=== PATIENT | female | born 1955 | race Caucasian/White ===

== ENCOUNTER → 2020-02-27 12:01 | Outpatient (BNVA) | payer OTHER, SELFPAY | PROVIDERS: PCP Internal Medicine; Referring Provider Internal Medicine; Visit Provider Nurse Practitioner Family | DX: I25.10 Atherosclerotic heart disease of native coronary artery without angina pectoris (principal); I42.9 Cardiomyopathy, unspecified; I11.0 Hypertensive heart disease with heart failure; I50.22 Chronic systolic (congestive) heart failure; E78.5 Hyperlipidemia, unspecified; E11.9 Type 2 diabetes mellitus without complications; Z79.899 Other long term (current) drug therapy; Z45.02 Encounter for adjustment and management of automatic implantable cardiac defibrillator; Z95.1 Presence of aortocoronary bypass graft; Z95.5 Presence of coronary angioplasty implant and graft | CPT/HCPCS: 93005; 99212 ==

== ENCOUNTER → 2020-04-25 12:38 | Outpatient (REF) | payer OTHER, SELFPAY ==
--- NOTE | 2020-04-25 12:43 | CA_ITS ---
Transthoracic Echocardiogram Patient (Last, First, Middle): La Nena Castro M Gender: Female Date of : 1955 Age: 65 Procedure Date: 04/25/2020 Procedure Type: Transthoracic Echocardiogram Location: OP Height: 149.86 cm Weight: 99.34 kg BSA: 1.92 m2 Heart Rate: bpm BP: 122 / 80 mmHg Field Sales Engineer: GRZEGORZ Referring MD: Mariel Arellano [employer]ING WORKER-C Symptoms: I42.9 - Cardiomyopathy, unspecified Study Quality: Fair/Contrast ECG Rhythm: Sinus Conclusions: - The left ventricular systolic function is moderately decreased. The visually estimated ejection fraction is between 30-35%. - Evidence suggests grade II (moderate) diastolic dysfunction. - There is moderate aortic valve stenosis. The peak aortic velocity is 2.17 m/s with a calculated peak gradient of 19 mmHg. The mean gradient is 10 mmHg. The aortic valve area is 1.07 cm2. There is no aortic valve regurgitation. Dimensionless index 0.31. Stroke volume index 26ml/m2. Lower than expected gradients from diminished stroke volume. - Mild pulmonary hypertension is present. Findings Procedure Information Contrast agent, definity, is being given per protocol without apparent complications. Left Ventricle Normal left ventricular cavity size. There is mildly increased left ventricular wall thickness. The left ventricular systolic function is moderately decreased. The visually estimated ejection fraction is between 30 35%. There is moderate global hypokinesis. E/E prime ratio is >15, consistent with elevated filling pressures. Evidence suggests grade II (moderate) diastolic dysfunction. Right Ventricle Normal right ventricular cavity size and systolic function. There is a pacemaker wire seen in the right ventricle. Atria The left atrium is mildly dilated. The right atrium is normal in size. Aortic Valve The aortic valve was not well visualized. There is mild calcification of the aortic valve. There is moderate aortic valve stenosis. The peak aortic velocity is 2.17 m/s with a calculated peak gradient of 19 mmHg. The mean gradient is 10 mmHg. The aortic valve area is 1.07 cm2. There is no aortic valve regurgitation. Dimensionless index 0.31. Stroke volume index 26ml/m2. Mitral Valve There is mild mitral annular calcification. There is no mitral valve regurgitation. There is no mitral valve stenosis. Pulmonic Valve The pulmonic valve was not well visualized. Tricuspid Valve Normal tricuspid valve structure. There is mild tricuspid valve regurgitation. The right ventricular systolic pressure is 36 mmHg. Mild pulmonary hypertension is present. Great Vessels The aortic annulus, sinuses of valsalva, and asc aorta are normal in size. Venous The inferior vena cava is normal in size and collapses greater than 50% with inspiration. Pericardium/Pleural There is no evidence of pericardial effusion. Prior Study Comparison Changes noted compared to prior study dated: 02/23/2019. See comments on aortic valve. Not previously described. Measurements 2D Linear Measurements IVSd: 1.10 0.6-0.9/0.6-1.0 cm LVIDd: 5.36 3.9-5.3/4.2-5.9 cm LVIDd Index: 2.79 2.4-3.2/2.2-3.1 cm/m2 LVIDs: 4.24 2.0-3.6 cm LVPWd: 1.11 0.7-1.1 cm Ao Root: 3.00 2.1-3.5 cm LA Diam: 3.70 2.7-3.8/3.0-4.0 cm LAIDs Index: 1.93 1.5-2.3 cm/m2 LV Mass: 291.00 67-162/88-224 g LV Mass Index: 151.56 43-95/49-115 g/m2 LVOT Diam: 2.00 3.0+(-)1.3 cm 2D Systolic Function EF 4C: 29.80 >55% EF 2C: 36.60 >55% EF BiP: 32.50 >55% Mitral Valve MV Pk E: 1.06 MV PK A: 0.88 MV Decel Time: 190.00 E/A: 1.20 E'Lateral: 3.00 E'Medial: 5.13 E/E' Med: 20.70 E/E' Lat: 35.30 PHT: 56.00 MVA PHT: 3.93 Decel [place]: 5.56 Aortic Valve AoV Pk Jaswinder: 2.17 AoV Mn Jaswinder: 1.44 AoV VTI: 0.47 AoV Pk Grad: 19.00 Aov Mn Grad: 10.00 DONNA Cont.VTI: 1.07 LVOT LVOT Pk Jaswinder: 0.67 LVOT Mn Jaswinder: 0.43 LVOT VTI: 0.16 LVOT Pk Grad: 2.00 LVOT Mn Grad: 1.00 LVOT Diam: 2.00 LVOT Area: 3.14 Diastolic Function MV Pk E: 1.06 MV Pk A: 0.88 E/A: 1.20 E'Medial: 5.13 E/E' Med: 20.70 E' Laterial: 3.00 E/E' Lat: 35.30 Tricuspid Valve TR Pk Jaswinder: 2.88 TR Pk Grad: 33.00 RA Press: 3.00 RVSP: 36.00 Great Vessels Aorta Ao Root-2D: 3.00 2.0-3.7 cm Ao Asc: 2.50 2.1-3.4 cm Ao Arch: 2.70 Updated in Other Vendor System with Status of Final Korey Cazares MD electronically signed on 04/28/2020 1:45:34 PM with status of Final
== END ==
LOC: HO.CARD 12:38
PROVIDERS: PCP Internal Medicine; Visit Provider Nurse Practitioner Family
DX: I42.9 Cardiomyopathy, unspecified (principal)
CPT/HCPCS: 93306; Q9957

== ENCOUNTER → 2020-05-10 10:01 | Outpatient (BNVA) | payer OTHER, SELFPAY | PROVIDERS: PCP Internal Medicine; Visit Provider Nurse Practitioner Family | DX: I42.9 Cardiomyopathy, unspecified (principal); I25.10 Atherosclerotic heart disease of native coronary artery without angina pectoris; I50.22 Chronic systolic (congestive) heart failure; I11.0 Hypertensive heart disease with heart failure; E78.5 Hyperlipidemia, unspecified; E11.9 Type 2 diabetes mellitus without complications; I47.2 Ventricular tachycardia; Z95.5 Presence of coronary angioplasty implant and graft; Z95.810 Presence of automatic (implantable) cardiac defibrillator; Z95.1 Presence of aortocoronary bypass graft | CPT/HCPCS: 99212 ==

== ENCOUNTER → 2020-05-30 08:11 | Outpatient (REF) | payer OTHER, SELFPAY ==
--- NOTE | ~2020-05-30 | NM_ITS ---
Lexiscan Myocardial perfusion study Indication: History of coronary artery disease, bypass surgery, cardiomyopathy, assess for ischemia Technique: The patient was brought in for a Lexiscan perfusion study on 05/30/2020 and was injected 0.4 mg of Lexiscan intravenously. Within a minute of this injection 30 mCi of sestamibi was given intravenously. Images were obtained using the SPECT gamma camera interlaced with the gating device. Images were obtained in supine position. Resting perfusion study was performed on 06/21/2020. Patient was administered 30 mCi of sestamibi intravenously at rest. Images were then obtained in supine position. Total DLP 94mGy-cm. Images were processed with the software and compared side to side in short axis, horizontal long axis and vertical long axis views. Findings: Raw acquisition was reviewed. The stress perfusion study showed diminished tracer uptake along the inferior wall and the inferior apex. With CT attenuation correction, there is improvement in this area but the apical defect still persists. The gated study shows diminished LV systolic function with calculated LVEF of 21%. LV cavity is dilated in size. The gated study shows globally diminished wall thickening and contraction of segments. Resting study shows diminished tracer uptake along the distal part of anterior wall as well as mid to distal inferior/inferolateral wall. With CT attenuation correction these areas improves significantly, suggestive of attenuation artifact. Gating at rest reveals globally reduced wall motion with ejection fraction at 23%. The findings are consistent with no reversible defects. Small, fixed apical defect. NM/NM flaco perf SPECT rest & str Impression: 1. Myocardial perfusion imaging study shows no evidence of any ischemia. Small fixed defect in the apex that could be from a prior infarct. 2. Gated LVEF is 21% during stress and 23% during rest. 3. Transient ischemic dilatation not present but LV cavity is dilated. EKG component of the test reported separately.
--- NOTE | 2020-05-30 08:26 | CA_ITS ---
Acquisition Time: 2020-05-30 08:59:22 Total Exercise Time: 00:02:00 Test Indications: Abnormal ECG Medications: ATORVASTATIN CARVEDILOL FUROSEMIDE LISINOPRIL HYPERLIPIDEMIA Protocol: LEXISCAN Max HR: 104 BPM 67% of Pred: 154 BPM Max BP: 142/082 mmHG Max Work Load: 1.0 METS Pharmacological stress test with Lexiscan injection, while sitting, with chest pressure post injection, with isolated PVC, with normotensvie response to injection, with nondiagnostic EKG for ischemia. In recovery she reported residual mild chest pressure and was treated with Aminophylline 75mg IVP to reverse Lexiscan with improvement in symptom. Nuclear images pending. Test reviewed with Dr Martino. Referred By: Mariel Arellano Overread By: MARIEL ARELLANO
[2020-05-30 09:26] LABS: B Type Natriuretic Peptide 670 pg/mL (<100)
[2020-05-30 09:28] LABS: Anion Gap 17 (12-20); Blood Urea Nitrogen 18 mg/dL (9-16); Carbon Dioxide 24 mmol/L (22-29); Chloride 108 mmol/L (96-108); Estimated Glomerular Filt Rate 49; Glucose Random 140 mg/dL (60-115); Magnesium 2.1 mg/dL (1.6-2.6); Potassium 4.6 mmol/L (3.3-5.1); Sodium 144 mmol/L (135-145)
== END ==
LOC: HO.CARD 08:11
PROVIDERS: PCP Internal Medicine; Visit Provider Nurse Practitioner Family
DX: I42.9 Cardiomyopathy, unspecified (principal); I47.2 Ventricular tachycardia; I50.22 Chronic systolic (congestive) heart failure
CPT/HCPCS: 36415; 78452; 80048; 83735; 83880; 93017; A9500; J0280; J2785

== ENCOUNTER → 2020-06-26 10:46 | Outpatient (BNVA) | payer OTHER, SELFPAY | PROVIDERS: Visit Provider Nurse Practitioner Family | DX: I10 Essential (primary) hypertension (principal); E11.9 Type 2 diabetes mellitus without complications; Z95.1 Presence of aortocoronary bypass graft | CPT/HCPCS: Q3014 ==

== ENCOUNTER 2020-07-21 20:59 | Inpatient (IN) | payer OTHER, SELFPAY ==
--- NOTE | ~2020-07-21 | XR_ITS ---
EXAMINATION: XR CHEST CLINICAL INFORMATION: Shortness of breath COMPARISON: 04/07/2018 TECHNIQUE: Frontal view of the chest was obtained. FINDINGS: Again seen is mild cardiomegaly and a 3-lead pacemaker. Previously, only a single lead has been present. There are new bilateral small effusions and new prominent interstitial markings throughout with some more focal areas of patchy density present at the right and left lung base. The 1.9 cm patchy density at the right lung base appears slightly nodular in appearance XR/XR chest 1V IMPRESSION: Cardiomegaly with small bilateral pleural effusions and increased interstitial markings suggesting CHF and mild interstitial edema. Bibasilar opacities could be superimposed infiltrates. Rounded area of abnormality at right lung base needs to be followed on future radiographs (in 4-6 weeks) for clearing.
--- NOTE | ~2020-07-21 | CT_ITS ---
EXAMINATION: CT CHEST WITHOUT CONTRAST CLINICAL INFORMATION: Shortness breath. Concern for infiltrates. Follow-up abnormal exam. COMPARISON: 07/21/2020. TECHNIQUE: Contiguous axial thin section helical images of the chest were performed without contrast. The data set was reformatted in the coronal and sagittal planes and reviewed on an independent workstation. The examination is significantly limited due to the lack of IV contrast. DLP: 346 mGy-cm. FINDINGS: The examination is significantly limited due to the lack of IV contrast. The heart is of stable size with unchanged pacer leads. There is no pericardial effusion. There is a pretracheal lymph node on image 22/66 measuring approximately 15 mm in short axis with a fatty notch. Evaluation for hilar lymphadenopathy is significantly limited due to the lack of IV contrast. No enlarged axillary lymph nodes are demonstrable. There are no chest wall masses. Review of lung windows demonstrates that there are small bilateral pleural effusions. There are no pneumothoraces. There is nonspecific ground glass opacification within the right middle lobe and both lower lobes. Images of the upper abdomen demonstrate that the liver is of normal size and attenuation without focal lesions. Normal adrenal glands are identified. Bone windows: Neither sclerotic nor lytic bone lesions are identified. CT/CT chest wo con IMPRESSION: As stated above, significantly limited exam due to the lack of IV contrast. Small bilateral pleural effusions with nonspecific bilateral lower lobe and right middle lobe ground glass opacification. Enlarged lower pretracheal lymph node, though a fatty hilar notch is demonstrable. Automated exposure control (Care Dose) Adjustment of the mA and/or kv according to patient size (this includes techniques or standardized protocols for targeted exams where dose is matched to indication / reason for exam; i.e. extremities or head).
[2020-07-21 21:09] VITALS: BP 183/81; BP 183/92; PULSE 87; PULSE 90; RESP 18; TEMP 37.4; O2SAT 90; O2SAT 92; BMI 43.7
--- NOTE | 2020-07-21 21:18 | ED.SOB ---
HPI - SOB/Dyspnea General Chief Complaint: Dyspnea Stated Complaint: Diff breathing,HTN Time Seen by Provider: 07/21/20 21:16 Source: patient Mode of arrival: EMS History of Present Illness HPI Narrative: This is a 65-year-old female who presents via EMS for increasing shortness of breath over the past couple of days and denies any associated fevers, chills, cough, sore throat, COVID-19 exposure, chest pain/palpitations. Patient states that she has COPD and denies history of CHF (although on review of medications patient is prescribed Lasix). Patient denies any orthopnea or increase in bilateral lower leg swelling. Review of echo on 04/25/2020 shows EF 30-35% as well as grade 2 diastolic dysfunction. Patient is not on home oxygen but EMS stated that patient was low 90% upon arrival. Patient denies use of home oxygen but does wear CPAP at night. Related Data Home Medications Medication Instructions Recorded Confirmed atorvastatin 80 mg tablet 80 mg PO DAILY 02/27/20 07/21/20 furosemide 20 mg tablet 20 mg PO DAILY 02/27/20 07/21/20 insulin aspart U-100 100 unit/mL 4 - 16 unit SUBCUT TID 06/26/20 07/21/20 (3 mL) subcutaneous pen citalopram 20 mg PO DAILY 07/21/20 07/21/20 insulin glargine 25 unit SUBCUT BEDTIME 07/21/20 07/21/20 ipratropium-albuterol [Combivent 1 puff INHALATION QID PRN 07/21/20 07/21/20 Respimat] Previous Rx's Medication Instructions Recorded rivaroxaban 20 mg tablet 20 mg PO DAILY 90 Days #90 tab 02/27/20 carvedilol 25 mg tablet 25 mg PO BID 90 Days #180 tab 03/29/20 lisinopril 5 mg tablet 5 mg PO DAILY 90 Days #90 tab 06/07/20 Allergies Allergy/AdvReac Type Severity Reaction Status Date / Time No Known Allergies Allergy Unverified 01/12/20 14:55 Review of Systems Review of Systems: Pertinent positives and negatives as stated in HPI 10 point review of systems is otherwise negative. PMFSH Past Medical History Source: nursing notes reviewed Medical History Biventricular ICD (implantable cardioverter-defibrillator) in place CAD (coronary artery disease) Cardiomyopathy Chronic systolic heart failure Diabetes mellitus HLD (hyperlipidemia) HTN (hypertension) TAQUERIA (obstructive sleep apnea) Surgical History History of cardiac cath History of cholecystectomy Hx of appendectomy Hx of CABG Hx of cardiac cath Hx of cardiac cath Stented coronary artery Family History Family History Father No problems noted. Mother No problems noted. Social History Social History Alcohol intake: never Smoking Status: Former smoker Use of substances other than those prescribed or required for medical reasons: No Advance Directives: No Advance Directives Information Provided: Yes Physical Exam Vital Signs: Vital Signs: Last Vital Signs Temp 97.6 F 07/21/20 23:38 Pulse 78 07/21/20 23:38 Resp 20 07/21/20 23:38 BP 155/87 H 07/21/20 23:38 Pulse Ox 97 07/21/20 23:38 Body Mass Index 43.7 VITAL SIGNS: Reviewed. GENERAL: Well developed, well nourished, in no acute distress. HEAD: Normocephalic/atraumatic NOSE: Nares patent bilateral OROPHARYNX: no oral lesions noted, posterior pharynx clear , dry mucous NECK: Supple, no adenopathy LUNGS: Mild bilateral expiratory wheeze with questionable rales, tachypnea noted with mild increased work of breathing and nasal cannula in place Normal breath sounds. No adventitious sounds or accessory muscle use. SpO2<92> on 2 L of nasal cannula CARDIOVASCULAR: Regular rate and rhythm without noted murmurs, no JVD but mild bilateral lower leg 1+ pitting edema ABDOMEN: Obese, Soft, non-tender, non-distended with bowel sounds. MUSCULOSKELETAL: No tenderness, deformities, or effusions noted on gross inspection. EXTREMITIES: No cyanosis, clubbing or edema. SKIN: Inspection of the skin reveals no rashes, ulcerations, jaundice, pallor, or petechiae. NEUROLOGIC: Alert and oriented x 4. Course Course Course Narrative: This is a 65-year-old female with history and clinical presentation consistent with increasing dyspnea suggestive COPD exacerbation versus CHF and COVID-19/pneumonia are on the differential as well. - labs, chest x-ray, UA, Solu-Medrol, albuterol, Lasix Review of all investigations suggestive of CHF exacerbation and 40 mg of Lasix was provided. Due to questionable infiltrates on chest x-ray patient will undergo COVID-19 testing as well as CT of chest to further evaluate chest x-ray findings. Patient was also empirically treated on arrival for COPD exacerbation with steroids and inhaler treatment. There is noted increase in LFTs felt to be secondary to heart failure. Although the right bundle branch block was not noted on EKG comparison from 2018 is felt that this is not a new finding given patient's recent workup with Lexiscan and multiple device checks conducted by the Cardiology Department, unfortunately there were no more recent EKG comparisons. High sensitivity troponin is pending the patient has no complaints of chest pain or palpitations. This case was discussed with the inpatient hospitalist who is agreeable for admission. MDM - SOB/Dyspnea Lab Data Result diagrams: 07/21/20 21:55 07/21/20 21:55 Labs: Lab Results 07/21/20 07/21/20 07/21/20 Range/Units 21:55 21:55 21:55 WBC 11.2 H (4.8-10.8) X10*3/uL RBC 5.05 (4.20-5.50) X10*6/uL Hgb 15.3 (12.0-16.0) g/dl Hct 47.6 H (37-47) % MCV 94.3 (80-98) fL MCH 30.3 (27.0-33.0) pg MCHC 32.1 (31.0-35.0) g/dl RDW 16.2 H (11.0-16.0) % Plt Count 132 L (160-400) X10*3/uL MPV 12.3 (9.4-12.3) fL Immature Gran % (Auto) 0.4 (0.0-0.4) % Neut % (Auto) 66.5 (45-73) % Lymph % (Auto) 26.5 (20-40) % Garden % (Auto) 4.4 (2-11) % Eos % (Auto) 1.6 (0-4) % Baso % (Auto) 0.6 (0-2) % Lymph # (Auto) 3.0 (1.2-4.9) X10*3/uL [place] # (Auto) 0.5 (0.1-1.2) X10*3/uL Eos # (Auto) 0.2 (0.0-0.4) X10*3/uL Baso # (Auto) 0.1 (0.0-0.2) X10*3/uL Abs Immat Gran (auto) 0.04 H (0.00-0.03) X10*3/uL Absolute Neuts (auto) 7.5 (2.0-8.3) X10*3/uL Absolute Nucleated RBC 0.000 (0.0-0.012) X10*3/uL Nucleated RBC % (auto) 0.0 (0.0-0.2) /100WBC VBG pH (7.32-7.43) VBG pCO2 mmHg VBG pO2 mmHg VBG HCO3 (22-26) mmol/L VBG O2 Saturation % VBG Base Excess mmol/L Sodium 141 (135-145) mmol/L Potassium 3.8 (3.3-5.1) mmol/L Chloride 107 (96-108) mmol/L Carbon Dioxide 22 (22-29) mmol/L Anion Gap 16 (12-20) BUN 19 H (9-16) mg/dL Creatinine 0.84 (0.5-1.4) mg/dL Estim Creat Clear Calc 67.8 Estimated GFR > 60 Random Glucose 231 H D (60-115) mg/dL Lactic Acid (0.5-2.0) mmol/L Calcium 8.8 (8.4-10.2) mg/dL Total Bilirubin 1.9 H (0.0-1.0) mg/dL AST 33 H (5-31) U/L ALT 48 H (0-31) U/L Alkaline Phosphatase 126 H (39-117) U/L B-Natriuretic Peptide 1425 H (<100) pg/mL Total Protein 6.9 (6.5-8.0) g/dL Albumin 4.2 (3.5-5.0) g/dL Urine Color Urine Appearance Urine pH (5.0-8.0) Ur Specific [place] (1.005-1.025) Urine Protein (NEG-TRACE) MG/DL Urine Glucose (UA) (NEG) MG/DL Urine Ketones (NEG) MG/DL Urine Blood (NEG) Urine Nitrite (NEG) Ur Leukocyte Esterase (NEG) Urine RBC (0) /HPF Urine WBC (0-4) /HPF Ur Squamous Epith Cells /LPF Urine Bacteria /LPF Coronavirus (PCR) Influenza Type A (PCR) Influenza Type B (PCR) RSV RNA Qual (PCR) 07/21/20 07/21/20 07/21/20 Range/Units 21:56 21:56 22:32 WBC (4.8-10.8) X10*3/uL RBC (4.20-5.50) X10*6/uL Hgb (12.0-16.0) g/dl Hct (37-47) % MCV (80-98) fL MCH (27.0-33.0) pg MCHC (31.0-35.0) g/dl RDW (11.0-16.0) % Plt Count (160-400) X10*3/uL MPV (9.4-12.3) fL Immature Gran % (Auto) (0.0-0.4) % Neut % (Auto) (45-73) % Lymph % (Auto) (20-40) % Garden % (Auto) (2-11) % Eos % (Auto) (0-4) % Baso % (Auto) (0-2) % Lymph # (Auto) (1.2-4.9) X10*3/uL [place] # (Auto) (0.1-1.2) X10*3/uL Eos # (Auto) (0.0-0.4) X10*3/uL Baso # (Auto) (0.0-0.2) X10*3/uL Abs Immat Gran (auto) (0.00-0.03) X10*3/uL Absolute Neuts (auto) (2.0-8.3) X10*3/uL Absolute Nucleated RBC (0.0-0.012) X10*3/uL Nucleated RBC % (auto) (0.0-0.2) /100WBC VBG pH (7.32-7.43) VBG pCO2 mmHg VBG pO2 mmHg VBG HCO3 (22-26) mmol/L VBG O2 Saturation % VBG Base Excess mmol/L Sodium (135-145) mmol/L Potassium (3.3-5.1) mmol/L Chloride (96-108) mmol/L Carbon Dioxide (22-29) mmol/L Anion Gap (12-20) BUN (9-16) mg/dL Creatinine (0.5-1.4) mg/dL Estim Creat Clear Calc Estimated GFR Random Glucose (60-115) mg/dL Lactic Acid 1.5 (0.5-2.0) mmol/L Calcium (8.4-10.2) mg/dL Total Bilirubin (0.0-1.0) mg/dL AST (5-31) U/L ALT (0-31) U/L Alkaline Phosphatase (39-117) U/L B-Natriuretic Peptide (<100) pg/mL Total Protein (6.5-8.0) g/dL Albumin (3.5-5.0) g/dL Urine Color YELLOW Urine Appearance HAZY Urine pH 6.5 (5.0-8.0) Ur Specific [place] 1.015 (1.005-1.025) Urine Protein 1+ H (NEG-TRACE) MG/DL Urine Glucose (UA) 250 H (NEG) MG/DL Urine Ketones NEG (NEG) MG/DL Urine Blood 1+ H (NEG) Urine Nitrite NEG (NEG) Ur Leukocyte Esterase NEG (NEG) Urine RBC 1-4 (0) /HPF Urine WBC 0-2 (0-4) /HPF Ur Squamous Epith Cells TRACE /LPF Urine Bacteria 4+ /LPF Coronavirus (PCR) Cancelled Influenza Type A (PCR) Cancelled Influenza Type B (PCR) Cancelled RSV RNA Qual (PCR) Cancelled 07/21/20 07/21/20 Range/Units 22:56 23:51 WBC (4.8-10.8) X10*3/uL RBC (4.20-5.50) X10*6/uL Hgb (12.0-16.0) g/dl Hct (37-47) % MCV (80-98) fL MCH (27.0-33.0) pg MCHC (31.0-35.0) g/dl RDW (11.0-16.0) % Plt Count (160-400) X10*3/uL MPV (9.4-12.3) fL Immature Gran % (Auto) (0.0-0.4) % Neut % (Auto) (45-73) % Lymph % (Auto) (20-40) % Garden % (Auto) (2-11) % Eos % (Auto) (0-4) % Baso % (Auto) (0-2) % Lymph # (Auto) (1.2-4.9) X10*3/uL [place] # (Auto) (0.1-1.2) X10*3/uL Eos # (Auto) (0.0-0.4) X10*3/uL Baso # (Auto) (0.0-0.2) X10*3/uL Abs Immat Gran (auto) (0.00-0.03) X10*3/uL Absolute Neuts (auto) (2.0-8.3) X10*3/uL Absolute Nucleated RBC (0.0-0.012) X10*3/uL Nucleated RBC % (auto) (0.0-0.2) /100WBC VBG pH 7.41 (7.32-7.43) VBG pCO2 40 mmHg VBG pO2 62 mmHg VBG HCO3 25 (22-26) mmol/L VBG O2 Saturation 91.0 % VBG Base Excess 1.4 mmol/L Sodium (135-145) mmol/L Potassium (3.3-5.1) mmol/L Chloride (96-108) mmol/L Carbon Dioxide (22-29) mmol/L Anion Gap (12-20) BUN (9-16) mg/dL Creatinine (0.5-1.4) mg/dL Estim Creat Clear Calc Estimated GFR Random Glucose (60-115) mg/dL Lactic Acid (0.5-2.0) mmol/L Calcium (8.4-10.2) mg/dL Total Bilirubin (0.0-1.0) mg/dL AST (5-31) U/L ALT (0-31) U/L Alkaline Phosphatase (39-117) U/L B-Natriuretic Peptide (<100) pg/mL Total Protein (6.5-8.0) g/dL Albumin (3.5-5.0) g/dL Urine Color Urine Appearance Urine pH (5.0-8.0) Ur Specific [place] (1.005-1.025) Urine Protein (NEG-TRACE) MG/DL Urine Glucose (UA) (NEG) MG/DL Urine Ketones (NEG) MG/DL Urine Blood (NEG) Urine Nitrite (NEG) Ur Leukocyte Esterase (NEG) Urine RBC (0) /HPF Urine WBC (0-4) /HPF Ur Squamous Epith Cells /LPF Urine Bacteria /LPF Coronavirus (PCR) NEGATIVE Influenza Type A (PCR) NEGATIVE Influenza Type B (PCR) NEGATIVE RSV RNA Qual (PCR) NEGATIVE ECG Data Attestation: I personally reviewed and interpreted this ECG as follows: Prior ECG tracings: available for review (04/07/2018) Interpretation: Sinus rhythm, HR I 91, right bundle-branch block Discharge Plan Discharge Clinical Impression: Hypoxia Congestive heart failure Qualifiers: Heart failure type: combined systolic and diastolic Heart failure chronicity: acute Qualified Code(s): I50.41 - Acute combined systolic (congestive) and diastolic (congestive) heart failure Patient Disposition: Admitted As Inpatient
--- NOTE | 2020-07-21 21:45 | PC.NURSE ---
pt wished to ambulate to bathroom, this nurse ambulated patient with O2 tank to bathroom- pt was CLEMENT, urine obtained, patient ambulated back to room and had to stop while ambulating back to room due to CLEMENT, patient returned back to bed and was able to recover quickly- her O2 sat was 94% on 2L O2 NC even with the CLEMENT. Patient was paced in the 70s-80s on the monitoring tech, will continue to monitor.
--- NOTE | 2020-07-21 22:00 | PC.NURSE ---
labs drawn, pt medicated per order
[2020-07-21 22:04] LABS: MANUAL DIFF FLAG NO
[2020-07-21 22:05] LABS: Basophils Absolute Auto 0.1 X10*3/uL (0.0-0.2); Basophils Percent Auto 0.6 % (0-2); Eosinophils Absolute Auto 0.2 X10*3/uL (0.0-0.4); Eosinophils Percent Auto 1.6 % (0-4); Hematocrit 47.6 % (37-47); Hemoglobin 15.3 g/dl (12.0-16.0); Imm Gran Abs Auto 0.04 X10*3/uL (0.00-0.03); Imm Gran Pct Auto 0.4 % (0.0-0.4); Lymphocytes Percent Auto 26.5 % (20-40); Mean Corpuscular HGB Conc 32.1 g/dl (31.0-35.0); Mean Corpuscular Hemoglobin 30.3 pg (27.0-33.0); Mean Corpuscular Volume 94.3 fL (80-98); Mean Platelet Volume 12.3 fL (9.4-12.3); Monocytes Absolute Auto 0.5 X10*3/uL (0.1-1.2); Monocytes Percent Auto 4.4 % (2-11); Neutrophils Absolute Auto 7.5 X10*3/uL (2.0-8.3); Neutrophils Percent Auto 66.5 % (45-73); Platelet Count 132 X10*3/uL (160-400); Red Blood Count 5.05 X10*6/uL (4.20-5.50); Red Cell Distribution Width 16.2 % (11.0-16.0); White Blood Count 11.2 X10*3/uL (4.8-10.8)
[2020-07-21 22:07] LABS: Glucose Urine UA 250 MG/DL (NEG); Leukocyte Esterase Urine NEG (NEG); Nitrite Urine NEG (NEG); PH 6.5 (5.0-8.0); Specific Gravity - Urine 1.015 (1.005-1.025); Urine Blood 1+ (NEG); Urine Ketones NEG (NEG); Urine Protein 1+ MG/DL (NEG-TRACE)
[2020-07-21 22:11] LABS: Appearance Urine HAZY; Color Urine YELLOW
[2020-07-21] MEDS: methylPREDNISolone Sod Succ 125 MG/2 ML VIAL IVPUSH (22:19)
[2020-07-21 22:21] LABS: Lactic Acid 1.5 mmol/L (0.5-2.0)
--- NOTE | 2020-07-21 22:21 | PC.NURSE ---
pt medicated per order, rt called to administer albuterol as the ed is out of spacers to administer it ourself.
[2020-07-21] MEDS: Albuterol Sulfate 90 MCG 8 GM INHALER 4 PUFF INHALE (22:23)
[2020-07-21 22:26] VITALS: PULSE 85; O2SAT 97
[2020-07-21 22:27] LABS: Alanine Aminotransferase 48 U/L (0-31); Albumin Level 4.2 g/dL (3.5-5.0); Alkaline Phosphatase 126 U/L (39-117); Anion Gap 16 (12-20); Aspartate Amino Transferase 33 U/L (5-31); Bilirubin Total 1.9 mg/dL (0.0-1.0); Blood Urea Nitrogen 19 mg/dL (9-16); Calcium 8.8 mg/dL (8.4-10.2); Carbon Dioxide 22 mmol/L (22-29); Chloride 107 mmol/L (96-108); Creatinine Clr Calc Pharmacy 67.8; Estimated Glomerular Filt Rate > 60; Glucose Random 231 mg/dL (60-115); Potassium 3.8 mmol/L (3.3-5.1); Sodium 141 mmol/L (135-145); Total Protein 6.9 g/dL (6.5-8.0)
[2020-07-21 22:30] LABS: WBC Urine 0-2 /HPF (0-4)
[2020-07-21 22:31] LABS: Bacteria Urine 4+ /LPF; Squamous Epithelial Cell Urine TRACE /LPF
[2020-07-21 22:32] LABS: B Type Natriuretic Peptide 1425 pg/mL (<100)
[2020-07-21] MEDS: Furosemide 40 MG/4 ML VIAL IVPUSH (22:58)
[2020-07-21 23:00] VITALS: BP 123/101; PULSE 83; RESP 18; TEMP 36.4; O2SAT 98
[2020-07-21 23:21] VITALS: RESP 18
[2020-07-21 23:38] VITALS: BP 155/87; PULSE 78; RESP 20; TEMP 36.4; O2SAT 97
[2020-07-21 23:51] LABS: Influenza A PCR NEGATIVE (Negative); Influenza B PCR NEGATIVE (Negative); Resp Syncy Virus RNA Qual PCR NEGATIVE (Negative); SARS COV2 PCR INHOUSE NEGATIVE (Negative)
[2020-07-21 23:56] LABS: Venous Blood Gas Refer to POC result
[2020-07-21 23:58] LABS: VBG Base Excess 1.4 mmol/L; VBG HCO3 25 mmol/L (22-26); VBG pCO2 40 mmHg; VBG pH 7.41 (7.32-7.43); VBG pO2 62 mmHg
[2020-07-22] VITALS (9 sets, daily range): BP systolic 112–179; BP diastolic 51–72; PULSE 66–117; RESP 15–18; TEMP 36.1–36.6; O2SAT 94–98; BMI 43.7; BMI 43.0
--- NOTE | 2020-07-22 | ECG_ITS ---
Test Reason : REPEAT Blood Pressure : / mmHG Vent. Rate : 076 BPM Atrial Rate : 076 BPM P-R Int : 112 ms QRS Dur : 186 ms QT Int : 550 ms P-R-T Axes : 099 233 217 degrees QTc Int : 618 ms A sensed V paced rhythm (possibly BiV) Abnormal ECG No significant changes when compared with the previous EKG of 07 apr 2018 Referred By: Deborah Muhammad Electronically Signed By:BATSHEVA POLANCO
--- NOTE | 2020-07-22 00:01 | PC.NURSE ---
Report received. care assumed at 2300. pt alert and oriented. skin wpd. clear speech. rr even and unlabored. all the w/u completed. hospitalist at bedside for eval. med rec done. weaned o2 at room air but dropped down to 90%. 2 l oxygen applied back via nc. o2 maintaining. 97%, 2nd iv line established to 20g in right forearm. awaiting for bed assignment. v-paced on the monitor.
[2020-07-22 00:22] LABS: Troponin-I High Sensitivity 238.5 ng/L (<3.5-17.0)
[2020-07-22] MEDS: Piperacillin Sodium/Tazobactam 3.375 GM in 0.9 % Sodium Chloride 50 ML IV (00:30)
[2020-07-22] MEDS: 0.9 % Sodium Chloride Flush 3 ML SYRINGE IVFLUSH ×4 (01:24→23:22)
[2020-07-22 01:40] LABS: Troponin-I High Sensitivity 214.2 ng/L (<3.5-17.0)
--- NOTE | 2020-07-22 01:44 | PC.NURSE ---
Report given to vitaly. pt is ready to be transferred.
[2020-07-22 05:40] LABS: Basophils Percent Auto 0.2 % (0-2); Red Cell Distribution Width 16.3 % (11.0-16.0); SCAN SMEAR FLAG 1
[2020-07-22 05:42] LABS: Hematocrit 47.2 % (37-47); Hemoglobin 15.6 g/dl (12.0-16.0); Imm Gran Abs Auto 0.07 X10*3/uL (0.00-0.03); Imm Gran Pct Auto 0.9 % (0.0-0.4); Lymphocytes Absolute Auto 1.2 X10*3/uL (1.2-4.9); Lymphocytes Percent Auto 14.7 % (20-40); Mean Corpuscular HGB Conc 33.1 g/dl (31.0-35.0); Mean Corpuscular Hemoglobin 30.9 pg (27.0-33.0); Mean Corpuscular Volume 93.5 fL (80-98); Mean Platelet Volume 12.8 fL (9.4-12.3); Monocytes Absolute Auto 0.1 X10*3/uL (0.1-1.2); Neutrophils Absolute Auto 6.8 X10*3/uL (2.0-8.3); Neutrophils Percent Auto 83.2 % (45-73); Platelet Count 129 X10*3/uL (160-400); Red Blood Count 5.05 X10*6/uL (4.20-5.50); White Blood Count 8.2 X10*3/uL (4.8-10.8)
[2020-07-22 06:01] LABS: MANUAL DIFF FLAG NO; PLT ABN DIST 1
[2020-07-22 06:08] LABS: Anion Gap 20 (12-20); Blood Urea Nitrogen 16 mg/dL (9-16); Calcium 8.8 mg/dL (8.4-10.2); Carbon Dioxide 22 mmol/L (22-29); Chloride 101 mmol/L (96-108); Creatinine Clr Calc Pharmacy 64.7; Estimated Glomerular Filt Rate > 60; Glucose Random 384 mg/dL (60-115); Potassium 3.7 mmol/L (3.3-5.1); Sodium 139 mmol/L (135-145); Troponin-I High Sensitivity 193.2 ng/L (<3.5-17.0)
--- NOTE | 2020-07-22 06:09 | PM.IMHP ---
History of Present Illness Date of Service: 07/21/20 Chief Complaint: Shortness of breath This is a 65-year-old female with past medical history of CAD status post CABG x2, biventricular ICD, DM, CHF, HLD, HTN, who presented to the hospital complaints of shortness of breath with exertion only. Patient reports that her symptoms started day prior, has no cough, very minimal sputum production, no fever no chills, no abdominal pain nausea or vomiting, no diarrhea or constipation, no urinary symptoms, denies any lower extremity edema. She uses CPAP at bedtime so she has not noticed any orthopnea or PND. On arrival to the ED hemodynamically stable but found to have O2 of 90% on room air, otherwise no abnormal vitals. Currently on 2 L satting 95-97%. Labs are significant for WBC count of 11.2 , sodium of 141, potassium of 3.8, BUN of 19, creatinine of 0.8, bili of 1.9, AST of 33, ALT of 48, alk-phos of 126, initial high sensitivity troponin of to 38, BNP of 1425, UA that is positive for glucose, negative COVID-19 X-ray suggestive of pulmonary congestion and interstitial edema as well as bibasilar of pleural effusion CT of the chest shows bilateral pleural effusion, with nonspecific bilateral lower lobe and right middle lobe ground-glass opacification Past medical history as below and confirmed with patient Review of Systems Review of Systems: Yes all other systems are reviewed and are negative COUNTS INCLUDE 234 BEDS AT THE [facility] Medical History Biventricular ICD (implantable cardioverter-defibrillator) in place CAD (coronary artery disease) Cardiomyopathy Chronic systolic heart failure Diabetes mellitus HLD (hyperlipidemia) HTN (hypertension) TAQUERIA (obstructive sleep apnea) Family History Father No problems noted. Mother No problems noted. Pertinent family history: Cancer in mother Surgical History History of cardiac cath History of cholecystectomy Hx of appendectomy Hx of CABG Hx of cardiac cath Hx of cardiac cath Stented coronary artery Social History Household Members: Family Housing: House Do you presently have visiting nurse or other home services: No Alcohol intake: never Smoking Status: Former smoker Smoked in Last 30 Days: No Patient Interested in Nicotine Replacement: No Second Hand Smoke Exposure: No Use of substances other than those prescribed or required for medical reasons: No Currently Displaying Signs/Symptoms of Drug Intoxication Withdrawal: No Any prior treatment program specific to substance use: No Have you been hit, kicked, punched, or otherwise hurt by someone within the past year? If so, by whom?: No Do you feel safe in your current relationship?: Yes Is there a partner from a previous relationship who is making you feel unsafe now?: No Are you made to feel afraid or neglected: No Advance Directives: No Advance Directives Information Provided: Yes Do you have thoughts of harming others: None Do you have a plan to hurt others: No Plan Recently lost weight without trying: No Meds Allergies Allergy/AdvReac Type Severity Reaction Status Date / Time No Known Allergies Allergy Unverified 01/12/20 14:55 Active Medications: Current Medications Generic Name Dose Route Start Last Admin Trade Name Freq PRN Reason Stop Dose Admin Acetaminophen 650 mg 07/22/20 01:14 Acetaminophen 325 Mg Tablet PO Q6H PRN Pain, Mild (Pain Scale 1-3) Atorvastatin Calcium 80 mg 07/22/20 09:00 Atorvastatin Calcium 80 Mg Tablet PO DAILY [facility] Carvedilol 25 mg 07/22/20 09:00 Carvedilol 25 Mg Tablet PO BID [facility] Protocol Docusate Sodium 100 mg 07/22/20 01:14 Docusate Sodium 100 Mg Capsule PO DAILY PRN Constipation Furosemide 40 mg 07/22/20 09:00 Furosemide 40 Mg/4 Ml Vial IVPUSH DAILY [facility] Protocol Insulin Human Lispro 0 unit 07/22/20 07:30 Insulin Lispro 100 Unit/Ml 3 Ml Vial SUBCUT QIDACHS [facility] Protocol Lisinopril 5 mg 07/22/20 09:00 Lisinopril 5 Mg Tablet PO DAILY [facility] Protocol Non-Formulary Medication 4 - 16 unit 07/22/20 09:00 Insulin Aspart U-100 SUBCUT TID [facility] Ondansetron HCl 4 mg 07/22/20 01:14 Ondansetron Hcl 4 Mg/2 Ml Vial IVPUSH Q8H PRN Nausea and Vomiting Rivaroxaban 20 mg 07/22/20 09:00 Rivaroxaban 20 Mg Tablet PO DAILY [facility] Sodium Chloride 3 ml 07/22/20 01:14 07/22/20 01:24 0.9 % Sodium Chloride Flush 3 Ml Syringe IVFLUSH 3 ml QSHIFT [facility] Administration Home Medications Medication Instructions Recorded Confirmed Last Taken Type atorvastatin 80 mg tablet 80 mg PO DAILY 02/27/20 07/21/20 07/20/20 History furosemide 20 mg tablet 20 mg PO DAILY 02/27/20 07/21/20 07/14/20 06:00 History insulin aspart U-100 100 unit/mL 4 - 16 unit SUBCUT TID 06/26/20 07/21/20 07/20/20 20:00 History (3 mL) subcutaneous pen citalopram 20 mg PO DAILY 07/21/20 07/21/20 07/21/20 09:00 History insulin glargine 25 unit SUBCUT BEDTIME 07/21/20 07/21/20 07/20/20 History ipratropium-albuterol [Combivent 1 puff INHALATION QID PRN 07/21/20 07/21/20 Unknown History Respimat] Physical Exam Vital Signs and Narrative: Vital Signs: Last Vital Signs Temp 97 F 07/22/20 04:00 Pulse 73 07/22/20 04:00 Resp 16 07/22/20 04:00 BP 147/59 H 07/22/20 04:00 Pulse Ox 95 07/22/20 04:00 Body Mass Index 43.7 Const: General: cooperative and no acute distress Orientation/consciousness: patient oriented x3 Eyes: General: appearance normal, both eyes and all related structures Resp: Effort & Inspection: normal respiratory effort and able to speak in complete sentences Cardio: Rate: regular rate Rhythm: regular rhythm GI: Palpation (GI): Soft to palpation Auscultation: normal bowel sounds Skin: General skin exam: no rashes or lesions noted Neuro: General: patient oriented x3 Cognition (Neuro): normal cognition Extrem: General: Yes normal to inspection and Yes no pedal edema Results Labs CBC and Chem 7: 07/22/20 04:25 07/22/20 04:25 Labs: Laboratory Results - last 24 hr 07/21/20 07/21/20 07/21/20 21:55 21:55 21:55 MCV 94.3 MCH 30.3 MCHC 32.1 RDW 16.2 H Plt Count 132 L MPV 12.3 Immature Gran % (Auto) 0.4 Neut % (Auto) 66.5 Lymph % (Auto) 26.5 [place] % (Auto) 4.4 Eos % (Auto) 1.6 Baso % (Auto) 0.6 Lymph # (Auto) 3.0 [place] # (Auto) 0.5 Eos # (Auto) 0.2 Baso # (Auto) 0.1 Abs Immat Gran (auto) 0.04 H Absolute Neuts (auto) 7.5 Absolute Nucleated RBC 0.000 Nucleated RBC % (auto) 0.0 VBG pH VBG pCO2 VBG pO2 VBG HCO3 VBG O2 Saturation VBG Base Excess Anion Gap 16 Estim Creat Clear Calc 67.8 Estimated GFR > 60 Random Glucose 231 H D Lactic Acid Calcium 8.8 Total Bilirubin 1.9 H AST 33 H ALT 48 H Alkaline Phosphatase 126 H Troponin I High Sens 238.5 H B-Natriuretic Peptide 1425 H Total Protein 6.9 Albumin 4.2 Urine Color Urine Appearance Urine pH Ur Specific [place] Urine Protein Urine Glucose (UA) Urine Ketones Urine Blood Urine Nitrite Ur Leukocyte Esterase Urine RBC Urine WBC Ur Squamous Epith Cells Urine Bacteria Coronavirus (PCR) Influenza Type A (PCR) Influenza Type B (PCR) RSV RNA Qual (PCR) 07/21/20 07/21/20 07/21/20 21:56 21:56 22:32 MCV MCH MCHC RDW Plt Count MPV Immature Gran % (Auto) Neut % (Auto) Lymph % (Auto) [place] % (Auto) Eos % (Auto) Baso % (Auto) Lymph # (Auto) [place] # (Auto) Eos # (Auto) Baso # (Auto) Abs Immat Gran (auto) Absolute Neuts (auto) Absolute Nucleated RBC Nucleated RBC % (auto) VBG pH VBG pCO2 VBG pO2 VBG HCO3 VBG O2 Saturation VBG Base Excess Anion Gap Estim Creat Clear Calc Estimated GFR Random Glucose Lactic Acid 1.5 Calcium Total Bilirubin AST ALT Alkaline Phosphatase Troponin I High Sens B-Natriuretic Peptide Total Protein Albumin Urine Color YELLOW Urine Appearance HAZY Urine pH 6.5 Ur Specific [place] 1.015 Urine Protein 1+ H Urine Glucose (UA) 250 H Urine Ketones NEG Urine Blood 1+ H Urine Nitrite NEG Ur Leukocyte Esterase NEG Urine RBC 1-4 Urine WBC 0-2 Ur Squamous Epith Cells TRACE Urine Bacteria 4+ Coronavirus (PCR) Cancelled Influenza Type A (PCR) Cancelled Influenza Type B (PCR) Cancelled RSV RNA Qual (PCR) Cancelled 07/21/20 07/21/20 07/22/20 22:56 23:51 01:06 MCV MCH MCHC RDW Plt Count MPV Immature Gran % (Auto) Neut % (Auto) Lymph % (Auto) [place] % (Auto) Eos % (Auto) Baso % (Auto) Lymph # (Auto) [place] # (Auto) Eos # (Auto) Baso # (Auto) Abs Immat Gran (auto) Absolute Neuts (auto) Absolute Nucleated RBC Nucleated RBC % (auto) VBG pH 7.41 VBG pCO2 40 VBG pO2 62 VBG HCO3 25 VBG O2 Saturation 91.0 VBG Base Excess 1.4 Anion Gap Estim Creat Clear Calc Estimated GFR Random Glucose Lactic Acid Calcium Total Bilirubin AST ALT Alkaline Phosphatase Troponin I High Sens 214.2 H B-Natriuretic Peptide Total Protein Albumin Urine Color Urine Appearance Urine pH Ur Specific [place] Urine Protein Urine Glucose (UA) Urine Ketones Urine Blood Urine Nitrite Ur Leukocyte Esterase Urine RBC Urine WBC Ur Squamous Epith Cells Urine Bacteria Coronavirus (PCR) NEGATIVE Influenza Type A (PCR) NEGATIVE Influenza Type B (PCR) NEGATIVE RSV RNA Qual (PCR) NEGATIVE 07/22/20 07/22/20 07/22/20 04:25 04:25 04:25 MCV 93.5 MCH 30.9 MCHC 33.1 RDW 16.3 H Plt Count 129 L MPV 12.8 H Immature Gran % (Auto) 0.9 H Neut % (Auto) 83.2 H Lymph % (Auto) 14.7 L [place] % (Auto) 1.0 L Eos % (Auto) 0.0 Baso % (Auto) 0.2 Lymph # (Auto) 1.2 [place] # (Auto) 0.1 Eos # (Auto) 0.0 Baso # (Auto) 0.0 Abs Immat Gran (auto) 0.07 H Absolute Neuts (auto) 6.8 Absolute Nucleated RBC 0.000 Nucleated RBC % (auto) 0.0 VBG pH VBG pCO2 VBG pO2 VBG HCO3 VBG O2 Saturation VBG Base Excess Anion Gap 20 Estim Creat Clear Calc 64.7 Estimated GFR > 60 Random Glucose 384 H* Lactic Acid Calcium 8.8 Total Bilirubin AST ALT Alkaline Phosphatase Troponin I High Sens 193.2 H B-Natriuretic Peptide Total Protein Albumin Urine Color Urine Appearance Urine pH Ur Specific [place] Urine Protein Urine Glucose (UA) Urine Ketones Urine Blood Urine Nitrite Ur Leukocyte Esterase Urine RBC Urine WBC Ur Squamous Epith Cells Urine Bacteria Coronavirus (PCR) Influenza Type A (PCR) Influenza Type B (PCR) RSV RNA Qual (PCR) Imaging Radiologist's Impressions: Impressions Chest X-Ray 07/21/20 21:16 IMPRESSION: Cardiomegaly with small bilateral pleural effusions and increased interstitial markings suggesting CHF and mild interstitial edema. Bibasilar opacities could be superimposed infiltrates. Rounded area of abnormality at right lung base needs to be followed on future radiographs (in 4-6 weeks) for clearing. Chest CT 07/22/20 00:08 IMPRESSION: As stated above, significantly limited exam due to the lack of IV contrast. Small bilateral pleural effusions with nonspecific bilateral lower lobe and right middle lobe ground glass opacification. Enlarged lower pretracheal lymph node, though a fatty hilar notch is demonstrable. Automated exposure control (Care Dose) Adjustment of the mA and/or kv according to patient size (this includes techniques or standardized protocols for targeted exams where dose is matched to indication / reason for exam; i.e. extremities or head). Assessment and Plan (1) CHF exacerbation: Status: Acute (2) Transaminitis: Status: Acute (3) Dyspnea: Status: Acute (4) Leukocytosis: Status: Acute This is a 65-year-old female with past medical history of CHF who presents to the hospital with complaints of shortness of breath. Found to have evidence of CHF exacerbation # dyspnea - most likely secondary to CHF, less likely to be secondary to pneumonia, PE - patient has evidence of pulmonary congestion, elevated BNP, afebrile, no cough, minimal sputum production - will start her on Lasix for management of CHF, rest of management as below - currently on 2 L of oxygen for an O2 sat of 90% on room air # CHF exacerbation - patient on baseline 20 mg of Lasix at home - reports compliance with Lasix, low-sodium diet, no recent into icing factor - has elevated BNP, pulmonary congestion and interstitial edema on imaging as well as dyspnea on exertion Plan: - will start on IV Lasix daily, strict I&O, low-sodium diet, daily weight - last echo from 04/25/2020 showed ejection fraction of 30-35%, will repeat - hold off on Cardiology consult at this time # elevated liver enzymes - most likely secondary to heart failure - no abdominal pain or upper quadrant pain - will repeat lipid panel # leukocytosis - I do not believe the patient has acute infection, as she is febrile, has no cough, minimal sputum production - CT of the chest shows nonspecific infiltrates which I believe are secondary to pulmonary congestion - will follow CBC, if worsening WBC or develops fever, consider starting antibiotics # COPD - not in exacerbation - continue home inhalers # CAD status post CABG - continue carvedilol, lisinopril # diabetes - continue home insulin - will add low-dose sliding scale insulin - diabetic/low-sodium diet # hypertension - continue lisinopril Patient on anticoagulation, unclear why - did not mention history of VTE or arrhythmia DVT prophylaxis: Rivaroxaban
--- NOTE | 2020-07-22 06:41 | PC.NURSE ---
CRITICAL LAB RESULTS CALLED TO FLOOR AT [facility] 0620 THIS AM; TROP 193.2 (TRENDING DOWN FROM 238.5-214.2), AND A GLUCOSE OF 384. MESSAGE FORWARDED TO HOSPITALIST ON DUTY WITH NO NEW ORDERS SENT AFTER NOTED MD READ AND RESPONDED THANK YOU. WILL CONTINUE TO MONITOR.
[2020-07-22 07:33] LABS: Glucose, Whole Blood 335 mg/dL (60-115)
[2020-07-22 08:20] LABS: C Reactive Protein 1.91 mg/dL (< or = 0.50); Lactate Dehydrogenase 307 U/L (122-220); Magnesium 1.9 mg/dL (1.6-2.6)
[2020-07-22] MEDS: Insulin Lispro 100 UNIT/ML 3 ML VIAL SUBCUT ×4 (08:20→20:19)
[2020-07-22] MEDS: carvediloL 25 MG TABLET PO ×2 (08:21→20:18)
[2020-07-22] MEDS: Rivaroxaban 20 MG TABLET PO (08:21)
[2020-07-22] MEDS: Atorvastatin Calcium 80 MG TABLET PO (08:21)
[2020-07-22] MEDS: lisinopriL 5 MG TABLET PO (08:21)
[2020-07-22] MEDS: Furosemide 40 MG/4 ML VIAL IVPUSH (08:23)
[2020-07-22 08:41] LABS: Ferritin 195 ng/mL (10-250)
[2020-07-22 09:03] LABS: Alanine Aminotransferase 44 U/L (0-31); Albumin Level 4.1 g/dL (3.5-5.0); Alkaline Phosphatase 126 U/L (39-117); Aspartate Amino Transferase 29 U/L (5-31); Bilirubin Direct 0.8 mg/dL (0.0-0.5); Bilirubin Total 2.1 mg/dL (0.0-1.0); Total Protein 6.8 g/dL (6.5-8.0)
[2020-07-22 10:09] LABS: Adenovirus PCR Not Detected (Not Detect.); Bordetella parapertussis PCR Not Detected (Not Detect.); Bordetella pertussis PCR Not Detected (Not Detect.); Chlamydia pneumoniae PCR Not Detected (Not Detect.); Coronavirus 229E PCR Not Detected (Not Detect.); Coronavirus HKU1 PCR Not Detected (Not Detect.); Coronavirus NL63 PCR Not Detected (Not Detect.); Coronavirus OC43 PCR Not Detected (Not Detect.); Human metapneumovirus PCR Not Detected (Not Detect.); Influenza A PCR Not Detected (Not Detect.); Influenza B PCR Not Detected (Not Detect.); Mycoplasma pneumoniae PCR Not Detected (Not Detect.); Parainfluenza 1 PCR Not Detected (Not Detect.); Parainfluenza 2 PCR Not Detected (Not Detect.); Parainfluenza 3 PCR Not Detected (Not Detect.); Parainfluenza 4 PCR Not Detected (Not Detect.); RSV PCR Not Detected (Not Detect.); Rhino/Enterovirus PCR Not Detected (Not Detect.); SARS-CoV-2 PCR Not Detected (Not Detect.)
[2020-07-22 10:33] LABS: Procalcitonin 0.02 ng/mL
[2020-07-22 11:51] LABS: Glucose, Whole Blood 258 mg/dL (60-115)
--- NOTE | 2020-07-22 12:04 | PM.CNCAR ---
History of Present Illness History of Present Illness Date of Service: 07/22/20 Consult reason: congestive heart failure Chief complaint: CHF Exacerbation Narrative: This is a cardiology consultation regarding congestive heart failure. Patient follows up with Dr. Martino in our office. She has a history of hypertension, high lipids, diabetes, CAD, status post CABG, cardiomyopathy, status post Bi V ICD. She is currently admitted with shortness of breath. She states that she is normally able to walk without any difficulty but uses a cane. However, in the last few days she has been having increasing shortness of breath and hence she is admitted. No anginal-type chest pains. No dizzy spells or syncopal episodes. No significant leg swelling. She is being treated with IV diuretics for heart failure. We have been asked to see her for further input. Review of Systems Review of Systems: Yes all other systems are reviewed and are negative Cardiovascular: Cardiovascular: Reports as per HPI, Reports no additional cardiovascular complaints, Denies acrocyanosis, Denies cool extremities, Denies painful fingertips, Denies chest pain, Denies chest pain at rest, Denies diaphoresis, Denies syncope, Denies irregular heart rhythm, Denies claudication, Denies leg edema, Denies lightheadedness, Denies palpitations and Reports dyspnea Respiratory: Respiratory: Reports dyspnea Neurologic: Denies syncope Endocrine: Endocrine: Denies palpitations [facility] Past Medical History Medical History (Updated 07/22/20 @ 12:15 by Korey Cazares MD) Atherosclerotic cardiovascular disease Biventricular ICD (implantable cardioverter-defibrillator) in place CAD (coronary artery disease) Cardiomyopathy Chronic systolic heart failure Diabetes mellitus HLD (hyperlipidemia) HTN (hypertension) Non-rheumatic aortic stenosis TAQUERIA (obstructive sleep apnea) Family History Family History Father No problems noted. Mother No problems noted. Surgical History Surgical History (Updated 07/22/20 @ 12:14 by Korey Cazares MD) History of cardiac cath History of cholecystectomy Hx of appendectomy Hx of CABG Hx of cardiac cath Hx of cardiac cath Stented coronary artery Social History Social History Household Members: Family Housing: House Do you presently have visiting nurse or other home services: No Alcohol intake: never Smoking Status: Former smoker Smoked in Last 30 Days: No Patient Interested in Nicotine Replacement: No Second Hand Smoke Exposure: No Use of substances other than those prescribed or required for medical reasons: No Currently Displaying Signs/Symptoms of Drug Intoxication Withdrawal: No Any prior treatment program specific to substance use: No Have you been hit, kicked, punched, or otherwise hurt by someone within the past year? If so, by whom?: No Do you feel safe in your current relationship?: Yes Is there a partner from a previous relationship who is making you feel unsafe now?: No Are you made to feel afraid or neglected: No Advance Directives: No Advance Directives Information Provided: Yes Do you have thoughts of harming others: None Do you have a plan to hurt others: No Plan Recently lost weight without trying: No Meds Allergies Allergy/AdvReac Type Severity Reaction Status Date / Time No Known Allergies Allergy Unverified 01/12/20 14:55 Active Medications: Current Medications Generic Name Dose Route Start Last Admin Trade Name Freq PRN Reason Stop Dose Admin Acetaminophen 650 mg 07/22/20 01:14 Acetaminophen 325 Mg Tablet PO Q6H PRN Pain, Mild (Pain Scale 1-3) Atorvastatin Calcium 80 mg 07/22/20 09:00 07/22/20 08:21 Atorvastatin Calcium 80 Mg Tablet PO 80 mg DAILY WALLACE Administration Carvedilol 25 mg 07/22/20 09:00 07/22/20 08:21 Carvedilol 25 Mg Tablet PO 25 mg BID W[facility]ACE Administration Protocol Docusate Sodium 100 mg 07/22/20 01:14 Docusate Sodium 100 Mg Capsule PO DAILY PRN Constipation Furosemide 40 mg 07/22/20 09:00 07/22/20 08:23 Furosemide 40 Mg/4 Ml Vial IVPUSH 40 mg DAILY WALLACE Administration Protocol Insulin Human Lispro 0 unit 07/22/20 07:30 07/22/20 08:20 Insulin Lispro 100 Unit/Ml 3 Ml Vial SUBCUT 8 unit QIDACHS [facility] Administration Protocol Lisinopril 5 mg 07/22/20 09:00 07/22/20 08:21 Lisinopril 5 Mg Tablet PO 5 mg DAILY WALLACE Administration Protocol Ondansetron HCl 4 mg 07/22/20 01:14 Ondansetron Hcl 4 Mg/2 Ml Vial IVPUSH Q8H PRN Nausea and Vomiting Rivaroxaban 20 mg 07/22/20 09:00 07/22/20 08:21 Rivaroxaban 20 Mg Tablet PO 20 mg DAILY WALLACE Administration Sodium Chloride 3 ml 07/22/20 01:14 07/22/20 08:23 0.9 % Sodium Chloride Flush 3 Ml Syringe IVFLUSH 3 ml QSHIFT W[facility]ACE Administration Home Medications Medication Instructions Recorded Confirmed Last Taken Type atorvastatin 80 mg tablet 80 mg PO DAILY 02/27/20 07/21/20 07/20/20 History furosemide 20 mg tablet 20 mg PO DAILY 02/27/20 07/21/20 07/14/20 06:00 History insulin aspart U-100 100 unit/mL 4 - 16 unit SUBCUT TID 06/26/20 07/21/20 07/20/20 20:00 History (3 mL) subcutaneous pen citalopram 20 mg PO DAILY 07/21/20 07/21/20 07/21/20 09:00 History insulin glargine 25 unit SUBCUT BEDTIME 07/21/20 07/21/20 07/20/20 History ipratropium-albuterol [Combivent 1 puff INHALATION QID PRN 07/21/20 07/21/20 Unknown History Respimat] Physical Exam Vital Signs: Vital Signs: Last Vital Signs Temp 97.6 F 07/22/20 07:09 Pulse 69 07/22/20 08:21 Resp 16 07/22/20 07:09 BP 163/51 H 07/22/20 07:09 Pulse Ox 95 07/22/20 07:09 Body Mass Index 43.0 Const: General: cooperative, comfortable and no acute distress Orientation/consciousness: patient oriented x3 HENMT: Other: Unremarkable Neck: Neck: Yes normal visual inspection Chest: Chest palpation & inspection: normal inspection of the chest Resp: Auscultation: clear to auscultation bilaterally, no crackles and no wheezes Cardio: Jugular venous distension: no JVD Palpation: normal PMI Heart sounds: S1 normal heart sound present, S2 normal heart sound present, no gallops, Murmur heart sound present systolic at the right sternal border and no rubs GI: Palpation (GI): Soft to palpation Back/Spine/Pelvis: Other: unremarkable Skin: General skin exam: no rashes or lesions noted Neuro: General: patient oriented x3 Extrem: General: Yes no clubbing, cyanosis or edema Psych: Mental Status: mental status grossly normal Results Labs and Meds Result diagrams: 07/22/20 04:25 07/22/20 04:25 Lab results: Laboratory Results - last 24 hr 07/21/20 07/21/20 07/21/20 21:55 21:55 21:55 WBC 11.2 H RBC 5.05 Hgb 15.3 Hct 47.6 H MCV 94.3 MCH 30.3 MCHC 32.1 RDW 16.2 H Plt Count 132 L MPV 12.3 Immature Gran % (Auto) 0.4 Neut % (Auto) 66.5 Lymph % (Auto) 26.5 Miner % (Auto) 4.4 Eos % (Auto) 1.6 Baso % (Auto) 0.6 Lymph # (Auto) 3.0 Miner # (Auto) 0.5 Eos # (Auto) 0.2 Baso # (Auto) 0.1 Abs Immat Gran (auto) 0.04 H Absolute Neuts (auto) 7.5 Absolute Nucleated RBC 0.000 Nucleated RBC % (auto) 0.0 VBG pH VBG pCO2 VBG pO2 VBG HCO3 VBG O2 Saturation VBG Base Excess Sodium 141 Potassium 3.8 Chloride 107 Carbon Dioxide 22 Anion Gap 16 BUN 19 H Creatinine 0.84 Estim Creat Clear Calc 67.8 Estimated GFR > 60 POC Glucose Random Glucose 231 H D Lactic Acid Calcium 8.8 Magnesium Ferritin Total Bilirubin 1.9 H Direct Bilirubin AST 33 H ALT 48 H Alkaline Phosphatase 126 H Lactate Dehydrogenase Troponin I High Sens 238.5 H C-Reactive Protein B-Natriuretic Peptide 1425 H Total Protein 6.9 Albumin 4.2 Procalcitonin Urine Color Urine Appearance Urine pH Ur Specific Downs Urine Protein Urine Glucose (UA) Urine Ketones Urine Blood Urine Nitrite Ur Leukocyte Esterase Urine RBC Urine WBC Ur Squamous Epith Cells Urine Bacteria Respiratory Panel Duffy Adenovirus (Rapid PCR) B.pert (TEM-PCR) B.parapertussis DNA PCR C. pneumoniae DNA (PCR) Coronavirus (PCR) Coronavirus OC43 (PCR) Coronavirus HKU1 (PCR) Coronavirus 229E (PCR) Coronavirus NL63 (PCR) Human Metapneumovir PCR Influenza A (RT-PCR) Influenza Type A (PCR) Influenza B (RT-PCR) Influenza Type B (PCR) M. pneumoniae (PCR) Parainfluenza 1 (PCR) Parainfluenza 2 (PCR) Parainfluenza 3 (PCR) Parainfluenza 4 (PCR) RSV (PCR) RSV RNA Qual (PCR) Entero/Rhino (PCR) SARS-CoV-2 RNA (RT-PCR) 07/21/20 07/21/20 07/21/20 21:56 21:56 22:32 WBC RBC Hgb Hct MCV MCH MCHC RDW Plt Count MPV Immature Gran % (Auto) Neut % (Auto) Lymph % (Auto) Miner % (Auto) Eos % (Auto) Baso % (Auto) Lymph # (Auto) Miner # (Auto) Eos # (Auto) Baso # (Auto) Abs Immat Gran (auto) Absolute Neuts (auto) Absolute Nucleated RBC Nucleated RBC % (auto) VBG pH VBG pCO2 VBG pO2 VBG HCO3 VBG O2 Saturation VBG Base Excess Sodium Potassium Chloride Carbon Dioxide Anion Gap BUN Creatinine Estim Creat Clear Calc Estimated GFR POC Glucose Random Glucose Lactic Acid 1.5 Calcium Magnesium Ferritin Total Bilirubin Direct Bilirubin AST ALT Alkaline Phosphatase Lactate Dehydrogenase Troponin I High Sens C-Reactive Protein B-Natriuretic Peptide Total Protein Albumin Procalcitonin Urine Color YELLOW Urine Appearance HAZY Urine pH 6.5 Ur Specific Downs 1.015 Urine Protein 1+ H Urine Glucose (UA) 250 H Urine Ketones NEG Urine Blood 1+ H Urine Nitrite NEG Ur Leukocyte Esterase NEG Urine RBC 1-4 Urine WBC 0-2 Ur Squamous Epith Cells TRACE Urine Bacteria 4+ Respiratory Panel Duffy Adenovirus (Rapid PCR) B.pert (TEM-PCR) B.parapertussis DNA PCR C. pneumoniae DNA (PCR) Coronavirus (PCR) Cancelled Coronavirus OC43 (PCR) Coronavirus HKU1 (PCR) Coronavirus 229E (PCR) Coronavirus NL63 (PCR) Human Metapneumovir PCR Influenza A (RT-PCR) Influenza Type A (PCR) Cancelled Influenza B (RT-PCR) Influenza Type B (PCR) Cancelled M. pneumoniae (PCR) Parainfluenza 1 (PCR) Parainfluenza 2 (PCR) Parainfluenza 3 (PCR) Parainfluenza 4 (PCR) RSV (PCR) RSV RNA Qual (PCR) Cancelled Entero/Rhino (PCR) SARS-CoV-2 RNA (RT-PCR) 07/21/20 07/21/20 07/22/20 22:56 23:51 01:06 WBC RBC Hgb Hct MCV MCH MCHC RDW Plt Count MPV Immature Gran % (Auto) Neut % (Auto) Lymph % (Auto) Miner % (Auto) Eos % (Auto) Baso % (Auto) Lymph # (Auto) Miner # (Auto) Eos # (Auto) Baso # (Auto) Abs Immat Gran (auto) Absolute Neuts (auto) Absolute Nucleated RBC Nucleated RBC % (auto) VBG pH 7.41 VBG pCO2 40 VBG pO2 62 VBG HCO3 25 VBG O2 Saturation 91.0 VBG Base Excess 1.4 Sodium Potassium Chloride Carbon Dioxide Anion Gap BUN Creatinine Estim Creat Clear Calc Estimated GFR POC Glucose Random Glucose Lactic Acid Calcium Magnesium Ferritin Total Bilirubin Direct Bilirubin AST ALT Alkaline Phosphatase Lactate Dehydrogenase Troponin I High Sens 214.2 H C-Reactive Protein B-Natriuretic Peptide Total Protein Albumin Procalcitonin Urine Color Urine Appearance Urine pH Ur Specific Downs Urine Protein Urine Glucose (UA) Urine Ketones Urine Blood Urine Nitrite Ur Leukocyte Esterase Urine RBC Urine WBC Ur Squamous Epith Cells Urine Bacteria Respiratory Panel Duffy Adenovirus (Rapid PCR) B.pert (TEM-PCR) B.parapertussis DNA PCR C. pneumoniae DNA (PCR) Coronavirus (PCR) NEGATIVE Coronavirus OC43 (PCR) Coronavirus HKU1 (PCR) Coronavirus 229E (PCR) Coronavirus NL63 (PCR) Human Metapneumovir PCR Influenza A (RT-PCR) Influenza Type A (PCR) NEGATIVE Influenza B (RT-PCR) Influenza Type B (PCR) NEGATIVE M. pneumoniae (PCR) Parainfluenza 1 (PCR) Parainfluenza 2 (PCR) Parainfluenza 3 (PCR) Parainfluenza 4 (PCR) RSV (PCR) RSV RNA Qual (PCR) NEGATIVE Entero/Rhino (PCR) SARS-CoV-2 RNA (RT-PCR) 07/22/20 07/22/20 07/22/20 04:25 04:25 04:25 WBC 8.2 RBC 5.05 Hgb 15.6 Hct 47.2 H MCV 93.5 MCH 30.9 MCHC 33.1 RDW 16.3 H Plt Count 129 L MPV 12.8 H Immature Gran % (Auto) 0.9 H Neut % (Auto) 83.2 H Lymph % (Auto) 14.7 L Miner % (Auto) 1.0 L Eos % (Auto) 0.0 Baso % (Auto) 0.2 Lymph # (Auto) 1.2 Miner # (Auto) 0.1 Eos # (Auto) 0.0 Baso # (Auto) 0.0 Abs Immat Gran (auto) 0.07 H Absolute Neuts (auto) 6.8 Absolute Nucleated RBC 0.000 Nucleated RBC % (auto) 0.0 VBG pH VBG pCO2 VBG pO2 VBG HCO3 VBG O2 Saturation VBG Base Excess Sodium 139 Potassium 3.7 Chloride 101 Carbon Dioxide 22 Anion Gap 20 BUN 16 Creatinine 0.88 Estim Creat Clear Calc 64.7 Estimated GFR > 60 POC Glucose Random Glucose 384 H* Lactic Acid Calcium 8.8 Magnesium 1.9 Ferritin 195 Total Bilirubin Direct Bilirubin AST ALT Alkaline Phosphatase Lactate Dehydrogenase 307 H Troponin I High Sens 193.2 H C-Reactive Protein 1.91 H B-Natriuretic Peptide Total Protein Albumin Procalcitonin Urine Color Urine Appearance Urine pH Ur Specific Downs Urine Protein Urine Glucose (UA) Urine Ketones Urine Blood Urine Nitrite Ur Leukocyte Esterase Urine RBC Urine WBC Ur Squamous Epith Cells Urine Bacteria Respiratory Panel Duffy Adenovirus (Rapid PCR) B.pert (TEM-PCR) B.parapertussis DNA PCR C. pneumoniae DNA (PCR) Coronavirus (PCR) Coronavirus OC43 (PCR) Coronavirus HKU1 (PCR) Coronavirus 229E (PCR) Coronavirus NL63 (PCR) Human Metapneumovir PCR Influenza A (RT-PCR) Influenza Type A (PCR) Influenza B (RT-PCR) Influenza Type B (PCR) M. pneumoniae (PCR) Parainfluenza 1 (PCR) Parainfluenza 2 (PCR) Parainfluenza 3 (PCR) Parainfluenza 4 (PCR) RSV (PCR) RSV RNA Qual (PCR) Entero/Rhino (PCR) SARS-CoV-2 RNA (RT-PCR) 07/22/20 07/22/20 07/22/20 04:25 06:28 07:21 WBC RBC Hgb Hct MCV MCH MCHC RDW Plt Count MPV Immature Gran % (Auto) Neut % (Auto) Lymph % (Auto) Miner % (Auto) Eos % (Auto) Baso % (Auto) Lymph # (Auto) Miner # (Auto) Eos # (Auto) Baso # (Auto) Abs Immat Gran (auto) Absolute Neuts (auto) Absolute Nucleated RBC Nucleated RBC % (auto) VBG pH VBG pCO2 VBG pO2 VBG HCO3 VBG O2 Saturation VBG Base Excess Sodium Potassium Chloride Carbon Dioxide Anion Gap BUN Creatinine Estim Creat Clear Calc Estimated GFR POC Glucose 335 H Random Glucose Lactic Acid Calcium Magnesium Ferritin Total Bilirubin 2.1 H Direct Bilirubin 0.8 H AST 29 ALT 44 H Alkaline Phosphatase 126 H Lactate Dehydrogenase Troponin I High Sens C-Reactive Protein B-Natriuretic Peptide Total Protein 6.8 Albumin 4.1 Procalcitonin 0.02 Urine Color Urine Appearance Urine pH Ur Specific Downs Urine Protein Urine Glucose (UA) Urine Ketones Urine Blood Urine Nitrite Ur Leukocyte Esterase Urine RBC Urine WBC Ur Squamous Epith Cells Urine Bacteria Respiratory Panel Duffy Adenovirus (Rapid PCR) B.pert (TEM-PCR) B.parapertussis DNA PCR C. pneumoniae DNA (PCR) Coronavirus (PCR) Coronavirus OC43 (PCR) Coronavirus HKU1 (PCR) Coronavirus 229E (PCR) Coronavirus NL63 (PCR) Human Metapneumovir PCR Influenza A (RT-PCR) Influenza Type A (PCR) Influenza B (RT-PCR) Influenza Type B (PCR) M. pneumoniae (PCR) Parainfluenza 1 (PCR) Parainfluenza 2 (PCR) Parainfluenza 3 (PCR) Parainfluenza 4 (PCR) RSV (PCR) RSV RNA Qual (PCR) Entero/Rhino (PCR) SARS-CoV-2 RNA (RT-PCR) 07/22/20 07/22/20 09:39 11:27 WBC RBC Hgb Hct MCV MCH MCHC RDW Plt Count MPV Immature Gran % (Auto) Neut % (Auto) Lymph % (Auto) Miner % (Auto) Eos % (Auto) Baso % (Auto) Lymph # (Auto) Miner # (Auto) Eos # (Auto) Baso # (Auto) Abs Immat Gran (auto) Absolute Neuts (auto) Absolute Nucleated RBC Nucleated RBC % (auto) VBG pH VBG pCO2 VBG pO2 VBG HCO3 VBG O2 Saturation VBG Base Excess Sodium Potassium Chloride Carbon Dioxide Anion Gap BUN Creatinine Estim Creat Clear Calc Estimated GFR POC Glucose 258 H Random Glucose Lactic Acid Calcium Magnesium Ferritin Total Bilirubin Direct Bilirubin AST ALT Alkaline Phosphatase Lactate Dehydrogenase Troponin I High Sens C-Reactive Protein B-Natriuretic Peptide Total Protein Albumin Procalcitonin Urine Color Urine Appearance Urine pH Ur Specific Downs Urine Protein Urine Glucose (UA) Urine Ketones Urine Blood Urine Nitrite Ur Leukocyte Esterase Urine RBC Urine WBC Ur Squamous Epith Cells Urine Bacteria Respiratory Panel Duffy See Note Adenovirus (Rapid PCR) Not Detected B.pert (TEM-PCR) Not Detected B.parapertussis DNA PCR Not Detected C. pneumoniae DNA (PCR) Not Detected Coronavirus (PCR) Coronavirus OC43 (PCR) Not Detected Coronavirus HKU1 (PCR) Not Detected Coronavirus 229E (PCR) Not Detected Coronavirus NL63 (PCR) Not Detected Human Metapneumovir PCR Not Detected Influenza A (RT-PCR) Not Detected Influenza Type A (PCR) Influenza B (RT-PCR) Not Detected Influenza Type B (PCR) M. pneumoniae (PCR) Not Detected Parainfluenza 1 (PCR) Not Detected Parainfluenza 2 (PCR) Not Detected Parainfluenza 3 (PCR) Not Detected Parainfluenza 4 (PCR) Not Detected RSV (PCR) Not Detected RSV RNA Qual (PCR) Entero/Rhino (PCR) Not Detected SARS-CoV-2 RNA (RT-PCR) Not Detected ECG Attestation: I personally reviewed and interpreted this ECG as follows: Interpretation: Sinus rhythm at 76/Min with likely biventricular pacing. Imaging Radiologist's impression: Impressions Chest X-Ray 07/21/20 21:16 IMPRESSION: Cardiomegaly with small bilateral pleural effusions and increased interstitial markings suggesting CHF and mild interstitial edema. Bibasilar opacities could be superimposed infiltrates. Rounded area of abnormality at right lung base needs to be followed on future radiographs (in 4-6 weeks) for clearing. Chest CT 07/22/20 00:08 IMPRESSION: As stated above, significantly limited exam due to the lack of IV contrast. Small bilateral pleural effusions with nonspecific bilateral lower lobe and right middle lobe ground glass opacification. Enlarged lower pretracheal lymph node, though a fatty hilar notch is demonstrable. Automated exposure control (Care Dose) Adjustment of the mA and/or kv according to patient size (this includes techniques or standardized protocols for targeted exams where dose is matched to indication / reason for exam; i.e. extremities or head). Echocardiogram-03/2020 Conclusions: - The left ventricular systolic function is moderately decreased. The visually estimated ejection fraction is between 30-35%. - Evidence suggests grade II (moderate) diastolic dysfunction. - There is moderate aortic valve stenosis. The peak aortic velocity is 2.17 m/s with a calculated peak gradient of 19 mmHg. The mean gradient is 10 mmHg. The aortic valve area is 1.07 cm2. There is no aortic valve regurgitation. Dimensionless index 0.31. Stroke volume index 26ml/m2. Lower than expected gradients from diminished stroke volume. - Mild pulmonary hypertension is present. Assessment and Plan (1) Acute on chronic systolic and diastolic heart failure, NYHA class 3: Status: Acute (2) Atherosclerotic cardiovascular disease: Status: Acute (3) Status post coronary artery bypass graft: Status: Acute (4) Non-rheumatic aortic stenosis: Status: Acute (5) Biventricular ICD (implantable cardioverter-defibrillator) in place: Problem details: [facility], 06/2014 Status: Acute Clinically, she does not appear much volume overload. Okay to keep IV Lasix for the next 24 hours or so and then switch over to p.o. meds. Repeat echocardiogram tomorrow. Need to reassess LVEF/aortic stenosis
--- NOTE | 2020-07-22 14:59 | HO.PM.IMPN ---
Subjective Subjective Date of Service: 07/22/20 Interval History: ongoing dyspnea with exertion denies chest pain Physical Exam Vital Signs: Vital Signs: Last Vital Signs Temp 98 F 07/22/20 12:00 Pulse 66 07/22/20 12:00 Resp 17 07/22/20 12:00 BP 112/58 L 07/22/20 12:00 Pulse Ox 96 07/22/20 12:00 Body Mass Index 43.0 Gen: mild dyspnea after walking from bathroom HEENT: sclera anicteric, moist mucus membranes Neck: supple Lungs: diminished at bases bilaterally Heart: regular rate and rhythm, no murmurs Abd: soft, non-tender, non-distended, obese Ext: trace lower extremity edema Skin: warm/well-perfused Neuro: alert and oriented x3, no focal findings Psych: appropriate affect Objective Data Current Medications Generic Name Dose Route Start Last Admin Trade Name Freq PRN Reason Stop Dose Admin Acetaminophen 650 mg 07/22/20 01:14 Acetaminophen 325 Mg Tablet PO Q6H PRN Pain, Mild (Pain Scale 1-3) Atorvastatin Calcium 80 mg 07/22/20 09:00 07/22/20 08:21 Atorvastatin Calcium 80 Mg Tablet PO 80 mg DAILY WALLACE Administration Carvedilol 25 mg 07/22/20 09:00 07/22/20 08:21 Carvedilol 25 Mg Tablet PO 25 mg BID WALLACE Administration Protocol Docusate Sodium 100 mg 07/22/20 01:14 Docusate Sodium 100 Mg Capsule PO DAILY PRN Constipation Furosemide 40 mg 07/22/20 09:00 07/22/20 08:23 Furosemide 40 Mg/4 Ml Vial IVPUSH 40 mg DAILY WALLACE Administration Protocol Insulin Human Lispro 0 unit 07/22/20 07:30 07/22/20 12:06 Insulin Lispro 100 Unit/Ml 3 Ml Vial SUBCUT 6 unit Q[facility]ACHS [facility] Administration Protocol Lisinopril 5 mg 07/22/20 09:00 07/22/20 08:21 Lisinopril 5 Mg Tablet PO 5 mg DAILY WALLACE Administration Protocol Ondansetron HCl 4 mg 07/22/20 01:14 Ondansetron Hcl 4 Mg/2 Ml Vial IVPUSH Q8H PRN Nausea and Vomiting Rivaroxaban 20 mg 07/22/20 09:00 07/22/20 08:21 Rivaroxaban 20 Mg Tablet PO 20 mg DAILY WALLACE Administration Sodium Chloride 3 ml 07/22/20 01:14 07/22/20 08:23 0.9 % Sodium Chloride Flush 3 Ml Syringe IVFLUSH 3 ml QSHIFT WALLACE Administration Labs CBC & Chem 7: 07/22/20 04:25 07/22/20 04:25 Labs: Laboratory Results - last 24 hr 07/21/20 07/21/20 07/21/20 21:55 21:55 21:55 WBC 11.2 H RBC 5.05 Hgb 15.3 Hct 47.6 H MCV 94.3 MCH 30.3 MCHC 32.1 RDW 16.2 H Plt Count 132 L MPV 12.3 Immature Gran % (Auto) 0.4 Neut % (Auto) 66.5 Lymph % (Auto) 26.5 Sunflower % (Auto) 4.4 Eos % (Auto) 1.6 Baso % (Auto) 0.6 Lymph # (Auto) 3.0 Sunflower # (Auto) 0.5 Eos # (Auto) 0.2 Baso # (Auto) 0.1 Abs Immat Gran (auto) 0.04 H Absolute Neuts (auto) 7.5 Absolute Nucleated RBC 0.000 Nucleated RBC % (auto) 0.0 VBG pH VBG pCO2 VBG pO2 VBG HCO3 VBG O2 Saturation VBG Base Excess Sodium 141 Potassium 3.8 Chloride 107 Carbon Dioxide 22 Anion Gap 16 BUN 19 H Creatinine 0.84 Estim Creat Clear Calc 67.8 Estimated GFR > 60 POC Glucose Random Glucose 231 H D Lactic Acid Calcium 8.8 Magnesium Ferritin Total Bilirubin 1.9 H Direct Bilirubin AST 33 H ALT 48 H Alkaline Phosphatase 126 H Lactate Dehydrogenase Troponin I High Sens 238.5 H C-Reactive Protein B-Natriuretic Peptide 1425 H Total Protein 6.9 Albumin 4.2 Procalcitonin Urine Color Urine Appearance Urine pH Ur Specific Nakina Urine Protein Urine Glucose (UA) Urine Ketones Urine Blood Urine Nitrite Ur Leukocyte Esterase Urine RBC Urine WBC Ur Squamous Epith Cells Urine Bacteria Respiratory Panel Duffy Adenovirus (Rapid PCR) B.pert (TEM-PCR) B.parapertussis DNA PCR C. pneumoniae DNA (PCR) Coronavirus (PCR) Coronavirus OC43 (PCR) Coronavirus HKU1 (PCR) Coronavirus 229E (PCR) Coronavirus NL63 (PCR) Human Metapneumovir PCR Influenza A (RT-PCR) Influenza Type A (PCR) Influenza B (RT-PCR) Influenza Type B (PCR) M. pneumoniae (PCR) Parainfluenza 1 (PCR) Parainfluenza 2 (PCR) Parainfluenza 3 (PCR) Parainfluenza 4 (PCR) RSV (PCR) RSV RNA Qual (PCR) Entero/Rhino (PCR) SARS-CoV-2 RNA (RT-PCR) 07/21/20 07/21/20 07/21/20 21:56 21:56 22:32 WBC RBC Hgb Hct MCV MCH MCHC RDW Plt Count MPV Immature Gran % (Auto) Neut % (Auto) Lymph % (Auto) Sunflower % (Auto) Eos % (Auto) Baso % (Auto) Lymph # (Auto) Sunflower # (Auto) Eos # (Auto) Baso # (Auto) Abs Immat Gran (auto) Absolute Neuts (auto) Absolute Nucleated RBC Nucleated RBC % (auto) VBG pH VBG pCO2 VBG pO2 VBG HCO3 VBG O2 Saturation VBG Base Excess Sodium Potassium Chloride Carbon Dioxide Anion Gap BUN Creatinine Estim Creat Clear Calc Estimated GFR POC Glucose Random Glucose Lactic Acid 1.5 Calcium Magnesium Ferritin Total Bilirubin Direct Bilirubin AST ALT Alkaline Phosphatase Lactate Dehydrogenase Troponin I High Sens C-Reactive Protein B-Natriuretic Peptide Total Protein Albumin Procalcitonin Urine Color YELLOW Urine Appearance HAZY Urine pH 6.5 Ur Specific Nakina 1.015 Urine Protein 1+ H Urine Glucose (UA) 250 H Urine Ketones NEG Urine Blood 1+ H Urine Nitrite NEG Ur Leukocyte Esterase NEG Urine RBC 1-4 Urine WBC 0-2 Ur Squamous Epith Cells TRACE Urine Bacteria 4+ Respiratory Panel Duffy Adenovirus (Rapid PCR) B.pert (TEM-PCR) B.parapertussis DNA PCR C. pneumoniae DNA (PCR) Coronavirus (PCR) Cancelled Coronavirus OC43 (PCR) Coronavirus HKU1 (PCR) Coronavirus 229E (PCR) Coronavirus NL63 (PCR) Human Metapneumovir PCR Influenza A (RT-PCR) Influenza Type A (PCR) Cancelled Influenza B (RT-PCR) Influenza Type B (PCR) Cancelled M. pneumoniae (PCR) Parainfluenza 1 (PCR) Parainfluenza 2 (PCR) Parainfluenza 3 (PCR) Parainfluenza 4 (PCR) RSV (PCR) RSV RNA Qual (PCR) Cancelled Entero/Rhino (PCR) SARS-CoV-2 RNA (RT-PCR) 07/21/20 07/21/20 07/22/20 22:56 23:51 01:06 WBC RBC Hgb Hct MCV MCH MCHC RDW Plt Count MPV Immature Gran % (Auto) Neut % (Auto) Lymph % (Auto) Sunflower % (Auto) Eos % (Auto) Baso % (Auto) Lymph # (Auto) Sunflower # (Auto) Eos # (Auto) Baso # (Auto) Abs Immat Gran (auto) Absolute Neuts (auto) Absolute Nucleated RBC Nucleated RBC % (auto) VBG pH 7.41 VBG pCO2 40 VBG pO2 62 VBG HCO3 25 VBG O2 Saturation 91.0 VBG Base Excess 1.4 Sodium Potassium Chloride Carbon Dioxide Anion Gap BUN Creatinine Estim Creat Clear Calc Estimated GFR POC Glucose Random Glucose Lactic Acid Calcium Magnesium Ferritin Total Bilirubin Direct Bilirubin AST ALT Alkaline Phosphatase Lactate Dehydrogenase Troponin I High Sens 214.2 H C-Reactive Protein B-Natriuretic Peptide Total Protein Albumin Procalcitonin Urine Color Urine Appearance Urine pH Ur Specific Nakina Urine Protein Urine Glucose (UA) Urine Ketones Urine Blood Urine Nitrite Ur Leukocyte Esterase Urine RBC Urine WBC Ur Squamous Epith Cells Urine Bacteria Respiratory Panel Dufyf Adenovirus (Rapid PCR) B.pert (TEM-PCR) B.parapertussis DNA PCR C. pneumoniae DNA (PCR) Coronavirus (PCR) NEGATIVE Coronavirus OC43 (PCR) Coronavirus HKU1 (PCR) Coronavirus 229E (PCR) Coronavirus NL63 (PCR) Human Metapneumovir PCR Influenza A (RT-PCR) Influenza Type A (PCR) NEGATIVE Influenza B (RT-PCR) Influenza Type B (PCR) NEGATIVE M. pneumoniae (PCR) Parainfluenza 1 (PCR) Parainfluenza 2 (PCR) Parainfluenza 3 (PCR) Parainfluenza 4 (PCR) RSV (PCR) RSV RNA Qual (PCR) NEGATIVE Entero/Rhino (PCR) SARS-CoV-2 RNA (RT-PCR) 07/22/20 07/22/20 07/22/20 04:25 04:25 04:25 WBC 8.2 RBC 5.05 Hgb 15.6 Hct 47.2 H MCV 93.5 MCH 30.9 MCHC 33.1 RDW 16.3 H Plt Count 129 L MPV 12.8 H Immature Gran % (Auto) 0.9 H Neut % (Auto) 83.2 H Lymph % (Auto) 14.7 L Sunflower % (Auto) 1.0 L Eos % (Auto) 0.0 Baso % (Auto) 0.2 Lymph # (Auto) 1.2 Sunflower # (Auto) 0.1 Eos # (Auto) 0.0 Baso # (Auto) 0.0 Abs Immat Gran (auto) 0.07 H Absolute Neuts (auto) 6.8 Absolute Nucleated RBC 0.000 Nucleated RBC % (auto) 0.0 VBG pH VBG pCO2 VBG pO2 VBG HCO3 VBG O2 Saturation VBG Base Excess Sodium 139 Potassium 3.7 Chloride 101 Carbon Dioxide 22 Anion Gap 20 BUN 16 Creatinine 0.88 Estim Creat Clear Calc 64.7 Estimated GFR > 60 POC Glucose Random Glucose 384 H* Lactic Acid Calcium 8.8 Magnesium 1.9 Ferritin 195 Total Bilirubin Direct Bilirubin AST ALT Alkaline Phosphatase Lactate Dehydrogenase 307 H Troponin I High Sens 193.2 H C-Reactive Protein 1.91 H B-Natriuretic Peptide Total Protein Albumin Procalcitonin Urine Color Urine Appearance Urine pH Ur Specific Nakina Urine Protein Urine Glucose (UA) Urine Ketones Urine Blood Urine Nitrite Ur Leukocyte Esterase Urine RBC Urine WBC Ur Squamous Epith Cells Urine Bacteria Respiratory Panel Duffy Adenovirus (Rapid PCR) B.pert (TEM-PCR) B.parapertussis DNA PCR C. pneumoniae DNA (PCR) Coronavirus (PCR) Coronavirus OC43 (PCR) Coronavirus HKU1 (PCR) Coronavirus 229E (PCR) Coronavirus NL63 (PCR) Human Metapneumovir PCR Influenza A (RT-PCR) Influenza Type A (PCR) Influenza B (RT-PCR) Influenza Type B (PCR) M. pneumoniae (PCR) Parainfluenza 1 (PCR) Parainfluenza 2 (PCR) Parainfluenza 3 (PCR) Parainfluenza 4 (PCR) RSV (PCR) RSV RNA Qual (PCR) Entero/Rhino (PCR) SARS-CoV-2 RNA (RT-PCR) 07/22/20 07/22/20 07/22/20 04:25 06:28 07:21 WBC RBC Hgb Hct MCV MCH MCHC RDW Plt Count MPV Immature Gran % (Auto) Neut % (Auto) Lymph % (Auto) Sunflower % (Auto) Eos % (Auto) Baso % (Auto) Lymph # (Auto) Sunflower # (Auto) Eos # (Auto) Baso # (Auto) Abs Immat Gran (auto) Absolute Neuts (auto) Absolute Nucleated RBC Nucleated RBC % (auto) VBG pH VBG pCO2 VBG pO2 VBG HCO3 VBG O2 Saturation VBG Base Excess Sodium Potassium Chloride Carbon Dioxide Anion Gap BUN Creatinine Estim Creat Clear Calc Estimated GFR POC Glucose 335 H Random Glucose Lactic Acid Calcium Magnesium Ferritin Total Bilirubin 2.1 H Direct Bilirubin 0.8 H AST 29 ALT 44 H Alkaline Phosphatase 126 H Lactate Dehydrogenase Troponin I High Sens C-Reactive Protein B-Natriuretic Peptide Total Protein 6.8 Albumin 4.1 Procalcitonin 0.02 Urine Color Urine Appearance Urine pH Ur Specific Nakina Urine Protein Urine Glucose (UA) Urine Ketones Urine Blood Urine Nitrite Ur Leukocyte Esterase Urine RBC Urine WBC Ur Squamous Epith Cells Urine Bacteria Respiratory Panel Duffy Adenovirus (Rapid PCR) B.pert (TEM-PCR) B.parapertussis DNA PCR C. pneumoniae DNA (PCR) Coronavirus (PCR) Coronavirus OC43 (PCR) Coronavirus HKU1 (PCR) Coronavirus 229E (PCR) Coronavirus NL63 (PCR) Human Metapneumovir PCR Influenza A (RT-PCR) Influenza Type A (PCR) Influenza B (RT-PCR) Influenza Type B (PCR) M. pneumoniae (PCR) Parainfluenza 1 (PCR) Parainfluenza 2 (PCR) Parainfluenza 3 (PCR) Parainfluenza 4 (PCR) RSV (PCR) RSV RNA Qual (PCR) Entero/Rhino (PCR) SARS-CoV-2 RNA (RT-PCR) 07/22/20 07/22/20 09:39 11:27 WBC RBC Hgb Hct MCV MCH MCHC RDW Plt Count MPV Immature Gran % (Auto) Neut % (Auto) Lymph % (Auto) Sunflower % (Auto) Eos % (Auto) Baso % (Auto) Lymph # (Auto) Sunflower # (Auto) Eos # (Auto) Baso # (Auto) Abs Immat Gran (auto) Absolute Neuts (auto) Absolute Nucleated RBC Nucleated RBC % (auto) VBG pH VBG pCO2 VBG pO2 VBG HCO3 VBG O2 Saturation VBG Base Excess Sodium Potassium Chloride Carbon Dioxide Anion Gap BUN Creatinine Estim Creat Clear Calc Estimated GFR POC Glucose 258 H Random Glucose Lactic Acid Calcium Magnesium Ferritin Total Bilirubin Direct Bilirubin AST ALT Alkaline Phosphatase Lactate Dehydrogenase Troponin I High Sens C-Reactive Protein B-Natriuretic Peptide Total Protein Albumin Procalcitonin Urine Color Urine Appearance Urine pH Ur Specific Nakina Urine Protein Urine Glucose (UA) Urine Ketones Urine Blood Urine Nitrite Ur Leukocyte Esterase Urine RBC Urine WBC Ur Squamous Epith Cells Urine Bacteria Respiratory Panel Duffy See Note Adenovirus (Rapid PCR) Not Detected B.pert (TEM-PCR) Not Detected B.parapertussis DNA PCR Not Detected C. pneumoniae DNA (PCR) Not Detected Coronavirus (PCR) Coronavirus OC43 (PCR) Not Detected Coronavirus HKU1 (PCR) Not Detected Coronavirus 229E (PCR) Not Detected Coronavirus NL63 (PCR) Not Detected Human Metapneumovir PCR Not Detected Influenza A (RT-PCR) Not Detected Influenza Type A (PCR) Influenza B (RT-PCR) Not Detected Influenza Type B (PCR) M. pneumoniae (PCR) Not Detected Parainfluenza 1 (PCR) Not Detected Parainfluenza 2 (PCR) Not Detected Parainfluenza 3 (PCR) Not Detected Parainfluenza 4 (PCR) Not Detected RSV (PCR) Not Detected RSV RNA Qual (PCR) Entero/Rhino (PCR) Not Detected SARS-CoV-2 RNA (RT-PCR) Not Detected Assessment and Plan (1) Acute on chronic systolic and diastolic heart failure, NYHA class 3: Status: Acute Assessment and Plan: hospital d#2 65yo F with HFrEF [LVEF 30%, grade 2 diastolic dysfunction March 2020], hx BiV pacer, CAD s/p CABG, DM2, HTN, [place], COPD, PE on rivaroxaban admitted for CHF exacerbation # acute/chronic systolic/diastolic HF - continue IV diuresis, Cardiology following, TTE tomorrow, follow BNP/BMP/Mg/weight/I+O - continue carvedilol, lisinopril - t/c Entresto? # acute hypoxic respiratory failure - supplemental O2, wean as tolerated pending diuresis # ground-glass infiltrate RML - COVID neg x2, likely due to pulmonary interstitial edema # elevated transaminases - likely hepatic congestion, improving # leukocytosis - resolved, no evidence of infection # hx PE - continue rivaroxaban # CAD - continue statin, b-aly, MARCEL-I # COPD, not in acute exacerbation - continue prn [place] # DM2 - continue basal/bolus insulin # VTE ppx - on rivaroxaban
[2020-07-22 16:24] LABS: Glucose, Whole Blood 247 mg/dL (60-115)
[2020-07-22 20:14] LABS: Glucose, Whole Blood 225 mg/dL (60-115)
[2020-07-22] MEDS: Insulin Glargine,Hum.rec.anlog 100 UNIT/ML 10 ML VIAL 25 UNIT SUBCUT (20:18)
[2020-07-23] VITALS: BP 130/55; PULSE 72; RESP 16; TEMP 36.3; O2SAT 96
--- NOTE | 2020-07-23 01:14 | CA_ITS ---
Transthoracic Echocardiogram Patient (Last, First, Middle): La Nena Castro M Gender: Female Date of : 1955 Age: 65 Procedure Date: 07/23/2020 Procedure Type: Transthoracic Echocardiogram Location: S3E Height: 149.86 cm Weight: 99.34 kg BSA: 1.92 m2 Heart Rate: bpm BP: 116 / 56 mmHg Management Specialist: Referring MD: Yessy Al MD Symptoms: CHF Study Quality: Fair ECG Rhythm: Ventriculary paced rhythm Conclusions: - There is mild to moderate aortic valve stenosis. - The left ventricular systolic function is moderate to severely decreased. The visually estimated ejection fraction is between 25-30%. There is moderate global hypokinesis. - Elevated filling pressures. Findings Left Ventricle Normal left ventricular cavity size. There is mildly increased left ventricular wall thickness. The left ventricular systolic function is moderate to severely decreased. The visually estimated ejection fraction is between 25-30%. There is moderate global hypokinesis. Abnormal diastolic function is noted. Spectral Doppler is indicative of a restrictive filling pattern. Elevated filling pressures. Right Ventricle Normal right ventricular cavity size and systolic function. There is an ICD wire seen in the right ventricle. Atria The left atrium is moderately dilated. Aortic Valve There is moderate calcification of the aortic valve. There is moderate thickening of the aortic valve. There is mild to moderate aortic valve stenosis. There is no aortic valve regurgitation. Mitral Valve Normal mitral valve structure and function. There is moderate mitral annular calcification. There is trace mitral valve regurgitation. There is no mitral valve stenosis. Tricuspid Valve Normal tricuspid valve structure and function. There is trace tricuspid valve regurgitation. Normal right atrial pressure. There is no evidence of pulmonary hypertension. Great Vessels All visible segments of the aorta are normal in size. The visualized portions of the pulmonary artery and branches are normal. Venous The inferior vena cava is normal in size and collapses greater than 50% with inspiration. Pericardium/Pleural There is no evidence of pericardial effusion. Prior Study Comparison Changes noted compared to prior study dated: 04/25/2020. EF 25 to 30 %, elevated filling pressures. Measurements 2D Linear Measurements IVSd: 1.06 0.6-0.9/0.6-1.0 cm LVIDd: 5.50 3.9-5.3/4.2-5.9 cm LVIDd Index: 2.86 2.4-3.2/2.2-3.1 cm/m2 LVIDs: 4.23 2.0-3.6 cm LVPWd: 1.14 0.7-1.1 cm Ao Root: 2.90 2.1-3.5 cm LA Diam: 4.30 2.7-3.8/3.0-4.0 cm LAIDs Index: 2.24 1.5-2.3 cm/m2 LV Mass: 301.76 67-162/88-224 g LV Mass Index: 157.17 43-95/49-115 g/m2 LVOT Diam: 2.30 3.0+(-)1.3 cm 2D Systolic Function EF 4C: 37.60 >55% EF 2C: 28.70 >55% EF BiP: 32.70 >55% Mitral Valve MV Pk E: 1.12 MV PK A: 0.57 MV Decel Time: 290.00 E/A: 2.00 E'Lateral: 2.80 E'Medial: 4.06 E/E' Med: 27.60 E/E' Lat: 40.00 PHT: 85.00 MVA PHT: 2.59 Decel [place]: 3.84 Aortic Valve AoV Pk Jaswinder: 1.95 AoV Mn Jaswinder: 1.28 AoV VTI: 0.46 AoV Pk Grad: 15.00 Aov Mn Grad: 8.00 DONNA Cont.VTI: 1.71 LVOT LVOT Pk Jaswinder: 0.81 LVOT Mn Jaswinder: 0.51 LVOT VTI: 0.19 LVOT Pk Grad: 3.00 LVOT Mn Grad: 1.00 LVOT Diam: 2.30 LVOT Area: 4.15 Diastolic Function MV Pk E: 1.12 MV Pk A: 0.57 E/A: 2.00 E'Medial: 4.06 E/E' Med: 27.60 E' Laterial: 2.80 E/E' Lat: 40.00 Tricuspid Valve TR Pk Jaswinder: 2.40 TR Pk Grad: 23.00 RA Press: 3.00 RVSP: 26.00 Great Vessels Aorta Ao Root-2D: 2.90 2.0-3.7 cm Pulmonary Valve PV Pk Jaswinder: 0.81 Peak PV Grad: 3.00 Updated in Other Vendor System with Status of Final Jaycob Reza MD electronically signed on 07/23/2020 7:47:36 PM with status of Final
[2020-07-23 06:00] VITALS: BMI 42.5
[2020-07-23 07:31] LABS: Glucose, Whole Blood 147 mg/dL (60-115)
[2020-07-23 07:33] LABS: Estimated Average Glucose 171 mg/dL; Hemoglobin A1c % 7.6 %
[2020-07-23 07:40] LABS: Anion Gap 15 (12-20); Blood Urea Nitrogen 23 mg/dL (9-16); Calcium 8.9 mg/dL (8.4-10.2); Carbon Dioxide 26 mmol/L (22-29); Chloride 105 mmol/L (96-108); Creatinine Clr Calc Pharmacy 59.5; Estimated Glomerular Filt Rate 60; Glucose Random 145 mg/dL (60-115); Magnesium 2.2 mg/dL (1.6-2.6); Potassium 3.8 mmol/L (3.3-5.1); Sodium 142 mmol/L (135-145)
[2020-07-23 07:41] LABS: B Type Natriuretic Peptide 442 pg/mL (<100)
[2020-07-23 08:00] VITALS: BP 132/71; PULSE 66; RESP 17; TEMP 36.2; O2SAT 98
[2020-07-23 08:27] VITALS: BP 132/71; PULSE 66
[2020-07-23] MEDS: carvediloL 25 MG TABLET PO (08:27)
[2020-07-23 08:28] VITALS: BP 132/71; PULSE 66
[2020-07-23] MEDS: Escitalopram Oxalate 10 MG TABLET PO (08:28)
[2020-07-23] MEDS: lisinopriL 5 MG TABLET PO (08:28)
[2020-07-23] MEDS: 0.9 % Sodium Chloride Flush 3 ML SYRINGE IVFLUSH ×2 (08:28→15:39)
[2020-07-23] MEDS: Atorvastatin Calcium 80 MG TABLET PO (08:28)
[2020-07-23] MEDS: Rivaroxaban 20 MG TABLET PO (08:28)
[2020-07-23] MEDS: Furosemide 40 MG/4 ML VIAL IVPUSH (08:28)
--- NOTE | 2020-07-23 09:44 | P.PNCA_ITS ---
Subjective Subjective Date of Service: 07/23/20 Principal diagnosis: Acute on chronic systolic and diastolic HF, CMP Interval history: Cardiology follow up for the above. Seen at 0900. Today she reports that her breathing feels better. She has not been up walking yet which will help her see if breathing is back to normal. No chest pains, palpitation, lightheadedness, edema. Hoping to be able to go home today. Review of Systems Review of Systems as above Yes all other systems are reviewed and are negative Physical Exam Vital Signs: Last Vital Signs Temp 97.1 F 07/23/20 08:00 Pulse 66 07/23/20 08:28 Resp 17 07/23/20 08:00 BP 132/71 07/23/20 08:28 Pulse Ox 98 07/23/20 08:00 Body Mass Index 42.5 Const General: cooperative, no acute distress, alert and awake Orientation/consciousness: patient oriented x3 Neck Neck: Yes normal visual inspection and Yes no JVD Resp Effort & Inspection: normal respiratory effort, able to speak in complete sentences and not labored Auscultation: clear to auscultation bilaterally, no crackles, no rales, no rhonchi and no wheezes Cardio Palpation: normal PMI Rate: regular rate Rhythm: regular rhythm Heart sounds: S2 normal heart sound present and Murmur heart sound present (systolic 2/6 left sternal border) Peripheral pulses: Peripheral pulses 2+ throughout GI Inspection: Yes normal to inspection Neuro General: patient oriented x3 Extrem General: Yes normal to inspection and No edema Results Labs and Meds Result diagrams: 07/22/20 04:25 07/23/20 06:45 Lab results: Laboratory Results - last 24 hr 07/22/20 07/22/20 07/22/20 04:25 09:39 11:27 Sodium Potassium Chloride Carbon Dioxide Anion Gap BUN Creatinine Estim Creat Clear Calc Estimated GFR POC Glucose 258 H Random Glucose Estimat Average Glucose Hemoglobin A1c % Calcium Magnesium B-Natriuretic Peptide Procalcitonin 0.02 Respiratory Panel Duffy See Note Adenovirus (Rapid PCR) Not Detected B.pert (TEM-PCR) Not Detected B.parapertussis DNA PCR Not Detected C. pneumoniae DNA (PCR) Not Detected Coronavirus OC43 (PCR) Not Detected Coronavirus HKU1 (PCR) Not Detected Coronavirus 229E (PCR) Not Detected Coronavirus NL63 (PCR) Not Detected Human Metapneumovir PCR Not Detected Influenza A (RT-PCR) Not Detected Influenza B (RT-PCR) Not Detected M. pneumoniae (PCR) Not Detected Parainfluenza 1 (PCR) Not Detected Parainfluenza 2 (PCR) Not Detected Parainfluenza 3 (PCR) Not Detected Parainfluenza 4 (PCR) Not Detected RSV (PCR) Not Detected Entero/Rhino (PCR) Not Detected SARS-CoV-2 RNA (RT-PCR) Not Detected 07/22/20 07/22/20 07/23/20 16:20 20:10 06:45 Sodium Potassium Chloride Carbon Dioxide Anion Gap BUN Creatinine Estim Creat Clear Calc Estimated GFR POC Glucose 247 H 225 H Random Glucose Estimat Average Glucose 171 Hemoglobin A1c % 7.6 Calcium Magnesium B-Natriuretic Peptide Procalcitonin Respiratory Panel Duffy Adenovirus (Rapid PCR) B.pert (TEM-PCR) B.parapertussis DNA PCR C. pneumoniae DNA (PCR) Coronavirus OC43 (PCR) Coronavirus HKU1 (PCR) Coronavirus 229E (PCR) Coronavirus NL63 (PCR) Human Metapneumovir PCR Influenza A (RT-PCR) Influenza B (RT-PCR) M. pneumoniae (PCR) Parainfluenza 1 (PCR) Parainfluenza 2 (PCR) Parainfluenza 3 (PCR) Parainfluenza 4 (PCR) RSV (PCR) Entero/Rhino (PCR) SARS-CoV-2 RNA (RT-PCR) 07/23/20 07/23/20 07/23/20 06:45 06:45 07:18 Sodium 142 Potassium 3.8 Chloride 105 Carbon Dioxide 26 Anion Gap 15 BUN 23 H Creatinine 0.94 Estim Creat Clear Calc 59.5 Estimated GFR 60 POC Glucose 147 H Random Glucose 145 H D Estimat Average Glucose Hemoglobin A1c % Calcium 8.9 Magnesium 2.2 B-Natriuretic Peptide 442 H Procalcitonin Respiratory Panel Duffy Adenovirus (Rapid PCR) B.pert (TEM-PCR) B.parapertussis DNA PCR C. pneumoniae DNA (PCR) Coronavirus OC43 (PCR) Coronavirus HKU1 (PCR) Coronavirus 229E (PCR) Coronavirus NL63 (PCR) Human Metapneumovir PCR Influenza A (RT-PCR) Influenza B (RT-PCR) M. pneumoniae (PCR) Parainfluenza 1 (PCR) Parainfluenza 2 (PCR) Parainfluenza 3 (PCR) Parainfluenza 4 (PCR) RSV (PCR) Entero/Rhino (PCR) SARS-CoV-2 RNA (RT-PCR) Progress Note: A&P Assessment and plan (1) Acute on chronic systolic and diastolic heart failure, NYHA class 3: Status: Acute Assessment and Plan: Admit with sob. CXR with small bilateral effusions. BNP elevated at 1425 which is high for her. Diuresing with IV Lasix with fluid balance Neg 1200 cc since admit. Breathing improved this am. No clinical signs of acute HF on exam. Sat 98% on RA. Echo pending - to reassess EF and degree of . Previously known to have EF 30-35%, Moderate . Unclear at present why she had decompensated HF. Reviewed strict med compliance, low salt diet, home weight monitoring. Give IV Lasix today, then plan to change to PO. If echo shows no significant changes, and breathing comfortable with activity, she can be discharged from cardiology perspective. We will arrange outpt cardiology follow up. (2) Non-rheumatic aortic stenosis: Status: Acute Assessment and Plan: Moderate on echo 03/2020. Murmur does not sound like severe on exam. (3) Cardiomyopathy: Problem details: mixed ischemic and nonischemic Status: Acute Assessment and Plan: Last EF 30-35%. Has Bi V ICD in place. On Carvedilol, Lisinopril for neuroho rmonal modulation. Followed as outpt in our office. (4) CAD (coronary artery disease): Status: Acute Assessment and Plan: Hx CAD with prior stents and 2 vessel CABG. No report of CP this admit. Trop elevated, flat. Nuclear stress test done 05/30/20 shows no ischemia, small fixed apical defect. Continue atorvastatin, carvedilol. Not on aspirin as she is on xarelto. (5) Hx of CABG: Problem details: 2018, GERBER to LAD, rSVG to OM Status: Acute (6) NSVT (nonsustained ventricular tachycardia): Status: Acute Assessment and Plan: Short runs of NSVT seen on ICD remote monitoring in recent months. Her Carvedilol was increased. Nuclear stress does not show ischemia. This admit, tele does show one 5 beat NSVT, asymptomatic. Continue current carvedilol. Fall Risk Details Current Medications: Current Medications Generic Name Dose Route Start Last Admin Trade Name Freq PRN Reason Stop Dose Admin Acetaminophen 650 mg 07/22/20 01:14 Acetaminophen 325 Mg Tablet PO Q6H PRN Pain, Mild (Pain Scale 1-3) Albuterol/Ipratropium 3 ml 07/22/20 15:12 Albuterol/Iprat 2.5/0.5mg 3 Ml Ampul.Neb INHALE QID PRN Shortness of Breath Atorvastatin Calcium 80 mg 07/22/20 09:00 07/23/20 08:28 Atorvastatin Calcium 80 Mg Tablet PO 80 mg DAILY WALLACE Administration Carvedilol 25 mg 07/22/20 09:00 07/23/20 08:27 Carvedilol 25 Mg Tablet PO 25 mg BID WALLACE Administration Protocol Docusate Sodium 100 mg 07/22/20 01:14 Docusate Sodium 100 Mg Capsule PO DAILY PRN Constipation Escitalopram Oxalate 10 mg 07/23/20 09:00 07/23/20 08:28 Escitalopram Oxalate 10 Mg Tablet PO 10 mg DAILY WALLACE Administration Furosemide 40 mg 07/22/20 09:00 07/23/20 08:28 Furosemide 40 Mg/4 Ml Vial IVPUSH 40 mg DAILY WALLACE Administration Protocol Insulin Glargine 25 unit 07/22/20 21:00 07/22/20 20:18 Insulin Glargine,Hum.Rec.Anlog 100 Unit/Ml 10 Ml Vial SUBCUT 25 unit BEDTIME WALLACE Administration Insulin Human Lispro 0 unit 07/22/20 07:30 07/23/20 07:54 Insulin Lispro 100 Unit/Ml 3 Ml Vial SUBCUT Not Given QIDACHS [facility] Protocol Lisinopril 5 mg 07/22/20 09:00 07/23/20 08:28 Lisinopril 5 Mg Tablet PO 5 mg DAILY WALLACE Administration Protocol Ondansetron HCl 4 mg 07/22/20 01:14 Ondansetron Hcl 4 Mg/2 Ml Vial IVPUSH Q8H PRN Nausea and Vomiting Rivaroxaban 20 mg 07/22/20 09:00 07/23/20 08:28 Rivaroxaban 20 Mg Tablet PO 20 mg DAILY WALLACE Administration Sodium Chloride 3 ml 07/22/20 01:14 07/23/20 08:28 0.9 % Sodium Chloride Flush 3 Ml Syringe IVFLUSH 3 ml QSHIFT WALLACE Administration Time Spent With Patient Time: Total time spent is greater than 50% in coordination of care (as documented) at patient's floor/unit and/or counseling patient: 18 Time with patient: 15 - 24 minutes
--- NOTE | 2020-07-23 10:50 | P.DS_ITS ---
DS: Providers Provider Date of Service: 07/23/20 Date of admission: 07/21/20 23:39 Primary care physician: Unknown Physician Consults: 07/22/20 07:50 Consult to Cardiology Routine Consulting Provider: [facility] [place] Cardiovascular Services Reason for consultation: HFrEF DS: Diagnosis Discharge Diagnosis (1) Acute on chronic systolic and diastolic heart failure, NYHA class 3: Status: Acute (2) Non-rheumatic aortic stenosis: Status: Acute (3) Cardiomyopathy: Status: Acute Problem details: mixed ischemic and nonischemic (4) CAD (coronary artery disease): Status: Acute (5) Hx of CABG: Status: Acute Problem details: 2018, GERBER to LAD, rSVG to OM (6) NSVT (nonsustained ventricular tachycardia): Status: Acute DS: Medications Discharge Medications Home Medications: Home Medications Medication Instructions Recorded Confirmed atorvastatin 80 mg tablet 80 mg PO DAILY 02/27/20 07/21/20 furosemide 20 mg tablet 20 mg PO DAILY 02/27/20 07/21/20 insulin aspart U-100 100 unit/mL 4 - 16 unit SUBCUT TID 06/26/20 07/21/20 (3 mL) subcutaneous pen citalopram 20 mg PO DAILY 07/21/20 07/21/20 insulin glargine 25 unit SUBCUT BEDTIME 07/21/20 07/21/20 ipratropium-albuterol [Combivent 1 puff INHALATION QID PRN 07/21/20 07/21/20 Respimat] Previous Rx's Medication Instructions Recorded rivaroxaban 20 mg tablet 20 mg PO DAILY 90 Days #90 tab 02/27/20 carvedilol 25 mg tablet 25 mg PO BID 90 Days #180 tab 03/29/20 lisinopril 5 mg tablet 5 mg PO DAILY 90 Days #90 tab 06/07/20 DS: Summary Hospital Course Hospital Course: Patient with cardiomyopathy, heart failure, moderate admitted with exacerbation of heart failure. Hospital course: (1). Acute on chronic systolic heart failure with BNP of >1400, last EF 30 to 35. Treated with IV Lasix and is feeling better, negative 1200 cc. BNP is down to 400 and clinically is feeling better. She is getting repeat echo to reasses aortic stenosis that has not been severe. Cardiology has seen her and recommend changing to PO Lasix and will increase to 40 daily from 20 daily. she will have outpatient cardiology follow up by [facility] cardiovascular. (2) Non-rheumatic aortic stenosis: that has been moderate as of echo of March 2020. Repeat echo t reassess (3)Cardiomyopathy Last EF 30-35%. Has Bi V ICD in place. On Carvedilol, Lisinopril for neurohormonal modulation. Followed as outpt in our office. (4) CAD (coronary artery disease): Hx CAD with prior stents and 2 vessel CABG. No report of CP this admit. Trop elevated, flat. Nuclear stress test done 05/30/20 shows no ischemia, small fixed apical defect. Continue atorvastatin, carvedilol. Not on aspirin as she is on xarelto. (5) Hx of CAB, GERBER to LAD, rSVG to OM Status: Acute (6) NSVT (nonsustained ventricular tachycardia): Short runs of NSVT seen on ICD remote monitoring in recent months. Her Carvedilol was increased. Nuclear stress does not show ischemia. This admit, tele does show one 5 beat NSVT, asymptomatic. Continue current carvedilol . Time Spent with Patient Time attestation: Total time spent providing and/or coordinating discharge services: Discharge coordination time: Greater than 30 minutes Physical Exam Vital Signs: Vital Signs: Last Vital Signs Temp 97.1 F 07/23/20 08:00 Pulse 66 07/23/20 08:28 Resp 17 07/23/20 08:00 BP 132/71 07/23/20 08:28 Pulse Ox 98 07/23/20 08:00 Body Mass Index 42.5 General: AO X 3, no acute distress Resp: CTA bilateral CVS: S1,S2,RRR, no leg edema, mild murmur GI: +BS, NT, no distention Skin: No rash Neuro: motor grossly intact Psych: appropriate affect DS: Data Data Completed and Pending Labs on day of discharge: Laboratory Results - last 24 hr 07/22/20 07/22/20 07/22/20 09:39 11:27 16:20 Sodium Potassium Chloride Carbon Dioxide Anion Gap BUN Creatinine Estim Creat Clear Calc Estimated GFR POC Glucose 258 H 247 H Random Glucose Estimat Average Glucose Hemoglobin A1c % Calcium Magnesium B-Natriuretic Peptide Respiratory Panel Duffy See Note Adenovirus (Rapid PCR) Not Detected B.pert (TEM-PCR) Not Detected B.parapertussis DNA PCR Not Detected C. pneumoniae DNA (PCR) Not Detected Coronavirus OC43 (PCR) Not Detected Coronavirus HKU1 (PCR) Not Detected Coronavirus 229E (PCR) Not Detected Coronavirus NL63 (PCR) Not Detected Human Metapneumovir PCR Not Detected Influenza A (RT-PCR) Not Detected Influenza B (RT-PCR) Not Detected M. pneumoniae (PCR) Not Detected Parainfluenza 1 (PCR) Not Detected Parainfluenza 2 (PCR) Not Detected Parainfluenza 3 (PCR) Not Detected Parainfluenza 4 (PCR) Not Detected RSV (PCR) Not Detected Entero/Rhino (PCR) Not Detected SARS-CoV-2 RNA (RT-PCR) Not Detected 07/22/20 07/23/20 07/23/20 20:10 06:45 06:45 Sodium 142 Potassium 3.8 Chloride 105 Carbon Dioxide 26 Anion Gap 15 BUN 23 H Creatinine 0.94 Estim Creat Clear Calc 59.5 Estimated GFR 60 POC Glucose 225 H Random Glucose 145 H D Estimat Average Glucose 171 Hemoglobin A1c % 7.6 Calcium 8.9 Magnesium 2.2 B-Natriuretic Peptide Respiratory Panel Duffy Adenovirus (Rapid PCR) B.pert (TEM-PCR) B.parapertussis DNA PCR C. pneumoniae DNA (PCR) Coronavirus OC43 (PCR) Coronavirus HKU1 (PCR) Coronavirus 229E (PCR) Coronavirus NL63 (PCR) Human Metapneumovir PCR Influenza A (RT-PCR) Influenza B (RT-PCR) M. pneumoniae (PCR) Parainfluenza 1 (PCR) Parainfluenza 2 (PCR) Parainfluenza 3 (PCR) Parainfluenza 4 (PCR) RSV (PCR) Entero/Rhino (PCR) SARS-CoV-2 RNA (RT-PCR) 07/23/20 07/23/20 06:45 07:18 Sodium Potassium Chloride Carbon Dioxide Anion Gap BUN Creatinine Estim Creat Clear Calc Estimated GFR POC Glucose 147 H Random Glucose Estimat Average Glucose Hemoglobin A1c % Calcium Magnesium B-Natriuretic Peptide 442 H Respiratory Panel Duffy Adenovirus (Rapid PCR) B.pert (TEM-PCR) B.parapertussis DNA PCR C. pneumoniae DNA (PCR) Coronavirus OC43 (PCR) Coronavirus HKU1 (PCR) Coronavirus 229E (PCR) Coronavirus NL63 (PCR) Human Metapneumovir PCR Influenza A (RT-PCR) Influenza B (RT-PCR) M. pneumoniae (PCR) Parainfluenza 1 (PCR) Parainfluenza 2 (PCR) Parainfluenza 3 (PCR) Parainfluenza 4 (PCR) RSV (PCR) Entero/Rhino (PCR) SARS-CoV-2 RNA (RT-PCR) Preliminary micro results at discharge 07/21/20 22:32 Blood Culture - Preliminary Blood - Venous No growth after 24 hours. 07/21/20 21:56 Blood Culture - Preliminary Blood - Venous No growth after 24 hours. Discharge Plan Discharge Anticipated Discharge Date/Time: 07/23/20 10:47 Patient Disposition: Home, Self-Care Referrals: Physician,Unknown [Primary Care Provider] - Discharge Medications: Continued carvedilol 25 mg tablet 25 mg PO BID 90 Days Qty: 180 RF: 1 lisinopril 5 mg tablet 5 mg PO DAILY 90 Days Qty: 90 RF: 3 citalopram 20 mg tablet 20 mg PO DAILY RF: 0 Combivent Respimat 20-100 mcg/actuation mist 1 puff inhalation QID PRN (Reason: Shortness Of Breath) RF: 0 insulin glargine 25 unit 25 unit subcut BEDTIME RF: 0 insulin aspart U-100 100 unit/mL (3 mL) insulin pen 4 - 16 unit subcut TID RF: 0 atorvastatin 80 mg tablet 80 mg PO DAILY RF: 0 Xarelto 20 mg tablet 20 mg PO DAILY 90 Days Qty: 90 RF: 3 Changed furosemide [Lasix] 20 mg tablet 40 mg PO DAILY Qty: 60 RF: 0 Discharge Orders: Discharge Order (Routine); Ordered 07/23/20 Ordered By: Poncho Pelletier Diet: advance to usual diet and low salt diet Activity on Discharge: As tolerated Stand Alone Forms: Patient Portal Discharge page Care Plan Goals: prevent rehospialization and control of heart failure Health Concerns: chronic systolic heart failure Plan of Treatment: Take Lasix as directed, limit salt, limit water intake to no more than 1500cc per day, follow up with your heart doctor
[2020-07-23 11:12] LABS: Glucose, Whole Blood 143 mg/dL (60-115)
[2020-07-23 11:20] VITALS: BP 128/65; PULSE 75; RESP 16; TEMP 36.4; O2SAT 97
--- NOTE | 2020-07-23 11:42 | MHC.CM.PN ---
Patient to return home today with no need for services.
--- NOTE | 2020-07-23 12:12 | MHC.CM.PN ---
PATIENT LIVES ALONE. SHE RELIES ON A CANE FOR AMBULATION. NO [facility] OR OUTSIDE [facility]LD[facility] SERVICES. SHE IS DC TODAY WITH NO NEED FOR SERVICES. IMM 07/12 IN CHART.
[2020-07-23 15:38] VITALS: BP 125/60; PULSE 60; RESP 19; TEMP 35.8; O2SAT 97
[2020-07-23 16:18] LABS: Glucose, Whole Blood 159 mg/dL (60-115)
--- NOTE | 2020-07-23 16:34 | MHC.CM.PN ---
[facility]CH[facility] GIVEN, [facility] IS NO LONGER AVAILABLE. RN AWARE. [phone] PHONE NUMBER WRITTEN ON VOUCHER
== END 2020-07-23 17:25 | disposition home or self-care (01) | DRG 291 ==
LOC: HO.ED 23:38 → HO.EDOVER 07-22 00:23 → HO.S3 07-22 01:06
PROVIDERS: Family Medicine; Admitting Provider Internal Medicine; Emergency Provider Student in an Organized Health Care Education/Training Program; PCP Internal Medicine; Visit Provider Internal Medicine
DX: I11.0 Hypertensive heart disease with heart failure (principal); J96.01 Acute respiratory failure with hypoxia; I47.1 Supraventricular tachycardia; I25.10 Atherosclerotic heart disease of native coronary artery without angina pectoris; E78.5 Hyperlipidemia, unspecified; J44.9 Chronic obstructive pulmonary disease, unspecified; I35.0 Nonrheumatic aortic (valve) stenosis; G47.33 Obstructive sleep apnea (adult) (pediatric); I50.23 Acute on chronic systolic (congestive) heart failure; I42.8 Other cardiomyopathies; Z95.810 Presence of automatic (implantable) cardiac defibrillator; Z20.822 Contact with and (suspected) exposure to COVID-19; Z86.711 Personal history of pulmonary embolism; Z87.891 Personal history of nicotine dependence; Z95.1 Presence of aortocoronary bypass graft; Z79.4 Long term (current) use of insulin; Z79.899 Other long term (current) drug therapy
CPT/HCPCS: 0241U; 36415; 71045; 71250; 80048; 80053; 80076; 81001; 82728; 82947; 83036; 83605; 83615; 83735; 83880; 84145; 84484; 85025; 86140; 87040; 87633; 93005; 93306; 94640; 94664; 96374; 96375; 99285; J1940; J2543; J2930

== ENCOUNTER → 2020-08-06 10:03 | Outpatient (BNVA) | payer OTHER, SELFPAY | PROVIDERS: Visit Provider Nurse Practitioner Family | DX: I11.0 Hypertensive heart disease with heart failure (principal); I50.22 Chronic systolic (congestive) heart failure; I42.9 Cardiomyopathy, unspecified; I25.10 Atherosclerotic heart disease of native coronary artery without angina pectoris; I47.2 Ventricular tachycardia; E78.5 Hyperlipidemia, unspecified; E11.9 Type 2 diabetes mellitus without complications; Z95.1 Presence of aortocoronary bypass graft; Z95.810 Presence of automatic (implantable) cardiac defibrillator; Z95.5 Presence of coronary angioplasty implant and graft; Z79.899 Other long term (current) drug therapy | CPT/HCPCS: 99212 ==

== ENCOUNTER → 2020-11-05 08:51 | Outpatient (BNVA) | payer OTHER, SELFPAY | PROVIDERS: PCP Internal Medicine Hematology & Oncology; Referring Provider Internal Medicine Hematology & Oncology; Visit Provider Internal Medicine Cardiovascular Disease | DX: Z45.02 Encounter for adjustment and management of automatic implantable cardiac defibrillator (principal); I50.22 Chronic systolic (congestive) heart failure; I25.10 Atherosclerotic heart disease of native coronary artery without angina pectoris; I35.0 Nonrheumatic aortic (valve) stenosis; I47.2 Ventricular tachycardia | CPT/HCPCS: 99212 ==

== ENCOUNTER → 2020-11-26 14:16 | Outpatient (BNVA) | payer OTHER, SELFPAY | PROVIDERS: PCP Internal Medicine Hematology & Oncology; Visit Provider Internal Medicine | DX: G47.33 Obstructive sleep apnea (adult) (pediatric) (principal); J98.4 Other disorders of lung; E66.01 Morbid (severe) obesity due to excess calories; Z68.42 Body mass index [BMI] 45.0-49.9, adult; I25.10 Atherosclerotic heart disease of native coronary artery without angina pectoris; I50.22 Chronic systolic (congestive) heart failure; Z95.0 Presence of cardiac pacemaker; Z95.1 Presence of aortocoronary bypass graft | CPT/HCPCS: 99202 ==

== ENCOUNTER 2020-12-06 13:10 | Outpatient (REF) | payer OTHER, SELFPAY ==
--- NOTE | 2020-12-06 17:46 | PFT_ITS ---
Forced vital capacity moderately decreased. FEV1 also moderately decreased, but FEV1/FVC ratio is normal. [id number] moderately decreased and MVV slightly decreased. Post bronchodilator therapy, there is no significant change. Total lung capacity is slightly decreased. Residual volume normal. Diffusion capacity moderately decreased. CONCLUSION: No evidence of obstructive airway disorder. The findings are consistent with [id number] degree of restrictive pulmonary disorder. Clinical correlation is recommended. MD ROBE Cota/CHET / [id number]
== END 2020-12-06 13:11 | disposition home or self-care (01) ==
LOC: HO.RESP 13:10
PROVIDERS: PCP Internal Medicine; Visit Provider Internal Medicine
DX: J98.4 Other disorders of lung (principal); E66.01 Morbid (severe) obesity due to excess calories; G47.33 Obstructive sleep apnea (adult) (pediatric)
CPT/HCPCS: 94060; 94727; 94729

== ENCOUNTER 2020-12-17 09:57 | Outpatient (REF) | payer MEDICARE, SELFPAY ==
[2020-12-17 11:12] LABS: B Type Natriuretic Peptide 332 pg/mL (<100)
[2020-12-17 11:22] LABS: Anion Gap 16 (12-20); Blood Urea Nitrogen 27 mg/dL (9-16); Calcium 9.2 mg/dL (8.4-10.2); Carbon Dioxide 26 mmol/L (22-29); Chloride 105 mmol/L (96-108); Estimated Glomerular Filt Rate 48; Glucose Random 68 mg/dL (60-115); Sodium 143 mmol/L (135-145)
== END 2020-12-17 09:58 | disposition home or self-care (01) ==
LOC: HO.LAB 09:57
PROVIDERS: Absent Provider Internal Medicine; PCP Internal Medicine; Visit Provider Internal Medicine Cardiovascular Disease
DX: I50.22 Chronic systolic (congestive) heart failure (principal)
CPT/HCPCS: 36415; 80048; 83880

== ENCOUNTER → 2020-12-18 09:01 | Outpatient (BNVA) | payer MEDICARE, SELFPAY | PROVIDERS: PCP Internal Medicine; Referring Provider Internal Medicine; Visit Provider Internal Medicine Cardiovascular Disease | DX: Z45.02 Encounter for adjustment and management of automatic implantable cardiac defibrillator (principal); I50.22 Chronic systolic (congestive) heart failure; I25.10 Atherosclerotic heart disease of native coronary artery without angina pectoris | CPT/HCPCS: 99212 ==

== ENCOUNTER → 2020-12-25 13:38 | Outpatient (BNVA) | payer MEDICARE, SELFPAY | PROVIDERS: PCP Internal Medicine; Visit Provider Internal Medicine | DX: G47.33 Obstructive sleep apnea (adult) (pediatric) (principal); J98.4 Other disorders of lung; E66.01 Morbid (severe) obesity due to excess calories; Z79.899 Other long term (current) drug therapy | CPT/HCPCS: 99212 ==

== ENCOUNTER → 2021-01-03 13:35 | Outpatient (BNVA) | payer MEDICARE, SELFPAY | PROVIDERS: PCP Internal Medicine; Referring Provider Internal Medicine; Visit Provider Nurse Practitioner Family | DX: I11.0 Hypertensive heart disease with heart failure (principal); I50.22 Chronic systolic (congestive) heart failure; I42.9 Cardiomyopathy, unspecified; I25.10 Atherosclerotic heart disease of native coronary artery without angina pectoris; I47.2 Ventricular tachycardia; E78.5 Hyperlipidemia, unspecified; E11.9 Type 2 diabetes mellitus without complications; Z95.1 Presence of aortocoronary bypass graft; Z95.810 Presence of automatic (implantable) cardiac defibrillator; Z95.5 Presence of coronary angioplasty implant and graft | CPT/HCPCS: 99212 ==

== ENCOUNTER 2021-01-25 07:41 | Day surgery (SDC) | payer MEDICARE, SELFPAY ==
[2021-01-17 12:00] VITALS: BP 97/65; PULSE 76; RESP 20; O2SAT 97; BMI 47.6
--- NOTE | 2021-01-17 12:10 | HO.ANESPROP2 ---
HPI - Anesthesia Eval Consult details Narrative: Procedure done under Conscious Sedation with Dr Reza 65yo F for CARDIOMEMS Ayala for h/o PE s/p CABG 2018 BiV ICD in situ [facility] Active Problems Active Problems: All Active Problems (Updated 01/16/21 @ 08:44 by Ebony Valderrama RN) Restrictive lung disease (Acute) TAQUERIA treated with BiPAP (Acute) Morbid obesity (Acute) Biventricular ICD (implantable cardioverter-defibrillator) in place (Acute) CAD (coronary artery disease) (Acute) Chronic systolic heart failure (Acute) Diabetes mellitus (Acute) HLD (hyperlipidemia) (Acute) HTN (hypertension) (Acute) Past Medical History Medical History Acute on chronic systolic and diastolic heart failure, NYHA class 3 Anxiety and depression Atherosclerotic cardiovascular disease Biventricular ICD (implantable cardioverter-defibrillator) in place CAD (coronary artery disease) Cardiomyopathy Chronic systolic heart failure Congestive heart failure Diabetes mellitus Dyspnea Fatty liver HLD (hyperlipidemia) HTN (hypertension) Hx of myocardial infarction Hypoxia Leukocytosis Morbid obesity Non-rheumatic aortic stenosis NSVT (nonsustained ventricular tachycardia) TAQUERIA (obstructive sleep apnea) TAQUERIA treated with BiPAP Osteoarthritis Restrictive lung disease Transaminitis Family History Family History Father No problems noted. Mother No problems noted. Family history of problems with anesthesia: No Surgical History Surgical History History of cardiac cath History of cholecystectomy History of incision and drainage Hx of appendectomy Hx of CABG Hx of cardiac cath Hx of cardiac cath Status post coronary artery bypass graft Stented coronary artery History of Problems with Anesthesia: No Social History Social History Household Members: Family Housing: House Are you a primary senior care assistant to a significant other at home: No Do you presently have visiting nurse or other home services: No Alcohol intake: never Patient Tobacco Use Status: Former Tobacco user Quit Date: 2 months ago Cigarettes Per Day: 10 Years Smoked: 30 Second Hand Smoke Exposure: No service: No Current occupational status: unemployed Meds Allergies Allergy/AdvReac Type Severity Reaction Status Date / Time No Known Allergies Allergy Verified 01/25/21 08:08 Home Medications Medication Instructions Recorded Confirmed Last Taken Type atorvastatin 80 mg tablet 80 mg PO DAILY 02/27/20 01/16/21 07/20/20 History insulin aspart U-100 100 unit/mL 4 - 16 unit SUBCUT TID 06/26/20 01/16/21 07/20/20 20:00 History (3 mL) subcutaneous pen citalopram 20 mg tablet 20 mg PO DAILY 07/21/20 01/16/21 07/21/20 09:00 History insulin glargine 25 unit SUBCUT BEDTIME 07/21/20 01/16/21 07/20/20 History ipratropium 20 mcg-albuterol 100 1 puff INHALATION QID PRN 07/21/20 01/16/21 Unknown History mcg/actuation mist for inhalation (Combivent Respimat) bupropion HCl 150 mg tablet,12 hr 150 mg PO QAM 12/25/20 01/16/21 Unknown History sustained-release ipratropium 20 mcg-albuterol 100 1 puff INHALATION QID PRN 12/25/20 01/16/21 Unknown History mcg/actuation mist for inhalation (Combivent Respimat) cyclobenzaprine 5 mg tablet 5 mg PO BEDTIME 01/03/21 01/16/21 Unknown History Exam Exam Date and Time: January 17, 2021 1210 Height,Weight and Vital Signs: Height 4 ft 11 in Weight 107.048 kg Last Vital Signs Pulse 76 01/17/21 12:00 Resp 20 01/17/21 12:00 BP 97/65 01/17/21 12:00 Pulse Ox 97 01/17/21 12:00 Pertinent Lab Results Pertinent Lab Results: Laboratory Tests 07/22/20 12/17/20 04:25 10:12 WBC 8.2 Hgb 15.6 Hct 47.2 H Plt Count 129 L Sodium 143 Potassium 4.0 Chloride 105 Carbon Dioxide 26 BUN 27 H Creatinine 1.13 Narrative Narrative: ICD Interr 10/2020 [id number] No VT/VF No SVT/NSVT No shocks delivered AP 7% BP >99% ECHO 06/2020 Conclusions: - There is mild to moderate aortic valve stenosis. ? - The left ventricular systolic function is moderate to severely decreased.? The visually estimated ejection fraction is between? 25-30%.? There is moderate global hypokinesis. ? - Elevated filling pressures.? ? EKG 06/2020 Vent. Rate : 076 BPM ? ? Atrial Rate : 076 BPM ?? P-R Int : 112 ms? QRS Dur : 186 ms ? ? QT Int : 550 ms ? ? ? P-R-T Axes : 099 233 217 degrees ?? QTc Int : 618 ms ? A sensed V paced rhythm (possibly BiV) Abnormal ECG No significant changes when compared with the previous EKG? of 07 apr 2018 NM flaco perf SPECT rest & str 05/2020 Impression: ? 1.? Myocardial perfusion imaging study shows no evidence of any ischemia. Small fixed defect in the apex that could be from a prior infarct. 2.? Gated LVEF is 21% during stress and 23% during rest. 3. Transient ischemic dilatation not present but LV cavity is dilated. ? EKG component of the test reported separately. Airway Mallampati Class: II TM Dist: >3cm Neck ROM: Full Denture: Upper and Lower Heart: RRR - distant Lungs: CTA, dim bases, no fluid Assessment and Plan Assessment Anesthesia Assessment: Anesthesia Plan Discussed and PAT Visit Final Anesthetic Review Family History of Problems with Anesthesia: No History of Problems with Anesthesia: No
[2021-01-25] VITALS (15 sets, daily range): BP systolic 146–174; BP diastolic 52–78; PULSE 67–86; RESP 16–20; TEMP 36.3–36.9; O2SAT 96–100
[2021-01-25 08:39] LABS: Glucose, Whole Blood 224 mg/dL (60-115)
--- NOTE | 2021-01-25 11:42 | P.BOP_ITS ---
Brief Operative Note Date of Service: 01/25/21 Pre-op diagnosis: CHF Procedure: Cardiomems implant Implants: Cardiomems Surgeon: Jaycob Reza MD Anesthesia: other (Conscious sedation) Was an Electrical Engineering Draftsperson used for this Procedure?: No Estimated blood loss (mL): 20 Condition: stable Disposition: other
--- NOTE | 2021-01-25 11:50 | P.OP_ITS ---
Operative Note Operative Note Date of Service: 01/25/21 Narrative: Patient was consented and time-out was performed.? We injected 1% lidocaine and using fluoroscopy we accessed the right femoral vein with micropuncture.? After this we upsized our sheath using dilators to a 11 Hebrew sheath.? We performed right heart catheterization and recorded our findings. RA 8, RV 46/10, PAP 46/21 (29), PCWP 16. No cardiac output measurement was performed beause we did not have access to measuring mixed venous saturations in the operating room. We then performed left pulmonary arteriogram to choose location of the CardioMEMS implant. After this we placed? .018 wire through the [place] into the left pulmonary artery.? We walked [place] catheter out and advanced the CardioMEMS delivery catheter over the wire to the left pulmonary artery.? Using previous angiogram and bony landmarks we deployed the CardioMEMS into the left pulmonary artery. We removed the CardioMEMS delivery catheter and place a [place] catheter over the wire back into the pulmonary artery.? We again measured pulmonary artery pressures and did initial programming of the CardioMEMS device.? After this the [place] catheter was removed.? We then removed the 11- Fr sheath with manual compression and achieved hemostasis.? Patient tolerated the procedure well and there were no complications. She will resume her Xarelto tomorrow.
[2021-01-28] MEDS: Lidocaine HCl 1 % MPF 5 ML VIAL INFILTRATI (10:26)
== END 2021-01-25 16:56 | disposition home or self-care (01) ==
PROVIDERS: PCP Internal Medicine; Visit Provider Internal Medicine Cardiovascular Disease
DX: I11.0 Hypertensive heart disease with heart failure (principal); I50.42 Chronic combined systolic (congestive) and diastolic (congestive) heart failure; E11.9 Type 2 diabetes mellitus without complications; G47.33 Obstructive sleep apnea (adult) (pediatric); E78.5 Hyperlipidemia, unspecified; I25.10 Atherosclerotic heart disease of native coronary artery without angina pectoris; I42.9 Cardiomyopathy, unspecified; Z79.01 Long term (current) use of anticoagulants; Z79.4 Long term (current) use of insulin; Z95.810 Presence of automatic (implantable) cardiac defibrillator; Z79.899 Other long term (current) drug therapy; Z95.1 Presence of aortocoronary bypass graft; Z86.711 Personal history of pulmonary embolism; Z95.5 Presence of coronary angioplasty implant and graft
CPT/HCPCS: 33289; 82947; 99152; 99153; C1769; C1887; C1894; C2624; J2250; J3010; Q9967

== ENCOUNTER → 2021-02-26 14:36 | Outpatient (BNVA) | payer MEDICARE, SELFPAY | PROVIDERS: PCP Internal Medicine; Referring Provider Internal Medicine; Visit Provider Nurse Practitioner Family | DX: I11.0 Hypertensive heart disease with heart failure (principal); Z95.818 Presence of other cardiac implants and grafts; I42.9 Cardiomyopathy, unspecified; I25.10 Atherosclerotic heart disease of native coronary artery without angina pectoris; I47.2 Ventricular tachycardia; E78.5 Hyperlipidemia, unspecified; E11.9 Type 2 diabetes mellitus without complications; Z95.5 Presence of coronary angioplasty implant and graft; I50.22 Chronic systolic (congestive) heart failure; Z95.810 Presence of automatic (implantable) cardiac defibrillator; Z95.1 Presence of aortocoronary bypass graft | CPT/HCPCS: 99212 ==

== ENCOUNTER → 2021-04-04 09:31 | Outpatient (BNVA) | payer MEDICARE, SELFPAY | PROVIDERS: PCP Internal Medicine; Referring Provider Internal Medicine; Visit Provider Internal Medicine Cardiovascular Disease | DX: R42 Dizziness and giddiness (principal); I25.10 Atherosclerotic heart disease of native coronary artery without angina pectoris; I50.22 Chronic systolic (congestive) heart failure; Z95.810 Presence of automatic (implantable) cardiac defibrillator | CPT/HCPCS: 99212 ==

== ENCOUNTER → 2021-05-16 12:28 | Outpatient (BNVA) | payer MEDICARE, SELFPAY | PROVIDERS: PCP Internal Medicine; Referring Provider Internal Medicine; Visit Provider Nurse Practitioner Family | DX: I11.0 Hypertensive heart disease with heart failure (principal); I50.22 Chronic systolic (congestive) heart failure; I42.9 Cardiomyopathy, unspecified; I25.10 Atherosclerotic heart disease of native coronary artery without angina pectoris; I47.2 Ventricular tachycardia; E11.9 Type 2 diabetes mellitus without complications; I35.0 Nonrheumatic aortic (valve) stenosis; Z95.810 Presence of automatic (implantable) cardiac defibrillator; Z95.1 Presence of aortocoronary bypass graft; Z95.818 Presence of other cardiac implants and grafts; Z95.5 Presence of coronary angioplasty implant and graft | CPT/HCPCS: 99212 ==

== ENCOUNTER 2021-06-25 11:16 | Outpatient (REF) | payer MEDICARE, SELFPAY ==
[2021-06-25 11:55] LABS: MANUAL DIFF FLAG NO
[2021-06-25 12:29] LABS: Basophils Absolute Auto 0.1 X10*3/uL (0.0-0.2); Basophils Percent Auto 0.9 % (0-2); Eosinophils Absolute Auto 0.3 X10*3/uL (0.0-0.4); Eosinophils Percent Auto 3.8 % (0-4); Hematocrit 42.7 % (37.0-47.0); Hemoglobin 13.8 g/dl (12.0-16.0); Imm Gran Abs Auto 0.02 X10*3/uL (0.00-0.03); Imm Gran Pct Auto 0.3 % (0.0-0.4); Lymphocytes Percent Auto 45.3 % (20-40); Mean Corpuscular HGB Conc 32.3 g/dl (31.0-35.0); Mean Corpuscular Volume 92.8 fL (80.0-98.0); Monocytes Absolute Auto 0.5 X10*3/uL (0.1-1.2); Monocytes Percent Auto 6.9 % (2-11); Neutrophils Absolute Auto 2.8 x10*3/uL (2.0-8.3); Neutrophils Percent Auto 42.8 % (45-73); Platelet Count 112 X10*3/uL (160-400); Red Cell Distribution Width 14.2 % (11.0-16.0); White Blood Count 6.6 X10*3/uL (4.8-10.8)
[2021-06-25 13:12] LABS: Anion Gap 12 (12-20); Blood Urea Nitrogen 22 mg/dL (9-16); Carbon Dioxide 27 mmol/L (22-29); Chloride 102 mmol/L (96-108); Estimated Glomerular Filt Rate 50; Glucose Random 348 mg/dL (60-115); Sodium 137 mmol/L (135-145)
[2021-06-25 13:14] LABS: B Type Natriuretic Peptide 933 pg/mL (<100)
== END 2021-06-25 11:17 | disposition home or self-care (01) ==
LOC: HO.LAB 11:16
PROVIDERS: PCP Internal Medicine; Visit Provider Nurse Practitioner Family
DX: I50.22 Chronic systolic (congestive) heart failure (principal)
CPT/HCPCS: 36415; 80048; 83880; 85025

== ENCOUNTER → 2021-07-26 08:07 | Outpatient (REF) | payer OTHER, SELFPAY ==
--- NOTE | 2021-07-26 09:22 | CA_ITS ---
Transthoracic Echocardiogram Patient (Last, First, Middle): La Nena Castro M Gender: Female Date of : 1955 Age: 66 Procedure Date: 07/26/2021 Procedure Type: Transthoracic Echocardiogram Location: OP Height: 149.86 cm Weight: 107.05 kg BSA: 1.98 m2 Heart Rate: bpm BP: 112 / 70 mmHg Cloud Infrastructure Architect: YR/TO Referring MD: Mariel Arellano ICE [employer]AM SCOOPER-C Symptoms: I50.22 - Chronic systolic (congestive) heart failure Study Quality: Technically Difficult/Contrast ECG Rhythm: Sinus Conclusions: - The left ventricular systolic function is mildly decreased. The calculated ejection fraction is 44% by biplane method. - E/E prime ratio is >15, consistent with elevated filling pressures. Evidence suggests grade II (moderate) diastolic dysfunction. - There is mild to moderate aortic valve stenosis. - Mild pulmonary hypertension is present. Findings Procedure Information Contrast agent, definity, is being given per protocol without apparent complications. Left Ventricle Normal left ventricular cavity size. There is normal left ventricular wall thickness. The left ventricular systolic function is mildly decreased. The calculated ejection fraction is 44% by biplane method. There is mild global hypokinesis. E/E prime ratio is >15, consistent with elevated filling pressures. Evidence suggests grade II (moderate) diastolic dysfunction. Slight regional variation in contractility. Right Ventricle Normal right ventricular cavity size and systolic function. Atria The left atrium is moderately dilated. The right atrium is normal in size. Aortic Valve There is moderate calcification of the aortic valve. There is mild to moderate aortic valve stenosis. The mean gradient is 11 mmHg. The aortic valve area is 1.34 cm2. There is no aortic valve regurgitation. Dimensionless index 0.34. Stroke volume index 35cc. Mitral Valve There is mild mitral annular calcification. There is no mitral valve regurgitation. There is no mitral valve stenosis. Pulmonic Valve The pulmonic valve was not well visualized. Tricuspid Valve There is trace tricuspid valve regurgitation. The right ventricular systolic pressure is 40 mmHg. Mild pulmonary hypertension is present. Great Vessels The sinuses of valsalva and sino tubular ridge are normal in size. Venous The inferior vena cava is normal in size and collapses greater than 50% with inspiration. Pericardium/Pleural There is no evidence of pericardial effusion. Prior Study Comparison Changes noted compared to prior study dated: 07/23/2020. LVEF higher than before. Measurements 2D Linear Measurements IVSd: 0.83 0.6-0.9/0.6-1.0 cm LVIDd: 5.26 3.9-5.3/4.2-5.9 cm LVIDd Index: 2.66 2.4-3.2/2.2-3.1 cm/m2 LVIDs: 4.08 2.0-3.6 cm LVPWd: 0.93 0.7-1.1 cm LA Diam: 3.90 2.7-3.8/3.0-4.0 cm LAIDs Index: 1.97 1.5-2.3 cm/m2 LV Mass: 208.89 67-162/88-224 g LV Mass Index: 105.50 43-95/49-115 g/m2 LVOT Diam: 2.20 3.0+(-)1.3 cm 2D Systolic Function EF 4C: 43.90 >55% EF 2C: 45.10 >55% EF BiP: 44.30 >55% Mitral Valve MV Pk E: 1.08 MV PK A: 0.96 MV Decel Time: 192.00 E/A: 1.10 E'Lateral: 3.37 E'Medial: 4.79 E/E' Med: 22.50 E/E' Lat: 32.00 PHT: 56.00 MVA PHT: 3.93 Decel [place]: 5.59 Aortic Valve AoV Pk Jaswinder: 2.16 AoV Mn Jaswinder: 1.56 AoV VTI: 0.52 AoV Pk Grad: 19.00 Aov Mn Grad: 11.00 DONNA Cont.VTI: 1.34 LVOT LVOT Pk Jaswinder: 0.73 LVOT Mn Jaswinder: 0.50 LVOT VTI: 0.18 LVOT Pk Grad: 2.00 LVOT Mn Grad: 1.00 LVOT Diam: 2.20 LVOT Area: 3.80 Diastolic Function MV Pk E: 1.08 MV Pk A: 0.96 E/A: 1.10 E'Medial: 4.79 E/E' Med: 22.50 E' Laterial: 3.37 E/E' Lat: 32.00 Right Ventricle TAPSE (mm): 18.30 TVS' Jaswinder: 8.59 Tricuspid Valve TR Pk Jaswinder: 3.06 TR Pk Grad: 37.00 RA Press: 3.00 RVSP: 40.00 Great Vessels Aorta Sinus of Valsalva: 2.80 2.0-3.[address] [place]: 2.08 1.7-3.4 cm Ao Arch: 2.20 Updated in Other Vendor System with Status of Final Korey Cazares MD electronically signed on 07/28/2021 12:13:44 PM with status of Final
== END ==
LOC: HO.CARD 08:07
PROVIDERS: PCP Internal Medicine; Visit Provider Nurse Practitioner Family
DX: I50.22 Chronic systolic (congestive) heart failure (principal); I35.0 Nonrheumatic aortic (valve) stenosis
CPT/HCPCS: 93306; Q9957

== ENCOUNTER 2021-08-15 13:10 | Outpatient (REF) | payer OTHER, SELFPAY ==
[2021-08-15 15:15] LABS: B Type Natriuretic Peptide 214 pg/mL (<100)
[2021-08-15 17:54] LABS: Anion Gap 14 (12-20); Blood Urea Nitrogen 21 mg/dL (9-16); Calcium 9.7 mg/dL (8.4-10.2); Carbon Dioxide 25 mmol/L (22-29); Chloride 106 mmol/L (96-108); Estimated Glomerular Filt Rate 40; Potassium 3.6 mmol/L (3.3-5.1); Sodium 141 mmol/L (135-145)
[2021-08-15 19:41] LABS: Glucose Random 37 mg/dL (60-115)
== END 2021-08-15 13:11 | disposition home or self-care (01) ==
LOC: HO.LAB 13:10
PROVIDERS: Absent Provider Nurse Practitioner Family; PCP Internal Medicine; Referring Provider Internal Medicine; Visit Provider Internal Medicine Cardiovascular Disease
DX: I50.22 Chronic systolic (congestive) heart failure (principal); I25.10 Atherosclerotic heart disease of native coronary artery without angina pectoris; I35.0 Nonrheumatic aortic (valve) stenosis; Z95.810 Presence of automatic (implantable) cardiac defibrillator
CPT/HCPCS: 36415; 80048; 83880; 93005; 99212

== ENCOUNTER 2021-09-10 09:15 | Emergency (ER) | payer OTHER, SELFPAY ==
[2021-08-30 13:21] VITALS: BP 102/60; BP 110/70; BMI 46.0
--- NOTE | ~2021-09-10 | XR_ITS ---
EXAMINATION: XR HAND, LEFT CLINICAL INFORMATION: Fall. Injury to left ring finger. COMPARISON: Left hand radiographs dated 05/28/2015. TECHNIQUE: PA, lateral, and oblique views of the left hand. FINDINGS: Mildly displaced and slightly comminuted fracture through the 4th proximal phalanx with a dominant oblique component which appears to contact the ventral aspect of the proximal interphalangeal joint. The fracture gap measures up to 0.3 cm in greatest dimension. No additional fracture or dislocation. Joint space narrowing with marginal osteophyte scattered throughout the carpus as well as the metacarpophalangeal and interphalangeal joints, progressed when compared to the prior radiographs. XR/XR hand LT min 3V IMPRESSION: 1. Mildly displaced and comminuted fracture through the 4th proximal phalanx which contacts the anterior aspect of the proximal interphalangeal joint. 2. Osteoarthritis scattered throughout the carpal bones as well as the metacarpophalangeal and interphalangeal joints, progressed when compared to the prior radiographs.
[2021-09-10 09:22] VITALS: BP 187/85; PULSE 71; RESP 17; TEMP 36.1; O2SAT 97; BMI 45.2
--- NOTE | 2021-09-10 11:21 | ED_ITS ---
HPI - Extremity Problem General Chief complaint: Extremity Injury, Upper Stated complaint: l hand inj Time Seen by Provider: 09/10/21 10:37 Source: patient Mode of arrival: ambulatory Limitations: no limitations History of Present Illness HPI Narrative: 66-year-old female who injured her left ring finger yesterday when she fell while grabbing a door Patient is not sure entirely what happened, she did not strike her head, no loss of consciousness, patient is not on any blood thinners. Patient did not have any lightheadedness dizziness, chest pain, shortness of breath, prior to this incident. Patient states her pain is 10/10 MD Complaint: extremity pain and extremity swelling Onset (ago): day(s) (1) Pain Consistency: constant Location: left and upper extremity Severity scale (1-10): 10 Quality: aching Radiation: none Relieving factors: nothing Exacerbating factors: range of motion Associated symptoms: denies other symptoms Related Data Home Medications Medication Instructions Recorded Confirmed atorvastatin 80 mg tablet 80 mg PO DAILY 02/27/20 08/15/21 insulin aspart U-100 100 unit/mL 4 - 16 unit SUBCUT TID 06/26/20 08/15/21 (3 mL) subcutaneous pen citalopram 20 mg tablet 20 mg PO DAILY 07/21/20 08/15/21 insulin glargine 25 unit SUBCUT BEDTIME 07/21/20 08/15/21 bupropion HCl 150 mg tablet,12 hr 150 mg PO QAM 12/25/20 08/15/21 sustained-release ipratropium 20 mcg-albuterol 100 1 puff INHALATION QID PRN 12/25/20 08/15/21 mcg/actuation mist for inhalation (Combivent Respimat) cyclobenzaprine 5 mg tablet 5 mg PO BEDTIME 01/03/21 08/15/21 tramadol 50 mg tablet 50 mg PO BID PRN 02/26/21 08/15/21 Previous Rx's Medication Instructions Recorded rivaroxaban 20 mg tablet (Xarelto) 20 mg PO DAILY 90 Days #90 tab 01/14/21 sacubitril 49 mg-valsartan 51 mg 1 tab PO BID #60 tab 04/04/21 tablet (Entresto) carvedilol 25 mg tablet 25 mg PO BID 90 Days #180 tab 01/06/22 furosemide 40 mg tablet (Lasix) 80 mg PO BID 30 Days #120 tab 06/26/21 oxycodone 5 mg capsule 5 mg PO QID PRN #20 cap 09/10/21 Allergies Allergy/AdvReac Type Severity Reaction Status Date / Time No Known Allergies Allergy Verified 08/15/21 13:46 Review of Systems Constitutional: Constitutional: Denies body ache(s), Denies chills, Denies fatigue, Denies fever(s), Denies headache(s), Denies malaise and Denies weakness Eyes: Eyes: Denies diplopia ENT: Denies vertigo, Denies dizziness, Denies headache(s) and Denies throat swelling Cardiovascular: Cardiovascular: Denies chest pain, Denies syncope, Denies leg edema, Denies lightheadedness, Denies Loss of Consciousness, Denies palpitations and Denies dyspnea Respiratory: Respiratory: Denies chest congestion, Denies cough and Denies dyspnea Musculoskeletal: Musculoskeletal: Reports arthralgias, Reports joint swelling and Reports limited range of motion Comments: Left index finger pain and swelling Neurologic: Denies confusion, Denies vertigo, Denies dizziness, Denies syncope, Denies headache(s) and Denies weakness Psychiatric: Psychiatric: Denies anxiety, Denies confusion and Denies depression Endocrine: Endocrine: Denies fatigue and Denies palpitations Allergic/Immunologic: Allergic/Immunologic: Denies throat swelling PMFSH Past Medical History Medical History Acute on chronic systolic and diastolic heart failure, NYHA class 3 Anxiety and depression Atherosclerotic cardiovascular disease Biventricular ICD (implantable cardioverter-defibrillator) in place CAD (coronary artery disease) Cardiomyopathy Chronic systolic heart failure Congestive heart failure Diabetes mellitus Dyspnea Fatty liver HLD (hyperlipidemia) HTN (hypertension) Hx of myocardial infarction Hypoxia Leukocytosis Morbid obesity Non-rheumatic aortic stenosis NSVT (nonsustained ventricular tachycardia) TAQUERIA (obstructive sleep apnea) TAQUERIA treated with BiPAP Osteoarthritis Presence of CardioMEMS HF system Restrictive lung disease Transaminitis Surgical History History of cardiac cath History of cholecystectomy History of incision and drainage Hx of appendectomy Hx of CABG Hx of cardiac cath Hx of cardiac cath Status post coronary artery bypass graft Stented coronary artery Family History Family History Father No problems noted. Mother No problems noted. Social History Social History Household Members: Family Housing: House Are you a primary customer care team coach to a significant other at home: No Do you presently have visiting nurse or other home services: No Alcohol intake: never Patient Tobacco Use Status: Former Tobacco user Quit Date: 2020 Tobacco use type: Cigarette Cigarette Packs Per Day: 1 Years Smoked: 30 Second Hand Smoke Exposure: No service: No Current occupational status: unemployed Physical Exam Vital Signs: Vital Signs: Last Vital Signs Temp 96.9 F 09/10/21 09:22 Pulse 71 09/10/21 09:22 Resp 17 09/10/21 09:22 BP 187/85 H 09/10/21 09:22 Pulse Ox 97 09/10/21 09:22 BMI result Body Mass Index 45.2 Const: General: No confusion Nutritional Appearance: well nourished Orientation/consciousness: No confusion Limitations: no limitations Eyes: Conjunctivae: conjunctivae normal Pupils: Equal, round and reactive pupils present EOM: EOMs intact bilaterally Neck: Neck: Yes full ROM, Yes no lymphadenopathy and Yes supple Resp: Effort & Inspection: normal respiratory effort and able to speak in complete sentences Auscultation: clear to auscultation bilaterally, no crackles, no rales, no rhonchi and no wheezes Cardio: Rate: regular rate Rhythm: regular rhythm Heart sounds: S1 normal heart sound present and S2 normal heart sound present Skin: General skin exam: no rashes or lesions noted Neuro: General: No confusion Cranial nerves: Yes Equal, round and reactive pupils present Extrem: Left upper extremity: normal capillary refill and hand Details: normal capillary refill, neuromotor exam normal, neurosensory exam normal, tendon exam normal, tenderness Location: of the 4th digit Location: at the MCP joint and at the proximal phalanx and vascular exam Details: radial pulse present and normal capillary refill Psych: Appearance: grossly normal Affect: normal affect Attitude: cooperative Thought process: Normal thought process present Course Course Course Narrative: 66-year-old female presents with injury to her left ring finger that occurred when she grabbed a door and pulled on it and fell. On exam, patient has swollen and tender left index finger, patient is tender over her PIP, MCP, and metacarpal bone corresponding to her left 4th finger X-ray shows mildly displaced and comminuted fracture through the 4th proximal phalanx Dawood Valencia, who will see him in clinic. Splinted patient, counseled her to keep splint on until she is seen by Orthopedics, prescribed oxycodone, referred to orthopedics. Return precautions given. Patient verbalized agreement understanding of the plan XR/XR hand LT min 3V IMPRESSION: 1. Mildly displaced and comminuted fracture through the 4th proximal phalanx which contacts the anterior aspect of the proximal interphalangeal joint. ? 2. Osteoarthritis scattered throughout the carpal bones as well as the metacarpophalangeal and interphalangeal joints, progressed when compared to the prior radiographs. Discharge Plan Discharge Clinical Impression: Finger fracture, left Patient Disposition: Home, Self-Care Instructions: Finger Fracture (ED), R.I.C.E. Treatment (ED) Additional Instructions: Please call Orthopedics at the following number [phone] I have referred you to them, they should be calling you, but if you do not hear from them by this afternoon, please call for an appointment. Please leave the splint on until you are seen by them. Please rest, elevate your left hand I have prescribed pain medication to your pharmacy Please return to emergency room for any new or concerning symptoms Prescriptions: New oxycodone 5 mg capsule 5 mg PO QID PRN (Reason: pain) Qty: 20 0RF No Action Xarelto 20 mg tablet 20 mg PO DAILY 90 Days Qty: 90 3RF Rx Instructions: must administer with evening meal carvedilol 25 mg tablet 25 mg PO BID 90 Days Qty: 180 1RF Rx Instructions: must administer with a meal/food furosemide [Lasix] 40 mg tablet 80 mg PO BID 30 Days Qty: 120 3RF Rx Instructions: dose changes as directed by provider citalopram 20 mg tablet 20 mg PO DAILY 0RF insulin glargine 25 unit 25 unit subcut BEDTIME 0RF insulin aspart U-100 100 unit/mL (3 mL) insulin pen 4 - 16 unit subcut TID 0RF Entresto 49-51 mg tablet 1 tab PO BID Qty: 60 5RF atorvastatin 80 mg tablet 80 mg PO DAILY 0RF bupropion HCl 150 mg tablet sustained-release 12 hr 150 mg PO QAM 0RF Combivent Respimat 20-100 mcg/actuation mist 1 puff inhalation QID PRN (Reason: Wheezing) 0RF Rx Instructions: space evenly during waking hours cyclobenzaprine 5 mg tablet 5 mg PO BEDTIME 0RF tramadol 50 mg tablet 50 mg PO BID PRN0RF Referrals: Lacey Valle MD [Physician] - Interventions: ED Discharge Assessment Last Done: 09/10/21 11:42 Discharge Date/Time: 09/10/21 11:44
[2021-09-10] MEDS: oxyCODONE HCl Immed Release 5 MG TABLET PO (11:33)
== END 2021-09-10 11:44 | disposition home or self-care (01) ==
PROVIDERS: Emergency Provider Emergency Medicine; PCP Internal Medicine
DX: S62.611A Displaced fracture of proximal phalanx of left index finger, initial encounter for closed fracture (principal); W45.8XXA Other foreign body or object entering through skin, initial encounter; Y93.9 Activity, unspecified; Y92.9 Unspecified place or not applicable; Y99.9 Unspecified external cause status; Z87.891 Personal history of nicotine dependence; Z79.899 Other long term (current) drug therapy
CPT/HCPCS: 73130; 99283

== ENCOUNTER 2021-09-11 08:19 | Outpatient (REF) | payer OTHER, SELFPAY ==
[2021-09-10 15:36] VITALS: BP 102/60; BP 110/70; BMI 46.0
--- NOTE | ~2021-09-11 | XR_ITS ---
EXAMINATION: XR HAND, LEFT CLINICAL INFORMATION: Left hand pain. COMPARISON: 09/10/2021. TECHNIQUE: PA, lateral, and oblique views of the left hand. FINDINGS: There is no significant change in appearance of minimally displaced comminuted fracture of the distal and mid 4th proximal phalanx with extension of fracture line appearing to go into the proximal interphalangeal joint. There is again noted to be some soft tissue swelling present. About the major proximal fracture fragment on oblique view there is noted be displacement of a fracture fragment by approximately 3 mm. No periosteal new bone formation is appreciated. Fracture lines are still evident. There is again noted to be degenerative joint disease most prominent involving the distal interphalangeal joints with joint space narrowing and spurring. There is some degenerative spurring seen about the 1st carpometacarpal joint. There is no change in appearance of a few calcifications about the 5th metacarpophalangeal joint which may be posttraumatic in nature. XR/XR hand LT min 3V IMPRESSION: No significant change in appearance of minimally displaced left 4th proximal phalanx fracture. Changes of osteoarthritis.
== END 2021-09-11 08:20 | disposition home or self-care (01) ==
LOC: HO.HOSX 08:19
PROVIDERS: Visit Provider Orthopaedic Surgery
DX: S62.615A Displaced fracture of proximal phalanx of left ring finger, initial encounter for closed fracture (principal)
CPT/HCPCS: 73130; 99202

== ENCOUNTER 2021-09-25 08:26 | Outpatient (REF) | payer OTHER, SELFPAY ==
[2021-09-11 10:32] VITALS: BP 102/60; BP 110/70
[2021-09-24 09:54] VITALS: BP 110/70; BMI 46.0
--- NOTE | ~2021-09-25 | XR_ITS ---
EXAMINATION: XR HAND, LEFT CLINICAL INFORMATION: Pain. Follow-up fracture. COMPARISON: Previous x-ray most recent August 2021 TECHNIQUE: PA, lateral, and oblique views of the left hand. FINDINGS: There is a comminuted minimally displaced fracture of the proximal phalanx of the fourth finger. Fracture lines are still seen. No bony callus formation is seen. Alignment is unchanged. There is overlying soft tissue swelling. There is mild arthritis at the IP joints and MCP joints and first DETENTION joint. There is soft tissue swelling adjacent to the fracture. XR/XR hand LT min 3V IMPRESSION: No change in the comminuted minimally displaced fracture of the proximal phalanx of the fourth finger.
== END 2021-09-25 08:27 | disposition home or self-care (01) ==
LOC: HO.HOSX 08:26
PROVIDERS: Visit Provider Orthopaedic Surgery
DX: S62.615A Displaced fracture of proximal phalanx of left ring finger, initial encounter for closed fracture (principal); X58.XXXA Exposure to other specified factors, initial encounter; Y93.9 Activity, unspecified; Y92.9 Unspecified place or not applicable; Y99.9 Unspecified external cause status; Z79.899 Other long term (current) drug therapy
CPT/HCPCS: 73130; 99212

== ENCOUNTER 2021-10-15 09:16 | Outpatient (REF) | payer OTHER, SELFPAY ==
[2021-09-11 10:32] VITALS: BP 102/60; BP 110/70
[2021-09-24 09:54] VITALS: BP 110/70; BMI 46.0
--- NOTE | ~2021-10-15 | XR_ITS ---
EXAMINATION: XR HAND, LEFT CLINICAL INFORMATION: Fracture COMPARISON: Previous x-rays most recent 09/25/2021 TECHNIQUE: PA, lateral, and oblique views of the left hand. FINDINGS: There is no change in the comminuted minimally displaced fracture of the proximal phalanx of the fourth finger. Fracture lines are still seen without evidence of healing. There is mild arthritis at the IP joints and first FCI joint. There is soft tissue swelling adjacent to the fracture. There is soft tissue calcification adjacent to the proximal phalanx of the fifth finger. XR/XR hand LT min 3V IMPRESSION: No change in comminuted oblique displaced fracture of the proximal phalanx of the fourth finger.
== END 2021-10-15 09:17 | disposition home or self-care (01) ==
LOC: HO.HOSX 09:16
PROVIDERS: Visit Provider Orthopaedic Surgery
DX: M79.642 Pain in left hand (principal); S62.615A Displaced fracture of proximal phalanx of left ring finger, initial encounter for closed fracture; X58.XXXA Exposure to other specified factors, initial encounter; Y93.9 Activity, unspecified; Y92.9 Unspecified place or not applicable; Y99.8 Other external cause status
CPT/HCPCS: 73130

== ENCOUNTER 2021-10-25 08:29 | Outpatient (REF) | payer OTHER, SELFPAY ==
[2021-10-15 11:10] VITALS: BP 110/70; BMI 46.0
[2021-10-25 10:14] LABS: Anion Gap 13 (12-20); Blood Urea Nitrogen 12 mg/dL (9-16); Calcium 8.6 mg/dL (8.4-10.2); Carbon Dioxide 24 mmol/L (22-29); Chloride 106 mmol/L (96-108); Estimated Glomerular Filt Rate 52; Glucose Random 187 mg/dL (60-115); Potassium 4.1 mmol/L (3.3-5.1); Sodium 139 mmol/L (135-145)
[2021-10-25 10:24] LABS: B Type Natriuretic Peptide 482 pg/mL (<100)
== END 2021-10-25 08:30 | disposition home or self-care (01) ==
LOC: HO.LAB 08:29
PROVIDERS: PCP Internal Medicine; Visit Provider Nurse Practitioner Family
DX: I50.22 Chronic systolic (congestive) heart failure (principal)
CPT/HCPCS: 36415; 80048; 83880

== ENCOUNTER 2021-11-05 08:27 | Outpatient (RCR) | payer OTHER, SELFPAY ==
[2021-10-15 11:10] VITALS: BP 110/70; BMI 46.0
--- NOTE | 2021-11-05 11:26 | MHC.OT.EP ---
[address] [phone] Occupational Therapy Plan of Care Date of Evaluation: 11/05/21 Diagnosis: L Ring finger proximal phalanx fx Assessment: Pt. is a 66 y/o female referred to OT s/p 4th finger proximal phalanx fracture. Cast was removed on 10/15 and she is now 8 weeks post fracture. Pt. is not wearing any orthosis and is using her L hand for light movement and activity at home. She has restrictions for no heavy lifting. L ring finger range of motion is limited and she is experiencing pain at base of finger at night. A 54% limitation is reported per the Quick DASH assessment. Ongoing skilled OT is recommended to address previously noted barriers and return to PLOF. Frequency and Duration: The patient will be seen 2x/wk for 4 weeks Short Term Goals: Decrease L ring finger pain to <2/10 with ADL's Improve PIP/DIP flexion by 10 degrees Improve L furnace firer strength by 5# IND with AROM/stretching for HEP Community Organization Aide Goals: Pain free with BADL's/IADL's IND with progressive HEP Improve furnace firer strength to >30# Quick DASH score <20% Full composite fist without pain Treatment Plan: Therapeutic Exercise Therapeutic Activity Home Exercise Program Patient Education Edema Control ADL Training Ultrasound Paraffin Fluidotherapy MHP Cold Packs Joint Mobilization Soft Tissue Mobilization Electronically Signed By: Alejandra Jackson MS OTR/L Please Sign and return to therapist. Thank you once again for your referral.
== END 2022-02-19 14:44 | disposition home or self-care (01) ==
LOC: HO.OT 08:27
PROVIDERS: PCP Internal Medicine; Visit Provider Orthopaedic Surgery
DX: S62.615A Displaced fracture of proximal phalanx of left ring finger, initial encounter for closed fracture (principal)
CPT/HCPCS: 97110; 97165

== ENCOUNTER → 2022-02-13 14:31 | Outpatient (BNVA) | payer OTHER, SELFPAY ==
[2021-10-15 11:10] VITALS: BP 110/70; BMI 46.0
== END ==
PROVIDERS: PCP Internal Medicine; Visit Provider Nurse Practitioner Family
DX: I25.10 Atherosclerotic heart disease of native coronary artery without angina pectoris (principal); I35.0 Nonrheumatic aortic (valve) stenosis; I11.0 Hypertensive heart disease with heart failure; I50.22 Chronic systolic (congestive) heart failure
CPT/HCPCS: 93005; 99212

== ENCOUNTER → 2022-05-21 10:19 | Outpatient (BNVA) | payer OTHER, SELFPAY ==
[2021-10-15 11:10] VITALS: BP 110/70; BMI 46.0
== END ==
PROVIDERS: PCP Internal Medicine; Visit Provider Internal Medicine
DX: G47.33 Obstructive sleep apnea (adult) (pediatric) (principal); J98.4 Other disorders of lung; E66.01 Morbid (severe) obesity due to excess calories; Z68.42 Body mass index [BMI] 45.0-49.9, adult
CPT/HCPCS: 99212

== ENCOUNTER → 2022-07-31 08:15 | Outpatient (REF) | payer OTHER, SELFPAY ==
[2021-10-15 11:10] VITALS: BP 110/70; BMI 46.0
--- NOTE | 2022-07-31 08:20 | CA_ITS ---
Transthoracic Echocardiogram Patient (Last, First, Middle): La Nena Castro M Gender: Female Date of : 1955 Age: 67 Procedure Date: 07/31/2022 Procedure Type: Transthoracic Echocardiogram Location: OP Height: 149.86 cm Weight: 101.61 kg BSA: 1.93 m2 Heart Rate: 65 bpm BP: 122 / 76 mmHg Car Salesman: SB Referring MD: Mariel Arellano DONOR SUPPORT TECHNICIAN-C Criminal Justice Department Chair: Db Martino MD Symptoms: I25.10 - Atherosclerotic heart disease of [place] coronary artery without... Study Quality: Adequate w contrast ECG Rhythm: Ventriculary paced rhythm Conclusions: - 1. Low normal LV ejection fraction 45-50% with mild LVH with elevated filling pressures and regional wall motion abnormality suggestive of underlying coronary artery disease 2. [id number] aortic stenosis 3. Normal RV systolic pressure 4. No gross pericardial effusion Findings Procedure Information Contrast agent, definity, is being given per protocol without apparent complications. Left Ventricle Normal left ventricular cavity size. There is mildly increased left ventricular wall thickness. The left ventricular systolic function is mildly decreased. The visually estimated ejection fraction is between 45-50%. Spectral Doppler is indicative of an impaired relaxation filling pattern. Elevated filling pressures. E/E prime ratio is >15, consistent with elevated filling pressures. Wall Motion Rest Echo Findings The inferoseptal wall, the mid inferior, and apical septum segments are hypokinetic. The apex and basal inferior segments are akinetic. All other scored wall segments showed normal motion. Right Ventricle The right ventricle was not well visualized. Atria The left atrium is normal in size. Interatrial shunt cannot be excluded. The right atrium was not well visualized. Aortic Valve The aortic valve was not well visualized. There is mild calcification of the aortic valve. There is mild to moderate aortic valve stenosis. There is no aortic valve regurgitation. Mitral Valve There is mild anterior and posterior mitral leaflet thickening. There is mild mitral annular calcification. There is trace mitral valve regurgitation. There is no mitral valve stenosis. Pulmonic Valve The pulmonic valve was not well visualized. Tricuspid Valve The tricuspid valve was not well visualized. There is trace tricuspid valve regurgitation. The right ventricular systolic pressure is normal. The right ventricular systolic pressure is 20 mmHg. Normal right atrial pressure. There is no evidence of pulmonary hypertension. Great Vessels The aorta was not well visualized. The pulmonary artery was not well visualized. Venous The inferior vena cava is normal in size. Pericardium/Pleural There is no evidence of pericardial effusion. Prior Study Comparison Changes noted compared to prior study dated: 07/26/2021. RV systolic pressures are measured to be normal on this study Measurements 2D Linear Measurements IVSd: 1.32 0.6-0.9/0.6-1.0 cm LVIDd: 5.11 3.9-5.3/4.2-5.9 cm LVIDd Index: 2.65 2.4-3.2/2.2-3.1 cm/m2 LVIDs: 4.25 2.0-3.6 cm LVPWd: 1.22 0.7-1.1 cm LA Diam: 4.30 2.7-3.8/3.0-4.0 cm LAIDs Index: 2.23 1.5-2.3 cm/m2 LV Mass: 326.83 67-162/88-224 g LV Mass Index: 169.34 43-95/49-115 g/m2 LVOT Diam: 2.20 3.0+(-)1.3 cm 2D Systolic Function EF 4C: 49.10 >55% EF 2C: 51.30 >55% EF BiP: 50.90 >55% Mitral Valve MV Pk E: 0.90 MV PK A: 0.91 MV Decel Time: 220.00 E/A: 1.00 E'Lateral: 4.35 E'Medial: 4.35 E/E' Med: 20.60 E/E' Lat: 20.60 PHT: 65.00 MVA PHT: 3.38 Decel [place]: 4.06 Aortic Valve AoV Pk Jaswinder: 2.54 AoV Mn Jaswinder: 1.68 AoV VTI: 0.60 AoV Pk Grad: 26.00 Aov Mn Grad: 13.00 DONNA Cont.VTI: 1.19 LVOT LVOT Pk Jaswinder: 0.76 LVOT Mn Jaswinder: 0.52 LVOT VTI: 0.17 LVOT Pk Grad: 2.00 LVOT Mn Grad: 1.00 LVOT Diam: 2.20 LVOT Area: 3.80 Diastolic Function MV Pk E: 0.90 MV Pk A: 0.91 E/A: 1.00 E'Medial: 4.35 E/E' Med: 20.60 E' Laterial: 4.35 E/E' Lat: 20.60 Right Ventricle TAPSE (mm): 12.10 TVS' Jaswinder: 6.98 Tricuspid Valve TR Pk Jaswinder: 2.08 TR Pk Grad: 17.00 RA Press: 3.00 RVSP: 20.00 Great Vessels Aorta Sinus of Valsalva: 2.80 2.0-3.5 cm Ao Asc: 2.40 2.1-3.4 cm Ao Arch: 1.80 Pulmonary Veins Pulm Vein S/D 1.40 Pulmonary Valve PV Pk Jaswinder: 0.80 Peak PV Grad: 3.00 Updated in Other Vendor System with Status of Final Db Martino MD electronically signed on 08/01/2022 12:34:31 PM with status of Final
== END ==
LOC: HO.CARD 08:15
PROVIDERS: PCP Internal Medicine; Visit Provider Nurse Practitioner Family
DX: I25.10 Atherosclerotic heart disease of native coronary artery without angina pectoris (principal); I35.0 Nonrheumatic aortic (valve) stenosis; I50.22 Chronic systolic (congestive) heart failure
CPT/HCPCS: 93306; Q9957

== ENCOUNTER → 2022-08-14 09:07 | Outpatient (BNVA) | payer OTHER, SELFPAY ==
[2021-10-15 11:10] VITALS: BP 110/70; BMI 46.0
== END ==
PROVIDERS: PCP Internal Medicine; Referring Provider Internal Medicine; Visit Provider Internal Medicine Cardiovascular Disease
DX: Z45.02 Encounter for adjustment and management of automatic implantable cardiac defibrillator (principal); I50.22 Chronic systolic (congestive) heart failure; I25.10 Atherosclerotic heart disease of native coronary artery without angina pectoris; I35.0 Nonrheumatic aortic (valve) stenosis
CPT/HCPCS: 99212

== ENCOUNTER → 2022-10-24 23:59 | Outpatient (BNV) | payer OTHER, SELFPAY ==
[2021-10-15 11:10] VITALS: BP 110/70; BMI 46.0
--- NOTE | 2022-11-07 17:39 | MHC.OFFVIS ---
Intake Intake Visit Reasons: [facility] - [facility] Allergies No Known Allergies Allergy (Verified 11/05/22 13:08) PFSH Medical History Acute on chronic systolic and diastolic heart failure, NYHA class 3 Anxiety and depression Atherosclerotic cardiovascular disease Biventricular ICD (implantable cardioverter-defibrillator) in place CAD (coronary artery disease) Cardiomyopathy Chronic systolic heart failure Congestive heart failure Diabetes mellitus Dyspnea Fatty liver HLD (hyperlipidemia) HTN (hypertension) Hx of myocardial infarction Hypoxia Leukocytosis Morbid obesity Non-rheumatic aortic stenosis NSVT (nonsustained ventricular tachycardia) TAQUERIA (obstructive sleep apnea) TAQUERIA treated with BiPAP Osteoarthritis Presence of CardioMEMS HF system Restrictive lung disease Transaminitis Surgical History History of cardiac cath History of cholecystectomy History of incision and drainage Hx of appendectomy Hx of CABG Hx of cardiac cath Hx of cardiac cath Status post coronary artery bypass graft Stented coronary artery Family History Father No problems noted. Mother No problems noted. Social History Household Members: Family and Children Housing: Apartment Are you a primary nonfarm animal caretaker to a significant other at home: No Do you presently have visiting nurse or other home services: Yes (CCR every few months to check in) Alcohol intake: never Patient Tobacco Use Status: Former Tobacco user Quit Date: 2020 Tobacco use type: Cigarette Cigarette Packs Per Day: 1 Years Smoked: 30 e-Cigarette/Vaping Use: Former Use Second Hand Smoke Exposure: No service: No Current occupational status: unemployed and disabled Current occupation: rt hand Office Procedures Cardiac Device Check Cardiac Device Check Details: Monitoring period dates: 08/22- 09/23/2022 Optimal PA pressure range: CARI 28mmhg Procedure code: 64161 BACKGROUND: [place] is implanted with the CardioMEMS PA Sensor.? I use this technology to monitor PA pressures on a weekly basis to ensure patients are within their optimal range to prevent decompensation.? SUMMARY:? I utilized the remote monitoring platform ([employer]) to set optimal targets for pulmonary artery pressure thresholds as part of acute and chronic management of patient?s heart failure. During the period indicated above, I monitored the patient?s pulmonary artery pressures weekly via trend analysis and notification reports which provide alerts when patient?s PA pressures were outside of range to prompt immediate action in medication changes and communications.? The weekly reports are archived in the [employer] system which serve as a parallel record to document weekly PA pressures, medication changes, and clinical notes. I have reviewed readings on 09/26, 09/29, 10/03, 10/06, 10/13, 10/24. CARI has ranged 28-42mmhg. She is not consistently compliant with doing her readings. 34364 - Remote monitoring of wireless pulmonary artery pressure sensor Procedure code (CPT) selection complete Assessment & Plan Assessment & Plan Medications: Discontinued furosemide (2 x 40 mg) 80mg ( 2 tab) in the am and 40mg ( 1 tab) in the pm - additional dose if directed by provider to do so. 30 days 100 tabs 5RF metolazone Take one dose daily WHEN directed by provider to do so. 2.5 mg PO .prn PRN 10 tabs 3RF swelling rivaroxaban must administer with evening meal 20 mg PO DAILY 90 days 90 tabs 3RF Coding Level of Care Code Procedure Only Diagnoses CPT Codes Cardiac Device Check - Cardiac Device 17: 61511 - Remote monitoring of wireless pulmonary artery pressure sensor ([id number])
== END ==
PROVIDERS: PCP Internal Medicine; Visit Provider Nurse Practitioner Family
DX: I50.32 Chronic diastolic (congestive) heart failure (principal); Z95.818 Presence of other cardiac implants and grafts
CPT/HCPCS: 93264

== ENCOUNTER → 2022-11-04 23:59 | Outpatient (BNV) | payer OTHER, SELFPAY ==
[2021-10-15 11:10] VITALS: BP 110/70; BMI 46.0
--- NOTE | 2022-11-11 10:23 | MHC.OFFVIS ---
Intake Intake Visit Reasons: Remote ICD Check- [facility] Allergies No Known Allergies Allergy (Verified 11/05/22 13:08) [facility] Medical History Acute on chronic systolic and diastolic heart failure, NYHA class 3 Anxiety and depression Atherosclerotic cardiovascular disease Biventricular ICD (implantable cardioverter-defibrillator) in place CAD (coronary artery disease) Cardiomyopathy Chronic systolic heart failure Congestive heart failure Diabetes mellitus Dyspnea Fatty liver HLD (hyperlipidemia) HTN (hypertension) Hx of myocardial infarction Hypoxia Leukocytosis Morbid obesity Non-rheumatic aortic stenosis NSVT (nonsustained ventricular tachycardia) TAQUERIA (obstructive sleep apnea) TAQUERIA treated with BiPAP Osteoarthritis Presence of CardioMEMS HF system Restrictive lung disease Transaminitis Surgical History History of cardiac cath History of cholecystectomy History of incision and drainage Hx of appendectomy Hx of CABG Hx of cardiac cath Hx of cardiac cath Status post coronary artery bypass graft Stented coronary artery Family History Father No problems noted. Mother No problems noted. Social History Household Members: Family and Children Housing: Apartment Are you a primary social worker palliative care to a significant other at home: No Do you presently have visiting nurse or other home services: Yes (CCR every few months to check in) Alcohol intake: never Patient Tobacco Use Status: Former Tobacco user Quit Date: 2020 Tobacco use type: Cigarette Cigarette Packs Per Day: 1 Years Smoked: 30 e-Cigarette/Vaping Use: Former Use Second Hand Smoke Exposure: No service: No Current occupational status: unemployed and disabled Current occupation: rt hand Office Procedures Cardiac Device Check Cardiac Device Check Details: Remote ICD report generated November 04/2023. ICD function is adequate. Biventricular pacing 99% of the time [id number] Cardiac Interrogation, implant defibrillator w/interim Procedure code (CPT) selection complete Assessment & Plan Assessment & Plan Medications: Discontinued furosemide (2 x 40 mg) 80mg ( 2 tab) in the am and 40mg ( 1 tab) in the pm - additional dose if directed by provider to do so. 30 days 100 tabs 5RF metolazone Take one dose daily WHEN directed by provider to do so. 2.5 mg PO .prn PRN 10 tabs 3RF swelling rivaroxaban must administer with evening meal 20 mg PO DAILY 90 days 90 tabs 3RF Coding Level of Care Code Procedure Only Diagnoses CPT Codes Cardiac Device Check - Cardiac Device 13: [id number] Cardiac Interrogation, implant defibrillator w/interim ([id number])
== END ==
PROVIDERS: PCP Internal Medicine; Visit Provider Internal Medicine Cardiovascular Disease
DX: I50.22 Chronic systolic (congestive) heart failure (principal); Z95.810 Presence of automatic (implantable) cardiac defibrillator
CPT/HCPCS: 93295

== ENCOUNTER 2022-11-05 12:32 | Observation (INO) | payer OTHER, SELFPAY ==
[2021-10-15 11:10] VITALS: BP 110/70; BMI 46.0
[2022-11-05] VITALS (8 sets, daily range): BP systolic 136–152; BP diastolic 45–66; PULSE 63–77; RESP 12–18; TEMP 36.3–36.9; O2SAT 92–100; BMI 47.7
--- NOTE | ~2022-11-05 | XR_ITS ---
EXAMINATION: XR CHEST CLINICAL INFORMATION: Productive cough. Shortness of breath. Wheezing. COMPARISON: Chest x-ray 07/21/2020 TECHNIQUE: 2 views of the chest were obtained. FINDINGS: Status post median sternotomy. No change position of pacemaker leads in right atrium, right ventricle and coronary sinus. Heart size is normal. Cardiac mediastinal contours are normal. No pulmonary vascular congestion. Lungs are normally aerated. There is no pleural effusion and no pneumothorax. Multilevel degenerative spondylosis spine. XR/XR chest 2V IMPRESSION: No acute abnormality of the chest.
--- NOTE | 2022-11-05 13:07 | ED.GENADULT ---
HPI - General Adult General Chief complaint: Upper Respiratory Symptoms Stated complaint: cold Time Seen by Provider: 11/05/22 15:23 Source: patient, RN notes reviewed and old records reviewed Mode of arrival: ambulatory Limitations: no limitations History of Present Illness HPI narrative: 67 yo female with a history of COPD, TAQUERIA, DM, CHF, ICD in place, presents to the ED for evaluation of productive cough & SOB x2 days. Reports a few days ago she was notified her oxygen levels were high from her MEMS heart sensor. Reports mild chest discomfort from persistent cough. Has been using inhalers at home without relief. Denies fever, chills, headache, worsening pedal edema, dizziness, rhinorrhea, sore throat, abd pain, N/V/D, muscle aches, urinary symptoms, muscle aches or numbness. ? Onset (ago): day(s) Related Data Home Medications Medication Instructions Recorded Confirmed atorvastatin 80 mg tablet 80 mg PO DAILY 02/27/20 08/14/22 insulin aspart U-100 100 unit/mL 4 - 16 unit subcut TID 06/26/20 08/14/22 (3 mL) subcutaneous pen citalopram 20 mg tablet 20 mg PO DAILY 07/21/20 08/14/22 insulin glargine 25 unit subcut BEDTIME 07/21/20 08/14/22 bupropion HCl 150 mg tablet,12 hr 150 mg PO QAM 12/25/20 08/14/22 sustained-release Previous Rx's Medication Instructions Recorded furosemide 40 mg tablet (Lasix) 80 mg PO .COMPLEX 30 days #100 tabs 03/06/22 carvedilol 25 mg tablet 25 mg PO BID #180 tabs 04/15/22 ipratropium 20 mcg-albuterol 100 1 puff inhalation QID PRN 05/21/22 mcg/actuation mist for inhalation Wheezing/Sob. 90 days #4 grams (Combivent Respimat) metolazone 2.5 mg tablet 2.5 mg PO .prn PRN swelling #10 05/26/22 tabs sacubitril 97 mg-valsartan 103 mg 1 tab PO BID 90 days #180 tabs 06/11/22 tablet (Entresto) empagliflozin 10 mg tablet 10 mg PO DAILY #30 tabs 08/14/22 (Jardiance) rivaroxaban 20 mg tablet (Xarelto) 20 mg PO DAILY 90 days #90 tabs 10/31/22 Allergies Allergy/AdvReac Type Severity Reaction Status Date / Time No Known Allergies Allergy Verified 11/05/22 13:08 Review of Systems Review of Systems: Constitutional: No Fever, No Chills ENT/Mouth: No Ear Pain, No Nasal Congestion, No Sinus Pain, No Hoarseness, No sore throat, No Rhinorrhea, No Swallowing Difficulty Cardiovascular: No Chest Pain, +dyspnea Respiratory: +Cough, +Sputum, +Wheezing Gastrointestinal: No Nausea, No Vomiting, No Diarrhea, No Constipation, No Abdominal pain Musculoskeletal: No joint pain, No Myalgias, No Joint Swelling Skin: No Skin Lesions, No rash Neuro: No Weakness, No Numbness, No Paresthesias Yes all other systems are reviewed and are negative Constitutional: Constitutional: Reports as per [facility] Past Medical History Attestation statement: The following information was validated with the patient. Source: old records reviewed and other (patient) Medical History Acute on chronic systolic and diastolic heart failure, NYHA class 3 Anxiety and depression Atherosclerotic cardiovascular disease Biventricular ICD (implantable cardioverter-defibrillator) in place CAD (coronary artery disease) Cardiomyopathy Chronic systolic heart failure Congestive heart failure Diabetes mellitus Dyspnea Fatty liver HLD (hyperlipidemia) HTN (hypertension) Hx of myocardial infarction Hypoxia Leukocytosis Morbid obesity Non-rheumatic aortic stenosis NSVT (nonsustained ventricular tachycardia) TAQUERIA (obstructive sleep apnea) TAQUERIA treated with BiPAP Osteoarthritis Presence of CardioMEMS HF system Restrictive lung disease Transaminitis Surgical History History of cardiac cath History of cholecystectomy History of incision and drainage Hx of appendectomy Hx of CABG Hx of cardiac cath Hx of cardiac cath Status post coronary artery bypass graft Stented coronary artery Family History Family History Father No problems noted. Mother No problems noted. Social History Social History Household Members: Family Housing: House Are you a primary wound care rn to a significant other at home: No Do you presently have visiting nurse or other home services: No Alcohol intake: never Patient Tobacco Use Status: Former Tobacco user Quit Date: 2020 Tobacco use type: Cigarette Cigarette Packs Per Day: 1 Years Smoked: 30 Second Hand Smoke Exposure: No Advance Directives: No Advance Directives Information Provided: Yes service: No Current occupational status: unemployed and disabled Current occupation: rt hand Physical Exam ED Vital Signs: Vital Signs - 24 hr 11/05/22 13:08 11/05/22 16:11 11/05/22 16:28 Temperature 97.3 F 98.2 F Pulse Rate 69 69 63 Respiratory Rate 18 16 18 Blood Pressure 146/45 H 136/63 Pulse Oximetry 98 100 Oxygen Delivery Method Room Air Room Air 11/05/22 17:22 Temperature Pulse Rate 69 Respiratory Rate 18 Blood Pressure Pulse Oximetry Oxygen Delivery Method BMI result Body Mass Index 47.7 Const General: cooperative and no acute distress Nutritional Appearance: obese Orientation/consciousness: patient oriented x3 Limitations: no limitations HENMT Head: Yes normal to inspection and Yes atraumatic Ears: hearing grossly normal bilaterally General nose exam: Normal external nose present Face and sinus: Yes normal facial exam Eyes General: appearance normal, both eyes and all related structures EOM: EOMs intact bilaterally Neck Neck: Yes normal visual inspection and Yes no meningeal signs Resp Effort & Inspection: normal respiratory effort, audible wheezes, Actively coughing and no respiratory distress Auscultation: rhonchi throughout and wheezes expiratory wheezes and lower bilaterally Cardio Rate: regular rate Rhythm: regular rhythm Heart sounds: S1 normal heart sound present and S2 normal heart sound present GI Inspection: Yes normal to inspection Palpation (GI): Soft to palpation, nontender, no guarding and not rigid Skin Rashes: no rashes Wounds: no wounds Neuro General: patient oriented x3, tone normal and no meningeal signs Gait exam (Neuro): Normal gait present Extrem General: Yes normal to inspection, Yes full ROM, Yes no calf tenderness and Yes edema (Chronic per patient, nonpitting) Course Course Course Narrative: This is an RME: Additional HPI, ROS, PE not included below will be deferred to primary provider. Patient is a 67-year-old female with history of restrictive lung disease, aortic stenosis, TAQUERIA, biventricular ICD, chronic systolic heart failure, DM, HLD, HTN presenting to the emergency department with complaint of productive cough since yesterday. States sputum is clear. Denies fevers. Reports sore throat only with coughing. Denies shortness of breath or chest pain. -COVID-influenza/RSV negative XR chest 2V IMPRESSION: No acute abnormality of the chest. -183--no leukocytosis. H&H stable. GABINO with a BUN of 46, creatinine of 1.76 > likely from fluid overload -troponin 311.1 (elevated priors) > will obtain 3hr repeat. BNP 195 (chronically elevated) -1842--on re-evaluation patient still with diffuse coarse lung sounds > plan to admit for further management. IV magnesium ordered Medications Administered Discontinued Medications Generic Name Dose Route Start Last Admin Trade Name Freq PRN Reason Stop Dose Admin Albuterol Sulfate 2.5 mg/ 5 mg 11/05/22 16:56 11/05/22 17:21 Albuterol Sulfate 2.5 mg INHALE 11/05/22 16:57 5 mg ONCE ONE Administration Albuterol/Ipratropium 3 ml 11/05/22 15:55 11/05/22 16:09 Albuterol/Iprat 2.5/0.5mg 3 Ml Ampul.Neb INHALE 11/05/22 15:56 3 ml ONCE ONE Administration Methylprednisolone Sodium Succinate 125 mg 11/05/22 16:56 11/05/22 18:00 Methylprednisolone Sod Succ 125 Mg/2 Ml Vial IVPUSH 11/05/22 16:57 125 mg ONCE ONE Administration Medical Decision Making Medical Decision Making [facility] Narrative: 67 yo female with a history of COPD, TAQUERIA, DM, CHF, ICD in place, presents to the ED for evaluation of productive cough & SOB x2 days. On exam vital signs stable, NAD, audible wheeze appreciated with diffuse rhonchi & expiratory wheeze. Chronic nonpitting LE edema. Concern for COPD exacerbation vs pneumonia vs CHF vs viral illness vs bronchitis. Lower suspicion for ACS, PE/DVT, dissection Plan: EKG, labs, CXR, DuoNeb, IV Solu-Medrol, anticipate admission Please refer to course for remaining clinical decision making, interpretation of labs/imaging results, and discussions with consultants and/or family members. Differential Diagnosis Differential Diagnoses: The differential diagnosis associated with the presentation includes As above Admission/Observation Consideration of admission/observation: Escalation of care including admission/observation considered Consult Healthcare Provider Management of the patient was discussed with: Hospitalist Lab Data [facility] Lab Attestation statement: I reviewed the patient's lab results. 11/05/22 17:58 11/05/22 17:58 Labs: Lab Results 11/05/22 11/05/22 11/05/22 Range/Units 13:13 17:58 17:58 WBC 9.3 (4.8-10.8) X10*3/uL RBC 5.09 (4.20-5.50) X10*6/uL Hgb 15.4 (12.0-16.0) g/dl Hct 46.8 (37.0-47.0) % MCV 91.9 (80.0-98.0) fL MCH 30.3 (27.0-33.0) pg MCHC 32.9 (31.0-35.0) g/dl RDW 15.7 (11.0-16.0) % Plt Count 119 L (160-400) X10*3/uL MPV 12.7 H (9.4-12.3) fL Immature Gran % (Auto) 0.4 (0.0-0.4) % Neut % (Auto) 41.1 L (45-73) % Lymph % (Auto) 45.8 H (20-40) % [place] % (Auto) 8.0 (2-11) % Eos % (Auto) 4.1 H (0-4) % Baso % (Auto) 0.6 (0-2) % Lymph # (Auto) 4.3 (1.2-4.9) X10*3/uL [place] # (Auto) 0.8 (0.1-1.2) X10*3/uL Eos # (Auto) 0.4 (0.0-0.4) X10*3/uL Baso # (Auto) 0.1 (0.0-0.2) X10*3/uL Abs Immat Gran (auto) 0.04 H (0.00-0.03) X10*3/uL Absolute Neuts (auto) 3.8 (2.0-8.3) x10*3/uL Absolute Nucleated RBC 0.000 (0.0-0.012) X10*3/uL Nucleated RBC % (auto) 0.0 (0.0-0.2) /100WBC PT 11.5 (10.0-13.1) SEC INR 1.0 (0.9-1.1) Sodium (135-145) mmol/L Potassium (3.3-5.1) mmol/L Chloride (96-108) mmol/L Carbon Dioxide (22-29) mmol/L Anion Gap (12-20) BUN (9-16) mg/dL Creatinine (0.5-1.4) mg/dL Estim Creat Clear Calc Estimated GFR Random Glucose (60-115) mg/dL Calcium (8.4-10.2) mg/dL Total Bilirubin (0.0-1.0) mg/dL Direct Bilirubin (0.0-0.5) mg/dL AST (5-31) U/L ALT (0-31) U/L Alkaline Phosphatase (39-117) U/L Troponin I High Sens (<3.5-17.0) ng/L B-Natriuretic Peptide (<100) pg/mL Total Protein (6.5-8.0) g/dL Albumin (3.5-5.0) g/dL Influenza Type A (PCR) NEGATIVE (Negative) Influenza Type B (PCR) NEGATIVE (Negative) RSV RNA Qual (PCR) NEGATIVE (Negative) SARS-CoV-2 RNA (RT-PCR) NEGATIVE (Negative) 11/05/22 11/05/22 11/05/22 Range/Units 17:58 17:58 17:58 WBC (4.8-10.8) X10*3/uL RBC (4.20-5.50) X10*6/uL Hgb (12.0-16.0) g/dl Hct (37.0-47.0) % MCV (80.0-98.0) fL MCH (27.0-33.0) pg MCHC (31.0-35.0) g/dl RDW (11.0-16.0) % Plt Count (160-400) X10*3/uL MPV (9.4-12.3) fL Immature Gran % (Auto) (0.0-0.4) % Neut % (Auto) (45-73) % Lymph % (Auto) (20-40) % [place] % (Auto) (2-11) % Eos % (Auto) (0-4) % Baso % (Auto) (0-2) % Lymph # (Auto) (1.2-4.9) X10*3/uL [place] # (Auto) (0.1-1.2) X10*3/uL Eos # (Auto) (0.0-0.4) X10*3/uL Baso # (Auto) (0.0-0.2) X10*3/uL Abs Immat Gran (auto) (0.00-0.03) X10*3/uL Absolute Neuts (auto) (2.0-8.3) x10*3/uL Absolute Nucleated RBC (0.0-0.012) X10*3/uL Nucleated RBC % (auto) (0.0-0.2) /100WBC PT (10.0-13.1) SEC INR (0.9-1.1) Sodium 140 (135-145) mmol/L Potassium 3.9 (3.3-5.1) mmol/L Chloride 101 (96-108) mmol/L Carbon Dioxide 24 (22-29) mmol/L Anion Gap 19 (12-20) BUN 46 H (9-16) mg/dL Creatinine 1.76 H (0.5-1.4) mg/dL Estim Creat Clear Calc 33.2 Estimated GFR 29 Random Glucose 108 (60-115) mg/dL Calcium 10.0 D (8.4-10.2) mg/dL Total Bilirubin 1.2 H (0.0-1.0) mg/dL Direct Bilirubin 0.4 (0.0-0.5) mg/dL AST 22 (5-31) U/L ALT 19 (0-31) U/L Alkaline Phosphatase 120 H (39-117) U/L Troponin I High Sens 311.1 H* (<3.5-17.0) ng/L B-Natriuretic Peptide 195 H (<100) pg/mL Total Protein 7.8 (6.5-8.0) g/dL Albumin 4.2 (3.5-5.0) g/dL Influenza Type A (PCR) (Negative) Influenza Type B (PCR) (Negative) RSV RNA Qual (PCR) (Negative) SARS-CoV-2 RNA (RT-PCR) (Negative) Independent Interpretation I performed an independent interpretation of an: EKG ( my interpretation EKG is atrial sensed ventricular paced at a rate of 62. OH interval 124. QTC 503. No STEMI) Radiology Impression Discussion of test interpretation with radiology: I have reviewed the radiologist's reading. Independent Historian Clinical information obtained from an independent historian. History obtained from or confirmed by: Other (Daughter, granddaughter) External Record Review External record reviewed: Inpatient record, Office record, Outpatient record, Prior outpatient labs, Prior outpatient radiology, Primary care record and Outside ED record Tests considered The following testing was considered but not selected: As above Chronic Conditions Patient?s care impacted by: Diabetes and Other (TAQUERIA, CHF, CAD) Critical Care Time Critical Care Time Critical Care Time: Yes Total Critical Care Time: 35 Attestation: I have personally provided critical care time exclusive of time spent on separately billable procedures. Time includes review of lab data, radiology results, discussion with consultants, and monitoring for potential decompensation. Intervention performed as documented. Discharge Plan Discharge Clinical Impression: COPD with acute exacerbation, GABINO (acute kidney injury) Patient Disposition: Admitted As Inpatient
[2022-11-05 14:10] LABS: Influenza A PCR NEGATIVE (Negative); Influenza B PCR NEGATIVE (Negative); Resp Syncy Virus RNA Qual PCR NEGATIVE (Negative); SARS COV2 PCR INHOUSE NEGATIVE (Negative)
--- NOTE | 2022-11-05 15:58 | ED.URI ---
HPI - URI/Sore Throat General Chief Complaint: Upper Respiratory Symptoms Stated Complaint: cold Time Seen by Provider: 11/05/22 15:23 History of Present Illness HPI Narrative: 67 yo female with a history of asthma, COPD, DM, CHF presents to the ED for evaluation of productive cough. She reports that a few days ago she was notified that she had a small amount of fluid in her lungs. She then developed a productive cough with white phlegm that has progressively gotten worse. Related Data Home Medications Medication Instructions Recorded Confirmed atorvastatin 80 mg tablet 80 mg PO DAILY 02/27/20 08/14/22 insulin aspart U-100 100 unit/mL 4 - 16 unit subcut TID 06/26/20 08/14/22 (3 mL) subcutaneous pen citalopram 20 mg tablet 20 mg PO DAILY 07/21/20 08/14/22 insulin glargine 25 unit subcut BEDTIME 07/21/20 08/14/22 bupropion HCl 150 mg tablet,12 hr 150 mg PO QAM 12/25/20 08/14/22 sustained-release Previous Rx's Medication Instructions Recorded furosemide 40 mg tablet (Lasix) 80 mg PO .COMPLEX 30 days #100 tabs 03/06/22 carvedilol 25 mg tablet 25 mg PO BID #180 tabs 04/15/22 ipratropium 20 mcg-albuterol 100 1 puff inhalation QID PRN 05/21/22 mcg/actuation mist for inhalation Wheezing/Sob. 90 days #4 grams (Combivent Respimat) metolazone 2.5 mg tablet 2.5 mg PO .prn PRN swelling #10 05/26/22 tabs sacubitril 97 mg-valsartan 103 mg 1 tab PO BID 90 days #180 tabs 06/11/22 tablet (Entresto) empagliflozin 10 mg tablet 10 mg PO DAILY #30 tabs 08/14/22 (Jardiance) rivaroxaban 20 mg tablet (Xarelto) 20 mg PO DAILY 90 days #90 tabs 10/31/22 Allergies Allergy/AdvReac Type Severity Reaction Status Date / Time No Known Allergies Allergy Verified 11/05/22 13:08 COUNT INCLUDES THE [facility] Past Medical History Medical History Acute on chronic systolic and diastolic heart failure, NYHA class 3 Anxiety and depression Atherosclerotic cardiovascular disease Biventricular ICD (implantable cardioverter-defibrillator) in place CAD (coronary artery disease) Cardiomyopathy Chronic systolic heart failure Congestive heart failure Diabetes mellitus Dyspnea Fatty liver HLD (hyperlipidemia) HTN (hypertension) Hx of myocardial infarction Hypoxia Leukocytosis Morbid obesity Non-rheumatic aortic stenosis NSVT (nonsustained ventricular tachycardia) TAQUERIA (obstructive sleep apnea) TAQUERIA treated with BiPAP Osteoarthritis Presence of CardioMEMS HF system Restrictive lung disease Transaminitis Surgical History History of cardiac cath History of cholecystectomy History of incision and drainage Hx of appendectomy Hx of CABG Hx of cardiac cath Hx of cardiac cath Status post coronary artery bypass graft Stented coronary artery Family History Family History Father No problems noted. Mother No problems noted. Social History Social History Household Members: Family Housing: House Are you a primary geriatric personal care aide to a significant other at home: No Do you presently have visiting nurse or other home services: No Alcohol intake: never Patient Tobacco Use Status: Former Tobacco user Quit Date: 2020 Tobacco use type: Cigarette Cigarette Packs Per Day: 1 Years Smoked: 30 Second Hand Smoke Exposure: No Advance Directives: No Advance Directives Information Provided: Yes service: No Current occupational status: unemployed and disabled Current occupation: rt hand Physical Exam Vital Signs: Vital Signs: Last Vital Signs Temp 97.3 F 11/05/22 13:08 Pulse 69 11/05/22 13:08 Resp 18 11/05/22 13:08 BP 146/45 H 11/05/22 13:08 Pulse Ox 98 11/05/22 13:08 O2 Del Method Room Air 11/05/22 13:08 BMI result Body Mass Index 47.7 Medical Decision Making Lab Data Labs: Lab Results 11/05/22 Range/Units 13:13 Influenza Type A (PCR) NEGATIVE (Negative) Influenza Type B (PCR) NEGATIVE (Negative) RSV RNA Qual (PCR) NEGATIVE (Negative) SARS-CoV-2 RNA (RT-PCR) NEGATIVE (Negative) Discharge Plan Discharge Prescriptions: No Action furosemide [Lasix] 40 mg tablet 80 mg PO .COMPLEX 30 Days Qty: 100 5RF Rx Instructions: 80mg ( 2 tab) in the am and 40mg ( 1 tab) in the pm - additional dose if directed by provider to do so. carvedilol 25 mg tablet 25 mg PO BID Qty: 180 5RF metolazone 2.5 mg tablet 2.5 mg PO .prn PRN (Reason: swelling) Qty: 10 3RF Rx Instructions: Take one dose daily WHEN directed by provider to do so. Entresto 97-103 mg tablet 1 tab PO BID 90 Days Qty: 180 3RF Xarelto 20 mg tablet 20 mg PO DAILY 90 Days Qty: 90 3RF Rx Instructions: must administer with evening meal citalopram 20 mg tablet 20 mg PO DAILY insulin glargine 25 unit 25 unit subcut BEDTIME insulin aspart U-100 100 unit/mL (3 mL) insulin pen 4 - 16 unit subcut TID atorvastatin 80 mg tablet 80 mg PO DAILY bupropion HCl 150 mg tablet sustained-release 12 hr 150 mg PO QAM Jardiance 10 mg tablet 10 mg PO DAILY Qty: 30 5RF Combivent Respimat 20-100 mcg/actuation mist 1 puff inhalation QID PRN (Reason: Wheezing/Sob.) 90 Days Qty: 4 3RF Rx Instructions: space evenly during waking hours
[2022-11-05] MEDS: Albuterol/Iprat 2.5/0.5MG 3 ML AMPUL.NEB INHALE ×2 (16:09→21:46)
--- NOTE | 2022-11-05 16:41 | ECG_ITS ---
Test Reason : SOB Blood Pressure : / mmHG Vent. Rate : 062 BPM Atrial Rate : 062 BPM P-R Int : 124 ms QRS Dur : 124 ms QT Int : 496 ms P-R-T Axes : 061 243 069 degrees QTc Int : 503 ms Atrial-sensed ventricular-paced rhythm Biventricular pacemaker detected Abnormal ECG When compared with ECG of 21-JUL-2020 23:08, Previous ECG has undetermined rhythm, needs review Referred By: Ruth Brennan Electronically Signed By:AVTAR POLLACK MD
[2022-11-05] MEDS: Albuterol Sulfate 2.5 MG, Albuterol Sulfate (0.083%) 2.5 MG 5 MG INHALE (17:21)
[2022-11-05] MEDS: methylPREDNISolone Sod Succ 125 MG/2 ML VIAL IVPUSH (18:00)
[2022-11-05 18:07] LABS: MANUAL DIFF FLAG NO
[2022-11-05 18:17] LABS: Prothrombin Time 11.5 SEC (10.0-13.1)
[2022-11-05 18:29] LABS: Alanine Aminotransferase 19 U/L (0-31); Albumin Level 4.2 g/dL (3.5-5.0); Alkaline Phosphatase 120 U/L (39-117); Anion Gap 19 (12-20); Aspartate Amino Transferase 22 U/L (5-31); Bilirubin Direct 0.4 mg/dL (0.0-0.5); Bilirubin Total 1.2 mg/dL (0.0-1.0); Blood Urea Nitrogen 46 mg/dL (9-16); Carbon Dioxide 24 mmol/L (22-29); Chloride 101 mmol/L (96-108); Creatinine Clr Calc Pharmacy 33.2; Estimated Glomerular Filt Rate 29; Glucose Random 108 mg/dL (60-115); Potassium 3.9 mmol/L (3.3-5.1); Sodium 140 mmol/L (135-145); Total Protein 7.8 g/dL (6.5-8.0)
[2022-11-05 18:30] LABS: Basophils Absolute Auto 0.1 X10*3/uL (0.0-0.2); Basophils Percent Auto 0.6 % (0-2); Eosinophils Absolute Auto 0.4 X10*3/uL (0.0-0.4); Eosinophils Percent Auto 4.1 % (0-4); Hematocrit 46.8 % (37.0-47.0); Hemoglobin 15.4 g/dl (12.0-16.0); Imm Gran Abs Auto 0.04 X10*3/uL (0.00-0.03); Imm Gran Pct Auto 0.4 % (0.0-0.4); Lymphocytes Absolute Auto 4.3 X10*3/uL (1.2-4.9); Lymphocytes Percent Auto 45.8 % (20-40); Mean Corpuscular HGB Conc 32.9 g/dl (31.0-35.0); Mean Corpuscular Hemoglobin 30.3 pg (27.0-33.0); Mean Corpuscular Volume 91.9 fL (80.0-98.0); Mean Platelet Volume 12.7 fL (9.4-12.3); Monocytes Absolute Auto 0.8 X10*3/uL (0.1-1.2); Neutrophils Absolute Auto 3.8 x10*3/uL (2.0-8.3); Neutrophils Percent Auto 41.1 % (45-73); Platelet Count 119 X10*3/uL (160-400); Red Blood Count 5.09 X10*6/uL (4.20-5.50); Red Cell Distribution Width 15.7 % (11.0-16.0); White Blood Count 9.3 X10*3/uL (4.8-10.8)
[2022-11-05 18:35] LABS: B Type Natriuretic Peptide 195 pg/mL (<100)
[2022-11-05 18:37] LABS: Troponin-I High Sensitivity 311.1 ng/L (<3.5-17.0)
[2022-11-05] MEDS: Magnesium Sulfate/H2O 2 GM/50 ML PIGGYBACK IV (18:57)
--- NOTE | 2022-11-05 19:14 | PHA.MEDREC ---
Pharmacy Consult ? Medication Reconciliation Pharmacy has completed the medication reconciliation. Patient has a sensor on heart that transmits data to cardiology office. Per patient, office told her to increase lasix to 80 mg bid, and take the metolazone on thursday. Office tells her when to do that Jorge
--- NOTE | 2022-11-05 21:22 | P.HPHOSP_ITS ---
patient seen and examined, comes in with COPD exacerbation. Patient also found to have elevated troponin likely type 2 in the setting of hypoxia. Patient will be treated for COPD exacerbation, as well as GABINO with gentle hydration in the setting of a chronic heart failure. For full H&P History of Present Illness Date of Service: 11/05/22 Attending physician on admission: Yessy Al Chief Complaint: Wheezing, cough, SOB Pt is a 67-year-old female with a PMH significant for?COPD, TAQUERIA on CPAP at night, insulin-dependent diabetes type 2, HFrEF, CAD, ICD in place, and aortic stenosis who presents to the ED with?shortness of breath, wheezing, and mostly nonproductive cough x2 days. Patient states that yesterday she began experiencing shortness of breath, wheezing, and constant mostly nonproductive cough. Complains of chest discomfort with coughing. Patient's symptoms did not improve despite using her home inhalers, which prompted her visit to the ED. patient currently still smoking half a pack a day. Has chronic lower leg edema, says at baseline. Pt denies fever, chills, nausea, vomiting, diarrhea. No chest pain/pressure, palpitations. In the ED labs were significant for BUN 46, creatinine 1.76, initial troponin 311.1 with repeat 336.3, BNP 195 (below baseline). Electrolytes WNL. Patient tested negative for influenza type a and B, RSV, COVID. CXR showed no acute abnormality of the chest. EKG demonstrated atrial sensed ventricular paced rhythm without evidence of ST elevations or depressions. Pt was treated with DuoNebs, Solu-Medrol, magnesium sulfate. Pt will be admitted to the hospital under observation on telemetry for treatment and further evaluation of COPD exacerbation. Review of Systems Review of Systems: Wheezing, SOB x2 days Mostly nonproductive cough Chest discomfort with cough Denies chest pain/pressure, palpitations No fever, chills, nausea, vomiting, diarrhea, abdominal pain Yes all other systems are reviewed and are negative [facility] Medical History Acute on chronic systolic and diastolic heart failure, NYHA class 3 Anxiety and depression Atherosclerotic cardiovascular disease Biventricular ICD (implantable cardioverter-defibrillator) in place CAD (coronary artery disease) Cardiomyopathy Chronic systolic heart failure Congestive heart failure Diabetes mellitus Dyspnea Fatty liver HLD (hyperlipidemia) HTN (hypertension) Hx of myocardial infarction Hypoxia Leukocytosis Morbid obesity Non-rheumatic aortic stenosis NSVT (nonsustained ventricular tachycardia) TAQUERIA (obstructive sleep apnea) TAQUERIA treated with BiPAP Osteoarthritis Presence of CardioMEMS HF system Restrictive lung disease Transaminitis Family History Father No problems noted. Mother No problems noted. Surgical History History of cardiac cath History of cholecystectomy History of incision and drainage Hx of appendectomy Hx of CABG Hx of cardiac cath Hx of cardiac cath Status post coronary artery bypass graft Stented coronary artery Social History Household Members: Family Housing: House Are you a primary care specialist to a significant other at home: No Do you presently have visiting nurse or other home services: No Alcohol intake: never Patient Tobacco Use Status: Former Tobacco user Quit Date: 2020 Tobacco use type: Cigarette Cigarette Packs Per Day: 1 Years Smoked: 30 Second Hand Smoke Exposure: No Advance Directives: No Advance Directives Information Provided: Yes service: No Current occupational status: unemployed and disabled Current occupation: rt hand Meds Allergies Allergy/AdvReac Type Severity Reaction Status Date / Time No Known Allergies Allergy Verified 11/05/22 13:08 Home Medications Medication Instructions Recorded Confirmed Last Taken Type atorvastatin 80 mg tablet 80 mg PO BEDTIME 02/27/20 11/05/22 11/04/22 History insulin aspart U-100 100 unit/mL 3 - 5 unit subcut TID 06/26/20 11/05/22 11/04/22 History (3 mL) subcutaneous pen citalopram 20 mg tablet 20 mg PO DAILY 07/21/20 11/05/22 11/04/22 History furosemide 40 mg tablet (Lasix) 80 mg PO BID 11/05/22 11/05/22 11/04/22 History insulin glargine 100 unit/mL (3 28 unit subcut BEDTIME 11/05/22 11/05/22 11/04/22 History mL) subcutaneous pen (Lantus Solostar U-100 Insulin) metolazone 2.5 mg tablet 2.5 mg PO DAILY PRN Edema 11/05/22 11/05/22 10/31/22 History rivaroxaban 20 mg tablet (Xarelto) 20 mg PO DAILY@1700 11/05/22 11/05/22 11/04/22 History Physical Exam Vital Signs and Narrative: Vital Signs: Last Vital Signs Temp 98.5 F 11/05/22 19:46 Pulse 72 11/05/22 19:46 Resp 12 11/05/22 19:46 BP 152/52 H 11/05/22 19:46 Pulse Ox 96 11/05/22 19:46 O2 Del Method Room Air 11/05/22 19:46 BMI result Body Mass Index 47.7 Constitutional: Alert, in no acute distress. Audible wheezing. Mental Status: Oriented to person, place and time. Eyes: Pupils are equal, round, and reactive to light. Ear, Nose, and Throat: Oropharynx clear, mucous membranes moist. Ears and nose without deformities. Trachea midline. Respiratory: Diffuse wheezing and rhonchi. Cardiovascular: S1, S2 regular. No murmurs, rubs, or gallops. Gastrointestinal: Abdomen soft, non-tender, non-distended. Normal bowel sounds. Neurologic: Cranial nerves II-XII are grossly intact bilaterally. No focal neurological deficits. Moves all extremities spontaneously. Skin: No rashes or lesions noted. Musculoskeletal: No cyanosis or clubbing. Extremities: Bilateral 1+ pitting lower leg edema, chronic per pt. Psychiatric: Normal mood and affect. Results Labs 11/05/22 17:58 11/05/22 17:58 Labs: Laboratory Results - last 24 hr 11/05/22 11/05/22 11/05/22 13:13 17:58 17:58 MCV 91.9 MCH 30.3 MCHC 32.9 RDW 15.7 Plt Count 119 L MPV 12.7 H Immature Gran % (Auto) 0.4 Neut % (Auto) 41.1 L Lymph % (Auto) 45.8 H [place] % (Auto) 8.0 Eos % (Auto) 4.1 H Baso % (Auto) 0.6 Lymph # (Auto) 4.3 [place] # (Auto) 0.8 Eos # (Auto) 0.4 Baso # (Auto) 0.1 Abs Immat Gran (auto) 0.04 H Absolute Neuts (auto) 3.8 Absolute Nucleated RBC 0.000 Nucleated RBC % (auto) 0.0 PT 11.5 INR 1.0 Anion Gap Estim Creat Clear Calc Estimated GFR Random Glucose Calcium Total Bilirubin Direct Bilirubin AST ALT Alkaline Phosphatase Troponin I High Sens B-Natriuretic Peptide Total Protein Albumin Influenza Type A (PCR) NEGATIVE Influenza Type B (PCR) NEGATIVE RSV RNA Qual (PCR) NEGATIVE SARS-CoV-2 RNA (RT-PCR) NEGATIVE 11/05/22 11/05/22 11/05/22 17:58 17:58 17:58 MCV MCH MCHC RDW Plt Count MPV Immature Gran % (Auto) Neut % (Auto) Lymph % (Auto) [place] % (Auto) Eos % (Auto) Baso % (Auto) Lymph # (Auto) [place] # (Auto) Eos # (Auto) Baso # (Auto) Abs Immat Gran (auto) Absolute Neuts (auto) Absolute Nucleated RBC Nucleated RBC % (auto) PT INR Anion Gap 19 Estim Creat Clear Calc 33.2 Estimated GFR 29 Random Glucose 108 Calcium 10.0 D Total Bilirubin 1.2 H Direct Bilirubin 0.4 AST 22 ALT 19 Alkaline Phosphatase 120 H Troponin I High Sens 311.1 H* B-Natriuretic Peptide 195 H Total Protein 7.8 Albumin 4.2 Influenza Type A (PCR) Influenza Type B (PCR) RSV RNA Qual (PCR) SARS-CoV-2 RNA (RT-PCR) Imaging Radiologist's Impressions: Impressions Chest X-Ray 11/05/22 16:42 IMPRESSION: No acute abnormality of the chest. Assessment and Plan (1) COPD with acute exacerbation: Status: Acute (2) GABINO (acute kidney injury): Status: Acute Plan Pt is a 67-year-old female with a PMH significant for?COPD, TAQUERIA on CPAP at night, insulin-dependent diabetes type 2, HFrEF, CAD, ICD in place, and aortic stenosis who presents to the ED with?shortness of breath, wheezing, and mostly nonproductive cough x2 days. Pt will be admitted to the hospital under observation on telemetry for treatment and further evaluation of COPD exacerbation. Acute on chronic COPD exacerbation Patient with wheezing SOB since yesterday No relief from home inhalers, little from multiple treatments in ED Solu-Medrol IV 40 mg q12h DuoNebs q4 while awake and p.r.n. Continue home maintenance inhalers Guaifenesin for cough GABINO Creatinine 1.76 Likely secondary to dehydration in the setting of fluid restriction and diuretic use Gentle fluid resuscitation at 80 mls/hr Follow BMP Elevated troponins It initial troponin 311.1 with repeat essentially flat at 336.3, no delta Patient with chronically elevated troponins Likely driven by hypoxia No treatment indicated at this time Monitor on telemetry HFrEF Likely not in acute exacerbation: CXR negative, BNP below baseline, no increase in lower leg edema Continue home diuretics Continue fluid restriction HLD Continue home meds HTN Continue home meds Insulin-dependent diabetes Lantus, sliding scale insulin Diabetic diet TAQUERIA Continue CPAP at night Nicotine dependence Currently smokes half pack cigarettes a day Nicotine replacement therapy Nicotine cessation encouraged Full Code Attending:?Dr. Erwin DVT Prophylaxis: On Xarelto Patient will be admitted to the hospital under observation on telemetry for treatment and further evaluation of COPD exacerbation. Time Spent With Patient Time: Total time managing care of this patient today ____ minutes. Quality Stroke Does the patient have a stroke diagnosis?: No VTE Prior VTE?: No VTE Risk Level:: Medical - moderate - high VTE Device Contraindication: Treatment Not Indicated VTE Drug Contraindication: N/A - Med Ordered
[2022-11-05 21:37] LABS: Troponin-I High Sensitivity 336.3 ng/L (<3.5-17.0)
[2022-11-05] MEDS: Rivaroxaban 20 MG TABLET PO (22:03)
[2022-11-05] MEDS: Atorvastatin Calcium 80 MG TABLET PO (22:03)
[2022-11-05] MEDS: Insulin Glargine,Hum.rec.anlog 100 UNIT/ML 10 ML VIAL 19 UNIT SUBCUT (22:03)
[2022-11-05] MEDS: carvediloL 25 MG TABLET PO (22:03)
[2022-11-05] MEDS: Furosemide 40 MG TABLET 80 MG PO (22:03)
[2022-11-05 22:06] LABS: Glucose, Whole Blood 297 mg/dL (60-115)
[2022-11-05] MEDS: Lactated Ringers 1,000 ML 80 ML IVCONT (22:09)
[2022-11-06 00:30] VITALS: BMI 45.4
[2022-11-06] MEDS: Sacubitril/Valsartan 97/103 1 TAB TABLET PO ×2 (03:02→10:33)
[2022-11-06] MEDS: 0.9 % Sodium Chloride Flush 3 ML SYRINGE IVFLUSH (03:03)
[2022-11-06 03:28] VITALS: BP 107/47; PULSE 59; RESP 20; TEMP 36.3; O2SAT 94
[2022-11-06 06:57] LABS: Hematocrit 47.1 % (37.0-47.0); Hemoglobin 15.5 g/dl (12.0-16.0); Mean Corpuscular HGB Conc 32.9 g/dl (31.0-35.0); Mean Corpuscular Hemoglobin 30.2 pg (27.0-33.0); Mean Corpuscular Volume 91.8 fL (80.0-98.0); Mean Platelet Volume 12.7 fL (9.4-12.3); Platelet Count 117 X10*3/uL (160-400); Red Blood Count 5.13 X10*6/uL (4.20-5.50); Red Cell Distribution Width 15.3 % (11.0-16.0)
[2022-11-06 07:40] VITALS: PULSE 62; RESP 20; O2SAT 93
[2022-11-06] MEDS: Albuterol/Iprat 2.5/0.5MG 3 ML AMPUL.NEB INHALE ×2 (07:40→11:35)
[2022-11-06 07:47] VITALS: BP 168/72; PULSE 60; RESP 20; TEMP 36.3; O2SAT 100
[2022-11-06 07:58] LABS: Anion Gap 15 (12-20); Blood Urea Nitrogen 47 mg/dL (9-16); Calcium 9.7 mg/dL (8.4-10.2); Carbon Dioxide 28 mmol/L (22-29); Chloride 100 mmol/L (96-108); Estimated Glomerular Filt Rate 33; Glucose Random 362 mg/dL (60-115); Sodium 139 mmol/L (135-145)
[2022-11-06] MEDS: Escitalopram Oxalate 10 MG TABLET PO (10:33)
[2022-11-06] MEDS: carvediloL 25 MG TABLET PO (10:33)
[2022-11-06] MEDS: Empagliflozin 10 MG TABLET PO (10:33)
[2022-11-06] MEDS: Furosemide 40 MG TABLET 80 MG PO (10:33)
[2022-11-06 11:21] VITALS: BP 160/70; PULSE 58; RESP 20; TEMP 36.6; O2SAT 97
[2022-11-06 11:37] VITALS: PULSE 60; RESP 20; O2SAT 96
--- NOTE | 2022-11-06 12:52 | MHC.CM.PN ---
Addendum entered by Mari Deshpande RN 11/06/22 13:33: PT'S DTR MICHELLE WILL ARRANGE LYFT TRANSPORT FOR PT, PT AWARE. Original Note: [facility] AND [facility]MM DELIEVERED TO PT AT BEDSIDE PT WAS ADMITTED ON OBS AND MET FOR INPT, PT REPORTS SHE LIVES [place], PT INDEP W/ALL CARE, HAS A CANE AT HOME BUT DOES NOT USE IT, PT FULLY VACCINATED FOR COVID 19 AND HCP OBTAINED FROM [facility], SON TAYO ANDRE [phone] IS PT'S [facility] AND DTR MICHELLE STANFORD [phone] IS ALTERNATE. ANTIC PT WILL D/C HOME NO SERVICES AND WOULD LIKE [facility] IF DISCHARGE IS EARLY ENOUGH
--- NOTE | 2022-11-06 13:01 | PM.DS ---
DS: Providers Provider Date of Service: 11/06/22 Date of admission: 11/05/22 21:26 Primary care physician: Carmina Martins MD DS: Diagnosis Discharge Diagnosis (1) COPD with acute exacerbation: Status: Acute (2) GABINO (acute kidney injury): Status: Acute DS: Summary Hospital Course Hospital Course: Date of Service: 11/05/22 Attending physician on admission: Yessy Al Chief Complaint: Wheezing, cough, SOB Pt is a 67-year-old female with a PMH significant for?COPD, TAQUERIA on CPAP at night, insulin-dependent diabetes type 2, HFrEF, CAD, ICD in place, and aortic stenosis who presents to the ED with?shortness of breath, wheezing, and mostly nonproductive cough x2 days.? Patient states that yesterday she began experiencing shortness of breath, wheezing, and constant mostly nonproductive cough. Complains of chest discomfort with coughing. Patient's symptoms did not improve despite using her home inhalers, which prompted her visit to the ED. patient currently still smoking half a pack a day.? Has chronic lower leg edema, says at baseline. Pt denies fever, chills, nausea, vomiting, diarrhea.? No chest pain/pressure, palpitations.? In the ED labs were significant for BUN 46, creatinine 1.76, initial troponin 311.1 with repeat 336.3, BNP 195 (below baseline).? Electrolytes WNL.? Patient tested negative for influenza type a and B, RSV, COVID. CXR showed no acute abnormality of the chest. EKG demonstrated atrial sensed ventricular paced rhythm without evidence of ST elevations or depressions. Pt was treated with DuoNebs, Solu-Medrol, magnesium sulfate. Pt will be admitted to the hospital under observation on telemetry for treatment and further evaluation of COPD exacerbation. Hospital course: 67-year-old female with a PMH significant for?COPD, TAQUERIA on CPAP at night, insulin-dependent diabetes type 2, HFrEF, CAD, ICD in place, and aortic stenosis who presents to the ED with?shortness of breath, wheezing, and mostly nonproductive cough x2 days. Pt will be admitted to the hospital under observation on telemetry for treatment and further evaluation of COPD exacerbation. Acute on chronic COPD exacerbation admitted to medical floor treated with IV Solu Medrol and DuoNeb q4 while awake and p.r.n. patient symptoms rapidly resolved, noted to have normal oxygenation, patient is eager to be discharged home therefore will discharge home on low dose steroids strongly recommend to abstain from smoking continue nicotine patch and home inhalers GABINO Creatinine 1.76 on admission likely pre renal treated with IV fluids creatinine trended down to 1.5 recommend fluids and close outpatient PCP follow-up Elevated troponins , initial troponin 311.1 with repeat essentially flat at 336.3, no delta,Patient with chronically elevated troponins likely due to renal failure and hypoxia, patient asymptomatic, EKG showed no ischemic changes No treatment indicated. HFrEF not in acute exacerbation:? CXR negative, BNP below baseline, no increase in lower leg edema,Continue home diuretics HLD Continue home meds HTN stable , Continue home meds Insulin-dependent diabetes Lantus, sliding scale insulin and Diabetic diet TAQUERIA Continue CPAP at night Nicotine dependence counseling done will discharge home on nicotine patch Time Spent with Patient Time attestation: Total time managing care of this patient today ____ minutes. Discharge coordination time: Greater than 30 minutes Quality: Safe Use of Opioids Does Pt have an Active Cancer Diagnosis on the Problem List?: No Quality: Stroke Does the patient have a stroke diagnosis?: No Physical Exam Vital Signs: Vital Signs: Last Vital Signs Temp 97.9 F 11/06/22 11:21 Pulse 60 11/06/22 11:37 Resp 20 11/06/22 11:37 BP 160/70 H 11/06/22 11:21 Pulse Ox 97 11/06/22 11:21 O2 Del Method Room Air 11/06/22 11:21 BMI result Body Mass Index 45.4 Const: Other: General patient resting comfortably in no acute distress. Neck is supple no JVD. CVS regular rate rhythm, Respiratory lungs clear to auscultation, no respiratory distress, no wheeze, no rhonchi. Gastrointestinal abdomen soft, nontender, bowel sounds audible, no guarding , no rigidity. Extremities no edema. Neuro nonfocal Skin no rash Psych appropriate affect DS: Data Data Completed and Pending Labs on day of discharge: Laboratory Results - last 24 hr 11/05/22 11/05/22 11/05/22 13:13 17:58 17:58 WBC 9.3 RBC 5.09 Hgb 15.4 Hct 46.8 MCV 91.9 MCH 30.3 MCHC 32.9 RDW 15.7 Plt Count 119 L MPV 12.7 H Immature Gran % (Auto) 0.4 Neut % (Auto) 41.1 L Lymph % (Auto) 45.8 H [place] % (Auto) 8.0 Eos % (Auto) 4.1 H Baso % (Auto) 0.6 Lymph # (Auto) 4.3 [place] # (Auto) 0.8 Eos # (Auto) 0.4 Baso # (Auto) 0.1 Abs Immat Gran (auto) 0.04 H Absolute Neuts (auto) 3.8 Absolute Nucleated RBC 0.000 Nucleated RBC % (auto) 0.0 PT 11.5 INR 1.0 Sodium Potassium Chloride Carbon Dioxide Anion Gap BUN Creatinine Estim Creat Clear Calc Estimated GFR POC Glucose Random Glucose Calcium Total Bilirubin Direct Bilirubin AST ALT Alkaline Phosphatase Troponin I High Sens B-Natriuretic Peptide Total Protein Albumin Influenza Type A (PCR) NEGATIVE Influenza Type B (PCR) NEGATIVE RSV RNA Qual (PCR) NEGATIVE SARS-CoV-2 RNA (RT-PCR) NEGATIVE 11/05/22 11/05/22 11/05/22 17:58 17:58 17:58 WBC RBC Hgb Hct MCV MCH MCHC RDW Plt Count MPV Immature Gran % (Auto) Neut % (Auto) Lymph % (Auto) [place] % (Auto) Eos % (Auto) Baso % (Auto) Lymph # (Auto) [place] # (Auto) Eos # (Auto) Baso # (Auto) Abs Immat Gran (auto) Absolute Neuts (auto) Absolute Nucleated RBC Nucleated RBC % (auto) PT INR Sodium 140 Potassium 3.9 Chloride 101 Carbon Dioxide 24 Anion Gap 19 BUN 46 H Creatinine 1.76 H Estim Creat Clear Calc 33.2 Estimated GFR 29 POC Glucose Random Glucose 108 Calcium 10.0 D Total Bilirubin 1.2 H Direct Bilirubin 0.4 AST 22 ALT 19 Alkaline Phosphatase 120 H Troponin I High Sens 311.1 H* B-Natriuretic Peptide 195 H Total Protein 7.8 Albumin 4.2 Influenza Type A (PCR) Influenza Type B (PCR) RSV RNA Qual (PCR) SARS-CoV-2 RNA (RT-PCR) 11/05/22 11/05/22 11/06/22 21:03 22:02 06:38 WBC 6.0 RBC 5.13 Hgb 15.5 Hct 47.1 H MCV 91.8 MCH 30.2 MCHC 32.9 RDW 15.3 Plt Count 117 L MPV 12.7 H Immature Gran % (Auto) Neut % (Auto) Lymph % (Auto) [place] % (Auto) Eos % (Auto) Baso % (Auto) Lymph # (Auto) [place] # (Auto) Eos # (Auto) Baso # (Auto) Abs Immat Gran (auto) Absolute Neuts (auto) Absolute Nucleated RBC 0.000 Nucleated RBC % (auto) 0.0 PT INR Sodium Potassium Chloride Carbon Dioxide Anion Gap BUN Creatinine Estim Creat Clear Calc Estimated GFR POC Glucose 297 H Random Glucose Calcium Total Bilirubin Direct Bilirubin AST ALT Alkaline Phosphatase Troponin I High Sens 336.3 H* B-Natriuretic Peptide Total Protein Albumin Influenza Type A (PCR) Influenza Type B (PCR) RSV RNA Qual (PCR) SARS-CoV-2 RNA (RT-PCR) 11/06/22 06:38 WBC RBC Hgb Hct MCV MCH MCHC RDW Plt Count MPV Immature Gran % (Auto) Neut % (Auto) Lymph % (Auto) [place] % (Auto) Eos % (Auto) Baso % (Auto) Lymph # (Auto) [place] # (Auto) Eos # (Auto) Baso # (Auto) Abs Immat Gran (auto) Absolute Neuts (auto) Absolute Nucleated RBC Nucleated RBC % (auto) PT INR Sodium 139 Potassium 4.0 Chloride 100 Carbon Dioxide 28 Anion Gap 15 BUN 47 H Creatinine 1.57 H Estim Creat Clear Calc 36.0 Estimated GFR 33 POC Glucose Random Glucose 362 H* Calcium 9.7 Total Bilirubin Direct Bilirubin AST ALT Alkaline Phosphatase Troponin I High Sens B-Natriuretic Peptide Total Protein Albumin Influenza Type A (PCR) Influenza Type B (PCR) RSV RNA Qual (PCR) SARS-CoV-2 RNA (RT-PCR) Discharge Plan Discharge Anticipated Discharge Date/Time: 11/06/22 12:55 Patient Disposition: Home, Self-Care Discharge Diagnosis: Acute COPD exacerbation Acute kidney injury Referrals: Carmina Varela MD [Primary Care Provider] - 1 Week Discharge Medications: New nicotine 14 mg/24 hr Patch 24 Hour 14 mg transdermal DAILY Qty: 28 0RF prednisone 10 mg tablet 10 mg PO DAILY Qty: 4 0RF Continued carvedilol 25 mg tablet 25 mg PO BID Qty: 180 5RF Entresto 97-103 mg tablet 1 tab PO BID 90 Days Qty: 180 3RF citalopram 20 mg tablet 20 mg PO DAILY Xarelto 20 mg tablet 20 mg PO DAILY@1700 Rx Instructions: must administer with evening meal insulin glargine [Lantus Solostar U-100 Insulin] 100 unit/mL (3 mL) insulin pen 28 unit subcut BEDTIME furosemide [Lasix] 40 mg tablet 80 mg PO BID insulin aspart U-100 100 unit/mL (3 mL) insulin pen 3 - 5 unit subcut TID atorvastatin 80 mg tablet 80 mg PO BEDTIME Jardiance 10 mg tablet 10 mg PO DAILY Qty: 30 5RF Combivent Respimat 20-100 mcg/actuation mist 1 puff inhalation QID PRN (Reason: Wheezing/Sob.) 90 Days Qty: 4 3RF Rx Instructions: space evenly during waking hours Discontinued metolazone 2.5 mg tablet 2.5 mg PO DAILY PRN (Reason: Edema) Rx Instructions: Take one dose daily WHEN directed by provider to do so. Discharge Orders: Discharge Order (Routine); Ordered 11/06/22 Ordered By: Kobe Duggan Diet: Advance to usual diet Activity on Discharge: As tolerated Stand Alone Forms: Patient Portal Discharge page Care Plan Goals: Acute COPD exacerbation resolved continue all home inhalers and take prednisone as directed use cough medication as needed Health Concerns: Continue all home medication is stop metolazone Plan of Treatment: Outpatient follow-up with primary care physician and Cardiology Assessment: As above Discharge Date/Time: 11/06/22 14:30
== END 2022-11-06 14:30 | disposition home or self-care (01) ==
LOC: HO.ED 18:43 → HO.EDOVER 21:36 → HO.IMC 21:54
PROVIDERS: Physician Assistant; Registered Nurse Emergency; Admitting Provider Student in an Organized Health Care Education/Training Program; Emergency Provider Emergency Medicine Emergency Medical Services; PCP Internal Medicine; Visit Provider Hospitalist
DX: J44.1 Chronic obstructive pulmonary disease with (acute) exacerbation (principal); N17.9 Acute kidney failure, unspecified; R77.8 Other specified abnormalities of plasma proteins; E11.9 Type 2 diabetes mellitus without complications; Z79.4 Long term (current) use of insulin; G47.33 Obstructive sleep apnea (adult) (pediatric); R05.9 Cough, unspecified; I50.43 Acute on chronic combined systolic (congestive) and diastolic (congestive) heart failure; F17.200 Nicotine dependence, unspecified, uncomplicated
CPT/HCPCS: 0241U; 36415; 71046; 80048; 80076; 82947; 83880; 84484; 85025; 85027; 85610; 93005; 94640; 94660; 96361; 96365; 96366; 96372; 96375; 99222; 99285; J2930; J3475

== ENCOUNTER → 2022-11-05 16:41 | Outpatient (BNV) | payer OTHER, SELFPAY ==
[2021-10-15 11:10] VITALS: BP 110/70; BMI 46.0
== END ==
PROVIDERS: Admitting Provider Student in an Organized Health Care Education/Training Program; Emergency Provider Emergency Medicine Emergency Medical Services; PCP Internal Medicine; Visit Provider Internal Medicine Cardiovascular Disease
DX: R06.02 Shortness of breath (principal)
CPT/HCPCS: 93010

== ENCOUNTER → 2022-11-05 21:26 | Outpatient (BNV) | payer OTHER, SELFPAY ==
[2021-10-15 11:10] VITALS: BP 110/70; BMI 46.0
== END ==
PROVIDERS: Admitting Provider Student in an Organized Health Care Education/Training Program; Emergency Provider Emergency Medicine Emergency Medical Services; PCP Internal Medicine; Visit Provider Student in an Organized Health Care Education/Training Program
DX: J44.1 Chronic obstructive pulmonary disease with (acute) exacerbation (principal); N17.9 Acute kidney failure, unspecified
CPT/HCPCS: 99235; 99239

== ENCOUNTER 2022-11-17 09:42 | Outpatient (AMB) | payer OTHER, SELFPAY ==
[2021-10-15 11:10] VITALS: BP 110/70; BMI 46.0
[2022-11-17 09:44] VITALS: BP 134/68; PULSE 68; O2SAT 99; BMI 45.0
--- NOTE | 2022-11-17 09:44 | MHC.OFFVIS ---
Intake Vital Signs 11/17/22 09:44 Height 4 ft 11 in Weight 222 lb 10.67 oz BMI 45.0 BP 134/68 Blood Pressure Location Rt brachial Position Sitting Pulse 68 Pulse Source Pulse Oximeter Pulse Oximetry (%) 99 Oxygen Delivery Method Room Air Intake Visit Reasons: COPD Intake Note: Pt presents for a routine check up. She reports she had fluid in her lungs a few weeks ago and is still coughing up lots of mucus. The cough happens more frequently at night time. Elastic Attacher Coverstitch Required: No Allergies No Known Allergies Allergy (Verified 11/17/22 10:09) Medication List - Last Reconciled 11/17/22 by Dario Ling MD atorvastatin 80 mg PO BEDTIME carvedilol 25 mg PO BID citalopram 20 mg PO DAILY empagliflozin (Jardiance) 10 mg PO DAILY furosemide (Lasix) 80 mg PO BID insulin aspart U-100 3 - 5 units subcut TID insulin glargine (Lantus Solostar U-100 Insulin) 28 units subcut BEDTIME ipratropium-albuterol 20-100 mcg/actuation (Combivent Respimat) 1 puff inhalation QID PRN 90 days nicotine 14 mg transdermal DAILY prednisone 10 mg PO DAILY rivaroxaban (Xarelto) 20 mg PO DAILY@1700 sacubitril-valsartan 97-103 mg (Entresto) 1 tab PO BID 90 days Do you need a note to return to daycare/school/sports/work: No HPI COPD HPI Details THIS IS 67 YEARS OLD VERY PLEASANT FEMALE WITH MORBID OBESITY, AND CHRONIC OBSTRUCTIVE/RESTRICTIVE LUNG DISEASE. PRIMARY PROBLEM IS THAT OF HYPERTENSION CORONARY ARTERY DISEASE, STATUS POST CABG, HISTORY OF ARRHYTHMIAS, HAS AICD IN PLACE. HER COPD IS DUE TO HER PREVIOUS SMOKING, QUIT IN 2020. SHE USES COMBIVENT RESPIMAT 1 PUFF Q 4-6 HOURS ONLY P.R.N. SHE GETS SHORT OF BREATH ON WALKING WHICH IS EXPECTED, AND ALSO HAS MILD TO MODERATE COUGH MOSTLY AT NIGHTTIME, WITH SOME MUCUS PRODUCTION. SHE USES HER ASV MODE CPAP. EVERY NIGHT VERY REGULARLY. DENIES ANY ISSUES RELATED TO THE CPAP DEVICE ARE THE MASK. ON LICENSE OF [facility] Medical History Acute on chronic systolic and diastolic heart failure, NYHA class 3 Anxiety and depression Atherosclerotic cardiovascular disease Biventricular ICD (implantable cardioverter-defibrillator) in place CAD (coronary artery disease) Cardiomyopathy Chronic systolic heart failure Congestive heart failure Diabetes mellitus Dyspnea Fatty liver HLD (hyperlipidemia) HTN (hypertension) Hx of myocardial infarction Hypoxia Leukocytosis Morbid obesity Non-rheumatic aortic stenosis NSVT (nonsustained ventricular tachycardia) TAQUERIA (obstructive sleep apnea) TAQUERIA treated with BiPAP Osteoarthritis Presence of CardioMEMS HF system Restrictive lung disease Transaminitis Surgical History History of cardiac cath History of cholecystectomy History of incision and drainage Hx of appendectomy Hx of CABG Hx of cardiac cath Hx of cardiac cath Status post coronary artery bypass graft Stented coronary artery Family History Father No problems noted. Mother No problems noted. Social History Household Members: Family and Children Housing: Apartment Are you a primary healthcare economics manager to a significant other at home: No Do you presently have visiting nurse or other home services: Yes (CCR every few months to check in) Alcohol intake: never Patient Tobacco Use Status: Former Tobacco user Quit Date: 2020 Tobacco use type: Cigarette Cigarette Packs Per Day: 1 Years Smoked: 30 e-Cigarette/Vaping Use: Former Use Second Hand Smoke Exposure: No service: No Current occupational status: unemployed and disabled Current occupation: rt hand Review of Systems Const All systems reviewed & are unremarkable except as noted in HPI and below Reports no additional complaints Eyes Reports no additional complaints ENT Reports no additional complaints Card Denies chest pain, Denies irregular heart rhythm, Reports leg edema and Reports dyspnea on exertion Resp Reports as per HPI and Reports dyspnea on exertion GI Reports no additional complaints Reports no additional complaints Musc Reports no additional complaints Skin/Breast Reports system reviewed and no additional complaints, except as documented Neuro Reports no additional complaints Psych Reports depression (CONTROLLED WITHMED) Endo Reports no additional complaints Jeremie/Lymph Reports no additional complaints Physical Exam Vital Signs: Last Vital Signs Pulse 68 11/17/22 09:44 BP 134/68 11/17/22 09:44 Pulse Ox 99 11/17/22 09:44 Oxygen Delivery Method Room Air 11/17/22 09:44 BMI result Body Mass Index 45.0 Const Other: GROSSLY OBESE , WITH BULKY ABDOMEN AND LOWER EXTREMITIES. General: comfortable, no acute distress, alert and awake Orientation/consciousness: patient oriented x3 HEENT Head: Yes normal to inspection General nose exam: No nasal polyps present and No nasal discharge present Face and sinus: Yes sinuses nontender Mouth: oropharynx abnormals (NARROW AND CROWDED, MALLAMPATI CLASS 3) Throat: Yes posterior oropharynx normal Eyes General: appearance normal, both eyes and all related structures Neck Neck: Yes normal visual inspection, Yes no lymphadenopathy, Yes trachea midline and Yes no JVD Thyroid: Thyroid normal Chest Chest palpation & inspection: abnormal inspection of the chest (MIDLINE SCAR FROM PREVIOUS CABG SURGERY, AND PACEMAKER LEFT PECTORAL AREA), normal palpation of entire chest wall and no tenderness Resp Auscultation: no crackles, no wheezes and diminished lung sounds (OVER BASES ) Cardio Palpation: PMI not normal (NOT PALPABLE) Rate: regular rate Rhythm: regular rhythm Heart sounds: no gallops and Murmur heart sound present (FAINT SYSTOLIC MURMUR OVER AORTIC AREA) GI Palpation (GI): Soft to palpation, Tenderness to palpation present (GI), No hepatosplenomegaly present, Palpable mass present and Other GI palpation findings present (ABDOMEN IS GROSSLY OBESE AND PENDULOUS) Auscultation: normal bowel sounds Back/Spine/Pelvis Thoracic/Lumbar Spine: thoracic and lumbar spine normal to inspection and thoraco-lumbar ROM limited Skin General skin exam: no rashes or lesions noted Neuro General: patient oriented x3 and no focal motor deficits Cranial nerves: Yes CN's II-XII intact bilaterally Extrem General: Yes normal to inspection, Yes no clubbing, cyanosis or edema (SHE DOES HAVE CHRONIC PROBLEM OF STASIS EDEMA BUT NONE TODAY. ), Yes no calf tenderness and No venous stasis dermatitis Psych Appearance: grossly normal and well kempt Speech and movement: Normal speech and movement present Assessment & Plan Assessment & Plan (1) Morbid obesity: Comment: SHE REMAINS MORBIDLY OBESE, DIFFICULT FOR HER TO LOSE WEIGHT, BECAUSE SOME OF THAT DEPENDS UPON FLUID RETENTION. EXPLAINED TO THE PATIENT IN DETAIL. SHE NEEDS TO LOSE SOME WEIGHT EVEN A FEW LB PER MONTH WILL BE FINE. Code(s): E66.01 - Morbid (severe) obesity due to excess calories (2) Restrictive lung disease: Comment: PULMONARY FUNCTION TEST HAS SHOWN THAT SHE HAS MILD TO MODERATE DEGREE OF RESTRICTIVE DISORDER AND NO OBSTRUCTIVE DISORDER. TX : NO NEED OF USING ANY BRONCHODILATORS ON A CONTINUOUS BASIS. MAY USE COMBIVENT RESPIMAT 1 INHALATION Q 4-6 HOURS ONLY P.R.N. IF SHE DEVELOPS RESPIRATORY DISTRESS OR WHEEZING SHE IS ENCOURAGED TO DO DEEP BREATHING EXERCISES 2 OR 3 TIMES A DAY. Code(s): J98.4 - Other disorders of lung (3) TAQUERIA treated with BiPAP: Comment: CHRONIC COMPLEX SLEEP APNEA, TREATED WITH ASV MODE ,( PRESSURE 10 CM, WITH BACKUP RATE OF 12. Nasal pillows ) PATIENT IS VERY COMPLIANT AND BENEFITS FROM THE USE OF CPAP. PATIENT IS ADVISED TO CONTINUE THE SAME ON A REGULAR BASIS ,AT LEAST FOR 6-7 HRS PER NIGHT SHE HAS NO ISSUES WITH THE USE OF CPAP . Code(s): G47.33 - Obstructive sleep apnea (adult) (pediatric) Medications: Discontinued furosemide (2 x 40 mg) 80mg ( 2 tab) in the am and 40mg ( 1 tab) in the pm - additional dose if directed by provider to do so. 30 days 100 tabs 5RF metolazone Take one dose daily WHEN directed by provider to do so. 2.5 mg PO .prn PRN 10 tabs 3RF swelling rivaroxaban must administer with evening meal 20 mg PO DAILY 90 days 90 tabs 3RF Coding Level of Care Code Est Pt Level 3 (58537) Diagnoses Morbid obesity E66.01 Restrictive lung disease J98.4 TAQUERIA treated with BiPAP G47.33
== END 2022-11-17 10:08 | disposition home or self-care (01) ==
PROVIDERS: PCP Internal Medicine; Visit Provider Internal Medicine
DX: E66.01 Morbid (severe) obesity due to excess calories (principal); J98.4 Other disorders of lung; G47.33 Obstructive sleep apnea (adult) (pediatric)
CPT/HCPCS: 99213

== ENCOUNTER → 2022-11-17 09:42 | Outpatient (BNVA) | payer OTHER, SELFPAY ==
[2021-10-15 11:10] VITALS: BP 110/70; BMI 46.0
== END ==
PROVIDERS: Visit Provider Internal Medicine
DX: G47.33 Obstructive sleep apnea (adult) (pediatric) (principal); J98.4 Other disorders of lung; E66.01 Morbid (severe) obesity due to excess calories; Z68.42 Body mass index [BMI] 45.0-49.9, adult
CPT/HCPCS: 99212

== ENCOUNTER 2022-11-20 09:34 | Outpatient (AMB) | payer OTHER, SELFPAY ==
[2021-10-15 11:10] VITALS: BP 110/70; BMI 46.0
--- NOTE | 2022-11-20 09:55 | A.OFFVIS_ITS ---
Intake Vital Signs 11/20/22 09:56 Height 4 ft 11 in Weight 222 lb 10.67 oz BMI 45.0 BP 132/70 Blood Pressure Location Lt brachial Position Sitting Pulse 64 Intake Visit Reasons: 3 MON FUP AFTER LABS PER NS STARTED ON JARDIANCE. Intake Note: 3 month f/u patient felling some s/b while doing physical activities Charting Clerk Required: No Allergies No Known Allergies Allergy (Verified 11/20/22 10:04) Medication List - Last Reconciled 11/20/22 by CARINA Faust atorvastatin 80 mg PO BEDTIME carvedilol 25 mg PO BID citalopram 20 mg PO DAILY empagliflozin (Jardiance) 10 mg PO DAILY furosemide (Lasix) 80 mg PO BID insulin aspart U-100 3 - 5 units subcut TID insulin glargine (Lantus Solostar U-100 Insulin) 28 units subcut BEDTIME ipratropium-albuterol 20-100 mcg/actuation (Combivent Respimat) 1 puff inhalation QID PRN 90 days nicotine 14 mg transdermal DAILY rivaroxaban (Xarelto) 20 mg PO DAILY@1700 sacubitril-valsartan 97-103 mg (Entresto) 1 tab PO BID 90 days HPI 3 MON FUP AFTER LABS PER NS STARTED ON JARDIANCE. HPI Details La Nena is a 67 yo female with PMH of HTN, HLD, DM, CAD s/p 2 vessel CABG, CMP s/p Bi V ICD, CHB, HFrEF, bilateral PE, brief NSVT on ICD remote monitoring, CardioMEMS, symptomatic hypotension with high dose entresto, Mild to moderate who was recently admitted to [facility] for shortness of breath and treated for COPD exacerbation. Jardiance was added for her heart failure management. Today she reports that she continues to have cough and chest congestion. She has some shortness of breath with activity he which is not new for her. She is able to sleep in bed with 1-2 pillows. No fevers reported. No chest discomfort at rest or with activity. No palpitations, dizziness, presyncope, syncope, edema. 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 She tells me she will do her CardioMEMS readings as directed. She has updraft treatments available at home but has not required them. She takes all her meds as directed. [facility] Medical History (Updated 11/20/22 @ 11:29 by Mariel Arellano NP-C) Acute on chronic systolic and diastolic heart failure, NYHA class 3 Anxiety and depression Atherosclerotic cardiovascular disease Biventricular ICD (implantable cardioverter-defibrillator) in place CAD (coronary artery disease) Cardiomyopathy Chronic systolic heart failure Congestive heart failure Diabetes mellitus Dyspnea Fatty liver HLD (hyperlipidemia) HTN (hypertension) Hx of myocardial infarction Hypoxia Leukocytosis Morbid obesity Non-rheumatic aortic stenosis NSVT (nonsustained ventricular tachycardia) TAQUERIA (obstructive sleep apnea) TAQUERIA treated with BiPAP Osteoarthritis Presence of CardioMEMS HF system Restrictive lung disease Transaminitis Surgical History History of cardiac cath History of cholecystectomy History of incision and drainage Hx of appendectomy Hx of CABG Hx of cardiac cath Hx of cardiac cath Status post coronary artery bypass graft Stented coronary artery Family History Father No problems noted. Mother No problems noted. Social History Household Members: Family and Children Housing: Apartment Are you a primary healthcare sales representative to a significant other at home: No Do you presently have visiting nurse or other home services: Yes (CCR every few months to check in) Alcohol intake: never Patient Tobacco Use Status: Former Tobacco user Quit Date: 2020 Tobacco use type: Cigarette Cigarette Packs Per Day: 1 Years Smoked: 30 e-Cigarette/Vaping Use: Former Use Second Hand Smoke Exposure: No service: No Current occupational status: unemployed and disabled Current occupation: rt hand Review of Systems Const All systems reviewed & are unremarkable except as noted in HPI and below ENT Reports dizziness Card Denies chest pain, Denies chest pain at rest, Denies chest pain with activity, Denies rapid heart rate, Denies pedal edema, Denies edema, Denies leg edema, Denies lightheadedness, Denies palpitations, Denies dyspnea, Denies dyspnea on exertion and Denies orthopnea Resp Denies cough, Denies dyspnea and Denies dyspnea on exertion GI Denies hematochezia and Denies change in stool character Musc Denies abnormal gait, Reports limited range of motion, Reports muscle cramps, Denies muscle weakness, Denies numbness, Denies radiating pain into limb, Denies stiffness and Denies tingling Neuro Denies abnormal gait, Reports dizziness, Denies numbness and Denies tingling Endo Denies palpitations Physical Exam Const General: cooperative, comfortable and no acute distress Orientation/consciousness: patient oriented x3 Neck Neck: Yes normal visual inspection and Yes no JVD Resp Effort & Inspection: normal respiratory effort Auscultation: clear to auscultation bilaterally, no crackles, no rales, no rhonchi and no wheezes Cardio Jugular venous distension: no JVD Rate: regular rate Rhythm: regular rhythm Heart sounds: S1 normal heart sound present, S2 normal heart sound present, no gallops, no murmurs and no rubs Neuro General: patient oriented x3 Extrem General: Yes normal to inspection, No no pedal edema and No calf tenderness Psych Appearance: grossly normal Mental Status: mental status grossly normal Speech and movement: Normal speech and movement present Office Procedures EKG Details: Today, read by me, normal sinus rhythm, right bundle branch block possible ante rior lateral infarct, no pacer spikes visible, JT index 117, mildly prolonged, rate 64 [id number], Complete Assessment & Plan Assessment & Plan (1) Chronic systolic heart failure: Code(s): I50.22 - Chronic systolic (congestive) heart failure Plan: History of chronic systolic and diastolic heart failure. Recent [facility] admission for shortness of breath and treated mostly for COPD exacerbation. Last echocardiogram done 07/31/2022 shows EF 45-50%, mild LVH, wall motion abnormality suggesting CAD, [id number] aortic stenosis. Today she reports ongoing cough and congestion. On examination she does not appear fluid overloaded. She denies orthopnea or recent weight gain. She tells me she has been compliant with her medications. Following her last admission she was started on Jardiance. She admits to frequent urination and drinking approximately 50 oz of fluid each day. Blood pressure is normal range at present. Will continue on carvedilol, Entresto for neurohormonal modulation. Continue Jardiance for heart failure treatment. At present she is on Lasix 80 mg b.i.d. with metolazone use p.r.n.. She has a CardioMEMS device in place however has not been compliant with routine readings. She did complete her reading today which shows PA mean 33mmhg. Her current PA mean goal is 28 mmHg. With her current cough and congestion will have her increase Lasix by an additional dose each day for the next 2-3 days. Will check labs today including CMP, BNP, magnesium. Signs and symptoms of heart failure reviewed with her. Emergency care if needed for symptoms. Cardiology office visit in 3 months, sooner if needed. (2) Chronic diastolic heart failure: Code(s): I50.32 - Chronic diastolic (congestive) heart failure (3) Cardiomyopathy: Comment: mixed ischemic and nonischemic Code(s): I42.9 - Cardiomyopathy, unspecified Plan: Notes indicate this is mixed ischemic versus nonischemic cardiomyopathy. Most recent EF 45-50%. Medical management as above (4) Presence of CardioMEMS HF system: Code(s): Z95.818 - Presence of other cardiac implants and grafts Plan: CardioMEMS heart failure monitoring sensor placed by Dr. Reza on 01/25/2021.? She has not been consistently compliant with her CardioMEMS readings. Her readings that are done are quite variable likely due to dietary indiscretion. She tells me she is compliant with her med management? No clinical signs of decompensated HF on exam. ? I will continue to watch her CardioMEMS readings on the [employer] web site and call her to readjust Lasix dose as warranted (5) CAD (coronary artery disease): Code(s): I25.10 - Atherosclerotic heart disease of [place] coronary artery without angina pectoris Plan: Hx CAD with 2 vessel CABG and prior coronary stent. Stable with no report of anginal sounding symptoms. Last Echo as above. Activity limited by knee pains and shortness of breath. Complaint with meds. Continue Carvediol, Entresto, atorvastatin. Not on aspirin as she is on Xarelto. Her insurance did not approve Corlanor, which was previously ordered. ? (6) Biventricular ICD (implantable cardioverter-defibrillator) in place: Comment: [place], 2015 Code(s): Z95.810 - Presence of automatic (implantable) cardiac defibrillator Plan: [place] Bi V ICD in place. She has remote monitoring in use. No ICD discharges. Will plan for office interrogation next visit. (7) TAQUERIA treated with BiPAP: Comment: CHRONIC COMPLEX SLEEP APNEA, TREATED WITH ASV MODE ,( PRESSURE 10 CM, WITH BACKUP RATE OF 12. Nasal pillows ) PATIENT IS VERY COMPLIANT AND BENEFITS FROM THE USE OF CPAP. PATIENT IS ADVISED TO CONTINUE THE SAME ON A REGULAR BASIS ,AT LEAST FOR 6-7 HRS PER NIGHT SHE HAS NO ISSUES WITH THE USE OF CPAP . Code(s): G47.33 - Obstructive sleep apnea (adult) (pediatric) Plan: She reports compliance with CPAP (8) Aortic stenosis: Code(s): I35.0 - Nonrheumatic aortic (valve) stenosis Plan: [id number] noted on last echo. We will continue to follow with periodic echoes (9) GABINO (acute kidney injury): Code(s): N17.9 - Acute kidney failure, unspecified Plan: Noted to have GABINO during last hospital admission with creatinine as high as 1.7. It did improve with some diuresing prior to discharge. Will be checking labs today (10) Prolonged QT interval: Code(s): R94.31 - Abnormal electrocardiogram [ECG] [EKG] Plan: EKG done today showing falsely prolonged QT interval due to right bundle branch block. JT index calculated at 117 which is mildly prolonged. ICD in place. Will check labs today including CMP and magnesium level. Orders: Orders B Type Natriuretic Peptide Today I50.22 - Chronic systolic (congestive) heart failure Comprehensive Met. Panel Today I50.22 - Chronic systolic (congestive) heart failure Magnesium Today I50.22 - Chronic systolic (congestive) heart failure Medications: Discontinued furosemide (2 x 40 mg) 80mg ( 2 tab) in the am and 40mg ( 1 tab) in the pm - additional dose if directed by provider to do so. 30 days 100 tabs 5RF metolazone Take one dose daily WHEN directed by provider to do so. 2.5 mg PO .prn PRN 10 tabs 3RF swelling rivaroxaban must administer with evening meal 20 mg PO DAILY 90 days 90 tabs 3RF Coding Level of Care Code Est Pt Level 4 (72107) Diagnoses Chronic systolic heart failure I50.22 Chronic diastolic heart failure I50.32 Cardiomyopathy I42.9 Presence of CardioMEMS HF system Z95.818 CAD (coronary artery disease) I25.10 Biventricular ICD (implantable cardioverter-defibrillator) in place Z95.810 TAQUERIA treated with BiPAP G47.33 Aortic stenosis I35.0 GABINO (acute kidney injury) N17.9 Prolonged QT interval R94.31 CPT Codes EKG - CPT: 00339-[id number], Complete ([id number]) Time Spent (min) 35 Comment Chart review, documentation, interview, assessment
[2022-11-20 09:56] VITALS: BP 132/70; PULSE 64; BMI 45.0
== END 2022-11-20 10:26 | disposition home or self-care (01) ==
PROVIDERS: Visit Provider Nurse Practitioner Family
DX: I50.22 Chronic systolic (congestive) heart failure (principal); I50.32 Chronic diastolic (congestive) heart failure; I42.9 Cardiomyopathy, unspecified; Z95.818 Presence of other cardiac implants and grafts; I25.10 Atherosclerotic heart disease of native coronary artery without angina pectoris; Z95.810 Presence of automatic (implantable) cardiac defibrillator; G47.33 Obstructive sleep apnea (adult) (pediatric); I35.0 Nonrheumatic aortic (valve) stenosis; N17.9 Acute kidney failure, unspecified; R94.31 Abnormal electrocardiogram [ECG] [EKG]
CPT/HCPCS: 93010; 99214

== ENCOUNTER → 2022-11-20 09:34 | Outpatient (BNVA) | payer OTHER, SELFPAY ==
[2021-10-15 11:10] VITALS: BP 110/70; BMI 46.0
== END ==
PROVIDERS: Visit Provider Nurse Practitioner Family
DX: I50.22 Chronic systolic (congestive) heart failure (principal); I50.32 Chronic diastolic (congestive) heart failure; I42.9 Cardiomyopathy, unspecified; I25.10 Atherosclerotic heart disease of native coronary artery without angina pectoris; I35.0 Nonrheumatic aortic (valve) stenosis; G47.33 Obstructive sleep apnea (adult) (pediatric); N17.9 Acute kidney failure, unspecified; R94.31 Abnormal electrocardiogram [ECG] [EKG]; Z95.818 Presence of other cardiac implants and grafts; Z95.810 Presence of automatic (implantable) cardiac defibrillator
CPT/HCPCS: 93005; 99212

== ENCOUNTER → 2022-11-24 23:59 | Outpatient (BNV) | payer OTHER, SELFPAY ==
[2021-10-15 11:10] VITALS: BP 110/70; BMI 46.0
--- NOTE | 2022-12-04 13:07 | MHC.OFFVIS ---
Intake Intake Visit Reasons: Cardiomems- [facility] Allergies No Known Allergies Allergy (Verified 11/20/22 10:04) [facility] Medical History (Updated 11/20/22 @ 11:29 by Mariel Arellano NP-C) Acute on chronic systolic and diastolic heart failure, NYHA class 3 Anxiety and depression Atherosclerotic cardiovascular disease Biventricular ICD (implantable cardioverter-defibrillator) in place CAD (coronary artery disease) Cardiomyopathy Chronic systolic heart failure Congestive heart failure Diabetes mellitus Dyspnea Fatty liver HLD (hyperlipidemia) HTN (hypertension) Hx of myocardial infarction Hypoxia Leukocytosis Morbid obesity Non-rheumatic aortic stenosis NSVT (nonsustained ventricular tachycardia) TAQUERIA (obstructive sleep apnea) TAQUERIA treated with BiPAP Osteoarthritis Presence of CardioMEMS HF system Restrictive lung disease Transaminitis Surgical History History of cardiac cath History of cholecystectomy History of incision and drainage Hx of appendectomy Hx of CABG Hx of cardiac cath Hx of cardiac cath Status post coronary artery bypass graft Stented coronary artery Family History Father No problems noted. Mother No problems noted. Social History Household Members: Family and Children Housing: Apartment Are you a primary home health care provider to a significant other at home: No Do you presently have visiting nurse or other home services: Yes (CCR every few months to check in) Alcohol intake: never Patient Tobacco Use Status: Former Tobacco user Quit Date: 2020 Tobacco use type: Cigarette Cigarette Packs Per Day: 1 Years Smoked: 30 e-Cigarette/Vaping Use: Former Use Second Hand Smoke Exposure: No service: No Current occupational status: unemployed and disabled Current occupation: rt hand Office Procedures Cardiac Device Check Cardiac Device Check Details: Monitoring period dates: - 11/24/22 Optimal PA pressure range: CARI goal 28mmhg Procedure code: 25398 BACKGROUND: [place] is implanted with the CardioMEMS PA Sensor.? I use this technology to monitor PA pressures on a weekly basis to ensure patients are within their optimal range to prevent decompensation.? SUMMARY:? I utilized the remote monitoring platform ([email or web address]) to set optimal targets for pulmonary artery pressure thresholds as part of acute and chronic management of patient?s heart failure. During the period indicated above, I monitored the patient?s pulmonary artery pressures weekly via trend analysis and notification reports which provide alerts when patient?s PA pressures were outside of range to prompt immediate action in medication changes and communications.? The weekly reports are archived in the [email or web address] system which serve as a parallel record to document weekly PA pressures, medication changes, and clinical notes. I have reviewed readings on , 10/31, 11/08, 11/18, 11/20. CARI reading has ranged 26-42mmhg. She continues to be noncompliant with consistent readings. Diuretics adjusted accordingly. 63183 - Remote monitoring of wireless pulmonary artery pressure sensor Procedure code (CPT) selection complete Assessment & Plan Assessment & Plan Medications: Discontinued furosemide (2 x 40 mg) 80mg ( 2 tab) in the am and 40mg ( 1 tab) in the pm - additional dose if directed by provider to do so. 30 days 100 tabs 5RF metolazone Take one dose daily WHEN directed by provider to do so. 2.5 mg PO .prn PRN 10 tabs 3RF swelling rivaroxaban must administer with evening meal 20 mg PO DAILY 90 days 90 tabs 3RF Coding Level of Care Code Procedure Only Diagnoses CPT Codes Cardiac Device Check - Cardiac Device 17: 50078 - Remote monitoring of wireless pulmonary artery pressure sensor ([id number])
== END ==
PROVIDERS: PCP Internal Medicine; Visit Provider Internal Medicine Cardiovascular Disease
DX: I50.32 Chronic diastolic (congestive) heart failure (principal)
CPT/HCPCS: 93264

== ENCOUNTER → 2022-12-25 23:59 | Outpatient (BNV) | payer OTHER, SELFPAY ==
[2021-10-15 11:10] VITALS: BP 110/70; BMI 46.0
--- NOTE | 2023-01-06 18:29 | MHC.OFFVIS ---
Intake Intake Visit Reasons: Remote CardioMEMS- [facility] Allergies No Known Allergies Allergy (Verified 11/20/22 10:04) [facility] Medical History (Updated 11/20/22 @ 11:29 by Mariel Arellano NP-C) Presence of CardioMEMS HF system Hx of myocardial infarction Anxiety and depression Osteoarthritis Fatty liver Restrictive lung disease TAQUERIA treated with BiPAP Morbid obesity Biventricular ICD (implantable cardioverter-defibrillator) in place CAD (coronary artery disease) Non-rheumatic aortic stenosis Atherosclerotic cardiovascular disease Acute on chronic systolic and diastolic heart failure, NYHA class 3 Leukocytosis Dyspnea Transaminitis Hypoxia Congestive heart failure TAQUERIA (obstructive sleep apnea) NSVT (nonsustained ventricular tachycardia) Cardiomyopathy Chronic systolic heart failure Diabetes mellitus HLD (hyperlipidemia) HTN (hypertension) Surgical History History of incision and drainage Status post coronary artery bypass graft Stented coronary artery Hx of CABG History of cardiac cath Hx of cardiac cath Hx of cardiac cath Hx of appendectomy History of cholecystectomy Family History Father No problems noted. Mother No problems noted. Social History Household Members: Family and Children Housing: Apartment Are you a primary healthcare receptionist to a significant other at home: No Do you presently have visiting nurse or other home services: Yes (CCR every few months to check in) Alcohol intake: never Patient Tobacco Use Status: Former Tobacco user Quit Date: 2020 Tobacco use type: Cigarette Cigarette Packs Per Day: 1 Years Smoked: 30 e-Cigarette/Vaping Use: Former Use Second Hand Smoke Exposure: No service: No Current occupational status: unemployed and disabled Current occupation: rt hand Office Procedures Cardiac Device Check Cardiac Device Check Details: Monitoring period dates: 11/25/22 - 12/25/22 Optimal PA pressure range: CAIR goal 28mmhg Procedure code: [id number] BACKGROUND: [place] N[place] is implanted with the CardioMEMS PA Sensor.? I use this technology to monitor PA pressures on a weekly basis to ensure patients are within their optimal range to prevent decompensation.? SUMMARY:? I utilized the remote monitoring platform ([employer]) to set optimal targets for pulmonary artery pressure thresholds as part of acute and chronic management of patient?s heart failure. During the period indicated above, I monitored the patient?s pulmonary artery pressures weekly via trend analysis and notification reports which provide alerts when patient?s PA pressures were outside of range to prompt immediate action in medication changes and communications.? The weekly reports are archived in the [employer] system which serve as a parallel record to document weekly PA pressures, medication changes, and clinical notes. I have reviewed readings on 11/25, 11/30, 12/07, 12/15, 12/23. PA readings not obtained by patient as consistently as directed. Her reading typically run high to normal. Diuretics have been adjusted accordingly. 80974 - Remote monitoring of wireless pulmonary artery pressure sensor Procedure code (CPT) selection complete Coding Level of Care Code Procedure Only CPT Codes Cardiac Device Check - Cardiac Device 17: 31013 - Remote monitoring of wireless pulmonary artery pressure sensor ([id number])
== END ==
PROVIDERS: PCP Internal Medicine; Visit Provider Nurse Practitioner Family
DX: I50.32 Chronic diastolic (congestive) heart failure (principal); Z95.818 Presence of other cardiac implants and grafts
CPT/HCPCS: 93264

== ENCOUNTER 2023-01-21 08:02 | Outpatient (AMB) | payer OTHER, SELFPAY ==
[2021-10-15 11:10] VITALS: BP 110/70; BMI 46.0
--- NOTE | 2023-01-21 08:14 | A.OFFVIS_ITS ---
Intake Vital Signs 01/21/23 08:16 Height 4 ft 11 in Weight 229 lb BMI 46.2 BP 165/75 H Blood Pressure Location Lt brachial Position Sitting Pulse 72 Intake Visit Reasons: [place] Screening Intake Note: Patient new consult for 2nd pre colonoscopy screening. Patient denies any GI issues. Communications Marketing Intern Required: No Accompanied by: Self / Same As Patient Allergies No Known Allergies Allergy (Verified 01/21/23 08:13) Medication List - Last Reconciled 01/21/23 by Rashida Russell PA-C atorvastatin 80 mg PO BEDTIME carvedilol 25 mg PO BID citalopram 20 mg PO DAILY empagliflozin (Jardiance) 10 mg PO DAILY furosemide (Lasix) 80 mg PO BID insulin aspart U-100 3 - 5 units subcut TID insulin glargine (Lantus Solostar U-100 Insulin) 28 units subcut BEDTIME ipratropium-albuterol 20-100 mcg/actuation (Combivent Respimat) 1 puff inhalation QID PRN 90 days nicotine 14 mg transdermal DAILY rivaroxaban (Xarelto) 20 mg PO DAILY@1700 sacubitril-valsartan 97-103 mg (Entresto) 1 tab PO BID 90 days HPI HPI Comments History of Present Illness Details 58-year-old female referred for screenin g colonoscopy-last colonoscopy greater than 10 years ago was normal she had never had polyps no family history of GI cancer Anticoags since 2014- cardiac bypass- MEMS implanted pacemaker/defibrillator She has no GI complaints She has a normal bowel pattern- Appetite is good She does have shortness of breath certainly worse with exertion She is a former smoker, however she is exposed to secondhand smoke-her son and DIL live in her home both smoke No nausea, vomiting, abdominal pain, hematemesis, hematochezia, fever or chills PFSH Medical History (Updated 01/21/23 @ 08:46 by Rashida Russell PA-C) Presence of CardioMEMS HF system Hx of myocardial infarction Anxiety and depression Osteoarthritis Fatty liver Restrictive lung disease TAQUERIA treated with BiPAP Morbid obesity Biventricular ICD (implantable cardioverter-defibrillator) in place CAD (coronary artery disease) Non-rheumatic aortic stenosis Atherosclerotic cardiovascular disease Acute on chronic systolic and diastolic heart failure, NYHA class 3 Leukocytosis Dyspnea Transaminitis Hypoxia Congestive heart failure TAQUERIA (obstructive sleep apnea) NSVT (nonsustained ventricular tachycardia) Cardiomyopathy Chronic systolic heart failure Diabetes mellitus HLD (hyperlipidemia) HTN (hypertension) Surgical History History of incision and drainage Status post coronary artery bypass graft Stented coronary artery Hx of CABG History of cardiac cath Hx of cardiac cath Hx of cardiac cath Hx of appendectomy History of cholecystectomy Family History Father No problems noted. Mother No problems noted. Social History (Updated 01/21/23 @ 11:00 by Rashida Russell PA-C) Household Members: Family and Children Housing: Apartment Are you a primary floor care technician to a significant other at home: No Do you presently have visiting nurse or other home services: Yes (CCR every few months to check in) Alcohol intake: never Patient Tobacco Use Status: Former Tobacco user Quit Date: 2020 Tobacco use type: Cigarette Cigarette Packs Per Day: 1 Years Smoked: 30 e-Cigarette/Vaping Use: Former Use Second Hand Smoke Exposure: Yes service: No Current occupational status: unemployed and disabled Current occupation: rt hand Review of Systems Const All systems reviewed & are unremarkable except as noted in HPI and below Card Denies chest pain and Reports dyspnea on exertion Resp Reports dyspnea on exertion GI Denies abdominal pain, Denies hematochezia, Denies change in bowel habits, Denies change in stool character, Denies constipation, Denies heartburn, Denies diarrhea, Denies nausea and Denies vomiting Physical Exam Vital Signs: Last Vital Signs Pulse 72 01/21/23 08:16 BP 165/75 H 01/21/23 08:16 BMI result Body Mass Index 46.2 heavy Tobacco odor Const General: cooperative and comfortable Orientation/consciousness: patient oriented x3 Limitations: no limitations Eyes Sclerae: sclerae normal Resp Effort & Inspection: normal respiratory effort and able to speak in complete sentences Auscultation: rhonchi and diminished lung sounds Cardio Rate: regular rate Rhythm: regular rhythm Heart sounds: Murmur heart sound present GI Inspection: Yes obesity Palpation (GI): Soft to palpation and nontender Skin General skin exam: no rashes or lesions noted Neuro General: patient oriented x3 Extrem General: Yes full ROM Psych Speech and movement: Clear speech present Affect: normal affect Attitude: cooperative Thought process: Normal thought process present Thought content: Normal thought content present Results Reviewed Results Reviewed: Office Procedures Cardiac Device Check Cardiac Device Check Details: Monitoring period dates: - 11/24/22 Optimal PA pressure range: CARI goal 28mmhg Procedure code: 29844 BACKGROUND: [place] is implanted with the CardioMEMS PA Sensor.? I use this technology to monitor PA pressures on a weekly basis to ensure patients are within their optimal range to prevent decompensation.? SUMMARY:? I utilized the remote monitoring platform ([employer]) to set optimal targets for pulmonary artery pressure thresholds as part of acute and chronic management of patient?s heart failure. During the period indicated above, I monitored the patient?s pulmonary artery pressures weekly via trend analysis and notification reports which provide alerts when patient?s PA pressures were outside of range to prompt immediate action in medication changes and communications.? The weekly reports are archived in the [employer] system which serve as a parallel record to document weekly PA pressures, medication changes, and clinical notes. I have reviewed readings on , 10/31, 11/08, 11/18, 11/20. CARI reading has ranged 26-42mmhg. She continues to be noncompliant with consistent readings. Diuretics adjusted accordingly. 68314 - Remote monitoring of wireless pulmonary artery pressure sensor Procedure code (CPT) selection complete Assessment & Plan Assessment & Plan (1) Chronic systolic heart failure: Code(s): I50.22 - Chronic systolic (congestive) heart failure (2) Restrictive lung disease: Comment: PULMONARY FUNCTION TEST HAS SHOWN THAT SHE HAS MILD TO MODERATE DEGREE OF RESTRICTIVE DISORDER AND NO OBSTRUCTIVE DISORDER. TX : NO NEED OF USING ANY BRONCHODILATORS ON A CONTINUOUS BASIS. MAY USE COMBIVENT RESPIMAT 1 INHALATION Q 4-6 HOURS ONLY P.R.N. IF SHE DEVELOPS RESPIRATORY DISTRESS OR WHEEZING SHE IS ENCOURAGED TO DO DEEP BREATHING EXERCISES 2 OR 3 TIMES A DAY. Code(s): J98.4 - Other disorders of lung (3) Encounter for screening colonoscopy: Comment: discussed alternatives- Code(s): Z12.11 - Encounter for screening for malignant neoplasm of colon Plan: cologuard (4) Biventricular ICD (implantable cardioverter-defibrillator) in place: Comment: [facility] 2015 Code(s): Z95.810 - Presence of automatic (implantable) cardiac defibrillator Plan Disc alternatives- given health status-, risks of anesthesia ETC She is agreeable to cologuard-if positive- rec colonoscopy Patient Instructions: 68-year-old female multiple comorbidities, anticoagulation referred for screening colonoscopy. No GI complaints, no family history of GI cancer Discussed screening colonoscopy as well as alternatives to include cologuard, discussed 13% false positive Submit authorization for Cologuard-she will call to weeks after she submits sample for results. Encouraged to call with any questions or concerns She ate the opportunity assist in the care the patient Coding Level of Care Code New Pt Level 3 (65187) Diagnoses Chronic systolic heart failure I50.22 Restrictive lung disease J98.4 Encounter for screening colonoscopy Z12.11 Biventricular ICD (implantable cardioverter-defibrillator) in place Z95.810 Time Spent (min) 30
[2023-01-21 08:16] VITALS: BP 165/75; PULSE 72; BMI 46.2
== END 2023-01-21 09:06 | disposition home or self-care (01) ==
PROVIDERS: PCP Internal Medicine; Visit Provider Physician Assistant
DX: I50.22 Chronic systolic (congestive) heart failure (principal); J98.4 Other disorders of lung; Z12.11 Encounter for screening for malignant neoplasm of colon; Z95.810 Presence of automatic (implantable) cardiac defibrillator
CPT/HCPCS: 99203

== ENCOUNTER → 2023-01-21 08:02 | Outpatient (BNVA) | payer OTHER, SELFPAY ==
[2021-10-15 11:10] VITALS: BP 110/70; BMI 46.0
== END ==
PROVIDERS: PCP Internal Medicine; Visit Provider Physician Assistant

== ENCOUNTER → 2023-01-30 23:59 | Outpatient (BNV) | payer OTHER, SELFPAY ==
[2021-10-15 11:10] VITALS: BP 110/70; BMI 46.0
--- NOTE | 2023-02-10 09:02 | A.OFFVIS_ITS ---
Intake Intake Visit Reasons: Remote CardioMEMS Check- [facility] Allergies No Known Allergies Allergy (Verified 01/21/23 08:13) [facility] Medical History (Updated 01/21/23 @ 08:46 by Rashida Russell PA-C) Presence of CardioMEMS HF system Hx of myocardial infarction Anxiety and depression Osteoarthritis Fatty liver Restrictive lung disease TAQUERIA treated with BiPAP Morbid obesity Biventricular ICD (implantable cardioverter-defibrillator) in place CAD (coronary artery disease) Non-rheumatic aortic stenosis Atherosclerotic cardiovascular disease Acute on chronic systolic and diastolic heart failure, NYHA class 3 Leukocytosis Dyspnea Transaminitis Hypoxia Congestive heart failure TAQUERIA (obstructive sleep apnea) NSVT (nonsustained ventricular tachycardia) Cardiomyopathy Chronic systolic heart failure Diabetes mellitus HLD (hyperlipidemia) HTN (hypertension) Surgical History History of incision and drainage Status post coronary artery bypass graft Stented coronary artery Hx of CABG History of cardiac cath Hx of cardiac cath Hx of cardiac cath Hx of appendectomy History of cholecystectomy Family History Father No problems noted. Mother No problems noted. Social History (Updated 01/21/23 @ 11:00 by Rashida Russell PA-C) Household Members: Family and Children Housing: Apartment Are you a primary director critical care to a significant other at home: No Do you presently have visiting nurse or other home services: Yes (CCR every few months to check in) Alcohol intake: never Patient Tobacco Use Status: Former Tobacco user Quit Date: 2020 Tobacco use type: Cigarette Cigarette Packs Per Day: 1 Years Smoked: 30 e-Cigarette/Vaping Use: Former Use Second Hand Smoke Exposure: Yes service: No Current occupational status: unemployed and disabled Current occupation: rt hand Office Procedures Cardiac Device Check Cardiac Device Check Details: Monitoring period dates: 12/26/22 - 01/24/23 Optimal PA pressure range: CARI goal 28 mmhg Procedure code: 24368 BACKGROUND: [place] is implanted with the CardioMEMS PA Sensor.? I use this technology to monitor PA pressures on a weekly basis to ensure patients are within their optimal range to prevent decompensation.? SUMMARY:? I utilized the remote monitoring platform ([employer]) to set optimal targets for pulmonary artery pressure thresholds as part of acute and chronic management of patient?s heart failure. During the period indicated above, I monitored the patient?s pulmonary artery pressures weekly via trend analysis and notification reports which provide alerts when patient?s PA pressures were outside of range to prompt immediate action in medication changes and communications.? The weekly reports are archived in the [employer] system which serve as a parallel record to document weekly PA pressures, medication changes, and clinical notes. I have reviewed readings on 12/30, 01/07. 01/22. PAD ranged 26- 39 mmhg. Compliance 6% inspite of calls/ notifications to do readings. No HF admissions. 92441 - Remote monitoring of wireless pulmonary artery pressure sensor Procedure code (CPT) selection complete Coding Level of Care Code Procedure Only CPT Codes Cardiac Device Check - Cardiac Device 17: 80829 - Remote monitoring of wireless pulmonary artery pressure sensor ([id number])
== END ==
PROVIDERS: PCP Internal Medicine; Visit Provider Nurse Practitioner Family
DX: I50.32 Chronic diastolic (congestive) heart failure (principal); Z95.818 Presence of other cardiac implants and grafts
CPT/HCPCS: 93264

== ENCOUNTER → 2023-02-03 23:59 | Outpatient (BNV) | payer OTHER, SELFPAY ==
[2021-10-15 11:10] VITALS: BP 110/70; BMI 46.0
--- NOTE | 2023-02-16 08:49 | A.OFFVIS_ITS ---
Intake Intake Visit Reasons: Remote Device Check- [facility] Allergies No Known Allergies Allergy (Verified 01/21/23 08:13) [facility] Medical History (Updated 01/21/23 @ 08:46 by Rashida Russell PA-C) Presence of CardioMEMS HF system Hx of myocardial infarction Anxiety and depression Osteoarthritis Fatty liver Restrictive lung disease TAQUERIA treated with BiPAP Morbid obesity Biventricular ICD (implantable cardioverter-defibrillator) in place CAD (coronary artery disease) Non-rheumatic aortic stenosis Atherosclerotic cardiovascular disease Acute on chronic systolic and diastolic heart failure, NYHA class 3 Leukocytosis Dyspnea Transaminitis Hypoxia Congestive heart failure TAQUERIA (obstructive sleep apnea) NSVT (nonsustained ventricular tachycardia) Cardiomyopathy Chronic systolic heart failure Diabetes mellitus HLD (hyperlipidemia) HTN (hypertension) Surgical History History of incision and drainage Status post coronary artery bypass graft Stented coronary artery Hx of CABG History of cardiac cath Hx of cardiac cath Hx of cardiac cath Hx of appendectomy History of cholecystectomy Family History Father No problems noted. Mother No problems noted. Social History (Updated 01/21/23 @ 11:00 by Rashida Russell PA-C) Household Members: Family and Children Housing: Apartment Are you a primary inspector health care facilities to a significant other at home: No Do you presently have visiting nurse or other home services: Yes (CCR every few months to check in) Alcohol intake: never Patient Tobacco Use Status: Former Tobacco user Quit Date: 2020 Tobacco use type: Cigarette Cigarette Packs Per Day: 1 Years Smoked: 30 e-Cigarette/Vaping Use: Former Use Second Hand Smoke Exposure: Yes service: No Current occupational status: unemployed and disabled Current occupation: rt hand Office Procedures Cardiac Device Check Cardiac Device Check Details: Remote ICD function report generated 02/03/2023. ICD function is adequate. Bi V pacing 99% of time [id number] Cardiac Interrogation, implant defibrillator w/interim Procedure code (CPT) selection complete Coding Level of Care Code Procedure Only CPT Codes Cardiac Device Check - Cardiac Device 13: [id number] Cardiac Interrogation, implant defibrillator w/interim ([id number])
== END ==
PROVIDERS: PCP Internal Medicine; Visit Provider Internal Medicine Cardiovascular Disease
DX: I50.22 Chronic systolic (congestive) heart failure (principal); Z95.810 Presence of automatic (implantable) cardiac defibrillator
CPT/HCPCS: 93295

== ENCOUNTER → 2023-03-02 23:59 | Outpatient (BNV) | payer OTHER, SELFPAY ==
[2021-10-15 11:10] VITALS: BP 110/70; BMI 46.0
--- NOTE | 2023-03-27 15:36 | A.OFFVIS_ITS ---
Intake Intake Visit Reasons: Remote CardioMEMS Check- [facility] Allergies No Known Allergies Allergy (Verified 03/19/23 16:16) PFSH Medical History Sleep apnea Presence of CardioMEMS HF system Hx of myocardial infarction Anxiety and depression Osteoarthritis Fatty liver Restrictive lung disease TAQUERIA treated with BiPAP Morbid obesity Biventricular ICD (implantable cardioverter-defibrillator) in place CAD (coronary artery disease) Non-rheumatic aortic stenosis Atherosclerotic cardiovascular disease Acute on chronic systolic and diastolic heart failure, NYHA class 3 Leukocytosis Dyspnea Transaminitis Hypoxia Congestive heart failure TAQUERIA (obstructive sleep apnea) NSVT (nonsustained ventricular tachycardia) Cardiomyopathy Chronic systolic heart failure Diabetes mellitus HLD (hyperlipidemia) HTN (hypertension) Surgical History History of incision and drainage Status post coronary artery bypass graft Stented coronary artery Hx of CABG History of cardiac cath Hx of cardiac cath Hx of cardiac cath Hx of appendectomy History of cholecystectomy Family History Father No problems noted. Mother No problems noted. Social History Household Members: Children Household Members Other:: son and daughter in law Housing: Apartment Are you a primary youth career specialist to a significant other at home: No Do you presently have visiting nurse or other home services: No Alcohol intake: never Comment: chronic back pain Patient Tobacco Use Status: Former Tobacco user Quit Date: 2020 Tobacco use type: Cigarette Cigarette Packs Per Day: 1 Years Smoked: 30 e-Cigarette/Vaping Use: Former Use Second Hand Smoke Exposure: Yes Advance Directives Date on File: 11/07/22 service: No Current occupational status: unemployed and disabled Current occupation: rt hand Office Procedures Cardiac Device Check Cardiac Device Check Details: Monitoring period dates: 01/25/23 - 02/24/23 Optimal PA pressure range: CARI goal 28mmhg Procedure code: 38337 BACKGROUND: [place] is implanted with the CardioMEMS PA Sensor.? I use this technology to monitor PA pressures on a weekly basis to ensure patients are within their optimal range to prevent decompensation.? SUMMARY:? I utilized the remote monitoring platform ([employer]) to set optimal targets for pulmonary artery pressure thresholds as part of acute and chronic management of patient?s heart failure. During the period indicated above, I monitored the patient?s pulmonary artery pressures weekly via trend analysis and notification reports which provide alerts when patient?s PA pressures were outside of range to prompt immediate action in medication changes and communications.? The weekly reports are archived in the [employer] system which serve as a parallel record to document weekly PA pressures, medication changes, and clinical notes. I have reviewed readings on 01/30, 02/06, 02/10, 02/17, 02/23. Compliance rate 6% inspite of reminders and calls. CARI readings 26- 43mmhg. Instructed on additional diuretic when warranted. 00768 - Remote monitoring of wireless pulmonary artery pressure sensor Procedure code (CPT) selection complete Assessment & Plan Assessment & Plan (1) Presence of CardioMEMS HF system: Code(s): Z95.818 - Presence of other cardiac implants and grafts Plan: monthly report - january Coding Level of Care Code Procedure Only Diagnoses Presence of CardioMEMS HF system Z95.818 CPT Codes Cardiac Device Check - Cardiac Device 17: 25336 - Remote monitoring of wireless pulmonary artery pressure sensor ([id number])
== END ==
PROVIDERS: PCP Internal Medicine; Visit Provider Nurse Practitioner Family
DX: I50.32 Chronic diastolic (congestive) heart failure (principal); Z95.818 Presence of other cardiac implants and grafts
CPT/HCPCS: 93264

== ENCOUNTER 2023-03-19 15:52 | Inpatient (IN) | payer OTHER, SELFPAY ==
[2021-10-15 11:10] VITALS: BP 110/70; BMI 46.0
[2023-03-19] VITALS (7 sets, daily range): BP systolic 150–192; BP diastolic 60–73; PULSE 79–89; RESP 16–21; TEMP 36.6–37; O2SAT 93–97; BMI 48.0
--- NOTE | ~2023-03-19 | XR_ITS ---
EXAMINATION: XR CHEST CLINICAL INFORMATION: Reason for Exam CP, SOB COMPARISON: Chest radiograph 11/05/2022 TECHNIQUE: 2 views of the chest FINDINGS: Lines and tubes: Left chest with 3-lead cardiac pacemaker/AICD. Median sternotomy wires and mediastinal surgical clips. Cardio MEMS device. Slightly increased interstitial opacities which may represent atypical/viral infection with superimposed right lower lobe consolidation suspicious for superimposed infection. Recommend follow-up radiographs to ensure resolution. No pleural effusion. No pneumothorax. Unchanged cardiomediastinal silhouette. XR/XR chest 2V IMPRESSION: 1. Slightly increased interstitial opacities which may represent atypical/viral infection with superimposed right lower lobe consolidation suspicious for superimposed infection. Recommend follow-up radiographs to ensure resolution.
--- NOTE | 2023-03-19 16:24 | ED.SOB ---
HPI - SOB/Dyspnea General Chief Complaint: Upper Respiratory Symptoms Stated Complaint: WHITE SPUTUM,PRODUCTIVE COUGH Time Seen by Provider: 03/19/23 16:09 Source: patient and EMS Mode of arrival: EMS Limitations: no limitations History of Present Illness HPI Narrative: Patient is a 68-year-old female who presents emergency department for evaluation of multiple complaints. She reports over the past 2 days she has been experiencing increasing shortness of breath and productive cough (with white sputum) increased from her baseline. She has attempted use of her Combivent Respimat inhaler without much improvement. Today she was at her daughter's home, she had climbed up 4 flights of stairs and had Thanksgiving dinner there. When asked she does state that she is experiencing pain diffusely throughout the anterior chest but only during episodes of coughing. She also expresses pain to the bilateral shoulders that is only felt during coughing. She reports compliance with all of her medications including her furosemide, and she is anticoagulated on Xarelto. She denies any sick contacts recently. She denies fevers, chills, nausea, vomiting, abdominal pain, genitourinary symptoms, constipation, diarrhea, numbness or tingling of the extremities, weakness. Related Data Home Medications Medication Instructions Recorded Confirmed atorvastatin 80 mg tablet 80 mg PO BEDTIME 02/27/20 11/20/22 insulin aspart U-100 100 unit/mL 3 - 5 unit subcut TID 06/26/20 11/20/22 (3 mL) subcutaneous pen citalopram 20 mg tablet 20 mg PO DAILY 07/21/20 11/20/22 furosemide 40 mg tablet (Lasix) 80 mg PO BID 11/05/22 11/20/22 insulin glargine 100 unit/mL (3 28 unit subcut BEDTIME 11/05/22 11/20/22 mL) subcutaneous pen (Lantus Solostar U-100 Insulin) rivaroxaban 20 mg tablet (Xarelto) 20 mg PO DAILY@1700 11/05/22 11/20/22 Previous Rx's Medication Instructions Recorded carvedilol 25 mg tablet 25 mg PO BID #180 tabs 04/15/22 ipratropium 20 mcg-albuterol 100 1 puff inhalation QID PRN 05/21/22 mcg/actuation mist for inhalation Wheezing/Sob. 90 days #4 grams (Combivent Respimat) sacubitril 97 mg-valsartan 103 mg 1 tab PO BID 90 days #180 tabs 06/11/22 tablet (Entresto) empagliflozin 10 mg tablet 10 mg PO DAILY #30 tabs 08/14/22 (Jardiance) nicotine 14 mg/24 hr daily 14 mg transdermal DAILY Nicotine 11/06/22 transdermal patch Cravings #28 ea Allergies Allergy/AdvReac Type Severity Reaction Status Date / Time No Known Allergies Allergy Verified 03/19/23 16:16 Review of Systems Review of Systems: Yes all other systems are reviewed and are negative [facility] Past Medical History Attestation statement: The following information was validated with the patient. Source: old records reviewed Medical History (Updated 03/20/23 @ 01:30 by Maya Sauceda CNP) Sleep apnea Presence of CardioMEMS HF system Hx of myocardial infarction Anxiety and depression Osteoarthritis Fatty liver Restrictive lung disease TAQUERIA treated with BiPAP Morbid obesity Biventricular ICD (implantable cardioverter-defibrillator) in place CAD (coronary artery disease) Non-rheumatic aortic stenosis Atherosclerotic cardiovascular disease Acute on chronic systolic and diastolic heart failure, NYHA class 3 Leukocytosis Dyspnea Transaminitis Hypoxia Congestive heart failure TAQUERIA (obstructive sleep apnea) NSVT (nonsustained ventricular tachycardia) Cardiomyopathy Chronic systolic heart failure Diabetes mellitus HLD (hyperlipidemia) HTN (hypertension) Surgical History History of incision and drainage Status post coronary artery bypass graft Stented coronary artery Hx of CABG History of cardiac cath Hx of cardiac cath Hx of cardiac cath Hx of appendectomy History of cholecystectomy Family History Family History Father No problems noted. Mother No problems noted. Social History (Updated 01/21/23 @ 11:00 by Rashida Russell PA-C) Household Members: Family and Children Housing: Apartment Are you a primary child care attendant to a significant other at home: No Do you presently have visiting nurse or other home services: Yes (CCR every few months to check in) Alcohol intake: never Patient Tobacco Use Status: Former Tobacco user Quit Date: 2020 Tobacco use type: Cigarette Cigarette Packs Per Day: 1 Years Smoked: 30 Smoked in Last 30 Days: No e-Cigarette/Vaping Use: Former Use Second Hand Smoke Exposure: Yes Use of substances other than those prescribed or required for medical reasons: No Advance Directives: Yes Advance Directives on File: Yes Advance Directives Date on File: 11/07/22 service: No Current occupational status: unemployed and disabled Current occupation: rt hand Physical Exam Vital Signs: Vital Signs: Last Vital Signs Temp 97.9 F 03/19/23 22:00 Pulse 80 03/19/23 23:30 Resp 16 03/19/23 23:30 BP 158/62 H 03/19/23 23:30 Pulse Ox 93 03/19/23 22:00 O2 Del Method Room Air 03/19/23 23:30 BMI result Body Mass Index 48.0 Appearance: Alert.?Oriented to person, place and time. No acute distress.?Normal affect. Eyes: Pupils equal, round and reactive to light.? ENT: Pharynx normal.?? Neck: Normal inspection.? Neck supple.??FROM. CVS: Heart sounds normal. Normal heart rate and rhythm.? Pulses normal.?? Respiratory: No respiratory distress.? Minimal air movement upon inspiration, expiratory wheezing present Abdomen: Soft and non-tender. Normoactive bowel sounds. Skin: Skin warm and dry.? Normal skin color.? Normal skin turgor.?? Extremities: 1+ pitting bilateral lower extremity edema, baseline for patient.? No calf ttp? Neuro: Moves all extremities spontaneously. Sensation intact bilaterally. No focal neuro deficits. Ambulates with normal steady gait. Course Reevaluation(s) Reevaluation #1: Received call from lab regarding critical troponin 453.7, upon review she had elevated troponin in October of 2022 in the 300 range, prior to that levels in 2020 in the 200 range. EKG revealing a ventricular paced rhythm with rate of 84, QTC 562, no STEMI. Plan to obtain 3 hour repeat troponin. As previously mentioned she does endorse chest pain but only during episodes of coughing more so consistent with a pleuritic pain, without active cough denies pain. BNP of 444 which appears consistent with baseline. CBC is without leukocytosis or anemia. COVID-19 and influenza testing are negative. Time: 18:09 Reevaluation #2: Chest x-ray revealing Right lower lobe consolidation, concerning for pneumonia, will cover with Rocephin and doxycycline patient updated on plan of care. Repeat troponin and EKG are pending. Time: 19:30 Reevaluation #3: Repeat EKG without acute changes, delta troponin flat. Suspect type 2 secondary to hypoxemia. I did consult with Cardiology, Dr. Reza, who agrees, no indication for heparinization at this time. Attempted ambulatory O2 trial with patient, she became severely dyspneic with minimal exertion, O2 saturation down to 90% on room air, tachycardic up to 120 and she expresses concern about being able to safely go home due to her work breathing. Spoke with hospitalist, Dr. Al, accepts patient for admission to medicine service. Time: 21:27 Medications Administered Generic Name Dose Route Start Last Admin Trade Name Freq PRN Reason Stop Dose Admin Azithromycin 500 mg/ Sodium 250 mls @ 125 mls/hr 03/19/23 23:00 03/19/23 23:13 Chloride IV 125 mls/hr Q24H WALLACE Administration Sodium Chloride 3 ml 03/20/23 00:00 03/20/23 00:38 0.9 % Sodium Chloride Flush 3 Ml Syringe IVFLUSH Not Given QSHIFT WALLACE Discontinued Medications Generic Name Dose Route Start Last Admin Trade Name Freq PRN Reason Stop Dose Admin Albuterol Sulfate 5 mg/ 0 mg 03/19/23 17:09 03/19/23 17:14 Albuterol/Ipratropium 3 ml INHALE 03/19/23 17:10 5 each ONCE ONE Administration Ceftriaxone Sodium 1 gm/ 50 mls @ 100 mls/hr 03/19/23 19:31 03/19/23 21:04 Sodium Chloride IV 03/19/23 20:00 Infused ONCE ONE Infusion Doxycycline Hyclate 100 mg/ 250 mls @ 166.67 mls/hr 03/19/23 22:43 03/19/23 23:08 Sodium Chloride IV 03/20/23 00:12 Not Given ONCE ONE Methylprednisolone Sodium Succinate 125 mg 03/19/23 16:32 03/19/23 17:05 Methylprednisolone Sod Succ 125 Mg/2 Ml Vial IVPUSH 03/19/23 16:33 125 mg ONCE ONE Administration Medical Decision Making Medical Decision Making MDM Narrative: Patient is a 68-year-old female with past medical history of myocardial infarction s/p CABG, ASCVD, and SVT, biventricular ICD, systolic and diastolic heart failure class 3 with CardioMEMS HF system, anxiety, depression, osteoarthritis, fatty liver, restrictive lung disease (prn Combivent Respimat inhaler), TAQUERIA with BiPAP, morbid obesity, transaminitis, diabetes, hyperlipidemia, hypertension presenting to emergency department for evaluation of cough and shortness of breath as per HPI. At the time my examination she appears overall well, she is in no respiratory distress. She is able to speak clear full sentences. She is without tachypnea, tachycardia, or hypoxia and she is afebrile. She is noted to be hypertensive, she does state that she took her medications today as prescribed. Will obtain CBC to evaluate for leukocytosis/ anemia, CMP and lipase to evaluate for abnormal electrolytes /abnormal renal function/ abnormal hepatic/biliary function, EKG and troponin to evaluate for ischemia/ACS. Chest x-ray to evaluate for consolidation/ infiltrate/ mass/ pulmonary congestion, COVID-19/influenza testing. Patient to receive Solu-Medrol IV, ED bronchodilator protocol ordered. Differential Diagnosis Differential Diagnoses: The differential diagnosis associated with the presentation includes (Viral syndrome, pneumonia, ACS, CHF exacerbation. She is anticoagulated with Xarelto, PE less likely, Wells negative.) Admission/Observation Consideration of admission/observation: Escalation of care including admission/observation considered (I considered admission for shortness of breath, see narrative above and course narrative for further detail) Consult Healthcare Provider Management of the patient was discussed with: Hospitalist (As per HPI) and Book Retailer (As per HPI) Lab Data MDM Lab Attestation statement: I reviewed the patient's lab results. (See course narrative for further detail) 03/19/23 16:50 03/19/23 16:50 Labs: Lab Results 03/19/23 03/19/23 Range/Units 16:50 20:07 WBC 7.0 (4.8-10.8) X10*3/uL RBC 5.23 (4.20-5.50) X10*6/uL Hgb 15.5 (12.0-16.0) g/dl Hct 47.6 H (37.0-47.0) % MCV 91.0 (80.0-98.0) fL MCH 29.6 (27.0-33.0) pg MCHC 32.6 (31.0-35.0) g/dl RDW 16.3 H (11.0-16.0) % Plt Count 120 L (160-400) X10*3/uL MPV 11.6 (9.4-12.3) fL Immature Gran % (Auto) 0.1 (0.0-0.4) % Neut % (Auto) 58.5 (45-73) % Lymph % (Auto) 28.9 (20-40) % [place] % (Auto) 7.3 (2-11) % Eos % (Auto) 4.5 H (0-4) % Baso % (Auto) 0.7 (0-2) % Lymph # (Auto) 2.0 (1.2-4.9) X10*3/uL [place] # (Auto) 0.5 (0.1-1.2) X10*3/uL Eos # (Auto) 0.3 (0.0-0.4) X10*3/uL Baso # (Auto) 0.1 (0.0-0.2) X10*3/uL Abs Immat Gran (auto) 0.01 (0.00-0.03) X10*3/uL Absolute Neuts (auto) 4.1 (2.0-8.3) x10*3/uL Absolute Nucleated RBC 0.000 (0.0-0.012) X10*3/uL Nucleated RBC % (auto) 0.0 (0.0-0.2) /100WBC PT 11.3 (11.1-13.3) SEC INR 0.9 (0.9-1.1) Sodium 141 (135-145) mmol/L Potassium 4.0 (3.3-5.1) mmol/L Chloride 106 (96-108) mmol/L Carbon Dioxide 28 (22-29) mmol/L Anion Gap 11 L (12-20) BUN 17 H (9-16) mg/dL Creatinine 1.38 (0.5-1.4) mg/dL Estim Creat Clear Calc 41.9 Estimated GFR 38 Random Glucose 218 H (60-115) mg/dL Calcium 8.7 D (8.4-10.2) mg/dL Magnesium 2.2 (1.6-2.6) mg/dL Total Bilirubin 0.5 (0.0-1.0) mg/dL AST 20 (5-31) U/L ALT 14 (0-31) U/L Alkaline Phosphatase 113 (39-117) U/L Troponin I High Sens 453.7 H* 437.1 H* (<3.5-17.0) ng/L B-Natriuretic Peptide 444 H (<100) pg/mL Total Protein 7.3 (6.5-8.0) g/dL Albumin 3.9 (3.5-5.0) g/dL Lipase 22 (8-78) U/L COVID-19 ([place]) Negative (Negative) COVID-19 Clin Com See Note Influenza Type A ([place]) Negative (Negative) Influenza Type B ([place]) Negative (Negative) Influenza A & B Note See Note Independent Interpretation I performed an independent interpretation of an: EKG (As per course narrative) and Plain X-Ray (I personally interpreted chest x-ray and agree with radiologist impression.) Radiology Impression Discussion of test interpretation with radiology: I have reviewed the radiologist's reading. Radiologist Impression: XR/XR chest 2V IMPRESSION: 1. Slightly increased interstitial opacities which may represent atypical/viral infection with superimposed right lower lobe consolidation suspicious for superimposed infection. Recommend follow-up radiographs to ensure resolution. Independent Historian Clinical information obtained from an independent historian. History obtained from or confirmed by: EMS External Record Review External record reviewed: Outpatient record and Prior outpatient labs Critical Care Time Critical Care Time Critical Care Time: Yes Total Critical Care Time: 40 Attestation: I personally attest to this critical care time spent taking care of the patient exclusive of all other billable procedures was approximately 40 minutes including initial evaluation of patient, ordering tests, x-ray interpretation, EKG interpretation, medical consultation, documentation, re-evaluation. Discharge Plan Discharge Clinical Impression: Community acquired pneumonia, Chronic systolic heart failure, Restrictive lung disease, Chronic diastolic heart failure Patient Disposition: Admitted As Inpatient
--- NOTE | 2023-03-19 16:33 | ECG_ITS ---
Test Reason : CP/SOB Blood Pressure : / mmHG Vent. Rate : 084 BPM Atrial Rate : 084 BPM P-R Int : 000 ms QRS Dur : 166 ms QT Int : 476 ms P-R-T Axes : 097 221 142 degrees QTc Int : 562 ms Ventricular-paced rhythm Biventricular pacemaker detected Abnormal ECG When compared with ECG of 05-NOV-2022 16:56, Vent. rate has increased BY 22 BPM Referred By: Maya Sauceda Electronically Signed By:BRYAN FOX MD
[2023-03-19 16:56] LABS: MANUAL DIFF FLAG NO
[2023-03-19] MEDS: methylPREDNISolone Sod Succ 125 MG/2 ML VIAL IVPUSH (17:05)
--- NOTE | 2023-03-19 17:07 | PC.NURSE ---
patient a&ox3, lungs in/ex wheezing throughout, research management associate intact, vss, pt medicated per order, call stratton within reach, will continue to monitor
[2023-03-19 17:09] LABS: INTERNATIONAL NORM RATIO 0.9 (0.9-1.1); Prothrombin Time 11.3 SEC (11.1-13.3)
[2023-03-19 17:10] LABS: Basophils Absolute Auto 0.1 X10*3/uL (0.0-0.2); Basophils Percent Auto 0.7 % (0-2); Eosinophils Absolute Auto 0.3 X10*3/uL (0.0-0.4); Eosinophils Percent Auto 4.5 % (0-4); Hematocrit 47.6 % (37.0-47.0); Hemoglobin 15.5 g/dl (12.0-16.0); Imm Gran Abs Auto 0.01 X10*3/uL (0.00-0.03); Imm Gran Pct Auto 0.1 % (0.0-0.4); Lymphocytes Percent Auto 28.9 % (20-40); Mean Corpuscular HGB Conc 32.6 g/dl (31.0-35.0); Mean Corpuscular Hemoglobin 29.6 pg (27.0-33.0); Mean Platelet Volume 11.6 fL (9.4-12.3); Monocytes Absolute Auto 0.5 X10*3/uL (0.1-1.2); Monocytes Percent Auto 7.3 % (2-11); Neutrophils Absolute Auto 4.1 x10*3/uL (2.0-8.3); Neutrophils Percent Auto 58.5 % (45-73); Platelet Count 120 X10*3/uL (160-400); Red Blood Count 5.23 X10*6/uL (4.20-5.50); Red Cell Distribution Width 16.3 % (11.0-16.0)
[2023-03-19 17:14] LABS: IDNOW Serial# 9DB6401D; Influenza A Negative (Negative); Influenza B2 Negative (Negative)
[2023-03-19] MEDS: Albuterol Sulfate 5 MG, Albuterol/Iprat 2.5/0.5MG 3 ML 3 ML INHALE (17:14)
[2023-03-19 17:15] LABS: Alanine Aminotransferase 14 U/L (0-31); Albumin Level 3.9 g/dL (3.5-5.0); Alkaline Phosphatase 113 U/L (39-117); Anion Gap 11 (12-20); Aspartate Amino Transferase 20 U/L (5-31); Bilirubin Total 0.5 mg/dL (0.0-1.0); Blood Urea Nitrogen 17 mg/dL (9-16); Calcium 8.7 mg/dL (8.4-10.2); Carbon Dioxide 28 mmol/L (22-29); Chloride 106 mmol/L (96-108); Creatinine Clr Calc Pharmacy 41.9; Estimated Glomerular Filt Rate 38; Glucose Random 218 mg/dL (60-115); Lipase 22 U/L (8-78); Magnesium 2.2 mg/dL (1.6-2.6); Sodium 141 mmol/L (135-145); Total Protein 7.3 g/dL (6.5-8.0)
[2023-03-19 17:21] LABS: B Type Natriuretic Peptide 444 pg/mL (<100)
[2023-03-19 17:24] LABS: COVID-19 Test Negative (Negative); IDNOW Serial# 58CA691E
[2023-03-19 17:33] LABS: Troponin-I High Sensitivity 453.7 ng/L (<3.5-17.0)
--- NOTE | 2023-03-19 18:07 | PC.NURSE ---
there has been a delay in doing the EKG as the machines were being used/only 2 techs available on the floor as well.
--- NOTE | 2023-03-19 18:26 | PC.NURSE ---
patient a&ox3, onshore diver intact nsr 80s, vss, pt aware of troponin elevated and repeat will be performed at 8pm, pt continues to cough and have in/ex wheezing, call stratton within reach, will continue to monitor
[2023-03-19] MEDS: cefTRIAXone sodium 1 GM in 0.9 % Sodium Chloride 50 ML IV (20:20)
--- NOTE | 2023-03-19 20:30 | PC.NURSE ---
pt resting w/o distress. piv c/d/i.
--- NOTE | 2023-03-19 20:31 | ECG_ITS ---
Test Reason : REPEAT Blood Pressure : / mmHG Vent. Rate : 084 BPM Atrial Rate : 084 BPM P-R Int : 126 ms QRS Dur : 120 ms QT Int : 450 ms P-R-T Axes : 050 219 053 degrees QTc Int : 531 ms Atrial-sensed ventricular-paced rhythm with occasional Premature ventricular complexes Biventricular pacemaker detected Abnormal ECG When compared with ECG of 19-MAR-2023 18:02, Premature ventricular complexes are now Present Referred By: aMya Sauceda Electronically Signed By:BRYAN FOX MD
[2023-03-19 20:56] LABS: Troponin-I High Sensitivity 437.1 ng/L (<3.5-17.0)
--- NOTE | 2023-03-19 21:52 | MHC.EDTECH ---
PATIENT WAS AMBULATED TO BATHROOM.PATIENTS O2 PRIOR TO AMBULATION WAS 95,HEART RATE WAS 98 AND RESPIRATIONS 18.AFTER AMBULATING TO BATHROOM PATIENTS O2 DROPPED TO 91,HEART RATE INCREASED TO 110 AND RESPIRATIONS WERE 22.PATIENT STATED FEELING FATIGUED AND HOT.PATIENT HAD TO STOP WHEN WALKING BACK TO ROOM TO CATCH HER BREATH.PATIENTS AFFECT WAS SWEATY.
--- NOTE | 2023-03-19 22:09 | PC.NURSE ---
Assumed care of pt. Pt sitting upright on stretcher, endorsing mild SOB and cough. Lung sounds with expiratory wheezing and crackles heard. MD aware. Pt sts wears CPAP at night to sleep. Sts has fluid restriction at this time. Pending disposition.
[2023-03-19] MEDS: Azithromycin 500 MG in 0.9 % Sodium Chloride 250 ML 125 MG IV (23:13)
[2023-03-20] VITALS (8 sets, daily range): BP systolic 152–198; BP diastolic 67–85; PULSE 72–82; RESP 14–20; TEMP 35.9–36.8; O2SAT 90–95; BMI 46.4
--- NOTE | 2023-03-20 05:12 | P.HPHOSP_ITS ---
History of Present Illness Date of Service: 03/20/23 Chief Complaint: SOB 68-year-old female with extensive past medical history that includes diabetes, HTN, CAD, presence of biventricular ICD, TAQUERIA on CPAP at bedtime, restrictive lung disease, aortic stenosis, cardiomyopathy mixed ischemic and nonischemic, comes into the hospital with complaints of shortness of breath x2 days. Patient reports that she initially started having a cough about 3 days ago, went to her daughter's house to prepare for Thanksgiving then developed chills and was not feeling well overall, the cough was productive, but then yesterday she started developing shortness of breath and having difficulty catching her breath decided to come to the hospital. Denies any chest pain, no abdominal pain, no nausea or vomiting, no diarrhea constipation, no urinary symptoms and no lower extremity edema. No sick contacts recently no recent travel. On arrival to the ED patient hemodynamically stable Labs are significant for WBC count of 7.0, BUN of 17, creatinine of 1.38 which is around her baseline, initial troponin of 453 decreased to 437 , BNP of 444, Chest x-ray shows slightly increased interstitial opacities which may represent atypical viral infection with superimposed right lower lobe consolidation suspicious for superimposed infection patient will be admitted for further management Review of Systems 2 Review of Systems: Yes all other systems are reviewed and are negative [facility] Medical History Sleep apnea Presence of CardioMEMS HF system Hx of myocardial infarction Anxiety and depression Osteoarthritis Fatty liver Restrictive lung disease TAQUERIA treated with BiPAP Morbid obesity Biventricular ICD (implantable cardioverter-defibrillator) in place CAD (coronary artery disease) Non-rheumatic aortic stenosis Atherosclerotic cardiovascular disease Acute on chronic systolic and diastolic heart failure, NYHA class 3 Leukocytosis Dyspnea Transaminitis Hypoxia Congestive heart failure TAQUERIA (obstructive sleep apnea) NSVT (nonsustained ventricular tachycardia) Cardiomyopathy Chronic systolic heart failure Diabetes mellitus HLD (hyperlipidemia) HTN (hypertension) Family History Father No problems noted. Mother No problems noted. Surgical History History of incision and drainage Status post coronary artery bypass graft Stented coronary artery Hx of CABG History of cardiac cath Hx of cardiac cath Hx of cardiac cath Hx of appendectomy History of cholecystectomy Household Members: Children Household Members Other:: son and daughter in law Housing: Apartment Are you a primary care management associate to a significant other at home: No Do you presently have visiting nurse or other home services: No Alcohol intake: never Patient Tobacco Use Status: Former Tobacco user Quit Date: 2020 Tobacco use type: Cigarette Cigarette Packs Per Day: 1 Years Smoked: 30 Smoked in Last 30 Days: No e-Cigarette/Vaping Use: Former Use Second Hand Smoke Exposure: Yes Use of substances other than those prescribed or required for medical reasons: No Currently Displaying Signs/Symptoms of Drug Intoxication Withdrawal: No Have you been hit, kicked, punched, or otherwise hurt by someone within the past year? If so, by whom?: No Do you feel safe in your current relationship?: Yes Is there a partner from a previous relationship who is making you feel unsafe now?: No Are you made to feel afraid or neglected: No Advance Directives: Yes Advance Directives on File: Yes Advance Directives Date on File: 11/07/22 Do you have thoughts of harming others: None Do you have a plan to hurt others: No Plan Recently lost weight without trying: No How much weight loss: Not applicable Eating poorly because of decreased appetite: No Nutrition screen score: 0 Nutrition Risks: No Nutritional Risk Patient : No : No Poor oral hygiene: No service: No Current occupational status: unemployed and disabled Current occupation: rt hand Meds Allergies Allergy/AdvReac Type Severity Reaction Status Date / Time No Known Allergies Allergy Verified 03/19/23 16:16 Active Medications: Current Medications Acetaminophen (Acetaminophen 325 Mg Tablet) 650 mg PO Q6H PRN PRN Reason: Pain, Mild (Pain Scale 1-3) Docusate Sodium (Docusate Sodium 100 Mg Capsule) 100 mg PO DAILY PRN PRN Reason: Constipation Ceftriaxone Sodium 1 gm/ (Sodium Chloride) 50 mls @ 100 mls/hr IV Q24H [facility] Azithromycin 500 mg/ Sodium (Chloride) 250 mls @ 125 mls/hr IV Q24H [facility] Last Infusion: 03/20/23 01:37 Dose: Infused Ondansetron HCl (Ondansetron Hcl 4 Mg/2 Ml Vial) 4 mg IVPUSH Q8H PRN PRN Reason: Nausea and Vomiting Sodium Chloride (0.9 % Sodium Chloride Flush 3 Ml Syringe) 3 ml IVFLU QSHIFT [facility] Last Admin: 03/20/23 00:38 Dose: Not Given Home Medications Medication Instructions Recorded Confirmed Last Taken Type atorvastatin 80 mg tablet 80 mg PO BEDTIME 02/27/20 11/20/22 11/04/22 History insulin aspart U-100 100 unit/mL 3 - 5 unit subcut TID 06/26/20 11/20/22 11/04/22 History (3 mL) subcutaneous pen citalopram 20 mg tablet 20 mg PO DAILY 07/21/20 11/20/22 11/04/22 History furosemide 40 mg tablet (Lasix) 80 mg PO BID 11/05/22 11/20/22 11/04/22 History insulin glargine 100 unit/mL (3 28 unit subcut BEDTIME 11/05/22 11/20/22 11/04/22 History mL) subcutaneous pen (Lantus Solostar U-100 Insulin) rivaroxaban 20 mg tablet (Xarelto) 20 mg PO DAILY@1700 11/05/22 11/20/22 11/04/22 History Physical Exam 2 Vital Signs and Narrative: Vital Signs: Last Vital Signs Temp 96.9 F 03/20/23 03:32 Pulse 80 03/20/23 03:32 Resp 20 03/20/23 03:32 BP 155/76 H 03/20/23 03:32 Pulse Ox 93 03/20/23 03:32 O2 Del Method Room Air 03/20/23 03:32 BMI result Body Mass Index 46.4 Const: General: cooperative and no acute distress O rientation/consciousness: patient oriented x3 Eyes: General: appearance normal, both eyes and all related structures P upils: Equal, round and reactive pupils present Resp: Other: rhonchi bilaterally Effort & Inspection: normal respiratory effort Cardio: Rate: regular rate Rhythm: regular rhythm GI: Palpation (GI): Soft to palpation Auscultation: normal bowel sounds Skin: General skin exam: no rashes or lesions noted Neuro: General: patient oriented x3 Cranial nerves: Yes Equal, round and reactive pupils present Cognition (Neuro): normal cognition Extrem: General: Yes normal to inspection and Yes no pedal edema Results Labs 03/19/23 16:50 03/19/23 16:50 Labs: Laboratory Results - last 24 hr 03/19/23 16:50 MCV 91.0 MCH 29.6 MCHC 32.6 RDW 16.3 H Plt Count 120 L MPV 11.6 Immature Gran % (Auto) 0.1 Neut % (Auto) 58.5 Lymph % (Auto) 28.9 [place] % (Auto) 7.3 Eos % (Auto) 4.5 H Baso % (Auto) 0.7 Lymph # (Auto) 2.0 [place] # (Auto) 0.5 Eos # (Auto) 0.3 Baso # (Auto) 0.1 Abs Immat Gran (auto) 0.01 Absolute Neuts (auto) 4.1 Absolute Nucleated RBC 0.000 Nucleated RBC % (auto) 0.0 PT 11.3 INR 0.9 Anion Gap 11 L Estim Creat Clear Calc 41.9 Estimated GFR 38 Random Glucose 218 H Calcium 8.7 D Magnesium 2.2 Total Bilirubin 0.5 AST 20 ALT 14 Alkaline Phosphatase 113 B-Natriuretic Peptide 444 H Total Protein 7.3 Albumin 3.9 Lipase 22 COVID-19 ([facility]) Negative COVID-19 Clin Com See Note Influenza Type A ([facility]) Negative Influenza Type B ([facility]) Negative Influenza A & B Note See Note Imaging Radiologist's Impressions: Impressions Chest X-Ray 03/19/23 18:00 IMPRESSION: 1. Slightly increased interstitial opacities which may represent atypical/viral infection with superimposed right lower lobe consolidation suspicious for superimposed infection. Recommend follow-up radiographs to ensure resolution. Assessment and Plan (1) Community acquired pneumonia: Qualifiers: Laterality: right Lung location: lower lobe of lung Qualified Code(s): J18.9 - Pneumonia, unspecified organism Status: Acute (2) Elevated troponin: Status: Acute Plan 8-year-old female with past medical history of mixed nonischemic / skin gray cardiomyopathy, diastolic heart failure, TAQUERIA, restrictive lung disease, CAD, biventricular ICD, HDL, HTN, diabetes comes into the hospital with complaints of shortness of breath found to have pneumonia # acute community-acquired pneumonia - no leukocytosis, afebrile, no hypoxia - will start on IV antibiotics - follow cultures # elevated troponin - likely type 2 in the setting of acute infection - no chest pain, no EKG changes suggestive of ACS - will admit to telemetry, monitor - continue baseline statin, carvedilol, # diabetes - hold oral antihyperglycemics - Continue home Lantus - low-dose sliding scale insulin # history of CHF - diastolic - no evidence of exacerbation - continue home furosemide, as well Entresto the rest of med rec is pending pharmacy confirmation DVT prophylaxis: Xarelto given patient's need for further management of pneumonia requiring IV antibiotics patient require minimum 2 nights inpatient hospital stay for further management and monitoring Quality Stroke Does the patient have a stroke diagnosis?: No VTE Prior VTE?: No VTE Risk Level:: Medical - moderate - high VTE Device Contraindication: Treatment Not Indicated VTE Drug Contraindication: N/A - Med Ordered
--- NOTE | 2023-03-20 07:35 | PHA.MEDREC ---
Pharmacy Consult ? Medication Reconciliation Pharmacy has completed the medication reconciliation.
[2023-03-20 07:43] LABS: MANUAL DIFF FLAG NO
[2023-03-20 07:55] LABS: Basophils Percent Auto 0.2 % (0-2); Eosinophils Percent Auto 0.5 % (0-4); Hematocrit 50.9 % (37.0-47.0); Hemoglobin 16.4 g/dl (12.0-16.0); Imm Gran Abs Auto 0.06 X10*3/uL (0.00-0.03); Lymphocytes Absolute Auto 1.5 X10*3/uL (1.2-4.9); Lymphocytes Percent Auto 24.2 % (20-40); Mean Corpuscular HGB Conc 32.2 g/dl (31.0-35.0); Mean Corpuscular Hemoglobin 29.3 pg (27.0-33.0); Mean Corpuscular Volume 90.9 fL (80.0-98.0); Mean Platelet Volume 12.1 fL (9.4-12.3); Monocytes Absolute Auto 0.1 X10*3/uL (0.1-1.2); Monocytes Percent Auto 2.1 % (2-11); Neutrophils Absolute Auto 4.5 x10*3/uL (2.0-8.3); Platelet Count 129 X10*3/uL (160-400); Red Cell Distribution Width 16.5 % (11.0-16.0); White Blood Count 6.3 X10*3/uL (4.8-10.8)
[2023-03-20 08:14] LABS: Alanine Aminotransferase 13 U/L (0-31); Albumin Level 4.1 g/dL (3.5-5.0); Alkaline Phosphatase 105 U/L (39-117); Anion Gap 14 (12-20); Aspartate Amino Transferase 19 U/L (5-31); Bilirubin Total 0.5 mg/dL (0.0-1.0); Blood Urea Nitrogen 18 mg/dL (9-16); Calcium 9.2 mg/dL (8.4-10.2); Carbon Dioxide 22 mmol/L (22-29); Chloride 108 mmol/L (96-108); Creatinine Clr Calc Pharmacy 45.3; Estimated Glomerular Filt Rate 42; Glucose Random 288 mg/dL (60-115); Potassium 4.1 mmol/L (3.3-5.1); Sodium 140 mmol/L (135-145); Total Protein 7.8 g/dL (6.5-8.0)
[2023-03-20 08:16] LABS: Glucose, Whole Blood 278 mg/dL (60-115)
[2023-03-20] MEDS: Sacubitril/Valsartan 97/103 1 TAB TABLET PO ×2 (08:35→20:22)
[2023-03-20] MEDS: 0.9 % Sodium Chloride Flush 3 ML SYRINGE IVFLUSH ×3 (08:35→20:24)
[2023-03-20] MEDS: Empagliflozin 25 MG TABLET PO (08:35)
[2023-03-20] MEDS: Insulin Lispro 100 UNIT/ML 3 ML VIAL SUBCUT ×4 (08:35→21:15)
[2023-03-20] MEDS: Furosemide 40 MG TABLET 80 MG PO ×2 (08:36→15:46)
[2023-03-20] MEDS: Escitalopram Oxalate 10 MG TABLET PO (08:36)
[2023-03-20] MEDS: carvediloL 25 MG TABLET PO ×2 (08:36→20:23)
[2023-03-20] MEDS: predniSONE 20 MG TABLET 40 MG PO (08:36)
--- NOTE | 2023-03-20 09:13 | P.PNIM_ITS ---
Subjective Subjective Date of Service: 03/20/23 Interval History: sob, cough Physical Exam 2 Vital Signs: Vital Signs: Last Vital Signs Temp 98.1 F 03/20/23 07:25 Pulse 78 03/20/23 07:25 Resp 18 03/20/23 07:25 BP 172/84 H 03/20/23 07:25 Pulse Ox 94 03/20/23 07:25 O2 Del Method Room Air 03/20/23 07:25 BMI result Body Mass Index 46.4 General: AO X 3, no acute distress Resp: wheezes bilateral, no accessory muscles used CVS: S1,S2,RRR GI: soft, non tender, non distended Neuro: motor grossly intact, alert Psych: appropriate affect, appropriate insight Objective Data Active Medications Acetaminophen (Acetaminophen 325 Mg Tablet) 650 mg PO Q6H PRN PRN Reason: Pain, Mild (Pain Scale 1-3) Atorvastatin Calcium (Atorvastatin Calcium 80 Mg Tablet) 80 mg PO BEDTIME [facility] Carvedilol (Carvedilol 25 Mg Tablet) 25 mg PO BID [facility]; Protocol Last Admin: 03/20/23 08:36 Dose: 25 mg Documented By: WOOD Dextrose (Dextrose 50 % 25 Gm/50 Ml Syringe) 25 gm IVPUSH Q15M PRN; Protocol PRN Reason: per Hypoglycemia Standing Ord. Docusate Sodium (Docusate Sodium 100 Mg Capsule) 100 mg PO DAILY PRN PRN Reason: Constipation Empagliflozin (Empagliflozin 25 Mg Tablet) 25 mg PO DAILY [facility] Last Admin: 03/20/23 08:35 Dose: 25 mg Documented By: WOOD Escitalopram Oxalate (Escitalopram Oxalate 10 Mg Tablet) 10 mg PO DAILY [facility] Last Admin: 03/20/23 08:36 Dose: 10 mg Documented By: WOOD Furosemide (Furosemide 40 Mg Tablet) 80 mg PO BID@0800,1400 [facility]; Protocol Last Admin: 03/20/23 08:36 Dose: 80 mg Documented By: WOOD Glucose (Glucose Gel 15 Gm Gel..Gram.) 15 gm PO Q15M PRN; Protocol PRN Reason: per Hypoglycemia Standing Ord. Guaifenesin (Guaifenesin 200 Mg/10 Ml 10 Ml Liquid) 10 ml PO Q4H PRN PRN Reason: Cough Ceftriaxone Sodium 1 gm/ (Sodium Chloride) 50 mls @ 100 mls/hr IV Q24H [facility] Azithromycin 500 mg/ Sodium (Chloride) 250 mls @ 125 mls/hr IV Q24H [facility] Last Infusion: 03/20/23 01:37 Dose: Infused Documented By: VIRAJ Insulin Glargine (Insulin Glargine,Hum.Rec.Anlog 100 Unit/Ml 10 Ml Vial) 28 unit SUBCUT BEDTIME [facility] Insulin Human Lispro (Insulin Lispro 100 Unit/Ml 3 Ml Vial) 0 unit SUBCUT QIDACHS [facility]; Protocol Last Admin: 03/20/23 08:35 Dose: 6 unit Documented By: WOOD Ondansetron HCl (Ondansetron Hcl 4 Mg/2 Ml Vial) 4 mg IVPUSH Q8H PRN PRN Reason: Nausea and Vomiting Prednisone (Prednisone 20 Mg Tablet) 40 mg PO DAILY [facility] Last Admin: 03/20/23 08:36 Dose: 40 mg Documented By: WOOD Rivaroxaban (Rivaroxaban 15 Mg Tablet) 15 mg PO DAILY@1700 [facility] Sacubitril/Valsartan (Sacubitril/Valsartan 97/103 1 Tab Tablet) 1 tab PO BID [facility]; Protocol Last Admin: 03/20/23 08:35 Dose: 1 tab Documented By: WOOD Sodium Chloride (0.9 % Sodium Chloride Flush 3 Ml Syringe) 3 ml IVFLUSH QSHIFT [facility] Last Admin: 03/20/23 08:35 Dose: 3 ml Documented By: WOOD Labs 03/20/23 07:03 03/20/23 07:03 Labs: Laboratory Results - last 24 hr 03/19/23 03/20/23 03/20/23 16:50 07:03 08:11 MCV 91.0 90.9 MCH 29.6 29.3 MCHC 32.6 32.2 RDW 16.3 H 16.5 H Plt Count 120 L 129 L MPV 11.6 12.1 Immature Gran % (Auto) 0.1 1.0 H Neut % (Auto) 58.5 72.0 Lymph % (Auto) 28.9 24.2 [place] % (Auto) 7.3 2.1 Eos % (Auto) 4.5 H 0.5 Baso % (Auto) 0.7 0.2 Lymph # (Auto) 2.0 1.5 [place] # (Auto) 0.5 0.1 Eos # (Auto) 0.3 0.0 Baso # (Auto) 0.1 0.0 Abs Immat Gran (auto) 0.01 0.06 H Absolute Neuts (auto) 4.1 4.5 Absolute Nucleated RBC 0.000 0.000 Nucleated RBC % (auto) 0.0 0.0 PT 11.3 INR 0.9 Anion Gap 11 L 14 Estim Creat Clear Calc 41.9 45.3 Estimated GFR 38 42 POC Glucose 278 H Random Glucose 218 H 288 H Calcium 8.7 D 9.2 Magnesium 2.2 Total Bilirubin 0.5 0.5 AST 20 19 ALT 14 13 Alkaline Phosphatase 113 105 B-Natriuretic Peptide 444 H Total Protein 7.3 7.8 Albumin 3.9 4.1 Lipase 22 COVID-19 ([facility]) Negative COVID-19 Clin Com See Note Influenza Type A ([facility]) Negative Influenza Type B ([facility]) Negative Influenza A & B Note See Note Assessment and Plan (1) Community acquired pneumonia: Status: Acute Plan 68F PMH mixed nonischemic / ischemic cardiomyopathy, TAQUERIA, restrictive lung disease, CAD, biventricular ICD, HDL, HTN, mild intermittent asthma, diabetes presented with shortness of breath. mild intermittent asthma with acute decompensation due to atypical pneumonia rocephin, azithro, steroids, nebs elevated troponin flat, not due to acs DM insulin ischemic/non ischemic cardiomyopathy euvolemic, continue entresto, jardiance, lasix, coreg morbid obesity wegiht loss dvt prophylaxis - on xarelto full code reason for continued hospitalization:sob on minimal exertion Quality Stroke Does the patient have a stroke diagnosis?: No VTE Prior VTE?: No VTE Risk Level:: Medical - moderate - high VTE Device Contraindication: Treatment Not Indicated VTE Drug Contraindication: N/A - Med Ordered
[2023-03-20] MEDS: guaiFENesin 200 MG/10 ML 10 ML LIQUID PO ×3 (09:31→20:22)
--- NOTE | 2023-03-20 09:36 | MHC.CM.PN ---
IMM 03/20. Pt lives at home with her son and [id number], is self-care. Pt states she does not want to have any services at home. Pt will need assistance with transportation back home. HCP on file and verified. PCP: Dr. Carmina Martins
--- NOTE | 2023-03-20 10:07 | P.CONCA_ITS ---
History of Present Illness History of Present Illness Date of Service: 03/20/23 Requesting physician: Brandon Mack Chief complaint: PNA, ?CHF Narrative: [age] year female who has known history of cardiomyopathy, restrictive lung disease, obstructive sleep apnea, morbid obesity, diabetes, hypertension, hyperlipidemia and ICD in the past who is presenting with chills and shortness of breath. She has wheezing on examination. She does not have any productive cough currently. Denying any other symptoms. She is saying her weight has been stable and she was taking medications regularly. Blood pressure is elevated. She is denying any chest discomfort otherwise. [facility] Past Medical History Medical History Sleep apnea Presence of CardioMEMS HF system Hx of myocardial infarction Anxiety and depression Osteoarthritis Fatty liver Restrictive lung disease TAQUERIA treated with BiPAP Morbid obesity Biventricular ICD (implantable cardioverter-defibrillator) in place CAD (coronary artery disease) Non-rheumatic aortic stenosis Atherosclerotic cardiovascular disease Acute on chronic systolic and diastolic heart failure, NYHA class 3 Leukocytosis Dyspnea Transaminitis Hypoxia Congestive heart failure TAQUERIA (obstructive sleep apnea) NSVT (nonsustained ventricular tachycardia) Cardiomyopathy Chronic systolic heart failure Diabetes mellitus HLD (hyperlipidemia) HTN (hypertension) Family History Family History Father No problems noted. Mother No problems noted. Surgical History Surgical History History of incision and drainage Status post coronary artery bypass graft Stented coronary artery Hx of CABG History of cardiac cath Hx of cardiac cath Hx of cardiac cath Hx of appendectomy History of cholecystectomy Social History Household Members: Children Household Members Other:: son and daughter in law Housing: Apartment Are you a primary day care home provider to a significant other at home: No Do you presently have visiting nurse or other home services: No Alcohol intake: never Patient Tobacco Use Status: Former Tobacco user Quit Date: 2020 Tobacco use type: Cigarette Cigarette Packs Per Day: 1 Years Smoked: 30 Smoked in Last 30 Days: No e-Cigarette/Vaping Use: Former Use Second Hand Smoke Exposure: Yes Use of substances other than those prescribed or required for medical reasons: No Currently Displaying Signs/Symptoms of Drug Intoxication Withdrawal: No Have you been hit, kicked, punched, or otherwise hurt by someone within the past year? If so, by whom?: No Do you feel safe in your current relationship?: Yes Is there a partner from a previous relationship who is making you feel unsafe now?: No Are you made to feel afraid or neglected: No Advance Directives: Yes Advance Directives on File: Yes Advance Directives Date on File: 11/07/22 Do you have thoughts of harming others: None Do you have a plan to hurt others: No Plan Recently lost weight without trying: No How much weight loss: Not applicable Eating poorly because of decreased appetite: No Nutrition screen score: 0 Nutrition Risks: No Nutritional Risk Patient : No : No Poor oral hygiene: No service: No Current occupational status: unemployed and disabled Current occupation: rt hand Meds Allergies Allergy/AdvReac Type Severity Reaction Status Date / Time No Known Allergies Allergy Verified 03/19/23 16:16 Active Medications: Current Medications Acetaminophen (Acetaminophen 325 Mg Tablet) 650 mg PO Q6H PRN PRN Reason: Pain, Mild (Pain Scale 1-3) Atorvastatin Calcium (Atorvastatin Calcium 80 Mg Tablet) 80 mg PO BEDTIME [facility] Carvedilol (Carvedilol 25 Mg Tablet) 25 mg PO BID [facility]; Protocol Last Admin: 03/20/23 08:36 Dose: 25 mg Dextrose (Dextrose 50 % 25 Gm/50 Ml Syringe) 25 gm IVPUSH Q15M PRN; Protocol PRN Reason: per Hypoglycemia Standing Ord. Docusate Sodium (Docusate Sodium 100 Mg Capsule) 100 mg PO DAILY PRN PRN Reason: Constipation Empagliflozin (Empagliflozin 25 Mg Tablet) 25 mg PO DAILY [facility] Last Admin: 03/20/23 08:35 Dose: 25 mg Escitalopram Oxalate (Escitalopram Oxalate 10 Mg Tablet) 10 mg PO DAILY [facility] Last Admin: 03/20/23 08:36 Dose: 10 mg Furosemide (Furosemide 40 Mg Tablet) 80 mg PO BID@0800,1400 [facility]; Protocol Last Admin: 03/20/23 08:36 Dose: 80 mg Glucose (Glucose Gel 15 Gm Gel..Gram.) 15 gm PO Q15M PRN; Protocol PRN Reason: per Hypoglycemia Standing Ord. Guaifenesin (Guaifenesin 200 Mg/10 Ml 10 Ml Liquid) 10 ml PO Q4H PRN PRN Reason: Cough Last Admin: 03/20/23 09:31 Dose: 10 ml Ceftriaxone Sodium 1 gm/ (Sodium Chloride) 50 mls @ 100 mls/hr IV Q24H [facility] Azithromycin 500 mg/ Sodium (Chloride) 250 mls @ 125 mls/hr IV Q24H [facility] Last Infusion: 03/20/23 01:37 Dose: Infused Insulin Glargine (Insulin Glargine,Hum.Rec.Anlog 100 Unit/Ml 10 Ml Vial) 28 unit SUBCUT BEDTIME [facility] Insulin Human Lispro (Insulin Lispro 100 Unit/Ml 3 Ml Vial) 0 unit SUBCUT QIDACHS [facility]; Protocol Last Admin: 03/20/23 08:35 Dose: 6 unit Ondansetron HCl (Ondansetron Hcl 4 Mg/2 Ml Vial) 4 mg IVPUSH Q8H PRN PRN Reason: Nausea and Vomiting Prednisone (Prednisone 20 Mg Tablet) 40 mg PO DAILY [facility] Last Admin: 03/20/23 08:36 Dose: 40 mg Rivaroxaban (Rivaroxaban 15 Mg Tablet) 15 mg PO DAILY@1700 [facility] Sacubitril/Valsartan (Sacubitril/Valsartan 97/103 1 Tab Tablet) 1 tab PO BID [facility]; Protocol Last Admin: 03/20/23 08:35 Dose: 1 tab Sodium Chloride (0.9 % Sodium Chloride Flush 3 Ml Syringe) 3 ml IVFLUSH QSHIFT [facility] Last Admin: 03/20/23 08:35 Dose: 3 ml Home Medications Medication Instructions Recorded Confirmed Last Taken Type atorvastatin 80 mg tablet 80 mg PO BEDTIME 02/27/20 03/20/23 03/18/23 20:00 History insulin aspart U-100 100 unit/mL 3 - 5 unit subcut TID 06/26/20 03/20/23 03/19/23 06:00 History (3 mL) subcutaneous pen citalopram 20 mg tablet 20 mg PO DAILY 07/21/20 03/20/23 03/19/23 06:00 History furosemide 40 mg tablet (Lasix) 80 mg PO BID@0800,1400 11/05/22 03/20/23 03/19/23 06:00 History insulin glargine 100 unit/mL (3 28 unit subcut BEDTIME 11/05/22 03/20/2323 20:00 History mL) subcutaneous pen (Lantus Solostar U-100 Insulin) rivaroxaban 20 mg tablet (Xarelto) 20 mg PO DAILY@1700 11/05/22 03/20/23 03/18/23 20:00 History empagliflozin 25 mg tablet 25 mg PO DAILY 03/20/23 03/20/23 03/19/23 06:00 History (Jardiance) Physical Exam 2 Vital Signs: Vital Signs: Last Vital Signs Temp 98.1 F 03/20/23 07:25 Pulse 78 03/20/23 07:25 Resp 18 03/20/23 07:25 BP 172/84 H 03/20/23 07:25 Pulse Ox 94 03/20/23 07:25 O2 Del Method Room Air 03/20/23 07:25 BMI result Body Mass Index 46.4 GENERAL APPEARANCE: Short of breath, wheezing. Morbidly obese. NECK: no carotid bruit, no significant jugular venous distention. SKIN: no suspicious lesions, warm and dry. HEART: no murmurs, regular rate and rhythm. LUNGS: Bilateral expiratory wheezes. ABDOMEN: soft, nontender. EXTREMITIES: no edema. PERIPHERAL PULSES: equal. NEUROLOGIC: No gross deficits, AAO X 3 Objective Labs and Meds 03/20/23 07:03 03/20/23 07:03 Lab results: Laboratory Results - last 24 hr 03/19/23 03/19/23 03/20/23 16:50 20:07 07:03 WBC 7.0 6.3 RBC 5.23 5.60 H Hgb 15.5 16.4 H Hct 47.6 H 50.9 H MCV 91.0 90.9 MCH 29.6 29.3 MCHC 32.6 32.2 RDW 16.3 H 16.5 H Plt Count 120 L 129 L MPV 11.6 12.1 Immature Gran % (Auto) 0.1 1.0 H Neut % (Auto) 58.5 72.0 Lymph % (Auto) 28.9 24.2 [place] % (Auto) 7.3 2.1 Eos % (Auto) 4.5 H 0.5 Baso % (Auto) 0.7 0.2 Lymph # (Auto) 2.0 1.5 [place] # (Auto) 0.5 0.1 Eos # (Auto) 0.3 0.0 Baso # (Auto) 0.1 0.0 Abs Immat Gran (auto) 0.01 0.06 H Absolute Neuts (auto) 4.1 4.5 Absolute Nucleated RBC 0.000 0.000 Nucleated RBC % (auto) 0.0 0.0 PT 11.3 INR 0.9 Sodium 141 140 Potassium 4.0 4.1 Chloride 106 108 Carbon Dioxide 28 22 Anion Gap 11 L 14 BUN 17 H 18 H Creatinine 1.38 1.25 Estim Creat Clear Calc 41.9 45.3 Estimated GFR 38 42 POC Glucose Random Glucose 218 H 288 H Calcium 8.7 D 9.2 Magnesium 2.2 Total Bilirubin 0.5 0.5 AST 20 19 ALT 14 13 Alkaline Phosphatase 113 105 Troponin I High Sens 453.7 H* 437.1 H* B-Natriuretic Peptide 444 H Total Protein 7.3 7.8 Albumin 3.9 4.1 Lipase 22 COVID-19 ([place]) Negative COVID-19 Clin Com See Note Influenza Type A ([place]) Negative Influenza Type B ([place]) Negative Influenza A & B Note See Note 03/20/23 08:11 WBC RBC Hgb Hct MCV MCH MCHC RDW Plt Count MPV Immature Gran % (Auto) Neut % (Auto) Lymph % (Auto) [place] % (Auto) Eos % (Auto) Baso % (Auto) Lymph # (Auto) [place] # (Auto) Eos # (Auto) Baso # (Auto) Abs Immat Gran (auto) Absolute Neuts (auto) Absolute Nucleated RBC Nucleated RBC % (auto) PT INR Sodium Potassium Chloride Carbon Dioxide Anion Gap BUN Creatinine Estim Creat Clear Calc Estimated GFR POC Glucose 278 H Random Glucose Calcium Magnesium Total Bilirubin AST ALT Alkaline Phosphatase Troponin I High Sens B-Natriuretic Peptide Total Protein Albumin Lipase COVID-19 ([place]) COVID-19 Clin Com Influenza Type A ([place]) Influenza Type B ([place]) Influenza A & B Note Imaging Radiologist's impression: Impressions Chest X-Ray 03/19/23 18:00 IMPRESSION: 1. Slightly increased interstitial opacities which may represent atypical/viral infection with superimposed right lower lobe consolidation suspicious for superimposed infection. Recommend follow-up radiographs to ensure resolution. Assessment and Plan (1) Community acquired pneumonia: Qualifiers: Laterality: right Lung location: lower lobe of lung Qualified Code(s): J18.9 - Pneumonia, unspecified organism Status: Acute (2) Chronic diastolic heart failure: Status: Acute Plan Pleasant 68 year female with chronic heart failure who is presenting with chills and wheezing. Clinically she is acting like bronchitis right now. Not volume overloaded or in florid heart failure. Would favor continuing same medications as she takes at home. Her blood pressure is elevated and adding amlodipine 5 mg once a day to her regimen. Continue steroids and antibiotics. Thank you for allowing me to participate in the care of your patient. Please feel free to contact me if you have any questions. Procedures Date of Service Date of Service: 03/20/23
[2023-03-20] MEDS: amLODIPine Besylate 5 MG TABLET PO (11:03)
[2023-03-20 11:53] LABS: Glucose, Whole Blood 256 mg/dL (60-115)
[2023-03-20 16:48] LABS: Glucose, Whole Blood 221 mg/dL (60-115)
[2023-03-20] MEDS: Rivaroxaban 15 MG TABLET PO (17:13)
[2023-03-20] MEDS: cefTRIAXone sodium 1 GM in 0.9 % Sodium Chloride 50 ML IV (20:22)
[2023-03-20] MEDS: Atorvastatin Calcium 80 MG TABLET PO (20:23)
[2023-03-20 20:39] LABS: Glucose, Whole Blood 316 mg/dL (60-115)
[2023-03-20] MEDS: Insulin Glargine,Hum.rec.anlog 100 UNIT/ML 10 ML VIAL 28 UNIT SUBCUT (21:15)
[2023-03-20] MEDS: Azithromycin 500 MG in 0.9 % Sodium Chloride 250 ML 125 MG IV (23:37)
[2023-03-21] VITALS (13 sets, daily range): BP systolic 82–177; BP diastolic 50–82; PULSE 62–83; RESP 18–20; TEMP 36.2–37; O2SAT 88–96
--- NOTE | 2023-03-21 04:42 | PC.NURSE ---
Addendum entered by Citlalli Mello RN 03/21/23 06:09: 0609- Provider notified about the increase in BUN and Creatinine of 34 and 1.45 this morning labs. Original Note: pt took off the CPAP at 0400am.
[2023-03-21 05:51] LABS: Hematocrit 51.8 % (37.0-47.0); Hemoglobin 16.8 g/dl (12.0-16.0); Mean Corpuscular HGB Conc 32.4 g/dl (31.0-35.0); Mean Corpuscular Hemoglobin 29.4 pg (27.0-33.0); Mean Corpuscular Volume 90.6 fL (80.0-98.0); Platelet Count 154 X10*3/uL (160-400); Red Blood Count 5.72 X10*6/uL (4.20-5.50); Red Cell Distribution Width 16.7 % (11.0-16.0); White Blood Count 14.6 X10*3/uL (4.8-10.8)
[2023-03-21 06:06] LABS: Anion Gap 17 (12-20); Blood Urea Nitrogen 34 mg/dL (9-16); Calcium 9.1 mg/dL (8.4-10.2); Carbon Dioxide 22 mmol/L (22-29); Chloride 106 mmol/L (96-108); Creatinine Clr Calc Pharmacy 39.1; Estimated Glomerular Filt Rate 36; Glucose Fasting 164 mg/dL (60-99); Potassium 3.6 mmol/L (3.3-5.1); Sodium 141 mmol/L (135-145)
[2023-03-21 07:45] LABS: Glucose, Whole Blood 160 mg/dL (60-115)
[2023-03-21] MEDS: Empagliflozin 25 MG TABLET PO (08:07)
[2023-03-21] MEDS: Escitalopram Oxalate 10 MG TABLET PO (08:07)
[2023-03-21] MEDS: amLODIPine Besylate 5 MG TABLET PO (08:07)
[2023-03-21] MEDS: carvediloL 25 MG TABLET PO ×2 (08:07→19:57)
[2023-03-21] MEDS: predniSONE 20 MG TABLET 40 MG PO (08:07)
[2023-03-21] MEDS: Furosemide 40 MG TABLET 80 MG PO ×2 (08:07→14:30)
[2023-03-21] MEDS: Insulin Lispro 100 UNIT/ML 3 ML VIAL SUBCUT ×4 (08:07→20:54)
[2023-03-21] MEDS: Sacubitril/Valsartan 97/103 1 TAB TABLET PO ×2 (08:07→19:57)
[2023-03-21] MEDS: guaiFENesin 200 MG/10 ML 10 ML LIQUID PO ×2 (08:07→19:57)
[2023-03-21] MEDS: Albuterol/Iprat 2.5/0.5MG 3 ML AMPUL.NEB INHALE ×2 (08:08→19:57)
[2023-03-21] MEDS: 0.9 % Sodium Chloride Flush 3 ML SYRINGE IVFLUSH ×3 (08:10→19:58)
--- NOTE | 2023-03-21 09:10 | HO.PM.IMPN ---
Subjective Subjective Date of Service: 03/21/23 Interval History: sob, cough Physical Exam Vital Signs: Vital Signs: Last Vital Signs Temp 97.9 F 03/21/23 07:18 Pulse 83 03/21/23 08:09 Resp 20 03/21/23 08:09 BP 139/59 L 03/21/23 07:18 Pulse Ox 89 L 03/21/23 07:18 O2 Del Method Room Air 03/21/23 07:18 BMI result Body Mass Index 46.4 GENERAL APPEARANCE: Short of breath, wheezing. Morbidly obese. NECK: no carotid bruit, no significant jugular venous distention. SKIN: no suspicious lesions, warm and dry. HEART: no murmurs, regular rate and rhythm. LUNGS: Bilateral expiratory wheezes. ABDOMEN: soft, nontender. EXTREMITIES: no edema. PERIPHERAL PULSES: equal. NEUROLOGIC: No gross deficits, AAO X 3 Objective Data Active Medications Acetaminophen (Acetaminophen 325 Mg Tablet) 650 mg PO Q6H PRN PRN Reason: Pain, Mild (Pain Scale 1-3) Albuterol/Ipratropium (Albuterol/Iprat 2.5/0.5mg 3 Ml Ampul.Neb) 3 ml INHALE RQ4H WHILE AWAKE PRN PRN Reason: Sob Last Admin: 03/21/23 08:08 Dose: 3 ml Documented By: MARGARETH Amlodipine Besylate (Amlodipine Besylate 5 Mg Tablet) 5 mg PO DAILY [facility]; Protocol Last Admin: 03/21/23 08:07 Dose: 5 mg Documented By: LARON Atorvastatin Calcium (Atorvastatin Calcium 80 Mg Tablet) 80 mg PO BEDTIME [facility] Last Admin: 03/20/23 20:23 Dose: 80 mg Documented By: EAVN Carvedilol (Carvedilol 25 Mg Tablet) 25 mg PO BID [facility]; Protocol Last Admin: 03/21/23 08:07 Dose: 25 mg Documented By: LARON Dextrose (Dextrose 50 % 25 Gm/50 Ml Syringe) 25 gm IVPUSH Q15M PRN; Protocol PRN Reason: per Hypoglycemia Standing Ord. Docusate Sodium (Docusate Sodium 100 Mg Capsule) 100 mg PO DAILY PRN PRN Reason: Constipation Empagliflozin (Empagliflozin 25 Mg Tablet) 25 mg PO DAILY [facility] Last Admin: 03/21/23 08:07 Dose: 25 mg Documented By: LARON Escitalopram Oxalate (Escitalopram Oxalate 10 Mg Tablet) 10 mg PO DAILY [facility] Last Admin: 03/21/23 08:07 Dose: 10 mg Documented By: LARON Furosemide (Furosemide 40 Mg Tablet) 80 mg PO BID@0800,1400 [facility]; Protocol Last Admin: 03/21/23 08:07 Dose: 80 mg Documented By: LARON Glucose (Glucose Gel 15 Gm Gel..Gram.) 15 gm PO Q15M PRN; Protocol PRN Reason: per Hypoglycemia Standing Ord. Guaifenesin (Guaifenesin 200 Mg/10 Ml 10 Ml Liquid) 10 ml PO Q4H PRN PRN Reason: Cough Last Admin: 03/21/23 08:07 Dose: 10 ml Documented By: LARON Ceftriaxone Sodium 1 gm/ (Sodium Chloride) 50 mls @ 100 mls/hr IV Q24H [facility] Last Infusion: 03/20/23 21:08 Dose: Infused Documented By: EVAN Azithromycin 500 mg/ Sodium (Chloride) 250 mls @ 125 mls/hr IV Q24H [facility] Last Infusion: 03/21/23 01:40 Dose: Infused Documented By: EVAN Insulin Glargine (Insulin Glargine,Hum.Rec.Anlog 100 Unit/Ml 10 Ml Vial) 28 unit SUBCUT BEDTIME [facility] Last Admin: 03/20/23 21:15 Dose: 28 unit Documented By: EVAN Insulin Human Lispro (Insulin Lispro 100 Unit/Ml 3 Ml Vial) 0 unit SUBCUT QIDACHS [facility]; Protocol Last Admin: 03/21/23 08:07 Dose: 2 unit Documented By: LARON Ondansetron HCl (Ondansetron Hcl 4 Mg/2 Ml Vial) 4 mg IVPUSH Q8H PRN PRN Reason: Nausea and Vomiting Prednisone (Prednisone 20 Mg Tablet) 40 mg PO DAILY [facility] Last Admin: 03/21/23 08:07 Dose: 40 mg Documented By: LARON Rivaroxaban (Rivaroxaban 15 Mg Tablet) 15 mg PO DAILY@1700 [facility] Last Admin: 03/20/23 17:13 Dose: 15 mg Documented By: WOOD Sacubitril/Valsartan (Sacubitril/Valsartan 97/103 1 Tab Tablet) 1 tab PO BID [facility]; Protocol Last Admin: 03/21/23 08:07 Dose: 1 tab Documented By: LARON Sodium Chloride (0.9 % Sodium Chloride Flush 3 Ml Syringe) 3 ml IVFLUSH QSHIFT [facility] Last Admin: 03/21/23 08:10 Dose: 3 ml Documented By: LARON Labs 03/21/23 05:24 03/21/23 05:24 Labs: Laboratory Results - last 24 hr 03/20/23 03/20/23 03/20/23 11:02 16:44 19:50 MCV MCH MCHC RDW Plt Count MPV Absolute Nucleated RBC Nucleated RBC % (auto) Anion Gap Estim Creat Clear Calc Estimated GFR POC Glucose 256 H 221 H 316 H Fasting Glucose Calcium 03/21/23 03/21/23 05:24 07:19 MCV 90.6 MCH 29.4 MCHC 32.4 RDW 16.7 H Plt Count 154 L MPV 12.0 Absolute Nucleated RBC 0.000 Nucleated RBC % (auto) 0.0 Anion Gap 17 Estim Creat Clear Calc 39.1 Estimated GFR 36 POC Glucose 160 H Fasting Glucose 164 H Calcium 9.1 Assessment and Plan (1) Community acquired pneumonia: Status: Acute Plan 68F PMH mixed nonischemic / ischemic cardiomyopathy, TAQUERIA, restrictive lung disease, CAD, biventricular ICD, HDL, HTN, mild intermittent asthma, diabetes presented with shortness of breath. mild intermittent asthma with acute decompensation due to atypical pneumonia rocephin, azithro, steroids, nebs elevated troponin flat, not due to acs DM insulin ischemic/non ischemic cardiomyopathy euvolemic, continue entresto, jardiance, lasix, coreg morbid obesity wegiht loss dvt prophylaxis - on xarelto full code reason for continued hospitalization:sob on minimal exertion Quality Stroke Does the patient have a stroke diagnosis?: No VTE Prior VTE?: No VTE Risk Level:: Medical - moderate - high VTE Device Contraindication: Treatment Not Indicated VTE Drug Contraindication: N/A - Med Ordered
[2023-03-21 11:42] LABS: Glucose, Whole Blood 178 mg/dL (60-115)
[2023-03-21 15:57] LABS: Glucose, Whole Blood 276 mg/dL (60-115)
[2023-03-21] MEDS: Rivaroxaban 15 MG TABLET PO (17:20)
--- NOTE | 2023-03-21 19:06 | PC.NURSE ---
Pt had 5 beat Vtach at approx 1705. Asymptomatic per pt Dr Mack notified.
[2023-03-21] MEDS: Atorvastatin Calcium 80 MG TABLET PO (19:57)
[2023-03-21] MEDS: Acetaminophen 325 MG TABLET 650 MG PO (19:57)
[2023-03-21] MEDS: cefTRIAXone sodium 1 GM in 0.9 % Sodium Chloride 50 ML IV (19:58)
[2023-03-21 20:46] LABS: Glucose, Whole Blood 214 mg/dL (60-115)
[2023-03-21] MEDS: Insulin Glargine,Hum.rec.anlog 100 UNIT/ML 10 ML VIAL 28 UNIT SUBCUT (20:54)
[2023-03-21] MEDS: Azithromycin 500 MG in 0.9 % Sodium Chloride 250 ML 125 MG IV (22:38)
[2023-03-22] VITALS (11 sets, daily range): BP systolic 98–136; BP diastolic 59–72; PULSE 58–74; RESP 18–20; TEMP 36.1–36.6; O2SAT 94–98
[2023-03-22] MEDS: Lactated Ringers 500 ML 999 ML IV (00:09)
--- NOTE | 2023-03-22 02:34 | MHC.EVENTN ---
At approx 2340 pt SBP down to the 80s. Manual BPs checked in both arms. Pt denies lightheadedness or dizziness, MD notified. 500ml LR Bolus ordered and infused with improvement. SBP up to the 100s.
[2023-03-22] MEDS: Acetaminophen 325 MG TABLET 650 MG PO ×3 (05:46→21:17)
[2023-03-22] MEDS: guaiFENesin 200 MG/10 ML 10 ML LIQUID PO ×3 (05:46→21:17)
[2023-03-22] MEDS: Albuterol/Iprat 2.5/0.5MG 3 ML AMPUL.NEB INHALE ×3 (05:57→20:25)
[2023-03-22 06:43] LABS: Hematocrit 52.6 % (37.0-47.0); Mean Corpuscular HGB Conc 32.3 g/dl (31.0-35.0); Mean Corpuscular Hemoglobin 29.6 pg (27.0-33.0); Mean Corpuscular Volume 91.5 fL (80.0-98.0); Mean Platelet Volume 12.6 fL (9.4-12.3); Platelet Count 151 X10*3/uL (160-400); Red Blood Count 5.75 X10*6/uL (4.20-5.50); Red Cell Distribution Width 17.2 % (11.0-16.0); White Blood Count 11.7 X10*3/uL (4.8-10.8)
[2023-03-22 06:44] LABS: Anion Gap 14 (12-20); Blood Urea Nitrogen 39 mg/dL (9-16); Calcium 8.5 mg/dL (8.4-10.2); Carbon Dioxide 27 mmol/L (22-29); Chloride 103 mmol/L (96-108); Creatinine Clr Calc Pharmacy 39.9; Estimated Glomerular Filt Rate 37; Glucose Fasting 90 mg/dL (60-99); Potassium 3.4 mmol/L (3.3-5.1); Sodium 141 mmol/L (135-145)
[2023-03-22 07:41] LABS: Glucose, Whole Blood 102 mg/dL (60-115)
[2023-03-22] MEDS: Sacubitril/Valsartan 97/103 1 TAB TABLET PO ×2 (08:20→21:17)
[2023-03-22] MEDS: carvediloL 25 MG TABLET PO ×2 (08:20→21:17)
[2023-03-22] MEDS: Escitalopram Oxalate 10 MG TABLET PO (08:20)
[2023-03-22] MEDS: Empagliflozin 25 MG TABLET PO (08:20)
[2023-03-22] MEDS: Furosemide 40 MG TABLET 80 MG PO ×2 (08:20→14:57)
[2023-03-22] MEDS: amLODIPine Besylate 5 MG TABLET PO (08:20)
[2023-03-22] MEDS: predniSONE 20 MG TABLET 40 MG PO (08:20)
[2023-03-22] MEDS: 0.9 % Sodium Chloride Flush 3 ML SYRINGE IVFLUSH ×3 (08:21→21:17)
--- NOTE | 2023-03-22 09:18 | P.PNIM_ITS ---
Subjective Subjective Date of Service: 03/22/23 Interval History: sob, cough Physical Exam 2 Vital Signs: Vital Signs: Last Vital Signs Temp 97.5 F 03/22/23 07:15 Pulse 61 03/22/23 07:15 Resp 18 03/22/23 05:58 BP 136/72 03/22/23 07:15 Pulse Ox 96 03/22/23 07:15 O2 Del Method Room Air 03/22/23 07:15 BMI result Body Mass Index 46.4 GENERAL APPEARANCE: Short of breath, wheezing. Morbidly obese. NECK: no carotid bruit, no significant jugular venous distention. SKIN: no suspicious lesions, warm and dry. HEART: no murmurs, regular rate and rhythm. LUNGS: Bilateral expiratory wheezes. ABDOMEN: soft, nontender. EXTREMITIES: no edema. PERIPHERAL PULSES: equal. NEUROLOGIC: No gross deficits, AAO X 3 Objective Data Active Medications Acetaminophen (Acetaminophen 325 Mg Tablet) 650 mg PO Q6H PRN PRN Reason: Pain, Mild (Pain Scale 1-3) Last Admin: 03/22/23 05:46 Dose: 650 mg Documented By: WINTER Albuterol/Ipratropium (Albuterol/Iprat 2.5/0.5mg 3 Ml Ampul.Neb) 3 ml INHALE RQ4H WHILE AWAKE PRN PRN Reason: Sob Last Admin: 03/22/23 05:57 Dose: 3 ml Documented By: YELITZA Amlodipine Besylate (Amlodipine Besylate 5 Mg Tablet) 5 mg PO DAILY [facility]; Protocol Last Admin: 03/22/23 08:20 Dose: 5 mg Documented By: LARON Atorvastatin Calcium (Atorvastatin Calcium 80 Mg Tablet) 80 mg PO BEDTIME [facility] Last Admin: 03/21/23 19:57 Dose: 80 mg Documented By: WINTER Carvedilol (Carvedilol 25 Mg Tablet) 25 mg PO BID [facility]; Protocol Last Admin: 03/22/23 08:20 Dose: 25 mg Documented By: LARON Dextrose (Dextrose 50 % 25 Gm/50 Ml Syringe) 25 gm IVPUSH Q15M PRN; Protocol PRN Reason: per Hypoglycemia Standing Ord. Docusate Sodium (Docusate Sodium 100 Mg Capsule) 100 mg PO DAILY PRN PRN Reason: Constipation Empagliflozin (Empagliflozin 25 Mg Tablet) 25 mg PO DAILY [facility] Last Admin: 03/22/23 08:20 Dose: 25 mg Documented By: LARON Escitalopram Oxalate (Escitalopram Oxalate 10 Mg Tablet) 10 mg PO DAILY [facility] Last Admin: 03/22/23 08:20 Dose: 10 mg Documented By: LARON Furosemide (Furosemide 40 Mg Tablet) 80 mg PO BID@0800,1400 [facility]; Protocol Last Admin: 03/22/23 08:20 Dose: 80 mg Documented By: LARON Glucose (Glucose Gel 15 Gm Gel..Gram.) 15 gm PO Q15M PRN; Protocol PRN Reason: per Hypoglycemia Standing Ord. Guaifenesin (Guaifenesin 200 Mg/10 Ml 10 Ml Liquid) 10 ml PO Q4H PRN PRN Reason: Cough Last Admin: 03/22/23 05:46 Dose: 10 ml Documented By: WINTER Ceftriaxone Sodium 1 gm/ (Sodium Chloride) 50 mls @ 100 mls/hr IV Q24H [facility] Last Infusion: 03/21/23 20:36 Dose: Infused Documented By: WINTER Azithromycin 500 mg/ Sodium (Chloride) 250 mls @ 125 mls/hr IV Q24H [facility] Last Infusion: 03/22/23 00:43 Dose: Infused Documented By: WINTER Insulin Glargine (Insulin Glargine,Hum.Rec.Anlog 100 Unit/Ml 10 Ml Vial) 28 unit SUBCUT BEDTIME [facility] Last Admin: 03/21/23 20:54 Dose: 28 unit Documented By: WINTER Insulin Human Lispro (Insulin Lispro 100 Unit/Ml 3 Ml Vial) 0 unit SUBCUT QIDACHS [facility]; Protocol Last Admin: 03/22/23 07:43 Dose: Not Given Documented By: LARON Non-Admin Reason: No Insulin Coverage Ondansetron HCl (Ondansetron Hcl 4 Mg/2 Ml Vial) 4 mg IVPUSH Q8H PRN PRN Reason: Nausea and Vomiting Prednisone (Prednisone 20 Mg Tablet) 40 mg PO DAILY [facility] Last Admin: 03/22/23 08:20 Dose: 40 mg Documented By: LARON Rivaroxaban (Rivaroxaban 15 Mg Tablet) 15 mg PO DAILY@1700 [facility] Last Admin: 03/21/23 17:20 Dose: 15 mg Documented By: LARON Sacubitril/Valsartan (Sacubitril/Valsartan 97/103 1 Tab Tablet) 1 tab PO BID [facility]; Protocol Last Admin: 03/22/23 08:20 Dose: 1 tab Documented By: LARON Sodium Chloride (0.9 % Sodium Chloride Flush 3 Ml Syringe) 3 ml IVFLUSH QSHIFT [facility] Last Admin: 03/22/23 08:21 Dose: 3 ml Documented By: LARON Labs 03/22/23 06:15 03/22/23 06:15 Labs: Laboratory Results - last 24 hr 03/21/23 03/21/23 03/21/23 11:11 15:11 20:21 MCV MCH MCHC RDW Plt Count MPV Absolute Nucleated RBC Nucleated RBC % (auto) Anion Gap Estim Creat Clear Calc Estimated GFR POC Glucose 178 H 276 H 214 H Fasting Glucose Calcium 03/22/23 03/22/23 06:15 07:37 MCV 91.5 MCH 29.6 MCHC 32.3 RDW 17.2 H Plt Count 151 L MPV 12.6 H Absolute Nucleated RBC 0.000 Nucleated RBC % (auto) 0.0 Anion Gap 14 Estim Creat Clear Calc 39.9 Estimated GFR 37 POC Glucose 102 Fasting Glucose 90 Calcium 8.5 D Assessment and Plan (1) Community acquired pneumonia: Status: Acute Plan 68F PMH mixed nonischemic / ischemic cardiomyopathy, [place], restrictive lung disease, CAD, biventricular ICD, HDL, HTN, mild intermittent asthma, diabetes presented with shortness of breath. mild intermittent asthma with acute decompensation due to atypical pneumonia still sob and wheezing, continue rocephin, azithro, steroids, nebs elevated troponin flat, not due to acs DM insulin ischemic/non ischemic cardiomyopathy euvolemic, continue entresto, jardiance, lasix, coreg morbid obesity wegiht loss dvt prophylaxis - on xarelto full code reason for continued hospitalization:sob on minimal exertion Quality Stroke Does the patient have a stroke diagnosis?: No VTE Prior VTE?: No VTE Risk Level:: Medical - moderate - high VTE Device Contraindication: Treatment Not Indicated VTE Drug Contraindication: N/A - Med Ordered
[2023-03-22 11:27] LABS: Glucose, Whole Blood 193 mg/dL (60-115)
[2023-03-22] MEDS: Insulin Lispro 100 UNIT/ML 3 ML VIAL SUBCUT ×3 (11:42→21:16)
[2023-03-22 16:42] LABS: Glucose, Whole Blood 224 mg/dL (60-115)
[2023-03-22] MEDS: Rivaroxaban 15 MG TABLET PO (16:51)
[2023-03-22 21:04] LABS: Glucose, Whole Blood 250 mg/dL (60-115)
[2023-03-22] MEDS: Insulin Glargine,Hum.rec.anlog 100 UNIT/ML 10 ML VIAL 28 UNIT SUBCUT (21:16)
[2023-03-22] MEDS: Atorvastatin Calcium 80 MG TABLET PO (21:17)
[2023-03-22] MEDS: cefTRIAXone sodium 1 GM in 0.9 % Sodium Chloride 50 ML IV (21:17)
[2023-03-22] MEDS: Azithromycin 500 MG in 0.9 % Sodium Chloride 250 ML 125 MG IV (22:31)
[2023-03-23] VITALS (7 sets, daily range): BP systolic 95–123; BP diastolic 51–75; PULSE 62–72; RESP 18–20; TEMP 36.1–36.6; O2SAT 92–95
[2023-03-23 07:30] LABS: Glucose, Whole Blood 87 mg/dL (60-115)
[2023-03-23 07:33] LABS: Hematocrit 52.3 % (37.0-47.0); Mean Corpuscular HGB Conc 32.5 g/dl (31.0-35.0); Mean Corpuscular Hemoglobin 29.2 pg (27.0-33.0); Mean Corpuscular Volume 89.9 fL (80.0-98.0); Platelet Count 143 X10*3/uL (160-400); Red Blood Count 5.82 X10*6/uL (4.20-5.50); Red Cell Distribution Width 16.8 % (11.0-16.0); White Blood Count 11.2 X10*3/uL (4.8-10.8)
[2023-03-23 07:45] LABS: Anion Gap 15 (12-20); Blood Urea Nitrogen 41 mg/dL (9-16); Calcium 8.6 mg/dL (8.4-10.2); Carbon Dioxide 28 mmol/L (22-29); Chloride 103 mmol/L (96-108); Creatinine Clr Calc Pharmacy 42.9; Estimated Glomerular Filt Rate 40; Glucose Fasting 86 mg/dL (60-99); Potassium 3.5 mmol/L (3.3-5.1); Sodium 142 mmol/L (135-145)
[2023-03-23] MEDS: predniSONE 20 MG TABLET 40 MG PO (08:04)
[2023-03-23] MEDS: Acetaminophen 325 MG TABLET 650 MG PO ×3 (08:04→20:35)
[2023-03-23] MEDS: Sacubitril/Valsartan 97/103 1 TAB TABLET PO (08:04)
[2023-03-23] MEDS: Furosemide 40 MG TABLET 80 MG PO ×2 (08:04→15:04)
[2023-03-23] MEDS: amLODIPine Besylate 2.5 MG TABLET PO (08:04)
[2023-03-23] MEDS: Escitalopram Oxalate 10 MG TABLET PO (08:05)
[2023-03-23] MEDS: guaiFENesin 200 MG/10 ML 10 ML LIQUID PO ×3 (08:05→20:35)
[2023-03-23] MEDS: carvediloL 25 MG TABLET PO ×2 (08:05→20:39)
[2023-03-23] MEDS: Empagliflozin 25 MG TABLET PO (08:05)
[2023-03-23] MEDS: 0.9 % Sodium Chloride Flush 3 ML SYRINGE IVFLUSH ×3 (08:07→20:36)
--- NOTE | 2023-03-23 10:54 | HO.PM.IMPN ---
Subjective Subjective Date of Service: 03/23/23 Interval History: sob 40% better Physical Exam Vital Signs: Vital Signs: Last Vital Signs Temp 97.1 F 03/23/23 07:14 Pulse 63 03/23/23 07:14 Resp 20 03/23/23 07:14 BP 123/66 03/23/23 07:14 Pulse Ox 93 03/23/23 07:14 O2 Del Method Room Air 03/23/23 07:14 BMI result Body Mass Index 46.4 GENERAL APPEARANCE: Short of breath, wheezing. Morbidly obese. NECK: no carotid bruit, no significant jugular venous distention. SKIN: no suspicious lesions, warm and dry. HEART: no murmurs, regular rate and rhythm. LUNGS: Bilateral expiratory wheezes. ABDOMEN: soft, nontender. EXTREMITIES: no edema. PERIPHERAL PULSES: equal. NEUROLOGIC: No gross deficits, AAO X 3 Objective Data Active Medications Acetaminophen (Acetaminophen 325 Mg Tablet) 650 mg PO Q6H PRN PRN Reason: Pain, Mild (Pain Scale 1-3) Last Admin: 03/23/23 08:04 Dose: 650 mg Documented By: LARON Albuterol/Ipratropium (Albuterol/Iprat 2.5/0.5mg 3 Ml Ampul.Neb) 3 ml INHALE RQ4H WHILE AWAKE PRN PRN Reason: Sob Last Admin: 03/22/23 20:25 Dose: 3 ml Documented By: BEATRICE Amlodipine Besylate (Amlodipine Besylate 2.5 Mg Tablet) 2.5 mg PO DAILY [facility]; Protocol Last Admin: 03/23/23 08:04 Dose: 2.5 mg Documented By: LARON Atorvastatin Calcium (Atorvastatin Calcium 80 Mg Tablet) 80 mg PO BEDTIME [facility] Last Admin: 03/22/23 21:17 Dose: 80 mg Documented By: WINTER Carvedilol (Carvedilol 25 Mg Tablet) 25 mg PO BID [facility]; Protocol Last Admin: 03/23/23 08:05 Dose: 25 mg Documented By: LARON Dextrose (Dextrose 50 % 25 Gm/50 Ml Syringe) 25 gm IVPUSH Q15M PRN; Protocol PRN Reason: per Hypoglycemia Standing Ord. Docusate Sodium (Docusate Sodium 100 Mg Capsule) 100 mg PO DAILY PRN PRN Reason: Constipation Empagliflozin (Empagliflozin 25 Mg Tablet) 25 mg PO DAILY [facility] Last Admin: 03/23/23 08:05 Dose: 25 mg Documented By: LARON Escitalopram Oxalate (Escitalopram Oxalate 10 Mg Tablet) 10 mg PO DAILY [facility] Last Admin: 03/23/23 08:05 Dose: 10 mg Documented By: LARON Furosemide (Furosemide 40 Mg Tablet) 80 mg PO BID@0800,1400 [facility]; Protocol Last Admin: 03/23/23 08:04 Dose: 80 mg Documented By: LARON Glucose (Glucose Gel 15 Gm Gel..Gram.) 15 gm PO Q15M PRN; Protocol PRN Reason: per Hypoglycemia Standing Ord. Guaifenesin (Guaifenesin 200 Mg/10 Ml 10 Ml Liquid) 10 ml PO Q4H PRN PRN Reason: Cough Last Admin: 03/23/23 08:05 Dose: 10 ml Documented By: LARON Ceftriaxone Sodium 1 gm/ (Sodium Chloride) 50 mls @ 100 mls/hr IV Q24H [facility] Last Infusion: 03/22/23 21:55 Dose: Infused Documented By: WINTER Azithromycin 500 mg/ Sodium (Chloride) 250 mls @ 125 mls/hr IV Q24H [facility] Last Infusion: 03/23/23 00:35 Dose: Infused Documented By: WINTER Insulin Glargine (Insulin Glargine,Hum.Rec.Anlog 100 Unit/Ml 10 Ml Vial) 28 unit SUBCUT BEDTIME [facility] Last Admin: 03/22/23 21:16 Dose: 28 unit Documented By: WINTER Insulin Human Lispro (Insulin Lispro 100 Unit/Ml 3 Ml Vial) 0 unit SUBCUT QIDACHS [facility]; Protocol Last Admin: 03/23/23 07:59 Dose: Not Given Documented By: LARON Non-Admin Reason: No Insulin Coverage Ondansetron HCl (Ondansetron Hcl 4 Mg/2 Ml Vial) 4 mg IVPUSH Q8H PRN PRN Reason: Nausea and Vomiting Prednisone (Prednisone 20 Mg Tablet) 40 mg PO DAILY [facility] Last Admin: 03/23/23 08:04 Dose: 40 mg Documented By: LARON Rivaroxaban (Rivaroxaban 15 Mg Tablet) 15 mg PO DAILY@1700 [facility] Last Admin: 03/22/23 16:51 Dose: 15 mg Documented By: LARON Sacubitril/Valsartan (Sacubitril/Valsartan 97/103 1 Tab Tablet) 1 tab PO BID [facility]; Protocol Last Admin: 03/23/23 08:04 Dose: 1 tab Documented By: LARON Sodium Chloride (0.9 % Sodium Chloride Flush 3 Ml Syringe) 3 ml IVFLUSH QSHIFT [facility] Last Admin: 03/23/23 08:07 Dose: 3 ml Documented By: LARON Labs 03/23/23 07:13 03/23/23 07:13 Labs: Laboratory Results - last 24 hr 03/22/23 03/22/23 03/22/23 11:24 16:21 20:10 MCV MCH MCHC RDW Plt Count MPV Absolute Nucleated RBC Nucleated RBC % (auto) Anion Gap Estim Creat Clear Calc Estimated GFR POC Glucose 193 H 224 H 250 H Fasting Glucose Calcium 03/23/23 03/23/23 07:13 07:16 MCV 89.9 MCH 29.2 MCHC 32.5 RDW 16.8 H Plt Count 143 L MPV 12.0 Absolute Nucleated RBC 0.000 Nucleated RBC % (auto) 0.0 Anion Gap 15 Estim Creat Clear Calc 42.9 Estimated GFR 40 POC Glucose 87 Fasting Glucose 86 Calcium 8.6 Assessment and Plan (1) Community acquired pneumonia: Status: Acute Plan 68F PMH mixed nonischemic / ischemic cardiomyopathy, TAQUERIA, restrictive lung disease, CAD, biventricular ICD, HDL, HTN, mild intermittent asthma, diabetes presented with shortness of breath. mild intermittent asthma with acute decompensation due to atypical pneumonia still sob and wheezing, continue rocephin, azithro, steroids, nebs elevated troponin flat, not due to acs DM insulin ischemic/non ischemic cardiomyopathy euvolemic, continue entresto, jardiance, lasix, coreg morbid obesity wegiht loss dvt prophylaxis - on xarelto full code reason for continued hospitalization:sob on minimal exertion Quality Stroke Does the patient have a stroke diagnosis?: No VTE Prior VTE?: No VTE Risk Level:: Medical - moderate - high VTE Device Contraindication: Treatment Not Indicated VTE Drug Contraindication: N/A - Med Ordered
[2023-03-23 11:43] LABS: Glucose, Whole Blood 232 mg/dL (60-115)
[2023-03-23] MEDS: Insulin Lispro 100 UNIT/ML 3 ML VIAL SUBCUT ×3 (12:46→21:32)
[2023-03-23 16:16] LABS: Glucose, Whole Blood 322 mg/dL (60-115)
[2023-03-23] MEDS: Rivaroxaban 15 MG TABLET PO (17:05)
[2023-03-23] MEDS: Albuterol/Iprat 2.5/0.5MG 3 ML AMPUL.NEB INHALE ×2 (18:23→22:37)
[2023-03-23] MEDS: Insulin Glargine,Hum.rec.anlog 100 UNIT/ML 10 ML VIAL 28 UNIT SUBCUT (20:35)
[2023-03-23] MEDS: Atorvastatin Calcium 80 MG TABLET PO (20:35)
[2023-03-23] MEDS: cefTRIAXone sodium 1 GM in 0.9 % Sodium Chloride 50 ML IV (20:35)
[2023-03-23 21:32] LABS: Glucose, Whole Blood 202 mg/dL (60-115)
[2023-03-23] MEDS: Azithromycin 500 MG in 0.9 % Sodium Chloride 250 ML 125 MG IV (23:13)
[2023-03-24] VITALS: BP 88/53; PULSE 63; RESP 20; TEMP 36.2; O2SAT 96
[2023-03-24 00:19] VITALS: BP 92/58
[2023-03-24 04:00] VITALS: BP 113/56; PULSE 60; RESP 20; TEMP 36.3; O2SAT 93
[2023-03-24 07:13] LABS: Glucose, Whole Blood 60 mg/dL (60-115)
[2023-03-24 07:23] LABS: Hematocrit 49.6 % (37.0-47.0); Hemoglobin 16.5 g/dl (12.0-16.0); Mean Corpuscular HGB Conc 33.3 g/dl (31.0-35.0); Mean Corpuscular Hemoglobin 30.1 pg (27.0-33.0); Mean Corpuscular Volume 90.3 fL (80.0-98.0); Mean Platelet Volume 12.2 fL (9.4-12.3); Platelet Count 145 X10*3/uL (160-400); Red Blood Count 5.49 X10*6/uL (4.20-5.50); Red Cell Distribution Width 16.5 % (11.0-16.0); White Blood Count 11.6 X10*3/uL (4.8-10.8)
[2023-03-24 07:24] VITALS: BP 130/62; PULSE 62; RESP 18; TEMP 36.2; O2SAT 93
[2023-03-24 07:43] LABS: Anion Gap 14 (12-20); Blood Urea Nitrogen 46 mg/dL (9-16); Calcium 8.3 mg/dL (8.4-10.2); Carbon Dioxide 29 mmol/L (22-29); Chloride 102 mmol/L (96-108); Creatinine Clr Calc Pharmacy 40.2; Estimated Glomerular Filt Rate 37; Glucose Fasting 61 mg/dL (60-99); Magnesium 2.6 mg/dL (1.6-2.6); Potassium 3.1 mmol/L (3.3-5.1); Sodium 142 mmol/L (135-145)
[2023-03-24] MEDS: Escitalopram Oxalate 10 MG TABLET PO (08:54)
[2023-03-24] MEDS: Furosemide 40 MG TABLET 80 MG PO (08:54)
[2023-03-24] MEDS: Empagliflozin 25 MG TABLET PO (08:55)
[2023-03-24] MEDS: carvediloL 25 MG TABLET PO (08:55)
[2023-03-24] MEDS: Sacubitril/Valsartan 97/103 1 TAB TABLET PO (08:55)
[2023-03-24] MEDS: predniSONE 20 MG TABLET 40 MG PO (08:55)
[2023-03-24] MEDS: amLODIPine Besylate 2.5 MG TABLET PO (08:55)
--- NOTE | 2023-03-24 08:58 | PC.NURSE ---
MD informed of pt's POC and K this AM along w/ resp status.
[2023-03-24 09:29] LABS: Glucose, Whole Blood 199 mg/dL (60-115)
[2023-03-24] MEDS: Potassium Chloride ER 20 MEQ TAB.ER.PRT 40 MEQ PO (09:35)
[2023-03-24] MEDS: Albuterol/Iprat 2.5/0.5MG 3 ML AMPUL.NEB INHALE (09:54)
--- NOTE | 2023-03-24 09:55 | P.DS_ITS ---
DS: Providers Provider Date of Service: 03/24/23 Date of admission: 03/19/23 22:53 Primary care physician: Carmina Martins MD Consults: 03/20/23 07:20 Consult to Cardiology Routine Consulting Provider: [facility] Reason for consultation: sob, cardiomyopathy with cardiomems device DS: Diagnosis Discharge Diagnosis (1) Community acquired pneumonia: Status: Acute DS: Summary Hospital Course Hospital Course: from initial hpi: 68-year-old female with extensive past medical history that includes diabetes, HTN, CAD, presence of biventricular ICD, TAQUERIA on CPAP at bedtime, restrictive lung disease, aortic stenosis, cardiomyopathy mixed ischemic and nonischemic, comes into the hospital with complaints of shortness of breath x2 days. Patient reports that she initially started having a cough about 3 days ago, went to her daughter's house to prepare for Thanksgiving then developed chills and was not feeling well overall, the cough was productive, but then yesterday she started developing shortness of breath and having difficulty catching her breath decided to come to the hospital. Denies any chest pain, no abdominal pain, no nausea or vomiting, no diarrhea constipation, no urinary symptoms and no lower extremity edema. No sick contacts recently no recent travel. On arrival to the ED patient hemodynamically stable Labs are significant for WBC count of 7.0, BUN of 17, creatinine of 1.38 which is around her baseline, initial troponin of 453 decreased to 437 , BNP of 444, Chest x-ray shows slightly increased interstitial opacities which may represent atypical viral infection with superimposed right lower lobe consolidation suspicious for superimposed infection patient will be admitted for further management hospital course: Patient was admitted for mild intermittent asthma with acute decompensation due to atypical pneumonia. She was treated with ceftriaxone, azithromycin, steroids, bronchodilators. She remained on room air. At time of discharge she is still fairly wheezy but is feeling significantly better in ambulating without shortness of breath. She will continue 5 more days of prednisone and cefuroxime. She was noted to have elevated troponin that was flat, not due to acute coronary syndrome. For diabetes she was continue insulin. For history of ischemic and nonischemic cardiomyopathy she remained euvolemic and was continued on Entresto, Jardiance, maintenance Lasix, carvedilol. From morbid obesity weight loss is recommended. for acute hypokalemia she received repalcement. Patient is feeling better will be discharged home. Time Attestation Discharge coordination time: Greater than 30 minutes Quality: Safe Use of Opioids Does Pt have an Active Cancer Diagnosis on the Problem List?: No Quality: Stroke Does the patient have a stroke diagnosis?: No Physical Exam Vital Signs: Vital Signs: Last Vital Signs Temp 97.2 F 03/24/23 07:24 Pulse 62 03/24/23 07:24 Resp 18 03/24/23 07:24 BP 130/62 03/24/23 07:24 Pulse Ox 93 03/24/23 07:24 O2 Del Method Room Air 03/24/23 07:24 BMI result Body Mass Index 46.4 General: AO X 3, no acute distress Resp: some exp wheezes bilateral, no accessory muscles used CVS: S1,S2,RRR GI: soft, non tender, non distended Neuro: motor grossly intact, alert Psych: appropriate affect, appropriate insight DS: Data Data Completed and Pending Labs on day of discharge: Laboratory Results - last 24 hr 03/23/23 03/23/23 03/23/23 11:39 16:09 21:29 WBC RBC Hgb Hct MCV MCH MCHC RDW Plt Count MPV Absolute Nucleated RBC Nucleated RBC % (auto) Sodium Potassium Chloride Carbon Dioxide Anion Gap BUN Creatinine Estim Creat Clear Calc Estimated GFR POC Glucose 232 H 322 H 202 H Fasting Glucose Calcium Magnesium 03/24/23 03/24/23 03/24/23 06:39 07:02 09:26 WBC 11.6 H RBC 5.49 Hgb 16.5 H Hct 49.6 H MCV 90.3 MCH 30.1 MCHC 33.3 RDW 16.5 H Plt Count 145 L MPV 12.2 Absolute Nucleated RBC 0.000 Nucleated RBC % (auto) 0.0 Sodium 142 Potassium 3.1 L Chloride 102 Carbon Dioxide 29 Anion Gap 14 BUN 46 H Creatinine 1.41 H Estim Creat Clear Calc 40.2 Estimated GFR 37 POC Glucose 60 199 H Fasting Glucose 61 Calcium 8.3 L Magnesium 2.6 Discharge Plan Discharge Anticipated Discharge Date/Time: 03/24/23 09:51 Patient Disposition: Home, Self-Care Discharge Diagnosis: bronchitis Referrals: Carmina Varela MD [Primary Care Provider] - 1 Week Discharge Medications: New prednisone 20 mg Tablet 40 mg PO DAILY Qty: 10 0RF cefuroxime axetil 500 mg tablet 500 mg PO BID Qty: 10 0RF Continued carvedilol 25 mg tablet 25 mg PO BID Qty: 180 5RF Entresto 97-103 mg tablet 1 tab PO BID 90 Days Qty: 180 3RF citalopram 20 mg tablet 20 mg PO DAILY Jardiance 25 mg tablet 25 mg PO DAILY Xarelto 20 mg tablet 20 mg PO DAILY@1700 Rx Instructions: must administer with evening meal insulin glargine [Lantus Solostar U-100 Insulin] 100 unit/mL (3 mL) insulin pen 28 unit subcut BEDTIME furosemide [Lasix] 40 mg tablet 80 mg PO BID@0800,1400 insulin aspart U-100 100 unit/mL (3 mL) insulin pen 3 - 5 unit subcut TID atorvastatin 80 mg tablet 80 mg PO BEDTIME Combivent Respimat 20-100 mcg/actuation mist 1 puff inhalation QID PRN (Reason: Wheezing/Sob.) 90 Days Qty: 4 3RF Rx Instructions: space evenly during waking hours Discharge Orders: Discharge Order (Routine); Ordered 03/24/23 Ordered By: Brandon Mack Diet: Advance to usual diet Activity on Discharge: As tolerated Stand Alone Forms: Patient Portal Discharge page Care Plan Goals: recovery Health Concerns: bronchitis Plan of Treatment: 5 more days prednisone and ceftin Assessment: see above
[2023-03-24 09:56] VITALS: PULSE 62; RESP 18
[2023-03-24 11:01] LABS: Glucose, Whole Blood 157 mg/dL (60-115)
--- NOTE | 2023-03-24 11:17 | MHC.CM.PN ---
pt medically cleared for dc home, pt awaiting scripts to be filled w/[facility] and antic will take [facility] shuttle home at 12pm.
== END 2023-03-24 12:00 | disposition home or self-care (01) | DRG 194 ==
LOC: HO.ED 16:23 → HO.EDOVER 23:02 → HO.IMC 03-20 01:08
PROVIDERS: Nurse Practitioner Family; Admitting Provider Internal Medicine; Emergency Provider Emergency Medicine Emergency Medical Services; PCP Internal Medicine; Visit Provider Internal Medicine
DX: J18.9 Pneumonia, unspecified organism (principal); I42.8 Other cardiomyopathies; J45.21 Mild intermittent asthma with (acute) exacerbation; Z68.42 Body mass index [BMI] 45.0-49.9, adult; I50.32 Chronic diastolic (congestive) heart failure; I25.5 Ischemic cardiomyopathy; I11.0 Hypertensive heart disease with heart failure; Z95.810 Presence of automatic (implantable) cardiac defibrillator; I25.10 Atherosclerotic heart disease of native coronary artery without angina pectoris; E11.9 Type 2 diabetes mellitus without complications; E66.01 Morbid (severe) obesity due to excess calories; G47.33 Obstructive sleep apnea (adult) (pediatric); Z20.822 Contact with and (suspected) exposure to COVID-19; Z95.1 Presence of aortocoronary bypass graft; Z87.81 Personal history of (healed) traumatic fracture; Z79.4 Long term (current) use of insulin; Z79.01 Long term (current) use of anticoagulants; Z79.899 Other long term (current) drug therapy
CPT/HCPCS: 36415; 71046; 80048; 80053; 82947; 83690; 83735; 83880; 84484; 85025; 85027; 85610; 87502; 87635; 93005; 94640; 94660; 99285; J0456; J0696; J2930; J7120

== ENCOUNTER → 2023-03-19 22:53 | Outpatient (BNV) | payer OTHER, SELFPAY ==
[2021-10-15 11:10] VITALS: BP 110/70; BMI 46.0
== END ==
PROVIDERS: Admitting Provider Internal Medicine; Emergency Provider Emergency Medicine Emergency Medical Services; PCP Internal Medicine; Visit Provider Internal Medicine Cardiovascular Disease
DX: J18.9 Pneumonia, unspecified organism (principal); I50.32 Chronic diastolic (congestive) heart failure
CPT/HCPCS: 99222

== ENCOUNTER → 2023-03-19 22:53 | Outpatient (BNV) | payer OTHER, SELFPAY ==
[2021-10-15 11:10] VITALS: BP 110/70; BMI 46.0
== END ==
PROVIDERS: Admitting Provider Internal Medicine; Emergency Provider Emergency Medicine Emergency Medical Services; PCP Internal Medicine; Visit Provider Internal Medicine
DX: J18.9 Pneumonia, unspecified organism (principal)
CPT/HCPCS: 99223; 99232; 99233; 99239; 99499

== ENCOUNTER → 2023-04-03 23:59 | Outpatient (BNV) | payer OTHER, SELFPAY ==
[2021-10-15 11:10] VITALS: BP 110/70; BMI 46.0
--- NOTE | 2023-04-13 12:22 | A.OFFVIS_ITS ---
Intake Intake Visit Reasons: Remote CardioMEMS- [facility] Allergies No Known Allergies Allergy (Verified 03/19/23 16:16) PFSH Medical History Sleep apnea Presence of CardioMEMS HF system Hx of myocardial infarction Anxiety and depression Osteoarthritis Fatty liver Restrictive lung disease TAQUERIA treated with BiPAP Morbid obesity Biventricular ICD (implantable cardioverter-defibrillator) in place CAD (coronary artery disease) Non-rheumatic aortic stenosis Atherosclerotic cardiovascular disease Acute on chronic systolic and diastolic heart failure, NYHA class 3 Leukocytosis Dyspnea Transaminitis Hypoxia Congestive heart failure TAQUERIA (obstructive sleep apnea) NSVT (nonsustained ventricular tachycardia) Cardiomyopathy Chronic systolic heart failure Diabetes mellitus HLD (hyperlipidemia) HTN (hypertension) Surgical History History of incision and drainage Status post coronary artery bypass graft Stented coronary artery Hx of CABG History of cardiac cath Hx of cardiac cath Hx of cardiac cath Hx of appendectomy History of cholecystectomy Family History Father No problems noted. Mother No problems noted. Social History Household Members: Children Household Members Other:: son and daughter in law Housing: Apartment Are you a primary primary health care nurse to a significant other at home: No Do you presently have visiting nurse or other home services: No Alcohol intake: never Comment: chronic back pain Patient Tobacco Use Status: Former Tobacco user Quit Date: 2020 Tobacco use type: Cigarette Cigarette Packs Per Day: 1 Years Smoked: 30 e-Cigarette/Vaping Use: Former Use Second Hand Smoke Exposure: Yes Advance Directives Date on File: 11/07/22 service: No Current occupational status: unemployed and disabled Current occupation: rt hand Office Procedures Cardiac Device Check Cardiac Device Check Details: Monitoring period dates:02/25/23 - 03/27/23 Optimal PA pressure range: CARI 28mmhg Procedure code: 07471 BACKGROUND: [place] is implanted with the CardioMEMS PA Sensor.? I use this technology to monitor PA pressures on a weekly basis to ensure patients are within their optimal range to prevent decompensation.? SUMMARY:? I utilized the remote monitoring platform ([email or web address]) to set optimal targets for pulmonary artery pressure thresholds as part of acute and chronic management of patient?s heart failure. During the period indicated above, I monitored the patient?s pulmonary artery pressures weekly via trend analysis and notification reports which provide alerts when patient?s PA pressures were outside of range to prompt immediate action in medication changes and communications.? The weekly reports are archived in the [employer] system which serve as a parallel record to document weekly PA pressures, medication changes, and clinical notes. I have reviewed readings on 02/27, 03/06, 03/12, 03/16, 03/22, 03/26. She is noncompliant with monitoring and has done readings on 03/02 and 03/09 only inspite of calls, letters. CARI 31 and 40mmhg. 22273 - Remote monitoring of wireless pulmonary artery pressure sensor Procedure code (CPT) selection complete Assessment & Plan Assessment & Plan (1) Presence of CardioMEMS HF system: Code(s): Z95.818 - Presence of other cardiac implants and grafts Plan: monthly monitoring Coding Level of Care Code Procedure Only Diagnoses Presence of CardioMEMS HF system Z95.818 CPT Codes Cardiac Device Check - Cardiac Device 17: 56934 - Remote monitoring of wireless pulmonary artery pressure sensor ([id number])
== END ==
PROVIDERS: PCP Internal Medicine; Visit Provider Nurse Practitioner Family
DX: I50.22 Chronic systolic (congestive) heart failure (principal); Z95.818 Presence of other cardiac implants and grafts
CPT/HCPCS: 93264

== ENCOUNTER → 2023-05-05 23:59 | Outpatient (BNV) | payer OTHER, SELFPAY ==
[2021-10-15 11:10] VITALS: BP 110/70; BMI 46.0
--- NOTE | 2023-05-05 16:15 | MHC.OFFVIS ---
Intake Intake Visit Reasons: Remote ICD Check- [facility] Allergies No Known Allergies Allergy (Verified 03/19/23 16:16) [facility] Medical History Sleep apnea Presence of CardioMEMS HF system Hx of myocardial infarction Anxiety and depression Osteoarthritis Fatty liver Restrictive lung disease TAQUERIA treated with BiPAP Morbid obesity Biventricular ICD (implantable cardioverter-defibrillator) in place CAD (coronary artery disease) Non-rheumatic aortic stenosis Atherosclerotic cardiovascular disease Acute on chronic systolic and diastolic heart failure, NYHA class 3 Leukocytosis Dyspnea Transaminitis Hypoxia Congestive heart failure TAQUERIA (obstructive sleep apnea) NSVT (nonsustained ventricular tachycardia) Cardiomyopathy Chronic systolic heart failure Diabetes mellitus HLD (hyperlipidemia) HTN (hypertension) Surgical History History of incision and drainage Status post coronary artery bypass graft Stented coronary artery Hx of CABG History of cardiac cath Hx of cardiac cath Hx of cardiac cath Hx of appendectomy History of cholecystectomy Family History Father No problems noted. Mother No problems noted. Social History Household Members: Children Household Members Other:: son and daughter in law Housing: Apartment Are you a primary wound care nurse to a significant other at home: No Do you presently have visiting nurse or other home services: No Alcohol intake: never Comment: chronic back pain Patient Tobacco Use Status: Former Tobacco user Quit Date: 2020 Tobacco use type: Cigarette Cigarette Packs Per Day: 1 Years Smoked: 30 e-Cigarette/Vaping Use: Former Use Second Hand Smoke Exposure: Yes Advance Directives Date on File: 11/07/22 service: No Current occupational status: unemployed and disabled Current occupation: rt hand Office Procedures Cardiac Device Check Cardiac Device Check Details: Remote ICD report generated 05/05/2023. ICD function is adequate. Bi V pacing 99% of the time [id number] Cardiac Interrogation, implant defibrillator w/interim Procedure code (CPT) selection complete Assessment & Plan Assessment & Plan (1) Biventricular ICD (implantable cardioverter-defibrillator) in place: Comment: [facility] 2015 Code(s): Z95.810 - Presence of automatic (implantable) cardiac defibrillator Plan: See above Coding Level of Care Code Procedure Only Diagnoses Biventricular ICD (implantable cardioverter-defibrillator) in place Z95.810 CPT Codes Cardiac Device Check - Cardiac Device 13: [id number] Cardiac Interrogation, implant defibrillator w/interim ([id number])
== END ==
PROVIDERS: PCP Internal Medicine; Visit Provider Internal Medicine Cardiovascular Disease
DX: I42.9 Cardiomyopathy, unspecified (principal); Z95.810 Presence of automatic (implantable) cardiac defibrillator
CPT/HCPCS: 93295

== ENCOUNTER 2023-05-18 08:41 | Outpatient (AMB) | payer OTHER, SELFPAY ==
[2021-10-15 11:10] VITALS: BP 110/70; BMI 46.0
[2023-05-18 09:04] VITALS: BP 122/72; PULSE 65; O2SAT 98; BMI 45.6
--- NOTE | 2023-05-18 09:04 | MHC.OFFVIS ---
Intake Vital Signs 05/18/23 09:04 Height 4 ft 11 in Weight 225 lb 15.581 oz BMI 45.6 BP 122/72 Blood Pressure Location Lt brachial Position Sitting Pulse 65 Pulse Source Pulse Oximeter Pulse Oximetry (%) 98 Oxygen Delivery Method Room Air Intake Visit Reasons: copd Intake Note: pt is here for follow up and states she is feeling good. She is care taking for her daughter-in law. pt's c-pap is about 10 years old and re will request a replacement machine with reliable resp. Language Teacher Required: No Allergies No Known Allergies Allergy (Verified 05/18/23 09:10) Medication List - Last Reconciled 05/18/23 by Dario Ling MD atorvastatin 80 mg PO BEDTIME carvedilol 25 mg PO BID citalopram 20 mg PO DAILY empagliflozin (Jardiance) 25 mg PO DAILY furosemide (Lasix) 80 mg PO BID@0800,1400 insulin aspart U-100 3 - 5 units subcut TID insulin glargine (Lantus Solostar U-100 Insulin) 28 units subcut BEDTIME ipratropium-albuterol 20-100 mcg/actuation (Combivent Respimat) 1 puff inhalation QID PRN 90 days rivaroxaban (Xarelto) 20 mg PO DAILY@1700 sacubitril-valsartan 97-103 mg (Entresto) 1 tab PO BID 90 days Do you need a note to return to daycare/school/sports/work: No HPI copd HPI Details La Nena is 68 years old very pleasant female who has morbid obesity, and longstanding diagnosis of obstructive sleep apnea/hypoventilation syndrome. She has been treated with the CPAP/ ASV mode, with the nasal pillows, and has been very compliant all along. She uses the CPAP every night, and sleeps well. She has usual shortness of breath on walking around or climbing stairs but not at rest. 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 She has not been able to lose weight. In February 2023 she was hospitalized for a few days for possible atypical pneumonitis/congestive heart failure, and afterwards she has been doing well. Chest x-ray was reported abnormal and she would need a repeat chest x-ray for follow-up . [facility] Medical History Sleep apnea Presence of CardioMEMS HF system Hx of myocardial infarction Anxiety and depression Osteoarthritis Fatty liver Restrictive lung disease TAQUERIA treated with BiPAP Morbid obesity Biventricular ICD (implantable cardioverter-defibrillator) in place CAD (coronary artery disease) Non-rheumatic aortic stenosis Atherosclerotic cardiovascular disease Acute on chronic systolic and diastolic heart failure, NYHA class 3 Leukocytosis Dyspnea Transaminitis Hypoxia Congestive heart failure TAQUERIA (obstructive sleep apnea) NSVT (nonsustained ventricular tachycardia) Cardiomyopathy Chronic systolic heart failure Diabetes mellitus HLD (hyperlipidemia) HTN (hypertension) Surgical History History of incision and drainage Status post coronary artery bypass graft Stented coronary artery Hx of CABG History of cardiac cath Hx of cardiac cath Hx of cardiac cath Hx of appendectomy History of cholecystectomy Family History Father No problems noted. Mother No problems noted. Social History Household Members: Children Household Members Other:: son and daughter in law Housing: Apartment Are you a primary child care attendant to a significant other at home: No Do you presently have visiting nurse or other home services: No Alcohol intake: never Comment: chronic back pain Patient Tobacco Use Status: Former Tobacco user Quit Date: 2020 Tobacco use type: Cigarette Cigarette Packs Per Day: 1 Years Smoked: 30 e-Cigarette/Vaping Use: Former Use Second Hand Smoke Exposure: Yes Advance Directives Date on File: 11/07/22 service: No Current occupational status: unemployed and disabled Current occupation: rt hand Review of Systems Const All systems reviewed & are unremarkable except as noted in HPI and below Reports no additional complaints Eyes Reports no additional complaints ENT Reports no additional complaints Card Denies chest pain, Denies irregular heart rhythm, Reports leg edema and Reports dyspnea on exertion Resp Reports as per HPI and Reports dyspnea on exertion GI Reports no additional complaints Reports no additional complaints Musc Reports no additional complaints Skin/Breast Reports system reviewed and no additional complaints, except as documented Neuro Reports no additional complaints Psych Reports depression (CONTROLLED WITHMED) Endo Reports no additional complaints Jeremie/Lymph Reports no additional complaints Physical Exam Vital Signs: Last Vital Signs Pulse 65 01/22/24 09:04 BP 122/72 05/18/23 09:04 Pulse Ox 98 05/18/23 09:04 Oxygen Delivery Method Room Air 05/18/23 09:04 BMI result Body Mass Index 45.6 Const Other: GROSSLY OBESE , WITH BULKY ABDOMEN AND LOWER EXTREMITIES. General: comfortable, no acute distress, alert and awake Orientation/consciousness: patient oriented x3 HEENT Head: Yes normal to inspection General nose exam: No nasal polyps present and No nasal discharge present Face and sinus: Yes sinuses nontender Mouth: oropharynx abnormals (NARROW AND CROWDED, MALLAMPATI CLASS 3) Throat: Yes posterior oropharynx normal Eyes General: appearance normal, both eyes and all related structures Neck Neck: Yes normal visual inspection, Yes no lymphadenopathy, Yes trachea midline and Yes no JVD Thyroid: Thyroid normal Chest Chest palpation & inspection: abnormal inspection of the chest (MIDLINE SCAR FROM PREVIOUS CABG SURGERY, AND PACEMAKER LEFT PECTORAL AREA), normal palpation of entire chest wall and no tenderness Resp Auscultation: no crackles, no wheezes and diminished lung sounds (OVER BASES ) Cardio Palpation: PMI not normal (NOT PALPABLE) Rate: regular rate Rhythm: regular rhythm Heart sounds: no gallops and Murmur heart sound present (FAINT SYSTOLIC MURMUR OVER AORTIC AREA) GI Palpation (GI): Soft to palpation, Tenderness to palpation present (GI), No hepatosplenomegaly present, Palpable mass present and Other GI palpation findings present (ABDOMEN IS GROSSLY OBESE AND PENDULOUS) Auscultation: normal bowel sounds Back/Spine/Pelvis Thoracic/Lumbar Spine: thoracic and lumbar spine normal to inspection and thoraco-lumbar ROM limited Skin General skin exam: no rashes or lesions noted Neuro General: patient oriented x3 and no focal motor deficits Cranial nerves: Yes CN's II-XII intact bilaterally Extrem General: Yes normal to inspection, Yes no clubbing, cyanosis or edema (SHE DOES HAVE CHRONIC PROBLEM OF STASIS EDEMA BUT NONE TODAY. ), Yes no calf tenderness and No venous stasis dermatitis Psych Appearance: grossly normal and well kempt Speech and movement: Normal speech and movement present Results Reviewed Results Reviewed: CHEST XRAY 03/19/23 IMPRESSION: 1. Slightly increased interstitial opacities which may represent atypical/viral infection with superimposed right lower lobe consolidation suspicious for superimposed infection. Recommend follow-up radiographs to ensure resolution. I reviewed the image , I think it was a poor inspiratory film. Needs to have arepeat Xray . Assessment & Plan Assessment & Plan (1) Restrictive lung disease: Comment: PULMONARY FUNCTION TEST HAS SHOWN THAT SHE HAS MILD TO MODERATE DEGREE OF RESTRICTIVE DISORDER AND NO OBSTRUCTIVE DISORDER. Code(s): J98.4 - Other disorders of lung Plan: TX : NO NEED OF USING ANY BRONCHODILATORS ON A CONTINUOUS BASIS. MAY USE COMBIVENT RESPIMAT 1 INHALATION Q 4-6 HOURS ONLY P.R.N. IF SHE DEVELOPS RESPIRATORY DISTRESS OR WHEEZING SHE IS ENCOURAGED TO DO DEEP BREATHING EXERCISES 2 OR 3 TIMES A DAY. (2) TAQUERIA treated with BiPAP: Comment: CHRONIC COMPLEX SLEEP APNEA, TREATED WITH ASV MODE ,( PRESSURE 10 CM, WITH BACKUP RATE OF 12. Nasal pillows ) PATIENT IS VERY COMPLIANT AND BENEFITS FROM THE USE OF CPAP. Code(s): G47.33 - Obstructive sleep apnea (adult) (pediatric) Plan: PATIENT IS ADVISED TO CONTINUE THE SAME ON A REGULAR BASIS ,AT LEAST FOR 6-7 HRS PER NIGHT SHE HAS NO ISSUES WITH THE USE OF CPAP . The CPAP device is more than 10 years old and we are requesting if she can get a new one (3) Morbid obesity: Comment: SHE REMAINS MORBIDLY OBESE, DIFFICULT FOR HER TO LOSE WEIGHT, BECAUSE SOME OF THAT DEPENDS UPON FLUID RETENTION. EXPLAINED TO THE PATIENT IN DETAIL. SHE NEEDS TO LOSE SOME WEIGHT EVEN A FEW LB PER MONTH WILL BE FINE. Code(s): E66.01 - Morbid (severe) obesity due to excess calories Plan: Practically it is difficult for her to lose weight (4) Chronic diastolic heart failure: Comment: SHE IS A CASE OF CHRONIC DIASTOLIC FAILURE AND IS BEING FOLLOWED BY CARDIOLOGY SERVICE CLOSELY. SHE IS ON LONG STANDING ANTICOAGULATION THERAPY Code(s): I50.32 - Chronic diastolic (congestive) heart failure Plan: REPEAT CHEST X-RAY IS ORDERED Orders: Orders XR chest 2V Today E66.01 - Morbid (severe) obesity due to excess calories, G47.33 - Obstructive sleep apnea (adult) (pediatric), I50.32 - Chronic diastolic (congestive) heart failure, J98.4 - Other disorders of lung Coding Level of Care Code Est Pt Level 3 (81673) Diagnoses Restrictive lung disease J98.4 TAQUERIA treated with BiPAP G47.33 Morbid obesity E66.01 Chronic diastolic heart failure I50.32
== END 2023-05-18 09:25 | disposition home or self-care (01) ==
PROVIDERS: PCP Internal Medicine; Visit Provider Internal Medicine
DX: J98.4 Other disorders of lung (principal); G47.33 Obstructive sleep apnea (adult) (pediatric); E66.01 Morbid (severe) obesity due to excess calories; I50.32 Chronic diastolic (congestive) heart failure
CPT/HCPCS: 99213

== ENCOUNTER → 2023-05-18 08:41 | Outpatient (BNVA) | payer OTHER, SELFPAY ==
[2021-10-15 11:10] VITALS: BP 110/70; BMI 46.0
== END ==
PROVIDERS: PCP Internal Medicine; Visit Provider Internal Medicine
DX: G47.33 Obstructive sleep apnea (adult) (pediatric) (principal); J98.4 Other disorders of lung; E66.01 Morbid (severe) obesity due to excess calories; I50.32 Chronic diastolic (congestive) heart failure; Z68.42 Body mass index [BMI] 45.0-49.9, adult
CPT/HCPCS: 99212

== ENCOUNTER → 2023-06-05 23:59 | Outpatient (BNV) | payer OTHER, SELFPAY ==
[2021-10-15 11:10] VITALS: BP 110/70; BMI 46.0
--- NOTE | 2023-06-09 17:52 | MHC.OFFVIS ---
Intake Intake Visit Reasons: Remote CardioMEMS Check- [facility] Allergies No Known Allergies Allergy (Verified 05/18/23 09:10) [facility] Medical History Sleep apnea Presence of CardioMEMS HF system Hx of myocardial infarction Anxiety and depression Osteoarthritis Fatty liver Restrictive lung disease TAQUERIA treated with BiPAP Morbid obesity Biventricular ICD (implantable cardioverter-defibrillator) in place CAD (coronary artery disease) Non-rheumatic aortic stenosis Atherosclerotic cardiovascular disease Acute on chronic systolic and diastolic heart failure, NYHA class 3 Leukocytosis Dyspnea Transaminitis Hypoxia Congestive heart failure TAQUERIA (obstructive sleep apnea) NSVT (nonsustained ventricular tachycardia) Cardiomyopathy Chronic systolic heart failure Diabetes mellitus HLD (hyperlipidemia) HTN (hypertension) Surgical History History of incision and drainage Status post coronary artery bypass graft Stented coronary artery Hx of CABG History of cardiac cath Hx of cardiac cath Hx of cardiac cath Hx of appendectomy History of cholecystectomy Family History Father No problems noted. Mother No problems noted. Social History Household Members: Children Household Members Other:: son and daughter in law Housing: Apartment Are you a primary medicare insurance specialist to a significant other at home: No Do you presently have visiting nurse or other home services: No Alcohol intake: never Comment: chronic back pain Patient Tobacco Use Status: Former Tobacco user Quit Date: 2020 Tobacco use type: Cigarette Cigarette Packs Per Day: 1 Years Smoked: 30 e-Cigarette/Vaping Use: Former Use Second Hand Smoke Exposure: Yes Advance Directives Date on File: 11/07/22 service: No Current occupational status: unemployed and disabled Current occupation: rt hand Office Procedures Cardiac Device Check Cardiac Device Check Details: Monitoring period dates: 04/27/23 - 06/05/23 Optimal PA pressure range: CARI goal 28mmhg Procedure code: 45447 BACKGROUND: La Nena is implanted with the CardioMEMS PA Sensor.? I use this technology to monitor PA pressures on a weekly basis to ensure patients are within their optimal range to prevent decompensation.? SUMMARY:? I utilized the remote monitoring platform ([employer]) to set optimal targets for pulmonary artery pressure thresholds as part of acute and chronic management of patient?s heart failure. During the period indicated above, I monitored the patient?s pulmonary artery pressures weekly via trend analysis and notification reports which provide alerts when patient?s PA pressures were outside of range to prompt immediate action in medication changes and communications.? The weekly reports are archived in the [employer] system which serve as a parallel record to document weekly PA pressures, medication changes, and clinical notes. I have reviewed readings on 04/28, 05/04, 05/11, 05/14, 05/19, 05/26, 06/02. She is mostly noncompliant with readings inspite of phone calls and letters. CARI readings have been 26 and 32mmgh. She denies symptoms. 28212 - Remote monitoring of wireless pulmonary artery pressure sensor Procedure code (CPT) selection complete Assessment & Plan Assessment & Plan (1) Presence of CardioMEMS HF system: Code(s): Z95.818 - Presence of other cardiac implants and grafts Plan: monthly report Coding Level of Care Code Procedure Only Diagnoses Presence of CardioMEMS HF system Z95.818 CPT Codes Cardiac Device Check - Cardiac Device 17: 11668 - Remote monitoring of wireless pulmonary artery pressure sensor ([id number])
== END ==
PROVIDERS: PCP Internal Medicine; Visit Provider Nurse Practitioner Family
DX: I50.43 Acute on chronic combined systolic (congestive) and diastolic (congestive) heart failure (principal); Z95.818 Presence of other cardiac implants and grafts
CPT/HCPCS: 93264

== ENCOUNTER → 2023-07-06 23:59 | Outpatient (BNV) | payer OTHER, SELFPAY ==
[2021-10-15 11:10] VITALS: BP 110/70; BMI 46.0
--- NOTE | 2023-07-16 11:52 | MHC.OFFVIS ---
Intake Intake Visit Reasons: Remote CardioMEMS Check- [facility] Allergies No Known Allergies Allergy (Verified 05/18/23 09:10) [facility] Medical History Sleep apnea Presence of CardioMEMS HF system Hx of myocardial infarction Anxiety and depression Osteoarthritis Fatty liver Restrictive lung disease TAQUERIA treated with BiPAP Morbid obesity Biventricular ICD (implantable cardioverter-defibrillator) in place CAD (coronary artery disease) Non-rheumatic aortic stenosis Atherosclerotic cardiovascular disease Acute on chronic systolic and diastolic heart failure, NYHA class 3 Leukocytosis Dyspnea Transaminitis Hypoxia Congestive heart failure TAQUERIA (obstructive sleep apnea) NSVT (nonsustained ventricular tachycardia) Cardiomyopathy Chronic systolic heart failure Diabetes mellitus HLD (hyperlipidemia) HTN (hypertension) Surgical History History of incision and drainage Status post coronary artery bypass graft Stented coronary artery Hx of CABG History of cardiac cath Hx of cardiac cath Hx of cardiac cath Hx of appendectomy History of cholecystectomy Family History Father No problems noted. Mother No problems noted. Social History Household Members: Children Household Members Other:: son and daughter in law Housing: Apartment Are you a primary hearing care practitioner to a significant other at home: No Do you presently have visiting nurse or other home services: No Alcohol intake: never Comment: chronic back pain Patient Tobacco Use Status: Former Tobacco user Quit Date: 2020 Tobacco use type: Cigarette Cigarette Packs Per Day: 1 Years Smoked: 30 e-Cigarette/Vaping Use: Former Use Second Hand Smoke Exposure: Yes Advance Directives Date on File: 11/07/22 service: No Current occupational status: unemployed and disabled Current occupation: rt hand Office Procedures Cardiac Device Check Cardiac Device Check Details: Monitoring period dates: 06/06/23 - 07/06/23 Optimal PA pressure range:CARI goal 28mmhg Procedure code: [id number] BACKGROUND: La Nena is implanted with the CardioMEMS PA Sensor.? I use this technology to monitor PA pressures on a weekly basis to ensure patients are within their optimal range to prevent decompensation.? SUMMARY:? I utilized the remote monitoring platform ([employer]) to set optimal targets for pulmonary artery pressure thresholds as part of acute and chronic management of patient?s heart failure. During the period indicated above, I monitored the patient?s pulmonary artery pressures weekly via trend analysis and notification reports which provide alerts when patient?s PA pressures were outside of range to prompt immediate action in medication changes and communications.? The weekly reports are archived in the [employer] system which serve as a parallel record to document weekly PA pressures, medication changes, and clinical notes. I have reviewed readings on multiple occassions during the month. She completed only 2 readings, on 06/11 and 06/30. CARI 43 and 28. She reports feeling good, breathing fine when called. Need for better compliance with cardiomems readings reviewed with her. 69270 - Remote monitoring of wireless pulmonary artery pressure sensor Procedure code (CPT) selection complete Assessment & Plan Assessment & Plan (1) Presence of CardioMEMS HF system: Code(s): Z95.818 - Presence of other cardiac implants and grafts Plan: monthly report Coding Level of Care Code Procedure Only Diagnoses Presence of CardioMEMS HF system Z95.818 CPT Codes Cardiac Device Check - Cardiac Device 17: 00454 - Remote monitoring of wireless pulmonary artery pressure sensor ([id number])
== END ==
PROVIDERS: PCP Internal Medicine; Visit Provider Nurse Practitioner Family
DX: Z95.818 Presence of other cardiac implants and grafts (principal)
CPT/HCPCS: 93264

== ENCOUNTER → 2023-07-20 19:30 | Outpatient (REF) | payer OTHER, SELFPAY ==
[2021-10-15 11:10] VITALS: BP 110/70; BMI 46.0
== END ==
LOC: HO.SL 19:30
PROVIDERS: PCP Internal Medicine; Visit Provider Internal Medicine
DX: G47.33 Obstructive sleep apnea (adult) (pediatric) (principal); E66.01 Morbid (severe) obesity due to excess calories; I50.32 Chronic diastolic (congestive) heart failure
CPT/HCPCS: 95810

== ENCOUNTER → 2023-07-20 22:24 | Outpatient (BNV) | payer OTHER, SELFPAY ==
[2021-10-15 11:10] VITALS: BP 110/70; BMI 46.0
== END ==
PROVIDERS: PCP Internal Medicine; Visit Provider Internal Medicine
DX: G47.33 Obstructive sleep apnea (adult) (pediatric) (principal)
CPT/HCPCS: 95810

== ENCOUNTER → 2023-08-04 23:59 | Outpatient (BNV) | payer OTHER, SELFPAY ==
[2021-10-15 11:10] VITALS: BP 110/70; BMI 46.0
--- NOTE | 2023-08-05 15:36 | A.OFFVIS_ITS ---
Intake Intake Visit Reasons: Remote device check- [facility] Allergies No Known Allergies Allergy (Verified 05/18/23 09:10) [facility] Medical History Sleep apnea Presence of CardioMEMS HF system Hx of myocardial infarction Anxiety and depression Osteoarthritis Fatty liver Restrictive lung disease TAQUERIA treated with BiPAP Morbid obesity Biventricular ICD (implantable cardioverter-defibrillator) in place CAD (coronary artery disease) Non-rheumatic aortic stenosis Atherosclerotic cardiovascular disease Acute on chronic systolic and diastolic heart failure, NYHA class 3 Leukocytosis Dyspnea Transaminitis Hypoxia Congestive heart failure TAQUERIA (obstructive sleep apnea) NSVT (nonsustained ventricular tachycardia) Cardiomyopathy Chronic systolic heart failure Diabetes mellitus HLD (hyperlipidemia) HTN (hypertension) Surgical History History of incision and drainage Status post coronary artery bypass graft Stented coronary artery Hx of CABG History of cardiac cath Hx of cardiac cath Hx of cardiac cath Hx of appendectomy History of cholecystectomy Family History Father No problems noted. Mother No problems noted. Social History Household Members: Children Household Members Other:: son and daughter in law Housing: Apartment Are you a primary career placement services counselor to a significant other at home: No Do you presently have visiting nurse or other home services: No Alcohol intake: never Comment: chronic back pain Patient Tobacco Use Status: Former Tobacco user Quit Date: 2020 Tobacco use type: Cigarette Cigarette Packs Per Day: 1 Years Smoked: 30 e-Cigarette/Vaping Use: Former Use Second Hand Smoke Exposure: Yes Advance Directives Date on File: 11/07/22 service: No Current occupational status: unemployed and disabled Current occupation: rt hand Office Procedures Cardiac Device Check Cardiac Device Check Details: Remote ICD report generated 08/04/2023. ICD function is adequate. Bi V pacing greater than 99% of the time [id number] Cardiac Interrogation, implant defibrillator w/interim Procedure code (CPT) selection complete Assessment & Plan Assessment & Plan (1) Biventricular ICD (implantable cardioverter-defibrillator) in place: Comment: [facility] 2015 Code(s): Z95.810 - Presence of automatic (implantable) cardiac defibrillator Plan: See above Coding Level of Care Code Procedure Only Diagnoses Biventricular ICD (implantable cardioverter-defibrillator) in place Z95.810 CPT Codes Cardiac Device Check - Cardiac Device 13: [id number] Cardiac Interrogation, implant defibrillator w/interim ([id number])
== END ==
PROVIDERS: PCP Internal Medicine; Visit Provider Internal Medicine Cardiovascular Disease
DX: Z45.02 Encounter for adjustment and management of automatic implantable cardiac defibrillator (principal)
CPT/HCPCS: 93295

== ENCOUNTER 2023-08-14 16:22 | Inpatient (IN) | payer OTHER, SELFPAY ==
[2021-10-15 11:10] VITALS: BP 110/70; BMI 46.0
[2023-08-14] VITALS (7 sets, daily range): BP systolic 148–169; BP diastolic 62–90; PULSE 71–74; RESP 14–22; TEMP 36.4; O2SAT 94–97; BMI 48.2
--- NOTE | ~2023-08-14 | XR_ITS ---
EXAMINATION: XR CHEST CLINICAL INFORMATION: Shortness of breath. COMPARISON: Chest radiograph dated 03/19/2023. Chest radiograph dated 11/05/2022. TECHNIQUE: Frontal view of the chest was obtained. FINDINGS: The left pectoral pacemaker leads are unchanged in position. Cardio MEMS device is unchanged in position. There are sternotomy sutures. Heart size remains stable. There is no consolidation within either lung. No pleural effusion or pneumothorax. No acute osseous abnormality. XR/XR chest 1V IMPRESSION: No consolidation. Stable appearance of the chest were compared with 11/05/2022 chest radiograph.
--- NOTE | 2023-08-14 17:25 | ECG_ITS ---
Test Reason : SOB Blood Pressure : / mmHG Vent. Rate : 070 BPM Atrial Rate : 070 BPM P-R Int : 144 ms QRS Dur : 118 ms QT Int : 488 ms P-R-T Axes : 039 238 028 degrees QTc Int : 527 ms Atrial-sensed ventricular-paced rhythm Biventricular pacemaker detected Abnormal ECG When compared with ECG of 19-MAR-2023 21:28, Premature ventricular complexes are no longer Present Vent. rate has decreased BY 14 BPM Referred By: Tamra Marley Electronically Signed By:BATSHEVA POLANCO
--- NOTE | 2023-08-14 17:28 | ED_ITS ---
HPI - Pediatric SOB/Dyspnea General Chief Complaint: Dyspnea Stated Complaint: Diff breathing, 92% RA while walking, 2 lpm NC Source: patient and EMS Mode of arrival: EMS Limitations: no limitations History of Present Illness HPI Narrative: Patient comes to emergency room complaining of increased shortness of breath, bilateral rib pain. Patient states that she is known to have history of CHF COPD and asthma, states she is compliant with all of her medications. Patient states that since yesterday she started feeling short of breath with exertion. Denies any chest pain. Patient is not oxygen dependent. Denies any recent URIs to her knowledge, no nausea vomiting diarrhea, no abdominal pain. Patient states she has chronic lower extremity edema and she takes ?water pills Related Data Home Medications ?Medication ?Instructions ?Recorded ?Confirmed atorvastatin 80 mg tablet 80 mg PO BEDTIME 02/27/20 03/20/23 insulin aspart U-100 100 unit/mL 3 - 5 unit subcut TID 06/26/20 03/20/23 (3 mL) subcutaneous pen citalopram 20 mg tablet 20 mg PO DAILY 07/21/20 03/20/23 furosemide 40 mg tablet (Lasix) 80 mg PO BID@0800,1400 11/05/22 03/20/23 insulin glargine 100 unit/mL (3 28 unit subcut BEDTIME 11/05/22 03/20/23 mL) subcutaneous pen (Lantus Solostar U-100 Insulin) rivaroxaban 20 mg tablet (Xarelto) 20 mg PO DAILY@1700 11/05/22 03/20/23 empagliflozin 25 mg tablet 25 mg PO DAILY 03/20/23 03/20/23 (Jardiance) Previous Rx's ?Medication ?Instructions ?Recorded carvedilol 25 mg tablet 25 mg PO BID #180 tabs 04/15/22 sacubitril 97 mg-valsartan 103 mg 1 tab PO BID 90 days #180 tabs 06/11/22 tablet (Entresto) ipratropium 20 mcg-albuterol 100 1 puff inhalation QID PRN 08/11/23 mcg/actuation mist for inhalation Wheezing/Sob. 90 days #4 grams (Combivent Respimat) Allergies Allergy/AdvReac Type Severity Reaction Status Date / Time No Known Allergies Allergy Verified 08/14/23 16:38 Pediatric Review of Systems 2 Review of Systems: Constitutional : No Weight loss, No Fever, No Chills, No Night Sweats, No Fatigue, No Malaise ENT/Mouth : No Hearing loss, No Ear Pain, No Nasal Congestion, No Sinus Pain, No Hoarseness, No sore throat, No Rhinorrhea, No Swallowing Difficulty Eyes: No Eye Pain, No Swelling, No Redness, No Foreign Body, No Discharge, No Vision Changes Cardiovascular : No Chest Pain, complaining of shortness of breath with exertion, orthopnea, no palpitations Respiratory : No Cough, No Sputum, No Wheezing, No Smoke Exposure, does not with exertion Gastrointestinal: No nausea vomiting diarrhea or abdominal pain melena or hematochezia Pain, No Hematochezia, No Melena Genitourinary : no irregular bleeding, No Dysuria, No Urinary Frequency, No Hematuria, No Urinary Incontinence, No Urgency, No Flank Pain, No Urinary Flow Changes, No Hesitancy Musculoskeletal : No joint pain, No Myalgias, No Joint Swelling Skin : No Skin Lesions, No rash Neuro : No Weakness, No Numbness, No Paresthesias, No Loss of Consciousness, No Dizziness, No Headache Psych : No Anxiety/Panic, No Depression, No SI/HI/AH/VH, No Social Issues, Heme/Lymph: No Bruising, No Bleeding,No Lymphadenopathy Endocrine : No Polyuria, No Polydipsia, No Temperature Intolerance PMFSH Past Medical History Medical History Sleep apnea Presence of CardioMEMS HF system Hx of myocardial infarction Anxiety and depression Osteoarthritis Fatty liver Restrictive lung disease TAQUERIA treated with BiPAP Morbid obesity Biventricular ICD (implantable cardioverter-defibrillator) in place CAD (coronary artery disease) Non-rheumatic aortic stenosis Atherosclerotic cardiovascular disease Acute on chronic systolic and diastolic heart failure, NYHA class 3 Leukocytosis Dyspnea Transaminitis Hypoxia Congestive heart failure TAQUERIA (obstructive sleep apnea) NSVT (nonsustained ventricular tachycardia) Cardiomyopathy Chronic systolic heart failure Diabetes mellitus HLD (hyperlipidemia) HTN (hypertension) Surgical History History of incision and drainage Status post coronary artery bypass graft Stented coronary artery Hx of CABG History of cardiac cath Hx of cardiac cath Hx of cardiac cath Hx of appendectomy History of cholecystectomy Family History Family History Father No problems noted. Mother No problems noted. Social History Social History Household Members: Children Household Members Other:: son and daughter in law Housing: Apartment Are you a primary pharmacy care coordinator to a significant other at home: No Do you presently have visiting nurse or other home services: No Alcohol intake: never Comment: chronic back pain Patient Tobacco Use Status: Former Tobacco user Quit Date: 2020 Tobacco use type: Cigarette Cigarette Packs Per Day: 1 Years Smoked: 30 e-Cigarette/Vaping Use: Former Use Second Hand Smoke Exposure: Yes Advance Directives: Yes Advance Directives on File: Yes Advance Directives Date on File: 11/07/22 service: No Current occupational status: unemployed and disabled Current occupation: rt hand Pediatric Exam 2 Narrative: Physical exam: Appearance: Alert. Oriented X3. No acute distress. Eyes: Pupils equal, round and reactive to light. ENT: Pharynx normal. Neck: Normal inspection. Neck supple. No lymph nodes noted. No crepitus CVS: Normal heart rate and rhythm. Pulses normal. Normal S1 and S2 Respiratory: No respiratory distress. Breath sounds normal. No Wheezing. No rales , speaking full sentences, oxygen saturation 96% on room air Abdomen: Soft and nontender. No rigidity. No distention. Skin: Skin warm and dry. Normal skin color. Normal skin turgor. Extremities: +2 pitting edema bilaterally No Lacerations. No Rash Neuro: Oriented X 3. No motor deficit. No sensory deficit. Moving all extremities. No slurred speech. CN 2 through 12 grossly intact Psych: calm, cooperative, normal affect General: Limitations: no limitations Course Course Course Narrative: -all of patient's labs and imaging pending -ambulation trial pending -at this time, patient's vitals stable, oxygen saturation 96% on room air. Patient is speaking in full sentences Medications Administered Discontinued Medications Generic Name Dose Route Start Last Admin Trade Name Freq PRN Reason Stop Dose Admin Furosemide 80 mg 08/14/23 21:25 08/14/23 21:40 Furosemide 100 Mg/10 Ml Vial IVPUSH 08/14/23 21:26 80 mg ONCE ONE Administration Protocol Medical Decision Making Medical Decision Making [facility] Narrative: -my interpretation of labs, normal hematology, chemistry electrolytes within normal limits. Patient's BNP is elevated, double than usual. Patient's troponin is 445 which is chronic and at baseline for the patient. No chest pain. Serology negative for influenza COVID and RSV -our, patient became significantly short of breath when patient ambulated. Oxygen saturation state within the 90 91% range. But patient developed well to recuperate from a small walk. -patient was given 80 mg of IV Lasix. I discussed the patient with Dr. Villagran, patient being admitted for CHF exacerbation Differential Diagnosis Differential Diagnoses: The differential diagnosis associated with the presentation includes (CHF, pneumonia, viral illness, asthma, chronic lung disease) Admission/Observation Consideration of admission/observation: Escalation of care including admission/observation considered Consult Healthcare Provider Management of the patient was discussed with: Hospitalist Lab Data [facility] Lab Attestation statement: I reviewed the patient's lab results. 08/14/23 17:53 08/14/23 17:53 Labs: Lab Results 08/14/23 08/14/23 08/14/23 Range/Units 17:53 17:56 18:20 WBC 7.3 (4.8-10.8) X10*3/uL RBC 4.99 (4.20-5.50) X10*6/uL Hgb 15.0 (12.0-16.0) g/dl Hct 45.6 (37.0-47.0) % MCV 91.4 (80.0-98.0) fL MCH 30.1 (27.0-33.0) pg MCHC 32.9 (31.0-35.0) g/dl RDW 15.8 (11.0-16.0) % Plt Count 126 L (160-400) X10*3/uL MPV 11.6 (9.4-12.3) fL Immature Gran % (Auto) 0.1 (0.0-0.4) % Neut % (Auto) 54.8 (45-73) % Lymph % (Auto) 36.4 (20-40) % [place] % (Auto) 5.4 (2-11) % Eos % (Auto) 2.3 (0-4) % Baso % (Auto) 1.0 (0-2) % Lymph # (Auto) 2.6 (1.2-4.9) X10*3/uL [place] # (Auto) 0.4 (0.1-1.2) X10*3/uL Eos # (Auto) 0.2 (0.0-0.4) X10*3/uL Baso # (Auto) 0.1 (0.0-0.2) X10*3/uL Abs Immat Gran (auto) 0.01 (0.00-0.03) X10*3/uL Absolute Neuts (auto) 4.0 (2.0-8.3) x10*3/uL Absolute Nucleated RBC 0.000 (0.0-0.012) X10*3/uL Nucleated RBC % (auto) 0.0 (0.0-0.2) /100WBC PT 11.3 (11.1-13.3) SEC INR 0.9 (0.9-1.1) VBG pH 7.37 (7.32-7.43) VBG pCO2 40 mmHg VBG pO2 42 mmHg VBG HCO3 24 (22-26) mmol/L VBG O2 Saturation 71.0 % VBG Base Excess -1.1 mmol/L Sodium 142 (135-145) mmol/L Potassium 3.9 (3.3-5.1) mmol/L Chloride 110 H (96-108) mmol/L Carbon Dioxide 25 (22-29) mmol/L Anion Gap 11 L (12-20) BUN 17 H (9-16) mg/dL Creatinine 0.93 (0.5-1.4) mg/dL Estim Creat Clear Calc 62.3 Estimated GFR 60 Random Glucose 104 (60-115) mg/dL Lactic Acid 1.0 (0.5-2.0) mmol/L Calcium 8.7 (8.4-10.2) mg/dL Magnesium 2.5 (1.6-2.6) mg/dL Total Bilirubin 0.8 (0.0-1.0) mg/dL Direct Bilirubin 0.3 (0.0-0.5) mg/dL AST 24 (5-31) U/L ALT 16 (0-31) U/L Alkaline Phosphatase 116 (39-117) U/L Troponin I High Sens 445.4 H* (<3.5-17.0) ng/L B-Natriuretic Peptide 984 H (<100) pg/mL Total Protein 6.7 (6.5-8.0) g/dL Albumin 3.7 (3.5-5.0) g/dL Influenza Type A (PCR) NEGATIVE (Negative) Influenza Type B (PCR) NEGATIVE (Negative) RSV RNA Qual (PCR) NEGATIVE (Negative) SARS-CoV-2 RNA (RT-PCR) NEGATIVE (Negative) Independent Interpretation I performed an independent interpretation of an: EKG (My interpretation of EKG: Atrial sensed ventricular paced rhythm, heart rate 70, no ST segment depression or elevation, no T-wave inversion, QTC 527, history of prolonged QT) Critical Care Time Critical Care Time Critical Care Time: Yes Total Critical Care Time: 75 Attestation: I have personally provided critical care time. Time includes review of lab data, radiology results, discussion with consultants, and monitoring for potential decompensation. Intervention performed as documented. Discharge Plan Discharge Clinical Impression: CHF (congestive heart failure) Patient Disposition: Home, Self-Care Prescriptions: No Action carvedilol 25 mg tablet 25 mg PO BID Qty: 180 5RF Entresto 97-103 mg tablet 1 tab PO BID 90 Days Qty: 180 3RF Combivent Respimat 20-100 mcg/actuation mist 1 puff inhalation QID PRN (Reason: Wheezing/Sob.) 90 Days Qty: 4 0RF Rx Instructions: space evenly during waking hours citalopram 20 mg tablet 20 mg PO DAILY Jardiance 25 mg tablet 25 mg PO DAILY Xarelto 20 mg tablet 20 mg PO DAILY@1700 Rx Instructions: must administer with evening meal insulin glargine [Lantus Solostar U-100 Insulin] 100 unit/mL (3 mL) insulin pen 28 unit subcut BEDTIME furosemide [Lasix] 40 mg tablet 80 mg PO BID@0800,1400 insulin aspart U-100 100 unit/mL (3 mL) insulin pen 3 - 5 unit subcut TID atorvastatin 80 mg tablet 80 mg PO BEDTIME Print Language: Yi
[2023-08-14 18:00] LABS: MANUAL DIFF FLAG NO
[2023-08-14 18:06] LABS: Basophils Absolute Auto 0.1 X10*3/uL (0.0-0.2); Eosinophils Absolute Auto 0.2 X10*3/uL (0.0-0.4); Eosinophils Percent Auto 2.3 % (0-4); Hematocrit 45.6 % (37.0-47.0); Imm Gran Abs Auto 0.01 X10*3/uL (0.00-0.03); Imm Gran Pct Auto 0.1 % (0.0-0.4); Lymphocytes Absolute Auto 2.6 X10*3/uL (1.2-4.9); Lymphocytes Percent Auto 36.4 % (20-40); Mean Corpuscular HGB Conc 32.9 g/dl (31.0-35.0); Mean Corpuscular Hemoglobin 30.1 pg (27.0-33.0); Mean Corpuscular Volume 91.4 fL (80.0-98.0); Mean Platelet Volume 11.6 fL (9.4-12.3); Monocytes Absolute Auto 0.4 X10*3/uL (0.1-1.2); Monocytes Percent Auto 5.4 % (2-11); Neutrophils Percent Auto 54.8 % (45-73); Platelet Count 126 X10*3/uL (160-400); Red Blood Count 4.99 X10*6/uL (4.20-5.50); Red Cell Distribution Width 15.8 % (11.0-16.0); White Blood Count 7.3 X10*3/uL (4.8-10.8)
[2023-08-14 18:12] LABS: Venous Blood Gas Refer to POC result
[2023-08-14 18:12] LABS: VBG Base Excess -1.1 mmol/L; VBG HCO3 24 mmol/L (22-26); VBG pCO2 40 mmHg; VBG pH 7.37 (7.32-7.43); VBG pO2 42 mmHg
[2023-08-14 18:22] LABS: INTERNATIONAL NORM RATIO 0.9 (0.9-1.1); Prothrombin Time 11.3 SEC (11.1-13.3)
[2023-08-14 18:24] LABS: Alanine Aminotransferase 16 U/L (0-31); Albumin Level 3.7 g/dL (3.5-5.0); Alkaline Phosphatase 116 U/L (39-117); Anion Gap 11 (12-20); Aspartate Amino Transferase 24 U/L (5-31); Bilirubin Direct 0.3 mg/dL (0.0-0.5); Bilirubin Total 0.8 mg/dL (0.0-1.0); Blood Urea Nitrogen 17 mg/dL (9-16); Calcium 8.7 mg/dL (8.4-10.2); Carbon Dioxide 25 mmol/L (22-29); Chloride 110 mmol/L (96-108); Creatinine Clr Calc Pharmacy 62.3; Estimated Glomerular Filt Rate 60; Glucose Random 104 mg/dL (60-115); Magnesium 2.5 mg/dL (1.6-2.6); Potassium 3.9 mmol/L (3.3-5.1); Sodium 142 mmol/L (135-145); Total Protein 6.7 g/dL (6.5-8.0)
[2023-08-14 18:29] LABS: B Type Natriuretic Peptide 984 pg/mL (<100)
[2023-08-14 18:52] LABS: Troponin-I High Sensitivity 445.4 ng/L (<3.5-17.0)
[2023-08-14 19:07] LABS: Influenza A PCR NEGATIVE (Negative); Influenza B PCR NEGATIVE (Negative); Resp Syncy Virus RNA Qual PCR NEGATIVE (Negative); SARS COV2 PCR INHOUSE NEGATIVE (Negative)
--- NOTE | 2023-08-14 19:55 | PC.NURSE ---
Pt ambulated in department with oxygen saturation of 96-100%. Pt had to pause twice to cath her breath with no evidence of decreased oxygen saturation. Was able to ambulate back to room with standby assist.
[2023-08-14] MEDS: Furosemide 100 MG/10 ML VIAL 80 MG IVPUSH (21:40)
--- NOTE | 2023-08-14 22:03 | PC.NURSE ---
Pt ambulatory to restroom independently.
--- NOTE | 2023-08-14 22:47 | PM.IMHP ---
History of Present Illness Date of Service: 08/14/23 Attending physician on admission: Beckie Winston Chief Complaint: Shortness of breath La Nena Castro is a very pleasant 68 years old woman with past medical history significant for chronic systolic and diastolic congestive heart failure s/p biventricular ICD, restrictive lung disease, PE on Xarelto, type 2 diabetes mellitus on insulin, essential hypertension, morbid obesity, obstructive sleep apnea on CPAP and CAD s/p CABG X2 presents to the emergency department complaining of shortness on breath with minimal exertion that started yesterday associated with pressure over both lower thoracic regions. She denied chest pain, cough, fevers or chills. She denied any acute gastrointestinal or genitourinary symptoms. Denies tobacco smoking, alcohol abuse or illicit drug use. Denies recent changes in her medications or eating high salt diet. In the ED, she was found to have stable vital signs. Blood workup showed no leukocytosis. There is no lactic acidosis. Hemoglobin and platelets are normal. There are no significant electrolyte imbalances. Creatinine is 0.93. LFTs are normal. Troponin is 445.4 (437.1). BNP is 984 (prior 444). CXR showed no consolidation, edema, pleural effusion or pneumothorax. Viral testing for influenza, COVID-19 and RSV is negative. ED tx: Lasix 80 mg IV x1 Review of Systems Review of Systems: All 12 systems were reviewed and normal except as noted in HPI. [facility] Medical History Sleep apnea Presence of CardioMEMS HF system Hx of myocardial infarction Anxiety and depression Osteoarthritis Fatty liver Restrictive lung disease TAQUERIA treated with BiPAP Morbid obesity Biventricular ICD (implantable cardioverter-defibrillator) in place CAD (coronary artery disease) Non-rheumatic aortic stenosis Atherosclerotic cardiovascular disease Acute on chronic systolic and diastolic heart failure, NYHA class 3 Leukocytosis Dyspnea Transaminitis Hypoxia Congestive heart failure TAQUERIA (obstructive sleep apnea) NSVT (nonsustained ventricular tachycardia) Cardiomyopathy Chronic systolic heart failure Diabetes mellitus HLD (hyperlipidemia) HTN (hypertension) Family History Father No problems noted. Mother No problems noted. Surgical History History of incision and drainage Status post coronary artery bypass graft Stented coronary artery Hx of CABG History of cardiac cath Hx of cardiac cath Hx of cardiac cath Hx of appendectomy History of cholecystectomy Social History Household Members: Children Household Members Other:: son and daughter in law Housing: Apartment Are you a primary skin care technician to a significant other at home: No Do you presently have visiting nurse or other home services: No Alcohol intake: never Comment: chronic back pain Patient Tobacco Use Status: Former Tobacco user Quit Date: 2020 Tobacco use type: Cigarette Cigarette Packs Per Day: 1 Years Smoked: 30 e-Cigarette/Vaping Use: Former Use Second Hand Smoke Exposure: Yes Advance Directives: Yes Advance Directives on File: Yes Advance Directives Date on File: 11/07/22 service: No Current occupational status: unemployed and disabled Current occupation: rt hand Meds Allergies Allergy/AdvReac Type Severity Reaction Status Date / Time No Known Allergies Allergy Verified 08/14/23 16:38 Active Medications: Current Medications Glucose (Glucose Gel 15 Gm Gel..Gram.) 15 gm PO Q15M PRN; Protocol PRN Reason: per Hypoglycemia Standing Ord. Dextrose (D10) 250 mls @ 750 mls/hr IV Q15M PRN; Protocol PRN Reason: per Hypoglycemia Standing Ord. Insulin Human Lispro (Insulin Lispro 100 Unit/Ml 3 Ml Vial) 0 unit SUBCUT QIDACHS [facility]; Protocol Metolazone (Metolazone 2.5 Mg Tablet) 2.5 mg PO DAILY [facility] Sodium Chloride (0.9 % Sodium Chloride Flush 3 Ml Syringe) 3 ml IVFLUSH QSHIFT [facility] Home Medications ?Medication ?Instructions ?Recorded ?Confirmed ?Last Taken ?Type atorvastatin 80 mg tablet 80 mg PO BEDTIME 02/27/20 08/14/23 03/18/23 20:00 History insulin aspart U-100 100 unit/mL 3 - 5 unit subcut TID 06/26/20 03/20/23 03/19/23 06:00 History (3 mL) subcutaneous pen citalopram 20 mg tablet 20 mg PO DAILY 07/21/20 08/14/23 03/19/23 06:00 History furosemide 40 mg tablet (Lasix) 80 mg PO BID@0800,1400 0708/14/23 03/19/23 06:00 History insulin glargine 100 unit/mL (3 28 unit subcut BEDTIME 11/05/22 08/14/23 03/18/23 20:00 History mL) subcutaneous pen (Lantus Solostar U-100 Insulin) rivaroxaban 20 mg tablet (Xarelto) 20 mg PO DAILY@1700 11/05/22 03/20/23 03/18/23 20:00 History empagliflozin 25 mg tablet 25 mg PO DAILY 03/20/23 08/14/23 03/19/23 06:00 History (Jardiance) rivaroxaban 20 mg tablet (Xarelto) 20 mg PO QPM 08/14/23 08/14/23 Unknown History sacubitril 97 mg-valsartan 103 mg 1 tab PO BID 08/14/23 08/14/23 Unknown History tablet (Entresto) Physical Exam Vital Signs and Narrative: Vital Signs: Last Vital Signs Temp 97.5 F 08/14/23 21:36 Pulse 71 08/14/23 21:36 Resp 14 08/14/23 21:36 BP 154/62 H 08/14/23 21:40 Pulse Ox 96 08/14/23 21:36 O2 Del Method Room Air 08/14/23 21:36 BMI result Body Mass Index 48.2 Constitutional - Awake and Alert, No apparent distress. Cooperative. Pleasant. Obese. HEENT - Pupils equally round. Normal sclerae. Moist oral mucosa. Heart - Distant heart sounds. Lungs - Normal lung expansion, Normal respiratory effort, No respiratory distress. No tachypnea. Bibasilar crackles. No wheezing. No rhonchi. Abdomen - NT / ND; +BS; No rebound or guarding Extremities - no calf tenderness bilaterally, no swelling Musculoskeletal - Normal inspection, normal ROM Skin - Warm/Dry. No pallor. No jaundice. Neurological - Alert & oriented x3. No focal weakness grossly noted. Normal speech. Psychological - Appropriate affect Results Labs 08/14/23 17:53 08/14/23 17:53 Labs: Laboratory Results - last 24 hr 08/14/23 08/14/23 08/14/23 17:53 17:56 18:20 MCV 91.4 MCH 30.1 MCHC 32.9 RDW 15.8 Plt Count 126 L MPV 11.6 Immature Gran % (Auto) 0.1 Neut % (Auto) 54.8 Lymph % (Auto) 36.4 [place] % (Auto) 5.4 Eos % (Auto) 2.3 Baso % (Auto) 1.0 Lymph # (Auto) 2.6 [place] # (Auto) 0.4 Eos # (Auto) 0.2 Baso # (Auto) 0.1 Abs Immat Gran (auto) 0.01 Absolute Neuts (auto) 4.0 Absolute Nucleated RBC 0.000 Nucleated RBC % (auto) 0.0 PT 11.3 INR 0.9 VBG pH 7.37 VBG pCO2 40 VBG pO2 42 VBG HCO3 24 VBG O2 Saturation 71.0 VBG Base Excess -1.1 Anion Gap 11 L Estim Creat Clear Calc 62.3 Estimated GFR 60 Random Glucose 104 Lactic Acid 1.0 Calcium 8.7 Magnesium 2.5 Total Bilirubin 0.8 Direct Bilirubin 0.3 AST 24 ALT 16 Alkaline Phosphatase 116 Troponin I High Sens 445.4 H* B-Natriuretic Peptide 984 H Total Protein 6.7 Albumin 3.7 Influenza Type A (PCR) NEGATIVE Influenza Type B (PCR) NEGATIVE RSV RNA Qual (PCR) NEGATIVE SARS-CoV-2 RNA (RT-PCR) NEGATIVE Imaging Radiologist's Impressions: Impressions Chest X-Ray 08/14/23 17:55 IMPRESSION: No consolidation. Stable appearance of the chest were compared with 11/05/2022 chest radiograph. Assessment and Plan (1) Acute on chronic systolic and diastolic heart failure, NYHA class 1: Status: Acute (2) CAD (coronary artery disease): Qualifiers: Coronary Disease-Associated Artery/Lesion type: unspecified vessel or lesion type [place] vs. transplanted heart: unspecified whether [place] or transplanted heart Associated angina: without angina Qualified Code(s): I25.10 - Atherosclerotic heart disease of [place] coronary artery without angina pectoris Status: Acute (3) Diabetes mellitus: Qualifiers: Diabetes mellitus type: type 2 Diabetes mellitus extermination supervisor insulin use: with nursing home use Diabetes mellitus complication status: with other specified complication Qualified Code(s): E11.69 - Type 2 diabetes mellitus with other specified complication; Z79.4 - senior living (current) use of insulin Status: Acute (4) HLD (hyperlipidemia): Qualifiers: Hyperlipidemia type: unspecified Qualified Code(s): E78.5 - Hyperlipidemia, unspecified Status: Acute (5) HTN (hypertension): Qualifiers: Hypertension type: primary hypertension Qualified Code(s): I10 - Essential (primary) hypertension Status: Acute (6) Morbid obesity: Status: Acute (7) TAQUERIA treated with BiPAP: Status: Acute (8) Restrictive lung disease: Status: Acute Plan La Nena Castro is a very pleasant 68 years old woman admitted with: Dyspnea on exertion likely secondary to acute on chronic systolic and diastolic congestive heart failure in the setting of restrictive lung disease. s/p ICD placement CXR negative, however, pulmonary examination is remarkable for bibasilar crackles. BNP increasing. Admit to hospitalist service. Telemetry. Cardiac monitoring. Supplemental oxygen as needed to keep O2 sats above 90%. Daily weight. Strict input and output. Continue Lasix 80 mg PO bid (received one dose of Lasix IV in ED). Patient takes metolazone as needed -will order to take daily for now. Continue Jardiance, Entresto and carvedilol. Continue Combivent as needed (or alternative). Monitor BNP. Type 2 diabetes mellitus. Continue Lantus and insulin sliding scale. BG checks before meals at bedtime. On Jardiance. Essential hypertension. Continue carvedilol. Hyperlipidemia. Continue statin. Obstructive sleep apnea. Nocturnal CPAP. Hx of VTE/PE. Continue Xarelto. Morbid obesity. BMI 48.2 kg/m2. Depression. Continue citalopram. CAD s/p CABG. Continue Entresto, atorvastatin and anticoagulation. DVT prophylaxis: Xarelto Code status: Full Patient will need hospitalization for at least 2 midnights for acute on chronic systolic congestive heart failure treatment with supplemental oxygen as needed, IV lasix and close monitoring of symptoms. Quality Stroke Does the patient have a stroke diagnosis?: No VTE Prior VTE?: No VTE Risk Level:: Medical - moderate - high VTE Device Contraindication: Treatment Not Indicated VTE Drug Contraindication: N/A - Med Ordered
[2023-08-14 23:18] LABS: Glucose, Whole Blood 167 mg/dL (60-115)
[2023-08-14] MEDS: Atorvastatin Calcium 80 MG TABLET PO (23:25)
[2023-08-14] MEDS: Insulin Glargine,Hum.rec.anlog 100 UNIT/ML 10 ML VIAL 28 UNIT SUBCUT (23:26)
[2023-08-14] MEDS: Insulin Lispro 100 UNIT/ML 3 ML VIAL SUBCUT (23:26)
--- NOTE | 2023-08-14 23:40 | PC.NURSE ---
pt up to bedside commode with 1 assist.
[2023-08-15] VITALS (14 sets, daily range): BP systolic 92–148; BP diastolic 41–70; PULSE 63–75; RESP 12–20; TEMP 36–36.6; O2SAT 94–98; BMI 48.1
[2023-08-15 00:06] LABS: Troponin-I High Sensitivity 495.6 ng/L (<3.5-17.0)
[2023-08-15] MEDS: 0.9 % Sodium Chloride Flush 3 ML SYRINGE IVFLUSH ×4 (00:47→21:51)
[2023-08-15 05:43] LABS: Hematocrit 46.9 % (37.0-47.0); Hemoglobin 15.5 g/dl (12.0-16.0); Mean Corpuscular Hemoglobin 30.3 pg (27.0-33.0); Mean Corpuscular Volume 91.8 fL (80.0-98.0); Mean Platelet Volume 11.8 fL (9.4-12.3); Platelet Count 127 X10*3/uL (160-400); Red Blood Count 5.11 X10*6/uL (4.20-5.50); Red Cell Distribution Width 15.9 % (11.0-16.0); White Blood Count 6.9 X10*3/uL (4.8-10.8)
[2023-08-15 06:01] LABS: Anion Gap 11 (12-20); Blood Urea Nitrogen 17 mg/dL (9-16); Calcium 8.8 mg/dL (8.4-10.2); Carbon Dioxide 24 mmol/L (22-29); Chloride 110 mmol/L (96-108); Estimated Glomerular Filt Rate > 60; Glucose Random 89 mg/dL (60-115); Magnesium 2.5 mg/dL (1.6-2.6); Potassium 3.3 mmol/L (3.3-5.1); Sodium 142 mmol/L (135-145)
--- NOTE | 2023-08-15 06:54 | PC.NURSE ---
Report to Leslie for continued care.
[2023-08-15 07:05] LABS: Glucose, Whole Blood 92 mg/dL (60-115)
--- NOTE | 2023-08-15 07:05 | PC.NURSE ---
Pt reports no pain at this time, has no complaints. Pt requests to sleep, is on her sleep CPAP.
[2023-08-15] MEDS: Escitalopram Oxalate 10 MG TABLET PO (09:13)
[2023-08-15] MEDS: Furosemide 100 MG/10 ML VIAL 80 MG IVPUSH ×2 (09:15→17:54)
--- NOTE | 2023-08-15 09:25 | PHA.MEDREC ---
Pharmacy Consult ? Medication Reconciliation Pharmacy has completed the medication reconciliation.
[2023-08-15] MEDS: Sacubitril/Valsartan 97/103 1 TAB TABLET PO (10:00)
[2023-08-15] MEDS: carvediloL 25 MG TABLET PO (10:01)
[2023-08-15] MEDS: Empagliflozin 25 MG TABLET PO (10:01)
--- NOTE | 2023-08-15 10:32 | MHC.CM.PN ---
CM met with Patient at bedside, in the ED and addressed IMM with her (original was given to Patient and a copy will be placed on the chart). Patient lives in an apartment with her Son/HCP/Alfred, her [id number], Daughter and adult Granddaughter and she required no services nor DME CHIEF CLINICAL DIETITIAN. Home self care is the goal and CM has initiated and will follow for dc planning. Patient will need a Lyft for transport home. PCP is Dr. Carmina Martins/Carmen in [place].
--- NOTE | 2023-08-15 10:56 | PM.CNCAR ---
History of Present Illness History of Present Illness Date of Service: 08/15/23 Chief complaint: Diff breathing, 92% RA while walking, 2 lpm NC Narrative: La Nena is here for increasing shortness of breath. She carries a diagnosis of congestive heart failure and she also has a CardioMEMS device in place. Per last appointment from few months ago, stated to have chronic ischemic/nonischemic systolic and diastolic congestive heart failure with last ejection fraction of 45-50%. From coronary standpoint, history of coronary disease with two-vessel bypass. Has a Bi V ICD in place. Also has [id number] aortic stenosis per documentation as well as obstructive sleep apnea. Currently, admission is because of the fact that she is feeling short of breath over the last couple of days. She states it is a recent development and she was fine a week before. She is in the ER resting in bed and states she has not noticed a major change although she is putting out a lot of urine after the IV diuretics. No chest pains or any other symptoms. Review of Systems Review of Systems: Yes all other systems are reviewed and are negative Constitutional: Constitutional: Reports as per HPI and Reports no additional constitutional complaints Eyes: Eyes: Reports as per HPI and Denies no additional eye complaints ENT: Denies system reviewed and no additional complaints, except as documented and Reports as per HPI Cardiovascular: Cardiovascular: Reports as per HPI, Reports no additional cardiovascular complaints, Denies acrocyanosis, Denies cool extremities, Denies chest pain, Denies leg edema, Denies lightheadedness, Denies palpitations and Reports dyspnea Respiratory: Respiratory: Reports as per HPI, Denies no additional respiratory complaints and Reports dyspnea Gastrointestinal: Gastrointestinal: Reports as per HPI and Denies no additional gastrointestinal complaints Genitourinary: Genitourinary: Reports as per HPI Musculoskeletal: Musculoskeletal: Reports no additional musculoskeletal complaints and Reports as per HPI Integumentary/Breasts: Skin/Breast: Reports system reviewed and no additional complaints, except as docu Neurologic: Reports system reviewed and no additional complaints, except as documented and Reports as per HPI Psychiatric: Psychiatric: Reports no additional psychiatric complaints and Reports as per HPI Endocrine: Endocrine: Reports no additional endocrine complaints, Reports as per HPI and Denies palpitations Hematologic/Lymphatic: Hematologic/Lymphatic: Reports no additional hematologic/lymphatic complaints and Reports as per HPI Allergic/Immunologic: Allergic/Immunologic: Reports no additional allergic/immunologic complaints and Reports as per HPI [facility] Past Medical History Medical History (Updated 08/15/23 @ 11:01 by Korey Cazares MD) Sleep apnea Presence of CardioMEMS HF system Hx of myocardial infarction Anxiety and depression Osteoarthritis Fatty liver Restrictive lung disease [place] treated with BiPAP Morbid obesity Biventricular ICD (implantable cardioverter-defibrillator) in place CAD (coronary artery disease) Non-rheumatic aortic stenosis Atherosclerotic cardiovascular disease Acute on chronic systolic and diastolic heart failure, NYHA class 3 Leukocytosis Dyspnea Transaminitis Hypoxia Congestive heart failure [place] (obstructive sleep apnea) NSVT (nonsustained ventricular tachycardia) Cardiomyopathy Chronic systolic heart failure Diabetes mellitus HLD (hyperlipidemia) HTN (hypertension) Family History Family History Father No problems noted. Mother No problems noted. Surgical History Surgical History History of incision and drainage Status post coronary artery bypass graft Stented coronary artery Hx of CABG History of cardiac cath Hx of cardiac cath Hx of cardiac cath Hx of appendectomy History of cholecystectomy Social History Social History Household Members: Children Household Members Other:: son and daughter in law Housing: Apartment Are you a primary wound care specialist to a significant other at home: No Do you presently have visiting nurse or other home services: No Alcohol intake: never Comment: chronic back pain Patient Tobacco Use Status: Former Tobacco user Quit Date: 2020 Tobacco use type: Cigarette Cigarette Packs Per Day: 1 Years Smoked: 30 e-Cigarette/Vaping Use: Former Use Second Hand Smoke Exposure: Yes Advance Directives: Yes Advance Directives on File: Yes Advance Directives Date on File: 11/07/22 Nutrition Risks: No Nutritional Risk service: No Current occupational status: unemployed and disabled Current occupation: rt hand Meds Allergies Allergy/AdvReac Type Severity Reaction Status Date / Time No Known Allergies Allergy Verified 08/14/23 16:38 Active Medications: Current Medications Albuterol/Ipratropium (Albuterol/Iprat 2.5/0.5mg 3 Ml Ampul.Neb) 3 ml INHALE Q6H PRN PRN Reason: Wheezing/Sob. Atorvastatin Calcium (Atorvastatin Calcium 80 Mg Tablet) 80 mg PO BEDTIME [facility] Last Admin: 08/14/23 23:25 Dose: 80 mg Carvedilol (Carvedilol 25 Mg Tablet) 25 mg PO BID [facility]; Protocol Last Admin: 08/15/23 10:01 Dose: 25 mg Empagliflozin (Empagliflozin 25 Mg Tablet) 25 mg PO DAILY [facility] Last Admin: 08/15/23 10:01 Dose: 25 mg Escitalopram Oxalate (Escitalopram Oxalate 10 Mg Tablet) 10 mg PO DAILY [facility] Last Admin: 08/15/23 09:13 Dose: 10 mg Furosemide (Furosemide 100 Mg/10 Ml Vial) 80 mg IVPUSH BID@0900,1800 [facility]; Protocol Last Admin: 08/15/23 09:15 Dose: 80 mg Glucose (Glucose Gel 15 Gm Gel..Gram.) 15 gm PO Q15M PRN; Protocol PRN Reason: per Hypoglycemia Standing Ord. Dextrose (D10) 250 mls @ 750 mls/hr IV Q15M PRN; Protocol PRN Reason: per Hypoglycemia Standing Ord. Insulin Glargine (Insulin Glargine,Hum.Rec.Anlog 100 Unit/Ml 10 Ml Vial) 28 unit SUBCUT BEDTIME [facility] Last Admin: 08/14/23 23:26 Dose: 28 unit Insulin Human Lispro (Insulin Lispro 100 Unit/Ml 3 Ml Vial) 0 unit SUBCUT QIDACHS [facility]; Protocol Last Admin: 08/15/23 07:02 Dose: Not Given Metolazone (Metolazone 2.5 Mg Tablet) 2.5 mg PO DAILY PRN PRN Reason: Edema Rivaroxaban (Rivaroxaban 20 Mg Tablet) 20 mg PO BEDTIME [facility] Sacubitril/Valsartan (Sacubitril/Valsartan 97/103 1 Tab Tablet) 1 tab PO BID [facility]; Protocol Last Admin: 08/15/23 10:00 Dose: 1 tab Sodium Chloride (0.9 % Sodium Chloride Flush 3 Ml Syringe) 3 ml IVFLUSH QSHIFT [facility] Last Admin: 08/15/23 09:14 Dose: 3 ml Home Medications ?Medication ?Instructions ?Recorded ?Confirmed ?Last Taken ?Type atorvastatin 80 mg tablet 80 mg PO BEDTIME 02/27/20 08/15/23 2 Days Ago History ~08/13/23 insulin aspart U-100 100 unit/mL 1 sliding scale dose subcut TIDAC 06/26/20 08/15/23 2 Days Ago History (3 mL) subcutaneous pen ~08/13/23 citalopram 20 mg tablet 20 mg PO DAILY 07/21/20 08/15/23 2 Days Ago History ~08/13/23 furosemide 40 mg tablet (Lasix) 80 mg PO BID@0800,1400 11/05/22 08/15/23 2 Days Ago History ~08/13/23 insulin glargine 100 unit/mL (3 28 unit subcut BEDTIME 11/05/22 08/15/23 2 Days Ago History mL) subcutaneous pen (Lantus ~08/13/23 Solostar U-100 Insulin) rivaroxaban 20 mg tablet (Xarelto) 20 mg PO DAILY@1700 08/14/23 08/15/23 2 Days Ago History ~08/13/23 sacubitril 97 mg-valsartan 103 mg 1 tab PO BID 08/14/23 08/15/23 2 Days Ago History tablet (Entresto) ~08/13/23 diphenhydramine HCl 50 mg/30 mL 50 mg PO BEDTIME PRN Sleep 08/15/23 08/15/23 Unknown History oral liquid (ZzzQuil) empagliflozin 25 mg tablet 25 mg PO DAILY 08/15/23 08/15/23 2 Days Ago History (Jardiance) ~08/13/23 metolazone 2.5 mg tablet 2.5 mg PO DAILY PRN Edema 08/15/23 08/15/23 Unknown History nicotine 14 mg/24 hr daily 1 patch topical DAILY 08/15/23 08/15/23 2 Days Ago History transdermal patch ~08/13/23 Physical Exam Vital Signs: Vital Signs: Last Vital Signs Temp 97.8 F 08/15/23 04:13 Pulse 75 08/15/23 10:01 Resp 18 08/15/23 09:19 BP 128/41 L 08/15/23 10:01 Pulse Ox 97 08/15/23 09:19 O2 Del Method Room Air 08/15/23 09:19 BMI result Body Mass Index 48.2 Const: General: comfortable and no acute distress Orientation/consciousness: patient oriented x3 HEENT: Other: Unremarkable Head: Yes normal to inspection Neck: Neck: Yes normal visual inspection Chest: Chest palpation & inspection: normal inspection of the chest Resp: Auscultation: clear to auscultation bilaterally Cardio: Palpation: normal PMI Heart sounds: S1 normal heart sound present, S2 normal heart sound present, no gallops, no murmurs and no rubs GI: Palpation (GI): Soft to palpation Back/Spine/Pelvis: Other: unremarkable Skin: General skin exam: no rashes or lesions noted Neuro: General: patient oriented x3 Extrem: General: Yes normal to inspection Psych: Mental Status: mental status grossly normal Objective Labs and Meds 08/15/23 05:14 08/15/23 05:14 Lab results: Laboratory Results - last 24 hr 08/14/23 08/14/23 08/14/23 17:53 17:56 18:20 WBC 7.3 RBC 4.99 Hgb 15.0 Hct 45.6 MCV 91.4 MCH 30.1 MCHC 32.9 RDW 15.8 Plt Count 126 L MPV 11.6 Immature Gran % (Auto) 0.1 Neut % (Auto) 54.8 Lymph % (Auto) 36.4 [place] % (Auto) 5.4 Eos % (Auto) 2.3 Baso % (Auto) 1.0 Lymph # (Auto) 2.6 [place] # (Auto) 0.4 Eos # (Auto) 0.2 Baso # (Auto) 0.1 Abs Immat Gran (auto) 0.01 Absolute Neuts (auto) 4.0 Absolute Nucleated RBC 0.000 Nucleated RBC % (auto) 0.0 PT 11.3 INR 0.9 VBG pH 7.37 VBG pCO2 40 VBG pO2 42 VBG HCO3 24 VBG O2 Saturation 71.0 VBG Base Excess -1.1 Sodium 142 Potassium 3.9 Chloride 110 H Carbon Dioxide 25 Anion Gap 11 L BUN 17 H Creatinine 0.93 Estim Creat Clear Calc 62.3 Estimated GFR 60 POC Glucose Random Glucose 104 Lactic Acid 1.0 Calcium 8.7 Magnesium 2.5 Total Bilirubin 0.8 Direct Bilirubin 0.3 AST 24 ALT 16 Alkaline Phosphatase 116 Troponin I High Sens 445.4 H* B-Natriuretic Peptide 984 H Total Protein 6.7 Albumin 3.7 Influenza Type A (PCR) NEGATIVE Influenza Type B (PCR) NEGATIVE RSV RNA Qual (PCR) NEGATIVE SARS-CoV-2 RNA (RT-PCR) NEGATIVE 08/14/23 08/14/23 08/15/23 23:10 23:14 05:14 WBC 6.9 RBC 5.11 Hgb 15.5 Hct 46.9 MCV 91.8 MCH 30.3 MCHC 33.0 RDW 15.9 Plt Count 127 L MPV 11.8 Immature Gran % (Auto) Neut % (Auto) Lymph % (Auto) [place] % (Auto) Eos % (Auto) Baso % (Auto) Lymph # (Auto) [place] # (Auto) Eos # (Auto) Baso # (Auto) Abs Immat Gran (auto) Absolute Neuts (auto) Absolute Nucleated RBC 0.000 Nucleated RBC % (auto) 0.0 PT INR VBG pH VBG pCO2 VBG pO2 VBG HCO3 VBG O2 Saturation VBG Base Excess Sodium 142 Potassium 3.3 Chloride 110 H Carbon Dioxide 24 Anion Gap 11 L BUN 17 H Creatinine 0.92 Estim Creat Clear Calc 63.0 Estimated GFR > 60 POC Glucose 167 H Random Glucose 89 Lactic Acid Calcium 8.8 Magnesium 2.5 Total Bilirubin Direct Bilirubin AST ALT Alkaline Phosphatase Troponin I High Sens 495.6 H* B-Natriuretic Peptide Total Protein Albumin Influenza Type A (PCR) Influenza Type B (PCR) RSV RNA Qual (PCR) SARS-CoV-2 RNA (RT-PCR) 08/15/23 07:01 WBC RBC Hgb Hct MCV MCH MCHC RDW Plt Count MPV Immature Gran % (Auto) Neut % (Auto) Lymph % (Auto) [place] % (Auto) Eos % (Auto) Baso % (Auto) Lymph # (Auto) [place] # (Auto) Eos # (Auto) Baso # (Auto) Abs Immat Gran (auto) Absolute Neuts (auto) Absolute Nucleated RBC Nucleated RBC % (auto) PT INR VBG pH VBG pCO2 VBG pO2 VBG HCO3 VBG O2 Saturation VBG Base Excess Sodium Potassium Chloride Carbon Dioxide Anion Gap BUN Creatinine Estim Creat Clear Calc Estimated GFR POC Glucose 92 Random Glucose Lactic Acid Calcium Magnesium Total Bilirubin Direct Bilirubin AST ALT Alkaline Phosphatase Troponin I High Sens B-Natriuretic Peptide Total Protein Albumin Influenza Type A (PCR) Influenza Type B (PCR) RSV RNA Qual (PCR) SARS-CoV-2 RNA (RT-PCR) ECG Interpretation: EKG with underlying atrial sensed biventricular paced rhythm at 70/Min. Imaging Radiologist's impression: Impressions Chest X-Ray 08/14/23 17:55 IMPRESSION: No consolidation. Stable appearance of the chest were compared with 11/05/2022 chest radiograph. Assessment and Plan (1) Acute on chronic systolic and diastolic heart failure, NYHA class 3: Status: Acute Plan Cardiac data reviewed. EKG as described above with atrial sensed, biventricular paced rhythm. Cardiac BNP is 984. Last February, it was 444. Hence there is a change. High sensitivity troponin is 445 followed by 495 but she is running high even in prior admissions where it has been in the 400s. Clinically, she does not have any ACS type symptoms. Chest x-ray without any acute abnormality. Listed home meds include carvedilol, Entresto, Lasix, metolazone p.r.n., Jardiance. Hence overall on a good regimen. We can diurese her for another day or so with IV diuretics. Patient states she would like to be discharged soon but should probably stay at least another day. Will need to get CardioMEMS interrogated either remotely or on Thursday. We will also need a repeat echocardiogram, again either Thursday or as an outpatient. We will follow-up with you. Discussed with Dr. Booth. Procedures Date of Service Date of Service: 08/15/23
[2023-08-15 11:44] LABS: Glucose, Whole Blood 94 mg/dL (60-115)
--- NOTE | 2023-08-15 15:34 | P.PNIM_ITS ---
Subjective Subjective Date of Service: 08/15/23 Interval History: chf execerbation Review of Systems sob seems improving denies any chest pain or nausea or vomitin Physical Exam 2 Vital Signs: Vital Signs: Last Vital Signs Temp 96.9 F 08/15/23 15:21 Pulse 66 08/15/23 15:21 Resp 20 08/15/23 15:21 BP 92/44 L 08/15/23 15:21 Pulse Ox 96 08/15/23 15:21 O2 Del Method Room Air 08/15/23 15:21 BMI result Body Mass Index 48.1 Appearance: Alert.? Oriented X3.?. cvs: rrr, [id number] , no murmur res: air entry seems improving , few paint scattered rales. abd: no rebound or guarding ,nt, bs present. ext pulses present , no cyanosis . neuro: axo3 , nonfocal. Objective Data Active Medications Albuterol/Ipratropium (Albuterol/Iprat 2.5/0.5mg 3 Ml Ampul.Neb) 3 ml INHALE Q6H PRN PRN Reason: Wheezing/Sob. Atorvastatin Calcium (Atorvastatin Calcium 80 Mg Tablet) 80 mg PO BEDTIME [facility] Last Admin: 08/14/23 23:25 Dose: 80 mg Documented By: LEAH Carvedilol (Carvedilol 25 Mg Tablet) 25 mg PO BID [facility]; Protocol Last Admin: 08/15/23 10:01 Dose: 25 mg Documented By: EUNICE Empagliflozin (Empagliflozin 25 Mg Tablet) 25 mg PO DAILY [facility] Last Admin: 08/15/23 10:01 Dose: 25 mg Documented By: EUNICE Escitalopram Oxalate (Escitalopram Oxalate 10 Mg Tablet) 10 mg PO DAILY [facility] Last Admin: 08/15/23 09:13 Dose: 10 mg Documented By: EUNICE Furosemide (Furosemide 100 Mg/10 Ml Vial) 80 mg IVPUSH BID@0900,1800 [facility]; Protocol Last Admin: 08/15/23 09:15 Dose: 80 mg Documented By: EUNICE Glucose (Glucose Gel 15 Gm Gel..Gram.) 15 gm PO Q15M PRN; Protocol PRN Reason: per Hypoglycemia Standing Ord. Dextrose (D10) 250 mls @ 750 mls/hr IV Q15M PRN; Protocol PRN Reason: per Hypoglycemia Standing Ord. Insulin Glargine (Insulin Glargine,Hum.Rec.Anlog 100 Unit/Ml 10 Ml Vial) 28 unit SUBCUT BEDTIME [facility] Last Admin: 08/14/23 23:26 Dose: 28 unit Documented By: LEAH Insulin Human Lispro (Insulin Lispro 100 Unit/Ml 3 Ml Vial) 0 unit SUBCUT QIDACHS [facility]; Protocol Last Admin: 08/15/23 11:42 Dose: Not Given Documented By: EUNICE Non-Admin Reason: No Insulin Coverage Metolazone (Metolazone 2.5 Mg Tablet) 2.5 mg PO DAILY PRN PRN Reason: Edema Rivaroxaban (Rivaroxaban 20 Mg Tablet) 20 mg PO BEDTIME [facility] Sacubitril/Valsartan (Sacubitril/Valsartan 97/103 1 Tab Tablet) 1 tab PO BID [facility]; Protocol Last Admin: 08/15/23 10:00 Dose: 1 tab Documented By: EUNICE Sodium Chloride (0.9 % Sodium Chloride Flush 3 Ml Syringe) [address] [facility] Last Admin: 08/15/23 09:14 Dose: 3 ml Documented By: EUNICE Labs 08/15/23 05:14 08/15/23 05:14 Labs: Laboratory Results - last 24 hr 08/14/23 08/14/23 08/14/23 17:53 17:56 18:20 MCV 91.4 MCH 30.1 MCHC 32.9 RDW 15.8 Plt Count 126 L MPV 11.6 Immature Gran % (Auto) 0.1 Neut % (Auto) 54.8 Lymph % (Auto) 36.4 [place] % (Auto) 5.4 Eos % (Auto) 2.3 Baso % (Auto) 1.0 Lymph # (Auto) 2.6 [place] # (Auto) 0.4 Eos # (Auto) 0.2 Baso # (Auto) 0.1 Abs Immat Gran (auto) 0.01 Absolute Neuts (auto) 4.0 Absolute Nucleated RBC 0.000 Nucleated RBC % (auto) 0.0 PT 11.3 INR 0.9 VBG pH 7.37 VBG pCO2 40 VBG pO2 42 VBG HCO3 24 VBG O2 Saturation 71.0 VBG Base Excess -1.1 Anion Gap 11 L Estim Creat Clear Calc 62.3 Estimated GFR 60 POC Glucose Random Glucose 104 Lactic Acid 1.0 Calcium 8.7 Magnesium 2.5 Total Bilirubin 0.8 Direct Bilirubin 0.3 AST 24 ALT 16 Alkaline Phosphatase 116 Troponin I High Sens 445.4 H* B-Natriuretic Peptide 984 H Total Protein 6.7 Albumin 3.7 Influenza Type A (PCR) NEGATIVE Influenza Type B (PCR) NEGATIVE RSV RNA Qual (PCR) NEGATIVE SARS-CoV-2 RNA (RT-PCR) NEGATIVE 08/14/23 08/14/23 08/15/23 23:10 23:14 05:14 MCV 91.8 MCH 30.3 MCHC 33.0 RDW 15.9 Plt Count 127 L MPV 11.8 Immature Gran % (Auto) Neut % (Auto) Lymph % (Auto) [place] % (Auto) Eos % (Auto) Baso % (Auto) Lymph # (Auto) [place] # (Auto) Eos # (Auto) Baso # (Auto) Abs Immat Gran (auto) Absolute Neuts (auto) Absolute Nucleated RBC 0.000 Nucleated RBC % (auto) 0.0 PT INR VBG pH VBG pCO2 VBG pO2 VBG HCO3 VBG O2 Saturation VBG Base Excess Anion Gap 11 L Estim Creat Clear Calc 63.0 Estimated GFR > 60 POC Glucose 167 H Random Glucose 89 Lactic Acid Calcium 8.8 Magnesium 2.5 Total Bilirubin Direct Bilirubin AST ALT Alkaline Phosphatase Troponin I High Sens 495.6 H* B-Natriuretic Peptide Total Protein Albumin Influenza Type A (PCR) Influenza Type B (PCR) RSV RNA Qual (PCR) SARS-CoV-2 RNA (RT-PCR) 08/15/23 08/15/23 07:01 11:40 MCV MCH MCHC RDW Plt Count MPV Immature Gran % (Auto) Neut % (Auto) Lymph % (Auto) [place] % (Auto) Eos % (Auto) Baso % (Auto) Lymph # (Auto) [place] # (Auto) Eos # (Auto) Baso # (Auto) Abs Immat Gran (auto) Absolute Neuts (auto) Absolute Nucleated RBC Nucleated RBC % (auto) PT INR VBG pH VBG pCO2 VBG pO2 VBG HCO3 VBG O2 Saturation VBG Base Excess Anion Gap Estim Creat Clear Calc Estimated GFR POC Glucose 92 94 Random Glucose Lactic Acid Calcium Magnesium Total Bilirubin Direct Bilirubin AST ALT Alkaline Phosphatase Troponin I High Sens B-Natriuretic Peptide Total Protein Albumin Influenza Type A (PCR) Influenza Type B (PCR) RSV RNA Qual (PCR) SARS-CoV-2 RNA (RT-PCR) Assessment and Plan (1) Acute on chronic systolic and diastolic heart failure, NYHA class 3: Status: Acute Assessment and Plan: 68 years old woman admitted with: Dyspnea on exertion likely secondary to acute on chronic systolic and diastolic congestive heart failure in the setting of restrictive lung disease. s/p ICD placement CXR negative, however, pulmonary examination is remarkable for bibasilar crackles. BNP increasing. Admit to hospitalist service. Telemetry. Cardiac monitoring. Supplemental oxygen as needed to keep O2 sats above 90%. plan: Daily weight. Strict input and output. Continue Lasix 80 mg PO bid (received one dose of Lasix IV in ED). Continue Jardiance, Entresto and carvedilol. Continue Combivent as needed (or alternative). Monitor BNP. Type 2 diabetes mellitus. boderline fs: hold Lantus and adjusted insulin sliding scale -avoid coverage below 200 mg/dl Essential hypertension. hold carvedilol /enterso due to boderline bp. Hyperlipidemia. Continue statin. Obstructive sleep apnea. Nocturnal CPAP. Hx of VTE/PE. Continue Xarelto. Morbid obesity. BMI 48.2 kg/m2. Depression. Continue citalopram. CAD s/p CABG. hold Entresto, atorvastatin and anticoagulation. DVT prophylaxis: Xarelto Code status: Full Ongoing need hospitalization : for acute on chronic systolic congestive heart failure treatment with supplemental oxygen as needed, IV lasix and close monitoring of symptoms,moniter renal function and electrolytes. Quality Stroke Does the patient have a stroke diagnosis?: No VTE Prior VTE?: No VTE Risk Level:: Medical - moderate - high VTE Device Contraindication: Treatment Not Indicated VTE Drug Contraindication: N/A - Med Ordered
[2023-08-15 16:00] LABS: Glucose, Whole Blood 174 mg/dL (60-115)
[2023-08-15] MEDS: Acetaminophen 325 MG TABLET 650 MG PO (18:15)
[2023-08-15 20:42] LABS: Glucose, Whole Blood 159 mg/dL (60-115)
[2023-08-15] MEDS: Atorvastatin Calcium 80 MG TABLET PO (21:50)
[2023-08-15] MEDS: Rivaroxaban 20 MG TABLET PO (21:50)
[2023-08-16 03:35] VITALS: BP 109/56; PULSE 62; RESP 20; TEMP 36.6; O2SAT 96
[2023-08-16 03:47] VITALS: BP 114/64; PULSE 68; RESP 19; TEMP 36.8; O2SAT 96
[2023-08-16 07:24] VITALS: BP 105/53; PULSE 65; RESP 19; TEMP 36.3; O2SAT 95
[2023-08-16 07:31] LABS: Glucose, Whole Blood 137 mg/dL (60-115)
[2023-08-16 07:56] LABS: B Type Natriuretic Peptide 158 pg/mL (<100)
[2023-08-16] MEDS: Nicotine 14 MG PATCH.TD24 TRANSDERMA (08:13)
[2023-08-16] MEDS: Escitalopram Oxalate 10 MG TABLET PO (08:13)
[2023-08-16] MEDS: Empagliflozin 25 MG TABLET PO (08:13)
[2023-08-16] MEDS: 0.9 % Sodium Chloride Flush 3 ML SYRINGE IVFLUSH (08:16)
[2023-08-16 08:37] LABS: Anion Gap 15 (12-20); Blood Urea Nitrogen 18 mg/dL (9-16); Calcium 9.1 mg/dL (8.4-10.2); Carbon Dioxide 24 mmol/L (22-29); Chloride 106 mmol/L (96-108); Creatinine Clr Calc Pharmacy 51.3; Estimated Glomerular Filt Rate 48; Glucose Random 126 mg/dL (60-115); Potassium 3.1 mmol/L (3.3-5.1); Sodium 142 mmol/L (135-145)
[2023-08-16 09:16] LABS: Magnesium 2.4 mg/dL (1.6-2.6)
--- NOTE | 2023-08-16 09:57 | PM.PNCARD ---
Subjective Subjective Date of Service: 08/16/23 Interval history: Patient states she feels fine. Shortness of breath is back to normal. She would like to go home. Review of Systems Review of Systems Yes all other systems are reviewed and are negative Constitutional: Reports as per HPI and Reports no additional constitutional complaints Eyes: Reports as per HPI and Denies no additional eye complaints Denies system reviewed and no additional complaints, except as documented and Reports as per HPI Cardiovascular: Reports as per HPI, Reports no additional cardiovascular complaints, Denies acrocyanosis, Denies cool extremities, Denies chest pain, Denies leg edema, Denies lightheadedness, Denies palpitations and Denies dyspnea Respiratory: Reports as per HPI, Denies no additional respiratory complaints and Denies dyspnea Gastrointestinal: Reports as per HPI and Denies no additional gastrointestinal complaints Genitourinary: Reports as per HPI Musculoskeletal: Reports no additional musculoskeletal complaints and Reports as per HPI Skin/Breast: Reports system reviewed and no additional complaints, except as docu Reports system reviewed and no additional complaints, except as documented and Reports as per HPI Psychiatric: Reports no additional psychiatric complaints and Reports as per HPI Endocrine: Reports no additional endocrine complaints, Reports as per HPI and Denies palpitations Hematologic/Lymphatic: Reports no additional hematologic/lymphatic complaints and Reports as per HPI Allergic/Immunologic: Reports no additional allergic/immunologic complaints and Reports as per HPI Physical Exam Vital Signs: Last Vital Signs Temp 97.4 F 08/16/23 07:24 Pulse 65 08/16/23 07:24 Resp 19 08/16/23 07:24 BP 105/53 L 08/16/23 07:24 Pulse Ox 95 08/16/23 07:24 O2 Del Method Room Air 08/16/23 07:24 O2 Flow Rate 2 08/16/23 03:47 BMI result Body Mass Index 48.1 Const General: comfortable and no acute distress Orientation/consciousness: patient oriented x3 HEENT Other: Unremarkable Head: Yes normal to inspection Neck Neck: Yes normal visual inspection Chest Chest palpation & inspection: normal inspection of the chest Resp Auscultation: clear to auscultation bilaterally Cardio Palpation: normal PMI Heart sounds: S1 normal heart sound present, S2 normal heart sound present, no gallops, no murmurs and no rubs GI Palpation (GI): Soft to palpation Back/Spine/Pelvis Other: unremarkable Skin General skin exam: no rashes or lesions noted Neuro General: patient oriented x3 Extrem General: Yes normal to inspection Psych Mental Status: mental status grossly normal Objective Labs and Meds 08/15/23 05:14 08/16/23 08:19 Lab results: Laboratory Results - last 24 hr 08/15/23 08/15/23 08/15/23 11:40 15:58 20:34 Sodium Potassium Chloride Carbon Dioxide Anion Gap BUN Creatinine Estim Creat Clear Calc Estimated GFR POC Glucose 94 174 H 159 H Random Glucose Calcium Magnesium B-Natriuretic Peptide 08/16/23 08/16/23 08/16/23 06:41 07:28 08:19 Sodium 142 Potassium 3.1 L Chloride 106 Carbon Dioxide 24 Anion Gap 15 BUN 18 H Creatinine 1.13 Estim Creat Clear Calc 51.3 Estimated GFR 48 POC Glucose 137 H Random Glucose 126 H Calcium 9.1 Magnesium 2.4 B-Natriuretic Peptide 158 H Progress Note: A&P Assessment and plan (1) Acute on chronic systolic and diastolic heart failure, NYHA class 3: Status: Acute Plan Cardiac data reviewed. EKG with atrial sensed, biventricular paced rhythm. Cardiac BNP is 984. Last February, it was 444. Hence there is a change. High sensitivity troponin is 445 followed by 495 but she is running high even in prior admissions where it has been in the 400s. Clinically, she does not have any ACS type symptoms. Chest x-ray without any acute abnormality. Listed home meds include carvedilol, Entresto, Lasix, metolazone p.r.n., Jardiance. Hence overall on a good regimen. She received IV diuretics and states that she is back to normal self and would like to get discharged home. We will arrange CardioMEMS interrogation remotely and make appropriate changes beyond that. Follow-up will be arranged. Discussed with Dr. Booth. Time Spent With Patient Time: Total time managing care of this patient today ____ minutes. Progress Note: Quality Stroke Does the patient have a stroke diagnosis?: No Procedures Date of Service Date of Service: 08/16/23
--- NOTE | 2023-08-16 11:07 | P.DS_ITS ---
DS: Providers Provider Date of Service: 08/16/23 Date of admission: 08/14/23 22:28 Date of discharge: 08/16/23 Primary care physician: Nonstaff Physician Consults: 08/15/23 08:18 Consult to Cardiology Routine Consulting Provider: [facility] Reason for consultation: chf excerebation/elevated troponins Has provider been notified: No Attending physician on discharge: Tay Booth Discharging clinician: Tay Booth DS: Diagnosis Discharge Diagnosis (1) Acute on chronic systolic and diastolic heart failure, NYHA class 3: Status: Acute DS: Summary Hospital Course Hospital Course: 68 years old woman with past medical history significant for chronic systolic and diastolic congestive heart failure s/p biventricular ICD, restrictive lung disease, PE on Xarelto, type 2 diabetes mellitus on insulin, essential hypertension, morbid obesity, obstructive sleep apnea on CPAP and CAD s/p CABG X2 presents to the emergency department complaining of shortness on breath with minimal exertion that started yesterday associated with pressure over both lower thoracic regions. She denied chest pain, cough, fevers or chills. She denied any acute gastrointestinal or genitourinary symptoms. Denies tobacco smoking, alcohol abuse or illicit drug use. Denies recent changes in her medications or eating high salt diet. In the ED, she was found to have stable vital signs. Blood workup showed no leukocytosis. There is no lactic acidosis. Hemoglobin and platelets are normal. There are no significant electrolyte imbalances. Creatinine is 0.93. LFTs are normal. Troponin is 445.4 (437.1). BNP is 984 (prior 444). CXR showed no consolidation, edema, pleural effusion or pneumothorax. Viral testing for influenza, COVID-19 and RSV is negative. ED tx: Lasix 80 mg IV x1. Hospital course: Patient was admitted for acute on chronic CHF exacerbation started on IV Lasix, found elevated BNP and chest x-ray-seems fine: Patient was started on IV Lasix as above, diuresed well, BNP improving, shortness of breath resolved, seen by Cardiology discussed patient will be going home with her home medications and diuretics. CHF education given. If gains weight 2 lb or more in a week may need further adjustment of diuretic outpatient. Advised to compliance with her medications and diet. Mild hypokalemia: Secondary to diuresis: Repleted and resolved, given home supply of potassium 10 mEq daily for 1 week. Monitor renal function electrolytes outpatient. Diabetes: Fingersticks are fluctuating from 100- 170s: Will adjust her Lantus to 5 units. Continue current other medications. Diabetic education given, monitor fingersticks at home if persistently above 200 range may need further adjustment of Lantus out patiently. plan: Continue home dose of Lasix Monitor BMP, potassium 10 mEq daily for 1 week-Further use patiently after checking BMP. Lantus adjusted to 5 units,monitor fingersticks at home if persistently above 200 range may need further adjustment of Lantus out patiently. CHF and diabetic education given. Above management discussed with the patient detail length she understand and in agreement with the above plan, time spent 40 minute. Time Attestation Total time managing care of this patient today: 40 mintues. Discharge Coordination Time (in mins): 40 min Quality: Safe Use of Opioids Does Pt have an Active Cancer Diagnosis on the Problem List?: No Quality: Stroke Does the patient have a stroke diagnosis?: No Physical Exam Vital Signs: Vital Signs: Last Vital Signs Temp 97.4 F 08/16/23 07:24 Pulse 65 08/16/23 07:24 Resp 19 08/16/23 07:24 BP 105/53 L 08/16/23 07:24 Pulse Ox 95 08/16/23 07:24 O2 Del Method Room Air 08/16/23 07:24 O2 Flow Rate 2 08/16/23 03:47 BMI result Body Mass Index 48.1 Appearance: Alert.? Oriented X3.? . cvs: rrr, [id number] , no murmur res: clear to auscultation ,no rhonchii or wheezing abd: no rebound or guarding ,nt, bs present. ext pulses present , no cyanosis . neuro: axo3 , nonfocal. DS: Data Data Completed and Pending Completed studies during hospitalization [Text1]: Procedures Assistance with Respiratory Ventilation, Less than 24 Consecutive Hours, Continuous Positive Airway Pressure (03/19/23) Labs on day of discharge: Laboratory Results - last 24 hr 08/15/23 08/15/23 08/15/23 11:40 15:58 20:34 Sodium Potassium Chloride Carbon Dioxide Anion Gap BUN Creatinine Estim Creat Clear Calc Estimated GFR POC Glucose 94 174 H 159 H Random Glucose Calcium Magnesium B-Natriuretic Peptide 0408/16/23 08/16/23 06:41 07:28 08:19 Sodium 142 Potassium 3.1 L Chloride 106 Carbon Dioxide 24 Anion Gap 15 BUN 18 H Creatinine 1.13 Estim Creat Clear Calc 51.3 Estimated GFR 48 POC Glucose 137 H Random Glucose 126 H Calcium 9.1 Magnesium 2.4 B-Natriuretic Peptide 158 H Preliminary micro results at discharge 08/14/23 18:20 Blood Culture - Preliminary Blood - Venous No growth after 24 hours. 08/14/23 17:53 Blood Culture - Preliminary Blood - Venous No growth after 24 hours. Imaging Chest x-ray: Radiologist's impression: ITS Impressions Chest X-Ray 08/14/23 17:55 IMPRESSION: No consolidation. Stable appearance of the chest were compared with 11/05/2022 chest radiograph. Discharge Plan Discharge Anticipated Discharge Date/Time: 08/16/23 10:56 Patient Disposition: Home, Self-Care Discharge Diagnosis: chf execerebation, hypokalemia Referrals: Physician,Nonstaff [Primary Care Provider] - 1 Week Discharge Medications: New potassium chloride 10 mEq capsule, extended release 10 meq PO DAILY Qty: 7 0RF Continued carvedilol 25 mg tablet 25 mg PO BID Qty: 180 5RF Combivent Respimat 20-100 mcg/actuation mist 1 puff inhalation QID PRN (Reason: Wheezing/Sob.) 90 Days Qty: 4 0RF Rx Instructions: space evenly during waking hours citalopram 20 mg tablet 20 mg PO DAILY Entresto 97-103 mg tablet 1 tab PO BID Xarelto 20 mg tablet 20 mg PO DAILY@1700 nicotine 14 mg/24 hr patch 24 hour 1 patch topical DAILY Jardiance 25 mg tablet 25 mg PO DAILY metolazone 2.5 mg Tablet 2.5 mg PO DAILY PRN (Reason: Edema) ZzzQuil 50 mg/30 mL Liquid 50 mg PO BEDTIME PRN (Reason: Sleep) furosemide [Lasix] 40 mg tablet 80 mg PO BID@0800,1400 insulin aspart U-100 100 unit/mL (3 mL) insulin pen 1 sliding scale dose subcut TIDAC atorvastatin 80 mg tablet 80 mg PO BEDTIME Changed insulin glargine [Lantus Solostar U-100 Insulin] 100 unit/mL (3 mL) insulin pen 5 unit subcut BEDTIME Qty: 1 0RF Discharge Orders: Discharge Order (Routine); Ordered 08/16/23 Ordered By: Tay Booth Diet: Advance to usual diet Activity on Discharge: As tolerated Stand Alone Forms: Patient Portal Discharge page Print Language: New Zealander Care Plan Goals: Patient was admitted for acute on chronic CHF exacerbation started on IV Lasix, found elevated BNP and chest x-ray-seems fine: Patient was started on IV Lasix as above, diuresed well, BNP improving, shortness of breath resolved, seen by Cardiology discussed patient will be going home with her home medications and diuretics. CHF education given. If gains weight 2 lb or more in a week may need further adjustment of diuretic outpatient. Advised to compliance with her medications and diet. Mild hypokalemia: Secondary to diuresis: Repleted and resolved, given home supply of potassium 10 mEq daily for 1 week. Monitor renal function electrolytes outpatient. Diabetes: Fingersticks are fluctuating 170s: Will adjust her Lantus to 5 units. Continue current other medications. Diabetic education given, monitor fingersticks at home if persistently above 200 range may need further adjustment of Lantus out patiently. Health Concerns: As above. Plan of Treatment: As above. Assessment: As above. Patient Instructions: Heart Failure (DC)
[2023-08-16] MEDS: Potassium Chloride ER 20 MEQ TAB.ER.PRT 40 MEQ PO (11:10)
[2023-08-16 11:20] VITALS: BP 104/53; PULSE 72; RESP 20; TEMP 36.4; O2SAT 95
[2023-08-16 11:28] LABS: Glucose, Whole Blood 147 mg/dL (60-115)
[2023-08-16 14:00] LABS: Potassium 4.2 mmol/L (3.3-5.1)
--- NOTE | 2023-08-16 14:38 | MHC.CM.PN ---
Patient has been medically cleared for dc to home today, self care. Last IMM was addressed yesterday. CM has arranged for a LYFT, providing them with Patient's cell phone # so that she can be aware of when the [employer] Laborer arrives. RN is aware.
== END 2023-08-16 14:41 | disposition home or self-care (01) | DRG 291 ==
LOC: HO.ED 22:40 → HO.EDOVER 22:47 → HO.IMC 08-15 11:57
PROVIDERS: Admitting Provider Internal Medicine; Emergency Provider Emergency Medicine; Visit Provider Internal Medicine
DX: I11.0 Hypertensive heart disease with heart failure (principal); I50.43 Acute on chronic combined systolic (congestive) and diastolic (congestive) heart failure; Z68.42 Body mass index [BMI] 45.0-49.9, adult; I25.10 Atherosclerotic heart disease of native coronary artery without angina pectoris; E66.01 Morbid (severe) obesity due to excess calories; E87.6 Hypokalemia; F32.A Depression, unspecified; E78.5 Hyperlipidemia, unspecified; G47.33 Obstructive sleep apnea (adult) (pediatric); Z20.822 Contact with and (suspected) exposure to COVID-19; Z95.1 Presence of aortocoronary bypass graft; Z95.810 Presence of automatic (implantable) cardiac defibrillator; Z86.711 Personal history of pulmonary embolism; Z87.891 Personal history of nicotine dependence; Z79.4 Long term (current) use of insulin; Z79.01 Long term (current) use of anticoagulants; Z79.899 Other long term (current) drug therapy
CPT/HCPCS: 0241U; 36415; 71045; 80048; 80076; 82803; 82947; 83605; 83735; 83880; 84132; 84484; 85025; 85027; 85610; 87040; 93005; 94660; 99285; J1940

== ENCOUNTER → 2023-08-14 22:28 | Outpatient (BNV) | payer OTHER, SELFPAY ==
[2021-10-15 11:10] VITALS: BP 110/70; BMI 46.0
== END ==
PROVIDERS: Admitting Provider Internal Medicine; Emergency Provider Emergency Medicine; Visit Provider Internal Medicine
DX: I50.43 Acute on chronic combined systolic (congestive) and diastolic (congestive) heart failure (principal)
CPT/HCPCS: 99223; 99232; 99239

== ENCOUNTER → 2023-08-14 22:28 | Outpatient (BNV) | payer OTHER, SELFPAY ==
[2021-10-15 11:10] VITALS: BP 110/70; BMI 46.0
== END ==
PROVIDERS: Admitting Provider Internal Medicine; Emergency Provider Emergency Medicine; Visit Provider Internal Medicine
DX: I50.43 Acute on chronic combined systolic (congestive) and diastolic (congestive) heart failure (principal)
CPT/HCPCS: 93010; 99223; 99233

== ENCOUNTER 2023-08-28 12:20 | Outpatient (AMB) | payer OTHER, SELFPAY ==
[2021-10-15 11:10] VITALS: BP 110/70; BMI 46.0
[2023-08-28 12:53] VITALS: BP 104/52; PULSE 64; BMI 45.1
--- NOTE | 2023-08-28 12:53 | A.OFFVIS_ITS ---
Vital Signs 08/28/23 12:53 Height 4 ft 11 in Weight 223 lb 1.725 oz BMI 45.1 BP 104/52 L Blood Pressure Location Rt brachial Position Sitting Pulse 64 Pulse Source Pulse Oximeter Intake Visit Reasons: f/u per DC Box Tender Required: No Allergies No Known Allergies Allergy (Verified 08/28/23 12:55) Medication List - Last Reconciled 08/28/23 by CARINA Faust atorvastatin 80 mg PO BEDTIME carvedilol 25 mg PO BID citalopram 20 mg PO DAILY diphenhydramine HCl (ZzzQuil) 50 mg PO BEDTIME PRN empagliflozin (Jardiance) 25 mg PO DAILY furosemide (Lasix) 80 mg PO BID@0800,1400 insulin aspart U-100 1 sliding scale dose subcut TIDAC insulin glargine (Lantus Solostar U-100 Insulin) 5 units (0.05 mL) subcut BEDTIME ipratropium-albuterol 20-100 mcg/actuation (Combivent Respimat) 1 puff inhalation QID PRN 90 days metolazone 2.5 mg PO DAILY PRN nicotine 1 patch topical DAILY potassium chloride ER 10 mEq PO DAILY rivaroxaban (Xarelto) 20 mg PO DAILY@1700 sacubitril-valsartan 97-103 mg (Entresto) 1 tab PO BID HPI HPI f/u per DC: Details: La Nena is a 68 yo female with PMH of HTN, HLD, DM, CAD s/p 2 vessel CABG, CMP s/p Bi V ICD, CHB, HFrEF, bilateral PE, brief NSVT on ICD remote monitoring, CardioMEMS, Mild to moderate who was recently admitted to [facility] for shortness of breath and treated for heart failure exacerbation. She was diuresed and sent home with Lasix 80 mg b.i.d. Today she reports that she has been doing well since her hospital discharge. On the day of admission she states her shortness of breath came on suddenly. She had been doing well prior to that time. She has no chest discomfort at rest or with activity. No heart palpitations, lightheadedness, presyncope, syncope, falls. No PND, orthopnea or edema. She continues to sleep with 1-2 pillows. She admits to being mostly sedentary and only does light activities around the house and necessary [employer]. No routine exercise. Taking all meds as directed. She uses CPAP but tells me she needs a new machine. She has a repeat sleep study scheduled. She has updraft treatments at home as needed. [facility] Medical History CHF (congestive heart failure) Sleep apnea Presence of CardioMEMS HF system Hx of myocardial infarction Anxiety and depression Osteoarthritis Fatty liver Restrictive lung disease [place] treated with BiPAP Morbid obesity Biventricular ICD (implantable cardioverter-defibrillator) in place CAD (coronary artery disease) Non-rheumatic aortic stenosis Atherosclerotic cardiovascular disease Acute on chronic systolic and diastolic heart failure, NYHA class 3 Leukocytosis Dyspnea Transaminitis Hypoxia Congestive heart failure TAQUERIA (obstructive sleep apnea) NSVT (nonsustained ventricular tachycardia) Cardiomyopathy Chronic systolic heart failure Diabetes mellitus HLD (hyperlipidemia) HTN (hypertension) Surgical History History of incision and drainage Status post coronary artery bypass graft Stented coronary artery Hx of CABG History of cardiac cath Hx of cardiac cath Hx of cardiac cath Hx of appendectomy History of cholecystectomy Family History Father No problems noted. Mother No problems noted. Social History Household Members: Family Household Members Other:: son and daughter in law Housing: Apartment Are you a primary primary care md to a significant other at home: No Do you presently have visiting nurse or other home services: No Alcohol intake: never Comment: chronic back pain Patient Tobacco Use Status: Former Tobacco user Quit Date: 2020 Tobacco use type: Cigarette Cigarette Packs Per Day: 1 Years Smoked: 30 e-Cigarette/Vaping Use: Former Use Second Hand Smoke Exposure: Yes Advance Directives Date on File: 11/07/22 service: No Current occupational status: unemployed and disabled Current occupation: rt hand Review of Systems Const All systems reviewed & are unremarkable except as noted in HPI and below ENT Denies dizziness Card Denies chest pain, Denies chest pain at rest, Denies chest pain with activity, Denies rapid heart rate, Denies pedal edema, Denies edema, Denies leg edema, Denies lightheadedness, Denies palpitations, Denies dyspnea, Reports dyspnea on exertion and Denies orthopnea Resp Denies cough, Denies dyspnea and Reports dyspnea on exertion GI Denies hematochezia and Denies change in stool character Musc Denies abnormal gait, Denies limited range of motion, Denies muscle cramps, Denies muscle weakness, Denies numbness, Denies radiating pain into limb, Denies stiffness and Denies tingling Neuro Denies abnormal gait, Denies dizziness, Denies numbness and Denies tingling Endo Denies palpitations Physical Exam Vital Signs: BMI result Body Mass Index 45.1 Const General: cooperative, healthy appearing, comfortable and no acute distress Orientation/consciousness: patient oriented x3 Neck Neck: Yes normal visual inspection Resp Effort & Inspection: normal respiratory effort Auscultation: clear to auscultation bilaterally, no crackles, no rales, no rhonchi and no wheezes Cardio Jugular venous distension: no JVD Rate: regular rate Rhythm: regular rhythm Heart sounds: S1 normal heart sound present, S2 normal heart sound present, Murmur heart sound present (2/6 systolic right sternal border) and no rubs Neuro General: patient oriented x3 Extrem General: Yes normal to inspection, No no pedal edema and No calf tenderness Psych Appearance: grossly normal Mental Status: mental status grossly normal Speech and movement: Normal speech and movement present Assessment & Plan Assessment & Plan (1) Chronic systolic heart failure: Code(s): I50.22 - Chronic systolic (congestive) heart failure Category: Medical Plan: History of chronic systolic and diastolic heart failure. Recent [facility] admission for shortness of breath and treated Congestive heart failure exacerbation. Last echocardiogram done 07/31/2022 shows EF 45-50%, mild LVH, wall motion abnormality suggesting CAD, [id number] aortic stenosis. Today she reports that her breathing is back to normal. She does have chronic shortness of breath with exertion which could be related to obesity and sedentary lifestyle as well. NYHA class II. On examination she does not appear fluid overloaded. She denies orthopnea or recent weight gain. She tells me she has been compliant with her medications. Blood pressure is normal range at present. Will continue on carvedilol, Entresto for neurohormonal modulation. Continue Jardiance for heart failure treatment. Continue Lasix 80 mg b.i.d. with metolazone use p.r.n.. She has a CardioMEMS device in place however has not been compliant with readings. The rationale for CardioMEMS use and the need for routine readings reviewed with her. She states understanding is going to put up sign in her bedroom to remind her. Last labs 08/16/2023 showed creatinine 1.13 which is good for her. She does follow with Nephrology, Dr. Hopson. No med changes made at this time. Signs and symptoms of heart failure reviewed with her. Emergency care if needed for symptoms. Updating echo prior to next visit. Cardiology office visit in 3 months, sooner if needed. (2) Chronic diastolic heart failure: Comment: SHE IS A CASE OF CHRONIC DIASTOLIC FAILURE AND IS BEING FOLLOWED BY CARDIOLOGY SERVICE CLOSELY. SHE IS ON LONG STANDING ANTICOAGULATION THERAPY Code(s): I50.32 - Chronic diastolic (congestive) heart failure Category: Medical (3) Cardiomyopathy: Comment: mixed ischemic and nonischemic Code(s): I42.9 - Cardiomyopathy, unspecified Category: Medical Plan: Notes indicate this is mixed ischemic versus nonischemic cardiomyopathy. Most recent EF 45-50%. Medical management as above (4) Presence of CardioMEMS HF system: Code(s): Z95.818 - Presence of other cardiac implants and grafts Category: Medical Plan: CardioMEMS heart failure monitoring sensor placed by Dr. Reza on 01/25/2021.? She has not been consistently compliant with her CardioMEMS readings. Her readings that are done are quite variable likely due to dietary indiscretion. She tells me she is compliant with her med management? No clinical signs of decompensated HF on exam. ? I will continue to watch her CardioMEMS readings on the [facility] web site and call her to readjust Lasix dose as warranted (5) CAD (coronary artery disease): Code(s): I25.10 - Atherosclerotic heart disease of [place] coronary artery without angina pectoris Category: Medical Qualifiers: Associated angina: without angina Coronary Disease-Associated Artery/Lesion type: unspecified vessel or lesion type [place] vs. transplanted heart: unspecified whether [place] or transplanted heart Qualified Code(s): I25.10 - Atherosclerotic heart disease of [place] coronary artery without angina pectoris Plan: Hx CAD with 2 vessel CABG and prior coronary stent. Stable with no report of anginal sounding symptoms. Last Echo as above. Activity limited by knee pains and shortness of breath. Complaint with meds. Continue Carvediol, Entresto, alla rvastatin. Not on aspirin as she is on Xarelto. Her insurance did not approve Corlanor, which was previously ordered. ? (6) Biventricular ICD (implantable cardioverter-defibrillator) in place: Comment: [place], 2015 Code(s): Z95.810 - Presence of automatic (implantable) cardiac defibrillator Category: Medical Plan: [facility] Boris Bi V ICD in place. She has remote monitoring in use. No ICD dis charges. Will plan for office interrogation next visit. (7) TAQUERIA treated with BiPAP: Comment: CHRONIC COMPLEX SLEEP APNEA, TREATED WITH ASV MODE ,( PRESSURE 10 CM, WITH BACKUP RATE OF 12. Nasal pillows ) PATIENT IS VERY COMPLIANT AND BENEFITS FROM THE USE OF CPAP. Code(s): G47.33 - Obstructive sleep apnea (adult) (pediatric) Category: Medical Plan: She reports compliance with CPAP but needs a new mask. She tells me she has a repeat sleep study already ordered. (8) Aortic stenosis: Code(s): I35.0 - Nonrheumatic aortic (valve) stenosis Category: Medical Plan: [id number] noted on last echo. Murmur noted on exam. Echo prior to next visit. (9) Hospital discharge follow-up: Code(s): Z09 - Encounter for follow-up examination after completed treatment for conditions other than malignant neoplasm Category: Medical Plan: As above Plan As above Orders: Orders CA echo transthoracic complete 2 Months I35.0 - Nonrheumatic aortic (valve) stenosis, I42.9 - Cardiomyopathy, unspecified, I50.22 - Chronic systolic (congestive) heart failure Coding Level of Care Code Est Pt Level 4 (05200) Diagnoses Chronic systolic heart failure I50.22 Chronic diastolic heart failure I50.32 Cardiomyopathy I42.9 Presence of CardioMEMS HF system Z95.818 Coronary artery disease without angina pectoris, unspecified vessel or lesion type, unspecified whether [place] or transplanted heart I25.10 Associated angina: without angina Coronary Disease-Associated Artery/Lesion type: unspecified vessel or lesion type [place] vs. transplanted heart: unspecified whether [place] or transplanted heart Biventricular ICD (implantable cardioverter-defibrillator) in place Z95.810 [place] treated with BiPAP G47.33 Aortic stenosis I35.0 Hospital discharge follow-up Z09 Time Spent (min) 36
== END 2023-08-28 13:19 | disposition home or self-care (01) ==
PROVIDERS: Visit Provider Nurse Practitioner Family
DX: I50.22 Chronic systolic (congestive) heart failure (principal); I50.32 Chronic diastolic (congestive) heart failure; I42.9 Cardiomyopathy, unspecified; Z95.818 Presence of other cardiac implants and grafts; I25.10 Atherosclerotic heart disease of native coronary artery without angina pectoris; Z95.810 Presence of automatic (implantable) cardiac defibrillator; G47.33 Obstructive sleep apnea (adult) (pediatric); I35.0 Nonrheumatic aortic (valve) stenosis; Z09 Encounter for follow-up examination after completed treatment for conditions other than malignant neoplasm
CPT/HCPCS: 99214

== ENCOUNTER → 2023-08-28 12:20 | Outpatient (BNVA) | payer OTHER, SELFPAY ==
[2021-10-15 11:10] VITALS: BP 110/70; BMI 46.0
== END ==
PROVIDERS: Visit Provider Nurse Practitioner Family
DX: I50.42 Chronic combined systolic (congestive) and diastolic (congestive) heart failure (principal); I42.9 Cardiomyopathy, unspecified; I25.10 Atherosclerotic heart disease of native coronary artery without angina pectoris; I35.0 Nonrheumatic aortic (valve) stenosis; G47.33 Obstructive sleep apnea (adult) (pediatric); Z79.899 Other long term (current) drug therapy; Z95.818 Presence of other cardiac implants and grafts; Z95.1 Presence of aortocoronary bypass graft; Z95.810 Presence of automatic (implantable) cardiac defibrillator; Z99.89 Dependence on other enabling machines and devices
CPT/HCPCS: 99212

== ENCOUNTER → 2023-09-01 20:30 | Outpatient (REF) | payer OTHER, SELFPAY ==
[2021-10-15 11:10] VITALS: BP 110/70; BMI 46.0
== END ==
LOC: HO.SL 20:30
PROVIDERS: Visit Provider Internal Medicine
DX: G47.33 Obstructive sleep apnea (adult) (pediatric) (principal); I50.43 Acute on chronic combined systolic (congestive) and diastolic (congestive) heart failure
CPT/HCPCS: 95811

== ENCOUNTER → 2023-09-01 22:25 | Outpatient (BNV) | payer OTHER, SELFPAY ==
[2021-10-15 11:10] VITALS: BP 110/70; BMI 46.0
== END ==
PROVIDERS: Visit Provider Internal Medicine
DX: G47.33 Obstructive sleep apnea (adult) (pediatric) (principal)
CPT/HCPCS: 95811

== ENCOUNTER → 2023-09-09 23:59 | Outpatient (BNV) | payer OTHER, SELFPAY ==
[2021-10-15 11:10] VITALS: BP 110/70; BMI 46.0
--- NOTE | 2023-09-18 11:57 | MHC.OFFVIS ---
Intake Visit Reasons: Remote Cardiomems- [facility] Allergies No Known Allergies Allergy (Verified 08/28/23 12:55) PFS Medical History CHF (congestive heart failure) Sleep apnea Presence of CardioMEMS HF system Hx of myocardial infarction Anxiety and depression Osteoarthritis Fatty liver Restrictive lung disease TAQUERIA treated with BiPAP Morbid obesity Biventricular ICD (implantable cardioverter-defibrillator) in place CAD (coronary artery disease) Non-rheumatic aortic stenosis Atherosclerotic cardiovascular disease Acute on chronic systolic and diastolic heart failure, NYHA class 3 Leukocytosis Dyspnea Transaminitis Hypoxia Congestive heart failure TAQUERIA (obstructive sleep apnea) NSVT (nonsustained ventricular tachycardia) Cardiomyopathy Chronic systolic heart failure Diabetes mellitus HLD (hyperlipidemia) HTN (hypertension) Surgical History History of incision and drainage Status post coronary artery bypass graft Stented coronary artery Hx of CABG History of cardiac cath Hx of cardiac cath Hx of cardiac cath Hx of appendectomy History of cholecystectomy Family History Father No problems noted. Mother No problems noted. Social History Household Members: Family Household Members Other:: son and daughter in law Housing: Apartment Are you a primary progressive care manager to a significant other at home: No Do you presently have visiting nurse or other home services: No Alcohol intake: never Comment: chronic back pain Patient Tobacco Use Status: Former Tobacco user Quit Date: 2020 Tobacco use type: Cigarette Cigarette Packs Per Day: 1 Years Smoked: 30 e-Cigarette/Vaping Use: Former Use Second Hand Smoke Exposure: Yes Advance Directives Date on File: 11/07/22 service: No Current occupational status: unemployed and disabled Current occupation: rt hand Office Procedures Cardiac Device Check Cardiac Device Check Details: Monitoring period dates: 08/09/23 -09/08/23 Optimal PA pressure range:CARI goal 28mmhg Procedure code: 41609 BACKGROUND: [place] Nena is implanted with the CardioMEMS PA Sensor.? I use this technology to monitor PA pressures on a weekly basis to ensure patients are within their optimal range to prevent decompensation.? SUMMARY:? I utilized the remote monitoring platform ([employer]) to set optimal targets for pulmonary artery pressure thresholds as part of acute and chronic management of patient?s heart failure. During the period indicated above, I monitored the patient?s pulmonary artery pressures weekly via trend analysis and notification reports which provide alerts when patient?s PA pressures were outside of range to prompt immediate action in medication changes and communications.? The weekly reports are archived in the [employer] system which serve as a parallel record to document weekly PA pressures, medication changes, and clinical notes. I have reviewed readings on 08/08, 08/19, 08/31, 09/03. Her CARI has ranged between 27-39mmhg. She is not consistent with readings. She has been admitted for HF. Seen in office for post hospital follow up and reeducated her on how cardiomems readings can help to identfy HF early and we can direct her on diuretic adjustments. She says she understands and will be more compliant. 66753 - Remote monitoring of wireless pulmonary artery pressure sensor Procedure code (CPT) selection complete Assessment & Plan Assessment & Plan (1) Presence of CardioMEMS HF system: Code(s): Z95.818 - Presence of other cardiac implants and grafts Category: Medical Plan: monthly report Coding Level of Care Code Procedure Only Diagnoses Presence of CardioMEMS HF system Z95.818 CPT Codes Cardiac Device Check - Cardiac Device 17: 91011 - Remote monitoring of wireless pulmonary artery pressure sensor ([id number])
== END ==
PROVIDERS: Visit Provider Nurse Practitioner Family
DX: Z95.818 Presence of other cardiac implants and grafts (principal)
CPT/HCPCS: 93264

== ENCOUNTER → 2023-09-18 12:34 | Outpatient (REF) | payer OTHER, SELFPAY ==
[2021-10-15 11:10] VITALS: BP 110/70; BMI 46.0
--- NOTE | 2023-09-18 12:37 | CA_ITS ---
Transthoracic Echocardiogram Patient (Last, First, Middle): La Nena Castro M Gender: Female Date of : 1955 Age: 68 Procedure Date: 09/18/2023 Procedure Type: Transthoracic Echocardiogram Location: OP Height: 149.86 cm Weight: 100.7 kg BSA: 1.93 m2 Heart Rate: bpm BP: 130 / 70 mmHg Orange Picking Supervisor: TO Referring MD: Mariel Arellano SPECIAL CERTIFICATE DICTATOR-C Symptoms: I50.22 - Chronic systolic (congestive) heart failure Study Quality: Technically Difficult/Contrast Conclusions: - left ventricular systolic function is moderately decreased. The visually estimated ejection fraction is between 30-35%. - Elevated filling pressures. - The anterolateral wall, the apical inferior, basal anterior, mid anterior, and mid inferior segments are hypokinetic. - The apex and basal inferior segments are akinetic. Findings Procedure Information Contrast agent, definity, is being given per protocol without apparent complications. Left Ventricle Normal left ventricular cavity size. The left ventricular systolic function is moderately decreased. The visually estimated ejection fraction is between 30-35%. There is evidence of regional wall motion abnormalities. Abnormal diastolic function is noted. Spectral Doppler is indicative of an impaired relaxation filling pattern. Elevated filling pressures. Wall Motion Rest Echo Findings The anterolateral wall, the apical inferior, basal anterior, mid anterior, and mid inferior segments are hypokinetic. The apex and basal inferior segments are akinetic. Right Ventricle Normal right ventricular cavity size. There is mildly decreased right ventricular systolic function. Atria The left atrium is moderately dilated. The right atrium is normal in size. Aortic Valve There is a normal trileaflet aortic valve. There is mild calcification of the aortic valve. There is mild thickening of the aortic valve. There is no aortic valve stenosis. There is no aortic valve regurgitation. Mitral Valve The mitral valve appears normal. There is mild mitral annular calcification. There is no mitral valve regurgitation. There is no mitral valve stenosis. Pulmonic Valve The pulmonic valve is likely normal. Tricuspid Valve Normal tricuspid valve structure and function. Tricuspid regurgitation envelope is inadequate for calculation of right ventricular systolic pressure. Normal right atrial pressure. Great Vessels All visible segments of the aorta are normal in size. Venous The inferior vena cava is normal in size and collapses greater than 50% with inspiration. Pericardium/Pleural There is no evidence of pericardial effusion. Prior Study Comparison Changes noted compared to prior study dated: 07/31/2022. EF 30-35%, RWMA ischemic cardiomyopathy. Measurements 2D Linear Measurements IVSd: 1.13 0.6-0.9/0.6-1.0 cm LVIDd: 4.85 3.9-5.3/4.2-5.9 cm LVIDd Index: 2.51 2.4-3.2/2.2-3.1 cm/m2 LVIDs: 3.98 2.0-3.6 cm LVPWd: 0.95 0.7-1.1 cm LA Diam: 3.90 2.7-3.8/3.0-4.0 cm LAIDs Index: 2.02 1.5-2.3 cm/m2 LV Mass: 227.78 67-162/88-224 g LV Mass Index: 118.02 43-95/49-115 g/m2 LVOT Diam: 2.00 3.0+(-)1.3 cm 2D Systolic Function EF 4C: 33.10 >55% EF 2C: 32.20 >55% EF BiP: 32.50 >55% Mitral Valve MV VTI: 0.29 MV Pk Jaswinder: 1.05 MV Mn Jaswinder: 0.55 MV Pk Grad: 4.00 MV Mn Grad: 1.00 MV Pk E: 0.80 MV PK A: 0.88 MV Decel Time: 210.00 E/A: 0.90 E'Lateral: 4.03 E'Medial: 3.48 E/E' Med: 23.00 E/E' Lat: 19.90 PHT: 62.00 MVA PHT: 3.55 MVA Continuity: 1.60 Decel [place]: 3.81 Aortic Valve AoV Pk Jaswinder: 1.92 AoV Mn Jaswinder: 1.48 AoV VTI: 0.52 AoV Pk Grad: 15.00 Aov Mn Grad: 10.00 DONNA Cont.VTI: 0.89 LVOT LVOT Pk Jaswinder: 0.57 LVOT Mn Jaswinder: 0.38 LVOT VTI: 0.15 LVOT Pk Grad: 1.00 LVOT Mn Grad: 1.00 LVOT Diam: 2.00 LVOT Area: 3.14 Diastolic Function MV Pk E: 0.80 MV Pk A: 0.88 E/A: 0.90 E'Medial: 3.48 E/E' Med: 23.00 E' Laterial: 4.03 E/E' Lat: 19.90 Right Ventricle TAPSE (mm): 15.70 TVS' Jaswinder: 8.27 Tricuspid Valve RA Press: 3.00 Great Vessels Aorta Sinus of Valsalva: 3.18 2.0-3.5 cm Ao Asc: 3.20 2.1-3.4 cm Updated in Other Vendor System with Status of Final Jaycob Reza MD electronically signed on 09/21/2023 7:56:15 PM with status of Final
== END ==
LOC: HO.CARD 12:34
PROVIDERS: Visit Provider Nurse Practitioner Family
DX: I50.22 Chronic systolic (congestive) heart failure (principal); I42.9 Cardiomyopathy, unspecified; I35.0 Nonrheumatic aortic (valve) stenosis
CPT/HCPCS: 93306; Q9957

== ENCOUNTER → 2023-09-18 12:37 | Outpatient (BNV) | payer OTHER, SELFPAY ==
[2021-10-15 11:10] VITALS: BP 110/70; BMI 46.0
== END ==
PROVIDERS: Visit Provider Internal Medicine Cardiovascular Disease
DX: I50.22 Chronic systolic (congestive) heart failure (principal); I35.8 Other nonrheumatic aortic valve disorders; I34.81 Nonrheumatic mitral (valve) annulus calcification
CPT/HCPCS: 93306

== ENCOUNTER → 2023-11-03 23:59 | Outpatient (BNV) | payer OTHER, SELFPAY ==
[2021-10-15 11:10] VITALS: BP 110/70; BMI 46.0
--- NOTE | 2023-11-09 16:54 | MHC.OFFVIS ---
Intake Visit Reasons: Remote device check- [facility] Allergies No Known Allergies Allergy (Verified 08/28/23 12:55) [facility] Medical History CHF (congestive heart failure) Sleep apnea Presence of CardioMEMS HF system Hx of myocardial infarction Anxiety and depression Osteoarthritis Fatty liver Restrictive lung disease TAQUERIA treated with BiPAP Morbid obesity Biventricular ICD (implantable cardioverter-defibrillator) in place CAD (coronary artery disease) Non-rheumatic aortic stenosis Atherosclerotic cardiovascular disease Acute on chronic systolic and diastolic heart failure, NYHA class 3 Leukocytosis Dyspnea Transaminitis Hypoxia Congestive heart failure TAQUERIA (obstructive sleep apnea) NSVT (nonsustained ventricular tachycardia) Cardiomyopathy Chronic systolic heart failure Diabetes mellitus HLD (hyperlipidemia) HTN (hypertension) Surgical History History of incision and drainage Status post coronary artery bypass graft Stented coronary artery Hx of CABG History of cardiac cath Hx of cardiac cath Hx of cardiac cath Hx of appendectomy History of cholecystectomy Family History Father No problems noted. Mother No problems noted. Social History Household Members: Family Household Members Other:: son and daughter in law Housing: Apartment Are you a primary daycare provider to a significant other at home: No Do you presently have visiting nurse or other home services: No Alcohol intake: never Comment: chronic back pain Patient Tobacco Use Status: Former Tobacco user Tobacco use type: Cigarette Cigarette Packs Per Day: 1 Years Smoked: 30 e-Cigarette/Vaping Use: Former Use Second Hand Smoke Exposure: Yes Advance Directives Date on File: 11/07/22 service: No Current occupational status: unemployed and disabled Current occupation: rt hand Office Procedures Cardiac Device Check Cardiac Device Check Details: remote ICD report generated 11/03/2023. ICD function is adequate. Biventricular pacing 99% of time [id number] Cardiac Interrogation, implant defibrillator w/interim Procedure code (CPT) selection complete Assessment & Plan Assessment & Plan (1) Biventricular ICD (implantable cardioverter-defibrillator) in place: Comment: [facility] 2015 Code(s): Z95.810 - Presence of automatic (implantable) cardiac defibrillator Category: Medical Plan: see above Coding Level of Care Code Procedure Only Diagnoses Biventricular ICD (implantable cardioverter-defibrillator) in place Z95.810 CPT Codes Cardiac Device Check - Cardiac Device 13: [id number] Cardiac Interrogation, implant defibrillator w/interim ([id number])
== END ==
PROVIDERS: Visit Provider Internal Medicine Cardiovascular Disease
DX: I50.9 Heart failure, unspecified (principal); Z95.810 Presence of automatic (implantable) cardiac defibrillator
CPT/HCPCS: 93295

== ENCOUNTER 2023-11-30 12:36 | Outpatient (AMB) | payer OTHER, SELFPAY ==
[2021-10-15 11:10] VITALS: BP 110/70; BMI 46.0
[2023-11-30 13:10] VITALS: BP 162/72; PULSE 72; BMI 43.2
--- NOTE | 2023-11-30 13:10 | MHC.OFFVIS ---
Vital Signs 11/30/23 13:10 Height 4 ft 11 in Weight 213 lb 13.574 oz BMI 43.2 BP 162/72 H Blood Pressure Location Rt brachial Position Sitting Pulse 72 Pulse Source Pulse Oximeter Intake Visit Reasons: 3m w device ck s/p MD Stamper Blocker Required: No Allergies No Known Allergies Allergy (Verified 11/30/23 13:12) Medication List - Last Reconciled 11/30/23 by CARINA Faust atorvastatin 80 mg PO BEDTIME carvedilol 25 mg PO BID citalopram 20 mg PO DAILY diphenhydramine HCl (ZzzQuil) 50 mg PO BEDTIME PRN empagliflozin (Jardiance) 25 mg PO DAILY furosemide (Lasix) 80 mg PO BID@0800,1400 insulin aspart U-100 1 sliding scale dose subcut TIDAC insulin glargine (Lantus Solostar U-100 Insulin) 5 units (0.05 mL) subcut BEDTIME ipratropium-albuterol 20-100 mcg/actuation (Combivent Respimat) 1 puff inhalation QID PRN 90 days metolazone 2.5 mg PO DAILY PRN nicotine 1 patch topical DAILY rivaroxaban (Xarelto) 20 mg PO DAILY@1700 sacubitril-valsartan 97-103 mg (Entresto) 1 tab PO BID HPI HPI 3m w device ck s/p MD: Details: La Nena is a 68 yo female with PMH of HTN, HLD, DM, CAD s/p 2 vessel CABG, CMP s/p Bi V ICD, CHB, HFrEF, bilateral PE, brief NSVT on ICD remote monitoring, CardioMEMS, Mild to moderate who was recently admitted to [facility] after having a respiratory arrest type event at home with brief resuscitation requiring intubation and ICU stay. She did sustain a rib fracture. A cardiac catheterization was performed showing no change in anatomy. She was discharged on her usual medications. Today she reports that she has been doing well since her hospital discharge. On the day of admission she states her shortness of breath came on suddenly after an attempted break in at her home. She remembers being very short of breath and then the next thing being in the hospital. Records indicate that she did have possible cardiac arrest and was briefly resuscitated. At this time she says she has fully recovered. Her breathing is back to normal. She has minor soreness from her left rib fracture. No other chest discomfort. No heart palpitations, lightheadedness, presyncope, syncope, falls. No PND, orthopnea or edema. She continues to sleep with 1-2 pillows. She admits to being mostly sedentary and only does light activities around the house. No routine exercise. Her daughter lives with her and she says this is the reason that she can not do the CardioMEMS readings. She needs a separate location to lay down on the CardioMEMS pillow and her daughter is using that space. She has updraft treatments at home. Taking all meds as directed. [facility] Medical History CHF (congestive heart failure) Sleep apnea Presence of CardioMEMS HF system Hx of myocardial infarction Anxiety and depression Osteoarthritis Fatty liver Restrictive lung disease TAQUERIA treated with BiPAP Morbid obesity Biventricular ICD (implantable cardioverter-defibrillator) in place CAD (coronary artery disease) Non-rheumatic aortic stenosis Atherosclerotic cardiovascular disease Acute on chronic systolic and diastolic heart failure, NYHA class 3 Leukocytosis Dyspnea Transaminitis Hypoxia Congestive heart failure TAQUERIA (obstructive sleep apnea) NSVT (nonsustained ventricular tachycardia) Cardiomyopathy Chronic systolic heart failure Diabetes mellitus HLD (hyperlipidemia) HTN (hypertension) Surgical History History of incision and drainage Status post coronary artery bypass graft Stented coronary artery Hx of CABG History of cardiac cath Hx of cardiac cath Hx of cardiac cath Hx of appendectomy History of cholecystectomy Family History Father No problems noted. Mother No problems noted. Social History Household Members: Family Household Members Other:: son and daughter in law Housing: Apartment Are you a primary medical care evaluation specialist to a significant other at home: No Do you presently have visiting nurse or other home services: No Alcohol intake: never Comment: chronic back pain Patient Tobacco Use Status: Former Tobacco user Tobacco use type: Cigarette Cigarette Packs Per Day: 1 Years Smoked: 30 e-Cigarette/Vaping Use: Former Use Second Hand Smoke Exposure: Yes Advance Directives Date on File: 11/07/22 service: No Current occupational status: unemployed and disabled Current occupation: rt hand Review of Systems Const All systems reviewed & are unremarkable except as noted in HPI and below ENT Denies dizziness Card Denies chest pain, Denies chest pain at rest, Denies chest pain with activity, Denies rapid heart rate, Denies pedal edema, Denies edema, Denies leg edema, Denies lightheadedness, Denies palpitations, Denies dyspnea, Denies dyspnea on exertion and Denies orthopnea Resp Denies cough, Denies dyspnea and Denies dyspnea on exertion GI Denies hematochezia and Denies change in stool character Musc Denies abnormal gait, Denies limited range of motion, Denies muscle cramps, Denies muscle weakness, Denies numbness, Denies radiating pain into limb, Denies stiffness and Denies tingling Neuro Denies abnormal gait, Denies dizziness, Denies numbness and Denies tingling Endo Denies palpitations Physical Exam Vital Signs: Last Vital Signs Pulse 72 11/30/23 13:10 BP 162/72 H 11/30/23 13:10 BMI result Body Mass Index 43.2 Const Other: morbidly obese General: cooperative, healthy appearing, comfortable and no acute distress Orientation/consciousness: patient oriented x3 Neck Neck: Yes normal visual inspection Resp Effort & Inspection: normal respiratory effort Auscultation: clear to auscultation bilaterally, no crackles, no rales, no rhonchi and no wheezes Cardio Jugular venous distension: no JVD Rate: regular rate Rhythm: regular rhythm Heart sounds: S1 normal heart sound present, S2 normal heart sound present, Murmur heart sound present (2/6 systolic right sternal border) and no rubs Neuro General: patient oriented x3 Extrem General: Yes normal to inspection, No no pedal edema and No calf tenderness Psych Appearance: grossly normal Mental Status: mental status grossly normal Speech and movement: Normal speech and movement present Office Procedures Cardiac Device Check Cardiac Device Check Details: [employer] Bi V ICD interrogation today shows battery 1.8 years, atrial threshold 0.5 volts at 0.5 milliseconds, RV threshold 1.125 volts at 1 millisecond, LV threshold 1.125 volts at 0.5 milliseconds, DDD are mode, low rate 60, a paced 5.8%, Bi V paced 99%, 0% mode switching, pacer dependent NSVT episodes 6 seconds on 11/24/2023. No other recent alerts 18126-TC Cardiac Device Check, multi lead implantable defibrillator Procedure code (CPT) selection complete EKG Details: error - no charge 42733-[id number], Complete Assessment & Plan Assessment & Plan (1) Respiratory arrest: Code(s): R09.2 - Respiratory arrest Category: Medical Plan: Recent [facility] admission following acute respiratory distress and presumed loss of consciousness. She did require resuscitation, brief CPR and intubation. Notes indicate possible cardiac arrest however on device interrogation today there is no evidence of any cardiac arrhythmia that could contribute to arrest. She likely had respiratory arrest which she describes following a traumatic situation in her home. At this time she reports being fully recovered. Her breathing is back to normal. She continues to follow with pulmonology. (2) S/P cardiac catheterization: Comment: 10/23/2023 moderate distal left main, severe ostial circumflex, widely patent mid LAD stents, widely patent GERBER to LAD and vein graft to OM 2, no gradient across the aortic valve by catheter pullback from the LV to the aorta, presence of left subclavian stenosis which could cause exertional ischemia in the GERBER to LAD graft - no angiographic culprit explaining patient's symptom and presentation. Code(s): Z98.890 - Other specified postprocedural states Category: Surgical Plan: As above. Right femoral site healing well. (3) Chronic systolic heart failure: Code(s): I50.22 - Chronic systolic (congestive) heart failure Category: Medical Plan: History of chronic systolic and diastolic heart failure. She does have a CardioMEMS device to help with heart failure monitoring however she does not do her readings. She tells me this is because of her living situation and she has no physical place in her apartment to lay down on the CardioMEMS pillow. Recent [facility] admission for respiratory arrest type event. No mention of decompensated heart failure. Echocardiogram done 10/20/2023 showed mild concentric LVH, EF 31%, lateral wall hypokinetic, apex aneurysmal, grade 2 diastolic dysfunction, no LV thrombus, aortic valve no stenosis or regurgitation. Today she reports that her breathing is back to normal. She does have chronic baseline shortness of breath with exertion which could be related to obesity and sedentary lifestyle as well. NYHA class II. On examination she does not appear fluid overloaded. She denies orthopnea or recent weight gain. She tells me she has been compliant with her medications. Wiill continue on carvedilol, Entresto for neurohormonal modulation. Continue Jardiance for heart failure treatment. Continue Lasix 80 mg b.i.d. with metolazone use p.r.n.. Labs 08/16/2023 showed creatinine 1.13 which is good for her. She does follow with Nephrology, Dr. Hopson. Blood pressure is elevated today however prior blood pressures reviewed and typically they run on the low side. At this time will continue to monitor. No med changes made at this time. Signs and symptoms of heart failure reviewed with her. Emergency care if needed for symptoms. Cardiology office visit in 3 months, sooner if needed. (4) Chronic diastolic heart failure: Comment: SHE IS A CASE OF CHRONIC DIASTOLIC FAILURE AND IS BEING FOLLOWED BY CARDIOLOGY SERVICE CLOSELY. SHE IS ON LONG STANDING ANTICOAGULATION THERAPY Code(s): I50.32 - Chronic diastolic (congestive) heart failure Category: Medical Plan: As above (5) Cardiomyopathy: Comment: mixed ischemic and nonischemic Code(s): I42.9 - Cardiomyopathy, unspecified Category: Medical Plan: Notes indicate this is mixed ischemic versus nonischemic cardiomyopathy. Most recent EF 31% which is down from prior. Cardiac catheterization shows no change in anatomy. Medical management as above (6) Presence of CardioMEMS HF system: Code(s): Z95.818 - Presence of other cardiac implants and grafts Category: Medical Plan: CardioMEMS heart failure monitoring sensor placed by Dr. Reza on 01/25/2021.? She has not been consistently compliant with her CardioMEMS readings. Her readings that are done are quite variable likely due to dietary indiscretion. She tells me she is compliant with her med management? No clinical signs of decompensated HF on exam. ? I will continue to watch her CardioMEMS readings on the [employer] web site and call her to readjust Lasix dose as warranted (7) CAD (coronary artery disease): Code(s): I25.10 - Atherosclerotic heart disease of [place] coronary artery without angina pectoris Category: Medical Qualifiers: Associated angina: without angina Coronary Disease-Associated Artery/Lesion type: unspecified vessel or lesion type [place] vs. transplanted heart: unspecified whether [place] or transplanted heart Qualified Code(s): I25.10 - Atherosclerotic heart disease of [place] coronary artery without angina pectoris Plan: Hx CAD with 2 vessel CABG and prior coronary stent. Stable with no report of anginal sounding symptoms. Last Echo as above. Activity limited by knee pains and shortness of breath. Complaint with meds. Continue Carvediol, Entresto, atorvastatin. Not on aspirin as she is on Xarelto. Her insurance did not approve Corlanor, which was previously ordered. ? (8) Biventricular ICD (implantable cardioverter-defibrillator) in place: Comment: [place], 2014 Code(s): Z95.810 - Presence of automatic (implantable) cardiac defibrillator Category: Medical Plan: [employer] Bi V ICD in place. Office interrogation today shows the device is functioning normally. She has not required any ICD discharges even during recent concern for cardiac arrest. Notes from that admission says she did not have a shockable rhythm. She has remote monitoring in use. (9) TAQUERIA treated with BiPAP: Comment: CHRONIC COMPLEX SLEEP APNEA, TREATED WITH ASV MODE ,( PRESSURE 10 CM, WITH BACKUP RATE OF 12. Nasal pillows ) PATIENT IS VERY COMPLIANT AND BENEFITS FROM THE USE OF CPAP. Code(s): G47.33 - Obstructive sleep apnea (adult) (pediatric) Category: Medical Plan: She reports compliance with CPAP. Follows with pulmonology (10) Aortic stenosis: Code(s): I35.0 - Nonrheumatic aortic (valve) stenosis Category: Medical Plan: [id number] noted on prior echo. Most recent echo is showing no aortic stenosis. Cardiac catheterization shows no gradient across the AV. (11) Hospital discharge follow-up: Code(s): Z09 - Encounter for follow-up examination after completed treatment for conditions other than malignant neoplasm Category: Medical Plan: As above. [facility] records reviewed Plan Time spent on chart review, [facility] Medical record review, assessment, interview, documentation, device check review Coding Level of Care Code Est Pt Level 5 (89915) Diagnoses Respiratory arrest R09.2 S/P cardiac catheterization Z98.890 Chronic systolic heart failure I50.22 Chronic diastolic heart failure I50.32 Cardiomyopathy I42.9 Presence of CardioMEMS HF system Z95.818 Coronary artery disease without angina pectoris, unspecified vessel or lesion type, unspecified whether [place] or transplanted heart I25.10 Associated angina: without angina Coronary Disease-Associated Artery/Lesion type: unspecified vessel or lesion type [place] vs. transplanted heart: unspecified whether [place] or transplanted heart Biventricular ICD (implantable cardioverter-defibrillator) in place Z95.810 TAQUERIA treated with BiPAP G47.33 Aortic stenosis I35.0 Hospital discharge follow-up Z09 CPT Codes EKG - CPT: 43296-[id number], Complete ([id number]) Cardiac Device Check - Cardiac Device 6: [id number]-PS Cardiac Device Check, multi lead implantable defibrillator ([id number]) Time Spent (min) 45 Comment
== END 2023-11-30 13:55 | disposition home or self-care (01) ==
PROVIDERS: Visit Provider Nurse Practitioner Family
DX: R09.2 Respiratory arrest (principal); Z98.890 Other specified postprocedural states; I50.42 Chronic combined systolic (congestive) and diastolic (congestive) heart failure; Z09 Encounter for follow-up examination after completed treatment for conditions other than malignant neoplasm; I42.9 Cardiomyopathy, unspecified; Z95.810 Presence of automatic (implantable) cardiac defibrillator; Z95.818 Presence of other cardiac implants and grafts; G47.33 Obstructive sleep apnea (adult) (pediatric); I35.0 Nonrheumatic aortic (valve) stenosis; I25.10 Atherosclerotic heart disease of native coronary artery without angina pectoris
CPT/HCPCS: 93284; 99215

== ENCOUNTER → 2023-11-30 12:36 | Outpatient (BNVA) | payer OTHER, SELFPAY ==
[2021-10-15 11:10] VITALS: BP 110/70; BMI 46.0
== END ==
PROVIDERS: Visit Provider Nurse Practitioner Family
DX: I25.2 Old myocardial infarction (principal); I25.10 Atherosclerotic heart disease of native coronary artery without angina pectoris; R09.2 Respiratory arrest; I11.0 Hypertensive heart disease with heart failure; I50.42 Chronic combined systolic (congestive) and diastolic (congestive) heart failure; I42.9 Cardiomyopathy, unspecified; G47.33 Obstructive sleep apnea (adult) (pediatric); I35.0 Nonrheumatic aortic (valve) stenosis; Z45.02 Encounter for adjustment and management of automatic implantable cardiac defibrillator; Z98.890 Other specified postprocedural states; Z95.818 Presence of other cardiac implants and grafts; Z95.1 Presence of aortocoronary bypass graft
CPT/HCPCS: 99212

== ENCOUNTER 2023-12-14 07:58 | Emergency (ER) | payer OTHER, SELFPAY ==
[2021-10-15 11:10] VITALS: BP 110/70; BMI 46.0
--- NOTE | ~2023-12-14 | XR_ITS ---
EXAMINATION: XR FINGER, RIGHT CLINICAL INFORMATION: Second finger distal pain, erythema. Injury on 12/11/2023. COMPARISON: None available. TECHNIQUE: 3 views of the right second digit. FINDINGS: Acute avulsion fracture at the dorsal base of the distal phalanx of the index finger. The fragment measures approximately 0.3 cm AP, approximately 0.3 cm in length and based on the lateral radiographic view, appears to represent at least 40-50% of the articular surface area of the base of the phalanx. The fragment is posteriorly displaced by up to 0.2 cm and soft tissues are swollen around the injured phalanx. There is mild flexion of the DIP joint. Otherwise, bones are intact. Minimal osteophyte formation at first carpometacarpal joint. Small osteophytes also observed at multiple metacarpophalangeal joints. Mild and moderate osteoarthritic changes seen at multiple interphalangeal joints. XR/XR finger RT min 2V IMPRESSION: Acute avulsion fracture of the dorsal base of the distal phalanx of the index finger, as noted above.
[2023-12-14 08:05] VITALS: BP 151/68; PULSE 76; RESP 18; TEMP 36.4; O2SAT 96; BMI 43.8
--- NOTE | 2023-12-14 08:16 | ED_ITS ---
HPI - Extremity Problem General Chief complaint: Extremity Injury, Upper Stated complaint: Finger pain R hand Time Seen by Provider: 12/14/23 08:16 Source: patient Mode of arrival: ambulatory Limitations: no limitations History of Present Illness ED Provider: Tommy SCHROEDER Narrative: Patient is a 68-year-old right-hand dominant female with history of DM, HTN, CAD, ICD, heart failure presenting to the emergency department late of pain, redness and mild swelling to right index finger since Thursday. She is unsure if she accidentally injured her finger, states she can not remember an injury but is unable to flex finger due to pain. Denies any numbness or tingling. Complaint: extremity pain Onset (ago): day(s) Pain Consistency: constant Location: right Quality: aching Radiation: none Relieving factors: rest Exacerbating factors: range of motion and palpation Associated symptoms: denies other symptoms Related Data Home Medications ?Medication ?Instructions ?Recorded ?Confirmed atorvastatin 80 mg tablet 80 mg PO BEDTIME 02/27/20 11/30/23 insulin aspart U-100 100 unit/mL 1 sliding scale dose subcut TIDAC 06/26/20 11/30/23 (3 mL) subcutaneous pen citalopram 20 mg tablet 20 mg PO DAILY 07/21/20 11/30/23 furosemide 40 mg tablet (Lasix) 80 mg PO BID@0800,1400 11/05/22 11/30/23 rivaroxaban 20 mg tablet (Xarelto) 20 mg PO DAILY@1700 08/14/23 11/30/23 sacubitril 97 mg-valsartan 103 mg 1 tab PO BID 08/14/23 11/30/23 tablet (Entresto) diphenhydramine HCl 50 mg/30 mL 50 mg PO BEDTIME PRN Sleep 08/15/23 11/30/23 oral liquid (ZzzQuil) empagliflozin 25 mg tablet 25 mg PO DAILY 08/15/23 11/30/23 (Jardiance) metolazone 2.5 mg tablet 2.5 mg PO DAILY PRN Edema 08/15/23 11/30/23 nicotine 14 mg/24 hr daily 1 patch topical DAILY 08/15/23 11/30/23 transdermal patch Previous Rx's ?Medication ?Instructions ?Recorded carvedilol 25 mg tablet 25 mg PO BID #180 tabs 04/15/22 ipratropium 20 mcg-albuterol 100 1 puff inhalation QID PRN 08/11/23 mcg/actuation mist for inhalation Wheezing/Sob. 90 days #4 grams (Combivent Respimat) insulin glargine 100 unit/mL (3 5 unit (0.05 mL) subcut BEDTIME #1 08/16/23 mL) subcutaneous pen (Lantus mL Solostar U-100 Insulin) cephalexin 500 mg capsule 500 mg PO QID 7 days #28 caps 12/14/23 Allergies Allergy/AdvReac Type Severity Reaction Status Date / Time No Known Allergies Allergy Verified 12/14/23 08:07 Review of Systems 2 Review of Systems: As per HPI. Yes all other systems are reviewed and are negative Constitutional: Constitutional: Reports as per HPI PMF Past Medical History Medical History CHF (congestive heart failure) Sleep apnea Presence of CardioMEMS HF system Hx of myocardial infarction Anxiety and depression Osteoarthritis Fatty liver Restrictive lung disease TAQUERIA treated with BiPAP Morbid obesity Biventricular ICD (implantable cardioverter-defibrillator) in place CAD (coronary artery disease) Non-rheumatic aortic stenosis Atherosclerotic cardiovascular disease Acute on chronic systolic and diastolic heart failure, NYHA class 3 Leukocytosis Dyspnea Transaminitis Hypoxia Congestive heart failure TAQUERIA (obstructive sleep apnea) NSVT (nonsustained ventricular tachycardia) Cardiomyopathy Chronic systolic heart failure Diabetes mellitus HLD (hyperlipidemia) HTN (hypertension) Surgical History History of incision and drainage Status post coronary artery bypass graft Stented coronary artery Hx of CABG History of cardiac cath Hx of cardiac cath Hx of cardiac cath Hx of appendectomy History of cholecystectomy Family History Family History Father No problems noted. Mother No problems noted. Social History Social History Household Members: Family Household Members Other:: son and daughter in law Housing: Apartment Are you a primary before and after school daycare worker to a significant other at home: No Do you presently have visiting nurse or other home services: No Alcohol intake: never Comment: chronic back pain Patient Tobacco Use Status: Former Tobacco user Tobacco use type: Cigarette Cigarette Packs Per Day: 1 Years Smoked: 30 e-Cigarette/Vaping Use: Former Use Second Hand Smoke Exposure: Yes Advance Directives: Yes Advance Directives on File: Yes Advance Directives Date on File: 11/07/22 service: No Current occupational status: unemployed and disabled Current occupation: rt hand Physical Exam 2 Vital Signs: Vital Signs: Last Vital Signs Temp 97.6 F 12/14/23 08:05 Pulse 76 12/14/23 08:05 Resp 18 12/14/23 08:05 BP 151/68 H 12/14/23 08:05 Pulse Ox 96 12/14/23 08:05 O2 Del Method Room Air 12/14/23 08:05 BMI result Body Mass Index 43.8 Vital signs have been reviewed and appear to be correct. Blood pressure elevated. Heart rate normal. Respiratory rate normal. Temperature normal. Oxygen saturation normal. Const: General: cooperative, healthy appearing and no acute distress O rientation/consciousness: oriented to person, oriented to place, oriented to time and patient oriented x3 Limitations: no limitations HEENT: Head: Yes normocephalic and Yes atraumatic Ears: external ears normal General nose exam: Normal external nose present Face and sinus: Yes face symmetric Mouth: oropharynx normal and moist mucous membranes Throat: Yes uvula midline Eyes: Pupils: Equal, round and reactive pupils present Neck: Neck: Yes normal visual inspection and Yes supple Resp: Effort & Inspection: normal respiratory effort and able to speak in complete sentences Auscultation: clear to auscultation bilaterally Cardio: Rate: regular rate Rhythm: regular rhythm Heart sounds: S1 normal heart sound present and S2 normal heart sound present GI: Palpation (GI): Soft to palpation and nontender Auscultation: n ormoactive bowel sounds : General: Yes no CVA tenderness Back/Spine/Pelvis: Back: no CVA tenderness Skin: General skin exam: elasticity normal and turgor normal Neuro: General: oriented to person, oriented to place, oriented to time, patient oriented x3, moves all extremities, no focal motor deficits and CN's II- XI intact bilaterally Cranial nerves: Yes Equal, round and reactive pupils present Cognition (Neuro): normal cognition Extrem: General: Yes full ROM, Yes no pedal edema and Yes no calf tenderness Right upper extremity: Extremity exam: right hand (erythema and mild swelling to proximal nail fold 2nd finger, decreased ROM ) Details: normal capillary refill and abnormal ROM of finger (unable to fully flex 2nd finger) Hand/finger images: 1. erythema and mild swelling to proximal nail fold, all nails hyperkeratotic Psych: Mental Status: mental status grossly normal Affect: normal affect Thought process: Normal thought process present Medical Decision Making Medical Decision Making [facility] Narrative: Patient is a 68-year-old right-hand dominant female with history of DM, HTN, CAD, ICD, heart failure presenting to the emergency department late of pain, redness and mild swelling to right index finger since Thursday. On exam patient is awake, A+Ox3, BP elevated, VS otherwise WNL, afebrile, normal neurological exam without focal deficits, physical exam findings as above. Given reported symptoms and physical exam findings, initial differential includes right index finger contusion, fracture, paronychia. X-ray notable for acute avulsion fracture of dorsal base of distal phalanx. My interpretation is in agreement with the radiologist's interpretation. Patient provided with finger splint. Given pmhx and concern for paronychia, will also cover with cephalexin. Will refer to ortho for follow up. Return precautions discussed. Patient verbalized understanding of and agreement with plan. Differential Diagnosis Differential Diagnoses: The differential diagnosis associated with the presentation includes As per [facility] Independent Interpretation I performed an independent interpretation of an: Plain X-Ray Interpretation: X-ray notable for acute avulsion fracture of dorsal base of distal phalanx. Radiology Impression Discussion of test interpretation with radiology: I have reviewed the radiologist's reading. Radiologist Impression: XR/XR finger RT min 2V IMPRESSION: Acute avulsion fracture of the dorsal base of the distal phalanx of the index finger, as noted above. External Record Review External record reviewed: Inpatient record, Office record and Outpatient record Prescription Management I considered prescription management with: Antibiotic Discharge Plan Discharge Clinical Impression: Fracture of distal phalanx of finger of right hand Patient Disposition: Home, Self-Care Instructions: Finger Fracture (ED), Splint Care (ED) Additional Instructions: You were evaluated in the emergency department today for finger pain. Your x- ray showed evidence of a fracture in your finger was splinted in the emergency department. Please keep the splint on until you follow-up with orthopedics. Call their office to schedule an appointment, they will not call you. You are also being treated with a course of antibiotics given your history of diabetes and the proximity to your nail. Complete the full course of antibiotics as prescribed. Follow-up with your primary care provider as well. Return to the emergency department if you develop worsening pain, new numbness or tingling, change of color in your finger or any other concerning symptoms. Prescriptions: New cephalexin 500 mg capsule 500 mg PO QID 7 Days Qty: 28 0RF No Action carvedilol 25 mg tablet 25 mg PO BID Qty: 180 5RF Combivent Respimat 20-100 mcg/actuation mist 1 puff inhalation QID PRN (Reason: Wheezing/Sob.) 90 Days Qty: 4 0RF Rx Instructions: space evenly during waking hours citalopram 20 mg tablet 20 mg PO DAILY Entresto 97-103 mg tablet 1 tab PO BID Xarelto 20 mg tablet 20 mg PO DAILY@1700 nicotine 14 mg/24 hr patch 24 hour 1 patch topical DAILY Jardiance 25 mg tablet 25 mg PO DAILY metolazone 2.5 mg Tablet 2.5 mg PO DAILY PRN (Reason: Edema) ZzzQuil 50 mg/30 mL Liquid 50 mg PO BEDTIME PRN (Reason: Sleep) insulin glargine [Lantus Solostar U-100 Insulin] 100 unit/mL (3 mL) insulin pen 5 unit subcut BEDTIME Qty: 1 0RF furosemide [Lasix] 40 mg tablet 80 mg PO BID@0800,1400 insulin aspart U-100 100 unit/mL (3 mL) insulin pen 1 sliding scale dose subcut TIDAC atorvastatin 80 mg tablet 80 mg PO BEDTIME Referrals: [facility] [Provider Group] Print Language: Senegalese
[2023-12-14 11:11] VITALS: BP 131/65; PULSE 84; RESP 16; TEMP 36.3; O2SAT 95
[2023-12-14 11:16] VITALS: BP 131/65; PULSE 84; RESP 16; TEMP 36.3; O2SAT 95
== END 2023-12-14 11:16 | disposition home or self-care (01) ==
PROVIDERS: Emergency Provider Emergency Medicine; PCP Internal Medicine
DX: S62.630A Displaced fracture of distal phalanx of right index finger, initial encounter for closed fracture (principal); X58.XXXA Exposure to other specified factors, initial encounter; Y93.9 Activity, unspecified; Y92.9 Unspecified place or not applicable; Y99.9 Unspecified external cause status
CPT/HCPCS: 29130; 73140; 99283

== ENCOUNTER 2023-12-16 10:14 | Outpatient (REF) | payer OTHER, SELFPAY ==
[2021-10-15 11:10] VITALS: BP 110/70; BMI 46.0
--- NOTE | ~2023-12-16 | XR_ITS ---
EXAMINATION: XR HAND, RIGHT CLINICAL INFORMATION: Right hand pain at the index finger. COMPARISON: 12/14/2023 TECHNIQUE: PA, lateral, and oblique views of the right hand. FINDINGS: Again seen is an avulsion fracture at the dorsal margin of the index finger distal phalangeal base. There is dorsal displacement of the dorsal fragment by 3 mm, unchanged. Soft tissues are swollen. Slight palmar displacement of the distal fracture fragment. No additional fractures. There is [id number] multifocal osteoarthritis in the interphalangeal joints with joint space narrowing and marginal osteophytes. More mild osteoarthritis at the MCP joints, triscaphe joint, and first CMC joint. Soft tissues are swollen. XR/XR hand RT min 3V IMPRESSION: Unchanged alignment of the avulsion fracture at the dorsal margin of the index finger distal phalangeal base. Electronically signed by: Santiago Quesada MD 01/08/2024 10:11 PM EDT
== END 2023-12-16 10:15 | disposition home or self-care (01) ==
LOC: HO.HOSX 10:14
PROVIDERS: PCP Internal Medicine; Visit Provider Orthopaedic Surgery
DX: M79.641 Pain in right hand (principal); S62.630D Displaced fracture of distal phalanx of right index finger, subsequent encounter for fracture with routine healing
CPT/HCPCS: 26750; 73130; 99212

== ENCOUNTER 2023-12-16 10:14 | Outpatient (AMB) | payer OTHER, SELFPAY ==
[2021-10-15 11:10] VITALS: BP 110/70; BMI 46.0
--- NOTE | 2023-12-16 11:25 | MHC.OFFVIS ---
Vital Signs 12/16/23 11:27 Height 4 ft 11 in Weight 216 lb BMI 43.6 Intake Visit Reasons: FC-Fx of distal phalanx of finger of right hand Intake Note: La Nena is a 68 yo right hand dominant female who presents today for an ED follow up s/p fracture to the right index distal phalanx, DOI 12/11/23, that occurred while preventing a fall. Patient reports pain and redness began 12/11/23. Patient denies numbness and tingling. Denies locking of finger. Patient describes pain as throbbing radiating from the DIP joint to the hand. Patient states pain is worse with certain movements, however, she is wearing a finger splint that has helped with pain. Patient is currently taking TYlenol for pain without relief. Reports prior CTR done many years ago. Allergies No Known Allergies Allergy (Verified 12/16/23 11:27) HPI HPI FC-Fx of distal phalanx of finger of right hand: Details: La Nena is a 68 year old right hand dominant woman who presents for a right index finger fracture, DOI: 12/11/23. She reports catching herself from falling on 12/11/23, and injuring her index finger. She was seen in the ED on 12/14/23, placed in a finger splint and referred here. She complains of pain in her right index finger, along with swelling. Her pain is primarily at her DIP joint and extends to the back of her hand. She describes her pain as throbbing, and says it is worse with motion. Wearing her finger splint helps her. She denies any numbness, tingling, locking, or catching. She has a Hx of DM, CAD, CHF, implanted defibrillator, DE, and ectodermal dysplasia. She is on Xarelto and Jardiance. FORMERLY [facility], 1928–1983 Medical History CHF (congestive heart failure) Sleep apnea Presence of CardioMEMS HF system Hx of myocardial infarction Anxiety and depression Osteoarthritis Fatty liver Restrictive lung disease TAQUERIA treated with BiPAP Morbid obesity Biventricular ICD (implantable cardioverter-defibrillator) in place CAD (coronary artery disease) Non-rheumatic aortic stenosis Atherosclerotic cardiovascular disease Acute on chronic systolic and diastolic heart failure, NYHA class 3 Leukocytosis Dyspnea Transaminitis Hypoxia Congestive heart failure TAQUERIA (obstructive sleep apnea) NSVT (nonsustained ventricular tachycardia) Cardiomyopathy Chronic systolic heart failure Diabetes mellitus HLD (hyperlipidemia) HTN (hypertension) Surgical History History of incision and drainage Status post coronary artery bypass graft Stented coronary artery Hx of CABG History of cardiac cath Hx of cardiac cath Hx of cardiac cath Hx of appendectomy History of cholecystectomy Family History Father No problems noted. Mother No problems noted. Social History Household Members: Family Household Members Other:: son and daughter in law Housing: Apartment Are you a primary neonatal critical care nurse to a significant other at home: No Do you presently have visiting nurse or other home services: No Alcohol intake: never Comment: chronic back pain Patient Tobacco Use Status: Former Tobacco user Tobacco use type: Cigarette Cigarette Packs Per Day: 1 Years Smoked: 30 e-Cigarette/Vaping Use: Former Use Second Hand Smoke Exposure: Yes Advance Directives Date on File: 11/07/22 service: No Current occupational status: unemployed and disabled Current occupation: rt hand Review of Systems Const All systems reviewed & are unremarkable except as noted in HPI and below Physical Exam Vital Signs: BMI result Body Mass Index 43.6 Const General: cooperative, healthy appearing and no acute distress Orientation/consciousness: patient oriented x3 HEENT Head: Yes normocephalic and Yes atraumatic Eyes EOM: EOMs intact bilaterally Resp Effort & Inspection: normal respiratory effort and able to speak in complete sentences Cardio Jugular venous distension: no JVD Skin General skin exam: turgor normal Rashes: no rashes Neuro General: patient oriented x3 Extrem Other: Evaluation of Right Upper Extremity: The patient is alert, oriented, and in no acute distress Neuro: Median, Ulnar, Radial nerves motor and sensory intact and sensation is normal to the tips of all digits Vascular: Cap refill brisk ROM: She was keeping index finger extended and splinted, and at 1st she found difficult to try and move her finger in clinic. She was able to weakly demonstrate flexion at the PIP joint Before leaving clinic, she was able to flex her MCP joint & PIP joint both to 90 degrees, and bring them back into extension Mildly tender at the fracture site She has an ~15 degree mallet deformity of the index finger DIP joint Skin: No lacerations or abrasions. General: No Ecchymosis. No Erythema or evidence of infection. Nail plate deformities in all of her finger nails. Radiographs: 3 views of the right hand, with attention to the index finger, show an index finger fracture of the dorsal base of the distal phalanx causing a mallet deformity. Psych Appearance: grossly normal Affect: normal affect Attitude: cooperative Office Procedures Fracture Care Details: Fracture care right index finger distal phalanx fracture [id number] Fracture Billing Code: Fracture Billing Code Assessment & Plan Assessment & Plan (1) Closed fracture of distal phalanx of right index finger: Code(s): S62.630A - Displaced fracture of distal phalanx of right index finger, initial encounter for closed fracture Category: Medical (2) Closed mallet fracture of distal phalanx of right index finger: Code(s): S62.630A - Displaced fracture of distal phalanx of right index finger, initial encounter for closed fracture Category: Medical Plan Assessment & Plan: 1. Right index finger fracture of the dorsal base of the distal phalanx S/P fall, DOI: 12/11/23 2. Right index finger DIP joint mallet deformity Of ~15 degrees I educated her about these conditions I discussed operative and non-operative treatment options I believe we can manage this non-operatively. She was fitted for a finger spica splint, that allows for MCP & PIP joint flexion, to be worn / for the next 6 weeks. until her next appointment She was given a spare splint to allow for hygiene purposes I discussed activity modification, she is to avoid bending her index finger DIP joint for the next 6 weeks. She will work on MCP & PIP joint ROM exercises for her index finger, while in her splint She will follow up in 6 weeks, with X-rays, 3V attn R IF Scribed for Lacey Valle MD by Isidro Carrillo, medical assisting program director, on 12/16/23 at 12:05 PM, EST. Orders: Orders XR hand RT min 3V Today M79.641 - Pain in right hand Coding Level of Care Code Est Pt Level 4 (46865) Diagnoses Closed fracture of distal phalanx of right index finger S62.630A Closed mallet fracture of distal phalanx of right index finger S62.630A CPT Codes Fracture Care - Fracture Billing Code: Fracture Billing Code ([id number])
[2023-12-16 11:27] VITALS: BMI 43.6
== END 2023-12-16 12:09 | disposition home or self-care (01) ==
PROVIDERS: PCP Internal Medicine; Visit Provider Orthopaedic Surgery
DX: S62.630A Displaced fracture of distal phalanx of right index finger, initial encounter for closed fracture (principal)
CPT/HCPCS: 26750; 99214

== ENCOUNTER 2023-12-25 13:03 | Outpatient (REF) | payer OTHER, SELFPAY ==
[2021-10-15 11:10] VITALS: BP 110/70; BMI 46.0
--- NOTE | ~2023-12-25 | XR_ITS ---
EXAMINATION: XR HAND, RIGHT CLINICAL INFORMATION: Right hand pain. COMPARISON: 12/16/2023 TECHNIQUE: PA, lateral, and oblique views of the right hand. FINDINGS: Dorsal displacement of the dorsal avulsion fracture at the index finger distal phalanx is slightly increased as compared to prior, increased by 0.5 mm. No new fractures. Soft tissues are swollen. [id number] multifocal osteoarthritis in the rest of the hand and wrist, most likely at the other interphalangeal joints and at the first CMC joint. Soft tissues are swollen. XR/XR hand RT min 3V IMPRESSION: Slight increase in dorsal displacement of the dorsal avulsion fracture at the index finger distal phalanx. Electronically signed by: Santiago Quesada MD 01/10/2024 09:35 PM EDT
== END 2023-12-25 13:04 | disposition home or self-care (01) ==
LOC: HO.HOSX 13:03
PROVIDERS: PCP Internal Medicine
DX: S62.630D Displaced fracture of distal phalanx of right index finger, subsequent encounter for fracture with routine healing (principal)
CPT/HCPCS: 73130; 99212

== ENCOUNTER 2023-12-25 13:28 | Outpatient (AMB) | payer OTHER, SELFPAY ==
[2021-10-15 11:10] VITALS: BP 110/70; BMI 46.0
--- NOTE | 2023-12-25 13:40 | A.OFFVIS_ITS ---
Vital Signs 12/25/23 13:41 Handedness Right Intake Visit Reasons: OV-Fx of RT IF wound check Intake Note: La Nena is a 68 year old right hand dominant female who presents for a follow up for her right index finger fracture, DOI: 12/11/23. Patient expresses Dr. Valle prescribed her antibiotics but this did not improve her symptoms. She expresses constant daily pain at the tip of her index finger, swelling at her DIP joint. When she attempts to bend her fingers to work on her ROM she experiences sharp pains that shoots up her index finger. She is left handed so this makes it difficult to do certain activities such as dish washing. Tylenol does not give her relief. She has DM so is unable to try NSAIDs. Allergies No Known Allergies Allergy (Verified 12/25/23 13:45) HPI HPI OV-Fx of RT IF wound check: Details: Patient is a 68 YO F who presents for wound check on Rt IF mallet finger with avulsion fracture. The patient reports that she is still experiencing significant discomfort in the area of the avulsion fracture, but that she has not noticed any change in her symptoms due to antibiotics prescribed at last visit. The patient reports that her right index finger distal phalanx is slightly more red and swollen in the left, but that there is no laceration, abrasion, or open area on that finger. Of note, the patient is not wearing the finger splint previously given by Dr. Valle during evaluation today, and states that they removed it for x-rays. Patient denies any numbness or tingling in the right upper extremity. No other acute complaints or concerns at time. [facility] Medical History CHF (congestive heart failure) Sleep apnea Presence of CardioMEMS HF system Hx of myocardial infarction Anxiety and depression Osteoarthritis Fatty liver Restrictive lung disease TAQUERIA treated with BiPAP Morbid obesity Biventricular ICD (implantable cardioverter-defibrillator) in place CAD (coronary artery disease) Non-rheumatic aortic stenosis Atherosclerotic cardiovascular disease Acute on chronic systolic and diastolic heart failure, NYHA class 3 Leukocytosis Dyspnea Transaminitis Hypoxia Congestive heart failure TAQUERIA (obstructive sleep apnea) NSVT (nonsustained ventricular tachycardia) Cardiomyopathy Chronic systolic heart failure Diabetes mellitus HLD (hyperlipidemia) HTN (hypertension) Surgical History History of incision and drainage Status post coronary artery bypass graft Stented coronary artery Hx of CABG History of cardiac cath Hx of cardiac cath Hx of cardiac cath Hx of appendectomy History of cholecystectomy Family History Father No problems noted. Mother No problems noted. Social History Household Members: Family Household Members Other:: son and daughter in law Housing: Apartment Are you a primary critical care rn to a significant other at home: No Do you presently have visiting nurse or other home services: No Alcohol intake: never Comment: chronic back pain Patient Tobacco Use Status: Former Tobacco user Tobacco use type: Cigarette Cigarette Packs Per Day: 1 Years Smoked: 30 e-Cigarette/Vaping Use: Former Use Second Hand Smoke Exposure: Yes Advance Directives Date on File: 11/07/22 service: No Current occupational status: unemployed and disabled Current occupation: rt hand Review of Systems Const All systems reviewed & are unremarkable except as noted in HPI and below Physical Exam Extrem Other: Patient is alert, oriented, and in no acute distress. Neuro: Patient reports normal sensation to the tips of all digits of the right hand at this time Vascular: Cap refill brisk Pain: Patient reports significant tenderness to palpation at the DIP joint and distal phalanx of the right index finger Patient reports no tenderness to palpation of the any of the other digits of the right hand at this time ROM: Patient is able to actively flex at the PIP and MCP joints of the right index finger without difficulty Patient is able to make a closed fist with all other digits of the right hand without difficulty Skin: No lacerations or abrasions. General: There is noted To Be Very Mild Edema Of The distal phalanx and D IP joint of the right index finger There is noted to be some very mild erythema at the DIP joint of the right index finger, however when compared to other fingers all appear to have some mild erythema No evidence of infection noted No lacerations, abrasions, open areas noted Psych: Appears grossly normal Affect normal Attitude cooperative Results Reviewed Results Reviewed: X-rays obtained in the office today and independently reviewed by me, Cuba Luu PA-C, demonstrate displaced avulsion fracture of the dorsal aspect of the distal phalanx at the level of the joint, largely unchanged from previous x- rays. Assessment & Plan Assessment & Plan (1) Closed mallet fracture of distal phalanx of right index finger: Code(s): S62.630A - Displaced fracture of distal phalanx of right index finger, initial encounter for closed fracture Category: Medical Plan 1. Mallet finger with associated avulsion fracture of the right index finger Date of injury 12/11/2023 Due to lack of improvement on antibiotics, as well as lack of symptoms concerning for infection, the patient does not require another course of antibi otics at this time At this time, due to the splint being removed, patient is informed that she will need to restart the 6 weeks of 24 hours splinting Patient is amenable to this plan Patient will keep previously scheduled follow-up with Dr. Valle for reassessment, or present sooner with any acute concerns Orders: Orders XR hand RT min 3V 12/25/23 M79.641 - Pain in right hand Coding Level of Care Code Est Pt Level 3 (84430) Global (12006) Diagnoses Closed mallet fracture of distal phalanx of right index finger S62.630A
== END 2023-12-25 14:00 | disposition home or self-care (01) ==
PROVIDERS: PCP Internal Medicine
DX: S62.630A Displaced fracture of distal phalanx of right index finger, initial encounter for closed fracture (principal)
CPT/HCPCS: 99024

== ENCOUNTER 2024-01-27 10:21 | Outpatient (REF) | payer OTHER, SELFPAY ==
[2021-10-15 11:10] VITALS: BP 110/70; BMI 46.0
--- NOTE | ~2024-01-27 | XR_ITS ---
EXAMINATION: XR HAND, RIGHT CLINICAL INFORMATION: Right hand pain. COMPARISON: Right hand radiographs dated 12/25/2023. TECHNIQUE: PA, lateral, and oblique views of the right hand. FINDINGS: Redemonstration of an avulsion fracture along the dorsal base of the second distal phalanx with the fracture gap measuring up to 0.2 cm, unchanged when compared to the prior examination. No new fracture or dislocation. Joint space narrowing with marginal osteophytes throughout the intercarpal, metacarpophalangeal, and interphalangeal joints, unchanged. No new osseous erosion. No abnormal soft tissue calcification. XR/XR hand RT min 3V IMPRESSION: 1. Dorsal avulsion fracture at the base of the second distal phalanx, unchanged. 2. Degenerative arthritis throughout the right hand, not significantly changed. Electronically signed by: Nic Ward MD 02/04/2024 11:11 AM EDT
== END 2024-01-27 10:22 | disposition home or self-care (01) ==
LOC: HO.HOSX 10:21
PROVIDERS: Visit Provider Orthopaedic Surgery
DX: M79.641 Pain in right hand (principal); S62.630D Displaced fracture of distal phalanx of right index finger, subsequent encounter for fracture with routine healing; M20.011 Mallet finger of right finger(s)
CPT/HCPCS: 73130; 99212

== ENCOUNTER 2024-01-27 12:10 | Outpatient (AMB) | payer OTHER, SELFPAY ==
[2021-10-15 11:10] VITALS: BP 110/70; BMI 46.0
--- NOTE | 2024-01-27 12:29 | A.OFFVIS_ITS ---
Vital Signs 01/27/24 12:32 Height 4 ft 11 in Weight 216 lb BMI 43.6 Intake Visit Reasons: OV-Fx of RT IF Intake Note: La Nena is a 68 year old right hand dominant female who presents for a follow up for her right index finger fracture, DOI: 12/11/23. Patient reports ongoing redness and tenderness at the DIP joint of the right index finger. She also reports there is numbness. Patient is able to make a fist, with pain. She states Tylenol does not help her pain. She continues to wear a finger splint that she changes when it gets wet and dirty. Patient has completed abx treatment. Allergies No Known Allergies Allergy (Verified 01/27/24 12:38) HPI HPI OV-Fx of RT IF: Details: La Nena is a 68 year old right hand dominant woman who returns for her right index finger distal phalanx fracture & mallet deformity, DOI: 12/11/23. She reports catching herself from falling on 12/11/23, and injuring her index finger. She was seen in the ED on 12/14/23. She was last seen by OTTO Brink on 12/25/23 with complaints of pain, and her finger splint was removed for radiographs. She says that she has been wearing her splint since that appointment. She says she still has some discomfort in the right index D IP joint. She denies any numbness, tingling, locking, or catching. She has a Hx of DM, CAD, CHF, implanted defibrillator, MA, and ectodermal dysplasia. She is on Xarelto and Jardiance. [facility] Medical History CHF (congestive heart failure) Sleep apnea Presence of CardioMEMS HF system Hx of myocardial infarction Anxiety and depression Osteoarthritis Fatty liver Restrictive lung disease TAQUERIA treated with BiPAP Morbid obesity Biventricular ICD (implantable cardioverter-defibrillator) in place CAD (coronary artery disease) Non-rheumatic aortic stenosis Atherosclerotic cardiovascular disease Acute on chronic systolic and diastolic heart failure, NYHA class 3 Leukocytosis Dyspnea Transaminitis Hypoxia Congestive heart failure TAQUERIA (obstructive sleep apnea) NSVT (nonsustained ventricular tachycardia) Cardiomyopathy Chronic systolic heart failure Diabetes mellitus HLD (hyperlipidemia) HTN (hypertension) Surgical History History of incision and drainage Status post coronary artery bypass graft Stented coronary artery Hx of CABG History of cardiac cath Hx of cardiac cath Hx of cardiac cath Hx of appendectomy History of cholecystectomy Family History Father No problems noted. Mother No problems noted. Social History Household Members: Family Household Members Other:: son and daughter in law Housing: Apartment Are you a primary respiratory care practitioner to a significant other at home: No Do you presently have visiting nurse or other home services: No Alcohol intake: never Comment: chronic back pain Patient Tobacco Use Status: Former Tobacco user Tobacco use type: Cigarette Cigarette Packs Per Day: 1 Years Smoked: 30 e-Cigarette/Vaping Use: Former Use Second Hand Smoke Exposure: Yes Advance Directives Date on File: 11/07/22 service: No Current occupational status: unemployed and disabled Current occupation: rt hand Physical Exam Vital Signs: BMI result Body Mass Index 43.6 Extrem Other: Evaluation of Right Upper Extremity: The patient is alert, oriented, and in no acute distress Neuro: Median, Ulnar, Radial nerves motor and sensory intact and sensation is normal to the tips of all digits Vascular: Cap refill brisk ROM: She initially had some stiffness in the index finger MCP & PIP joints Before leaving clinic she was able to bring her fingers closed to a fist and back into extension She was able to flex & extend her DIP joint to ~20 degrees Mild tenderness over the DIP joint She has an ~10 degree mallet deformity of the index finger DIP joint Skin: No lacerations or abrasions. General: No Ecchymosis. No Erythema or evidence of infection. Nail plate deformities in all of her finger nails. Radiographs: 3 views of the right hand, with attention to the index finger, show an index finger fracture of the dorsal base of the distal phalanx causing a mallet deformity, unchanged from prior. Assessment & Plan Assessment & Plan (1) Closed mallet fracture of distal phalanx of right index finger: Code(s): S62.630A - Displaced fracture of distal phalanx of right index finger, initial encounter for closed fracture Category: Medical (2) Mallet deformity of right index finger: Code(s): M20.011 - Mallet finger of right finger(s) Category: Medical Plan Assessment & Plan: 1. 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 Right index finger DIP joint mallet deformity Of ~15 degrees I educated her about these conditions I discussed operative and non-operative treatment options I believe we can continue to manage this non-operatively. She has been wearing her finger spica splint, that allows for MCP & PIP joint fl exion, 17/11 since her last appointment. Her splint was removed on 12/25/23 for radiographs, and she had to restart the 6 weeks of splinting time. She is currently 4 1/2 weeks into this period. I discussed activity modification, she is to begin using her hand for more normal daily activities today She will discontinue her splint at this time She will work on ROM exercises at home She can follow up prn Scribed for Lacey Valle MD by Isidro Carrillo, medical records specialist, on 01/27/24 at 1:05 PM, EST. Orders: Orders XR hand RT min 3V Today M79.641 - Pain in right hand Coding Level of Care Code Global (55772) Diagnoses Closed mallet fracture of distal phalanx of right index finger S62.630A Mallet deformity of right index finger M20.011
[2024-01-27 12:32] VITALS: BMI 43.6
== END 2024-01-27 13:07 | disposition home or self-care (01) ==
PROVIDERS: PCP Internal Medicine; Visit Provider Orthopaedic Surgery
DX: S62.630A Displaced fracture of distal phalanx of right index finger, initial encounter for closed fracture (principal); M20.011 Mallet finger of right finger(s)
CPT/HCPCS: 99024

== ENCOUNTER → 2024-02-02 23:59 | Outpatient (BNV) | payer OTHER, SELFPAY ==
[2021-10-15 11:10] VITALS: BP 110/70; BMI 46.0
--- NOTE | 2024-02-03 11:50 | MHC.OFFVIS ---
Intake Visit Reasons: Remote device check- [facility] Allergies No Known Allergies Allergy (Verified 01/27/24 12:38) [facility] Medical History CHF (congestive heart failure) Sleep apnea Presence of CardioMEMS HF system Hx of myocardial infarction Anxiety and depression Osteoarthritis Fatty liver Restrictive lung disease TAQUERIA treated with BiPAP Morbid obesity Biventricular ICD (implantable cardioverter-defibrillator) in place CAD (coronary artery disease) Non-rheumatic aortic stenosis Atherosclerotic cardiovascular disease Acute on chronic systolic and diastolic heart failure, NYHA class 3 Leukocytosis Dyspnea Transaminitis Hypoxia Congestive heart failure TAQUERIA (obstructive sleep apnea) NSVT (nonsustained ventricular tachycardia) Cardiomyopathy Chronic systolic heart failure Diabetes mellitus HLD (hyperlipidemia) HTN (hypertension) Surgical History History of incision and drainage Status post coronary artery bypass graft Stented coronary artery Hx of CABG History of cardiac cath Hx of cardiac cath Hx of cardiac cath Hx of appendectomy History of cholecystectomy Family History Father No problems noted. Mother No problems noted. Social History Household Members: Family Household Members Other:: son and daughter in law Housing: Apartment Are you a primary intensive care unit registered nurse to a significant other at home: No Do you presently have visiting nurse or other home services: No Alcohol intake: never Comment: chronic back pain Patient Tobacco Use Status: Former Tobacco user Tobacco use type: Cigarette Cigarette Packs Per Day: 1 Years Smoked: 30 e-Cigarette/Vaping Use: Former Use Second Hand Smoke Exposure: Yes Advance Directives Date on File: 11/07/22 service: No Current occupational status: unemployed and disabled Current occupation: rt hand Office Procedures Cardiac Device Check Cardiac Device Check Details: Remote ICD report generated 02/02/2024. ICD function is adequate. Bi V pacing 96% of time. Frequent PVCs noted [id number] Cardiac Interrogation, implant defibrillator w/interim Procedure code (CPT) selection complete Assessment & Plan Assessment & Plan (1) Biventricular ICD (implantable cardioverter-defibrillator) in place: Comment: [facility] [place] 2015 Code(s): Z95.810 - Presence of automatic (implantable) cardiac defibrillator Category: Medical Plan: See above Coding Level of Care Code Procedure Only Diagnoses Biventricular ICD (implantable cardioverter-defibrillator) in place Z95.810 CPT Codes Cardiac Device Check - Cardiac Device 13: [id number] Cardiac Interrogation, implant defibrillator w/interim ([id number])
== END ==
PROVIDERS: PCP Internal Medicine; Visit Provider Internal Medicine Cardiovascular Disease
DX: I49.3 Ventricular premature depolarization (principal); Z95.810 Presence of automatic (implantable) cardiac defibrillator
CPT/HCPCS: 93295

== ENCOUNTER 2024-02-04 09:31 | Inpatient (IN) | payer OTHER, SELFPAY ==
[2021-10-15 11:10] VITALS: BP 110/70; BMI 46.0
[2024-02-04] VITALS (9 sets, daily range): BP systolic 98–156; BP diastolic 42–77; PULSE 59–97; RESP 14–20; TEMP 36.2–36.6; O2SAT 92–97; BMI 43.8
--- NOTE | ~2024-02-04 | XR_ITS ---
EXAMINATION: XR CHEST CLINICAL INFORMATION: Dyspnea. COMPARISON: Multiple priors, most recent chest radiograph 08/14/2023. TECHNIQUE: Frontal view of the chest was obtained. FINDINGS: Mild, chronic-appearing interstitial prominence, unchanged. No new focal airspace consolidation. Stable cardiomegaly. Sternal wires, mediastinal surgical clips, and left chest wall pacer/AICD in unchanged position. No pleural effusion or pneumothorax. XR/XR chest 1V IMPRESSION: 1. No acute cardiopulmonary findings. 2. Stable cardiomegaly. Electronically signed by: Nic Ward MD 02/04/2024 11:11 AM EDT
--- NOTE | 2024-02-04 09:47 | ECG_ITS ---
Test Reason : SOB Blood Pressure : / mmHG Vent. Rate : 060 BPM Atrial Rate : 060 BPM P-R Int : 156 ms QRS Dur : 124 ms QT Int : 532 ms P-R-T Axes : 064 226 048 degrees QTc Int : 532 ms AV dual-paced rhythm Biventricular pacemaker detected Abnormal ECG When compared with ECG of 14-AUG-2023 17:37, Vent. rate has decreased BY 10 BPM Referred By: Bea Sanders Electronically Signed By:AVTAR POLLACK MD
[2024-02-04 10:15] LABS: MANUAL DIFF FLAG NO
[2024-02-04 10:18] LABS: Basophils Absolute Auto 0.1 X10*3/uL (0.0-0.2); Basophils Percent Auto 0.7 % (0-2); Eosinophils Absolute Auto 0.2 X10*3/uL (0.0-0.4); Eosinophils Percent Auto 2.5 % (0-4); Hematocrit 47.1 % (37.0-47.0); Hemoglobin 15.7 g/dl (12.0-16.0); Imm Gran Abs Auto 0.03 X10*3/uL (0.00-0.03); Imm Gran Pct Auto 0.4 % (0.0-0.4); Lymphocytes Absolute Auto 2.9 X10*3/uL (1.2-4.9); Lymphocytes Percent Auto 34.4 % (20-40); Mean Corpuscular HGB Conc 33.3 g/dl (31.0-35.0); Mean Corpuscular Hemoglobin 30.4 pg (27.0-33.0); Mean Corpuscular Volume 91.3 fL (80.0-98.0); Mean Platelet Volume 12.2 fL (9.4-12.3); Monocytes Absolute Auto 0.5 X10*3/uL (0.1-1.2); Monocytes Percent Auto 5.9 % (2-11); Neutrophils Absolute Auto 4.8 x10*3/uL (2.0-8.3); Neutrophils Percent Auto 56.1 % (45-73); Platelet Count 152 X10*3/uL (160-400); Red Blood Count 5.16 X10*6/uL (4.20-5.50); Red Cell Distribution Width 15.8 % (11.0-16.0); White Blood Count 8.5 X10*3/uL (4.8-10.8)
--- NOTE | 2024-02-04 10:19 | ED.SOB ---
HPI - SOB/Dyspnea General Chief Complaint: Dyspnea Stated Complaint: SOB FOR DAYS PER EMS Time Seen by Provider: 02/04/24 09:55 Source: patient, EMS and old records reviewed Mode of arrival: EMS Limitations: no limitations History of Present Illness ED Provider: XIOMARA SCHROEDER Narrative: 69 yo female with PMH of CHF with biventricular ICD cardiomems, restrictive lung disease, PE on xarelto, respiratory arrest, DM2, HTN, obesity, TAQUERIA on CPAP, CAD s/p CABG 22014 went to routine appointment today and told them she has dyspnea on exertion no chest pain. Dry Cough, unchanged weight she states and no orthopnea. She notes if she starts coughing up white sputum it is usually her CHF. She is compliant with eliquis, no fevers, travel sick contacts or chest pain. She notes she doesn't use her cardiomems device Pertinent past history: congestive heart failure and PE Onset (ago): day(s) (3) Context: occurred during exertion Timing: intermittent Severity: moderate Exacerbating factors: exertion Relieving factors: rest Known history of: congestive heart failure Associated symptoms: denies other symptoms Treatment prior to arrival: none Related Data Home Medications ?Medication ?Instructions ?Recorded ?Confirmed atorvastatin 80 mg tablet 80 mg PO BEDTIME 02/27/20 11/30/23 insulin aspart U-100 100 unit/mL 1 sliding scale dose subcut TIDAC 06/26/20 11/30/23 (3 mL) subcutaneous pen citalopram 20 mg tablet 20 mg PO DAILY 07/21/20 11/30/23 furosemide 40 mg tablet (Lasix) 80 mg PO BID@0800,1400 11/05/22 11/30/23 rivaroxaban 20 mg tablet (Xarelto) 20 mg PO DAILY@1700 08/14/23 11/30/23 sacubitril 97 mg-valsartan 103 mg 1 tab PO BID 08/14/23 11/30/23 tablet (Entresto) diphenhydramine HCl 50 mg/30 mL 50 mg PO BEDTIME PRN Sleep 08/15/23 11/30/23 oral liquid (ZzzQuil) empagliflozin 25 mg tablet 25 mg PO DAILY 08/15/23 11/30/23 (Jardiance) metolazone 2.5 mg tablet 2.5 mg PO DAILY PRN Edema 08/15/23 11/30/23 nicotine 14 mg/24 hr daily 1 patch topical DAILY 08/15/23 11/30/23 transdermal patch Previous Rx's ?Medication ?Instructions ?Recorded carvedilol 25 mg tablet 25 mg PO BID #180 tabs 04/15/22 ipratropium 20 mcg-albuterol 100 1 puff inhalation QID PRN 08/11/23 mcg/actuation mist for inhalation Wheezing/Sob. 90 days #4 grams (Combivent Respimat) insulin glargine 100 unit/mL (3 5 unit (0.05 mL) subcut BEDTIME #1 08/16/23 mL) subcutaneous pen (Lantus mL Solostar U-100 Insulin) Allergies Allergy/AdvReac Type Severity Reaction Status Date / Time No Known Allergies Allergy Verified 02/04/24 09:45 Review of Systems Review of Systems: Constitutional : No Fever, No Chills ENT/Mouth : No sore throat, No Rhinorrhea, No Swallowing Difficulty Eyes: No Eye Pain, No Swelling, No Redness Cardiovascular : No Chest Pain, positive SOB, No Orthopnea, positive Edema Respiratory : No Cough, No Sputum, No Wheezing, positive dyspnea Gastrointestinal : No Nausea, No Vomiting, No Diarrhea, No abdominal Pain, No Hematochezia, No Melena Genitourinary : No Dysuria, No Urinary Frequency, No Hematuria Musculoskeletal : No joint pain, No Myalgias Skin : No Skin Lesions, No rash Neuro : No Weakness, No Numbness, No Dizziness, No Headache Psych : No Anxiety/Panic, No Depression All other systems reviewed and are negative [facility] Past Medical History Attestation statement: The following information was validated with the patient. Source: old records reviewed Medical History CHF (congestive heart failure) Sleep apnea Presence of CardioMEMS HF system Hx of myocardial infarction Anxiety and depression Osteoarthritis Fatty liver Restrictive lung disease TAQUERIA treated with BiPAP Morbid obesity Biventricular ICD (implantable cardioverter-defibrillator) in place CAD (coronary artery disease) Non-rheumatic aortic stenosis Atherosclerotic cardiovascular disease Acute on chronic systolic and diastolic heart failure, NYHA class 3 Leukocytosis Dyspnea Transaminitis Hypoxia Congestive heart failure TAQUERIA (obstructive sleep apnea) NSVT (nonsustained ventricular tachycardia) Cardiomyopathy Chronic systolic heart failure Diabetes mellitus HLD (hyperlipidemia) HTN (hypertension) Surgical History History of incision and drainage Status post coronary artery bypass graft Stented coronary artery Hx of CABG History of cardiac cath Hx of cardiac cath Hx of cardiac cath Hx of appendectomy History of cholecystectomy Family History Family History Father No problems noted. Mother No problems noted. Social History Social History Household Members: Family Household Members Other:: son and daughter in law Housing: Apartment Are you a primary child care group leader to a significant other at home: No Do you presently have visiting nurse or other home services: No Alcohol intake: never Comment: chronic back pain Patient Tobacco Use Status: Former Tobacco user Tobacco use type: Cigarette Cigarette Packs Per Day: 1 Years Smoked: 30 Smoked in Last 30 Days: Yes e-Cigarette/Vaping Use: Former Use Second Hand Smoke Exposure: Yes Use of substances other than those prescribed or required for medical reasons: No Advance Directives: Yes Advance Directives on File: Yes Advance Directives Date on File: 11/07/22 Do you have a plan to hurt others: No Plan service: No Current occupational status: unemployed and disabled Current occupation: rt hand Physical Exam Vital Signs: Vital Signs: Last Vital Signs Temp 97.7 F 02/04/24 10:15 Pulse 61 02/04/24 11:18 Resp 18 02/04/24 11:18 BP 108/69 02/04/24 11:18 Pulse Ox 96 02/04/24 11:18 O2 Del Method Room Air 02/04/24 11:18 BMI result Body Mass Index 43.8 Appearance: Alert. Oriented X3. No acute distress. Eyes: Pupils equal, round and reactive to light. ENT: Pharynx normal. Neck: Normal inspection. Neck supple. CVS: Normal heart rate and rhythm. Pulses normal. Respiratory: No respiratory distress. Breath sounds rales both bases. Abdomen: Soft and non-tender. Skin: Skin warm and dry. Normal skin color. Normal skin turgor. Extremities: symmetric pitting 1+ lower extremity edema. Neuro: Oriented X 3. No motor deficit. No sensory deficit. Medications Administered Discontinued Medications Generic Name Dose Route Start Last Admin Trade Name Freq PRN Reason Stop Dose Admin Furosemide 40 mg 02/04/24 10:54 02/04/24 11:15 Furosemide 40 Mg/4 Ml Vial IVPUSH 02/04/24 10:55 40 mg STAT STA Administration Protocol Medical Decision Making Medical Decision Making [facility] Narrative: 69 yo female with PMH of CHF with biventricular ICD cardiomems, restrictive lung disease, PE on xarelto, respiratory arrest, DM2, HTN, obesity, TAQUERIA on CPAP, CAD s/p CABG 2V 2014 here with 3 days of CLEMENT does not use her mems device at this time has pitting edema and crackles on exam. No chest pain, compliant with her DOAC doubt VTE. Doubt ACS will obtain basic labs, CXR, EKG, BNP - start on IV lasix. She denies any infectious symptoms to suggest URI. She denies GIB symptoms to suggest anemia Differential Diagnosis Differential Diagnoses: The differential diagnosis associated with the presentation includes ACS, CHF Admission/Observation Consideration of admission/observation: Escalation of care including admission/observation considered admit for diuresis Consult Healthcare Provider Management of the patient was discussed with: Hospitalist (will admit) Lab Data [facility] Lab Attestation statement: I reviewed the patient's lab results. trop at her baseline 02/04/24 10:08 02/04/24 10:59 Labs: Lab Results 02/04/24 02/04/24 02/04/24 Range/Units 10:08 10:23 10:59 WBC 8.5 (4.8-10.8) X10*3/uL RBC 5.16 (4.20-5.50) X10*6/uL Hgb 15.7 (12.0-16.0) g/dl Hct 47.1 H (37.0-47.0) % MCV 91.3 (80.0-98.0) fL MCH 30.4 (27.0-33.0) pg MCHC 33.3 (31.0-35.0) g/dl RDW 15.8 (11.0-16.0) % Plt Count 152 L (160-400) X10*3/uL MPV 12.2 (9.4-12.3) fL Immature Gran % (Auto) 0.4 (0.0-0.4) % Neut % (Auto) 56.1 (45-73) % Lymph % (Auto) 34.4 (20-40) % [place] % (Auto) 5.9 (2-11) % Eos % (Auto) 2.5 (0-4) % Baso % (Auto) 0.7 (0-2) % Lymph # (Auto) 2.9 (1.2-4.9) X10*3/uL [place] # (Auto) 0.5 (0.1-1.2) X10*3/uL Eos # (Auto) 0.2 (0.0-0.4) X10*3/uL Baso # (Auto) 0.1 (0.0-0.2) X10*3/uL Abs Immat Gran (auto) 0.03 (0.00-0.03) X10*3/uL Absolute Neuts (auto) 4.8 (2.0-8.3) x10*3/uL Absolute Nucleated RBC 0.000 (0.0-0.012) X10*3/uL Nucleated RBC % (auto) 0.0 (0.0-0.2) /100WBC Sodium 141 (135-145) mmol/L Potassium 4.0 (3.3-5.1) mmol/L Chloride 105 (96-108) mmol/L Carbon Dioxide 25 (22-29) mmol/L Anion Gap 15 (12-20) BUN 20 H (9-16) mg/dL Creatinine 1.20 (0.5-1.4) mg/dL Estim Creat Clear Calc 44.9 Estimated GFR 44 Random Glucose 152 H (60-115) mg/dL Calcium 9.6 (8.4-10.2) mg/dL Magnesium 2.3 (1.6-2.6) mg/dL Total Bilirubin 1.1 H (0.0-1.0) mg/dL Direct Bilirubin 0.4 (0.0-0.5) mg/dL AST 20 (5-31) U/L ALT 18 (0-31) U/L Alkaline Phosphatase 143 H (39-117) U/L Troponin I High Sens 470.0 H* (<3.5-17.0) ng/L B-Natriuretic Peptide 797 H (<100) pg/mL Total Protein 7.5 (6.5-8.0) g/dL Albumin 4.2 (3.5-5.0) g/dL Lipase 32 (8-78) U/L Influenza Type A (PCR) NEGATIVE (Negative) Influenza Type B (PCR) NEGATIVE (Negative) RSV RNA Qual (PCR) NEGATIVE (Negative) SARS-CoV-2 RNA (RT-PCR) NEGATIVE (Negative) Independent Interpretation I performed an independent interpretation of an: EKG and Plain X-Ray (cardiomegaly) Interpretation: Rate: 60 Rhythm: paced [place]: left Normal P waves. Normal YEYO. wide QRS complex. ST T wave : inverted t waves aVL, no ANALI qTC:532 prior studies: paced unchanged The study has been interpreted contemporaneously by me. . Radiology Impression Discussion of test interpretation with radiology: I have reviewed the radiologist's reading. Independent Historian Clinical information obtained from an independent historian. History obtained from or confirmed by: EMS External Record Review External record reviewed: Inpatient record and Office record Discharge Plan Discharge Clinical Impression: Acute on chronic combined systolic (congestive) and diastolic (congestive) heart failure Patient Disposition: Admitted As Inpatient Print Language: Maori
[2024-02-04 10:43] LABS: B Type Natriuretic Peptide 797 pg/mL (<100)
[2024-02-04 11:09] LABS: Influenza A PCR NEGATIVE (Negative); Influenza B PCR NEGATIVE (Negative); Resp Syncy Virus RNA Qual PCR NEGATIVE (Negative); SARS COV2 PCR INHOUSE NEGATIVE (Negative)
[2024-02-04] MEDS: Furosemide 40 MG/4 ML VIAL IVPUSH (11:15)
[2024-02-04 11:22] LABS: Alanine Aminotransferase 18 U/L (0-31); Albumin Level 4.2 g/dL (3.5-5.0); Alkaline Phosphatase 143 U/L (39-117); Anion Gap 15 (12-20); Aspartate Amino Transferase 20 U/L (5-31); Bilirubin Direct 0.4 mg/dL (0.0-0.5); Bilirubin Total 1.1 mg/dL (0.0-1.0); Blood Urea Nitrogen 20 mg/dL (9-16); Calcium 9.6 mg/dL (8.4-10.2); Carbon Dioxide 25 mmol/L (22-29); Chloride 105 mmol/L (96-108); Creatinine Clr Calc Pharmacy 44.9; Estimated Glomerular Filt Rate 44; Glucose Random 152 mg/dL (60-115); Lipase 32 U/L (8-78); Magnesium 2.3 mg/dL (1.6-2.6); Sodium 141 mmol/L (135-145); Total Protein 7.5 g/dL (6.5-8.0)
--- NOTE | 2024-02-04 11:48 | P.HPHOSP_ITS ---
History of Present Illness Date of Service: 02/04/24 Attending physician on admission: [facility] Chief Complaint: SOB, CLEMENT Pt is a 69-year-old female with a PMH significant for HFrEF 30-65%, CAD s/p CABG x2, PE c/b HI in 10/2023 on Xarelto, s/p biventricular ICD and CardioMEMS in place, COPD, TAQUERIA on CPAP, and insulin-dependent type 2 diabetes who presents to the ED with?SOB, CLEMENT, and nonproductive cough x3 days. Patient reports CLEMENT so severe would get out of breath with just a few steps. Also experienced chills though no fever. Has chronic lower leg edema, unable to determine if increased or not. Patient reports felt slightly better today and was able to walk more. Had appointment with her primary care at [facility] who sent her to the ED for further evaluation after examination and hearing her symptoms. Patient reports has been compliant with all of her medications. Denies chest pain/pressure, palpitations. No nausea, vomiting, abdominal pain. Currently smoking less than 1 pack daily. In the ED pt was initially hypertensive up to 156/72 vitals otherwise WNL and stable. Labs were significant for troponin 470.0 (around baseline) and BNP 797 (elevated from 158 on 08/16/2023). No leukocytosis. Stable H&H. No significant electrolyte abnormalities. Renal and hepatic function WNL. Tested negative flu, RSV, COVID. CXR showed stable cardiomegaly with no acute cardiopulmonary finding. EKG demonstrated AV dual paced rhythm with QTc of 532 but no evidence of significant ST elevations or depressions, similar to previous. Pt was treated with Lasix 40 mg IV. Pt will be admitted to the hospital for treatment and further evaluation of acute decompensated HFrEF exacerbation. Review of Systems 2 Review of Systems: SOB, CLEMENT Non productive cough Chills Chronic lower leg edema Denies chest pain/pressure No fever Denies N/V/abd pain [facility] Medical History CHF (congestive heart failure) Sleep apnea Presence of CardioMEMS HF system Hx of myocardial infarction Anxiety and depression Osteoarthritis Fatty liver Restrictive lung disease TAQUERIA treated with BiPAP Morbid obesity Biventricular ICD (implantable cardioverter-defibrillator) in place CAD (coronary artery disease) Non-rheumatic aortic stenosis Atherosclerotic cardiovascular disease Acute on chronic systolic and diastolic heart failure, NYHA class 3 Leukocytosis Dyspnea Transaminitis Hypoxia Congestive heart failure TAQUERIA (obstructive sleep apnea) NSVT (nonsustained ventricular tachycardia) Cardiomyopathy Chronic systolic heart failure Diabetes mellitus HLD (hyperlipidemia) HTN (hypertension) Family History Father No problems noted. Mother No problems noted. Surgical History History of incision and drainage Status post coronary artery bypass graft Stented coronary artery Hx of CABG History of cardiac cath Hx of cardiac cath Hx of cardiac cath Hx of appendectomy History of cholecystectomy Social History Household Members: Family Household Members Other:: son and daughter in law Housing: Apartment Are you a primary disabilities caregiver to a significant other at home: No Do you presently have visiting nurse or other home services: No Alcohol intake: never Comment: chronic back pain Patient Tobacco Use Status: Never used Tobacco Tobacco use type: Cigarette Cigarette Packs Per Day: 1 Years Smoked: 30 Smoked in Last 30 Days: Yes e-Cigarette/Vaping Use: Never Used Patient Interested in Nicotine Replacement: No Patient Given Instructions on How to Stop Smoking: Yes Date Education Initiated: 02/04/24 Second Hand Smoke Exposure: No Use of substances other than those prescribed or required for medical reasons: No Currently Displaying Signs/Symptoms of Drug Intoxication Withdrawal: No Any prior treatment program specific to substance use: No Have you been hit, kicked, punched, or otherwise hurt by someone within the past year? If so, by whom?: No Do you feel safe in your current relationship?: Yes Is there a partner from a previous relationship who is making you feel unsafe now?: No Are you made to feel afraid or neglected: No Advance Directives: Yes Advance Directives on File: Yes Advance Directives Date on File: 11/07/22 Do you have a plan to hurt others: No Plan Recently lost weight without trying: No Eating poorly because of decreased appetite: No Nutrition Risks: No Nutritional Risk Patient : No : No Poor oral hygiene: No service: No Current occupational status: unemployed and disabled Current occupation: rt hand Meds Allergies Allergy/AdvReac Type Severity Reaction Status Date / Time No Known Allergies Allergy Verified 02/04/24 09:45 Home Medications ?Medication ?Instructions ?Recorded ?Confirmed ?Last Taken ?Type atorvastatin 80 mg tablet 80 mg PO BEDTIME 02/27/20 02/04/24 02/04/24 History insulin aspart U-100 100 unit/mL 1 sliding scale dose subcut TIDAC 06/26/20 02/04/24 02/04/24 History (3 mL) subcutaneous pen citalopram 20 mg tablet 20 mg PO DAILY 07/21/20 02/04/24 02/04/24 History furosemide 40 mg tablet (Lasix) 80 mg PO BID 11/05/22 02/04/24 02/04/24 History rivaroxaban 20 mg tablet (Xarelto) 20 mg PO DAILY@1700 08/14/23 02/04/24 02/04/24 History sacubitril 97 mg-valsartan 103 mg 1 tab PO BID 08/14/23 02/04/24 02/04/24 History tablet (Entresto) diphenhydramine HCl 50 mg/30 mL 50 mg PO BEDTIME PRN Sleep 08/15/23 02/04/24 Unknown History oral liquid (ZzzQuil) empagliflozin 25 mg tablet 25 mg PO DAILY 08/15/23 02/04/24 02/04/24 History (Jardiance) insulin glargine 100 unit/mL (3 28 unit subcut BEDTIME 02/04/24 02/04/24 02/04/24 History mL) subcutaneous pen (Lantus Solostar U-100 Insulin) Physical Exam 2 Vital Signs and Narrative: Vital Signs: Last Vital Signs Temp 97.7 F 02/04/24 10:15 Pulse 61 02/04/24 11:18 Resp 18 02/04/24 11:18 BP 108/69 02/04/24 11:18 Pulse Ox 96 02/04/24 11:18 O2 Del Method Room Air 02/04/24 11:18 BMI result Body Mass Index 43.8 General: AOx3, no acute distress Resp: CTA bilaterally CVS: S1, S2, RRR GI: +BS, NT, no distention Skin: Warm, dry Neuro: Cranial nerves II-XII grossly intact bilaterally. Motor grossly intact bilaterally Extremities: 1+ bilateral pitting edema Psych: Appropriate affect Results Labs 02/04/24 10:08 02/05/24 06:10 Labs: Laboratory Results - last 24 hr 02/04/24 02/04/24 02/04/24 10:08 10:23 10:59 MCV 91.3 MCH 30.4 MCHC 33.3 RDW 15.8 Plt Count 152 L MPV 12.2 Immature Gran % (Auto) 0.4 Neut % (Auto) 56.1 Lymph % (Auto) 34.4 [place] % (Auto) 5.9 Eos % (Auto) 2.5 Baso % (Auto) 0.7 Lymph # (Auto) 2.9 [place] # (Auto) 0.5 Eos # (Auto) 0.2 Baso # (Auto) 0.1 Abs Immat Gran (auto) 0.03 Absolute Neuts (auto) 4.8 Absolute Nucleated RBC 0.000 Nucleated RBC % (auto) 0.0 Anion Gap 15 Estim Creat Clear Calc 44.9 Estimated GFR 44 Random Glucose 152 H Calcium 9.6 Magnesium 2.3 Total Bilirubin 1.1 H Direct Bilirubin 0.4 AST 20 ALT 18 Alkaline Phosphatase 143 H Troponin I High Sens 470.0 H* B-Natriuretic Peptide 797 H Total Protein 7.5 Albumin 4.2 Lipase 32 Influenza Type A (PCR) NEGATIVE Influenza Type B (PCR) NEGATIVE RSV RNA Qual (PCR) NEGATIVE SARS-CoV-2 RNA (RT-PCR) NEGATIVE Imaging Radiologist's Impressions: Impressions Chest X-Ray 02/04/24 09:47 IMPRESSION: 1. No acute cardiopulmonary findings. 2. Stable cardiomegaly. Electronically signed by: Nic Ward MD 02/04/2024 11:11 AM EDT RP Assessment and Plan (1) Systolic heart failure: Status: Acute Plan Pt is a 69-year-old female with a PMH significant for HFrEF 30-35%, CAD s/p CABG x2, PE c/b HI in 10/2023 on Xarelto, s/p biventricular ICD and CardioMEMS in place, COPD, TAQUERIA on CPAP, and insulin-dependent type 2 diabetes who presents to the ED with?SOB, CLEMENT, and nonproductive cough x3 days. Pt will be admitted to the hospital for treatment and further evaluation of acute decompensated HFrEF exacerbation. Acute on chronic HFrEF with acute decompensation Increased SOB, CLEMENT, nonproductive x3 days, elevated BNP, bilateral leg edema Treat with furosemide 40 mg IV b.i.d. Continue carvedilol, Entresto Follow up Mag meng, I/O Echocardiogram 09/18/23 showed ED 30-35% w/elevated filling pressures Monitor on telemetry Elevated troponin Troponin 470.0, in line with previous, at baseline Patient asymptomatic, EKG without ischemic changes Will repeat troponin HLD/CAD Continue statin Hx of PE Continue Xarelto Insulin-dependent type 2 diabetes Sliding-scale insulin, Lantus, Jardiance Diabetic diet Mood disorder Continue citalopram Full Code Attending:?Dr. Pelletier DVT Prophylaxis: On Xarelto Pt will require a hospitalization of at least two nights for treatment of?acute on chronic HFrEF with acute decompensation. Given pt's significant comorbidities including CAD status post CABG and recent PE and HI, she is at risk of further decompensation without administration of IV Lasix and close monitoring of labs. Quality Stroke Does the patient have a stroke diagnosis?: No VTE Prior VTE?: No VTE Risk Level:: Medical - moderate - high VTE Device Contraindication: Treatment Not Indicated VTE Drug Contraindication: N/A - Med Ordered
--- NOTE | 2024-02-04 14:22 | PHA.MEDREC ---
Addendum entered by Esvin Morillo 02/04/24 14:43: reviewed Original Note: Pharmacy Consult ? Medication Reconciliation Pharmacy has completed the medication reconciliation. Confirmed medications with patient. She stated she was still taking Carvedilol 25mg tabs 1 BID, Entresto 1 BID, Furosemide 80mg tabs 1 BID, Ipratropium-Albuterol 1 puff QID PRN Wheezing/SOB and Xarelto 20mg daily with nightly meal and even tho in claims those have not been filled in a while but states she fills them at [facility] in [place]. I called them to confirm and they stated they have not filled Carvedilol 25mg since 12/2022, Entresto 97-103mg since 11/2022, Furosemide 80mg tab July of 2022, Ipratropium 20mcg-Albuterol 100mcg they had no claims in their system for that one and Xarelto 20mg they had last filled October 12 2023 for a 90 day supply and states patient has not tried to refill that. The patient confirmed she is taking Lantus Solostar and injecting 28 untis at bedtime and she takes a Novolog injection doing it per slicing scale TID before meals. Patient states she uses a CPAP machine at night. Patient states she took her morning dose of medications today.
[2024-02-04] MEDS: Escitalopram Oxalate 10 MG TABLET PO (15:24)
[2024-02-04] MEDS: 0.9 % Sodium Chloride Flush 3 ML SYRINGE IVFLUSH ×2 (15:24→21:59)
[2024-02-04 16:26] LABS: Troponin-I High Sensitivity 524.4 ng/L (<3.5-17.0)
--- NOTE | 2024-02-04 16:44 | MHC.EDTECH ---
patient ask for food brought her crackers did vitals and belonging list
[2024-02-04 17:35] LABS: Glucose, Whole Blood 150 mg/dL (60-115)
[2024-02-04] MEDS: Furosemide 40 MG TABLET PO (18:27)
[2024-02-04] MEDS: Rivaroxaban 20 MG TABLET PO (18:28)
[2024-02-04 19:31] LABS: Troponin-I High Sensitivity 477.8 ng/L (<3.5-17.0)
[2024-02-04 21:56] LABS: Glucose, Whole Blood 214 mg/dL (60-115)
[2024-02-04] MEDS: Atorvastatin Calcium 80 MG TABLET PO (21:57)
[2024-02-04] MEDS: carvediloL 25 MG TABLET PO (21:57)
[2024-02-04] MEDS: Insulin Glargine,Hum.rec.anlog 100 UNIT/ML 10 ML VIAL 20 UNIT SUBCUT (21:58)
[2024-02-04] MEDS: Insulin Lispro 100 UNIT/ML 3 ML VIAL SUBCUT (21:58)
[2024-02-04] MEDS: Sacubitril/Valsartan 97/103 1 TAB TABLET PO (21:58)
[2024-02-05 03:21] VITALS: BP 109/46; PULSE 61; RESP 18; TEMP 36.4; O2SAT 98
[2024-02-05 07:00] LABS: Anion Gap 14 (12-20); Blood Urea Nitrogen 20 mg/dL (9-16); Calcium 9.1 mg/dL (8.4-10.2); Carbon Dioxide 27 mmol/L (22-29); Chloride 103 mmol/L (96-108); Creatinine Clr Calc Pharmacy 40.5; Estimated Glomerular Filt Rate 39; Glucose Random 114 mg/dL (60-115); Potassium 3.4 mmol/L (3.3-5.1); Sodium 141 mmol/L (135-145)
[2024-02-05 07:59] VITALS: BP 113/56; PULSE 64; RESP 18; TEMP 36.1; O2SAT 92
[2024-02-05 08:20] LABS: Glucose, Whole Blood 165 mg/dL (60-115)
--- NOTE | 2024-02-05 08:52 | MHC.CM.PN ---
IMM 02/05/24, Pt lives with family, she is independent, no home health services or DME. She has DME in the home, but does not require it. HCP is on file and confirmed: [facility], PCP confirmed: Carmina Martins. Family to transport home at DC. DCP: home, self care. CM to follow for DC needs.
[2024-02-05 09:05] VITALS: BP 121/60
[2024-02-05] MEDS: Sacubitril/Valsartan 97/103 1 TAB TABLET PO (09:05)
[2024-02-05] MEDS: Empagliflozin 25 MG TABLET PO (09:05)
[2024-02-05] MEDS: Escitalopram Oxalate 10 MG TABLET PO (09:06)
[2024-02-05] MEDS: 0.9 % Sodium Chloride Flush 3 ML SYRINGE IVFLUSH (09:06)
[2024-02-05] MEDS: carvediloL 25 MG TABLET PO (09:06)
[2024-02-05] MEDS: Insulin Lispro 100 UNIT/ML 3 ML VIAL SUBCUT ×2 (09:06→13:11)
[2024-02-05] MEDS: Furosemide 40 MG TABLET PO (09:06)
[2024-02-05 09:09] VITALS: BP 121/60; PULSE 63
[2024-02-05 11:42] LABS: Glucose, Whole Blood 165 mg/dL (60-115)
--- NOTE | 2024-02-05 13:43 | PM.DS ---
DS: Providers Provider Date of Service: 02/05/24 Date of admission: 02/04/24 12:42 Primary care physician: Carmina Martins MD DS: Diagnosis Discharge Diagnosis (1) Systolic heart failure: Status: Resolved DS: Summary Hospital Course Hospital Course: Chief Complaint: SOB, CLEMENT Pt is a 69-year-old female with a PMH significant for HFrEF 30-65%, CAD s/p CABG x2, PE c/b [place] in 10/2023 on Xarelto, s/p biventricular ICD and CardioMEMS in place, COPD, TAQUERIA on CPAP, and insulin-dependent type 2 diabetes who presents to the ED with?SOB, CLEMENT, and nonproductive cough x3 days. Patient reports CLEMENT so severe would get out of breath with just a few steps. Also experienced chills though no fever. Has chronic lower leg edema, unable to determine if increased or not. Patient reports felt slightly better today and was able to walk more. Had appointment with her primary care at [facility] who sent her to the ED for further evaluation after examination and hearing her symptoms. Patient reports has been compliant with all of her medications. Denies chest pain/pressure, palpitations. No nausea, vomiting, abdominal pain. Currently smoking less than 1 pack daily. In the ED pt was initially hypertensive up to 156/72 vitals otherwise WNL and stable. Labs were significant for troponin 470.0 (around baseline) and BNP 797 (elevated from 158 on 08/16/2023). No leukocytosis. Stable H&H. No significant electrolyte abnormalities. Renal and hepatic function WNL. Tested negative flu, RSV, COVID. CXR showed stable cardiomegaly with no acute cardiopulmonary finding. EKG demonstrated AV dual paced rhythm with QTc of 532 but no evidence of significant ST elevations or depressions, similar to previous. Pt was treated with Lasix 40 mg IV. Pt will be admitted to the hospital for treatment and further evaluation of acute decompensated HFrEF exacerbation. Hospital course: Time Attestation Discharge Coordination Time (in mins): 45 Quality: Safe Use of Opioids Does Pt have an Active Cancer Diagnosis on the Problem List?: No Quality: Stroke Does the patient have a stroke diagnosis?: No Physical Exam Vital Signs: Vital Signs: Last Vital Signs Temp 96.9 F 02/05/24 07:59 Pulse 63 02/05/24 09:09 Resp 18 02/05/24 07:59 BP 121/60 02/05/24 09:09 Pulse Ox 92 02/05/24 07:59 O2 Del Method Room Air 02/05/24 07:59 BMI result Body Mass Index 43.8 DS: Data Data Completed and Pending Completed studies during hospitalization [Text1]: Procedures Assistance with Respiratory Ventilation, Less than 24 Consecutive Hours, Continuous Positive Airway Pressure (08/14/23) Labs on day of discharge: Laboratory Results - last 24 hr 02/04/24 02/04/24 02/04/24 15:52 17:32 18:57 Hold Purple Top Sodium Potassium Chloride Carbon Dioxide Anion Gap BUN Creatinine Estim Creat Clear Calc Estimated GFR POC Glucose 150 H Random Glucose Calcium Troponin I High Sens 524.4 H* 477.8 H* 02/04/24 02/05/24 02/05/24 21:52 06:10 08:03 Hold Purple Top SEE NOTE Sodium 141 Potassium 3.4 Chloride 103 Carbon Dioxide 27 Anion Gap 14 BUN 20 H Creatinine 1.33 Estim Creat Clear Calc 40.5 Estimated GFR 39 POC Glucose 214 H 165 H Random Glucose 114 Calcium 9.1 Troponin I High Sens 02/05/24 11:37 Hold Purple Top Sodium Potassium Chloride Carbon Dioxide Anion Gap BUN Creatinine Estim Creat Clear Calc Estimated GFR POC Glucose 165 H Random Glucose Calcium Troponin I High Sens Discharge Plan Discharge Anticipated Discharge Date/Time: 02/05/24 13:38 Patient Disposition: Home, Self-Care Discharge Diagnosis: Acute on chronic heart failure Referrals: Carmina Varela MD [Primary Care Provider] - 1 Week Discharge Medications: Continued citalopram 20 mg tablet 20 mg PO DAILY Xarelto 20 mg tablet 20 mg PO DAILY@1700 ZzzQuil 50 mg/30 mL Liquid 50 mg PO BEDTIME PRN (Reason: Sleep) insulin glargine [Lantus Solostar U-100 Insulin] 100 unit/mL (3 mL) insulin pen 28 unit subcut BEDTIME insulin aspart U-100 100 unit/mL (3 mL) insulin pen 1 sliding scale dose subcut TIDAC atorvastatin 80 mg tablet 80 mg PO BEDTIME No Action furosemide 40 mg Tablet 40 mg PO DAILY carvedilol 25 mg Tablet 25 mg PO BID Rx Instructions: must administer with a meal/food Jardiance 25 mg Tablet 25 mg PO DAILY Entresto 97-103 mg Tablet 1 tab PO BID cefuroxime axetil 500 mg tablet 500 mg PO BID 14 Days Qty: 28 0RF Discharge Orders: Discharge Order (Routine); Ordered 02/05/24 Ordered By: Poncho Pelletier Diet: Advance to usual diet Activity on Discharge: As tolerated Stand Alone Forms: Patient Portal Discharge page Print Language: Slovenian Care Plan Goals: recovery from heart failure and prevent rehospitalization Health Concerns: chronic heart failure Plan of Treatment: continue taking your medicaions as before follow up with your heart doctor in a week, call for appintment Assessment: see above Discharge Date/Time: 02/05/24 16:08
[2024-02-05 14:34] LABS: B Type Natriuretic Peptide 233 pg/mL (<100)
[2024-02-05 15:01] LABS: Troponin-I High Sensitivity 419.2 ng/L (<3.5-17.0)
--- NOTE | 2024-02-05 15:29 | MHC.CM.PN ---
Addendum entered by Verna Mane 02/05/24 15:58: Pt will go home via Lyft transport. Original Note: Pt has been medically cleared for DC, she will go home via family transport, plan is self care.
[2024-02-05 15:40] VITALS: BP 110/56; PULSE 61; RESP 18; TEMP 36.1; O2SAT 95
== END 2024-02-05 16:08 | disposition home or self-care (01) | DRG 291 ==
LOC: HO.ED 11:42 → HO.EDOVER 12:55 → HO.IMC 19:28
PROVIDERS: Admitting Provider Student in an Organized Health Care Education/Training Program; Emergency Provider Emergency Medicine; PCP Internal Medicine; Visit Provider Internal Medicine
DX: I11.0 Hypertensive heart disease with heart failure (principal); I50.23 Acute on chronic systolic (congestive) heart failure; Z95.811 Presence of heart assist device; I25.10 Atherosclerotic heart disease of native coronary artery without angina pectoris; E11.9 Type 2 diabetes mellitus without complications; F17.210 Nicotine dependence, cigarettes, uncomplicated; Z71.6 Tobacco abuse counseling; I25.2 Old myocardial infarction; Z95.1 Presence of aortocoronary bypass graft; Z20.822 Contact with and (suspected) exposure to COVID-19; Z95.810 Presence of automatic (implantable) cardiac defibrillator; Z86.711 Personal history of pulmonary embolism; Z79.4 Long term (current) use of insulin; Z79.01 Long term (current) use of anticoagulants; Z79.899 Other long term (current) drug therapy
CPT/HCPCS: 0241U; 36415; 71045; 80048; 80076; 82947; 83690; 83735; 83880; 84484; 85025; 93005; 94660; 99285; J1940

== ENCOUNTER → 2024-02-04 09:47 | Outpatient (BNV) | payer OTHER, SELFPAY ==
[2021-10-15 11:10] VITALS: BP 110/70; BMI 46.0
== END ==
PROVIDERS: Admitting Provider Student in an Organized Health Care Education/Training Program; Emergency Provider Emergency Medicine; PCP Internal Medicine; Visit Provider Internal Medicine Cardiovascular Disease
DX: R94.31 Abnormal electrocardiogram [ECG] [EKG] (principal); Z95.0 Presence of cardiac pacemaker
CPT/HCPCS: 93010

== ENCOUNTER → 2024-02-04 12:42 | Outpatient (BNV) | payer OTHER, SELFPAY ==
[2021-10-15 11:10] VITALS: BP 110/70; BMI 46.0
== END ==
PROVIDERS: Admitting Provider Student in an Organized Health Care Education/Training Program; Emergency Provider Emergency Medicine; PCP Internal Medicine; Visit Provider Student in an Organized Health Care Education/Training Program
DX: I50.20 Unspecified systolic (congestive) heart failure (principal)
CPT/HCPCS: 99223; 99239

== ENCOUNTER 2024-02-09 13:43 | Inpatient (IN) | payer OTHER, SELFPAY ==
[2021-10-15 11:10] VITALS: BP 110/70; BMI 46.0
[2024-02-09] VITALS (14 sets, daily range): BP systolic 65–200; BP diastolic 30–100; PULSE 73–90; RESP 13–20; TEMP 36.6–37.1; O2SAT 86–96; BMI 43.6; BMI 43.9; BMI 42.6; BMI 43.3
--- NOTE | 2024-02-09 | ECG_ITS ---
Test Reason : ICU EVAL Blood Pressure : / mmHG Vent. Rate : 078 BPM Atrial Rate : 078 BPM P-R Int : 104 ms QRS Dur : 160 ms QT Int : 488 ms P-R-T Axes : 084 239 101 degrees QTc Int : 556 ms Atrial-sensed ventricular-paced rhythm Biventricular pacemaker detected Abnormal ECG When compared with ECG of 09-FEB-2024 14:37, No significant changes seen Referred By: Karen Avalos Electronically Signed By:BATSHEVA POLANCO
--- NOTE | ~2024-02-09 | CT_ITS ---
EXAMINATION: CT CHEST, ABDOMEN, AND PELVIS WITHOUT CONTRAST CLINICAL INFORMATION: Persistent hypotension. Question infection. COMPARISON: CT scans dating between February 09, 2024 and December 21, 2011. TECHNIQUE: Multidetector volumetric CT imaging of the chest, abdomen, and pelvis was obtained without oral or intravenous contrast. Axial MIP volume rendering provided. Sagittal and coronal reformatted images were obtained. This CT examination was performed using dose optimization techniques as appropriate, variously including the following: *Automated exposure control *Adjustment of mA and/or kV according to patient size (this includes techniques or standardized protocols for targeted exams where dose is matched to indication/reason for exam; i.e. extremities or head) *Use of iterative reconstruction technique DLP: 988 mGy-cm FINDINGS: LUNGS: Mild right basilar dependent airspace disease and trace right pleural fluid, worse compared with February 09, 2024. Left lung appears clear. MEDIASTINUM: Heart normal in size. Ossification of the aortic valve. Tips of left subclavian pulse generator device leads in right atrium, right ventricle, and a branch of the coronary sinus. No pericardial effusion. Unremarkable appearance of the thyroid. No evidence of adenopathy by size criteria. CORONARY ARTERY CALCIFICATION: Severe. Status post CABG. PLEURA: There is no pleural effusion. No pleural mass or thickening. AXILLA: No lymphadenopathy by size criteria. LIVER, GALLBLADDER, AND BILIARY TREE: The liver appears unremarkable in size, shape, and attenuation. No focal hepatic lesion or biliary ductal dilatation is appreciated. Gallbladder not visualized, suggesting prior surgical removal. PANCREAS: Unremarkable SPLEEN: Unremarkable ADRENAL GLANDS: Approximately 1.5 cm benign left adrenal adenoma for which no further dedicated follow-up imaging as indicated. KIDNEYS AND URETERS: The proximal loop of a right double-J ureteral stent lies in the right renal pelvis, and the distal loop lies in the urinary bladder. No evidence of kink. Approximately 0.5 cm distal right ureteral stone (image 69, coronal series 5). Two, approximately 0.3 cm or less nonobstructing right renal collecting system stones versus vascular calcifications. 0.9 cm, nonobstructing left lower pole collecting system stone. No evidence of hydronephrosis or hydroureter on either side. The kidneys appear unremarkable in size, shape, and attenuation. BLADDER: Small amount of air within the nondependent portion of the urinary bladder, possibly iatrogenic. GASTROINTESTINAL TRACT: Stomach and small bowel appear unremarkable. Scattered colonic diverticula without evidence of diverticulitis. Normal-appearing distal ileum. No evidence of appendicitis. ABDOMINAL WALL: No significant hernia is appreciated. LYMPH NODES: No evidence of adenopathy by size criteria. VASCULAR: Aortoiliac calcification. Calcification of the origins of the great vessels of the arch, with probable severe stenosis involving the proximal aspect of the left subclavian artery. PELVIC VISCERA: Unremarkable OSSEOUS STRUCTURES: Status post median sternotomy. Old, healed bilateral rib fractures. Osteoarthritis of the hips. CT/CT abdomen pelvis wo IV con IMPRESSION: Mild right basilar dependent airspace disease suggesting atelectasis and/or infiltrate, with trace right pleural fluid, worse compared with February 09, 2024. The proximal loop of a right double-J ureteral stent lies in the right renal pelvis, and the distal loop lies in the urinary bladder. No evidence of kink. Approximately 0.5 cm distal right ureteral stone. Two, approximately 0.3 cm or less nonobstructing right renal collecting system stones versus vascular calcifications. 0.9 cm, nonobstructing left lower pole collecting system stone. Small amount of air within the nondependent portion of the urinary bladder, possibly iatrogenic. Recommend clinical correlation. Additional findings, as above. Electronically signed by: Syed Herman MD 02/12/2024 05:22 PM EDT RP
--- NOTE | ~2024-02-09 | CT_ITS ---
EXAMINATION: CT ABDOMEN AND PELVIS WITH CONTRAST CLINICAL INFORMATION: 69-year-old female with flank pain COMPARISON: August 31, 2016 TECHNIQUE: Multidetector volumetric images were obtained from the superior aspect of the liver through the pubic symphysis following administration 85 mL of Omnipaque 350 intravenous contrast. Sagittal and coronal reformatted images were obtained on the technologist's workstation. Oral contrast: No This CT examination was performed using dose optimization techniques as appropriate, variously including the following: *Automated exposure control *Adjustment of mA and/or kV according to patient size (this includes techniques or standardized protocols for targeted exams where dose is matched to indication/reason for exam; i.e. extremities or head) *Use of iterative reconstruction technique DLP: 1054 mGy-cm FINDINGS: LUNG BASES: There is atelectasis at the left lower lobe. Patient is status post medial sternotomy for CABG. There is pacemaker leads seen in the left abdomen ventricle. LIVER, GALLBLADDER, AND BILIARY TREE: Liver is of low attenuation without intrahepatic masses or ductal dilatation, surrounded by small amount of ascites. Gallbladder not seen, most likely surgically absent. CBD is mildly prominent without evidence of choledocholithiasis. PANCREAS: Unremarkable. SPLEEN: Unremarkable. ADRENAL GLANDS: There is left adrenal glands nodularity, the left adrenal gland measured 2.0 cm. Right adrenal gland is unremarkable. KIDNEYS AND URETERS: There is right hydroureteronephrosis secondary to obstruction of distal right ureter by 0.7 x 0.7 x 0.5 cm stone there is perinephric stranding surrounding right kidney and ureter with small accumulation of ascites extending towards the liver Left kidney revealed nonobstructing stone in the lower pole, measured 1.0 cm. BLADDER: Small amount of gas seen in the urinary bladder most likely result of infection versus instrumentation. GASTROINTESTINAL TRACT: There are extensive changes of sigmoid colon diverticulosis without evidence of diverticulitis and mild diffuse diverticulosis. Stomach is well distended without wall thickening small bowel loops unremarkable. Appendix is not seen ABDOMINAL WALL: No significant hernia is appreciated. LYMPH NODES: Normal. VASCULAR: Atherosclerotic calcifications of not dilated abdominal aorta and common iliac arteries PELVIC VISCERA: Unremarkable. OSSEOUS STRUCTURES: There are degenerative changes in facet joints of lower lumbar spine CT/CT abdomen pelvis w IV con IMPRESSION: 1. Obstructing stone in distal right ureter with hydroureteronephrosis and perinephric stranding mild ascites. 2. Left adrenal gland nodule, stable since previous study. 3. Diverticulosis without diverticulitis. 4. Hepatic steatosis. 5. Small amount of gas in the urinary bladder most likely result of infection versus instrumentation. Fleischner guidelines were followed. Electronically signed by: Isaak Shearer MD 02/09/2024 06:26 PM EDT RP
--- NOTE | ~2024-02-09 | XR_ITS ---
EXAMINATION: XR CHEST CLINICAL INFORMATION: Sepsis. COMPARISON: Chest radiograph 02/04/2024. TECHNIQUE: Frontal view of the chest was obtained. FINDINGS: Stable cardiomediastinal silhouette. Left-sided pacer/AICD with leads overlying the expected location of the right atrium, right ventricle and coronary sinus. Median sternotomy wires and numerous mediastinal surgical clips. Coronary artery stents. Stable positioning of CardioMEMs device. No focal consolidation, pleural effusion or pneumothorax. Unchanged diffuse interstitial thickening. No acute osseous findings. XR/XR chest 1V IMPRESSION: No significant change compared to 02/04/2024. Electronically signed by: Trinh Gerardo MD 02/09/2024 08:33 PM EDT
--- NOTE | ~2024-02-09 | XR_ITS ---
EXAMINATION: XR CHEST CLINICAL INFORMATION: CVC placement. COMPARISON: Chest x-ray from 3 hours earlier the same day. TECHNIQUE: Portable AP view of the chest was obtained. FINDINGS: The study is limited by portable technique, suboptimal inspiration, and overlying leads. The tip of a new presumed right internal jugular central venous catheter projects over the junction of the superior vena cava and right atrium. Otherwise, there has been no significant radiographic change compared with 3 hours earlier. No pneumothorax or pleural effusion is seen. XR/XR chest 1V IMPRESSION: Findings as above. Electronically signed by: Syed Herman MD 02/10/2024 10:11 AM EDT
--- NOTE | 2024-02-09 14:09 | ED.GENADULT ---
HPI - General Adult General Chief complaint: Back Pain/Injury Stated complaint: R FLANK PAIN SINCE 4AM,SHIVERING,HIGH BP 200/96 Time Seen by Provider: 02/09/24 14:01 History of Present Illness ED Provider: Dr. Kiser HPI narrative: 69 y/o F patient; PMH HFrEF with biventricular ICD (EF 30 - 65%); restrictive lung disease, hx PE on Xarelto, hx respiratory arrest, T2DM, HTN, morbid obesity, TAQUERIA on CPAP, CAD s/p CABG (2014); presents from home reporting sudden onset right-sided flank pain associated with rigors. She states it has been 2 - 3 days since her last bowel movement. She tried to take her son's medication (laxative) without bowel movement. She denies: nausea/vomiting, chest pain, SOB, cough/congestion, fevers. She states she can urinate without difficulty, no dysuria or hematuria. Related Data Home Medications ?Medication ?Instructions ?Recorded ?Confirmed atorvastatin 80 mg tablet 80 mg PO BEDTIME 02/27/20 02/04/24 insulin aspart U-100 100 unit/mL 1 sliding scale dose subcut TIDAC 06/26/20 02/04/24 (3 mL) subcutaneous pen citalopram 20 mg tablet 20 mg PO DAILY 07/21/20 02/04/24 rivaroxaban 20 mg tablet (Xarelto) 20 mg PO DAILY@1700 08/14/23 02/04/24 diphenhydramine HCl 50 mg/30 mL 50 mg PO BEDTIME PRN Sleep 08/15/23 02/04/24 oral liquid (ZzzQuil) insulin glargine 100 unit/mL (3 28 unit subcut BEDTIME 02/04/24 02/04/24 mL) subcutaneous pen (Lantus Solostar U-100 Insulin) Previous Rx's ?Medication ?Instructions ?Recorded ipratropium 20 mcg-albuterol 100 1 puff inhalation QID PRN 08/11/23 mcg/actuation mist for inhalation Wheezing/Sob. 90 days #4 grams (Combivent Respimat) Allergies Allergy/AdvReac Type Severity Reaction Status Date / Time No Known Allergies Allergy Verified 02/09/24 14:26 Review of Systems Review of Systems: Yes all other systems are reviewed and are negative PMFSH Past Medical History Attestation statement: The following information was validated with the patient. Source: old records reviewed Medical History CHF (congestive heart failure) Sleep apnea Presence of CardioMEMS HF system Hx of myocardial infarction Anxiety and depression Osteoarthritis Fatty liver Restrictive lung disease TAQUERIA treated with BiPAP Morbid obesity Biventricular ICD (implantable cardioverter-defibrillator) in place CAD (coronary artery disease) Non-rheumatic aortic stenosis Atherosclerotic cardiovascular disease Acute on chronic systolic and diastolic heart failure, NYHA class 3 Leukocytosis Dyspnea Transaminitis Hypoxia Congestive heart failure TAQUERIA (obstructive sleep apnea) NSVT (nonsustained ventricular tachycardia) Cardiomyopathy Chronic systolic heart failure Diabetes mellitus HLD (hyperlipidemia) HTN (hypertension) Surgical History History of incision and drainage Status post coronary artery bypass graft Stented coronary artery Hx of CABG History of cardiac cath Hx of cardiac cath Hx of cardiac cath Hx of appendectomy History of cholecystectomy Family History Family History Father No problems noted. Mother No problems noted. Social History Social History Household Members: Family Household Members Other:: son and daughter in law Housing: Apartment Are you a primary acute care nurse to a significant other at home: No Do you presently have visiting nurse or other home services: No Alcohol intake: never Comment: chronic back pain Patient Tobacco Use Status: Never used Tobacco Tobacco use type: Cigarette Cigarette Packs Per Day: 1 Years Smoked: 30 e-Cigarette/Vaping Use: Never Used Second Hand Smoke Exposure: No Advance Directives: Yes Advance Directives on File: Yes Advance Directives Date on File: 11/07/22 Do you have a plan to hurt others: No Plan service: No Current occupational status: unemployed and disabled Current occupation: rt hand Physical Exam ED Vital Signs: Vital Signs - 24 hr 02/09/24 14:25 02/09/24 16:08 02/09/24 16:09 Temperature 97.9 F 98.0 F Pulse Rate 86 77 78 Respiratory Rate 18 20 18 Blood Pressure 175/76 H 65/30 L 83/51 L Pulse Oximetry 93 86 L 93 Oxygen Delivery Method Room Air Room Air Room Air Oxygen Flow Rate 2 02/09/24 16:44 02/09/24 17:16 Temperature 97.9 F Pulse Rate 73 Respiratory Rate 18 Blood Pressure 78/45 L 86/57 L Pulse Oximetry 94 Oxygen Delivery Method Nasal Cannula Oxygen Flow Rate 2 BMI result Body Mass Index 43.6 Patient is afebrile, quite hypertensive. Const General: cooperative Orientation/consciousness: patient oriented x3 HENMT Head: Yes normal to inspection and Yes atraumatic Eyes General: appearance normal, both eyes and all related structures Pupils: Equal, round and reactive pupils present EOM: EOMs intact bilaterally Neck Neck: Yes normal visual inspection, Yes full ROM, Yes supple and No tender Chest Chest palpation & inspection: normal inspection of the chest and normal palpation of entire chest wall Resp Effort & Inspection: normal respiratory effort, able to speak in complete sentences, no cough and no respiratory distress Auscultation: clear to auscultation bilaterally Cardio Rate: regular rate Rhythm: regular rhythm Peripheral pulses: Peripheral pulses 2+ throughout GI Other: Suprapubic and RLQ abdominal tenderness Inspection: No Abdominal wall edema Palpation (GI): Soft to palpation, Tenderness to palpation present (GI), no guarding and not rigid Auscultation: normal bowel sounds Back/Spine/Pelvis Back: No back tenderness Neuro General: patient oriented x3 Cranial nerves: Yes Equal, round and reactive pupils present Course Course Course Narrative: Patient is afebrile, quite hypertensive. Will obtain CT Abdomen/Pelvis, laboratory studies, and urinalysis. Will treat with Morphine 4mg IV, Zofran 4mg IV, and Tylenol 1g IV as patient appears quite uncomfortable. Reevaluation(s) Reevaluation #1: Labs reviewed. Leukocytosis 15.4 with 10% bands. Thrombocytopenia 142. Mild GABINO (prior 1.33 on 02/04, today 1.61). UA with evidence of infection. Positive nitrites, positive leuk est, 21 - 50WBC, and significant amount of blood. Pending CT results. Will obtain blood cultures, LA, and treat for possible obstructive uropathy versus pyelonephritis with IV Ceftriaxone 2g. Time: 16:05 Reevaluation #2: Informed patient is now hypotensive. She has a very extensive cardiac history - will start with 500cc IVF. Troponin 501.8 - this is higher than her baseline of approx 419.2. In my opinion troponin is elevated due to demand - not primary ACS. Patient does not have chest pain now or at any point in the last few days. She does not have EKG changes. I did place her on a heparin drip for anti-coagulation. BNP 731 - baseline approx 233. Providing Lasix 40mg IV. Despite the 500cc IVF which temporarily improved her blood pressure, she is again hypotensive. Will provide 2nd dose of 500cc IVF. Patient receiving total 1L IVF. Will also start Norepinephrine at this time. Added Vancomycin to the patient's antibiotics given she is now in septic shock. Patient re-evaluated multiple times. She is mentating well, reports improvement in her pain which is currently at 0/10. Patient's daughter updated via the phone on the patient's condition with the patient's consent. Time: 18:00 Reevaluation #3: I spoke with the radiologist and requested emergent reading of her imaging. CT reviewed- notable for obstructing stone in the distal right ureter with hydoureteronephrosis and perinephric stranding with mild ascites. Patient is also hypoxic at this time to 88%, placed on 2L NC. I consulted ICU and Urology. Patient is in septic shock from obstructive uropathy. Patient was accepted to the ICU. So will go to the OR emergently with Urology. Plan: Admit to ICU Condition: Stable Time: 18:34 Medications Administered Generic Name Dose Route Start Last Admin Trade Name Freq PRN Reason Stop Dose Admin Vancomycin HCl 2,000 mg in 500 mls @ 250 mls/hr 02/09/24 18:22 02/09/24 19:00 Vancomycin/Ns IV 02/09/24 20:21 250 mls/hr ONCE ONE Administration Norepinephrine Bitartrate 8 mg in 250 mls @ 0 mls/hr 02/09/24 18:30 02/09/24 19:01 Levophed IVCONT 0.05 mcg/kg/min .Q0M WALLACE 9.19 mls/hr Administration Protocol Per Protocol Discontinued Medications Generic Name Dose Route Start Last Admin Trade Name Freq PRN Reason Stop Dose Admin Ceftriaxone Sodium 2 gm 02/09/24 15:08 02/09/24 15:51 Ceftriaxone Sodium 2 Gm Vial IVPUSH 02/09/24 15:09 2 gm ONCE ONE Administration Acetaminophen 1,000 mg in 100 mls @ 400 mls/hr 02/09/24 14:42 02/09/24 16:45 Ofirmev IV 02/09/24 14:56 Infused ONCE ONE Infusion Sodium Chloride 1,000 mls @ 500 mls/hr 02/09/24 16:15 02/09/24 16:56 Ns IV 02/09/24 18:14 Infused .Q2H WALLACE Infusion Sodium Chloride 500 mls @ 500 mls/hr 02/09/24 18:30 02/09/24 19:49 Ns IV 02/09/24 19:29 500 mls/hr .Q1H WALLACE Administration Iohexol 100 ml 02/09/24 17:00 02/09/24 17:00 Iohexol 350 Mg/Ml 100 Ml Infus..Btl IV 02/09/24 17:01 85 ml ONCE ONE Administration Morphine Sulfate 4 mg 02/09/24 14:42 02/09/24 15:31 Morphine Sulfate 4 Mg/Ml Cartridge IVPUSH 02/09/24 14:43 4 mg ONCE ONE Administration Protocol Ondansetron HCl 4 mg 02/09/24 14:42 02/09/24 15:31 Ondansetron Hcl 4 Mg/2 Ml Vial IVPUSH 02/09/24 14:43 4 mg ONCE ONE Administration Medical Decision Making Lab Data 02/09/24 14:32 02/09/24 14:32 Labs: Lab Results 02/09/24 02/09/24 Range/Units 14:32 15:29 WBC 15.4 H (4.8-10.8) X10*3/uL RBC 6.01 H (4.20-5.50) X10*6/uL Hgb 17.8 H (12.0-16.0) g/dl Hct 55.4 H (37.0-47.0) % MCV 92.2 (80.0-98.0) fL MCH 29.6 (27.0-33.0) pg MCHC 32.1 (31.0-35.0) g/dl RDW 16.4 H (11.0-16.0) % Plt Count 142 L (160-400) X10*3/uL MPV 12.1 (9.4-12.3) fL Immature Gran % (Auto) Cancelled Neut % (Auto) Cancelled Lymph % (Auto) Cancelled [place] % (Auto) Cancelled Eos % (Auto) Cancelled Baso % (Auto) Cancelled Lymph # (Auto) Cancelled [place] # (Auto) Cancelled Eos # (Auto) Cancelled Baso # (Auto) Cancelled Abs Immat Gran (auto) Cancelled Absolute Neuts (auto) Cancelled Absolute Nucleated RBC 0.000 (0.0-0.012) X10*3/uL Nucleated RBC % (auto) 0.0 (0.0-0.2) /100WBC Neutrophils % (Manual) 86 H (45-73) % Band Neutrophils % 10 H (3-5) % Lymphocytes % (Manual) 4 L (20-40) % Abs Neuts (Manual) 14.8 H (2.0-8.3) X10*3/uL Lymphocytes # (Manual) 0.6 L (1.2-4.9) X10*3/uL Toxic Vacuolation PRESENT Platelet Estimate NORMAL (NORMAL) Plt Morphology Comment NORMAL RBC Morphology NOTED [place] Cells 1+ (0-2) /OIF Sodium 140 (135-145) mmol/L Potassium 4.2 D (3.3-5.1) mmol/L Chloride 103 (96-108) mmol/L Carbon Dioxide 25 (22-29) mmol/L Anion Gap 16 (12-20) BUN 28 H (9-16) mg/dL Creatinine 1.61 H (0.5-1.4) mg/dL Estim Creat Clear Calc 33.4 Estimated GFR 32 Random Glucose 210 H (60-115) mg/dL Lactic Acid 1.9 (0.5-2.0) mmol/L Calcium 9.8 D (8.4-10.2) mg/dL Total Bilirubin 1.5 H (0.0-1.0) mg/dL Direct Bilirubin 0.6 H (0.0-0.5) mg/dL AST 22 (5-31) U/L ALT 17 (0-31) U/L Alkaline Phosphatase 141 H (39-117) U/L Troponin I High Sens 501.8 H* (<3.5-17.0) ng/L B-Natriuretic Peptide 731 H (<100) pg/mL Total Protein 7.8 (6.5-8.0) g/dL Albumin 4.2 (3.5-5.0) g/dL Lipase 17 (8-78) U/L Urine Color Yellow Urine Appearance Cloudy Urine pH 7.0 (5.0-9.0) Ur Specific [place] 1.020 (1.005-1.025) Urine Protein 300 (3+) H (Neg-Trace) mg/dL Urine Glucose (UA) >=1000 H (Negative) mg/dL Urine Ketones Trace (Negative) mg/dL Urine Blood Large (3+) H (Negative) Urine Nitrite Positive H (Negative) Ur Leukocyte Esterase Trace H (Negative) Urine RBC >20 H (0-2) /HPF Urine WBC 21-50 H (0-5) /HPF Ur Squamous Epith Cells 3-5 (0-2) /HPF Urine Bacteria 4+ (None Seen) Hyaline Casts 0-2 (0-2) /LPF Independent Interpretation I performed an independent interpretation of an: EKG Interpretation: Atrial-sensed ventricular paced 81BPM Radiology Impression Discussion of test interpretation with radiology: I have reviewed the radiologist's reading. Radiologist Impression: EXAMINATION: CT ABDOMEN AND PELVIS WITH CONTRAST CLINICAL INFORMATION: 69-year-old female with flank pain COMPARISON: August 31, 2016 TECHNIQUE: Multidetector volumetric images were obtained from the superior aspect of the liver through the pubic symphysis following administration 85 mL of Omnipaque 350 intravenous contrast. Sagittal and coronal reformatted images were obtained on the technologist's workstation. Oral contrast: No This CT examination was performed using dose optimization techniques as appropriate, variously including the following: *Automated exposure control *Adjustment of mA and/or kV according to patient size (this includes techniques or standardized protocols for targeted exams where dose is matched to indication/reason for exam; i.e. extremities or head) *Use of iterative reconstruction technique DLP: 1054 mGy-cm FINDINGS: LUNG BASES: There is atelectasis at the left lower lobe. Patient is status post medial sternotomy for CABG. There is pacemaker leads seen in the left abdomen ventricle. LIVER, GALLBLADDER, AND BILIARY TREE: Liver is of low attenuation without intrahepatic masses or ductal dilatation, surrounded by small amount of ascites. Gallbladder not seen, most likely surgically absent. CBD is mildly prominent without evidence of choledocholithiasis. PANCREAS: Unremarkable. SPLEEN: Unremarkable. ADRENAL GLANDS: There is left adrenal glands nodularity, the left adrenal gland measured 2.0 cm. Right adrenal gland is unremarkable. KIDNEYS AND URETERS: There is right hydroureteronephrosis secondary to obstruction of distal right ureter by 0.7 x 0.7 x 0.5 cm stone there is perinephric stranding surrounding right kidney and ureter with small accumulation of ascites extending towards the liver Left kidney revealed nonobstructing stone in the lower pole, measured 1.0 cm. BLADDER: Small amount of gas seen in the urinary bladder most likely result of infection versus instrumentation. GASTROINTESTINAL TRACT: There are extensive changes of sigmoid colon diverticulosis without evidence of diverticulitis and mild diffuse diverticulosis. Stomach is well distended without wall thickening small bowel loops unremarkable. Appendix is not seen ABDOMINAL WALL: No significant hernia is appreciated. LYMPH NODES: Normal. VASCULAR: Atherosclerotic calcifications of not dilated abdominal aorta and common iliac arteries PELVIC VISCERA: Unremarkable. OSSEOUS STRUCTURES: There are degenerative changes in facet joints of lower lumbar spine CT/CT abdomen pelvis w IV con IMPRESSION: 1. Obstructing stone in distal right ureter with hydroureteronephrosis and perinephric stranding mild ascites. 2. Left adrenal gland nodule, stable since previous study. 3. Diverticulosis without diverticulitis. 4. Hepatic steatosis. 5. Small amount of gas in the urinary bladder most likely result of infection versus instrumentation. Fleischner guidelines were followed. Electronically signed by: Isaak Shearer MD 02/09/2024 06:26 PM EDT Critical Care Time Critical Care Time Critical Care Time: Yes Total Critical Care Time: 75 Attestation: Total critical care time: Approximately?75?minutes Due to a high probability of clinically significant, life threatening deterioration, the patient required my highest level of preparedness to intervene emergently and I personally spent this critical care time directly and personally managing the patient. This critical care time included obtaining a history; examining the patient; pulse oximetry; ordering and review of studies; arranging urgent treatment with development of a management plan; evaluation of patient's response to treatment; frequent reassessment; and, discussions with other providers. This critical care time was performed to assess and manage the high probability of imminent, life-threatening deterioration that could result in multi-organ failure. It was exclusive of separately billable procedures and treating other patients and teaching time. Discharge Plan Discharge Clinical Impression: Sepsis, Obstruction of kidney, Demand ischemia, Hypoxia Patient Disposition: Admitted As Inpatient
--- NOTE | 2024-02-09 14:09 | PC.NURSE ---
Called [facility] for patient methadone hx. [facility] 5th floor CASSIE Umana confirms last dose with them of 02/01/24 100mg prior to discharge with a last dose letter for clinic. patient states she went to program and brought her letter to [facility] clinic in [place] who has been having issues getting information that need to provide pt her methadone. patient stated yesterday d/t the delay she had to go to [facility] ER to obtain methadone dose because clinic was taking too long to verify and she relapsed as well.
--- NOTE | 2024-02-09 14:12 | ECG_ITS ---
Test Reason : heart screening Blood Pressure : / mmHG Vent. Rate : 081 BPM Atrial Rate : 081 BPM P-R Int : 112 ms QRS Dur : 136 ms QT Int : 490 ms P-R-T Axes : 069 194 054 degrees QTc Int : 569 ms Atrial-sensed ventricular-paced rhythm Biventricular pacemaker detected Abnormal ECG When compared with ECG of 04-FEB-2024 10:13, Vent. rate has increased BY 21 BPM Referred By: Alexandrea Kiser Electronically Signed By:BATSHEVA POLANCO
[2024-02-09 14:48] LABS: Appearance Urine Cloudy; Color Urine Yellow; Glucose Urine UA >=1000 mg/dL (Negative); Hemoglobin 17.8 g/dl (12.0-16.0); Leukocyte Esterase Urine Trace (Negative); Mean Corpuscular HGB Conc 32.1 g/dl (31.0-35.0); Mean Corpuscular Hemoglobin 29.6 pg (27.0-33.0); Mean Corpuscular Volume 92.2 fL (80.0-98.0); Mean Platelet Volume 12.1 fL (9.4-12.3); Nitrite Urine Positive (Negative); Platelet Count 142 X10*3/uL (160-400); Red Blood Count 6.01 X10*6/uL (4.20-5.50); Red Cell Distribution Width 16.4 % (11.0-16.0); UMIC TRIGGER UACC YES; Urine Blood Large (3+) (Negative); Urine Ketones Trace mg/dL (Negative); Urine Protein 300 (3+) mg/dL (Neg-Trace); White Blood Count 15.4 X10*3/uL (4.8-10.8)
[2024-02-09 14:50] LABS: Bacteria Urine 4+ (None Seen); Hematocrit 55.4 % (37.0-47.0); Hyaline Casts Urine 0-2 /LPF (0-2); RBC Urine >20 /HPF (0-2); UACC Culture Trigger YES; WBC Urine 21-50 /HPF (0-5)
[2024-02-09 15:02] LABS: Alanine Aminotransferase 17 U/L (0-31); Albumin Level 4.2 g/dL (3.5-5.0); Alkaline Phosphatase 141 U/L (39-117); Anion Gap 16 (12-20); Aspartate Amino Transferase 22 U/L (5-31); Bilirubin Direct 0.6 mg/dL (0.0-0.5); Bilirubin Total 1.5 mg/dL (0.0-1.0); Blood Urea Nitrogen 28 mg/dL (9-16); Calcium 9.8 mg/dL (8.4-10.2); Carbon Dioxide 25 mmol/L (22-29); Chloride 103 mmol/L (96-108); Creatinine Clr Calc Pharmacy 33.4; Estimated Glomerular Filt Rate 32; Glucose Random 210 mg/dL (60-115); Lipase 17 U/L (8-78); Potassium 4.2 mmol/L (3.3-5.1); Sodium 140 mmol/L (135-145); Total Protein 7.8 g/dL (6.5-8.0)
[2024-02-09] MEDS: Morphine Sulfate 4 MG/ML CARTRIDGE IVPUSH (15:31)
[2024-02-09] MEDS: Acetaminophen 1,000 MG/100 ML PIGGYBACK 400 MG IV (15:31)
[2024-02-09] MEDS: ondansetron HCL 4 MG/2 ML VIAL IVPUSH (15:31)
[2024-02-09 15:39] LABS: Neutrophils Percent Manual 86 % (45-73)
[2024-02-09 15:44] LABS: Band Neutrophils Percent 10 % (3-5); Burr Cells 1+ (0-2) /OIF; Lymphocytes Absolute Manual 0.6 X10*3/uL (1.2-4.9); Lymphocytes Percent Manual 4 % (20-40); Neutrophils Absolute Manual 14.8 X10*3/uL (2.0-8.3); RBC Morphology NOTED
[2024-02-09 15:45] LABS: Platelet Estimate NORMAL (NORMAL); Platelet Morphology Comment NORMAL; Toxic Vacuolation PRESENT
[2024-02-09 15:46] LABS: Lactic Acid 1.9 mmol/L (0.5-2.0)
[2024-02-09] MEDS: cefTRIAXone sodium 2 GM VIAL IVPUSH (15:51)
--- NOTE | 2024-02-09 16:00 | PC.NURSE ---
spoke with MD gordon and discussed IVF administration and stated only 500ML NS bolus at this time dt patient heart history.
[2024-02-09] MEDS: 0.9 % Sodium Chloride 1,000 ML 500 ML IV (16:11)
--- NOTE | 2024-02-09 16:55 | PC.NURSE ---
MD gordon wrong order entered prior to admission of IVF but confirmed with MD that only 500mL infusion of NS to be given to patient. MD agreed. Patient recieved only 500ml bolus intitial
[2024-02-09] MEDS: iohexoL 350 MG/ML 100 ML INFUS..BTL IV (17:00)
[2024-02-09 17:39] LABS: Troponin-I High Sensitivity 501.8 ng/L (<3.5-17.0)
[2024-02-09 17:41] LABS: B Type Natriuretic Peptide 731 pg/mL (<100)
[2024-02-09] MEDS: vancomycin/NS 2,000 MG/500 ML PLAST..BAG 250 MG IV (19:00)
[2024-02-09] MEDS: Norepinephrine Bitartrate/D5W 8 MG/250 ML PLAST..BAG 9.19 MG IVCONT (19:01)
--- NOTE | 2024-02-09 19:06 | P.HPCC_ITS ---
History of Present Illness Date of Service: 02/09/24 <Karen Avalos MD - Last Filed: 02/09/24 20:20> Attending physician on admission: Karen Avalos <Karen Avalos MD - Last Filed: 02/09/24 20:20> Chief Complaint: Flank Pain <Karen Avalos MD - Last Filed: 02/09/24 20:20> Patient is a 65 Y F w/ hypertension, hyperlipidemia, diabetes mellitus, c/b coronary artery disease c/b heart failure s/p ICD, aortic stenosis, TAQUERIA, and prior PE c/b respiratory arrest on rivaroxaban, who presented initially to the emergency department on 02/08 w/ R flank pain, found to have obstructing uretal stone, c/b septic shock <Karen Avalos MD - Last Filed: 02/09/24 20:20> Review of Systems 2 Review of Systems: Yes all other systems are reviewed and are negative < Karen Avalos MD - Last Filed: 02/09/24 20:20> PMF Past Medical History Medical History: Medical History CHF (congestive heart failure) Sleep apnea Presence of CardioMEMS HF system Hx of myocardial infarction Anxiety and depression Osteoarthritis Fatty liver Restrictive lung disease TAQUERIA treated with BiPAP Morbid obesity Biventricular ICD (implantable cardioverter-defibrillator) in place CAD (coronary artery disease) Non-rheumatic aortic stenosis Atherosclerotic cardiovascular disease Acute on chronic systolic and diastolic heart failure, NYHA class 3 Leukocytosis Dyspnea Transaminitis Hypoxia Congestive heart failure TAQUERIA (obstructive sleep apnea) NSVT (nonsustained ventricular tachycardia) Cardiomyopathy Chronic systolic heart failure Diabetes mellitus HLD (hyperlipidemia) HTN (hypertension) <Karen Avalos MD - Last Filed: 02/09/24 20:20> Family History Family History: Family History Father No problems noted. Mother No problems noted. <Karen Avalos MD - Last Filed: 02/09/24 20:20> Surgical History Surgical History: Surgical History History of incision and drainage Status post coronary artery bypass graft Stented coronary artery Hx of CABG History of cardiac cath Hx of cardiac cath Hx of cardiac cath Hx of appendectomy History of cholecystectomy <Karen Avalos MD - Last Filed: 02/09/24 20:20> Social History Social History: Social History Household Members: Family Household Members Other:: son and daughter in law Housing: Apartment Are you a primary memory care program director to a significant other at home: No Do you presently have visiting nurse or other home services: No Alcohol intake: never Comment: chronic back pain Patient Tobacco Use Status: Current everyday Tobacco user Tobacco use type: Cigarette Cigarette Packs Per Day: 1 Years Smoked: 30 e-Cigarette/Vaping Use: Never Used Patient Given Instructions on How to Stop Smoking: No (pt refused) Second Hand Smoke Exposure: No Use of substances other than those prescribed or required for medical reasons: No Have you been hit, kicked, punched, or otherwise hurt by someone within the past year? If so, by whom?: No Do you feel safe in your current relationship?: No Current Relationship Is there a partner from a previous relationship who is making you feel unsafe now?: No Are you made to feel afraid or neglected: No Advance Directives: Yes Advance Directives on File: Yes Advance Directives Date on File: 11/07/22 Do you have a plan to hurt others: No Plan Recently lost weight without trying: Unsure Nutrition Risks: No Nutritional Risk Patient : No : No Poor oral hygiene: No service: No Current occupational status: unemployed and disabled Current occupation: rt hand <Karen Avalos MD - Last Filed: 02/09/24 20:20> Meds Allergies/Adverse reactions: Allergies Allergy/AdvReac Type Severity Reaction Status Date / Time No Known Allergies Allergy Verified 02/09/24 14:26 <Karen Avalos MD - Last Filed: 02/09/24 20:20> Active Medications: Current Medications Albuterol/Ipratropium (Albuterol/Iprat 2.5/0.5mg 3 Ml Ampul.Neb) 3 ml INHALE Q6H [facility] Glucose (Glucose Gel 15 Gm Gel..Gram.) 15 gm PO Q15M PRN; Protocol PRN Reason: per Hypoglycemia Standing Ord. Vancomycin HCl (Vancomycin/Ns) 2,000 mg in 500 mls @ 250 mls/hr IV ONCE ONE Stop: 02/09/24 20:21 Last Admin: 02/09/24 19:00 Dose: 250 mls/hr Sodium Chloride (Ns) 500 mls @ 500 mls/hr IV .Q1H [facility] Stop: 02/09/24 19:29 Norepinephrine Bitartrate (Levophed) 8 mg in 250 mls @ 0 mls/hr IVCONT .Q0M [facility]; Protocol Last Admin: 02/09/24 19:01 Dose: 0.05 mcg/kg/min, 9.19 mls/hr Dextrose (D10) 250 mls @ 750 mls/hr IV Q15M PRN; Protocol PRN Reason: per Hypoglycemia Standing Ord. Pharmacy Consult (Consult Rx Vancomycin Dosing) 1 each MISCELLANE DAILY PRN PRN Reason: Consult order <Karen Avalos MD - Last Filed: 02/09/24 20:20> Home medications: Home Medications ?Medication ?Instructions ?Recorded ?Confirmed ?Last Taken ?Type atorvastatin 80 mg tablet 80 mg PO BEDTIME 02/27/20 02/09/24 02/04/24 History insulin aspart U-100 100 unit/mL 1 sliding scale dose subcut TIDAC 06/26/20 02/09/24 02/04/24 History (3 mL) subcutaneous pen citalopram 20 mg tablet 20 mg PO DAILY 07/21/20 02/09/24 02/04/24 History rivaroxaban 20 mg tablet (Xarelto) 20 mg PO DAILY@1700 08/14/23 02/09/24 02/04/24 History diphenhydramine HCl 50 mg/30 mL 50 mg PO BEDTIME PRN Sleep 08/15/23 02/09/24 Unknown History oral liquid (ZzzQuil) insulin glargine 100 unit/mL (3 28 unit subcut BEDTIME 02/04/24 02/09/24 02/04/24 History mL) subcutaneous pen (Lantus Solostar U-100 Insulin) carvedilol 25 mg tablet 25 mg PO BID 02/09/24 02/09/24 Unknown History empagliflozin 25 mg tablet 25 mg PO DAILY 02/09/24 02/09/24 Unknown History (Jardiance) furosemide 40 mg tablet 40 mg PO DAILY 02/09/24 02/09/24 Unknown History sacubitril 97 mg-valsartan 103 mg 1 tab PO BID 02/09/24 02/09/24 Unknown History tablet (Entresto) <Karen Avalos MD - Last Filed: 02/09/24 20:20> Physical Exam 2 Vital Signs: Vital Signs: Last Vital Signs Temp 98.5 F 02/09/24 19:02 Pulse 86 02/09/24 19:02 Resp 16 02/09/24 19:02 BP 81/43 L 02/09/24 19:02 Pulse Ox 96 02/09/24 19:02 O2 Del Method Nasal Cannula 02/09/24 19:02 O2 Flow Rate 2 02/09/24 19:02 BMI result Body Mass Index 43.6 <Karen Avalos MD - Last Filed: 02/09/24 20:20> Const: General: no acute distress and alert <Becca Alegre NP - Last Filed: 02/10/24 00:12> Orientation/consciousness: patient oriented x3 (answering appropriately.) < Becca Alegre NP - Last Filed: 02/10/24 00:12> HEENT: Head: Yes normocephalic and Yes atraumatic <Becca Alegre NP - Last Filed: 02/10/24 00:12> General nose exam: Normal external nose present (Nares patent, septum midline, sinuses nontender bilaterally.) <Becca Alegre NP - Last Filed: 02/10/24 00:12> Mouth: Normal oral and palatal mucosa present (No thrush, tongue in midline, mucosa moist.) <Becca Alegre NP - Last Filed: 02/10/24 00:12> Teeth and gingiva: edentulous <Becca Alegre NP - Last Filed: 02/10/24 00:12> Throat: Yes other (No erythema, no exudate.) <Becca Alegre NP - Last Filed: 02/10/24 00:12> Eyes: General: appearance normal, both eyes and all related structures < Becca Alegre NP - Last Filed: 02/10/24 00:12> Neck: Neck: Yes supple (no thyromegaly, trachea midline.) <Becca Alegre NP - Last Filed: 02/10/24 00:12> Carotids: normal carotid upstroke <Becca Alegre NP - Last Filed: 02/10/24 00:12> Resp: Effort & Inspection: normal respiratory effort, able to speak in complete sentences, no cough and no respiratory distress <Becca Alegre NP - Last Filed: 02/10/24 00:12> Auscultation: clear to auscultation bilaterally (normal work of breathing, no accessory muscle use) <Becca Alegre NP - Last Filed: 02/10/24 00:12> Cardio: Jugular venous distension: no JVD <Becca Alegre NP - Last Filed: 02/10/24 00:12> Rate: regular rate <Becca Alegre NP - Last Filed: 02/10/24 00:12> Rhythm: regular rhythm <Becca Alegre NP - Last Filed: 02/10/24 00:12> Heart sounds: no gallops, no murmurs and no rubs <Becca Alegre NP - Last Filed: 02/10/24 00:12> Peripheral pulses: Peripheral pulses 2+ throughout <Becca Alegre NP - Last Filed: 02/10/24 00:12> GI: Palpation (GI): Soft to palpation (nondistended.), Tenderness to palpation present (GI) in the RLQ and suprapubicly, no guarding and not rigid <Becca Alegre NP - Last Filed: 02/10/24 00:12> Skin: General skin exam: no rashes or lesions noted <Becca Alegre NP - Last Filed: 02/10/24 00:12> Neuro: General: patient oriented x3 (answering appropriately.) <Becca Alegre NP - Last Filed: 02/10/24 00:12> Cranial nerves: Yes CN's II-XII intact bilaterally <Becca Alegre NP - Last Filed: 02/10/24 00:12> Cognition (Neuro): normal cognition <Becca Alegre NP - Last Filed: 02/10/24 00:12> Extrem: General: Yes full ROM, Yes capillary refill normal and Yes no clubbing, cyanosis or edema <Becca Alegre NP - Last Filed: 02/10/24 00:12> Psych: Affect: normal affect <Becca Alegre NP - Last Filed: 02/10/24 00:12> Attitude: cooperative <Becca Alegre NP - Last Filed: 02/10/24 00:12> Results Labs CBC and Chem 7: 02/09/24 19:59 02/09/24 19:58 <Karen Avalos MD - Last Filed: 02/09/24 20:20> Labs: Laboratory Results - last 24 hr 02/09/24 02/09/24 14:32 15:29 MCV 92.2 MCH 29.6 MCHC 32.1 RDW 16.4 H Plt Count 142 L MPV 12.1 Immature Gran % (Auto) Cancelled Neut % (Auto) Cancelled Lymph % (Auto) Cancelled [place] % (Auto) Cancelled Eos % (Auto) Cancelled Baso % (Auto) Cancelled Lymph # (Auto) Cancelled [place] # (Auto) Cancelled Eos # (Auto) Cancelled Baso # (Auto) Cancelled Abs Immat Gran (auto) Cancelled Absolute Neuts (auto) Cancelled Absolute Nucleated RBC 0.000 Nucleated RBC % (auto) 0.0 Neutrophils % (Manual) 86 H Band Neutrophils % 10 H Lymphocytes % (Manual) 4 L Abs Neuts (Manual) 14.8 H Lymphocytes # (Manual) 0.6 L Toxic Vacuolation PRESENT Platelet Estimate NORMAL Plt Morphology Comment NORMAL RBC Morphology NOTED [place] Cells 1+ (0-2) Anion Gap 16 Estim Creat Clear Calc 33.4 Estimated GFR 32 Random Glucose 210 H Lactic Acid 1.9 Calcium 9.8 D Total Bilirubin 1.5 H Direct Bilirubin 0.6 H AST 22 ALT 17 Alkaline Phosphatase 141 H Troponin I High Sens 501.8 H* B-Natriuretic Peptide 731 H Total Protein 7.8 Albumin 4.2 Lipase 17 Urine Color Yellow Urine Appearance Cloudy Urine pH 7.0 Ur Specific [place] 1.020 Urine Protein 300 (3+) H Urine Glucose (UA) >=1000 H Urine Ketones Trace Urine Blood Large (3+) H Urine Nitrite Positive H Ur Leukocyte Esterase Trace H Urine RBC >20 H Urine WBC 21-50 H Ur Squamous Epith Cells 3-5 Urine Bacteria 4+ Hyaline Casts 0-2 <Karen Avalos MD - Last Filed: 02/09/24 20:20> Imaging Radiologist's Impressions: Impressions Abdomen/Pelvis CT 02/09/24 14:02 IMPRESSION: 1. Obstructing stone in distal right ureter with hydroureteronephrosis and perinephric stranding mild ascites. 2. Left adrenal gland nodule, stable since previous study. 3. Diverticulosis without diverticulitis. 4. Hepatic steatosis. 5. Small amount of gas in the urinary bladder most likely result of infection versus instrumentation. Fleischner guidelines were followed. Electronically signed by: Isaak Shearer MD 02/09/2024 06:26 PM EDT RP <Karen Avalos MD - Last Filed: 02/09/24 20:20> Assessment and Plan (1) Septic shock: Status: Acute <Karen Avalos MD - Last Filed: 02/09/24 20:20> (2) Pyelonephritis: Status: Acute <Karen Avalos MD - Last Filed: 02/09/24 20:20> Patient is a 65 Y F w/ hypertension, hyperlipidemia, diabetes mellitus, c/b coronary artery disease c/b heart failure s/p ICD, aortic stenosis, TAQUERIA, and prior PE c/b respiratory arrest on rivaroxaban, who presented initially to the emergency department on 02/08 w/ R flank pain, found to have obstructing uretal stone, c/b septic shock N: no acute issues CV: c/f septic shock, norepinephrine gtt, wean as tolerated; troponinemia, though appears at baseline; hypertension, hyperlipidemia, coronary artery disease c/b heart failure s/p ICD R: TAQUERIA on BiPAP; no acute issues GI: NPO for procedural planning : obstructive R uretal stone c/b pyleonephritis c/b septic shock; pending urological procedure H: prior PE on apxiaban, to hold for procedural planning; chronic thrombocytopenia, to monitor ID: urosepsis, empiric vancomycin, meropenem; to follow-up BCx, UCx E: diabetes mellitus, insulin regimen P: no acute issues <Karen Avalos MD - Last Filed: 02/09/24 20:20>
--- NOTE | 2024-02-09 19:22 | PC.NURSE ---
eceived report from Yas MATTHEWS, assume care of pt at this time
[2024-02-09 19:38] LABS: Glucose, Whole Blood 199 mg/dL (60-115)
[2024-02-09] MEDS: 0.9 % Sodium Chloride 500 ML IV (19:49)
[2024-02-09 20:17] LABS: Lactic Acid 1.8 mmol/L (0.5-2.0)
[2024-02-09 20:22] LABS: Alanine Aminotransferase 15 U/L (0-31); Albumin Level 3.7 g/dL (3.5-5.0); Alkaline Phosphatase 110 U/L (39-117); Anion Gap 14 (12-20); Aspartate Amino Transferase 21 U/L (5-31); Blood Urea Nitrogen 29 mg/dL (9-16); Calcium 9.3 mg/dL (8.4-10.2); Carbon Dioxide 21 mmol/L (22-29); Chloride 106 mmol/L (96-108); Creatinine Clr Calc Pharmacy 30.3; Estimated Glomerular Filt Rate 29; Glucose Random 199 mg/dL (60-115); Magnesium 2.1 mg/dL (1.6-2.6); Phosphorus 3.3 mg/dL (2.7-4.5); Potassium 3.7 mmol/L (3.3-5.1); Sodium 137 mmol/L (135-145); Total Protein 6.7 g/dL (6.5-8.0)
[2024-02-09 20:29] LABS: Hematocrit 51.2 % (37.0-47.0); Hemoglobin 16.8 g/dl (12.0-16.0); Mean Corpuscular HGB Conc 32.8 g/dl (31.0-35.0); Mean Corpuscular Hemoglobin 29.9 pg (27.0-33.0); Mean Corpuscular Volume 91.3 fL (80.0-98.0); Platelet Count 139 X10*3/uL (160-400); Red Blood Count 5.61 X10*6/uL (4.20-5.50); Red Cell Distribution Width 15.9 % (11.0-16.0)
--- NOTE | 2024-02-09 20:29 | PM.UROCN ---
History of Present Illness Consult details Consult date: 02/09/24 Narrative: La Nena is a 69 year old female PMH HFrEF with biventricular ICD (EF 30 - 65%); restrictive lung disease, hx PE on Xarelto, hx respiratory arrest, T2DM, HTN, morbid obesity, TAQUERIA on CPAP, CAD s/p CABG (2014). Had cardiac event a few months ago. CTAP right obstructive uropathy admitted to [facility] for hemodynamic monitoring Review of Systems Review of Systems: 10 point ROS negative other than stated in HPI REPLACED BY [facility] Past Medical History Medical History CHF (congestive heart failure) Sleep apnea Presence of CardioMEMS HF system Hx of myocardial infarction Anxiety and depression Osteoarthritis Fatty liver Restrictive lung disease TAQUERIA treated with BiPAP Morbid obesity Biventricular ICD (implantable cardioverter-defibrillator) in place CAD (coronary artery disease) Non-rheumatic aortic stenosis Atherosclerotic cardiovascular disease Acute on chronic systolic and diastolic heart failure, NYHA class 3 Leukocytosis Dyspnea Transaminitis Hypoxia Congestive heart failure TAQUERIA (obstructive sleep apnea) NSVT (nonsustained ventricular tachycardia) Cardiomyopathy Chronic systolic heart failure Diabetes mellitus HLD (hyperlipidemia) HTN (hypertension) Family History Family History Father No problems noted. Mother No problems noted. Surgical History Surgical History History of incision and drainage Status post coronary artery bypass graft Stented coronary artery Hx of CABG History of cardiac cath Hx of cardiac cath Hx of cardiac cath Hx of appendectomy History of cholecystectomy Social History Social History Household Members: Family Household Members Other:: son and daughter in law Housing: Apartment Are you a primary customer care professional to a significant other at home: No Do you presently have visiting nurse or other home services: No Alcohol intake: never Comment: chronic back pain Patient Tobacco Use Status: Current everyday Tobacco user Tobacco use type: Cigarette Cigarette Packs Per Day: 1 Years Smoked: 30 e-Cigarette/Vaping Use: Never Used Patient Given Instructions on How to Stop Smoking: No (pt refused) Second Hand Smoke Exposure: No Use of substances other than those prescribed or required for medical reasons: No Have you been hit, kicked, punched, or otherwise hurt by someone within the past year? If so, by whom?: No Do you feel safe in your current relationship?: No Current Relationship Is there a partner from a previous relationship who is making you feel unsafe now?: No Are you made to feel afraid or neglected: No Advance Directives: Yes Advance Directives on File: Yes Advance Directives Date on File: 11/07/22 Do you have a plan to hurt others: No Plan Recently lost weight without trying: Unsure Nutrition Risks: No Nutritional Risk Patient : No : No Poor oral hygiene: No service: No Current occupational status: unemployed and disabled Current occupation: rt hand Meds Allergies Allergy/AdvReac Type Severity Reaction Status Date / Time No Known Allergies Allergy Verified 02/09/24 14:26 Active Medications: Current Medications Albuterol/Ipratropium (Albuterol/Iprat 2.5/0.5mg 3 Ml Ampul.Neb) 3 ml INHALE RQ6H [facility] Glucose (Glucose Gel 15 Gm Gel..Gram.) 15 gm PO Q15M PRN; Protocol PRN Reason: per Hypoglycemia Standing Ord. Heparin Sodium (Porcine) (Heparin Sodium,Porcine 5,000 Unit/Ml Vial) 3,800 unit 40 unit/kg (3800 unit) IVPUSH PROTOCOL BOLUS PRN; Protocol PRN Reason: 40 unit/kg - Heparin Protocol Heparin Sodium (Porcine) (Heparin Sodium,Porcine 5,000 Unit/Ml Vial) 7,700 unit 80 unit/kg (7700 unit) IVPUSH PROTOCOL BOLUS PRN; Protocol PRN Reason: 80 unit/kg - Heparin Protocol Norepinephrine Bitartrate (Levophed) 8 mg in 250 mls @ 0 mls/hr IVCONT .Q0M [facility]; Protocol Last Admin: 02/09/24 19:01 Dose: 0.05 mcg/kg/min, 9.19 mls/hr Dextrose (D10) 250 mls @ 750 mls/hr IV Q15M PRN; Protocol PRN Reason: per Hypoglycemia Standing Ord. Vancomycin HCl 750 mg/ Sodium (Chloride) 265 mls @ 265 mls/hr IV ONCE ONE Stop: 02/10/24 19:59 Heparin Sodium/Sodium Chloride (Heparin Sodium,Porcine/1/2ns) 25,000 unit in 250 mls @ 0 mls/hr IVCONT .Q0M [facility]; Protocol Meropenem (Meropenem 1 Gm Vial) 1 gm IVPUSH Q12H [facility] Pharmacy Consult (Consult Rx Vancomycin Dosing) 1 each MISCELLANE DAILY PRN PRN Reason: Consult order Sodium Chloride (0.9 % Sodium Chloride Flush 3 Ml Syringe) 3 ml IVFLUSH QSHIFT [facility] Home Medications ?Medication ?Instructions ?Recorded ?Confirmed ?Last Taken ?Type atorvastatin 80 mg tablet 80 mg PO BEDTIME 02/27/20 02/09/24 02/04/24 History insulin aspart U-100 100 unit/mL 1 sliding scale dose subcut TIDAC 06/26/20 02/09/24 02/04/24 History (3 mL) subcutaneous pen citalopram 20 mg tablet 20 mg PO DAILY 07/21/20 02/09/24 02/04/24 History rivaroxaban 20 mg tablet (Xarelto) 20 mg PO DAILY@1700 08/14/23 02/09/24 02/04/24 History diphenhydramine HCl 50 mg/30 mL 50 mg PO BEDTIME PRN Sleep 08/15/23 02/09/24 Unknown History oral liquid (ZzzQuil) insulin glargine 100 unit/mL (3 28 unit subcut BEDTIME 02/04/24 02/09/24 02/04/24 History mL) subcutaneous pen (Lantus Solostar U-100 Insulin) carvedilol 25 mg tablet 25 mg PO BID 02/09/24 02/09/24 Unknown History empagliflozin 25 mg tablet 25 mg PO DAILY 02/09/24 02/09/24 Unknown History (Jardiance) furosemide 40 mg tablet 40 mg PO DAILY 02/09/24 02/09/24 Unknown History sacubitril 97 mg-valsartan 103 mg 1 tab PO BID 02/09/24 02/09/24 Unknown History tablet (Entresto) Physical Exam Vital Signs: Vital Signs: Last Vital Signs Temp 98.5 F 02/09/24 19:02 Pulse 86 02/09/24 19:02 Resp 16 02/09/24 19:02 BP 81/43 L 02/09/24 19:02 Pulse Ox 96 02/09/24 19:02 O2 Del Method Nasal Cannula 02/09/24 19:02 O2 Flow Rate 2 02/09/24 19:02 BMI result Body Mass Index 42.6 Const: General: cooperative Orientation/consciousness: patient oriented x3 HEENT: Head: Yes normal to inspection, Yes normocephalic and Yes atraumatic Eyes: Conjunctivae: conjunctivae normal Neck: Neck: Yes normal visual inspection and Yes trachea midline Chest: Chest palpation & inspection: normal inspection of the chest Cardio: Other: patient getting a central line GI: Inspection: Yes normal to inspection Palpation (GI): Soft to palpation Skin: General skin exam: no rashes or lesions noted Neuro: General: patient oriented x3 Psych: Appearance: grossly normal Results Labs 02/09/24 19:59 02/09/24 19:58 Labs: Abnormal lab results 02/09/24 02/09/24 02/09/24 Range/Units 14:32 19:34 19:58 WBC 15.4 H (4.8-10.8) X10*3/uL RBC 6.01 H (4.20-5.50) X10*6/uL Hgb 17.8 H (12.0-16.0) g/dl Hct 55.4 H (37.0-47.0) % RDW 16.4 H (11.0-16.0) % Plt Count 142 L (160-400) X10*3/uL Neutrophils % (Manual) 86 H (45-73) % Band Neutrophils % 10 H (3-5) % Lymphocytes % (Manual) 4 L (20-40) % Abs Neuts (Manual) 14.8 H (2.0-8.3) X10*3/uL Lymphocytes # (Manual) 0.6 L (1.2-4.9) X10*3/uL Carbon Dioxide 21 L (22-29) mmol/L BUN 28 H 29 H (9-16) mg/dL Creatinine 1.61 H 1.75 H (0.5-1.4) mg/dL POC Glucose 199 H (60-115) mg/dL Random Glucose 210 H 199 H (60-115) mg/dL Total Bilirubin 1.5 H (0.0-1.0) mg/dL Direct Bilirubin 0.6 H (0.0-0.5) mg/dL Alkaline Phosphatase 141 H (39-117) U/L Troponin I High Sens 501.8 H* (<3.5-17.0) ng/L B-Natriuretic Peptide 731 H (<100) pg/mL Urine Protein 300 (3+) H (Neg-Trace) mg/dL Urine Glucose (UA) >=1000 H (Negative) mg/dL Urine Blood Large (3+) H (Negative) Urine Nitrite Positive H (Negative) Ur Leukocyte Esterase Trace H (Negative) Urine RBC >20 H (0-2) /HPF Urine WBC 21-50 H (0-5) /HPF Short CBC 02/09/24 Range/Units 14:32 WBC 15.4 H (4.8-10.8) X10*3/uL Hgb 17.8 H (12.0-16.0) g/dl Hct 55.4 H (37.0-47.0) % Plt Count 142 L (160-400) X10*3/uL BMP 02/09/24 02/09/24 14:32 19:58 Sodium 140 137 Potassium 4.2 D 3.7 Chloride 103 106 Carbon Dioxide 25 21 L BUN 28 H 29 H Creatinine 1.61 H 1.75 H Calcium 9.8 D 9.3 Liver Function 02/09/24 02/09/24 Range/Units 14:32 19:58 Total Bilirubin 1.5 H 1.0 (0.0-1.0) mg/dL Direct Bilirubin 0.6 H (0.0-0.5) mg/dL AST 22 21 (5-31) U/L ALT 17 15 (0-31) U/L Alkaline Phosphatase 141 H 110 (39-117) U/L Albumin 4.2 3.7 (3.5-5.0) g/dL Urine 02/09/24 Range/Units 14:32 Urine Color Yellow Urine Appearance Cloudy Urine pH 7.0 (5.0-9.0) Ur Specific [place] 1.020 (1.005-1.025) Urine Protein 300 (3+) H (Neg-Trace) mg/dL Urine Glucose (UA) >=1000 H (Negative) mg/dL All other labs normal. Assessment and Plan (1) Pyelonephritis: Status: Acute (2) Septic shock: Status: Acute (3) Obstruction of kidney: Status: Acute Plan cystoscopy right ureteral stent Procedures Date of Service Date of Service: 02/09/24
[2024-02-09 20:31] LABS: Troponin-I High Sensitivity 455.2 ng/L (<3.5-17.0)
--- NOTE | 2024-02-09 20:32 | PHA.MEDREC ---
Pharmacy Consult ? Medication Reconciliation Pharmacy has completed the medication reconciliation. Spoke to patient at bedside, named all of her medications. She said she takes lasix 40mg, Entresto and carvedilol twice daily and Jardiance despite no recent claim history for those. She was insistent that she takes them. Xarelto has not been filled since September but she did tell the provider she took it last night. Atorvastatin, citalopram and Lantus all within claim history date. I believe patient to be noncompliant, attempted to call [facility] pharmacy in [place] but they are closed.
[2024-02-09 20:39] LABS: Band Neutrophils Percent 12 % (3-5); Lymphocytes Absolute Manual 1.2 X10*3/uL (1.2-4.9); Lymphocytes Percent Manual 5 % (20-40); Monocytes Absolute Manual 0.2 X10*3/uL (0.1-1.2); Monocytes Percent Manual 1 % (2-11); Neutrophils Absolute Manual 22.6 X10*3/uL (2.0-8.3); Neutrophils Percent Manual 82 % (45-73); Platelet Morphology Comment NORMAL; RBC Morphology NORMAL; Toxic Vacuolation PRESENT
[2024-02-09 20:41] LABS: Platelet Estimate SLIGHTLY DECREASED (NORMAL)
--- NOTE | 2024-02-09 20:59 | HO.ANESPROP2 ---
[facility] Active Problems Active Problems: All Active Problems Pyelonephritis (Acute) Septic shock (Acute) Hypoxia (Acute) Demand ischemia (Acute) Obstruction of kidney (Acute) Sepsis (Acute) Systolic heart failure (Acute) Acute on chronic combined systolic (congestive) and diastolic (congestive) heart failure (Acute) Mallet deformity of right index finger (Acute) Closed mallet fracture of distal phalanx of right index finger (Acute) Closed fracture of distal phalanx of right index finger (Acute) S/P cardiac catheterization (Acute) Respiratory arrest (Acute) Hospital discharge follow-up (Acute) Acute on chronic systolic and diastolic heart failure, NYHA class 3 (Acute) Acute on chronic systolic and diastolic heart failure, NYHA class 1 (Acute) Encounter for screening colonoscopy (Acute) Prolonged QT interval (Acute) Chronic diastolic heart failure (Acute) GABINO (acute kidney injury) (Acute) Fracture of proximal phalanx of left ring finger (Acute) Aortic stenosis (Acute) Presence of CardioMEMS HF system (Acute) Cardiomyopathy (Acute) Restrictive lung disease (Acute) TAQUERIA treated with BiPAP (Acute) Morbid obesity (Acute) Biventricular ICD (implantable cardioverter-defibrillator) in place (Acute) CAD (coronary artery disease) (Acute) Chronic systolic heart failure (Acute) Diabetes mellitus (Acute) HLD (hyperlipidemia) (Acute) HTN (hypertension) (Acute) Past Medical History Medical History CHF (congestive heart failure) Sleep apnea Presence of CardioMEMS HF system Hx of myocardial infarction Anxiety and depression Osteoarthritis Fatty liver Restrictive lung disease TAQUERIA treated with BiPAP Morbid obesity Biventricular ICD (implantable cardioverter-defibrillator) in place CAD (coronary artery disease) Non-rheumatic aortic stenosis Atherosclerotic cardiovascular disease Acute on chronic systolic and diastolic heart failure, NYHA class 3 Leukocytosis Dyspnea Transaminitis Hypoxia Congestive heart failure TAQUERIA (obstructive sleep apnea) NSVT (nonsustained ventricular tachycardia) Cardiomyopathy Chronic systolic heart failure Diabetes mellitus HLD (hyperlipidemia) HTN (hypertension) Functional capacity: independent ambulation Family History Family History Father No problems noted. Mother No problems noted. Family history of problems with anesthesia: No Surgical History Surgical History History of incision and drainage Status post coronary artery bypass graft Stented coronary artery Hx of CABG History of cardiac cath Hx of cardiac cath Hx of cardiac cath Hx of appendectomy History of cholecystectomy History of Problems with Anesthesia: No Social History Social History Household Members: Family Household Members Other:: son and daughter in law Housing: Apartment Are you a primary youth care specialist to a significant other at home: No Do you presently have visiting nurse or other home services: No Alcohol intake: never Comment: chronic back pain Patient Tobacco Use Status: Current everyday Tobacco user Tobacco use type: Cigarette Cigarette Packs Per Day: 1 Years Smoked: 30 e-Cigarette/Vaping Use: Never Used Patient Given Instructions on How to Stop Smoking: No (pt refused) Second Hand Smoke Exposure: No Use of substances other than those prescribed or required for medical reasons: No Have you been hit, kicked, punched, or otherwise hurt by someone within the past year? If so, by whom?: No Do you feel safe in your current relationship?: No Current Relationship Is there a partner from a previous relationship who is making you feel unsafe now?: No Are you made to feel afraid or neglected: No Advance Directives: Yes Advance Directives on File: Yes Advance Directives Date on File: 11/07/22 Do you have a plan to hurt others: No Plan Recently lost weight without trying: Unsure Nutrition Risks: No Nutritional Risk Patient : No : No Poor oral hygiene: No service: No Current occupational status: unemployed and disabled Current occupation: rt hand Meds Allergies Allergy/AdvReac Type Severity Reaction Status Date / Time No Known Allergies Allergy Verified 02/09/24 14:26 Active Medications: Current Medications Albuterol/Ipratropium (Albuterol/Iprat 2.5/0.5mg 3 Ml Ampul.Neb) 3 ml INHALE RQ6H WALLACE Glucose (Glucose Gel 15 Gm Gel..Gram.) 15 gm PO Q15M PRN; Protocol PRN Reason: per Hypoglycemia Standing Ord. Heparin Sodium (Porcine) (Heparin Sodium,Porcine 5,000 Unit/Ml Vial) 3,800 unit 40 unit/kg (3800 unit) IVPUSH PROTOCOL BOLUS PRN; Protocol PRN Reason: 40 unit/kg - Heparin Protocol Heparin Sodium (Porcine) (Heparin Sodium,Porcine 5,000 Unit/Ml Vial) 7,700 unit 80 unit/kg (7700 unit) IVPUSH PROTOCOL BOLUS PRN; Protocol PRN Reason: 80 unit/kg - Heparin Protocol Norepinephrine Bitartrate (Levophed) 8 mg in 250 mls @ 0 mls/hr IVCONT .Q0M WALLACE; Protocol Last Admin: 02/09/24 19:01 Dose: 0.05 mcg/kg/min, 9.19 mls/hr Dextrose (D10) 250 mls @ 750 mls/hr IV Q15M PRN; Protocol PRN Reason: per Hypoglycemia Standing Ord. Vancomycin HCl 750 mg/ Sodium (Chloride) 265 mls @ 265 mls/hr IV ONCE ONE Stop: 02/10/24 19:59 Heparin Sodium/Sodium Chloride (Heparin Sodium,Porcine/1/2ns) 25,000 unit in 250 mls @ 0 mls/hr IVCONT .Q0M [facility]; Protocol Meropenem (Meropenem 1 Gm Vial) 1 gm IVPUSH Q12H [facility] Pharmacy Consult (Consult Rx Vancomycin Dosing) 1 each MISCELLANE DAILY PRN PRN Reason: Consult order Sodium Chloride (0.9 % Sodium Chloride Flush 3 Ml Syringe) 3 ml IVFLUSH QSHIFT [facility] Home Medications ?Medication ?Instructions ?Recorded ?Confirmed ?Last Taken ?Type atorvastatin 80 mg tablet 80 mg PO BEDTIME 02/27/20 02/09/24 02/04/24 History insulin aspart U-100 100 unit/mL 1 sliding scale dose subcut TIDAC 06/26/20 02/09/24 02/04/24 History (3 mL) subcutaneous pen citalopram 20 mg tablet 20 mg PO DAILY 07/21/20 02/09/24 02/04/24 History rivaroxaban 20 mg tablet (Xarelto) 20 mg PO DAILY@1700 08/14/23 02/09/24 02/04/24 History diphenhydramine HCl 50 mg/30 mL 50 mg PO BEDTIME PRN Sleep 08/15/23 02/09/24 Unknown History oral liquid (ZzzQuil) insulin glargine 100 unit/mL (3 28 unit subcut BEDTIME 02/04/24 02/09/24 02/04/24 History mL) subcutaneous pen (Lantus Solostar U-100 Insulin) carvedilol 25 mg tablet 25 mg PO BID 02/09/24 02/09/24 Unknown History empagliflozin 25 mg tablet 25 mg PO DAILY 02/09/24 02/09/24 Unknown History (Jardiance) furosemide 40 mg tablet 40 mg PO DAILY 02/09/24 02/09/24 Unknown History sacubitril 97 mg-valsartan 103 mg 1 tab PO BID 02/09/24 02/09/24 Unknown History tablet (Entresto) Exam Height,Weight and Vital Signs: Height 4 ft 11 in Weight 95.7 kg Last Vital Signs Temp 98.5 F 02/09/24 19:02 Pulse 86 02/09/24 19:02 Resp 16 02/09/24 19:02 BP 81/43 L 02/09/24 19:02 Pulse Ox 96 02/09/24 19:02 O2 Del Method Nasal Cannula 02/09/24 19:02 O2 Flow Rate 2 02/09/24 19:02 Pertinent Lab Results Pertinent Lab Results: Laboratory Tests 02/09/24 02/09/24 02/09/24 14:32 15:29 19:34 WBC 15.4 H RBC 6.01 H Hgb 17.8 H Hct 55.4 H MCV 92.2 MCH 29.6 MCHC 32.1 RDW 16.4 H Plt Count 142 L MPV 12.1 Immature Gran % (Auto) Cancelled Neut % (Auto) Cancelled Lymph % (Auto) Cancelled [place] % (Auto) Cancelled Eos % (Auto) Cancelled Baso % (Auto) Cancelled Lymph # (Auto) Cancelled [place] # (Auto) Cancelled Eos # (Auto) Cancelled Baso # (Auto) Cancelled Abs Immat Gran (auto) Cancelled Absolute Neuts (auto) Cancelled Absolute Nucleated RBC 0.000 Nucleated RBC % (auto) 0.0 Neutrophils % (Manual) 86 H Band Neutrophils % 10 H Lymphocytes % (Manual) 4 L Monocytes % (Manual) Abs Neuts (Manual) 14.8 H Lymphocytes # (Manual) 0.6 L Monocytes # (Manual) Toxic Vacuolation PRESENT Platelet Estimate NORMAL Plt Morphology Comment NORMAL RBC Morphology NOTED Priya Cells 1+ (0-2) aPTT Heparin Protocol Sodium 140 Potassium 4.2 D Chloride 103 Carbon Dioxide 25 Anion Gap 16 BUN 28 H Creatinine 1.61 H Estim Creat Clear Calc 33.4 Estimated GFR 32 POC Glucose 199 H Random Glucose 210 H Lactic Acid 1.9 Calcium 9.8 D Phosphorus Magnesium Total Bilirubin 1.5 H Direct Bilirubin 0.6 H AST 22 ALT 17 Alkaline Phosphatase 141 H Troponin I High Sens 501.8 H* B-Natriuretic Peptide 731 H Total Protein 7.8 Albumin 4.2 Lipase 17 Urine Color Yellow Urine Appearance Cloudy Urine pH 7.0 Ur Specific [place] 1.020 Urine Protein 300 (3+) H Urine Glucose (UA) >=1000 H Urine Ketones Trace Urine Blood Large (3+) H Urine Nitrite Positive H Ur Leukocyte Esterase Trace H Urine RBC >20 H Urine WBC 21-50 H Ur Squamous Epith Cells 3-5 Urine Bacteria 4+ Hyaline Casts 0-2 02/09/24 02/09/24 02/09/24 19:57 19:58 19:59 WBC 24.0 H RBC 5.61 H Hgb 16.8 H Hct 51.2 H MCV 91.3 MCH 29.9 MCHC 32.8 RDW 15.9 Plt Count 139 L MPV 12.0 Immature Gran % (Auto) Cancelled Neut % (Auto) Cancelled Lymph % (Auto) Cancelled [place] % (Auto) Cancelled Eos % (Auto) Cancelled Baso % (Auto) Cancelled Lymph # (Auto) Cancelled [place] # (Auto) Cancelled Eos # (Auto) Cancelled Baso # (Auto) Cancelled Abs Immat Gran (auto) Cancelled Absolute Neuts (auto) Cancelled Absolute Nucleated RBC 0.000 Nucleated RBC % (auto) 0.0 Neutrophils % (Manual) 82 H Band Neutrophils % 12 H Lymphocytes % (Manual) 5 L Monocytes % (Manual) 1 L Abs Neuts (Manual) 22.6 H Lymphocytes # (Manual) 1.2 Monocytes # (Manual) 0.2 Toxic Vacuolation PRESENT Platelet Estimate SLIGHTLY DECREASED Plt Morphology Comment NORMAL RBC Morphology NORMAL Priya Cells aPTT Heparin Protocol Cancelled Sodium 137 Potassium 3.7 Chloride 106 Carbon Dioxide 21 L Anion Gap 14 BUN 29 H Creatinine 1.75 H Estim Creat Clear Calc 30.3 Estimated GFR 29 POC Glucose Random Glucose 199 H Lactic Acid 1.8 Calcium 9.3 Phosphorus 3.3 Magnesium 2.1 Total Bilirubin 1.0 Direct Bilirubin AST 21 ALT 15 Alkaline Phosphatase 110 Troponin I High Sens 455.2 H* B-Natriuretic Peptide Total Protein 6.7 Albumin 3.7 Lipase Urine Color Urine Appearance Urine pH Ur Specific [place] Urine Protein Urine Glucose (UA) Urine Ketones Urine Blood Urine Nitrite Ur Leukocyte Esterase Urine RBC Urine WBC Ur Squamous Epith Cells Urine Bacteria Hyaline Casts Airway Mallampati Class: IV TM Dist: >3cm Neck ROM: Full Denture: Upper and Lower Heart: paced Lungs: CTA Assessment and Plan Assessment Anesthesia Assessment: Anesthesia Plan Discussed, Smoking Cess. Discussed and Chart Reviewed Final Anesthetic Review Family History of Problems with Anesthesia: No History of Problems with Anesthesia: No NPO: Yes ASA Class: IV and Emergency Final Preanesthetic Review: Meds/Allgs Chart Reviewed, Consent Obtained/Reviewed and Anes Risks/Benef Reviewed Patient Risk: High Procedure Risk: Intermediate Anesthetic Plan Anesthetic Plan: GA Disposition: Inp. Admit - ICU
[2024-02-09 21:23] LABS: INTERNATIONAL NORM RATIO 1.6 (0.9-1.1)
[2024-02-09 21:26] LABS: Partial Thromboplastin Time 41.7 SEC (26.0-36.8)
--- NOTE | 2024-02-09 21:29 | P.PCNCC_ITS ---
Procedures Date of Service Date of Service: 02/09/24 Central Line Placement Right IJ: Central Line Comments: The right neck was widely prepped and draped in full sterile fashion.? Under US? guidance, the right IJ vein was cannulated on the 1st pass of the 18 g thin wall needle, with return of dark, nonpulsatile blood. ? The wire was threaded without incident.? The 16 cm x 7 German triple-lumen CVC was advanced into the vein up to the hub via the Seldinger technique without incident.? There was good blood return x3.? The catheter was sutured x2 and a Biopatch and dry sterile dressing were applied. The patient tolerated the procedure well with no complications. Postop chest x-ray showed the line in good position with no pneumothorax.? The patient tolerated the procedure well with no complications. Consent for Procedure: Elective - informed consent obtained Time out performed: Yes Sterile Technique Used: Yes Patient placed on monitor/pulse ox: Yes MD prep: mask, gown and gloves Central line prep: Chlorhexidine scrub and sterile drapes applied Local anesthesia used: lidocaine 1% Amount of anesthesia used (ml): 3 Ultrasound used for placement: Yes Central line lumen inserted: triple Post procedure: sutured in place, good blood return, all ports aspirated, flushed, capped and sterile dressing applied Post procedure x-ray: tip of catheter in good position and no pneumothorax seen Patient tolerated procedure: well and no complications
--- NOTE | 2024-02-09 22:27 | P.OP_ITS ---
Operative Note Operative Note Date of Service: 02/09/24 Narrative: PreOperative Diagnosis:?? right ureteral stone, UTI sepsis, right hydronephrosis, obstructive uropathy Post Operative Diagnosis:?? ?right ureteral stone, UTI sepsis, right hydronephr osis, obstructive uropathy Procedure: Cystoscopy, right retrograde right stent insertion, size 7 fr by 24 cm Surgeon:?Dr Ion Lino Anesthesia:? General Procedure: After informed consent was verified the patient was brought from the ICU to the operating placed on the OR table in supine position.? General Anesthesia was administered per protocol.? The patient was placed in lithotomy position, prepped and draped in the usual sterile fashion.? Safety pause time-out and side of surgery confirmed.? Antibiotics confirmed. A 22 Bangladeshi cystoscope was inserted transurethrally. The right ureteric orifice was identified. The? ureteric orifice was cannulated. A hydrophilic guidewire was placed up to the level of the renal pelvis under fluoroscopy. The open ended catheter was passed to the renal pelvis, urine from the kidney was sent for culture. A retrograde examination was performed, to denote the renal pelvis. A 7 fr by 24 cm ureteral stent was passed over the guide wire under fluoroscopic guidance. The guide wire was removed. purulent urine was visualized draining from right urinary tract. The bladder was emptied.? The rigid cystoscope was removed. ? A 16 fr bella was placed. The patient tolerated the procedure well and was brought to the ICU in stable condition. Complications: None Drains: 16 fr bella, Ureteral stent as dictated above
[2024-02-09] MEDS: Meropenem 500 MG VIAL 750 MG IVPUSH (23:01)
[2024-02-09] MEDS: 0.9 % Sodium Chloride Flush 3 ML SYRINGE IVFLUSH (23:04)
[2024-02-09] MEDS: Morphine Sulfate 2 MG/ML CARTRIDGE IVPUSH (23:16)
[2024-02-10] VITALS (40 sets, daily range): BP systolic 71–158; BP diastolic 31–57; PULSE 70–92; RESP 13–21; TEMP 36–37.5; O2SAT 91–99; BMI 43.3
[2024-02-10] MEDS: Albuterol/Iprat 2.5/0.5MG 3 ML AMPUL.NEB INHALE ×4 (00:06→23:12)
[2024-02-10 00:58] LABS: Glucose, Whole Blood 168 mg/dL (60-115)
--- NOTE | 2024-02-10 04:13 | PC.NURSE ---
Patient admitted to ICU from ED via stretcher on 02/08 at approx~ 2015. Upon initial assessment, patient A&Ox4, appropriate and cooperative. V-Paced on tele with occasional PVCs, levophed gtt running upon arrival and titrated for MAP >65, see MAR. Patient breathing even and unlabored on 2L NC. Lung sounds dim to auscultation. Abdomen soft and round, hypoactive bowel sounds noted x4 quadrants. Patient previously voiding via commode, explained the need for bella catheter insertion in OR for urethral stent placement. Skin overall warm, dry, and intact. OR team to bedside for informed consent, witnessed by this RN. TLC placed to right IJ by PIA Alegre without incident and verified by CXR . Family to bedside and updated by this RN, PIA Alegre, and OR team on plan of care. Bed locked in lowest possible position, bed alarm on, repositioned as tolerated with pillows. Patient taken to OR by OR team at approx~ 2140. Upon return from OR at approx 2240, patient A&Ox4, more drowsy from anesthesia. Reporting 5/10 pain, morphine ordered and administered per JUN. Patient SpO2 86-89%, increased O2 to 4L NC with good effect. Bella catheter in place draining clear, punch-colored urine. Patient now resting comfortably, bed locked in lowest position, call stratton within reach, bed alarm on.
[2024-02-10 05:50] LABS: Basophils Absolute Auto 0.2 X10*3/uL (0.0-0.2); Basophils Percent Auto 0.6 % (0-2); Eosinophils Percent Auto 0.1 % (0-4); Hematocrit 49.4 % (37.0-47.0); Hemoglobin 15.7 g/dl (12.0-16.0); Imm Gran Abs Auto 0.44 X10*3/uL (0.00-0.03); Imm Gran Pct Auto 1.5 % (0.0-0.4); Lymphocytes Absolute Auto 1.7 X10*3/uL (1.2-4.9); Lymphocytes Percent Auto 5.9 % (20-40); MANUAL DIFF FLAG SCAN; Mean Corpuscular HGB Conc 31.8 g/dl (31.0-35.0); Mean Corpuscular Hemoglobin 29.5 pg (27.0-33.0); Mean Corpuscular Volume 92.9 fL (80.0-98.0); Mean Platelet Volume 12.9 fL (9.4-12.3); Monocytes Absolute Auto 1.2 X10*3/uL (0.1-1.2); Monocytes Percent Auto 4.2 % (2-11); Neutrophils Absolute Auto 25.8 x10*3/uL (2.0-8.3); Neutrophils Percent Auto 87.7 % (45-73); Platelet Count 132 X10*3/uL (160-400); Red Blood Count 5.32 X10*6/uL (4.20-5.50); Red Cell Distribution Width 16.1 % (11.0-16.0); SCAN SMEAR FLAG 1; White Blood Count 29.4 X10*3/uL (4.8-10.8)
[2024-02-10 05:58] LABS: INTERNATIONAL NORM RATIO 1.4 (0.9-1.1); Prothrombin Time 16.4 SEC (10.9-12.4)
[2024-02-10 06:04] LABS: Anion Gap 14 (12-20); Blood Urea Nitrogen 29 mg/dL (9-16); Calcium 8.4 mg/dL (8.4-10.2); Carbon Dioxide 22 mmol/L (22-29); Chloride 109 mmol/L (96-108); Creatinine Clr Calc Pharmacy 28.9; Estimated Glomerular Filt Rate 27; Glucose Random 171 mg/dL (60-115); Magnesium 2.1 mg/dL (1.6-2.6); Phosphorus 4.3 mg/dL (2.7-4.5); Sodium 141 mmol/L (135-145)
[2024-02-10 06:13] LABS: SLIDE REVIEW VERIFIED
[2024-02-10 07:54] LABS: Glucose, Whole Blood 177 mg/dL (60-115)
[2024-02-10] MEDS: Flu Vacc TS2024-25(6mos up)/PF 0.5 ML SYRINGE IM (08:08)
[2024-02-10] MEDS: 0.9 % Sodium Chloride Flush 3 ML SYRINGE IVFLUSH ×3 (08:09→23:05)
[2024-02-10] MEDS: Insulin Lispro 100 UNIT/ML 3 ML VIAL SUBCUT ×3 (08:09→17:46)
--- NOTE | 2024-02-10 08:17 | P.PNCC_ITS ---
Subjective Subjective Date of Service: 02/10/24 Interval History: admitted 02/08 PM for obstructive urethral stone c/b septic shock s/p stent placement; remains critically ill, though stable Critical Care Time (minutes): 60 Physical Exam 2 Vital Signs: Vital Signs: Last Vital Signs Temp 96.8 F 02/10/24 08:00 Pulse 76 02/10/24 08:00 Resp 15 02/10/24 08:00 BP 120/34 L 02/10/24 08:00 Pulse Ox 95 02/10/24 08:00 O2 Del Method Nasal Cannula 02/10/24 08:00 O2 Flow Rate 2 02/10/24 08:00 BMI result Body Mass Index 43.3 Const: General: cooperative, healthy appearing, comfortable, no acute distress, well developed, alert, awake and Physically active O rientation/consciousness: patient oriented x3 HEENT: Head: Yes normal to inspection, Yes normocephalic and Yes atraumatic Eyes: General: appearance normal, both eyes and all related structures Neck: Neck: Yes normal visual inspection, Yes full ROM, Yes no meningeal signs and Yes trachea midline Chest: Chest palpation & inspection: normal inspection of the chest Resp: Other: no appreciable rales, rhonchi, wheezing Effort & Inspection: normal respiratory effort Cardio: Rate: regular rate Rhythm: regular rhythm GI: Inspection: Yes normal to inspection, No Abdominal wall edema and No distended Palpation (GI): Soft to palpation, not firm, nontender, no guarding and not rigid Skin: General skin exam: no rashes or lesions noted Neuro: General: patient oriented x3, tone normal, moves all extremities, no meningeal signs and no focal motor deficits Extrem: Other: appreciable non-pitting edema bilateral lower extremities General: Yes normal to inspection, Yes full ROM and Yes capillary refill normal Psych: Appearance: grossly normal Objective Data Labs 02/10/24 05:30 02/10/24 05:30 Labs: Laboratory Results - last 24 hr 02/09/24 02/09/24 02/09/24 14:32 15:29 19:34 WBC 15.4 H RBC 6.01 H Hgb 17.8 H Hct 55.4 H MCV 92.2 MCH 29.6 MCHC 32.1 RDW 16.4 H Plt Count 142 L MPV 12.1 Immature Gran % (Auto) Cancelled Neut % (Auto) Cancelled Lymph % (Auto) Cancelled [place] % (Auto) Cancelled Eos % (Auto) Cancelled Baso % (Auto) Cancelled Lymph # (Auto) Cancelled [place] # (Auto) Cancelled Eos # (Auto) Cancelled Baso # (Auto) Cancelled Abs Immat Gran (auto) Cancelled Absolute Neuts (auto) Cancelled Absolute Nucleated RBC 0.000 Nucleated RBC % (auto) 0.0 Neutrophils % (Manual) 86 H Band Neutrophils % 10 H Lymphocytes % (Manual) 4 L Monocytes % (Manual) Abs Neuts (Manual) 14.8 H Lymphocytes # (Manual) 0.6 L Monocytes # (Manual) Toxic Vacuolation PRESENT Platelet Estimate NORMAL Plt Morphology Comment NORMAL RBC Morphology NOTED Priya Cells 1+ (0-2) Smear Tech's Comments PT INR APTT aPTT Heparin Protocol Sodium 140 Potassium 4.2 D Chloride 103 Carbon Dioxide 25 Anion Gap 16 BUN 28 H Creatinine 1.61 H Estim Creat Clear Calc 33.4 Estimated GFR 32 POC Glucose 199 H Random Glucose 210 H Lactic Acid 1.9 Calcium 9.8 D Phosphorus Magnesium Total Bilirubin 1.5 H Direct Bilirubin 0.6 H AST 22 ALT 17 Alkaline Phosphatase 141 H Troponin I High Sens 501.8 H* B-Natriuretic Peptide 731 H Total Protein 7.8 Albumin 4.2 Lipase 17 Urine Color Yellow Urine Appearance Cloudy Urine pH 7.0 Ur Specific [place] 1.020 Urine Protein 300 (3+) H Urine Glucose (UA) >=1000 H Urine Ketones Trace Urine Blood Large (3+) H Urine Nitrite Positive H Ur Leukocyte Esterase Trace H Urine RBC >20 H Urine WBC 21-50 H Ur Squamous Epith Cells 3-5 Urine Bacteria 4+ Hyaline Casts 0-2 Blood Type Antibody Screen 02/09/24 02/09/24 02/09/24 19:57 19:58 19:59 WBC 24.0 H RBC 5.61 H Hgb 16.8 H Hct 51.2 H MCV 91.3 MCH 29.9 MCHC 32.8 RDW 15.9 Plt Count 139 L MPV 12.0 Immature Gran % (Auto) Cancelled Neut % (Auto) Cancelled Lymph % (Auto) Cancelled [place] % (Auto) Cancelled Eos % (Auto) Cancelled Baso % (Auto) Cancelled Lymph # (Auto) Cancelled [place] # (Auto) Cancelled Eos # (Auto) Cancelled Baso # (Auto) Cancelled Abs Immat Gran (auto) Cancelled Absolute Neuts (auto) Cancelled Absolute Nucleated RBC 0.000 Nucleated RBC % (auto) 0.0 Neutrophils % (Manual) 82 H Band Neutrophils % 12 H Lymphocytes % (Manual) 5 L Monocytes % (Manual) 1 L Abs Neuts (Manual) 22.6 H Lymphocytes # (Manual) 1.2 Monocytes # (Manual) 0.2 Toxic Vacuolation PRESENT Platelet Estimate SLIGHTLY DECREASED Plt Morphology Comment NORMAL RBC Morphology NORMAL [place] Cells Smear Tech's Comments PT 19.0 H INR 1.6 H APTT 41.7 H aPTT Heparin Protocol Cancelled Sodium 137 Potassium 3.7 Chloride 106 Carbon Dioxide 21 L Anion Gap 14 BUN 29 H Creatinine 1.75 H Estim Creat Clear Calc 30.3 Estimated GFR 29 POC Glucose Random Glucose 199 H Lactic Acid 1.8 Calcium 9.3 Phosphorus 3.3 Magnesium 2.1 Total Bilirubin 1.0 Direct Bilirubin AST 21 ALT 15 Alkaline Phosphatase 110 Troponin I High Sens 455.2 H* B-Natriuretic Peptide Total Protein 6.7 Albumin 3.7 Lipase Urine Color Urine Appearance Urine pH Ur Specific [place] Urine Protein Urine Glucose (UA) Urine Ketones Urine Blood Urine Nitrite Ur Leukocyte Esterase Urine RBC Urine WBC Ur Squamous Epith Cells Urine Bacteria Hyaline Casts Blood Type Antibody Screen 02/09/24 02/10/24 02/10/24 20:51 00:54 05:30 WBC 29.4 H RBC 5.32 Hgb 15.7 Hct 49.4 H MCV 92.9 MCH 29.5 MCHC 31.8 RDW 16.1 H Plt Count 132 L MPV 12.9 H Immature Gran % (Auto) 1.5 H Neut % (Auto) 87.7 H Lymph % (Auto) 5.9 L [place] % (Auto) 4.2 Eos % (Auto) 0.1 Baso % (Auto) 0.6 Lymph # (Auto) 1.7 [place] # (Auto) 1.2 Eos # (Auto) 0.0 Baso # (Auto) 0.2 Abs Immat Gran (auto) 0.44 H Absolute Neuts (auto) 25.8 H Absolute Nucleated RBC 0.000 Nucleated RBC % (auto) 0.0 Neutrophils % (Manual) Band Neutrophils % Lymphocytes % (Manual) Monocytes % (Manual) Abs Neuts (Manual) Lymphocytes # (Manual) Monocytes # (Manual) Toxic Vacuolation Platelet Estimate Plt Morphology Comment RBC Morphology Priya Cells Smear Tech's Comments VERIFIED PT 16.4 H INR 1.4 H APTT aPTT Heparin Protocol Sodium 141 Potassium 4.0 Chloride 109 H Carbon Dioxide 22 Anion Gap 14 BUN 29 H Creatinine 1.85 H Estim Creat Clear Calc 28.9 Estimated GFR 27 POC Glucose 168 H Random Glucose 171 H Lactic Acid Calcium 8.4 D Phosphorus 4.3 Magnesium 2.1 Total Bilirubin Direct Bilirubin AST ALT Alkaline Phosphatase Troponin I High Sens B-Natriuretic Peptide Total Protein Albumin Lipase Urine Color Urine Appearance Urine pH Ur Specific [place] Urine Protein Urine Glucose (UA) Urine Ketones Urine Blood Urine Nitrite Ur Leukocyte Esterase Urine RBC Urine WBC Ur Squamous Epith Cells Urine Bacteria Hyaline Casts Blood Type O Positive Antibody Screen NEGATIVE 02/10/24 07:50 WBC RBC Hgb Hct MCV MCH MCHC RDW Plt Count MPV Immature Gran % (Auto) Neut % (Auto) Lymph % (Auto) [place] % (Auto) Eos % (Auto) Baso % (Auto) Lymph # (Auto) [place] # (Auto) Eos # (Auto) Baso # (Auto) Abs Immat Gran (auto) Absolute Neuts (auto) Absolute Nucleated RBC Nucleated RBC % (auto) Neutrophils % (Manual) Band Neutrophils % Lymphocytes % (Manual) Monocytes % (Manual) Abs Neuts (Manual) Lymphocytes # (Manual) Monocytes # (Manual) Toxic Vacuolation Platelet Estimate Plt Morphology Comment RBC Morphology [place] Cells Smear Tech's Comments PT INR APTT aPTT Heparin Protocol Sodium Potassium Chloride Carbon Dioxide Anion Gap BUN Creatinine Estim Creat Clear Calc Estimated GFR POC Glucose 177 H Random Glucose Lactic Acid Calcium Phosphorus Magnesium Total Bilirubin Direct Bilirubin AST ALT Alkaline Phosphatase Troponin I High Sens B-Natriuretic Peptide Total Protein Albumin Lipase Urine Color Urine Appearance Urine pH Ur Specific [place] Urine Protein Urine Glucose (UA) Urine Ketones Urine Blood Urine Nitrite Ur Leukocyte Esterase Urine RBC Urine WBC Ur Squamous Epith Cells Urine Bacteria Hyaline Casts Blood Type Antibody Screen Microbiology Microbiology Results: Microbiology 02/09/24 15:29 Blood - Venous Blood Culture - Preliminary Prelim: GNR Gram Stain only 02/09/24 15:29 Blood - Venous Blood Culture - Preliminary Prelim: GNR Gram Stain only Progress Note: A&P Assessment and plan (1) Pyelonephritis: Status: Acute (2) Septic shock: Status: Acute Plan Patient is a 65 Y F w/ hypertension, hyperlipidemia, diabetes mellitus, c/b coronary artery disease c/b heart failure s/p ICD, aortic stenosis, TAQUERIA, and prior PE c/b respiratory arrest on rivaroxaban, who presented initially to the emergency department on 02/08 w/ R flank pain, found to have obstructing urethral stone, c/b septic shock N: no acute issues CV: c/f septic shock, norepinephrine gtt, wean as tolerated; troponinemia, though appears at baseline; hypertension, hyperlipidemia, coronary artery disease c/b heart failure s/p ICD R: TAQUERIA on BiPAP; no acute issues GI: diabetic diet : obstructive R urethral stone c/b pyleonephritis c/b septic shock s/p urethral stent H: prior PE on apxiaban; chemical DVT prophylaxis, to advance to home rivaroxaban when appropriate; chronic thrombocytopenia, to monitor ID: urosepsis, empiric vancomycin, meropenem; BCxs demonstrating gram negative rods; to follow-up BCxs, UCxs E: diabetes mellitus, insulin regimen P: no acute issues Quality Stroke Does the patient have a stroke diagnosis?: No VTE Prior VTE?: Yes VTE Risk Level:: Medical - moderate - high VTE Device Contraindication: N/A - Device Ordered VTE Drug Contraindication: N/A - Med Ordered
[2024-02-10] MEDS: Heparin Sodium,Porcine 5,000 UNIT/ML VIAL 5000 UNIT SUBCUT ×3 (08:58→23:05)
[2024-02-10] MEDS: Acetaminophen 325 MG TABLET 975 MG PO ×2 (10:07→20:17)
[2024-02-10] MEDS: Norepinephrine Bitartrate/D5W 8 MG/250 ML PLAST..BAG 20.21 MG IVCONT (10:08)
--- NOTE | 2024-02-10 11:07 | MHC.CM.PN ---
Pt admitted to ICU - met w/pt to review d/c needs: pt just d/c'd from [facility] to home w/family-states she is independent and does not have DME or services. Discussed readmission and possible need for skilled RN visits to which she stated she would like to think about it HCP on file and verified: family to assist w/transportation. CM to follow for finalization of d/c needs.
[2024-02-10 11:22] LABS: Vancomycin Random 18.2 mcg/mL (15-20)
--- NOTE | 2024-02-10 11:32 | HE.PHANOTE ---
Addendum entered by Petrona Guadarrama RPh 02/10/24 11:34: next level 02/10 @1700 Original Note: RE: vanco Patient was given load of 2gm on 02/08 @1900; level was drawn randomly at 1038 on 02/09 and came back at 18.2 mg/L. Keeping dose at 750mg Q24H with predicted trough of 18.3 mg/L, AUC of 556 mg/L. Next level to be drawn 02/10 @1500
[2024-02-10 12:03] LABS: Glucose, Whole Blood 267 mg/dL (60-115)
[2024-02-10] MEDS: Meropenem 500 MG VIAL 750 MG IVPUSH ×2 (13:27→23:04)
[2024-02-10 13:30] LABS: Glucose, Whole Blood 269 mg/dL (60-115)
--- NOTE | 2024-02-10 13:45 | HO.POSTANES ---
Post Anesthesia Evaluation Post Anesthesia Evaluation Date of Service: 02/09/24 Vital Signs: Vital Signs Temp Pulse Resp BP Pulse Ox O2 Del Method O2 Flow Rate 02/10/24 13:32 74 124/40 L 02/10/24 12:59 75 14 123/37 L 97 Nasal Cannula 2 02/10/24 12:00 77 13 117/38 L 96 Nasal Cannula 2 02/10/24 11:30 77 16 02/10/24 11:00 79 13 115/40 L 95 Nasal Cannula 2 02/10/24 10:38 79 132/48 L 02/10/24 10:08 77 145/53 H 02/10/24 10:08 77 145/53 H 02/10/24 10:06 78 145/53 H 02/10/24 10:00 79 18 145/53 H 96 Nasal Cannula 2 02/10/24 09:22 79 98/31 L 02/10/24 09:00 80 17 103/52 L 95 Nasal Cannula 2 02/10/24 08:00 96.8 F 76 15 120/34 L 95 Nasal Cannula 2 02/10/24 06:57 81 15 122/38 L 94 Nasal Cannula 2 02/10/24 06:00 80 16 113/39 L 94 Nasal Cannula 2 02/10/24 05:26 88 19 02/10/24 05:00 88 17 129/49 L 93 Nasal Cannula 4 02/10/24 04:00 90 16 101/50 L 93 Nasal Cannula 4 02/10/24 03:10 90 98/37 L 02/10/24 03:00 82 16 98/37 L 93 Nasal Cannula 4 02/10/24 02:00 92 17 124/54 L 93 Nasal Cannula 4 Anesthesia: General Mental Status: Awake Pain Control: Satisfactory Nausea/Vomiting: None Hydration: Adequate Anesthesia-Related Issues: No Anes. Related Issues
[2024-02-10] MEDS: Morphine Sulfate 2 MG/ML CARTRIDGE IVPUSH (14:03)
--- NOTE | 2024-02-10 14:15 | HO.POSTANES ---
Post Anesthesia Evaluation Post Anesthesia Evaluation Date of Service: 02/09/24 Vital Signs: Vital Signs Temp Pulse Resp BP Pulse Ox O2 Del Method O2 Flow Rate 02/10/24 13:32 74 124/40 L 02/10/24 12:59 75 14 123/37 L 97 Nasal Cannula 2 02/10/24 12:00 77 13 117/38 L 96 Nasal Cannula 2 02/10/24 11:30 77 16 02/10/24 11:00 79 13 115/40 L 95 Nasal Cannula 2 02/10/24 10:38 79 132/48 L 02/10/24 10:08 77 145/53 H 02/10/24 10:08 77 145/53 H 02/10/24 10:06 78 145/53 H 02/10/24 10:00 79 18 145/53 H 96 Nasal Cannula 2 02/10/24 09:22 79 98/31 L 02/10/24 09:00 80 17 103/52 L 95 Nasal Cannula 2 02/10/24 08:00 96.8 F 76 15 120/34 L 95 Nasal Cannula 2 02/10/24 06:57 81 15 122/38 L 94 Nasal Cannula 2 02/10/24 06:00 80 16 113/39 L 94 Nasal Cannula 2 02/10/24 05:26 88 19 02/10/24 05:00 88 17 129/49 L 93 Nasal Cannula 4 02/10/24 04:00 90 16 101/50 L 93 Nasal Cannula 4 02/10/24 03:10 90 98/37 L 02/10/24 03:00 82 16 98/37 L 93 Nasal Cannula 4 Anesthesia: General Endotracheal-GETA Mental Status: Awake Pain Control: Satisfactory Nausea/Vomiting: None Hydration: Adequate Anesthesia-Related Issues: No Anes. Related Issues
[2024-02-10 16:27] LABS: Glucose, Whole Blood 176 mg/dL (60-115)
[2024-02-10] MEDS: vancomycin HCL 750 MG in 0.9 % Sodium Chloride 250 ML 265 MG IV (17:46)
[2024-02-10 21:10] LABS: Glucose, Whole Blood 154 mg/dL (60-115)
[2024-02-10] MEDS: Norepinephrine Bitartrate/D5W 8 MG/250 ML PLAST..BAG 12.86 MG IVCONT (23:15)
[2024-02-10 23:40] LABS: Glucose, Whole Blood 133 mg/dL (60-115)
[2024-02-11] VITALS (36 sets, daily range): BP systolic 65–152; BP diastolic 35–90; PULSE 73–110; RESP 12–22; TEMP 36.4–36.9; O2SAT 94–100; BMI 42.3
[2024-02-11] MEDS: Morphine Sulfate 2 MG/ML CARTRIDGE IVPUSH ×2 (05:09→21:18)
[2024-02-11 05:26] LABS: MANUAL DIFF FLAG NO
[2024-02-11 05:27] LABS: Basophils Absolute Auto 0.1 X10*3/uL (0.0-0.2); Basophils Percent Auto 0.4 % (0-2); Eosinophils Absolute Auto 0.1 X10*3/uL (0.0-0.4); Eosinophils Percent Auto 0.5 % (0-4); Hematocrit 44.3 % (37.0-47.0); Hemoglobin 14.3 g/dl (12.0-16.0); Imm Gran Abs Auto 0.18 X10*3/uL (0.00-0.03); Lymphocytes Absolute Auto 2.1 X10*3/uL (1.2-4.9); Lymphocytes Percent Auto 11.5 % (20-40); Mean Corpuscular HGB Conc 32.3 g/dl (31.0-35.0); Mean Corpuscular Hemoglobin 29.8 pg (27.0-33.0); Mean Corpuscular Volume 92.3 fL (80.0-98.0); Mean Platelet Volume 12.8 fL (9.4-12.3); Monocytes Absolute Auto 0.7 X10*3/uL (0.1-1.2); Monocytes Percent Auto 3.8 % (2-11); Neutrophils Absolute Auto 15.3 x10*3/uL (2.0-8.3); Neutrophils Percent Auto 82.8 % (45-73); Red Cell Distribution Width 16.3 % (11.0-16.0); White Blood Count 18.5 X10*3/uL (4.8-10.8)
[2024-02-11 05:40] LABS: Anion Gap 13 (12-20); Blood Urea Nitrogen 31 mg/dL (9-16); Calcium 8.6 mg/dL (8.4-10.2); Carbon Dioxide 23 mmol/L (22-29); Chloride 107 mmol/L (96-108); Creatinine Clr Calc Pharmacy 32.7; Estimated Glomerular Filt Rate 32; Glucose Random 130 mg/dL (60-115); Magnesium 2.1 mg/dL (1.6-2.6); Phosphorus 3.4 mg/dL (2.7-4.5); Potassium 3.8 mmol/L (3.3-5.1); Sodium 139 mmol/L (135-145)
[2024-02-11 05:56] LABS: Platelet Count 99 X10*3/uL (160-400)
--- NOTE | 2024-02-11 06:36 | PC.NURSE ---
CARE ASSUMED 7PM..ALERT..ORIENTED X3...O2 2 L/M CANNULA..NO DISTRESS...REFUSED NOCTURNAL CPAP/BIPAP...REMAINED ALERT..APPRPRIATE THIS AM....LEVOPHED WEANED FROM 0.09 TO 0.03 MCG/KG/MIN WITH STABLE BP....TYLENOL AND MORPHINE FOR C/O 10/04 CHRONIC BACK AND LEG PAIN WITH EFFECT...GARCIA YELLOW URINE..MONITOR V-PACED RHYTHM....6 BEAT AND 7 BEATH BROAD COMPLEX TACHYCARDIA NOTED...ICU GOLD RECLAIMER...AICD IN PLACE ..NO TREATMENT AT PRESENT PER GOLD RECLAIMER
[2024-02-11 07:30] LABS: Glucose, Whole Blood 129 mg/dL (60-115)
--- NOTE | 2024-02-11 07:54 | PM.CCPN ---
Subjective Subjective Date of Service: 02/11/24 Interval History: no significant overnight events Critical Care Time (minutes): 60 Physical Exam Vital Signs: Vital Signs: Last Vital Signs Temp 98.2 F 02/11/24 04:00 Pulse 84 02/11/24 07:00 Resp 18 02/11/24 07:00 BP 124/51 L 02/11/24 07:00 Pulse Ox 97 02/11/24 07:00 O2 Del Method Nasal Cannula 02/11/24 07:00 O2 Flow Rate 2 02/11/24 07:00 BMI result Body Mass Index 42.3 Const: General: cooperative, healthy appearing, comfortable, no acute distress, well developed, alert, awake and Physically active Orientation/consciousness: patient oriented x3 HEENT: Head: Yes normal to inspection, Yes normocephalic and Yes atraumatic Eyes: General: appearance normal, both eyes and all related structures Neck: Neck: Yes normal visual inspection, Yes full ROM, Yes no meningeal signs, Yes trachea midline and Yes supple Chest: Chest palpation & inspection: normal inspection of the chest Resp: Other: no appreciable rales, rhonchi, wheezing Effort & Inspection: normal respiratory effort GI: Inspection: Yes normal to inspection, No Abdominal wall edema and No distended Palpation (GI): Soft to palpation, not firm, nontender, no guarding and not rigid Skin: General skin exam: no rashes or lesions noted Neuro: General: patient oriented x3, tone normal, moves all extremities, no meningeal signs and no focal motor deficits Extrem: Other: appreciable 1+ pitting edema to bilateral shins General: Yes normal to inspection, Yes full ROM and Yes capillary refill normal Psych: Appearance: grossly normal Objective Data Labs 02/11/24 05:08 02/11/24 05:08 Labs: Laboratory Results - last 24 hr 02/10/24 02/10/24 02/10/24 07:50 10:38 11:48 WBC RBC Hgb Hct MCV MCH MCHC RDW Plt Count MPV Immature Gran % (Auto) Neut % (Auto) Lymph % (Auto) [place] % (Auto) Eos % (Auto) Baso % (Auto) Lymph # (Auto) [place] # (Auto) Eos # (Auto) Baso # (Auto) Abs Immat Gran (auto) Absolute Neuts (auto) Absolute Nucleated RBC Nucleated RBC % (auto) Sodium Potassium Chloride Carbon Dioxide Anion Gap BUN Creatinine Estim Creat Clear Calc Estimated GFR POC Glucose 177 H 267 H Random Glucose Calcium Phosphorus Magnesium Random Vancomycin 18.2 02/10/24 02/10/24 02/10/24 13:26 16:24 21:07 WBC RBC Hgb Hct MCV MCH MCHC RDW Plt Count MPV Immature Gran % (Auto) Neut % (Auto) Lymph % (Auto) [place] % (Auto) Eos % (Auto) Baso % (Auto) Lymph # (Auto) [place] # (Auto) Eos # (Auto) Baso # (Auto) Abs Immat Gran (auto) Absolute Neuts (auto) Absolute Nucleated RBC Nucleated RBC % (auto) Sodium Potassium Chloride Carbon Dioxide Anion Gap BUN Creatinine Estim Creat Clear Calc Estimated GFR POC Glucose 269 H 176 H 154 H Random Glucose Calcium Phosphorus Magnesium Random Vancomycin 02/10/24 02/11/24 02/11/24 23:34 05:08 07:27 WBC 18.5 H RBC 4.80 Hgb 14.3 Hct 44.3 MCV 92.3 MCH 29.8 MCHC 32.3 RDW 16.3 H Plt Count 99 L MPV 12.8 H Immature Gran % (Auto) 1.0 H Neut % (Auto) 82.8 H Lymph % (Auto) 11.5 L [place] % (Auto) 3.8 Eos % (Auto) 0.5 Baso % (Auto) 0.4 Lymph # (Auto) 2.1 [place] # (Auto) 0.7 Eos # (Auto) 0.1 Baso # (Auto) 0.1 Abs Immat Gran (auto) 0.18 H Absolute Neuts (auto) 15.3 H Absolute Nucleated RBC 0.000 Nucleated RBC % (auto) 0.0 Sodium 139 Potassium 3.8 Chloride 107 Carbon Dioxide 23 Anion Gap 13 BUN 31 H Creatinine 1.61 H Estim Creat Clear Calc 32.7 Estimated GFR 32 POC Glucose 133 H 129 H Random Glucose 130 H Calcium 8.6 Phosphorus 3.4 Magnesium 2.1 Random Vancomycin Microbiology Microbiology Results: Microbiology 02/09/24 22:15 Urine Other - Kidney Right Urine Culture - Preliminary Culture in progress. 02/09/24 Unknown Urine clean catch - Clean Catch Midstream Urine Culture - Preliminary Culture in progress. 02/09/24 15:29 Blood - Venous Blood Culture - Preliminary Prelim: GNR Gram Stain only 02/09/24 15:29 Blood - Venous Blood Culture - Preliminary Prelim: GNR Gram Stain only Progress Note: A&P Assessment and plan (1) Pyelonephritis: Status: Acute (2) Septic shock: Status: Acute Plan Patient is a 65 Y F w/ hypertension, hyperlipidemia, diabetes mellitus, c/b coronary artery disease c/b heart failure s/p ICD, aortic stenosis, TAQUERIA, and prior PE c/b respiratory arrest on rivaroxaban, who presented initially to the emergency department on 02/08 w/ R flank pain, found to have obstructing urethral stone, c/b septic shock N: no acute issues CV: c/f septic shock, norepinephrine gtt, wean as tolerated; troponinemia, though appears at baseline; hypertension, hyperlipidemia, coronary artery disease c/b heart failure s/p ICD R: TAQUERIA on BiPAP; no acute issues GI: diabetic diet : obstructive R urethral stone c/b pyleonephritis c/b septic shock s/p urethral stent 10/16 PM H:H: prior PE on apxiaban; chemical DVT prophylaxis, to advance to home rivaroxaban when appropriate; acute on chronic thrombocytopenia, to monitor ID: urosepsis, empiric vancomycin, meropenem; BCxs demonstrating gram negative rods; to follow-up BCxs, UCxs E: diabetes mellitus, insulin regimen P: no acute issues Quality Stroke Does the patient have a stroke diagnosis?: No VTE Prior VTE?: Yes VTE Risk Level:: Medical - moderate - high VTE Device Contraindication: N/A - Device Ordered VTE Drug Contraindication: N/A - Med Ordered
[2024-02-11] MEDS: Acetaminophen 325 MG TABLET 975 MG PO (08:09)
[2024-02-11] MEDS: Heparin Sodium,Porcine 5,000 UNIT/ML VIAL 5000 UNIT SUBCUT ×3 (08:10→21:14)
[2024-02-11] MEDS: Furosemide 20 MG/2 ML VIAL 10 MG IVPUSH (09:13)
[2024-02-11] MEDS: 0.9 % Sodium Chloride Flush 3 ML SYRINGE IVFLUSH ×3 (09:13→22:49)
[2024-02-11 11:09] LABS: Glucose, Whole Blood 220 mg/dL (60-115)
[2024-02-11] MEDS: Insulin Lispro 100 UNIT/ML 3 ML VIAL SUBCUT ×3 (11:16→21:13)
[2024-02-11] MEDS: Meropenem 500 MG VIAL 750 MG IVPUSH ×2 (11:16→22:48)
[2024-02-11] MEDS: Albuterol/Iprat 2.5/0.5MG 3 ML AMPUL.NEB INHALE ×2 (13:33→20:36)
[2024-02-11 16:22] LABS: Glucose, Whole Blood 178 mg/dL (60-115)
[2024-02-11 17:51] LABS: Vancomycin Trough 14.8 mcg/mL (10.0-20.0)
[2024-02-11] MEDS: vancomycin HCL 750 MG in 0.9 % Sodium Chloride 250 ML 265 MG IV (18:28)
--- NOTE | 2024-02-11 18:56 | HE.PHANOTE ---
VANCO DOSE ADJUSTMENT BASED ON LEVEL OF 14.8 DOSE CONTINUED 750 Q 24H. NEXT LEVEL 02/12 @ 1700
[2024-02-11 20:46] LABS: Glucose, Whole Blood 178 mg/dL (60-115)
[2024-02-11] MEDS: Atorvastatin Calcium 80 MG TABLET PO (21:15)
[2024-02-12] VITALS (38 sets, daily range): BP systolic 68–171; BP diastolic 40–87; PULSE 74–84; RESP 11–20; TEMP 36.3–36.9; O2SAT 92–100; BMI 41.3
[2024-02-12 05:02] LABS: MANUAL DIFF FLAG NO
[2024-02-12 05:04] LABS: Basophils Absolute Auto 0.1 X10*3/uL (0.0-0.2); Basophils Percent Auto 0.5 % (0-2); Eosinophils Absolute Auto 0.2 X10*3/uL (0.0-0.4); Eosinophils Percent Auto 1.4 % (0-4); Hematocrit 40.6 % (37.0-47.0); Imm Gran Abs Auto 0.11 X10*3/uL (0.00-0.03); Imm Gran Pct Auto 0.9 % (0.0-0.4); Lymphocytes Absolute Auto 2.5 X10*3/uL (1.2-4.9); Lymphocytes Percent Auto 20.7 % (20-40); Mean Corpuscular Hemoglobin 29.4 pg (27.0-33.0); Mean Corpuscular Volume 91.9 fL (80.0-98.0); Mean Platelet Volume 12.5 fL (9.4-12.3); Monocytes Absolute Auto 0.7 X10*3/uL (0.1-1.2); Monocytes Percent Auto 5.5 % (2-11); Neutrophils Absolute Auto 8.5 x10*3/uL (2.0-8.3); Red Blood Count 4.42 X10*6/uL (4.20-5.50); Red Cell Distribution Width 16.1 % (11.0-16.0)
[2024-02-12 05:06] LABS: Platelet Count 91 X10*3/uL (160-400)
[2024-02-12 05:33] LABS: Anion Gap 12 (12-20); Blood Urea Nitrogen 28 mg/dL (9-16); Calcium 8.6 mg/dL (8.4-10.2); Carbon Dioxide 24 mmol/L (22-29); Chloride 107 mmol/L (96-108); Creatinine Clr Calc Pharmacy 40.9; Estimated Glomerular Filt Rate 41; Glucose Random 101 mg/dL (60-115); Magnesium 2.1 mg/dL (1.6-2.6); Phosphorus 3.1 mg/dL (2.7-4.5); Sodium 139 mmol/L (135-145)
[2024-02-12] MEDS: Heparin Sodium,Porcine 5,000 UNIT/ML VIAL 5000 UNIT SUBCUT ×3 (06:19→21:31)
[2024-02-12 07:19] LABS: Glucose, Whole Blood 94 mg/dL (60-115)
[2024-02-12] MEDS: 0.9 % Sodium Chloride Flush 3 ML SYRINGE IVFLUSH ×3 (07:55→21:32)
[2024-02-12] MEDS: polyethylene glycoL 3350 17 GM POWD.PACK PO (07:56)
--- NOTE | 2024-02-12 08:02 | P.PNCC_ITS ---
Subjective Subjective Date of Service: 02/12/24 Interval History: no significant overnight events Critical Care Time (minutes): 0 Physical Exam 2 Vital Signs: Vital Signs: Last Vital Signs Temp 97.6 F 02/12/24 07:00 Pulse 77 02/12/24 07:00 Resp 16 02/12/24 07:00 BP 117/47 L 02/12/24 07:00 Pulse Ox 94 02/12/24 07:00 O2 Del Method Room Air 02/12/24 07:00 O2 Flow Rate 2 02/11/24 22:00 FiO2 30 02/12/24 00:00 BMI result Body Mass Index 41.3 Const: General: cooperative, healthy appearing, comfortable, no acute distress, well developed, alert, awake and Physically active O rientation/consciousness: patient oriented x3 HEENT: Head: Yes normal to inspection, Yes normocephalic and Yes atraumatic Eyes: General: appearance normal, both eyes and all related structures Neck: Neck: Yes normal visual inspection, Yes full ROM, Yes no meningeal signs, Yes trachea midline and Yes supple Chest: Chest palpation & inspection: normal inspection of the chest Resp: Other: no appreciable rales, rhonchi, wheezing Effort & Inspection: normal respiratory effort Cardio: Rate: regular rate Rhythm: regular rhythm GI: Inspection: Yes normal to inspection, No Abdominal wall edema and No distended Palpation (GI): Soft to palpation, not firm, nontender, no guarding and not rigid Skin: General skin exam: no rashes or lesions noted Neuro: General: patient oriented x3, tone normal, moves all extremities, no meningeal signs and no focal motor deficits Extrem: Other: appreciable 2+ pitting edema to bilateral shins General: Yes normal to inspection, Yes full ROM and Yes capillary refill normal Psych: Appearance: grossly normal Objective Data Labs 02/12/24 04:37 02/12/24 04:37 Labs: Laboratory Results - last 24 hr 02/11/24 02/11/24 02/11/24 11:04 16:18 17:07 WBC RBC Hgb Hct MCV MCH MCHC RDW Plt Count MPV Immature Gran % (Auto) Neut % (Auto) Lymph % (Auto) [place] % (Auto) Eos % (Auto) Baso % (Auto) Lymph # (Auto) [place] # (Auto) Eos # (Auto) Baso # (Auto) Abs Immat Gran (auto) Absolute Neuts (auto) Absolute Nucleated RBC Nucleated RBC % (auto) Sodium Potassium Chloride Carbon Dioxide Anion Gap BUN Creatinine Estim Creat Clear Calc Estimated GFR POC Glucose 220 H 178 H Random Glucose Calcium Phosphorus Magnesium Vancomycin Trough 14.8 02/11/24 02/12/24 02/12/24 20:43 04:37 07:16 WBC 12.0 H RBC 4.42 Hgb 13.0 Hct 40.6 MCV 91.9 MCH 29.4 MCHC 32.0 RDW 16.1 H Plt Count 91 L MPV 12.5 H Immature Gran % (Auto) 0.9 H Neut % (Auto) 71.0 Lymph % (Auto) 20.7 [place] % (Auto) 5.5 Eos % (Auto) 1.4 Baso % (Auto) 0.5 Lymph # (Auto) 2.5 [place] # (Auto) 0.7 Eos # (Auto) 0.2 Baso # (Auto) 0.1 Abs Immat Gran (auto) 0.11 H Absolute Neuts (auto) 8.5 H Absolute Nucleated RBC 0.000 Nucleated RBC % (auto) 0.0 Sodium 139 Potassium 4.0 Chloride 107 Carbon Dioxide 24 Anion Gap 12 BUN 28 H Creatinine 1.29 Estim Creat Clear Calc 40.9 Estimated GFR 41 POC Glucose 178 H 94 Random Glucose 101 Calcium 8.6 Phosphorus 3.1 Magnesium 2.1 Vancomycin Trough Microbiology Microbiology Results: Microbiology 02/09/24 22:15 Urine Other - Kidney Right Urine Culture - Final Proteus mirabilis 02/09/24 Unknown Urine clean catch - Clean Catch Midstream Urine Culture - Final Escherichia coli Corynebacterium species 02/09/24 15:29 Blood - Venous Blood Culture - Preliminary Gram negative jefferson 02/09/24 15:29 Blood - Venous Blood Culture - Preliminary Gram negative jefferson Progress Note: A&P Assessment and plan (1) Pyelonephritis: Status: Acute (2) Septic shock: Status: Acute Plan Patient is a 65 Y F w/ hypertension, hyperlipidemia, diabetes mellitus, c/b coronary artery disease c/b heart failure s/p ICD, aortic stenosis, TAQUERIA, and prior PE c/b respiratory arrest on rivaroxaban, who presented initially to the emergency department on 02/08 w/ R flank pain, found to have obstructing urethral stone, c/b septic shock N: no acute issues CV: c/f septic shock, resolved; troponinemia, though appears at baseline; hypertension, hyperlipidemia, coronary artery disease c/b heart failure s/p ICD R: TAQUERIA on BiPAP; no acute issues GI: diabetic diet : obstructive R urethral stone c/b pyleonephritis c/b septic shock s/p urethral stent 10/16 PM H: prior PE on apxiaban; chemical DVT prophylaxis, to advance to home rivaroxaban when appropriate; acute on chronic thrombocytopenia, to monitor ID: urosepsis, empiric vancomycin, meropenem; BCxs demonstrating gram negative rods; UCxs demonstrating proteus, corynebacterium E: diabetes mellitus, insulin regimen P: no acute issues Quality Stroke Does the patient have a stroke diagnosis?: No VTE Prior VTE?: Yes VTE Risk Level:: Medical - moderate - high VTE Device Contraindication: N/A - Device Ordered VTE Drug Contraindication: N/A - Med Ordered
[2024-02-12] MEDS: Albuterol/Iprat 2.5/0.5MG 3 ML AMPUL.NEB INHALE ×2 (08:09→14:55)
[2024-02-12] MEDS: Meropenem 500 MG VIAL 750 MG IVPUSH ×2 (10:34→22:40)
[2024-02-12] MEDS: Furosemide 40 MG TABLET PO (10:34)
[2024-02-12 11:44] LABS: Glucose, Whole Blood 149 mg/dL (60-115)
[2024-02-12] MEDS: Norepinephrine Bitartrate/D5W 8 MG/250 ML PLAST..BAG 9.19 MG IVCONT (12:42)
[2024-02-12] MEDS: Norepinephrine Bitartrate/D5W 8 MG/250 ML PLAST..BAG 8.69 MG IVCONT (12:45)
--- NOTE | 2024-02-12 14:09 | MHC.CM.PN ---
Pt continues care in ICU: no changes to d/c plan anticipated at this time: CM to follow for finalization of plans: home w/family support
[2024-02-12 16:07] LABS: Glucose, Whole Blood 175 mg/dL (60-115)
[2024-02-12] MEDS: Insulin Lispro 100 UNIT/ML 3 ML VIAL SUBCUT ×2 (17:24→19:58)
[2024-02-12] MEDS: vancomycin HCL 750 MG in 0.9 % Sodium Chloride 250 ML 265 MG IV (18:28)
[2024-02-12 19:55] LABS: Glucose, Whole Blood 215 mg/dL (60-115)
[2024-02-12] MEDS: Atorvastatin Calcium 80 MG TABLET PO (19:59)
[2024-02-12] MEDS: Morphine Sulfate 2 MG/ML CARTRIDGE IVPUSH (20:00)
[2024-02-13] VITALS (18 sets, daily range): BP systolic 114–161; BP diastolic 52–91; PULSE 77–105; RESP 15–20; TEMP 36–36.4; O2SAT 93–100; BMI 41.3
[2024-02-13] MEDS: Heparin Sodium,Porcine 5,000 UNIT/ML VIAL 5000 UNIT SUBCUT ×3 (05:29→20:47)
[2024-02-13 05:34] LABS: MANUAL DIFF FLAG NO
[2024-02-13 05:36] LABS: Basophils Absolute Auto 0.1 X10*3/uL (0.0-0.2); Basophils Percent Auto 0.7 % (0-2); Eosinophils Absolute Auto 0.2 X10*3/uL (0.0-0.4); Eosinophils Percent Auto 2.8 % (0-4); Hematocrit 41.1 % (37.0-47.0); Hemoglobin 13.2 g/dl (12.0-16.0); Imm Gran Abs Auto 0.03 X10*3/uL (0.00-0.03); Imm Gran Pct Auto 0.4 % (0.0-0.4); Lymphocytes Percent Auto 26.9 % (20-40); Mean Corpuscular HGB Conc 32.1 g/dl (31.0-35.0); Mean Corpuscular Hemoglobin 29.5 pg (27.0-33.0); Mean Corpuscular Volume 91.7 fL (80.0-98.0); Mean Platelet Volume 12.9 fL (9.4-12.3); Monocytes Absolute Auto 0.6 X10*3/uL (0.1-1.2); Monocytes Percent Auto 8.3 % (2-11); Neutrophils Absolute Auto 4.6 x10*3/uL (2.0-8.3); Neutrophils Percent Auto 60.9 % (45-73); Red Blood Count 4.48 X10*6/uL (4.20-5.50); White Blood Count 7.6 X10*3/uL (4.8-10.8)
[2024-02-13 05:37] LABS: Platelet Count 94 X10*3/uL (160-400)
[2024-02-13 05:50] LABS: Anion Gap 12 (12-20); Blood Urea Nitrogen 28 mg/dL (9-16); Calcium 8.6 mg/dL (8.4-10.2); Carbon Dioxide 25 mmol/L (22-29); Chloride 107 mmol/L (96-108); Creatinine Clr Calc Pharmacy 46.1; Estimated Glomerular Filt Rate 48; Glucose Random 117 mg/dL (60-115); Magnesium 2.3 mg/dL (1.6-2.6); Phosphorus 3.2 mg/dL (2.7-4.5); Sodium 140 mmol/L (135-145)
[2024-02-13 07:40] LABS: Glucose, Whole Blood 110 mg/dL (60-115)
--- NOTE | 2024-02-13 07:57 | P.PNCC_ITS ---
Subjective Subjective Date of Service: 02/13/24 Interval History: no significant overnight events Critical Care Time (minutes): 0 Physical Exam 2 Vital Signs: Vital Signs: Last Vital Signs Temp 97.4 F 02/13/24 04:00 Pulse 80 02/13/24 07:00 Resp 20 02/13/24 07:00 BP 115/59 L 02/13/24 07:00 Pulse Ox 94 02/13/24 07:00 O2 Del Method Room Air 02/13/24 07:00 O2 Flow Rate 2 02/11/24 22:00 FiO2 30 02/12/24 00:00 BMI result Body Mass Index 41.3 Const: General: cooperative, healthy appearing, comfortable, no acute distress, well developed, alert, awake and Physically active O rientation/consciousness: patient oriented x3 HEENT: Head: Yes normal to inspection, Yes normocephalic and Yes atraumatic Eyes: General: appearance normal, both eyes and all related structures Neck: Neck: Yes normal visual inspection, Yes full ROM, Yes no meningeal signs, Yes trachea midline and Yes supple Chest: Chest palpation & inspection: normal inspection of the chest Resp: Other: no appreciable rales, rhonchi, wheezing Effort & Inspection: normal respiratory effort Cardio: Rate: regular rate Rhythm: regular rhythm GI: Inspection: Yes normal to inspection, No Abdominal wall edema and No distended Palpation (GI): Soft to palpation, not firm, nontender, no guarding and not rigid Skin: General skin exam: no rashes or lesions noted Neuro: General: patient oriented x3, tone normal, moves all extremities, no meningeal signs and no focal motor deficits Extrem: Other: 1+ pitting edema to bilateral shins General: Yes normal to inspection, Yes full ROM and Yes capillary refill normal Psych: Appearance: grossly normal Objective Data Labs 02/13/24 05:25 02/13/24 05:25 Labs: Laboratory Results - last 24 hr 02/12/24 02/12/24 02/12/24 11:41 16:03 19:50 WBC RBC Hgb Hct MCV MCH MCHC RDW Plt Count MPV Immature Gran % (Auto) Neut % (Auto) Lymph % (Auto) [place] % (Auto) Eos % (Auto) Baso % (Auto) Lymph # (Auto) [place] # (Auto) Eos # (Auto) Baso # (Auto) Abs Immat Gran (auto) Absolute Neuts (auto) Absolute Nucleated RBC Nucleated RBC % (auto) Sodium Potassium Chloride Carbon Dioxide Anion Gap BUN Creatinine Estim Creat Clear Calc Estimated GFR POC Glucose 149 H 175 H 215 H Random Glucose Calcium Phosphorus Magnesium 02/13/24 02/13/24 05:25 07:23 WBC 7.6 RBC 4.48 Hgb 13.2 Hct 41.1 MCV 91.7 MCH 29.5 MCHC 32.1 RDW 16.0 Plt Count 94 L MPV 12.9 H Immature Gran % (Auto) 0.4 Neut % (Auto) 60.9 Lymph % (Auto) 26.9 [place] % (Auto) 8.3 Eos % (Auto) 2.8 Baso % (Auto) 0.7 Lymph # (Auto) 2.0 [place] # (Auto) 0.6 Eos # (Auto) 0.2 Baso # (Auto) 0.1 Abs Immat Gran (auto) 0.03 Absolute Neuts (auto) 4.6 Absolute Nucleated RBC 0.000 Nucleated RBC % (auto) 0.0 Sodium 140 Potassium 4.0 Chloride 107 Carbon Dioxide 25 Anion Gap 12 BUN 28 H Creatinine 1.13 Estim Creat Clear Calc 46.1 Estimated GFR 48 POC Glucose 110 Random Glucose 117 H Calcium 8.6 Phosphorus 3.2 Magnesium 2.3 Microbiology Microbiology Results: Microbiology 02/09/24 15:29 Blood - Venous Blood Culture - Final Proteus mirabilis 02/09/24 15:29 Blood - Venous Blood Culture - Final Proteus mirabilis 02/09/24 22:15 Urine Other - Kidney Right Urine Culture - Final Proteus mirabilis 02/09/24 Unknown Urine clean catch - Clean Catch Midstream Urine Culture - Final Escherichia coli Corynebacterium species Progress Note: A&P Assessment and plan (1) Pyelonephritis: Status: Acute (2) Septic shock: Status: Acute Plan Patient is a 65 Y F w/ hypertension, hyperlipidemia, diabetes mellitus, c/b coronary artery disease c/b heart failure s/p ICD, aortic stenosis, TAQUERIA, and prior PE c/b respiratory arrest on rivaroxaban, who presented initially to the emergency department on 02/08 w/ R flank pain, found to have obstructing urethral stone, c/b septic shock N: no acute issues CV: c/f septic shock, resolved; troponinemia, though appears at baseline; hypertension, hyperlipidemia, coronary artery disease c/b heart failure s/p ICD R: TAQUERIA on BiPAP; no acute issues GI: diabetic diet : obstructive R urethral stone c/b pyleonephritis c/b septic shock s/p urethral stent 10/16 PM H: prior PE on apxiaban; chemical DVT prophylaxis, to advance to home rivaroxaban when appropriate; acute on chronic thrombocytopenia, to monitor ID: urosepsis, empiric vancomycin, meropenem; BCxs demonstrating proteus; UCxs demonstrating proteus, corynebacterium E: diabetes mellitus, insulin regimen P: no acute issues Quality Stroke Does the patient have a stroke diagnosis?: No VTE Prior VTE?: Yes VTE Risk Level:: Medical - moderate - high VTE Device Contraindication: N/A - Device Ordered VTE Drug Contraindication: N/A - Med Ordered
[2024-02-13] MEDS: Albuterol/Iprat 2.5/0.5MG 3 ML AMPUL.NEB INHALE ×3 (08:11→19:37)
[2024-02-13] MEDS: Furosemide 40 MG TABLET PO (08:58)
[2024-02-13] MEDS: Meropenem 500 MG VIAL 750 MG IVPUSH ×2 (11:10→22:45)
[2024-02-13 11:51] LABS: Glucose, Whole Blood 155 mg/dL (60-115)
[2024-02-13] MEDS: Insulin Lispro 100 UNIT/ML 3 ML VIAL SUBCUT ×2 (12:16→21:12)
[2024-02-13 16:11] LABS: Glucose, Whole Blood 135 mg/dL (60-115)
[2024-02-13 18:12] LABS: Vancomycin Random 15.1 mcg/mL (15-20)
[2024-02-13] MEDS: vancomycin HCL 750 MG in 0.9 % Sodium Chloride 250 ML 250 MG IV (18:29)
[2024-02-13] MEDS: Atorvastatin Calcium 80 MG TABLET PO (20:47)
[2024-02-13] MEDS: 0.9 % Sodium Chloride Flush 3 ML SYRINGE IVFLUSH (20:48)
[2024-02-13 20:51] LABS: Glucose, Whole Blood 222 mg/dL (60-115)
[2024-02-14] VITALS (7 sets, daily range): BP systolic 123–186; BP diastolic 57–85; PULSE 64–81; RESP 14–20; TEMP 36.2–36.6; O2SAT 93–100
[2024-02-14] MEDS: Heparin Sodium,Porcine 5,000 UNIT/ML VIAL 5000 UNIT SUBCUT ×3 (05:50→20:26)
[2024-02-14 06:19] LABS: Basophils Absolute Auto 0.1 X10*3/uL (0.0-0.2); Basophils Percent Auto 0.9 % (0-2); Eosinophils Absolute Auto 0.2 X10*3/uL (0.0-0.4); Eosinophils Percent Auto 2.9 % (0-4); Hematocrit 43.8 % (37.0-47.0); Hemoglobin 14.3 g/dl (12.0-16.0); Imm Gran Abs Auto 0.02 X10*3/uL (0.00-0.03); Imm Gran Pct Auto 0.3 % (0.0-0.4); Lymphocytes Absolute Auto 2.4 X10*3/uL (1.2-4.9); Lymphocytes Percent Auto 36.3 % (20-40); MANUAL DIFF FLAG SCAN; Mean Corpuscular HGB Conc 32.6 g/dl (31.0-35.0); Mean Corpuscular Hemoglobin 29.7 pg (27.0-33.0); Mean Corpuscular Volume 90.9 fL (80.0-98.0); Mean Platelet Volume 11.8 fL (9.4-12.3); Monocytes Absolute Auto 0.6 X10*3/uL (0.1-1.2); Monocytes Percent Auto 9.7 % (2-11); Neutrophils Absolute Auto 3.2 x10*3/uL (2.0-8.3); Neutrophils Percent Auto 49.9 % (45-73); Platelet Count 100 X10*3/uL (160-400); Red Blood Count 4.82 X10*6/uL (4.20-5.50); Red Cell Distribution Width 15.6 % (11.0-16.0); SCAN SMEAR FLAG 1; White Blood Count 6.5 X10*3/uL (4.8-10.8)
[2024-02-14 06:36] LABS: Anion Gap 12 (12-20); Blood Urea Nitrogen 27 mg/dL (9-16); Calcium 9.1 mg/dL (8.4-10.2); Carbon Dioxide 25 mmol/L (22-29); Chloride 107 mmol/L (96-108); Creatinine Clr Calc Pharmacy 47.7; Estimated Glomerular Filt Rate 50; Glucose Random 128 mg/dL (60-115); Magnesium 2.1 mg/dL (1.6-2.6); Phosphorus 3.9 mg/dL (2.7-4.5); Potassium 3.9 mmol/L (3.3-5.1); Sodium 140 mmol/L (135-145)
[2024-02-14 07:00] LABS: SLIDE REVIEW VERIFIED
[2024-02-14] MEDS: Albuterol/Iprat 2.5/0.5MG 3 ML AMPUL.NEB INHALE ×2 (07:53→13:51)
[2024-02-14 07:58] LABS: Glucose, Whole Blood 130 mg/dL (60-115)
[2024-02-14] MEDS: Furosemide 40 MG TABLET PO (09:15)
[2024-02-14] MEDS: 0.9 % Sodium Chloride Flush 3 ML SYRINGE IVFLUSH ×3 (09:17→20:27)
[2024-02-14] MEDS: Meropenem 500 MG VIAL 750 MG IVPUSH (09:27)
--- NOTE | 2024-02-14 11:29 | P.PNIM_ITS ---
Subjective Subjective Date of Service: 02/14/24 Interval History: No acute issues overnight. Remains afebrile Review of Systems Denies chest pain Denies shortness of breath Denies nausea vomiting diarrhea Denies fever chills Physical Exam 2 Vital Signs: Vital Signs: Last Vital Signs Temp 97.4 F 02/14/24 11:20 Pulse 76 02/14/24 11:20 Resp 20 02/14/24 11:20 BP 134/70 02/14/24 11:20 Pulse Ox 97 02/14/24 11:20 O2 Del Method Room Air 02/14/24 11:20 O2 Flow Rate 2 02/11/24 22:00 FiO2 30 02/12/24 00:00 BMI result Body Mass Index 41.3 Const: Other: Awake alert no acute distress Resp: Other: Clear to auscultation bilaterally no rales rhonchi or wheezes Cardio: Other: No S4; positive S1-S2; no S3 murmurs rubs or gallops GI: Other: Soft nontender nondistended normoactive bowel sounds Extrem: Other: No edema bilaterally Objective Data Active Medications Acetaminophen (Acetaminophen 325 Mg Tablet) 975 mg PO Q6H PRN PRN Reason: Pain, Moderate(Pain Scale 4-6) Last Admin: 02/11/24 08:09 Dose: 975 mg Documented By: PER Albuterol/Ipratropium (Albuterol/Iprat 2.5/0.5mg 3 Ml Ampul.Neb) 3 ml INHALE RQ6H WHILE AWAKE [facility] Last Admin: 02/14/24 07:53 Dose: 3 ml Documented By: VALENCIA Atorvastatin Calcium (Atorvastatin Calcium 80 Mg Tablet) 80 mg PO BEDTIME [facility] Last Admin: 02/13/24 20:47 Dose: 80 mg Documented By: KATLIN Furosemide (Furosemide 40 Mg Tablet) 40 mg PO DAILY [place]; Protocol Last Admin: 02/14/24 09:15 Dose: 40 mg Documented By: MCKINLEY-SOLELA Glucose (Glucose Gel 15 Gm Gel..Gram.) 15 gm PO Q15M PRN; Protocol PRN Reason: per Hypoglycemia Standing Ord. Heparin Sodium (Porcine) (Heparin Sodium,Porcine 5,000 Unit/Ml Vial) 5,000 unit SUBCUT Q8H [facility] Last Admin: 02/14/24 05:50 Dose: 5,000 unit Documented By: KATLIN Dextrose (D10) 250 mls @ 750 mls/hr IV Q15M PRN; Protocol PRN Reason: per Hypoglycemia Standing Ord. Vancomycin HCl 750 mg/ Sodium (Chloride) 265 mls @ 265 mls/hr IV Q24H [facility] Last Infusion: 02/13/24 19:33 Dose: Infused Documented By: KATLIN Insulin Human Lispro (Insulin Lispro 100 Unit/Ml 3 Ml Vial) 0 unit SUBCUT QIDACHS [facility]; Protocol Last Admin: 02/14/24 08:31 Dose: Not Given Documented By: MARIUSZ Non-Admin Reason: No Insulin Coverage Meropenem (Meropenem 500 Mg Vial) 750 mg IVPUSH Q12H [facility] Last Admin: 02/14/24 09:27 Dose: 750 mg Documented By: MARIUSZ Morphine Sulfate (Morphine Sulfate 2 Mg/Ml Cartridge) 2 mg IVPUSH Q4H PRN; Protocol PRN Reason: Pain, Moderate(Pain Scale 4-6) Last Admin: 02/12/24 20:00 Dose: 2 mg Documented By: GEM Pharmacy Consult (Consult Rx Vancomycin Dosing) 1 each MISCELLANE DAILY PRN PRN Reason: Consult order Sodium Chloride (0.9 % Sodium Chloride Flush 3 Ml Syringe) 3 ml IVFLUSH [facility] Last Admin: 02/14/24 09:17 Dose: 3 ml Documented By: MARIUSZ Labs 02/14/24 05:45 02/14/24 05:45 Labs: Laboratory Results - last 24 hr 02/13/24 02/13/24 02/13/24 11:46 16:07 17:04 MCV MCH MCHC RDW Plt Count MPV Immature Gran % (Auto) Neut % (Auto) Lymph % (Auto) [place] % (Auto) Eos % (Auto) Baso % (Auto) Lymph # (Auto) [place] # (Auto) Eos # (Auto) Baso # (Auto) Abs Immat Gran (auto) Absolute Neuts (auto) Absolute Nucleated RBC Nucleated RBC % (auto) Smear Tech's Comments Anion Gap Estim Creat Clear Calc Estimated GFR POC Glucose 155 H 135 H Random Glucose Calcium Phosphorus Magnesium Random Vancomycin 15.1 10/19/24 10/20/24 10/20/24 20:37 05:45 07:54 MCV 90.9 MCH 29.7 MCHC 32.6 RDW 15.6 Plt Count 100 L MPV 11.8 Immature Gran % (Auto) 0.3 Neut % (Auto) 49.9 Lymph % (Auto) 36.3 [place] % (Auto) 9.7 Eos % (Auto) 2.9 Baso % (Auto) 0.9 Lymph # (Auto) 2.4 [place] # (Auto) 0.6 Eos # (Auto) 0.2 Baso # (Auto) 0.1 Abs Immat Gran (auto) 0.02 Absolute Neuts (auto) 3.2 Absolute Nucleated RBC 0.000 Nucleated RBC % (auto) 0.0 Smear Tech's Comments VERIFIED Anion Gap 12 Estim Creat Clear Calc 47.7 Estimated GFR 50 POC Glucose 222 H 130 H Random Glucose 128 H Calcium 9.1 Phosphorus 3.9 Magnesium 2.1 Random Vancomycin Assessment and Plan (1) Septic shock: Status: Acute (2) Acute UTI: Status: Acute Plan Patient is a 65 Y F w/ hypertension, hyperlipidemia, diabetes mellitus, c/b coronary artery disease c/b heart failure s/p ICD, aortic stenosis, TAQUERIA, and prior PE c/b respiratory arrest on rivaroxaban, who presented initially to the emergency department on 02/08 w/ R flank pain, found to have obstructing urethral stone, presented in septic shock requiring pressors. 1. Severe sepsis secondary to UTI (sepsis resolved) -blood cultures demonstrating Proteus sensitive to ceftriaxone(1) -urine culture with E coli sensitive to ceftriaxone as well -we will DC vancomycin meropenem 2. Chronic PE -continue Xarelto as ordered 3. CAD -stable and well compensated -continue current therapies 4. Type 2 diabetes requiring insulin -acceptable control on current therapies -lispro correctional scale -adjust as indicated 5. Chronic systolic heart failure -stable at this point -continue outpatient therapies Full code Xarelto Patient will require ongoing hospitalization for IV antibiotics to treat Proteus bacteremia pending repeat cultures Quality Stroke Does the patient have a stroke diagnosis?: No VTE Prior VTE?: Yes VTE Risk Level:: Medical - moderate - high VTE Device Contraindication: N/A - Device Ordered VTE Drug Contraindication: N/A - Med Ordered
[2024-02-14 11:41] LABS: Glucose, Whole Blood 151 mg/dL (60-115)
[2024-02-14] MEDS: Insulin Lispro 100 UNIT/ML 3 ML VIAL SUBCUT ×3 (11:57→20:26)
[2024-02-14] MEDS: Acetaminophen 325 MG TABLET 975 MG PO (13:11)
[2024-02-14 16:39] LABS: Glucose, Whole Blood 154 mg/dL (60-115)
[2024-02-14 19:54] LABS: Glucose, Whole Blood 176 mg/dL (60-115)
--- NOTE | 2024-02-14 20:09 | PC.RT ---
Pt refusing CPAP tonight 02/14/24
[2024-02-14] MEDS: Atorvastatin Calcium 80 MG TABLET PO (20:26)
[2024-02-15] VITALS: BP 156/70; PULSE 83; RESP 21; TEMP 35.9; O2SAT 91
[2024-02-15 03:37] VITALS: BP 169/78; PULSE 80; RESP 18; TEMP 36.4; O2SAT 91
[2024-02-15] MEDS: Heparin Sodium,Porcine 5,000 UNIT/ML VIAL 5000 UNIT SUBCUT (06:17)
[2024-02-15 06:27] LABS: Basophils Absolute Auto 0.1 X10*3/uL (0.0-0.2); Basophils Percent Auto 0.7 % (0-2); Eosinophils Absolute Auto 0.2 X10*3/uL (0.0-0.4); Eosinophils Percent Auto 2.9 % (0-4); Hematocrit 41.2 % (37.0-47.0); Hemoglobin 13.7 g/dl (12.0-16.0); Imm Gran Abs Auto 0.05 X10*3/uL (0.00-0.03); Imm Gran Pct Auto 0.7 % (0.0-0.4); Lymphocytes Absolute Auto 2.7 X10*3/uL (1.2-4.9); MANUAL DIFF FLAG SCAN; Mean Corpuscular HGB Conc 33.3 g/dl (31.0-35.0); Mean Corpuscular Hemoglobin 29.7 pg (27.0-33.0); Mean Corpuscular Volume 89.4 fL (80.0-98.0); Mean Platelet Volume 12.1 fL (9.4-12.3); Monocytes Absolute Auto 0.7 X10*3/uL (0.1-1.2); Neutrophils Absolute Auto 3.6 x10*3/uL (2.0-8.3); Neutrophils Percent Auto 49.7 % (45-73); Platelet Count 115 X10*3/uL (160-400); Red Blood Count 4.61 X10*6/uL (4.20-5.50); Red Cell Distribution Width 15.5 % (11.0-16.0); SCAN SMEAR FLAG 1; White Blood Count 7.2 X10*3/uL (4.8-10.8)
[2024-02-15 06:40] LABS: Anion Gap 13 (12-20); Blood Urea Nitrogen 24 mg/dL (9-16); Calcium 9.3 mg/dL (8.4-10.2); Carbon Dioxide 26 mmol/L (22-29); Chloride 106 mmol/L (96-108); Estimated Glomerular Filt Rate 55; Glucose Random 139 mg/dL (60-115); Phosphorus 3.4 mg/dL (2.7-4.5); Potassium 3.8 mmol/L (3.3-5.1); Sodium 141 mmol/L (135-145)
[2024-02-15 07:09] LABS: SLIDE REVIEW VERIFIED
[2024-02-15 07:27] VITALS: PULSE 75; RESP 18; O2SAT 96
[2024-02-15] MEDS: Albuterol/Iprat 2.5/0.5MG 3 ML AMPUL.NEB INHALE (07:27)
[2024-02-15 07:31] LABS: Glucose, Whole Blood 137 mg/dL (60-115)
[2024-02-15 07:36] VITALS: BP 167/67; PULSE 76; RESP 20; TEMP 36.1; O2SAT 94
[2024-02-15] MEDS: Furosemide 40 MG TABLET PO (08:36)
[2024-02-15] MEDS: 0.9 % Sodium Chloride Flush 3 ML SYRINGE IVFLUSH (08:36)
--- NOTE | 2024-02-15 11:11 | MHC.CM.PN ---
Per MD in [facility], Patient may be medically cleared for dc today, pending cultures. CM will follow.
[2024-02-15 11:38] LABS: Glucose, Whole Blood 169 mg/dL (60-115)
--- NOTE | 2024-02-15 11:46 | PM.DS ---
DS: Providers Provider Date of Service: 02/15/24 Date of admission: 02/09/24 18:54 Date of discharge: 02/15/24 Primary care physician: Carmina Martins MD Consults: 02/09/24 18:59 Consult to Urology Stat Consulting Provider: [facility] Reason for consultation: Urosepsis, Obstructive Stone Has provider been notified: Yes DS: Diagnosis Discharge Diagnosis (1) Septic shock: Status: Acute (2) Acute UTI: Status: Acute DS: Summary Hospital Course Hospital Course: 69 y/o F patient; PMH HFrEF with biventricular ICD (EF 30 - 65%); restrictive lung disease, hx PE on Xarelto, hx respiratory arrest, T2DM, HTN, morbid obesity, TAQUERIA on CPAP, CAD s/p CABG (2014); presents from home reporting sudden onset right-sided flank pain associated with rigors. She states it has been 2 - 3 days since her last bowel movement. She tried to take her son's medication (laxative) without bowel movement. She denies: nausea/vomiting, chest pain, SOB, cough/congestion, fevers. She states she can urinate without difficulty, no dysuria or hematuria. Patient became hypotensive in emergency room requiring pressures. Seen in consultation by Urology; the evening of admission underwent right-sided ureteral stenting and transferred to ICU. Hospital Course Remained hemodynamically stable on pressors in ICU. Slowly weaned over the course of the next several days remaining hemodynamically stable off pressors. Respiratory status was stable using BiPAP at as per outpatient therapies. Urine and blood cultures ultimately grew out Proteus sensitive to ceftriaxone. At this point repeat cultures have been negative and she is medically acceptable to discharge on a 14 day course of oral Ceftin. She will follow up with her PCP next available Time Attestation Discharge Coordination Time (in mins): 35 Quality: Safe Use of Opioids Does Pt have an Active Cancer Diagnosis on the Problem List?: No Quality: Stroke Does the patient have a stroke diagnosis?: No Physical Exam Vital Signs: Vital Signs: Last Vital Signs Temp 97.0 F 02/15/24 07:36 Pulse 76 02/15/24 07:36 Resp 20 02/15/24 07:36 BP 167/67 H 02/15/24 07:36 Pulse Ox 94 02/15/24 07:36 O2 Del Method Room Air 02/15/24 07:36 O2 Flow Rate 2 02/11/24 22:00 FiO2 30 02/12/24 00:00 BMI result Body Mass Index 41.3 Const: Other: Awake alert no acute distress Resp: Other: Clear to auscultation bilaterally no rales rhonchi or wheezes Cardio: Other: No S4; positive S1-S2; no S3 murmurs rubs or gallops GI: Other: Soft nontender nondistended normoactive bowel sounds Extrem: Other: No edema bilaterally DS: Data Data Completed and Pending Completed studies during hospitalization [Text1]: Procedures Assistance with Respiratory Ventilation, Less than 24 Consecutive Hours, Continuous Positive Airway Pressure (08/14/23) Labs on day of discharge: Laboratory Results - last 24 hr 02/14/24 02/14/24 02/15/24 16:23 18:44 05:58 WBC 7.2 RBC 4.61 Hgb 13.7 Hct 41.2 MCV 89.4 MCH 29.7 MCHC 33.3 RDW 15.5 Plt Count 115 L MPV 12.1 Immature Gran % (Auto) 0.7 H Neut % (Auto) 49.7 Lymph % (Auto) 37.0 [place] % (Auto) 9.0 Eos % (Auto) 2.9 Baso % (Auto) 0.7 Lymph # (Auto) 2.7 [place] # (Auto) 0.7 Eos # (Auto) 0.2 Baso # (Auto) 0.1 Abs Immat Gran (auto) 0.05 H Absolute Neuts (auto) 3.6 Absolute Nucleated RBC 0.000 Nucleated RBC % (auto) 0.0 Smear Tech's Comments VERIFIED Sodium 141 Potassium 3.8 Chloride 106 Carbon Dioxide 26 Anion Gap 13 BUN 24 H Creatinine 1.00 Estim Creat Clear Calc 52.0 Estimated GFR 55 POC Glucose 154 H 176 H Random Glucose 139 H Calcium 9.3 Phosphorus 3.4 Magnesium 2.0 02/15/24 02/15/24 07:27 11:34 WBC RBC Hgb Hct MCV MCH MCHC RDW Plt Count MPV Immature Gran % (Auto) Neut % (Auto) Lymph % (Auto) [place] % (Auto) Eos % (Auto) Baso % (Auto) Lymph # (Auto) [place] # (Auto) Eos # (Auto) Baso # (Auto) Abs Immat Gran (auto) Absolute Neuts (auto) Absolute Nucleated RBC Nucleated RBC % (auto) Smear Tech's Comments Sodium Potassium Chloride Carbon Dioxide Anion Gap BUN Creatinine Estim Creat Clear Calc Estimated GFR POC Glucose 137 H 169 H Random Glucose Calcium Phosphorus Magnesium Discharge Plan Discharge Anticipated Discharge Date/Time: 02/15/24 11:37 Patient Disposition: Home, Self-Care Discharge Diagnosis: Acute UTI with severe sepsis Referrals: Carmina Varela MD [Primary Care Provider] - 1 Week Discharge Medications: New cefuroxime axetil 500 mg tablet 500 mg PO BID 14 Days Qty: 28 0RF Continued citalopram 20 mg tablet 20 mg PO DAILY Xarelto 20 mg tablet 20 mg PO DAILY@1700 ZzzQuil 50 mg/30 mL Liquid 50 mg PO BEDTIME PRN (Reason: Sleep) insulin glargine [Lantus Solostar U-100 Insulin] 100 unit/mL (3 mL) insulin pen 28 unit subcut BEDTIME furosemide 40 mg Tablet 40 mg PO DAILY carvedilol 25 mg Tablet 25 mg PO BID Rx Instructions: must administer with a meal/food Jardiance 25 mg Tablet 25 mg PO DAILY Entresto 97-103 mg Tablet 1 tab PO BID insulin aspart U-100 100 unit/mL (3 mL) insulin pen 1 sliding scale dose subcut TIDAC atorvastatin 80 mg tablet 80 mg PO BEDTIME Discharge Orders: Discharge Order (Routine); Ordered 02/15/24 Ordered By: Harry Skinner Diet: Advance to usual diet Activity on Discharge: As tolerated Stand Alone Forms: Patient Portal Discharge page Print Language: Maltese Care Plan Goals: Resume all medication as taken prior to hospitalization Health Concerns: Ceftin 500 mg twice a day has been added to your regimen. He will take this for 2 weeks Plan of Treatment: Follow up with PCP next available Assessment: See discharge summary
[2024-02-15 11:47] VITALS: BP 188/77; PULSE 86; RESP 20; TEMP 36.5; O2SAT 97
--- NOTE | 2024-02-15 12:08 | MHC.CM.PN ---
Patient has been medically cleared for dc to home today, self care. CM met with Patient at bedside and addressed IMM with her(original was given to Patient and a copy has been placed on the chart). Patient will transport home today at 2PM, via [facility].
== END 2024-02-15 14:23 | disposition home or self-care (01) | DRG 853 ==
LOC: HO.ED 19:17 → HO.EDOVER 19:39 → HO.ICU 19:47 → HO.IMC 02-13 08:18
PROVIDERS: Nurse Practitioner Family; Urology; Admitting Provider Internal Medicine Critical Care Medicine; Emergency Provider Emergency Medicine; PCP Internal Medicine; Visit Provider Hospitalist
PROC: 0T768DZ Dilation of Right Ureter with Intraluminal Device, Via Natural or Artificial Opening Endoscopic (ICD-10-PCS; principal; 2024-02-09 20:00)
DX: A41.9 Sepsis, unspecified organism (principal); R65.21 Severe sepsis with septic shock; N13.6 Pyonephrosis; I50.22 Chronic systolic (congestive) heart failure; Z68.41 Body mass index [BMI] 40.0-44.9, adult; I11.0 Hypertensive heart disease with heart failure; E66.01 Morbid (severe) obesity due to excess calories; I25.10 Atherosclerotic heart disease of native coronary artery without angina pectoris; D69.6 Thrombocytopenia, unspecified; R79.89 Other specified abnormal findings of blood chemistry; Z23 Encounter for immunization; E11.9 Type 2 diabetes mellitus without complications; Z95.1 Presence of aortocoronary bypass graft; Z86.711 Personal history of pulmonary embolism; Z95.810 Presence of automatic (implantable) cardiac defibrillator; Z79.01 Long term (current) use of anticoagulants; Z79.4 Long term (current) use of insulin; Z79.899 Other long term (current) drug therapy
CPT/HCPCS: 36415; 71045; 71250; 74176; 74177; 80048; 80053; 80076; 80202; 81001; 82947; 83605; 83690; 83735; 83880; 84100; 84484; 85007; 85025; 85027; 85610; 85730; 86850; 86900; 86901; 87040; 87077; 87086; 87088; 87186; 87205; 90656; 93005; 94640; 94660; 99285; C1758; C1769; C2617; J0131; J0696; J1644; J1940; J2003; J2185; J2250; J2270; J2371; J2405; J2704; J3010; J3370; Q9967

== ENCOUNTER → 2024-02-09 14:12 | Outpatient (BNV) | payer OTHER, SELFPAY ==
[2021-10-15 11:10] VITALS: BP 110/70; BMI 46.0
== END ==
PROVIDERS: Admitting Provider Internal Medicine Critical Care Medicine; Emergency Provider Emergency Medicine; PCP Internal Medicine; Visit Provider Internal Medicine
DX: R94.31 Abnormal electrocardiogram [ECG] [EKG] (principal)
CPT/HCPCS: 93010

== ENCOUNTER → 2024-02-09 18:54 | Outpatient (BNV) | payer OTHER, SELFPAY ==
[2021-10-15 11:10] VITALS: BP 110/70; BMI 46.0
== END ==
PROVIDERS: Admitting Provider Internal Medicine Critical Care Medicine; Emergency Provider Emergency Medicine; PCP Internal Medicine; Visit Provider Urology
DX: N12 Tubulo-interstitial nephritis, not specified as acute or chronic (principal); A41.9 Sepsis, unspecified organism; R65.21 Severe sepsis with septic shock; N28.89 Other specified disorders of kidney and ureter; N20.1 Calculus of ureter
CPT/HCPCS: 52332; 74420; 99222

== ENCOUNTER → 2024-02-09 18:54 | Outpatient (BNV) | payer OTHER, SELFPAY ==
[2021-10-15 11:10] VITALS: BP 110/70; BMI 46.0
== END ==
PROVIDERS: Admitting Provider Internal Medicine Critical Care Medicine; Emergency Provider Emergency Medicine; PCP Internal Medicine; Visit Provider Nurse Practitioner Family
DX: A41.9 Sepsis, unspecified organism (principal); R65.21 Severe sepsis with septic shock; N12 Tubulo-interstitial nephritis, not specified as acute or chronic
CPT/HCPCS: 36556; 99223; 99232; 99233; 99291

== ENCOUNTER → 2024-02-09 18:54 | Outpatient (BNV) | payer OTHER, SELFPAY ==
[2021-10-15 11:10] VITALS: BP 110/70; BMI 46.0
== END ==
PROVIDERS: Admitting Provider Internal Medicine Critical Care Medicine; Emergency Provider Emergency Medicine; PCP Internal Medicine; Visit Provider Hospitalist
DX: A41.9 Sepsis, unspecified organism (principal); R65.21 Severe sepsis with septic shock; N39.0 Urinary tract infection, site not specified
CPT/HCPCS: 99233; 99239

== ENCOUNTER 2024-03-29 01:30 | Inpatient (IN) | payer OTHER, SELFPAY ==
[2021-10-15 11:10] VITALS: BP 110/70; BMI 46.0
[2024-03-29] VITALS (24 sets, daily range): BP systolic 97–174; BP diastolic 37–130; PULSE 83–120; RESP 16–26; TEMP 36.3–36.9; O2SAT 81–99; BMI 47.5
--- NOTE | ~2024-03-29 | XR_ITS ---
EXAMINATION: XR CHEST CLINICAL INFORMATION: sob, copd COMPARISON: February 09, 2024 TECHNIQUE: Frontal view of the chest was obtained. FINDINGS: The cardiomediastinal silhouette is stable. Pacer leads are again seen in place. There has been a previous median sternotomy. There is mild diffuse increased interstitial markings grossly similar to previous. There is no focal lung consolidation or pleural effusions. The bony structures and the soft tissues are unremarkable. XR/XR chest 1V IMPRESSION: Mild diffuse increased interstitial markings grossly similar to previous study. No focal consolidation or pleural effusions. Electronically signed by: Wiliam Warren MD 03/29/2024 04:05 AM [facility]
--- NOTE | 2024-03-29 01:36 | ECG_ITS ---
Test Reason : DYSPNEA Blood Pressure : / mmHG Vent. Rate : 104 BPM Atrial Rate : 118 BPM P-R Int : 000 ms QRS Dur : 144 ms QT Int : 384 ms P-R-T Axes : 058 228 060 degrees QTc Int : 504 ms Ventricular-paced rhythm with intrinsic complexes Biventricular pacemaker detected Abnormal ECG When compared with ECG of 09-FEB-2024 19:02, Vent. rate has increased BY 26 BPM Referred By: Tamra Marley Electronically Signed By:Jaycob Reza
--- NOTE | 2024-03-29 01:43 | ED_ITS ---
HPI - General Adult General Chief complaint: Dyspnea Stated complaint: SOB Source: patient and EMS Mode of arrival: EMS Limitations: other History of Present Illness ED Provider: Dr. Tamra Marley HPI narrative: Patient comes to the emergency room complaining of shortness of breath. According to EMS, patient has history of COPD and asthma overlap. Patient is not oxygen dependent. They report that the patient's oxygen saturation was below 80% on room air. Patient was started on a nebulization treatment. No other medications given. Patient denies any chest pain but complaining of significant shortness of breath. Patient states that she has been sick for a few days now. Nebulization treatments did not work. Related Data Home Medications ?Medication ?Instructions ?Recorded ?Confirmed atorvastatin 80 mg tablet 80 mg PO BEDTIME 02/27/20 02/09/24 insulin aspart U-100 100 unit/mL 1 sliding scale dose subcut TIDAC 06/26/20 02/09/24 (3 mL) subcutaneous pen citalopram 20 mg tablet 20 mg PO DAILY 07/21/20 02/09/24 rivaroxaban 20 mg tablet (Xarelto) 20 mg PO DAILY@1700 08/14/23 02/09/24 diphenhydramine HCl 50 mg/30 mL 50 mg PO BEDTIME PRN Sleep 08/15/23 02/09/24 oral liquid (ZzzQuil) insulin glargine 100 unit/mL (3 28 unit subcut BEDTIME 02/04/24 02/09/24 mL) subcutaneous pen (Lantus Solostar U-100 Insulin) carvedilol 25 mg tablet 25 mg PO BID 02/09/24 02/09/24 empagliflozin 25 mg tablet 25 mg PO DAILY 02/09/24 02/09/24 (Jardiance) furosemide 40 mg tablet 40 mg PO DAILY 02/09/24 02/09/24 sacubitril 97 mg-valsartan 103 mg 1 tab PO BID 02/09/24 02/09/24 tablet (Entresto) Previous Rx's ?Medication ?Instructions ?Recorded cefuroxime axetil 500 mg tablet 500 mg PO BID 14 days #28 tabs 02/15/24 Allergies Allergy/AdvReac Type Severity Reaction Status Date / Time No Known Allergies Allergy Verified 03/29/24 01:43 Review of Systems 2 Review of Systems: Constitutional : No Weight loss, No Fever, No Chills, No Night Sweats, No Fatigue, No Malaise ENT/Mouth : No Hearing loss, No Ear Pain, No Nasal Congestion, No Sinus Pain, No Hoarseness, No sore throat, No Rhinorrhea, No Swallowing Difficulty Eyes: No Eye Pain, No Swelling, No Redness, No Foreign Body, No Discharge, No Vision Changes Cardiovascular : No Chest Pain, No SOB, No Dyspnea on Exertion, No Orthopnea, No Edema, No Palpitations Respiratory : complaining of cough, sputum production, wheezing and shortness of breath Gastrointestinal : No Nausea, No Vomiting, No Diarrhea, No Constipation, No abdominal Pain, No Hematochezia, No Melena Genitourinary : no irregular bleeding, No Dysuria, No Urinary Frequency, No Hematuria, No Urinary Incontinence, No Urgency, No Flank Pain, No Urinary Flow Changes, No Hesitancy Musculoskeletal : No joint pain, No Myalgias, No Joint Swelling Skin : No Skin Lesions, No rash Neuro : No Weakness, No Numbness, No Paresthesias, No Loss of Consciousness, No Dizziness, No Headache Psych : No Anxiety/Panic, No Depression, No SI/HI/AH/VH, No Social Issues, Heme/Lymph: No Bruising, No Bleeding,No Lymphadenopathy Endocrine : No Polyuria, No Polydipsia, No Temperature Intolerance PMFSH Past Medical History Medical History CHF (congestive heart failure) Sleep apnea Presence of CardioMEMS HF system Hx of myocardial infarction Anxiety and depression Osteoarthritis Fatty liver Restrictive lung disease TAQUERIA treated with BiPAP Morbid obesity Biventricular ICD (implantable cardioverter-defibrillator) in place CAD (coronary artery disease) Non-rheumatic aortic stenosis Atherosclerotic cardiovascular disease Acute on chronic systolic and diastolic heart failure, NYHA class 3 Leukocytosis Dyspnea Transaminitis Hypoxia Congestive heart failure TAQUERIA (obstructive sleep apnea) NSVT (nonsustained ventricular tachycardia) Cardiomyopathy Chronic systolic heart failure Diabetes mellitus HLD (hyperlipidemia) HTN (hypertension) Surgical History History of incision and drainage Status post coronary artery bypass graft Stented coronary artery Hx of CABG History of cardiac cath Hx of cardiac cath Hx of cardiac cath Hx of appendectomy History of cholecystectomy Family History Family History Father No problems noted. Mother No problems noted. Social History Social History Household Members: Family Household Members Other:: son and daughter in law Housing: Apartment Are you a primary patient care assistant to a significant other at home: No Do you presently have visiting nurse or other home services: No Alcohol intake: never Comment: chronic back pain Patient Tobacco Use Status: Current everyday Tobacco user Tobacco use type: Cigarette Cigarette Packs Per Day: 1 Years Smoked: 30 Smoked in Last 30 Days: Yes e-Cigarette/Vaping Use: Never Used Second Hand Smoke Exposure: No Use of substances other than those prescribed or required for medical reasons: No Advance Directives: Yes Advance Directives on File: Yes Advance Directives Date on File: 11/07/22 Do you have a plan to hurt others: No Plan service: No Current occupational status: unemployed and disabled Current occupation: rt hand Physical Exam ED Vital Signs: Vital Signs - 24 hr 03/29/24 01:33 03/29/24 01:51 03/29/24 02:00 Temperature 97.5 F Pulse Rate 101 H 98 Respiratory Rate 22 H 22 H 22 H Blood Pressure 169/62 H Pulse Oximetry 96 Oxygen Delivery Method CPAP Oxygen Flow Rate 03/29/24 02:16 03/29/24 02:24 03/29/24 02:44 Temperature 97.4 F 97.5 F Pulse Rate 101 H 103 H Respiratory Rate 23 H 22 H 20 Blood Pressure 133/55 L 114/47 L Pulse Oximetry 97 98 Oxygen Delivery Method CPAP CPAP Oxygen Flow Rate 03/29/24 03:33 03/29/24 04:00 03/29/24 04:44 Temperature Pulse Rate 96 91 Respiratory Rate 20 22 H 20 Blood Pressure 106/41 L 108/58 L Pulse Oximetry 98 98 Oxygen Delivery Method CPAP CPAP Oxygen Flow Rate 03/29/24 05:07 03/29/24 05:30 03/29/24 05:59 Temperature Pulse Rate 89 90 93 Respiratory Rate 17 21 H 16 Blood Pressure 97/37 L 102/39 L 105/51 L Pulse Oximetry 95 97 97 Oxygen Delivery Method Nasal Cannula Nasal Cannula Room Air Oxygen Flow Rate 2 2 03/29/24 06:06 Temperature Pulse Rate Respiratory Rate Blood Pressure 105/51 L Pulse Oximetry Oxygen Delivery Method Oxygen Flow Rate BMI result Body Mass Index 47.5 Const Other: Appearance: Alert. oriented, answering questions, looks very uncomfortable, short of breath Eyes: Pupils equal, round and reactive to light. ENT: Pharynx normal. Neck: Normal inspection. Neck supple. No lymph nodes noted. No crepitus CVS: Normal heart rate and rhythm. Pulses normal. Normal S1 and S2 Respiratory: patient wheezing bilaterally, minimal air movement Abdomen: Soft and nontender. No rigidity. No distention. Skin: Skin warm and dry. Normal skin color. Normal skin turgor. Extremities: No lower extremity edema. No Lacerations. No Rash Neuro: CN 2 through 12 grossly intact Psych: calm, cooperative, normal affect Medications Administered Discontinued Medications Generic Name Dose Route Start Last Admin Trade Name Freq PRN Reason Stop Dose Admin Ceftriaxone Sodium 1 gm 03/29/24 01:40 03/29/24 02:13 Ceftriaxone Sodium 1 Gm Vial IVPUSH 03/29/24 01:41 1 gm ONCE ONE Administration Albuterol Sulfate 5 mg/ 0 mg 03/29/24 01:55 03/29/24 02:27 Albuterol/Ipratropium 3 ml INHALE 03/29/24 01:56 1 each ONCE ONE Administration Furosemide 10 mg 03/29/24 05:57 03/29/24 06:06 Furosemide 20 Mg/2 Ml Vial IVPUSH 03/29/24 05:58 10 mg ONCE ONE Administration Protocol Sodium Chloride 140 mls @ 999 mls/hr 03/29/24 01:40 03/29/24 02:36 Ns IVCONT 03/29/24 01:48 Infused .Q9M ONE Infusion Azithromycin 500 mg/ Sodium 250 mls @ 125 mls/hr 03/29/24 01:40 03/29/24 04:06 Chloride IV 03/29/24 03:39 Infused ONCE ONE Infusion Magnesium Sulfate 2 gm in 50 mls @ 25 mls/hr 03/29/24 01:40 03/29/24 03:40 Magnesium Sulfate/H2o IV 03/29/24 03:39 Infused ONCE ONE Infusion Albumin Human 50 mls @ 100 mls/hr 03/29/24 04:04 03/29/24 04:47 Kedbumin 25 % IV 03/29/24 04:33 Infused ONCE ONE Infusion Methylprednisolone Sodium Succinate 125 mg 03/29/24 01:40 03/29/24 02:14 Methylprednisolone Sod Succ 125 Mg/2 Ml Vial IVPUSH 03/29/24 01:41 125 mg ONCE ONE Administration Medical Decision Making Medical Decision Making [facility] Narrative: on arrival, patient was noted to be in significant respiratory distress. Oxygen saturation 86% on oxygen While receiving DuoNeb. - Patient was put on BiPAP. - I reviewed patient's medical chart, patient has history of CHF with an ejection fraction of 30-35% - empirically, patient was given a bolus of 140 mL, IV ceftriaxone and azithromycin. - All of patient's labs pending - sepsis alert was called at 02:00 At 04:00, focus exam was completed - patient was couple of hours on BiPAP. Patient's blood gases significantly improved. Patient now off BiPAP, on 2 L of oxygen, saturating 94%, breathing comfortably. x-rays do not show any focal consolidations, mild diffuse interstitial markings grossly similar - to previous study. Patient was treated for COPD and CHF exacerbation. - discussed the patient with Dr. Olvera , patient being admitted - patient uses CPAP at home for sleeping - patient's vitals stable, blood pressure 105/51, heart rate 93, respirations 16, temperature 97.5 degrees, oxygen saturation 97% on 2 L I attempted to add the fluid Exemption form for CHF exacerbation. However, the system is not allowing me to do so. I discussed the patient with Dr. Sawyer, patient being admitted to the medicine team Differential Diagnosis Differential Diagnoses: The differential diagnosis associated with the presentation includes ( asthma exacerbation, COPD exacerbation, CHF, pneumonia) Admission/Observation Consideration of admission/observation: Escalation of care including admission/observation considered Consult Healthcare Provider Management of the patient was discussed with: Hospitalist Lab Data [facility] Lab Attestation statement: I reviewed the patient's lab results. 03/29/24 02:03 03/29/24 02:03 Labs: Lab Results 03/29/24 03/29/24 03/29/24 Range/Units 02:03 02:05 02:06 WBC 13.1 H (4.8-10.8) X10*3/uL RBC 5.68 H D (4.20-5.50) X10*6/uL Hgb 16.4 H (12.0-16.0) g/dl Hct 51.9 H D (37.0-47.0) % MCV 91.4 (80.0-98.0) fL MCH 28.9 (27.0-33.0) pg MCHC 31.6 (31.0-35.0) g/dl RDW 15.9 (11.0-16.0) % Plt Count 181 D (160-400) X10*3/uL MPV 11.6 (9.4-12.3) fL Immature Gran % (Auto) 0.5 H (0.0-0.4) % Neut % (Auto) 62.3 (45-73) % Lymph % (Auto) 31.8 (20-40) % Throckmorton % (Auto) 3.1 (2-11) % Eos % (Auto) 1.7 (0-4) % Baso % (Auto) 0.6 (0-2) % Lymph # (Auto) 4.2 (1.2-4.9) X10*3/uL Throckmorton # (Auto) 0.4 (0.1-1.2) X10*3/uL Eos # (Auto) 0.2 (0.0-0.4) X10*3/uL Baso # (Auto) 0.1 (0.0-0.2) X10*3/uL Abs Immat Gran (auto) 0.07 H (0.00-0.03) X10*3/uL Absolute Neuts (auto) 8.2 (2.0-8.3) x10*3/uL Absolute Nucleated RBC 0.000 (0.0-0.012) X10*3/uL Nucleated RBC % (auto) 0.0 (0.0-0.2) /100WBC PT 10.3 L D (10.9-12.4) SEC INR 0.9 (0.9-1.1) VBG pH (7.32-7.43) VBG pCO2 mmHg VBG pO2 mmHg VBG HCO3 (22-26) mmol/L VBG O2 Saturation % VBG Base Excess mmol/L Sodium 140 (135-145) mmol/L Potassium 3.4 (3.3-5.1) mmol/L Chloride 107 (96-108) mmol/L Carbon Dioxide 17 L (22-29) mmol/L Anion Gap 19 (12-20) BUN 19 H (9-16) mg/dL Creatinine 1.31 (0.5-1.4) mg/dL Estim Creat Clear Calc 41.5 Estimated GFR 40 Random Glucose 288 H (60-115) mg/dL Lactic Acid 3.8 H* (0.5-2.0) mmol/L Lactic Acid F/U @ 2Hr (0.5-2.0) mmol/L Calcium 10.1 D (8.4-10.2) mg/dL Magnesium 2.4 (1.6-2.6) mg/dL Total Bilirubin 0.8 (0.0-1.0) mg/dL Direct Bilirubin 0.5 (0.0-0.5) mg/dL AST 45 H (5-31) U/L ALT 26 (0-31) U/L Alkaline Phosphatase 174 H (39-117) U/L Troponin I High Sens 478.5 H* (<3.5-17.0) ng/L B-Natriuretic Peptide 1801 H (<100) pg/mL Total Protein 8.6 H (6.5-8.0) g/dL Albumin 4.3 (3.5-5.0) g/dL Influenza Type A (PCR) (Negative) Influenza Type B (PCR) (Negative) RSV RNA Qual (PCR) (Negative) SARS-CoV-2 RNA (RT-PCR) (Negative) 03/29/24 03/29/24 03/29/24 Range/Units 02:12 02:19 04:31 WBC (4.8-10.8) X10*3/uL RBC (4.20-5.50) X10*6/uL Hgb (12.0-16.0) g/dl Hct (37.0-47.0) % MCV (80.0-98.0) fL MCH (27.0-33.0) pg MCHC (31.0-35.0) g/dl RDW (11.0-16.0) % Plt Count (160-400) X10*3/uL MPV (9.4-12.3) fL Immature Gran % (Auto) (0.0-0.4) % Neut % (Auto) (45-73) % Lymph % (Auto) (20-40) % Throckmorton % (Auto) (2-11) % Eos % (Auto) (0-4) % Baso % (Auto) (0-2) % Lymph # (Auto) (1.2-4.9) X10*3/uL Throckmorton # (Auto) (0.1-1.2) X10*3/uL Eos # (Auto) (0.0-0.4) X10*3/uL Baso # (Auto) (0.0-0.2) X10*3/uL Abs Immat Gran (auto) (0.00-0.03) X10*3/uL Absolute Neuts (auto) (2.0-8.3) x10*3/uL Absolute Nucleated RBC (0.0-0.012) X10*3/uL Nucleated RBC % (auto) (0.0-0.2) /100WBC PT (10.9-12.4) SEC INR (0.9-1.1) VBG pH 7.19 L* (7.32-7.43) VBG pCO2 79 mmHg VBG pO2 55 mmHg VBG HCO3 30 H (22-26) mmol/L VBG O2 Saturation 79.0 % VBG Base Excess -0.6 mmol/L Sodium (135-145) mmol/L Potassium (3.3-5.1) mmol/L Chloride (96-108) mmol/L Carbon Dioxide (22-29) mmol/L Anion Gap (12-20) BUN (9-16) mg/dL Creatinine (0.5-1.4) mg/dL Estim Creat Clear Calc Estimated GFR Random Glucose (60-115) mg/dL Lactic Acid (0.5-2.0) mmol/L Lactic Acid F/U @ 2Hr 2.4 H* (0.5-2.0) mmol/L Calcium (8.4-10.2) mg/dL Magnesium (1.6-2.6) mg/dL Total Bilirubin (0.0-1.0) mg/dL Direct Bilirubin (0.0-0.5) mg/dL AST (5-31) U/L ALT (0-31) U/L Alkaline Phosphatase (39-117) U/L Troponin I High Sens (<3.5-17.0) ng/L B-Natriuretic Peptide (<100) pg/mL Total Protein (6.5-8.0) g/dL Albumin (3.5-5.0) g/dL Influenza Type A (PCR) NEGATIVE (Negative) Influenza Type B (PCR) NEGATIVE (Negative) RSV RNA Qual (PCR) NEGATIVE (Negative) SARS-CoV-2 RNA (RT-PCR) NEGATIVE (Negative) 03/29/24 Range/Units 06:07 WBC (4.8-10.8) X10*3/uL RBC (4.20-5.50) X10*6/uL Hgb (12.0-16.0) g/dl Hct (37.0-47.0) % MCV (80.0-98.0) fL MCH (27.0-33.0) pg MCHC (31.0-35.0) g/dl RDW (11.0-16.0) % Plt Count (160-400) X10*3/uL MPV (9.4-12.3) fL Immature Gran % (Auto) (0.0-0.4) % Neut % (Auto) (45-73) % Lymph % (Auto) (20-40) % Throckmorton % (Auto) (2-11) % Eos % (Auto) (0-4) % Baso % (Auto) (0-2) % Lymph # (Auto) (1.2-4.9) X10*3/uL Th[place]morton # (Auto) (0.1-1.2) X10*3/uL Eos # (Auto) (0.0-0.4) X10*3/uL Baso # (Auto) (0.0-0.2) X10*3/uL Abs Immat Gran (auto) (0.00-0.03) X10*3/uL Absolute Neuts (auto) (2.0-8.3) x10*3/uL Absolute Nucleated RBC (0.0-0.012) X10*3/uL Nucleated RBC % (auto) (0.0-0.2) /100WBC PT (10.9-12.4) SEC INR (0.9-1.1) VBG pH 7.35 (7.32-7.43) VBG pCO2 57 mmHg VBG pO2 91 mmHg VBG HCO3 32 H (22-26) mmol/L VBG O2 Saturation 99.0 % VBG Base Excess 5.4 mmol/L Sodium (135-145) mmol/L Potassium (3.3-5.1) mmol/L Chloride (96-108) mmol/L Carbon Dioxide (22-29) mmol/L Anion Gap (12-20) BUN (9-16) mg/dL Creatinine (0.5-1.4) mg/dL Estim Creat Clear Calc Estimated GFR Random Glucose (60-115) mg/dL Lactic Acid (0.5-2.0) mmol/L Lactic Acid F/U @ 2Hr (0.5-2.0) mmol/L Calcium (8.4-10.2) mg/dL Magnesium (1.6-2.6) mg/dL Total Bilirubin (0.0-1.0) mg/dL Direct Bilirubin (0.0-0.5) mg/dL AST (5-31) U/L ALT (0-31) U/L Alkaline Phosphatase (39-117) U/L Troponin I High Sens (<3.5-17.0) ng/L B-Natriuretic Peptide (<100) pg/mL Total Protein (6.5-8.0) g/dL Albumin (3.5-5.0) g/dL Influenza Type A (PCR) (Negative) Influenza Type B (PCR) (Negative) RSV RNA Qual (PCR) (Negative) SARS-CoV-2 RNA (RT-PCR) (Negative) Independent Interpretation I performed an independent interpretation of an: Plain X-Ray Radiology Impression Discussion of test interpretation with radiology: I have reviewed the radiologist's reading. Radiologist Impression: FINDINGS: The cardiomediastinal silhouette is stable. Pacer leads are again seen in place. There has been a previous median sternotomy. There is mild diffuse increased interstitial markings grossly similar to previous. There is no focal lung consolidation or pleural effusions. The bony structures and the soft tissues are unremarkable. XR/XR chest 1V IMPRESSION: Mild diffuse increased interstitial markings grossly similar to previous study. No focal consolidation or pleural effusions. Critical Care Time Critical Care Time Critical Care Time: Yes Total Critical Care Time: 90 Attestation: I have personally provided critical care time. Time includes review of lab data, radiology results, discussion with consultants, and monitoring for potential decompensation. Intervention performed as documented. Discharge Plan Discharge Clinical Impression: Acute exacerbation of CHF (congestive heart failure), Asthma exacerbation in COPD Patient Disposition: Admitted As Inpatient Print Language: Kiswahili
[2024-03-29 02:11] LABS: Venous Blood Gas Refer to POC result
[2024-03-29 02:12] LABS: MANUAL DIFF FLAG NO
[2024-03-29 02:13] LABS: Basophils Absolute Auto 0.1 X10*3/uL (0.0-0.2); Basophils Percent Auto 0.6 % (0-2); Eosinophils Absolute Auto 0.2 X10*3/uL (0.0-0.4); Eosinophils Percent Auto 1.7 % (0-4); Hematocrit 51.9 % (37.0-47.0); Hemoglobin 16.4 g/dl (12.0-16.0); Imm Gran Abs Auto 0.07 X10*3/uL (0.00-0.03); Imm Gran Pct Auto 0.5 % (0.0-0.4); Lymphocytes Absolute Auto 4.2 X10*3/uL (1.2-4.9); Lymphocytes Percent Auto 31.8 % (20-40); Mean Corpuscular HGB Conc 31.6 g/dl (31.0-35.0); Mean Corpuscular Hemoglobin 28.9 pg (27.0-33.0); Mean Corpuscular Volume 91.4 fL (80.0-98.0); Mean Platelet Volume 11.6 fL (9.4-12.3); Monocytes Absolute Auto 0.4 X10*3/uL (0.1-1.2); Monocytes Percent Auto 3.1 % (2-11); Neutrophils Absolute Auto 8.2 x10*3/uL (2.0-8.3); Neutrophils Percent Auto 62.3 % (45-73); Platelet Count 181 X10*3/uL (160-400); Red Blood Count 5.68 X10*6/uL (4.20-5.50); Red Cell Distribution Width 15.9 % (11.0-16.0); White Blood Count 13.1 X10*3/uL (4.8-10.8)
[2024-03-29] MEDS: cefTRIAXone sodium 1 GM VIAL IVPUSH ×2 (02:13→23:08)
[2024-03-29] MEDS: Azithromycin 500 MG in 0.9 % Sodium Chloride 250 ML 125 MG IV ×2 (02:14→21:24)
[2024-03-29] MEDS: methylPREDNISolone Sod Succ 125 MG/2 ML VIAL IVPUSH (02:14)
[2024-03-29 02:21] LABS: VBG Base Excess -0.6 mmol/L; VBG HCO3 30 mmol/L (22-26); VBG pCO2 79 mmHg; VBG pH 7.19 (7.32-7.43); VBG pO2 55 mmHg
[2024-03-29 02:21] LABS: INTERNATIONAL NORM RATIO 0.9 (0.9-1.1); Prothrombin Time 10.3 SEC (10.9-12.4)
[2024-03-29] MEDS: Magnesium Sulfate/H2O 2 GM/50 ML PIGGYBACK IV (02:26)
[2024-03-29] MEDS: Albuterol Sulfate 5 MG, Albuterol/Iprat 2.5/0.5MG 3 ML 3 ML INHALE (02:27)
[2024-03-29 02:31] LABS: Alanine Aminotransferase 26 U/L (0-31); Albumin Level 4.3 g/dL (3.5-5.0); Alkaline Phosphatase 174 U/L (39-117); Anion Gap 19 (12-20); Aspartate Amino Transferase 45 U/L (5-31); Bilirubin Direct 0.5 mg/dL (0.0-0.5); Bilirubin Total 0.8 mg/dL (0.0-1.0); Blood Urea Nitrogen 19 mg/dL (9-16); Calcium 10.1 mg/dL (8.4-10.2); Carbon Dioxide 17 mmol/L (22-29); Chloride 107 mmol/L (96-108); Creatinine Clr Calc Pharmacy 41.5; Estimated Glomerular Filt Rate 40; Glucose Random 288 mg/dL (60-115); Magnesium 2.4 mg/dL (1.6-2.6); Potassium 3.4 mmol/L (3.3-5.1); Sodium 140 mmol/L (135-145); Total Protein 8.6 g/dL (6.5-8.0)
[2024-03-29 02:35] LABS: Lactic Acid 3.8 mmol/L (0.5-2.0)
[2024-03-29 02:38] LABS: Troponin-I High Sensitivity 478.5 ng/L (<3.5-17.0)
[2024-03-29 02:56] LABS: B Type Natriuretic Peptide 1801 pg/mL (<100)
[2024-03-29 03:00] LABS: Influenza A PCR NEGATIVE (Negative); Influenza B PCR NEGATIVE (Negative); Resp Syncy Virus RNA Qual PCR NEGATIVE (Negative); SARS COV2 PCR INHOUSE NEGATIVE (Negative)
[2024-03-29 04:10] LABS: Reflex Lactate? Lactic Acid Added
[2024-03-29] MEDS: Albumin Human 25 % 50 ML 100 ML IV (04:11)
[2024-03-29 05:15] LABS: ~Lactic Acid-LAB USE ONLY 2.4 mmol/L (0.5-2.0)
[2024-03-29] MEDS: Furosemide 20 MG/2 ML VIAL 10 MG IVPUSH (06:06)
[2024-03-29 06:08] LABS: Venous Blood Gas Refer to POC result
[2024-03-29 06:11] LABS: VBG Base Excess 5.4 mmol/L; VBG HCO3 32 mmol/L (22-26); VBG pCO2 57 mmHg; VBG pH 7.35 (7.32-7.43); VBG pO2 91 mmHg
[2024-03-29 06:34] LABS: Reflex Lactate? 2 Y
[2024-03-29 07:24] LABS: ~Lactic Acid-LAB USE ONLY 2.7 mmol/L (0.5-2.0)
[2024-03-29 08:06] LABS: Amphetamine Screen Urine Not Detected (Not Detect); Barbiturates, Urine Not Detected (Not Detect); Benzodiazepines Screen Urine Not Detected (Not Detect); Buprenorphine Scr Not Detected (Not Detect); Cannabinoid Screen Urine Not Detected (Not Detect); Cocaine Screen Urine Not Detected (Not Detect); Fentanyl, urine Not Detected (Not Detect); Methadone Screen, Urine Not Detected (Not Detect); Opiate Screen Urine Not Detected (Not Detect); Oxycodone Screen Urine Not Detected (Not Detect); Phencyclidine Screen Urine Not Detected (Not Detect)
--- NOTE | 2024-03-29 16:00 | CA_ITS ---
Transthoracic Echocardiogram Patient (Last, First, Middle): La Nena Castro M Gender: Female Date of : 1955 Age: 69 Procedure Date: 03/29/2024 Procedure Type: Transthoracic Echocardiogram Location: ER Height: 147.32 cm Weight: 102.97 kg BSA: 1.92 m2 Heart Rate: 88 bpm BP: 139 / 66 mmHg Environmental Remediation Specialist: YAKOV Referring MD: Patsy Rivera NP Symptoms: chf Study Quality: Adequate w/Contrast ECG Rhythm: Sinus Conclusions: - Normal left ventricular cavity size. There is mildly increased left ventricular wall thickness. The left ventricular systolic function is moderately decreased. The visually estimated ejection fraction is between 30-35%. - There is evidence of regional wall motion abnormalities. - Elevated filling pressures. Findings Procedure Information Contrast agent, definity, is being given per protocol without apparent complications. Left Ventricle Normal left ventricular cavity size. There is mildly increased left ventricular wall thickness. The left ventricular systolic function is moderately decreased. The visually estimated ejection fraction is between 30 35%. There is evidence of regional wall motion abnormalities. Abnormal diastolic function is noted. Spectral Doppler is indicative of a pseudonormal filling pattern. Elevated filling pressures. Wall Motion Rest Echo Findings The apical anterior, apical lateral, mid anterolateral, and basal inferolateral segments are hypokinetic. The apex, basal inferior, and mid inferior segments are akinetic. Right Ventricle Mildly increased right ventricular cavity size. There is mildly decreased right ventricular systolic function. There is an ICD wire seen in the right ventricle. Atria The left atrium is severely dilated. The right atrium is normal in size. Aortic Valve There is a normal trileaflet aortic valve. There is mild calcification of the aortic valve. There is no aortic valve stenosis. There is no aortic valve regurgitation. Mitral Valve The mitral valve appears normal. There is no mitral valve regurgitation. There is no mitral valve stenosis. Pulmonic Valve The pulmonic valve is likely normal. Tricuspid Valve Likely normal tricuspid valve structure and function. The right ventricular systolic pressure is 37 mmHg. Normal right atrial pressure. Mild pulmonary hypertension is present. Great Vessels All visible segments of the aorta are normal in size. Venous The inferior vena cava is normal in size and collapses greater than 50% with inspiration. Pericardium/Pleural There is no evidence of pericardial effusion. Prior Study Comparison No significant change compared to prior study dated: 09/18/2023. Measurements 2D Linear Measurements IVSd: 1.09 0.6-0.9/0.6-1.0 cm LVIDd: 5.47 3.9-5.3/4.2-5.9 cm LVIDd Index: 2.85 2.4-3.2/2.2-3.1 cm/m2 LVIDs: 4.71 2.0-3.6 cm LVPWd: 1.14 0.7-1.1 cm LA Diam: 4.30 2.7-3.8/3.0-4.0 cm LAIDs Index: 2.24 1.5-2.3 cm/m2 LV Mass: 304.58 67-162/88-224 g LV Mass Index: 158.64 43-95/49-115 g/m2 LVOT Diam: 2.00 3.0+(-)1.3 cm 2D Systolic Function EF 4C: 28.50 >55% EF 2C: 37.60 >55% EF BiP: 34.00 >55% Mitral Valve MV Pk E: 1.35 MV PK A: 0.78 MV Decel Time: 154.00 E/A: 1.70 E'Lateral: 4.23 E'Medial: 3.19 E/E' Med: 42.30 E/E' Lat: 31.90 PHT: 45.00 MVA PHT: 4.89 Decel Tate: 8.75 Aortic Valve AoV Pk Jaswinder: 1.75 AoV Mn Jaswinder: 1.25 AoV VTI: 0.39 AoV Pk Grad: 12.00 Aov Mn Grad: 7.00 DONNA Cont.VTI: 1.79 LVOT LVOT Pk Jaswinder: 1.02 LVOT Mn Jaswinder: 0.68 LVOT VTI: 0.22 LVOT Pk Grad: 4.00 LVOT Mn Grad: 2.00 LVOT Diam: 2.00 LVOT Area: 3.14 Diastolic Function MV Pk E: 1.35 MV Pk A: 0.78 E/A: 1.70 E'Medial: 3.19 E/E' Med: 42.30 E' Laterial: 4.23 E/E' Lat: 31.90 Right Ventricle TAPSE (mm): 18.30 TVS' Jaswinder: 7.89 Tricuspid Valve TR Pk Jaswinder: 2.37 TR Pk Grad: 22.00 RA Press: 15.00 RVSP: 37.00 Great Vessels Aorta Sinus of Valsalva: 2.70 2.0-3.5 cm Ao Asc: 2.80 2.1-3.4 cm Pulmonary Valve PV Pk Jaswinder: 0.68 Peak PV Grad: 2.00 Updated in Other Vendor System with Status of Final Jaycob Reza MD electronically signed on 03/29/2024 9:08:30 PM with status of Final
[2024-03-29 16:10] LABS: Hematocrit 40.9 % (37.0-47.0); Hemoglobin 13.3 g/dl (12.0-16.0); Mean Corpuscular HGB Conc 32.5 g/dl (31.0-35.0); Mean Corpuscular Volume 89.3 fL (80.0-98.0); Mean Platelet Volume 11.7 fL (9.4-12.3); Platelet Count 165 X10*3/uL (160-400); Red Blood Count 4.58 X10*6/uL (4.20-5.50); Red Cell Distribution Width 15.9 % (11.0-16.0); White Blood Count 7.2 X10*3/uL (4.8-10.8)
[2024-03-29 16:32] LABS: Anion Gap 15 (12-20); Blood Urea Nitrogen 23 mg/dL (9-16); Calcium 8.8 mg/dL (8.4-10.2); Carbon Dioxide 20 mmol/L (22-29); Chloride 105 mmol/L (96-108); Creatinine Clr Calc Pharmacy 39.1; Estimated Glomerular Filt Rate 37; Glucose Random 545 mg/dL (60-115); Sodium 135 mmol/L (135-145)
[2024-03-29 16:34] LABS: Troponin-I High Sensitivity 507.8 ng/L (<3.5-17.0)
--- NOTE | 2024-03-29 16:38 | PM.IMHP ---
History of Present Illness Date of Service: 03/29/24 Chief Complaint: Shortness of breath 69 year old women presenting with 3 days of increasing sob and URI. She denied fever, chills, nausea, vomiting, diarrhea but reported increased shortness breath and her CPAP broke and she was unable to use it for at least 48 hours. She was to have a history of cardiomyopathy, congestive heart failure and COPD. Elevated troponin, paced EKG no acute ischemic changes noted and patient is chest pain-free. According to EMS patient's oxygen saturation was below 80% on room air and she is not normally on oxygen. In the ER, Troponin was 478.5 with repeat of 507.8, BNP 1801, chest x-ray showing mild diffuse increased interstitial markings with no focal consolidation or pleural effusions. In the ER she received ceftriaxone, azithromycin, magnesium, Solu-Medrol, albuterol, azithromycin, IV Lasix, IV insulin. She will be admitted for further management and treatment of acute respiratory failure secondary to CHF and COPD and possible bronchitis. Review of Systems Review of Systems: Denies any recent fever chills or decrease in appetite respiratory see HPI cardiovascular denied chest pain gastrointestinal denies any dysphagia abdominal pain nausea vomiting or diarrhea genitourinary denies any dysuria frequency or hematuria musculoskeletal denies any joint pain or swelling neuropsych denies any weakness or seizures all other systems reviewed are negative [facility] Medical History CHF (congestive heart failure) Sleep apnea Presence of CardioMEMS HF system Hx of myocardial infarction Anxiety and depression Osteoarthritis Fatty liver Restrictive lung disease TAQUERIA treated with BiPAP Morbid obesity Biventricular ICD (implantable cardioverter-defibrillator) in place CAD (coronary artery disease) Non-rheumatic aortic stenosis Atherosclerotic cardiovascular disease Acute on chronic systolic and diastolic heart failure, NYHA class 3 Leukocytosis Dyspnea Transaminitis Hypoxia Congestive heart failure TAQUERIA (obstructive sleep apnea) NSVT (nonsustained ventricular tachycardia) Cardiomyopathy Chronic systolic heart failure Diabetes mellitus HLD (hyperlipidemia) HTN (hypertension) Family History Father No problems noted. Mother No problems noted. Surgical History History of incision and drainage Status post coronary artery bypass graft Stented coronary artery Hx of CABG History of cardiac cath Hx of cardiac cath Hx of cardiac cath Hx of appendectomy History of cholecystectomy Social History Household Members: Family Household Members Other:: son and daughter in law Housing: Apartment Are you a primary home care and home health aides teacher to a significant other at home: No Do you presently have visiting nurse or other home services: No Alcohol intake: never Comment: chronic back pain Patient Tobacco Use Status: Never used Tobacco Tobacco use type: Cigarette Cigarette Packs Per Day: 1 Years Smoked: 30 Smoked in Last 30 Days: Yes e-Cigarette/Vaping Use: Never Used Second Hand Smoke Exposure: No Use of substances other than those prescribed or required for medical reasons: No Advance Directives: Yes Advance Directives on File: Yes Advance Directives Date on File: 11/07/22 Do you have a plan to hurt others: No Plan Nutrition Risks: No Nutritional Risk service: No Current occupational status: unemployed and disabled Current occupation: rt hand Meds Allergies Allergy/AdvReac Type Severity Reaction Status Date / Time No Known Allergies Allergy Verified 03/29/24 01:43 Active Medications: Current Medications Acetaminophen (Acetaminophen 325 Mg Tablet) 650 mg PO Q6H PRN PRN Reason: Pain, Mild (Pain Scale 1-3), fever or headache Atorvastatin Calcium (Atorvastatin Calcium 80 Mg Tablet) 80 mg PO BEDTIME [facility] Calcium Carbonate (Calcium Carbonate 750 Mg Tab.Chew) 750 mg PO Q4H PRN PRN Reason: Heartburn Carvedilol (Carvedilol 25 Mg Tablet) 25 mg PO BID [facility]; Protocol Furosemide (Furosemide 40 Mg/4 Ml Vial) 40 mg IVPUSH BID@0900,1800 [facility]; Protocol Glucose (Glucose Gel 15 Gm Gel..Gram.) 15 gm PO Q15M PRN; Protocol PRN Reason: per Hypoglycemia Standing Ord. Dextrose (D10) 250 mls @ 750 mls/hr IV Q15M PRN; Protocol PRN Reason: per Hypoglycemia Standing Ord. Insulin Human Lispro (Insulin Lispro 100 Unit/Ml 3 Ml Vial) 0 unit SUBCUT QIDACHS [facility]; Protocol Insulin Human Regular (Insulin Regular, Human 100 Unit/Ml 10 Ml Vial) 10 unit IVPUSH ONCE ONE Stop: 03/29/24 16:37 Magnesium Hydroxide (Milk Of Magnesia 30 Ml Oral.Susp) 30 ml PO DAILY PRN PRN Reason: Constipation Melatonin (Melatonin 3 Mg Tablet) 6 mg PO BEDTIME PRN PRN Reason: Insomnia Non-Formulary Medication (Citalopram) 20 mg PO DAILY [facility] Non-Formulary Medication (Insulin Aspart U-100) 1 sliding scale dose SUBCUT TIDAC [facility] Ondansetron HCl (Ondansetron Hcl 4 Mg/2 Ml Vial) 4 mg IVPUSH Q8H PRN PRN Reason: Nausea and Vomiting Sodium Chloride (0.9 % Sodium Chloride Flush 3 Ml Syringe) 3 ml IVFLUSH QSHIFT [facility] Home Medications ?Medication ?Instructions ?Recorded ?Confirmed ?Last Taken ?Type atorvastatin 80 mg tablet 80 mg PO BEDTIME 02/27/20 03/29/24 03/28/24 History insulin aspart U-100 100 unit/mL 1 sliding scale dose subcut TIDAC 06/26/20 03/29/24 03/29/24 History (3 mL) subcutaneous pen citalopram 20 mg tablet 20 mg PO DAILY 07/21/20 03/29/24 03/29/24 History rivaroxaban 20 mg tablet (Xarelto) 20 mg PO DAILY@1700 08/14/23 03/29/24 03/28/24 History diphenhydramine HCl 50 mg/30 mL 50 mg PO BEDTIME PRN Sleep 08/15/23 03/29/24 Unknown History oral liquid (ZzzQuil) insulin glargine 100 unit/mL (3 28 unit subcut BEDTIME 02/04/24 03/29/24 03/28/24 History mL) subcutaneous pen (Lantus Solostar U-100 Insulin) carvedilol 25 mg tablet 25 mg PO BID 02/09/24 03/29/24 03/29/24 History empagliflozin 25 mg tablet 25 mg PO DAILY 02/09/24 03/29/24 03/29/24 History (Jardiance) furosemide 40 mg tablet 40 mg PO DAILY 02/09/24 03/29/24 03/29/24 History sacubitril 97 mg-valsartan 103 mg 1 tab PO BID 02/09/24 03/29/24 03/29/24 History tablet (Entresto) ipratropium 20 mcg-albuterol 100 1 puff inhalation QID PRN wheezing 03/29/24 03/29/24 Unknown History mcg/actuation mist for inhalation (Combivent Respimat) Physical Exam Vital Signs and Narrative: Vital Signs: Last Vital Signs Temp 97.6 F 03/29/24 16:05 Pulse 88 03/29/24 16:05 Resp 20 03/29/24 16:05 BP 131/66 03/29/24 16:05 Pulse Ox 96 03/29/24 16:05 O2 Del Method Nasal Cannula 03/29/24 16:05 O2 Flow Rate 2 03/29/24 16:05 BMI result Body Mass Index 47.5 Appearing in no acute distress head is normocephalic atraumatic eyes pupils are PERRLA sclera is anicteric mouth throat mucous membranes are intact and moist neck is supple no lymphadenopathy, no JVD noted lung sounds rhonchi heart regular rate rhythm, clear S1, S2 positive bowel sounds, abdomen is soft, nontender neuro patient is alert x3, no focal deficits Results Labs 03/29/24 02:03 03/29/24 16:00 Labs: Laboratory Results - last 24 hr 03/29/24 03/29/24 03/29/24 02:03 02:05 02:06 MCV 91.4 MCH 28.9 MCHC 31.6 RDW 15.9 Plt Count 181 D MPV 11.6 Immature Gran % (Auto) 0.5 H Neut % (Auto) 62.3 Lymph % (Auto) 31.8 [place] % (Auto) 3.1 Eos % (Auto) 1.7 Baso % (Auto) 0.6 Lymph # (Auto) 4.2 [place] # (Auto) 0.4 Eos # (Auto) 0.2 Baso # (Auto) 0.1 Abs Immat Gran (auto) 0.07 H Absolute Neuts (auto) 8.2 Absolute Nucleated RBC 0.000 Nucleated RBC % (auto) 0.0 PT 10.3 L D INR 0.9 VBG pH VBG pCO2 VBG pO2 VBG HCO3 VBG O2 Saturation VBG Base Excess Anion Gap 19 Estim Creat Clear Calc 41.5 Estimated GFR 40 Random Glucose 288 H Lactic Acid 3.8 H* Lactic Acid F/U @ 2Hr Lactic Acid F/U @ 4Hr Calcium 10.1 D Magnesium 2.4 Total Bilirubin 0.8 Direct Bilirubin 0.5 AST 45 H ALT 26 Alkaline Phosphatase 174 H Troponin I High Sens 478.5 H* B-Natriuretic Peptide 1801 H Total Protein 8.6 H Albumin 4.3 Urine Opiates Screen Ur Buprenorphine Scrn Ur Oxycodone Screen Urine Methadone Screen Urine Fentanyl Screen Ur Barbiturates Screen Ur Phencyclidine Scrn Ur Amphetamines Screen U Benzodiazepines Scrn Urine Cocaine Screen U Marijuana (THC) Screen Influenza Type A (PCR) Influenza Type B (PCR) RSV RNA Qual (PCR) SARS-CoV-2 RNA (RT-PCR) 03/29/24 03/29/24 03/29/24 02:12 02:19 04:31 MCV MCH MCHC RDW Plt Count MPV Immature Gran % (Auto) Neut % (Auto) Lymph % (Auto) [place] % (Auto) Eos % (Auto) Baso % (Auto) Lymph # (Auto) [place] # (Auto) Eos # (Auto) Baso # (Auto) Abs Immat Gran (auto) Absolute Neuts (auto) Absolute Nucleated RBC Nucleated RBC % (auto) PT INR VBG pH 7.19 L* VBG pCO2 79 VBG pO2 55 VBG HCO3 30 H VBG O2 Saturation 79.0 VBG Base Excess -0.6 Anion Gap Estim Creat Clear Calc Estimated GFR Random Glucose Lactic Acid Lactic Acid F/U @ 2Hr 2.4 H* Lactic Acid F/U @ 4Hr Calcium Magnesium Total Bilirubin Direct Bilirubin AST ALT Alkaline Phosphatase Troponin I High Sens B-Natriuretic Peptide Total Protein Albumin Urine Opiates Screen Ur Buprenorphine Scrn Ur Oxycodone Screen Urine Methadone Screen Urine Fentanyl Screen Ur Barbiturates Screen Ur Phencyclidine Scrn Ur Amphetamines Screen U Benzodiazepines Scrn Urine Cocaine Screen U Marijuana (THC) Screen Influenza Type A (PCR) NEGATIVE Influenza Type B (PCR) NEGATIVE RSV RNA Qual (PCR) NEGATIVE SARS-CoV-2 RNA (RT-PCR) NEGATIVE 03/29/24 03/29/24 03/29/24 06:07 06:56 07:49 MCV MCH MCHC RDW Plt Count MPV Immature Gran % (Auto) Neut % (Auto) Lymph % (Auto) [place] % (Auto) Eos % (Auto) Baso % (Auto) Lymph # (Auto) [place] # (Auto) Eos # (Auto) Baso # (Auto) Abs Immat Gran (auto) Absolute Neuts (auto) Absolute Nucleated RBC Nucleated RBC % (auto) PT INR VBG pH 7.35 VBG pCO2 57 VBG pO2 91 VBG HCO3 32 H VBG O2 Saturation 99.0 VBG Base Excess 5.4 Anion Gap Estim Creat Clear Calc Estimated GFR Random Glucose Lactic Acid Lactic Acid F/U @ 2Hr Lactic Acid F/U @ 4Hr 2.7 H* Calcium Magnesium Total Bilirubin Direct Bilirubin AST ALT Alkaline Phosphatase Troponin I High Sens B-Natriuretic Peptide Total Protein Albumin Urine Opiates Screen Not Detected Ur Buprenorphine Scrn Not Detected Ur Oxycodone Screen Not Detected Urine Methadone Screen Not Detected Urine Fentanyl Screen Not Detected Ur Barbiturates Screen Not Detected Ur Phencyclidine Scrn Not Detected Ur Amphetamines Screen Not Detected U Benzodiazepines Scrn Not Detected Urine Cocaine Screen Not Detected U Marijuana (THC) Screen Not Detected Influenza Type A (PCR) Influenza Type B (PCR) RSV RNA Qual (PCR) SARS-CoV-2 RNA (RT-PCR) 03/29/24 16:00 MCV MCH MCHC RDW Plt Count MPV Immature Gran % (Auto) Neut % (Auto) Lymph % (Auto) [place] % (Auto) Eos % (Auto) Baso % (Auto) Lymph # (Auto) [place] # (Auto) Eos # (Auto) Baso # (Auto) Abs Immat Gran (auto) Absolute Neuts (auto) Absolute Nucleated RBC Nucleated RBC % (auto) PT INR VBG pH VBG pCO2 VBG pO2 VBG HCO3 VBG O2 Saturation VBG Base Excess Anion Gap 15 Estim Creat Clear Calc 39.1 Estimated GFR 37 Random Glucose 545 H* Lactic Acid Lactic Acid F/U @ 2Hr Lactic Acid F/U @ 4Hr Calcium 8.8 D Magnesium Total Bilirubin Direct Bilirubin AST ALT Alkaline Phosphatase Troponin I High Sens 507.8 H* B-Natriuretic Peptide Total Protein Albumin Urine Opiates Screen Ur Buprenorphine Scrn Ur Oxycodone Screen Urine Methadone Screen Urine Fentanyl Screen Ur Barbiturates Screen Ur Phencyclidine Scrn Ur Amphetamines Screen U Benzodiazepines Scrn Urine Cocaine Screen U Marijuana (THC) Screen Influenza Type A (PCR) Influenza Type B (PCR) RSV RNA Qual (PCR) SARS-CoV-2 RNA (RT-PCR) Imaging Radiologist's Impressions: Impressions Chest X-Ray 03/29/24 01:37 IMPRESSION: Mild diffuse increased interstitial markings grossly similar to previous study. No focal consolidation or pleural effusions. Electronically signed by: Wiliam Warren MD 03/29/2024 04:05 AM EST Assessment and Plan (1) Acute exacerbation of CHF (congestive heart failure): Status: Acute Plan 69-year-old woman admitted with COPD and acute congestive heart failure. Acute hypoxic respiratory failure secondary to CHF and COPD Acute congestive heart failure exacerbation Echocardiogram from August of 2023 with EF of 30-35% with multiple hypokinetic and akinetic areas IV Lasix Echocardiogram Cardiology consultation Monitor on telemetry Strict intake and output Daily weights COPD exacerbation with possible bronchitis IV Solu-Medrol Scheduled DuoNebs Rocephin and azithromycin Supplemental oxygen to keep oxygen saturation greater than 90% Elevated troponin No complaints of chest pain BIV, paced rhythm Chronically elevated troponins Likely secondary to acute congestive heart failure Cardiology consultation Diabetes mellitus type 2 with hyperglycemia Regular insulin 10 units x 1 for blood sugar of 545 Check blood sugars every 2 hours Sliding scale, Lantus, ADA diet Obstructive sleep apnea CPAP at bedtime DVT prophylaxis with Xarelto Full code Quality Stroke Does the patient have a stroke diagnosis?: No VTE Prior VTE?: No VTE Risk Level:: Medical - moderate - high VTE Device Contraindication: Treatment Not Indicated VTE Drug Contraindication: N/A - Med Ordered
[2024-03-29 16:40] LABS: Glucose, Whole Blood 518 mg/dL (60-115)
[2024-03-29] MEDS: Rivaroxaban 20 MG TABLET PO (16:51)
[2024-03-29] MEDS: Insulin Regular, Human 100 UNIT/ML 10 ML VIAL 10 UNIT IVPUSH (16:51)
[2024-03-29] MEDS: 0.9 % Sodium Chloride Flush 3 ML SYRINGE IVFLUSH (16:52)
--- NOTE | 2024-03-29 17:23 | PC.NURSE ---
Pt glucose 545. 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 10 units IVP Insulin given. Sliding scale insulin held d/t 10 units given.
[2024-03-29 18:06] LABS: Glucose, Whole Blood 396 mg/dL (60-115)
--- NOTE | 2024-03-29 18:37 | PC.NURSE ---
Lasix administration delayed d/t not being in pyxis. Pharmacy notified.
[2024-03-29] MEDS: Furosemide 40 MG/4 ML VIAL IVPUSH (19:29)
[2024-03-29 20:51] LABS: Glucose, Whole Blood 455 mg/dL (60-115)
[2024-03-29] MEDS: carvediloL 25 MG TABLET PO (21:22)
[2024-03-29] MEDS: Insulin Glargine,Hum.rec.anlog 100 UNIT/ML 10 ML VIAL 28 UNIT SUBCUT (21:22)
[2024-03-29] MEDS: Atorvastatin Calcium 80 MG TABLET PO (21:22)
[2024-03-29] MEDS: Insulin Regular, Human 100 UNIT/ML 10 ML VIAL 12 UNIT IVPUSH (21:23)
[2024-03-29 23:31] LABS: Glucose, Whole Blood 200 mg/dL (60-115)
[2024-03-30] VITALS (8 sets, daily range): BP systolic 112–135; BP diastolic 47–67; PULSE 67–78; RESP 14–18; TEMP 36.2–36.8; O2SAT 95–99
--- NOTE | 2024-03-30 00:14 | MHC.EDTECH ---
This tech took over care of patient at 2300,rounded and introduced self to pt,vitals taken,pt appears comfortable,call stratton in reach
[2024-03-30] MEDS: 0.9 % Sodium Chloride Flush 3 ML SYRINGE IVFLUSH ×4 (00:31→21:52)
--- NOTE | 2024-03-30 03:47 | MHC.EDTECH ---
Rounds and vitals completed,patient is resting quietly,call stratton in reach
[2024-03-30 04:34] LABS: Hematocrit 39.2 % (37.0-47.0); Hemoglobin 12.8 g/dl (12.0-16.0); Mean Corpuscular HGB Conc 32.7 g/dl (31.0-35.0); Mean Corpuscular Volume 88.7 fL (80.0-98.0); Mean Platelet Volume 11.7 fL (9.4-12.3); Platelet Count 170 X10*3/uL (160-400); Red Blood Count 4.42 X10*6/uL (4.20-5.50); Red Cell Distribution Width 15.9 % (11.0-16.0); White Blood Count 14.3 X10*3/uL (4.8-10.8)
[2024-03-30 04:52] LABS: B Type Natriuretic Peptide 2700 pg/mL (<100)
[2024-03-30 04:54] LABS: Alanine Aminotransferase 20 U/L (0-31); Albumin Level 3.6 g/dL (3.5-5.0); Alkaline Phosphatase 110 U/L (39-117); Anion Gap 15 (12-20); Aspartate Amino Transferase 33 U/L (5-31); Bilirubin Total 0.5 mg/dL (0.0-1.0); Blood Urea Nitrogen 37 mg/dL (9-16); Calcium 9.1 mg/dL (8.4-10.2); Carbon Dioxide 18 mmol/L (22-29); Chloride 110 mmol/L (96-108); Creatinine Clr Calc Pharmacy 44.2; Estimated Glomerular Filt Rate 43; Glucose Random 253 mg/dL (60-115); Potassium 4.5 mmol/L (3.3-5.1); Sodium 138 mmol/L (135-145); Total Protein 7.2 g/dL (6.5-8.0)
--- NOTE | 2024-03-30 05:59 | MHC.EDTECH ---
Patient ambulated to the bathroom with a steady gait
[2024-03-30 07:37] LABS: Glucose, Whole Blood 236 mg/dL (60-115)
[2024-03-30] MEDS: carvediloL 25 MG TABLET PO ×2 (07:48→21:33)
[2024-03-30] MEDS: Escitalopram Oxalate 10 MG TABLET PO (07:50)
[2024-03-30] MEDS: Furosemide 40 MG/4 ML VIAL IVPUSH ×2 (07:51→18:54)
[2024-03-30] MEDS: Insulin Lispro 100 UNIT/ML 3 ML VIAL SUBCUT ×4 (07:51→21:34)
--- NOTE | 2024-03-30 08:53 | P.CONCA_ITS ---
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 She said over the last few days her breathing worsened to the point that she could not ambulate between rooms. Clinically she was noticed to be in heart failure and has been on IV diuretics. Overall she is improving. Taking medicines regularly. No anginal symptoms reported. [facility] Past Medical History Medical History CHF (congestive heart failure) Sleep apnea Presence of CardioMEMS HF system Hx of myocardial infarction Anxiety and depression Osteoarthritis Fatty liver Restrictive lung disease TAQUERIA treated with BiPAP Morbid obesity Biventricular ICD (implantable cardioverter-defibrillator) in place CAD (coronary artery disease) Non-rheumatic aortic stenosis Atherosclerotic cardiovascular disease Acute on chronic systolic and diastolic heart failure, NYHA class 3 Leukocytosis Dyspnea Transaminitis Hypoxia Congestive heart failure TAQUERIA (obstructive sleep apnea) NSVT (nonsustained ventricular tachycardia) Cardiomyopathy Chronic systolic heart failure Diabetes mellitus HLD (hyperlipidemia) HTN (hypertension) Family History Family History Father No problems noted. Mother No problems noted. Surgical History Surgical History History of incision and drainage Status post coronary artery bypass graft Stented coronary artery Hx of CABG History of cardiac cath Hx of cardiac cath Hx of cardiac cath Hx of appendectomy History of cholecystectomy Social History Social History Household Members: Family Household Members Other:: son and daughter in law Housing: Apartment Are you a primary career services coordinator to a significant other at home: No Do you presently have visiting nurse or other home services: No Alcohol intake: never Comment: chronic back pain Patient Tobacco Use Status: Never used Tobacco Tobacco use type: Cigarette Cigarette Packs Per Day: 1 Years Smoked: 30 Smoked in Last 30 Days: Yes e-Cigarette/Vaping Use: Never Used Second Hand Smoke Exposure: No Use of substances other than those prescribed or required for medical reasons: No Advance Directives: Yes Advance Directives on File: Yes Advance Directives Date on File: 11/07/22 Do you have a plan to hurt others: No Plan Nutrition Risks: No Nutritional Risk service: No Current occupational status: unemployed and disabled Current occupation: rt hand Meds Allergies Allergy/AdvReac Type Severity Reaction Status Date / Time No Known Allergies Allergy Verified 03/29/24 01:43 Active Medications: Current Medications Acetaminophen (Acetaminophen 325 Mg Tablet) 650 mg PO Q6H PRN PRN Reason: Pain, Mild (Pain Scale 1-3), fever or headache Atorvastatin Calcium (Atorvastatin Calcium 80 Mg Tablet) 80 mg PO BEDTIME [facility] Last Admin: 03/29/24 21:22 Dose: 80 mg Calcium Carbonate (Calcium Carbonate 750 Mg Tab.Chew) 750 mg PO Q4H PRN PRN Reason: Heartburn Carvedilol (Carvedilol 25 Mg Tablet) 25 mg PO BID [facility]; Protocol Last Admin: 03/30/24 07:48 Dose: 25 mg Ceftriaxone Sodium (Ceftriaxone Sodium 1 Gm Vial) 1 gm IVPUSH Q24H [facility] Last Admin: 03/29/24 23:08 Dose: 1 gm Escitalopram Oxalate (Escitalopram Oxalate 10 Mg Tablet) 10 mg PO DAILY [facility] Last Admin: 03/30/24 07:50 Dose: 10 mg Furosemide (Furosemide 40 Mg/4 Ml Vial) 40 mg IVPUSH BID@0900,1800 [facility]; Protocol Last Admin: 03/30/24 07:51 Dose: 40 mg Glucose (Glucose Gel 15 Gm Gel..Gram.) 15 gm PO Q15M PRN; Protocol PRN Reason: per Hypoglycemia Standing Ord. Dextrose (D10) 250 mls @ 750 mls/hr IV Q15M PRN; Protocol PRN Reason: per Hypoglycemia Standing Ord. Azithromycin 500 mg/ Sodium (Chloride) 250 mls @ 125 mls/hr IV Q24H [facility] Last Infusion: 03/30/24 00:06 Dose: Infused Insulin Glargine (Insulin Glargine,Hum.Rec.Anlog 100 Unit/Ml 10 Ml Vial) 28 unit SUBCUT BEDTIME [facility] Last Admin: 03/29/24 21:22 Dose: 28 unit Insulin Human Lispro (Insulin Lispro 100 Unit/Ml 3 Ml Vial) 0 unit SUBCUT QIDACHS [facility]; Protocol Last Admin: 03/30/24 07:51 Dose: 4 unit Magnesium Hydroxide (Milk Of Magnesia 30 Ml Oral.Susp) 30 ml PO DAILY PRN PRN Reason: Constipation Melatonin (Melatonin 3 Mg Tablet) 6 mg PO BEDTIME PRN PRN Reason: Insomnia Ondansetron HCl (Ondansetron Hcl 4 Mg/2 Ml Vial) 4 mg IVPUSH Q8H PRN PRN Reason: Nausea and Vomiting Rivaroxaban (Rivaroxaban 20 Mg Tablet) 20 mg PO DAILY@1700 [facility] Last Admin: 03/29/24 16:51 Dose: 20 mg Sodium Chloride (0.9 % Sodium Chloride Flush 3 Ml Syringe) 3 ml IVFLUSH [facility] Last Admin: 03/30/24 07:52 Dose: 3 ml Home Medications ?Medication ?Instructions ?Recorded ?Confirmed ?Last Taken ?Type atorvastatin 80 mg tablet 80 mg PO BEDTIME 02/27/20 03/29/24 03/28/24 History insulin aspart U-100 100 unit/mL 1 sliding scale dose subcut TIDAC 06/26/20 03/29/24 03/29/24 History (3 mL) subcutaneous pen citalopram 20 mg tablet 20 mg PO DAILY 07/21/20 03/29/24 03/29/24 History rivaroxaban 20 mg tablet (Xarelto) 20 mg PO DAILY@1700 08/14/23 03/29/24 03/28/24 History diphenhydramine HCl 50 mg/30 mL 50 mg PO BEDTIME PRN Sleep 08/15/23 03/29/24 Unknown History oral liquid (ZzzQuil) insulin glargine 100 unit/mL (3 28 unit subcut BEDTIME 02/04/24 03/29/24 03/28/24 History mL) subcutaneous pen (Lantus Solostar U-100 Insulin) carvedilol 25 mg tablet 25 mg PO BID 02/09/24 03/29/24 03/29/24 History empagliflozin 25 mg tablet 25 mg PO DAILY 02/09/24 03/29/24 03/29/24 History (Jardiance) furosemide 40 mg tablet 40 mg PO DAILY 02/09/24 03/29/24 03/29/24 History sacubitril 97 mg-valsartan 103 mg 1 tab PO BID 02/09/24 03/29/24 03/29/24 History tablet (Entresto) ipratropium 20 mcg-albuterol 100 1 puff inhalation QID PRN wheezing 03/29/24 03/29/24 Unknown History mcg/actuation mist for inhalation (Combivent Respimat) Physical Exam 2 Vital Signs: Vital Signs: Last Vital Signs Temp 97.7 F 03/30/24 07:56 Pulse 73 03/30/24 07:56 Resp 18 03/30/24 07:56 BP 117/49 L 03/30/24 07:56 Pulse Ox 98 03/30/24 07:56 O2 Del Method Nasal Cannula 03/30/24 07:56 O2 Flow Rate 2 03/30/24 07:56 BMI result Body Mass Index 47.5 GENERAL APPEARANCE: in no acute distress, pleasant. NECK: no carotid bruit, + jugular venous distention. SKIN: no suspicious lesions, warm and dry. HEART: no murmurs, regular rate and rhythm. LUNGS: Crackles at bases. ABDOMEN: soft, nontender. EXTREMITIES: no edema. PERIPHERAL PULSES: equal. NEUROLOGIC: No gross deficits, AAO X 3 Objective Labs and Meds 03/30/24 04:21 03/30/24 04:21 Lab results: Laboratory Results - last 24 hr 03/29/24 03/29/24 03/29/24 16:00 16:36 18:03 WBC 7.2 RBC 4.58 Hgb 13.3 Hct 40.9 D MCV 89.3 MCH 29.0 MCHC 32.5 RDW 15.9 Plt Count 165 MPV 11.7 Absolute Nucleated RBC 0.000 Nucleated RBC % (auto) 0.0 Sodium 135 Potassium 5.0 D Chloride 105 Carbon Dioxide 20 L Anion Gap 15 BUN 23 H Creatinine 1.39 Estim Creat Clear Calc 39.1 Estimated GFR 37 POC Glucose 518 H* 396 H* Random Glucose 545 H* Calcium 8.8 D Total Bilirubin AST ALT Alkaline Phosphatase Troponin I High Sens 507.8 H* B-Natriuretic Peptide Total Protein Albumin Beta-Hydroxybutyrate 0.20 03/29/24 03/29/24 03/30/24 20:47 23:27 04:21 WBC 14.3 H RBC 4.42 Hgb 12.8 Hct 39.2 MCV 88.7 MCH 29.0 MCHC 32.7 RDW 15.9 Plt Count 170 MPV 11.7 Absolute Nucleated RBC 0.000 Nucleated RBC % (auto) 0.0 Sodium 138 Potassium 4.5 Chloride 110 H Carbon Dioxide 18 L Anion Gap 15 BUN 37 H Creatinine 1.23 Estim Creat Clear Calc 44.2 Estimated GFR 43 POC Glucose 455 H* 200 H Random Glucose 253 H Calcium 9.1 Total Bilirubin 0.5 AST 33 H ALT 20 Alkaline Phosphatase 110 Troponin I High Sens B-Natriuretic Peptide 2700 H Total Protein 7.2 Albumin 3.6 Beta-Hydroxybutyrate 03/30/24 07:33 WBC RBC Hgb Hct MCV MCH MCHC RDW Plt Count MPV Absolute Nucleated RBC Nucleated RBC % (auto) Sodium Potassium Chloride Carbon Dioxide Anion Gap BUN Creatinine Estim Creat Clear Calc Estimated GFR POC Glucose 236 H Random Glucose Calcium Total Bilirubin AST ALT Alkaline Phosphatase Troponin I High Sens B-Natriuretic Peptide Total Protein Albumin Beta-Hydroxybutyrate Assessment and Plan (1) Acute exacerbation of CHF (congestive heart failure): Status: Acute Plan Pleasant 69 year female with acute exacerbation of chronic systolic heart failure. EF 30 35% on this admission which is similar to before. She has wall motion abnormalities from previous coronary disease. She is status post bypass surgery at this point. She is doing well with diuresis. Still volume overloaded and I think she should continue IV diuretics today. Potentially can be changed to oral diuretics tomorrow and would favor putting her on 40 mg twice a day. Continue her home medicines including Xarelto, Jardiance, Entresto and carvedilol. Thank you for allowing me to participate in the care of your patient. Please feel free to contact me if you have any questions. Procedures Date of Service Date of Service: 03/30/24
--- NOTE | 2024-03-30 09:03 | MHC.CM.PN ---
CM met with Patient at bedside, in the ED and addressed IMM with her (original was given to Patient and a copy will be placed on the chart). Patient lives in an apartment with her Son/HCP/Alfred, her [id number], Daughter, and adult Granddaughter and she is functionally independent. Patient's CPAP is supplied through [employer]. Home/self care is the goal and CM has initiated and will follow for dc planning. PCP is Dr. Emilie Martins and Patient will need assist with transport to home.
--- NOTE | 2024-03-30 10:17 | PHA.MEDREC ---
Pharmacy Consult ? Medication Reconciliation Pharmacy has completed the medication reconciliation. Spoke to patient at bedside, she was able to confirm all her medications with me. Stated she took her morning meds before coming in.
--- NOTE | 2024-03-30 12:26 | HO.PM.IMPN ---
Subjective Subjective Date of Service: 03/30/24 Interval History: a bit better Physical Exam Vital Signs: Vital Signs: Last Vital Signs Temp 98.2 F 03/30/24 12:18 Pulse 67 03/30/24 12:18 Resp 17 03/30/24 12:18 BP 112/47 L 03/30/24 12:18 Pulse Ox 95 03/30/24 12:18 O2 Del Method Room Air 03/30/24 12:18 O2 Flow Rate 2 03/30/24 07:56 BMI result Body Mass Index 47.5 General: AO X 3, no acute distress Resp: CTA bilateral, no accessory muscles used CVS: S1,S2,RRR GI: soft, non tender, non distended Neuro: motor grossly intact, alert Psych: appropriate affect, appropriate insight Objective Data Active Medications Acetaminophen (Acetaminophen 325 Mg Tablet) 650 mg PO Q6H PRN PRN Reason: Pain, Mild (Pain Scale 1-3), fever or headache Atorvastatin Calcium (Atorvastatin Calcium 80 Mg Tablet) 80 mg PO BEDTIME [facility] Last Admin: 03/29/24 21:22 Dose: 80 mg Documented By: KENNETH Calcium Carbonate (Calcium Carbonate 750 Mg Tab.Chew) 750 mg PO Q4H PRN PRN Reason: Heartburn Carvedilol (Carvedilol 25 Mg Tablet) 25 mg PO BID [facility]; Protocol Last Admin: 03/30/24 07:48 Dose: 25 mg Documented By: MARIA LUISA Ceftriaxone Sodium (Ceftriaxone Sodium 1 Gm Vial) 1 gm IVPUSH Q24H [facility] Last Admin: 03/29/24 23:08 Dose: 1 gm Documented By: KENNETH Escitalopram Oxalate (Escitalopram Oxalate 10 Mg Tablet) 10 mg PO DAILY [facility] Last Admin: 03/30/24 07:50 Dose: 10 mg Documented By: MARIA LUISA Furosemide (Furosemide 40 Mg/4 Ml Vial) 40 mg IVPUSH BID@0900,1800 [facility]; Protocol Last Admin: 03/30/24 07:51 Dose: 40 mg Documented By: MARIA LUISA Glucose (Glucose Gel 15 Gm Gel..Gram.) 15 gm PO Q15M PRN; Protocol PRN Reason: per Hypoglycemia Standing Ord. Dextrose (D10) 250 mls @ 750 mls/hr IV Q15M PRN; Protocol PRN Reason: per Hypoglycemia Standing Ord. Azithromycin 500 mg/ Sodium (Chloride) 250 mls @ 125 mls/hr IV Q24H [facility] Last Infusion: 03/30/24 00:06 Dose: Infused Documented By: KENNETH Insulin Glargine (Insulin Glargine,Hum.Rec.Anlog 100 Unit/Ml 10 Ml Vial) 28 unit SUBCUT BEDTIME [facility] Last Admin: 03/29/24 21:22 Dose: 28 unit Documented By: KENNETH Insulin Human Lispro (Insulin Lispro 100 Unit/Ml 3 Ml Vial) 0 unit SUBCUT QIDACHS [facility]; Protocol Last Admin: 03/30/24 07:51 Dose: 4 unit Documented By: MARIA LUISA Comments: BS 236 Magnesium Hydroxide (Milk Of Magnesia 30 Ml Oral.Susp) 30 ml PO DAILY PRN PRN Reason: Constipation Melatonin (Melatonin 3 Mg Tablet) 6 mg PO BEDTIME PRN PRN Reason: Insomnia Ondansetron HCl (Ondansetron Hcl 4 Mg/2 Ml Vial) 4 mg IVPUSH Q8H PRN PRN Reason: Nausea and Vomiting Rivaroxaban (Rivaroxaban 20 Mg Tablet) 20 mg PO DAILY@1700 [facility] Last Admin: 03/29/24 16:51 Dose: 20 mg Documented By: RAMÓN Sodium Chloride (0.9 % Sodium Chloride Flush 3 Ml Syringe) 3 ml IVFLUSH QSHIFT [facility] Last Admin: 03/30/24 07:52 Dose: 3 ml Documented By: MARIA LUISA Labs 03/30/24 04:21 03/30/24 04:21 Labs: Laboratory Results - last 24 hr 03/29/24 03/29/24 03/29/24 16:00 16:36 18:03 MCV 89.3 MCH 29.0 MCHC 32.5 RDW 15.9 Plt Count 165 MPV 11.7 Absolute Nucleated RBC 0.000 Nucleated RBC % (auto) 0.0 Anion Gap 15 Estim Creat Clear Calc 39.1 Estimated GFR 37 POC Glucose 518 H* 396 H* Random Glucose 545 H* Calcium 8.8 D Total Bilirubin AST ALT Alkaline Phosphatase Troponin I High Sens 507.8 H* B-Natriuretic Peptide Total Protein Albumin Beta-Hydroxybutyrate 0.20 12/03/24 12/03/24 12/04/24 20:47 23:27 04:21 MCV 88.7 MCH 29.0 MCHC 32.7 RDW 15.9 Plt Count 170 MPV 11.7 Absolute Nucleated RBC 0.000 Nucleated RBC % (auto) 0.0 Anion Gap 15 Estim Creat Clear Calc 44.2 Estimated GFR 43 POC Glucose 455 H* 200 H Random Glucose 253 H Calcium 9.1 Total Bilirubin 0.5 AST 33 H ALT 20 Alkaline Phosphatase 110 Troponin I High Sens B-Natriuretic Peptide 2700 H Total Protein 7.2 Albumin 3.6 Beta-Hydroxybutyrate 03/30/24 07:33 MCV MCH MCHC RDW Plt Count MPV Absolute Nucleated RBC Nucleated RBC % (auto) Anion Gap Estim Creat Clear Calc Estimated GFR POC Glucose 236 H Random Glucose Calcium Total Bilirubin AST ALT Alkaline Phosphatase Troponin I High Sens B-Natriuretic Peptide Total Protein Albumin Beta-Hydroxybutyrate Microbiology Microbiology Results: Microbiology 03/29/24 02:13 Blood Culture - Preliminary Blood - Venous No growth after 24 hours. 03/29/24 02:02 Blood Culture - Preliminary Blood - Venous No growth after 24 hours. Assessment and Plan (1) Acute exacerbation of CHF (congestive heart failure): Status: Acute Plan 69F PMH htn, hld, dm, cad, hfref, TAQUERIA, , history of PE, presented with sob Acute hypoxic respiratory failure due to acute on chronic systolic CHF and COPD with acute decompensation Continue IV Lasix, ceftriaxone, azithromycin, Solu-Medrol, DuoNebs Wean O2 as tolerated Monitor electrolytes Cardio appreciated Continue Coreg CAD Xarelto, statin Morbid obesity Weight loss recommended History of PE Continue Xarelto Diabetes with hyperglycemia Continue basal bolus insulin TAQUERIA CPAP at night Full code reason for continued hospitalization: Ongoing IV diuresis Quality Stroke Does the patient have a stroke diagnosis?: No VTE Prior VTE?: No VTE Risk Level:: Medical - moderate - high VTE Device Contraindication: Treatment Not Indicated VTE Drug Contraindication: N/A - Med Ordered
--- NOTE | 2024-03-30 12:48 | PC.NURSE ---
Assumed care of patient at 0700, alert and oriented, OOB ambulating to bathroom independently, gait steady. Started shift on 2L NC O2, weaned off O2 to RA, sats 95-96%. Tolerated breakfast. Left AC IV present, patent and flushing.
[2024-03-30 13:56] LABS: Glucose, Whole Blood 227 mg/dL (60-115)
[2024-03-30] MEDS: Rivaroxaban 20 MG TABLET PO (18:53)
[2024-03-30 20:39] LABS: Glucose, Whole Blood 151 mg/dL (60-115)
[2024-03-30] MEDS: Atorvastatin Calcium 80 MG TABLET PO (21:34)
[2024-03-30] MEDS: Insulin Glargine,Hum.rec.anlog 100 UNIT/ML 10 ML VIAL 28 UNIT SUBCUT (21:34)
[2024-03-30] MEDS: Azithromycin 500 MG in 0.9 % Sodium Chloride 250 ML 125 MG IV (21:46)
[2024-03-30] MEDS: cefTRIAXone sodium 1 GM VIAL IVPUSH (23:52)
[2024-03-31] VITALS: BP 109/58; PULSE 70; RESP 16; TEMP 36; O2SAT 96
[2024-03-31 01:00] VITALS: PULSE 116; RESP 28; O2SAT 97
[2024-03-31 03:58] VITALS: BP 130/59; PULSE 68; RESP 16; TEMP 36.4; O2SAT 97
[2024-03-31 07:42] VITALS: BP 150/67; PULSE 65; RESP 18; TEMP 36.6; O2SAT 95
[2024-03-31 08:15] LABS: Anion Gap 15 (12-20); Blood Urea Nitrogen 37 mg/dL (9-16); Calcium 8.9 mg/dL (8.4-10.2); Carbon Dioxide 24 mmol/L (22-29); Chloride 107 mmol/L (96-108); Creatinine Clr Calc Pharmacy 50.8; Estimated Glomerular Filt Rate 51; Glucose Fasting 93 mg/dL (60-99); Magnesium 2.2 mg/dL (1.6-2.6); Potassium 3.6 mmol/L (3.3-5.1); Sodium 142 mmol/L (135-145)
[2024-03-31 08:19] LABS: Hemoglobin 12.9 g/dl (12.0-16.0); Mean Corpuscular HGB Conc 32.3 g/dl (31.0-35.0); Mean Corpuscular Hemoglobin 28.7 pg (27.0-33.0); Mean Corpuscular Volume 89.1 fL (80.0-98.0); Mean Platelet Volume 12.3 fL (9.4-12.3); Platelet Count 186 X10*3/uL (160-400); Red Blood Count 4.49 X10*6/uL (4.20-5.50); Red Cell Distribution Width 16.3 % (11.0-16.0); White Blood Count 11.6 X10*3/uL (4.8-10.8)
[2024-03-31 08:39] VITALS: BP 150/67; PULSE 65
[2024-03-31] MEDS: carvediloL 25 MG TABLET PO (08:39)
[2024-03-31] MEDS: Escitalopram Oxalate 10 MG TABLET PO (08:39)
[2024-03-31] MEDS: 0.9 % Sodium Chloride Flush 3 ML SYRINGE IVFLUSH (08:39)
[2024-03-31] MEDS: Furosemide 40 MG/4 ML VIAL IVPUSH (08:39)
[2024-03-31 09:03] LABS: Glucose, Whole Blood 94 mg/dL (60-115)
--- NOTE | 2024-03-31 10:20 | P.DS_ITS ---
DS: Providers Provider Date of Service: 03/31/24 Date of admission: 03/29/24 15:02 Date of discharge: 03/31/24 Primary care physician: Carmina Martins MD Consults: 03/29/24 14:59 Consult to Cardiology Routine Consulting Provider: [facility] Reason for consultation: CHF DS: Diagnosis Discharge Diagnosis (1) Acute exacerbation of CHF (congestive heart failure): Status: Acute DS: Summary Hospital Course Hospital Course: from initial hpi: 69 year old women presenting with 3 days of increasing sob and URI. She denied fever, chills, nausea, vomiting, diarrhea but reported increased shortness breath and her CPAP broke and she was unable to use it for at least 48 hours. She was to have a history of cardiomyopathy, congestive heart failure and COPD. Elevated troponin, paced EKG no acute ischemic changes noted and patient is chest pain-free. According to EMS patient's oxygen saturation was below 80% on room air and she is not normally on oxygen. In the ER, Troponin was 478.5 with repeat of 507.8, BNP 1801, chest x-ray showing mild diffuse increased interstitial markings with no focal consolidation or pleural effusions. In the ER she received ceftriaxone, azithromycin, magnesium, Solu-Medrol, albuterol, azithromycin, IV Lasix, IV insulin. She will be admitted for further management and treatment of acute respiratory failure secondary to CHF and COPD and possible bronchitis. hospital course: Patient was admitted for acute hypoxic respiratory failure due to acute on chronic systolic CHF and COPD with acute decompensation. She was treated with IV Lasix, ceftriaxone, azithromycin, Solu-Medrol, DuoNebs. Patient diuresed well and was weaned off oxygen. Shortness of breath significantly improved. Was seen by Cardiology recommended increasing maintenance Lasix to 40 mg p.o. b.i.d. was continued on Coreg and Entresto. For coronary disease was continued on Xarelto and statin. For morbid obesity weight loss recommended. For history of PE was continued on Xarelto. For TAQUERIA uses CPAP at night, patient noted malfunction of her tubing and has ordered new set. For diabetes with hyperglycemia was continued on basal bolus insulin. Patient is feeling better will be discharged home on 5 more days of prednisone and azithromycin. Time Attestation Discharge Coordination Time (in mins): 35 Quality: Safe Use of Opioids Does Pt have an Active Cancer Diagnosis on the Problem List?: No Quality: Stroke Does the patient have a stroke diagnosis?: No Physical Exam Vital Signs: Vital Signs: Last Vital Signs Temp 97.8 F 03/31/24 07:42 Pulse 65 03/31/24 08:39 Resp 18 03/31/24 07:42 BP 150/67 H 03/31/24 08:39 Pulse Ox 95 03/31/24 07:42 O2 Del Method Room Air 03/31/24 07:42 O2 Flow Rate 2 03/30/24 07:56 BMI result Body Mass Index 47.5 General: AO X 3, no acute distress Resp: CTA bilateral, no accessory muscles used CVS: S1,S2,RRR GI: soft, non tender, non distended Neuro: motor grossly intact, alert Psych: appropriate affect, appropriate insight DS: Data Data Completed and Pending Completed studies during hospitalization [Text1]: Procedures Assistance with Respiratory Ventilation, Less than 24 Consecutive Hours, Continuous Positive Airway Pressure (08/14/23) Dilation of Right Ureter with Intraluminal Device, Via Natural or Artificial Opening Endoscopic (02/09/24) Fluoroscopy of Right Kidney, Ureter and Bladder (02/09/24) Insertion of Infusion Device into Superior Vena Cava, Percutaneous Approach (02/09/24) Introduction of Vasopressor into Peripheral Vein, Percutaneous Approach (02/09/24) Ultrasonography of Superior Vena Cava, Guidance (02/09/24) Labs on day of discharge: Laboratory Results - last 24 hr 03/30/24 03/30/24 03/31/24 13:52 20:34 07:26 WBC RBC Hgb Hct MCV MCH MCHC RDW Plt Count MPV Absolute Nucleated RBC Nucleated RBC % (auto) Sodium Potassium Chloride Carbon Dioxide Anion Gap BUN Creatinine Estim Creat Clear Calc Estimated GFR POC Glucose 227 H 151 H 94 Fasting Glucose Calcium Magnesium 03/31/24 07:39 WBC 11.6 H RBC 4.49 Hgb 12.9 Hct 40.0 MCV 89.1 MCH 28.7 MCHC 32.3 RDW 16.3 H Plt Count 186 MPV 12.3 Absolute Nucleated RBC 0.000 Nucleated RBC % (auto) 0.0 Sodium 142 Potassium 3.6 Chloride 107 Carbon Dioxide 24 Anion Gap 15 BUN 37 H Creatinine 1.07 Estim Creat Clear Calc 50.8 Estimated GFR 51 POC Glucose Fasting Glucose 93 Calcium 8.9 Magnesium 2.2 Preliminary micro results at discharge 03/29/24 02:13 Blood Culture - Preliminary Blood - Venous No growth after 48 hours. 03/29/24 02:02 Blood Culture - Preliminary Blood - Venous No growth after 48 hours. Discharge Plan Discharge Anticipated Discharge Date/Time: 03/31/24 10:17 Patient Disposition: Home, Self-Care Discharge Diagnosis: copd, chf Referrals: Carmina Varela MD [Primary Care Provider] - 1 Week Discharge Medications: New prednisone 20 mg tablet 40 mg PO DAILY Qty: 10 0RF azithromycin 500 mg tablet 500 mg PO DAILY 5 Days Qty: 5 0RF Continued citalopram 20 mg tablet 20 mg PO DAILY Xarelto 20 mg tablet 20 mg PO DAILY@1700 ZzzQuil 50 mg/30 mL Liquid 50 mg PO BEDTIME PRN (Reason: Sleep) insulin glargine [Lantus Solostar U-100 Insulin] 100 unit/mL (3 mL) insulin pen 28 unit subcut BEDTIME carvedilol 25 mg Tablet 25 mg PO BID Rx Instructions: must administer with a meal/food Jardiance 25 mg Tablet 25 mg PO DAILY Entresto 97-103 mg Tablet 1 tab PO BID Combivent Respimat 20-100 mcg/actuation mist 1 puff INHALATION QID PRN (Reason: wheezing) insulin aspart U-100 100 unit/mL (3 mL) insulin pen 1 sliding scale dose subcut TIDAC atorvastatin 80 mg tablet 80 mg PO BEDTIME Changed furosemide 40 mg Tablet 40 mg PO BID Qty: 180 0RF Discharge Orders: Discharge Order (Routine); Ordered 03/31/24 Ordered By: Brandon Mack Diet: Advance to usual diet Activity on Discharge: As tolerated Stand Alone Forms: Patient Portal Discharge page Print Language: Macedonian Care Plan Goals: recovery Health Concerns: chf copd Plan of Treatment: increase lasix to 40mg bid, 5 days prednisone and azithro Assessment: see above
--- NOTE | 2024-03-31 10:31 | PM.PNCARD ---
Subjective Subjective Date of Service: 03/31/24 Interval history: Seen and examined at bedside. Feeling much better. Physical Exam Vital Signs: Last Vital Signs Temp 97.8 F 03/31/24 07:42 Pulse 65 03/31/24 08:39 Resp 18 03/31/24 07:42 BP 150/67 H 03/31/24 08:39 Pulse Ox 95 03/31/24 07:42 O2 Del Method Room Air 03/31/24 07:42 O2 Flow Rate 2 03/30/24 07:56 BMI result Body Mass Index 47.5 GENERAL APPEARANCE: in no acute distress, pleasant. NECK: no carotid bruit, no jugular venous distention. SKIN: no suspicious lesions, warm and dry. HEART: no murmurs, regular rate and rhythm. LUNGS: Clear to auscultation. ABDOMEN: soft, nontender. EXTREMITIES: no edema. PERIPHERAL PULSES: equal. NEUROLOGIC: No gross deficits, AAO X 3 Objective Labs and Meds 03/31/24 07:39 03/31/24 07:39 Lab results: Laboratory Results - last 24 hr 03/30/24 03/30/24 03/31/24 13:52 20:34 07:26 WBC RBC Hgb Hct MCV MCH MCHC RDW Plt Count MPV Absolute Nucleated RBC Nucleated RBC % (auto) Sodium Potassium Chloride Carbon Dioxide Anion Gap BUN Creatinine Estim Creat Clear Calc Estimated GFR POC Glucose 227 H 151 H 94 Fasting Glucose Calcium Magnesium 03/31/24 07:39 WBC 11.6 H RBC 4.49 Hgb 12.9 Hct 40.0 MCV 89.1 MCH 28.7 MCHC 32.3 RDW 16.3 H Plt Count 186 MPV 12.3 Absolute Nucleated RBC 0.000 Nucleated RBC % (auto) 0.0 Sodium 142 Potassium 3.6 Chloride 107 Carbon Dioxide 24 Anion Gap 15 BUN 37 H Creatinine 1.07 Estim Creat Clear Calc 50.8 Estimated GFR 51 POC Glucose Fasting Glucose 93 Calcium 8.9 Magnesium 2.2 Progress Note: A&P Assessment and plan (1) Acute exacerbation of CHF (congestive heart failure): Status: Acute Plan Pleasant 69 year female with known history of coronary artery disease per his post bypass surgery and cardiomyopathy with EF 30 35% presenting with shortness of breath and congestive heart failure. She is been diuresed and clinically stable. Change Lasix to 40 mg p.o. b.i.d.. Continue Entresto and carvedilol as before. She is on Jardiance 25 mg daily. On Xarelto for anticoagulation. Signing off. Thank you for allowing me to participate in the care of your patient. Please feel free to contact me if you have any questions. Time Spent With Patient Time: Total time managing care of this patient today ____ minutes. Progress Note: Quality Stroke Does the patient have a stroke diagnosis?: No Procedures Date of Service Date of Service: 03/31/24
--- NOTE | 2024-03-31 11:35 | MHC.CM.PN ---
Pt has been medically cleared for DC, [place] [facility] [place], plan is: self care.
[2024-03-31 11:44] LABS: Glucose, Whole Blood 126 mg/dL (60-115)
== END 2024-03-31 13:36 | disposition home or self-care (01) | DRG 291 ==
LOC: HO.ED 06:42 → HO.EDOVER 15:14 → HO.IMC 03-30 16:20
PROVIDERS: Admitting Provider Nurse Practitioner Acute Care; Emergency Provider Emergency Medicine; PCP Internal Medicine; Visit Provider Internal Medicine
DX: I11.0 Hypertensive heart disease with heart failure (principal); I50.23 Acute on chronic systolic (congestive) heart failure; J96.01 Acute respiratory failure with hypoxia; J44.1 Chronic obstructive pulmonary disease with (acute) exacerbation; Z68.42 Body mass index [BMI] 45.0-49.9, adult; E66.01 Morbid (severe) obesity due to excess calories; Z71.6 Tobacco abuse counseling; I25.10 Atherosclerotic heart disease of native coronary artery without angina pectoris; G47.33 Obstructive sleep apnea (adult) (pediatric); E11.65 Type 2 diabetes mellitus with hyperglycemia; Z20.822 Contact with and (suspected) exposure to COVID-19; Z95.810 Presence of automatic (implantable) cardiac defibrillator; Z86.711 Personal history of pulmonary embolism; Z91.199 Patient's noncompliance with other medical treatment and regimen due to unspecified reason; Z95.1 Presence of aortocoronary bypass graft; Z79.4 Long term (current) use of insulin; Z79.01 Long term (current) use of anticoagulants; Z79.899 Other long term (current) drug therapy
CPT/HCPCS: 0241U; 36415; 71045; 80048; 80053; 80076; 80307; 82010; 82803; 82947; 83605; 83735; 83880; 84484; 85025; 85027; 85610; 87040; 93005; 93306; 94640; 94660; 99285; J0456; J0696; J1940; J2919; J3475; P9047; Q9957

== ENCOUNTER → 2024-03-29 01:36 | Outpatient (BNV) | payer OTHER, SELFPAY ==
[2021-10-15 11:10] VITALS: BP 110/70; BMI 46.0
== END ==
PROVIDERS: Emergency Provider Emergency Medicine; PCP Internal Medicine; Visit Provider Internal Medicine Cardiovascular Disease
DX: I50.9 Heart failure, unspecified (principal); R94.31 Abnormal electrocardiogram [ECG] [EKG]; Z95.0 Presence of cardiac pacemaker
CPT/HCPCS: 93010; 93306

== ENCOUNTER → 2024-03-29 15:02 | Outpatient (BNV) | payer OTHER, SELFPAY ==
[2021-10-15 11:10] VITALS: BP 110/70; BMI 46.0
== END ==
PROVIDERS: Admitting Provider Nurse Practitioner Acute Care; Emergency Provider Emergency Medicine; PCP Internal Medicine; Visit Provider Internal Medicine Cardiovascular Disease
DX: I50.9 Heart failure, unspecified (principal)
CPT/HCPCS: 99223; 99232

== ENCOUNTER → 2024-03-29 15:02 | Outpatient (BNV) | payer OTHER, SELFPAY ==
[2021-10-15 11:10] VITALS: BP 110/70; BMI 46.0
== END ==
PROVIDERS: Admitting Provider Nurse Practitioner Acute Care; Emergency Provider Emergency Medicine; PCP Internal Medicine; Visit Provider Nurse Practitioner Acute Care
DX: I50.9 Heart failure, unspecified (principal)
CPT/HCPCS: 99223; 99232; 99239

== ENCOUNTER 2024-04-10 16:19 | Emergency (ER) | payer OTHER, SELFPAY ==
[2021-10-15 11:10] VITALS: BP 110/70; BMI 46.0
[2024-04-10] VITALS (7 sets, daily range): BP systolic 103–160; BP diastolic 49–80; PULSE 71–90; RESP 12–19; TEMP 36.6–37.1; O2SAT 95–98; BMI 42.1
--- NOTE | ~2024-04-10 | CT_ITS ---
EXAMINATION: IV contrast enhanced CT angiography of the head and neck; delayed IV contrast-enhanced CT the head CLINICAL INFORMATION: Trauma. Decreased right posterior parietal region attenuation noted on CT of the head 04/10/2024. COMPARISON: CT head and cervical spine 04/10/2024. CT head 09/17/2016 TECHNIQUE: IV contrast enhanced CT angiography of the head and neck with multiple 3-D reformatted angiographic thick section MIPS images processed on the technologist workstation under concurrent supervision; delayed IV contrast-enhanced CT the head. Vascular stenoses are made with reference to the NASCET criteria less otherwise specified. This CT examination was performed using dose optimization techniques as appropriate, variously including the following: *Automated exposure control *Adjustment of mA and/or kV according to patient size (this includes techniques or standardized protocols for targeted exams where dose is matched to indication/reason for exam; i.e. extremities or head) *Use of iterative reconstruction technique Intravenous Contrast: Omnipaque 350 70 mL DLP: 1440 mGy-cm FINDINGS: IV contrast and CT of the head: Mild focal cortical and subcortical hypodensity is present in the left occipital lobe. Similar findings are noted in the 09/17/2016 examination and 04/10/2024 examination. Additionally, focal cortical and subcortical encephalomalacia over an approximate 3 cm diameter region is present in the left superior parietal lobule similar to findings present 09/17/2016 and 04/10/2024. Elsewhere, mild diffuse commensurate prominence of the ventricles and sulci is noted. No intracranial hemorrhage, tumors or definitive acute infarcts identified. Mild scattered subcortical and periventricular white matter patchy hypodensities are visualized and may represent chronic microangiopathic ischemic changes. No extracranial soft tissue inflammatory changes. Bilateral ocular lens replacements. No significant opacification of the visualized paranasal sinuses, mastoid air cells and middle ear cavities. . Mild hyperostosis frontalis interna. CT angiography neck: Images are suboptimal secondary to suboptimal intravenous contrast bolus timing. Conventional branching anatomy of the great vessels in relation to the transverse aorta. Nonocclusive calcific plaques within the transverse aorta and origins of the great vessels. Moderate (50%) focal stenosis of the origin of the right internal carotid artery secondary to concentric dense calcific and noncalcific atherosclerotic plaque. Moderate (50% focal stenosis of the origin of the left internal carotid artery secondary to dense concentric calcific atherosclerotic plaque. Nonocclusive calcific and noncalcific plaque is present segmentally within the left and right common carotid arteries. Ostial calcifications which appear nonocclusive or noted in association with the left and right vertebral arteries. Minimal scattered nonocclusive calcific plaque is present in the left vertebral artery cervical segments. CT angiography head: Images are suboptimal secondary to motion artifact and suboptimal IV contrast timing bolus. Partial visualization is made of moderate appearing segmental calcific plaques within the cavernous portions of the internal carotid arteries. Images are significantly degraded by motion artifact in the region of the [place]. No large vessel intracranial occlusions identified. No gross aneurysms identified. However, motion artifact precludes visualization of possible aneurysms. The visualization is made of a left pectoral atrioventricular pacer and multiple median sternotomy wires. Partial visualization is made of least moderate-marked diffuse coronary artery calcific atherosclerosis in situ pressure monitoring device is partially included on imaged field of view within the left lower lobe pulmonary artery. No cervical lymphadenopathy. Images are diffusely suboptimal secondary to motion artifact. Visualization is made of multilevel facet and endplate hypertrophic changes of the cervical spine. CT/CT angio head neck STROKE IMPRESSION: IV contrast-enhanced CT of the head: *No acute intracranial abnormalities. 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 *Chronic focal infarct within the left occipital lobe similar to findings present 09/17/2016 CT angiography head and neck: *Suboptimal examination secondary to motion artifact and suboptimal IV contrast bolus timing. *Moderate (50%) focal stenoses of the proximal left and right internal carotid artery secondary to concentric calcific atherosclerotic plaque. *No intracranial large vessel occlusions. *Partial visualization of at least moderate-marked diffuse coronary artery calcific atherosclerosis. Electronically signed by: Lane Webster MD 04/11/2024 12:55 AM [facility]
--- NOTE | ~2024-04-10 | CT_ITS ---
EXAMINATION: CT scan of the head and CT of the cervical spine CLINICAL INFORMATION: Trauma COMPARISON: CT scan of the head and cervical spine August 2016 TECHNIQUE: CT scan of the head and cervical spine with reconstruction imaging performed at the acquisition workstation. FINDINGS: There is decreased attenuation in the right posterior parietal region slightly more prominent than that noted on the prior CT in 2017. The parenchyma is otherwise unremarkable other than periventricular white matter changes compatible small vessel disease. Ventricles normal. There is no mass or hemorrhage. Sinuses clear. Mastoid air cells clear CERVICAL SPINE: Vertebral body height normal. Slight loss of usual cervical lordosis but unchanged. Multilevel degenerative disc changes with endplate osteophytes and mild disc space narrowing most evident at the C5-C6 C6-C7 levels. Facets normal. Surrounding soft tissues normal. Arterial calcification noted. Lung apices normal. CT/CT head/brain wo IV con IMPRESSION: 1. Decreased attenuation in the right posterior parietal region slightly more prominent than that noted on the prior CT in 2017. This is nonspecific but could reflect a chronic or recurrent evolving infarct. Correlate clinically. Consider follow-up CT or MRI. Characterize if felt clinically necessary. 2. 3. Stable spondylosis of the cervical spine. Electronically signed by: Navjot Lombardi MD 04/10/2024 06:52 PM EST
--- NOTE | ~2024-04-10 | CT_ITS ---
EXAMINATION: CT scan of the head and CT of the cervical spine CLINICAL INFORMATION: Trauma COMPARISON: CT scan of the head and cervical spine August 2016 TECHNIQUE: CT scan of the head and cervical spine with reconstruction imaging performed at the acquisition workstation. FINDINGS: There is decreased attenuation in the right posterior parietal region slightly more prominent than that noted on the prior CT in 2017. The parenchyma is otherwise unremarkable other than periventricular white matter changes compatible small vessel disease. Ventricles normal. There is no mass or hemorrhage. Sinuses clear. Mastoid air cells clear CERVICAL SPINE: Vertebral body height normal. Slight loss of usual cervical lordosis but unchanged. Multilevel degenerative disc changes with endplate osteophytes and mild disc space narrowing most evident at the C5-C6 C6-C7 levels. Facets normal. Surrounding soft tissues normal. Arterial calcification noted. Lung apices normal. CT/CT cervical spine wo IV con IMPRESSION: 1. Decreased attenuation in the right posterior parietal region slightly more prominent than that noted on the prior CT in 2017. This is nonspecific but could reflect a chronic or recurrent evolving infarct. Correlate clinically. Consider follow-up CT or MRI. Characterize if felt clinically necessary. 2. 3. Stable spondylosis of the cervical spine. Electronically signed by: Navjot Lombardi MD 04/10/2024 06:52 PM EST
[2024-04-10 17:02] LABS: MANUAL DIFF FLAG NO
[2024-04-10 17:06] LABS: Basophils Absolute Auto 0.1 X10*3/uL (0.0-0.2); Basophils Percent Auto 0.5 % (0-2); Eosinophils Absolute Auto 0.3 X10*3/uL (0.0-0.4); Hematocrit 44.7 % (37.0-47.0); Hemoglobin 14.7 g/dl (12.0-16.0); Imm Gran Abs Auto 0.06 X10*3/uL (0.00-0.03); Imm Gran Pct Auto 0.5 % (0.0-0.4); Lymphocytes Absolute Auto 4.2 X10*3/uL (1.2-4.9); Lymphocytes Percent Auto 32.6 % (20-40); Mean Corpuscular HGB Conc 32.9 g/dl (31.0-35.0); Mean Corpuscular Hemoglobin 29.3 pg (27.0-33.0); Mean Platelet Volume 12.1 fL (9.4-12.3); Monocytes Absolute Auto 0.7 X10*3/uL (0.1-1.2); Monocytes Percent Auto 5.2 % (2-11); Neutrophils Absolute Auto 7.6 x10*3/uL (2.0-8.3); Neutrophils Percent Auto 59.2 % (45-73); Platelet Count 139 X10*3/uL (160-400); Red Blood Count 5.02 X10*6/uL (4.20-5.50); Red Cell Distribution Width 16.3 % (11.0-16.0); White Blood Count 12.8 X10*3/uL (4.8-10.8)
[2024-04-10 17:21] LABS: Appearance Urine Turbid; Color Urine Yellow; Glucose Urine UA >=1000 mg/dL (Negative); Leukocyte Esterase Urine Large (3+) (Negative); Nitrite Urine Positive (Negative); UMIC TRIGGER UACC YES; Urine Blood Moderate (2+) (Negative); Urine Ketones Negative (Negative); Urine Protein 100 (2+) mg/dL (Neg-Trace)
[2024-04-10 17:24] LABS: Alanine Aminotransferase 13 U/L (0-31); Albumin Level 3.7 g/dL (3.5-5.0); Alkaline Phosphatase 103 U/L (39-117); Anion Gap 12 (12-20); Aspartate Amino Transferase 23 U/L (5-31); Bilirubin Total 0.8 mg/dL (0.0-1.0); Blood Urea Nitrogen 25 mg/dL (9-16); Calcium 9.2 mg/dL (8.4-10.2); Carbon Dioxide 25 mmol/L (22-29); Chloride 106 mmol/L (96-108); Creatinine Clr Calc Pharmacy 42.8; Estimated Glomerular Filt Rate 43; Glucose Random 209 mg/dL (60-115); Magnesium 2.3 mg/dL (1.6-2.6); Potassium 4.1 mmol/L (3.3-5.1); Sodium 139 mmol/L (135-145)
--- NOTE | 2024-04-10 17:42 | PC.NURSE ---
Patient is alert but confused at times, patient states felling off since yesterday. Hand grasp strong and equal, leg lefts strong and equal, PERRLA. Denies any chest pain or SOB. c/o of 5/10 pain in head. OOB to commode with minimal assist. 20G IV in left hand.
[2024-04-10 17:44] LABS: Influenza A PCR NEGATIVE (Negative); Influenza B PCR NEGATIVE (Negative); Resp Syncy Virus RNA Qual PCR NEGATIVE (Negative); SARS COV2 PCR INHOUSE NEGATIVE (Negative)
[2024-04-10 17:48] LABS: Bacteria Urine 4+ (None Seen); Squamous Epithelial Cell Urine 0-2 /HPF (0-2); UACC Culture Trigger YES; WBC Urine >50 /HPF (0-5)
[2024-04-10] MEDS: iohexoL 350 MG/ML 100 ML INFUS..BTL IV (18:37)
--- NOTE | 2024-04-10 19:26 | PC.NURSE ---
This RN assumed pt care @ 1900. Pt a&ox4, no signs of distress Pt resting in bed comfortably Plan of care ongoing.
[2024-04-10] MEDS: cephALEXin 500 MG CAPSULE PO (20:31)
[2024-04-10] MEDS: Acetaminophen 325 MG TABLET 975 MG PO (20:31)
--- NOTE | 2024-04-10 20:34 | PC.NURSE ---
Pt requested and given Acetaminophen for headache. Pt medicated per jun Pt requested and updated on plan, pt advised waiting on CTA results. Plan of care ongoing.
--- NOTE | 2024-04-10 22:37 | PC.NURSE ---
Pt ambulates to restroom with a steady gait. Plan of care ongoing.
--- NOTE | 2024-04-10 23:03 | PC.NURSE ---
Pt attached to bedside monitor. Plan of care ongoing.
--- NOTE | 2024-04-11 00:18 | MHC.EDTECH ---
contacted [facility] told them we have been waiting 6 hours on STAT Angio CT for stroke patient
[2024-04-11 01:14] VITALS: BP 121/53; PULSE 67; RESP 16; TEMP 36.4
--- NOTE | 2024-04-11 01:16 | ED.GENADULT ---
HPI - General Adult General Chief complaint: General Medical Stated complaint: PT HIT HEAD AND CANT DO SIMPL TASKS ANYMORE-EMS Time Seen by Provider: 04/10/24 16:48 Source: patient Limitations: no limitations History of Present Illness ED Provider: Vernell Locke PA-C HPI narrative: 69-year-old female with a history of hypertension, hyperlipidemia, diabetes, coronary artery disease, cardiomyopathy, acute on chronic systolic and diastolic heart failure now status post biventricular ICD, COPD/asthma, presents with head trauma. Patient states she quickly bent over to filler picker something, and subsequently struck her forehead with a full force on a table. Incident happened this morning, there was no loss of consciousness, the patient did not fall. Patient states she has been intermittently dizzy since the episode. Patient does take Xarelto. Patient also states that over the past day and a half, she has noted that she can not ?figure out how to perform simple tasks ; for example, patient was trying to filler picker a coffee cup, and she simply could not navigate how to filler picker the cup. In addition, she has noticed word-finding difficulty; she was having a conversation with her daughter, and she simply could not explain herself or find the words to describe what she was trying to relay to her daughter. These episodes are intermittent. Denies weakness of upper or lower extremities, paresthesia, speech impediment. Related Data Home Medications ?Medication ?Instructions ?Recorded ?Confirmed atorvastatin 80 mg tablet 80 mg PO BEDTIME 02/27/20 03/29/24 insulin aspart U-100 100 unit/mL 1 sliding scale dose subcut TIDAC 06/26/20 03/29/24 (3 mL) subcutaneous pen citalopram 20 mg tablet 20 mg PO DAILY 07/21/20 03/29/24 rivaroxaban 20 mg tablet (Xarelto) 20 mg PO DAILY@1700 08/14/23 03/29/24 diphenhydramine HCl 50 mg/30 mL 50 mg PO BEDTIME PRN Sleep 08/15/23 03/29/24 oral liquid (ZzzQuil) insulin glargine 100 unit/mL (3 28 unit subcut BEDTIME 02/04/24 03/29/24 mL) subcutaneous pen (Lantus Solostar U-100 Insulin) carvedilol 25 mg tablet 25 mg PO BID 02/09/24 03/29/24 empagliflozin 25 mg tablet 25 mg PO DAILY 02/09/24 03/29/24 (Jardiance) sacubitril 97 mg-valsartan 103 mg 1 tab PO BID 02/09/24 03/29/24 tablet (Entresto) ipratropium 20 mcg-albuterol 100 1 puff inhalation QID PRN wheezing 03/29/24 03/29/24 mcg/actuation mist for inhalation (Combivent Respimat) Previous Rx's ?Medication ?Instructions ?Recorded azithromycin 500 mg tablet 500 mg PO DAILY 5 days #5 tabs 03/31/24 prednisone 20 mg tablet 40 mg (2 x 20 mg) PO DAILY #10 tabs 03/31/24 furosemide 40 mg tablet 40 mg PO BID #180 tabs 04/08/24 cefuroxime axetil 250 mg tablet 250 mg PO Q12H 7 days #14 tabs 04/11/24 Allergies Allergy/AdvReac Type Severity Reaction Status Date / Time No Known Allergies Allergy Verified 04/10/24 16:44 Review of Systems Review of Systems: Yes all other systems are reviewed and are negative Constitutional: Constitutional: Denies fatigue and Denies fever(s) ENT: Reports dizziness Cardiovascular: Cardiovascular: Denies chest pain and Denies dyspnea Respiratory: Respiratory: Denies dyspnea Gastrointestinal: Gastrointestinal: Denies abdominal pain and Denies nausea Musculoskeletal: Musculoskeletal: Denies muscle weakness, Denies numbness and Denies tingling Neurologic: Denies Abnormal speech present, Denies confusion, Reports dizziness, Denies numbness and Denies tingling Psychiatric: Psychiatric: Denies confusion Endocrine: Endocrine: Denies fatigue [facility] Past Medical History Attestation statement: The following information was validated with the patient. Medical History CHF (congestive heart failure) Sleep apnea Presence of CardioMEMS HF system Hx of myocardial infarction Anxiety and depression Osteoarthritis Fatty liver Restrictive lung disease TAQUERIA treated with BiPAP Morbid obesity Biventricular ICD (implantable cardioverter-defibrillator) in place CAD (coronary artery disease) Non-rheumatic aortic stenosis Atherosclerotic cardiovascular disease Acute on chronic systolic and diastolic heart failure, NYHA class 3 Leukocytosis Dyspnea Transaminitis Hypoxia Congestive heart failure TAQUERIA (obstructive sleep apnea) NSVT (nonsustained ventricular tachycardia) Cardiomyopathy Chronic systolic heart failure Diabetes mellitus HLD (hyperlipidemia) HTN (hypertension) Surgical History History of incision and drainage Status post coronary artery bypass graft Stented coronary artery Hx of CABG History of cardiac cath Hx of cardiac cath Hx of cardiac cath Hx of appendectomy History of cholecystectomy Family History Family History Father No problems noted. Mother No problems noted. Social History Social History Household Members: Family Household Members Other:: son and daughter in law Housing: Apartment Are you a primary healthcare science specialist to a significant other at home: No Do you presently have visiting nurse or other home services: No Alcohol intake: never Comment: chronic back pain Patient Tobacco Use Status: Never used Tobacco Tobacco use type: Cigarette Cigarette Packs Per Day: 1 Years Smoked: 30 Smoked in Last 30 Days: Yes e-Cigarette/Vaping Use: Never Used Second Hand Smoke Exposure: Yes Use of substances other than those prescribed or required for medical reasons: No Advance Directives: Yes Advance Directives on File: Yes Advance Directives Date on File: 11/07/22 service: No Current occupational status: unemployed and disabled Current occupation: rt hand Physical Exam ED Vital Signs: Vital Signs - 24 hr 04/10/24 18:24 04/10/24 18:58 04/10/24 20:30 Temperature 98.3 F 97.8 F 98.1 F Pulse Rate 71 73 80 Respiratory Rate 15 12 12 Blood Pressure 142/73 H 140/49 H 147/57 H Pulse Oximetry 97 97 97 Oxygen Delivery Method Room Air Room Air Room Air 04/10/24 22:17 04/11/24 01:14 04/11/24 01:34 Temperature 97.8 F 97.6 F 97.6 F Pulse Rate 74 67 67 Respiratory Rate 19 16 12 Blood Pressure 103/54 L 121/53 L 121/53 L Pulse Oximetry 97 98 Oxygen Delivery Method Room Air Room Air BMI result Body Mass Index 42.1 Const Other: Alert, overall well appearing General: No confusion Orientation/consciousness: patient oriented x3 and No confusion Neck Other: Full range of motion no midline tenderness Resp Other: Nonlabored respiration Cardio Other: Normal peripheral perfusion Skin Other: Warm dry no rash Neuro Other: Normal gait, no ataxia, normal proprioception, patient can easily filler picker objects today, she is not having either expressive or receptive aphasia during the exam General: patient oriented x3, gait normal, no focal motor deficits, CN's II-XI intact bilaterally and No confusion Speech: No Abnormal speech present Psych Other: Calm cooperative NIH Stroke Scale Time: 16:30 Level of Consciousness: Alert Level of Consciousness Questions: Answers both questions correctly Level of Consciousness Commands: Performs both tasks correctly Best Gaze: Normal Visual: No visual loss Facial Palsy: Normal Motor Arm (Right): No drift Motor Arm (Left): No drift Motor Leg (Right): No drift Motor Leg (Left): No drift Limb Ataxia: Absent Sensory: Normal Best Language: No aphasia Dysarthia: Normal Extinction and Inattention: No abnormality Score: 0 Course Reevaluation(s) Reevaluation #1: Discussed results with the patient, that she has evidence of 2 old infarcts. There are no additional acute issues. The patient is opting to follow up with her primary care provider for further outpatient assessment, versus admission. Medications Administered Discontinued Medications Generic Name Dose Route Start Last Admin Trade Name Freq PRN Reason Stop Dose Admin Acetaminophen 975 mg 04/10/24 20:22 04/10/24 20:31 Acetaminophen 325 Mg Tablet PO 04/10/24 20:23 975 mg ONCE ONE Administration Cephalexin HCl 500 mg 04/10/24 20:04 04/10/24 20:31 Cephalexin 500 Mg Capsule PO 04/10/24 20:05 500 mg ONCE ONE Administration Iohexol 100 ml 04/10/24 18:33 04/10/24 18:37 Iohexol 350 Mg/Ml 100 Ml Infus..Btl IV 04/10/24 18:34 70 ml ONCE ONE Administration Medical Decision Making Medical Decision Making MDM Narrative: 69-year-old female with a history of hypertension, hyperlipidemia, diabetes, coronary artery disease, cardiomyopathy, acute on chronic systolic and diastolic heart failure now status post biventricular ICD, COPD/asthma, presents with head trauma. Patient states she quickly bent over to filler picker something, and subsequently struck her forehead with a full force on a table. Incident happened this morning, there was no loss of consciousness, the patient did not fall. Patient states she has been intermittently dizzy since the episode. Patient does take Xarelto. Patient also states that over the past day and a half, she has noted that she can not ?figure out how to perform simple tasks ; for example, patient was trying to filler picker a coffee cup, and she simply could not navigate how to filler picker the cup. In addition, she has noticed word-finding difficulty; she was having a conversation with her daughter, and she simply could not explain herself or find the words to describe what she was trying to relay to her daughter. These episodes are intermittent. Denies weakness of upper or lower extremities, paresthesia, speech impediment. Problem: Vascular disease, diabetes , use of anticoagulation History: Per patient I have considered the following differential diagnoses: Intracranial hemorrhage, cervical spine injury, CVA, TIA, concussion Plan: Given the patient's anticoagulated, a CT of the brain and cervical sprain were ordered given the head trauma. It is reassuring that she is neurologically intact, not actively vomiting, to suggest an intracranial hemorrhage. She also has full range of motion of the neck and is not complaining of neck pain, cervical spine injury less likely as well. From what the patient is describing, she is having intermittent episodes of expressive aphasia with issues with proprioception. She is out of the window for intervention, however I we will be obtaining CT angiograms of her head and neck. Screening labs including a urinalysis we will be obtained. I have independently reviewed the following tests: Labs: Slight leukocytosis with left shift, not anemic, no electrolyte abnormality..... Patient has a urinary tract infection, we will treat with cephalexin CT brain and cervical spine: CT/CT head/brain wo IV con IMPRESSION: 1. Decreased attenuation in the right posterior parietal region slightly more prominent than that noted on the prior CT in 2017. This is nonspecific but could reflect a chronic or recurrent evolving infarct. Correlate clinically. Consider follow-up CT or MRI. Characterize if felt clinically necessary. 2. 3. Stable spondylosis of the cervical spine. CT angiogram head and neck: CT/CT angio head neck STROKE IMPRESSION: IV contrast-enhanced CT of the head: *No acute intracranial abnormalities. 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 *Chronic focal infarct within the left occipital lobe similar to findings present 09/17/2016 CT angiography head and neck: *Suboptimal examination secondary to motion artifact and suboptimal IV contrast bolus timing. *Moderate (50%) focal stenoses of the proximal left and right internal carotid artery secondary to concentric calcific atherosclerotic plaque. *No intracranial large vessel occlusions. *Partial visualization of at least moderate-marked diffuse coronary artery calcific atherosclerosis. Electronically signed by: Lane Webster MD 04/11/2024 12:55 AM [facility] [place] Data 04/10/24 16:58 04/10/24 16:58 Labs: Lab Results 04/10/24 04/10/24 04/10/24 Range/Units 16:56 16:58 17:11 WBC 12.8 H (4.8-10.8) X10*3/uL RBC 5.02 (4.20-5.50) X10*6/uL Hgb 14.7 (12.0-16.0) g/dl Hct 44.7 (37.0-47.0) % MCV 89.0 (80.0-98.0) fL MCH 29.3 (27.0-33.0) pg MCHC 32.9 (31.0-35.0) g/dl RDW 16.3 H (11.0-16.0) % Plt Count 139 L D (160-400) X10*3/uL MPV 12.1 (9.4-12.3) fL Immature Gran % (Auto) 0.5 H (0.0-0.4) % Neut % (Auto) 59.2 (45-73) % Lymph % (Auto) 32.6 (20-40) % [place] % (Auto) 5.2 (2-11) % Eos % (Auto) 2.0 (0-4) % Baso % (Auto) 0.5 (0-2) % Lymph # (Auto) 4.2 (1.2-4.9) X10*3/uL [place] # (Auto) 0.7 (0.1-1.2) X10*3/uL Eos # (Auto) 0.3 (0.0-0.4) X10*3/uL Baso # (Auto) 0.1 (0.0-0.2) X10*3/uL Abs Immat Gran (auto) 0.06 H (0.00-0.03) X10*3/uL Absolute Neuts (auto) 7.6 (2.0-8.3) x10*3/uL Absolute Nucleated RBC 0.000 (0.0-0.012) X10*3/uL Nucleated RBC % (auto) 0.0 (0.0-0.2) /100WBC Sodium 139 (135-145) mmol/L Potassium 4.1 (3.3-5.1) mmol/L Chloride 106 (96-108) mmol/L Carbon Dioxide 25 (22-29) mmol/L Anion Gap 12 (12-20) BUN 25 H (9-16) mg/dL Creatinine 1.23 (0.5-1.4) mg/dL Estim Creat Clear Calc 42.8 Estimated GFR 43 Random Glucose 209 H (60-115) mg/dL Calcium 9.2 (8.4-10.2) mg/dL Magnesium 2.3 (1.6-2.6) mg/dL Total Bilirubin 0.8 (0.0-1.0) mg/dL AST 23 (5-31) U/L ALT 13 (0-31) U/L Alkaline Phosphatase 103 (39-117) U/L Total Protein 7.0 (6.5-8.0) g/dL Albumin 3.7 (3.5-5.0) g/dL Urine Color Yellow Urine Appearance Turbid Urine pH 6.0 (5.0-9.0) Ur Specific [place] 1.020 (1.005-1.025) Urine Protein 100 (2+) H (Neg-Trace) mg/dL Urine Glucose (UA) >=1000 H (Negative) mg/dL Urine Ketones Negative (Negative) mg/dL Urine Blood Moderate (2+) H (Negative) Urine Nitrite Positive H (Negative) Ur Leukocyte Esterase Large (3+) H (Negative) Urine RBC 11-20 H (0-2) /HPF Urine WBC >50 H (0-5) /HPF Ur Squamous Epith Cells 0-2 (0-2) /HPF Urine Bacteria 4+ (None Seen) Hyaline Casts 3-5 (0-2) /LPF Urine Yeast Present Influenza Type A (PCR) NEGATIVE (Negative) Influenza Type B (PCR) NEGATIVE (Negative) RSV RNA Qual (PCR) NEGATIVE (Negative) SARS-CoV-2 RNA (RT-PCR) NEGATIVE (Negative) Discharge Plan Discharge Clinical Impression: Word finding difficulty, Urinary tract infection Patient Disposition: Home, Self-Care Additional Instructions: The CT scan of your brain and cervical spine revealed no acute injuries. However, you were found to have evidence of old strokes on the CT angiograms of the brain. You were also found to have narrowing of your carotid arteries, this is something that can be tracked and followed by your primary care provider. Follow up with your primary care provider, they may order an MRI as an outpatient. Call today for an appointment. Prescriptions: New cefuroxime axetil 250 mg tablet 250 mg PO Q12H 7 Days Qty: 14 0RF No Action furosemide 40 mg tablet 40 mg PO BID Qty: 180 1RF citalopram 20 mg tablet 20 mg PO DAILY Xarelto 20 mg tablet 20 mg PO DAILY@1700 ZzzQuil 50 mg/30 mL Liquid 50 mg PO BEDTIME PRN (Reason: Sleep) insulin glargine [Lantus Solostar U-100 Insulin] 100 unit/mL (3 mL) insulin pen 28 unit subcut BEDTIME carvedilol 25 mg Tablet 25 mg PO BID Rx Instructions: must administer with a meal/food Jardiance 25 mg Tablet 25 mg PO DAILY Entresto 97-103 mg Tablet 1 tab PO BID Combivent Respimat 20-100 mcg/actuation mist 1 puff INHALATION QID PRN (Reason: wheezing) prednisone 20 mg tablet 40 mg PO DAILY Qty: 10 0RF azithromycin 500 mg tablet 500 mg PO DAILY 5 Days Qty: 5 0RF insulin aspart U-100 100 unit/mL (3 mL) insulin pen 1 sliding scale dose subcut TIDAC atorvastatin 80 mg tablet 80 mg PO BEDTIME Interventions: ED Discharge Assessment Last Done: 04/11/24 01:34 Discharge Date/Time: 04/11/24 01:37 Print Language: Surinamese
[2024-04-11 01:34] VITALS: BP 121/53; PULSE 67; RESP 12; TEMP 36.4; O2SAT 98
== END 2024-04-11 01:37 | disposition home or self-care (01) ==
PROVIDERS: Physician Assistant Medical; Emergency Provider Internal Medicine; PCP Internal Medicine
DX: N39.0 Urinary tract infection, site not specified (principal); M54.2 Cervicalgia; R51.9 Headache, unspecified; I25.10 Atherosclerotic heart disease of native coronary artery without angina pectoris; Z03.818 Encounter for observation for suspected exposure to other biological agents ruled out; Z79.899 Other long term (current) drug therapy; Z79.01 Long term (current) use of anticoagulants
CPT/HCPCS: 0241U; 36415; 51702; 70450; 70496; 70498; 72125; 80053; 81001; 83735; 85025; 87086; 87088; 87186; 99284; 99285; Q9967

== ENCOUNTER → 2024-05-03 23:59 | Outpatient (BNV) | payer OTHER, SELFPAY ==
[2021-10-15 11:10] VITALS: BP 110/70; BMI 46.0
--- NOTE | 2024-05-04 16:28 | MHC.OFFVIS ---
Intake Visit Reasons: Remote ICD check- [facility] Allergies No Known Allergies Allergy (Verified 04/10/24 16:44) [facility] Medical History CHF (congestive heart failure) Sleep apnea Presence of CardioMEMS HF system Hx of myocardial infarction Anxiety and depression Osteoarthritis Fatty liver Restrictive lung disease TAQUERIA treated with BiPAP Morbid obesity Biventricular ICD (implantable cardioverter-defibrillator) in place CAD (coronary artery disease) Non-rheumatic aortic stenosis Atherosclerotic cardiovascular disease Acute on chronic systolic and diastolic heart failure, NYHA class 3 Leukocytosis Dyspnea Transaminitis Hypoxia Congestive heart failure TAQUERIA (obstructive sleep apnea) NSVT (nonsustained ventricular tachycardia) Cardiomyopathy Chronic systolic heart failure Diabetes mellitus HLD (hyperlipidemia) HTN (hypertension) Surgical History History of incision and drainage Status post coronary artery bypass graft Stented coronary artery Hx of CABG History of cardiac cath Hx of cardiac cath Hx of cardiac cath Hx of appendectomy History of cholecystectomy Family History Father No problems noted. Mother No problems noted. Social History Household Members: Family Household Members Other:: son and daughter in law Housing: Apartment Are you a primary care assistant to a significant other at home: No Do you presently have visiting nurse or other home services: No Alcohol intake: never Comment: chronic back pain Patient Tobacco Use Status: Never used Tobacco Tobacco use type: Cigarette Cigarette Packs Per Day: 1 Years Smoked: 30 Smoked in Last 30 Days: Yes e-Cigarette/Vaping Use: Never Used Second Hand Smoke Exposure: Yes Use of substances other than those prescribed or required for medical reasons: No Advance Directives: Yes Advance Directives on File: Yes Advance Directives Date on File: 11/07/22 service: No Current occupational status: unemployed and disabled Current occupation: rt hand Office Procedures Cardiac Device Check Cardiac Device Check Details: Remote ICD report generated 05/03/2024. ICD function is adequate. Bi V pacing 96% of the time [id number] Cardiac Interrogation, implant defibrillator w/interim Procedure code (CPT) selection complete Assessment & Plan Assessment & Plan (1) Biventricular ICD (implantable cardioverter-defibrillator) in place: Comment: [place] 2015 Code(s): Z95.810 - Presence of automatic (implantable) cardiac defibrillator Category: Medical Plan: See above Coding Level of Care Code Procedure Only Diagnoses Biventricular ICD (implantable cardioverter-defibrillator) in place Z95.810 CPT Codes Cardiac Device Check - Cardiac Device 13: [id number] Cardiac Interrogation, implant defibrillator w/interim ([id number])
== END ==
PROVIDERS: PCP Internal Medicine; Visit Provider Internal Medicine Cardiovascular Disease
DX: Z45.02 Encounter for adjustment and management of automatic implantable cardiac defibrillator (principal)
CPT/HCPCS: 93295

== ENCOUNTER 2024-05-05 18:59 | Inpatient (IN) | payer OTHER, SELFPAY ==
[2021-10-15 11:10] VITALS: BP 110/70; BMI 46.0
--- NOTE | 2024-05-05 | ECG_ITS ---
Test Reason : SOB Blood Pressure : */* mmHG Vent. Rate : 98 BPM Atrial Rate : 98 BPM P-R Int : 102 ms QRS Dur : 138 ms QT Int : 448 ms P-R-T Axes : 84 231 51 degrees QTcB Int : 571 ms Atrial-sensed ventricular-paced rhythm with frequent , and consecutive Premature ventricular complexes Abnormal ECG When compared with ECG of 29-Mar-2024 01:50, Premature ventricular complexes are now Present Vent. rate has decreased by 6 bpm Referred By: Generic ED Physician Electronically Signed By: BATSHEVA POLANCO
--- NOTE | ~2024-05-05 | XR_ITS ---
CLINICAL HISTORY: chest pain 1 view chest x-ray Comparison: CR/SR - XR CHEST 1V - 03/29/24 02:34 EST Findings: Central vascular prominence with diffuse interstitial opacities. No significant pleural effusion or pneumothorax. Similar prominent/enlarged cardiac silhouette. Similar position of the left pectoral biventricular AICD/pacemaker. Median sternotomy wires and clips. No acute fracture. IMPRESSION: Findings suggestive of pulmonary edema versus atypical infection. This document has been electronically signed by: Nic Khanna MD on 05/05/2024 20:18:40
[2024-05-05 19:12] VITALS: BP 156/112; PULSE 110; O2SAT 95
[2024-05-05 19:14] VITALS: BP 164/66; PULSE 98; RESP 22; TEMP 36.5; O2SAT 93; BMI 43.8
[2024-05-05 19:48] LABS: MANUAL DIFF FLAG NO
[2024-05-05 19:49] LABS: Basophils Absolute Auto 0.1 X10*3/uL (0.0-0.2); Basophils Percent Auto 0.5 % (0-2); Eosinophils Absolute Auto 0.2 X10*3/uL (0.0-0.4); Eosinophils Percent Auto 1.4 % (0-4); Hematocrit 45.2 % (37.0-47.0); Hemoglobin 14.8 g/dl (12.0-16.0); Imm Gran Abs Auto 0.07 X10*3/uL (0.00-0.03); Imm Gran Pct Auto 0.5 % (0.0-0.4); Lymphocytes Absolute Auto 3.2 X10*3/uL (1.2-4.9); Lymphocytes Percent Auto 22.5 % (20-40); Mean Corpuscular HGB Conc 32.7 g/dl (31.0-35.0); Mean Corpuscular Hemoglobin 29.2 pg (27.0-33.0); Mean Corpuscular Volume 89.3 fL (80.0-98.0); Mean Platelet Volume 11.2 fL (9.4-12.3); Monocytes Absolute Auto 0.6 X10*3/uL (0.1-1.2); Monocytes Percent Auto 4.5 % (2-11); Neutrophils Percent Auto 70.6 % (45-73); Platelet Count 145 X10*3/uL (160-400); Red Blood Count 5.06 X10*6/uL (4.20-5.50); Red Cell Distribution Width 16.9 % (11.0-16.0); White Blood Count 14.2 X10*3/uL (4.8-10.8)
[2024-05-05 20:03] LABS: Alanine Aminotransferase 22 U/L (0-31); Albumin Level 3.8 g/dL (3.5-5.0); Alkaline Phosphatase 143 U/L (39-117); Anion Gap 13 (12-20); Aspartate Amino Transferase 33 U/L (5-31); Bilirubin Total 0.9 mg/dL (0.0-1.0); Blood Urea Nitrogen 13 mg/dL (9-16); Calcium 8.7 mg/dL (8.4-10.2); Carbon Dioxide 21 mmol/L (22-29); Chloride 110 mmol/L (96-108); Creatinine Clr Calc Pharmacy 62.6; Estimated Glomerular Filt Rate > 60; Glucose Random 198 mg/dL (60-115); Sodium 140 mmol/L (135-145); Total Protein 7.4 g/dL (6.5-8.0)
[2024-05-05 20:09] LABS: B Type Natriuretic Peptide 1478 pg/mL (<100)
[2024-05-05 20:18] LABS: Troponin-I High Sensitivity 589.8 ng/L (<3.5-17.0)
--- NOTE | 2024-05-05 20:20 | ED.SOB ---
HPI - SOB/Dyspnea General Chief Complaint: Dyspnea Stated Complaint: sob, hx copd Time Seen by Provider: 05/05/24 20:05 Source: patient Mode of arrival: ambulatory Limitations: no limitations History of Present Illness ED Provider: Dr. Tamra Marley HPI Narrative: patient comes to the emergency room complaining of shortness of breath with exertion. Patient states that if she is sitting she does not have much shortness of breath. Patient denies significant coughing more than usual, denies any productive cough. Patient states that she is compliant with her medications for CHF. Patient denies any chest pain. Related Data Home Medications ?Medication ?Instructions ?Recorded ?Confirmed atorvastatin 80 mg tablet 80 mg PO BEDTIME 02/27/20 03/29/24 insulin aspart U-100 100 unit/mL 1 sliding scale dose subcut TIDAC 06/26/20 03/29/24 (3 mL) subcutaneous pen citalopram 20 mg tablet 20 mg PO DAILY 07/21/20 03/29/24 rivaroxaban 20 mg tablet (Xarelto) 20 mg PO DAILY@1700 08/14/23 03/29/24 diphenhydramine HCl 50 mg/30 mL 50 mg PO BEDTIME PRN Sleep 08/15/23 03/29/24 oral liquid (ZzzQuil) insulin glargine 100 unit/mL (3 28 unit subcut BEDTIME 02/04/24 03/29/24 mL) subcutaneous pen (Lantus Solostar U-100 Insulin) carvedilol 25 mg tablet 25 mg PO BID 02/09/24 03/29/24 empagliflozin 25 mg tablet 25 mg PO DAILY 02/09/24 03/29/24 (Jardiance) sacubitril 97 mg-valsartan 103 mg 1 tab PO BID 02/09/24 03/29/24 tablet (Entresto) ipratropium 20 mcg-albuterol 100 1 puff inhalation QID PRN wheezing 03/29/24 03/29/24 mcg/actuation mist for inhalation (Combivent Respimat) Previous Rx's ?Medication ?Instructions ?Recorded azithromycin 500 mg tablet 500 mg PO DAILY 5 days #5 tabs 03/31/24 prednisone 20 mg tablet 40 mg (2 x 20 mg) PO DAILY #10 tabs 03/31/24 cefuroxime axetil 250 mg tablet 250 mg PO Q12H 7 days #14 tabs 04/11/24 furosemide 40 mg tablet 40 mg PO BID #180 tabs 04/18/24 Allergies Allergy/AdvReac Type Severity Reaction Status Date / Time No Known Allergies Allergy Verified 05/05/24 19:18 Review of Systems Review of Systems: Constitutional : No Weight loss, No Fever, No Chills, No Night Sweats, No Fatigue, No Malaise ENT/Mouth : No Hearing loss, No Ear Pain, No Nasal Congestion, No Sinus Pain, No Hoarseness, No sore throat, No Rhinorrhea, No Swallowing Difficulty Eyes: No Eye Pain, No Swelling, No Redness, No Foreign Body, No Discharge, No Vision Changes Cardiovascular : No Chest Pain, Complaining of shortness of breath with exertion and orthopnea, no palpitations Respiratory : No Cough, No Sputum, No Wheezing, No Smoke Exposure, No Dyspnea Gastrointestinal : No Nausea, No Vomiting, No Diarrhea, No Constipation, No abdominal Pain, No Hematochezia, No Melena Genitourinary : no irregular bleeding, No Dysuria, No Urinary Frequency, No Hematuria, No Urinary Incontinence, No Urgency, No Flank Pain, No Urinary Flow Changes, No Hesitancy Musculoskeletal : No joint pain, No Myalgias, No Joint Swelling Skin : No Skin Lesions, No rash Neuro : No Weakness, No Numbness, No Paresthesias, No Loss of Consciousness, No Dizziness, No Headache Psych : No Anxiety/Panic, No Depression, No SI/HI/AH/VH, No Social Issues, Heme/Lymph: No Bruising, No Bleeding,No Lymphadenopathy Endocrine : No Polyuria, No Polydipsia, No Temperature Intolerance [facility] Past Medical History Medical History CHF (congestive heart failure) Sleep apnea Presence of CardioMEMS HF system Hx of myocardial infarction Anxiety and depression Osteoarthritis Fatty liver Restrictive lung disease TAQUERIA treated with BiPAP Morbid obesity Biventricular ICD (implantable cardioverter-defibrillator) in place CAD (coronary artery disease) Non-rheumatic aortic stenosis Atherosclerotic cardiovascular disease Acute on chronic systolic and diastolic heart failure, NYHA class 3 Leukocytosis Dyspnea Transaminitis Hypoxia Congestive heart failure TAQUERIA (obstructive sleep apnea) NSVT (nonsustained ventricular tachycardia) Cardiomyopathy Chronic systolic heart failure Diabetes mellitus HLD (hyperlipidemia) HTN (hypertension) Surgical History History of incision and drainage Status post coronary artery bypass graft Stented coronary artery Hx of CABG History of cardiac cath Hx of cardiac cath Hx of cardiac cath Hx of appendectomy History of cholecystectomy Family History Family History Father No problems noted. Mother No problems noted. Social History Social History Household Members: Family Household Members Other:: son and daughter in law Housing: Apartment Are you a primary livestock caretaker to a significant other at home: No Do you presently have visiting nurse or other home services: No Alcohol intake: never Comment: chronic back pain Patient Tobacco Use Status: Never used Tobacco Tobacco use type: Cigarette Cigarette Packs Per Day: 1 Years Smoked: 30 Smoked in Last 30 Days: Yes e-Cigarette/Vaping Use: Never Used Second Hand Smoke Exposure: Yes Use of substances other than those prescribed or required for medical reasons: No Advance Directives: Yes Advance Directives on File: Yes Advance Directives Date on File: 11/07/22 service: No Current occupational status: unemployed and disabled Current occupation: rt hand Physical Exam Vital Signs: Vital Signs: Last Vital Signs Temp 97.7 F 05/05/24 19:14 Pulse 98 05/05/24 19:14 Resp 22 H 05/05/24 19:14 BP 164/66 H 05/05/24 19:14 Pulse Ox 88 L 05/05/24 20:53 O2 Del Method Nasal Cannula 05/05/24 19:14 Oxygen Flow Rate 2 05/05/24 19:14 BMI result Body Mass Index 43.8 Const: Other: Appearance: Alert. Oriented X3. No acute distress. Eyes: Pupils equal, round and reactive to light. ENT: Pharynx normal. Neck: Normal inspection. Neck supple. No lymph nodes noted. No crepitus CVS: Normal heart rate and rhythm. Pulses normal. Normal S1 and S2 Respiratory: No respiratory distress. bilateral crackles, no wheezing Abdomen: Soft and nontender. No rigidity. No distention. Skin: Skin warm and dry. Normal skin color. Normal skin turgor. Extremities: face pitting edema bilaterally,. No Lacerations. No Rash Neuro: Oriented X 3. No motor deficit. No sensory deficit. Moving all extremities. No slurred speech. CN 2 through 12 grossly intact Psych: calm, cooperative, normal affect Course Course Course Narrative: patient has no cough, no sputum production. Patient has bilateral crackles. No fever chills, no hypotension. Chest x-ray shows pulmonary edema patient is likely having a CHF exacerbation. Lasix has been given IV. Antibiotics Or fluid are not indicated at this time. Medications Administered Discontinued Medications Generic Name Dose Route Start Last Admin Trade Name Marian PRN Reason Stop Dose Admin Furosemide 60 mg 05/05/24 20:16 05/05/24 20:36 Furosemide 100 Mg/10 Ml Vial IVPUSH 05/05/24 20:17 60 mg ONCE ONE Administration Protocol Medical Decision Making Medical Decision Making [facility] Narrative: my interpretation of labs: Patient's white blood cell count 14.2, hemoglobin and hematocrit and platelets stable. patient's BNP is elevated 1478, which is a bit more than patient's baseline at 700, troponin is today 589, chronic for the patient. Patient has no chest pain my interpretation of EKG: Atrial sensed ventricular paced rhythm with frequent PVCs, heart rate 102, QTC 571. of note, patient uses CPAP at bedtime we attempted to get the patient out of bed to walk to the bathroom, patient could not tolerate more than 3-4 steps. We had to return the patient to bed. Patient was provided with a bed [place]. O2 saturation 88% on room air walking. Patient does not use oxygen at home I discussed the patient with Dr. Villagran from the Medicine team team, patient being admitted Differential Diagnosis Differential Diagnoses: The differential diagnosis associated with the presentation includes ( Pneumonia, chronic lung disease, CHF exacerbation) Admission/Observation Consideration of admission/observation: Escalation of care including admission/observation considered Consult Healthcare Provider Management of the patient was discussed with: Hospitalist Lab Data [facility] Lab Attestation statement: I reviewed the patient's lab results. 05/05/24 19:43 05/05/24 19:43 Labs: Lab Results 05/05/24 Range/Units 19:43 WBC 14.2 H (4.8-10.8) X10*3/uL RBC 5.06 (4.20-5.50) X10*6/uL Hgb 14.8 (12.0-16.0) g/dl Hct 45.2 (37.0-47.0) % MCV 89.3 (80.0-98.0) fL MCH 29.2 (27.0-33.0) pg MCHC 32.7 (31.0-35.0) g/dl RDW 16.9 H (11.0-16.0) % Plt Count 145 L (160-400) X10*3/uL MPV 11.2 (9.4-12.3) fL Immature Gran % (Auto) 0.5 H (0.0-0.4) % Neut % (Auto) 70.6 (45-73) % Lymph % (Auto) 22.5 (20-40) % Titus % (Auto) 4.5 (2-11) % Eos % (Auto) 1.4 (0-4) % Baso % (Auto) 0.5 (0-2) % Lymph # (Auto) 3.2 (1.2-4.9) X10*3/uL Titus # (Auto) 0.6 (0.1-1.2) X10*3/uL Eos # (Auto) 0.2 (0.0-0.4) X10*3/uL Baso # (Auto) 0.1 (0.0-0.2) X10*3/uL Abs Immat Gran (auto) 0.07 H (0.00-0.03) X10*3/uL Absolute Neuts (auto) 10.0 H (2.0-8.3) x10*3/uL Absolute Nucleated RBC 0.000 (0.0-0.012) X10*3/uL Nucleated RBC % (auto) 0.0 (0.0-0.2) /100WBC Hold Blue Top SEE NOTE Sodium 140 (135-145) mmol/L Potassium 4.0 (3.3-5.1) mmol/L Chloride 110 H (96-108) mmol/L Carbon Dioxide 21 L (22-29) mmol/L Anion Gap 13 (12-20) BUN 13 (9-16) mg/dL Creatinine 0.86 (0.5-1.4) mg/dL Estim Creat Clear Calc 62.6 Estimated GFR > 60 Random Glucose 198 H (60-115) mg/dL Calcium 8.7 (8.4-10.2) mg/dL Total Bilirubin 0.9 (0.0-1.0) mg/dL AST 33 H (5-31) U/L ALT 22 (0-31) U/L Alkaline Phosphatase 143 H (39-117) U/L Troponin I High Sens 589.8 H* (<3.5-17.0) ng/L B-Natriuretic Peptide 1478 H (<100) pg/mL Total Protein 7.4 (6.5-8.0) g/dL Albumin 3.8 (3.5-5.0) g/dL Critical Care Time Critical Care Time Critical Care Time: Yes Total Critical Care Time: 60 Attestation: I have personally provided critical care time. Time includes review of lab data, radiology results, discussion with consultants, and monitoring for potential decompensation. Intervention performed as documented. Discharge Plan Discharge Clinical Impression: Acute exacerbation of CHF (congestive heart failure) Patient Disposition: Admitted As Inpatient Print Language: Monegasque
[2024-05-05] MEDS: Furosemide 100 MG/10 ML VIAL 60 MG IVPUSH (20:36)
[2024-05-05 20:53] VITALS: O2SAT 88
--- NOTE | 2024-05-05 20:54 | PC.NURSE ---
Pt SpO2 88% with ambulation trial. Pt became very winded and needed multiple beaks. Ambulated approximately 30 ft.
[2024-05-05 20:56] VITALS: PULSE 103; RESP 22; O2SAT 88; O2SAT 93
[2024-05-05 21:06] LABS: Lactic Acid 2.5 mmol/L (0.5-2.0)
--- NOTE | 2024-05-05 21:13 | PM.IMHP ---
History of Present Illness Date of Service: 05/05/24 Attending physician on admission: Beckie Winston Chief Complaint: SOB Pt is a 69-year-old female with a PMH significant for HFrEF 30-65%, CAD s/p CABG x2, PE c/b [place] in 10/2023 on Xarelto, s/p biventricular ICD and CardioMEMS in place, COPD, TAQUERIA on CPAP, and insulin-dependent type 2 diabetes who presents to the ED with?increased SOB and CLEMENT x2 days. Pt reports symptoms began last night with mildly increased SOB. Pt woke this morning she found that she could not even walk to the bathroom without becoming so short of breath she had to stop to sit down and catch her breath. Also endorses some chest tightness during ambulation. Found little relief with home inhalers. Chronic nonproductive cough at baseline. No fever or chills. Denies nausea, vomiting, abdominal pain. No lightheadedness or dizziness. Reports she has been compliant with all of her home medications including Entresto, Lasix, and Xarelto. However, has been noncompliant with her CardioMEMS device. Is supposed to take daily readings, but has not checked her device in many months. Pt currently smokes 2-3 cigarettes a day. In the ED pt was tachycardic up to 103, tachypneic up to 22, hypertensive up to 164/66, and satting at 88% on RA, though desatting to 80% with ambulation. Labs were significant for BNP 1478, lactic acid 2.5, AST 33, and troponin 589.8 (around baseline). Stable H&H. No significant electrolyte abnormalities. Renal function WNL. CXR showed central vascular prominence with diffuse interstitial opacities suggestive of pulmonary edema vs atypical infection. EKG demonstrated atrial sensed ventricular paced rhythm with frequent PVCs but no significant ischemic changes. Pt was treated with furosemide 60 mg IV. Pt will be admitted to the hospital acute hypoxic respiratory failure in the setting of acute CHF exacerbation. Review of Systems Review of Systems: Negative except for that which is stated in the [facility] Medical History (Updated 05/05/24 @ 22:11 by OTTO Hunt) CHF (congestive heart failure) Sleep apnea Presence of CardioMEMS HF system Hx of myocardial infarction Anxiety and depression Osteoarthritis Fatty liver Restrictive lung disease TAQUERIA treated with BiPAP Morbid obesity Biventricular ICD (implantable cardioverter-defibrillator) in place CAD (coronary artery disease) Non-rheumatic aortic stenosis Atherosclerotic cardiovascular disease Acute on chronic systolic and diastolic heart failure, NYHA class 3 Leukocytosis Dyspnea Transaminitis Hypoxia Congestive heart failure TAQUERIA (obstructive sleep apnea) NSVT (nonsustained ventricular tachycardia) Cardiomyopathy Chronic systolic heart failure Diabetes mellitus HLD (hyperlipidemia) HTN (hypertension) Family History Father No problems noted. Mother No problems noted. Surgical History History of incision and drainage Status post coronary artery bypass graft Stented coronary artery Hx of CABG History of cardiac cath Hx of cardiac cath Hx of cardiac cath Hx of appendectomy History of cholecystectomy Social History Household Members: Family Household Members Other:: son and daughter in law Housing: Apartment Are you a primary nurse healthcare manager to a significant other at home: No Do you presently have visiting nurse or other home services: No Alcohol intake: never Comment: chronic back pain Patient Tobacco Use Status: Never used Tobacco Tobacco use type: Cigarette Cigarette Packs Per Day: 1 Years Smoked: 30 Smoked in Last 30 Days: Yes e-Cigarette/Vaping Use: Never Used Second Hand Smoke Exposure: Yes Use of substances other than those prescribed or required for medical reasons: No Advance Directives: Yes Advance Directives on File: Yes Advance Directives Date on File: 11/07/22 service: No Current occupational status: unemployed and disabled Current occupation: rt hand Meds Allergies Allergy/AdvReac Type Severity Reaction Status Date / Time No Known Allergies Allergy Verified 05/05/24 19:18 Active Medications: Current Medications Acetaminophen (Acetaminophen 325 Mg Tablet) 975 mg PO Q6H PRN PRN Reason: Pain, Mild 1-3,fever,headache Furosemide (Furosemide 40 Mg/4 Ml Vial) 40 mg IVPUSH BID@0900,1700 [place]; Protocol Glucose (Glucose Gel 15 Gm Gel..Gram.) 15 gm PO Q15M PRN; Protocol PRN Reason: per Hypoglycemia Standing Ord. Dextrose (D10) 250 mls @ 750 mls/hr IV Q15M PRN; Protocol PRN Reason: per Hypoglycemia Standing Ord. Insulin Glargine (Insulin Glargine,Hum.Rec.Anlog 100 Unit/Ml 10 Ml Vial) 28 unit SUBCUT BEDTIME [facility] Insulin Human Lispro (Insulin Lispro 100 Unit/Ml 3 Ml Vial) 0 unit SUBCUT QIDACHS [facility]; Protocol Melatonin (Melatonin 3 Mg Tablet) 6 mg PO BEDTIME PRN PRN Reason: Insomnia Sodium Chloride (0.9 % Sodium Chloride Flush 3 Ml Syringe) 3 ml IVFLUSH QSHIFT [facility] Home Medications ?Medication ?Instructions ?Recorded ?Confirmed ?Last Taken ?Type atorvastatin 80 mg tablet 80 mg PO BEDTIME 02/27/20 03/29/24 03/28/24 History insulin aspart U-100 100 unit/mL 1 sliding scale dose subcut TIDAC 06/26/20 03/29/24 03/29/24 History (3 mL) subcutaneous pen citalopram 20 mg tablet 20 mg PO DAILY 07/21/20 03/29/24 03/29/24 History rivaroxaban 20 mg tablet (Xarelto) 20 mg PO DAILY@1700 08/14/23 03/29/24 03/28/24 History diphenhydramine HCl 50 mg/30 mL 50 mg PO BEDTIME PRN Sleep 08/15/23 03/29/24 Unknown History oral liquid (ZzzQuil) insulin glargine 100 unit/mL (3 28 unit subcut BEDTIME 02/04/24 03/29/24 03/28/24 History mL) subcutaneous pen (Lantus Solostar U-100 Insulin) carvedilol 25 mg tablet 25 mg PO BID 02/09/24 03/29/24 03/29/24 History empagliflozin 25 mg tablet 25 mg PO DAILY 02/09/24 03/29/24 03/29/24 History (Jardiance) sacubitril 97 mg-valsartan 103 mg 1 tab PO BID 02/09/24 03/29/24 03/29/24 History tablet (Entresto) ipratropium 20 mcg-albuterol 100 1 puff inhalation QID PRN wheezing 03/29/24 03/29/24 Unknown History mcg/actuation mist for inhalation (Combivent Respimat) Physical Exam Vital Signs and Narrative: Vital Signs: Last Vital Signs Temp 97.7 F 05/05/24 19:14 Pulse 103 H 05/05/24 20:56 Resp 22 H 05/05/24 20:56 BP 164/66 H 05/05/24 19:14 Pulse Ox 93 05/05/24 20:56 O2 Del Method Nasal Cannula 05/05/24 20:56 O2 Flow Rate 2 05/05/24 20:56 Oxygen Flow Rate 2 05/05/24 19:14 BMI result Body Mass Index 43.8 General: AOx3, no acute distress Resp: Bibasilar crackles. No wheezing, rhonchi, rales. CVS: S1, S2, regular rhythm, tachycardic GI: +BS, NT, no distention Skin: Warm, dry Neuro: Cranial nerves II-XII grossly intact bilaterally. Motor grossly intact bilaterally Extremities: Nonpitting edema bilaterally Psych: Appropriate affect Results Labs 05/05/24 19:43 05/05/24 19:43 Labs: Laboratory Results - last 24 hr 05/05/24 05/05/24 19:43 20:40 MCV 89.3 MCH 29.2 MCHC 32.7 RDW 16.9 H Plt Count 145 L MPV 11.2 Immature Gran % (Auto) 0.5 H Neut % (Auto) 70.6 Lymph % (Auto) 22.5 Camp % (Auto) 4.5 Eos % (Auto) 1.4 Baso % (Auto) 0.5 Lymph # (Auto) 3.2 [place] # (Auto) 0.6 Eos # (Auto) 0.2 Baso # (Auto) 0.1 Abs Immat Gran (auto) 0.07 H Absolute Neuts (auto) 10.0 H Absolute Nucleated RBC 0.000 Nucleated RBC % (auto) 0.0 Hold Blue Top SEE NOTE Anion Gap 13 Estim Creat Clear Calc 62.6 Estimated GFR > 60 Random Glucose 198 H Lactic Acid 2.5 H* Calcium 8.7 Total Bilirubin 0.9 AST 33 H ALT 22 Alkaline Phosphatase 143 H Troponin I High Sens 589.8 H* B-Natriuretic Peptide 1478 H Total Protein 7.4 Albumin 3.8 Assessment and Plan (1) Acute exacerbation of CHF (congestive heart failure): Status: Acute (2) Hypoxia: Status: Acute Plan Pt is a 69-year-old female with a PMH significant for HFrEF 30-65%, CAD s/p CABG x2, PE c/b [place] in 10/2023 on Xarelto, s/p biventricular ICD and CardioMEMS in place, COPD, TAQUERIA on CPAP, and insulin-dependent type 2 diabetes who presents to the ED with?increased SOB and CLEMENT x2 days. Pt reports symptoms began last night with mildly increased SOB. Pt will be admitted to the hospital acute hypoxic respiratory failure in the setting of acute HFrEF exacerbation. Acute hypoxic respiratory failure in the setting of acute HFrEF exacerbation Pt with SOB and CLEMENT, elevated BNP above baseline, CXR showing pulmonary edema, desatting to 80% on RA with ambulation Pt has not checked her CardioMEMS device in many months Will treat with Lasix 40 mg IV b.i.d. Titrate supplemental O2 >92, wean as tolerated Continue carvedilol, Entresto Monitor I/O, daily weights, lytes Low-salt diet Monitor on telemetry Lactic acidosis Secondary to hypoxia and demand ischemia, not sepsis Tachycardia and tachypnea secondary to CHF exacerbation, not sepsis Leukocytosis secondary to recent course of prednisone No indication for antibiotics at this time Troponin Patient's troponin 589.8, in line with previous, at baseline Pt asymptomatic, EKG without ischemic changes Pt being monitored on telemetry COPD Not in acute exacerbation Continue home inhalers CAD/HLD Continue statin History of PE Continue Xarelto Insulin-dependent type 2 diabetes Sliding-scale insulin, Lantus, Jardiance Diabetic diet Mood disorder Continue citalopram TAQUERIA CPAP at night Full Code Attending:?Dr. Villagran DVT Prophylaxis: On Xarelto Pt will require a hospitalization of at least two nights for treatment of acute hypoxic respiratory failure in the setting of acute HFrEF exacerbation that will require administration of IV Lasix supplemental oxygen, and close monitoring of cardiac function and electrolytes. Quality Stroke Does the patient have a stroke diagnosis?: No VTE Prior VTE?: No VTE Risk Level:: Medical - moderate - high VTE Device Contraindication: Treatment Not Indicated VTE Drug Contraindication: N/A - Med Ordered
--- NOTE | 2024-05-05 21:29 | PHA.MEDREC ---
Pharmacy Consult ? Medication Reconciliation Pharmacy has completed the medication reconciliation, spoke to patient at bedside who confirmed all medications when provided with names. Patient knew how she took all medications and most of the doses, said she last took them this morning.
[2024-05-05 21:31] LABS: Influenza A PCR NEGATIVE (Negative); Influenza B PCR NEGATIVE (Negative); Resp Syncy Virus RNA Qual PCR NEGATIVE (Negative); SARS COV2 PCR INHOUSE NEGATIVE (Negative)
[2024-05-05 21:41] VITALS: BP 153/68; PULSE 96; RESP 22; TEMP 36.8; O2SAT 96
[2024-05-05 21:50] LABS: Cancel Lactic Acid Canceled
[2024-05-05 22:02] VITALS: BP 153/68; PULSE 87
[2024-05-05] MEDS: Nitroglycerin 2 % Oint 1 GM Packet 0.5 INCH TRANSDERMA (22:02)
[2024-05-05] MEDS: Atorvastatin Calcium 80 MG TABLET PO (22:03)
[2024-05-05] MEDS: Sacubitril/Valsartan 97/103 1 TAB TABLET PO (22:03)
[2024-05-06] VITALS (7 sets, daily range): BP systolic 86–142; BP diastolic 44–66; PULSE 65–84; RESP 12–21; TEMP 36.1–36.9; O2SAT 93–97; BMI 43.0
[2024-05-06] MEDS: 0.9 % Sodium Chloride 500 ML IV (01:30)
[2024-05-06 04:58] LABS: MANUAL DIFF FLAG NO
[2024-05-06 05:00] LABS: Basophils Absolute Auto 0.1 X10*3/uL (0.0-0.2); Eosinophils Absolute Auto 0.1 X10*3/uL (0.0-0.4); Eosinophils Percent Auto 1.3 % (0-4); Hematocrit 41.6 % (37.0-47.0); Hemoglobin 13.7 g/dl (12.0-16.0); Imm Gran Abs Auto 0.05 X10*3/uL (0.00-0.03); Imm Gran Pct Auto 0.5 % (0.0-0.4); Lymphocytes Absolute Auto 3.8 X10*3/uL (1.2-4.9); Lymphocytes Percent Auto 38.9 % (20-40); Mean Corpuscular HGB Conc 32.9 g/dl (31.0-35.0); Mean Corpuscular Hemoglobin 29.1 pg (27.0-33.0); Mean Corpuscular Volume 88.5 fL (80.0-98.0); Mean Platelet Volume 10.8 fL (9.4-12.3); Monocytes Absolute Auto 0.6 X10*3/uL (0.1-1.2); Neutrophils Absolute Auto 5.1 x10*3/uL (2.0-8.3); Neutrophils Percent Auto 52.3 % (45-73); Platelet Count 147 X10*3/uL (160-400); Red Cell Distribution Width 16.8 % (11.0-16.0); White Blood Count 9.8 X10*3/uL (4.8-10.8)
--- NOTE | 2024-05-06 05:06 | PC.NURSE ---
Pt 69 y/o female biba from home with c/o of SOB and chest pain since this morning. Pt denies any recent illnesses and not on O2 at baseline. Pt has hx of COPD, CHF ,and asthma. Pt took 2 puffs of her inhaler at home with no relief . EMS gave duoneb during transport in which pt had some relief. Ambulation trialed performed with pt and she failed, making several stops during trial, O2 sats dropping to 88%, and complaining of chest pain on extertion. Pt is currently on 2L NC, received 60 mg lasix, and 0.5 in nitropaste to left chest. Pt reports no pain at this time. Pt being admitted for acute hypoxic respiratory failure and CHF exacerbation. Pt has 22g field IV in left hand. Pt is a&o x4, able to make her needs known and using a bedside commode. 0120- pt bp 86/44 MD Vaughn aware, pt receiving 500 ml NACL IV, remove nitro paste 0505- bp 92/56 MD Vaughn made aware, no new orders at this time
[2024-05-06 05:12] LABS: Anion Gap 11 (12-20); Blood Urea Nitrogen 16 mg/dL (9-16); Calcium 8.4 mg/dL (8.4-10.2); Carbon Dioxide 23 mmol/L (22-29); Chloride 111 mmol/L (96-108); Creatinine Clr Calc Pharmacy 49.9; Estimated Glomerular Filt Rate 50; Glucose Random 156 mg/dL (60-115); Magnesium 2.2 mg/dL (1.6-2.6); Potassium 3.7 mmol/L (3.3-5.1); Sodium 141 mmol/L (135-145)
[2024-05-06 08:16] LABS: Glucose, Whole Blood 141 mg/dL (60-115)
[2024-05-06] MEDS: Furosemide 40 MG/4 ML VIAL IVPUSH (08:34)
[2024-05-06] MEDS: Escitalopram Oxalate 10 MG TABLET PO (08:34)
[2024-05-06] MEDS: Empagliflozin 25 MG TABLET PO (08:34)
[2024-05-06] MEDS: carvediloL 25 MG TABLET PO (08:34)
[2024-05-06] MEDS: 0.9 % Sodium Chloride Flush 3 ML SYRINGE IVFLUSH (08:35)
[2024-05-06 09:51] LABS: Troponin-I High Sensitivity 565.5 ng/L (<3.5-17.0)
--- NOTE | 2024-05-06 10:27 | P.CONCA_ITS ---
History of Present Illness History of Present Illness Date of Service: 05/06/24 Chief complaint: Acute on chronic systeolic chf Narrative: This is a cardiology consultation regarding congestive heart failure. She has a history of coronary disease, cardiomyopathy, congestive heart failure and also has a CardioMEMS in place. Most recently, she was admitted a month ago for congestive heart failure and was diuresed and discharged. Then she states she was doing okay for several weeks and all of a sudden again felt short of breath leading to the current hospitalization. Today again she is back to normal self. These episodes of shortness of breath happen every few weeks and then she can get up hospitalized but improved fairly quickly and then returns back to her baseline. No significant leg swelling. No angina. Otherwise feels fine. Today, almost back to normal self. Review of Systems 2 Review of Systems: Yes all other systems are reviewed and are negative Constitutional: Constitutional: Reports as per HPI and Reports no additional constitutional complaints Eyes: Eyes: Reports as per HPI and Denies no additional eye complaints ENT: Denies system reviewed and no additional complaints, except as documented and Reports as per HPI Cardiovascular: Cardiovascular: Reports as per HPI, Reports no additional cardiovascular complaints, Denies acrocyanosis, Denies cool extremities, Denies chest pain, Denies leg edema, Denies lightheadedness, Denies palpitations and Reports dyspnea Respiratory: Respiratory: Reports as per HPI, Denies no additional respiratory complaints and Reports dyspnea Gastrointestinal: Gastrointestinal: Reports as per HPI and Denies no additional gastrointestinal complaints Genitourinary: Genitourinary: Reports as per HPI Musculoskeletal: Musculoskeletal: Reports no additional musculoskeletal complaints and Reports as per HPI Integumentary/Breasts: Skin/Breast: Reports system reviewed and no additional complaints, except as docu Neurologic: Reports system reviewed and no additional complaints, except as documented and Reports as per HPI Psychiatric: Psychiatric: Reports no additional psychiatric complaints and Reports as per HPI Endocrine: Endocrine: Reports no additional endocrine complaints, Reports as per HPI and Denies palpitations Hematologic/Lymphatic: Hematologic/Lymphatic: Reports no additional hematologic/lymphatic complaints and Reports as per HPI Allergic/Immunologic: Allergic/Immunologic: Reports no additional allergic/immunologic complaints and Reports as per HPI [facility] Past Medical History Medical History (Updated 05/05/24 @ 22:11 by OTTO Hunt) CHF (congestive heart failure) Sleep apnea Presence of CardioMEMS HF system Hx of myocardial infarction Anxiety and depression Osteoarthritis Fatty liver Restrictive lung disease [place] treated with BiPAP Morbid obesity Biventricular ICD (implantable cardioverter-defibrillator) in place CAD (coronary artery disease) Non-rheumatic aortic stenosis Atherosclerotic cardiovascular disease Acute on chronic systolic and diastolic heart failure, NYHA class 3 Leukocytosis Dyspnea Transaminitis Hypoxia Congestive heart failure [place] (obstructive sleep apnea) NSVT (nonsustained ventricular tachycardia) Cardiomyopathy Chronic systolic heart failure Diabetes mellitus HLD (hyperlipidemia) HTN (hypertension) Family History Family History Father No problems noted. Mother No problems noted. Surgical History Surgical History History of incision and drainage Status post coronary artery bypass graft Stented coronary artery Hx of CABG History of cardiac cath Hx of cardiac cath Hx of cardiac cath Hx of appendectomy History of cholecystectomy Social History Social History Household Members: Family Household Members Other:: son and daughter in law Housing: Apartment Are you a primary care director rn to a significant other at home: No Do you presently have visiting nurse or other home services: No Alcohol intake: never Comment: chronic back pain Patient Tobacco Use Status: Current everyday Tobacco user Tobacco use type: Cigarette Cigarette Packs Per Day: 1 Years Smoked: 30 Smoked in Last 30 Days: Yes e-Cigarette/Vaping Use: Never Used Second Hand Smoke Exposure: Yes Use of substances other than those prescribed or required for medical reasons: No Advance Directives: Yes Advance Directives on File: Yes Advance Directives Date on File: 11/07/22 Nutrition Risks: No Nutritional Risk service: No Current occupational status: unemployed and disabled Current occupation: rt hand Meds Allergies Allergy/AdvReac Type Severity Reaction Status Date / Time No Known Allergies Allergy Verified 05/05/24 19:18 Active Medications: Current Medications Acetaminophen (Acetaminophen 325 Mg Tablet) 975 mg PO Q6H PRN PRN Reason: Pain, Mild 1-3,fever,headache Atorvastatin Calcium (Atorvastatin Calcium 80 Mg Tablet) 80 mg PO BEDTIME [facility] Last Admin: 05/05/24 22:03 Dose: 80 mg Carvedilol (Carvedilol 25 Mg Tablet) 25 mg PO BID [facility]; Protocol Last Admin: 05/06/24 08:34 Dose: 25 mg Empagliflozin (Empagliflozin 25 Mg Tablet) 25 mg PO DAILY [facility] Last Admin: 05/06/24 08:34 Dose: 25 mg Escitalopram Oxalate (Escitalopram Oxalate 10 Mg Tablet) 10 mg PO DAILY [facility] Last Admin: 05/06/24 08:34 Dose: 10 mg Furosemide (Furosemide 40 Mg/4 Ml Vial) 40 mg IVPUSH BID@0900,1700 [facility]; Protocol Last Admin: 05/06/24 08:34 Dose: 40 mg Glucose (Glucose Gel 15 Gm Gel..Gram.) 15 gm PO Q15M PRN; Protocol PRN Reason: per Hypoglycemia Standing Ord. Dextrose (D10) 250 mls @ 750 mls/hr IV Q15M PRN; Protocol PRN Reason: per Hypoglycemia Standing Ord. Insulin Glargine (Insulin Glargine,Hum.Rec.Anlog 100 Unit/Ml 10 Ml Vial) 28 unit SUBCUT BEDTIME [facility] Insulin Human Lispro (Insulin Lispro 100 Unit/Ml 3 Ml Vial) 0 unit SUBCUT QIDACHS [facility]; Protocol Last Admin: 05/06/24 08:32 Dose: Not Given Melatonin (Melatonin 3 Mg Tablet) 6 mg PO BEDTIME PRN PRN Reason: Insomnia Rivaroxaban (Rivaroxaban 20 Mg Tablet) 20 mg PO DAILY@1700 [facility] Sacubitril/Valsartan (Sacubitril/Valsartan 97/103 1 Tab Tablet) 1 tab PO BEDTIME [facility]; Protocol Last Admin: 05/05/24 22:03 Dose: 1 tab Sodium Chloride (0.9 % Sodium Chloride Flush 3 Ml Syringe) [facility] Last Admin: 05/06/24 08:35 Dose: 3 ml Home Medications ?Medication ?Instructions ?Recorded ?Confirmed ?Last Taken ?Type atorvastatin 80 mg tablet 80 mg PO BEDTIME 02/27/20 05/05/24 03/28/24 History insulin aspart U-100 100 unit/mL 1 sliding scale dose subcut TIDAC 06/26/20 05/05/24 03/29/24 History (3 mL) subcutaneous pen citalopram 20 mg tablet 20 mg PO DAILY 07/21/20 05/05/24 05/05/24 History rivaroxaban 20 mg tablet (Xarelto) 20 mg PO DAILY@1700 08/14/23 05/05/24 03/28/24 History diphenhydramine HCl 50 mg/30 mL 50 mg PO BEDTIME PRN Sleep 08/15/23 05/05/24 Unknown History oral liquid (ZzzQuil) insulin glargine 100 unit/mL (3 28 unit subcut BEDTIME 02/04/24 05/05/24 03/28/24 History mL) subcutaneous pen (Lantus Solostar U-100 Insulin) carvedilol 25 mg tablet 25 mg PO BID 02/09/24 05/05/24 05/05/24 History empagliflozin 25 mg tablet 25 mg PO DAILY 02/09/24 05/05/24 05/05/24 History (Jardiance) sacubitril 97 mg-valsartan 103 mg 1 tab PO BEDTIME 02/09/24 05/05/24 03/29/24 History tablet (Entresto) ipratropium 20 mcg-albuterol 100 1 puff inhalation QID PRN wheezing 03/29/24 05/05/24 Unknown History mcg/actuation mist for inhalation (Combivent Respimat) Physical Exam 2 Vital Signs: Vital Signs: Last Vital Signs Temp 97.5 F 05/06/24 07:47 Pulse 70 05/06/24 07:47 Resp 14 05/06/24 07:47 BP 137/63 05/06/24 07:47 Pulse Ox 97 05/06/24 07:47 O2 Del Method Nasal Cannula 05/06/24 07:47 O2 Flow Rate 3 05/06/24 07:47 Oxygen Flow Rate 2 05/05/24 19:14 BMI result Body Mass Index 43.0 Const: General: comfortable and no acute distress O rientation/consciousness: patient oriented x3 HEENT: Other: Unremarkable Head: Yes normal to inspection Neck: Neck: Yes normal visual inspection Chest: Chest palpation & inspection: normal inspection of the chest Resp: Auscultation: clear to auscultation bilaterally Cardio: Palpation: normal PMI Heart sounds: S1 normal heart sound present, S2 normal heart sound present, no gallops, no murmurs and no rubs GI: Palpation (GI): Soft to palpation Back/Spine/Pelvis: Other: unremarkable Skin: General skin exam: no rashes or lesions noted Neuro: General: patient oriented x3 Extrem: General: Yes normal to inspection Psych: Mental Status: mental status grossly normal Objective Labs and Meds 05/06/24 04:51 05/06/24 04:51 Lab results: Laboratory Results - last 24 hr 05/05/24 05/05/24 05/05/24 19:43 20:38 20:40 WBC 14.2 H RBC 5.06 Hgb 14.8 Hct 45.2 MCV 89.3 MCH 29.2 MCHC 32.7 RDW 16.9 H Plt Count 145 L MPV 11.2 Immature Gran % (Auto) 0.5 H Neut % (Auto) 70.6 Lymph % (Auto) 22.5 [place] % (Auto) 4.5 Eos % (Auto) 1.4 Baso % (Auto) 0.5 Lymph # (Auto) 3.2 [place] # (Auto) 0.6 Eos # (Auto) 0.2 Baso # (Auto) 0.1 Abs Immat Gran (auto) 0.07 H Absolute Neuts (auto) 10.0 H Absolute Nucleated RBC 0.000 Nucleated RBC % (auto) 0.0 Hold Blue Top SEE NOTE Sodium 140 Potassium 4.0 Chloride 110 H Carbon Dioxide 21 L Anion Gap 13 BUN 13 Creatinine 0.86 Estim Creat Clear Calc 62.6 Estimated GFR > 60 POC Glucose Random Glucose 198 H Lactic Acid 2.5 H* Calcium 8.7 Magnesium Total Bilirubin 0.9 AST 33 H ALT 22 Alkaline Phosphatase 143 H Troponin I High Sens 589.8 H* B-Natriuretic Peptide 1478 H Total Protein 7.4 Albumin 3.8 Influenza Type A (PCR) NEGATIVE Influenza Type B (PCR) NEGATIVE RSV RNA Qual (PCR) NEGATIVE SARS-CoV-2 RNA (RT-PCR) NEGATIVE 05/06/24 05/06/24 05/06/24 04:51 07:45 08:44 WBC 9.8 RBC 4.70 Hgb 13.7 Hct 41.6 MCV 88.5 MCH 29.1 MCHC 32.9 RDW 16.8 H Plt Count 147 L MPV 10.8 Immature Gran % (Auto) 0.5 H Neut % (Auto) 52.3 Lymph % (Auto) 38.9 [place] % (Auto) 6.0 Eos % (Auto) 1.3 Baso % (Auto) 1.0 Lymph # (Auto) 3.8 [place] # (Auto) 0.6 Eos # (Auto) 0.1 Baso # (Auto) 0.1 Abs Immat Gran (auto) 0.05 H Absolute Neuts (auto) 5.1 Absolute Nucleated RBC 0.000 Nucleated RBC % (auto) 0.0 Hold Blue Top Sodium 141 Potassium 3.7 Chloride 111 H Carbon Dioxide 23 Anion Gap 11 L BUN 16 Creatinine 1.08 Estim Creat Clear Calc 49.9 Estimated GFR 50 POC Glucose 141 H Random Glucose 156 H Lactic Acid Calcium 8.4 Magnesium 2.2 Total Bilirubin AST ALT Alkaline Phosphatase Troponin I High Sens 565.5 H* B-Natriuretic Peptide Total Protein Albumin Influenza Type A (PCR) Influenza Type B (PCR) RSV RNA Qual (PCR) SARS-CoV-2 RNA (RT-PCR) ECG Interpretation: EKG with atrial sensed, ventricular paced rhythm at 98/Min; PVCs. Assessment and Plan (1) Acute on chronic systolic and diastolic heart failure, NYHA class 3: Status: Acute (2) Cardiomyopathy: Status: Acute (3) CAD (coronary artery disease): Qualifiers: Coronary Disease-Associated Artery/Lesion type: unspecified vessel or lesion type [place] vs. transplanted heart: unspecified whether [place] or transplanted heart Associated angina: without angina Qualified Code(s): I25.10 - Atherosclerotic heart disease of [place] coronary artery without angina pectoris Status: Acute (4) Biventricular ICD (implantable cardioverter-defibrillator) in place: Status: Acute Plan Per last echocardiogram, LVEF is 30-35%. Wall motion abnormalities related to underlying coronary disease. Troponin levels are elevated but she has chronic troponin elevation. Cardiac BNP is indeed lower than before. Currently at 1478. In the past, 2700 last month. For meds, she is listed to be on carvedilol, Jardiance, Entresto, furosemide 40 mg b.i.d.. Overall, not entirely clear as to the etiology for her decompensation episodes. She does not have any mitral regurgitation to account for this. Also no arrhythmias either. Not clear if related to diet/med complaince. Any case, she is back to her normal self. We can resume her usual regimen including diuretics and start discharge planning. Add spironolactone 25 mg daily. She does have CardioMEMS in place but does not transmit readings. If she can indeed do this, we can monitor her heart failure appropriately as an outpatient. Procedures Date of Service Date of Service: 05/06/24
--- NOTE | 2024-05-06 10:37 | MHC.CM.PN ---
IMM 05/06/24, Pt lives with family, she is independent, no home health services or DME. PCP confirmed: Carmina Martins. HCP is on file, and confirmed: Alfred. DCP: home, self care. CM to follow for DC needs.
[2024-05-06 11:44] LABS: Glucose, Whole Blood 171 mg/dL (60-115)
[2024-05-06] MEDS: Insulin Lispro 100 UNIT/ML 3 ML VIAL SUBCUT (11:50)
--- NOTE | 2024-05-06 12:04 | P.DS_ITS ---
DS: Providers Provider Date of Service: 05/06/24 Date of admission: 05/05/24 20:54 Date of discharge: 05/06/24 Primary care physician: Carmina Martins MD Consults: 05/06/24 08:25 Consult to Cardiology Routine Consulting Provider: [facility] Reason for consultation: chf Has provider been notified: No Attending physician on discharge: David Hernandes Discharging clinician: Dariana Summers DS: Diagnosis Discharge Diagnosis (1) Acute on chronic systolic and diastolic heart failure, NYHA class 3: Status: Acute (2) Cardiomyopathy: Status: Acute (3) CAD (coronary artery disease): Status: Acute (4) Biventricular ICD (implantable cardioverter-defibrillator) in place: Status: Acute DS: Summary Hospital Course Hospital Course: From H&P on the day of admission Pt is a 69-year-old female with a PMH significant for HFrEF 30-65%, CAD s/p CABG x2, PE c/b IN in 10/2023 on Xarelto, s/p biventricular ICD and CardioMEMS in place, COPD, TAQUERIA on CPAP, and insulin- dependent type 2 diabetes who presents to the ED with?increased SOB and CLEMENT x2 days. Pt reports symptoms began last night with mildly increased SOB. Pt woke this morning she found that she could not even walk to the bathroom without becoming so short of breath she had to stop to sit down and catch her breath. Also endorses some chest tightness during ambulation. Found little relief with home inhalers. Chronic nonproductive cough at baseline. No fever or chills. Denies nausea, vomiting, abdominal pain. No lightheadedness or dizziness. Reports she has been compliant with all of her home medications including Entresto, Lasix, and Xarelto. However, has been noncompliant with her CardioMEMS device. Is supposed to take daily readings, but has not checked her device in many months. Pt currently smokes 2-3 cigarettes a day. In the ED pt was tachycardic up to 103, tachypneic up to 22, hypertensive up to 164/66, and satting at 88% on RA, though desatting to 80% with ambulation. Labs were significant for BNP 1478, lactic acid 2.5, AST 33, and troponin 589.8 (around baseline). Stable H&H. No significant electrolyte abnormalities. Renal function WNL. CXR showed central vascular prominence with diffuse interstitial opacities suggestive of pulmonary edema vs atypical infection. EKG demonstrated atrial sensed ventricular paced rhythm with frequent PVCs but no significant ischemic changes. Pt was treated with furosemide 60 mg IV. Pt will be admitted to the hospital acute hypoxic respiratory failure in the setting of acute CHF exacerbation. Acute hypoxic respiratory failure due to mild HFrEF exacerbation Pt has not checked her CardioMEMS device in many months. BNP was lower then baseline. patient received IV lasix in ID with good urine output and resolution of her symptoms. She was continued on her baseline medications and was weaned off of supplemental oxygen. She was seen by Cardiology who recommended to add Aldactone to her regimen. Her shortness of breath and hypoxia resolved quicker than expected. She has been able to ambulate without shortness of breath in his eager to return home. Lactic acidosis Secondary to hypoxia not sepsis. Tachycardia and tachypnea secondary to CHF exacerbation, not sepsis. Leukocytosis secondary to recent course of prednisone. tachycardia, tachypena and leukocytosis resolved. Troponin Patient's troponin 589.8, in line with previous, at baseline and remained flat on repeat. Pt asymptomatic, EKG without ischemic changes. no further work up required at this time. Time Attestation Discharge Coordination Time (in mins): 36 Quality: Safe Use of Opioids Does Pt have an Active Cancer Diagnosis on the Problem List?: No Quality: Stroke Does the patient have a stroke diagnosis?: No Physical Exam Vital Signs: Vital Signs: Last Vital Signs Temp 98.1 F 05/06/24 11:20 Pulse 68 05/06/24 11:20 Resp 12 05/06/24 11:20 BP 113/56 L 05/06/24 11:20 Pulse Ox 93 05/06/24 11:20 O2 Del Method Room Air 05/06/24 11:20 O2 Flow Rate 3 05/06/24 07:47 Oxygen Flow Rate 2 05/05/24 19:14 BMI result Body Mass Index 43.0 Const: General: alert and awake Nutritional Appearance: obese [place] ation/consciousness: patient oriented x3 Resp: Effort & Inspection: no respiratory distress and no use of accessory muscles Auscultation: clear to auscultation bilaterally Cardio: Rate: regular rate Neuro: General: patient oriented x3 DS: Data Data Completed and Pending Completed studies during hospitalization [Text1]: Procedures Assistance with Respiratory Ventilation, Less than 24 Consecutive Hours, Continuous Positive Airway Pressure (03/29/24) Dilation of Right Ureter with Intraluminal Device, Via Natural or Artificial Opening Endoscopic (02/09/24) Fluoroscopy of Right Kidney, Ureter and Bladder (02/09/24) Insertion of Infusion Device into Superior Vena Cava, Percutaneous Approach (02/09/24) Introduction of Vasopressor into Peripheral Vein, Percutaneous Approach (02/09/24) Ultrasonography of Superior Vena Cava, Guidance (02/09/24) Labs on day of discharge: Laboratory Results - last 24 hr 05/05/24 05/05/24 05/05/24 19:43 20:38 20:40 WBC 14.2 H RBC 5.06 Hgb 14.8 Hct 45.2 MCV 89.3 MCH 29.2 MCHC 32.7 RDW 16.9 H Plt Count 145 L MPV 11.2 Immature Gran % (Auto) 0.5 H Neut % (Auto) 70.6 Lymph % (Auto) 22.5 [place] % (Auto) 4.5 Eos % (Auto) 1.4 Baso % (Auto) 0.5 Lymph # (Auto) 3.2 [place] # (Auto) 0.6 Eos # (Auto) 0.2 Baso # (Auto) 0.1 Abs Immat Gran (auto) 0.07 H Absolute Neuts (auto) 10.0 H Absolute Nucleated RBC 0.000 Nucleated RBC % (auto) 0.0 Hold Blue Top SEE NOTE Sodium 140 Potassium 4.0 Chloride 110 H Carbon Dioxide 21 L Anion Gap 13 BUN 13 Creatinine 0.86 Estim Creat Clear Calc 62.6 Estimated GFR > 60 POC Glucose Random Glucose 198 H Lactic Acid 2.5 H* Calcium 8.7 Magnesium Total Bilirubin 0.9 AST 33 H ALT 22 Alkaline Phosphatase 143 H Troponin I High Sens 589.8 H* B-Natriuretic Peptide 1478 H Total Protein 7.4 Albumin 3.8 Influenza Type A (PCR) NEGATIVE Influenza Type B (PCR) NEGATIVE RSV RNA Qual (PCR) NEGATIVE SARS-CoV-2 RNA (RT-PCR) NEGATIVE 05/06/24 05/06/24 05/06/24 04:51 07:45 08:44 WBC 9.8 RBC 4.70 Hgb 13.7 Hct 41.6 MCV 88.5 MCH 29.1 MCHC 32.9 RDW 16.8 H Plt Count 147 L MPV 10.8 Immature Gran % (Auto) 0.5 H Neut % (Auto) 52.3 Lymph % (Auto) 38.9 [place] % (Auto) 6.0 Eos % (Auto) 1.3 Baso % (Auto) 1.0 Lymph # (Auto) 3.8 [place] # (Auto) 0.6 Eos # (Auto) 0.1 Baso # (Auto) 0.1 Abs Immat Gran (auto) 0.05 H Absolute Neuts (auto) 5.1 Absolute Nucleated RBC 0.000 Nucleated RBC % (auto) 0.0 Hold Blue Top Sodium 141 Potassium 3.7 Chloride 111 H Carbon Dioxide 23 Anion Gap 11 L BUN 16 Creatinine 1.08 Estim Creat Clear Calc 49.9 Estimated GFR 50 POC Glucose 141 H Random Glucose 156 H Lactic Acid Calcium 8.4 Magnesium 2.2 Total Bilirubin AST ALT Alkaline Phosphatase Troponin I High Sens 565.5 H* B-Natriuretic Peptide Total Protein Albumin Influenza Type A (PCR) Influenza Type B (PCR) RSV RNA Qual (PCR) SARS-CoV-2 RNA (RT-PCR) 05/06/24 11:18 WBC RBC Hgb Hct MCV MCH MCHC RDW Plt Count MPV Immature Gran % (Auto) Neut % (Auto) Lymph % (Auto) [place] % (Auto) Eos % (Auto) Baso % (Auto) Lymph # (Auto) [place] # (Auto) Eos # (Auto) Baso # (Auto) Abs Immat Gran (auto) Absolute Neuts (auto) Absolute Nucleated RBC Nucleated RBC % (auto) Hold Blue Top Sodium Potassium Chloride Carbon Dioxide Anion Gap BUN Creatinine Estim Creat Clear Calc Estimated GFR POC Glucose 171 H Random Glucose Lactic Acid Calcium Magnesium Total Bilirubin AST ALT Alkaline Phosphatase Troponin I High Sens B-Natriuretic Peptide Total Protein Albumin Influenza Type A (PCR) Influenza Type B (PCR) RSV RNA Qual (PCR) SARS-CoV-2 RNA (RT-PCR) Discharge Plan Discharge Anticipated Discharge Date/Time: 05/06/24 12:09 Patient Disposition: Home, Self-Care Discharge Diagnosis: chf Referrals: Carmina Varela MD [Primary Care Provider] - 1 Week Korey Cazares MD [Physician] - 1 Week Discharge Medications: New spironolactone [Aldactone] 25 mg tablet 25 mg PO DAILY 90 Days Qty: 90 0RF Continued citalopram 20 mg tablet 20 mg PO DAILY Xarelto 20 mg tablet 20 mg PO DAILY@1700 ZzzQuil 50 mg/30 mL Liquid 50 mg PO BEDTIME PRN (Reason: Sleep) insulin glargine [Lantus Solostar U-100 Insulin] 100 unit/mL (3 mL) insulin pen 28 unit subcut BEDTIME carvedilol 25 mg Tablet 25 mg PO BID Rx Instructions: must administer with a meal/food Jardiance 25 mg Tablet 25 mg PO DAILY sacubitril-valsartan [Entresto] 97-103 mg Tablet 1 tab PO BEDTIME Combivent Respimat 20-100 mcg/actuation mist 1 puff INHALATION QID PRN (Reason: wheezing) furosemide 40 mg tablet 40 mg PO BID Qty: 180 1RF insulin aspart U-100 100 unit/mL (3 mL) insulin pen 1 sliding scale dose subcut TIDAC atorvastatin 80 mg tablet 80 mg PO BEDTIME Discharge Orders: Discharge Order (Routine); Ordered 05/06/24 Ordered By: Dariana Summers Diet: Low salt diet Activity on Discharge: As tolerated Stand Alone Forms: Patient Portal Discharge page Print Language: [place] Other Ambulatory Orders: Basic Metabolic Panel (Routine) Timeframe: 1 Week Facility: [facility] - Location: Laboratory Ordered By: Dariana Summers Care Plan Goals: see below Health Concerns: Fluid overload Plan of Treatment: Continue taking Lasix 40 mg twice daily Start taking Aldactone as prescribed repeat labs in one week monitor weight daily; follow low salt diet transmit cardiomems as instructed by cardiology Assessment: See discharge summary
--- NOTE | 2024-05-06 13:43 | MHC.CM.PN ---
Pt has been medically cleared for DC, she will go home via [facility] shuttle, plan is self care.
== END 2024-05-06 13:47 | disposition home or self-care (01) | DRG 291 ==
LOC: HO.ED 20:47 → HO.EDOVER 21:05 → HO.IMC 05-06 05:03
PROVIDERS: Student in an Organized Health Care Education/Training Program; Admitting Provider Internal Medicine; Emergency Provider Emergency Medicine; PCP Internal Medicine; Visit Provider Physician Assistant Medical
DX: I11.0 Hypertensive heart disease with heart failure (principal); I50.43 Acute on chronic combined systolic (congestive) and diastolic (congestive) heart failure; J96.01 Acute respiratory failure with hypoxia; E87.20 Acidosis, unspecified; G47.33 Obstructive sleep apnea (adult) (pediatric); J44.9 Chronic obstructive pulmonary disease, unspecified; I25.10 Atherosclerotic heart disease of native coronary artery without angina pectoris; F17.210 Nicotine dependence, cigarettes, uncomplicated; Z71.6 Tobacco abuse counseling; Z20.822 Contact with and (suspected) exposure to COVID-19; Z95.818 Presence of other cardiac implants and grafts; Z95.810 Presence of automatic (implantable) cardiac defibrillator; Z95.5 Presence of coronary angioplasty implant and graft; Z79.4 Long term (current) use of insulin; Z79.01 Long term (current) use of anticoagulants; Z79.899 Other long term (current) drug therapy
CPT/HCPCS: 0241U; 36415; 71045; 80048; 80053; 82947; 83605; 83735; 83880; 84484; 85025; 87040; 93005; 99285; J1940

== ENCOUNTER → 2024-05-05 19:15 | Outpatient (BNV) | payer OTHER, SELFPAY ==
[2021-10-15 11:10] VITALS: BP 110/70; BMI 46.0
== END ==
PROVIDERS: Admitting Provider Internal Medicine; Emergency Provider Emergency Medicine; PCP Internal Medicine; Visit Provider Internal Medicine
DX: I49.3 Ventricular premature depolarization (principal)
CPT/HCPCS: 93010

== ENCOUNTER → 2024-05-05 20:00 | Outpatient (BNV) | payer OTHER, SELFPAY ==
[2021-10-15 11:10] VITALS: BP 110/70; BMI 46.0
== END ==
PROVIDERS: Emergency Provider Emergency Medicine; PCP Internal Medicine; Visit Provider Radiology Diagnostic Radiology
DX: J81.0 Acute pulmonary edema (principal)
CPT/HCPCS: 71045

== ENCOUNTER → 2024-05-05 20:54 | Outpatient (BNV) | payer OTHER, SELFPAY ==
[2021-10-15 11:10] VITALS: BP 110/70; BMI 46.0
== END ==
PROVIDERS: Admitting Provider Internal Medicine; Emergency Provider Emergency Medicine; PCP Internal Medicine; Visit Provider Student in an Organized Health Care Education/Training Program
DX: I50.9 Heart failure, unspecified (principal); R09.02 Hypoxemia
CPT/HCPCS: 99223

== ENCOUNTER → 2024-05-05 20:54 | Outpatient (BNV) | payer OTHER, SELFPAY ==
[2021-10-15 11:10] VITALS: BP 110/70; BMI 46.0
== END ==
PROVIDERS: Admitting Provider Internal Medicine; Emergency Provider Emergency Medicine; PCP Internal Medicine; Visit Provider Internal Medicine
DX: I50.43 Acute on chronic combined systolic (congestive) and diastolic (congestive) heart failure (principal); I42.9 Cardiomyopathy, unspecified; I25.10 Atherosclerotic heart disease of native coronary artery without angina pectoris; Z95.810 Presence of automatic (implantable) cardiac defibrillator
CPT/HCPCS: 99223

== ENCOUNTER 2024-06-06 13:10 | Outpatient (AMB) | payer OTHER, SELFPAY ==
[2021-10-15 11:10] VITALS: BP 110/70; BMI 46.0
[2024-06-06 13:17] VITALS: BP 120/78; PULSE 77; O2SAT 98; BMI 40.7
--- NOTE | 2024-06-06 13:17 | MHC.OFFVIS ---
Vital Signs 06/06/24 13:17 Height 4 ft 11 in Weight 201 lb 11.567 oz BMI 40.7 BP 120/78 Blood Pressure Location Lt brachial Position Sitting Pulse 77 Pulse Source Pulse Oximeter Pulse Oximetry (%) 98 Oxygen Delivery Method Room Air Intake Visit Reasons: Obstructive sleep apnea Intake Note: pt is here for follow up and states she has a new cpap, doing well Portainer Operator Required: No Allergies No Known Allergies Allergy (Verified 06/06/24 13:25) Medication List - Last Reconciled 06/06/24 by Dario Ling MD atorvastatin 80 mg PO BEDTIME carvedilol 25 mg PO BID citalopram 20 mg PO DAILY diphenhydramine HCl (ZzzQuil) 50 mg PO BEDTIME PRN empagliflozin (Jardiance) 25 mg PO DAILY furosemide 40 mg orally 2 tabs in am (80mg) and 1 tab in pm (40mg); Additional dose in the PM when directed by cardiology 90 days insulin aspart U-100 1 sliding scale dose subcut TIDAC insulin glargine (Lantus Solostar U-100 Insulin) 28 units subcut BEDTIME ipratropium-albuterol 20-100 mcg/actuation (Combivent Respimat) 1 puff inhalation QID PRN rivaroxaban (Xarelto) 20 mg PO QPM sacubitril-valsartan 97-103 mg (Entresto) 1 tab PO BEDTIME spironolactone (Aldactone) 25 mg PO DAILY 90 days Do you need a note to return to daycare/school/sports/work: No HPI HPI Obstructive sleep apnea: Details: THIS 69 YEARS OLD FEMALE WHO IS MORBIDLY OBESE AND KNOWN CASE OF OBSTRUCTIVE SLEEP APNEA ALSO HAS CHRONIC CONGESTIVE HEART FAILURE. SHE HAS HAD CARDIAC BYPASS IN THE PAST. RECENTLY SHE WAS ADMITTED OVERNIGHT IN THE HOSPITAL WITH INCREASED CONGESTIVE HEART FAILURE WITH INCREASED SHORTNESS OF BREATH. WITH THE ADJUSTMENT IN DIURETIC DOES SHE HAS DIURESED QUITE WELL AND HAS LOST SOME WEIGHT. AND HAS THE NEW CPAP DEVICE AND NEW SUPPLIES AND IS USING IT VERY REGULARLY EVERY NIGHT. BEFORE SHE GOT THE NEW SUPPLIES SHE HAD A DEFECTIVE FROM THE CPAP SHE DENIES COUGH OR WHEEZING. [facility] Medical History CHF (congestive heart failure) Sleep apnea Presence of CardioMEMS HF system Hx of myocardial infarction Anxiety and depression Osteoarthritis Fatty liver Restrictive lung disease TAQUERIA treated with BiPAP Morbid obesity Biventricular ICD (implantable cardioverter-defibrillator) in place CAD (coronary artery disease) Non-rheumatic aortic stenosis Atherosclerotic cardiovascular disease Acute on chronic systolic and diastolic heart failure, NYHA class 3 Leukocytosis Dyspnea Transaminitis Hypoxia Congestive heart failure TAQUERIA (obstructive sleep apnea) NSVT (nonsustained ventricular tachycardia) Cardiomyopathy Chronic systolic heart failure Diabetes mellitus HLD (hyperlipidemia) HTN (hypertension) Surgical History History of incision and drainage Status post coronary artery bypass graft Stented coronary artery Hx of CABG History of cardiac cath Hx of cardiac cath Hx of cardiac cath Hx of appendectomy History of cholecystectomy Family History Father No problems noted. Mother No problems noted. Social History Household Members: Family Household Members Other:: son and daughter in law Housing: Apartment Are you a primary hospice patient care secretary to a significant other at home: No Do you presently have visiting nurse or other home services: No Alcohol intake: never Comment: chronic back pain Patient Tobacco Use Status: Current everyday Tobacco user Tobacco use type: Cigarette Cigarette Packs Per Day: 0.25 Cigarettes Per Day: 5 Years Smoked: 30 e-Cigarette/Vaping Use: Never Used Second Hand Smoke Exposure: Yes Advance Directives Date on File: 11/07/22 service: No Current occupational status: unemployed and disabled Current occupation: rt hand Review of Systems Const All systems reviewed & are unremarkable except as noted in HPI and below Reports no additional complaints Eyes Reports no additional complaints ENT Reports no additional complaints Card Denies chest pain, Denies irregular heart rhythm, Reports leg edema and Reports dyspnea on exertion Resp Reports as per HPI and Reports dyspnea on exertion GI Reports no additional complaints Reports no additional complaints Musc Reports no additional complaints Skin/Breast Reports system reviewed and no additional complaints, except as documented Neuro Reports no additional complaints Psych Reports depression (CONTROLLED WITHMED) Endo Reports no additional complaints Jeremie/Lymph Reports no additional complaints Physical Exam Vital Signs: Last Vital Signs Pulse 77 06/06/24 13:17 BP 120/78 06/06/24 13:17 Pulse Ox 98 06/06/24 13:17 Oxygen Delivery Method Room Air 06/06/24 13:17 BMI result Body Mass Index 40.7 Const Other: GROSSLY OBESE , WITH BULKY ABDOMEN AND LOWER EXTREMITIES. General: comfortable, no acute distress, alert and awake Orientation/consciousness: patient oriented x3 HEENT Head: Yes normal to inspection General nose exam: No nasal polyps present and No nasal discharge present Face and sinus: Yes sinuses nontender Mouth: oropharynx abnormals (NARROW AND CROWDED, MALLAMPATI CLASS 3) Throat: Yes posterior oropharynx normal Eyes General: appearance normal, both eyes and all related structures Neck Neck: Yes normal visual inspection, Yes no lymphadenopathy, Yes trachea midline and Yes no JVD Thyroid: Thyroid normal Chest Chest palpation & inspection: abnormal inspection of the chest (MIDLINE SCAR FROM PREVIOUS CABG SURGERY, AND PACEMAKER LEFT PECTORAL AREA), normal palpation of entire chest wall and no tenderness Resp Auscultation: no crackles, no wheezes and diminished lung sounds (OVER BASES ) Cardio Palpation: PMI not normal (NOT PALPABLE) Rate: regular rate Rhythm: regular rhythm Heart sounds: no gallops and Murmur heart sound present (FAINT SYSTOLIC MURMUR OVER AORTIC AREA) GI Palpation (GI): Soft to palpation, Tenderness to palpation present (GI), No hepatosplenomegaly present, Palpable mass present and Other GI palpation findings present (ABDOMEN IS GROSSLY OBESE AND PENDULOUS) Auscultation: normal bowel sounds Back/Spine/Pelvis Thoracic/Lumbar Spine: thoracic and lumbar spine normal to inspection and thoraco-lumbar ROM limited Skin General skin exam: no rashes or lesions noted Neuro General: patient oriented x3 and no focal motor deficits Cranial nerves: Yes CN's II-XII intact bilaterally Extrem General: Yes normal to inspection, Yes no clubbing, cyanosis or edema (SHE DOES HAVE CHRONIC PROBLEM OF STASIS EDEMA BUT NONE TODAY. ), Yes no calf tenderness and No venous stasis dermatitis Psych Appearance: grossly normal and well kempt Speech and movement: Normal speech and movement present Results Reviewed Results Reviewed: COMPLIANCE REPORT FOR THE LAST 30 NIGHTS IS REVIEWED SHE HAS USED 27/30 NIGHTS, 90% AVERAGE AVERAGE USE IT PER NIGHT 6 HOURS 52 MINUTES PRESSURE 13 CM. THERE IS MINIMAL AIR LEAK. RESIDUAL AHI 9.6 WHICH IS RELATIVELY HIGH, IT IS DUE TO MIXED OBSTRUCTIVE AND CENTRAL SLEEP APNEA. PATIENT HAD FREQUENT CENTRAL APNEAS AND DARSHAN STROKE BREATHING PROBABLY RELATED TO CONGESTIVE HEART FAILURE. Assessment & Plan Assessment & Plan (1) Morbid obesity: Comment: SHE REMAINS MORBIDLY OBESE, DIFFICULT FOR HER TO LOSE WEIGHT, BECAUSE SOME OF THAT DEPENDS UPON FLUID RETENTION. EXPLAINED TO THE PATIENT IN DETAIL. SHE NEEDS TO LOSE SOME WEIGHT EVEN A FEW LB PER MONTH WILL BE FINE. SINCE HER HOSPITALIZATION LAST MONTH SHE HAS LOST 10 LB OF WEIGHT. THIS IS PROBABLY DUE TO INCREASED DIURETIC THERAPY. Code(s): E66.01 - Morbid (severe) obesity due to excess calories Category: Medical Plan: ADVISED TO STAY PHYSICALLY ACTIVE. CONTINUE THE CURRENT DIURETIC THERAPY. WALK DAILY IF MUCH SHE CAN. (2) TAQUERIA treated with BiPAP: Comment: CHRONIC COMPLEX SLEEP APNEA, TREATED WITH ASV MODE ,( PRESSURE 13 CM, WITH BACKUP RATE OF 12. Nasal pillows ) PATIENT IS VERY COMPLIANT AND BENEFITS FROM THE USE OF CPAP. Code(s): G47.33 - Obstructive sleep apnea (adult) (pediatric) Category: Medical Plan: ADVISED TO CONTINUE USING THE CPAP REGULARLY, ORDER FOR NEW SUPPLIES SENT TO DME. (3) Restrictive lung disease: Comment: PULMONARY FUNCTION TEST HAS SHOWN THAT SHE HAS MILD TO MODERATE DEGREE OF RESTRICTIVE DISORDER AND NO OBSTRUCTIVE DISORDER. THIS IS SECONDARY TO HER OBESITY. PATIENT MAY HAVE A MILD DEGREE OF OBSTRUCTIVE. AIRWAY DISORDER SHE HAS COMBIVENT RESPIMAT HAND AND SHE IS INSTRUCTED TO USE IT 1 INHALATION Q 6 HOURS BUT ONLY P.R.N.. Code(s): J98.4 - Other disorders of lung Category: Medical Plan: NOTED ABOVE Coding Level of Care Code Est Pt Level 3 (05777) Diagnoses Morbid obesity E66.01 TAQUERIA treated with BiPAP G47.33 Restrictive lung disease J98.4
== END 2024-06-06 13:34 | disposition home or self-care (01) ==
PROVIDERS: PCP Internal Medicine; Visit Provider Internal Medicine
DX: E66.01 Morbid (severe) obesity due to excess calories (principal); G47.33 Obstructive sleep apnea (adult) (pediatric); J98.4 Other disorders of lung
CPT/HCPCS: 99213

== ENCOUNTER → 2024-06-06 13:10 | Outpatient (BNVA) | payer OTHER, SELFPAY ==
[2021-10-15 11:10] VITALS: BP 110/70; BMI 46.0
== END ==
PROVIDERS: PCP Internal Medicine; Visit Provider Internal Medicine
DX: G47.33 Obstructive sleep apnea (adult) (pediatric) (principal); J98.4 Other disorders of lung; E66.01 Morbid (severe) obesity due to excess calories; Z68.41 Body mass index [BMI] 40.0-44.9, adult
CPT/HCPCS: 99212

== ENCOUNTER 2024-06-09 13:06 | Outpatient (AMB) | payer OTHER, SELFPAY ==
[2021-10-15 11:10] VITALS: BP 110/70; BMI 46.0
--- OUTSIDE RECORDS SUMMARY | 2024-06-09 13:13 | XMS_ITS | Encounter Summary ---
Author Organization [facility] Address [address] [place] [address] Care Team Providers Care District Resource Officer Name Role Phone Carmina Varela MD Primary Care Prov ider Db Martino MD Unavailable Unavailable Dario Ling Unavailable Unavailable Reason for Visit * Reason Onset Date Comments DME Request 04/16/2023 Encounter Details Date Type Department Care Team Description 04/16/2023 Telephone Adult Medicine [address] [address] Carmina Varela MD [address] [place] [phone] DME Request Social History Tobacco Use Types Packs/Day Years Used Date Smoking Tobacco: Some Days Cigarettes 0.5 Smokeless Tobacco: Never Comments:quit 03/25/15 Alcohol Use Standard Drinks/Week Comments No 0 (1 standard drink = 0.6 oz pur e alcohol) Sex Assigned at Date Recorded Not on file Job Start Date Occupation Industry Not on file Not on file Not on file documented as of this encounter Miscellaneous Notes * Telephone Encounter - Claudette Eli L.P.N. - 04/16/2023 12:33 PM EST Please discuss need for incontinence supplies and add dx to her problem list She has appt scheduled with you on 04/28/23 Thank you Claudette QUESADA documented in this encounter Plan of Treatment Not on file documented as of this encounter Visit Diagnoses Not on filedocumented in this encounter Care Teams District Resource Officer Relationship Specialty Start Date End Date Carmina Varela MD [address] [place] [address] PCP - General Internal Medicine 11/26/21 Db Martino MD [address] [place] [address]798 Specialist Cardiology 09/01/22 Dario Ling [address] [place] [address] Specialist Pulmonology 09/01/22 documented as of this encounter
--- OUTSIDE RECORDS SUMMARY | 2024-06-09 13:13 | XMS_ITS | Encounter Summary ---
Author Organization [facility] Address [address] [place] [address] Care Team Providers Care Mems Device Scientist Name Role Phone Carmina Varela MD Primary Care Prov ider Db Martino MD Unavailable Unavailable Dario Ling Unavailable Unavailable Encounter Details Date Type Department Care Team Description 03/30/2023 Orders Only Medical Records [address] [place] [address] [facility] Social History Tobacco Use Types Packs/Day Years Used Date Smoking Tobacco: Some Days Cigarettes 0.5 Smokeless Tobacco: Never Comments:quit 03/25/15 Alcohol Use Standard Drinks/Week Comments No 0 (1 standard drink = 0.6 oz pur e alcohol) Sex Assigned at Date Recorded Not on file Job Start Date Occupation Industry Not on file Not on file Not on file documented as of this encounter Plan of Treatment Not on file documented as of this encounter Procedures Procedure Name Priority Date/Time Associated Diagnosis Comments OUTSIDE PLAIN FILM Routine 03/19/2023 documented in this encounter Results * OUTSIDE PLAIN FILM (03/19/2023) [facility] RADIOLOGY documented in this encounter Visit Diagnoses Not on filedocumented in this encounter Care Teams Mems Device Scientist Relationship Specialty Start Date End Date Carmina Varela MD [address] [place], [place] [phone] PCP - General Internal Medicine 11/26/21 Db Martino MD [address] [place] [address] Specialist Cardiology 09/01/22 Dario Ling [address] [place] [address] Specialist Pulmonology 09/01/22 documented as of this encounter
--- OUTSIDE RECORDS SUMMARY | 2024-06-09 13:14 | XMS_ITS | Encounter Summary ---
Author Organization [facility] Address [address] [place] [address] Care Team Providers Care Swimming Instructor Name Role Phone [place] Colasacco, Nancy DO Primary Care Pro vider Unavailable Radha Mccray Primary Care Provider Unavailabl e [place] Colasacco, Nancy DO Unavailable Unavailable [place] Colasacco, Nancy DO Primary Care Pro vider Unavailable Shawanda Oliver MD Primary Care Provider Noah Gramajo Primary Care Provider Carmina Varela MD Primary Care Prov ider Db Martino MD Unavailable Unavailable Dario Ling Unavailable Unavailable Encounter Details Date Type Department Care Team Description 11/21/2013 Hospital Medical Records [address] [place] [address] Social History Tobacco Use Types Packs/Day Years Used Date Smoking Tobacco: Some Days Cigarettes 0.5 Smokeless Tobacco: Never Comments:< 1/2 ppd Alcohol Use Standard Drinks/Week Comments No 0 [...] on filedocumented in this encounter Care Teams Swimming Instructor Relationship Specialty Start Date End Date Nancy Elliott DO PCP - General Internal Medicine 11/07/13 01/27/14 Radha Mccray PCP - General 01/28/14 06/25/20 Nancy Elliott DO PCP - General Internal Medicine 06/26/20 08/23/20 Shawanda Oliver MD PCP - General Internal Medicine 08/24/20 10/31/21 Noah Parks [address] [place] [address] PCP - General Internal Medicine 11/01/21 11/25/21 Carmina Varela MD [address] [place] [address] PCP - General Internal Medicine 11/26/21 Nancy Elliott, DO Internal Medicine 01/28/14 08/31/22 Db Martino MD [address] [place] [address]654 Specialist Cardiology 09/01/22 Dario Ling [address] [place] [address]81 Specialist Pulmonology 09/01/22 documented as of this encounter
--- OUTSIDE RECORDS SUMMARY | 2024-06-09 13:14 | XMS_ITS | Encounter Summary ---
Author Organization [facility] Address [address] [place] [address] Care Team Providers Care System Safety Engineer Name Role Phone Radha Mccray Primary Care Provider Unavailabl e [place] Colasacco, Nancy DO Unavailable Unavailable [place] Colasacco, Nancy DO Primary Care Pro vider Unavailable Shawanda Oliver MD Primary Care Provider Noah Gramajo Primary Care Provider [phone] Carmina Varela MD Primary Care Prov ider Db Martino MD Unavailable Unavailable Dario Ling Unavailable Unavailable Encounter Details Date Type Department Care Team Description 05/19/2014 [place] Floor Report Medical Records [address] [place] [address] Db Martino MD Social History Tobacco Use Types Packs/Day Years Used Date Smoking Tobacco: Former Cigarettes 0.5 Comments:quit 02/08/14 Alcohol Use Standard Drinks/Week Comments No 0 [...] on filedocumented in this encounter Care Teams System Safety Engineer Relationship Specialty Start Date End Date Radha Mccray PCP - General 01/28/14 06/25/20 Nancy Elliott DO PCP - General Internal Medicine 06/26/20 08/23/20 Shawanda Oliver MD PCP - General Internal Medicine 08/24/20 10/31/21 Noah Parks [address] [place] [address] PCP - General Internal Medicine 11/01/21 11/25/21 Carmina Varela MD [address] [place] [address] PCP - General Internal Medicine 11/26/21 Nancy Elliott, Internal Medicine 01/28/14 08/31/22 Db Martino MD [address] [place] [address] Specialist Cardiology 09/01/22 Dario Ling [address] [place] [address] Specialist Pulmonology 09/01/22 documented as of this encounter
--- OUTSIDE RECORDS SUMMARY | 2024-06-09 13:14 | XMS_ITS | Encounter Summary ---
Author Organization [facility] Address [address] [place] [address] Care Team Providers Care Oliving Machine Operator Name Role Phone Radha Mccray Primary Care Provider Unavailabl e [place] Colasacco Nancy DO Unavailable Unavailable [place] Colasacco, Nancy DO Primary Care Pro vider Unavailable Shawanda Oliver MD Primary Care Provider Noah Gramajo Primary Care Provider [phone] Carmina Varela MD Primary Care Prov ider Db Martino MD Unavailable Unavailable Dario Ling Unavailable Unavailable Encounter Details Date Type Department Care Team Description 10/30/2014 Hospital Medical Records [address] [place] [address] Zack Luevano Social History Tobacco Use Types Packs/Day Years [...] on filedocumented in this encounter Care Teams Oliving Machine Operator Relationship Specialty Start Date End Date Radha Mccray PCP - General 01/28/14 06/25/20 Nancy Elliott DO PCP - General Internal Medicine 06/26/20 08/23/20 Shawanda Oliver MD PCP - General Internal Medicine 08/24/20 10/31/21 Noah Parks [address] [place] [address] PCP - General Internal Medicine 11/01/21 11/25/21 Carmina Varela MD [address] [place] [address] PCP - General Internal Medicine 11/26/21 Nancy Elliott, DO Internal Medicine 01/28/14 08/31/22 Db Martino MD [address] [place] [address]347 Specialist Cardiology 09/01/22 Dario Ling [address] [place] [address] Specialist Pulmonology 09/01/22 documented as of this encounter
--- OUTSIDE RECORDS SUMMARY | 2024-06-09 13:14 | XMS_ITS | Encounter Summary ---
Author Organization [facility] Address [address] [place] [address] Care Team Providers Care Component Assembler Supervisor Name Role Phone Nancy Elliott DO Unavailable Unavailable Shawanda Oliver MD Primary Care Provider Noah Gramajo Primary Care Provider [phone] Carmina Varela MD Primary Care Prov ider Db Martino MD Unavailable Unavailable Dario Ling Unavailable Unavailable Encounter Details Date Type Department Care Team Description 01/03/2021 Log Processor Operator Report Medical Records [address] [place] [address] Mariel Arellano, ACADEMIC SERVICES COORDINATOR Social History Tobacco Use Types Packs/Day Years Used Date Smoking Tobacco: Former Cigarettes 0.5 Smokeless Tobacco: Never Comments:quit 03/25/15 Alcohol Use Standard Drinks/Week Comments No 0 (1 standard drink = 0.6 oz pur e alcohol) Sex Assigned at Date Recorded Not on file Job Start Date Occupation Industry Not on file Not on file Not on file COVID-19 Exposure Response Date Recorded In the last month, have you been in contact with someone who was confirmed or suspected to have Coronavirus / COVID-19? No / Unsure 01/03/2021 10:33 AM EDT documented as of this encounter Plan of Treatment Not on file documented as of this encounter Visit Diagnoses Not on filedocumented in this encounter Care Teams Component Assembler Supervisor Relationship Specialty Start Date End Date Shawanda Oliver MD PCP - General Internal Medicine 08/24/20 10/31/21 Noah Parks [address] [place] [address] PCP - General Internal Medicine 11/01/21 11/25/21 Carmina Varela MD [address] [place] [address] PCP - General Internal Medicine 11/26/21 Nancy Elliott, DO Internal Medicine 01/28/14 08/31/22 Db Maritno MD [address] [place] [address] Specialist Cardiology 09/01/22 Dario Ling [address] [place] [address] Specialist Pulmonology 09/01/22 documented as of this encounter
--- OUTSIDE RECORDS SUMMARY | 2024-06-09 13:14 | XMS_ITS | Encounter Summary ---
Author Organization [facility] Address [address] [place] [address] Care Team Providers Care Brand Inspector Name Role Phone Radha Mccray Primary Care Provider Unavailabl e Ariadne BartonoStephonNancy DO Unavailable Unavailable Mariamakoraviak Micko Nancy DO Primary Care Pro vider Unavailable Shawanda Oliver MD Primary Care Provider Noah Gramajo Primary Care Provider Carmina Varela MD Primary Care Prov ider Db Martino MD Unavailable Unavailable Dario Ling Unavailable Unavailable Encounter Details Date Type Department Care Team Description 10/04/2014 Hospital Medical Records [address] [place] [address] Social History Tobacco Use Types Packs/Day Years [...] on filedocumented in this encounter Care Teams Brand Inspector Relationship Specialty Start Date End Date Radha Mccray PCP - General 01/28/14 06/25/20 Nancy Elliott DO PCP - General Internal Medicine 06/26/20 08/23/20 Shawanda Oliver MD PCP - General Internal Medicine 08/24/20 10/31/21 Noah Parks [address] [place] [address] PCP - General Internal Medicine 11/01/21 11/25/21 Carmina Varela MD [address] [place] [address] PCP - General Internal Medicine 11/26/21 Nancy Elliott, Internal Medicine 01/28/14 08/31/22 Db Martino MD [address] [place] [address] Specialist Cardiology 09/01/22 Dario Ling [address] [place] [address] Specialist Pulmonology 09/01/22 documented as of this encounter
--- OUTSIDE RECORDS SUMMARY | 2024-06-09 13:14 | XMS_ITS | Encounter Summary ---
Author Organization [facility] Address [address] [place] [address] Care Team Providers Care Gas Utility Worker Name Role Phone Nancy Elliott DO Unavailable Unavailable Shawanda Oliver MD Primary Care Provider Noah Gramajo Primary Care Provider [phone] Carmina Varela MD Primary Care Prov ider Db Martino MD Unavailable Unavailable Dario Ling Unavailable Unavailable Encounter Details Date Type Department Care Team Description 12/18/2020 Seismic Observer Report Medical Records [address] [place] [address] Db Martino MD Social History Tobacco Use [...] have Coronavirus / COVID-19? No / Unsure 12/05/2020 9:10 AM EDT documented as of this encounter Plan of Treatment Not on file documented as of this encounter Visit Diagnoses Not on filedocumented in this encounter Care Teams Gas Utility Worker Relationship Specialty Start Date End Date Shawanda Oliver MD PCP - General Internal Medicine 08/24/20 10/31/21 Noah Parks [address] [place] [address] PCP - General Internal Medicine 11/01/21 11/25/21 Carmina Varela MD [address] [place] [address] PCP - General Internal Medicine 11/26/21 Nancy Elliott, DO Internal Medicine 01/28/14 08/31/22 Db Martino MD [address] [place] [address]00 Specialist Cardiology 09/01/22 Dario Ling [address] [place] [address] Specialist Pulmonology 09/01/22 documented as of this encounter
--- OUTSIDE RECORDS SUMMARY | 2024-06-09 13:14 | XMS_ITS | Encounter Summary ---
Author Organization [facility] Address [address] [place] [address] Care Team Providers Care Bilingual Customer Service Specialist Name Role Phone Carmina Varela MD Primary Care Prov ider Db Martino MD Unavailable Unavailable Dario Ling Unavailable Unavailable Reason for Visit * Reason Onset Date Comments Medication 12/15/2023 Encounter Details Date Type Department Care Team Description 12/15/2023 Refill Gastroenterology - [place] [address] [place] [id number] Jericho Vargas DO [address] [facility] [place] [address] Medication Social History Tobacco Use Types Packs/Day Years [...] on filedocumented in this encounter Care Teams Bilingual Customer Service Specialist Relationship Specialty Start Date End Date Carmina Varela MD [address] [place] [phone] PCP - General Internal Medicine 11/26/21 Db Martino MD [address] [place] [address]90 Specialist Cardiology 09/01/22 Dario Ling [address] [place] [address] 36094 Specialist Pulmonology 09/01/22 documented as of this encounter
--- OUTSIDE RECORDS SUMMARY | 2024-06-09 13:14 | XMS_ITS | Encounter Summary ---
Author Organization [facility] Address [address] [place] [address] Care Team Providers Care Sample Processor Name Role Phone Radha Mccray Primary Care Provider Unavailabl e [place] Colasacco, Nancy DO Unavailable Unavailable [place] Colasacco, Nancy DO Primary Care Pro vider Unavailable Shawanda Oliver MD Primary Care Provider Noah Gramajo Primary Care Provider [phone] Carmina Varela MD Primary Care Prov ider Db Martino MD Unavailable Unavailable Dario Ling Unavailable Unavailable Encounter Details Date Type Department Care Team Description 02/15/2014 Mold Making Supervisor Report Medical Records [address] [place] [address] Db Martino MD Social History Tobacco Use Types Packs/Day Years Used Date Smoking Tobacco: Every Day Cigarettes 0.5 Alcohol Use Standard Drinks/Week Comments No 0 [...] on filedocumented in this encounter Care Teams Sample Processor Relationship Specialty Start Date End Date Radha Mccray PCP - General 01/28/14 06/25/20 Nancy Elliott DO PCP - General Internal Medicine 06/26/20 08/23/20 Shawanda Oliver MD PCP - General Internal Medicine 08/24/20 10/31/21 Noah Parks [address] [place] [address] PCP - General Internal Medicine 11/01/21 11/25/21 Carmina Varela MD [address] [place] [address] PCP - General Internal Medicine 11/26/21 Nancy Elliott DO Internal Medicine 01/28/14 08/31/22 Db Martino MD [address] [place] [address] Specialist Cardiology 09/01/22 Dario Ling [address] [place] [address] Specialist Pulmonology 09/01/22 documented as of this encounter
--- OUTSIDE RECORDS SUMMARY | 2024-06-09 13:14 | XMS_ITS | Encounter Summary ---
Author Organization [facility] Address [address] [place] [address] Care Team Providers Care Tar Worker Name Role Phone Radha Mccray Primary Care Provider Unavailabl e Mariamakoruslan Colasacco Nancy DO Unavailable Unavailable [place] Colasacco, Nancy DO Primary Care Pro vider Unavailable Shawanda Oliver MD Primary Care Provider Noah Gramajo Primary Care Provider [phone] Carmina Varela MD Primary Care Prov ider Db Martino MD Unavailable Unavailable Dario Ling Unavailable Unavailable Encounter Details Date Type Department Care Team Description 12/27/2015 Metal Sprayer Protective Coating Report Medical Records [address] [place] [address] Db Martino MD Social History Tobacco Use [...] on filedocumented in this encounter Care Teams Tar Worker Relationship Specialty Start Date End Date Radha Mccray PCP - General 01/28/14 06/25/20 Nancy Elliott DO PCP - General Internal Medicine 06/26/20 08/23/20 Shawanda Oliver MD PCP - General Internal Medicine 08/24/20 10/31/21 Noah Parks [address] [place] [id number] PCP - General Internal Medicine 11/01/21 11/25/21 Carmina Varela MD [address] [place] [address] PCP - General Internal Medicine 11/26/21 Nancy Elliott, Internal Medicine 01/28/14 08/31/22 Db Martino MD [address] [place] [address] Specialist Cardiology 09/01/22 Dario Ling [address] [place] [address] Specialist Pulmonology 09/01/22 documented as of this encounter
--- OUTSIDE RECORDS SUMMARY | 2024-06-09 13:14 | XMS_ITS | Encounter Summary ---
Author Organization [facility] [place] [address] Care Team Providers Care Inside Wireman Name Role Phone Carmina Ayala MD Primary Care Prov ider Reason for Visit * Reason Comments Hospital Follow-up Encounter Details Date Type Department Care Team (Late st Contact Info) Description 05/12/2024 10:30 AM EST Office Visit Adult Medicine [address] [phone] Carmina Ayala MD [address] [place] [id number] Hospital discharge follow-up (Primary Dx); Acute on chronic congestive heart failure, unspecified heart failure type (CMS/HCC); Primary hypertension Social History Tobacco Use Types Packs/Day Years Used Date Smoking Tobacco: Former Cigarettes Smokeless Tobacco: Never Tobacco Cessation:Counseling Given: Not Answered Alcohol Use Standard Drinks/Week Comments No 0 (1 standard drink = 0.6 oz pur e alcohol) Housing Instability Answer Date Recorde d Are you worried that in the next 2 months you may not have stable housing? No 03/09/2024 Food Access & Nutrition Answer Date Rec orded Do you have access to a vari ety of food including fruits and vegetables? Yes 03/09/2024 Access to Healthcare Answer Date Record ed Within the last 3 months, paradise galaviz many times did you visit the emergency department for your medical care? 1 03/09/2024 Health Literacy Answer Date Recorded How often do you need to hav e someone help you when you read instructions, pamphlets, or other written material from your doctor or pharmacy? Never 03/09/2024 Caregiver: How often do you need to have someone help you when you read instructions, pamphlets, or other written material from your doctor or pharmacy? Not on file 03/09/2024 Financial Risk Answer Date Recorded How hard is it for you to pa y for the very basics like food, housing, medical care, and air conditioning / heating? Somewhat hard 03/09/2024 Transportation Answer Date Recorded Has the lack of transportati on kept you from meetings, work, or from getting things needed for daily living? No Has the lack of transportati on kept you from medical appointments or from getting medications? No 03/09/2024 Social Isolation Answer Date Recorded How often do you feel lonely or isolated from th ose around you? Never 03/09/2024 Food Risk Answer Date Recorded Within the past 12 months we worried whether our food would run out before we got money to buy more. Never true 03/09/2024 Within the past 12 months th e food we bought just didn't last and we didn't have money to get more. Never true 03/09/2024 Dependent Care Answer Date Recorded Do you need help finding or paying for care for your loved ones. For example, director child development center or elderly care for an older adult? No 03/09/2024 Education Answer Date Recorded Do you think completing more education or training, like finishing a GED, going to college, or learning a trade, would be helpful for you? No 03/09/2024 Employment and Income Answer Date Recor ded During the last four weeks, have you been actively looking for work? No 03/09/2024 Living Situation Answer Date Recorded What is your living situation? 1 05/09/2023 Comments No Sex and Gender Information Value Date Recorded Sex Assigned at Not on file Legal Sex Female 3:08 AM EST Gender Identity Not on file Sexual Orientation Not on file documented as of this encounter Last Filed Vital Signs Vital Sign Reading Time Taken Comments Blood Pressure 110/68 05/12/2024 10:25 AM EST Pulse 70 05/12/2024 10:25 AM EST Temperature 36.4 ??C (97.5 ??F) 05/12/2024 1 0:25 AM EST Respiratory Rate 16 05/12/2024 10:2 5 AM EST Oxygen Saturation - - Inhaled Oxygen Concentration - - Weight 91.5 kg (201 lb 12.8 oz) 025 10:25 AM EST Height - - Body Mass Index 40.76 02/17/2024 9:12 AM EDT documented in this encounter Ordered Prescriptions Prescription Sig Dispense Quantity Refills Last Filled Start Date End Date empagliflozin (Jardiance) 25 mg tablet Take 1 tablet (25 mg total) by mouth 1 (one) time each day. 90 tablet 3 05/12/2024 05/12/2025 documented in this encounter Progress Notes * Carmina Ayala MD - 05/12/2024 10:30 AM ESTAssociated Problem(s): Hypertension Blood pressure is well-controlled, today 110/68. Will continue same regimen. Orders: Blood pressure monitor * Carmina Ayala MD - 05/12/2024 10:30 AM EST Images from the original note were not included. TRANSITIONAL CARE MANAGEMENT NOTE La Nena Castro is a 69 y.o. (: 1955) female presents today for a transitional care appointment. The patient was discharged with a diagnosis of: Acute respiratory failure, CHF exacerbation. Admit Date: 05/05/2024 Discharge Date: 05/06/2024 Date of Service: 05/12/2024 Facility: [facility] The discharge summary and/or Transitional Care Management documentation was reviewed. Patient presented to emergency complaining of shortness of breath and dyspnea on expiration for thelast 2 days. Symptoms were progressive associated to chest tightness during ambulation. No fever orchills. On arrival patient was tachycardic up to 103, tachypneic up to 22, hypertensive 164/66, saturation was 88% on room air, desaturating to 80% with ambulation. Labs were significant for BNP level 1478, lactic acid 2.5, troponin 589 (around baseline). No electrolyte abnormalities., Normal kidney function. Chest x-ray showed central vascular prominence with diffuse interstitial opacities suggestive of pulmonary edema versus atypical infection. EKG showed atrial sensed ventricular paced rhythm with frequent PVCs, no significant ischemic changes. Patient was started on IV Lasix, admitted to the hospital due to acute hypoxic respiratory failure in the setting of acute CHF exacerbation. During admission patient with good urine output and resolution of her symptoms. She was continued on her baseline medications, weaned off of supplemental oxygen. Evaluated by cardiology who recommended spironolactone. She was able to ambulate without any shortness of breath. She was discharged home after stabilization. Recommended to follow-up with cardiology and PCP. Patient Care Team: Carmina Ayala MD as PCP - General (Internal Medicine) OTTO Liang as Physician Equity Research Analyst (Internal Medicine) Patient Active Problem List Diagnosis Anxiety Aortic stenosis Asthma Biventricular ICD (implantable cardioverter-defibrillator) in place CAD (coronary artery disease) Carpal tunnel syndrome CHF NYHA class II ([facility]) CKD (chronic kidney disease), stage III ([facility] COPD (chronic obstructive pulmonary disease) ([facility]) Cutaneous candidiasis Diabetes mellitus type 2 with neurological manifestations ([facility]) Hyperlipidemia Hypertension Microalbuminuria Old [place] (myocardial infarction) TAQUERIA on CPAP Pulmonary nodule Pure hypercholesterolemia Substernal thyroid Systolic and diastolic hypertension Thyroid nodule Vitamin D deficiency Diabetes mellitus due to underlying condition with diabetic nephropathy, with long-term current useof insulin ([facility]) Morbid obesity with BMI of 45.0-49.9, adult ([facility]) No Known Allergies Current Outpatient Medications Medication Sig Dispense Refill albuterol sulfate (ProAir RespiClick) 90 mcg/actuation aerosol powdr breath activated Inhale 2 Puffs into the lungs 2 times daily as needed. atorvastatin (LIPITOR) 80 mg tablet Take 1 tablet (80 mg total) by mouth 1 (one) time each day. bacitracin (bacitracin zinc) 500 unit/gram ointment Apply to both feet daily for dry skin blood-glucose meter kit To check sugars 3 times a day carvediloL (COREG) 25 mg tablet Take 25 mg by mouth 2 times daily (with meals). citalopram (CeleXA) 20 mg tablet Take 1 tablet (20 mg total) by mouth 1 (one) time each day. empagliflozin (Jardiance) 25 mg tablet Take 1 tablet (25 mg total) by mouth 1 (one) time each day. furosemide (LASIX) 20 mg tablet Take 2 tablets (40 mg total) by mouth 2 (two) times a day. glucose blood test strip To check blood sugars 3 times a day insulin aspart (NovoLOG Flexpen U-100 Insulin) 100 unit/mL (3 mL) injection pen Use three times a day before meals: <100:0 units, 101-150: 4 units, 151-200: 6 untis, 201-250: 8 units, 251-300: 10 units, >300: 12 units ipratropium-albuteroL (Combivent Respimat) 20-100 mcg/actuation inhaler INHALE 1 PUFF BY MOUTH 4 TIMES DAILY lancets lancets To check sugars 3 times a day. Lantus Solostar U-100 Insulin 100 unit/mL (3 mL) injection pen INJECT 28 UNITS SUBCUTANEOUSLY AT BEDTIME 30 mL 0 nystatin (MYCOSTATIN) ointment Apply twice daily to affected area nystatin, bulk, 10 billion unit powder Apply to skin folds twice daily, dispense one large bottle rivaroxaban (Xarelto) 20 mg tablet Take 1 tablet (20 mg total) by mouth 1 (one) time each day. sacubitriL-valsartan (Entresto) 97-103 mg per tablet Take 97-103 mg by mouth daily. spironolactone (ALDACTONE) 25 mg tablet Take 1 tablet (25 mg total) by mouth 1 (one) time each day. UNABLE TO FIND Inject 1 Each as directed 4 times daily. UNABLE TO FIND Blood Glucose Calibration (FreeStyle Control Solution) Liquid, USE DIRECTED WITH GLUCOMETER UNABLE TO FIND CPAP Historical (HISTORICAL CPAP), Inhale into the lungs at bedtime. No current facility-administered medications for this visit. Past Medical History: Diagnosis Date Anxiety DX:Anxiety Asthma 01/02/2014 DX:Asthma Breast mass 01/2017 DX:Breast mass; COMMENT: dr light CAD (coronary artery disease) DX:CAD (coronary artery disease); COMMENT: Dr. Martino Cataract DX:Cataract; COMMENT: Cortical and nuclear sclerotic bilaterally Cellulitis of breast 12/2016 DX:Cellulitis of breast CKD (chronic kidney disease), stage III (CMS/HCC) 01/02/2014 DX:CKD (chronic kidney disease), stage III (HCC) COPD (chronic obstructive pulmonary disease) (CMS/HCC) DX:COPD (chronic obstructive pulmonary disease) (HCC) Diabetes (CMS/HCC) DX:Diabetes (HCC) Diabetes mellitus type 2 with neurological manifestations (CMS/HCC) 01/02/2014 DX:Diabetes mellitus type 2 with neurological manifestations (HCC) Diabetes mellitus with renal manifestation (CMS/HCC) 01/02/2014 DX:Diabetes mellitus with renal manifestation (HCC) Diabetes type 2, uncontrolled DX:Diabetes type 2, uncontrolled Dyslipidemia DX:Dyslipidemia Hyperlipidemia DX:Hyperlipidemia Hypertension 01/02/2014 DX:Hypertension ICD (implantable cardioverter-defibrillator) in place DX:ICD (implantable cardioverter-defibrillator) in place Morbid obesity ([facility]) 02/26/2018 DX:Morbid obesity (HCC) OA (osteoarthritis) of knee DX:OA (osteoarthritis) of knee Old [place] (myocardial infarction) DX:Old MN (myocardial infarction); COMMENT: Dr. Martino TAQUERIA on CPAP DX:TAQUERIA on CPAP; COMMENT: dr bowling Smoking DX:Smoking; COMMENT: 25 pack yr ANA III (vulvar intraepithelial neoplasia III) DX:ANA III (vulvar intraepithelial neoplasia III) Vitamin D deficiency 01/02/2014 DX:Vitamin D deficiency Past Surgical History: Procedure Laterality Date APPENDECTOMY PROCEDURE: HISTORICAL APPENDECTOMY CARPAL TUNNEL RELEASE Bilateral PROCEDURE: HI NEUROPLASTY &/TRANSPOS MEDIAN NRV CARPAL TUNNE CHOLECYSTECTOMY PROCEDURE: HISTORICAL CHOLECYSTECTOMY CORONARY ARTERY BYPASS GRAFT 12/10/2017 PROCEDURE: HISTORICAL CABG OTHER SURGICAL HISTORY 10/01/14 PROCEDURE: HI BRNCHSC INCL FLUOR GDNCE DX W/CELL WASHG SPX; COMMENT: ?aspiration OTHER SURGICAL HISTORY 12/05/2016 PROCEDURE: HI OPEN TX NASAL SEPTAL FRACTURE W/WO STABILIZATION Social History Tobacco Use Smoking status: Former Current packs/day: 0.50 Types: Cigarettes Smokeless tobacco: Never Substance Use Topics Alcohol use: No Drug use: No Family History Problem Relation Name Age of Onset No Known Problems Mother Cirrhosis Father Dementia Sister cva Diabetes Brother No Known Problems Son Other (Other: Fibromyalgia) Daughter lymphedema, a fib No Known Problems Daughter no contact Breast cancer Neg Hx Colon cancer Neg Hx Ovarian cancer Neg Hx Immunization History Administered Date(s) Administered Influenza Quadravalent, MDCK, 0.5ml, preservative free (Flucelvax) 6mo and older 02/26/2018 Influenza Quadravalent, MDCK, 0.5ml, with preservative (Flucelvax) 6mo and older 03/05/2017 Influenza trivalent, 0.5mL (Fluad) 65yo and older 01/03/2021 Influenza trivalent, 0.5mL, preservative free (Fluarix; FluLaval; Fluzone) ages 6mo and older (Afluria) 3 years and older 01/19/2012, 02/18/2013 Influenza trivalent, with preservative (Fluzone; Afluria) 6mo and older 02/01/2014, 01/05/2015, 08/17/2015, 01/09/2016, 03/13/2019, 01/02/2023 Influenza, Unspecified 02/18/2007, 03/02/2008, 02/01/2014, 03/05/2017, 03/15/2022 Moderna (age 6mo & older) Bivalent, COVID-19, 0.5 mL or 0.25 mL dosage 03/15/2022 Moderna SARS-CoV-2 COVID-19, mRNA, LNP-S, preservative free 09/01/2020, 09/29/2020, 04/12/2021, 08/31/2021, 03/15/2022, 02/27/2023 PPD Test 01/03/2000, 12/27/2014, 05/25/2018 Pneumococcal conjugate 13 valent (Prevnar 13, PCV13) 2mo and older 09/30/2021 Pneumococcal conjugate 20 valent (Prevnar 20, PCV 20) 2mo and older 10/13/2022 Pneumococcal polysaccharide 23 valent (Pneumovax 23) 2yo and older 12/19/1996, 03/02/2008, 12/22/2011, 01/07/2017 TD, Adsorbed, Preservative Free 02/18/2007 Td Tetanus diptheria (Tdvax) 7yo and older 01/01/2000, 10/20/2010 Tdap Tetanus diptheria acellular pertussis (Boostrix; Adacel) 7yo and older 12/27/2014 Zoster Live 09/26/2015, 09/26/2015 Zoster recombinant (Shingrix) 19yo and older 10/18/2022, 01/02/2023 Review of Systems Constitutional: Negative. Respiratory: Negative. Cardiovascular: Negative. Gastrointestinal: Negative. All other systems reviewed and are negative. Objective BP 110/68 Pulse 70 Temp 36.4 ??C (97.5 ??F) (Temporal) Resp 16 Wt 91.5 kg (201 lb 12.8 oz) BMI 40.76 kg/m?? Physical Exam Vitals reviewed. Constitutional: Appearance: Normal appearance. Cardiovascular: Rate and Rhythm: Normal rate and regular rhythm. Heart sounds: Normal heart sounds. Pulmonary: Effort: Pulmonary effort is normal. Breath sounds: Normal breath sounds. Musculoskeletal: General: No swelling. Normal range of motion. Cervical back: Neck supple. Skin: General: Skin is warm. Neurological: General: No focal deficit present. Mental Status: She is alert. Assessment & Plan Hospital discharge follow-up Patient recently admitted to the hospital due to progressive shortness of breath, found to have an elevated BNP. She was managed with IV Lasix and then switched to p.o. spironolactone as a recommendation from cardiology. Patient was discharged after stabilization, comes today for a follow-up, states she feels better now, denies any shortness of breath, palpitations, chest pain. Appetite is preserved. She has pending follow-up with cardiology next month. No signs of exacerbation at this time. Will continue same regimen. Acute on chronic congestive heart failure, unspecified heart failure type (CMS/HCC) As above. Primary hypertension Blood pressure is well-controlled, today 110/68. Will continue same regimen. Orders: Blood pressure monitor The complexity of medical decision making for this patient's transitional care is high. As part of the TCM, I have: Reviewed discharge information, I.e.: discharge summary or [id number] documents, Reviewed the patient's need for, or follow-up on, diagnostic tests and treatments,and Educated the patient, family, guardian, or caregiver I spent 45 minutes for this encounter reviewing hospitalization notes, images, and tests done during the admission. Assessing complains, physical exam, discussing options with the patient, decision making, treatment plan. Carmina Martins MD ADULT MEDICINE [address] Dept: [phone] Dept documented in this encounter Plan of Treatment Upcoming Encounters Date Type Department Care Team (Late st Contact Info) Description 06/20/2024 9:00 AM EST Office Visit Adult [address] [phone] Carmina Ayala MD [address] [place] [address] 07/29/2024 2:10 PM EDT Appointment Radiology Department - [address] [phone] documented as of this encounter Visit Diagnoses Diagnosis Hospital discharge follow-up- Primary Other follow-up examination Acute on chronic congestive heart failure, unspecified heart failure type ([facility]) Primary hypertension Unspecified essential hypertension Encounter for screening mammogram for breast cancer documented in this encounter Discontinued Medications Medication Sig Discontinue Reason Start Date End Da te empagliflozin (Jardiance) 25 mg tablet Take 1 tablet (25 mg total) by mouth 1 (one) time each day. Reorder 07/02/2023 05/12/2024 documented as of this encounter Historical Medications * This list may reflect changes made after this encounter. spironolactone (ALDACTONE) 25 mg tablet Take 1 tablet (25 mg total) by mouth 1 (one) time each day. 05/06/2024 added in this encounter Orders General Supply Count Last Ordered Date First Or dered Date BLOOD PRESSURE MONITOR 1 05/12/2024 documented in this encounter Care Teams Inside Wireman Relationship Specialty Start Date End Date Carmina Ayala MD [address] [place] [address] PCP - General Internal Medicine 03/09/24 documented as of this encounter
--- OUTSIDE RECORDS SUMMARY | 2024-06-09 13:14 | XMS_ITS | Encounter Summary ---
Author Organization [facility] Address [address] [place] [address] Care Team Providers Care Roll Weigher Name Role Phone Radha Mccray Primary Care Provider Unavailabl e [place] Colasacco, Nancy DO Unavailable Unavailable [place] Colasacco, Nancy DO Primary Care Pro vider Unavailable Shawanda Oliver MD Primary Care Provider Noah Gramajo Primary Care Provider [phone] Carmina Varela MD Primary Care Prov ider Db Martino MD Unavailable Unavailable Dario Ling Unavailable Unavailable Encounter Details Date Type Department Care Team Description 12/14/2014 Charge Account Authorizer Report Medical Records [address] [place] [address] Db Martino MD Social History Tobacco Use [...] on filedocumented in this encounter Care Teams Roll Weigher Relationship Specialty Start Date End Date Radha Mccray PCP - General 01/28/14 06/25/20 Nancy Elliott DO PCP - General Internal Medicine 06/26/20 08/23/20 Shawanda Oliver MD PCP - General Internal Medicine 08/24/20 10/31/21 Noah Parks [address] [place] [address] PCP - General Internal Medicine 11/01/21 11/25/21 Carmina Varela MD [address] [place] [address] PCP - General Internal Medicine 11/26/21 Nancy Elliott, Internal Medicine 01/28/14 08/31/22 Db Martino MD [address] [place] [address] Specialist Cardiology 09/01/22 Dario Ling [address] [place] [address] Specialist Pulmonology 09/01/22 documented as of this encounter
--- OUTSIDE RECORDS SUMMARY | 2024-06-09 13:14 | XMS_ITS | Encounter Summary ---
Author Organization [facility] Address [address] [place] [address] Care Team Providers Care Optical Instrument Repairer Name Role Phone Radha Mccray Primary Care Provider Unavailabl e Mariamakoruslan Colasacco Nancy DO Unavailable Unavailable [place] Colasacco, Nancy DO Primary Care Pro vider Unavailable Shawanda Oliver MD Primary Care Provider Noah Gramajo Primary Care Provider [phone] Carmina Varela MD Primary Care Prov ider Db Martino MD Unavailable Unavailable Dario Ling Unavailable Unavailable Encounter Details Date Type Department Care Team Description 02/11/2016 Connie Scratcher Report Medical Records [address] [place] [address] Sandoval Patton MD Social History Tobacco Use Types Packs/Day [...] on filedocumented in this encounter Care Teams Optical Instrument Repairer Relationship Specialty Start Date End Date Radha Mccray PCP - General 01/28/14 06/25/20 Nancy Elliott DO PCP - General Internal Medicine 06/26/20 08/23/20 Shawanda Oliver MD PCP - General Internal Medicine 08/24/20 10/31/21 Noah Parks [address] [place] [address] PCP - General Internal Medicine 11/01/21 11/25/21 Carmina Varela MD [address] [place] [address] PCP - General Internal Medicine 11/26/21 Nancy Elliott DO Internal Medicine 01/28/14 08/31/22 Db Martino MD [address] [place] [address] Specialist Cardiology 09/01/22 Dario Ling [address] [place] [address] Specialist Pulmonology 09/01/22 documented as of this encounter
--- OUTSIDE RECORDS SUMMARY | 2024-06-09 13:14 | XMS_ITS | Encounter Summary ---
Author Organization [facility] Address [address] [place] [address] Care Team Providers Care Trap Puller Name Role Phone Radha Mccray Primary Care Provider Unavailabl e Nancy Elliott DO Unavailable Unavailable Nancy Elliott DO Primary Care Pro vider Unavailable Shawanda Oliver MD Primary Care Provider Noah Gramajo Primary Care Provider [phone] Carmina Varela MD Primary Care Prov ider Db Martino MD Unavailable Unavailable Dario Ling Unavailable Unavailable Reason for Referral * Non JEFFERY (Routine) - Authorized/Booked Specialty Diagnoses / Procedures Referred By Mitra pelaez Referred To Contact General Surgery Procedures REFERRAL TO GENERAL SURGERY Nancy Elliott DO [address] [place] [address] Gen Surg/[place] [address] [place] [address] Referral ID Status Reason Start Date Expiration Date V isits Requested Visits Authorized [id number] Authorized/B ooked 01/14/2016 04/26/2016 1 1 Encounter Details Date Type Department Care Team Description 01/14/2016 Orders Only Adult Medicine [address] [address] Nancy Elliott DO Social History Tobacco Use Types Packs/Day Years [...] on filedocumented in this encounter Care Teams Trap Puller Relationship Specialty Start Date End Date Radha Mccray PCP - General 01/28/14 06/25/20 Nancy Elliott DO PCP - General Internal Medicine 06/26/20 08/23/20 Shawanda Oliver MD PCP - General Internal Medicine 08/24/20 10/31/21 Noah Parks [address] [place] [address] PCP - General Internal Medicine 11/01/21 11/25/21 Carmina Varela MD [address] [place] [address] 12[address] PCP - General Internal Medicine 11/26/21 Nancy Elliott DO Internal Medicine 01/28/14 08/31/22 Db Martino MD [address] [place] [address]49 Specialist Cardiology 09/01/22 Dario Ling [address] [place] [address]35 Specialist Pulmonology 09/01/22 documented as of this encounter
--- OUTSIDE RECORDS SUMMARY | 2024-06-09 13:14 | XMS_ITS | Encounter Summary ---
Author Organization [facility] Address [address] [place] [address] Care Team Providers Care Regional Airline Pilot Name Role Phone Radha Mccray Primary Care Provider Unavailabl e Krakowifranklin Colasacco, Nancy DO Unavailable Unavailable Krakowiak Colasacco, Nancy DO Primary Care Pro vider Unavailable Shawanda Oliver MD Primary Care Provider Noah Gramajo Primary Care Provider [phone] Carmina Varela MD Primary Care Prov ider Db Martino MD Unavailable Unavailable Dario Ling Unavailable Unavailable Encounter Details Date Type Department Care Team Description 01/11/2015 Insurance Actuary Report Medical Records [address] [place] [address] Db Martino MD Social History Tobacco Use [...] on filedocumented in this encounter Care Teams Regional Airline Pilot Relationship Specialty Start Date End Date Radha Mccray PCP - General 01/28/14 06/25/20 Nancy Elliott DO PCP - General Internal Medicine 06/26/20 08/23/20 Shawanda Oliver MD PCP - General Internal Medicine 08/24/20 10/31/21 Noah Parks [address] [place] [address] PCP - General Internal Medicine 11/01/21 11/25/21 Carmina Varela MD [address] [place] [address] PCP - General Internal Medicine 11/26/21 Nancy Elliott, Internal Medicine 01/28/14 08/31/22 Db Martino MD [address] [place] [address] Specialist Cardiology 09/01/22 Dario Ling [address] [place] [address] Specialist Pulmonology 09/01/22 documented as of this encounter
--- OUTSIDE RECORDS SUMMARY | 2024-06-09 13:14 | XMS_ITS | Encounter Summary ---
Author Organization [facility] Address [address] [place] [address] Care Team Providers Care Marshmallow Machine Operator Name Role Phone Nancy Elliott DO Unavailable Unavailable Shawanda Oliver MD Primary Care Provider Noah Gramajo Primary Care Provider [phone] Carmina Varela MD Primary Care Prov ider Db Martino MD Unavailable Unavailable Dario Ling Unavailable Unavailable Encounter Details Date Type Department Care Team Description 12/28/2020 Public Housing Interviewer Report Medical Records [address] [place] [address] Abstract, Provider Social History Tobacco Use Types Packs/Day Years [...] on filedocumented in this encounter Care Teams Marshmallow Machine Operator Relationship Specialty Start Date End Date Shawanda Oliver MD PCP - General Internal Medicine 08/24/20 10/31/21 Noah Parks [address] [place] [address] PCP - General Internal Medicine 11/01/21 11/25/21 Carmina Varela MD [address] [place] [address] PCP - General Internal Medicine 11/26/21 Nancy Elliott, DO Internal Medicine 01/28/14 08/31/22 Db Martino MD [address] [place] [address] Specialist Cardiology 09/01/22 Dario Ling [address] [place] [address]60 Specialist Pulmonology 09/01/22 documented as of this encounter
--- OUTSIDE RECORDS SUMMARY | 2024-06-09 13:14 | XMS_ITS | Encounter Summary ---
Author Organization [facility] Address [address] [place] [address] Care Team Providers Care Bulk Coolers Installer Name Role Phone Radha Mccray Primary Care Provider Unavailabl e Krakoruslan Colasacco, Nancy DO Unavailable Unavailable Krakowiak Colasacco, Nancy DO Primary Care Pro vider Unavailable Shawanda Oliver MD Primary Care Provider Noah Gramajo Primary Care Provider [phone] Carmina Varela MD Primary Care Prov ider Db Martino MD Unavailable Unavailable Dario Ling Unavailable Unavailable Encounter Details Date Type Department Care Team Description 02/26/2015 Flare Man Report Medical Records [address] [place] [address] Db Martino MD Social History Tobacco Use Types Packs/Day Years Used Date Smoking Tobacco: Every Day Cigarettes 0.5 Smokeless Tobacco: Never Comments:quit 02/08/14 Alcohol Use Standard Drinks/Week Comments [...] on filedocumented in this encounter Care Teams Bulk Coolers Installer Relationship Specialty Start Date End Date Radha Mccray PCP - General 01/28/14 06/25/20 Nancy Elliott DO PCP - General Internal Medicine 06/26/20 08/23/20 Shawanda Oliver MD PCP - General Internal Medicine 08/24/20 10/31/21 Noah Parks [address] [place] [address]283 PCP - General Internal Medicine 11/01/21 11/25/21 Carmina Varela MD [address] [place] [address] PCP - General Internal Medicine 11/26/21 Nancy Elliott, Internal Medicine 01/28/14 08/31/22 Db Martino MD [address] [place] [address] Specialist Cardiology 09/01/22 Dario Ling [address] [place] [address] Specialist Pulmonology 09/01/22 documented as of this encounter
--- OUTSIDE RECORDS SUMMARY | 2024-06-09 13:14 | XMS_ITS | Encounter Summary ---
Author Organization [facility] Address [address] [place] [address] Care Team Providers Care Clinical Exercise Physiologist Name Role Phone Radha Mccray Primary Care Provider Unavailabl e Stephon Elliottabela DO Unavailable Unavailable Miguelak Micko Nancy DO Primary Care Pro vider Unavailable Shawanda Oliver MD Primary Care Provider Noah Gramajo Primary Care Provider [phone] Carmina Varela MD Primary Care Prov ider Db Martino MD Unavailable Unavailable Dario Ling Unavailable Unavailable Encounter Details Date Type Department Care Team Description 03/25/2015 Hospital Medical Records [address] [place] [address] Social History Tobacco Use Types Packs/Day Years [...] on filedocumented in this encounter Care Teams Clinical Exercise Physiologist Relationship Specialty Start Date End Date Radha Mccray PCP - General 01/28/14 06/25/20 Nancy Elliott DO PCP - General Internal Medicine 06/26/20 08/23/20 Shawanda Oliver MD PCP - General Internal Medicine 08/24/20 10/31/21 Noah Parks [address] [place] [address] PCP - General Internal Medicine 11/01/21 11/25/21 Carmina Varela MD [address] [place] [address] PCP - General Internal Medicine 11/26/21 Nancy Elliott, Internal Medicine 01/28/14 08/31/22 Db Martino MD [address] [place] [address] Specialist Cardiology 09/01/22 Dario Ling [address] [place] [address] Specialist Pulmonology 09/01/22 documented as of this encounter
--- OUTSIDE RECORDS SUMMARY | 2024-06-09 13:14 | XMS_ITS | Encounter Summary ---
Author Organization [facility] Address [address] [place] [address] Care Team Providers Care Environmental Research Project Manager Name Role Phone Nancy Elliott DO Primary Care Pro vider Unavailable Radha Mccray Primary Care Provider Unavailabl e Nancy Elliott DO Unavailable Unavailable Nancy Elliott DO Primary Care Pro vider Unavailable Shawanda Oliver MD Primary Care Provider Noah Gramajo Primary Care Provider [phone] Carmina Varela MD Primary Care Prov ider Db Martino MD Unavailable Unavailable Dario Ling Unavailable Unavailable Reason for Referral * Specialist (Routine) - Authorized/Booked Specialty Diagnoses / Procedures Referred By Contact Referred To Contact INTERVENTIONAL RADIOLOGY Procedures REFERRAL TO INTERVENTIONAL RADIOLOGY Nancy Elliott DO [address] [place] [address] Ext Interventional Rad Referral ID Status Reason Start Date Expiration Date V isits Requested Visits Authorized SEE RVIEW 01/13/14 Authorized/ Booked 01/12/2014 04/13/2014 1 1 Encounter Details Date Type Department Care Team Description 01/12/2014 Orders Only Adult Medicine [address] [address] Nancy Elliott DO Thyroid nodule (Primary Dx) Social History Tobacco Use Types Packs/Day Years [...] as of this encounter Visit Diagnoses Diagnosis Thyroid nodule- Primary Nontoxic uninodular goiter documented in this encounter Care Teams Environmental Research Project Manager Relationship Specialty Start Date End Date Nancy Elliott DO PCP - General Internal Medicine 11/07/13 01/27/14 Radha Mccray PCP - General 01/28/14 06/25/20 Nancy Elliott DO PCP - General Internal Medicine 06/26/20 08/23/20 Shawanda Oliver MD PCP - General Internal Medicine 08/24/20 10/31/21 Noah Parks [address] [place] [address] PCP - General Internal Medicine 11/01/21 11/25/21 Carmina Varela MD [address] [place] [address] PCP - General Internal Medicine 11/26/21 Nancy Elliott DO Internal Medicine 01/28/14 08/31/22 Db Martino MD [address] [place], [place] [phone] Specialist Cardiology 09/01/22 Dario Ling [address] [place] [address] Specialist Pulmonology 09/01/22 documented as of this encounter
--- OUTSIDE RECORDS SUMMARY | 2024-06-09 13:14 | XMS_ITS | Encounter Summary ---
Author Organization [facility] Address [address] [place] [address] Care Team Providers Care Paper Mill Supervisor Name Role Phone Carmina Varela MD Primary Care Prov ider Db Martino MD Unavailable Unavailable Dario Ling Unavailable Unavailable Encounter Details Date Type Department Care Team Description 12/30/2023 Orders Only Medical Records [address] [place] [address] [facility] Social History Tobacco Use Types Packs/Day [...] Associated Diagnosis Comments OUTSIDE PLAIN FILM Routine 12/14/2023 documented in this encounter Results * OUTSIDE PLAIN FILM (12/14/2023) [facility] RADIOLOGY documented in this encounter Visit Diagnoses Not on filedocumented in this encounter Care Teams Paper Mill Supervisor Relationship Specialty Start Date End Date Carmina Varela MD [address] [place], [place] [phone] PCP - General Internal Medicine 11/26/21 Db Martino MD [address] [place] [address] Specialist Cardiology 09/01/22 Dario Ling [address] [place] [address] Specialist Pulmonology 09/01/22 documented as of this encounter
--- OUTSIDE RECORDS SUMMARY | 2024-06-09 13:14 | XMS_ITS | Encounter Summary ---
Author Organization [facility] Address [address] [place] [address] Care Team Providers Care Airworthiness Inspector Name Role Phone Radha Mccray Primary Care Provider Unavailabl e Stephon Elliottabela DO Unavailable Unavailable Mariamakoraviak Micko Nancy DO Primary Care Pro vider Unavailable Shawanda Oliver MD Primary Care Provider Noah Gramajo Primary Care Provider [phone] Carmina Varela MD Primary Care Prov ider Db Martino MD Unavailable Unavailable Dario Ling Unavailable Unavailable Encounter Details Date Type Department Care Team Description 02/01/2014 Hospital Medical Records [address] [place] [address] Social History Tobacco Use Types Packs/Day Years [...] on filedocumented in this encounter Care Teams Airworthiness Inspector Relationship Specialty Start Date End Date Radha Mccray PCP - General 01/28/14 06/25/20 Nancy Elliott DO PCP - General Internal Medicine 06/26/20 08/23/20 Shawanda Oliver MD PCP - General Internal Medicine 08/24/20 10/31/21 Noah Parks [address] [place] [address] PCP - General Internal Medicine 11/01/21 11/25/21 Carmina Varela MD [address] [place] [address] PCP - General Internal Medicine 11/26/21 Nancy Elliott, Internal Medicine 01/28/14 08/31/22 Db Martino MD [address] [place] [address]50 Specialist Cardiology 09/01/22 Dario Ling [address] [place] [address] Specialist Pulmonology 09/01/22 documented as of this encounter
--- OUTSIDE RECORDS SUMMARY | 2024-06-09 13:14 | XMS_ITS | Encounter Summary ---
Author Organization [facility] Address [address] [place] [address] Care Team Providers Care Steel Erector Apprentice Name Role Phone Radha Mccray Primary Care Provider Unavailabl e Ariadne Colbarbarao Nancy DO Unavailable Unavailable Mariamakowiak Colasacco Nancy DO Primary Care Pro vider Unavailable Shawanda Oliver MD Primary Care Provider Noah Gramajo Primary Care Provider [phone] Carmina Varela MD Primary Care Prov ider Db Martino MD Unavailable Unavailable Dario Ling Unavailable Unavailable Encounter Details Date Type Department Care Team Description 12/18/2014 Hospital Medical Records [address] [place] [address] [facility] Social History Tobacco Use Types Packs/Day [...] on filedocumented in this encounter Care Teams Steel Erector Apprentice Relationship Specialty Start Date End Date Radha Mccray PCP - General 01/28/14 06/25/20 Nancy Elliott DO PCP - General Internal Medicine 06/26/20 08/23/20 Shawanda Oliver MD PCP - General Internal Medicine 08/24/20 10/31/21 Noah Parks [address] [place] [address] PCP - General Internal Medicine 11/01/21 11/25/21 Carmina Varela MD [address] [place] [address] PCP - General Internal Medicine 11/26/21 Nancy Elliott, Internal Medicine 01/28/14 08/31/22 Db Martino MD [address] [place] [address] 26675 Specialist Cardiology 09/01/22 Dario Ling [address] [place] [address] 92371 Specialist Pulmonology 09/01/22 documented as of this encounter
--- OUTSIDE RECORDS SUMMARY | 2024-06-09 13:14 | XMS_ITS | Encounter Summary ---
Author Organization [facility] Address [address] [place] [address] Care Team Providers Care Sales Designer Name Role Phone Radha Mccray Primary Care Provider Unavailabl e Ariadne Colbarbarao Nancy DO Unavailable Unavailable Mariamakowiak Colasacco Nancy DO Primary Care Pro vider Unavailable Shawanda Oliver MD Primary Care Provider Noah Gramajo Primary Care Provider [phone] Carmina Varela MD Primary Care Prov ider Db Martino MD Unavailable Unavailable Dario Ling Unavailable Unavailable Encounter Details Date Type Department Care Team Description 03/25/2016 Hospital Medical Records [address] [place] [address] [facility] Social History Tobacco Use Types Packs/Day [...] on filedocumented in this encounter Care Teams Sales Designer Relationship Specialty Start Date End Date Radha Mccray PCP - General 01/28/14 06/25/20 Nancy Elliott DO PCP - General Internal Medicine 06/26/20 08/23/20 Shawanda Oliver MD PCP - General Internal Medicine 08/24/20 10/31/21 Noah Parks [address] [place] [address] PCP - General Internal Medicine 11/01/21 11/25/21 Carmina Varela MD [address] [place] [address]22 PCP - General Internal Medicine 11/26/21 Nancy Elliott, Internal Medicine 01/28/14 08/31/22 Db Martino MD [address] [place] [address] 15835 Specialist Cardiology 09/01/22 Dario Ling [address] [place] [address] Specialist Pulmonology 09/01/22 documented as of this encounter
--- OUTSIDE RECORDS SUMMARY | 2024-06-09 13:14 | XMS_ITS | Encounter Summary ---
Author Organization [facility] Address [address] [place] [address] Care Team Providers Care Mmd Unit Teacher Name Role Phone Radha Mccray Primary Care Provider Unavailabl e Krakoruslan Colasacco Nancy DO Unavailable Unavailable Krakowiak Colasacco, Nancy DO Primary Care Pro vider Unavailable Shawanda Oliver MD Primary Care Provider Noah Gramajo Primary Care Provider [phone] Carmina Varela MD Primary Care Prov ider Db Martino MD Unavailable Unavailable Dario Ling Unavailable Unavailable Encounter Details Date Type Department Care Team Description 06/26/2014 Hospital Medical Records [address] [place] [address] Man Corado MD Social History Tobacco Use Types Packs/Day [...] on filedocumented in this encounter Care Teams Mmd Unit Teacher Relationship Specialty Start Date End Date Radha Mccray PCP - General 01/28/14 06/25/20 Nancy Elliott DO PCP - General Internal Medicine 06/26/20 08/23/20 Shawanda Oliver MD PCP - General Internal Medicine 08/24/20 10/31/21 Noah Parks [address] [place] [address] PCP - General Internal Medicine 11/01/21 11/25/21 Carmina Varela MD [address] [place] [address] 11248 PCP - General Internal Medicine 11/26/21 Nancy Elliott, Internal Medicine 01/28/14 08/31/22 Db Martino MD [address] [place] [address]8035 Specialist Cardiology 09/01/22 Dario Ling [address] [place] [address]387 Specialist Pulmonology 09/01/22 documented as of this encounter
--- OUTSIDE RECORDS SUMMARY | 2024-06-09 13:14 | XMS_ITS | Encounter Summary ---
Author Organization [facility] Address [address] [place] [address] Care Team Providers Care Singe Machine Operator Name Role Phone Radha Mccray Primary Care Provider Unavailabl e Krakowifranklin Colasacco, Nancy DO Unavailable Unavailable Krakowiak Colasacco, Nancy DO Primary Care Pro vider Unavailable Shawanda Oliver MD Primary Care Provider Noah Gramajo Primary Care Provider [phone] Carmina Varela MD Primary Care Prov ider Db Martino MD Unavailable Unavailable Dario Ling Unavailable Unavailable Encounter Details Date Type Department Care Team Description 07/04/2014 Recovery Coordinator Report Medical Records [address] [place] [address] Man Corado MD Social History Tobacco Use [...] on filedocumented in this encounter Care Teams Singe Machine Operator Relationship Specialty Start Date End Date Radha Mccray PCP - General 01/28/14 06/25/20 Nancy Elliott DO PCP - General Internal Medicine 06/26/20 08/23/20 Shawanda Oliver MD PCP - General Internal Medicine 08/24/20 10/31/21 Noah Parks [address] [place] [address] PCP - General Internal Medicine 11/01/21 11/25/21 Carmina Varela MD [address] [place] [address] 16073 PCP - General Internal Medicine 11/26/21 Nancy Elliott, Internal Medicine 01/28/14 08/31/22 Db Martino MD [address] [place] [address] 59319 Specialist Cardiology 09/01/22 Dario Ling [address] [place] [address] 54399 Specialist Pulmonology 09/01/22 documented as of this encounter
--- OUTSIDE RECORDS SUMMARY | 2024-06-09 13:14 | XMS_ITS | Encounter Summary ---
Author Organization [facility] Address [address] [place] [address] Care Team Providers Care Ship Rigger Name Role Phone Radha Mccray Primary Care Provider Unavailabl e Ariadne Colbarbarao Nancy DO Unavailable Unavailable Krakowiak Colasacco Nancy DO Primary Care Pro vider Unavailable Shawanda Olievr MD Primary Care Provider Noah Gramajo Primary Care Provider [phone] Carmina Varela MD Primary Care Prov ider Db Martino MD Unavailable Unavailable Dario Ling Unavailable Unavailable Encounter Details Date Type Department Care Team Description 03/23/2016 Hospital Medical Records [address] [place] [address] [facility] Social History Tobacco Use Types Packs/Day [...] on filedocumented in this encounter Care Teams Ship Rigger Relationship Specialty Start Date End Date Radha Mccray PCP - General 01/28/14 06/25/20 Nancy Elliott DO PCP - General Internal Medicine 06/26/20 08/23/20 Shawanda Oliver MD PCP - General Internal Medicine 08/24/20 10/31/21 Noah Parks [address] [place] [address]363 PCP - General Internal Medicine 11/01/21 11/25/21 Carmina Varela MD [address] [place] [address] 27054 PCP - General Internal Medicine 11/26/21 Nancy Elliott, Internal Medicine 01/28/14 08/31/22 Db Martino MD [address] [place] [address] 91790 Specialist Cardiology 09/01/22 Dario Ling [address] [place] [address] 38118 Specialist Pulmonology 09/01/22 documented as of this encounter
--- OUTSIDE RECORDS SUMMARY | 2024-06-09 13:14 | XMS_ITS | Encounter Summary ---
Author Organization [facility] Address [address] [place] [address] Care Team Providers Care Worldwide Chief Creative Officer Name Role Phone Radha Mccray Primary Care Provider Unavailabl e Krakoruslan Colasacco Nancy DO Unavailable Unavailable Krakowiak Colasacco, Nancy DO Primary Care Pro vider Unavailable Shawanda Oliver MD Primary Care Provider Noah Gramajo Primary Care Provider [phone] Carmina Varela MD Primary Care Prov ider Db Martino MD Unavailable Unavailable Dario Ling Unavailable Unavailable Encounter Details Date Type Department Care Team Description 09/25/2015 Amusement Or Recreation Card Checker Report Medical Records [address] [place] [address] Db Martino MD Social History Tobacco Use [...] on filedocumented in this encounter Care Teams Worldwide Chief Creative Officer Relationship Specialty Start Date End Date Radha Mccray PCP - General 01/28/14 06/25/20 Nancy Elliott DO PCP - General Internal Medicine 06/26/20 08/23/20 Shawanda Oliver MD PCP - General Internal Medicine 08/24/20 10/31/21 Noah Parks [address] [place] [address] PCP - General Internal Medicine 11/01/21 11/25/21 Carmina Varela MD [address] [place] [address]50 PCP - General Internal Medicine 11/26/21 Nancy Elliott, Internal Medicine 01/28/14 08/31/22 Db Martino MD [address] [place] [address] 49296 Specialist Cardiology 09/01/22 Dario Ling [address] [place] [address] 32591 Specialist Pulmonology 09/01/22 documented as of this encounter
--- OUTSIDE RECORDS SUMMARY | 2024-06-09 13:14 | XMS_ITS | Encounter Summary ---
Author Organization [facility] Address [address] [place] [address] Care Team Providers Care Dairy Worker Name Role Phone Radha Mccray Primary Care Provider Unavailabl e Ariadne Colbarrettcco, Nancy DO Unavailable Unavailable Mariamakoruslan Kirkpatrickasacco Nancy DO Primary Care Pro vider Unavailable Shawanda Oliver MD Primary Care Provider Noah Gramajo Primary Care Provider [phone] Carmina Varela MD Primary Care Prov ider Db Martino MD Unavailable Unavailable Dario Ling Unavailable Unavailable Reason for Visit * Reason Onset Date Comments medication problems 04/28/2014 Encounter Details Date Type Department Care Team Description 04/28/2014 Telephone Adult Medicine [address] [address] Nancy Elliott DO medication problems Social History Tobacco Use Types Packs/Day Years [...] encounter Miscellaneous Notes * Telephone Encounter - Ebony Atkinson 04/29/2014 11:59 AM EST Tried calling pt, she was not home. Message left asking pt to call our office back, when pt calls back, please explain to her that rx for lorazepam 0.5 was not refilled because it was not meant to [facility], * Telephone Encounter - Nancy Valdivia DO - 04/29/2014 11:49 AM EST Not refilled, not a intermodal customer service med, given until celexa started working * Telephone Encounter - Mari Jara - 04/28/2014 4:04 PM EST Who is calling? The patient Name of the medication lorazepam (ATIVAN) 0.5 MG tablet What is the specific problem or interaction? Patient states that pharmacy never got the fax. Pleaserefax to [facility]. If the patient is having a problem with taking the med - how long has the problem been going on? N/A documented in this encounter Plan of Treatment Not on file documented as of this encounter Visit Diagnoses Not on filedocumented in this encounter Care Teams Dairy Worker Relationship Specialty Start Date End Date Radha Mccray PCP - General 01/28/14 06/25/20 Nancy Elliott DO PCP - General Internal Medicine 06/26/20 08/23/20 Shawanda Oliver MD PCP - General Internal Medicine 08/24/20 10/31/21 Noah Parks [address] [place] [address] PCP - General Internal Medicine 11/01/21 11/25/21 Carmina Varela MD [address] [place] [address] PCP - General Internal Medicine 11/26/21 Nancy Elliott, DO Internal Medicine 01/28/14 08/31/22 Db Martino MD [address] [place] [address] Specialist Cardiology 09/01/22 Dario Ling [address] [place] [address] Specialist Pulmonology 09/01/22 documented as of this encounter
--- OUTSIDE RECORDS SUMMARY | 2024-06-09 13:14 | XMS_ITS | Encounter Summary ---
Author Organization [facility] Address [address] [place] [address] Care Team Providers Care Rural Carrier Associate Name Role Phone Carmina Varela MD Primary Care Prov ider Db Martino MD Unavailable Unavailable Dario Ling Unavailable Unavailable Encounter Details Date Type Department Care Team Description 05/18/2023 Transmission Design Engineer Report Medical Records [address] [place] [address] Dario Ling Social History Tobacco Use Types Packs/Day Years [...] on filedocumented in this encounter Care Teams Rural Carrier Associate Relationship Specialty Start Date End Date Carmina Varela MD [address] [place] [address] PCP - General Internal Medicine 11/26/21 Db Martino MD [address] [place], [place] [id number] Specialist Cardiology 09/01/22 Dario Ling [address] [place] [address] Specialist Pulmonology 09/01/22 documented as of this encounter
--- OUTSIDE RECORDS SUMMARY | 2024-06-09 13:14 | XMS_ITS | Encounter Summary ---
Author Organization [facility] Address [address] [place] [address] Care Team Providers Care Manager Application Name Role Phone Carmina Varela MD Primary Care Prov ider Db Martino MD Unavailable Unavailable Dario Ling Unavailable Unavailable Reason for Visit * Reason Comments E-prescribe Rx Request Encounter Details Date Type Department Care Team Description 09/21/2023 Refill Adult Medicine [address] [address] Rosa M Mcghee PA-C [address] [place] [phone] E-prescribe Rx Request Social History Tobacco Use Types Packs/Day [...] encounter Miscellaneous Notes * Telephone Encounter - Annamarie Rivera PA-C - 11/22/2023 7:22 PM EDT Please schedule patient appt. * Telephone Encounter - Asha Winston M.A. - 10/07/2023 11:43 AM EDT Spoke with patient book appt with Rosa M on 12/07/23 @ 8:40 * Telephone Encounter - Anais Douglass - 10/06/2023 8:17 AM EDT Mycharted pt in regards to scheduling as well * Telephone Encounter - Steff Delacruz - 09/22/2023 2:54 PM EDT Message left on for patient to call back and book a follow up with Rosa M. She has not been seen since 03/14/22, so will need 40 minutes. * Telephone Encounter - Nanda Avila L.P.N. - 09/22/2023 2:26 PM EDT Needs to be seen documented in this encounter Plan of Treatment Not on file documented as of this encounter Visit Diagnoses Diagnosis Diabetes mellitus type 2 with neurological manifestations (HCC) Type II or unspecified type diabetes mellitus with neurological manifestations, not stated as uncontrolled documented in this encounter Care Teams Manager Application Relationship Specialty Start Date End Date Carmina Varela MD [address] [place] [address] PCP - General Internal Medicine 11/26/21 Db Martino MD [address] [place] [address] Specialist Cardiology 09/01/22 Dario Ling [address] [place] [address] Specialist Pulmonology 09/01/22 documented as of this encounter
--- OUTSIDE RECORDS SUMMARY | 2024-06-09 13:14 | XMS_ITS | Encounter Summary ---
Author Organization [facility] Address [address] [place] [address] Care Team Providers Care Straddle Truck Driver Name Role Phone Radha Mccray Primary Care Provider Unavailabl e Nancy Elliott DO Unavailable Unavailable Stephon Elliottabela DO Primary Care Pro vider Unavailable Shawanda Oliver MD Primary Care Provider Noah Gramajo Primary Care Provider [phone] Carmina Varela MD Primary Care Prov ider Db Martino MD Unavailable Unavailable Dario Ling Unavailable Unavailable Reason for Visit * Reason Onset Date Comments Provider Call Back 09/25/2015 Encounter Details Date Type Department Care Team Description 09/25/2015 Telephone Adult Medicine [address] [address] Nancy Elliott DO Provider Call Back Social History Tobacco Use Types Packs/Day Years [...] encounter Miscellaneous Notes * Telephone Encounter - Joellen Cervantes M.A. - 09/25/2015 1:22 PM EDT Pt is calling, she has an appt with Dr Ariadne Valdivia tomorrow at 10:30. However her sister Kayla Burger just got out of the hospital and she wants to give the appt to her instead. Please call * Telephone Encounter - Libia Maldonado - 09/25/2015 9:40 AM EDT Caller requesting call back from provider: Dr Ariadne Yusuf Is the caller the patient? yes If caller is not the patient, what is the callers name? Callers relationship to patient? If person calling is not the patient themselves, is there a verbal release in FYI or permanent comments for this person: YES Reason for call back: Patient has a question about tomorrows apt Caller offered to speak with the nurse for assistance: YES Response: Patient offered to speak with nurse for assistance and patient agreed. Message forwarded to nurse. documented in this encounter Plan of Treatment Not on file documented as of this encounter Visit Diagnoses Not on filedocumented in this encounter Care Teams Straddle Truck Driver Relationship Specialty Start Date End Date Radha Mccray PCP - General 01/28/14 06/25/20 Nancy Elliott DO PCP - General Internal Medicine 06/26/20 08/23/20 Shawanda Oliver MD PCP - General Internal Medicine 08/24/20 10/31/21 Noah Parks [address] [place] [address] PCP - General Internal Medicine 11/01/21 11/25/21 Carmina Varela MD [address] [place] [address] PCP - General Internal Medicine 11/26/21 Nancy Elliott, DO Internal Medicine 01/28/14 08/31/22 Db Martino MD [address] [place] [address] Specialist Cardiology 09/01/22 Dario Ling [address] [place] [address] Specialist Pulmonology 09/01/22 documented as of this encounter
--- OUTSIDE RECORDS SUMMARY | 2024-06-09 13:14 | XMS_ITS | Encounter Summary ---
Author Organization [facility] Address [address] [place] [address] Care Team Providers Care Chute Loader Name Role Phone Carmina Varela MD Primary Care Prov ider Db Martino MD Unavailable Unavailable Dario Ling Unavailable Unavailable Encounter Details Date Type Department Care Team Description 12/03/2023 Telephone Gastroenterology - [place] [address] [facility] [address] [place] [address] Jericho Vargas DO [address] [facility] [address] [facility] [place] [address] Social History Tobacco Use Types Packs/Day Years [...] on filedocumented in this encounter Care Teams Chute Loader Relationship Specialty Start Date End Date Carmina Varela MD [address] [place] [address] PCP - General Internal Medicine 11/26/21 Db Martino MD [address] [place] [address] Specialist Cardiology 09/01/22 Dario Ling [address] [place] [address] Specialist Pulmonology 09/01/22 documented as of this encounter
--- OUTSIDE RECORDS SUMMARY | 2024-06-09 13:14 | XMS_ITS | Clinical Summary ---
Author Organization [facility], Address [address] [place] [address] Phone Care Team Providers Care Global Head Advertiser Solutions Name Role Phone Carmina Varela MD Primary Care Provider + Allergies No known active allergies Medications atorvastatin (LIPITOR) 80 MG tablet Take 80 mg by mouth 1 (one) time each day 3 Active carvedilol (COREG) 25 MG tablet Take 25 mg by mouth in the morning and 25 mg in the evening. 3 Active Jardiance 10 MG tablet Take by mouth 1 (one) time each day 3 Active Entresto 97-103 MG per tablet Take 1 tablet by mouth in the morning and 1 tablet in the evening. 3 Active Xarelto 20 MG tablet TAKE 1 TABLET BY MOUTH ONCE DAILY . MUST ADMINISTER WITH EVENING MEAL 3 Active citalopram (CeleXA) 20 MG tablet Take 20 mg by mouth 1 (one) time each day 3 Active furosemide (LASIX) 40 MG tablet See Instructions, 2 tab in AM and 1 tab in PM, Refills 0, Maintenance, 11/13/20 19:22:00 EDT, Instructions Replace Required Details, Partial fill upon patient request if the prescription is for a schedule II opioid drug. 1 Active Active Problems Problem Noted Date Diagnosed Date Stage 3b chronic kidney disease 12/05/2022 Encounters Date Type Department Care Team Description 04/07/2024 11:50 AM EST Office Visit [facility], [address] [place] [address] Marino Hopson MD Stage 3b chronic kidney disease (HCC) (Primary Dx) from Last 3 Months Social History Tobacco Use Types Packs/Day Years Used Date Smoking Tobacco: Never Assessed Comments Unknown Sex and Gender Information Value Date Recorded Sex Assigned at Not on file Legal Sex Female 10:46 AM EDT Gender Identity Not on file Sexual Orientation Not on file Plan of Treatment Upcoming Encounters Date Type Department Care Team (Late st Contact Info) Description 07/20/2024 9:50 AM EDT Office Visit [facility], [address] [place] [address] Marino Hopson MD [address] [place] [address] [place] [address] Health Maintenance Due Date Last Done Comments Breast Cancer Screening 1955 Colorectal Cancer Screening: Annual FOBT 2003 Colorectal Cancer Screening: Colonoscopy 2003 Colorectal Cancer Screening: Sigmoidoscopy 2003 Hepatitis B Vaccine (1 of 3 - Risk 3-dose series) 2014 Pneumococcal Vaccine: 65+ Ye ars (4 of 4 - PPSV23 or PCV20) 09/30/2022 09/30/2021, 01/07/2017, 12/22/2011, Additional history exists Diabetes: Ophthalmology Exam 04/21/2023 Diabetes: Pedal Pulse Checked 04/21/2023 Diabetes: Sensory Foot Exam 04/21/2023 Diabetes: Visual Foot Exam 04/21/2023 Influenza Vaccine (#1) 2023 , 03/15/2022, 01/03/2021, Additional history exists Diabetes: Hemoglobin A1C 03/10/2024 12/09/2023 Insurance [facility] [employer] DUAL SNP ([id number]) Care Teams Global Head Advertiser Solutions Relationship Specialty Start Date End Date Carmina Varela MD PCP - General 12/03/22
--- OUTSIDE RECORDS SUMMARY | 2024-06-09 13:14 | XMS_ITS | Encounter Summary ---
Author Organization [facility] Address [address] [place] [address] Care Team Providers Care Orthoptist Name Role Phone Carmina Varela MD Primary Care Prov ider Db Martino MD Unavailable Unavailable Dario Ling Unavailable Unavailable Encounter Details Date Type Department Care Team Description 06/05/2023 Radio Communications Superintendent Report Medical Records [address] [place] [address] Mariel Arellano FNP Social History Tobacco Use Types Packs/Day Years [...] on filedocumented in this encounter Care Teams Orthoptist Relationship Specialty Start Date End Date Carmina Varela MD [address] [place] [address] PCP - General Internal Medicine 11/26/21 Db Martino MD [address] [place], [place] [phone] Specialist Cardiology 09/01/22 Dario Ling [address] [place] [address] Specialist Pulmonology 09/01/22 documented as of this encounter
--- OUTSIDE RECORDS SUMMARY | 2024-06-09 13:14 | XMS_ITS | Encounter Summary ---
Author Organization [facility] Address [address] [place] [address] Care Team Providers Care Extension Course Counselor Name Role Phone Carmina Ayala MD Primary Care Prov ider Reason for Visit * Reason Comments UTI Encounter Details Date Type Department Care Team (Late st Contact Info) Description 05/26/2024 8:30 AM EST Office Visit Adult Medicine [facility] [address] [place] [address] Santiago Bell PA [address] [place] [address] Urinary frequency (Primary Dx); Urinary tract infection symptoms; Diabetes mellitus due to underlying condition with diabetic nephropathy, with long-term current use of insulin ([facility]); Systolic and diastolic hypertension Social History Tobacco Use Types Packs/Day [...] care for your loved ones. For example, child specialist or elderly care for an older adult? [...] Sign Reading Time Taken Comments Blood Pressure 122/60 05/26/2024 8:49 AM EST Pulse 73 05/26/2024 8:36 AM EST Temperature 35.9 ??C (96.7 ??F) 05/26/2024 8:36 AM ES T Respiratory Rate 16 05/26/2024 8:36 AM EST Oxygen Saturation - - Inhaled Oxygen Concentration - - Weight 90.9 kg (200 lb 6.4 oz) 05/26/2024 8:36 A M EST Height 149.9 cm (4' 11 ) 05/26/2024 8:36 AM EST Body Mass Index 40.48 05/26/2024 8:36 AM EST documented in this encounter Patient Instructions * Attachments The following attachments cannot be sent through Care Everywhere. * UTI (Urinary Tract Infection): Female (Lebanese) documented in this encounter Ordered Prescriptions Prescription Sig Dispense Quantity Refills Last Filled Start Date End Date cefdinir (OMNICEF) 300 mg capsule Take 1 capsule (300 mg total) by mouth 2 (two) times a day for 7 days. 14 each 05/30/2024 5 amoxicillin-clavul anate (AUGMENTIN) 875-125 mg per tablet Take 1 tablet by mouth 2 (two) times a day for 7 days. 14 each 05/26/2024 5 documented in this encounter Progress Notes * OTTO Cabrales - 05/26/2024 8:30 AM ESTAddended by: SANTIAGO BELL on: 05/30/2024 08:41 AM Modules accepted: Orders * OTTO Cabrales - 05/26/2024 8:30 AM EST CHIEF COMPLAINT: UTI IDENTIFIER: La Nena Castro is a 69 y.o. old female. HPI: Patient presents to the office today endorsing about 6 to 7 days of urinary frequency, urgency, andburning discomfort upon urination. Started to notice slight urine odor today. No visible blood in the urine. No fever or chills. No flank pain. No nausea or vomiting. No diarrhea. No abdominal pain or distention. No suprapubic discomfort. No abnormal vaginal thinning or discharge. No history of kidney stones. Has diabetes and endorses compliance with Lantus, NovoLog, and Jardiance. A1c decently controlled at 7.5%. Patient has chronic heart failure. No weight gain. No leg swelling. ROS: GENERAL: SEE HPI and No malaise, significant weight loss RESPIRATORY: No cough, wheezing or shortness of breath CARDIOVASCULAR: No chest pain, leg swelling or palpitations GI: SEE HPI : SEE HPI BLOOD TESTER FOWL: SEE HPI. ENDO: No polydipsia MUSCULOSKELETAL: See HPI NEURO: No persistent headache, syncope, seizures, weakness or numbness PAST MEDICAL HISTORY: Patient Active Problem List Diagnosis Date Noted Anxiety 02/15/2024 Carpal tunnel syndrome 02/15/2024 COPD (chronic obstructive pulmonary disease) ([facility]) 02/15/2024 Hyperlipidemia 02/15/2024 Old ID (myocardial infarction) 02/15/2024 TAQUERIA on CPAP 02/15/2024 Diabetes mellitus due to underlying condition with diabetic nephropathy, with long-term current useof insulin ([facility]) 02/15/2024 Morbid obesity with BMI of 45.0-49.9, adult ([facility]) 02/15/2024 Pure hypercholesterolemia 11/17/2023 Aortic stenosis 12/08/2020 CAD (coronary artery disease) 12/08/2020 Microalbuminuria 10/06/2019 Systolic and diastolic hypertension 10/06/2019 Cutaneous candidiasis 07/06/2018 Biventricular ICD (implantable cardioverter-defibrillator) in place 05/07/2018 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 Thyroid nodule 12/10/2016 Pulmonary nodule 01/02/2016 Asthma 01/02/2014 CKD (chronic kidney disease), stage III ([facility]) 01/02/2014 Diabetes mellitus type 2 with neurological manifestations ([facility]) 01/02/2014 Hypertension 01/02/2014 Vitamin D deficiency 01/02/2014 CHF NYHA class II ([facility]) 11/22/2013 SOCIAL HISTORY: Social History Tobacco Use Smoking status: Former Current packs/day: 0.50 Types: Cigarettes Smokeless tobacco: Never Substance Use Topics Alcohol use: No FAMILY HISTORY: Family Status Relation Name Status Mother Father Sister Brother Alive Son Alive Daughter Alive Daughter Alive Neg Hx (Not Specified) No partnership data on file Family History Problem Relation Name Age of Onset No Known Problems Mother Cirrhosis Father Dementia Sister cva Diabetes Brother No Known Problems Son Other (Other: Fibromyalgia) Daughter lymphedema, a fib No Known Problems Daughter no contact Breast cancer Neg Hx Colon cancer Neg Hx Ovarian cancer Neg Hx ACTIVE MEDICATIONS: Outpatient Medications Marked as Taking for the 05/26/24 encounter (Office Visit) with OTTO Cabrales Medication Sig Dispense Refill albuterol sulfate (ProAir RespiClick) 90 mcg/actuation aerosol powdr breath activated Inhale 2 Puffs into the lungs 2 times daily as needed. atorvastatin (LIPITOR) 80 mg tablet Take 1 tablet by mouth once daily 90 tablet 1 bacitracin (bacitracin zinc) 500 unit/gram ointment Apply [...] (one) time each day. 90 tablet 3 furosemide (LASIX) 20 mg tablet Take 2 [...] CPAP), Inhale into the lungs at bedtime. ALLERGIES: Patient has no known allergies. PHYSICAL EXAM: Blood pressure 122/60, pulse 73, temperature 35.9 ??C (96.7 ??F), temperature source Temporal, resp. rate 16, height 1.499 m (59 ), weight 90.9 kg (200 lb 6.4 oz). Body mass index is 40.48 kg/m??. Plan is deferred until next visit APPEARANCE: Alert and in no acute distress EYES: conjunctiva and sclera normal HEART: RRR with normal S1 and S2, no murmurs LUNG: clear to auscultation ABDOMEN: Bowel sounds normoactive, no bruits, soft, non-tender, without organomegaly or palpable masses. No rebound, guarding, or rigidity BACK: No CVA tenderness EXTREMITIES: Extremities warm and well perfused without clubbing, cyanosis, or edema NEURO: Awake, alert and oriented x 3 SKIN: Skin color, texture, turgor normal. No rashes. LABS: Lab Results Component Value Date HGBA1C 8.3 (A) 12/09/2023 04/21/24 A1c 7.5% 05/06/2024 GFR 50 BP Readings from Last 5 Encounters: 05/26/24 122/60 05/12/24 110/68 03/09/24 (!) 142/80 02/17/24 132/68 02/04/24 133/61 Wt Readings from Last 5 Encounters: 05/26/24 90.9 kg (200 lb 6.4 oz) 05/12/24 91.5 kg (201 lb 12.8 oz) 03/09/24 95.1 kg (209 lb 9.6 oz) 02/17/24 93.9 kg (207 lb) 02/04/24 97.6 kg (215 lb 3.2 oz) IMPRESSION: 1. Urinary frequency 2. Urinary tract infection symptoms 3. Diabetes mellitus due to underlying condition with diabetic nephropathy, with long-term current use of insulin ([facility]) 4. Systolic and diastolic hypertension PLAN: Urine dipstick is suspicious for UTI with large leukocytes, positive nitrates, large microscopic blood. Patient also with trace ketones. Patient does have glucose in the urine although suspect this is from Jardiance use. Sugars have been decently controlled. Patient will continue present diabetic regimen as instructed. No weight gain or leg swelling. Heart failure appears well compensated. Patient will present medication regimen as instructed and continue to closely monitor weight, leg swelling. She will continue care with cardiology. Have advised against Bactrim given Entresto. Have advised against nitrofurantoin given age over 65 and that most recent GFR was under 60. Patient will begin em piric antibiotic therapy with Augmentin. The risks and benefits of this medication were discussed with the patient. The patient understands the potential side effects and basic interactions of this medication. The patient is asked to call me or my colleagues if they begin to experience any difficulties with this medication. Patient to take probiotic or yogurt during antibiotic course to minimize GI upset and replenish gut bev. Urine is sent for culture. May need to adjust antibiotic pending culture results. Patient understands and agrees to plan. Patient will return to the office for routine care with PCP. Will contact the office sooner with any further problems or concerns, symptoms failing to improve. Orders Placed This Encounter Procedures Culture urine POC Urine Non-Auto W/O Micro ADDITIONAL ORDERS: None OTTO Cabrales on 05/26/2024 at 8:53 AM EST documented in this encounter Plan of Treatment Upcoming Encounters Date Type Department Care Team (Late st Contact Info) Description 06/20/2024 9:00 AM EST Office Visit Adult Medicine [address] [phone] Carmina Ayala MD [address] [place] [address] 07/29/2024 2:10 PM EDT Appointment Radiology Department - [address] [phone] Scheduled Orders Name Type Priority Associated Diagnoses Orde r Schedule Culture urine Microbiology Routine Urinary tract infection symptoms 1 Occurrences starting 05/30/2024 until 05/30/2025 Urinalysis with reflex microscopic Lab Routine Urinary tract infection symptoms 1 Occurrences starting 05/30/2024 until 05/30/2025 documented as of this encounter Procedures Procedure Name Priority Date/Time Associated Diagnosis Comments POC URINE NON-AUTO W/O MICRO Routine 05/26/2024 8:41 AM EST Urinary frequency CULTURE URINE Routine 05/26/2024 8:39 AM EST Urinary frequency documented in this encounter Results * (ABNORMAL) POC Urine Non-Auto W/O Micro (05/26/2024 8:41 AM EST) Pathologist [facility] Leukocytes UA POC Positive(A) Negative Nitrite UA POC Positive(A) Negative Urobilinogen UA POC Negative Negative Protein UA POC Positive(A) Negative PH UA POC 8.5 5.0 - 9.0 Blood UA POC Positive(A) Negative, Trace Specific [place] UA POC 1.010 1.001 - 1.035 Ketones UA POC 1+(A) Negative Bilirubin UA POC Positive(A) Negative Glucose UA POC Positive(A) Normal, Trace Urine Urine specimen obtained by clean catch procedure / Unknown 05/26/2024 8:41 AM EST Santiago MENJIVAR POINT OF CARE TEST ENTER/EDIT OR DERABLES Final Result * (ABNORMAL) Culture urine (05/26/2024 8:39 AM EST) Pathologist [facility] Culture, Urine >100,000 CFU/mL Enterobacter cloacae complex(A) TINA 05/29/2024 11:32 AM EST [facility] Comment: This is an edited result. Previous organism was Gram negative bacilli on 05/28/2024 at 1120 EST. Urine Urine specimen obtained by clean catch procedure / Unknown Non-blood Collection / Unknown 05/26/2024 8:39 AM EST 05/26/2024 8:39 AM EST Narrative [facility] - 05/29/2024 11:32 AM EST Additional colony types present in insignificant amounts. Organism Antibiotic Method Susceptibility Enterobacter cloacae complex Amoxicillin/Clavulanate TINA >=32 ug/ml: Resistant Enterobacter cloacae complex Cefoxitin TINA >=64 ug/ml: Resistant Enterobacter cloacae complex Ceftazidime TINA <=0.5 ug/ml: Susceptible Enterobacter cloacae complex Cefepime TINA <=0.12 ug/ml: Susceptible Enterobacter cloacae complex Meropenem TINA <=0.25 ug/ml: Susceptible Enterobacter cloacae complex Amikacin TINA 2 ug/ml: Susceptible Enterobacter cloacae complex Gentamicin TINA <=1 ug/ml: Susceptible Enterobacter cloacae complex Ciprofloxacin TINA <=0.06 ug/ml: Susceptible Enterobacter cloacae complex Levofloxacin TINA <=0.12 ug/ml: Susceptible Enterobacter cloacae complex Nitrofurantoin TINA 64 ug/ml: Intermediate Enterobacter cloacae complex Trimethoprim/Sulfamethoxazo le TINA <=20 ug/ml: Susceptible Santiago MENJIVAR LAB MICROBIOLOGY - GENERAL ORDER JT Final Result [facility] ([email or web address] [address] [place] [address], documented in this encounter Visit Diagnoses Diagnosis Urinary frequency- Primary Urinary tract infection symptoms Diabetes mellitus due to underlying condition with diabetic nephropathy, with long-term current use of insulin ([facility]) Systolic and diastolic hypertension Encounter for screening mammogram for breast cancer documented in this encounter Discontinued Medications Medication Sig Discontinue Reason Start Date End Da te amoxicillin-clavulanate (AUGMENTIN) 875-125 mg per tablet Take 1 tablet by mouth 2 (two) times a day for 7 days. Alternate therapy 05/26/2024 05/30/2024 documented as of this encounter Care Teams Extension Course Counselor Relationship Specialty Start Date End Date Carmina Ayala MD [address] [place] [id number] PCP - General Internal Medicine 03/09/24 documented as of this encounter
--- OUTSIDE RECORDS SUMMARY | 2024-06-09 13:14 | XMS_ITS | Encounter Summary ---
Author Organization [facility] Address [address] [place] [address] Care Team Providers Care Rides Supervisor Name Role Phone Radha Mccray Primary Care Provider Unavailabl e Mariamakoruslan Colbarrettcco Nancy DO Unavailable Unavailable [place] Colasacco Nancy DO Primary Care Pro vider Unavailable Shawanda Oliver MD Primary Care Provider Noah Gramajo Primary Care Provider [phone] Carmina Varela MD Primary Care Prov ider Db Martino MD Unavailable Unavailable Dario Ling Unavailable Unavailable Encounter Details Date Type Department Care Team Description 03/29/2015 Hospital Medical Records [address] [place] [address] Jaycob Reza Social History Tobacco Use Types Packs/Day Years [...] on filedocumented in this encounter Care Teams Rides Supervisor Relationship Specialty Start Date End Date Radha Mccray PCP - General 01/28/14 06/25/20 Nancy Elliott DO PCP - General Internal Medicine 06/26/20 08/23/20 Shawanda Oliver MD PCP - General Internal Medicine 08/24/20 10/31/21 Noah Parks [address] [place] [address] PCP - General Internal Medicine 11/01/21 11/25/21 Carmina Varela MD [address] [place] [address] PCP - General Internal Medicine 11/26/21 Nancy Elliott, DO Internal Medicine 01/28/14 08/31/22 Db Martino MD [address] [place] [address] Specialist Cardiology 09/01/22 Dario Ling [address] [place] [address] Specialist Pulmonology 09/01/22 documented as of this encounter
--- OUTSIDE RECORDS SUMMARY | 2024-06-09 13:14 | XMS_ITS | Encounter Summary ---
Author Organization [facility] Address [address] [place] [address] Care Team Providers Care Fitter/Welder Name Role Phone Radha Mccray Primary Care Provider Unavailabl e Krakowifranklin Colasacco, Nancy DO Unavailable Unavailable [place] Colasacco, Nancy DO Primary Care Pro vider Unavailable Shawanda Oliver MD Primary Care Provider Noah Gramajo Primary Care Provider [phone] Carmina Varela MD Primary Care Prov ider Db Martino MD Unavailable Unavailable Dario Ling Unavailable Unavailable Encounter Details Date Type Department Care Team Description 04/11/2014 [facility] Medical Records [address] [place] [address] Abstract, Provider Social History Tobacco Use Types [...] Name Priority Date/Time Associated Diagnosis Comments OUTSIDE LAB Routine 02/03/2014 documented in this encounter Results * OUTSIDE LAB (02/03/2014) Provider Abstract LAB documented in this encounter Visit Diagnoses Not on filedocumented in this encounter Care Teams Fitter/Welder Relationship Specialty Start Date End Date Radha Mccray PCP - General 01/28/14 06/25/20 Nancy Elliott DO PCP - General Internal Medicine 06/26/20 08/23/20 Shawanda Oliver MD PCP - General Internal Medicine 08/24/20 10/31/21 Noah Parks [address] [place] [address] PCP - General Internal Medicine 11/01/21 11/25/21 Carmina Varela MD [address] [place] [address] PCP - General Internal Medicine 11/26/21 Nancy Elliott DO Internal Medicine 01/28/14 08/31/22 Db Martino MD [address] [place] [address] Specialist Cardiology 09/01/22 Dario Ling [address] [place] [address] Specialist Pulmonology 09/01/22 documented as of this encounter
--- OUTSIDE RECORDS SUMMARY | 2024-06-09 13:14 | XMS_ITS | Encounter Summary ---
Author Organization [facility] Address [address] [place] [address] Care Team Providers Care Membership Solicitor Name Role Phone Radha Mccray Primary Care Provider Unavailabl e Ariadne Bartono Nancy DO Unavailable Unavailable Mariamakoraviak Chuckcco Nancy DO Primary Care Pro vider Unavailable Shawanda Oliver MD Primary Care Provider Noah Gramajo Primary Care Provider [phone] Carmina Varela MD Primary Care Prov ider Db Martino MD Unavailable Unavailable Dario Ling Unavailable Unavailable Encounter Details Date Type Department Care Team Description 03/02/2015 Transfer Records Medical Records [address] [place], [place] [id number] [place] [address] Social History Tobacco Use Types Packs/Day Years [...] on filedocumented in this encounter Care Teams Membership Solicitor Relationship Specialty Start Date End Date Radha Mccray PCP - General 01/28/14 06/25/20 Nancy Elliott DO PCP - General Internal Medicine 06/26/20 08/23/20 Shawanda Oliver MD PCP - General Internal Medicine 08/24/20 10/31/21 Noah Parks [address] [place] [id number] PCP - General Internal Medicine 11/01/21 11/25/21 Carmina Varela MD [address] [place] [address] PCP - General Internal Medicine 11/26/21 Nancy Elliott, DO Internal Medicine 01/28/14 08/31/22 Db Martino MD [address] [place] [address] Specialist Cardiology 09/01/22 Dario Ling [address] [place] [address] Specialist Pulmonology 09/01/22 documented as of this encounter
--- OUTSIDE RECORDS SUMMARY | 2024-06-09 13:14 | XMS_ITS | Encounter Summary ---
Author Organization [facility] [place] [facility] Address [address] [place] [address] Care Team Providers Care Sock Lining Examiner Name Role Phone Radha Mccray Primary Care Provider Unavailabl e Ariadne Colbarbarao Nancy DO Unavailable Unavailable Mariamakowiak Colasacco Nancy DO Primary Care Pro vider Unavailable Shawanda Oliver MD Primary Care Provider Noah Gramajo Primary Care Provider [phone] Carmina Varela MD Primary Care Prov ider Db Martino MD Unavailable Unavailable Dario Ling Unavailable Unavailable Encounter Details Date Type Department Care Team Description 12/18/2015 Hospital Medical Records [address] [place] [address] [facility] Social History Tobacco Use Types Packs/Day [...] on filedocumented in this encounter Care Teams Sock Lining Examiner Relationship Specialty Start Date End Date Radha Mccray PCP - General 01/28/14 06/25/20 Nancy Elliott DO PCP - General Internal Medicine 06/26/20 08/23/20 Shawanda Oliver MD PCP - General Internal Medicine 08/24/20 10/31/21 Noah Parks [address] [place] [address] PCP - General Internal Medicine 11/01/21 11/25/21 Carmina Varela MD [address] [place] [address] PCP - General Internal Medicine 11/26/21 Nancy Elliott, Internal Medicine 01/28/14 08/31/22 Db Martino MD [address] [place] [address] Specialist Cardiology 09/01/22 Dario Ling [address] [place] [phone] Specialist Pulmonology 09/01/22 documented as of this encounter
--- OUTSIDE RECORDS SUMMARY | 2024-06-09 13:14 | XMS_ITS | Encounter Summary ---
Author Organization [facility] Address [address] [place] [address] Care Team Providers Care Carpenter Inspector Name Role Phone ShaziaConnordavedexter Primary Care Provider Unavailabl e Krakowifranklin Colasacco, Nancy DO Unavailable Unavailable [place] Colasacco, Nancy DO Primary Care Pro vider Unavailable Shawanda Oliver MD Primary Care Provider Noah Gramajo Primary Care Provider [phone] Carmina Varela MD Primary Care Prov ider Db Martino MD Unavailable Unavailable Dario Ling Unavailable Unavailable Encounter Details Date Type Department Care Team Description 05/23/2016 Chief Of Staff Report Medical Records [address] [place] [address] Sharla Rivera [address] [place] [address] Social History Tobacco Use Types Packs/Day Years [...] on filedocumented in this encounter Care Teams Carpenter Inspector Relationship Specialty Start Date End Date Connor Mccraydavedexter PCP - General 01/28/14 06/25/20 Nancy Elliott DO PCP - General Internal Medicine 06/26/20 08/23/20 Shawanda Oliver MD PCP - General Internal Medicine 08/24/20 10/31/21 Noah Parks [address] [place] [address] PCP - General Internal Medicine 11/01/21 11/25/21 Carmina Varela MD [address] [place] [address] PCP - General Internal Medicine 11/26/21 Nancy Elliott DO Internal Medicine 01/28/14 08/31/22 Db Martino MD [address] [place] [address] Specialist Cardiology 09/01/22 Dario Ling [address] [place] [address] Specialist Pulmonology 09/01/22 documented as of this encounter
--- OUTSIDE RECORDS SUMMARY | 2024-06-09 13:14 | XMS_ITS | Encounter Summary ---
Author Organization [facility] Address [address] [place] [address] Care Team Providers Care Grinder Set Up Operator Centerless Name Role Phone Carmina Varela MD Primary Care Prov ider Db Martino MD Unavailable Unavailable Dario Ling Unavailable Unavailable Encounter Details Date Type Department Care Team Description 10/20/2023 Hospital Medical Records [address] [place] [address] Social History Tobacco Use Types Packs/Day Years [...] on filedocumented in this encounter Care Teams Grinder Set Up Operator Centerless Relationship Specialty Start Date End Date Carmina Varela MD [address] [place] [address] [phone] PCP - General Internal Medicine 11/26/21 Db Martino MD [address] [place] [phone] Specialist Cardiology 09/01/22 Dario Ling [address] [place], [place] [phone] Specialist Pulmonology 09/01/22 documented as of this encounter
--- OUTSIDE RECORDS SUMMARY | 2024-06-09 13:14 | XMS_ITS | Encounter Summary ---
Author Organization [facility] Address [address] [place] [address] Care Team Providers Care Museum Docent Name Role Phone Radha Mccray Primary Care Provider Unavailabl e Mariamakoruslan Colbarbarao Nancy DO Unavailable Unavailable [place] Colasacco Nancy DO Primary Care Pro vider Unavailable Shawanda Oliver MD Primary Care Provider Noah Gramajo Primary Care Provider [phone] Carmina Varela MD Primary Care Prov ider Db Martino MD Unavailable Unavailable Dario Ling Unavailable Unavailable Encounter Details Date Type Department Care Team Description 03/25/2015 Hospital Medical Records [address] [place] [address] Heath Verma Social History Tobacco Use Types Packs/Day Years [...] on filedocumented in this encounter Care Teams Museum Docent Relationship Specialty Start Date End Date Radha Mccray PCP - General 01/28/14 06/25/20 Nancy Elliott DO PCP - General Internal Medicine 06/26/20 08/23/20 Shawanda Oliver MD PCP - General Internal Medicine 08/24/20 10/31/21 Noah Parks [address] [place] [address] PCP - General Internal Medicine 11/01/21 11/25/21 Carmina Varela MD [address] [place] [address] PCP - General Internal Medicine 11/26/21 Nancy Elliott, DO Internal Medicine 01/28/14 08/31/22 Db Martino MD [address] [place] [phone] Specialist Cardiology 09/01/22 Dario Ling [address] [place] [phone] Specialist Pulmonology 09/01/22 documented as of this encounter
--- OUTSIDE RECORDS SUMMARY | 2024-06-09 13:14 | XMS_ITS | Encounter Summary ---
Author Organization [facility] Address [address] [place] [address] Care Team Providers Care Architectural Drafter Name Role Phone Carmina Varela MD Primary Care Prov ider Db Martino MD Unavailable Unavailable Dario Ling Unavailable Unavailable Encounter Details Date Type Department Care Team Description 08/04/2023 Plush Finisher Report Medical Records [address] [place] [address] Db Martino MD Social History Tobacco Use [...] on filedocumented in this encounter Care Teams Architectural Drafter Relationship Specialty Start Date End Date Carmina Varela MD [address] [id number] PCP - General Internal Medicine 11/26/21 Db Martino MD [address] [place], [place] [phone] Specialist Cardiology 09/01/22 Dario Ling [address] [place] [address] Specialist Pulmonology 09/01/22 documented as of this encounter
--- OUTSIDE RECORDS SUMMARY | 2024-06-09 13:14 | XMS_ITS | Encounter Summary ---
Author Organization [facility] Address [address] [place] [address] Care Team Providers Care Heavy Equipment Supervisor Name Role Phone Carmina Varela MD Primary Care Prov ider Db Martino MD Unavailable Unavailable Dario Ling Unavailable Unavailable Encounter Details Date Type Department Care Team Description 08/06/2023 Reaming Machine Operator For Plastic Report Medical Records [address] [place] [address] Dario Ling Social History Tobacco Use Types [...] on filedocumented in this encounter Care Teams Heavy Equipment Supervisor Relationship Specialty Start Date End Date Carmina Varela MD [address] [place] [address] PCP - General Internal Medicine 11/26/21 Db Martino MD [address] [place], [place] [id number] Specialist Cardiology 09/01/22 Dario Ling [address] [place] [address] Specialist Pulmonology 09/01/22 documented as of this encounter
--- OUTSIDE RECORDS SUMMARY | 2024-06-09 13:14 | XMS_ITS | Encounter Summary ---
Author Organization [facility] Address [address] [place] [address] Care Team Providers Care Fine Arts Chair Name Role Phone Radha Mccray Primary Care Provider Unavailabl e Krakoruslan Colasacco Nancy DO Unavailable Unavailable [place]rakowiak Colasacco, Nancy DO Primary Care Pro vider Unavailable Shawanda Oliver MD Primary Care Provider Noah Gramajo Primary Care Provider [phone] Carmina Varela MD Primary Care Prov ider Db Martino MD Unavailable Unavailable Dario Ling Unavailable Unavailable Encounter Details Date Type Department Care Team Description 03/28/2016 Chainstitch Felled Seam Operator Report Medical Records [address] [place] [address] Db Martino MD Social History Tobacco Use [...] on filedocumented in this encounter Care Teams Fine Arts Chair Relationship Specialty Start Date End Date Radha Mccray PCP - General 01/28/14 06/25/20 Nancy Elliott DO PCP - General Internal Medicine 06/26/20 08/23/20 Shawanda Oliver MD PCP - General Internal Medicine 08/24/20 10/31/21 Noah Parks [address] [place] [address] PCP - General Internal Medicine 11/01/21 11/25/21 Carmina Varela MD [address] [place] [address] PCP - General Internal Medicine 11/26/21 Nancy Elliott, Internal Medicine 01/28/14 08/31/22 Db Martino MD [address] [place] [address] Specialist Cardiology 09/01/22 Dario Ling [address] [place] [address] Specialist Pulmonology 09/01/22 documented as of this encounter
--- OUTSIDE RECORDS SUMMARY | 2024-06-09 13:15 | XMS_ITS | Encounter Summary ---
Author Organization [facility] Address [address] [place] [address] Care Team Providers Care Cable Tester Name Role Phone Ariadne Colbarbarao, Nancy DO Primary Care Pro vider Unavailable Radha Mccray Primary Care Provider Unavailabl e Krakowiak Colasacco, Nancy DO Unavailable Unavailable [place] Colasacco, Nancy DO Primary Care Pro vider Unavailable Shawanda Oliver MD Primary Care Provider Noah Gramajo Primary Care Provider [phone] Carmina Varela MD Primary Care Prov ider Db Martino MD Unavailable Unavailable Dario Ling Unavailable Unavailable Encounter Details Date Type Department Care Team Description 11/29/2013 Orders Only Adult Medicine [address] [address] KrakowiNancy Thurston DO Social History Tobacco Use Types Packs/Day Years Used Date Smoking Tobacco: Every Day Cigarettes 0.5 Alcohol Use Standard Drinks/Week Comments Not Asked 0 (1 standard drink = 0.6 oz pur e alcohol) Sex Assigned at Date Recorded Not on file Job Start Date Occupation Industry Not on file Not on file Not on file documented as of this encounter Plan of Treatment Not on file documented as of this encounter Visit Diagnoses Not on filedocumented in this encounter Care Teams Cable Tester Relationship Specialty Start Date End Date Nancy Elliott DO PCP - General Internal Medicine 11/07/13 01/27/14 Radha Mccray PCP - General 01/28/14 06/25/20 Nancy Elliott DO PCP - General Internal Medicine 06/26/20 08/23/20 Shawanda Oliver MD PCP - General Internal Medicine 08/24/20 10/31/21 Noah Parks [address] [place] [address] PCP - General Internal Medicine 11/01/21 11/25/21 Carmina Varela MD [address] [place] [address] PCP - General Internal Medicine 11/26/21 Nancy Elliott, DO Internal Medicine 01/28/14 08/31/22 Db Martino MD [address] [place] [address] Specialist Cardiology 09/01/22 Dario Ling [address] [place] [address] Specialist Pulmonology 09/01/22 documented as of this encounter
--- OUTSIDE RECORDS SUMMARY | 2024-06-09 13:15 | XMS_ITS | Encounter Summary ---
Author Organization [facility] Address [address] [place] [address] Care Team Providers Care Green Marketing Analyst Name Role Phone Nancy Elliott DO Unavailable Unavailable Shawanda Oliver MD Primary Care Provider Noah Gramajo Primary Care Provider [phone] Carmina Varela MD Primary Care Prov ider Db Martino MD Unavailable Unavailable Dario Ling Unavailable Unavailable Reason for Visit * Reason Comments E-prescribe Rx Request Encounter Details Date Type Department Care Team Description 11/27/2020 Refill Adult Medicine [address] [address] Nancy Elliott DO E-prescribe Rx Request Social History Tobacco Use [...] Telephone Encounter - Joellen Cervantes M.A. - 11/27/2020 9:21 AM EDT Last office visit 09/04/20 Next office visit 12/05/20 Pt with dx of COPD * Telephone Encounter - Kimberlee Trujillo - 11/27/2020 9:14 AM EDT Patient would like script to be: E-PRESCRIBED/FAXED TO PHARMACY WHEN WAS THE PATIENT'S LAST APPOINTMENT IN ADULT MEDICINE? 09/04/20 WHEN WAS THE LAST TIME THE PATIENT SAW THEIR PCP? Same as above Does patient have an upcoming appointment? Yes 12/05/20 (THE MEDICATION REQUESTED IS ON THE MED LIST ABOVE) All of the medications requested were on the CURRENT MEDS list Did you check the Pharmacy information above?: YES Patient wants: 90 -day supply Is this a mail order prescription request ? NO If the refill is from a FAXED refill request what is the RX # listed on the fax? N/A Patients current insurance carrier is: Payor: [facility] M[facility] / Plan: [facility] $0 [facility] [id number] / Product Type: HMO [id number] documented in this encounter Plan of Treatment Not on file documented as of this encounter Visit Diagnoses Not on filedocumented in this encounter Care Teams Green Marketing Analyst Relationship Specialty Start Date End Date Shawanda Oliver MD PCP - General Internal Medicine 08/24/20 10/31/21 Noah Parks [address] [place] [address] PCP - General Internal Medicine 11/01/21 11/25/21 Carmina Varela MD [address] [place] [address] PCP - General Internal Medicine 11/26/21 Nancy Elliott, DO Internal Medicine 01/28/14 08/31/22 Db Martino MD [address] [place] [address] Specialist Cardiology 09/01/22 Dario Ling [address] [place] [address] Specialist Pulmonology 09/01/22 documented as of this encounter
--- OUTSIDE RECORDS SUMMARY | 2024-06-09 13:15 | XMS_ITS | Encounter Summary ---
Author Organization [facility] Address [address] [place] [address] Care Team Providers Care Ict Quality Assurance Engineer Name Role Phone Ariadne Colbarbarao, Nancy DO Primary Care Pro vider Unavailable Radha Mccray Primary Care Provider Unavailabl e Krakowiak Colasacco, Nancy DO Unavailable Unavailable [place] Colasacco, Nancy DO Primary Care Pro vider Unavailable Shawanda Oliver MD Primary Care Provider Noah Gramajo Primary Care Provider [phone] Carmina Varela MD Primary Care Prov ider Db Martino MD Unavailable Unavailable Dario Ling Unavailable Unavailable Encounter Details Date Type Department Care Team Description 12/05/2013 Orders Only Adult Medicine [address] [address] KrakowiNancy Thurston DO Social History Tobacco Use [...] on filedocumented in this encounter Care Teams Ict Quality Assurance Engineer Relationship Specialty Start Date End Date Nancy Elliott DO PCP - General Internal Medicine 11/07/13 01/27/14 Radha Mccray PCP - General 01/28/14 06/25/20 Nancy Elliott DO PCP - General Internal Medicine 06/26/20 08/23/20 Shawanda Oliver MD PCP - General Internal Medicine 08/24/20 10/31/21 Noah Parks [address] [place] [address] PCP - General Internal Medicine 11/01/21 11/25/21 Carmina Varela MD [address] [place] [address] PCP - General Internal Medicine 11/26/21 Nancy Elliott, DO Internal Medicine 01/28/14 08/31/22 Db Martino MD [address] [place] [address] Specialist Cardiology 09/01/22 Dario Ling [address] [place] [address] Specialist Pulmonology 09/01/22 documented as of this encounter
--- OUTSIDE RECORDS SUMMARY | 2024-06-09 13:15 | XMS_ITS | Encounter Summary ---
Author Organization [facility] Address [address] [place] [address] Care Team Providers Care Car Repairer Pullman Name Role Phone Radha Mccray Primary Care Provider Unavailabl e Mariamakoruslan Colasacco Nancy DO Unavailable Unavailable Krakowiak Colasacco, Nancy DO Primary Care Pro vider Unavailable Shawanda Oliver MD Primary Care Provider Noah Gramajo Primary Care Provider [phone] Carmina Varela MD Primary Care Prov ider Db Martino MD Unavailable Unavailable Dario Ling Unavailable Unavailable Encounter Details Date Type Department Care Team Description 03/25/2017 Sales Support Coordinator Report Medical Records [address] [place] [address] Sandra Benavides MD Social History Tobacco Use Types Packs/Day [...] on filedocumented in this encounter Care Teams Car Repairer Pullman Relationship Specialty Start Date End Date Radha Mccray PCP - General 01/28/14 06/25/20 Nancy Elliott DO PCP - General Internal Medicine 06/26/20 08/23/20 Shawanda Oliver MD PCP - General Internal Medicine 08/24/20 10/31/21 Noah Parks [address] [place] [address] PCP - General Internal Medicine 11/01/21 11/25/21 Carmina Varela MD [address] [place] [address] PCP - General Internal Medicine 11/26/21 Nancy Elliott, Internal Medicine 01/28/14 08/31/22 Db Martino MD [address] [place] [address] Specialist Cardiology 09/01/22 Dario Ling [address] [place] [address] Specialist Pulmonology 09/01/22 documented as of this encounter
--- OUTSIDE RECORDS SUMMARY | 2024-06-09 13:15 | XMS_ITS | Encounter Summary ---
Author Organization [facility] Address [address] [place] [address] Care Team Providers Care Sponsorship Manager Name Role Phone Radha Mccray Primary Care Provider Unavailabl e Mariamakoruslan Colasacco Nancy DO Unavailable Unavailable Krakowiak Colasacco, Nancy DO Primary Care Pro vider Unavailable Shawanda Oliver MD Primary Care Provider Noah Gramajo Primary Care Provider [phone] Carmina Varela MD Primary Care Prov ider Db Martino MD Unavailable Unavailable Dario Ling Unavailable Unavailable Encounter Details Date Type Department Care Team Description 05/07/2017 Licensed Aircraft Maintenance Engineer Report Medical Records [address] [place] [address] Sandra Benavides MD Social History Tobacco Use [...] on filedocumented in this encounter Care Teams Sponsorship Manager Relationship Specialty Start Date End Date Radha Mccray PCP - General 01/28/14 06/25/20 Nancy Elliott DO PCP - General Internal Medicine 06/26/20 08/23/20 Shawanda Oliver MD PCP - General Internal Medicine 08/24/20 10/31/21 Noah Parks [address] [place] [address] PCP - General Internal Medicine 11/01/21 11/25/21 Carmina Varela MD [address] [place] [address] PCP - General Internal Medicine 11/26/21 Nancy Elliott, Internal Medicine 01/28/14 08/31/22 Db Martino MD [address] [place] [address] Specialist Cardiology 09/01/22 Dario Ling [address] [place] [address] Specialist Pulmonology 09/01/22 documented as of this encounter
--- OUTSIDE RECORDS SUMMARY | 2024-06-09 13:15 | XMS_ITS | Encounter Summary ---
Author Organization [facility] Address [address] [place] [address] Care Team Providers Care Concession Worker Name Role Phone Radha Mccray Primary Care Provider Unavailabl e Nancy Elliott DO Unavailable Unavailable Stephon Elliottabela DO Primary Care Pro vider Unavailable Shawanda Oliver MD Primary Care Provider Noah Gramajo Primary Care Provider [phone] Carmina Varela MD Primary Care Prov ider Db Martino MD Unavailable Unavailable Dario Ling Unavailable Unavailable Reason for Visit * Reason Onset Date Comments Provider Call Back 08/16/2018 Encounter Details Date Type Department Care Team Description 08/16/2018 Telephone Adult Medicine [address] [address] Nancy Elliott DO Provider Call Back Social [...] encounter Miscellaneous Notes * Telephone Encounter - Leslie Johnson M.A. - 09/07/2018 4:43 PM EDT Message left with the office to have dr martino call dr calero * Telephone Encounter - Nancy Valdivia DO - 09/06/2018 10:30 PM EDT Would like ot speak to dr martino cards regarding thyroid bx * Telephone Encounter - Nancy Valdivia DO - 08/19/2018 10:53 AM EDT I lm for Dr. Nguyen to call me back * Telephone Encounter - Rose Adler M.A. - 08/16/2018 11:43 AM EDT Left message for pt to returned my call. [phone] * Telephone Encounter - Tiff Hamm - 08/16/2018 11:40 AM EDT Patient calling back requesting to speak with nurse * Telephone Encounter - Kathy Zavala R.N. - 08/16/2018 10:34 AM EDT Pt states she received a message from dr Nancy Mckeon that her u/s showed an increase in size in nodule and she needed to be seen by specialist, she has not heard from anyone and is checking on this * Telephone Encounter - Rose Adler M.A. - 08/16/2018 10:32 AM EDT Pt only want to speak with Dr. Calero * Telephone Encounter - Rabia Owens - 08/16/2018 10:26 AM EDT Caller requesting call back from provider: Is the caller the patient? YES If caller is not the patient, what is the callers name? N/A Callers relationship to patient? N/A If person calling is not the patient themselves, is there a verbal release in FYI or permanent comments for this person: NO Reason for call back: Patient want to speak to Nancy Mckeon and thyroid appt Caller offered to speak with the nurse for assistance: YES Response: Patient offered to speak with nurse for assistance and patient agreed. Message forwarded to nurse. documented in this encounter Plan of Treatment Not on file documented as of this encounter Visit Diagnoses Not on filedocumented in this encounter Care Teams Concession Worker Relationship Specialty Start Date End Date Radha Mccray PCP - General 01/28/14 06/25/20 Nancy Elliott DO PCP - General Internal Medicine 06/26/20 08/23/20 Shawanda Oliver MD PCP - General Internal Medicine 08/24/20 10/31/21 Noah Parks [address] [place] [address] PCP - General Internal Medicine 11/01/21 11/25/21 Carmina Varela MD [address] [place] [address] PCP - General Internal Medicine 11/26/21 Nancy Elliott DO Internal Medicine 01/28/14 08/31/22 Db Martino MD [address] [place] [address] Specialist Cardiology 09/01/22 Dario Ling [address] [place] [address] Specialist Pulmonology 09/01/22 documented as of this encounter
--- OUTSIDE RECORDS SUMMARY | 2024-06-09 13:15 | XMS_ITS | Encounter Summary ---
Author Organization [facility] Address [address] [place] [address] Care Team Providers Care Steward/Stewardess Club Car Name Role Phone Radha Mccray Primary Care Provider Unavailabl e Nancy Elliott DO Unavailable Unavailable Stephon Elliottabela DO Primary Care Pro vider Unavailable Shawanda Oliver MD Primary Care Provider Noah Gramajo Primary Care Provider [phone] Carmina Varela MD Primary Care Prov ider Db Martino MD Unavailable Unavailable Dario Ling Unavailable Unavailable Reason for Visit * Reason Onset Date Comments [facility]NA Call 10/04/2018 Encounter Details Date Type Department Care Team Description 10/04/2018 Telephone Adult Medicine [address] [address] Nancy Elliott DO [facility]NA Call Social History Tobacco Use Types Packs/Day Years [...] encounter Miscellaneous Notes * Telephone Encounter - Kathy Zavala R.N. - 10/04/2018 10:44 AM EDT Pt was assessed and she did not meet the needs for assistance , she does not need help with her dressing bathing or toileting , rufino has also refused services because she did not meet need criteria REHANA Mckeon * Telephone Encounter - Kalpana Tyson - 10/04/2018 10:30 AM EDT [facility] CALL Which [facility] office is calling? [facility] care Full name of caller: Jhoana Collins The caller is A nurse Is the caller at the patients home?: NO Reason for call: Jhoana would like to speak with a nurse about a adult foster care referral. She would like clarification why the referral. Does caller need an urgent call back? NO Was CONTACT Telephone # obtained above?: YES Fax #: documented in this encounter Plan of Treatment Not on file documented as of this encounter Visit Diagnoses Not on filedocumented in this encounter Care Teams Steward/Stewardess Club Car Relationship Specialty Start Date End Date Radha Mccray PCP - General 01/28/14 06/25/20 Nancy Elliott DO PCP - General Internal Medicine 06/26/20 08/23/20 Shawanda Oliver MD PCP - General Internal Medicine 08/24/20 10/31/21 Noah Parks [address] [place] [address] PCP - General Internal Medicine 11/01/21 11/25/21 Carmina Varela MD [address] [place] [address] PCP - General Internal Medicine 11/26/21 Nancy Elliott DO Internal Medicine 01/28/14 08/31/22 Db Martino MD [address] [place] [address] Specialist Cardiology 09/01/22 Dario Ling [address] [place], [place] [phone] Specialist Pulmonology 09/01/22 documented as of this encounter
--- OUTSIDE RECORDS SUMMARY | 2024-06-09 13:15 | XMS_ITS | Encounter Summary ---
Author Organization [facility] Address [address] [place] [address] Care Team Providers Care Burglar Alarm Operator Name Role Phone Radha Mccray Primary Care Provider Unavailabl e Krakoruslan Colasacco, Nancy DO Unavailable Unavailable [place]rakowiak Colasacco, Nancy DO Primary Care Pro vider Unavailable Shawanda Oliver MD Primary Care Provider Noah Gramajo Primary Care Provider [phone] Carmina aVrela MD Primary Care Prov ider Db Martino MD Unavailable Unavailable Dario Ling Unavailable Unavailable Encounter Details Date Type Department Care Team Description 01/05/2018 Hospital Medical Records [address] [place] [address] Sherri Burrell Social History Tobacco Use Types Packs/Day Years [...] on filedocumented in this encounter Care Teams Burglar Alarm Operator Relationship Specialty Start Date End Date Radha Mccray PCP - General 01/28/14 06/25/20 Nancy Elliott DO PCP - General Internal Medicine 06/26/20 08/23/20 Shawanda Oliver MD PCP - General Internal Medicine 08/24/20 10/31/21 Noah Parks [address] [place] [address] PCP - General Internal Medicine 11/01/21 11/25/21 Carmina Varela MD [address] [place] [address] PCP - General Internal Medicine 11/26/21 Nancy Elliott, DO Internal Medicine 01/28/14 08/31/22 Db Martino MD [address] [place] [address] Specialist Cardiology 09/01/22 Dario Ling [address] [place] [address] Specialist Pulmonology 09/01/22 documented as of this encounter
--- OUTSIDE RECORDS SUMMARY | 2024-06-09 13:15 | XMS_ITS | Encounter Summary ---
Author Organization [facility] Address [address] [place] [address] Care Team Providers Care Rn Case Mgr Name Role Phone Radha Mccray Primary Care Provider Unavailabl e Krakoruslan Colasacco, Nancy DO Unavailable Unavailable Krakowiak Colasacco, Nancy DO Primary Care Pro vider Unavailable Shawanda Oliver MD Primary Care Provider Noah Gramajo Primary Care Provider [phone] Carmina Varela MD Primary Care Prov ider Db Martino MD Unavailable Unavailable Dario Ling Unavailable Unavailable Encounter Details Date Type Department Care Team Description 10/24/2019 Coil Spring Assembler Report Medical Records [address] [place] [address] Dario Ling Social History Tobacco Use Types [...] on filedocumented in this encounter Care Teams Rn Case Mgr Relationship Specialty Start Date End Date Radha Mccray PCP - General 01/28/14 06/25/20 Nancy Elliott DO PCP - General Internal Medicine 06/26/20 08/23/20 Shawanda Oliver MD PCP - General Internal Medicine 08/24/20 10/31/21 Noah Parks [address] [place] [address] PCP - General Internal Medicine 11/01/21 11/25/21 Carmina Varela MD [address] [place] [address] PCP - General Internal Medicine 11/26/21 Nancy Elliott DO Internal Medicine 01/28/14 08/31/22 Db Martino MD [address] [place] [address] Specialist Cardiology 09/01/22 Dario Ling [address] [place] [address] Specialist Pulmonology 09/01/22 documented as of this encounter
--- OUTSIDE RECORDS SUMMARY | 2024-06-09 13:15 | XMS_ITS | Encounter Summary ---
Author Organization [facility] Address [address] [place] [address] Care Team Providers Care Senior Asic Engineer Name Role Phone Shazia Gerrydexter Primary Care Provider Unavailabl e Ariadne Colbarrettcco Nancy Unavailable Unavailable Mariamakowiak Colasacco Nancy DO Primary Care Pro vider Unavailable Shawanda Oliver MD Primary Care Provider Noah Gramajo Primary Care Provider [phone] Carmina Varela MD Primary Care Prov ider Db Martino MD Unavailable Unavailable Dario Ling Unavailable Unavailable Encounter Details Date Type Department Care Team Description 10/23/2016 Orders Only Radiology - [address] [address] Krakoruslan ColNancy uribe DO CKD (chronic kidney disease), stage 3 (moderate) (Primary Dx) Social History Tobacco Use Types [...] on file documented as of this encounter Results * CREATININE, BLOOD ASSAY (10/31/2016 10:54 AM EDT) CREAT 0.9 0.7 - 1.5 mg/dL 10/31/2016 2:04 PM EDT [facility] GFR > 60 >60 10/31/2016 2:04 PM EDT [facility] Comment: If patient is -[place], multiply result by 1.21 Chronic Kidney Disease: < 60 ml/min/1.73 square meters Kidney Failure: < 15 ml/min/1.73 square meters 10/31/2016 10:5 4 AM EDT 10/31/2016 10:54 AM EDT Nancy Valdivia DO LAB [address] documented in this encounter Visit Diagnoses Diagnosis CKD (chronic kidney disease), stage 3 (moderate)- Primary documented in this encounter Care Teams Senior Asic Engineer Relationship Specialty Start Date End Date Radha Mccray PCP - General 01/28/14 06/25/20 Nancy Elliott DO PCP - General Internal Medicine 06/26/20 08/23/20 Shawanda Oliver MD PCP - General Internal Medicine 08/24/20 10/31/21 Noah Parks [address] [place] [address] PCP - General Internal Medicine 11/01/21 11/25/21 Carmina Varela MD [address] [place] [address] PCP - General Internal Medicine 11/26/21 Nancy Elliott DO Internal Medicine 01/28/14 08/31/22 Db Martino MD [address] [place] [address] Specialist Cardiology 09/01/22 Dario Ling [address] [place] [address] Specialist Pulmonology 09/01/22 documented as of this encounter
--- OUTSIDE RECORDS SUMMARY | 2024-06-09 13:15 | XMS_ITS | Encounter Summary ---
Author Organization [facility] Address [address] [place] [address] Care Team Providers Care Yard Switcher Name Role Phone Nancy Elliott DO Unavailable Unavailable Shawanda Oliver MD Primary Care Provider Noah Gramajo Primary Care Provider [phone] Carmina Varela MD Primary Care Prov ider Db Martino MD Unavailable Unavailable Dario Ling Unavailable Unavailable Encounter Details Date Type Department Care Team Description 11/21/2020 Repeat Chief Report Medical Records [address] [place] [id number] Abstract, Provider Social History Tobacco Use Types [...] on filedocumented in this encounter Care Teams Yard Switcher Relationship Specialty Start Date End Date Shawanda Oliver MD PCP - General Internal Medicine 08/24/20 10/31/21 Noah Parsk [address] [place] [address] PCP - General Internal Medicine 11/01/21 11/25/21 Carmina Varela MD [address] [place] [address] PCP - General Internal Medicine 11/26/21 Nancy Elliott, DO Internal Medicine 01/28/14 08/31/22 Db Martino MD [address] [place] [address] Specialist Cardiology 09/01/22 Dario Ling [address] [place] [address] Specialist Pulmonology 09/01/22 documented as of this encounter
--- OUTSIDE RECORDS SUMMARY | 2024-06-09 13:15 | XMS_ITS | Encounter Summary ---
Author Organization [facility] Address [address] [place] [address] Care Team Providers Care Medical Field Representative Name Role Phone Radha Mccray Primary Care Provider Unavailabl e Nancy Elliott DO Unavailable Unavailable Stephon Elliottabela DO Primary Care Pro vider Unavailable Shawanda Oliver MD Primary Care Provider Noah Gramajo Primary Care Provider Carmina Varela MD Primary Care Prov ider Db Martino MD Unavailable Unavailable Dario Ling Unavailable Unavailable Reason for Visit * Reason Onset Date Comments VNA Call 08/26/2018 Encounter Details Date Type Department Care Team Description 08/26/2018 Telephone Adult Medicine [address] [address] Nancy Elliott DO VNA Call Social History [...] encounter Miscellaneous Notes * Telephone Encounter - Candida Goldsmith Rn - 08/27/2018 12:01 PM EDT Office notes fx to Jhoana * Telephone Encounter - Michelle Miles - 08/27/2018 9:41 AM EDT Jhoana logan for recent notes sent to see if she qualifies fax number is [phone] Attention Jhoana - * Telephone Encounter - Kathy Zavala R.N. - 08/26/2018 4:21 PM EDT Are you aware of any needs pt has to receive [facility]NA fdc services ? * Telephone Encounter - Karen Desir - 08/26/2018 4:15 PM EDT [facility]NA CALL Which [facility] office is calling? [facility] Full name of caller: Jhoana The caller is A nurse Is the caller at the patients home?: NO Reason for call: Jhoana assess patient's to see if they are qualified to get services. She doesn't believe that she qualifies but would like to receive a comprehensive office visit note and speak to a nurse to discuss in more detail. Does caller need an urgent call back? NO Was CONTACT Telephone # obtained above?: YES Fax #: documented in this encounter Plan of Treatment Not on file documented as of this encounter Visit Diagnoses Not on filedocumented in this encounter Care Teams Medical Field Representative Relationship Specialty Start Date End Date Radha Mccray PCP - General 01/28/14 06/25/20 Nancy Elliott DO PCP - General Internal Medicine 06/26/20 08/23/20 Shawanda Oliver MD PCP - General Internal Medicine 08/24/20 10/31/21 Noah Parks [address] [place] [address] PCP - General Internal Medicine 11/01/21 11/25/21 Carmina Varela MD [address] [place] [address] PCP - General Internal Medicine 11/26/21 Nancy Elliott, DO Internal Medicine 01/28/14 08/31/22 Db Martino MD [address] [place] [address] Specialist Cardiology 09/01/22 Dario Ling [address] [place] [address] Specialist Pulmonology 09/01/22 documented as of this encounter
--- OUTSIDE RECORDS SUMMARY | 2024-06-09 13:15 | XMS_ITS | Encounter Summary ---
Author Organization [facility] Address [address] [place] [address] Care Team Providers Care Machine Operator Name Role Phone Radha Mccray Primary Care Provider Unavailabl e Ariadne Colbarbarao Nancy DO Unavailable Unavailable [place] Colasacco Nancy DO Primary Care Pro vider Unavailable Shawanda Oliver MD Primary Care Provider Noah Gramajo Primary Care Provider [phone] Carmina Varela MD Primary Care Prov ider Db Martino MD Unavailable Unavailable Dario Ling Unavailable Unavailable Encounter Details Date Type Department Care Team Description 03/10/2018 Support Associate Report Medical Records [address] [place], [place] [id number] [place] [address] Social History Tobacco Use Types Packs/Day Years [...] on filedocumented in this encounter Care Teams Machine Operator Relationship Specialty Start Date End Date Radha Mccray PCP - General 01/28/14 06/25/20 Nancy Elliott DO PCP - General Internal Medicine 06/26/20 08/23/20 Shawanda Oliver MD PCP - General Internal Medicine 08/24/20 10/31/21 Noah Parks [address] [place] [address] PCP - General Internal Medicine 11/01/21 11/25/21 Carmina Varela MD [address] [place] [address] PCP - General Internal Medicine 11/26/21 Nancy Elliott, DO Internal Medicine 01/28/14 08/31/22 Db Martino MD [address] [place] [address] Specialist Cardiology 09/01/22 Dario Ling [address] [place] [address] Specialist Pulmonology 09/01/22 documented as of this encounter
--- OUTSIDE RECORDS SUMMARY | 2024-06-09 13:15 | XMS_ITS | Encounter Summary ---
Author Organization [facility] Address [address] [place] [address] Care Team Providers Care Job Putter Up And Ticket Preparer Name Role Phone Radha Mccray Primary Care Provider Unavailabl e Ariadne Colbarbarao Nancy DO Unavailable Unavailable [place] Colasacco Nancy DO Primary Care Pro vider Unavailable Shawanda Oliver MD Primary Care Provider Noah Gramajo Primary Care Provider Carmina Varela MD Primary Care Prov ider Db Martino MD Unavailable Unavailable Dario Ling Unavailable Unavailable Encounter Details Date Type Department Care Team Description 06/02/2016 Brick Loader Report Medical Records [address] [place], [place] [id number] [place] [address] Social History Tobacco Use Types Packs/Day Years [...] on filedocumented in this encounter Care Teams Job Putter Up And Ticket Preparer Relationship Specialty Start Date End Date Radha Mccray PCP - General 01/28/14 06/25/20 Nancy Elliott DO PCP - General Internal Medicine 06/26/20 08/23/20 Shawanda Oliver MD PCP - General Internal Medicine 08/24/20 10/31/21 Noah Parks [address] [place] [address] PCP - General Internal Medicine 11/01/21 11/25/21 Carmina Varela MD [address] [place] [address] PCP - General Internal Medicine 11/26/21 Nancy Elliott, DO Internal Medicine 01/28/14 08/31/22 Db Martino MD [address] [place] [address] Specialist Cardiology 09/01/22 Dario Ling [address] [place] [address] Specialist Pulmonology 09/01/22 documented as of this encounter
--- OUTSIDE RECORDS SUMMARY | 2024-06-09 13:15 | XMS_ITS | Encounter Summary ---
Author Organization [facility] Address [address] [place] [address] Care Team Providers Care Wildlife Biology Internship Name Role Phone Radha Mccray Primary Care Provider Unavailabl e [place] Colasacco Nancy DO Unavailable Unavailable [place] Colasacco, Nancy DO Primary Care Pro vider Unavailable Shawanda Oliver MD Primary Care Provider Noah Gramajo Primary Care Provider [phone] Carmina Varela MD Primary Care Prov ider Db Martino MD Unavailable Unavailable Dario Ling Unavailable Unavailable Encounter Details Date Type Department Care Team Description 01/15/2017 Moisture Tester Report Medical Records [address] [place] [address] Sandoval Patton MD Social History Tobacco Use [...] on filedocumented in this encounter Care Teams Wildlife Biology Internship Relationship Specialty Start Date End Date Radha Mccray PCP - General 01/28/14 06/25/20 Nancy Elliott DO PCP - General Internal Medicine 06/26/20 08/23/20 Shawanda Oliver MD PCP - General Internal Medicine 08/24/20 10/31/21 Noah Parks [address] [place] [address] PCP - General Internal Medicine 11/01/21 11/25/21 Carmina Varela MD [address] [place] [address] PCP - General Internal Medicine 11/26/21 Nancy Elliott DO Internal Medicine 01/28/14 08/31/22 Db Martino MD [address] [place] [address] Specialist Cardiology 09/01/22 Dario Ling [address] [place] [address] Specialist Pulmonology 09/01/22 documented as of this encounter
--- OUTSIDE RECORDS SUMMARY | 2024-06-09 13:15 | XMS_ITS | Encounter Summary ---
Author Organization [facility] Address [address] [place] [address] Care Team Providers Care Ampoule Washing Machine Operator Name Role Phone Radha Mccray Primary Care Provider Unavailabl e [place] Colbarbarao Nancy DO Unavailable Unavailable [place] Colasacco Nancy DO Primary Care Pro vider Unavailable Shawanda Oliver MD Primary Care Provider Noah Gramajo Primary Care Provider [phone] Carmina Varela MD Primary Care Prov ider Db Martino MD Unavailable Unavailable Dario Ling Unavailable Unavailable Encounter Details Date Type Department Care Team Description 08/17/2015 Hospital Medical Records [address] [place] [address] Moo Zepeda MD Social History Tobacco Use Types Packs/Day [...] on filedocumented in this encounter Care Teams Ampoule Washing Machine Operator Relationship Specialty Start Date End Date Radha Mccray PCP - General 01/28/14 06/25/20 Nancy Elliott DO PCP - General Internal Medicine 06/26/20 08/23/20 Shawanda Oliver MD PCP - General Internal Medicine 08/24/20 10/31/21 Noah Parks [address] [place] [address] PCP - General Internal Medicine 11/01/21 11/25/21 Carmina Varela MD [address] [place] [address] PCP - General Internal Medicine 11/26/21 Nancy Elliott, DO Internal Medicine 01/28/14 08/31/22 Db Martino MD [address] [place] [address] 41565 Specialist Cardiology 09/01/22 Dario Ling [address] [place] [address]47 Specialist Pulmonology 09/01/22 documented as of this encounter
--- OUTSIDE RECORDS SUMMARY | 2024-06-09 13:15 | XMS_ITS | Encounter Summary ---
Author Organization [facility] Address [address] [place] [address] Care Team Providers Care Plastic Surgery Manager Name Role Phone Radha Mccray Primary Care Provider Unavailabl e [place] Colasacco Nancy DO Unavailable Unavailable [place] Colasacco, Nancy DO Primary Care Pro vider Unavailable Shawanda Oliver MD Primary Care Provider Noah Gramajo Primary Care Provider [phone] Carmina Varela MD Primary Care Prov ider Db Martino MD Unavailable Unavailable Dario Ling Unavailable Unavailable Encounter Details Date Type Department Care Team Description 05/25/2018 Bumper Straightener Report Medical Records [address] [place] [address] Abstract, Provider Social History Tobacco Use Types [...] on filedocumented in this encounter Care Teams Plastic Surgery Manager Relationship Specialty Start Date End Date Radha Mccray PCP - General 01/28/14 06/25/20 Nancy Elliott DO PCP - General Internal Medicine 06/26/20 08/23/20 Shawanda Oliver MD PCP - General Internal Medicine 08/24/20 10/31/21 Noah Parks [address] [place] [address] PCP - General Internal Medicine 11/01/21 11/25/21 Carmina Varela MD [address] [place] [address] PCP - General Internal Medicine 11/26/21 Nancy Elliott, Internal Medicine 01/28/14 08/31/22 Db Martino MD [address] [place] [address] 20225 Specialist Cardiology 09/01/22 Dario Ling [address] [place] [address] Specialist Pulmonology 09/01/22 documented as of this encounter
--- OUTSIDE RECORDS SUMMARY | 2024-06-09 13:15 | XMS_ITS | Encounter Summary ---
Author Organization [facility] Address [address] [place] [address] Care Team Providers Care Molecular Biology Scientist Name Role Phone Radha Mccray Primary Care Provider Unavailabl e [place] Colasacco Nancy DO Unavailable Unavailable [place] Colasacco, Nancy DO Primary Care Pro vider Unavailable Shawanda Oliver MD Primary Care Provider Noah Gramajo Primary Care Provider [phone] Carmina Varela MD Primary Care Prov ider Db Martino MD Unavailable Unavailable Dario Ling Unavailable Unavailable Encounter Details Date Type Department Care Team Description 09/01/2016 Hospital Medical Records [address] [place] [address] Kobe Duggan Social History Tobacco Use Types Packs/Day Years [...] on filedocumented in this encounter Care Teams Molecular Biology Scientist Relationship Specialty Start Date End Date Radha Mccray PCP - General 01/28/14 06/25/20 Nancy Elliott DO PCP - General Internal Medicine 06/26/20 08/23/20 Shawanda Oliver MD PCP - General Internal Medicine 08/24/20 10/31/21 Noah Parks [address] [place] [address] PCP - General Internal Medicine 11/01/21 11/25/21 Carmina Varela MD [address] [place] [address] PCP - General Internal Medicine 11/26/21 Nancy Elliott, DO Internal Medicine 01/28/14 08/31/22 Db Martino MD [address] [place] [address]47 Specialist Cardiology 09/01/22 Dario Ling [address] [place] [address] 30854 Specialist Pulmonology 09/01/22 documented as of this encounter
--- OUTSIDE RECORDS SUMMARY | 2024-06-09 13:15 | XMS_ITS | Clinical Summary ---
Author Organization [address] Address [address] [place] [phone] Phone Care Team Providers Care [employer] President Name Role Phone Carmina Ayala MD Primary Care Prov ider Allergies No known active allergies Medications citalopram (CeleXA) 20 mg tablet Take 1 tablet (20 mg total) by mouth 1 (one) time each day. Active insulin aspart (NovoLOG Flexpen U-100 Insulin) 100 unit/mL (3 mL) injection pen Use three times a day before meals: <100:0 units, 101-150: 4 units, 151-200: 6 untis, 201-250: 8 units, 251-300: 10 units, >300: 12 units Active glucose blood test strip To check blood sugars 3 times a day 2024 Active blood-glucose meter kit To check sugars 3 times a day Active lancets lancets To check sugars 3 times a day. Active sacubitriL-va lsartan (Entresto) 97-103 mg per tablet Take 97-103 mg by mouth daily. Active UNABLE TO FIND Inject 1 Each as directed 4 times daily. 023 Active UNABLE TO FIND Blood Glucose Calibration (FreeStyle Control Solution) Liquid, USE DIRECTED WITH GLUCOMETER Active ipratropium-a lbuteroL (Combivent Respimat) 20-100 mcg/actuation inhaler INHALE 1 PUFF BY MOUTH 4 TIMES DAILY Active furosemide (LASIX) 20 mg tablet Take 2 tablets (40 mg total) by mouth 2 (two) times a day. Active carvediloL (COREG) 25 mg tablet Take 25 mg by mouth 2 times daily (with meals). Active rivaroxaban (Xarelto) 20 mg tablet Take 1 tablet (20 mg total) by mouth 1 (one) time each day. Active albuterol sulfate (ProAir RespiClick) 90 mcg/actuation aerosol powdr breath activated Inhale 2 Puffs into the lungs 2 times daily as needed. Active nystatin (MYCOSTATIN) ointment Apply twice daily to affected area Active nystatin, bulk, 10 billion unit powder Apply to skin folds twice daily, dispense one large bottle Active bacitracin (bacitracin zinc) 500 unit/gram ointment Apply to both feet daily for dry skin Active UNABLE TO FIND CPAP Historical (HISTORICAL CPAP), Inhale into the lungs at bedtime. Active Lantus Solostar U-100 Insulin 100 unit/mL (3 mL) injection pen INJECT 28 UNITS SUBCUTANEOUSLY AT BEDTIME 30 mL Active spironolacton e (ALDACTONE) 25 mg tablet Take 1 tablet (25 mg total) by mouth 1 (one) time each day. Active empagliflozin (Jardiance) 25 mg tablet Take 1 tablet (25 mg total) by mouth 1 (one) time each day. 90 tablet 3 025 2025 Active atorvastatin (LIPITOR) 80 mg tablet Take 1 tablet by mouth once daily 90 tablet 1 Active atorvastatin (LIPITOR) 80 mg tablet Take 1 tablet (80 mg total) by mouth 1 (one) time each day. 024 2024 Discontinued empagliflozin (Jardiance) 25 mg tablet Take 1 tablet (25 mg total) by mouth 1 (one) time each day. 2024 Discontinued(R eorder) amoxicillin-c lavulanate (AUGMENTIN) 875-125 mg per tablet Take 1 tablet by mouth 2 (two) times a day for 7 days. 14 each 025 2024 Discontinued(A lternate therapy) cefdinir (OMNICEF) 300 mg capsule Take 1 capsule (300 mg total) by mouth 2 (two) times a day for 7 days. 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 Also encouraged her to keep tight control of her DMII to avoid recurrence. 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 Will continue same regimen. Orders: Blood pressure monitor Vitamin D deficiency 01/02/2014 CHF NYHA class II 11/22/2013 Encounters Date Type Department Care Team Description 05/26/2024 8:30 AM EST Office Visit Adult Medicine [address] [phone] Malu Bell [place] Urinary frequency (Primary Dx); Urinary tract infection symptoms; Diabetes mellitus due to underlying condition with diabetic nephropathy, with long-term current use of insulin ([facility]); Systolic and diastolic hypertension 05/12/2024 10:30 AM EST Office Visit Adult [address] [phone] Carmina Miller MD Hospital discharge follow-up (Primary Dx); Acute on chronic congestive heart failure, unspecified heart failure type ([facility]); Primary hypertension 03/09/2024 10:30 AM EST Office Visit Adult [address] [phone] Carmina Miller MD Hospital discharge follow-up (Primary Dx); Pyelonephritis; Hydronephrosis concurrent with and due to calculi of kidney and ureter; S/P ureteral stent placement; Sepsis with acute hypoxic respiratory failure and septic shock, due to unspecified organism ([facility]); Diabetes mellitus type 2 with neurological manifestations ([facility]); Class 3 severe obesity due to excess calories with serious comorbidity and body mass index (BMI) of 40.0 to 44.9 in adult ([facility]) from Last 3 Months Immunizations Name Administration Dates Next Due Influenza Quadravalent, MDCK , 0.5ml, preservative free (Flucelvax) 6mo and older 02/26/2018 Influenza Quadravalent, MDCK , 0.5ml, with preservative (Flucelvax) 6mo and older 03/05/2017 Influenza trivalent, 0.5mL ( Fluad) 65yo and older 01/03/2021 Influenza trivalent, 0.5mL, preservative free (Fluarix; FluLaval; Fluzone) ages 6mo and older (Afluria) 3 years and older 02/18/2013,01/19/2012 Influenza trivalent, with pr eservative (Fluzone; Afluria) 6mo and older 01/02/2023,03/13/2019,01/09/2016,08/16,01/05/2015,02/01/2014 Influenza, Unspecified 03/15/2022,2016,02/01/2014,03/02,02/18/2007 Moderna (age 6mo & older) Bi valent, COVID-19, 0.5 mL or 0.25 mL dosage 03/15/2022 Moderna SARS-CoV-2 COVID-19, mRNA, LNP-S, preservative free 03/15/2022 PPD Test 05/25/2018,12/27/2014,01/03/2000 Pneumococcal conjugate 13 va lent (Prevnar 13, PCV13) 2mo and older 09/30/2021 Pneumococcal conjugate 20 va lent (Prevnar 20, PCV 20) 2mo and older 10/13/2022 Pneumococcal polysaccharide 23 valent (Pneumovax 23) 2yo and older 01/07/2017,12/22/2011,03/02/2008,12/19 TD, Adsorbed, Preservative Free 02/18/2007 Td Tetanus diptheria (Tdvax) 7yo and older 10/20/2010,01/01/2000 Tdap Tetanus diptheria acell ular pertussis (Boostrix; Adacel) 7yo and older 12/27/2014 Zoster Live 09/26/2015,09/26/2015 Zoster recombinant (Shingrix ) 19yo and older 01/02/2023,10/18/2022 Surgical History Surgery Date Site/Laterality Comments CHOLECYSTECTOMY PROCEDURE: HISTORICAL CHOLECYSTECTOMY APPENDECTOMY PROCEDURE: HISTORICAL APPENDECTOMY CARPAL TUNNEL RELEASE Bilateral PROCEDURE: CT NEUROPLASTY &/TRANSPOS MEDIAN NRV CARPAL TUNNE OTHER SURGICAL HISTORY 10/01/14 PROCEDURE: CT BRNCHSC INCL FLUOR GDNCE DX W/CELL WASHG SPX; COMMENT: ?aspiration OTHER SURGICAL HISTORY 12/05/2016 PROCEDURE: CT OPEN TX NASAL SEPTAL FRACTURE W/WO STABILIZATION CORONARY ARTERY BYPASS GRAFT 12/10/2017 PROCEDURE: HISTORICAL CABG Medical History Medical History Date Comments Diabetes ([facility]) DX:Diabetes ( HCC) Anxiety DX:Anxiety Dyslipidemia DX:Dyslipidemia TAQUERIA on CPAP DX:TAQUERIA on CPAP; COMMENT: dr bowling COPD (chronic obstructive pu lmonary disease) ([facility]) DX:COPD (chronic obstructive pulmonary disease) ([facility]) Smoking DX:Smoking; COMM ENT: 25 pack yr CAD (coronary artery disease) DX :CAD (coronary artery disease); COMMENT: Dr. Martino OA (osteoarthritis) of knee DX:O A (osteoarthritis) of knee Hypertension 01/02/2014 DX:Hypertension Diabetes type 2, uncontrolled DX :Diabetes type 2, uncontrolled Old ID (myocardial infarction) D X:Old ID (myocardial infarction); COMMENT: Dr. Martino Diabetes mellitus with renal manifestation ([facility]) 01/02/2014 DX:Diabetes mellitus with re nal manifestation ([facility]) Vitamin D deficiency 01/02/2014 DX:Vitamin D deficiency Hyperlipidemia DX:Hyperlipidemi a Asthma 01/02/2014 DX:Asthma CKD (chronic kidney disease) , stage III (CMS/HCC) 01/02/2014 DX:CKD (chronic kidney disea se), stage III ([facility]) Diabetes mellitus type 2 wit h neurological manifestations ([facility]) 01/02/2014 DX:Diabetes vianney itus type 2 with neurological manifestations ([facility]) ICD (implantable cardioverter-defibrillator) in place DX:ICD (implantab le cardioverter-defibrillator) in place 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) DX: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) Cellulitis of breast 12/2016 DX:Cellulit is of breast Breast mass 01/2017 DX:Breast mass; COMMENT: dr light Cataract DX:Cataract; COM MENT: Cortical and nuclear sclerotic bilaterally Morbid obesity (CMS/HCC) 02/26/2018 DX:Morb id obesity ([facility]) Family History Medical History Relation Name Comments Diabetes Brother Other: Fibromyalgia Daughter 1 lympheddontae thakkar a fib No Known Problems Daughter 2 no contact Cirrhosis Father No Known Problems Mother Dementia Sister cva No Known Problems Son Breast cancer Neg Hx Colon cancer Neg Hx Ovarian cancer Neg Hx Relation Name Status Comments Brother Alive Daughter 1 Alive Daughter 2 Alive Father Mother Sister Son Alive Social History Tobacco Use Types Packs/Day Years [...] Record ed Within the last 3 months, ho guillaume many times did you visit the emergency [...] care for your loved ones. For example, early childhood special educator or elderly care for an older adult? [...] on file Sexual Orientation Not on file Obstetrics History Last Filed Vital Signs Vital Sign Reading [...] Mass Index 40.48 05/26/2024 8:36 AM EST Plan of Treatment Upcoming Encounters Date Type Department Care Team (Late st Contact Info) Description 06/20/2024 9:00 AM EST Office Visit Adult Medicine [facility] - [address] [phone] Carmina Ayala MD [address] [place] [id number] 07/29/2024 2:10 PM EDT Appointment Radiology Department - [address] [phone] Health Maintenance Due Date Last Done Comments Hepatitis A Vaccines (1 of 2 - Risk 2-dose series) 1973 Hepatitis B Vaccines (1 of 3 - Risk 3-dose series) 2014 RSV Immunization Patients 60+ Years Old (1 - Risk 60-74 years 1-dose series) 2014 Colorectal Cancer Screening: Colonoscopy 04/05/2022 07/28/2011 Medicare Annual Wellness Visit 04/05/2022 COVID-19 Vaccine ( season) 2023 02/27/2023, 03/15/2022, 03/15/2022, Additional history exists Diabetes: Annual Urine Albumin-Creatinine Ratio (uACR) 12/27/2023 12/26/2022 Breast Cancer Screening 04/10/2024 04/10/20, 11/23/2017, 11/21/2016 Depression Screening 07/01/2024 07/02/2023 Diabetes: Annual Retina Eye Exam 08/10/2024 08/11/2023 Diabetes: Blood Sugar Control Test (HGBA1C) 10/20/2024 04/21/2024, 12/09/2023, 12/09/2023 Diabetes: Annual Foot Exam 11/16/2024 11/17/2023, Diabetes: Annual GFR (Glomerular Filtration Rate) 12/08/2024 12/09/2023, 12/09/2023, 12/09/2023 Hypertension/CHF/CAD Annual BMP Blood Test 12/08/2024 12/09/2023, 12/09/2023, 12/09/2023 DTaP,Tdap,and Td Vaccines (5 - Td or Tdap) 12/27/2024 12/27/2014, 10/20/2010, 02/18/2007, Additional history exists Falls Risk Assessment 02/03/2025 02/04/2024 Social Influencers of Health Screening 03/09/2025 03/09/2024 Cholesterol Screening (Lipid Panel) 12/27/2027 12/26/2022 Osteoporosis Screening (Bone Density Screening) 02/18/2034 02/19/2024, 02/19/2024 Hepatitis C Screening Completed 04/17/2016 Pneumococcal Vaccine: 50+ Years Completed 10/13/2022, 09/30/2021, 01/07/2017, Additional history exists Zoster Vaccines Completed 01/02/2023, 09/26, 09/26/2015, Additional history exists Influenza Vaccine Completed 02/10/2024, , 03/15/2022, Additional history exists HIB Vaccines Aged Out No longer eligi ble based on patient's age to complete this topic HPV Vaccines Aged Out No longer eligi ble based on patient's age to complete this topic IPV Vaccines Aged Out No longer eligi ble based on patient's age to complete this topic MMR Vaccines Aged Out No longer eligi ble based on patient's age to complete this topic Meningococcal ACWY Vaccine Aged Out N o longer eligible based on patient's age to complete this topic Meningococcal B Vacine Aged Out No lo nger eligible based on patient's age to complete this topic RSV Immunization Patients Under 20 months Aged Out No longer eligible based on patient's age to complete this topic Varicella Vaccines Aged Out No longer eligible based on patient's age to complete this topic Procedures Procedure Name Priority Date/Time Associated Diagnosis Comments POC URINE NON-AUTO W/O MICRO Routine 05/26/2024 8:41 AM EST Urinary frequency CULTURE URINE Routine 05/26/2024 8:39 AM EST Urinary frequency HEMOGLOBIN A1C Routine 04/21/2024 2:05 PM EST DXA BONE DENSITY STUDY 1+ SITS AXIAL SKEL Routine 02/19/2024 10:04 AM EDT Encounter for screening for osteoporosis FALLS RISK ASSESSMENT Routine 02/04/2024 ANNUAL BMP BLOOD TEST Routine 12/09/2023 DIABETES EYE EXAM Routine 08/11/2023 DEPRESSION SCREENING Routine 07/02/2023 URINE ALBUMIN CREATININE RATIO Routine 12/26/2022 LIPID PANEL Routine 12/26/2022 SCREENING MAMMOGRAPHY BI 2-VIEW BREAST INC CAD Routine 04/10/2022 9:12 AM EST Encounter for other screening for malignant neoplasm of breast HEPATITIS C SCREENING Routine 04/17/2016 COLONOSCOPY Routine 07/28/2011 DIABETES FOOT EXAM Routine 11/17/2003 from Last 3 Months or Most Recently Relevant to Health Maintenance Results * (ABNORMAL) POC Urine Non-Auto W/O Micro (05/26/2024 8:41 AM EST) Leukocytes UA POC Positive(A) Negative Nitrite UA POC Positive(A) Negative Urobilinogen UA POC Negative Negative Protein UA POC Positive(A) Negative PH UA POC 8.5 5.0 - 9.0 Blood UA POC Positive(A) Negative, Trace Specific [place]more UA POC 1.010 1.001 - 1.035 Ketones UA POC 1+(A) Negative Bilirubin UA POC Positive(A) Negative Glucose UA POC Positive(A) Normal, Trace Urine Urine specimen obtained by clean catch procedure / Unknown 05/26/2024 8:41 AM EST Malu MENJIVAR POINT OF CARE TEST ENTER/EDIT OR DERABLES Final Result * (ABNORMAL) Culture urine (05/26/2024 8:39 AM EST) Culture, Urine >100,000 CFU/mL Enterobacter cloacae complex(A) TINA 05/29/2024 11:32 AM EST [facility] Comment: This is an edited result. Previous organism was Gram negative bacilli on 05/28/2024 at 1120 EST. Urine Urine specimen obtained by clean catch procedure / Unknown Non-blood Collection / Unknown 05/26/2024 8:39 AM EST 05/26/2024 8:39 AM EST Narrative [facility] - 05/29/2024 11:32 AM EST [...] complex Trimethoprim/Sulfamethoxazo le TINA <=20 ug/ml: Susceptible Malu MENJIVAR LAB MICROBIOLOGY - GENERAL ORDER JT Final Result [facility]) [facility] [address] [place] [address], * Hemoglobin A1c (04/21/2024 2:05 PM EST) Blood Venous blood specimen / Unknown Historical Provider LAB BLOOD ORDERABLES Jennifer saldaña Result * DXA BONE DENSITY STUDY 1+ SITS AXIAL SKEL (02/19/2024 10:04 AM EDT) Anatomical Region Laterality Modality Bone Densitometr y 02/17/2024 9:29 AM EDT Narrative 02/22/2024 8:23 AM EDT BONE DENSITY SCAN (DEXA): FINDINGS: Lumbar Spine T-score is -0.2. ?? (SD relative to 20-29 y/o adult) Z-score is 1.9. ??(SD relative to age matched peers) This is considered normal by WHO criteria. Left Hip T-score is -2.0. Z-score is -0.2. This is considered osteopenia by WHO criteria. Comparison exam(s): None. IMPRESSION: IMPRESSION: Osteopenia by WHO criteria. This patient has a 10% risk of major osteoporotic fracture and a 2.8% risk of hip fracture over the next 10 years. (World Health Organization Fracture Risk Assessment) [facility] Department of Internal Medicine recommends using National Osteoporosis Foundation (NOF) guidelines in treatment decisions related to osteoporosis. NOF guidelines suggest considering treatment for postmenopausal women and men aged 50 or older presenting with the following: History of hip or vertebral fracture. T-score = -2.5 (DXA) at the femoral neck, total hip, or spine, after appropriate evaluation to exclude secondary causes. Low bone mass (T-score between -1.0 and -2.5 at the femoral neck or spine) AND a 10-year probability of a hip fracture = 3% OR a 10-year probability of a major osteoporosis-related fracture = 20% based on the [place]-adapted WHO algorithm Please note that all treatment decisions require clinical judgment and consideration of individual patient factors, including patient preferences, co-morbidities, previous drug use, risk factors not captured in the FRAX model (e.g., frailty, falls, vitamin D deficiency, increased bone turnover, interval significant decline in bone density) and possible under- or over-estimation of fracture risk by FRAX. Optional alternative screening schedule based on [address] [facility] May 15, 2011 for patients with osteopenia (based on hip BMD T-score) is as follows: * ??advanced osteopenia (T scores -2.00 to -2.49), BMD testing every year * ??moderate osteopenia (T scores -1.50 to -1.99), BMD testing every 5 years mild osteopenia or normal BMD (T scores -1.50 and higher), BMD testing every 15 years Procedure Note Paula Gonzalez MD - 02/27/2024 BONE DENSITY SCAN (DEXA): FINDINGS: Lumbar Spine T-score is -0.2. (SD relative to 20-29 y/o adult) Z-score is 1.9. (SD relative to age matched peers) This is considered normal by WHO criteria. Left Hip T-score is -2.0. Z-score is -0.2. This is considered osteopenia by WHO criteria. Comparison exam(s): None. IMPRESSION: IMPRESSION: Osteopenia by WHO criteria. This patient has a 10% risk of majorosteoporotic fracture and a 2.8% risk of hip fracture over the next 10 years. (World HealthOrganization Fracture Risk Assessment) [facility] Department of Internal Medicine recommendsusing National Osteoporosis Foundation (NOF) guidelines in treatment decisions related toosteoporosis. NOF guidelines suggest considering treatment for postmenopausal women and menaged 50 or older presenting with the following: History of hip or vertebral fracture. T-score = -2.5 (DXA) at the femoral neck, total hip, or spine, afterappropriate evaluation to exclude secondary causes. Low bone mass (T-score between -1.0 and -2.5 at the femoral neck or spine)AND a 10-year probability of a hip fracture = 3% OR a 10-year probability of a majorosteoporosis-related fracture = 20% based on the [place]-adapted WHO algorithm Please note that all treatment decisions require clinical judgment andconsideration of individual patient factors, including patient preferences, co- morbidities,previous drug use, risk factors not captured in the FRAX model (e.g., frailty, falls, vitaminD deficiency, increased bone turnover, interval significant decline in bone density) andpossible under- or over-estimation of fracture risk by FRAX. Optional alternative screening schedule based on bessy St al., NEJMJanuary 2011 for patients with osteopenia (based on hip BMD T-score) is as follows: * advanced osteopenia (T scores -2.00 to -2.49), BMD testing every year * moderate osteopenia (T scores -1.50 to -1.99), BMD testing every 5years mild osteopenia or normal BMD (T scores -1.50 and higher), BMD testingevery 15 years Carmina Ayala MD [facility] DXA PROCEDURES Final Result * Falls Risk Assessment (02/04/2024) [facility] Falls Risk Assessment abstracted Historical Provider HEALTH MAINTENANCE Final Result * Annual BMP Blood Test (12/09/2023) [facility] Annual BMP Blood Test abstracted [facility] Provider HEALTH MAINTENANCE Final Result * Diabetes Eye Exam (08/11/2023) [facility] Diabetes: Annual Retina Eye Exam abstracted us Historical Provider HEALTH MAINTENANCE Final Result * Depression Screening (07/02/2023) Pathologist [facility] Depression Screening abstracted [facility] Provider HEALTH MAINTENANCE Final Result * Urine Albumin Creatinine Ratio (12/26/2022) Pathologist [facility] Urine Albumin Creatinine Ratio abstracted [facility] Provider [facility] Final Result * Lipid panel (12/26/2022) Pathologist [facility] LDL/HDL Ratio 3 0 - 4 Triglycerides 135 0 - 150 mg/dL Cholesterol 153 0 - 200 mg/dL HDL 62 >=40 mg/dL LDL Cholesterol 64 0 - 100 mg/dL Blood Venous blood specimen / Unknown Result [facility] Provider LAB BLOOD ORDERABLES Jennifer l Result * SCREENING MAMMOGRAPHY BI 2-VIEW BREAST INC CAD (04/10/2022 9:12 AM EST) Anatomical Region Laterality Modality Radiographic Tosha ging 04/01/2022 10:0 1 AM EST Narrative 04/10/2022 1:59 PM EST This is a summary report. The complete report is available in the patient's medical record. If you cannot access the medical record, please contact the sending organization for a detailed fax or copy. Full field digital screening mammography, using both 2D mammography and tomosynthesis, reviewed with CAD and compared to previous. ??The breasts are composed of fatty and fibroglandular tissue. ??No suspicious mass, architectural distortion or suspicious calcifications are identified. IMPRESSION: : No mammographic evidence of malignancy. BIRADS 1-Negative; N. 5 year breast cancer risk assessment 1.4 % Lifetime breast cancer risk assessment 4.6 % Breast cancer risk category Low (<15%) Procedure Note Javi Carmona MD - 06/02/2023 This is a summary report. The complete report is available in thepatient's medical record. If you cannot access the medical record, pleasecontact the sending organization for a detailed fax or copy. Full field digital screening mammography, using both 2D mammography andtomosynthesis, reviewed with CAD and compared to previous. The breastsare composed of fatty and fibroglandular tissue. No suspicious mass,architectural distortion or suspicious calcifications are identified. IMPRESSION: : No mammographic evidence of malignancy. BIRADS 1-Negative; N. 5 year breast cancer risk assessment 1.4 % Lifetime breast cancer risk assessment 4.6 % Breast cancer risk category Low (<15%) Result [facility] Carmina Ayala MD IMG XR PROCEDURES Final Result * Hepatitis C Screening (04/17/2016) [facility] Hepatitis C Screening abstracted Result [facility] Provider HEALTH MAINTENANCE Final Result * Colonoscopy (07/28/2011) [facility] Colonoscopy abstracted, no interpretation Anatomical Region Laterality Modality Other Result [facility] Provider HEALTH MAINTENANCE Final Result * Diabetes Foot Exam (11/17/2003) [facility] Diabetes: Annual Foot Exam abstracted Result [facility] Provider HEALTH MAINTENANCE Final Result from Last 3 Months or Most Recently Relevant to Health Maintenance Insurance [employer] MED[employer]ARE Member Subscriber Plan / Payer (Ef fective 2019-Present) Name:La Nena Castro Relation to Subscriber:Self Name:La Nena Castro Payer ID:[id number] Group ID:[id number] Type:Not on file Address: [place] [facility] [place] [address] Care Teams College President Relationship Specialty Start Date End Date Carmina Ayala MD [address] [place] [address] [id number] PCP - General Internal Medicine 11/13/24
--- OUTSIDE RECORDS SUMMARY | 2024-06-09 13:15 | XMS_ITS | Encounter Summary ---
Author Organization [facility] Address [address] [place] [address] Care Team Providers Care Director Equipment Name Role Phone Radha Mccray Primary Care Provider Unavailabl e Nancy Elliott DO Unavailable Unavailable Nancy Elliott DO Primary Care Pro vider Unavailable Shawanda Oliver MD Primary Care Provider Noah Garmajo Primary Care Provider [phone] Carmina Varela MD Primary Care Prov ider Db Martino MD Unavailable Unavailable Dario Ling Unavailable Unavailable Reason for Referral * Non JEFFERY (Priority) - Authorized/Booked Specialty Diagnoses / Procedures Referred By Mitra pelaez Referred To Contact Endocrinology Procedures REFERRAL TO ENDOCRINOLOGY Nancy Elliott DO [address] [place] [address] Endo/Golden [address] [place] [address] Referral ID Status Reason Start Date Expiration Date V isits Requested Visits Authorized [id number] Authorized/B ooked 10/06/2018 10/06/2019 1 1 * EXTERNAL (Routine) - Closed Specialty Diagnoses / Procedures Referred By Mitra t Referred To Contact Nephrology Procedures REFERRAL TO NEPHROLOGY Nancy Elliott DO [address] [place] [address] External Nephrology Referral ID Status Reason Start Date Expiration Date V isits Requested Visits Authorized SEE REVIEW ON 10/06/2018 Closed 10/06/2018 1 1 Encounter Details Date Type Department Care Team Description 10/06/2018 Orders Only Adult Medicine [address] [address] Nancy Elliott DO Social History Tobacco Use [...] on filedocumented in this encounter Care Teams Director Equipment Relationship Specialty Start Date End Date Radha Mccray PCP - General 01/28/14 06/25/20 Nancy Elliott DO PCP - General Internal Medicine 06/26/20 08/23/20 Shawanda Oliver MD PCP - General Internal Medicine 08/24/20 10/31/21 Noah Parks [address] [place] [address] PCP - General Internal Medicine 11/01/21 11/25/21 Carmina Varela MD [address] [place] [address] PCP - General Internal Medicine 11/26/21 Nancy Elliott DO Internal Medicine 01/28/14 08/31/22 Db Martino MD [address] [place] [address] [place] [address] Specialist Cardiology 09/01/22 Dario Ling [address] [place] [address] Specialist Pulmonology 09/01/22 documented as of this encounter
--- OUTSIDE RECORDS SUMMARY | 2024-06-09 13:15 | XMS_ITS | Encounter Summary ---
Author Organization [facility] Address [address] [place] [address] Care Team Providers Care Service Consultant Name Role Phone Carmina Varela MD Primary Care Prov ider Db Martino MD Unavailable Unavailable Dario Ling Unavailable Unavailable Encounter Details Date Type Department Care Team Description 12/25/2022 Lead Teller Report Medical Records [address] [place] [address] Mariel Arellano FNP Social History Tobacco Use [...] Exposure Response Date Recorded In the last 10 days, have deborah u been in contact with someone who was confirmed or suspected to have Coronavirus/COVID-19? No / Unsure 12/26/2022 9:14 AM EDT documented as of this encounter Plan of Treatment Not on file documented as of this encounter Visit Diagnoses Not on filedocumented in this encounter Care Teams Service Consultant Relationship Specialty Start Date End Date Carmina aVrela MD [address] [place], [place] [phone] PCP - General Internal Medicine 11/26/21 Db Martino MD [address] [place] [address] Specialist Cardiology 09/01/22 Dario Ling [address] [place] [address] Specialist Pulmonology 09/01/22 documented as of this encounter
--- OUTSIDE RECORDS SUMMARY | 2024-06-09 13:15 | XMS_ITS | Encounter Summary ---
Author Organization [facility] Address [address] [place] [address] Care Team Providers Care Operations Engineer Name Role Phone Radha Mccray Primary Care Provider Unavailabl e Krakoruslan Colasacco Nancy DO Unavailable Unavailable [place] Colasacco, Nancy DO Primary Care Pro vider Unavailable Shawanda Oliver MD Primary Care Provider Noah Gramajo Primary Care Provider [phone] Carmina Varela MD Primary Care Prov ider Db Martino MD Unavailable Unavailable Dario Ling Unavailable Unavailable Encounter Details Date Type Department Care Team Description 02/17/2017 Customer Solutions Architect Report Medical Records [address] [place] [address] Sandra Benavides MD Social History Tobacco Use [...] on filedocumented in this encounter Care Teams Operations Engineer Relationship Specialty Start Date End Date Radha Mccray PCP - General 01/28/14 06/25/20 Nancy Elliott DO PCP - General Internal Medicine 06/26/20 08/23/20 Shawanda Oliver MD PCP - General Internal Medicine 08/24/20 10/31/21 Noah Parks [address] [place] [address] PCP - General Internal Medicine 11/01/21 11/25/21 Carmina Varela MD [address] [place] [address] PCP - General Internal Medicine 11/26/21 Nancy Elliott, Internal Medicine 01/28/14 08/31/22 Db Martino MD [address] [place] [address] Specialist Cardiology 09/01/22 Dario Ling [address] [place] [address] Specialist Pulmonology 09/01/22 documented as of this encounter
--- OUTSIDE RECORDS SUMMARY | 2024-06-09 13:15 | XMS_ITS | Encounter Summary ---
Author Organization [facility] Address [address] [place] [address] Care Team Providers Care Paper Cutter Operator Name Role Phone Radha Mccray Primary Care Provider Unavailabl e Krakoruslan Colasacco Nancy DO Unavailable Unavailable [place] Colasacco, Nancy DO Primary Care Pro vider Unavailable Shawanda Oliver MD Primary Care Provider Noah Gramajo Primary Care Provider [phone] Carmina Varela MD Primary Care Prov ider Db Martino MD Unavailable Unavailable Dario Ling Unavailable Unavailable Encounter Details Date Type Department Care Team Description 02/12/2018 Healthcare Sales Representative Report Medical Records [address] [place] [address] Db Martino MD Social History Tobacco Use [...] filedocumented in this encounter Care Teams Paper Cutter Operator Relationship Specialty Start Date End Date Radha Mccray PCP - General 01/28/14 06/25/20 Nancy Elliott DO PCP - General Internal Medicine 06/26/20 08/23/20 Shawanda Oliver MD PCP - General Internal Medicine 08/24/20 10/31/21 Noah Parks [address] [place] [address] PCP - General Internal Medicine 11/01/21 11/25/21 Carmina Varela MD [address] [place] [address] PCP - General Internal Medicine 11/26/21 Nancy Elliott, Internal Medicine 01/28/14 08/31/22 Db Martino MD [address] [place] [address] Specialist Cardiology 09/01/22 Dario Ling [address] [place] [address] Specialist Pulmonology 09/01/22 documented as of this encounter
--- OUTSIDE RECORDS SUMMARY | 2024-06-09 13:15 | XMS_ITS | Encounter Summary ---
Author Organization [facility] Address [address] [place] [address] Care Team Providers Care Dinner Cook Name Role Phone JarenbeatricedeanConnordavedexter Primary Care Provider Unavailabl e Nancy Elliott DO Unavailable Unavailable Nancy Elliott DO Primary Care Pro vider Unavailable Shawanda Oliver MD Primary Care Provider Noah Gramajo Primary Care Provider [phone] Carmina Varela MD Primary Care Prov ider Db Martino MD Unavailable Unavailable Dario Ling Unavailable Unavailable Reason for Visit * Reason Comments E-prescribe Rx Request Encounter Details Date Type Department Care Team Description 06/23/2017 Refill Adult Medicine [address] [address] Nancy Elliott DO E-prescribe Rx Request Social [...] encounter Miscellaneous Notes * Telephone Encounter - Nancy Valdivia DO - 06/23/2017 2:45 PM EST Needs to go to cards, already informed pharm of this in past * Telephone Encounter - Ebony Jarvis M.A. - 06/23/2017 2:39 PM EST Lab Results Component Value Date NA 142 12/10/2016 K 4.5 12/10/2016 CO2 21.5 12/10/2016 CL 106 12/10/2016 BUN 26 12/10/2016 CREAT 1.1 12/10/2016 GLU 279 12/10/2016 CA 9.6 12/10/2016 GFR 53 12/10/2016 Last ov 05/04/17 * Telephone Encounter - May Sawant - 06/23/2017 2:22 PM EST Patient would like script to be: E-PRESCRIBED/FAXED TO PHARMACY WHEN WAS THE PATIENT'S LAST APPOINTMENT IN ADULT MEDICINE? 05/04/17 WHEN WAS THE LAST TIME THE PATIENT SAW THEIR PCP? 12/10/16 Does patient have an upcoming appointment? Yes 09/25/17 (THE MEDICATION REQUESTED IS ON THE MED LIST ABOVE) All of the medications requested were on the CURRENT MEDS list Did you check the Pharmacy information above?: YES Patient wants: 30 -day supply Is this a mail order prescription request ? NO Patients current insurance carrier is: [facility] / Plan: FFS HMO $0 [place] [id number] / Product Type: MEDICAID RISK documented in this encounter Plan of Treatment Not on file documented as of this encounter Visit Diagnoses Not on filedocumented in this encounter Care Teams Dinner Cook Relationship Specialty Start Date End Date Radha Mccray PCP - General 01/28/14 06/25/20 Nancy Elliott DO PCP - General Internal Medicine 06/26/20 08/23/20 Shawanda Oliver MD PCP - General Internal Medicine 08/24/20 10/31/21 Noah Parks [address] [place] [address] PCP - General Internal Medicine 11/01/21 11/25/21 Carmina Varela MD [address] [place] [address] PCP - General Internal Medicine 11/26/21 Nancy Elliott DO Internal Medicine 01/28/14 08/31/22 Db Martino MD [address] [place] [address] Specialist Cardiology 09/01/22 Dario Ling [address] [place] [address] Specialist Pulmonology 09/01/22 documented as of this encounter
--- OUTSIDE RECORDS SUMMARY | 2024-06-09 13:15 | XMS_ITS | Encounter Summary ---
Author Organization [facility] Address [address] [place] [address] Care Team Providers Care Corporate Administrative Assistant Name Role Phone Nancy Elliott DO Unavailable Unavailable Carmina Varela MD Primary Care Prov ider Db Martino MD Unavailable Unavailable Dario Ling Unavailable Unavailable Encounter Details Date Type Department Care Team Description 08/14/2022 Steward/Stewardess Night Report Medical Records [address] [place] [address] Db Martino MD Social History Tobacco Use [...] on filedocumented in this encounter Care Teams Corporate Administrative Assistant Relationship Specialty Start Date End Date Carmina Varela MD [address] [place] [address] [phone] PCP - General Internal Medicine 11/26/21 Nancy Elliott DO Internal Medicine 01/28/14 08/31/22 Db Martino MD [address] [place] [address] Specialist Cardiology 09/01/[address] [place] [address] Specialist Pulmonology 09/01/22 documented as of this encounter
--- OUTSIDE RECORDS SUMMARY | 2024-06-09 13:15 | XMS_ITS | Encounter Summary ---
Author Organization [facility] Address [address] [place] [address] Care Team Providers Care Pillar Man Name Role Phone Krakowiak Colasacco, Nancy DO Primary Care Pro vider Unavailable Radha Mccray Primary Care Provider Unavailabl e [place]rakowiak Colasacco, Nancy DO Unavailable Unavailable [place] Colasacco, Nancy DO Primary Care Pro vider Unavailable Shawanda Oliver MD Primary Care Provider Noah Gramajo Primary Care Provider [phone] Carmina Varela MD Primary Care Prov ider Db Martino MD Unavailable Unavailable Dario Ling Unavailable Unavailable Encounter Details Date Type Department Care Team Description 12/09/2013 Transfer Records Medical Records [address] [place] [address] Abstract, Provider Social History Tobacco Use Types [...] on filedocumented in this encounter Care Teams Pillar Man Relationship Specialty Start Date End Date KraNancy Oliveira DO PCP - General Internal Medicine 11/07/13 01/27/14 Radha Mccray PCP - General 01/28/14 06/25/20 Nancy Elliott DO PCP - General Internal Medicine 06/26/20 08/23/20 Shawanda Oliver MD PCP - General Internal Medicine 08/24/20 10/31/21 Noah Parks [address] [place] [address] PCP - General Internal Medicine 11/01/21 11/25/21 Carmina Varela MD [address] [place] [address] PCP - General Internal Medicine 11/26/21 Nancy Elliott, DO Internal Medicine 01/28/14 08/31/22 Db Martino MD [address] [place] [address] Specialist Cardiology 09/01/22 Dario Ling [address] [place] [address] Specialist Pulmonology 09/01/22 documented as of this encounter
--- OUTSIDE RECORDS SUMMARY | 2024-06-09 13:15 | XMS_ITS | Encounter Summary ---
Author Organization [facility] Address [address] [place] [address] Care Team Providers Care Bearing Press Machine Operator Name Role Phone Radha Mccray Primary Care Provider Unavailabl e Krakoruslan Colasacco, Nancy DO Unavailable Unavailable [place] Colasacco, Nancy DO Primary Care Pro vider Unavailable Shawanda Oliver MD Primary Care Provider Noah Gramajo Primary Care Provider [phone] Carmina Varela MD Primary Care Prov ider Db Martino MD Unavailable Unavailable Dario Ling Unavailable Unavailable Encounter Details Date Type Department Care Team Description 08/04/2016 Hospital Medical Records [address] [place] [address] Patsy Rivera NP Social History Tobacco Use Types Packs/Day Years [...] on filedocumented in this encounter Care Teams Bearing Press Machine Operator Relationship Specialty Start Date End Date Radha Mccray PCP - General 01/28/14 06/25/20 Nancy Elliott DO PCP - General Internal Medicine 06/26/20 08/23/20 Shawanda Oliver MD PCP - General Internal Medicine 08/24/20 10/31/21 Noah Parks [address] [place] [address] PCP - General Internal Medicine 11/01/21 11/25/21 Carmina Varela MD [address] [place] [address] PCP - General Internal Medicine 11/26/21 Nancy Elliott, DO Internal Medicine 01/28/14 08/31/22 Db Martino MD [address] [place] [address] Specialist Cardiology 09/01/22 Dario Ling [address] [place] [address] Specialist Pulmonology 09/01/22 documented as of this encounter
--- OUTSIDE RECORDS SUMMARY | 2024-06-09 13:15 | XMS_ITS | Encounter Summary ---
Author Organization [facility] Address [address] [place] [address] Care Team Providers Care Sports Physiologist Name Role Phone Ariadne Valdivia Nancy DO Primary Care Pro vider Unavailable Radha Mccray Primary Care Provider Unavailabl e Krakowiak Colasacco, Nancy DO Unavailable Unavailable [place]ak Colasacco, Nancy DO Primary Care Pro vider Unavailable Shawanda Oliver MD Primary Care Provider Noah Gramajo Primary Care Provider [phone] Carmina Varela MD Primary Care Prov ider Db Martino MD Unavailable Unavailable Dario Ling Unavailable Unavailable Reason for Visit * Reason Onset Date Comments VNA Call 11/29/2013 Encounter Details Date Type Department Care Team Description 11/29/2013 Telephone Adult Medicine [address] [address] Nancy Elliott DO VNA Call Social History [...] encounter Miscellaneous Notes * Telephone Encounter - Nanda Ramírez M.A. - 11/29/2013 1:11 PM EDT I do not see that med on her list * Telephone Encounter - Becca Modi - 11/29/2013 11:05 AM EDT [facility]NA CALL Which [facility] office is calling? [facility] Full name of caller: Ana Maria The caller is A nurse Is the caller at the patients home?: YES Reason for call: patient needs a refill of her celexa 20 mg 1 daily, [facility] [employer] [place] Does caller need an urgent call back? Yes not urgent Was CONTACT Telephone # obtained above?: YES documented in this encounter Plan of Treatment Not on file documented as of this encounter Visit Diagnoses Not on filedocumented in this encounter Care Teams Sports Physiologist Relationship Specialty Start Date End Date Nancy Elliott DO PCP - General Internal Medicine 11/07/13 01/27/14 Radha Mccray PCP - General 01/28/14 06/25/20 Nancy Elliott DO PCP - General Internal Medicine 06/26/20 08/23/20 Shawanda Oliver MD PCP - General Internal Medicine 08/24/20 10/31/21 Noah Parks [address] [place] [address] PCP - General Internal Medicine 11/01/21 11/25/21 Carmina Varela MD [address] [place] [address] PCP - General Internal Medicine 11/26/21 Nancy Elliott DO Internal Medicine 01/28/14 08/31/22 Db Martino MD [address] [place] [address] Specialist Cardiology 09/01/22 Dario Ling [address] [place], [place] [phone] Specialist Pulmonology 09/01/22 documented as of this encounter
--- OUTSIDE RECORDS SUMMARY | 2024-06-09 13:15 | XMS_ITS | Encounter Summary ---
Author Organization [facility] Address [address] [place] [address] Care Team Providers Care Fried Cake Maker Name Role Phone Radha Mccray Primary Care Provider Unavailabl e Krakoruslan Colasacco, Nancy DO Unavailable Unavailable Krakowiak Colasacco, Nancy DO Primary Care Pro vider Unavailable Shawanda Oliver MD Primary Care Provider Noah Gramajo Primary Care Provider [phone] Carmina Varela MD Primary Care Prov ider Db Martino MD Unavailable Unavailable Dario Ling Unavailable Unavailable Encounter Details Date Type Department Care Team Description 08/05/2016 Hospital Medical Records [address] [place] [address] Tay Booth Social History Tobacco Use Types Packs/Day Years [...] on filedocumented in this encounter Care Teams Fried Cake Maker Relationship Specialty Start Date End Date Radha Mccray PCP - General 01/28/14 06/25/20 Nancy Elliott DO PCP - General Internal Medicine 06/26/20 08/23/20 Shawanda Oliver MD PCP - General Internal Medicine 08/24/20 10/31/21 Noah Parks [address] [place] [address] PCP - General Internal Medicine 11/01/21 11/25/21 Carmina Varela MD [address] [place] [address] PCP - General Internal Medicine 11/26/21 Nancy Elliott, DO Internal Medicine 01/28/14 08/31/22 Db Martino MD [address] [place] [address] Specialist Cardiology 09/01/22 Dario Ling [address] [place] [address] Specialist Pulmonology 09/01/22 documented as of this encounter
--- OUTSIDE RECORDS SUMMARY | 2024-06-09 13:15 | XMS_ITS | Encounter Summary ---
Author Organization [facility] Address [address] [place] [address] Care Team Providers Care Shredded Filler Hopper Feeder Name Role Phone Radha Mccray Primary Care Provider Unavailabl e Mariamakoruslan Colbarrettcco Nancy DO Unavailable Unavailable Krakowiak Colasacco, Anncy DO Primary Care Pro vider Unavailable Shawanda Oliver MD Primary Care Provider Noah Gramajo Primary Care Provider [phone] Carmina Varela MD Primary Care Prov ider Db Martino MD Unavailable Unavailable Dario Ling Unavailable Unavailable Encounter Details Date Type Department Care Team Description 01/28/2018 Release of Information Medical Records [address] [place] [address] Abstract, Provider Social History Tobacco Use Types [...] on filedocumented in this encounter Care Teams Shredded Filler Hopper Feeder Relationship Specialty Start Date End Date Radha Mccray PCP - General 01/28/14 06/25/20 Nancy Elliott DO PCP - General Internal Medicine 06/26/20 08/23/20 Shawanda Oliver MD PCP - General Internal Medicine 08/24/20 10/31/21 Noah Parks [address] [place] [address] PCP - General Internal Medicine 11/01/21 11/25/21 Carmina Varela MD [address] [place] [address] PCP - General Internal Medicine 11/26/21 Nancy Elliott, Internal Medicine 01/28/14 08/31/22 Db Martino MD [address] [place] [address] Specialist Cardiology 09/01/22 Dario Ling [address] [place] [address] Specialist Pulmonology 09/01/22 documented as of this encounter
--- OUTSIDE RECORDS SUMMARY | 2024-06-09 13:15 | XMS_ITS | Encounter Summary ---
Author Organization [facility] Address [address] [place] [address] Care Team Providers Care Diamond Die Polisher Name Role Phone Shazia Radha Primary Care Provider Unavailabl e Nancy Elliott DO Unavailable Unavailable Stephon Elliottabela DO Primary Care Pro vider Unavailable Shawanda Oliver MD Primary Care Provider Noah Gramajo Primary Care Provider [phone] Carimna Varela MD Primary Care Prov ider Db Martino MD Unavailable Unavailable Dario Ling Unavailable Unavailable Reason for Visit * Reason Onset Date Comments Faxed Order 01/18/2018 Encounter Details Date Type Department Care Team Description 01/18/2018 Telephone Adult Medicine [address] [address] Nancy Elliott DO Faxed Order Social History Tobacco Use Types Packs/Day Years [...] encounter Miscellaneous Notes * Telephone Encounter - Jayla Bolton - 01/18/2018 2:32 PM EDT Please sign and fax back orders [facility] Fax [phone] documented in this encounter Plan of Treatment Not on file documented as of this encounter Visit Diagnoses Not on filedocumented in this encounter Care Teams Diamond Die Polisher Relationship Specialty Start Date End Date Radha Mccray PCP - General 01/28/14 06/25/20 Nancy Elliott DO PCP - General Internal Medicine 06/26/20 08/23/20 Shawanda Oliver MD PCP - General Internal Medicine 08/24/20 10/31/21 Noah Parks [address] [place] [address] PCP - General Internal Medicine 11/01/21 11/25/21 Carmina Varela MD [address] [place] [address] PCP - General Internal Medicine 11/26/21 Nancy Elliott DO Internal Medicine 01/28/14 08/31/22 Db Martino MD [address] [place] [address] Specialist Cardiology 09/01/22 Dario Ling [address] [place], [place] [phone] Specialist Pulmonology 09/01/22 documented as of this encounter
--- OUTSIDE RECORDS SUMMARY | 2024-06-09 13:15 | XMS_ITS | Encounter Summary ---
Author Organization [facility] Address [address] [place] [address] Care Team Providers Care Senior Principal Software Engineer Name Role Phone Nancy Elliott DO Unavailable Unavailable Shawanda Oliver MD Primary Care Provider Noah Gramajo Primary Care Provider [phone] Carmina Varela MD Primary Care Prov ider Db Martino MD Unavailable Unavailable Dario Ling Unavailable Unavailable Encounter Details Date Type Department Care Team Description 11/27/2020 Atomizer Assembler Report Medical Records [address] [place] [address] Abstract, Provider Social History Tobacco Use Types [...] on filedocumented in this encounter Care Teams Senior Principal Software Engineer Relationship Specialty Start Date End Date Shawanda Olvier MD PCP - General Internal Medicine 08/24/20 10/31/21 Noah Parks [address] [place] [address] PCP - General Internal Medicine 11/01/21 11/25/21 Carmina Varela MD [address] [place] [address] PCP - General Internal Medicine 11/26/21 Nancy Elliott, DO Internal Medicine 01/28/14 08/31/22 Db Martino MD [address] [place] [address] Specialist Cardiology 09/01/22 Dario Ling [address] [place] [address] Specialist Pulmonology 09/01/22 documented as of this encounter
--- OUTSIDE RECORDS SUMMARY | 2024-06-09 13:15 | XMS_ITS | Encounter Summary ---
Author Organization [facility] Address [address] [place] [address] Care Team Providers Care Keypunch Operators Supervisor Name Role Phone Radha Mccray Primary Care Provider Unavailabl e Krakoruslan Colasacco Nancy DO Unavailable Unavailable [place]owi[place] Colasacco, Nancy DO Primary Care Pro vider Unavailable Shawanda Oliver MD Primary Care Provider Noah Gramajo Primary Care Provider [phone] Carmina Varela MD Primary Care Prov ider Db Martino MD Unavailable Unavailable Dario Ling Unavailable Unavailable Encounter Details Date Type Department Care Team Description 02/04/2017 Sheriff Sergeant Report Medical Records [address] [place] [address] Sandra Benavides MD Social History Tobacco Use [...] on filedocumented in this encounter Care Teams Keypunch Operators Supervisor Relationship Specialty Start Date End Date Radha Mccray PCP - General 01/28/14 06/25/20 Nancy Elliott DO PCP - General Internal Medicine 06/26/20 08/23/20 Shawanda Oliver MD PCP - General Internal Medicine 08/24/20 10/31/21 Noah Parks [address] [place] [address] PCP - General Internal Medicine 11/01/21 11/25/21 Carmina Varela MD [address] [place] [address] PCP - General Internal Medicine 11/26/21 Nancy Elliott, Internal Medicine 01/28/14 08/31/22 Db Martino MD [address] [place] [address] Specialist Cardiology 09/01/22 Dario Ling [address] [place] [address] Specialist Pulmonology 09/01/22 documented as of this encounter
--- OUTSIDE RECORDS SUMMARY | 2024-06-09 13:15 | XMS_ITS | Encounter Summary ---
Author Organization [facility] Address [address] [place] [address] Care Team Providers Care Military Technology Manager Name Role Phone Nancy Elliott DO Unavailable Unavailable Shawanda Oliver MD Primary Care Provider Noah Gramajo Primary Care Provider [phone] Carmina Varela MD Primary Care Prov ider Db Martino MD Unavailable Unavailable Dario Ling Unavailable Unavailable Encounter Details Date Type Department Care Team Description 12/04/2020 Viscose Cellar Charge Hand Report Medical Records [address] [place] [address] Abstract, Provider Social History Tobacco Use Types [...] on filedocumented in this encounter Care Teams Military Technology Manager Relationship Specialty Start Date End Date Shawanda Oliver MD PCP - General Internal Medicine 08/24/20 10/31/21 Noah Parks [address] [place] [address] PCP - General Internal Medicine 11/01/21 11/25/21 Carmina Varela MD [address] [place] [address] PCP - General Internal Medicine 11/26/21 Nancy Elliott, DO Internal Medicine 01/28/14 08/31/22 Db Martino MD [address] [place] [address] Specialist Cardiology 09/01/22 Dario Ling [address] [place] [address] Specialist Pulmonology 09/01/22 documented as of this encounter
--- OUTSIDE RECORDS SUMMARY | 2024-06-09 13:15 | XMS_ITS | Encounter Summary ---
Author Organization [facility] Address [address] [place] [address] Care Team Providers Care Broacher Name Role Phone Shazia Gerrydexter Primary Care Provider Unavailabl e Nancy Elliott DO Unavailable Unavailable Ariadne Valdivia Nancy DO Primary Care Pro vider Unavailable Shawanda Oliver MD Primary Care Provider Noah Gramajo Primary Care Provider [phone] Carmina Varela MD Primary Care Prov ider Db Martino MD Unavailable Unavailable Dario Ling Unavailable Unavailable Reason for Visit * Reason Onset Date Comments Letter 07/02/2018 Encounter Details Date Type Department Care Team Description 07/02/2018 Telephone Adult Medicine [address] [address] Nancy Elliott, DO Letter Social History Tobacco Use Types Packs/Day Years [...] encounter Miscellaneous Notes * Telephone Encounter - Muna Lugo - 07/06/2018 11:02 AM EDT Patient states that she will need: Her Name Her date of Her Address And that she is a patient here listed on the letter. She is asking that this please be mailed to her home address. [address] [place] [address] (Had patient fill out release for letter to be mailed just in case. This is placed in the [facility]) * Telephone Encounter - Nancy Valdivia DO - 07/05/2018 10:48 PM EDT What does the letter need to state? * Telephone Encounter - Mar Vincent - 07/02/2018 2:58 PM EST Letter requested for: Reason for letter: FOR SOCIAL SECURITY Specific notations needed in body of letter: PATIENT A LETTER FOR SOCIAL SECURITY TO GET A ID AND SOCIAL SECURITY CARD. LETTER NEEDS TO BE ON LETTER HEAD THE DATE OF . Date needed for completion: 07/06/2018 When completed: Will leaf size picker-call when completed: documented in this encounter Plan of Treatment Not on file documented as of this encounter Visit Diagnoses Not on filedocumented in this encounter Care Teams Broacher Relationship Specialty Start Date End Date Radha Mccray PCP - General 01/28/14 06/25/20 Nancy Elliott DO PCP - General Internal Medicine 06/26/20 08/23/20 Shawanda Oliver MD PCP - General Internal Medicine 08/24/20 10/31/21 Noah Parks [address] [place] [address] PCP - General Internal Medicine 11/01/21 11/25/21 Carmina Varela MD [address] [place] [address] PCP - General Internal Medicine 11/26/21 Nancy Elliott, DO Internal Medicine 01/28/14 08/31/22 Db Martino MD [address] [place] [address] Specialist Cardiology 09/01/22 Dario Ling [address] [place], [place] [phone] Specialist Pulmonology 09/01/22 documented as of this encounter
--- OUTSIDE RECORDS SUMMARY | 2024-06-09 13:15 | XMS_ITS | Encounter Summary ---
Author Organization [facility] Address [address] [place] [address] Care Team Providers Care Sql Bi Developer Name Role Phone Radha Mccray Primary Care Provider Unavailabl e Krakoruslan Colasacco, Nancy DO Unavailable Unavailable [place] Colasacco, Nancy DO Primary Care Pro vider Unavailable Shawanda Oliver MD Primary Care Provider Noah Gramajo Primary Care Provider [phone] Carmina Varela MD Primary Care Prov ider Db Martino MD Unavailable Unavailable Dario Ling Unavailable Unavailable Encounter Details Date Type Department Care Team Description 01/19/2017 Ship Liner Report Medical Records [address] [place] [address] Db Martino MD Social History Tobacco Use [...] on filedocumented in this encounter Care Teams Sql Bi Developer Relationship Specialty Start Date End Date Radha Mccray PCP - General 01/28/14 06/25/20 Nancy Elliott DO PCP - General Internal Medicine 06/26/20 08/23/20 Shawanda Oliver MD PCP - General Internal Medicine 08/24/20 10/31/21 Noah Parks [address] [place] [address] PCP - General Internal Medicine 11/01/21 11/25/21 Carmina Varela MD [address] [place] [address] PCP - General Internal Medicine 11/26/21 Nancy Elliott, Internal Medicine 01/28/14 08/31/22 Db Martino MD [address] [place] [address] Specialist Cardiology 09/01/22 Dario Ling [address] [place] [address] Specialist Pulmonology 09/01/22 documented as of this encounter
--- OUTSIDE RECORDS SUMMARY | 2024-06-09 13:15 | XMS_ITS | Encounter Summary ---
Author Organization [facility] Address [address] [place] [address] Care Team Providers Care Pot Puncher Name Role Phone Radha Mccray Primary Care Provider Unavailabl e Mariamakoruslan Colbarbarao Nancy DO Unavailable Unavailable Krakowiak Colasacco Nancy DO Primary Care Pro vider Unavailable Shawanda Oliver MD Primary Care Provider Noah Gramajo Primary Care Provider [phone] Carmina Vareal MD Primary Care Prov ider Db Martino MD Unavailable Unavailable Dario Ling Unavailable Unavailable Encounter Details Date Type Department Care Team Description 12/01/2016 Hospital Medical Records [address] [place] [address] Mariel Arellano, RENÉ Social History Tobacco Use Types Packs/Day Years [...] on filedocumented in this encounter Care Teams Pot Puncher Relationship Specialty Start Date End Date Radha Mccray PCP - General 01/28/14 06/25/20 Nancy Elliott DO PCP - General Internal Medicine 06/26/20 08/23/20 Shawanda Oliver MD PCP - General Internal Medicine 08/24/20 10/31/21 Noah Parks [address] [place] [address] PCP - General Internal Medicine 11/01/21 11/25/21 Carmina Varela MD [address] [place] [address] PCP - General Internal Medicine 11/26/21 Nancy Elliott, Internal Medicine 01/28/14 08/31/22 Db Martino MD [address] [place] [address] Specialist Cardiology 09/01/22 Dario Ling [address] [place] [address] Specialist Pulmonology 09/01/22 documented as of this encounter
--- OUTSIDE RECORDS SUMMARY | 2024-06-09 13:15 | XMS_ITS | Encounter Summary ---
Author Organization [facility] Address [address] [place] [address] Care Team Providers Care Dianetic Counselor Name Role Phone Radha Mccray Primary Care Provider Unavailabl e Stephon Elliottabela DO Unavailable Unavailable Mariamakoraviak Micko Nancy DO Primary Care Pro vider Unavailable Shawanda Oliver MD Primary Care Provider Noah Gramajo Primary Care Provider [phone] Carmina Varela MD Primary Care Prov ider Db Martino MD Unavailable Unavailable Dario Ling Unavailable Unavailable Encounter Details Date Type Department Care Team Description 03/28/2018 Hospital Medical Records [address] [place] [address] Social History Tobacco Use Types Packs/Day Years [...] on filedocumented in this encounter Care Teams Dianetic Counselor Relationship Specialty Start Date End Date Radha Mccray PCP - General 01/28/14 06/25/20 Nancy Elliott DO PCP - General Internal Medicine 06/26/20 08/23/20 Shawanda Oliver MD PCP - General Internal Medicine 08/24/20 10/31/21 Noah Parks [address] [place] [address] PCP - General Internal Medicine 11/01/21 11/25/21 Carmina Varela MD [address] [place] [address] PCP - General Internal Medicine 11/26/21 Nancy Elliott, Internal Medicine 01/28/14 08/31/22 Db Martino MD [address] [place] [address] Specialist Cardiology 09/01/22 Dario Ling [address] [place] [address] Specialist Pulmonology 09/01/22 documented as of this encounter
--- OUTSIDE RECORDS SUMMARY | 2024-06-09 13:15 | XMS_ITS | Encounter Summary ---
Author Organization [facility] Address [address] [place] [address] Care Team Providers Care Credit Collector Name Role Phone Radha Mccray Primary Care Provider Unavailabl e Mariamakoruslan Colbarbarao Nancy DO Unavailable Unavailable Krakowiak Colasacco Nancy DO Primary Care Pro vider Unavailable Shawanda Oliver MD Primary Care Provider Noah Gramajo Primary Care Provider [phone] Carmina Varela MD Primary Care Prov ider Db Martino MD Unavailable Unavailable Dario Ling Unavailable Unavailable Encounter Details Date Type Department Care Team Description 08/31/2016 Hospital Medical Records [address] [place] [address] Leoncio Olvera MD Social History Tobacco Use Types Packs/Day [...] on filedocumented in this encounter Care Teams Credit Collector Relationship Specialty Start Date End Date Radha Mccray PCP - General 01/28/14 06/25/20 Nancy Elliott DO PCP - General Internal Medicine 06/26/20 08/23/20 Shawanda Oliver MD PCP - General Internal Medicine 08/24/20 10/31/21 Noah Parks [address] [place] [address] PCP - General Internal Medicine 11/01/21 11/25/21 Carmina Varela MD [address] [place] [address] PCP - General Internal Medicine 11/26/21 Nancy Elliott, Internal Medicine 01/28/14 08/31/22 Db Martino MD [address] [place] [address] Specialist Cardiology 09/01/22 Dario Ling [address] [place] [address] Specialist Pulmonology 09/01/22 documented as of this encounter
--- OUTSIDE RECORDS SUMMARY | 2024-06-09 13:15 | XMS_ITS | Encounter Summary ---
Author Organization [facility] Address [address] [place] [address] Care Team Providers Care Station Cleaning Porter Name Role Phone Nancy Elliott DO Unavailable Unavailable Shawanda Oliver MD Primary Care Provider Noah Gramajo Primary Care Provider [phone] Carmina Varela MD Primary Care Prov ider Db Martino MD Unavailable Unavailable Dario Ling Unavailable Unavailable Encounter Details Date Type Department Care Team Description 11/09/2020 Turbo Electric Operator Report Medical Records [address] [place] [address] Abstract, Provider Social History Tobacco Use Types [...] on filedocumented in this encounter Care Teams Station Cleaning Porter Relationship Specialty Start Date End Date Shawanda Oliver MD PCP - General Internal Medicine 08/24/20 10/31/21 Noah Parks [address] [place] [address] PCP - General Internal Medicine 11/01/21 11/25/21 Carmina Varela MD [address] [place] [address] PCP - General Internal Medicine 11/26/21 Nancy Elliott, DO Internal Medicine 01/28/14 08/31/22 Db Martino MD [address] [place] [address] Specialist Cardiology 09/01/22 Dario Ling [address] [place] [address] Specialist Pulmonology 09/01/22 documented as of this encounter
--- OUTSIDE RECORDS SUMMARY | 2024-06-09 13:15 | XMS_ITS | Encounter Summary ---
Author Organization [facility] Address [address] [place] [address] Care Team Providers Care Director Of Vital Statistics Name Role Phone Nancy Elliott DO Unavailable Unavailable Carmina Varela MD Primary Care Prov ider Db Martino MD Unavailable Unavailable Dario Ling Unavailable Unavailable Encounter Details Date Type Department Care Team Description 08/21/2022 Orders Only Adult Medicine [facility] [address] [place] [address] Carmina Varela MD [address] [place] [address] Preoperative examination; Screening for deficiency anemia Social History Tobacco Use Types Packs/Day Years [...] as of this encounter Plan of Treatment Scheduled Orders Name Type Priority Associated Diagnoses Orde r Schedule CHG BASIC METABOLIC PANEL CALCIUM TOTAL Lab Routine Preoperative examination Expected: 08/21/2022 (Approximate), Expires: 08/21/2023 documented as of this encounter Results * (ABNORMAL) CHG BLOOD COUNT COMPLETE AUTO&AUTO DIFRNTL WBC (08/29/2022 8:41 AM EDT) WHITE BLOOD COUNT 9.2 4.8 - 10.8 x10-3/uL 08/29/2022 12:51 PM EDT [facility] RED BLOOD COUNT 5.0(H) 3.8 - 4.8 x10-6/uL 08/29/2022 12:51 PM EDT [facility] Hemoglobin 15.0 11.5 - 16.0 g/dL 08/29/2022 12:51 PM EDT [facility] Hematocrit 47.1(H) 35 - 47 % 08/29/2022 12:51 PM EDT [facility] MEAN CORPUSCULAR VOLUME 95.2 79 - 98 fL 08/29/2022 12:51 PM EDT [facility] MEAN CORPUSCULAR HEMOGLOBIN 30.3 27 - 32 pg 08/29/2022 12:51 PM EDT [facility] MEAN CORPUSCULAR HGB CONC 31.8(L) 32 - 37 g/dL 08/29/2022 12:51 PM EDT [facility] RED CELL DISTRIBUTION WIDTH 15.8(H) 11 - 15 % 08/29/2022 12:51 PM EDT [facility] PLT COUNT 156 130 - 400 x10-3/uL 08/29/2022 12:51 PM EDT [facility] MEAN PLATELET VOLUME 12.7(H) 7 - 11 fL 08/29/2022 12:51 PM EDT [facility] NRBC % AUTO 0.0 <1 % 08/29/2022 12:51 PM EDT [facility] NEUTROPHILS % 46.9 % 08/29/2022 12:51 PM EDT [facility] LYMPH % 42.1 % 08/29/2022 12:51 PM EDT [facility] MONO % 6.2 % 08/29/2022 12:51 PM EDT [facility] EOS % 3.4 % 08/29/2022 12:51 PM EDT [facility] BASO % 1.2 % 08/29/2022 12:51 PM EDT [facility] IMMATURE GRANULOCYTES % 0.2 % 08/29/2022 12:51 PM EDT [facility] NRBC # AUTO 0.00 <0.1 x10-3/uL 08/29/2022 12:51 PM EDT [facility] NEUT # 4.31 1.5 - 7.0 x10-3/uL 08/29/2022 12:51 PM EDT [facility] LYMPH # 3.87 1 - 5.0 x10-3/uL 08/29/2022 12:51 PM EDT [facility] MONO # 0.57 0.2 - 1.0 x10-3/uL 08/29/2022 12:51 PM EDT [facility] EOS # 0.31 0 - 0.5 x10-3/uL 08/29/2022 12:51 PM EDT [facility] BASO # 0.11 0 - 0.2 x10-3/uL 08/29/2022 12:51 PM EDT [facility] IMMATURE GRANULOCYTES # 0.02 0 - 0.03 x10-3/uL 08/29/2022 12:51 PM EDT [facility] 08/29/2022 8:41 AM EDT 08/29/2022 8:42 AM EDT Narrative [facility] - 08/29/2022 12:51 PM EDT Release to patient->Immediate Carmina Martins MD LAB [facility] documented in this encounter Visit Diagnoses Diagnosis Preoperative examination Preoperative examination, unspecified Screening for deficiency anemia Screening for other and unspecified deficiency anemia Preoperative examination Preoperative examination, unspecified Screening for deficiency anemia Screening for other and unspecified deficiency anemia Diabetes mellitus due to underlying condition with diabetic nephropathy, with long-term current use of insulin (HCC) Screening for endocrine, nutritional, metabolic and immunity disorder Screening for other and unspecified endocrine, nutritional, metabolic, and immunity disorders documented in this encounter Care Teams Director Of Vital Statistics Relationship Specialty Start Date End Date Carmina Varela MD [address] [place] [address] PCP - General Internal Medicine 11/26/21 Nancy Elliott, DO Internal Medicine 01/28/14 08/31/22 Db Martino MD [address] [place] [address] Specialist Cardiology 09/01/22 Dario Ling [address] [place], [place] [phone] Specialist Pulmonology 09/01/22 documented as of this encounter
--- OUTSIDE RECORDS SUMMARY | 2024-06-09 13:16 | XMS_ITS | Encounter Summary ---
Author Organization [facility] Address [address] [place] [address] Care Team Providers Care Clinical Rn Manager Name Role Phone Shazia Gerrydexter Primary Care Provider Unavailabl e Krakoruslan Colasacco, Nancy DO Unavailable Unavailable [place] Colasacco, Nancy DO Primary Care Pro vider Unavailable Shawanda Oliver MD Primary Care Provider Noah Gramajo Primary Care Provider [phone] Carmina Varela MD Primary Care Prov ider Db Martino MD Unavailable Unavailable Dario Ling Unavailable Unavailable Reason for Visit * Reason Onset Date Comments Walk In 03/12/2019 flu symptoms 03/12/2019 Encounter Details Date Type Department Care Team Description 03/12/2019 Telephone Adult Medicine [address] [address] Nino Cui MD Walk In; flu symptoms Social History Tobacco Use Types Packs/Day Years [...] Telephone Encounter - Kathy Zavala R.N. - 03/17/2019 12:56 PM EST Pt has had cough for 2 Days got flu shot and is worreid she may have the flu C/O chest wall pain with deep breath and cough, denies SOB, able to speak in full sentences and hasno audible wheezing, cough is productive for white Sputum, denies fever (has not taken temp) able to take PO with no difficulty, denies N/V Advised homecare following the cough Protocol. RN reinforced telephone consultation and advice. Reviewed with the patient the signs and symptoms to watch for that would require immediate attention. If symptoms change, worsen or increase in intensity, to call back immediately. * Telephone Encounter - Nancy Valdivia DO - 03/14/2019 11:57 AM EST Pls p/o and mail failure to keep referral letter * Telephone Encounter - Nino Cui MD - 03/12/2019 5:44 PM EST The patient was a no-show for endocrinology consultation. I will be glad to see the patient if sentback by the primary physician. documented in this encounter Plan of Treatment Not on file documented as of this encounter Visit Diagnoses Not on filedocumented in this encounter Care Teams Clinical Rn Manager Relationship Specialty Start Date End Date Radha Mccray PCP - General 01/28/14 06/25/20 Nancy Elliott DO PCP - General Internal Medicine 06/26/20 08/23/20 Shawanda Oliver MD PCP - General Internal Medicine 08/24/20 10/31/21 Noah Parks [address] [place] [address] PCP - General Internal Medicine 11/01/21 11/25/21 Carmina Varela MD [address] [place] [address] PCP - General Internal Medicine 11/26/21 Nancy Elliott, DO Internal Medicine 01/28/14 08/31/22 Db Martino MD [address] [place], [place] [phone] Specialist Cardiology 09/01/22 Dario Ling [address] [place] [address] Specialist Pulmonology 09/01/22 documented as of this encounter
--- OUTSIDE RECORDS SUMMARY | 2024-06-09 13:16 | XMS_ITS | Encounter Summary ---
Author Organization [facility] Address [address] [place] [address] Care Team Providers Care Relationship Consultant Name Role Phone Carmina Varela MD Primary Care Prov ider Db Martino MD Unavailable Unavailable Dario Ling Unavailable Unavailable Encounter Details Date Type Department Care Team Description 03/23/2023 Hospital Medical Records [address] [place] [address] Patsy Rivera NP Social History Tobacco Use [...] on filedocumented in this encounter Care Teams Relationship Consultant Relationship Specialty Start Date End Date Carmina Varela MD [address] [place] [address] PCP - General Internal Medicine 11/26/21 Db Martino MD [address] [place] [address] Specialist Cardiology 09/01/22 Dario Ling [address] [place] [address] Specialist Pulmonology 09/01/22 documented as of this encounter
--- OUTSIDE RECORDS SUMMARY | 2024-06-09 13:16 | XMS_ITS | Encounter Summary ---
Author Organization [facility] Address [address] [place] [address] Care Team Providers Care Flight Radio Officer Name Role Phone Radha Mccray Primary Care Provider Unavailabl e Nancy Elliott DO Unavailable Unavailable Stephon Elliottabela DO Primary Care Pro vider Unavailable Shawanda Oliver MD Primary Care Provider Noah Gramajo Primary Care Provider [phone] Carmina Varela MD Primary Care Prov ider Db Martino MD Unavailable Unavailable Dario Ling Unavailable Unavailable Reason for Visit * Reason Onset Date Comments PT-1 04/30/2018 Encounter Details Date Type Department Care Team Description 04/30/2018 Telephone Adult Medicine [address] [address] Nancy Elliott DO PT-1 Social History Tobacco Use Types Packs/Day Years [...] encounter Miscellaneous Notes * Telephone Encounter - Virginie Oneill M.A. - 05/11/2018 2:44 PM EST Tracking #[id number] * Telephone Encounter - Kassy Pimentel - 05/05/2018 12:54 PM EST Patient is calling about the status of this, id#: [id number] * Telephone Encounter - Melinda Garcia - 04/30/2018 4:14 PM EST 09/01/17 [facility] patients will now be included in this workflow: Verify and document patients [place] Health insurance ID # (NOT [facility] ID): [id number] Payor: [facility] FFS / Plan: [employer] / Product Type: MEDICAID RISK Patient mailing address: [address] [place] [address] Pt. demographics verified? YES If not accurate, update registration. Is this a NEW request or a RENEWAL? New Name of treating facility: [facility] Name (first & last) of treating provider? required : Nancy Mckeon What is the medical reason why the patient is seeing the above provider? Hospital follow up Address/Zip code for treating provider: [address] [place] [address] Phone # for treating provider: [phone] Is the provider in the [facility] network (do they accept [place] Health insurance)? YES What specialtly is this provider? Adult meddicine When is the visit scheduled for? 05/07/18 How often you will be seeing this particular provider? Twice a month Do you have friends or family who can transport you to this visit? NO If yes, do not complete request. Is there anything stopping you from using public transportation? If yes, explain. : YES Is there a medical reason (diagnosis) why you are unable to use public transportation? If yes, explain: yes - anxiety Do you need a wheelchair van? NO Do you need an escort to accompany you? If yes, explain why. YES Will you have an alternative pick-up address? NO Do you have a service animal? NO PT DOES NOT NEED RELEASE OF INFORMATION SIGNED documented in this encounter Plan of Treatment Not on file documented as of this encounter Visit Diagnoses Not on filedocumented in this encounter Care Teams Flight Radio Officer Relationship Specialty Start Date End Date Radha Mccray PCP - General 01/28/14 06/25/20 Nancy Elliott DO PCP - General Internal Medicine 06/26/20 08/23/20 Shawanda Oliver MD PCP - General Internal Medicine 08/24/20 10/31/21 Noah Parks [address] [place] [id number] PCP - General Internal Medicine 11/01/21 11/25/21 Carmina Varela MD [address] [place] [address] PCP - General Internal Medicine 11/26/21 Nancy Elliott DO Internal Medicine 01/28/14 08/31/22 Db Martino MD [address] [place] [address] Specialist Cardiology 09/01/22 Dario Ling [address] [place] [address] Specialist Pulmonology 09/01/22 documented as of this encounter
--- OUTSIDE RECORDS SUMMARY | 2024-06-09 13:16 | XMS_ITS | Clinical Summary ---
Author Organization [facility] Address [address] [place] [address] Care Team Providers Care Form Builder Helper Name Role Phone Carmina Varela MD Primary Care Prov ider Db Martino MD Unavailable Unavailable Dario Ling Unavailable Unavailable Allergies No known active allergies Medications Medication Sig Dispensed Refills Start Date End Date Status CPAP Historical (HISTORICAL CPAP) Inhale into the lungs at bedtime. 0 Active Diclofenac Sodium 1 % GelIndications:Peron eal tendinitis of left lower extremity,Pain in left foot Place 1 g onto the skin 2 times daily. Apply to side of left foot 60 g 3 06/13/2016 Active bacitracin ([employer] BACITRACIN) ointmentIndications: Diabetes mellitus type 2 with neurological manifestations (HCC),Hyperkeratosis of sole Apply to both feet daily for dry skin 60 g 3 09/17/2016 Active nystatin (MYCOSTATIN) ointmentIndications: Cutaneous candidiasis Apply twice daily to affected area 30 g 1 07/06/2018 Active Nystatin PowderIndications:Cu taneous candidiasis Apply to skin folds twice daily, dispense one large bottle 1 Each 3 07/06/2018 Active Albuterol Sulfate 108 (90 BASE) MCG/ACT AEROSOL POWDER,BREATH ACTIVATED Inhale 2 Puffs into the lungs 2 times daily as needed. 0 Active XARELTO 20 MG Tab Take 1 tablet by mouth once daily 30 Tab 0 06/28/2019 Active carvedilol (COREG) 25 MG tablet Take 25 mg by mouth 2 times daily (with meals). 0 Active furosemide (LASIX) 20 MG tablet Take 2 Tablets by mouth 2 times daily. 0 Active Combivent Respimat 20-100 MCG/ACT Aero Soln INHALE 1 PUFF BY MOUTH 4 TIMES DAILY 4 g 1 07/08/2021 Active Blood Glucose Calibration (FreeStyle Control Solution) LiquidIndications:Di abetes mellitus type 2 with neurological manifestations (HCC),Diabetes mellitus due to underlying condition with diabetic nephropathy, with long-term current use of insulin (HCC) USE DIRECTED WITH GLUCOMETER 1 Each 0 02/10/2022 Active Insulin Pen Needle (B-D U/F PEN NEEDLE) 31G X 5 MM Misc Inject 1 Each as directed 4 times daily. 400 Each 1 07/25/2022 Active Entresto 97-103 MG Tab Take 97-103 mg by mouth daily. 0 06/24/2022 Active Echbfmqd-Covfutkfa-J exameth 3.5-55981-0.1 Ointment APPLY OINTMENT INTO EACH EYE AT BEDTIME 0 09/30/2022 Active Blood Glucose Monitoring Suppl (ONE TOUCH ULTRA 2) w/Device KitIndications:Diabe samson mellitus type 2 with neurological manifestations (HCC) To check sugars 3 times a day 1 Kit 0 03/13/2023 Active ONE TOUCH ULTRASOFT LANCETS MiscIndications:Diab etes mellitus type 2 with neurological manifestations (HCC) To check sugars 3 times a day. 300 Each 0 03/13/2023 Active Empagliflozin 25 MG Tab Take 1 Tablet by mouth daily. 90 Tablet 0 07/02/2023 Active Insulin Glargine (Lantus SoloStar) 100 UNIT/ML Solution Pen-injector INJECT 28 UNITS SUBCUTANEOUSLY AT BEDTIME 30 mL 1 08/13/2023 Active nicotine (NICODERM CQ) 14 MG/24HR Place 1 Patch onto the skin every 24 hours for 28 days. 28 Patch 0 08/13/2023 Active glucose blood test strips (FREESTYLE TEST STRIPS) strip To check blood sugars 3 times a day 300 Each 2 08/18/2023 Active Insulin Aspart (NovoLOG FlexPen) 100 UNIT/ML Solution Pen-injector Use three times a day before meals: <100:0 units, 101-150: 4 units, 151-200: 6 untis, 201-250: 8 units, 251-300: 10 units, >300: 12 units 30 mL 1 01/01/2024 Active citalopram (CELEXA) 20 MG tablet Take 1 tablet by mouth once daily 90 Tablet 0 01/12/2024 Active atorvastatin (LIPITOR) 80 MG tablet Take 1 tablet by mouth once daily 90 Tablet 0 02/21/2024 Active Active Problems Patient Care Coordination No te Formatting of this note is d ifferent from the original. Checking Your Blood Sugars Please check your blood sugars every day. Please check your sugars at the following times of day: before breakfast, after lunch and after dinner Your Blood Sugar Goals Pre Meal: 90-130 2 hours after meals: 110-160 Bedtime: 110-150 Use the Results ?? Bring your glucometer to every appointment ?? Write your fingerstick blood sugars down on a log sheet or record book. Bring them to your appointment ?? Look for patterns in the numbers. The results help you and your provider make decisions about your diabetes treatment plan. Your Results and your Goals Your Result / Date of Completion Your Goal / How Often to Assess Component Value Date HGBA1C 7.3 02/20/2014 Less than 7% --- 2-4 times per year BP Readings from Last 1 Encounters: 02/22/14 120/80 Less than 140/90 --- once per year Component Value Date MALBCR 13.9 11/22/2013 Less than 30 --- once per year Component Value Date LDL 171 11/22/2013 Less than 100 --- once per year Wt Readings from Last 1 Encounters: 02/22/14 211 lb (95.709 kg) Your goal weight by next visit: 205 --- reassess 2-4 times a year Health Maintenance Due Topic Date Due ? ? Diabetes: Annual Eye Exam 01/21/1972 ? ? Diabetes: Annual Foot Exam 01/21/1972 ? ? Chf Care Plan 01/21/1972 ? ? Diabetes: Annual Care Plan 01/21/1972 ? ? Hepatitis C Screening 01/21/1972 ? ? Adult Immunization: Tetanus Diptheria And Pertussis (Tdap) 1973 ? ? Baseline Health Exam 40-64 1994 ? ? Adult Immunization: Influenza For High Risk Patients 12/26/2013 ? ? Adult Immunization: Zostavax For Patients Over 60 2014 Your Action Plan Check blood glucose as directed and write down all results. Contact me if you experience any barriers to care such as inability to purchase your medication, difficulty getting to your appointments or difficulty understanding your care plan When to Call your Healthcare Provider If your blood sugar falls below 70 and you do not know why or you become unconscious If you are sick and unable to take liquids because or nausea or vomiting If you have a fever over 101 If your blood sugar is 300 or higher on greater than 3 separate occasions during the same week If you are just unsure what to do Educational Resources [place] [employer] (www.diabetes.org) Centers for Disease Control and Prevention (www.cdc.gov/diabetes) This care plan was created in collaboration with La Nena Castro on 02/22/2014 Checking Your Weight Please check your weight every day. Please make sure to check your weight at the same time every day. Your Weight Goal Your weight should not change more than 2-3 pounds in a day or 5 pounds in a week Use the Results ?? Write your weight down on a log sheet or record book. Bring them to your appointments Your Results and your Goals Your Result / Date of Completion Your Goal / How Often to Assess BP Readings from Last 1 Encounters: 02/22/14 120/80 Less than 130/80--- once per year Component Value Date LDL 171 11/22/2013 LDL less than 100--- once per year Wt Readings from Last 1 Encounters: 02/22/14 211 lb (95.709 kg) Dry Weight: 209---- daily Heart Ultrasound (Echocardiogram) Every 2 years (discuss with your physician) Health Maintenance Due Topic Date Due ? ? Diabetes: Annual Eye Exam 01/21/1972 ? ? Diabetes: Annual Foot Exam 01/21/1972 ? ? Chf Care Plan 01/21/1972 ? ? Diabetes: Annual Care Plan 01/21/1972 ? ? Hepatitis C Screening 01/21/1972 ? ? Adult Immunization: Tetanus Diptheria And Pertussis (Tdap) 1973 ? ? Baseline Health Exam 40-64 1994 ? ? Adult Immunization: Influenza For High Risk Patients 12/26/2013 ? ? Adult Immunization: Zostavax For Patients Over 60 2014 Your Action Plan Symptoms Action No shortness of breath, weight gain, chest pain, worsening leg swelling or change in your usual symptoms Continue to weigh yourself daily, take your medicines, eat a low salt diet and go to your doctor appointments Any of These Findings or Symptoms Action Weight gain of 2-3 pounds in a day Weight gain of 5 pounds in a week Increased leg swelling or cough Increased number of pillows to sleep Shortness of breath with activity Call your doctor for instructions Any of These Findings or Symptoms Action Weight gain of more than 5 lbs in 1 week Dizziness or falling Waking at night due to shortness of breath Shortness of breath at rest Chest tightness or wheezing Call your doctor today to report your symptoms and request an appointment Check your weight daily. Write down results. Contact me if you experience any barriers to care such as inability to purchase your medication, difficulty getting to your appointments or difficulty understanding your care plan Please get your yearly flu shot Educational Resources [place] [employer] (www.heart.org) This care plan was created in collaboration with La Nena Castro on 02/22/2014 Problem Noted Date Pure hypercholesterolemia 11/17/2023 CAD (coronary artery disease) 12/08/2020 Aortic stenosis 12/08/2020 Hx of CABG 09/04/2020 Microalbuminuria 10/06/2019 Systolic and diastolic hypertension 09/25 History of pulmonary embolism 10/01/2019 History of ANA 3 s/p WLE by Dr. [place] in 201607/06/2018 Last Assessment & Plan: I reviewed with La Nena the importance of regular surveillance given the high risk of recurrent ANA 3 and possible progression to cancer if not found and treated. She understood. Given acetowhite on colposcopic exam today, I recommended a biopsy. This was performed. If pathology benign, she will follow up in 6 mos. We have requested her outside records for review. Vulvar Biopsy Reason for biopsy: Encounter Diagnoses Name Primary? ? ? Cutaneous candidiasis Yes ? ? History of vulvar dysplasia The patient was consented for vulvar biopsy. Risks reviewed including bleeding, infection, and hematoma formation. She was placed in dorsal lithotomy position. The area of planned biopsy was prepped with betadine and infiltrated with a total of 1 cc of 0.25% Marcaine. A 3 mm punch biopsy was taken and harvested with forceps and Iris scissors. Hemostasis was obtained with pressure and silver nitrate. Zinc oxide was applied. The patient tolerated the procedure well. Verbal and written instructions were provided. Cutaneous candidiasis 07/06/2018 Last Assessment & Plan: Will treat mons and midline skin with nystatin ointment and intertrigenous areas with powder BID. Also encouraged her to keep tight control of her DMII to avoid recurrence. 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 Biventricular ICD (implantable cardiover ter-defibrillator) in place 05/07/2018 Morbid obesity with BMI of 45.0-49.9, ad ult 02/26/2018 Thyroid nodule 12/10/2016 Pulmonary nodule 01/02/2016 Overview: 12/21/11 in [facility] a 4 mm nodule in the right middle lobe anteriorly along the minor fissure Hypertension 01/02/2014 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, with long-term current use of insulin 01/02/2014 Vitamin D deficiency 01/02/2014 Asthma 01/02/2014 CKD (chronic kidney disease), stage III 01/02/2014 Diabetes mellitus type 2 with neurologic al manifestations 01/02/2014 CHF NYHA class II 11/22/2013 TAQUERIA on CPAP COPD (chronic obstructive pulmonary dise ase) Carpal tunnel syndrome Overview: Bilateral release Anxiety Hyperlipidemia Old MD (myocardial infarction) Overview: Stent 06/2011 NSTEMI ZOEY LAD 01/2013 /history paroxysmal wenkebach/ followed by Dr Martino Resolved Problems Problem Noted Date Resolved Date Finger fracture, left 09/11/2021 03/06/2022 Overview: Mildly displaced and comminuted fracture through the fourth proximal phalanx contacting anterior aspect of proximal IP joint. Diagnosed at [facility] ER 09/10/2021. Patient splinted and outpatient Ortho follow-up pending. Vulvar intraepithelial neoplasia (ANA) grade 3 0 11/26/2016 07/06/2018 Overview: Referred to [facility] oncology because of the extent and size of the lesions Thyromegaly 11/22/2013 05/07/2018 Smoking 07/06/2018 Immunizations Name Administration Dates Next Due COVID-19 (Moderna Booster) 02/27/2023 COVID-19 (Moderna) 03/15/2022, 2,04/12/2021,09/29,09/01/2020 COVID-19 (Moderna) PT Reported 2,08/31/2021,04/12/2021,09/29,09/01/2020 Covid-19 Bivalent (Moderna) 03/15/2022 Flu (Generic) 01/02/2023, 1,03/13/2019,02/26,01/09/2016,08/17/2015,01/05/2015 ,02/01/2014 Flu Vaccine 3 Yrs> Im 03/05/2017 Influenza (> 6 Months) 03/05/2017,2015,01/05/2015,02/18,01/19/2012 Influenza Flu (PT Reported) 02/10/2024,1 05/15/2021,03/05/2017,02/01,03/02/2008,02/18/2007 Influenza Vaccine-preservati ve Free-quadrivalent 4 Years 02/26/2018 Influenza Vaccine-quadrivale nt 4 Years Plus 03/05/2017 Influenza vaccine high dose age 65 and over 01/02/2023,01/03/2021,03/13/2019 PPD-Negative Response(External) 01/03/2000 PPD-RBMG 05/25/2018,12/27/2014 PREVNAR 20 10/13/2022 Pneumoccoccal(Adult) Polysac charide PPSV23 01/07/2017,12/22/2011,03/02/2008 Pneumococcal Conjugate PCV-13 09/30/2021 Pneumovax Adult(PT Reported) 12/19/1996 Shingrix (Recombinant zoster vaccine) 01/02/2023 ,10/18/2022 TD (STATE SUPPLIED FOR ADULT S AND CHILDREN) 10/20/2010,01/01/2000 Td, Adsorbed, Preservative F ree, Adult Use, Lf Unspecified 02/18/2007,01/01/2000 Tdap 12/27/2014 Zostavax 09/26/2015 Zostavax (Patient Reported) 09/26/2015 Family History Medical History Relation Name Comments Diabetes Brother Fibromyalgia Daughter 1 lymphedema, a f ib No Known Problems Daughter 2 no contact Cirrhosis Father No Known Problems Mother Dementia Sister cva No Known Problems Son CA Breast Negative Hx CA Colon Negative Hx CA Ovarian Negative Hx Relation Name Status Comments Brother Alive Daughter 1 Alive Daughter 2 Alive Father Mother Sister Son Alive Social History Tobacco Use Types Packs/Day Years Used Date Smoking Tobacco: Some Days Cigarettes 0.5 Smokeless Tobacco: Never Tobacco Cessation:Ready to Q uit: Not Asked; Counseling Given: Not Answered Comments:< 1/2 ppd Alcohol Use Standard Drinks/Week Comments No 0 (1 standard drink = 0.6 oz pur e alcohol) Sex Assigned at Date Recorded Not on file Job Start Date Occupation Industry Not on file Not on file Not on file Last Filed Vital Signs Vital Sign Reading Time Taken Comments Blood Pressure 133/61 02/04/2024 8:36 AM EDT Pulse 78 02/17/2024 9:12 AM EDT Temperature 36.4 ??C (97.6 ??F) 02/17/2024 9:12 AM ED T Respiratory Rate 15 02/17/2024 9:12 AM EDT Oxygen Saturation 97% 02/04/2024 8:36 AM EDT Inhaled Oxygen Concentration - - Weight 93.9 kg (207 lb) 02/17/2024 9:12 AM EDT Height 149.9 cm (4' 11 ) 02/17/2024 9:12 AM EDT Body Mass Index 41.81 02/17/2024 9:12 AM EDT Plan of Treatment Health Maintenance Due Date Last Done Comments COLON CANCER SCREENING 07/27/2021 2 (External Completion of test per patient (Patient reports normal results)) MAMMOGRAM 04/10/2023 04/10/2022, 10/27, 02/09/2017, Additional history exists Covid-19 Vaccine () 12/27/2023 02/27/2023, 03/15/2022, 03/15/2022, Additional history exists DIABETES/HEART DISEASE: ROBB AL CHOLESTEROL (LDL) 12/27/2023 12/26/2022, 08/29/2022, 11/06/2021, Additional history exists DIABETES: ANNUAL URINE PROTE IN TEST (MICROALBUMIN) 12/27/2023 12/26/2022, 11/06/2021, 09/14/2020, Additional history exists DIABETES: BLOOD SUGAR CONTRO L TEST (HGBA1C) 03/10/2024 12/09/2023, 12/26/2022, 08/29/2022, Additional history exists BMI CHECK/ADVISE 04/27/2024 02/17/2024, 09/2023, 11/17/2023, Additional history exists DEPRESSION SCREENING/FOLLOWUP 04/27/2024 (Completed), 09/01/2022 (Completed), 09/30/2021 (Completed), Additional history exists DEPRESSION SCREEN 07/01/2024 07/02/2023 (Co mpleted), 12/26/2022, 09/01/2022, Additional history exists DIABETES: ANNUAL EYE EXAM 08/10/20242023, 09/25/2022 (External Completion of test per patient (Patient reports normal results)), 11/02/2020, Additional history exists DIABETES: ANNUAL FOOT EXAM 11/16/202411/16, 01/02/2022, 10/30/2017, Additional history exists DTAP/TDAP/TD (2 - Td or Tdap) 12/27/2024, 10/20/2010, 02/18/2007, Additional history exists FALL RISK ASSESSMENT 02/03/2025 02/04/2024, 12/26/2022, 10/13/2022 (Completed), Additional history exists BONE DENSITY SCREENING 02/18/2026 02/19/2024 HEPATITIS C SCREENING Completed 04/17/2016, 016 PNEUMOCOCCAL VACCINE Completed 10/13/2022, 09/30/2021, 01/07/2017, Additional history exists SHINGLES VACCINE Completed 01/02/2023, , 09/26/2015 INFLUENZA Completed 02/10/2024, 11/2022, 03/15/2022, Additional history exists Advance Directives For more information, please contact: [phone] Documents on File Type Date Recorded Patient Manager Hospice Expl anation Health Care Proxy 12/30/2022 8:52 AM HEALTH CARE PROXY Care Teams Form Builder Helper Relationship Specialty Start Date End Date Carmina Varela MD [address] [place] [phone] PCP - General Internal Medicine 11/26/21 Db Martino MD [address] [place] [phone] Specialist Cardiology 09/01/22 Dario Ling [address] [place] [phone] Specialist Pulmonology 09/01/22
--- OUTSIDE RECORDS SUMMARY | 2024-06-09 13:16 | XMS_ITS | Encounter Summary ---
Author Organization [facility] Address [address] [place] [address] Care Team Providers Care Survey Technician Name Role Phone Radha Mccray Primary Care Provider Unavailabl e Nancy Elliott DO Unavailable Unavailable Nancy Elliott DO Primary Care Pro vider Unavailable Shawanda Oliver MD Primary Care Provider Noah Gramajo Primary Care Provider [phone] Carmina Varela MD Primary Care Prov ider Db Martino MD Unavailable Unavailable Dario Ling Unavailable Unavailable Reason for Referral * Non JEFFERY (Routine) - Authorized/Booked Specialty Diagnoses / Procedures Referred By Mitra pelaez Referred To Contact Internal Medicine / Adult Med Procedures REFERRAL TO [facility] Nancy Elliott DO [address] [place] [address] [facility] [place] [address] [place] [address] Referral ID Status Reason Start Date Expiration Date V isits Requested Visits Authorized [id number] Authorized/B ooked 11/23/2018 11/23/2019 1 1 Encounter Details Date Type Department Care Team Description 11/23/2018 Orders Only Adult Medicine [address] [address] Nancy Elliott DO Social History Tobacco Use [...] on filedocumented in this encounter Care Teams Survey Technician Relationship Specialty Start Date End Date Radha Mccray PCP - General 01/28/14 06/25/20 Nancy Elliott DO PCP - General Internal Medicine 06/26/20 08/23/20 Shawanda Oliver MD PCP - General Internal Medicine 08/24/20 10/31/21 Noah Parks [address] [place] [phone] PCP - General Internal Medicine 11/01/21 11/25/21 Carmina Varela MD [address] [place] [phone] PCP - General Internal Medicine 11/26/21 Nancy Elliott DO Internal Medicine 01/28/14 08/31/22 Db Martino MD [address] [place] [address] Specialist Cardiology 09/01/22 Dario Ling [address] [place] [address] Specialist Pulmonology 09/01/22 documented as of this encounter
--- OUTSIDE RECORDS SUMMARY | 2024-06-09 13:16 | XMS_ITS | Encounter Summary ---
Author Organization [facility] Address [address] [place] [address] Care Team Providers Care Appliance Technician Name Role Phone Nancy Elliott DO Unavailable Unavailable Shawanda Oliver MD Primary Care Provider Noah Gramajo Primary Care Provider [phone] Carmina Varela MD Primary Care Prov ider Db Martino MD Unavailable Unavailable Dario Ling Unavailable Unavailable Reason for Referral * Non JEFFERY (Routine) - Authorized/Booked Specialty Diagnoses / Procedures Referred By Contloraine t Referred To Contact Physical Therapy Procedures REFERRAL TO PHYSICAL THERAPY Malu Bell PA [address] [place] [address] External Phys Thrpy Referral ID Status Reason Start Date Expiration Date V isits Requested Visits Authorized [id number] Authorized/B ooked 01/16/2021 1 1 Reason for Visit * Reason Onset Date Comments Back Pain 01/10/2021 Encounter Details Date Type Department Care Team Description 01/10/2021 Telephone Adult Medicine [address] [phone] Shawanda Oliver MD Back Pain Social History Tobacco Use Types Packs/Day Years [...] AM EDT documented as of this encounter Miscellaneous Notes * Telephone Encounter - OTTO Cabrales - 01/16/2021 2:24 PM EDT No scripts on MassPAT. Paper Rx signed.. * Telephone Encounter - Harika Tena M.A. - 01/15/2021 1:21 PM EDT Please see msg below and advise Looks like this has not been completed Masspat in bin * Telephone Encounter - Arias Finnegan C.M.A. - 01/11/2021 12:37 PM EDT Will relay to east pod * Telephone Encounter - OTTO Cabrales - 01/11/2021 12:18 PM EDT Called pt. Discussed case with PCP. Will trial tramadol 50 mg po qd prn. She will try to use sparingly and only for more intense pain. If uses frequently will need PCP f/u to discuss CSC. The risks and benefits of this medication were discussed with the patient. The patient understands the potential side effects and basic interactions of this medication. The patient is asked to call me or my colleagues if they begin to experience any difficulties with this medication. Specifically educated on black box warnings and serotonin syndrome. Will also trial PT. I am remote today. Please pull MassPAT and see if covering provider can review and cosign. This was never sent to covering colleague as a requested. Also, I still do not have MassPAT for review. * Telephone Encounter - Shilo Hutchison R.N - 01/10/2021 2:42 PM EDT Called and spoke with pt. Pt c/o ongoing back pain. Pt had xrays done recently advised degenerativearthritis. Pt was given flexeril at bedtime and tylenol during the day. Cant take nsaids because ofCKD and pt has poorly controlled DM for prednisone. Pt was c/o insomnia flexeril is helping with that. Pt was given lidocaine patches through [facility]. Pt c/o I need to clean my house but my back flares up and I cant clean or in sever pain from cleaning. Addison note does state will consider PT physiatry or chiropactor if not inproving. Pt sts I will do anything now. Pt is lookgin for something else to take durning the day to help with pain. Please review and advise * Telephone Encounter - Stan Rowe - 01/10/2021 2:02 PM EDT Symptoms patient is presenting: BACK PAIN For ALL patients calling to schedule any appointment (routine, sick visit, follow up, consult, etc.) in the outpatient setting please ask the following questions: ?? Do you have fever of higher than 101, sore throat with difficulty swallowing or severe shortnessof breath? NO If YES to any of these above symptoms, send a message to triage and do not book. Red dot. If no, an audio or video visit should be booked. ?? Have you had close contact with someone with Coronavirus in the last 14 days? NO ?? Have you traveled abroad? NO ?? Have you traveled recently to another state outside of [place], [place], [place], [place], [place], [place], [place]? NO o If yes, did you quarantine for 14 days or have a negative covid test? NO If yes to any of the above, patient is not to be scheduled in office until after 14 day quarantine or negative covid test. If pain or injury related was it due to an accident at work or from a motor vehicle accident? NO If yes, gather 3rd libertarian insurance information Date of accident/Injury: How long has patient had these symptoms?: 2 WKS PCP: Shawanda Oliver Payor: [employer] [facility] [employer] / Plan: HMO $0 [place] [id number] / Product Type: HMO [id number] documented in this encounter Plan of Treatment Not on file documented as of this encounter Visit Diagnoses Not on filedocumented in this encounter Care Teams Appliance Technician Relationship Specialty Start Date End Date Shawanda Oliver MD PCP - General Internal Medicine 08/24/20 10/31/21 Noah Parks [address] [place] [address] PCP - General Internal Medicine 11/01/21 11/25/21 Carmina Varela MD [address] [place] [address] PCP - General Internal Medicine 11/26/21 Nancy Elliott, DO Internal Medicine 01/28/14 08/31/22 Db Martino MD [address] [place] [address]10 Specialist Cardiology 09/01/22 Dario Ling [address] [place] [address] 71078 Specialist Pulmonology 09/01/22 documented as of this encounter
--- OUTSIDE RECORDS SUMMARY | 2024-06-09 13:16 | XMS_ITS | Encounter Summary ---
Author Organization [facility] Address [address] [place] [address] Care Team Providers Care Medical Sales Specialist Name Role Phone Radha Mccray Primary Care Provider Unavailabl e Mariamakoruslan Colbarrettcco Nancy DO Unavailable Unavailable [place] Colasacco, Nancy DO Primary Care Pro vider Unavailable Shawanda Oliver MD Primary Care Provider Noah Gramajo Primary Care Provider [phone] Carmina Varela MD Primary Care Prov ider Db Martino MD Unavailable Unavailable Dario Ling Unavailable Unavailable Encounter Details Date Type Department Care Team Description 05/04/2018 Rn Orthopaedic Report Medical Records [address] [place] [address] Abstract, Provider Social History Tobacco Use Types [...] filedocumented in this encounter Care Teams Medical Sales Specialist Relationship Specialty Start Date End Date Radha Mccray PCP - General 01/28/14 06/25/20 Nancy Elliott DO PCP - General Internal Medicine 06/26/20 08/23/20 Shawanda Oliver MD PCP - General Internal Medicine 08/24/20 10/31/21 Noah Parks [address] [place] [address] PCP - General Internal Medicine 11/01/21 11/25/21 Carmina Varela MD [address] [place] [address]16[address] PCP - General Internal Medicine 11/26/21 Nancy Elliott, Internal Medicine 01/28/14 08/31/22 Db Martino MD [address] [place] [address] 46752 Specialist Cardiology 09/01/22 Dario Ling [address] [place] [address] Specialist Pulmonology 09/01/22 documented as of this encounter
--- OUTSIDE RECORDS SUMMARY | 2024-06-09 13:16 | XMS_ITS | Encounter Summary ---
Author Organization [facility] Address [address] [place] [address] Care Team Providers Care Picking Machine Operator Helper Name Role Phone Radha Mccray Primary Care Provider Unavailabl e Mariamakoruslan Colasacco Nancy DO Unavailable Unavailable [place] Colasacco, Nancy DO Primary Care Pro vider Unavailable Shawanda Oliver MD Primary Care Provider Noah Gramajo Primary Care Provider [phone] Carmina Varela MD Primary Care Prov ider Db Martino MD Unavailable Unavailable Dario Ling Unavailable Unavailable Encounter Details Date Type Department Care Team Description 04/15/2018 Bevel Polisher Report Medical Records [address] [place] [address] Abstract, Provider Social History Tobacco Use Types [...] on filedocumented in this encounter Care Teams Picking Machine Operator Helper Relationship Specialty Start Date End Date Radha Mccray PCP - General 01/28/14 06/25/20 Nancy Elliott DO PCP - General Internal Medicine 06/26/20 08/23/20 Shawanda Oliver MD PCP - General Internal Medicine 08/24/20 10/31/21 Noah Parks [address] [place] [address] PCP - General Internal Medicine 11/01/21 11/25/21 Carmina Varela MD [address] [place] [address] 43491 PCP - General Internal Medicine 11/26/21 Nancy Elliott, Internal Medicine 01/28/14 08/31/22 Db Martino MD [address] [place] [address]115 Specialist Cardiology 09/01/22 Dario Ling [address] [place] [address] 76898 Specialist Pulmonology 09/01/22 documented as of this encounter
--- OUTSIDE RECORDS SUMMARY | 2024-06-09 13:16 | XMS_ITS | Encounter Summary ---
Author Organization [facility] Address [address] [place] [address] Care Team Providers Care Residential Building Inspector Name Role Phone Shazia Gerrydexter Primary Care Provider Unavailabl e Mariamakoruslan Colbarrettcco Nancy DO Unavailable Unavailable [place] Colasacco, Nancy DO Primary Care Pro vider Unavailable Shawanda Oliver MD Primary Care Provider Noah Gramajo Primary Care Provider [phone] Carmina Varela MD Primary Care Prov ider Db Martino MD Unavailable Unavailable Dario Ling Unavailable Unavailable Reason for Visit * Reason Onset Date Comments Cough 11/24/2018 Wheezing 11/24/2018 Encounter Details Date Type Department Care Team Description 11/24/2018 Telephone Adult Medicine [address] [address] Lor Palencia PA-C Cough; Wheezing Social History Tobacco Use Types Packs/Day Years [...] Telephone Encounter - Kathy Zavala R.N. - 11/24/2018 3:12 PM EDT Pt was seen 11/10 for COPD exacerbation and was advised to f/u in 2 weeks C/O chest wall pain with deep breath and cough, denies SOB at rest but is having CLEMENT, , able to speak in full sentences and has no audible wheezing, using combivent as directed with no relief, cough is productive for white Sputum, denies fever (has not taken temp) able to take PO with no difficulty, denies N/V has had diarrhea , Advised homecare following the cough Protocol. RN reinforced telephone consultation and advice. Reviewed with the patient the signs and symptoms to watch for that would require immediate attention. If symptoms change, worsen or increase in intensity, to call back immediately. Appointment for f/u with dr Nancy Mckeon 11/30 at 9:30 * Telephone Encounter - Giuliana Silva - 11/24/2018 2:47 PM EDT Symptoms patient is presenting: Patient seen Talha Horowitz on 11/10/18 for a cough. Patient is still having same symptoms and would like a call back regarding this. If pain or injury related was it due to an accident at work or from a motor vehicle accident? NO If yes, gather 3rd republican insurance information Date of accident/Injury: How long has patient had these symptoms?: 2 weeks PCP: Nancy Mckeon Payor: [employer] FFS / Plan: [facility] / Product Type: MEDICAID RISK documented in this encounter Plan of Treatment Not on file documented as of this encounter Visit Diagnoses Not on filedocumented in this encounter Care Teams Residential Building Inspector Relationship Specialty Start Date End Date Radha Mccray PCP - General 01/28/14 06/25/20 Nancy Elliott DO PCP - General Internal Medicine 06/26/20 08/23/20 Shawanda Oliver MD PCP - General Internal Medicine 08/24/20 10/31/21 Noah Parks [address] [place] [address] PCP - General Internal Medicine 11/01/21 11/25/21 Carmina Varela MD [address] [place] [address] PCP - General Internal Medicine 11/26/21 Nancy Elliott, DO Internal Medicine 01/28/14 08/31/22 Db Martino MD [address] [place] [address] Specialist Cardiology 09/01/22 Dario Ling [address] [place] [address] Specialist Pulmonology 09/01/22 documented as of this encounter
--- OUTSIDE RECORDS SUMMARY | 2024-06-09 13:16 | XMS_ITS | Encounter Summary ---
Author Organization [facility] Address [address] [place] [address] Care Team Providers Care Tax Adjuster Name Role Phone Radha Mccray Primary Care Provider Unavailabl e Nancy Elliott DO Unavailable Unavailable Nancy Elliott DO Primary Care Pro vider Unavailable Shawanda Oliver MD Primary Care Provider Noah Gramajo Primary Care Provider [phone] Carmina Varela MD Primary Care Prov ider Db Martino MD Unavailable Unavailable Dario Ling Unavailable Unavailable Reason for Referral * Non JEFFERY (Routine) - Authorized/Booked Specialty Diagnoses / Procedures Referred By Mitra pelaez Referred To Contact Endocrinology Procedures REFERRAL TO ENDOCRINOLOGY Nancy Elliott DO [address] [place] [address] Endo/[place] [address] [place] [id number] Referral ID Status Reason Start Date Expiration Date V isits Requested Visits Authorized [id number] Authorized/B ooked 02/15/2019 02/15/2020 1 1 Encounter Details Date Type Department Care Team Description 02/15/2019 Orders Only Adult Medicine [address] [address] Nancy Elliott DO Social History Tobacco Use [...] on filedocumented in this encounter Care Teams Tax Adjuster Relationship Specialty Start Date End Date Radha Mccray PCP - General 01/28/14 06/25/20 Nancy Elliott DO PCP - General Internal Medicine 06/26/20 08/23/20 Shawanda Oliver MD PCP - General Internal Medicine 08/24/20 10/31/21 Noah Parks [address] [place] [address] PCP - General Internal Medicine 11/01/21 11/25/21 Carmina Varela MD [address] [place] [address]19 PCP - General Internal Medicine 11/26/21 Nancy Elliott DO Internal Medicine 01/28/14 08/31/22 Db Martino MD [address] [place] [address]8700 Specialist Cardiology 09/01/22 Dario Ling [address] [place] [address] Specialist Pulmonology 09/01/22 documented as of this encounter
--- OUTSIDE RECORDS SUMMARY | 2024-06-09 13:16 | XMS_ITS | Encounter Summary ---
Author Organization [facility] Address [address] [place] [address] Care Team Providers Care Hydrate Control Tender Name Role Phone Radha Mccray Primary Care Provider Unavailabl e [place]rakoruslan Colasacco, Nancy DO Unavailable Unavailable [place] Colasacco, Nancy DO Primary Care Pro vider Unavailable Shawanda Oliver MD Primary Care Provider Noah Gramajo Primary Care Provider [phone] Carmina Varela MD Primary Care Prov ider Db Martino MD Unavailable Unavailable Dario Ling Unavailable Unavailable Encounter Details Date Type Department Care Team Description 12/15/2017 Hospital Medical Records [address] [place] [address] Sherri Burrell Social History Tobacco Use Types [...] on filedocumented in this encounter Care Teams Hydrate Control Tender Relationship Specialty Start Date End Date Radha Mccray PCP - General 01/28/14 06/25/20 Nancy Elliott DO PCP - General Internal Medicine 06/26/20 08/23/20 Shawanda Oliver MD PCP - General Internal Medicine 08/24/20 10/31/21 Noah Parks [address] [place] [address] PCP - General Internal Medicine 11/01/21 11/25/21 Carmina Varela MD [address] [place] [address]27 PCP - General Internal Medicine 11/26/21 Nancy Elliott, DO Internal Medicine 01/28/14 08/31/22 Db Martino MD [address] [place] [address]47 Specialist Cardiology 09/01/22 Dario Ling [address] [place] [address]66 Specialist Pulmonology 09/01/22 documented as of this encounter
--- OUTSIDE RECORDS SUMMARY | 2024-06-09 13:16 | XMS_ITS | Encounter Summary ---
Author Organization [facility] Address [address] [place] [address] Care Team Providers Care Asphalt Surface Heater Operator Name Role Phone Radha Mccray Primary Care Provider Unavailabl e Krakowifranklin Colasacco, Nancy DO Unavailable Unavailable [place] Colasacco, Nancy DO Primary Care Pro vider Unavailable Shawanda Oliver MD Primary Care Provider Noah Gramajo Primary Care Provider [phone] Carmina Varela MD Primary Care Prov ider Db Martino MD Unavailable Unavailable Draio Ling Unavailable Unavailable Encounter Details Date Type Department Care Team Description 09/15/2016 SCAN Medical Records [address] [place] [address] Abstract, Provider Social History Tobacco Use Types [...] Date/Time Associated Diagnosis Comments OUTSIDE LAB Routine 08/31/2016 documented in this encounter Results * OUTSIDE LAB (08/31/2016) Provider Abstract LAB documented in this encounter Visit Diagnoses Not on filedocumented in this encounter Care Teams Asphalt Surface Heater Operator Relationship Specialty Start Date End Date Shazia Gerrydexter PCP - General 01/28/14 06/25/20 Nancy Elliott DO PCP - General Internal Medicine 06/26/20 08/23/20 Shawanda Oliver MD PCP - General Internal Medicine 08/24/20 10/31/21 Noah Parks [address] [place] [address] PCP - General Internal Medicine 11/01/21 11/25/21 Carmina Varela MD [address] [place] [address]65 PCP - General Internal Medicine 11/26/21 Nancy Elliott DO Internal Medicine 01/28/14 08/31/22 Db Martino MD [address] [place] [address]70 Specialist Cardiology 09/01/22 Dario Ling [address] [place] [address]997 Specialist Pulmonology 09/01/22 documented as of this encounter
--- OUTSIDE RECORDS SUMMARY | 2024-06-09 13:16 | XMS_ITS | Encounter Summary ---
Author Organization [facility] Address [address] [place] [address] Care Team Providers Care Chief Underwriter Name Role Phone Carmina Varela MD Primary Care Prov ider Db Martino MD Unavailable Unavailable Dario Ling Unavailable Unavailable Encounter Details Date Type Department Care Team Description 02/04/2024 Hospital Medical Records [address] [place], [place] [id number] [place] [address] Social History Tobacco Use Types Packs/Day Years [...] on filedocumented in this encounter Care Teams Chief Underwriter Relationship Specialty Start Date End Date Carmina Varela MD [address] [place], [place] [phone] PCP - General Internal Medicine 11/26/21 Db Martino MD [address] [place], [place] [phone] Specialist Cardiology 09/01/22 Dario Ling [address] [place] [address] Specialist Pulmonology 09/01/22 documented as of this encounter
--- OUTSIDE RECORDS SUMMARY | 2024-06-09 13:16 | XMS_ITS | Encounter Summary ---
Author Organization [facility] Address [address] [place] [address] Care Team Providers Care Mechanical Door Repairer Name Role Phone Radha Mccray Primary Care Provider Unavailabl e Stephon Elliottabela DO Unavailable Unavailable Mariamakoraviak Micko Nancy DO Primary Care Pro vider Unavailable Shawanda Oliver MD Primary Care Provider Noah Gramajo Primary Care Provider [phone] Carmina Varela MD Primary Care Prov ider Db Martino MD Unavailable Unavailable Dario Ling Unavailable Unavailable Encounter Details Date Type Department Care Team Description 03/30/2018 Hospital Medical Records [address] [place] [address] Social History Tobacco Use Types Packs/Day Years [...] on filedocumented in this encounter Care Teams Mechanical Door Repairer Relationship Specialty Start Date End Date Radha Mccray PCP - General 01/28/14 06/25/20 Nancy Elliott DO PCP - General Internal Medicine 06/26/20 08/23/20 Shawanda Oliver MD PCP - General Internal Medicine 08/24/20 10/31/21 Noah Parks [address] [place] [address] PCP - General Internal Medicine 11/01/21 11/25/21 Carmina Varela MD [address] [place] [address]35 PCP - General Internal Medicine 11/26/21 Nancy Elliott, Internal Medicine 01/28/14 08/31/22 Db Martino MD [address] [place] [address]12 Specialist Cardiology 09/01/22 Dario Ling [address] [place] [address]35 Specialist Pulmonology 09/01/22 documented as of this encounter
--- OUTSIDE RECORDS SUMMARY | 2024-06-09 13:16 | XMS_ITS | Encounter Summary ---
Author Organization [facility] Address [address] [place] [address] Care Team Providers Care Certified Home Health Aide Name Role Phone Radha Mccray Primary Care Provider Unavailabl e Nancy Elliott DO Unavailable Unavailable Nancy Elliott DO Primary Care Pro vider Unavailable Shawanda Oliver MD Primary Care Provider Noah Gramajo Primary Care Provider [phone] Carmnia Varela MD Primary Care Prov ider Db Martino MD Unavailable Unavailable Dario Ling Unavailable Unavailable Reason for Visit * Reason Onset Date Comments hospital follow up 12/17/2017 [facility] hosp ital notes request discharged on 12-17-17 Encounter Details Date Type Department Care Team Description 12/17/2017 Telephone Adult Medicine [address] [address] Nancy Elliott DO hospital follow up ([facility] hospital notes request discharged on 12-17-17) Social History Tobacco Use Types Packs/Day Years [...] encounter Miscellaneous Notes * Telephone Encounter - Cristela Woodward - 12/17/2017 10:21 AM EDT ER follow-up appointment booked TBA If ER or UC follow up, can be booked with APC or MD. If hospital admission follow up MUST be booked with a physician Appointment time: TBA Provider visit is scheduled with: TBA Hospital/ center patient was treated at: [facility] Date of visit: 12-02-17 Was this only an ER/UC visit or was the patient admitted to the hospital? Admitted to hospital If patient was admitted what was the date of discharge? 12-15-17 Reason/diagnosis for visit or stay: heart bypass Was visit or stay related to an injury? NO If yes, what was the date of injury (DOI)? N/A If yes, was the injury due to N/A Tests performed: Lab: YES X-ray: YES EKG: YES Other tests. If yes, what?; unknown documented in this encounter Plan of Treatment Not on file documented as of this encounter Visit Diagnoses Not on filedocumented in this encounter Care Teams Certified Home Health Aide Relationship Specialty Start Date End Date Radha Mccray PCP - General 01/28/14 06/25/20 Nancy Elliott DO PCP - General Internal Medicine 06/26/20 08/23/20 Shawanda Oliver MD PCP - General Internal Medicine 08/24/20 10/31/21 Noah Parks [address] [place] [address] PCP - General Internal Medicine 11/01/21 11/25/21 Carmina Varela MD [address] [place] [address] PCP - General Internal Medicine 11/26/21 Nancy Elliott, DO Internal Medicine 01/28/14 08/31/22 Db Martino MD [address] [place], [place] [phone] Specialist Cardiology 09/01/22 Dario Ling [address] [place] [address] Specialist Pulmonology 09/01/22 documented as of this encounter
--- OUTSIDE RECORDS SUMMARY | 2024-06-09 13:16 | XMS_ITS | Encounter Summary ---
Author Organization [facility] Address [address] [place] [address] Care Team Providers Care Sales Leader Name Role Phone Nancy Elliott DO Unavailable Unavailable Shawanda Oliver MD Primary Care Provider Noah Gramajo Primary Care Provider [phone] Carmina Varela MD Primary Care Prov ider Db Martino MD Unavailable Unavailable Dario Ling Unavailable Unavailable Encounter Details Date Type Department Care Team Description 01/09/2021 De Ionizer Operator Report Medical Records [address] [place] [address] Abstract, Provider Social History Tobacco Use Types [...] filedocumented in this encounter Care Teams Sales Leader Relationship Specialty Start Date End Date Shawanda Oliver MD PCP - General Internal Medicine 08/24/20 10/31/21 Noah Parks [address] [place] [address] PCP - General Internal Medicine 11/01/21 11/25/21 Carmina Varela MD [address] [place] [address] PCP - General Internal Medicine 11/26/21 Nancy Elliott, DO Internal Medicine 01/28/14 08/31/22 Db Martino MD [address] [place] [address] Specialist Cardiology 09/01/22 Dario Ling [address] [place] [phone] Specialist Pulmonology 09/01/22 documented as of this encounter
--- OUTSIDE RECORDS SUMMARY | 2024-06-09 13:16 | XMS_ITS | Encounter Summary ---
Author Organization [facility] Address [address] [place] [address] Care Team Providers Care Batch Plant Supervisor Name Role Phone Carmina Varela MD Primary Care Prov ider Db Martino MD Unavailable Unavailable Dario Ling Unavailable Unavailable Encounter Details Date Type Department Care Team Description 02/03/2023 Test Developer Report Medical Records [address] [place] [address] Db Martino MD Social History Tobacco Use [...] on filedocumented in this encounter Care Teams Batch Plant Supervisor Relationship Specialty Start Date End Date Cramina Varela MD [address] [place] [phone] PCP - General Internal Medicine 11/26/21 Db Martino MD [address] [place], [place] [phone] Specialist Cardiology 09/01/22 Dario Ling [address] [place] [address] Specialist Pulmonology 09/01/22 documented as of this encounter
--- OUTSIDE RECORDS SUMMARY | 2024-06-09 13:16 | XMS_ITS | Encounter Summary ---
Author Organization [facility] Address [address] [place] [address] Care Team Providers Care Gusset Maker Name Role Phone JarenRadha puentes Primary Care Provider Unavailabl e Nancy Elliott DO Unavailable Unavailable Ariadne Bartono Nancy DO Primary Care Pro vider Unavailable Shawanda Oliver MD Primary Care Provider Noah Gramajo Primary Care Provider [phone] Carmina Varela MD Primary Care Prov ider Db Martino MD Unavailable Unavailable Dario Ling Unavailable Unavailable Encounter Details Date Type Department Care Team Description 02/04/2019 Orders Only Medical Records [address] [place] [address] Nancy Elliott, DO Social History Tobacco Use Types Packs/Day [...] Name Priority Date/Time Associated Diagnosis Comments OUTSIDE ULTRASOUND Routine 02/04/2019 documented in this encounter Results * OUTSIDE ULTRASOUND (02/04/2019) Nancy Valdivia DO RADIOLOGY documented in this encounter Visit Diagnoses Not on filedocumented in this encounter Care Teams Gusset Maker Relationship Specialty Start Date End Date Radha Mccray PCP - General 01/28/14 06/25/20 Nancy Elliott DO PCP - General Internal Medicine 06/26/20 08/23/20 Shawanda Oliver MD PCP - General Internal Medicine 08/24/20 10/31/21 Noah Parks [address] [place] [address] PCP - General Internal Medicine 11/01/21 11/25/21 Carmina Varela MD [address] [place] [address] PCP - General Internal Medicine 11/26/21 Nancy Elliott DO Internal Medicine 01/28/14 08/31/22 Db Martino MD [address] [place] [address] Specialist Cardiology 09/01/22 Dario Ling [address] [place] [address] Specialist Pulmonology 09/01/22 documented as of this encounter
--- OUTSIDE RECORDS SUMMARY | 2024-06-09 13:16 | XMS_ITS | Encounter Summary ---
Author Organization [facility] Address [address] [place] [address] Care Team Providers Care Topographical Engineer Name Role Phone Nancy Elliott DO Unavailable Unavailable Shawanda Oliver MD Primary Care Provider Noah Gramajo Primary Care Provider [phone] Carmina Varela MD Primary Care Prov ider Db Martino MD Unavailable Unavailable Dario Ling Unavailable Unavailable Encounter Details Date Type Department Care Team Description 09/25/2021 Hvac Lead Report Medical Records [address] [place] [address] Lacey Valle MD Social History Tobacco Use Types Packs/Day [...] on filedocumented in this encounter Care Teams Topographical Engineer Relationship Specialty Start Date End Date Shawanda Oliver MD PCP - General Internal Medicine 08/24/20 10/31/21 Noah Parks [address] [place], [place] [phone] PCP - General Internal Medicine 11/01/21 11/25/21 Carmina Varela MD [address] [place] [address] PCP - General Internal Medicine 11/26/21 Nancy Elliott, DO Internal Medicine 01/28/14 08/31/22 Db Martino MD [address] [place] [address] Specialist Cardiology 09/01/22 Dario Ling [address] [place] [address] Specialist Pulmonology 09/01/22 documented as of this encounter
--- OUTSIDE RECORDS SUMMARY | 2024-06-09 13:16 | XMS_ITS | Encounter Summary ---
Author Organization [facility] Address [address] [place] [address] Care Team Providers Care Customer Success Director Name Role Phone Radha Mccray Primary Care Provider Unavailabl e Ariadne Colbarbarao Nancy DO Unavailable Unavailable Mariamakowiak Colasacco Nancy DO Primary Care Pro vider Unavailable Shawanda Oliver MD Primary Care Provider Noah Gramajo Primary Care Provider [phone] Carmina Varela MD Primary Care Prov ider Db Martino MD Unavailable Unavailable Dario Ling Unavailable Unavailable Encounter Details Date Type Department Care Team Description 12/10/2017 Hospital Medical Records [address] [place] [address] Smita Russell Np Social History Tobacco Use Types Packs/Day Years [...] on filedocumented in this encounter Care Teams Customer Success Director Relationship Specialty Start Date End Date Radha Mccray PCP - General 01/28/14 06/25/20 Nancy Elliott DO PCP - General Internal Medicine 06/26/20 08/23/20 Shawanda Oliver MD PCP - General Internal Medicine 08/24/20 10/31/21 Noah Parks [address] [place] [address] PCP - General Internal Medicine 11/01/21 11/25/21 Carmina Varela MD [address] [place] [address] PCP - General Internal Medicine 11/26/21 Nancy Elliott, DO Internal Medicine 01/28/14 08/31/22 Db Martino MD [address] [place] [address] Specialist Cardiology 09/01/22 Dario Ling [address] [place] [address] Specialist Pulmonology 09/01/22 documented as of this encounter
--- OUTSIDE RECORDS SUMMARY | 2024-06-09 13:16 | XMS_ITS | Encounter Summary ---
Author Organization [facility] Address [address] [place] [address] Care Team Providers Care Licensed Electrician Name Role Phone Radha Mccray Primary Care Provider Unavailabl e Nancy Elliott DO Unavailable Unavailable Nancy Elliott DO Primary Care Pro vider Unavailable Shawanda Oliver MD Primary Care Provider Noah Gramajo Primary Care Provider [phone] Carmina Varela MD Primary Care Prov ider Db Martino MD Unavailable Unavailable Dario Ling Unavailable Unavailable Reason for Referral * EXTERNAL (Priority) - Authorized/Booked Specialty Diagnoses / Procedures Referred By Contact Referred To Contact INTERVENTIONAL RADIOLOGY Procedures REFERRAL TO INTERVENTIONAL RADIOLOGY Nancy Elliott DO [address] [place], [place] [id number] [place] [address] Referral ID Status Reason Start Date Expiration Date V isits Requested Visits Authorized SEE REVIEW 01/19/2019 Authorized/ Booked 01/19/2019 1 1 Encounter Details Date Type Department Care Team Description 01/19/2019 Orders Only Adult Medicine [address] [address] Nancy Elliott DO Social History Tobacco Use [...] on filedocumented in this encounter Care Teams Licensed Electrician Relationship Specialty Start Date End Date Radha Mccray PCP - General 01/28/14 06/25/20 Nancy Elliott DO PCP - General Internal Medicine 06/26/20 08/23/20 Shawanda Oliver MD PCP - General Internal Medicine 08/24/20 10/31/21 Noah Parks [address] [place] [address] PCP - General Internal Medicine 11/01/21 11/25/21 Carmina Varela MD [address] [place] [address] PCP - General Internal Medicine 11/26/21 Nancy Elliott DO Internal Medicine 01/28/14 08/31/22 Db Martino MD [address] [place] [address] Specialist Cardiology 09/01/22 Dario Ling [address] [place] [address] Specialist Pulmonology 09/01/22 documented as of this encounter
--- OUTSIDE RECORDS SUMMARY | 2024-06-09 13:16 | XMS_ITS | Encounter Summary ---
Author Organization [facility] Address [address] [place] [address] Care Team Providers Care Jacquard Card Cutter Name Role Phone Radha Mccray Primary Care Provider Unavailabl e Krakoruslan Colasacco Nancy DO Unavailable Unavailable [place] Colasacco, Nancy DO Primary Care Pro vider Unavailable Shawanda Oliver MD Primary Care Provider Noah Gramajo Primary Care Provider [phone] Carmina Varela MD Primary Care Prov ider Db Martino MD Unavailable Unavailable Dario Ling Unavailable Unavailable Encounter Details Date Type Department Care Team Description 12/01/2017 Hospital Medical Records [address] [place] [address] Brandon Mack Social History Tobacco Use Types Packs/Day Years [...] on filedocumented in this encounter Care Teams Jacquard Card Cutter Relationship Specialty Start Date End Date Radha Mccray PCP - General 01/28/14 06/25/20 Nancy Elliott DO PCP - General Internal Medicine 06/26/20 08/23/20 Shawanda Oliver MD PCP - General Internal Medicine 08/24/20 10/31/21 Noah Parks [address] [place] [address] PCP - General Internal Medicine 11/01/21 11/25/21 Carmina Varela MD [address] [place] [address] PCP - General Internal Medicine 11/26/21 Nancy Elliott, Internal Medicine 01/28/14 08/31/22 Db Martino MD [address] [place] [address] Specialist Cardiology 09/01/22 Dario Ling [address] [place] [address] Specialist Pulmonology 09/01/22 documented as of this encounter
--- OUTSIDE RECORDS SUMMARY | 2024-06-09 13:16 | XMS_ITS | Encounter Summary ---
Author Organization [facility] Address [address] [place] [address] Care Team Providers Care Information Technology Security Analyst Name Role Phone Carmina Varela MD Primary Care Prov ider Db Martino MD Unavailable Unavailable Dario Ling Unavailable Unavailable Encounter Details Date Type Department Care Team Description 03/24/2023 Hospital Medical Records [address] [place] [address] Brandon Mack Social History Tobacco Use Types [...] on filedocumented in this encounter Care Teams Information Technology Security Analyst Relationship Specialty Start Date End Date Carmina Varela MD [address] [place] [phone] PCP - General Internal Medicine 11/26/21 Db Martino MD [address] [place] [address] Specialist Cardiology 09/01/22 Dario Ling [address] [place] [address] Specialist Pulmonology 09/01/22 documented as of this encounter
--- OUTSIDE RECORDS SUMMARY | 2024-06-09 13:16 | XMS_ITS | Encounter Summary ---
Author Organization [facility] Address [address] [place] [address] Care Team Providers Care Rate And Cost Analyst Name Role Phone Nancy Elliott DO Unavailable Unavailable Carmina Varela MD Primary Care Prov ider Db Martino MD Unavailable Unavailable Dario Ling Unavailable Unavailable Encounter Details Date Type Department Care Team Description 05/21/2022 Packaging Design Engineer Report Medical Records [address] [place] [address] Dario Ling Social History Tobacco Use Types [...] Recorded In the last 10 days, have yo u been in contact with someone who was confirmed or suspected to have Coronavirus/COVID-19? No / Unsure 05/15/2022 8:31 AM EST documented as of this encounter Plan of Treatment Not on file documented as of this encounter Visit Diagnoses Not on filedocumented in this encounter Care Teams Rate And Cost Analyst Relationship Specialty Start Date End Date Carmina Varela MD [address] [place] [address] PCP - General Internal Medicine 11/26/21 Nancy Elliott, DO Internal Medicine 01/28/14 08/31/22 Db Martino MD [address] [place] [address] Specialist Cardiology 09/01/22 Dario Ling [address] [place], [place] [phone] Specialist Pulmonology 09/01/22 documented as of this encounter
--- OUTSIDE RECORDS SUMMARY | 2024-06-09 13:16 | XMS_ITS | Encounter Summary ---
Author Organization [facility] Address [address] [place] [address] Care Team Providers Care Tripe Finisher Name Role Phone JarenRadha puentes Primary Care Provider Unavailabl e Stephon Elliottabela DO Unavailable Unavailable Ariadne Bartono Nancy DO Primary Care Pro vider Unavailable Shawanda Oliver MD Primary Care Provider Noah Gramajo Primary Care Provider [phone] Carmina aVrela MD Primary Care Prov ider Db Martino MD Unavailable Unavailable Dario Ling Unavailable Unavailable Encounter Details Date Type Department Care Team Description 04/12/2020 Telephone Adult Medicine [address] [address] Nancy Elliott DO Social History Tobacco Use [...] have Coronavirus / COVID-19? No / Unsure 04/11/2020 1:26 PM EST documented as of this encounter Miscellaneous Notes * Telephone Encounter - Kathy Zavala R.N. - 04/18/2020 11:07 AM EST Pt has not answered calls unable to traige for symtoms * Telephone Encounter - Kathy Zavala R.N. - 04/12/2020 4:37 PM EST Pt had urine done and was positive for bacteria. does she have any symptoms ? I left a message for the patient to return my call. documented in this encounter Plan of Treatment Not on file documented as of this encounter Visit Diagnoses Not on filedocumented in this encounter Care Teams Tripe Finisher Relationship Specialty Start Date End Date Radha Mccray PCP - General 01/28/14 06/25/20 Nancy Elliott DO PCP - General Internal Medicine 06/26/20 08/23/20 Shawanda Oliver MD PCP - General Internal Medicine 08/24/20 10/31/21 Noah Parks [address] [place] [address] PCP - General Internal Medicine 11/01/21 11/25/21 Carmina Varela MD [address] [place] [address] PCP - General Internal Medicine 11/26/21 Nancy Elliott DO Internal Medicine 01/28/14 08/31/22 Db Martino MD [address] [place] [address] Specialist Cardiology 09/01/22 Dario Ling [address] [place] [address] Specialist Pulmonology 09/01/22 documented as of this encounter
--- OUTSIDE RECORDS SUMMARY | 2024-06-09 13:16 | XMS_ITS | Encounter Summary ---
Author Organization [facility] Address [address] [place] [address] Care Team Providers Care Research Associate Policy Name Role Phone Nancy Elliott DO Unavailable Unavailable Shawanda Oliver MD Primary Care Provider Noah Gramajo Primary Care Provider [phone] Carmina Varela MD Primary Care Prov ider Db Martino MD Unavailable Unavailable Dario Ling Unavailable Unavailable Encounter Details Date Type Department Care Team Description 09/11/2021 Tearoom Host Report Medical Records [address] [place] [address] Lacey Valle MD Social History Tobacco Use [...] on filedocumented in this encounter Care Teams Research Associate Policy Relationship Specialty Start Date End Date Shawanda Oliver MD PCP - General Internal Medicine 08/24/20 10/31/21 Noah Parks [address] [place], [place] [phone] PCP - General Internal Medicine 11/01/21 11/25/21 Carmina Varela MD [address] [place] [address] PCP - General Internal Medicine 11/26/21 Nancy Elliott, DO Internal Medicine 01/28/14 08/31/22 Db Martino MD [address] [place] [address] Specialist Cardiology 09/01/22 Dario Ling [address] [place] [address] Specialist Pulmonology 09/01/22 documented as of this encounter
--- OUTSIDE RECORDS SUMMARY | 2024-06-09 13:16 | XMS_ITS | Encounter Summary ---
Author Organization [facility] Address [address] [place] [address] Care Team Providers Care Tire Maintenance Technician Name Role Phone Rahda Mccray Primary Care Provider Unavailabl e Ariadne Colbarbarao Nancy DO Unavailable Unavailable Krakowiak Colasacco Nancy DO Primary Care Pro vider Unavailable Shawanda Oliver MD Primary Care Provider Noah Gramajo Primary Care Provider [phone] Carmina Varela MD Primary Care Prov ider Db Martino MD Unavailable Unavailable Dario Ling Unavailable Unavailable Encounter Details Date Type Department Care Team Description 12/01/2017 Night Triage Doc Medical Records [address] [place] [address] Abstract, Provider Social History Tobacco Use Types [...] on filedocumented in this encounter Care Teams Tire Maintenance Technician Relationship Specialty Start Date End Date Radha Mccray PCP - General 01/28/14 06/25/20 Nancy Elliott DO PCP - General Internal Medicine 06/26/20 08/23/20 Shawanda Oliver MD PCP - General Internal Medicine 08/24/20 10/31/21 Noah Parks [address] [place] [address] PCP - General Internal Medicine 11/01/21 11/25/21 Carmina Varela MD [address] [place] [address] PCP - General Internal Medicine 11/26/21 Nancy Elliott, Internal Medicine 01/28/14 08/31/22 Db Martino MD [address] [place] [address] Specialist Cardiology 09/01/22 Dario Ling [address] [place] [address] Specialist Pulmonology 09/01/22 documented as of this encounter
--- OUTSIDE RECORDS SUMMARY | 2024-06-09 13:16 | XMS_ITS | Encounter Summary ---
Author Organization [facility] Address [address] [place] [address] Care Team Providers Care Heading And Priming Tool Setter Name Role Phone Radha Mccray Primary Care Provider Unavailabl e Mariamakoruslan Colbarbarao Nancy DO Unavailable Unavailable Krak[place]iak Colasacco Nancy DO Primary Care Pro vider Unavailable Shawanda Oliver MD Primary Care Provider Noah Gramajo Primary Care Provider [phone] Carmina Varela MD Primary Care Prov ider Db Martino MD Unavailable Unavailable Dario Ling Unavailable Unavailable Encounter Details Date Type Department Care Team Description 04/16/2018 Hospital Medical Records [address] [place] [address] Abstract, Provider Social History Tobacco Use Types [...] on filedocumented in this encounter Care Teams Heading And Priming Tool Setter Relationship Specialty Start Date End Date Radha Mccray PCP - General 01/28/14 06/25/20 Nancy Elliott DO PCP - General Internal Medicine 06/26/20 08/23/20 Shawanda Oliver MD PCP - General Internal Medicine 08/24/20 10/31/21 Noah Parks [address] [place] [address] PCP - General Internal Medicine 11/01/21 11/25/21 Carmina Varela MD [address] [place] [address] PCP - General Internal Medicine 11/26/21 Nancy Elliott, Internal Medicine 01/28/14 08/31/22 Db Martino MD [address] [place] [address] Specialist Cardiology 09/01/22 Dario Ling [address] [place] [address] Specialist Pulmonology 09/01/22 documented as of this encounter
--- OUTSIDE RECORDS SUMMARY | 2024-06-09 13:16 | XMS_ITS | Encounter Summary ---
Author Organization [facility] Address [address] [place] [address] Care Team Providers Care Route Salesman Name Role Phone Shazia Gerrydexter Primary Care Provider Unavailabl e Nancy Elliott DO Unavailable Unavailable Nancy Elliott DO Primary Care Pro vider Unavailable Shawanda Oliver MD Primary Care Provider Noah Gramajo Primary Care Provider [phone] Carmina Varela MD Primary Care Prov ider Db Martino MD Unavailable Unavailable Dario Ling Unavailable Unavailable Reason for Visit * Reason Onset Date Comments REFERRAL 11/15/2018 Ast[facility]/ [facility]/ [facility] Encounter Details Date Type Department Care Team Description 11/15/2018 Telephone Respiratory and Diabetes Medicaid/ACO Pharmacist [address] [place] [address] Nancy Elliott DO REFERRAL (Asthma/ COPD/ Diabetes Clinic ) Social History Tobacco Use Types Packs/Day Years [...] Telephone Encounter - Nancy Valdivia DO - 11/23/2018 6:54 AM EDT Ref placed * Telephone Encounter - Cadence Gillespie - 11/15/2018 8:26 AM EDT Good Morning, Please consider referring this patient to the [facility] Asthma/ COPD/ Diabetes Clinic located in [place] for further management of their diabetes. Thank you. documented in this encounter Plan of Treatment Not on file documented as of this encounter Visit Diagnoses Not on filedocumented in this encounter Care Teams Route Salesman Relationship Specialty Start Date End Date Radha Mccray PCP - General 01/28/14 06/25/20 Nancy Elliott DO PCP - General Internal Medicine 06/26/20 08/23/20 Shawanda Oliver MD PCP - General Internal Medicine 08/24/20 10/31/21 Noah Parks [address] [place] [address] PCP - General Internal Medicine 11/01/21 11/25/21 Carmina Varela MD [address] [place] [address] PCP - General Internal Medicine 11/26/21 Nancy Elliott DO Internal Medicine 01/28/14 08/31/22 Db Martino MD [address] [place] [address] Specialist Cardiology 09/01/22 Dario Ling [address] [place] [address] Specialist Pulmonology 09/01/22 documented as of this encounter
--- OUTSIDE RECORDS SUMMARY | 2024-06-09 13:16 | XMS_ITS | Encounter Summary ---
Author Organization [facility] Address [address] [place] [address] Care Team Providers Care Inseamer Name Role Phone Nancy Elliott DO Unavailable Unavailable Shawanda Oliver MD Primary Care Provider Noah Gramajo Primary Care Provider [phone] Carmina Varela MD Primary Care Prov ider Db Martino MD Unavailable Unavailable Dario Ling Unavailable Unavailable Encounter Details Date Type Department Care Team Description 08/15/2021 Foreign Language Professor Report Medical Records [address] [place] [address] Db Martino MD Social History Tobacco Use [...] on filedocumented in this encounter Care Teams Inseamer Relationship Specialty Start Date End Date Shawanda Oliver MD PCP - General Internal Medicine 08/24/20 10/31/21 Noah Parks [address] [place] [address] PCP - General Internal Medicine 11/01/21 11/25/21 Carmina Varela MD [address] [place] [address] PCP - General Internal Medicine 11/26/21 Nancy Elliott, DO Internal Medicine 01/28/14 08/31/22 Db Martino MD [address] [place] [address] Specialist Cardiology 09/01/22 Dario Ling [address] [place] [address] Specialist Pulmonology 09/01/22 documented as of this encounter
--- OUTSIDE RECORDS SUMMARY | 2024-06-09 13:16 | XMS_ITS | Encounter Summary ---
Author Organization [facility] Address [address] [place] [address] Care Team Providers Care Fitness And Wellness Director Name Role Phone Jarenbeatricedean Gerrydexter Primary Care Provider Unavailabl e Ariadne Bartono, Nancy DO Unavailable Unavailable Mariamakoruslan Woodscco, Nancy DO Primary Care Pro vider Unavailable Shawanda Oliver MD Primary Care Provider Noah Gramajo Primary Care Provider [phone] Carmina Varela MD Primary Care Prov ider Db Martino MD Unavailable Unavailable Dario Ling Unavailable Unavailable Reason for Visit * Reason Onset Date Comments TEST RESULTS 04/13/2020 Encounter Details Date Type Department Care Team Description 04/13/2020 Telephone Adult Medicine [address] [address] Nancy Elliott DO TEST RESULTS Social History Tobacco Use Types Packs/Day Years [...] encounter Miscellaneous Notes * Telephone Encounter - Ghislaine Hayes M.A. - 04/13/2020 3:32 PM EST Left message for patient to return call. Please see dr Mccormick note * Telephone Encounter - Ghislaine Hayes M.A. - 04/13/2020 3:32 PM EST ----- Message from Nancy Valdivia DO sent at 04/12/2020 4:35 PM EST ----- Please call patient regarding results Any symptoms of uti/? Telephone Information: documented in this encounter Plan of Treatment Not on file documented as of this encounter Visit Diagnoses Not on filedocumented in this encounter Care Teams Fitness And Wellness Director Relationship Specialty Start Date End Date Radha Mccray PCP - General 01/28/14 06/25/20 Nancy Elliott DO PCP - General Internal Medicine 06/26/20 08/23/20 Shawanda Oliver MD PCP - General Internal Medicine 08/24/20 10/31/21 Noah Parks [address] [place] [address] PCP - General Internal Medicine 11/01/21 11/25/21 Carmina Varela MD [address] [place] [address] PCP - General Internal Medicine 11/26/21 Nancy Elliott DO Internal Medicine 01/28/14 08/31/22 Db Martino MD [address] [place] [address] Specialist Cardiology 09/01/22 Dario Ling [address] [place] [address] Specialist Pulmonology 09/01/22 documented as of this encounter
--- OUTSIDE RECORDS SUMMARY | 2024-06-09 13:16 | XMS_ITS | Encounter Summary ---
Author Organization [facility] Address [address] [place] [address] Care Team Providers Care Range Feeder Name Role Phone Shazia Gerrydexter Primary Care Provider Unavailabl e Ariadne Bartono Nancy Unavailable Unavailable Ariadne Bartono Nancy DO Primary Care Pro vider Unavailable Shawanda Oliver MD Primary Care Provider Noah Gramajo Primary Care Provider [phone] Carmina Varela MD Primary Care Prov ider Db Maritno MD Unavailable Unavailable Dario Ling Unavailable Unavailable Reason for Visit * Reason Onset Date Comments Testing 10/04/2016 Encounter Details Date Type Department Care Team Description 10/04/2016 Telephone Adult Medicine [address] [id number] Nancy Elliott DO Testing Social History Tobacco Use Types Packs/Day Years [...] encounter Miscellaneous Notes * Telephone Encounter - Rashida Ma - 10/04/2016 4:39 PM EDT La Nena Castro has not responded to the telephone calls that were made on 08/18/16 and 08/20/16 as well as the letter that was sent on 08/25/[address] Scan of neck; therefore we are removing the test from our Scheduled Orders Report. Please note that this test must be reordered if required in the future. Rashida Ma BSR Radiology Department documented in this encounter Plan of Treatment Not on file documented as of this encounter Visit Diagnoses Not on filedocumented in this encounter Care Teams Range Feeder Relationship Specialty Start Date End Date Radha Mccray PCP - General 01/28/14 06/25/20 Nancy Elliott DO PCP - General Internal Medicine 06/26/20 08/23/20 Shawanda Oliver MD PCP - General Internal Medicine 08/24/20 10/31/21 Noah Parks [address] [place] [address] PCP - General Internal Medicine 11/01/21 11/25/21 Carmina Varela MD [address] [place] [address] PCP - General Internal Medicine 11/26/21 Nancy Elliott DO Internal Medicine 01/28/14 08/31/22 Db Martino MD [address] [place] [address] Specialist Cardiology 09/01/22 Dario Ling [address] [place] [address] Specialist Pulmonology 09/01/22 documented as of this encounter
--- OUTSIDE RECORDS SUMMARY | 2024-06-09 13:16 | XMS_ITS | Encounter Summary ---
Author Organization [facility] Address [address] [place] [address] Care Team Providers Care Nailhead Puncher Name Role Phone Radha Mccray Primary Care Provider Unavailabl e [place] Colasacco, Nancy DO Unavailable Unavailable [place] Colasacco, Nancy DO Primary Care Pro vider Unavailable Shawanda Oliver MD Primary Care Provider Noah Gramajo Primary Care Provider [phone] Carmina Varela MD Primary Care Prov ider Db Martino MD Unavailable Unavailable Dario Ling Unavailable Unavailable Encounter Details Date Type Department Care Team Description 04/19/2019 Biological Science Aide Report Medical Records [address] [place] [id number] Dario Ling Social History Tobacco Use Types [...] on filedocumented in this encounter Care Teams Nailhead Puncher Relationship Specialty Start Date End Date Radha Mccray PCP - General 01/28/14 06/25/20 Nancy Elliott DO PCP - General Internal Medicine 06/26/20 08/23/20 Shawanda Oliver MD PCP - General Internal Medicine 08/24/20 10/31/21 Noah Parks [address] [place] [address] PCP - General Internal Medicine 11/01/21 11/25/21 Carmina Varela MD [address] [place] [address] PCP - General Internal Medicine 11/26/21 Nancy Elliott DO Internal Medicine 01/28/14 08/31/22 Db Martino MD [address] [place] [address] Specialist Cardiology 09/01/22 Dario Ling [address] [place] [address] Specialist Pulmonology 09/01/22 documented as of this encounter
--- OUTSIDE RECORDS SUMMARY | 2024-06-09 13:16 | XMS_ITS | Encounter Summary ---
Author Organization [facility] Address [address] [place] [address] Care Team Providers Care Financial Aids Officer Name Role Phone Nancy Elliott DO Unavailable Unavailable Nancy Elliott DO Primary Care Pro vider Unavailable Shawanda Oliver MD Primary Care Provider Noah Gramajo Primary Care Provider [phone] Carmina Varela MD Primary Care Prov ider Db Martino MD Unavailable Unavailable Dario Ling Unavailable Unavailable Encounter Details Date Type Department Care Team Description 07/23/2020 [facility] Medical Records [address] [place] [address] Poncho Pelletier MD Social History Tobacco Use Types Packs/Day [...] on filedocumented in this encounter Care Teams Financial Aids Officer Relationship Specialty Start Date End Date Nancy Elliott DO PCP - General Internal Medicine 06/26/20 08/23/20 Shawanda Oliver MD PCP - General Internal Medicine 08/24/20 10/31/21 Noah Parks [address] [place] [address] PCP - General Internal Medicine 11/01/21 11/25/21 Carmina Varela MD [address] [place] [address] PCP - General Internal Medicine 11/26/21 Nancy Elliott, DO Internal Medicine 01/28/14 08/31/22 Db Martino MD [address] [place] [address] Specialist Cardiology 09/01/22 Dario Ling [address] [place] [address] Specialist Pulmonology 09/01/22 documented as of this encounter
--- OUTSIDE RECORDS SUMMARY | 2024-06-09 13:16 | XMS_ITS | Encounter Summary ---
Author Organization [facility] Address [address] [place] [address] Care Team Providers Care Bone Process Operator Name Role Phone Carmina Varela MD Primary Care Prov ider Db Martino MD Unavailable Unavailable Dario Ling Unavailable Unavailable Encounter Details Date Type Department Care Team Description 01/30/2023 Transit Survey Worker Report Medical Records [address] [place] [address] Mariel Arellano FNP Social History Tobacco Use [...] on filedocumented in this encounter Care Teams Bone Process Operator Relationship Specialty Start Date End Date Carmina Varela MD [address] [place] [address] PCP - General Internal Medicine 11/26/21 Db Martino MD [address] [place], [place] [id number] Specialist Cardiology 09/01/22 Dario Ling [address] [place] [address] Specialist Pulmonology 09/01/22 documented as of this encounter
--- OUTSIDE RECORDS SUMMARY | 2024-06-09 13:16 | XMS_ITS | Encounter Summary ---
Author Organization [facility] Address [address] [place] [address] Care Team Providers Care Ward Maid Name Role Phone Radha Mccray Primary Care Provider Unavailabl e [place] Colbarrettcco Nancy DO Unavailable Unavailable [place] Colasacco, Nancy DO Primary Care Pro vider Unavailable Shawanda Oliver MD Primary Care Provider Noah Gramajo Primary Care Provider [phone] Carmina Varela MD Primary Care Prov ider Db Martino MD Unavailable Unavailable Dario Ling Unavailable Unavailable Encounter Details Date Type Department Care Team Description 09/17/2016 Night Triage Doc Medical Records [address] [place] [address] Abstract, Provider Social History Tobacco Use Types [...] on filedocumented in this encounter Care Teams Ward Maid Relationship Specialty Start Date End Date Radha Mccray PCP - General 01/28/14 06/25/20 Nancy Elliott DO PCP - General Internal Medicine 06/26/20 08/23/20 Shawanda Oliver MD PCP - General Internal Medicine 08/24/20 10/31/21 Noah Parks [address] [place] [address] PCP - General Internal Medicine 11/01/21 11/25/21 Carmina Varela MD [address] [place] [address] PCP - General Internal Medicine 11/26/21 Nancy Elliott, Internal Medicine 01/28/14 08/31/22 Db Martino MD [address] [place] [address] Specialist Cardiology 09/01/22 Dario Ling [address] [place] [address] Specialist Pulmonology 09/01/22 documented as of this encounter
[2024-06-09 13:25] VITALS: BP 90/62; PULSE 78; BMI 40.8
--- NOTE | 2024-06-09 13:25 | A.OFFVIS_ITS ---
Vital Signs 06/09/24 13:25 Height 4 ft 11 in Weight 201 lb 15.095 oz BMI 40.8 BP 90/62 Blood Pressure Location Lt brachial Position Sitting Pulse 78 Pulse Source Pulse Oximeter Intake Visit Reasons: 3 mthf/up Library Director Required: No Allergies No Known Allergies Allergy (Verified 06/09/24 13:27) Medication List - Last Reconciled 06/09/24 by CARINA Faust atorvastatin 80 mg PO BEDTIME carvedilol 25 mg PO BID citalopram 20 mg PO DAILY diphenhydramine HCl (ZzzQuil) 50 mg PO BEDTIME PRN empagliflozin (Jardiance) 25 mg PO DAILY furosemide 40 mg orally 2 tabs in am (80mg) and 1 tab in pm (40mg); Additional dose in the PM when directed by cardiology 90 days insulin aspart U-100 1 sliding scale dose subcut TIDAC insulin glargine (Lantus Solostar U-100 Insulin) 28 units subcut BEDTIME ipratropium-albuterol 20-100 mcg/actuation (Combivent Respimat) 1 puff inhalation QID PRN rivaroxaban (Xarelto) 20 mg PO QPM sacubitril-valsartan 97-103 mg (Entresto) 1 tab PO BEDTIME spironolactone (Aldactone) 25 mg PO DAILY 90 days HPI HPI 3 mthf/up: Details: La Nena is a 68 yo female with PMH of HTN, HLD, DM, CAD s/p 2 vessel CABG, CMP s/p Bi V ICD, CHB, HFrEF, bilateral PE, brief NSVT on ICD remote monitoring, CardioMEMS, Mild to moderate who was [place] [facility] [place] decompensated he heart failure in March 2024 and April 2024. She was diuresed and continued on guideline directed medical therapy. She has been doing her CardioMEMS readings since her most recent hospital discharge. He now presents for follow- up. Today she reports that she has been doing well since her last hospital discharge. She states she noticed yesterday and today that she has a little bit of congestion. She is denying shortness of breath, PND, orthopnea or edema. No chest discomfort at rest or with activity.. No heart palpitations, lightheadedness, presyncope, syncope, falls. She admits to being mostly sedentary and only does light activities around the house. No routine exercise. Taking all meds as directed. COUNT INCLUDES THE [facility] Medical History CHF (congestive heart failure) Sleep apnea Presence of CardioMEMS HF system Hx of myocardial infarction Anxiety and depression Osteoarthritis Fatty liver Restrictive lung disease TAQUERIA treated with BiPAP Morbid obesity Biventricular ICD (implantable cardioverter-defibrillator) in place CAD (coronary artery disease) Non-rheumatic aortic stenosis Atherosclerotic cardiovascular disease Acute on chronic systolic and diastolic heart failure, NYHA class 3 Leukocytosis Dyspnea Transaminitis Hypoxia Congestive heart failure TAQUERIA (obstructive sleep apnea) NSVT (nonsustained ventricular tachycardia) Cardiomyopathy Chronic systolic heart failure Diabetes mellitus HLD (hyperlipidemia) HTN (hypertension) Surgical History History of incision and drainage Status post coronary artery bypass graft Stented coronary artery Hx of CABG History of cardiac cath Hx of cardiac cath Hx of cardiac cath Hx of appendectomy History of cholecystectomy Family History Father No problems noted. Mother No problems noted. Social History Household Members: Family Household Members Other:: son and daughter in law Housing: Apartment Are you a primary patient care assistant to a significant other at home: No Do you presently have visiting nurse or other home services: No Alcohol intake: never Comment: chronic back pain Patient Tobacco Use Status: Current everyday Tobacco user Tobacco use type: Cigarette Cigarette Packs Per Day: 0.25 Cigarettes Per Day: 5 Years Smoked: 30 e-Cigarette/Vaping Use: Never Used Second Hand Smoke Exposure: Yes Advance Directives Date on File: 11/07/22 service: No Current occupational status: unemployed and disabled Current occupation: rt hand Review of Systems Const All systems reviewed & are unremarkable except as noted in HPI and below ENT Denies dizziness Card Details: morning cough Denies chest pain, Denies chest pain at rest, Denies chest pain with activity, Denies rapid heart rate, Denies pedal edema, Denies edema, Denies leg edema, Denies lightheadedness, Denies palpitations, Denies dyspnea, Denies dyspnea on exertion and Denies orthopnea Resp Denies cough, Denies dyspnea and Denies dyspnea on exertion GI Denies hematochezia and Denies change in stool character Musc Denies abnormal gait, Denies limited range of motion, Denies muscle cramps, Denies muscle weakness, Denies numbness, Denies radiating pain into limb, Denies stiffness and Denies tingling Neuro Denies abnormal gait, Denies dizziness, Denies numbness and Denies tingling Endo Denies palpitations Physical Exam Vital Signs: Last Vital Signs Pulse 78 06/09/24 13:25 BP 90/62 06/09/24 13:25 BMI result Body Mass Index 40.8 Const Other: morbidly obese General: cooperative, healthy appearing, comfortable and no acute distress Orientation/consciousness: patient oriented x3 Neck Neck: Yes normal visual inspection Resp Effort & Inspection: normal respiratory effort Auscultation: clear to auscultation bilaterally, no crackles, no rales, no rhonchi and no wheezes Cardio Rate: regular rate Rhythm: regular rhythm Heart sounds: S1 normal heart sound present, S2 normal heart sound present, no murmurs and no rubs Neuro General: patient oriented x3 Extrem General: Yes normal to inspection, No no pedal edema and No calf tenderness Psych Appearance: grossly normal Mental Status: mental status grossly normal Speech and movement: Normal speech and movement present Assessment & Plan Assessment & Plan (1) Chronic systolic heart failure: Code(s): I50.22 - Chronic systolic (congestive) heart failure Category: Medical Plan: History of chronic systolic and diastolic heart failure. She does have a CardioMEMS device to help with heart failure monitoring however she had not been compliant with her readings. 2 Recent [facility] admission for Congestive heart failure exacerbation. Echocardiogram done 03/29/24 showed mild concentric LVH, EF 30-35%, evidence of regional wall motion abnormality, mild pulmonary hypertension. Since her last hospital discharge he has been compliant with her CardioMEMS readings. I find her readings to be quite variable but elevated at times. She has been instructed to increase her diuretic for this reason. She is currently on Lasix 80 mg in the a.m. and 40 mg in the p.m.. Today she reports that she has had a little cough in the last 2 days. Her most recent CardioMEMS reading was elevated. I will have her increase her Lasix to 80 mg b.i.d. for 2 days then go back to 80/40. Signs and symptoms of heart failure reviewed with her in detail. Labs 05/06/2024 shows potassium 3.7, creatinine 1.08. She does follow with Nephrology, Dr. Hopson. Blood pressure on low side today, asymptomatic. Wiill continue on carvedilol, Entresto for neurohormonal modulation. Continue Jardiance, Aldactone for heart failure treatment. Continue Lasix. Emergency care if needed for symptoms. Cardiology office visit in 3 months, sooner if needed. (2) Chronic diastolic heart failure: Comment: SHE IS A CASE OF CHRONIC DIASTOLIC FAILURE AND IS BEING FOLLOWED BY CARDIOLOGY SERVICE CLOSELY. SHE IS ON LONG STANDING ANTICOAGULATION THERAPY Code(s): I50.32 - Chronic diastolic (congestive) heart failure Category: Medical Plan: As above (3) S/P cardiac catheterization: Comment: 10/23/2023 moderate distal left main, severe ostial circumflex, widely patent mid LAD stents, widely patent GERBER to LAD and vein graft to OM 2, no gradient across the aortic valve by catheter pullback from the LV to the aorta, presence of left subclavian stenosis which could cause exertional ischemia in the GERBER to LAD graft - no angiographic culprit explaining patient's symptom and presentation. Code(s): Z98.890 - Other specified postprocedural states Category: Surgical Plan: (4) Cardiomyopathy: Comment: mixed ischemic and nonischemic Code(s): I42.9 - Cardiomyopathy, unspecified Category: Medical Plan: Notes indicate this is mixed ischemic versus nonischemic cardiomyopathy. Most recent EF 30-35% which is same as prior. Cardiac catheterization shows no change in anatomy. Medical management as above (5) Presence of CardioMEMS HF system: Code(s): Z95.818 - Presence of other cardiac implants and grafts Category: Medical Plan: CardioMEMS heart failure monitoring sensor placed by Dr. Reza on 01/25/2021.? She had not been consistently compliant with her CardioMEMS readings until recently. Her readings that are done are quite variable likely due to dietary indiscretion, question of med compliance. I will continue to watch her CardioMEMS readings on the [employer] web site and call her to readjust Lasix dose as warranted (6) CAD (coronary artery disease): Code(s): I25.10 - Atherosclerotic heart disease of [place] coronary artery without angina pectoris Category: Medical Qualifiers: Associated angina: without angina Coronary Disease-Associated Art santiago/Lesion type: unspecified vessel or lesion type [place] vs. transplanted heart: unspecified whether [place] or transplanted heart Qualified Code(s): I25.10 - Atherosclerotic heart disease of [place] coronary artery without angina pectoris Plan: Hx CAD with 2 vessel CABG and prior coronary stent. Stable with no report of anginal sounding symptoms. Last Echo as above. Activity limited by knee pains and shortness of breath. Complaint with meds. Continue Carvediol, Entresto, atorvastatin. Not on aspirin as she is on Xarelto. Her insurance did not approve Corlanor, which was previously ordered. ? (7) Biventricular ICD (implantable cardioverter-defibrillator) in place: Comment: [facility], 2015 Code(s): Z95.810 - Presence of automatic (implantable) cardiac defibrillator Category: Medical Plan: [facility] Bi V ICD in place. Recent remote interrogation showed device is func tioning normally. Continue remote monitoring. Will arrange for device check in office next visit. (8) TAQUERIA treated with BiPAP: Code(s): G47.33 - Obstructive sleep apnea (adult) (pediatric) Category: Medical Plan: She reports compliance with CPAP. Follows with pulmonology (9) Aortic stenosis: Code(s): I35.0 - Nonrheumatic aortic (valve) stenosis Category: Medical Plan: [id number] noted on prior echo. Most recent echo is showing no aortic stenosis. Cardiac catheterization shows no gradient across the AV. (10) Hospital discharge follow-up: Code(s): Z09 - Encounter for follow-up examination after completed treatment for con ditions other than malignant neoplasm Category: Medical Plan: As above. [facility] records reviewed Plan Time spent on chart review, assessment, interview, documentation Coding Level of Care Code Est Pt Level 4 (20073) Complex EM visit Add On G2211 Diagnoses Chronic systolic heart failure I50.22 Chronic diastolic heart failure I50.32 S/P cardiac catheterization Z98.890 Cardiomyopathy I42.9 Presence of CardioMEMS HF system Z95.818 Coronary artery disease without angina pectoris, unspecified vessel or lesion type, unspecified whether [place] or transplanted heart I25.10 Associated angina: without angina Coronary Disease-Associated Artery/Lesion type: unspecified vessel or lesion type [place] vs. transplanted heart: unspecified whether [place] or transplanted heart Biventricular ICD (implantable cardioverter-defibrillator) in place Z95.810 TAQUERIA treated with BiPAP G47.33 Aortic stenosis I35.0 Hospital discharge follow-up Z09 Time Spent (min) 30
== END 2024-06-09 13:59 | disposition home or self-care (01) ==
PROVIDERS: Visit Provider Nurse Practitioner Family
DX: I50.22 Chronic systolic (congestive) heart failure (principal); I50.32 Chronic diastolic (congestive) heart failure; Z98.890 Other specified postprocedural states; I42.9 Cardiomyopathy, unspecified; Z95.818 Presence of other cardiac implants and grafts; I25.10 Atherosclerotic heart disease of native coronary artery without angina pectoris; Z95.810 Presence of automatic (implantable) cardiac defibrillator; G47.33 Obstructive sleep apnea (adult) (pediatric); I35.0 Nonrheumatic aortic (valve) stenosis; Z09 Encounter for follow-up examination after completed treatment for conditions other than malignant neoplasm
CPT/HCPCS: 99214; G2211

== ENCOUNTER → 2024-06-09 13:06 | Outpatient (BNVA) | payer OTHER, SELFPAY ==
[2021-10-15 11:10] VITALS: BP 110/70; BMI 46.0
== END ==
PROVIDERS: Visit Provider Nurse Practitioner Family
DX: Z09 Encounter for follow-up examination after completed treatment for conditions other than malignant neoplasm (principal); I11.0 Hypertensive heart disease with heart failure; I50.42 Chronic combined systolic (congestive) and diastolic (congestive) heart failure; I42.9 Cardiomyopathy, unspecified; I25.10 Atherosclerotic heart disease of native coronary artery without angina pectoris; I35.0 Nonrheumatic aortic (valve) stenosis; G47.33 Obstructive sleep apnea (adult) (pediatric); Z98.890 Other specified postprocedural states; Z95.818 Presence of other cardiac implants and grafts; Z95.810 Presence of automatic (implantable) cardiac defibrillator
CPT/HCPCS: 99212

== ENCOUNTER → 2024-06-17 23:59 | Outpatient (BNV) | payer OTHER, SELFPAY ==
[2021-10-15 11:10] VITALS: BP 110/70; BMI 46.0
--- NOTE | 2024-07-08 18:07 | MHC.OFFVIS ---
Intake Visit Reasons: Remote cardiomems monitoring- [facility] Allergies No Known Allergies Allergy (Verified 06/09/24 13:27) [facility] Medical History CHF (congestive heart failure) Sleep apnea Presence of CardioMEMS HF system Hx of myocardial infarction Anxiety and depression Osteoarthritis Fatty liver Restrictive lung disease TAQUERIA treated with BiPAP Morbid obesity Biventricular ICD (implantable cardioverter-defibrillator) in place CAD (coronary artery disease) Non-rheumatic aortic stenosis Atherosclerotic cardiovascular disease Acute on chronic systolic and diastolic heart failure, NYHA class 3 Leukocytosis Dyspnea Transaminitis Hypoxia Congestive heart failure TAQUERIA (obstructive sleep apnea) NSVT (nonsustained ventricular tachycardia) Cardiomyopathy Chronic systolic heart failure Diabetes mellitus HLD (hyperlipidemia) HTN (hypertension) Surgical History History of incision and drainage Status post coronary artery bypass graft Stented coronary artery Hx of CABG History of cardiac cath Hx of cardiac cath Hx of cardiac cath Hx of appendectomy History of cholecystectomy Family History Father No problems noted. Mother No problems noted. Social History Household Members: Family Household Members Other:: son and daughter in law Housing: Apartment Are you a primary lead care manager to a significant other at home: No Do you presently have visiting nurse or other home services: No Alcohol intake: never Comment: chronic back pain Patient Tobacco Use Status: Current everyday Tobacco user Tobacco use type: Cigarette Cigarette Packs Per Day: 0.25 Cigarettes Per Day: 5 Years Smoked: 30 e-Cigarette/Vaping Use: Never Used Second Hand Smoke Exposure: Yes Advance Directives Date on File: 11/07/22 service: No Current occupational status: unemployed and disabled Current occupation: rt hand Office Procedures Cardiac Device Check Cardiac Device Check Details: Monitoring period dates: 05/05/24- 06/17/24 Optimal PA pressure range: PAD goal 16 mmhg Procedure code: 32012 BACKGROUND: La Nena is implanted with the CardioMEMS PA Sensor.? I use this technology to monitor PA pressures on a weekly basis to ensure patients are within their optimal range to prevent decompensation.? SUMMARY:? I utilized the remote monitoring platform ([employer]) to set optimal targets for pulmonary artery pressure thresholds as part of acute and chronic management of patient?s heart failure. During the period indicated above, I monitored the patient?s pulmonary artery pressures weekly via trend analysis and notification reports which provide alerts when patient?s PA pressures were outside of range to prompt immediate action in medication changes and communications.? The weekly reports are archived in the [employer] system which serve as a parallel record to document weekly PA pressures, medication changes, and clinical notes. I have reviewed readings on 05/06, 05/13, 05/20, 05/27, 06/03, 06/10. 06/17. Readings have ranged between 24-32mmhg. She has been much more compliant with readings during this cycle. No HF admissions. May need to increase PAD goal. 90077 - Remote monitoring of wireless pulmonary artery pressure sensor Procedure code (CPT) selection complete Assessment & Plan Assessment & Plan (1) Presence of CardioMEMS HF system: Code(s): Z95.818 - Presence of other cardiac implants and grafts Category: Medical Plan: monthly report Coding Level of Care Code Procedure Only Diagnoses Presence of CardioMEMS HF system Z95.818 CPT Codes Cardiac Device Check - Cardiac Device 17: 97489 - Remote monitoring of wireless pulmonary artery pressure sensor ([id number])
== END ==
PROVIDERS: Visit Provider Nurse Practitioner Family
DX: Z45.09 Encounter for adjustment and management of other cardiac device (principal)
CPT/HCPCS: 93264

== ENCOUNTER → 2024-07-19 23:59 | Outpatient (BNV) | payer OTHER, SELFPAY ==
[2021-10-15 11:10] VITALS: BP 110/70; BMI 46.0
--- NOTE | 2024-07-22 17:06 | A.OFFVIS_ITS ---
Intake Visit Reasons: remote Cardiomems- [facility] Allergies No Known Allergies Allergy (Verified 06/09/24 13:27) [facility] Medical History CHF (congestive heart failure) Sleep apnea Presence of CardioMEMS HF system Hx of myocardial infarction Anxiety and depression Osteoarthritis Fatty liver Restrictive lung disease TAQUERIA treated with BiPAP Morbid obesity Biventricular ICD (implantable cardioverter-defibrillator) in place CAD (coronary artery disease) Non-rheumatic aortic stenosis Atherosclerotic cardiovascular disease Acute on chronic systolic and diastolic heart failure, NYHA class 3 Leukocytosis Dyspnea Transaminitis Hypoxia Congestive heart failure TAQUERIA (obstructive sleep apnea) NSVT (nonsustained ventricular tachycardia) Cardiomyopathy Chronic systolic heart failure Diabetes mellitus HLD (hyperlipidemia) HTN (hypertension) Surgical History History of incision and drainage Status post coronary artery bypass graft Stented coronary artery Hx of CABG History of cardiac cath Hx of cardiac cath Hx of cardiac cath Hx of appendectomy History of cholecystectomy Family History Father No problems noted. Mother No problems noted. Social History Household Members: Family Household Members Other:: son and daughter in law Housing: Apartment Are you a primary adult day care worker to a significant other at home: No Do you presently have visiting nurse or other home services: No Alcohol intake: never Comment: chronic back pain Patient Tobacco Use Status: Current everyday Tobacco user Tobacco use type: Cigarette Cigarette Packs Per Day: 0.25 Cigarettes Per Day: 5 Years Smoked: 30 e-Cigarette/Vaping Use: Never Used Second Hand Smoke Exposure: Yes Advance Directives Date on File: 11/07/22 service: No Current occupational status: unemployed and disabled Current occupation: rt hand Office Procedures Cardiac Device Check Cardiac Device Check Details: Monitoring period dates: 06/18/24 - 07/19/24 Optimal PA pressure range: PAD goal 16 mmhg Procedure code: 81616 BACKGROUND: [place] is implanted with the CardioMEMS PA Sensor.? I use this technology to monitor PA pressures on a weekly basis to ensure patients are within their optimal range to prevent decompensation.? SUMMARY:? I utilized the remote monitoring platform (Medminder) to set optimal targets for pulmonary artery pressure thresholds as part of acute and chronic management of patient?s heart failure. During the period indicated above, I monitored the patient?s pulmonary artery pressures weekly via trend analysis and notification reports which provide alerts when patient?s PA pressures were outside of range to prompt immediate action in medication changes and communications.? The weekly reports are archived in the Medminder system which serve as a parallel record to document weekly PA pressures, medication changes, and clinical notes. I have reviewed readings on 06/24, 07/01, 07/08, 07/15, 07/19. Her compliance has been 10% in the last month in spite of reminders. Readings have ranged between 24-34mmhg. No HF admissions. Still may need to increase her PAD goal. 06454 - Remote monitoring of wireless pulmonary artery pressure sensor Procedure code (CPT) selection complete Assessment & Plan Assessment & Plan (1) Presence of CardioMEMS HF system: Code(s): Z95.818 - Presence of other cardiac implants and grafts Category: Medical Plan: monthly report Coding Level of Care Code Procedure Only Diagnoses Presence of CardioMEMS HF system Z95.818 CPT Codes Cardiac Device Check - Cardiac Device 17: 62614 - Remote monitoring of wireless pulmonary artery pressure sensor ([id number])
== END ==
PROVIDERS: Visit Provider Nurse Practitioner Family
DX: Z45.09 Encounter for adjustment and management of other cardiac device (principal)
CPT/HCPCS: 93264

== ENCOUNTER → 2024-08-02 23:59 | Outpatient (BNV) | payer OTHER, SELFPAY ==
[2021-10-15 11:10] VITALS: BP 110/70; BMI 46.0
--- NOTE | 2024-08-05 13:31 | MHC.OFFVIS ---
Intake Visit Reasons: Remote ICD check- [facility] Allergies No Known Allergies Allergy (Verified 06/09/24 13:27) [facility] Medical History (Updated 08/05/24 @ 13:32 by Db Martino MD) Biventricular ICD (implantable cardioverter-defibrillator) in place CHF (congestive heart failure) Sleep apnea Presence of CardioMEMS HF system Hx of myocardial infarction Anxiety and depression Osteoarthritis Fatty liver Restrictive lung disease TAQUERIA treated with BiPAP Morbid obesity CAD (coronary artery disease) Non-rheumatic aortic stenosis Atherosclerotic cardiovascular disease Acute on chronic systolic and diastolic heart failure, NYHA class 3 Leukocytosis Dyspnea Transaminitis Hypoxia Congestive heart failure TAQUERIA (obstructive sleep apnea) NSVT (nonsustained ventricular tachycardia) Cardiomyopathy Chronic systolic heart failure Diabetes mellitus HLD (hyperlipidemia) HTN (hypertension) Surgical History History of incision and drainage Status post coronary artery bypass graft Stented coronary artery Hx of CABG History of cardiac cath Hx of cardiac cath Hx of cardiac cath Hx of appendectomy History of cholecystectomy Family History Father No problems noted. Mother No problems noted. Social History Household Members: Family Household Members Other:: son and daughter in law Housing: Apartment Are you a primary medicare sales executive to a significant other at home: No Do you presently have visiting nurse or other home services: No Alcohol intake: never Comment: chronic back pain Patient Tobacco Use Status: Current everyday Tobacco user Tobacco use type: Cigarette Cigarette Packs Per Day: 0.25 Cigarettes Per Day: 5 Years Smoked: 30 e-Cigarette/Vaping Use: Never Used Second Hand Smoke Exposure: Yes Advance Directives Date on File: 11/07/22 service: No Current occupational status: unemployed and disabled Current occupation: rt hand Office Procedures Cardiac Device Check Cardiac Device Check Details: Remote ICD report generated 08/02/2024. ICD function is adequate. Bi V pacing 96% of the time 37855-[id number] Cardiac Interrogation, implant defibrillator w/interim Procedure code (CPT) selection complete Assessment & Plan Assessment & Plan (1) Biventricular ICD (implantable cardioverter-defibrillator) in place: Comment: Michael Guerra Code(s): Z95.810 - Presence of automatic (implantable) cardiac defibrillator Category: Medical Plan: See above Coding Level of Care Code Procedure Only Diagnoses Biventricular ICD (implantable cardioverter-defibrillator) in place Z95.810 CPT Codes Cardiac Device Check - Cardiac Device 13: 79630-Czqwrp Cardiac Interrogation, implant defibrillator w/interim ([id number])
== END ==
PROVIDERS: Visit Provider Internal Medicine Cardiovascular Disease
DX: Z45.02 Encounter for adjustment and management of automatic implantable cardiac defibrillator (principal)
CPT/HCPCS: 93295

== ENCOUNTER 2024-08-28 18:05 | Inpatient (IN) | payer OTHER, SELFPAY ==
[2021-10-15 11:10] VITALS: BP 110/70; BMI 46.0
--- NOTE | ~2024-08-28 | CT_ITS ---
CLINICAL HISTORY: PNA vs edema , sob hx copd, chf CT chest without contrast Comparison: CR - XR CHEST 2V - 08/28/24 18:[address]/SR - CT CHEST WO IV CON - 02/12/24 13:30 EDT Findings: There is a left subclavian dual lead pacemaker with leads in the right atrium and right ventricle. Moderate cardiomegaly. Extensive coronary artery calcifications. Previous sternotomy Borderline enlarged right paratracheal lymph node measuring 1.6 cm in short axis. Intra and interlobular septal thickening present in the posterior lungs. There is a peripheral area of ground-glass opacity in the inferior portion of the right upper lobe. There is a 6 mm nodule in the right upper lobe. No pleural effusion or pneumothorax. The visualized upper abdomen is unremarkable. No acute fractures. IMPRESSION: Mild intra and interlobular septal thickening suggesting pulmonary edema. Focal geographic area of ground-glass opacity in the peripheral right upper lobe which may be an area of pulmonary edema, pneumonia, atypical infection, pulmonary infarct, or interstitial lung disease. 6 mm pulmonary nodule in the right upper lobe. 6-8 mm nodules need 3-[address] follow-up followed by an optional 18-[address] follow-up regardless of patient risk. This document has been electronically signed by: Shahid Mcpherson MD on 08/28/2024 22:56:05
--- NOTE | ~2024-08-28 | XR_ITS ---
CLINICAL HISTORY: right sided CP 2 view chest x-ray Comparison: Chest x-ray from 05/05/2024 Findings: Pulmonary opacities are nonspecific and may reflect recurrent pulmonary edema given interstitial predominance. Pneumonitis also considered. Small right pleural effusion present with prominence of the horizontal fissure. No pneumothorax. Cardiomegaly, sternotomy wires, cardiac device, leads are redemonstrated. Degenerative changes include imaged shoulders, AC joints, and imaged spine. IMPRESSION: 1. Pulmonary opacities with interstitial predominance are nonspecific. Differential considerations include recurrent pulmonary edema. 2. Small right pleural effusion. This document has been electronically signed by: Isidro Don MD on 08/28/2024 19:14:17
[2024-08-28 18:12] VITALS: BP 158/81; PULSE 97; RESP 18; TEMP 36.8; O2SAT 98; BMI 40.3
[2024-08-28 18:35] LABS: MANUAL DIFF FLAG NO
[2024-08-28 18:50] LABS: Alanine Aminotransferase 13 U/L (0-31); Albumin Level 4.2 g/dL (3.5-5.0); Alkaline Phosphatase 102 U/L (39-117); Anion Gap 16 (12-20); Aspartate Amino Transferase 23 U/L (5-31); Basophils Absolute Auto 0.1 X10*3/uL (0.0-0.2); Basophils Percent Auto 0.6 % (0-2); Blood Urea Nitrogen 20 mg/dL (9-16); Calcium 9.1 mg/dL (8.4-10.2); Carbon Dioxide 18 mmol/L (22-29); Chloride 108 mmol/L (96-108); Creatinine Clr Calc Pharmacy 49.8; Eosinophils Absolute Auto 0.2 X10*3/uL (0.0-0.4); Eosinophils Percent Auto 1.7 % (0-4); Estimated Glomerular Filt Rate 53; Glucose Random 219 mg/dL (60-115); Hematocrit 50.3 % (37.0-47.0); Hemoglobin 16.5 g/dl (12.0-16.0); Imm Gran Abs Auto 0.04 X10*3/uL (0.00-0.03); Imm Gran Pct Auto 0.3 % (0.0-0.4); Lymphocytes Absolute Auto 3.6 X10*3/uL (1.2-4.9); Lymphocytes Percent Auto 29.9 % (20-40); Mean Corpuscular HGB Conc 32.8 g/dl (31.0-35.0); Mean Corpuscular Hemoglobin 29.8 pg (27.0-33.0); Mean Corpuscular Volume 90.8 fL (80.0-98.0); Mean Platelet Volume 11.7 fL (9.4-12.3); Monocytes Absolute Auto 0.7 X10*3/uL (0.1-1.2); Monocytes Percent Auto 5.9 % (2-11); Neutrophils Absolute Auto 7.4 x10*3/uL (2.0-8.3); Neutrophils Percent Auto 61.6 % (45-73); Platelet Count 105 X10*3/uL (160-400); Potassium 4.5 mmol/L (3.3-5.1); Red Blood Count 5.54 X10*6/uL (4.20-5.50); Sodium 137 mmol/L (135-145); Total Protein 7.6 g/dL (6.5-8.0); White Blood Count 11.9 X10*3/uL (4.8-10.8)
[2024-08-28 18:59] LABS: Troponin-I High Sensitivity 675.7 ng/L (<3.5-17.0)
--- NOTE | 2024-08-28 19:03 | ECG_ITS ---
Test Reason : ELEVATED TROP Blood Pressure : */* mmHG Vent. Rate : 91 BPM Atrial Rate : 91 BPM P-R Int : * ms QRS Dur : 182 ms QT Int : 474 ms P-R-T Axes : 95 234 265 degrees QTcB Int : 583 ms Ventricular-paced rhythm with occasional Premature ventricular complexes Biventricular pacemaker detected Abnormal ECG When compared with ECG of 05-May-2024 19:15, Vent. rate has decreased by 7 bpm Referred By: Lata Brooks Electronically Signed By: BATSHEVA POLANCO
[2024-08-28 19:13] LABS: Influenza A PCR NEGATIVE (Negative); Influenza B PCR NEGATIVE (Negative); Resp Syncy Virus RNA Qual PCR NEGATIVE (Negative); SARS COV2 PCR INHOUSE NEGATIVE (Negative)
--- OUTSIDE RECORDS SUMMARY | 2024-08-28 19:29 | XMS_ITS | Encounter Summary ---
Author Organization [facility] Address [address] [place] [address] Care Team Providers Care Brick Kiln Worker Name Role Phone Carmina Varela MD Primary Care Prov ider Db Martino MD Unavailable Unavailable Dario Ling Unavailable Unavailable Encounter Details Date Type Department Care Team Description 08/20/2023 Rotary Kiln Operator Report Medical Records [address] [place] [address] Dario Ling Social History Tobacco Use Types [...] on filedocumented in this encounter Care Teams Brick Kiln Worker Relationship Specialty Start Date End Date Carmina Varela MD [address] [place] [address] PCP - General Internal Medicine 11/26/21 Db Martino MD [address] [place], [place] [id number] Specialist Cardiology 09/01/22 Dario Ling [address] [place] [address] Specialist Pulmonology 09/01/22 documented as of this encounter
--- OUTSIDE RECORDS SUMMARY | 2024-08-28 19:29 | XMS_ITS | Encounter Summary ---
Author Organization [facility] Address [address] [place] [address] Care Team Providers Care Psychology Department Chair Name Role Phone Radha Mccray Primary Care Provider Unavailabl e Ariadne Colbarbarao Nancy DO Unavailable Unavailable Mariamakowiak Colasacco Nancy DO Primary Care Pro vider Unavailable Shawanda Oliver MD Primary Care Provider Noah Gramajo Primary Care Provider [phone] Carmina Varela MD Primary Care Prov ider Db Martino MD Unavailable Unavailable Dario Ling Unavailable Unavailable Encounter Details Date Type Department Care Team Description 04/17/2016 Transfer Records Medical Records [address] [place], [place] [id number] [place] [address] Social History Tobacco Use Types Packs/Day Years [...] on filedocumented in this encounter Care Teams Psychology Department Chair Relationship Specialty Start Date End Date Radha Mccray PCP - General 01/28/14 06/25/20 Nancy Elliott DO PCP - General Internal Medicine 06/26/20 08/23/20 Shawanda Oliver MD PCP - General Internal Medicine 08/24/20 10/31/21 Noah Parks [address] [place] [address] PCP - General Internal Medicine 11/01/21 11/25/21 Carmina Varela MD [address] [place] [address] PCP - General Internal Medicine 11/26/21 Nancy Elliott, DO Internal Medicine 01/28/14 08/31/22 Db Martino MD [address] [place] [address] Specialist Cardiology 09/01/22 Dario Ling [address] [place] [address] Specialist Pulmonology 09/01/22 documented as of this encounter
--- OUTSIDE RECORDS SUMMARY | 2024-08-28 19:29 | XMS_ITS | Encounter Summary ---
Author Organization [facility] Address [address] [place] [address] Care Team Providers Care Elevator Serviceman Name Role Phone Carmina Varela MD Primary Care Prov ider Db Martino MD Unavailable Unavailable Dario Ling Unavailable Unavailable Encounter Details Date Type Department Care Team Description 12/03/2023 Telephone Gastroenterology - [place] [address] [facility] [address] [place] [id number] Jericho Vargas DO [address] [facility] [address] [facility] [place] [address] Social History Tobacco Use Types Packs/Day Years [...] on filedocumented in this encounter Care Teams Elevator Serviceman Relationship Specialty Start Date End Date Carmina Varela MD [address] [place] [address] PCP - General Internal Medicine 11/26/21 Db Martino MD [address] [place] [address] Specialist Cardiology 09/01/22 Dario Ling [address] [place] [address] Specialist Pulmonology 09/01/22 documented as of this encounter
--- OUTSIDE RECORDS SUMMARY | 2024-08-28 19:29 | XMS_ITS | Encounter Summary ---
Author Organization [facility] Address [address] [place] [address] Care Team Providers Care Cabinet Mounter Name Role Phone Radha Mccray Primary Care Provider Unavailabl e Krakowiak Colasacco, Nancy DO Unavailable Unavailable [place] Colasacco, Nancy DO Primary Care Pro vider Unavailable Shawanda Oliver MD Primary Care Provider Noah Gramajo Primary Care Provider [phone] Carmina Varela MD Primary Care Prov ider Db Martino MD Unavailable Unavailable Dario Ling Unavailable Unavailable Encounter Details Date Type Department Care Team Description 04/13/2014 SCAN Medical Records [address] [place] [address] Abstract, Provider Social History Tobacco Use Types [...] Name Priority Date/Time Associated Diagnosis Comments OUTSIDE NUCLEAR STRESS TEST Routine 2014 documented in this encounter Results * OUTSIDE NUCLEAR STRESS TEST (2014) Provider Abstract CARDIOLOGY documented in this encounter Visit Diagnoses Not on filedocumented in this encounter Care Teams Cabinet Mounter Relationship Specialty Start Date End Date JarendhavalConnordavedexter PCP - General 01/28/14 06/25/20 Nancy Elliott DO PCP - General Internal Medicine 06/26/20 08/23/20 Shawanda Oliver MD PCP - General Internal Medicine 08/24/20 10/31/21 Noah Parks [address] [place] [address] PCP - General Internal Medicine 11/01/21 11/25/21 Carmina Varela MD [address] [place] [address] PCP - General Internal Medicine 11/26/21 Nancy Elliott DO Internal Medicine 01/28/14 08/31/22 Db Martino MD [address] [place] [address] Specialist Cardiology 09/01/22 Dario Ling [address] [place] [address] Specialist Pulmonology 09/01/22 documented as of this encounter
--- OUTSIDE RECORDS SUMMARY | 2024-08-28 19:29 | XMS_ITS | Encounter Summary ---
Author Organization [facility] Address [address] [place] [address] Care Team Providers Care Roving Hauler Name Role Phone Krakowiak Colasacco, Nancy DO [...] Details Date Type Department Care Team Description 01/10/2014 Safety Deposit Supervisor Report Medical Records [address] [place] [address] Db Martino MD Social History Tobacco Use [...] on filedocumented in this encounter Care Teams Roving Hauler Relationship Specialty Start Date End Date Krakowiak Colasacco, Nancy, DO PCP - General Internal Medicine 11/07/13 01/27/14 Radha Mccray PCP - General 01/28/14 06/25/20 Nancy Elliott DO PCP - General Internal Medicine 06/26/20 08/23/20 Shawanda Oliver MD PCP - General Internal Medicine 08/24/20 10/31/21 Noah Parks [address] [place] [address] PCP - General Internal Medicine 11/01/21 11/25/21 Carmina Varela MD [address] [place] [address] PCP - General Internal Medicine 11/26/21 Nancy Elliott, DO Internal Medicine 01/28/14 08/31/22 Db Martino MD [address] [place] [address] Specialist Cardiology 09/01/22 Dario Ling [address] [place] [address] Specialist Pulmonology 09/01/22 documented as of this encounter
--- OUTSIDE RECORDS SUMMARY | 2024-08-28 19:29 | XMS_ITS | Encounter Summary ---
Author Organization [facility] Address [address] [place] [address] Care Team Providers Care Strategic Planning Consultant Name Role Phone Radha Mccray Primary Care Provider Unavailabl e Krakowifranklin Colasacco, Nancy DO Unavailable Unavailable [place]ak Colasacco, Nancy DO Primary Care Pro vider Unavailable Shawanda Oliver MD Primary Care Provider Noah Gramajo Primary Care Provider [phone] Carmina Varela MD Primary Care Prov ider Db Martino MD Unavailable Unavailable Dario Ling Unavailable Unavailable Encounter Details Date Type Department Care Team Description 01/11/2015 Carpenter Report Medical Records [address] [place] [address] Db Martino MD Social History Tobacco Use [...] on filedocumented in this encounter Care Teams Strategic Planning Consultant Relationship Specialty Start Date End Date Radha Mccray PCP - General 01/28/14 06/25/20 Nancy Elliott DO PCP - General Internal Medicine 06/26/20 08/23/20 Shawanda Oliver MD PCP - General Internal Medicine 08/24/20 10/31/21 Noah Parks [address] [place] [address] PCP - General Internal Medicine 11/01/21 11/25/21 Carmina Varela MD [address] [place] [address] PCP - General Internal Medicine 11/26/21 Nancy Elliott, Internal Medicine 01/28/14 08/31/22 Db Martino MD [address] [place] [address] Specialist Cardiology 09/01/22 Dario Ling [address] [place] [address] Specialist Pulmonology 09/01/22 documented as of this encounter
--- OUTSIDE RECORDS SUMMARY | 2024-08-28 19:29 | XMS_ITS | Encounter Summary ---
Author Organization [facility] Address [address] [place] [address] Care Team Providers Care Tobacco Buyer Name Role Phone Nancy Elliott DO Unavailable Unavailable Shawanda Oliver MD Primary Care Provider Noah Gramajo Primary Care Provider [phone] Carmina Varela MD Primary Care Prov ider Db Martino MD Unavailable Unavailable Dario Ling Unavailable Unavailable Encounter Details Date Type Department Care Team Description 01/01/2021 Fusion Juncture Grinder Report Medical Records [address] [place] [address] Abstract, Provider Social History Tobacco Use Types [...] on filedocumented in this encounter Care Teams Tobacco Buyer Relationship Specialty Start Date End Date Shawanda Oliver MD PCP - General Internal Medicine 08/24/20 10/31/21 Noah Parks [address] [place] [address] PCP - General Internal Medicine 11/01/21 11/25/21 Carmina Varela MD [address] [place] [address] PCP - General Internal Medicine 11/26/21 Nancy Elliott, DO Internal Medicine 01/28/14 08/31/22 Db Mratino MD [address] [place] [address] Specialist Cardiology 09/01/22 Dario Ling [address] [place] [address] Specialist Pulmonology 09/01/22 documented as of this encounter
--- OUTSIDE RECORDS SUMMARY | 2024-08-28 19:29 | XMS_ITS | Encounter Summary ---
Author Organization [facility] Address [address] [place] [address] Care Team Providers Care Reroller Hand Name Role Phone Radha Mccray Primary Care Provider Unavailabl e Nancy Elliott DO Unavailable Unavailable Stephon Elliottabela DO Primary Care Pro vider Unavailable Shawanda Oliver MD Primary Care Provider Noah Gramajo Primary Care Provider [phone] Carmina Varela MD Primary Care Prov ider Db Martino MD Unavailable Unavailable Dario Ling Unavailable Unavailable Reason for Visit * Reason Onset Date Comments Provider Call Back 09/25/2015 Encounter Details Date Type Department Care Team Description 09/25/2015 Telephone Adult Medicine [address] [address] Nancy Elliott DO Provider Call Back Social [...] on filedocumented in this encounter Care Teams Reroller Hand Relationship Specialty Start Date End Date Radha Mccray PCP - General 01/28/14 06/25/20 Nancy Elliott DO PCP - General Internal Medicine 06/26/20 08/23/20 Shawanda Oliver MD PCP - General Internal Medicine 08/24/20 10/31/21 Noah Parks [address] [place] [address] PCP - General Internal Medicine 11/01/21 11/25/21 Carmina Varela MD [address] [place] [address]105 PCP - General Internal Medicine 11/26/21 Nancy Elliott, DO Internal Medicine 01/28/14 08/31/22 Db Martino MD [address] [place] [address] Specialist Cardiology 09/01/22 Dario Ling [address] [place] [address] Specialist Pulmonology 09/01/22 documented as of this encounter
--- OUTSIDE RECORDS SUMMARY | 2024-08-28 19:29 | XMS_ITS | Encounter Summary ---
Author Organization [facility] Address [address] [place] [address] Care Team Providers Care Crester Name Role Phone Radha Mccray Primary Care Provider Unavailabl e Ariadne Colbarbarao Nancy DO Unavailable Unavailable Mariam[place]iak Colasacco Nancy DO Primary Care Pro vider Unavailable Shawanda Oliver MD Primary Care Provider Noah Gramajo Primary Care Provider [phone] Carmina Varela MD Primary Care Prov ider Db Martino MD Unavailable Unavailable Dario Ling Unavailable Unavailable Encounter Details Date Type Department Care Team Description 03/25/2016 Hospital Medical Records [address] [place] [address] [facility] Social History Tobacco Use Types Packs/Day Years [...] on filedocumented in this encounter Care Teams Crester Relationship Specialty Start Date End Date Radha Mccray PCP - General 01/28/14 06/25/20 Nancy Elliott DO PCP - General Internal Medicine 06/26/20 08/23/20 Shawanda Oliver MD PCP - General Internal Medicine 08/24/20 10/31/21 Noah Parks [address] [place] [address] PCP - General Internal Medicine 11/01/21 11/25/21 Carmina Varela MD [address] [place] [address] PCP - General Internal Medicine 11/26/21 Nancy Elliott, Internal Medicine 01/28/14 08/31/22 Db Martino MD [address] [place] [address] Specialist Cardiology 09/01/22 Dario Ling [address] [place] [address] Specialist Pulmonology 09/01/22 documented as of this encounter
--- OUTSIDE RECORDS SUMMARY | 2024-08-28 19:29 | XMS_ITS | Encounter Summary ---
Author Organization [facility] Address [address] [place] [address] Care Team Providers Care Commercial Interior Designer Name Role Phone Carmina Varela MD Primary Care Prov ider Db Martino MD Unavailable Unavailable Dario Ling Unavailable Unavailable Encounter Details Date Type Department Care Team Description 05/05/2023 Public Opinion Survey Taker Report Medical Records [address] [place] [address] Db Martino MD Social History Tobacco Use [...] on filedocumented in this encounter Care Teams Commercial Interior Designer Relationship Specialty Start Date End Date Carmina Varela MD [address] [place] [phone] PCP - General Internal Medicine 11/26/21 Db Martino MD [address] [place], [place] [address] Specialist Cardiology 09/01/22 Dario Ling [address] [place] [address] Specialist Pulmonology 09/01/22 documented as of this encounter
--- OUTSIDE RECORDS SUMMARY | 2024-08-28 19:29 | XMS_ITS | Encounter Summary ---
Author Organization [facility] Address [address] [place] [address] Care Team Providers Care Piano Teacher Name Role Phone Radha Mccray Primary Care Provider Unavailabl e Ariadne Colbarbarao Nancy DO Unavailable Unavailable Mariam[place]ak Colasacco Nancy DO Primary Care Pro vider Unavailable Shawanda Oliver MD Primary Care Provider Noah Gramajo Primary Care Provider [phone] Carmina Varela MD Primary Care Prov ider Db Martino MD Unavailable Unavailable Dario Ling Unavailable Unavailable Encounter Details Date Type Department Care Team Description 12/18/2015 Hospital Medical Records [address] [place] [address] [facility] Social History Tobacco Use Types Packs/Day Years [...] on filedocumented in this encounter Care Teams Piano Teacher Relationship Specialty Start Date End Date Radha Mccray PCP - General 01/28/14 06/25/20 Nancy Elliott DO PCP - General Internal Medicine 06/26/20 08/23/20 Shawanda Oliver MD PCP - General Internal Medicine 08/24/20 10/31/21 Noah Parks [address] [place] [address] PCP - General Internal Medicine 11/01/21 11/25/21 Carmina Varela MD [address] [place] [address] PCP - General Internal Medicine 11/26/21 Nancy Elliott, Internal Medicine 01/28/14 08/31/22 Db Martino MD [address] [place] [address] Specialist Cardiology 09/01/22 Dario Ling [address] [place] [address] Specialist Pulmonology 09/01/22 documented as of this encounter
--- OUTSIDE RECORDS SUMMARY | 2024-08-28 19:29 | XMS_ITS | Encounter Summary ---
Author Organization [facility] Address [address] [place] [address] Care Team Providers Care Flame Annealing Machine Setter Name Role Phone Radha Mccray Primary Care Provider Unavailabl e Krakowifranklin Colasacco, Nancy DO Unavailable Unavailable [place] Colasacco, Nancy DO Primary Care Pro vider Unavailable Shawanda Oliver MD Primary Care Provider Noah Gramajo Primary Care Provider [phone] Carmina Varela MD Primary Care Prov ider Db Martino MD Unavailable Unavailable Dario Ling Unavailable Unavailable Encounter Details Date Type Department Care Team Description 08/07/2014 Cable Installation Manager Report Medical Records [address] [place] [address] Db Martino MD Social History Tobacco Use [...] on filedocumented in this encounter Care Teams Flame Annealing Machine Setter Relationship Specialty Start Date End Date Radha Mccray PCP - General 01/28/14 06/25/20 Nancy Elliott DO PCP - General Internal Medicine 06/26/20 08/23/20 Shawanda Oliver MD PCP - General Internal Medicine 08/24/20 10/31/21 Noah Parks [address] [place] [address] PCP - General Internal Medicine 11/01/21 11/25/21 Carmina Varela MD [address] [place] [address] PCP - General Internal Medicine 11/26/21 Nancy Elliott, Internal Medicine 01/28/14 08/31/22 Db Martino MD [address] [place] [address] Specialist Cardiology 09/01/22 Dario Ling [address] [place] [address] Specialist Pulmonology 09/01/22 documented as of this encounter
--- OUTSIDE RECORDS SUMMARY | 2024-08-28 19:29 | XMS_ITS | Encounter Summary ---
Author Organization [facility] Address [address] [place] [address] Care Team Providers Care Singing Telegram Performer Name Role Phone Carmina Varela MD Primary Care Prov ider Db Martino MD Unavailable Unavailable Dario Ling Unavailable Unavailable Reason for Visit * Reason Comments E-prescribe Rx Request Encounter Details Date Type Department Care Team Description 09/21/2023 Refill Adult Medicine [address] [address] Rosa M Mcghee PA-C [address] [place] [address] E-prescribe Rx Request Social History Tobacco Use [...] uncontrolled documented in this encounter Care Teams Singing Telegram Performer Relationship Specialty Start Date End Date Carmina Varela MD [address] [place] [address] PCP - General Internal Medicine 11/26/21 Db Martino MD [address] [place] [address] Specialist Cardiology 09/01/22 Dario Ling [address] [place] [address] Specialist Pulmonology 09/01/22 documented as of this encounter
--- OUTSIDE RECORDS SUMMARY | 2024-08-28 19:29 | XMS_ITS | Encounter Summary ---
Author Organization [facility] Address [address] [place] [address] Care Team Providers Care Train Examiner Name Role Phone Ariadne Valdivia Nancy DO Primary Care Pro vider Unavailable Radha Mccray Primary Care Provider Unavailabl e Krakowiak Colasacco, Nancy DO Unavailable Unavailable Krakowiak Colasacco, Nancy DO Primary Care Pro vider Unavailable Shawanda Oliver MD Primary Care Provider Noah Gramajo Primary Care Provider [phone] Carmina Varela MD Primary Care Prov ider Db Martino MD Unavailable Unavailable Dario Ling Unavailable Unavailable Reason for Visit * Reason Onset Date Comments VNA Call 11/29/2013 Encounter Details Date Type Department Care Team Description 11/29/2013 Telephone Adult Medicine [address] [address] Nancy Elliott DO VNA Call Social History [...] VNA CALL Which VNA office is calling? [facility] Full name of caller: Ana Maria The caller is A nurse Is the caller at the patients home?: YES Reason for call: patient needs a refill of her celexa 20 mg 1 daily, Chronicity [place] Does caller need an urgent call back? Yes not urgent Was CONTACT Telephone # obtained above?: YES documented in this encounter Plan of Treatment Not on file documented as of this encounter Visit Diagnoses Not on filedocumented in this encounter Care Teams Train Examiner Relationship Specialty Start Date End Date Nancy Elliott DO PCP - General Internal Medicine 11/07/13 01/27/14 Radha Mccray PCP - General 01/28/14 06/25/20 Nancy Elliott DO PCP - General Internal Medicine 06/26/20 08/23/20 Shawanda Oliver MD PCP - General Internal Medicine 08/24/20 10/31/21 Noah Parks [address] [place] [address] PCP - General Internal Medicine 11/01/21 11/25/21 Carmina Varela MD [address] [place] [address] PCP - General Internal Medicine 11/26/21 Nancy Elliott DO Internal Medicine 01/28/14 08/31/22 Db Martino MD [address] [place] [address] Specialist Cardiology 09/01/22 Dario Ling [address] [place], [place] [phone] Specialist Pulmonology 09/01/22 documented as of this encounter
--- OUTSIDE RECORDS SUMMARY | 2024-08-28 19:29 | XMS_ITS | Encounter Summary ---
Author Organization [facility] Address [address] [place] [address] Care Team Providers Care Stock Ranch Supervisor Name Role Phone Radha Mccray Primary Care Provider Unavailabl e Krakoruslan Colasacco Nancy DO Unavailable Unavailable Krakowiak Colasacco, Nancy DO Primary Care Pro vider Unavailable Shawanda Oliver MD Primary Care Provider Noah Gramajo Primary Care Provider [phone] Carmina Varela MD Primary Care Prov ider Db Martino MD Unavailable Unavailable Dario Ling Unavailable Unavailable Encounter Details Date Type Department Care Team Description 08/16/2015 Double Backer Report Medical Records [address] [place] [address] Db Martino MD Social History Tobacco Use [...] on filedocumented in this encounter Care Teams Stock Ranch Supervisor Relationship Specialty Start Date End Date Radha Mccray PCP - General 01/28/14 06/25/20 Nancy Elliott DO PCP - General Internal Medicine 06/26/20 08/23/20 Shawanda Oliver MD PCP - General Internal Medicine 08/24/20 10/31/21 Noah Parks [address] [place] [address] PCP - General Internal Medicine 11/01/21 11/25/21 Carmina Varela MD [address] [place] [address] PCP - General Internal Medicine 11/26/21 Nancy Elliott, Internal Medicine 01/28/14 08/31/22 Db Martino MD [address] [place] [address] Specialist Cardiology 09/01/22 Dario Ling [address] [place] [address] Specialist Pulmonology 09/01/22 documented as of this encounter
--- OUTSIDE RECORDS SUMMARY | 2024-08-28 19:29 | XMS_ITS | Encounter Summary ---
Author Organization [facility] Address [address] [place] [address] Care Team Providers Care Doughnut Fryer Name Role Phone Radha Mccray Primary Care [...] Team Description 06/26/2014 Hospital Medical Records [address] [place] [address] Man Corado MD Social History Tobacco Use [...] on filedocumented in this encounter Care Teams Doughnut Fryer Relationship Specialty Start Date End Date Radha Mccray PCP - General 01/28/14 06/25/20 Nancy Elliott DO PCP - General Internal Medicine 06/26/20 08/23/20 Shawanda Oliver MD PCP - General Internal Medicine 08/24/20 10/31/21 Noah Parks [address] [place] [address] PCP - General Internal Medicine 11/01/21 11/25/21 Carmina Varela MD [address] [place] [address] PCP - General Internal Medicine 11/26/21 Nancy Elliott, Internal Medicine 01/28/14 08/31/22 Db Martino MD [address] [place] [address] Specialist Cardiology 09/01/22 Dario Ling [address] [place] [address] Specialist Pulmonology 09/01/22 documented as of this encounter
--- OUTSIDE RECORDS SUMMARY | 2024-08-28 19:29 | XMS_ITS | Clinical Summary ---
Author Organization [facility], Address [address] [place] [address] Phone Care Team Providers Care Leak Patcher Name Role Phone Carmina Varela MD Primary [...] Encounters Date Type Department Care Team Description 07/20/2024 9:50 AM EDT Office Visit [facility], [address] [place] [address] Marino Hopson MD Stage 3b [...] Care Team (Late st Contact Info) Description 11/01/2024 9:50 AM EDT Office Visit [facility], [address] [place] [address] Marino Hopson MD [address] [place] [address] Health Maintenance Due Date Last Done Comments Breast Cancer Screening 1954 Colorectal Cancer Screening: Annual FOBT 2003 Colorectal Cancer Screening: Colonoscopy 2003 Colorectal Cancer Screening: Sigmoidoscopy 2003 Hepatitis B Vaccine (1 of 3 - Risk 3-dose series) 2014 Diabetes: Ophthalmology Exam 04/21/2023 Diabetes: Pedal Pulse Checked 04/21/2023 Diabetes: Sensory Foot Exam 04/21/2023 Diabetes: Visual Foot Exam 04/21/2023 Diabetes: Hemoglobin A1C 07/20/2024 04/21/2024, 11/25 Influenza Vaccine (Season Ended) 2024 01/02/2023, 03/15/2022, 01/03/2021, Additional history exists Pneumococcal Vaccine: 50+ Ye ars (4 of 4 - PCV20 or PCV21) 09/30/2026 09/30/2021, 01/07/2017, 12/22/2011, Additional history exists Insurance [id number] One Care Dual SNP ([id number]) [place] [id number] Care Teams Leak Patcher Relationship Specialty Start Date End Date Carmina Varela MD PCP - General 12/03/22
--- OUTSIDE RECORDS SUMMARY | 2024-08-28 19:29 | XMS_ITS | Encounter Summary ---
Author Organization [facility] Address [address] [place] [address] Care Team Providers Care Rn Child Name Role Phone Radha Mccray Primary Care Provider Unavailabl e Mariamakoruslan Colbarbarao Nancy DO Unavailable Unavailable Krakowiak Colasacco Nancy DO Primary Care Pro vider Unavailable Shawanda Oliver MD Primary Care Provider Noah Gramajo Primary Care Provider [phone] Carmina Varela MD Primary Care Prov ider Db Martino MD Unavailable Unavailable Dario Ling Unavailable Unavailable Encounter Details Date Type Department Care Team Description 10/01/2014 Hospital Medical Records [address] [place] [address] Walt Lemos MD Social History Tobacco Use Types Packs/Day [...] filedocumented in this encounter Care Teams Rn Child Relationship Specialty Start Date End Date Radha Mccray PCP - General 01/28/14 06/25/20 Nancy Elliott DO PCP - General Internal Medicine 06/26/20 08/23/20 Shawanda Oliver MD PCP - General Internal Medicine 08/24/20 10/31/21 Noah Parks [address] [place] [address] PCP - General Internal Medicine 11/01/21 11/25/21 Carmina Varela MD [address] [place] [address] PCP - General Internal Medicine 11/26/21 Nancy Elliott, DO Internal Medicine 01/28/14 08/31/22 Db Martino MD [address] [place] [address] Specialist Cardiology 09/01/22 Dario Ling [address] [place] [address] Specialist Pulmonology 09/01/22 documented as of this encounter
--- OUTSIDE RECORDS SUMMARY | 2024-08-28 19:29 | XMS_ITS | Encounter Summary ---
Author Organization [facility] Address [address] [place] [address] Care Team Providers Care Funeral Assistant Name Role Phone Carmina Varela MD Primary Care Prov ider Db Martino MD Unavailable Unavailable Dario Ling Unavailable Unavailable Reason for Visit * Reason Onset Date Comments DME Request 04/16/2023 Encounter Details Date Type Department Care Team Description 04/16/2023 Telephone Adult Medicine [address] [address] Carmina Varela MD [address] [place] [address] DME Request Social History Tobacco Use Types [...] on filedocumented in this encounter Care Teams Funeral Assistant Relationship Specialty Start Date End Date Carmina Varela MD [address] [place] [address] PCP - General Internal Medicine 11/26/21 Db Martino MD [address] [place] [address] Specialist Cardiology 09/01/22 Dario Ling [address] [place] [address] Specialist Pulmonology 09/01/22 documented as of this encounter
--- OUTSIDE RECORDS SUMMARY | 2024-08-28 19:29 | XMS_ITS | Encounter Summary ---
Author Organization [facility] Address [address] [place] [address] Care Team Providers Care Pulley Man Name Role Phone Radha Mccray Primary Care Provider Unavailabl e Krakoruslan Colasacco Nancy DO Unavailable Unavailable Krakowiak Colasacco, Nancy DO Primary Care Pro vider Unavailable Shawanda Oliver MD Primary Care Provider Noah Gramajo Primary Care Provider [phone] Carmina Varela MD Primary Care Prov ider Db Martino MD Unavailable Unavailable Dario Ling Unavailable Unavailable Encounter Details Date Type Department Care Team Description 03/28/2016 Rn New Graduate Report Medical Records [address] [place] [address] Db Martino MD Social History Tobacco Use [...] on filedocumented in this encounter Care Teams Pulley Man Relationship Specialty Start Date End Date Radha Mccray PCP - General 01/28/14 06/25/20 Nancy Elliott DO PCP - General Internal Medicine 06/26/20 08/23/20 Shawanda Oliver MD PCP - General Internal Medicine 08/24/20 10/31/21 Noah aPrks [address] [place] [address] PCP - General Internal Medicine 11/01/21 11/25/21 Carmina Varela MD [address] [place] [address] PCP - General Internal Medicine 11/26/21 Nancy Elliott, Internal Medicine 01/28/14 08/31/22 Db Martino MD [address] [place] [address] Specialist Cardiology 09/01/22 Dario Ling [address] [place] [address] Specialist Pulmonology 09/01/22 documented as of this encounter
--- OUTSIDE RECORDS SUMMARY | 2024-08-28 19:29 | XMS_ITS | Encounter Summary ---
Author Organization [facility] Address [address] [place] [address] Care Team Providers Care Silk Brusher Name Role Phone Carmina Varela MD Primary Care Prov ider Db Martino MD Unavailable Unavailable Dario Ling Unavailable Unavailable Encounter Details Date Type Department Care Team Description 05/18/2023 Loan Review Analyst Report Medical Records [address] [place] [address] Dario Ling Social History Tobacco Use Types [...] on filedocumented in this encounter Care Teams Silk Brusher Relationship Specialty Start Date End Date Carmina Varela MD [address] [place] [address] PCP - General Internal Medicine 11/26/21 Db Martino MD [address] [place], [place] [phone] Specialist Cardiology 09/01/22 Dario Ling [address] [place] [address] Specialist Pulmonology 09/01/22 documented as of this encounter
--- OUTSIDE RECORDS SUMMARY | 2024-08-28 19:29 | XMS_ITS | Encounter Summary ---
Author Organization [facility] Address [address] [place] [address] Care Team Providers Care Bisque Grader Name Role Phone Radha Mccray Primary Care Provider Unavailabl e Krakoruslan Colasacco, Nancy DO Unavailable Unavailable Krakowiak Colasacco, Nancy DO Primary Care Pro vider Unavailable Shawanda Oliver MD Primary Care Provider Noah Gramajo Primary Care Provider [phone] Carmina Varela MD Primary Care Prov ider Db Martino MD Unavailable Unavailable Dario Ling Unavailable Unavailable Encounter Details Date Type Department Care Team Description 12/19/2015 Hospital Medical Records [address] [place] [address] Zack Luevano Social History Tobacco Use Types [...] on filedocumented in this encounter Care Teams Bisque Grader Relationship Specialty Start Date End Date Radha Mccray PCP - General 01/28/14 06/25/20 Nancy Elliott DO PCP - General Internal Medicine 06/26/20 08/23/20 Shawanda Oliver MD PCP - General Internal Medicine 08/24/20 10/31/21 Noah Parks [address] [place] [address] PCP - General Internal Medicine 11/01/21 11/25/21 Carmina Varela MD [address] [place] [address] PCP - General Internal Medicine 11/26/21 Nancy Elliott, DO Internal Medicine 01/28/14 08/31/22 Db Martino MD [address] [place] [address] Specialist Cardiology 09/01/22 Dario Ling [address] [place] [address] Specialist Pulmonology 09/01/22 documented as of this encounter
--- OUTSIDE RECORDS SUMMARY | 2024-08-28 19:29 | XMS_ITS | Encounter Summary ---
Author Organization [facility] Address [address] [place] [address] Care Team Providers Care Investigative Agent Name Role Phone Radha Mccray Primary Care Provider Unavailabl e Krakoruslan Colasacco, Nancy DO Unavailable Unavailable [place]rakowiak Colasacco, Nancy DO Primary Care Pro vider Unavailable Shawanda Oliver MD Primary Care Provider Noah Gramajo Primary Care Provider [phone] Carmina Varela MD Primary Care Prov ider Db Martino MD Unavailable Unavailable Dario Ling Unavailable Unavailable Encounter Details Date Type Department Care Team Description 12/14/2014 Inside Sales Report Medical Records [address] [place] [address] Db Martino MD Social History Tobacco Use [...] on filedocumented in this encounter Care Teams Investigative Agent Relationship Specialty Start Date End Date Radha Mccray PCP - General 01/28/14 06/25/20 Nancy Elliott DO PCP - General Internal Medicine 06/26/20 08/23/20 Shawanda Oliver MD PCP - General Internal Medicine 08/24/20 10/31/21 Naoh Parks [address] [place] [address] PCP - General Internal Medicine 11/01/21 11/25/21 Carmina Varela MD [address] [place] [address] PCP - General Internal Medicine 11/26/21 Nancy Elliott, Internal Medicine 01/28/14 08/31/22 Db Martino MD [address] [place] [address] Specialist Cardiology 09/01/22 Dario Lnig [address] [place] [address] Specialist Pulmonology 09/01/22 documented as of this encounter
--- OUTSIDE RECORDS SUMMARY | 2024-08-28 19:29 | XMS_ITS | Encounter Summary ---
Author Organization [facility] Address [address] [place] [address] Care Team Providers Care Visual Basic .Net Developer Name Role Phone Carmina Varela MD Primary Care Prov ider Db Martino MD Unavailable Unavailable Dario Ling Unavailable Unavailable Encounter Details Date Type Department Care Team Description 08/21/2023 Orders Only Medical Records [address] [place] [address] Padmini Hoffman MD Social History Tobacco Use Types Packs/Day [...] Name Priority Date/Time Associated Diagnosis Comments OUTSIDE EYE EXAM Routine 08/11/2023 documented in this encounter Results * OUTSIDE EYE EXAM (08/11/2023) Padmini Hoffman MD PROCEDURES documented in this encounter Visit Diagnoses Not on filedocumented in this encounter Care Teams Visual Basic .Net Developer Relationship Specialty Start Date End Date Carmina aVrela MD [address] [place], [place] [phone] PCP - General Internal Medicine 11/26/21 Db Martino MD [address] [place] [address] Specialist Cardiology 09/01/22 Dario Ling [address] [place] [address] Specialist Pulmonology 09/01/22 documented as of this encounter
--- OUTSIDE RECORDS SUMMARY | 2024-08-28 19:29 | XMS_ITS | Encounter Summary ---
Author Organization [facility] Address [address] [place] [address] Care Team Providers Care Freelance Copywriter Name Role Phone Carmina Varela MD Primary Care Prov ider Db Martino MD Unavailable Unavailable Dario Ling Unavailable Unavailable Encounter Details Date Type Department Care Team Description 10/20/2023 Hospital Medical Records [address] [place] [address] Social History Tobacco Use Types Packs/Day Years [...] on filedocumented in this encounter Care Teams Freelance Copywriter Relationship Specialty Start Date End Date Carmina Varela MD [address] [place] [address] [phone] PCP - General Internal Medicine 11/26/21 Db Martino MD [address] [place] [address] Specialist Cardiology 09/01/22 Dario Ling [address] [place], [place] [phone] Specialist Pulmonology 09/01/22 documented as of this encounter
--- OUTSIDE RECORDS SUMMARY | 2024-08-28 19:29 | XMS_ITS | Encounter Summary ---
Author Organization [facility] Address [address] [place] [address] Care Team Providers Care E Commerce Web Developer Name Role Phone Radha Mccray Primary Care Provider Unavailabl e Krakowifranklin Colasacco, Nancy DO Unavailable Unavailable Krakowiak Colasacco, Nancy DO Primary Care Pro vider Unavailable Shawanda Oliver MD Primary Care Provider Noah Gramajo Primary Care Provider [phone] Carmina Varela MD Primary Care Prov ider Db Martino MD Unavailable Unavailable Dario Ling Unavailable Unavailable Encounter Details Date Type Department Care Team Description 07/04/2014 Communications Project Manager Report Medical Records [address] [place] [address] Man Corado MD Social History Tobacco Use [...] on filedocumented in this encounter Care Teams E Commerce Web Developer Relationship Specialty Start Date End Date Radha Mccray PCP - General 01/28/14 06/25/20 Nancy Elliott DO PCP - General Internal Medicine 06/26/20 08/23/20 Shawanda Oliver MD PCP - General Internal Medicine 08/24/20 10/31/21 Noah Parks [address] [place] [address] PCP - General Internal Medicine 11/01/21 11/25/21 Carmina Varela MD [address] [place] [address] PCP - General Internal Medicine 11/26/21 Nancy Elliott, Internal Medicine 01/28/14 08/31/22 Db Martino MD [address] [place] [address] Specialist Cardiology 09/01/22 Dario Ling [address] [place] [address] Specialist Pulmonology 09/01/22 documented as of this encounter
--- OUTSIDE RECORDS SUMMARY | 2024-08-28 19:29 | XMS_ITS | Encounter Summary ---
Author Organization [facility] Address [address] [place] [address] Care Team Providers Care Cell Attendant Helper Name Role Phone Radha Mccray Primary Care Provider Unavailabl e Mariamakoruslan Colbarrettcco Nancy DO Unavailable Unavailable Krakowiak Colasacco, Nancy DO Primary Care Pro vider Unavailable Shawanda Oliver MD Primary Care Provider Noah Gramajo Primary Care Provider [phone] Carmina Varela MD Primary Care Prov ider Db Martino MD Unavailable Unavailable Dario Ling Unavailable Unavailable Encounter Details Date Type Department Care Team Description 03/05/2016 Rig Welder Report Medical Records [address] [place] [address] Sandoval Patton MD Social History Tobacco Use [...] on filedocumented in this encounter Care Teams Cell Attendant Helper Relationship Specialty Start Date End Date Radha Mccray PCP - General 01/28/14 06/25/20 Nancy Elliott DO PCP - General Internal Medicine 06/26/20 08/23/20 Shawanda Oliver MD PCP - General Internal Medicine 08/24/20 10/31/21 Noah Parks [address] [place] [address] PCP - General Internal Medicine 11/01/21 11/25/21 Carmina Varela MD [address] [place] [address] PCP - General Internal Medicine 11/26/21 Nancy Elliott DO Internal Medicine 01/28/14 08/31/22 Db Martino MD [address] [place] [address] Specialist Cardiology 09/01/22 Dario Ling [address] [place] [address] Specialist Pulmonology 09/01/22 documented as of this encounter
--- OUTSIDE RECORDS SUMMARY | 2024-08-28 19:29 | XMS_ITS | Encounter Summary ---
Author Organization [facility] Address [address] [place] [address] Care Team Providers Care Training Professional Name Role Phone Carmina Varela MD Primary Care Prov ider Db Martino MD Unavailable Unavailable Dario Ling Unavailable Unavailable Reason for Visit * Reason Onset Date Comments Medication 12/15/2023 Encounter Details Date Type Department Care Team Description 12/15/2023 Refill Gastroenterology - [place] [address] [facility] [address] [place] [id number] Jericho Vargas DO [address] [facility] [address] [facility] [place] [place] [address] Medication Social History Tobacco Use Types Packs/Day [...] on filedocumented in this encounter Care Teams Training Professional Relationship Specialty Start Date End Date Carmina Varela MD [address] [place] [address] [phone] PCP - General Internal Medicine 11/26/21 Db Martino MD [address] [place] [address] Specialist Cardiology 09/01/22 Dario Ling [address] [place] [address] Specialist Pulmonology 09/01/22 documented as of this encounter
--- OUTSIDE RECORDS SUMMARY | 2024-08-28 19:29 | XMS_ITS | Encounter Summary ---
Author Organization [facility] Address [address] [place] [address] Care Team Providers Care Head Animal Trainer Name Role Phone Radha Mccray Primary Care Provider Unavailabl e Mariamakoruslan Colasacco Nancy DO Unavailable Unavailable Krakowiak Colasacco, Nancy DO Primary Care Pro vider Unavailable Shawanda Oliver MD Primary Care Provider Noah Gramajo Primary Care Provider [phone] Carmina Varela MD Primary Care Prov ider Db Martino MD Unavailable Unavailable Dario Ling Unavailable Unavailable Encounter Details Date Type Department Care Team Description 05/24/2015 Sign Painter Apprentice Report Medical Records [address] [place] [address] Db Martino MD Social History Tobacco Use [...] on filedocumented in this encounter Care Teams Head Animal Trainer Relationship Specialty Start Date End Date Radha Mccray PCP - General 01/28/14 06/25/20 Nancy Elliott DO PCP - General Internal Medicine 06/26/20 08/23/20 Shawanda Oliver MD PCP - General Internal Medicine 08/24/20 10/31/21 Noah Parks [address] [place] [address] PCP - General Internal Medicine 11/01/21 11/25/21 Carmina Varela MD [address] [place] [address] PCP - General Internal Medicine 11/26/21 Nancy Elliott, Internal Medicine 01/28/14 08/31/22 Db Martino MD [address] [place] [address] Specialist Cardiology 09/01/22 Dario Ling [address] [place] [address] Specialist Pulmonology 09/01/22 documented as of this encounter
--- OUTSIDE RECORDS SUMMARY | 2024-08-28 19:29 | XMS_ITS | Encounter Summary ---
Author Organization [facility] Address [address] [place] [address] Care Team Providers Care Berry Planter Name Role Phone Krakowiak Colasacco, Nancy DO Primary Care Pro vider Unavailable Radha Mccray Primary Care Provider Unavailabl e Krakowiak Colasacco, Nancy DO Unavailable Unavailable Krakowiak Colasacco, Nancy DO Primary Care Pro vider Unavailable Shawanda Oliver MD Primary Care Provider Noah Gramajo Primary Care Provider [phone] Carmina Varela MD Primary Care Prov ider Db Martino MD Unavailable Unavailable Dario Ling Unavailable Unavailable Encounter Details Date Type Department Care Team Description 01/03/2014 Home Health Certification Medical Records [address] [place] [address] Vna Social History Tobacco Use Types Packs/Day Years [...] on filedocumented in this encounter Care Teams Berry Planter Relationship Specialty Start Date End Date Krakowifranklin Colasacco, Nancy, DO PCP - General Internal Medicine 11/07/13 01/27/14 Radha Mccray PCP - General 01/28/14 06/25/20 Nancy Elliott, PCP - General Internal Medicine 06/26/20 08/23/20 Shawanda Oliver MD PCP - General Internal Medicine 08/24/20 10/31/21 Noah Parks [address] [place] [address] PCP - General Internal Medicine 11/01/21 11/25/21 Carmina Varela MD [address] [place] [address] PCP - General Internal Medicine 11/26/21 Nancy Elliott, DO Internal Medicine 01/28/14 08/31/22 Db Martino MD [address] [place] [address] Specialist Cardiology 09/01/22 Dario Ling [address] [place] [address]45 Specialist Pulmonology 09/01/22 documented as of this encounter
--- OUTSIDE RECORDS SUMMARY | 2024-08-28 19:29 | XMS_ITS | Encounter Summary ---
Author Organization [facility] Address [address] [place] [address] Care Team Providers Care Shredding Specialist Name Role Phone Radha Mccray Primary Care Provider Unavailabl e Mariamakoruslan Colasacco Nancy DO Unavailable Unavailable Krakowiak Colasacco, Nancy DO Primary Care Pro vider Unavailable Shawanda Oliver MD Primary Care Provider Noah Gramajo Primary Care Provider [phone] Carmina Varela MD Primary Care Prov ider Db Martino MD Unavailable Unavailable Dario Ling Unavailable Unavailable Encounter Details Date Type Department Care Team Description 12/27/2015 Board Turner Report Medical Records [address] [place] [address] Db Martino MD Social History Tobacco Use [...] on filedocumented in this encounter Care Teams Shredding Specialist Relationship Specialty Start Date End Date Radha Mccray PCP - General 01/28/14 06/25/20 Nancy Elliott DO PCP - General Internal Medicine 06/26/20 08/23/20 Shawanda Oliver MD PCP - General Internal Medicine 08/24/20 10/31/21 Noah Parks [address] [place] [address] PCP - General Internal Medicine 11/01/21 11/25/21 Carmina Varela MD [address] [place] [address] PCP - General Internal Medicine 11/26/21 Nancy Elliott, Internal Medicine 01/28/14 08/31/22 Db Martino MD [address] [place] [address] Specialist Cardiology 09/01/22 Dario Ling [address] [place] [address] Specialist Pulmonology 09/01/22 documented as of this encounter
--- OUTSIDE RECORDS SUMMARY | 2024-08-28 19:29 | XMS_ITS | Encounter Summary ---
Author Organization [facility] Address [address] [place] [address] Care Team Providers Care Gas And Oil Checker Name Role Phone Radha Mccray Primary Care Provider Unavailabl e Ariadne Bartono Nancy DO Unavailable Unavailable Mariamakoruslan Woodscco Nancy DO Primary Care Pro vider Unavailable Shawanda Oliver MD Primary Care Provider Noah Gramajo Primary Care Provider [phone] Carmina Varela MD Primary Care Prov ider Db Martino MD Unavailable Unavailable Dario Ling Unavailable Unavailable Reason for Visit * Reason Onset Date Comments diabetes 03/14/2014 Encounter Details Date Type Department Care Team Description 03/14/2014 Telephone Adult Medicine [address] [address] Nancy Elliott DO diabetes Social History Tobacco Use Types Packs/Day Years [...] Telephone Encounter - Kathy Zavala R.N. - 03/14/2014 3:03 PM EST Pt is taking Humalog and not eating, she was 54 and came up to 79. She was instructed to eat 3 meals a day and call if she has any further lows. * Telephone Encounter - Virginia Gonzalez - 03/14/2014 1:52 PM EST Patient just took blood sugar and it was 55.... Normally in the 100 s Per patient. Feeling a littlelite- headed.please advise. documented in this encounter Plan of Treatment Not on file documented as of this encounter Visit Diagnoses Not on filedocumented in this encounter Care Teams Gas And Oil Checker Relationship Specialty Start Date End Date Radha Mccray PCP - General 01/28/14 06/25/20 Nancy Elliott DO PCP - General Internal Medicine 06/26/20 08/23/20 Shawanda Oliver MD PCP - General Internal Medicine 08/24/20 10/31/21 Noah Parks [address] [place] [address] PCP - General Internal Medicine 11/01/21 11/25/21 Carmina Varela MD [address] [place] [address] PCP - General Internal Medicine 11/26/21 Nancy Elliott DO Internal Medicine 01/28/14 08/31/22 Db Martino MD [address] [place] [address] Specialist Cardiology 09/01/22 Dario Ling [address] [place] [address] Specialist Pulmonology 09/01/22 documented as of this encounter
--- OUTSIDE RECORDS SUMMARY | 2024-08-28 19:29 | XMS_ITS | Encounter Summary ---
Author Organization [facility] Address [address] [place] [address] Care Team Providers Care Hand Stitcher Name Role Phone Carmina Varela MD Primary Care Prov ider Db Martino MD Unavailable Unavailable Dario Ling Unavailable Unavailable Encounter Details Date Type Department Care Team Description 07/06/2023 Warehouse Distribution Manager Report Medical Records [address] [place] [address] Mariel Arellano FNP Social History Tobacco Use [...] on filedocumented in this encounter Care Teams Hand Stitcher Relationship Specialty Start Date End Date Carmina Varela MD [address] [place] [address] PCP - General Internal Medicine 11/26/21 Db Martino MD [address] [place], [place] [phone] Specialist Cardiology 09/01/22 Dario Ling [address] [place] [address] Specialist Pulmonology 09/01/22 documented as of this encounter
--- OUTSIDE RECORDS SUMMARY | 2024-08-28 19:29 | XMS_ITS | Encounter Summary ---
Author Organization [facility] Address [address] [place] [address] Care Team Providers Care Stenciling Machine Tender Name Role Phone Radha Mccray Primary Care Provider Unavailabl e Mariamakoruslan Colbarbarao Nancy DO Unavailable Unavailable Krakowiak Colasacco, Nancy DO Primary Care Pro vider Unavailable Shawanda Oliver MD Primary Care Provider Noah Gramajo Primary Care Provider [phone] Carmina Varela MD Primary Care Prov ider Db Martino MD Unavailable Unavailable Dario Ling Unavailable Unavailable Encounter Details Date Type Department Care Team Description 03/24/2016 Hospital Medical Records [address] [place] [address] Mariel Arellano, RENÉ Social History Tobacco Use [...] on filedocumented in this encounter Care Teams Stenciling Machine Tender Relationship Specialty Start Date End Date Radha Mccray PCP - General 01/28/14 06/25/20 Nancy Elliott DO PCP - General Internal Medicine 06/26/20 08/23/20 Shawanda Oliver MD PCP - General Internal Medicine 08/24/20 10/31/21 Noah Parks [address] [place] [address] PCP - General Internal Medicine 11/01/21 11/25/21 Carmina Varela MD [address] [place] [address] PCP - General Internal Medicine 11/26/21 Nancy Elliott, Internal Medicine 01/28/14 08/31/22 Db Martino MD [address] [place] [address] Specialist Cardiology 09/01/22 Dario Ling [address] [place] [address] Specialist Pulmonology 09/01/22 documented as of this encounter
--- OUTSIDE RECORDS SUMMARY | 2024-08-28 19:29 | XMS_ITS | Encounter Summary ---
Author Organization [facility] Address [address] [place] [address] Care Team Providers Care Blocklayer Name Role Phone Radha Mccray Primary Care Provider Unavailabl e Ariadne Colbarbarao Nancy DO Unavailable Unavailable Krakowiak Colasacco Nancy DO Primary Care Pro vider Unavailable Shawanda Oliver MD Primary Care Provider Noah Gramajo Primary Care Provider [phone] Carmina Varela MD Primary Care Prov ider Db Martino MD Unavailable Unavailable Dario Ling Unavailable Unavailable Encounter Details Date Type Department Care Team Description 02/03/2014 Hospital Medical Records [address] [place] [address] [facility] Social History Tobacco Use Types Packs/Day [...] on filedocumented in this encounter Care Teams Blocklayer Relationship Specialty Start Date End Date Radha Mccray PCP - General 01/28/14 06/25/20 Nancy Elliott DO PCP - General Internal Medicine 06/26/20 08/23/20 Shawanda Oliver MD PCP - General Internal Medicine 08/24/20 10/31/21 Noah Parks [address] [place] [address] PCP - General Internal Medicine 11/01/21 11/25/21 Carmina Varela MD [address] [place] [address] PCP - General Internal Medicine 11/26/21 Nancy Elliott, Internal Medicine 01/28/14 08/31/22 Db Martino MD [address] [place] [address] Specialist Cardiology 09/01/22 Dario Ling [address] [place] [address] Specialist Pulmonology 09/01/22 documented as of this encounter
--- OUTSIDE RECORDS SUMMARY | 2024-08-28 19:29 | XMS_ITS | Encounter Summary ---
Author Organization [facility] Address [address] [place] [address] Care Team Providers Care Knife Grinder Name Role Phone Radha Mccray Primary Care Provider Unavailabl e Mariamakoruslan Colasacco Nancy DO Unavailable Unavailable Krakowiak Colasacco, Nancy DO Primary Care Pro vider Unavailable Shawanda Oliver MD Primary Care Provider Noah Gramajo Primary Care Provider Carmina Varela MD Primary Care Prov ider Db Martino MD Unavailable Unavailable Dario Ling Unavailable Unavailable Encounter Details Date Type Department Care Team Description 12/27/2015 Betting Agency Counter Clerk Report Medical Records [address] [place] [address] Db Martino MD Social History Tobacco Use [...] on filedocumented in this encounter Care Teams Knife Grinder Relationship Specialty Start Date End Date Radha Mccray PCP - General 01/28/14 06/25/20 Nancy Elliott DO PCP - General Internal Medicine 06/26/20 08/23/20 Shawanda Oliver MD PCP - General Internal Medicine 08/24/20 10/31/21 Noah Parks [address] [place] [address] PCP - General Internal Medicine 11/01/21 11/25/21 Carmina Varela MD [address] [place] [address] PCP - General Internal Medicine 11/26/21 Nancy Elliott, Internal Medicine 01/28/14 08/31/22 Db Martino MD [address] [place] [address] Specialist Cardiology 09/01/22 Dario Ling [address] [place] [address] Specialist Pulmonology 09/01/22 documented as of this encounter
--- OUTSIDE RECORDS SUMMARY | 2024-08-28 19:29 | XMS_ITS | Encounter Summary ---
Author Organization [facility] Address [address] [place] [address] Care Team Providers Care X Ray Technician Name Role Phone Radha Mccray Primary Care Provider Unavailabl e Krakoruslan Colbarrettcco, Nancy DO Unavailable Unavailable Mariamakowiak Colasacco, Nancy DO Primary Care Pro vider Unavailable Shawanda Oliver MD Primary Care Provider Noah Gramajo Primary Care Provider [phone] Carmina Varela MD Primary Care Prov ider Db Martino MD Unavailable Unavailable Dario Ling Unavailable Unavailable Reason for Visit * Reason Onset Date Comments medication problems 10/24/2014 Encounter Details Date Type Department Care Team Description 10/24/2014 Telephone Adult Medicine [address] [address] Nancy Elliott DO medication problems Social History [...] Notes * Telephone Encounter - Ebony Atkinson 10/25/2014 1:43 PM EDT Tried calling pharmacy, they are closed until 2 pm today will try again later * Telephone Encounter - Nancy Valdivia DO - 10/25/2014 11:46 AM EDT I believe the Combivent was refilled as previously filled, 2 puffs 4 times a day Lasix 20 mg once daily is her correct dose. * Telephone Encounter - Jayla Bolton - 10/24/2014 10:50 AM EDT What is the name of the medication patient is having a problem with?: combivent and lasix What is the problem?: pharmacy states wrong instructios for both Is the patient calling about the problem? NO If the patient is not the caller who is? [facility] Is this a NEW medication?: YES How long has the patient been taking this medication? New Who prescribed this medication for the patient? Dr calero Who is patients PCP?: dr calero Payor: [facility] FFS / Plan: FFS HMO $0 [place] [id number] / Product Type: MEDICAID RISK documented in this encounter Plan of Treatment Not on file documented as of this encounter Visit Diagnoses Not on filedocumented in this encounter Care Teams X Ray Technician Relationship Specialty Start Date End Date Radha Mccray PCP - General 01/28/14 06/25/20 Nancy Elliott DO PCP - General Internal Medicine 06/26/20 08/23/20 Shawanda Oliver MD PCP - General Internal Medicine 08/24/20 10/31/21 Noah Parks [address] [place] [address] PCP - General Internal Medicine 11/01/21 11/25/21 Carmina Varela MD [address] [place] [address] PCP - General Internal Medicine 11/26/21 Nancy Elliott, DO Internal Medicine 01/28/14 08/31/22 Db Martino MD [address] [place] [address] Specialist Cardiology 09/01/22 Dario Ling [address] [place] [address] Specialist Pulmonology 09/01/22 documented as of this encounter
--- OUTSIDE RECORDS SUMMARY | 2024-08-28 19:29 | XMS_ITS | Encounter Summary ---
Author Organization [facility] Address [address] [place] [address] Care Team Providers Care Salesperson Children'S Shoes Name Role Phone Radha Mccray Primary Care Provider Unavailabl e Stephon Elliottabela DO Unavailable Unavailable Mariamakoraviak Micko Nancy DO Primary Care Pro vider Unavailable Shawanda Oliver MD Primary Care Provider Noah Gramajo Primary Care Provider [phone] Carmina Varela MD Primary Care Prov ider Db Martino MD Unavailable Unavailable Dario Ling Unavailable Unavailable Encounter Details Date Type Department Care Team Description 04/02/2015 Hospital Medical Records [address] [place] [address] Social History Tobacco Use Types Packs/Day Years [...] on filedocumented in this encounter Care Teams Salesperson Children'S Shoes Relationship Specialty Start Date End Date Radha Mccray PCP - General 01/28/14 06/25/20 Nancy Elliott DO PCP - General Internal Medicine 06/26/20 08/23/20 Shawanda Oliver MD PCP - General Internal Medicine 08/24/20 10/31/21 Noah Parks [address] [place] [address] PCP - General Internal Medicine 11/01/21 11/25/21 Carmina Varela MD [address] [place] [address] PCP - General Internal Medicine 11/26/21 Nancy Elliott, Internal Medicine 01/28/14 08/31/22 Db Martino MD [address] [place] [address] Specialist Cardiology 09/01/22 Dario Ling [address] [place] [address] Specialist Pulmonology 09/01/22 documented as of this encounter
--- OUTSIDE RECORDS SUMMARY | 2024-08-28 19:29 | XMS_ITS | Encounter Summary ---
Author Organization [facility] Address [address] [place] [address] Care Team Providers Care Molecular Biology Scientist Name Role Phone ShaziaConnordavedexter Primary Care Provider Unavailabl e Krakowifranklin Colasacco, Nancy DO Unavailable Unavailable Krakowiak Colasacco, Nancy DO Primary Care Pro vider Unavailable Shawanda Oliver MD Primary Care Provider Noah Gramajo Primary Care Provider [phone] Carmina Varela MD Primary Care Prov ider Db Martino MD Unavailable Unavailable Dario Ling Unavailable Unavailable Encounter Details Date Type Department Care Team Description 05/23/2016 Reducing System Operator Report Medical Records [address] [place] [address] Sharla Rivera [address] [place] [address] Social History Tobacco Use Types Packs/Day Years [...] Scientist Relationship Specialty Start Date End Date Connor Mccraydavedexter PCP - General 01/28/14 06/25/20 Nancy Elliott DO PCP - General Internal Medicine 06/26/20 08/23/20 Shawanda Oliver MD PCP - General Internal Medicine 08/24/20 10/31/21 Noah Parks [address] [place] [address] PCP - General Internal Medicine 11/01/21 11/25/21 Carmina Varela MD [address] [place] [address] PCP - General Internal Medicine 11/26/21 Nancy Elliott DO Internal Medicine 01/28/14 08/31/22 Db Martino MD [address] [place] [address] Specialist Cardiology 09/01/22 Dario iLng [address] [place] [address] Specialist Pulmonology 09/01/22 documented as of this encounter
--- OUTSIDE RECORDS SUMMARY | 2024-08-28 19:29 | XMS_ITS | Encounter Summary ---
Author Organization [facility] Address [address] [place] [address] Care Team Providers Care Coal And Ash Supervisor Name Role Phone Radha Mccray Primary Care Provider Unavailabl e Mariamakoruslan Colasacco Nancy DO Unavailable Unavailable Krakowiak Colasacco, Nancy DO Primary Care Pro vider Unavailable Shawanda Oliver MD Primary Care Provider Noah Gramajo Primary Care Provider Carmina Varela MD Primary Care Prov ider Db Martino MD Unavailable Unavailable Dario Ling Unavailable Unavailable Encounter Details Date Type Department Care Team Description 02/11/2016 Imaging Tech Report Medical Records [address] [place] [address] Sandoval Patton MD Social History Tobacco Use [...] on filedocumented in this encounter Care Teams Coal And Ash Supervisor Relationship Specialty Start Date End Date Radha Mccray PCP - General 01/28/14 06/25/20 Nancy Elliott DO PCP - General Internal Medicine 06/26/20 08/23/20 Shawanda Oliver MD PCP - General Internal Medicine 08/24/20 10/31/21 Noah Parks [address] [place] [address]237 PCP - General Internal Medicine 11/01/21 11/25/21 Carmina Varela MD [address] [place] [address] PCP - General Internal Medicine 11/26/21 Nancy Elliott DO Internal Medicine 01/28/14 08/31/22 Db Martino MD [address] [place] [address] 87[address] Specialist Cardiology 09/01/22 Dario Ling [address] [place] [address] 265[address] Specialist Pulmonology 09/01/22 documented as of this encounter
--- OUTSIDE RECORDS SUMMARY | 2024-08-28 19:29 | XMS_ITS | Encounter Summary ---
Author Organization [facility] Address [address] [place] [address] Care Team Providers Care Verifying Machine Operator Name Role Phone Radha Mccray Primary Care Provider Unavailabl e Krakowiak Colasacco, Nancy DO Unavailable Unavailable Krakowiak Colasacco, Nancy DO Primary Care Pro vider Unavailable Shawanda Oliver MD Primary Care Provider Noah Gramajo Primary Care Provider [phone] Carmina Varela MD Primary Care Prov ider Db Martino MD Unavailable Unavailable Dario Ling Unavailable Unavailable Encounter Details Date Type Department Care Team Description 02/15/2014 Industrial Services Worker Report Medical Records [address] [place] [address] Db Martino MD Social History Tobacco Use [...] on filedocumented in this encounter Care Teams Verifying Machine Operator Relationship Specialty Start Date End Date Radha Mccray PCP - General 01/28/14 06/25/20 Nancy Elliott DO PCP - General Internal Medicine 06/26/20 08/23/20 Shawanda Oliver MD PCP - General Internal Medicine 08/24/20 10/31/21 Noah Parks [address] [place] [address] PCP - General Internal Medicine 11/01/21 11/25/21 Carmina Varela MD [address] [place] [address] 32259 PCP - General Internal Medicine 11/26/21 Nancy Elliott DO Internal Medicine 01/28/14 08/31/22 Db Martino MD [address] [place] [address] 20460 Specialist Cardiology 09/01/22 Dario Ling [address] [place] [address] 25274 Specialist Pulmonology 09/01/22 documented as of this encounter
--- OUTSIDE RECORDS SUMMARY | 2024-08-28 19:29 | XMS_ITS | Encounter Summary ---
Author Organization [facility] Address [address] [place] [address] Care Team Providers Care Supervisor Hanging And Trimming Name Role Phone Radha cMcray Primary Care Provider Unavailabl e Mariamakoruslan Colbarrettcco Nancy DO Unavailable Unavailable Krakowiak Colasacco, Nancy DO Primary Care Pro vider Unavailable Shawanda Oliver MD Primary Care Provider Noah Gramajo Primary Care Provider [phone] Carmina Varela MD Primary Care Prov ider Db Martino MD Unavailable Unavailable Dario Ling Unavailable Unavailable Encounter Details Date Type Department Care Team Description 03/29/2015 Hospital Medical Records [address] [place] [address] Jaycob Reza Social History Tobacco Use Types [...] on filedocumented in this encounter Care Teams Supervisor Hanging And Trimming Relationship Specialty Start Date End Date Radha Mccray PCP - General 01/28/14 06/25/20 Nancy Elliott DO PCP - General Internal Medicine 06/26/20 08/23/20 Shawanda Oliver MD PCP - General Internal Medicine 08/24/20 10/31/21 Noah Parks [address] [place] [address]355 PCP - General Internal Medicine 11/01/21 11/25/21 Carmina Varela MD [address] [place] [address] 25744 PCP - General Internal Medicine 11/26/21 Nancy Elliott, DO Internal Medicine 01/28/14 08/31/22 Db Martino MD [address] [place] [address] 78351 Specialist Cardiology 09/01/22 Dario Ling [address] [place] [address] 19014 Specialist Pulmonology 09/01/22 documented as of this encounter
--- OUTSIDE RECORDS SUMMARY | 2024-08-28 19:29 | XMS_ITS | Encounter Summary ---
Author Organization [facility] Address [address] [place] [address] Care Team Providers Care Education Technician Name Role Phone Radha Mccray Primary Care Provider Unavailabl e Krakoruslan Colasacco Nancy DO Unavailable Unavailable Krakowiak Colasacco, Nancy DO Primary Care Pro vider Unavailable Shawanda Oliver MD Primary Care Provider Noah Gramajo Primary Care Provider [phone] Carmina Varela MD Primary Care Prov ider Db Martino MD Unavailable Unavailable Dario Ling Unavailable Unavailable Encounter Details Date Type Department Care Team Description 03/28/2015 Hospital Medical Records [address] [place] [address] Man Corado MD Social History Tobacco Use [...] on filedocumented in this encounter Care Teams Education Technician Relationship Specialty Start Date End Date Radha Mccray PCP - General 01/28/14 06/25/20 Nancy Elliott DO PCP - General Internal Medicine 06/26/20 08/23/20 Shawanda Oliver MD PCP - General Internal Medicine 08/24/20 10/31/21 Noah Parks [address] [place] [address] PCP - General Internal Medicine 11/01/21 11/25/21 Carmina Varela MD [address] [place] [address]95 PCP - General Internal Medicine 11/26/21 Nancy Elliott, Internal Medicine 01/28/14 08/31/22 Db Martino MD [address] [place] [address] 68188 Specialist Cardiology 09/01/22 Dario Ling [address] [place] [address]20 Specialist Pulmonology 09/01/22 documented as of this encounter
--- OUTSIDE RECORDS SUMMARY | 2024-08-28 19:29 | XMS_ITS | Encounter Summary ---
Author Organization [facility] Address [address] [place] [address] Care Team Providers Care Rug Designer Name Role Phone Radha Mccray Primary Care Provider Unavailabl e Ariadne Bartono Nancy DO Unavailable Unavailable Mariamakowiak asacco, Nancy DO Primary Care Pro vider Unavailable Shawanda Oliver MD Primary Care Provider Noah Gramajo Primary Care Provider [phone] Carmina Varela MD Primary Care Prov ider Db Martino MD Unavailable Unavailable Dario Ling Unavailable Unavailable Encounter Details Date Type Department Care Team Description 07/24/2014 Release of Information Medical Records [address] [place] [address] Abstract, Provider Social History Tobacco Use Types [...] on filedocumented in this encounter Care Teams Rug Designer Relationship Specialty Start Date End Date Radha Mccray PCP - General 01/28/14 06/25/20 Nancy Elliott DO PCP - General Internal Medicine 06/26/20 08/23/20 Shawanda Oliver MD PCP - General Internal Medicine 08/24/20 10/31/21 Noah Parks [address] [place] [address] PCP - General Internal Medicine 11/01/21 11/25/21 Carmina Varela MD [address] [place] [address] PCP - General Internal Medicine 11/26/21 Nancy Elliott, Internal Medicine 01/28/14 08/31/22 Db Martino MD [address] [place] [address]82 Specialist Cardiology 09/01/22 Dario Ling [address] [place] [address] Specialist Pulmonology 09/01/22 documented as of this encounter
--- OUTSIDE RECORDS SUMMARY | 2024-08-28 19:29 | XMS_ITS | Encounter Summary ---
Author Organization [facility] Address [address] [place] [address] Care Team Providers Care Elocution Teacher Name Role Phone Radha Mccray Primary Care Provider Unavailabl e Ariadne Bartono Nancy DO Unavailable Unavailable Mariamakoraviak Chuckcco Nancy DO Primary Care Pro vider Unavailable Shawanda Oliver MD Primary Care Provider Noah Gramajo Primary Care Provider [phone] Carmina Varela MD Primary Care Prov ider Db Martino MD Unavailable Unavailable Dario Ling Unavailable Unavailable Encounter Details Date Type Department Care Team Description 03/02/2015 Transfer Records Medical Records [address] [place], [place] [address] [place] [address] Social History Tobacco Use Types Packs/Day Years [...] on filedocumented in this encounter Care Teams Elocution Teacher Relationship Specialty Start Date End Date Radha Mccray PCP - General 01/28/14 06/25/20 Nancy Elliott DO PCP - General Internal Medicine 06/26/20 08/23/20 Shawanda Oliver MD PCP - General Internal Medicine 08/24/20 10/31/21 Noah Parks [address] [place] [address] PCP - General Internal Medicine 11/01/21 11/25/21 Carmina Varela MD [address] [place] [address]3032 PCP - General Internal Medicine 11/26/21 Nancy Elliott, DO Internal Medicine 01/28/14 08/31/22 Db Martino MD [address] [place] [address] Specialist Cardiology 09/01/22 Dario Ling [address] [place] [address] 32931 Specialist Pulmonology 09/01/22 documented as of this encounter
--- OUTSIDE RECORDS SUMMARY | 2024-08-28 19:29 | XMS_ITS | Encounter Summary ---
Author Organization [facility] Address [address] [place] [address] Care Team Providers Care Receivables Specialist Name Role Phone Carmina Varela MD Primary Care Prov ider Db Martino MD Unavailable Unavailable Dario Ling Unavailable Unavailable Encounter Details Date Type Department Care Team Description 08/06/2023 Product Development Specialist Report Medical Records [address] [place] [address] Dario Ling Social History Tobacco Use Types [...] on filedocumented in this encounter Care Teams Receivables Specialist Relationship Specialty Start Date End Date Carmina Varela MD [address] [place] [address]65 PCP - General Internal Medicine 11/26/21 Db Martino MD [address] [place], [place] [phone] Specialist Cardiology 09/01/22 Dario Ling [address] [place] [address] Specialist Pulmonology 09/01/22 documented as of this encounter
--- OUTSIDE RECORDS SUMMARY | 2024-08-28 19:29 | XMS_ITS | Encounter Summary ---
Author Organization [facility] Address [address] [place] [address] Care Team Providers Care Doorperson Name Role Phone Radha Mccray Primary Care Provider Unavailabl e Ariadne Colbarbarao Nancy DO Unavailable Unavailable Krakowiak Colasacco Nancy DO Primary Care Pro vider Unavailable Shawanda Oliver MD Primary Care Provider Noah Gramajo Primary Care Provider [phone] Carmina Varela MD Primary Care Prov ider Db Martino MD Unavailable Unavailable Dario Ling Unavailable Unavailable Encounter Details Date Type Department Care Team Description 12/18/2014 Hospital Medical Records [address] [place] [address] [facility] Social History Tobacco [...] on filedocumented in this encounter Care Teams Doorperson Relationship Specialty Start Date End Date Radha Mccray PCP - General 01/28/14 06/25/20 Nancy Elliott DO PCP - General Internal Medicine 06/26/20 08/23/20 Shawanda Oliver MD PCP - General Internal Medicine 08/24/20 10/31/21 Noah Parks [address] [place] [address] PCP - General Internal Medicine 11/01/21 11/25/21 Carmina Varela MD [address] [place] [address] PCP - General Internal Medicine 11/26/21 Nancy Elliott, Internal Medicine 01/28/14 08/31/22 Db Martino MD [address] [place] [address] 51482 Specialist Cardiology 09/01/22 Dario Ling [address] [place] [address] 61387 Specialist Pulmonology 09/01/22 documented as of this encounter
--- OUTSIDE RECORDS SUMMARY | 2024-08-28 19:30 | XMS_ITS | Encounter Summary ---
Author Organization [facility] Address [address] [place] [address] Care Team Providers Care Coil Winder Hand Name Role Phone Radha Mccray Primary Care Provider Unavailabl e Nancy Elliott DO Unavailable Unavailable Nancy Elliott DO Primary Care Pro vider Unavailable Shawanda Oliver MD Primary Care Provider oNah Gramajo Primary Care Provider [phone] Carmina Varela MD Primary Care Prov ider Db Martino MD Unavailable Unavailable Dario Ling Unavailable Unavailable Reason for Referral * Non JEFFERY (Priority) - Authorized/Booked Specialty Diagnoses / Procedures Referred By Mitra pelaez Referred To Contact Endocrinology Procedures REFERRAL TO ENDOCRINOLOGY Nancy Elliott DO [address] [place] [address] Endo/[facility]ann[facility] [address] [place] [address] Referral ID Status Reason Start Date Expiration Date V isits Requested Visits Authorized [id number] Authorized/B ooked 10/06/2018 10/06/2019 1 1 * EXTERNAL (Routine) - Closed Specialty Diagnoses / Procedures Referred By Mitra t Referred To Contact Nephrology Procedures REFERRAL TO NEPHROLOGY Nancy Elliott DO [address] [place] [address] External Nephrology Referral ID Status Reason Start Date Expiration Date V isits Requested Visits Authorized SEE REVIEW ON 10/06/2018 Closed 10/06/2018 1 1 Encounter Details Date Type Department Care Team Description 10/06/2018 Orders Only Adult Medicine [address] [address] Nancy Elliott DO Social History Tobacco Use [...] on filedocumented in this encounter Care Teams Coil Winder Hand Relationship Specialty Start Date End Date Radha Mccray PCP - General 01/28/14 06/25/20 Nancy Elliott DO PCP - General Internal Medicine 06/26/20 08/23/20 Shawanda Oliver MD PCP - General Internal Medicine 08/24/20 10/31/21 Noah Parks [address] [place] [address] 145[address] PCP - General Internal Medicine 11/01/21 11/25/21 Carmina Varela MD [address] [place] [address] PCP - General Internal Medicine 11/26/21 Nancy Elliott DO Internal Medicine 01/28/14 08/31/22 Db Martino MD [address] [place] [address] [place] [address] Specialist Cardiology 09/01/22 Dario Ling [address] [place] [address] Specialist Pulmonology 09/01/22 documented as of this encounter
--- OUTSIDE RECORDS SUMMARY | 2024-08-28 19:30 | XMS_ITS | Encounter Summary ---
Author Organization [facility] Address [address] [place] [address] Care Team Providers Care Glory Hole Tender Name Role Phone Nancy Elliott DO Unavailable Unavailable Carmina Varela MD Primary Care Prov ider Db Martino MD Unavailable Unavailable Dario Ling Unavailable Unavailable Encounter Details Date Type Department Care Team Description 08/14/2022 Paleontological Helper Report Medical Records [address] [place] [address] Db Martino MD Social History Tobacco Use [...] on filedocumented in this encounter Care Teams Glory Hole Tender Relationship Specialty Start Date End Date Carmina Varela MD [address] [place] [address] [phone] PCP - General Internal Medicine 11/26/21 Nancy Elliott DO Internal Medicine 01/28/14 08/31/22 Db Martino MD [address] [place] [address] Specialist Cardiology 09/01/22 Dario Ling [address] [place] [address] Specialist Pulmonology 09/01/22 documented as of this encounter
--- OUTSIDE RECORDS SUMMARY | 2024-08-28 19:30 | XMS_ITS | Encounter Summary ---
Author Organization [facility] Address [address] [place] [address] Care Team Providers Care Group Insurance Special Agent Name Role Phone Radha Mccray Primary Care Provider Unavailabl e Mariamakoruslan Colbarrettcco Nancy DO Unavailable Unavailable Krakowiak Colasacco Nancy DO Primary Care Pro vider Unavailable Shawanda Oliver MD Primary Care Provider Noah Gramajo Primary Care Provider [phone] Carmina Varela MD Primary Care Prov ider Db Martino MD Unavailable Unavailable Dario Ling Unavailable Unavailable Encounter Details Date Type Department Care Team Description 04/16/2018 Hospital Medical Records [address] [place] [address] Abstract, Provider Social History Tobacco Use Types [...] on filedocumented in this encounter Care Teams Group Insurance Special Agent Relationship Specialty Start Date End Date Radha Mccray PCP - General 01/28/14 06/25/20 Nancy Elliott DO PCP - General Internal Medicine 06/26/20 08/23/20 Shawanda Oliver MD PCP - General Internal Medicine 08/24/20 10/31/21 Noah Parks [address] [place] [address] PCP - General Internal Medicine 11/01/21 11/25/21 Carmina Varela MD [address] [place] [address] PCP - General Internal Medicine 11/26/21 Nancy Elliott, Internal Medicine 01/28/14 08/31/22 Db Martino MD [address] [place] [address] Specialist Cardiology 09/01/22 Dario Ling [address] [place] [address] Specialist Pulmonology 09/01/22 documented as of this encounter
--- OUTSIDE RECORDS SUMMARY | 2024-08-28 19:30 | XMS_ITS | Encounter Summary ---
Author Organization [facility] Address [address] [place] [address] Care Team Providers Care Delivery And Installation Subcontractor Name Role Phone Nancy Elliott DO Unavailable Unavailable Carmina Varela MD Primary Care Prov ider Db Martino MD Unavailable Unavailable Dario Ling Unavailable Unavailable Encounter Details Date Type Department Care Team Description 08/21/2022 Orders Only Adult Medicine [facility] [address] [place] [address] Carmina Varela MD [address] [place] [address]41 Preoperative examination; Screening for deficiency anemia Social [...] 10.8 x10-3/uL 08/29/2022 12:51 PM EDT [facility] RED BLOOD COUNT 5.0(H) 3.8 - 4.8 x10-6/uL 08/29/2022 12:51 PM EDT [facility] Hemoglobin 15.0 11.5 - 16.0 g/dL 08/29/2022 12:51 PM EDT [facility] Hematocrit 47.1(H) 35 - 47 % 08/29/2022 12:51 PM EDT [facility] MEAN CORPUSCULAR VOLUME 95.2 79 - 98 fL 08/29/2022 12:51 PM EDT [facility] MEAN CORPUSCULAR HEMOGLOBIN 30.3 27 - 32 pg 08/29/2022 12:51 PM EDT [facility] MEAN CORPUSCULAR HGB CONC 31.8(L) 32 - 37 g/dL 08/29/2022 12:51 PM EDT [facility] RED CELL DISTRIBUTION WIDTH 15.8(H) 11 - 15 % 08/29/2022 12:51 PM EDT [facility] PLT COUNT 156 130 - 400 x10-3/uL 08/29/2022 12:51 PM EDT [facility] MEAN PLATELET VOLUME 12.7(H) 7 - 11 fL 08/29/2022 12:51 PM EDT [facility] NRBC % AUTO 0.0 <1 % 08/29/2022 12:51 PM EDT [facility] NEUTROPHILS % 46.9 % 08/29/2022 12:51 PM EDT [facility] LYMPH % 42.1 % 08/29/2022 12:51 PM EDT [facility] MONO % 6.2 % 08/29/2022 12:51 PM EDT [facility] EOS % 3.4 % 08/29/2022 12:51 PM EDT [facility] BASO % 1.2 % 08/29/2022 12:51 PM EDT [facility] IMMATURE GRANULOCYTES % 0.2 % 08/29/2022 12:51 [...] Release to patient->Immediate Carmina Martins MD [facility] documented in this encounter Visit Diagnoses [...] disorders documented in this encounter Care Teams Delivery And Installation Subcontractor Relationship Specialty Start Date End Date Carmina Varela MD [address] [place] [address] PCP - General Internal Medicine 11/26/21 Nancy Elliott, DO Internal Medicine 01/28/14 08/31/22 Db Martino MD [address] [place] [address] Specialist Cardiology 09/01/22 Dario Ling [address] [place], [place] [phone] Specialist Pulmonology 09/01/22 documented as of this encounter
--- OUTSIDE RECORDS SUMMARY | 2024-08-28 19:30 | XMS_ITS | Encounter Summary ---
Author Organization [facility] Address [address] [place] [address] Care Team Providers Care Sales Promotion Director Name Role Phone Shazia Radha Primary Care Provider Unavailabl e Nancy Elliott DO Unavailable Unavailable Stephon Elliottabela DO Primary Care Pro vider Unavailable Shawanda Oliver MD Primary Care Provider Noah Gramajo Primary Care Provider [phone] Carmina Varela MD Primary Care Prov ider Db Martino MD Unavailable Unavailable Dario Ling Unavailable Unavailable Reason for Visit * Reason Onset Date Comments Faxed Order 01/18/2018 Encounter Details Date Type Department Care Team Description 01/18/2018 Telephone Adult Medicine [address] [address] Nancy Elliott DO Faxed Order Social History [...] Please sign and fax back orders to [facility] Fax [phone] documented in this encounter Plan of Treatment Not on file documented as of this encounter Visit Diagnoses Not on filedocumented in this encounter Care Teams Sales Promotion Director Relationship Specialty Start Date End Date Radha Mccray PCP - General 01/28/14 06/25/20 Nancy Elliott DO PCP - General Internal Medicine 06/26/20 08/23/20 Shawanda Oliver MD PCP - General Internal Medicine 08/24/20 10/31/21 Noah Parks [address] [place] [address] PCP - General Internal Medicine 11/01/21 11/25/21 Carmina Varela MD [address] [place] [address] PCP - General Internal Medicine 11/26/21 Nancy Elliott DO Internal Medicine 01/28/14 08/31/22 Db Martino MD [address] [place] [address]92 Specialist Cardiology 09/01/22 Dario Ling [address] [place], [place] [phone] Specialist Pulmonology 09/01/22 documented as of this encounter
--- OUTSIDE RECORDS SUMMARY | 2024-08-28 19:30 | XMS_ITS | Encounter Summary ---
Author Organization [facility] Address [address] [place] [address] Care Team Providers Care Automotive Technology Instructor Name Role Phone Carmina Varela MD Primary Care Prov ider Db Martino MD Unavailable Unavailable Dario Ling Unavailable Unavailable Encounter Details Date Type Department Care Team Description 11/24/2022 Stainless Steel Finisher Report Medical Records [address] [place] [address] Db Martino MD Social History Tobacco Use [...] on filedocumented in this encounter Care Teams Automotive Technology Instructor Relationship Specialty Start Date End Date Carmina Varela MD [address] [place], [place] [phone] PCP - General Internal Medicine 11/26/21 Db Martino MD [address] [place], [place] [phone] Specialist Cardiology 09/01/22 Dario Ling [address] [place] [address] Specialist Pulmonology 09/01/22 documented as of this encounter
--- OUTSIDE RECORDS SUMMARY | 2024-08-28 19:30 | XMS_ITS | Encounter Summary ---
Author Organization [facility] Address [address] [place] [address] Care Team Providers Care Financial Services Intern Name Role Phone Radha Mccray Primary Care Provider Unavailabl e Mariamakoruslan Colasacco Nancy DO Unavailable Unavailable [place] Colasacco, Nancy DO Primary Care Pro vider Unavailable Shawanda Oliver MD Primary Care Provider Noah Gramajo Primary Care Provider [phone] Carmina Varela MD Primary Care Prov ider Db Martino MD Unavailable Unavailable Dario Ling Unavailable Unavailable Encounter Details Date Type Department Care Team Description 03/25/2017 Battery Plate Assembler Report Medical Records [address] [place] [address] Sandra Benavides MD Social History Tobacco Use [...] filedocumented in this encounter Care Teams Financial Services Intern Relationship Specialty Start Date End Date Radha Mccray PCP - General 01/28/14 06/25/20 Nancy Elliott DO PCP - General Internal Medicine 06/26/20 08/23/20 Shawanda Oliver MD PCP - General Internal Medicine 08/24/20 10/31/21 Noah Parks [address] [place] [address] PCP - General Internal Medicine 11/01/21 11/25/21 Carmina Vraela MD [address] [place] [address] PCP - General Internal Medicine 11/26/21 Nancy Elliott, Internal Medicine 01/28/14 08/31/22 Db Martino MD [address] [place] [address] Specialist Cardiology 09/01/22 Dario Ling [address] [place] [address] Specialist Pulmonology 09/01/22 documented as of this encounter
--- OUTSIDE RECORDS SUMMARY | 2024-08-28 19:30 | XMS_ITS | Encounter Summary ---
Author Organization [facility] Address [address] [place] [address] Care Team Providers Care Global Supply Chain Director Name Role Phone JarenbeatricedeanConnordavedexter Primary Care Provider Unavailabl e Nancy Elliott DO Unavailable Unavailable Stephon Elliottabela DO Primary Care Pro vider Unavailable Shawanda Oliver MD Primary Care Provider Noah Gramajo Primary Care Provider [phone] Carmina Varela MD Primary Care Prov ider Db Martino MD Unavailable Unavailable Dario Ling Unavailable Unavailable Reason for Visit * Reason Comments E-prescribe Rx Request Encounter Details Date Type Department Care Team Description 03/29/2020 Refill Adult Medicine [address] [address] Nancy Elliott DO E-prescribe Rx Request Social [...] Telephone Encounter - Joellen Cervantes M.A. - 03/30/2020 10:27 AM EST Lab Results Component Value Date HGBA1C 8.5 06/29/2019 MALBUR 69.6 02/14/2019 MALBCR 165.7 02/14/2019 CHOL 143 09/29/2018 LDL 62 09/29/2018 HDL 54 09/29/2018 TRIG 139 09/29/2018 GLU 71 06/29/2019 CREAT 1.09 06/29/2019 * Telephone Encounter - Leslie Art - 03/29/2020 2:37 PM EST Patient would like script to be: E-PRESCRIBED/FAXED TO PHARMACY WHEN WAS THE PATIENT'S LAST APPOINTMENT IN ADULT MEDICINE? 09/30/2019 WHEN WAS THE LAST TIME THE PATIENT SAW THEIR PCP? Same as above Does patient have an upcoming appointment? 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) Type II or unspecified type diabetes mellitus with neurological manifestations, not stated as uncontrolled Screening for viral disease Special screening examination for unspecified viral disease Hip bursitis, left Enthesopathy of hip region Chronic pain of left knee Pain in joint, lower leg documented in this encounter Care Teams Global Supply Chain Director Relationship Specialty Start Date End Date Radha Mccray PCP - General 01/28/14 06/25/20 Nancy Elliott DO PCP - General Internal Medicine 06/26/20 08/23/20 Shawanda Oliver MD PCP - General Internal Medicine 08/24/20 10/31/21 Noah Parks [address] [place] [address] PCP - General Internal Medicine 11/01/21 11/25/21 Carmina Varela MD [address] [place] [address] PCP - General Internal Medicine 11/26/21 Nancy Elliott DO Internal Medicine 01/28/14 08/31/22 Db Martino MD [address] [place] [address] Specialist Cardiology 09/01/22 Dario Ling [address] [place] [address] Specialist Pulmonology 09/01/22 documented as of this encounter
--- OUTSIDE RECORDS SUMMARY | 2024-08-28 19:30 | XMS_ITS | Encounter Summary ---
Author Organization [facility] [place] [address] Care Team Providers Care Bilingual Recruiter Name Role Phone Carmina Ayala MD Primary Care Prov ider Reason for Visit * Reason Onset Date Comments Fitting for DME 08/26/2024 Encounter Details Date Type Department Care Team (Late st Contact Info) Description 08/26/2024 Telephone Adult Medicine [facility] [address] [place] [phone] Carmina Ayala MD [address] [place] [address] Fitting for DME Social History Tobacco Use Types Packs/Day Years Used Date Smoking Tobacco: Former Cigarettes Smokeless Tobacco: Never Alcohol Use Standard Drinks/Week Comments No 0 [...] ed Within the last 3 months, ho w many times did you visit the emergency [...] for your loved ones. For example, child therapist or elderly care for an older adult? [...] on file documented as of this encounter Progress Notes * Jazzgemma Kirkland - 08/26/2024 3:41 PM EDT DME REQUEST Name of Product: Wipes and Blood pressure Meter Specific information about product # Needed Wipes incontinence and 1 glucose and blood pressure meter Reason patient is asking for this supply? See Medical problem Have you received this supply before? If yes , when?: Yes. Have you discussed the need for this supply with a provider at a recent visit? If yes, with who andwhen? No When completed: Fax to [employer] [phone] Have you told the patient it will take 7-10 days for completion of this request? Yes documented in this encounter Plan of Treatment Upcoming Encounters Date Type Department Care Team (Late st Contact Info) Description 10/17/2024 10:00 AM EDT Appointment [facility]oscopy [address] [place] [phone] Jericho Vargas, [address] [address] documented as of this encounter Visit Diagnoses Not on filedocumented in this encounter Care Teams Bilingual Recruiter Relationship Specialty Start Date End Date Carmina Ayala MD [address] [place] [address] PCP - General Internal Medicine 03/09/24 documented as of this encounter
--- OUTSIDE RECORDS SUMMARY | 2024-08-28 19:30 | XMS_ITS | Encounter Summary ---
Author Organization [facility] Address [address] [place] [address] Care Team Providers Care Coke Crane Operator Name Role Phone Radha Mccray Primary Care Provider Unavailabl e Stephon Elliottabeabdoulaye HERNÁNDEZ Unavailable Unavailable Ariadne Bartono Nancy Primary Care Pro vider Unavailable Shawanda Oliver MD Primary Care Provider Noah Gramajo Primary Care Provider [phone] Carmina Varela MD Primary Care Prov ider Db Martino MD Unavailable Unavailable Dario Ling Unavailable Unavailable Reason for Visit * Reason Onset Date Comments Testing 03/30/2020 DXA BONE DENSITY STUDY 1+ SITS AXIAL SKEL Encounter Details Date Type Department Care Team Description 03/30/2020 Telephone Adult Medicine [address] [address] Nancy Elliott DO Testing (DXA BONE DENSITY STUDY 1+ SITS AXIAL SKEL) Social History Tobacco Use Types Packs/Day Years [...] Telephone Encounter - Nancy Valdivia DO - 04/03/2020 4:27 PM EST cancel * Telephone Encounter - Virginie Oneill M.A. - 03/30/2020 8:47 AM EST DXA BONE DENSITY STUDY 1+ SITS AXIAL SKEL was ordered 10/01/19, do you want to complete pr cancel theorder? documented in this encounter Plan of Treatment Not on file documented as of this encounter Visit Diagnoses Not on filedocumented in this encounter Care Teams Coke Crane Operator Relationship Specialty Start Date End Date Radha Mccray PCP - General 01/28/14 06/25/20 Nancy Elliott DO PCP - General Internal Medicine 06/26/20 08/23/20 Shawanda Oliver MD PCP - General Internal Medicine 08/24/20 10/31/21 Noah Parks [address] [place] [address] PCP - General Internal Medicine 11/01/21 11/25/21 Carmina Varela MD [address] [place] [address] PCP - General Internal Medicine 11/26/21 Nancy Elliott DO Internal Medicine 01/28/14 08/31/22 Db Martino MD [address] [place] [address] Specialist Cardiology 09/01/22 Dario Ling [address] [place] [address] Specialist Pulmonology 09/01/22 documented as of this encounter
--- OUTSIDE RECORDS SUMMARY | 2024-08-28 19:30 | XMS_ITS | Encounter Summary ---
Author Organization [facility] Address [address] [place] [address] Care Team Providers Care Manager Decision Support Name Role Phone Radha Mccray Primary Care Provider Unavailabl e Krakowifranklin Colasacco, Nancy DO Unavailable Unavailable [place] Colasacco, Nancy DO Primary Care Pro vider Unavailable Shawanda Oliver MD Primary Care Provider Noah Gramajo Primary Care Provider [phone] Carmina Varela MD Primary Care Prov ider Db Martino MD Unavailable Unavailable Dario Ling Unavailable Unavailable Encounter Details Date Type Department Care Team Description 09/15/2016 SCAN Medical Records [address] [place] [address] Abstract, Provider Social History Tobacco Use Types [...] on filedocumented in this encounter Care Teams Manager Decision Support Relationship Specialty Start Date End Date Shazia Gerrydexter PCP - General 01/28/14 06/25/20 Nancy Elliott DO PCP - General Internal Medicine 06/26/20 08/23/20 Shawanda Oliver MD PCP - General Internal Medicine 08/24/20 10/31/21 Noah Parks [address] [place] [address] PCP - General Internal Medicine 11/01/21 11/25/21 Carmina Varela MD [address] [place] [address] PCP - General Internal Medicine 11/26/21 Nancy Elliott DO Internal Medicine 01/28/14 08/31/22 Db Martino MD [address] [place] [address] Specialist Cardiology 09/01/22 Dario Ling [address] [place] [address] Specialist Pulmonology 09/01/22 documented as of this encounter
--- OUTSIDE RECORDS SUMMARY | 2024-08-28 19:30 | XMS_ITS | Encounter Summary ---
Author Organization [facility] Address [address] [place] [address] Care Team Providers Care Driver Recruiter Name Role Phone Nancy Elliott DO Unavailable Unavailable Shawanda Oliver MD Primary Care Provider Noah Gramajo Primary Care Provider [phone] Carmina Varela MD Primary Care Prov ider Db Martino MD Unavailable Unavailable Dario Ling Unavailable Unavailable Encounter Details Date Type Department Care Team Description 11/09/2020 Tumbler Plater Report Medical Records [address] [place] [address] Abstract, Provider Social History Tobacco Use Types [...] on filedocumented in this encounter Care Teams Driver Recruiter Relationship Specialty Start Date End Date Shawanda Oliver MD PCP - General Internal Medicine 08/24/20 10/31/21 Noah Parks [address] [place] [address] PCP - General Internal Medicine 11/01/21 11/25/21 Carmina Varela MD [address] [place] [address] PCP - General Internal Medicine 11/26/21 Nancy Elliott, DO Internal Medicine 01/28/14 08/31/22 Db Martino MD [address] [place] [address] Specialist Cardiology 09/01/22 Dario Ling [address] [place] [address] Specialist Pulmonology 09/01/22 documented as of this encounter
--- OUTSIDE RECORDS SUMMARY | 2024-08-28 19:30 | XMS_ITS | Encounter Summary ---
Author Organization [facility] Address [address] [place] [address] Care Team Providers Care Manager Therapy Name Role Phone Radha Mccray Primary Care Provider Unavailabl e Ariadne Colbarbarao Nancy DO Unavailable Unavailable [place] Colasacco Nancy DO Primary Care Pro vider Unavailable Shawanda Oliver MD Primary Care Provider Noah Gramajo Primary Care Provider Carmina Varela MD Primary Care Prov ider Db Martino MD Unavailable Unavailable Dario Ling Unavailable Unavailable Encounter Details Date Type Department Care Team Description 03/10/2018 Marketing Communications Manager Report Medical Records [address] [place], [place] [id number] [place] [address] Social History Tobacco Use Types Packs/Day Years [...] filedocumented in this encounter Care Teams Manager Therapy Relationship Specialty Start Date End Date Radha Mccray PCP - General 01/28/14 06/25/20 Nancy Elliott DO PCP - General Internal Medicine 06/26/20 08/23/20 Shawanda Oliver MD PCP - General Internal Medicine 08/24/20 10/31/21 Noah Parks [address] [place] [address] PCP - General Internal Medicine 11/01/21 11/25/21 Carmina Varela MD [address] [place] [address] PCP - General Internal Medicine 11/26/21 Nancy Elliott, DO Internal Medicine 01/28/14 08/31/22 Db Martino MD [address] [place] [address] Specialist Cardiology 09/01/22 Dario Ling [address] [place] [address] Specialist Pulmonology 09/01/22 documented as of this encounter
--- OUTSIDE RECORDS SUMMARY | 2024-08-28 19:30 | XMS_ITS | Encounter Summary ---
Author Organization [facility] Address [address] [place] [address] Care Team Providers Care Operations Project Manager Name Role Phone Nancy Elliott DO Unavailable Unavailable Shawanda Oliver MD Primary Care Provider Noah Gramajo Primary Care Provider [phone] Carmina Varela MD Primary Care Prov ider Db Martino MD Unavailable Unavailable Dario Ling Unavailable Unavailable Encounter Details Date Type Department Care Team Description 11/21/2020 Structural Engineering Drafting Officer Report Medical Records [address] [place] [address] Abstract, Provider Social History Tobacco Use Types [...] filedocumented in this encounter Care Teams Operations Project Manager Relationship Specialty Start Date End Date Shawanda Oliver MD PCP - General Internal Medicine 08/24/20 10/31/21 Noah Parks [address] [place] [address] PCP - General Internal Medicine 11/01/21 11/25/21 Carmina Varela MD [address] [place] [address] PCP - General Internal Medicine 11/26/21 Nancy Elliott, DO Internal Medicine 01/28/14 08/31/22 Db Martino MD [address] [place] [address] Specialist Cardiology 09/01/22 Dario Ling [address] [place] [address] Specialist Pulmonology 09/01/22 documented as of this encounter
--- OUTSIDE RECORDS SUMMARY | 2024-08-28 19:30 | XMS_ITS | Encounter Summary ---
Author Organization [facility] Address [address] [place] [address] Care Team Providers Care Photographer Assistant Name Role Phone Radha Mccray Primary Care Provider Unavailabl e Nancy Elliott DO Unavailable Unavailable Stephon Elliottabela DO Primary Care Pro vider Unavailable Shawanda Oliver MD Primary Care Provider Noah Gramajo Primary Care Provider [phone] Carmina Varela MD Primary Care Prov ider Db Martino MD Unavailable Unavailable Dario Ling Unavailable Unavailable Reason for Visit * Reason Onset Date Comments Provider Call Back 08/16/2018 Encounter Details Date Type Department Care Team Description 08/16/2018 Telephone Adult Medicine [address] [address] Nancy Elliott DO Provider Call Back Social [...] on filedocumented in this encounter Care Teams Photographer Assistant Relationship Specialty Start Date End Date Radha Mccray PCP - General 01/28/14 06/25/20 Nancy Elliott DO PCP - General Internal Medicine 06/26/20 08/23/20 Shawanda Oliver MD PCP - General Internal Medicine 08/24/20 10/31/21 Noah Parks [address] [place] [address] PCP - General Internal Medicine 11/01/21 11/25/21 Carmina Varela MD [address] [place] [address] PCP - General Internal Medicine 11/26/21 Nancy Elliott DO Internal Medicine 01/28/14 08/31/22 Db Martino MD [address] [place] [address] Specialist Cardiology 09/01/22 Dario Ling [address] [place] [address] Specialist Pulmonology 09/01/22 documented as of this encounter
--- OUTSIDE RECORDS SUMMARY | 2024-08-28 19:30 | XMS_ITS | Encounter Summary ---
Author Organization [facility] Address [address] [place] [address] Care Team Providers Care Fibreglass Gun Hand Name Role Phone Carmina Varela MD Primary Care Prov ider Db Martino MD Unavailable Unavailable Dario Ling Unavailable Unavailable Encounter Details Date Type Department Care Team Description 02/03/2023 Convex Grinder Report Medical Records [address] [place] [address] Db Martino MD Social History Tobacco Use [...] on filedocumented in this encounter Care Teams Fibreglass Gun Hand Relationship Specialty Start Date End Date Carmina Varela MD [address] [phone] PCP - General Internal Medicine 11/26/21 Db Martino MD [address] [place], [place] [phone] Specialist Cardiology 09/01/22 Dario Ling [address] [place] [address] Specialist Pulmonology 09/01/22 documented as of this encounter
--- OUTSIDE RECORDS SUMMARY | 2024-08-28 19:30 | XMS_ITS | Encounter Summary ---
Author Organization [facility] Address [address] [place] [address] Care Team Providers Care Credit Interviewer Name Role Phone Shazia Gerrydexter Primary Care Provider Unavailabl e Ariadne Colbarrettcco Nancy DO Unavailable Unavailable [place] Colasacco Nancy DO Primary Care Pro vider Unavailable Shawanda Oliver MD Primary Care Provider Noah Gramajo Primary Care Provider [phone] Carmina Varela MD Primary Care Prov ider Db Martino MD Unavailable Unavailable Dario Ling Unavailable Unavailable Encounter Details Date Type Department Care Team Description 10/23/2016 Orders Only Radiology - [address] [address] [place] ColbarbaraoNancy DO CKD (chronic kidney disease), stage 3 [...] - 1.5 mg/dL 10/31/2016 2:04 PM EDT [facility] GFR > 60 >60 10/31/2016 2:04 PM EDT [facility] Comment: If patient is -Stateless, multiply result by 1.21 Chronic Kidney Disease: < 60 ml/min/1.73 square meters Kidney Failure: < 15 ml/min/1.73 square meters 10/31/2016 10:5 4 AM EDT 10/31/2016 10:54 AM EDT Nancy Valdivia DO LAB [address] documented in this encounter Visit Diagnoses Diagnosis CKD (chronic kidney disease), stage 3 (moderate)- Primary documented in this encounter Care Teams Credit Interviewer Relationship Specialty Start Date End Date Radha Mccray PCP - General 01/28/14 06/25/20 Nancy Elliott DO PCP - General Internal Medicine 06/26/20 08/23/20 Shawanda Oliver MD PCP - General Internal Medicine 08/24/20 10/31/21 Noah Parks [address] [place] [address] PCP - General Internal Medicine 11/01/21 11/25/21 Carmina Varela MD [address] [place] [address] PCP - General Internal Medicine 11/26/21 Nancy Elliott DO Internal Medicine 01/28/14 08/31/22 Db Martino MD [address] [place] [address] Specialist Cardiology 09/01/22 Dario Ling [address] [place] [address] Specialist Pulmonology 09/01/22 documented as of this encounter
--- OUTSIDE RECORDS SUMMARY | 2024-08-28 19:30 | XMS_ITS | Encounter Summary ---
Author Organization [facility] Address [address] [place] [address] Care Team Providers Care Press Helper Name Role Phone Radha Mccray Primary Care Provider Unavailabl e [place] Colasacco Nancy DO Unavailable Unavailable [place] Colasacco, Nancy DO Primary Care Pro vider Unavailable Shawanda Oliver MD Primary Care Provider Noah Gramajo Primary Care Provider Carmina Varela MD Primary Care Prov ider Db Martino MD Unavailable Unavailable Dario Ling Unavailable Unavailable Encounter Details Date Type Department Care Team Description 06/09/2016 Oncologist Report Medical Records [address] [place] [address] Sandoval Patton MD Social History Tobacco Use [...] on filedocumented in this encounter Care Teams Press Helper Relationship Specialty Start Date End Date Radha Mccray PCP - General 01/28/14 06/25/20 Nancy Elliott DO PCP - General Internal Medicine 06/26/20 08/23/20 Shawanda Oliver MD PCP - General Internal Medicine 08/24/20 10/31/21 Noah Parks [address] [place] [address] PCP - General Internal Medicine 11/01/21 11/25/21 Carmina Varela MD [address] [place] [address] PCP - General Internal Medicine 11/26/21 Nancy Elliott DO Internal Medicine 01/28/14 08/31/22 Db Martino MD [address] [place] [address] Specialist Cardiology 09/01/22 Dario Ling [address] [place] [address] Specialist Pulmonology 09/01/22 documented as of this encounter
--- OUTSIDE RECORDS SUMMARY | 2024-08-28 19:30 | XMS_ITS | Encounter Summary ---
Author Organization [facility] Address [address] [place] [address] Care Team Providers Care Calculator Operator Name Role Phone Radha Mccray Primary Care Provider Unavailabl e [place] Colasacco Nancy DO Unavailable Unavailable [place] Colasacco, Nancy DO Primary Care Pro vider Unavailable Shawanda Oliver MD Primary Care Provider Noah Gramajo Primary Care Provider [phone] Carmina Varela MD Primary Care Prov ider Db Martino MD Unavailable Unavailable Dario Ling Unavailable Unavailable Encounter Details Date Type Department Care Team Description 02/12/2018 Live Study Manager Report Medical Records [address] [place] [address] Db Martino MD Social History Tobacco Use [...] on filedocumented in this encounter Care Teams Calculator Operator Relationship Specialty Start Date End Date Radha Mccray PCP - General 01/28/14 06/25/20 Nancy Elliott DO PCP - General Internal Medicine 06/26/20 08/23/20 Shawanda Oliver MD PCP - General Internal Medicine 08/24/20 10/31/21 Noah Parks [address] [place] [address] PCP - General Internal Medicine 11/01/21 11/25/21 Carmina Varela MD [address] [place] [address] PCP - General Internal Medicine 11/26/21 Nancy Elliott, Internal Medicine 01/28/14 08/31/22 Db Martino MD [address] [place] [address] Specialist Cardiology 09/01/22 Dario Ling [address] [place] [address] Specialist Pulmonology 09/01/22 documented as of this encounter
--- OUTSIDE RECORDS SUMMARY | 2024-08-28 19:30 | XMS_ITS | Encounter Summary ---
Author Organization [facility] Address [address] [place] [address] Care Team Providers Care Purchasing And Fiscal Clerk Name Role Phone Nancy Elliott DO Unavailable Unavailable Shawanda Oliver MD Primary Care Provider Noah Gramajo Primary Care Provider [phone] Carmina Varela MD Primary Care Prov ider Db Martino MD Unavailable Unavailable Dario Ling Unavailable Unavailable Encounter Details Date Type Department Care Team Description 12/04/2020 Surveillance Director Report Medical Records [address] [place] [address] Abstract, Provider Social History Tobacco Use Types [...] on filedocumented in this encounter Care Teams Purchasing And Fiscal Clerk Relationship Specialty Start Date End Date Shawanda Oliver MD PCP - General Internal Medicine 08/24/20 10/31/21 Noah Parks [address] [place] [address] PCP - General Internal Medicine 11/01/21 11/25/21 Carmina Varela MD [address] [place] [address] PCP - General Internal Medicine 11/26/21 Nancy Elliott, DO Internal Medicine 01/28/14 08/31/22 Db Martino MD [address] [place] [address] Specialist Cardiology 09/01/22 Dario Ling [address] [place] [address] Specialist Pulmonology 09/01/22 documented as of this encounter
--- OUTSIDE RECORDS SUMMARY | 2024-08-28 19:30 | XMS_ITS | Encounter Summary ---
Author Organization [facility] Address [address] [place] [address] Care Team Providers Care Print Line Tailer Name Role Phone JarenRadha puentes Primary Care [...] Team Description 04/12/2020 Telephone Adult Medicine [address] [address] Nancy Elliott DO Social History Tobacco Use [...] on filedocumented in this encounter Care Teams Print Line Tailer Relationship Specialty Start Date End Date Radha Mccray PCP - General 01/28/14 06/25/20 Nancy Elliott DO PCP - General Internal Medicine 06/26/20 08/23/20 Shawanda Oliver MD PCP - General Internal Medicine 08/24/20 10/31/21 Noah Parks [address] [place] [address] PCP - General Internal Medicine 11/01/21 11/25/21 Carmina Varela MD [address] [place] [address] PCP - General Internal Medicine 11/26/21 Nancy Elliott DO Internal Medicine 01/28/14 08/31/22 Db Martino MD [address] [place] [address] Specialist Cardiology 09/01/22 Dario Ling [address] [place] [address] Specialist Pulmonology 09/01/22 documented as of this encounter
--- OUTSIDE RECORDS SUMMARY | 2024-08-28 19:30 | XMS_ITS | Encounter Summary ---
Author Organization [facility] Address [address] [place] [address] Care Team Providers Care Dog Control Officer Name Role Phone Shazia Gerrydexter Primary Care Provider Unavailabl e Ariadne Bartono Nancy Unavailable Unavailable Ariadne Bartono Nancy DO Primary Care Pro vider Unavailable Shawanda Oliver MD Primary Care Provider Noah Gramajo Primary Care Provider [phone] Carmina Varela MD Primary Care Prov ider Db Martino MD Unavailable Unavailable Dario Ling Unavailable Unavailable Reason for Visit * Reason Onset Date Comments Testing 10/04/2016 Encounter Details Date Type Department Care Team Description 10/04/2016 Telephone Adult Medicine [address] [address] Nancy Elliott DO Testing Social History Tobacco [...] on filedocumented in this encounter Care Teams Dog Control Officer Relationship Specialty Start Date End Date Radha Mccray PCP - General 01/28/14 06/25/20 Nancy Elliott DO PCP - General Internal Medicine 06/26/20 08/23/20 Shawanda Oliver MD PCP - General Internal Medicine 08/24/20 10/31/21 Noah Parks [address] [place] [address] PCP - General Internal Medicine 11/01/21 11/25/21 Carmina Varela MD [address] [place] [address] PCP - General Internal Medicine 11/26/21 Nancy Elliott DO Internal Medicine 01/28/14 08/31/22 Db Martino MD [address] [place] [address] Specialist Cardiology 09/01/22 Dario Ling [address] [place] [address] Specialist Pulmonology 09/01/22 documented as of this encounter
--- OUTSIDE RECORDS SUMMARY | 2024-08-28 19:30 | XMS_ITS | Clinical Summary ---
Author Organization [address] Address [address] [place] [phone] Phone Care Team Providers Care It Portfolio Manager Name Role Phone Carmina Ayala MD Primary Care Prov ider Medications citalopram (CeleXA) 20 mg tablet Take 1 tablet (20 mg total) by mouth 1 (one) time each day. 4 Active insulin aspart (NovoLOG Flexpen U-100 Insulin) 100 unit/mL (3 mL) injection pen Use three times a day before meals: <100:0 units, 101-150: 4 units, 151-200: 6 untis, 201-250: 8 units, 251-300: 10 units, >300: 12 units 4 Active glucose blood test strip To check blood sugars 3 times a day 4 09/12/19 25 Active blood-glucose meter kit To check sugars 3 times a day 3 Active lancets lancets To check sugars 3 times a day. 3 Active sacubitriL-vals samia (Entresto) 97-103 mg per tablet Take 97-103 mg by mouth daily. 3 Active UNABLE TO FIND Inject 1 Each as directed 4 times daily. 3 Active UNABLE TO FIND Blood Glucose Calibration (FreeStyle Control Solution) Liquid, USE DIRECTED WITH GLUCOMETER 2 Active ipratropium-alb uteroL (Combivent Respimat) 20-100 mcg/actuation inhaler INHALE 1 PUFF BY MOUTH 4 TIMES DAILY 2 Active furosemide (LASIX) 20 mg tablet Take 2 tablets (40 mg total) by mouth 2 (two) times a day. Active carvediloL (COREG) 25 mg tablet Take 25 mg by mouth 2 times daily (with meals). Active rivaroxaban (Xarelto) 20 mg tablet Take 1 tablet (20 mg total) by mouth 1 (one) time each day. 0 Active albuterol sulfate (ProAir RespiClick) 90 mcg/actuation aerosol powdr breath activated Inhale 2 Puffs into the lungs 2 times daily as needed. Active nystatin (MYCOSTATIN) ointment Apply twice daily to affected area 9 Active nystatin, bulk, 10 billion unit powder Apply to skin folds twice daily, dispense one large bottle 9 Active bacitracin (bacitracin zinc) 500 unit/gram ointment Apply to both feet daily for dry skin 7 Active UNABLE TO FIND CPAP Historical (HISTORICAL CPAP), Inhale into the lungs at bedtime. Active spironolactone (ALDACTONE) 25 mg tablet Take 1 tablet (25 mg total) by mouth 1 (one) time each day. 5 Active empagliflozin (Jardiance) 25 mg tablet Take 1 tablet (25 mg total) by mouth 1 (one) time each day. 90 tablet 3 5 05/12/19 26 Active atorvastatin (LIPITOR) 80 mg tablet Take 1 tablet by mouth once daily 90 tablet 1 5 Active Lantus Solostar U-100 Insulin 100 unit/mL (3 mL) injection pen Inject 28 Units under the skin at bedtime. 30 mL 2 5 Active cefdinir (OMNICEF) 300 mg capsule Take 1 capsule (300 mg total) by mouth 2 (two) times a day for 7 days. 14 capsule 5 08/05/19 25 sulfamethoxazol e-trimethoprim (BACTRIM DS,SEPTRA DS) 800-160 mg per tablet Take 1 tablet by mouth 2 (two) times a day for 7 days. 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, with long-term current use of insulin ([facility] V24, [facility] V28) 02/15/2024 Morbid obesity with BMI of 4 5.0-49.9, adult ([facility] [place] V24, [facility] V28) 02/15/2024 Pure hypercholesterolemia 11/17/2023 Aortic stenosis 12/08/2020 [...] Pulmonary nodule 01/02/2016 Overview (02/15/2024): 12/21/11 in [facility] a 4 mm nodule in the right middle lobe anteriorly along the minor fissure Asthma 01/02/2014 CKD (chronic kidney disease) , stage III ([facility] V24, [facility] V28) 01/02/2014 Diabetes mellitus type 2 wit h neurological manifestations ([facility] [place] V24, [facility] [place] V28) 01/02/2014 Hypertension 01/02/2014 Assessment & Plan (05/12/2024 8:29 PM EST): Blood pressure is well-controlled, today 110/68. Will continue same regimen. Orders: Blood pressure monitor Vitamin D deficiency 01/02/2014 CHF NYHA class II ([facility] [place] V24, [facility] [place] [place] V28) Encounters Date Type Department Care Team Description 08/26/2024 Telephone Adult Medicine [address] [phone] Carmina Miller MD Fitting for DME 08/25/2024 Telephone Adult [address] [phone] Carmina Miller MD body pain (Right side) 07/29/2024 1:37 PM EDT - 07/29/2024 11:59 PM EDT Hospital Encounter Radiology Department - [address] [phone] Encounter for screening mammogram for breast cancer Discharge Disposition: Home or Self Care 07/28/2024 11:30 AM EDT Office Visit Adult [address] [phone] Khadra Mckeon PA Acute cystitis without hematuria (Primary Dx); Dysuria; Stage 3 chronic kidney disease, unspecified whether stage 3a or 3b CKD ([facility] [place] V24, [facility] [place] [place] V28); Diabetes mellitus type 2 with neurological manifestations ([facility] [place] [place] V24, [facility] [place] V28) 07/27/2024 Telephone Adult [address] [phone] Carmina Miller MD UTI from Last 3 Months Immunizations Name Administration [...] HISTORICAL APPENDECTOMY CARPAL TUNNEL RELEASE Bilateral PROCEDURE: MT NEUROPLASTY &/TRANSPOS MEDIAN NRV CARPAL TUNNE OTHER SURGICAL HISTORY 10/01/14 PROCEDURE: MT BRNCHSC INCL FLUOR GDNCE DX W/CELL WASHG SPX; COMMENT: ?aspiration OTHER SURGICAL HISTORY 12/05/2016 PROCEDURE: MT OPEN TX NASAL SEPTAL FRACTURE W/WO STABILIZATION CORONARY ARTERY BYPASS GRAFT 12/10/2017 PROCEDURE: HISTORICAL CABG Medical History Medical History Date Comments Diabetes ([facility] [place] [place] V24, [facility] [place] [place] V28) DX:Diabetes ([facility]) Anxiety DX:Anxiety Dyslipidemia DX:Dyslipidemia TAQUERIA on CPAP DX:TAQUERIA on CPAP; COMMENT: dr bowling COPD (chronic obstructive pu lmonary disease) ([facility] [place] [place] V24, [facility] [place] V28) DX:COPD (chronic o bstructive pulmonary disease) ([facility]) Smoking DX:Smoking; COMM ENT: 25 pack yr CAD (coronary artery disease) DX :CAD (coronary artery disease); COMMENT: Dr. Martino OA (osteoarthritis) of knee DX:O A (osteoarthritis) of knee Hypertension 01/02/2014 DX:Hypertension Diabetes type 2, uncontrolled DX :Diabetes type 2, uncontrolled Old PA (myocardial infarction) D X:Old PA (myocardial infarction); COMMENT: Dr. Martino Diabetes mellitus with renal manifestation ([facility] [place] V24, [facility] [place] [place] V28) 01/02/2014 DX:Diabetes mellitus with re nal manifestation ([facility]) Vitamin D deficiency 01/02/2014 DX:Vitamin D deficiency Hyperlipidemia DX:Hyperlipidemi a Asthma 01/02/2014 DX:Asthma CKD (chronic kidney disease) , stage III ([facility] [place] [place] V24, [facility] [place] [place] V28) 01/02/2014 DX:CKD (chronic kidney disease), stage III ([facility]) Diabetes mellitus type 2 wit h neurological manifestations ([facility] [place] [place] V24, [facility] [place] [place] V28) 01/02/2014 DX:Diabetes mellitus type 2 with neurological manifestations ([facility]) ICD (implantable cardioverter-defibrillator) in place DX:ICD (implantab le cardioverter-defibrillator) in place 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 For example, child development director or elderly care for an older adult? [...] Sexual Orientation Not on file Obstetrics History Para Term AB IAB SAB Ectopic Multiple Livin g Live Births 3 3 3 3 Date Outcome GA Total Labor Labor/2nd/3rd Weight Sex Type Anes PTL Frieda A1 A5 Name Clin Term Term Term Last Filed Vital Signs Vital Sign Reading Time Taken Comments Blood Pressure 132/70 07/28/2024 10:51 AM EDT Pulse 66 07/28/2024 10:51 AM EDT Temperature 36.8 ??C (98.2 ??F) 07/28/2024 10:51 AM E DT Respiratory Rate 18 07/28/2024 10:51 AM EDT Oxygen Saturation - - Inhaled Oxygen Concentration - - Weight 90.3 kg (199 lb) 07/28/2024 10:51 AM EDT Height 149.9 cm (4' 11 ) 07/28/2024 10:51 AM EDT Body Mass Index 40.19 07/28/2024 10:51 AM EDT Plan of Treatment Upcoming Encounters Date Type Department Care Team (Late st Contact Info) Description 10/17/2024 10:00 AM EDT Appointment Endoscopy [address] [place] [phone] Jericho Vargas DO [address] [facility] [address] [place] [address] Health Maintenance Due Date Last Done Comments Hepatitis A Vaccines (1 of 2 - Risk 2-dose series) 1973 Hepatitis B Vaccines (1 of 3 - Risk 3-dose series) 2014 RSV Immunization Adult Patients (1 - Risk 60-74 years 1-dose series) 2014 Colorectal Cancer Screening: Colonoscopy 04/05/2022 07/28/2011 Medicare Annual Wellness Visit 04/05/2022 COVID-19 Vaccine ( season) 2023 02/27/2023, 03/15/2022, 03/15/2022, Additional history exists Diabetes: Annual Urine Albumin-Creatinine Ratio (uACR) 12/27/2023 12/26/2022 Depression Screening 07/01/2024 07/02/2023 Diabetes: Annual Retina [...] Social Influencers of Health Screening 03/09/2025 03/09/2024 Breast Cancer Screening 07/29/2026 07/30/19, 04/10/2022, 11/23/2017, Additional history exists Cholesterol Screening (Lipid Panel) 12/27/2027 12/26/2022 Osteoporosis [...] age to complete this topic Meningococcal B Vaccine Aged Out No l onger eligible based on patient's age to complete this topic RSV Immunization Patients Under 20 months Aged Out No longer eligible based on patient's age to complete this topic Varicella Vaccines Aged Out No longer eligible based on patient's age to complete this topic Procedures Procedure Name Priority Date/Time Associated Diagnosis Comments URINALYSIS WITH REFLEX MICROSCOPIC Routine 07/29/2024 2:20 PM EDT Urinary tract infection symptoms MCBRIDE URINE CULTURE TUBE Routine 07/29/2024 2:20 PM EDT Acute cystitis without hematuria Dysuria Stage 3 chronic kidney disease, unspecified whether stage 3a or 3b CKD ([facility] V24, [facility] V28) Diabetes mellitus type 2 with neurological manifestations ([facility] V24, [facility] V28) URINALYSIS WITH REFLEX MICROSCOPIC AND CULTURE Routine 07/29/2024 2:20 PM EDT Acute cystitis without hematuria Dysuria Stage 3 chronic kidney disease, unspecified whether stage 3a or 3b CKD ([facility]/HCC V24, [facility]/HCC V28) Diabetes mellitus type 2 with neurological manifestations ([facility] V24, [facility] V28) URINALYSIS WITH REFLEX MICROSCOPIC Routine 07/29/2024 2:20 PM EDT Urinary tract infection symptoms URINALYSIS WITH REFLEX MICROSCOPIC AND CULTURE Routine 07/29/2024 2:20 PM EDT Acute cystitis without hematuria Dysuria Stage 3 chronic kidney disease, unspecified whether stage 3a or 3b CKD ([facility] V24, [facility] V28) Diabetes mellitus type 2 with neurological manifestations ([facility] V24, [facility] V28) CULTURE URINE Routine 07/29/2024 2:20 PM EDT Urinary tract infection symptoms MG MAMMO DIGITAL SCREENING W JIMMY BILAT Routine 07/29/2024 2:03 PM EDT Encounter for screening mammogram for breast cancer POC URINE NON-AUTO W/O MICRO Routine 07/28/2024 11:11 AM EDT Dysuria Stage 3 chronic kidney disease, unspecified whether stage 3a or 3b CKD ([facility] V24, [facility] V28) Diabetes mellitus type 2 with neurological manifestations ([facility] V24, [facility] V28) HEMOGLOBIN A1C Routine 04/21/2024 2:05 PM EST DXA BONE DENSITY STUDY 1+ SITS AXIAL SKEL Routine 02/19/2024 10:04 AM EDT Encounter for screening for osteoporosis FALLS RISK ASSESSMENT Routine 02/04/2024 ANNUAL BMP BLOOD TEST Routine 12/09/2023 DIABETES EYE EXAM Routine 08/11/2023 DEPRESSION SCREENING Routine 07/02/2023 URINE ALBUMIN CREATININE RATIO Routine 12/26/2022 LIPID PANEL Routine 12/26/2022 HEPATITIS C SCREENING Routine 04/17/2016 COLONOSCOPY Routine 07/28/2011 DIABETES FOOT EXAM Routine 11/17/2003 from Last 3 Months or Most Recently Relevant to Health Maintenance Results * (ABNORMAL) Urinalysis with reflex microscopic (07/29/2024 2:20 PM EDT) [facility] Signature Specific [place] Urine 1.012 1.003 - 1.030 LAB URINALYSIS - AUTOMATED METHOD 07/29/2024 4:[address] [facility] pH, Urine 6.5 5.0 - 8.0 pH LAB URINALYSIS - AUTOMATED METHOD 07/29/2024 4:[address] [facility] Leukocytes, Urine Large(A) Negative LAB URINALYSIS - AUTOMATED METHOD 07/29/2024 4:[address] [facility] Nitrite, Urine Positive(A) Negative LAB URINALYSIS - AUTOMATED METHOD 07/29/2024 4:[address] [facility] Protein, Urine Negative <=Trace mg/dL LAB URINALYSIS - AUTOMATED METHOD 07/29/2024 4:[address] [facility] Glucose, Urine >=1000(A) Negative mg/dL LAB URINALYSIS - AUTOMATED METHOD 07/29/2024 4:[address] [facility] Ketones, Urine Negative Negative mg/dL LAB URINALYSIS - AUTOMATED METHOD 07/29/2024 4:[address] [facility] Urobilinogen , Urine 0.2 0.2 - 1.0 mg/dL LAB URINALYSIS - AUTOMATED METHOD 07/29/2024 4:[address] [facility] Bilirubin, Urine Negative Negative LAB URINALYSIS - AUTOMATED METHOD 07/29/2024 4:[address] [facility] Blood, Urine Moderate(A) Negative LAB URINALYSIS - AUTOMATED METHOD 07/29/2024 4:[address] [facility] RBC, Urine 20.1(H) 0 - 4 /HPF LAB URINALYSIS - AUTOMATED METHOD 07/29/2024 4:[address] [facility] WBC, Urine 90.8(H) 0 - 4 /HPF LAB URINALYSIS - AUTOMATED METHOD 07/29/2024 4:51 PM EDT [facility] Squamous Epithelial, Urine 34 0 - 60 /LPF LAB URINALYSIS - AUTOMATED METHOD 07/29/2024 4:51 PM EDT [facility] Bacteria, Urine Many(A) Negative /HPF LAB URINALYSIS - AUTOMATED METHOD 07/29/2024 4:51 PM EDT [facility] Hyaline Casts, Urine 0.8 0 - 3 /LPF LAB URINALYSIS - AUTOMATED METHOD 07/29/2024 4:51 PM EDT [facility] Urine Urine specimen obtained by clean catch procedure / Unknown Non-blood Collection / Unknown 07/29/2024 2:20 PM EDT 07/29/2024 2:20 PM EDT us Malu MENJIVAR LAB URINE ORDERABLES Final Resul t [facility] [address] [place] [address], * (ABNORMAL) Urinalysis with reflex microscopic and culture (07/29/2024 2:20 PM EDT) Specific [place] Urine 1.012 1.003 - 1.030 LAB URINALYSIS - AUTOMATED METHOD 07/29/2024 4:[address] [facility] pH, Urine 6.5 5.0 - 8.0 pH LAB URINALYSIS - AUTOMATED METHOD 07/29/2024 4:51 PM T [facility] Leukocytes, Urine Large(A) Negative LAB URINALYSIS - AUTOMATED METHOD 07/29/2024 4:[address] [facility] Nitrite, Urine Positive(A) Negative LAB URINALYSIS - AUTOMATED METHOD 07/29/2024 4:[address] [facility] Protein, Urine Negative <=Trace mg/dL LAB URINALYSIS - AUTOMATED METHOD 07/29/2024 4:51 PM EDT [facility] Glucose, Urine >=1000(A) Negative mg/dL LAB URINALYSIS - AUTOMATED METHOD [facility]24 [facility] Ketones, Urine Negative Negative mg/dL LAB URINALYSIS - AUTOMATED METHOD 07/29/2024 4:[address] [facility] Urobilinogen , Urine 0.2 0.2 - 1.0 mg/dL LAB URINALYSIS - AUTOMATED METHOD 07/29/2024 4:[address] [facility] Bilirubin, Urine Negative Negative LAB URINALYSIS - AUTOMATED METHOD 07/29/2024 4:[address] [facility] Blood, Urine Moderate(A) Negative LAB URINALYSIS - AUTOMATED METHOD 07/29/2024 4:[address] [facility] RBC, Urine 20.1(H) 0 - 4 /HPF LAB URINALYSIS - AUTOMATED METHOD 07/29/2024 4:[address] [facility] WBC, Urine 90.8(H) 0 - 4 /HPF LAB URINALYSIS - AUTOMATED METHOD 07/29/2024 4:[address] [facility] Squamous Epithelial, Urine 34 0 - 60 /LPF LAB URINALYSIS - AUTOMATED METHOD 07/29/2024 4:[address] [facility] Bacteria, Urine Many(A) Negative /HPF LAB URINALYSIS - AUTOMATED METHOD 07/29/2024 4:[address] [facility] Hyaline Casts, Urine 0.8 0 - 3 /LPF LAB URINALYSIS - AUTOMATED METHOD 07/29/2024 4:[address] [facility] Urine Urine specimen obtained by clean catch procedure / Unknown Non-blood Collection / Unknown 07/29/2024 2:20 PM EDT 07/29/2024 2:20 PM EDT Khadra MENJIVAR LAB URINE ORDERABLES Fin al Result [facility] [address] [place] [address], [place] [phone] * Mcbride urine culture tube (07/29/2024 2:20 PM EDT) Extra Tube Hold for add-ons. 07/29/2024 4:02 PM EDT [facility] Comment:Auto resulted. Urine Urine specimen obtained by clean catch procedure / Unknown Non-blood Collection / Unknown 07/29/2024 2:20 PM EDT 07/29/2024 2:20 PM EDT Khadra Mckeon [place] LAB URINE ORDERABLES Fin al Result Performing Organization Address [facility] Co de Phone Number [facility] [address] [place] [address], * (ABNORMAL) Culture urine (07/29/2024 2:20 PM EDT) Culture, Urine >100,000 CFU/mL Enterobacter cloacae complex(A) TINA 08/01/2024 10:24 AM EDT [facility] Comment: The organism value for this result has been updated. These results have been appended to the previously preliminary verified report. Urine Urine specimen obtained by clean catch procedure / Unknown Non-blood Collection / Unknown 07/29/2024 2:20 PM EDT 07/29/2024 2:20 PM EDT Narrative Organism Antibiotic Method Susceptibility Enterobacter cloacae complex Amoxicillin/Clavulanate TINA >=32 ug/ml: Resistant Enterobacter cloacae complex Cefoxitin TINA >=64 ug/ml: Resistant Enterobacter cloacae complex Ceftazidime TINA >=32 ug/ml: Resistant Enterobacter cloacae complex Cefepime TINA <=0.12 ug/ml: Susceptible Enterobacter cloacae complex Meropenem TINA <=0.25 ug/ml: Susceptible Enterobacter cloacae complex Amikacin TINA 4 ug/ml: Susceptible Enterobacter cloacae complex Gentamicin TINA <=1 ug/ml: Susceptible Enterobacter cloacae complex Ciprofloxacin TINA <=0.06 ug/ml: Susceptible Enterobacter cloacae complex Levofloxacin TINA <=0.12 ug/ml: Susceptible Enterobacter cloacae complex Nitrofurantoin TINA 64 ug/ml: Intermediate Enterobacter cloacae complex Trimethoprim/Sulfamethoxazo le TINA <=20 ug/ml: Susceptible us Malu MENJIVAR LAB MICROBIOLOGY - GENERAL ORDER JT Final Result [facility] [address] [place] [address], [place] [phone] * MG Mammo Digital Screening w Jimmy bilat (07/29/2024 2:03 PM EDT) Anatomical Region Laterality Modality Breast Bilateral Mammography 08/01/2024 8:07 AM EDT Impressions 08/01/2024 8:08 AM EDT No mammographic evidence of malignancy. BREAST DENSITY: B - There are scattered areas of fibroglandular density. BI-RADS CATEGORY: 1 - NEGATIVE RECOMMENDATION: Screening bilateral mammogram is recommended in 1 year. MAMMO LOCATION: [facility], [address] [place] [address], [id number], . -------- FINAL REPORT -------- Dictated By: Paula Gonzalez Dictated Date: 08/01/2024 08:07 ET Assigned Physician: Paula Gonzalez Reviewed and Electronically Signed By: Paula Gonzalez Signed Date: 08/01/2024 08:08 ET Workstation ID: [id number] Transcribed By: Self Edit Transcribed Date: 08/01/2024 08:07 ET Narrative 08/01/2024 8:08 AM EDT EXAM: Screening Mammogram CLINICAL: 69 years old, Female, routine annual exam. COMPARISON: 04/10/22 TECHNIQUE: Bilateral MLO and CC views were obtained digitally with 3-D mammogram (digital breast tomosynthesis). Computer-aided detection was utilized in evaluation of this exam (CAD). ??Battery pack superimposes the left axillary region limiting regional assessment. FINDINGS: No new suspicious mass, architectural distortion, or suspicious calcifications. Procedure Note Paula Gonzalez MD - 08/01/2024 EXAM: Screening Mammogram CLINICAL: 69 years old, Female, routine annual exam. COMPARISON: 04/10/22 TECHNIQUE: Bilateral MLO and CC views were obtained digitally with 3-Dmammogram (digital breast tomosynthesis). Computer-aided detection wasutilized in evaluation of this exam (CAD). Battery pack superimposes theleft axillary region limiting regional assessment. FINDINGS: No new suspicious mass, architectural distortion, or suspiciouscalcifications. IMPRESSION: No mammographic evidence of malignancy. BREAST DENSITY: B - There are scattered areas of fibroglandular density. BI-RADS CATEGORY: 1 - NEGATIVE RECOMMENDATION: Screening bilateral mammogram is recommended in 1 year. MAMMO LOCATION: [facility], [address] [place] [address], [phone], . -------- FINAL REPORT -------- Dictated By: Paula Gonzalez Dictated Date: 08/01/2024 08:07 ET Assigned Physician: Paula Gonzalez Reviewed and Electronically Signed By: Paula Gonzalez Signed Date: 08/01/2024 08:08 ET Workstation ID: [id number] Transcribed By: Self Edit Transcribed Date: 08/01/2024 08:07 ET Carmina Ayala MD IMG BI PROCEDURES Final Result * (ABNORMAL) POC Urine Non-Auto W/O Micro (07/28/2024 11:11 AM EDT) Glucose UA POC 2000+(A) Negative, Trace mg/dL Leukocytes UA POC Positive(A) Negative Nitrite UA POC Negative Negative Urobilinogen UA POC 0.2 E.U./dL mg/dL Protein UA POC Negative Negative, >=300 mg/dL PH UA POC 5.0 Blood UA POC Large Negative, Large Specific [place] UA POC 1.015 Ketones UA POC Negative Negative, Trace Bilirubin UA POC Small Negative, Small Appearance UA POC Cloudy Color UA POC Light Yellow Urine Urine specimen obtained by clean catch procedure / Unknown 07/28/2024 11:11 AM EDT Khadra MENJIVAR POINT OF CARE TEST ENTER /EDIT ORDERABLES Final Result * Hemoglobin A1c (04/21/2024 2:05 PM EST) Blood Venous blood specimen / Unknown Historical Provider LAB BLOOD ORDERABLES Jennifer l Result * DXA BONE DENSITY STUDY 1+ [...] (World Health Organization Fracture Risk Assessment) [facility] Department of Internal Medicine recommends using [...] alternative screening schedule based on [address] [facility] May 15, 2011 for patients with osteopenia [...] years. (World HealthOrganization Fracture Risk Assessment) [facility] Department of Internal Medicine recommendsusing National [...] screening schedule based on [address] al[address] [place] 2011 for patients with osteopenia (based on hip BMD T-score) is as follows: * advanced osteopenia (T scores -2.00 to -2.49), BMD testing every year * moderate osteopenia (T scores -1.50 to -1.99), BMD testing every 5years mild osteopenia or normal BMD (T scores -1.50 and higher), BMD testingevery 15 years Result [facility] Carmina Ayala MD IMG DXA PROCEDURES Final Result * Falls Risk Assessment (02/04/2024) [facility] Falls Risk Assessment abstracted Result [facility] [facility] HEALTH MAINTENANCE Final Result * Annual BMP Blood Test (12/09/2023) Health system Annual BMP Blood Test abstracted Result [facility] HEALTH MAINTENANCE Final Result * Diabetes Eye Exam (08/11/2023) [facility] Diabetes: Annual Retina Eye Exam abstracted Result [facility] HEALTH MAINTENANCE Final Result * Depression Screening (07/02/2023) Health system Depression Screening abstracted Result [facility] HEALTH MAINTENANCE Final Result * Urine Albumin Creatinine Ratio (12/26/2022) Health system Urine Albumin Creatinine Ratio abstracted Result [facility] HEALTH MAINTENANCE Final Result * Lipid panel (12/26/2022) [facility] LDL/HDL Ratio 3 0 - 4 Triglycerides 135 0 - 150 mg/dL Cholesterol 153 0 - 200 mg/dL HDL 62 >=40 mg/dL LDL Cholesterol 64 0 - 100 mg/dL Blood Venous blood specimen / Unknown Historical Provider LAB BLOOD ORDERABLES Jennifer l Result * Hepatitis C Screening (04/17/2016) Pathologist [facility] Hepatitis C Screening abstracted [facility] Provider HEALTH MAINTENANCE Final Result * Colonoscopy (07/28/2011) Pathologist [facility] Colonoscopy abstracted, no interpretation Anatomical Region Laterality Modality Other Historical Provider HEALTH MAINTENANCE Final Result * Diabetes Foot Exam (11/17/2003) Pathologist [facility] Diabetes: Annual Foot Exam abstracted Historical Provider HEALTH MAINTENANCE Final Result from Last 3 Months or Most Recently Relevant to Health Maintenance [place] [address] [place] [address] MEDICARE Member Subscriber Plan / Payer (Ef fective 2019-Present) Name:Gloria La Nena M Relation to Subscriber:Self Name:Ling Castroricia Miley Payer ID:[id number] Group ID:[id number] Type:Not on file Address: [place] [address] [address] [address] [id number] Care Teams It Portfolio Manager Relationship Specialty Start Date End Date Carmina Ayala MD [address] [place] [id number] PCP - General Internal Medicine 03/09/24
--- OUTSIDE RECORDS SUMMARY | 2024-08-28 19:30 | XMS_ITS | Encounter Summary ---
Author Organization [facility] Address [address] [place] [address] Care Team Providers Care Mill Platform Supervisor Name Role Phone Radha Mccray Primary Care Provider Unavailabl e Mariamakoruslan Colbarrettcco Nancy DO Unavailable Unavailable [place] Colasacco Nancy DO Primary Care Pro vider Unavailable Shawanda Oliver MD Primary Care Provider Noah Gramajo Primary Care Provider [phone] Carmina Varela MD Primary Care Prov ider Db Martino MD Unavailable Unavailable Dario Ling Unavailable Unavailable Encounter Details Date Type Department Care Team Description 04/16/2018 Hospital Medical Records [address] [place] [address] Abstract, Provider Social History Tobacco Use Types [...] on filedocumented in this encounter Care Teams Mill Platform Supervisor Relationship Specialty Start Date End Date Radha Mccray PCP - General 01/28/14 06/25/20 Nancy Elliott DO PCP - General Internal Medicine 06/26/20 08/23/20 Shawanda Oliver MD PCP - General Internal Medicine 08/24/20 10/31/21 Noah Parks [address] [place] [address] PCP - General Internal Medicine 11/01/21 11/25/21 Carmina Varela MD [address] [place] [address] PCP - General Internal Medicine 11/26/21 Nancy Elliott, Internal Medicine 01/28/14 08/31/22 Db Martino MD [address] [place] [address] Specialist Cardiology 09/01/22 Dario Ling [address] [place] [address] Specialist Pulmonology 09/01/22 documented as of this encounter
--- OUTSIDE RECORDS SUMMARY | 2024-08-28 19:30 | XMS_ITS | Encounter Summary ---
Author Organization [facility] Address [address] [place] [address] Care Team Providers Care Bsa/Aml Compliance Officer Name Role Phone Radha Mccray Primary Care Provider Unavailabl e Mariamakoruslan Colbarbarao Nancy DO Unavailable Unavailable [place] Colasacco, Nancy DO Primary Care Pro vider Unavailable Shawanda Oliver MD Primary Care Provider Noah Gramajo Primary Care Provider [phone] Carmina Varela MD Primary Care Prov ider Db Martino MD Unavailable Unavailable Dario Ling Unavailable Unavailable Encounter Details Date Type Department Care Team Description 12/01/2016 Hospital Medical Records [address] [place] [address] Mariel Arellano, RENÉ Social History Tobacco Use [...] on filedocumented in this encounter Care Teams Bsa/Aml Compliance Officer Relationship Specialty Start Date End Date Radha Mccray PCP - General 01/28/14 06/25/20 Nancy Elliott DO PCP - General Internal Medicine 06/26/20 08/23/20 Shawanda Oliver MD PCP - General Internal Medicine 08/24/20 10/31/21 Noah Parks [address] [place] [address] PCP - General Internal Medicine 11/01/21 11/25/21 Carmina Varela MD [address] [place] [address] PCP - General Internal Medicine 11/26/21 Nancy Elliott, Internal Medicine 01/28/14 08/31/22 Db Martino MD [address] [place] [address] Specialist Cardiology 09/01/22 Dario Ling [address] [place] [address] Specialist Pulmonology 09/01/22 documented as of this encounter
--- OUTSIDE RECORDS SUMMARY | 2024-08-28 19:30 | XMS_ITS | Encounter Summary ---
Author Organization [facility] Address [address] [place] [address] Care Team Providers Care Drop Wire Builder Name Role Phone Radha Mccray Primary Care Provider Unavailabl e Krakoruslan Colasacco, Nancy DO Unavailable Unavailable [place] Colasacco, Nancy DO Primary Care Pro vider Unavailable Shawanda Oliver MD Primary Care Provider Noah Gramajo Primary Care Provider [phone] Carmina Varela MD Primary Care Prov ider Db Martino MD Unavailable Unavailable Dario Ling Unavailable Unavailable Encounter Details Date Type Department Care Team Description 06/19/2018 Hospital Medical Records [address] [place] [address] Óscar Carlos Social History Tobacco Use Types Packs/Day Years [...] on filedocumented in this encounter Care Teams Drop Wire Builder Relationship Specialty Start Date End Date Radha Mccray PCP - General 01/28/14 06/25/20 Nancy Elliott DO PCP - General Internal Medicine 06/26/20 08/23/20 Shawanda Oliver MD PCP - General Internal Medicine 08/24/20 10/31/21 Noah Parks [address] [place] [address] PCP - General Internal Medicine 11/01/21 11/25/21 Carmina Varela MD [address] [place] [address] PCP - General Internal Medicine 11/26/21 Nancy Elliott, Internal Medicine 01/28/14 08/31/22 Db Martino MD [address] [place] [address] Specialist Cardiology 09/01/22 Dario Ling [address] [place] [address] Specialist Pulmonology 09/01/22 documented as of this encounter
--- OUTSIDE RECORDS SUMMARY | 2024-08-28 19:30 | XMS_ITS | Encounter Summary ---
Author Organization [facility] Address [address] [place] [address] Care Team Providers Care Automatic Vulcanizing Operator Name Role Phone Radha Mccray Primary Care Provider Unavailabl e Nancy Elliott DO Unavailable Unavailable Nancy Elliott DO Primary Care Pro vider Unavailable Shawanda Oliver MD Primary Care Provider Noah Gramajo Primary Care Provider [phone] Carmina Varela MD Primary Care Prov ider Db Martino MD Unavailable Unavailable Dario Ling Unavailable Unavailable Reason for Referral * Non JEFFERY (Priority) - Authorized/Booked Specialty Diagnoses / Procedures Referred By Mitra pelaez Referred To Contact Endocrinology Procedures REFERRAL TO ENDOCRINOLOGY Nancy Elliott DO [address] [place] [address] [facility] [address] [place] [address] Referral ID Status Reason Start Date Expiration Date V isits Requested Visits Authorized [id number] Authorized/B ooked 04/24/2020 07/23/2020 1 1 Encounter Details Date Type Department Care Team Description 04/24/2020 Orders Only Adult Medicine [address] [address] Nancy Elliott DO Social History Tobacco Use [...] PM EST documented as of this encounter Plan of Treatment Not on file documented as of this encounter Visit Diagnoses Not on filedocumented in this encounter Care Teams Automatic Vulcanizing Operator Relationship Specialty Start Date End Date Radha Mccray PCP - General 01/28/14 06/25/20 Nancy Elliott DO PCP - General Internal Medicine 06/26/20 08/23/20 Shawanda Oliver MD PCP - General Internal Medicine 08/24/20 10/31/21 Noah Parks [address] [place] [address] PCP - General Internal Medicine 11/01/21 11/25/21 Carmina Varela MD [address] [place] [address] PCP - General Internal Medicine 11/26/21 Nancy Elliott DO Internal Medicine 01/28/14 08/31/22 Db Martino MD [address] [place], [place] [phone] Specialist Cardiology 09/01/22 Dario Ling [address] [place], [place] [phone] Specialist Pulmonology 09/01/22 documented as of this encounter
--- OUTSIDE RECORDS SUMMARY | 2024-08-28 19:30 | XMS_ITS | Encounter Summary ---
Author Organization [facility] Address [address] [place] [address] Care Team Providers Care French Translator Name Role Phone Jarenbeatricedean Gerrydexter Primary Care Provider Unavailabl e Ariadne Bartono, Nancy DO Unavailable Unavailable Mariamakoruslan Woodscco, Nancy DO Primary Care Pro vider Unavailable Shawanda Oliver MD Primary Care Provider Noah Gramajo Primary Care Provider [phone] Carmina Varela MD Primary Care Prov ider Db Martino MD Unavailable Unavailable Dario Ling Unavailable Unavailable Reason for Visit * Reason Onset Date Comments TEST RESULTS 04/13/2020 Encounter Details Date Type Department Care Team Description 04/13/2020 Telephone Adult Medicine [address] [address] Nancy Elliott DO TEST RESULTS Social History [...] on filedocumented in this encounter Care Teams French Translator Relationship Specialty Start Date End Date Radha Mccray PCP - General 01/28/14 06/25/20 Nancy Elliott DO PCP - General Internal Medicine 06/26/20 08/23/20 Shawanda Oliver MD PCP - General Internal Medicine 08/24/20 10/31/21 Noah Parks [address] [place] [address] PCP - General Internal Medicine 11/01/21 11/25/21 Carmina Varela MD [address] [place] [address] PCP - General Internal Medicine 11/26/21 Nancy Elliott DO Internal Medicine 01/28/14 08/31/22 Db Martino MD [address] [place] [address] Specialist Cardiology 09/01/22 Dario Ling [address] [place] [address] Specialist Pulmonology 09/01/22 documented as of this encounter
--- OUTSIDE RECORDS SUMMARY | 2024-08-28 19:30 | XMS_ITS | Encounter Summary ---
Author Organization [facility] Address [address] [place] [address] Care Team Providers Care Electrical Software Engineer Name Role Phone Radha Mccray Primary Care Provider Unavailabl e Stephon Elliottabela DO Unavailable Unavailable Mariamakoraviak Micko Nancy DO Primary Care Pro vider Unavailable Shawanda Oliver MD Primary Care Provider Noah Gramajo Primary Care Provider [phone] Carmina Varela MD Primary Care Prov ider Db Martino MD Unavailable Unavailable Dario Ling Unavailable Unavailable Encounter Details Date Type Department Care Team Description 03/28/2018 Hospital Medical Records [address] [place] [address] Social History Tobacco Use Types Packs/Day Years [...] on filedocumented in this encounter Care Teams Electrical Software Engineer Relationship Specialty Start Date End Date Radha Mccray PCP - General 01/28/14 06/25/20 Nancy Elliott DO PCP - General Internal Medicine 06/26/20 08/23/20 Shawanda Oliver MD PCP - General Internal Medicine 08/24/20 10/31/21 Noah Parks [address] [place] [address] PCP - General Internal Medicine 11/01/21 11/25/21 Carmina Varela MD [address] [place] [address] PCP - General Internal Medicine 11/26/21 Nancy Elliott, Internal Medicine 01/28/14 08/31/22 Db Martino MD [address] [place] [address] Specialist Cardiology 09/01/22 Dario Ling [address] [place] [address] Specialist Pulmonology 09/01/22 documented as of this encounter
--- OUTSIDE RECORDS SUMMARY | 2024-08-28 19:30 | XMS_ITS | Encounter Summary ---
Author Organization [facility] Address [address] [place] [address] Care Team Providers Care Emergency Management Director Name Role Phone JarenbeatricedeanConnordavedexter Primary Care Provider Unavailabl e Nancy Elliott DO Unavailable Unavailable Nancy Elliott DO Primary Care Pro vider Unavailable Shawanda Oliver MD Primary Care Provider Noah Gramajo Primary Care Provider [phone] Carmina Varela MD Primary Care Prov ider Db Martion MD Unavailable Unavailable Dario Ling Unavailable Unavailable Reason for Visit * Reason Comments E-prescribe Rx Request Encounter Details Date Type Department Care Team Description 06/23/2017 Refill Adult Medicine [address] [address] Nancy Elliott DO E-prescribe Rx Request Social [...] NO Patients current insurance carrier is: Payor: [employer] FFS / Plan: FFS HMO $0 [place] [id number] / Product Type: MEDICAID RISK documented in this encounter Plan of Treatment Not on file documented as of this encounter Visit Diagnoses Not on filedocumented in this encounter Care Teams Emergency Management Director Relationship Specialty Start Date End Date Radha Mccray PCP - General 01/28/14 06/25/20 Nancy Elliott DO PCP - General Internal Medicine 06/26/20 08/23/20 Shawanda Oliver MD PCP - General Internal Medicine 08/24/20 10/31/21 Noah Parks [address] [place] [address] PCP - General Internal Medicine 11/01/21 11/25/21 Carmina Varela MD [address] [place] [address] PCP - General Internal Medicine 11/26/21 Nancy Elliott DO Internal Medicine 01/28/14 08/31/22 Db Martino MD [address] [place] [address] Specialist Cardiology 09/01/22 Dario Ling [address] [place] [address] Specialist Pulmonology 09/01/22 documented as of this encounter
--- OUTSIDE RECORDS SUMMARY | 2024-08-28 19:30 | XMS_ITS | Encounter Summary ---
Author Organization [facility] Address [address] [place] [address] Care Team Providers Care Parking Enforcement Technician Name Role Phone Radha Mccray Primary Care Provider Unavailabl e Krakoruslan Colasacco, Nancy DO Unavailable Unavailable [place] Colasacco, Nancy DO Primary Care Pro vider Unavailable Shawanda Oliver MD Primary Care Provider Noah Gramajo Primary Care Provider [phone] Carmina Varela MD Primary Care Prov ider Db Martino MD Unavailable Unavailable Dario Ling Unavailable Unavailable Encounter Details Date Type Department Care Team Description 08/05/2016 Hospital Medical Records [address] [place] [address] Tay Booth Social History Tobacco Use Types [...] on filedocumented in this encounter Care Teams Parking Enforcement Technician Relationship Specialty Start Date End Date Radha Mccray PCP - General 01/28/14 06/25/20 Nancy Elliott DO PCP - General Internal Medicine 06/26/20 08/23/20 Shawanda Oliver MD PCP - General Internal Medicine 08/24/20 10/31/21 Noah Parks [address] [place] [address] PCP - General Internal Medicine 11/01/21 11/25/21 Carmina Varela MD [address] [place] [address] PCP - General Internal Medicine 11/26/21 Nancy Elliott, DO Internal Medicine 01/28/14 08/31/22 Db Martino MD [address] [place] [address] Specialist Cardiology 09/01/22 Dario Ling [address] [place] [address] Specialist Pulmonology 09/01/22 documented as of this encounter
--- OUTSIDE RECORDS SUMMARY | 2024-08-28 19:30 | XMS_ITS | Encounter Summary ---
Author Organization [facility] Address [address] [place] [address] Care Team Providers Care Information Security Analyst Name Role Phone Radha Mccray Primary Care Provider Unavailabl e Ariadne BartonoStephonNancy DO Unavailable Unavailable Mariamakoraviak Micko Nancy DO Primary Care Pro vider Unavailable Shawanda Oliver MD Primary Care Provider Noah Gramajo Primary Care Provider [phone] Carmina Varela MD Primary Care Prov ider Db Martino MD Unavailable Unavailable Dario Ling Unavailable Unavailable Encounter Details Date Type Department Care Team Description 03/30/2018 Hospital Medical Records [address] [place] [address] Social History Tobacco Use Types Packs/Day Years [...] filedocumented in this encounter Care Teams Information Security Analyst Relationship Specialty Start Date End Date Radha Mccray PCP - General 01/28/14 06/25/20 Nancy Elliott DO PCP - General Internal Medicine 06/26/20 08/23/20 Shawanda Oliver MD PCP - General Internal Medicine 08/24/20 10/31/21 Noah Parks [address] [place] [address] PCP - General Internal Medicine 11/01/21 11/25/21 Carmina Varela MD [address] [place] [address] PCP - General Internal Medicine 11/26/21 Nancy Elliott, Internal Medicine 01/28/14 08/31/22 Db Martino MD [address] [place] [address] Specialist Cardiology 09/01/22 Dario Ling [address] [place] [address] Specialist Pulmonology 09/01/22 documented as of this encounter
--- OUTSIDE RECORDS SUMMARY | 2024-08-28 19:30 | XMS_ITS | Encounter Summary ---
Author Organization [facility] Address [address] [place] [address] Care Team Providers Care Transfer Car Operator Drier Name Role Phone Radha Mccray Primary Care Provider Unavailabl e Mariamakoruslan Colasacco Nancy DO Unavailable Unavailable [place] Colasacco, Nancy DO Primary Care Pro vider Unavailable Shawanda Oliver MD Primary Care Provider Noah Gramajo Primary Care Provider [phone] Carmina Varela MD Primary Care Prov ider Db Martino MD Unavailable Unavailable Dario Ling Unavailable Unavailable Encounter Details Date Type Department Care Team Description 09/17/2016 Night Triage Doc Medical Records [address] [place] [address] Abstract, Provider Social History Tobacco Use Types [...] on filedocumented in this encounter Care Teams Transfer Car Operator Drier Relationship Specialty Start Date End Date Radha Mccray PCP - General 01/28/14 06/25/20 Nancy Elliott DO PCP - General Internal Medicine 06/26/20 08/23/20 Shawanda Oliver MD PCP - General Internal Medicine 08/24/20 10/31/21 Noah Parks [address] [place] [address] PCP - General Internal Medicine 11/01/21 11/25/21 Carmina Varela MD [address] [place] [address] PCP - General Internal Medicine 11/26/21 Nancy Elliott, Internal Medicine 01/28/14 08/31/22 Db Martino MD [address] [place] [address] Specialist Cardiology 09/01/22 Dario Ling [address] [place] [address] Specialist Pulmonology 09/01/22 documented as of this encounter
--- OUTSIDE RECORDS SUMMARY | 2024-08-28 19:30 | XMS_ITS | Encounter Summary ---
Author Organization [facility] [place] [address] Care Team Providers Care Machine Accountant Name Role Phone Carmina Ayala MD Primary Care Prov ider Reason for Visit * Reason Onset Date Comments body pain 08/25/2024 Right side Encounter Details Date Type Department Care Team (Late st Contact Info) Description 08/25/2024 Telephone Adult Medicine [facility] [address] [place] [phone] Carmina Ayala MD [address] [place] [address] body pain (Right side) Social History Tobacco Use Types Packs/Day Years [...] for your loved ones. For example, child support officer or elderly care for an older adult? [...] as of this encounter Progress Notes * Shilo Hutchison RN - 08/25/2024 2:51 PM EDT Called and spoke with pt. Pt c/o RUQ pain on and off since yesterday. Pt is currently having pain and has been there for 30 mins already sts 12/04 is is moaning on phone from pain. Denies fever deniesn/v/d denies constipation issues last bm yesterday normal no blood. pt has had gb and appy removed.Pt advised to go to er for evaluation with moderate to severe abd pain. * Anastasia Kirkland - 08/25/2024 2:33 PM EDT The patient is calling due to experiencing body pains on her right side and was wondering if she can be seen by anyone in the office. She has been having this pain for the last 2 days and is concern as to why. Patient has no other symptoms. Please Advise documented in this encounter Plan of Treatment Upcoming Encounters Date Type Department Care Team (Late st Contact Info) Description 10/17/2024 10:00 AM EDT Appointment [facility] Endoscopy [address] [place] [phone] Jericho Vargas, DO [address] [facility] [address] [place] [address] documented as of this encounter Visit Diagnoses Not on filedocumented in this encounter Care Teams Machine Accountant Relationship Specialty Start Date End Date Carmina Ayala MD [address] [place] [address] PCP - General Internal Medicine 03/09/24 documented as of this encounter
--- OUTSIDE RECORDS SUMMARY | 2024-08-28 19:30 | XMS_ITS | Encounter Summary ---
Author Organization [facility] Address [address] [place] [address] Care Team Providers Care Grey Goods Marker Name Role Phone Carmina Varela MD Primary Care Prov ider Db Martino MD Unavailable Unavailable Dario Ling Unavailable Unavailable Encounter Details Date Type Department Care Team Description 11/05/2022 Accounting Machine Servicer Report Medical Records [address] [place] [address] Mariel Arellano FNP Social History Tobacco Use [...] was confirmed or suspected to have Coronavirus/COVID-19? Unable to assess 10/13/2022 7:49 AM EDT documented as of this encounter Plan of Treatment Not on file documented as of this encounter Visit Diagnoses Not on filedocumented in this encounter Care Teams Grey Goods Marker Relationship Specialty Start Date End Date Carmina Varela MD [address] [place] [address] PCP - General Internal Medicine 11/26/21 Db Martino MD [address] [place] [address] Specialist Cardiology 09/01/22 Dario Ling [address] [place] [address] Specialist Pulmonology 09/01/22 documented as of this encounter
--- OUTSIDE RECORDS SUMMARY | 2024-08-28 19:30 | XMS_ITS | Encounter Summary ---
Author Organization [facility] Address [address] [place] [address] Care Team Providers Care Protection Agent Name Role Phone Radha Mccray Primary Care Provider Unavailabl e Mariamakoruslan Colasacco Nancy DO Unavailable Unavailable [place]rak[place]iak Colasacco, Nancy DO Primary Care Pro vider Unavailable Shawanda Oliver MD Primary Care Provider Noah Gramajo Primary Care Provider [phone] Carmina Varela MD Primary Care Prov ider Db Martino MD Unavailable Unavailable Dario Ling Unavailable Unavailable Encounter Details Date Type Department Care Team Description 01/15/2017 Lead Auditor Report Medical Records [address] [place] [address] Sandoval Patton MD Social History Tobacco Use [...] on filedocumented in this encounter Care Teams Protection Agent Relationship Specialty Start Date End Date Radha Mccray PCP - General 01/28/14 06/25/20 Nancy Elliott DO PCP - General Internal Medicine 06/26/20 08/23/20 Shawanda Oliver MD PCP - General Internal Medicine 08/24/20 10/31/21 Noah Parks [address] [place] [address] PCP - General Internal Medicine 11/01/21 11/25/21 Carmina Varela MD [address] [place] [address] PCP - General Internal Medicine 11/26/21 Nancy Elliott DO Internal Medicine 01/28/14 08/31/22 Db Martino MD [address] [place] [address] Specialist Cardiology 09/01/22 Dario Ling [address] [place] [address] Specialist Pulmonology 09/01/22 documented as of this encounter
--- OUTSIDE RECORDS SUMMARY | 2024-08-28 19:30 | XMS_ITS | Encounter Summary ---
Author Organization [facility] Address [address] [place] [address] Care Team Providers Care Automobile Spring Repairer Name Role Phone Nancy Elliott DO Unavailable Unavailable Shawanda Oliver MD Primary Care Provider Noah Gramajo Primary Care Provider [phone] Carmina Varela MD Primary Care Prov ider Db Martino MD Unavailable Unavailable Dario Ling Unavailable Unavailable Reason for Visit * Reason Comments E-prescribe Rx Request Encounter Details Date Type Department Care Team Description 11/27/2020 Refill Adult Medicine [address] [address] Nancy Elliott DO E-prescribe Rx Request Social [...] carrier is: Payor: [facility] / Plan: [facility] [place]0 [facility] [id number] / Product Type: HMO [id number] documented in this encounter Plan of Treatment Not on file documented as of this encounter Visit Diagnoses Not on filedocumented in this encounter Care Teams Automobile Spring Repairer Relationship Specialty Start Date End Date Shawanda Oliver MD PCP - General Internal Medicine 08/24/20 10/31/21 Noah Parks [address] [place] [address] PCP - General Internal Medicine 11/01/21 11/25/21 Carmina Varela MD [address] [place] [address] PCP - General Internal Medicine 11/26/21 Nancy Elliott, DO Internal Medicine 01/28/14 08/31/22 Db Martino MD [address] [place] [address] Specialist Cardiology 09/01/22 Dario Ling [address] [place] [address] Specialist Pulmonology 09/01/22 documented as of this encounter
--- OUTSIDE RECORDS SUMMARY | 2024-08-28 19:30 | XMS_ITS | Encounter Summary ---
Author Organization [facility] Address [address] [place] [address] Care Team Providers Care Transportation Lead Name Role Phone Radha Mccray Primary Care Provider Unavailabl e Mariamakoruslan Colbarrettcco Nancy DO Unavailable Unavailable [place]rakowiak Colasacco, Nancy DO Primary Care Pro vider Unavailable Shawanda Oliver MD Primary Care Provider Noah Gramajo Primary Care Provider [phone] Carmina Varela MD Primary Care Prov ider Db Martino MD Unavailable Unavailable Dario Ling Unavailable Unavailable Encounter Details Date Type Department Care Team Description 05/12/2018 Clinical Massage Therapist Report Medical Records [address] [place] [address] Mariel Arellano, RENÉ Social History Tobacco Use [...] on filedocumented in this encounter Care Teams Transportation Lead Relationship Specialty Start Date End Date Radha Mccray PCP - General 01/28/14 06/25/20 Nancy Elliott DO PCP - General Internal Medicine 06/26/20 08/23/20 Shawanda Oliver MD PCP - General Internal Medicine 08/24/20 10/31/21 Noah Parks [address] [place] [address] PCP - General Internal Medicine 11/01/21 11/25/21 Carmina Varela MD [address] [place] [address] PCP - General Internal Medicine 11/26/21 Nancy Elliott, Internal Medicine 01/28/14 08/31/22 Db Martino MD [address] [place] [address] Specialist Cardiology 09/01/22 Dario Ling [address] [place] [address] Specialist Pulmonology 09/01/22 documented as of this encounter
--- OUTSIDE RECORDS SUMMARY | 2024-08-28 19:30 | XMS_ITS | Encounter Summary ---
Author Organization [facility] Address [address] [place] [address] Care Team Providers Care Automated Weaver Name Role Phone Radha Mccray Primary Care Provider Unavailabl e Setphon Elliottabela DO Unavailable Unavailable Mariamakoraviak Micko Nancy DO Primary Care Pro vider Unavailable Shawanda Oliver MD Primary Care Provider Noah Gramajo Primary Care Provider [phone] Carmina Varela MD Primary Care Prov ider Db Martino MD Unavailable Unavailable Dario Ling Unavailable Unavailable Encounter Details Date Type Department Care Team Description 03/28/2018 Hospital Medical Records [address] [place] [address] Social History Tobacco Use Types Packs/Day Years [...] on filedocumented in this encounter Care Teams Automated Weaver Relationship Specialty Start Date End Date Radha Mccray PCP - General 01/28/14 06/25/20 Nancy Elliott DO PCP - General Internal Medicine 06/26/20 08/23/20 Shawanda Oliver MD PCP - General Internal Medicine 08/24/20 10/31/21 Noah Parks [address] [place] [address] PCP - General Internal Medicine 11/01/21 11/25/21 Carmina Varela MD [address] [place] [address] PCP - General Internal Medicine 11/26/21 Nancy Elliott, Internal Medicine 01/28/14 08/31/22 Db Martino MD [address] [place] [address] Specialist Cardiology 09/01/22 Dario Ling [address] [place] [address] Specialist Pulmonology 09/01/22 documented as of this encounter
--- OUTSIDE RECORDS SUMMARY | 2024-08-28 19:30 | XMS_ITS | Encounter Summary ---
Author Organization [facility] Address [address] [place] [address] Care Team Providers Care Grinding Operator Name Role Phone Radha Mccray Primary Care Provider Unavailabl e Krakoruslan Colasacco, Nancy DO Unavailable Unavailable Krakowiak Colasacco, Nancy DO Primary Care Pro vider Unavailable Shawanda Oliver MD Primary Care Provider Noah Gramajo Primary Care Provider [phone] Carmina Varela MD Primary Care Prov ider Db Martino MD Unavailable Unavailable Dario Ling Unavailable Unavailable Encounter Details Date Type Department Care Team Description 08/04/2016 Hospital Medical Records [address] [place] [address] Patsy Rivera NP Social History Tobacco Use [...] on filedocumented in this encounter Care Teams Grinding Operator Relationship Specialty Start Date End Date Radha Mccray PCP - General 01/28/14 06/25/20 Nancy Elliott DO PCP - General Internal Medicine 06/26/20 08/23/20 Shawanda Oliver MD PCP - General Internal Medicine 08/24/20 10/31/21 Noah Parks [address] [place] [address] PCP - General Internal Medicine 11/01/21 11/25/21 Carmina Varela MD [address] [place] [address] PCP - General Internal Medicine 11/26/21 Nancy Elliott, DO Internal Medicine 01/28/14 08/31/22 Db Martino MD [address] [place] [address] Specialist Cardiology 09/01/22 Dario Ling [address] [place] [address] Specialist Pulmonology 09/01/22 documented as of this encounter
--- OUTSIDE RECORDS SUMMARY | 2024-08-28 19:30 | XMS_ITS | Encounter Summary ---
Author Organization [facility] Address [address] [place] [address] Care Team Providers Care Water Service Dispatcher Name Role Phone Radha Mccray Primary Care Provider Unavailabl e Nancy Elliott DO Unavailable Unavailable Nancy Elliott DO Primary Care Pro vider Unavailable Shawanda Oliver MD Primary Care Provider Noah Gramajo Primary Care Provider [phone] Carmina Varela MD Primary Care Prov ider Db Martino MD Unavailable Unavailable Dario Ling Unavailable Unavailable Reason for Referral * Non JEFFERY (Routine) - Closed Specialty Diagnoses / Procedures Referred By Mitra pelaez Referred To Contact Nephrology Procedures REFERRAL TO NEPHROLOGY Nancy Elliott DO [address] [place] [address] [place] [address] [place] [address] Referral ID Status Reason Start Date Expiration Date Visits Re quested Visits Authorized [id number] Closed 10/21/2018 10/21/2019 1 1 Reason for Visit * Reason Onset Date Comments Bronc Breaker Feedback 10/18/2018 nephrology Encounter Details Date Type Department Care Team Description 10/18/2018 Telephone Adult Medicine [address] [address] Nancy Elliott DO Bronc Breaker Feedback (nephrology) Social History Tobacco Use Types Packs/Day Years [...] Telephone Encounter - Nancy Valdivia DO - 10/21/2018 2:39 PM EDT New ref signed * Telephone Encounter - Alejandra Hopson - 10/18/2018 12:08 PM EDT Hello, There must of been some confusion on the previous nephrology order that was placed for this patientas it states [place]. Per the patient she wants to be seen in [place] for Nephrology due to transportation issues, I have pended you a new order as Dr. Ngo and Naty both work out of our [place] office. Thank You, Alejandra Spring [facility] Referrals Rep. Ext. [phone] documented in this encounter Plan of Treatment Not on file documented as of this encounter Visit Diagnoses Not on filedocumented in this encounter Care Teams Water Service Dispatcher Relationship Specialty Start Date End Date Radha Mccray PCP - General 01/28/14 06/25/20 Nancy Elliott DO PCP - General Internal Medicine 06/26/20 08/23/20 Shawanda Oliver MD PCP - General Internal Medicine 08/24/20 10/31/21 Noah Parks [address] [place] [address] PCP - General Internal Medicine 11/01/21 11/25/21 Carmina Varela MD [address] [place] [address] PCP - General Internal Medicine 11/26/21 Nancy Elliott, DO Internal Medicine 01/28/14 08/31/22 Db Martino MD [address] [place] [address] Specialist Cardiology 09/01/22 Dario Ling [address] [place] [address] Specialist Pulmonology 09/01/22 documented as of this encounter
--- OUTSIDE RECORDS SUMMARY | 2024-08-28 19:30 | XMS_ITS | Encounter Summary ---
Author Organization [facility] Address [address] [place] [address] Care Team Providers Care Security Rover Name Role Phone Radha Mccray Primary Care Provider Unavailabl e Krakoruslan Colasacco Nancy DO Unavailable Unavailable Krakowiak Colasacco, Nancy DO Primary Care Pro vider Unavailable Shawanda Oliver MD Primary Care Provider Noah Gramajo Primary Care Provider [phone] Carmina Varela MD Primary Care Prov ider Db Martino MD Unavailable Unavailable Dario Ling Unavailable Unavailable Encounter Details Date Type Department Care Team Description 02/04/2017 Lodge Sales Associate Report Medical Records [address] [place] [address] Sandra Benavides MD Social History Tobacco Use [...] on filedocumented in this encounter Care Teams Security Rover Relationship Specialty Start Date End Date Radha Mccray PCP - General 01/28/14 06/25/20 Nancy Elliott DO PCP - General Internal Medicine 06/26/20 08/23/20 Shawanda Oliver MD PCP - General Internal Medicine 08/24/20 10/31/21 Noah Parks [address] [place] [address] PCP - General Internal Medicine 11/01/21 11/25/21 Carmina Varela MD [address] [place] [address] PCP - General Internal Medicine 11/26/21 Nancy Elliott, Internal Medicine 01/28/14 08/31/22 Db Martino MD [address] [place] [address] Specialist Cardiology 09/01/22 Dario Ling [address] [place] [address] Specialist Pulmonology 09/01/22 documented as of this encounter
--- OUTSIDE RECORDS SUMMARY | 2024-08-28 19:30 | XMS_ITS | Encounter Summary ---
Author Organization [facility] Address [address] [place] [address] Care Team Providers Care Systems Auditor Name Role Phone JarenbeatricedeanConnordavedexter Primary Care Provider Unavailabl e Nancy Elliott DO Unavailable Unavailable Stephon Elliottabela DO Primary Care Pro vider Unavailable Shawanda Oliver MD Primary Care Provider Noah Gramajo Primary Care Provider [phone] Carmina Varela MD Primary Care Prov ider Db Martino MD Unavailable Unavailable Dario Ling Unavailable Unavailable Reason for Visit * Reason Comments E-prescribe Rx Request Encounter Details Date Type Department Care Team Description 05/30/2018 Refill Adult Medicine [address] [address] Nancy Elliott DO E-prescribe Rx Request Social [...] encounter Miscellaneous Notes * Telephone Encounter - Su Knight M.A. - 05/31/2018 10:40 AM EST Lab Results Component Value Date CHOL 141 05/25/2018 LDL 55 05/25/2018 HDL 61 05/25/2018 TRIG 125 05/25/2018 Jessica - 05/25/2018 * Telephone Encounter - Cadence Gillespie - 05/31/2018 10:33 AM EST Patient would like script to be: E-PRESCRIBED/FAXED TO PHARMACY WHEN WAS THE PATIENT'S LAST APPOINTMENT IN ADULT MEDICINE? [id number] WHEN WAS THE LAST TIME THE PATIENT SAW THEIR PCP? Same as above Does patient have an upcoming appointment? No-unable to reach left [facility] to call for appointment due to refill request. (THE MEDICATION REQUESTED IS ON THE MED [...] N/A Patients current insurance carrier is: Payor: [id number] / Plan: [employer] / Product Type: MEDICAID RISK documented [...] Hip bursitis, left Enthesopathy of hip region Left knee pain, unspecified chronicity documented in this encounter Care Teams Systems Auditor Relationship Specialty Start Date End Date Radha Mccray PCP - General 01/28/14 06/25/20 Nancy Elliott DO PCP - General Internal Medicine 06/26/20 08/23/20 Shawanda Oliver MD PCP - General Internal Medicine 08/24/20 10/31/21 Noah Parks [address] [place] [address] PCP - General Internal Medicine 11/01/21 11/25/21 Carmina Varela MD [address] [place] [address] PCP - General Internal Medicine 11/26/21 Nancy Elliott DO Internal Medicine 01/28/14 08/31/22 Db Martino MD [address] [place] [address] Specialist Cardiology 09/01/22 Dario Ling [address] [place] [address] Specialist Pulmonology 09/01/22 documented as of this encounter
--- OUTSIDE RECORDS SUMMARY | 2024-08-28 19:30 | XMS_ITS | Encounter Summary ---
Author Organization [facility] Address [address] [place] [address] Care Team Providers Care Abstract Searcher Name Role Phone Carmina Varela MD Primary Care Prov ider Db Martino MD Unavailable Unavailable Dario Ling Unavailable Unavailable Encounter Details Date Type Department Care Team Description 12/25/2022 Camouflage Specialist Report Medical Records [address] [place] [address] Mariel Arellano FNP Social History Tobacco Use [...] on filedocumented in this encounter Care Teams Abstract Searcher Relationship Specialty Start Date End Date Carmina Varela MD [address] [place], [place] [id number] PCP - General Internal Medicine 11/26/21 Db Martino MD [address] [place] [address] Specialist Cardiology 09/01/22 Dario Ling [address] [place] [address] Specialist Pulmonology 09/01/22 documented as of this encounter
--- OUTSIDE RECORDS SUMMARY | 2024-08-28 19:30 | XMS_ITS | Encounter Summary ---
Author Organization [facility] Address [address] [place] [address] Care Team Providers Care Heating Engineer Name Role Phone Radha Mccray Primary Care Provider Unavailabl e Mariamakoruslan Colasacco Nancy DO Unavailable Unavailable Krakowiak Colasacco, Nancy DO Primary Care Pro vider Unavailable Shawanda Oliver MD Primary Care Provider Noah Gramajo Primary Care Provider [phone] Carmina Varela MD Primary Care Prov ider Db Martino MD Unavailable Unavailable Dario Ling Unavailable Unavailable Encounter Details Date Type Department Care Team Description 04/15/2018 Gripper Machine Operator Report Medical Records [address] [place] [address] Abstract, Provider Social History Tobacco Use Types [...] on filedocumented in this encounter Care Teams Heating Engineer Relationship Specialty Start Date End Date Radha Mccray PCP - General 01/28/14 06/25/20 Nancy Elliott DO PCP - General Internal Medicine 06/26/20 08/23/20 Shawanda Oliver MD PCP - General Internal Medicine 08/24/20 10/31/21 Noah Parks [address] [place] [address] PCP - General Internal Medicine 11/01/21 11/25/21 Carmina Varela MD [address] [place] [address] PCP - General Internal Medicine 11/26/21 Nancy Elliott, Internal Medicine 01/28/14 08/31/22 Db Martino MD [address] [place] [address] Specialist Cardiology 09/01/22 Dario Ling [address] [place] [address] Specialist Pulmonology 09/01/22 documented as of this encounter
--- OUTSIDE RECORDS SUMMARY | 2024-08-28 19:30 | XMS_ITS | Encounter Summary ---
Author Organization [facility] Address [address] [place] [address] Care Team Providers Care Stenotypist Name Role Phone Nancy Elliott DO Unavailable Unavailable Shawanda Oliver MD Primary Care Provider Noah Gramajo Primary Care Provider [phone] Carmina Varela MD Primary Care Prov ider Db Martino MD Unavailable Unavailable Dario Ling Unavailable Unavailable Encounter Details Date Type Department Care Team Description 11/27/2020 Blender/Braze Applicator Report Medical Records [address] [place] [address] Abstract, Provider Social History Tobacco Use Types [...] on filedocumented in this encounter Care Teams Stenotypist Relationship Specialty Start Date End Date Shawanda Oliver MD PCP - General Internal Medicine 08/24/20 10/31/21 Noah Parks [address] [place] [address] PCP - General Internal Medicine 11/01/21 11/25/21 Carmina Varela MD [address] [place] [address] PCP - General Internal Medicine 11/26/21 Nancy Elliott, DO Internal Medicine 01/28/14 08/31/22 Db Martino MD [address] [place] [address] Specialist Cardiology 09/01/22 Dario Ling [address] [place] [address] Specialist Pulmonology 09/01/22 documented as of this encounter
--- OUTSIDE RECORDS SUMMARY | 2024-08-28 19:30 | XMS_ITS | Encounter Summary ---
Author Organization [facility] Address [address] [place] [address] Care Team Providers Care Vacuum Pan Tender Name Role Phone Radha Mccray Primary Care Provider Unavailabl e Krakoruslan Colasacco, Nancy DO Unavailable Unavailable Krakowiak Colasacco, Nancy DO Primary Care Pro vider Unavailable Shawanda Oliver MD Primary Care Provider Noah Gramajo Primary Care Provider [phone] Carmina Vareal MD Primary Care Prov ider Db Martino MD Unavailable Unavailable Dario Ling Unavailable Unavailable Encounter Details Date Type Department Care Team Description 12/22/2016 Cfo Report Medical Records [address] [place] [address] Jonathan Maier Social History Tobacco Use Types Packs/Day Years [...] on filedocumented in this encounter Care Teams Vacuum Pan Tender Relationship Specialty Start Date End Date Radha Mccray PCP - General 01/28/14 06/25/20 Nancy Elliott DO PCP - General Internal Medicine 06/26/20 08/23/20 Shawanda Oliver MD PCP - General Internal Medicine 08/24/20 10/31/21 Noah Parks [address] [place] [address] PCP - General Internal Medicine 11/01/21 11/25/21 Carmina Varela MD [address] [place] [address] PCP - General Internal Medicine 11/26/21 Nancy Elliott, Internal Medicine 01/28/14 08/31/22 Db Martino MD [address] [place] [address] Specialist Cardiology 09/01/22 Dario Ling [address] [place] [address] Specialist Pulmonology 09/01/22 documented as of this encounter
--- OUTSIDE RECORDS SUMMARY | 2024-08-28 19:30 | XMS_ITS | Encounter Summary ---
Author Organization [facility] Address [address] [place] [address] Care Team Providers Care Crew Trainer Name Role Phone Radha Mccray Primary Care Provider Unavailabl e Krakoruslan Colasacco Nancy DO Unavailable Unavailable Krakowiak Colasacco, Nancy DO Primary Care Pro vider Unavailable Shawanda Oliver MD Primary Care Provider Noah Gramajo Primary Care Provider [phone] Carmina Varela MD Primary Care Prov ider Db Martino MD Unavailable Unavailable Dario Ling Unavailable Unavailable Encounter Details Date Type Department Care Team Description 02/17/2017 Sky Line Yarder Report Medical Records [address] [place] [address] Sandra Benavides MD Social History Tobacco Use [...] on filedocumented in this encounter Care Teams Crew Trainer Relationship Specialty Start Date End Date Radha Mccray PCP - General 01/28/14 06/25/20 Nancy lEliott DO PCP - General Internal Medicine 06/26/20 08/23/20 Shawanda Oliver MD PCP - General Internal Medicine 08/24/20 10/31/21 Noah Parks [address] [place] [address] PCP - General Internal Medicine 11/01/21 11/25/21 Carmina Varela MD [address] [place] [address] PCP - General Internal Medicine 11/26/21 Nancy Elliott, Internal Medicine 01/28/14 08/31/22 Db Martino MD [address] [place] [address] Specialist Cardiology 09/01/22 Dario Ling [address] [place] [address] Specialist Pulmonology 09/01/22 documented as of this encounter
--- OUTSIDE RECORDS SUMMARY | 2024-08-28 19:31 | XMS_ITS | Encounter Summary ---
Author Organization [facility] Address [address] [place] [address] Care Team Providers Care Slitting And Shipping Supervisor Name Role Phone Radha Mccray Primary Care Provider Unavailabl e Mariamakoruslan Colasacco Nancy DO Unavailable Unavailable Krakowiak Colasacco, Nancy DO Primary Care Pro vider Unavailable Shawanda Oliver MD Primary Care Provider Noah Gramajo Primary Care Provider [phone] Carmina Varela MD Primary Care Prov ider Db Martino MD Unavailable Unavailable Dario Ling Unavailable Unavailable Encounter Details Date Type Department Care Team Description 05/04/2018 Cone Machine Operator Report Medical Records [address] [place] [address] Abstract, Provider Social History Tobacco Use Types [...] on filedocumented in this encounter Care Teams Slitting And Shipping Supervisor Relationship Specialty Start Date End Date Radha Mccray PCP - General 01/28/14 06/25/20 Nancy Elliott DO PCP - General Internal Medicine 06/26/20 08/23/20 Shawanda Oliver MD PCP - General Internal Medicine 08/24/20 10/31/21 Noah Parks [address] [place] [address] PCP - General Internal Medicine 11/01/21 11/25/21 Carmina Varela MD [address] [place] [address] PCP - General Internal Medicine 11/26/21 Nancy Elliott, Internal Medicine 01/28/14 08/31/22 Db Martino MD [address] [place] [address] Specialist Cardiology 09/01/22 Dario Ling [address] [place] [address] Specialist Pulmonology 09/01/22 documented as of this encounter
--- OUTSIDE RECORDS SUMMARY | 2024-08-28 19:31 | XMS_ITS | Encounter Summary ---
Author Organization [facility] Address [address] [place] [address] Care Team Providers Care Candy Bar Attendant Name Role Phone Nancy Elliott DO Unavailable Unavailable Shawanda Oliver MD Primary Care Provider Noah Gramajo Primary Care Provider [phone] Carmina Varela MD Primary Care Prov ider Db Martino MD Unavailable Unavailable Dario Ling Unavailable Unavailable Encounter Details Date Type Department Care Team Description 05/16/2021 Claims Associate Report Medical Records [address] [place] [address] Mariel Arellano, RENÉ Social History Tobacco Use [...] on filedocumented in this encounter Care Teams Candy Bar Attendant Relationship Specialty Start Date End Date Shawanda Oliver MD PCP - General Internal Medicine 08/24/20 10/31/21 Noah Parks [address] [place], [place] [address] PCP - General Internal Medicine 11/01/21 11/25/21 Carmina Varela MD [address] [place] [address] PCP - General Internal Medicine 11/26/21 Nancy Elliott, DO Internal Medicine 01/28/14 08/31/22 Db Martino MD [address] [place] [address] Specialist Cardiology 09/01/22 Dario Ling [address] [place] [address] Specialist Pulmonology 09/01/22 documented as of this encounter
--- OUTSIDE RECORDS SUMMARY | 2024-08-28 19:31 | XMS_ITS | Encounter Summary ---
Author Organization [facility] Address [address] [place] [address] Care Team Providers Care Insulation Board Back Tender Name Role Phone Nancy Elliott DO Unavailable Unavailable Shawanda Oliver MD Primary Care Provider Noah Gramajo Primary Care Provider [phone] Carmina Varela MD Primary Care Prov ider Db Martino MD Unavailable Unavailable Dario Ling Unavailable Unavailable Encounter Details Date Type Department Care Team Description 08/15/2021 Carpenter Assembler Report Medical Records [address] [place] [address] Db Martino MD Social History Tobacco Use [...] on filedocumented in this encounter Care Teams Insulation Board Back Tender Relationship Specialty Start Date End Date Shawanda Oliver MD PCP - General Internal Medicine 08/24/20 10/31/21 Noah Parks [address] [place] [address] PCP - General Internal Medicine 11/01/21 11/25/21 Carmina Varela MD [address] [place] [address] PCP - General Internal Medicine 11/26/21 Nancy Elliott, DO Internal Medicine 01/28/14 08/31/22 Db Martino MD [address] [place] [address] Specialist Cardiology 09/01/22 Dario Ling [address] [place] [address] Specialist Pulmonology 09/01/22 documented as of this encounter
--- OUTSIDE RECORDS SUMMARY | 2024-08-28 19:31 | XMS_ITS | Encounter Summary ---
Author Organization [facility] Address [address] [place] [address] Care Team Providers Care Mineral Surveying Technician Name Role Phone Nancy Elliott DO Unavailable Unavailable Shawanda Oliver MD Primary Care Provider Noah Gramajo Primary Care Provider [phone] Carmina Varela MD Primary Care Prov ider Db Martino MD Unavailable Unavailable Dario Ling Unavailable Unavailable Reason for Visit * Reason Comments E-prescribe Rx Request Encounter Details Date Type Department Care Team Description 09/13/2021 Refill Adult Medicine [address] [address] Citlalli Zhong PA-C E-prescribe Rx Request Social History Tobacco Use [...] Miscellaneous Notes * Telephone Encounter - Ebony Jarvis M.A. - 09/13/2021 11:09 AM EDT Lab Results Component Value Date HGBA1C 11.6 03/13/2021 MALBUR 21.6 09/14/2020 MALBCR 127.0 09/14/2020 CHOL 144 09/14/2020 LDL 64 09/14/2020 HDL 58 09/14/2020 TRIG 113 09/14/2020 GLU 328 03/13/2021 CREAT 1.02 03/13/2021 Pending appt 09/30/21 documented in this encounter Plan of Treatment Not on file documented as of this encounter Visit Diagnoses Not on filedocumented in this encounter Care Teams Mineral Surveying Technician Relationship Specialty Start Date End Date Shawanda Oliver MD PCP - General Internal Medicine 08/24/20 10/31/21 Noah Parks [address] [place] [address] PCP - General Internal Medicine 11/01/21 11/25/21 Carmina Varela MD [address] [place] [address] PCP - General Internal Medicine 11/26/21 Nancy Elliott, DO Internal Medicine 01/28/14 08/31/22 Db Martino MD [address] [place] [address] Specialist Cardiology 09/01/22 Dario Ling [address] [place] [address] Specialist Pulmonology 09/01/22 documented as of this encounter
--- OUTSIDE RECORDS SUMMARY | 2024-08-28 19:31 | XMS_ITS | Encounter Summary ---
Author Organization [facility] Address [address] [place] [address] Care Team Providers Care Supervisor [place] Name Role Phone Nancy Elliott DO Unavailable Unavailable Shawanda Oliver MD Primary Care Provider Noah Gramajo Primary Care Provider [phone] Carmina Varela MD Primary Care Prov ider Db Martino MD Unavailable Unavailable Dario Ling Unavailable Unavailable Encounter Details Date Type Department Care Team Description 01/09/2021 Student Outreach Coordinator Report Medical Records [address] [place] [address] Abstract, Provider Social History Tobacco Use Types [...] filedocumented in this encounter Care Teams Supervisor [place] Relationship Specialty Start Date End Date Shawanda Oliver MD PCP - General Internal Medicine 08/24/20 10/31/21 Noah Parks [address] [place] [address] PCP - General Internal Medicine 11/01/21 11/25/21 Carmina Varela MD [address] [place] [address] PCP - General Internal Medicine 11/26/21 Nancy Elliott, DO Internal Medicine 01/28/14 08/31/22 Db Martino MD [address] [place] [address] Specialist Cardiology 09/01/22 Dario Ling [address] [place] [address] Specialist Pulmonology 09/01/22 documented as of this encounter
--- OUTSIDE RECORDS SUMMARY | 2024-08-28 19:31 | XMS_ITS | Encounter Summary ---
Author Organization [facility] Address [address] [place] [address] Care Team Providers Care Vacuum Technician Name Role Phone Radha Mccray Primary Care Provider Unavailabl e Krak[place]lan Colasacco Nancy DO Unavailable Unavailable [place] Colasacco, Nancy DO Primary Care Pro vider Unavailable Shawanda Oliver MD Primary Care Provider Noah Gramajo Primary Care Provider [phone] Carmina Varela MD Primary Care Prov ider Db Martino MD Unavailable Unavailable Dario Ling Unavailable Unavailable Encounter Details Date Type Department Care Team Description 12/02/2017 Hospital Medical Records [address] [place] [address] Daria Cardona Social History Tobacco Use Types Packs/Day Years [...] filedocumented in this encounter Care Teams Vacuum Technician Relationship Specialty Start Date End Date Radha Mccray PCP - General 01/28/14 06/25/20 Nancy Elliott DO PCP - General Internal Medicine 06/26/20 08/23/20 Shawanda Oliver MD PCP - General Internal Medicine 08/24/20 10/31/21 Noah Parks [address] [place] [address] PCP - General Internal Medicine 11/01/21 11/25/21 Carmina Varela MD [address] [place] [address] PCP - General Internal Medicine 11/26/21 Nancy Elliott, Internal Medicine 01/28/14 08/31/22 Db Martino MD [address] [place] [address] Specialist Cardiology 09/01/22 Dario Ling [address] [place] [address] Specialist Pulmonology 09/01/22 documented as of this encounter
--- OUTSIDE RECORDS SUMMARY | 2024-08-28 19:31 | XMS_ITS | Encounter Summary ---
Author Organization [facility] Address [address] [place] [address] Care Team Providers Care Concierge Name Role Phone Nancy Elliott DO Unavailable Unavailable Nancy Elliott DO Primary Care Pro vider Unavailable Shawanda Oliver MD Primary Care Provider Noah Gramajo Primary Care Provider [phone] Carmina Varela MD Primary Care Prov ider Db Martino MD Unavailable Unavailable Dario Ling Unavailable Unavailable Reason for Visit * Reason Onset Date Comments [facility] 07/24/2020 Encounter Details Date Type Department Care Team Description 07/24/2020 Telephone Adult Medicine B - [address] [address] Nancy Elilott DO [facility] Social History Tobacco Use Types Packs/Day Years [...] Miscellaneous Notes * Telephone Encounter - Cristela Atkinson 07/27/2020 2:44 PM EDT Pt calling and informed of hospital fu appt on 08-15-20 at 10:30am w/Dr Ron and pt confirms this appt/time is fine. * Telephone Encounter - Kathy Zavala R.N. - 07/27/2020 12:48 PM EDT Pt booked for 08/15 at 10:[address] Nancy Ron-Shea , message left for pt to call. she will need to confirm appointment or be rescheduled with triage * Telephone Encounter - Kathy Zavala R.N. - 07/24/2020 11:58 AM EDT On hold Unable get thrpaugh to enter extension * Telephone Encounter - Erika Rosales - 07/24/2020 10:32 AM EDT Hospital follow up appointment needed Hospital patient was treated at: [facility] Was this only an ER visit or was the patient admitted to the hospital? Admitted to hospital Date of visit if ER visit only: N/A If patient was admitted what was the date of discharge? 07-23-20 Reason/diagnosis for visit or stay: Heart failure When was the patient told to follow up? 1 week Was visit or stay related to an injury? NO If yes, what was the date of injury (DOI)? N/A If yes, was the injury due to N/A documented in this encounter Plan of Treatment Not on file documented as of this encounter Visit Diagnoses Not on filedocumented in this encounter Care Teams Concierge Relationship Specialty Start Date End Date Nancy Elliott DO PCP - General Internal Medicine 06/26/20 08/23/20 Shawanda Oliver MD PCP - General Internal Medicine 08/24/20 10/31/21 Noah Parks [address] [place] [address] PCP - General Internal Medicine 11/01/21 11/25/21 Carmina Varela MD [address] [place] [address] PCP - General Internal Medicine 11/26/21 Nancy Elliott, DO Internal Medicine 01/28/14 08/31/22 Db Martino MD [address] [place] [address] Specialist Cardiology 09/01/22 Dario Ling [address] [place] [address] Specialist Pulmonology 09/01/22 documented as of this encounter
--- OUTSIDE RECORDS SUMMARY | 2024-08-28 19:31 | XMS_ITS | Encounter Summary ---
Author Organization [facility] Address [address] [place] [address] Care Team Providers Care Drafter Assistant Name Role Phone Nancy Elliott DO Unavailable Unavailable Carmina Varela MD Primary Care Prov ider Db Martino MD Unavailable Unavailable Dario Ling Unavailable Unavailable Encounter Details Date Type Department Care Team Description 05/21/2022 Coating And Embossing Unit Operator Report Medical Records [address] [place] [address] Dario Ling Social History Tobacco Use Types [...] on filedocumented in this encounter Care Teams Drafter Assistant Relationship Specialty Start Date End Date Carmina Varela MD [address] [place] [address] PCP - General Internal Medicine 11/26/21 Nancy Elliott, DO Internal Medicine 01/28/14 08/31/22 Db Martino MD [address] [place] [address] Specialist Cardiology 09/01/22 Dario Ling [address] [place], [place] [phone] Specialist Pulmonology 09/01/22 documented as of this encounter
--- OUTSIDE RECORDS SUMMARY | 2024-08-28 19:31 | XMS_ITS | Encounter Summary ---
Author Organization [facility] Address [address] [place] [address] Care Team Providers Care Certified Teacher Assistant Name Role Phone Radha Mccray Primary Care Provider Unavailabl e Ariadne Colbarbarao Nancy DO Unavailable Unavailable [place] Colasacco Nancy DO Primary Care Pro vider Unavailable Shawanda Oliver MD Primary Care Provider Noah Gramajo Primary Care Provider [phone] Carmina Varela MD Primary Care Prov ider Db Martino MD Unavailable Unavailable Dario Ling Unavailable Unavailable Encounter Details Date Type Department Care Team Description 12/27/2017 Hospital Medical Records [address] [place] [address] Smita Russell Np Social History Tobacco Use [...] filedocumented in this encounter Care Teams Certified Teacher Assistant Relationship Specialty Start Date End Date Radha Mccray PCP - General 01/28/14 06/25/20 Nancy Elliott DO PCP - General Internal Medicine 06/26/20 08/23/20 Shawanda Oliver MD PCP - General Internal Medicine 08/24/20 10/31/21 Noah Parks [address] [place] [address] PCP - General Internal Medicine 11/01/21 11/25/21 Carmina Varela MD [address] [place] [address] PCP - General Internal Medicine 11/26/21 Nancy Elliott, DO Internal Medicine 01/28/14 08/31/22 Db Martino MD [address] [place] [address] Specialist Cardiology 09/01/22 Dario Ling [address] [place] [address] Specialist Pulmonology 09/01/22 documented as of this encounter
--- OUTSIDE RECORDS SUMMARY | 2024-08-28 19:31 | XMS_ITS | Encounter Summary ---
Author Organization [facility] Address [address] [place] [address] Care Team Providers Care Locomotive Crane Operator Helper Name Role Phone Carmina Varela MD Primary Care Prov ider Db Martino MD Unavailable Unavailable Dario Ling Unavailable Unavailable Encounter Details Date Type Department Care Team Description 03/23/2023 Hospital Medical Records [address] [place] [address] Patsy Rivera NP Social History Tobacco Use [...] on filedocumented in this encounter Care Teams Locomotive Crane Operator Helper Relationship Specialty Start Date End Date Carmina Varela MD [address] [place] [address] PCP - General Internal Medicine 11/26/21 Db Martino MD [address] [place] [address] Specialist Cardiology 09/01/22 Dario Ling [address] [place] [address] Specialist Pulmonology 09/01/22 documented as of this encounter
--- OUTSIDE RECORDS SUMMARY | 2024-08-28 19:31 | XMS_ITS | Encounter Summary ---
Author Organization [facility] Address [address] [place] [address] Care Team Providers Care Hand Assembler For Puller Over Name Role Phone Nancy Elliott DO Unavailable Unavailable Shawanda Oliver MD Primary Care Provider Noah Gramajo Primary Care Provider [phone] Carmina Varela MD Primary Care Prov ider Db Martino MD Unavailable Unavailable Dario Ling Unavailable Unavailable Reason for Referral * Non JEFFERY (Routine) - Authorized/Booked Specialty Diagnoses / Procedures Referred By Contloraine t Referred To Contact Physical Therapy Procedures REFERRAL TO PHYSICAL THERAPY Malu Bell PA [address] [place] [address] External Phys Thrpy Referral ID Status Reason Start Date Expiration Date V isits Requested Visits Authorized [id number] Authorized/B ooked 01/16/2021 1 1 Reason for Visit * Reason Onset Date Comments Back Pain 01/10/2021 Encounter Details Date Type Department Care Team Description 01/10/2021 Telephone Adult Medicine [address] [phone] Shawanda Oliver MD Back Pain Social History [...] traveled recently to another state outside of [place], [place], [place], [place], [place], [place], [place]? NO o If yes, did you quarantine [...] symptoms?: 2 WKS PCP: Shawanda Oliver Payor: [facility] / Plan: HMO $0 [place] [id number] / Product Type: HMO [id number] documented in this encounter Plan of Treatment Not on file documented as of this encounter Visit Diagnoses Not on filedocumented in this encounter Care Teams Hand Assembler For Puller Over Relationship Specialty Start Date End Date Shawanda Oliver MD PCP - General Internal Medicine 08/24/20 10/31/21 Noah Parks [address] [place] [address] PCP - General Internal Medicine 11/01/21 11/25/21 Carmina Varela MD [address] [place] [address] PCP - General Internal Medicine 11/26/21 Nancy Elliott, DO Internal Medicine 01/28/14 08/31/22 Db Martino MD [address] [place] [address]81 Specialist Cardiology 09/01/22 Dario Ling [address] [place] [address] Specialist Pulmonology 09/01/22 documented as of this encounter
--- OUTSIDE RECORDS SUMMARY | 2024-08-28 19:31 | XMS_ITS | Encounter Summary ---
Author Organization [facility] Address [address] [place] [address] Care Team Providers Care Life Insurance Sales Agent Name Role Phone Radha Mccray Primary [...] Team Description 12/10/2017 Hospital Medical Records [address] [place] [address] Smita Russell Np Social History Tobacco Use [...] on filedocumented in this encounter Care Teams Life Insurance Sales Agent Relationship Specialty Start Date End Date Radha Mccray PCP - General 01/28/14 06/25/20 Nancy Elliott DO PCP - General Internal Medicine 06/26/20 08/23/20 Shawanda Oliver MD PCP - General Internal Medicine 08/24/20 10/31/21 Noah Parks [address] [place] [address] PCP - General Internal Medicine 11/01/21 11/25/21 Carmina Varela MD [address] [place] [address]10 PCP - General Internal Medicine 11/26/21 Nancy Elliott, DO Internal Medicine 01/28/14 08/31/22 Db Martino MD [address] [place] [address] 12005 Specialist Cardiology 09/01/22 Dario Ling [address] [place] [address] 20294 Specialist Pulmonology 09/01/22 documented as of this encounter
--- OUTSIDE RECORDS SUMMARY | 2024-08-28 19:31 | XMS_ITS | Encounter Summary ---
Author Organization [facility] Address [address] [place] [address] Care Team Providers Care Tool Or Die Drawing Checker Name Role Phone Radha Mccray Primary Care Provider Unavailabl e [place]rak[place]lan Colasacco Nancy DO Unavailable Unavailable [place] Colasacco, Nancy DO Primary Care Pro vider Unavailable Shawanda Oliver MD Primary Care Provider Noah Gramajo Primary Care Provider [phone] Carmina Varela MD Primary Care Prov ider Db Martino MD Unavailable Unavailable Dario Ling Unavailable Unavailable Encounter Details Date Type Department Care Team Description 03/15/2019 Electric Shovel Operator Report Medical Records [address] [place] [address] Sandoval Patton MD Social History Tobacco Use [...] on filedocumented in this encounter Care Teams Tool Or Die Drawing Checker Relationship Specialty Start Date End Date Radha Mccray PCP - General 01/28/14 06/25/20 Nancy Elliott DO PCP - General Internal Medicine 06/26/20 08/23/20 Shawanda Oliver MD PCP - General Internal Medicine 08/24/20 10/31/21 Noah Parks [address] [place] [address]774 PCP - General Internal Medicine 11/01/21 11/25/21 Carmina Varela MD [address] [place] [address] PCP - General Internal Medicine 11/26/21 Nancy Elliott DO Internal Medicine 01/28/14 08/31/22 Db Martino MD [address] [place] [address] 47634 Specialist Cardiology 09/01/22 Dario Ling [address] [place] [address]03 Specialist Pulmonology 09/01/22 documented as of this encounter
--- OUTSIDE RECORDS SUMMARY | 2024-08-28 19:31 | XMS_ITS | Encounter Summary ---
Author Organization [facility] Address [address] [place] [address] Care Team Providers Care Veterinary Technician Name Role Phone Nancy Elliott DO Unavailable Unavailable Shawanda Oliver MD Primary Care Provider Noah Gramajo Primary Care Provider [phone] Carmina Varela MD Primary Care Prov ider Db Martino MD Unavailable Unavailable Dario Ling Unavailable Unavailable Encounter Details Date Type Department Care Team Description 10/15/2021 Auto Body Repairman Report Medical Records [address] [place] [address] Lacey Valle MD Social History Tobacco Use [...] In the last 10 days, have deborah chavarria been in contact with someone who was confirmed or suspected to have Coronavirus/COVID-19? No / Unsure 09/30/2021 8:14 AM EDT documented as of this encounter Plan of Treatment Not on file documented as of this encounter Visit Diagnoses Not on filedocumented in this encounter Care Teams Veterinary Technician Relationship Specialty Start Date End Date Shawanda Oliver MD PCP - General Internal Medicine 08/24/20 10/31/21 Noah Parks [address] [place] [address] PCP - General Internal Medicine 11/01/21 11/25/21 Carmina Varela MD [address] [place] [address] PCP - General Internal Medicine 11/26/21 Nancy Elliott, DO Internal Medicine 01/28/14 08/31/22 Db Martino MD [address] [place] [address] 27434 Specialist Cardiology 09/01/22 Dario Ling [address] [place] [address]17 Specialist Pulmonology 09/01/22 documented as of this encounter
--- OUTSIDE RECORDS SUMMARY | 2024-08-28 19:31 | XMS_ITS | Encounter Summary ---
Author Organization [facility] Address [address] [place] [address] Care Team Providers Care Mattress Filler Name Role Phone Nancy Elliott DO Unavailable Unavailable Shawanda Oliver MD Primary Care Provider Noah Gramajo Primary Care Provider [phone] Carmina Varela MD Primary Care Prov ider Db Martino MD Unavailable Unavailable Dario Ling Unavailable Unavailable Encounter Details Date Type Department Care Team Description 02/26/2021 Warehouse Sorter Report Medical Records [address] [place] [address] Mariel Arellano, RENÉ Social History Tobacco Use [...] on filedocumented in this encounter Care Teams Mattress Filler Relationship Specialty Start Date End Date Shawanda Oliver MD PCP - General Internal Medicine 08/24/20 10/31/21 Noah Parks [address] [place], [place] [phone] PCP - General Internal Medicine 11/01/21 11/25/21 Carmina Varela MD [address] [place] [address] 11982 PCP - General Internal Medicine 11/26/21 Nancy Elliott, DO Internal Medicine 01/28/14 08/31/22 Db Martino MD [address] [place] [address] 20004 Specialist Cardiology 09/01/22 Dario Ling [address] [place] [address] Specialist Pulmonology 09/01/22 documented as of this encounter
--- OUTSIDE RECORDS SUMMARY | 2024-08-28 19:31 | XMS_ITS | Encounter Summary ---
Author Organization [facility] Address [address] [place] [address] Care Team Providers Care Motor And Chassis Inspector Name Role Phone Nancy Elliott DO Unavailable Unavailable Nancy Elliott DO Primary Care Pro vider Unavailable Shawanda Oliver MD Primary Care Provider Noah Gramajo Primary Care Provider [phone] Carmina Varela MD Primary Care Prov ider Db Martino MD Unavailable Unavailable Dario Ling Unavailable Unavailable Reason for Visit * Reason Onset Date Comments hospital follow up 07/26/2020 Encounter Details Date Type Department Care Team Description 07/26/2020 Telephone Adult Medicine [facility] [address] [place] [address] Nancy Elliott DO hospital follow up Social History Tobacco Use Types Packs/Day Years [...] encounter Miscellaneous Notes * Telephone Encounter - Marielos Joshua - 07/26/2020 10:08 AM EDT Hospital follow up appointment needed Hospital patient was treated at: [facility] Was this only an ER visit or was the patient admitted to the hospital? Admitted to hospital Date of visit if ER visit only: N/A If patient was admitted what was the date of discharge? 07.22.2020 Reason/diagnosis for visit or stay: Have a hard time breathing When was the patient told to follow up? Was just old to follow up w/PCP Was visit or stay related to an injury? NO If yes, what was the date of injury (DOI)? N/A If yes, was the injury due to N/A documented in this encounter Plan of Treatment Not on file documented as of this encounter Visit Diagnoses Not on filedocumented in this encounter Care Teams Motor And Chassis Inspector Relationship Specialty Start Date End Date Nancy Elliott DO PCP - General Internal Medicine 06/26/20 08/23/20 Shawanda Oliver MD PCP - General Internal Medicine 08/24/20 10/31/21 Noah Parks [address] [place] [address]87 PCP - General Internal Medicine 11/01/21 11/25/21 Carmina Varela MD [address] [place] [address] PCP - General Internal Medicine 11/26/21 Nancy Elliott DO Internal Medicine 01/28/14 08/31/22 Db Martino MD [address] [place] [address]99 Specialist Cardiology 09/01/22 Dario Ling [address] [place] [address]678 Specialist Pulmonology 09/01/22 documented as of this encounter
--- OUTSIDE RECORDS SUMMARY | 2024-08-28 19:31 | XMS_ITS | Encounter Summary ---
Author Organization [facility] Address [address] [place] [address] Care Team Providers Care Electrical Accessories Ii Assembler Name Role Phone Shazia Gerrydexter Primary Care Provider Unavailabl e Nancy Elliott DO Unavailable Unavailable Nancy Elliott DO Primary Care Pro vider Unavailable Shawanda Oliver MD Primary Care Provider Noah Gramajo Primary Care Provider [phone] Carmina Varela MD Primary Care Prov ider Db Martino MD Unavailable Unavailable Dario Ling Unavailable Unavailable Reason for Visit * Reason Onset Date Comments REFERRAL 11/15/2018 Asthma/ COPD/ Di abetes Clinic Encounter Details Date Type Department Care Team Description 11/15/2018 Telephone Respiratory and Diabetes Medicaid/ACO Pharmacist [address] [place] [address] Nancy Elliott DO REFERRAL (Asthma/ COPD/ Diabetes [...] Please consider referring this patient to the [facility] Asthma/ COPD/ Diabetes Clinic located in [place] for further management of their diabetes. Thank you. documented in this encounter Plan of Treatment Not on file documented as of this encounter Visit Diagnoses Not on filedocumented in this encounter Care Teams Electrical Accessories Ii Assembler Relationship Specialty Start Date End Date Radha Mccray PCP - General 01/28/14 06/25/20 Nancy Elliott DO PCP - General Internal Medicine 06/26/20 08/23/20 Shawanda Oliver MD PCP - General Internal Medicine 08/24/20 10/31/21 Noah Parks [address] [place] [address] PCP - General Internal Medicine 11/01/21 11/25/21 Carmina Varela MD [address] [place] [address] PCP - General Internal Medicine 11/26/21 Nancy Elliott DO Internal Medicine 01/28/14 08/31/22 Db Martino MD [address] [place] [address] 00659 Specialist Cardiology 09/01/22 Dario Ling [address] [place] [address]83 Specialist Pulmonology 09/01/22 documented as of this encounter
--- OUTSIDE RECORDS SUMMARY | 2024-08-28 19:31 | XMS_ITS | Encounter Summary ---
Author Organization [facility] Address [address] [place] [address] Care Team Providers Care Inspection And Testing Supervisor Name Role Phone Nancy Elliott DO Unavailable Unavailable Shawanda Oliver MD Primary Care Provider Noah Gramajo Primary Care Provider Carmina Varela MD Primary Care Prov ider Db Martino MD Unavailable Unavailable Dario Ling Unavailable Unavailable Reason for Visit * Reason Onset Date Comments Faxed Refill 02/06/2021 Encounter Details Date Type Department Care Team Description 02/06/2021 Refill Adult Medicine [address] [address] Shawanda Oliver MD Faxed Refill Social History Tobacco Use Types Packs/Day Years [...] Telephone Encounter - Ebony Jarvis M.A. - 02/06/2021 2:04 PM EDT Lab Results Component Value Date HGBA1C 10.2 12/05/2020 MALBUR 21.6 09/14/2020 MALBCR 127.0 09/14/2020 CHOL 144 09/14/2020 LDL 64 09/14/2020 HDL 58 09/14/2020 TRIG 113 09/14/2020 GLU 167 12/05/2020 CREAT 1.20 12/05/2020 Pending appt with Malu PATEL 03/13/21 * Telephone Encounter - Rabia Owens - 02/06/2021 1:48 PM EDT Patient would like script to be: E-PRESCRIBED/FAXED TO PHARMACY WHEN WAS THE PATIENT'S LAST APPOINTMENT IN ADULT MEDICINE? 01/03/21 WHEN WAS THE LAST TIME THE PATIENT SAW THEIR PCP? same as above Does patient have an upcoming appointment? Yes 03/13/21 (THE MEDICATION REQUESTED IS ON THE MED [...] N/A Patients current insurance carrier is: Payor: 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, unspecified whether termite treater insulin use (HCC) documented in this encounter Care Teams Inspection And Testing Supervisor Relationship Specialty Start Date End Date Shawanda Oliver MD PCP - General Internal Medicine 08/24/20 10/31/21 Noah Parks [address] [place] [address] PCP - General Internal Medicine 11/01/21 11/25/21 Carmina Varela MD [address] [place] [address] PCP - General Internal Medicine 11/26/21 Nancy Elliott, DO Internal Medicine 01/28/14 08/31/22 Db Martino MD [address] [place] [address] Specialist Cardiology 09/01/22 Dario Ling [address] [place] [address] Specialist Pulmonology 09/01/22 documented as of this encounter
--- OUTSIDE RECORDS SUMMARY | 2024-08-28 19:31 | XMS_ITS | Encounter Summary ---
Author Organization [facility] Address [address] [place] [address] Care Team Providers Care Crop Farm Helper Name Role Phone Nancy Elliott DO Unavailable Unavailable Carmina Varela MD Primary Care Prov ider Db Martino MD Unavailable Unavailable Dario Ling Unavailable Unavailable Reason for Visit * Reason Comments E-prescribe Rx Request Encounter Details Date Type Department Care Team Description 07/18/2022 Refill Endocrinology - [address] [address] Rosa M Mcghee PA-C [address] [place] [address] E-prescribe Rx Request Social History Tobacco Use [...] encounter Miscellaneous Notes * Telephone Encounter - Jessica Moses - 07/18/2022 1:06 PM EDT Jessica 01/14/22 Lab Results Component Value Date HGBA1C 9.9 11/06/2021 MALBUR 83.1 11/06/2021 MALBCR 56.9 11/06/2021 CHOL 189 11/06/2021 LDL 99 11/06/2021 HDL 57 11/06/2021 TRIG 168 11/06/2021 GLU 104 01/14/2022 CREAT 1.31 12/27/2021 * Telephone Encounter - Suhas Sheffield - 07/18/2022 12:49 PM EDT Patient would like script to be: E-PRESCRIBED/FAXED TO PHARMACY WHEN WAS THE PATIENT'S LAST APPOINTMENT IN ADULT MEDICINE? 05/15/2022 WHEN WAS THE LAST TIME THE PATIENT SAW THEIR PCP? Same as above Does patient have an upcoming appointment? Yes 09/23/2022 (THE MEDICATION REQUESTED IS ON THE MED [...] Patients current insurance carrier is: Payor: [facility] [employer] MCR / Plan: O $0 [facility] [id number] / Product Type: HMO [id number] documented in this encounter Plan of Treatment Not on file documented as of this encounter Visit Diagnoses Diagnosis Diabetes mellitus type 2 with neurological manifestations (HCC) Type II or unspecified type diabetes mellitus with neurological manifestations, not stated as uncontrolled Diabetes mellitus due to underlying condition with diabetic nephropathy, with long-term current use of insulin (HCC) documented in this encounter Care Teams Crop Farm Helper Relationship Specialty Start Date End Date Carmina Varela MD [address] [place] [address] PCP - General Internal Medicine 11/26/21 Nancy Elliott, DO Internal Medicine 01/28/14 08/31/22 Db Martino MD [address] [place] [address] Specialist Cardiology 09/01/22 Dario Ling [address] [place] [address] Specialist Pulmonology 09/01/22 documented as of this encounter
--- OUTSIDE RECORDS SUMMARY | 2024-08-28 19:31 | XMS_ITS | Encounter Summary ---
Author Organization [facility] Address [address] [place] [address] Care Team Providers Care Shredder Tender Name Role Phone Nancy Elliott DO Unavailable Unavailable Shawanda Oliver MD Primary Care Provider Noah Gramajo Primary Care Provider [phone] Carmina Varela MD Primary Care Prov ider Db Martino MD Unavailable Unavailable Dario Ling Unavailable Unavailable Encounter Details Date Type Department Care Team Description 01/25/2021 Hospital Medical Records [address] [place] [address] Jaycob Reza Social History Tobacco Use Types [...] on filedocumented in this encounter Care Teams Shredder Tender Relationship Specialty Start Date End Date Shawanda Oliver MD PCP - General Internal Medicine 08/24/20 10/31/21 Noah Parks [address] [place] [address] PCP - General Internal Medicine 11/01/21 11/25/21 Carmina Varela MD [address] [place] [address] PCP - General Internal Medicine 11/26/21 Nancy Elliott, DO Internal Medicine 01/28/14 08/31/22 Db Martino MD [address] [place] [address] Specialist Cardiology 09/01/22 Dario Ling [address] [place] [address] Specialist Pulmonology 09/01/22 documented as of this encounter
--- OUTSIDE RECORDS SUMMARY | 2024-08-28 19:31 | XMS_ITS | Encounter Summary ---
Author Organization [facility] Address [address] [place] [address] Care Team Providers Care Morning Show Newscast Producer Name Role Phone JarenRadha puentes Primary Care Provider Unavailabl e Nancy Elliott DO Unavailable Unavailable Ariadne Bartono Nancy DO Primary Care Pro vider Unavailable Shawanda Oliver MD Primary Care Provider Noah Gramajo Primary Care Provider [phone] Carmina Varela MD Primary Care Prov ider Db Martino MD Unavailable Unavailable Dario Ling Unavailable Unavailable Encounter Details Date Type Department Care Team Description 02/04/2019 Orders Only Medical Records [address] [place] [address] Nancy Elliott, DO Social History Tobacco Use [...] on filedocumented in this encounter Care Teams Morning Show Newscast Producer Relationship Specialty Start Date End Date Radha Mccray PCP - General 01/28/14 06/25/20 Nancy Elliott DO PCP - General Internal Medicine 06/26/20 08/23/20 Shawanda Oliver MD PCP - General Internal Medicine 08/24/20 10/31/21 Noah Parks [address] [place] [address] PCP - General Internal Medicine 11/01/21 11/25/21 Carmina Varela MD [address] [place] [address] PCP - General Internal Medicine 11/26/21 Nancy Elliott DO Internal Medicine 01/28/14 08/31/22 Db Martino MD [address] [place] [address] Specialist Cardiology 09/01/22 Dario Ling [address] [place] [address] Specialist Pulmonology 09/01/22 documented as of this encounter
--- OUTSIDE RECORDS SUMMARY | 2024-08-28 19:31 | XMS_ITS | Encounter Summary ---
Author Organization [facility] Address [address] [place] [address] Care Team Providers Care Structural Engineering Drafting Officer Name Role Phone Radha Mccray Primary Care Provider Unavailabl e Nancy Elliott DO Unavailable Unavailable Nancy Elliott DO Primary Care Pro vider Unavailable Shawanda Oliver MD Primary Care Provider Noah Gramajo Primary Care Provider [phone] Carmina Varela MD Primary Care Prov ider Db Martino MD Unavailable Unavailable Dario Ling Unavailable Unavailable Reason for Referral * Non JEFFERY (Routine) - Authorized/Booked Specialty Diagnoses / Procedures Referred By Mitra pelaez Referred To Contact Endocrinology Procedures REFERRAL TO ENDOCRINOLOGY Nancy Elliott DO [address] [place] [address] Endo/[place] [address] [place] [address] Referral ID Status Reason Start Date Expiration Date V isits Requested Visits Authorized [id number] Authorized/B ooked 02/15/2019 02/15/2020 1 1 Encounter Details Date Type Department Care Team Description 02/15/2019 Orders Only Adult Medicine [address] [address] Nancy Elliott DO Social History Tobacco Use [...] on filedocumented in this encounter Care Teams Structural Engineering Drafting Officer Relationship Specialty Start Date End Date Radha Mccray PCP - General 01/28/14 06/25/20 Nancy Elliott DO PCP - General Internal Medicine 06/26/20 08/23/20 Shawanda Oliver MD PCP - General Internal Medicine 08/24/20 10/31/21 Noah Parks [address] [place] [address] PCP - General Internal Medicine 11/01/21 11/25/21 Carmina Varela MD [address] [place] [address] PCP - General Internal Medicine 11/26/21 Nancy Elliott DO Internal Medicine 01/28/14 08/31/22 Db Martino MD [address] [place] [address] Specialist Cardiology 09/01/22 Dario Ling [address] [place] [address] Specialist Pulmonology 09/01/22 documented as of this encounter
--- OUTSIDE RECORDS SUMMARY | 2024-08-28 19:31 | XMS_ITS | Encounter Summary ---
Author Organization [facility] Address [address] [place] [address] Care Team Providers Care Bead Supervisor Name Role Phone Radha Mccray Primary Care Provider Unavailabl e [place] Colasacco, Nancy DO Unavailable Unavailable [place] Colasacco, Nancy DO Primary Care Pro vider Unavailable Shawanda Oliver MD Primary Care Provider Noah Gramajo Primary Care Provider [phone] Carmina Varela MD Primary Care Prov ider Db Martino MD Unavailable Unavailable Dario Ling Unavailable Unavailable Encounter Details Date Type Department Care Team Description 12/15/2017 Hospital Medical Records [address] [place] [address] Sherri Burrell Social History Tobacco Use Types [...] on filedocumented in this encounter Care Teams Bead Supervisor Relationship Specialty Start Date End Date Radha Mccray PCP - General 01/28/14 06/25/20 Nancy Elliott DO PCP - General Internal Medicine 06/26/20 08/23/20 Shawanda Oliver MD PCP - General Internal Medicine 08/24/20 10/31/21 Noah Pakrs [address] [place] [address] PCP - General Internal Medicine 11/01/21 11/25/21 Carmina Varela MD [address] [place] [address] PCP - General Internal Medicine 11/26/21 Nancy Elliott, DO Internal Medicine 01/28/14 08/31/22 Db Martino MD [address] [place] [address] Specialist Cardiology 09/01/22 Dario Ling [address] [place] [address] Specialist Pulmonology 09/01/22 documented as of this encounter
--- OUTSIDE RECORDS SUMMARY | 2024-08-28 19:31 | XMS_ITS | Encounter Summary ---
Author Organization [facility] Address [address] [place] [address] Care Team Providers Care Communication Consultant Name Role Phone Nancy Elliott DO Unavailable Unavailable Shawanda Oliver MD Primary Care Provider Noah Gramajo Primary Care Provider [phone] Carmina Varela MD Primary Care Prov ider Db Martino MD Unavailable Unavailable Dario Ling Unavailable Unavailable Encounter Details Date Type Department Care Team Description 09/11/2021 Vice President Of Consulting Services Report Medical Records [address] [place] [address] Lacey Valle MD Social History Tobacco Use [...] on filedocumented in this encounter Care Teams Communication Consultant Relationship Specialty Start Date End Date Shawanda Oliver MD PCP - General Internal Medicine 08/24/20 10/31/21 Noah Parks [address] [place], [place] [phone] PCP - General Internal Medicine 11/01/21 11/25/21 Carmina Varela MD [address] [place] [address] PCP - General Internal Medicine 11/26/21 Nancy Elliott, DO Internal Medicine 01/28/14 08/31/22 Db Martino MD [address] [place] [address] Specialist Cardiology 09/01/22 Dario Ling [address] [place] [address] Specialist Pulmonology 09/01/22 documented as of this encounter
--- OUTSIDE RECORDS SUMMARY | 2024-08-28 19:31 | XMS_ITS | Encounter Summary ---
Author Organization [facility] Address [address] [place] [address] Care Team Providers Care Sccm Administrator Name Role Phone Nancy Elliott DO Unavailable Unavailable Shawanda Oliver MD Primary Care Provider Noah Gramajo Primary Care Provider Carmina Varela MD Primary Care Prov ider Db Martino MD Unavailable Unavailable Dario Ling Unavailable Unavailable Encounter Details Date Type Department Care Team Description 10/01/2021 Business Doc Medical Records [address] [place] [address] Abstract, Provider Social History Tobacco Use Types [...] on filedocumented in this encounter Care Teams Sccm Administrator Relationship Specialty Start Date End Date Shawanda Oliver MD PCP - General Internal Medicine 08/24/20 10/31/21 Noah Parks [address] [place] [address] PCP - General Internal Medicine 11/01/21 11/25/21 Carmina Varela MD [address] [place] [address] PCP - General Internal Medicine 11/26/21 Nancy Elliott, DO Internal Medicine 01/28/14 08/31/22 Db Martino MD [address] [place] [address] Specialist Cardiology 09/01/22 Dario Ling [address] [place] [address] Specialist Pulmonology 09/01/22 documented as of this encounter
--- OUTSIDE RECORDS SUMMARY | 2024-08-28 19:31 | XMS_ITS | Encounter Summary ---
Author Organization [facility] Address [address] [place] [address] Care Team Providers Care Mold Carrier Name Role Phone Radha Mccray Primary Care Provider Unavailabl e [place] Colasacco, Nancy DO Unavailable Unavailable [place] Colasacco, Nancy DO Primary Care Pro vider Unavailable Shawanda Oliver MD Primary Care Provider Noah Gramajo Primary Care Provider [phone] Carmina Varela MD Primary Care Prov ider Db Martino MD Unavailable Unavailable Dario Ling Unavailable Unavailable Encounter Details Date Type Department Care Team Description 02/10/2019 Numerical Control Drill Press Operator Report Medical Records [address] [place] [address] Db Martino MD Social History Tobacco Use [...] on filedocumented in this encounter Care Teams Mold Carrier Relationship Specialty Start Date End Date Radha Mccray PCP - General 01/28/14 06/25/20 Nancy Elliott DO PCP - General Internal Medicine 06/26/20 08/23/20 Shawanda Oliver MD PCP - General Internal Medicine 08/24/20 10/31/21 Noah Parsk [address] [place] [address] PCP - General Internal Medicine 11/01/21 11/25/21 Carmina Varela MD [address] [place] [address] PCP - General Internal Medicine 11/26/21 Nancy Elliott, Internal Medicine 01/28/14 08/31/22 Db Martino MD [address] [place] [address]187 Specialist Cardiology 09/01/22 Dario Ling [address] [place] [address] Specialist Pulmonology 09/01/22 documented as of this encounter
--- OUTSIDE RECORDS SUMMARY | 2024-08-28 19:31 | XMS_ITS | Encounter Summary ---
Author Organization [facility] Address [address] [place] [address] Care Team Providers Care Carpenter'S Helper Name Role Phone Carmina Varela MD Primary Care Prov ider Db Martino MD Unavailable Unavailable Dario Ling Unavailable Unavailable Encounter Details Date Type Department Care Team Description 02/17/2023 Transfer Records Medical Records [address] [place] [address] Abstract, Provider Social History Tobacco Use Types [...] on filedocumented in this encounter Care Teams Carpenter'S Helper Relationship Specialty Start Date End Date Carmina Varela MD [address] [place] [address] PCP - General Internal Medicine 11/26/21 Db Martino MD [address] [place] [address] Specialist Cardiology 09/01/22 Dario Ling [address] [place] [address] Specialist Pulmonology 09/01/22 documented as of this encounter
--- OUTSIDE RECORDS SUMMARY | 2024-08-28 19:31 | XMS_ITS | Encounter Summary ---
Author Organization [facility] Address [address] [place] [address] Care Team Providers Care Scale Adjuster Name Role Phone Radha Mccray Primary Care Provider Unavailabl e Nancy Elliott DO Unavailable Unavailable Nancy Elliott DO Primary Care Pro vider Unavailable Shawanda Oliver MD Primary Care Provider Noah Gramajo Primary Care Provider [phone] Carmina Varela MD Primary Care Prov ider Db Martino MD Unavailable Unavailable Dario Ling Unavailable Unavailable Reason for Referral * EXTERNAL (Priority) - Authorized/Booked Specialty Diagnoses / Procedures Referred By Contact Referred To Contact INTERVENTIONAL RADIOLOGY Procedures REFERRAL TO INTERVENTIONAL RADIOLOGY Nancy Elliott DO [address] [place], [place] [address] [place] [address] Referral ID Status Reason Start Date Expiration Date V isits Requested Visits Authorized SEE REVIEW 01/19/2019 Authorized/ Booked 01/19/2019 1 1 Encounter Details Date Type Department Care Team Description 01/19/2019 Orders Only Adult Medicine [address] [address] Nancy Elliott DO Social History Tobacco Use [...] on filedocumented in this encounter Care Teams Scale Adjuster Relationship Specialty Start Date End Date Radha Mccray PCP - General 01/28/14 06/25/20 Nancy Elliott DO PCP - General Internal Medicine 06/26/20 08/23/20 Shawanda Oliver MD PCP - General Internal Medicine 08/24/20 10/31/21 Noah Parks [address] [place] [address] PCP - General Internal Medicine 11/01/21 11/25/21 Carmina Varela MD [address] [place] [address] PCP - General Internal Medicine 11/26/21 Nancy Elliott DO Internal Medicine 01/28/14 08/31/22 Db Martino MD [address] [place] [address] Specialist Cardiology 09/01/22 Dairo Ling [address] [place] [address] Specialist Pulmonology 09/01/22 documented as of this encounter
--- NOTE | 2024-08-28 20:15 | PC.NURSE ---
KATHY Scooter notified of critical trop.
[2024-08-28 20:29] VITALS: BP 149/71; PULSE 91; RESP 16; TEMP 37.1; O2SAT 98
[2024-08-28 21:07] LABS: Troponin-I High Sensitivity 630.2 ng/L (<3.5-17.0)
--- NOTE | 2024-08-28 21:48 | ED.GENADULT ---
HPI - General Adult General Chief complaint: Dyspnea Stated complaint: Abdominal radiating to back Time Seen by Provider: 08/28/24 21:21 Source: patient Mode of arrival: ambulatory Limitations: no limitations History of Present Illness ED Provider: Dr. Tamra Marley HPI narrative: Patient comes to the emergency room complaining of right-sided chest pain. Patient states that whenever she takes deep breath, the right side of her chest hurts. Patient states that she has been coughing intermittently with phlegm. Patient denies actual chest pain, reports headache 3 days ago. Family reports decreased p.o. intake for the last few days. Patient admits that she is still smoking. Related Data Home Medications ?Medication ?Instructions ?Recorded ?Confirmed atorvastatin 80 mg tablet 80 mg PO BEDTIME 02/27/20 06/09/24 insulin aspart U-100 100 unit/mL 1 sliding scale dose subcut TIDAC 06/26/20 06/09/24 (3 mL) subcutaneous pen citalopram 20 mg tablet 20 mg PO DAILY 07/21/20 06/09/24 diphenhydramine HCl 50 mg/30 mL 50 mg PO BEDTIME PRN Sleep 08/15/23 06/09/24 oral liquid (ZzzQuil) insulin glargine 100 unit/mL (3 28 unit subcut BEDTIME 02/04/24 06/09/24 mL) subcutaneous pen (Lantus Solostar U-100 Insulin) empagliflozin 25 mg tablet 25 mg PO DAILY 02/09/24 06/09/24 (Jardiance) sacubitril 97 mg-valsartan 103 mg 1 tab PO BEDTIME 02/09/24 06/09/24 tablet (Entresto) ipratropium 20 mcg-albuterol 100 1 puff inhalation QID PRN wheezing 03/29/24 06/09/24 mcg/actuation mist for inhalation (Combivent Respimat) Previous Rx's ?Medication ?Instructions ?Recorded spironolactone 25 mg tablet 25 mg PO DAILY 90 days #90 tabs 05/06/24 (Aldactone) rivaroxaban 20 mg tablet (Xarelto) 20 mg PO QPM #90 tabs 05/16/24 furosemide 40 mg tablet 40 mg PO .COMPLEX 90 days #300 tabs 05/24/24 carvedilol 25 mg tablet 25 mg PO BID #180 tabs 06/14/24 Allergies Allergy/AdvReac Type Severity Reaction Status Date / Time No Known Allergies Allergy Verified 08/28/24 18:13 Review of Systems Review of Systems: Constitutional : No Weight loss, No Fever, No Chills, No Night Sweats, No Fatigue, No Malaise ENT/Mouth : No Hearing loss, No Ear Pain, No Nasal Congestion, No Sinus Pain, No Hoarseness, No sore throat, No Rhinorrhea, No Swallowing Difficulty Eyes: No Eye Pain, No Swelling, No Redness, No Foreign Body, No Discharge, No Vision Changes Cardiovascular : Complaining of right-sided chest pain with deep inhalation, complaining of shortness of breath for about 3 days, No SOB, No Dyspnea on Exertion, No Orthopnea, No Edema, No Palpitations Respiratory : Complaining of mild cough, shortness of breath with exertion Gastrointestinal : No Nausea, No Vomiting, No Diarrhea, No Constipation, No abdominal Pain, No Hematochezia, No Melena Genitourinary : no irregular bleeding, No Dysuria, No Urinary Frequency, No Hematuria, No Urinary Incontinence, No Urgency, No Flank Pain, No Urinary Flow Changes, No Hesitancy Musculoskeletal : No joint pain, No Myalgias, No Joint Swelling Skin : No Skin Lesions, No rash Neuro : No Weakness, No Numbness, No Paresthesias, No Loss of Consciousness, No Dizziness, complaining of Headache Psych : No Anxiety/Panic, No Depression, No SI/HI/AH/VH, No Social Issues, Heme/Lymph: No Bruising, No Bleeding,No Lymphadenopathy Endocrine : No Polyuria, No Polydipsia, No Temperature Intolerance [facility] Past Medical History Medical History Biventricular ICD (implantable cardioverter-defibrillator) in place CHF (congestive heart failure) Sleep apnea Presence of CardioMEMS HF system Hx of myocardial infarction Anxiety and depression Osteoarthritis Fatty liver Restrictive lung disease TAQUERIA treated with BiPAP Morbid obesity CAD (coronary artery disease) Non-rheumatic aortic stenosis Atherosclerotic cardiovascular disease Acute on chronic systolic and diastolic heart failure, NYHA class 3 Leukocytosis Dyspnea Transaminitis Hypoxia Congestive heart failure TAQUERIA (obstructive sleep apnea) NSVT (nonsustained ventricular tachycardia) Cardiomyopathy Chronic systolic heart failure Diabetes mellitus HLD (hyperlipidemia) HTN (hypertension) Surgical History History of incision and drainage Status post coronary artery bypass graft Stented coronary artery Hx of CABG History of cardiac cath Hx of cardiac cath Hx of cardiac cath Hx of appendectomy History of cholecystectomy Family History Family History Father No problems noted. Mother No problems noted. Social History Social History Household Members: Family Household Members Other:: son and daughter in law Housing: Apartment Are you a primary child care centre director to a significant other at home: No Do you presently have visiting nurse or other home services: No Alcohol intake: never Comment: chronic back pain Patient Tobacco Use Status: Current everyday Tobacco user Tobacco use type: Cigarette Cigarette Packs Per Day: 0.25 Cigarettes Per Day: 5 Years Smoked: 30 Smoked in Last 30 Days: Yes e-Cigarette/Vaping Use: Never Used Second Hand Smoke Exposure: Yes Use of substances other than those prescribed or required for medical reasons: No Advance Directives: Yes Advance Directives on File: Yes Advance Directives Date on File: 11/07/22 service: No Current occupational status: unemployed and disabled Current occupation: rt hand Physical Exam ED Vital Signs: Vital Signs - 24 hr 08/28/24 18:12 08/28/24 20:29 08/28/24 22:49 Temperature 98.3 F 98.7 F Pulse Rate 97 91 Respiratory Rate 18 16 24 H Blood Pressure 158/81 H 149/71 H Pulse Oximetry 98 98 Oxygen Delivery Method Room Air Room Air BMI result Body Mass Index 40.3 Const Other: Appearance: Alert. Oriented X3. No acute distress. Eyes: Pupils equal, round and reactive to light. ENT: Pharynx normal. Neck: Normal inspection. Neck supple. No lymph nodes noted. No crepitus CVS: Normal heart rate and rhythm. Pulses normal. Normal S1 and S2 Respiratory: No respiratory distress. Decreased breath sounds in bilateral bases Abdomen: Soft and nontender. No rigidity. No distention. Skin: Skin warm and dry. Normal skin color. Normal skin turgor. Extremities: +2 nonpitting edema bilaterally No Lacerations. No Rash Neuro: Oriented X 3. No motor deficit. No sensory deficit. Moving all extremities. No slurred speech. CN 2 through 12 grossly intact Psych: calm, cooperative, normal affect Course Course Course Narrative: Patient has an extensive cardiac and pulmonary medical history. Empirically, patient is being treated with IV fluids, azithromycin and ceftriaxone. Patient's vitals are stable, blood pressure 149/71, no fever Sepsis is not suspected Medications Administered Generic Name Dose Route Start Last Admin Trade Name Freq PRN Reason Stop Dose Admin Azithromycin 500 mg/ Sodium 250 mls @ 125 mls/hr 08/28/24 21:42 08/28/24 22:41 Chloride IV 08/28/24 23:41 125 mls/hr ONCE ONE Administration Sodium Chloride 500 mls @ 250 mls/hr 08/28/24 21:42 08/28/24 22:15 Ns IVCONT 08/28/24 23:41 250 mls/hr .Q2H ONE Administration Discontinued Medications Generic Name Dose Route Start Last Admin Trade Name Freq PRN Reason Stop Dose Admin Ceftriaxone Sodium 1 gm 08/28/24 21:42 08/28/24 22:41 Ceftriaxone Sodium 1 Gm Vial IVPUSH 08/28/24 21:43 1 gm ONCE ONE Administration Morphine Sulfate 2 mg 08/28/24 22:20 08/28/24 22:49 Morphine Sulfate 2 Mg/Ml Cartridge IVPUSH 08/28/24 22:21 2 mg ONCE ONE Administration Protocol Medical Decision Making Medical Decision Making [facility] Narrative: My interpretation of labs: Patient's white blood cell count 11.9, hemoglobin 16.5, hematocrit 50.3, platelets 105. Chemistry does not show any significant abnormal ED, glucose slightly bumped at 02:19, lactic acid 1.5, patient's troponin is chronically elevated, troponin 1675, 2nd troponin 630, at baseline for the patient. The patient reports no chest pain. Serology negative for influenza COVID and RSV Patient is receiving a small dose of IV fluids, patient seems to be dehydrated, patient admits to decreased p.o. intake for the last 3 days. IV fluids being given a 250 mL/hour, patient has history of CHF with an ejection fraction of 30-35%. Chest x-ray shows pulmonary opacities, edema versus consolidation CT scan shows pulmonary edema, ground-glass opacities, possible pneumonia. Patient has already empirically being treated with IV fluids and antibiotics. Sepsis is not suspected. When patient was sitting in her room, without any exertion, oxygen dropped to 86%, now on 2 L of oxygen. BNP pending Patient grudgingly accepts to be admitted Patient states that she is starting to feel wheezy. Patient was given Solu-Medrol and a nebulization treatment. I discussed the patient with Dr. Tucker for admission Differential Diagnosis Differential Diagnoses: The differential diagnosis associated with the presentation includes (As above) Admission/Observation Consideration of admission/observation: Escalation of care including admission/observation considered Consult Healthcare Provider Management of the patient was discussed with: Hospitalist Lab Data [facility] Lab Attestation statement: I reviewed the patient's lab results. 08/28/24 18:31 08/28/24 18:31 Labs: Lab Results 08/28/24 08/28/24 08/28/24 Range/Units 18:31 20:31 22:13 WBC 11.9 H (4.8-10.8) X10*3/uL RBC 5.54 H (4.20-5.50) X10*6/uL Hgb 16.5 H D (12.0-16.0) g/dl Hct 50.3 H D (37.0-47.0) % MCV 90.8 (80.0-98.0) fL MCH 29.8 (27.0-33.0) pg MCHC 32.8 (31.0-35.0) g/dl RDW 16.0 (11.0-16.0) % Plt Count 105 L D (160-400) X10*3/uL MPV 11.7 (9.4-12.3) fL Immature Gran % (Auto) 0.3 (0.0-0.4) % Neut % (Auto) 61.6 (45-73) % Lymph % (Auto) 29.9 (20-40) % [place] % (Auto) 5.9 (2-11) % Eos % (Auto) 1.7 (0-4) % Baso % (Auto) 0.6 (0-2) % Lymph # (Auto) 3.6 (1.2-4.9) X10*3/uL [place] # (Auto) 0.7 (0.1-1.2) X10*3/uL Eos # (Auto) 0.2 (0.0-0.4) X10*3/uL Baso # (Auto) 0.1 (0.0-0.2) X10*3/uL Abs Immat Gran (auto) 0.04 H (0.00-0.03) X10*3/uL Absolute Neuts (auto) 7.4 (2.0-8.3) x10*3/uL Absolute Nucleated RBC 0.000 (0.0-0.012) X10*3/uL Nucleated RBC % (auto) 0.0 (0.0-0.2) /100WBC Sodium 137 (135-145) mmol/L Potassium 4.5 D (3.3-5.1) mmol/L Chloride 108 (96-108) mmol/L Carbon Dioxide 18 L (22-29) mmol/L Anion Gap 16 (12-20) BUN 20 H (9-16) mg/dL Creatinine 1.03 (0.5-1.4) mg/dL Estim Creat Clear Calc 49.8 Estimated GFR 53 Random Glucose 219 H (60-115) mg/dL Lactic Acid 1.5 (0.5-2.0) mmol/L Calcium 9.1 D (8.4-10.2) mg/dL Total Bilirubin 1.0 (0.0-1.0) mg/dL AST 23 (5-31) U/L ALT 13 (0-31) U/L Alkaline Phosphatase 102 (39-117) U/L Troponin I High Sens 675.7 H* 630.2 H* (<3.5-17.0) ng/L Total Protein 7.6 (6.5-8.0) g/dL Albumin 4.2 (3.5-5.0) g/dL Influenza Type A (PCR) NEGATIVE (Negative) Influenza Type B (PCR) NEGATIVE (Negative) RSV RNA Qual (PCR) NEGATIVE (Negative) SARS-CoV-2 RNA (RT-PCR) NEGATIVE (Negative) Independent Interpretation I performed an independent interpretation of an: Plain X-Ray and CT Scan Radiology Impression Discussion of test interpretation with radiology: I have reviewed the radiologist's reading. Radiologist Impression: Mild intra and interlobular septal thickening suggesting pulmonary edema. Focal geographic area of ground-glass opacity in the peripheral right upper lobe which may be an area of pulmonary edema, pneumonia, atypical infection, pulmonary infarct, or interstitial lung disease. 6 mm pulmonary nodule in the right upper lobe. 6-8 mm nodules need 3-[address] follow-up followed by an optional 18-[address] follow-up regardless of patient risk. Pulmonary opacities are nonspecific and may reflect recurrent pulmonary edema given interstitial predominance. Pneumonitis also considered. Small right pleural effusion present with prominence of the horizontal fissure. No pneumothorax. Cardiomegaly, sternotomy wires, cardiac device, leads are redemonstrated. Degenerative changes include imaged shoulders, AC joints, and imaged spine. Critical Care Time Critical Care Time Critical Care Time: Yes Total Critical Care Time: 60 Attestation: I have personally provided critical care time. Time includes review of lab data, radiology results, discussion with consultants, and monitoring for potential decompensation. Intervention performed as documented. Discharge Plan Discharge Clinical Impression: Pneumonia, CHF (congestive heart failure), Chronic lung disease Patient Disposition: Admitted As Inpatient Print Language: Kazakh
[2024-08-28] MEDS: 0.9 % Sodium Chloride 500 ML 250 ML IVCONT (22:15)
[2024-08-28] MEDS: cefTRIAXone sodium 1 GM VIAL IVPUSH (22:41)
[2024-08-28] MEDS: Azithromycin 500 MG in 0.9 % Sodium Chloride 250 ML 125 MG IV (22:41)
--- NOTE | 2024-08-28 22:42 | PC.NURSE ---
cultures, abx delayed by difficulty obtaining venous access
[2024-08-28 22:46] LABS: Lactic Acid 1.5 mmol/L (0.5-2.0)
[2024-08-28 22:49] VITALS: RESP 24
[2024-08-28] MEDS: Morphine Sulfate 2 MG/ML CARTRIDGE IVPUSH (22:49)
[2024-08-28 23:32] VITALS: BP 123/74; PULSE 110; RESP 24; O2SAT 94
--- NOTE | 2024-08-28 23:32 | PM.IMHP ---
History of Present Illness Date of Service: 08/28/24 Chief Complaint: Dyspnea This is a 69-year-old female with pertinent history of congestive heart failure with reduced ejection fraction, status post biventricular ICD and CardioMEMS in place, CAD status post CABG, history of PE on Xarelto, tobacco use disorder, COPD not on home oxygen, TAQUERIA on CPAP, insulin-dependent type 2 diabetes mellitus, mood disorder who presents to the emergency department for evaluation of dyspnea. Patient states her symptoms started 3 days prior to presentation. She has been having dyspnea which is worse with exertion and worse when lying down. She tried her home inhaler but no relief. Continues to smoke cigarettes. Also noticed lower extremity leg swelling. Patient states she has been having right-sided rib pain that is making it difficult to breathe. Minimal nonproductive cough. Has associated wheezing. No fever, chills, chest pain, palpitations, abdominal pain, changes in urinary or bowel habits. In the emergency department, imaging with pulmonary edema. [facility]LY [facility] Medical History Biventricular ICD (implantable cardioverter-defibrillator) in place CHF (congestive heart failure) Sleep apnea Presence of CardioMEMS HF system Hx of myocardial infarction Anxiety and depression Osteoarthritis Fatty liver Restrictive lung disease TAQUERIA treated with BiPAP Morbid obesity CAD (coronary artery disease) Non-rheumatic aortic stenosis Atherosclerotic cardiovascular disease Acute on chronic systolic and diastolic heart failure, NYHA class 3 Leukocytosis Dyspnea Transaminitis Hypoxia Congestive heart failure TAQUERIA (obstructive sleep apnea) NSVT (nonsustained ventricular tachycardia) Cardiomyopathy Chronic systolic heart failure Diabetes mellitus HLD (hyperlipidemia) HTN (hypertension) Family History Father No problems noted. Mother No problems noted. Surgical History History of incision and drainage Status post coronary artery bypass graft Stented coronary artery Hx of CABG History of cardiac cath Hx of cardiac cath Hx of cardiac cath Hx of appendectomy History of cholecystectomy Social History Household Members: Family Household Members Other:: son and daughter in law Housing: Apartment Are you a primary respiratory care technician to a significant other at home: No Do you presently have visiting nurse or other home services: No Alcohol intake: never Comment: chronic back pain Patient Tobacco Use Status: Current everyday Tobacco user Tobacco use type: Cigarette Cigarette Packs Per Day: 0.25 Cigarettes Per Day: 5 Years Smoked: 30 Smoked in Last 30 Days: Yes e-Cigarette/Vaping Use: Never Used Second Hand Smoke Exposure: Yes Use of substances other than those prescribed or required for medical reasons: No Advance Directives: Yes Advance Directives on File: Yes Advance Directives Date on File: 11/07/22 service: No Current occupational status: unemployed and disabled Current occupation: rt hand Meds Allergies Allergy/AdvReac Type Severity Reaction Status Date / Time No Known Allergies Allergy Verified 08/28/24 18:13 Active Medications: Current Medications Azithromycin 500 mg/ Sodium (Chloride) 250 mls @ 125 mls/hr IV ONCE ONE Stop: 08/28/24 23:41 Last Admin: 08/28/24 22:41 Dose: 125 mls/hr Sodium Chloride (Ns) 500 mls @ 250 mls/hr IVCONT .Q2H ONE Stop: 08/28/24 23:41 Last Admin: 08/28/24 22:15 Dose: 250 mls/hr Home Medications ?Medication ?Instructions ?Recorded ?Confirmed ?Last Taken ?Type atorvastatin 80 mg tablet 80 mg PO BEDTIME 02/27/20 06/09/24 03/28/24 History insulin aspart U-100 100 unit/mL 1 sliding scale dose subcut TIDAC 06/26/20 06/09/24 03/29/24 History (3 mL) subcutaneous pen citalopram 20 mg tablet 20 mg PO DAILY 07/21/20 06/09/24 05/05/24 History diphenhydramine HCl 50 mg/30 mL 50 mg PO BEDTIME PRN Sleep 08/15/23 06/09/24 Unknown History oral liquid (ZzzQuil) insulin glargine 100 unit/mL (3 28 unit subcut BEDTIME 02/04/24 06/09/24 03/28/24 History mL) subcutaneous pen (Lantus Solostar U-100 Insulin) empagliflozin 25 mg tablet 25 mg PO DAILY 02/09/24 06/09/24 05/05/24 History (Jardiance) sacubitril 97 mg-valsartan 103 mg 1 tab PO BEDTIME 02/09/24 06/09/24 03/29/24 History tablet (Entresto) ipratropium 20 mcg-albuterol 100 1 puff inhalation QID PRN wheezing 03/29/24 06/09/24 Unknown History mcg/actuation mist for inhalation (Combivent Respimat) Physical Exam Vital Signs and Narrative: Vital Signs: Last Vital Signs Temp 98.7 F 08/28/24 20:29 Pulse 91 08/28/24 20:29 Resp 24 H 08/28/24 22:49 BP 149/71 H 08/28/24 20:29 Pulse Ox 98 08/28/24 20:29 O2 Del Method Room Air 08/28/24 20:29 BMI result Body Mass Index 40.3 Middle-aged female lying in bed in mild distress on supplemental oxygen Neck supple Tachycardia with regular rhythm, S1-S2 heard Bilateral crackles and wheezing present with tachypnea Abdomen soft nontender, no guarding, no rigidity Patient is awake, alert and oriented to self, place, time and person ; no focal motor deficit Psych: Normal mood Bilateral pedal edema present Results Labs 08/28/24 18:31 08/28/24 18:31 Labs: Laboratory Results - last 24 hr 08/28/24 08/28/24 18:31 22:13 MCV 90.8 MCH 29.8 MCHC 32.8 RDW 16.0 Plt Count 105 L D MPV 11.7 Immature Gran % (Auto) 0.3 Neut % (Auto) 61.6 Lymph % (Auto) 29.9 [place] % (Auto) 5.9 Eos % (Auto) 1.7 Baso % (Auto) 0.6 Lymph # (Auto) 3.6 [place] # (Auto) 0.7 Eos # (Auto) 0.2 Baso # (Auto) 0.1 Abs Immat Gran (auto) 0.04 H Absolute Neuts (auto) 7.4 Absolute Nucleated RBC 0.000 Nucleated RBC % (auto) 0.0 Anion Gap 16 Estim Creat Clear Calc 49.8 Estimated GFR 53 Random Glucose 219 H Lactic Acid 1.5 Calcium 9.1 D Total Bilirubin 1.0 AST 23 ALT 13 Alkaline Phosphatase 102 Total Protein 7.6 Albumin 4.2 Influenza Type A (PCR) NEGATIVE Influenza Type B (PCR) NEGATIVE RSV RNA Qual (PCR) NEGATIVE SARS-CoV-2 RNA (RT-PCR) NEGATIVE Assessment and Plan (1) Hypoxia: Status: Acute (2) Acute exacerbation of CHF (congestive heart failure): Status: Acute Plan This is a 69-year-old female with pertinent history of congestive heart failure with reduced ejection fraction, status post biventricular ICD and CardioMEMS in place, CAD status post CABG, history of PE on Xarelto, tobacco use disorder, COPD not on home oxygen, TAQUERIA on CPAP, insulin-dependent type 2 diabetes mellitus, mood disorder who presents to the emergency department for evaluation of dyspnea. #. Acute hypoxemic respiratory failure due to acute decompensation of congestive heart failure with reduced ejection fraction: Will admit patient with IV diuresis. Strict I's and O's. Low-salt diet. Continue Entresto, spironolactone, Jardiance and beta-aly #. Acute exacerbation of COPD in the setting of above: Scheduled and p.r.n. DuoNebs. Initiating systemic steroids. Continue home inhaler. #. Coronary artery disease: Continue high-intensity statin. Patient not on antiplatelet agent #. Insulin-dependent diabetes mellitus with hyperglycemia: Initiating basal plus insulin regimen #. History of PE: On Xarelto #. Mood disorder: Continue home citalopram #. TAQUERIA: CPAP at bedtime #. Tobacco use disorder: Refused nicotine patch in the hospital Med rec pending DVT prophylaxis: Jamie Full code Admit as inpatient and will require two night minimum hospital stay for supplemental oxygen, IV diuresis (as above), which is not possible in a lesser acute setting. Quality Stroke Does the patient have a stroke diagnosis?: No VTE Prior VTE?: No VTE Risk Level:: Medical - moderate - high VTE Device Contraindication: Treatment Not Indicated VTE Drug Contraindication: N/A - Med Ordered
[2024-08-28] MEDS: methylPREDNISolone Sod Succ 125 MG/2 ML VIAL IVPUSH (23:46)
[2024-08-29] VITALS (11 sets, daily range): BP systolic 134–158; BP diastolic 43–74; PULSE 67–102; RESP 16–22; TEMP 36–36.5; O2SAT 93–98
[2024-08-29 00:03] LABS: B Type Natriuretic Peptide 826 pg/mL (<100)
[2024-08-29] MEDS: carvediloL 25 MG TABLET PO ×3 (01:01→19:59)
[2024-08-29] MEDS: Furosemide 40 MG/4 ML VIAL IVPUSH ×3 (01:02→17:07)
[2024-08-29] MEDS: Insulin Glargine,Hum.rec.anlog 100 UNIT/ML 10 ML VIAL 22 UNIT SUBCUT ×2 (01:03→19:59)
[2024-08-29 04:59] LABS: MANUAL DIFF FLAG NO
[2024-08-29 05:01] LABS: Basophils Absolute Auto 0.1 X10*3/uL (0.0-0.2); Basophils Percent Auto 0.5 % (0-2); Eosinophils Percent Auto 0.1 % (0-4); Hematocrit 48.8 % (37.0-47.0); Hemoglobin 15.9 g/dl (12.0-16.0); Imm Gran Abs Auto 0.04 X10*3/uL (0.00-0.03); Imm Gran Pct Auto 0.4 % (0.0-0.4); Lymphocytes Absolute Auto 1.4 X10*3/uL (1.2-4.9); Lymphocytes Percent Auto 13.5 % (20-40); Mean Corpuscular HGB Conc 32.6 g/dl (31.0-35.0); Mean Corpuscular Hemoglobin 29.8 pg (27.0-33.0); Mean Corpuscular Volume 91.6 fL (80.0-98.0); Mean Platelet Volume 12.5 fL (9.4-12.3); Monocytes Absolute Auto 0.2 X10*3/uL (0.1-1.2); Monocytes Percent Auto 1.8 % (2-11); Neutrophils Absolute Auto 8.8 x10*3/uL (2.0-8.3); Neutrophils Percent Auto 83.7 % (45-73); Platelet Count 109 X10*3/uL (160-400); Red Blood Count 5.33 X10*6/uL (4.20-5.50); Red Cell Distribution Width 15.9 % (11.0-16.0); White Blood Count 10.5 X10*3/uL (4.8-10.8)
[2024-08-29 05:14] LABS: Anion Gap 16 (12-20); Blood Urea Nitrogen 18 mg/dL (9-16); Calcium 8.8 mg/dL (8.4-10.2); Carbon Dioxide 20 mmol/L (22-29); Chloride 107 mmol/L (96-108); Creatinine Clr Calc Pharmacy 47.1; Estimated Glomerular Filt Rate 50; Glucose Random 267 mg/dL (60-115); Potassium 4.5 mmol/L (3.3-5.1); Sodium 138 mmol/L (135-145)
[2024-08-29 07:23] LABS: Glucose, Whole Blood 280 mg/dL (60-115)
[2024-08-29] MEDS: Insulin Lispro 100 UNIT/ML 3 ML VIAL SUBCUT ×5 (07:34→19:59)
[2024-08-29] MEDS: 0.9 % Sodium Chloride Flush 3 ML SYRINGE IVFLUSH ×3 (07:35→22:28)
[2024-08-29] MEDS: predniSONE 20 MG TABLET 40 MG PO (08:35)
--- NOTE | 2024-08-29 09:56 | PHA.MEDREC ---
Addendum entered by Lindsey Jacobson RPh 08/29/24 10:12: reviewed by [facility], [place] [facility] [place] did no get meds [place] there except discharge medications from 2023. Original Note: Pharmacy Consult ? Medication Reconciliation Pharmacy has completed the medication reconciliation. Spoke to patient to confirm med list. Patient states she is no longer taking Spironolactone 25mg. Patient states she takes Furosemide 40 mg orally 2 tabs in am (80mg) and 1 tab in pm (40mg); Additional dose in the PM when directed by cardiology. Patient confirmed Lantus Solostar U-100 is 28 units at bedtime. Patient states she is on Humalog TID per sliding scale , however last fill date was 03/15/2019 form [facility], and Entresto 97/103 mg , however last fill date was 12/20/2022. Let both unconfirmed and will notify the
[2024-08-29] MEDS: Albuterol/Iprat 2.5/0.5MG 3 ML AMPUL.NEB INHALE ×3 (11:00→20:35)
[2024-08-29 11:35] LABS: Appearance Urine Clear; Color Urine Yellow; Glucose Urine UA Negative (Negative); Leukocyte Esterase Urine Small (1+) (Negative); Nitrite Urine Negative (Negative); PH 5.5 (5.0-9.0); Specific Gravity - Urine <= 1.005 (1.005-1.025); UMIC TRIGGER UACC YES; Urine Blood Trace (Negative); Urine Ketones Negative (Negative); Urine Protein Trace mg/dL (Neg-Trace)
[2024-08-29] MEDS: Acetaminophen 325 MG TABLET 650 MG PO (11:42)
[2024-08-29 11:46] LABS: Bacteria Urine 3+ (None Seen); Hyaline Casts Urine 0-2 /LPF (0-2); RBC Urine 0-2 /HPF (0-2); Squamous Epithelial Cell Urine 0-2 /HPF (0-2); UACC Culture Trigger YES; WBC Urine 0-5 /HPF (0-5)
[2024-08-29 11:50] LABS: Glucose, Whole Blood 388 mg/dL (60-115)
[2024-08-29] MEDS: Spironolactone 25 MG TABLET PO (12:32)
--- NOTE | 2024-08-29 14:30 | HO.PM.IMPN ---
Subjective Subjective Date of Service: 08/29/24 Interval History: f/u on heart failure exacerbation and copd exacerbation she's feeling better, sugar not well controlled Physical Exam Vital Signs: Vital Signs: Last Vital Signs Temp 97 F 08/29/24 13:57 Pulse 67 08/29/24 13:57 Resp 18 08/29/24 13:57 BP 142/66 H 08/29/24 13:57 Pulse Ox 98 08/29/24 13:57 O2 Del Method Nasal Cannula 08/29/24 13:57 O2 Flow Rate 1 08/29/24 13:57 BMI result Body Mass Index 40.3 Const: Other: General: AO X 3, no acute distress Resp: CTA bilateral CVS: S1,S2,RRR GI: +BS, NT, no distention Skin: No rash Neuro: motor grossly intact Psych: appropriate affect Objective Data Active Medications Acetaminophen (Acetaminophen 325 Mg Tablet) 650 mg PO Q6H PRN PRN Reason: Pain, Mild 1-3,fever,headache Last Admin: 08/29/24 11:42 Dose: 650 mg Documented By: TERESA Albuterol/Ipratropium (Albuterol/Iprat 2.5/0.5mg 3 Ml Ampul.Neb) 3 ml INHALE Q4H PRN PRN Reason: Shortness of Breath/Wheezing Albuterol/Ipratropium (Albuterol/Iprat 2.5/0.5mg 3 Ml Ampul.Neb) 3 ml INHALE RQ4H WHILE AWAKE [facility] Last Admin: 08/29/24 11:00 Dose: 3 ml Documented By: CAL Albuterol/Ipratropium (Albuterol/Iprat 2.5/0.5mg 3 Ml Ampul.Neb) 1 ml INHALE RQID PRN PRN Reason: wheezing Atorvastatin Calcium (Atorvastatin Calcium 80 Mg Tablet) 80 mg PO BEDTIME [facility] Calcium Carbonate (Calcium Carbonate 750 Mg Tab.Chew) 750 mg PO Q4H PRN PRN Reason: Heartburn Carvedilol (Carvedilol 25 Mg Tablet) 25 mg PO BID [facility]; Protocol Last Admin: 08/29/24 12:32 Dose: 25 mg Documented By: ANDREW Dextrose (Dextrose 50 % 25 Gm/50 Ml Syringe) 25 gm IVPUSH Q15M PRN; Protocol PRN Reason: per Hypoglycemia Standing Ord. Diphenhydramine HCl (Diphenhydramine Hcl 12.5 Mg/5 Ml Liquid) 50 mg PO BEDTIME PRN PRN Reason: Sleep Empagliflozin (Empagliflozin 25 Mg Tablet) 25 mg PO DAILY [facility] Last Admin: 08/29/24 14:02 Dose: Not Given Documented By: JOSÉ MIGUEL Non-Admin Reason: Pt states received Escitalopram Oxalate (Escitalopram Oxalate 10 Mg Tablet) 10 mg PO DAILY [facility] Furosemide (Furosemide 40 Mg/4 Ml Vial) 40 mg IVPUSH BID@0900,1800 [facility]; Protocol Last Admin: 08/29/24 08:36 Dose: 40 mg Documented By: FERNANDA Glucose (Glucose Gel 15 Gm Gel..Gram.) 15 gm PO Q15M PRN; Protocol PRN Reason: per Hypoglycemia Standing Ord. Insulin Glargine (Insulin Glargine,Hum.Rec.Anlog 100 Unit/Ml 10 Ml Vial) 22 unit SUBCUT BEDTIME [facility] Last Admin: 08/29/24 01:03 Dose: 22 unit Documented By: EDMUND Insulin Glargine (Insulin Glargine,Hum.Rec.Anlog 100 Unit/Ml 10 Ml Vial) 28 unit SUBCUT BEDTIME [facility] Insulin Human Lispro (Insulin Lispro 100 Unit/Ml 3 Ml Vial) 0 unit SUBCUT QIDACHS [facility]; Protocol Last Admin: 08/29/24 11:57 Dose: 10 unit Documented By: TERESA Magnesium Hydroxide (Milk Of Magnesia 30 Ml Oral.Susp) 30 ml PO DAILY PRN PRN Reason: Constipation Melatonin (Melatonin 3 Mg Tablet) 6 mg PO BEDTIME PRN PRN Reason: Insomnia Ondansetron HCl (Ondansetron Hcl 4 Mg/2 Ml Vial) 4 mg IVPUSH Q8H PRN PRN Reason: Nausea and Vomiting Prednisone (Prednisone 20 Mg Tablet) 40 mg PO DAILY [facility] Last Admin: 08/29/24 08:35 Dose: 40 mg Documented By: FERNANDA Rivaroxaban (Rivaroxaban 20 Mg Tablet) 20 mg PO DAILY@1700 [facility] Sodium Chloride (0.9 % Sodium Chloride Flush 3 Ml Syringe) 3 ml IVFLUSH QSHIFT [facility] Last Admin: 08/29/24 07:35 Dose: 3 ml Documented By: FERNANDA Spironolactone (Spironolactone 25 Mg Tablet) 25 mg PO DAILY [facility]; Protocol Last Admin: 08/29/24 12:32 Dose: 25 mg Documented By: ANDREW Labs 08/29/24 04:17 08/29/24 04:17 Labs: Laboratory Results - last 24 hr 08/28/24 08/28/24 08/28/24 18:31 22:13 23:32 MCV 90.8 MCH 29.8 MCHC 32.8 RDW 16.0 Plt Count 105 L D MPV 11.7 Immature Gran % (Auto) 0.3 Neut % (Auto) 61.6 Lymph % (Auto) 29.9 [place] % (Auto) 5.9 Eos % (Auto) 1.7 Baso % (Auto) 0.6 Lymph # (Auto) 3.6 [place] # (Auto) 0.7 Eos # (Auto) 0.2 Baso # (Auto) 0.1 Abs Immat Gran (auto) 0.04 H Absolute Neuts (auto) 7.4 Absolute Nucleated RBC 0.000 Nucleated RBC % (auto) 0.0 Anion Gap 16 Estim Creat Clear Calc 49.8 Estimated GFR 53 POC Glucose Random Glucose 219 H Lactic Acid 1.5 Calcium 9.1 D Total Bilirubin 1.0 AST 23 ALT 13 Alkaline Phosphatase 102 B-Natriuretic Peptide 826 H Total Protein 7.6 Albumin 4.2 Urine Color Urine Appearance Urine pH Ur Specific [place] Urine Protein Urine Glucose (UA) Urine Ketones Urine Blood Urine Nitrite Ur Leukocyte Esterase Urine RBC Urine WBC Ur Squamous Epith Cells Urine Bacteria Hyaline Casts Influenza Type A (PCR) NEGATIVE Influenza Type B (PCR) NEGATIVE RSV RNA Qual (PCR) NEGATIVE SARS-CoV-2 RNA (RT-PCR) NEGATIVE 08/29/24 08/29/24 08/29/24 04:17 07:16 11:25 MCV 91.6 MCH 29.8 MCHC 32.6 RDW 15.9 Plt Count 109 L MPV 12.5 H Immature Gran % (Auto) 0.4 Neut % (Auto) 83.7 H Lymph % (Auto) 13.5 L [place] % (Auto) 1.8 L Eos % (Auto) 0.1 Baso % (Auto) 0.5 Lymph # (Auto) 1.4 [place] # (Auto) 0.2 Eos # (Auto) 0.0 Baso # (Auto) 0.1 Abs Immat Gran (auto) 0.04 H Absolute Neuts (auto) 8.8 H Absolute Nucleated RBC 0.000 Nucleated RBC % (auto) 0.0 Anion Gap 16 Estim Creat Clear Calc 47.1 Estimated GFR 50 POC Glucose 280 H Random Glucose 267 H Lactic Acid Calcium 8.8 Total Bilirubin AST ALT Alkaline Phosphatase B-Natriuretic Peptide Total Protein Albumin Urine Color Yellow Urine Appearance Clear Urine pH 5.5 Ur Specific [place] <= 1.005 Urine Protein Trace Urine Glucose (UA) Negative Urine Ketones Negative Urine Blood Trace H Urine Nitrite Negative Ur Leukocyte Esterase Small (1+) H Urine RBC 0-2 Urine WBC 0-5 Ur Squamous Epith Cells 0-2 Urine Bacteria 3+ Hyaline Casts 0-2 Influenza Type A (PCR) Influenza Type B (PCR) RSV RNA Qual (PCR) SARS-CoV-2 RNA (RT-PCR) 08/29/24 11:46 MCV MCH MCHC RDW Plt Count MPV Immature Gran % (Auto) Neut % (Auto) Lymph % (Auto) [place] % (Auto) Eos % (Auto) Baso % (Auto) Lymph # (Auto) [place] # (Auto) Eos # (Auto) Baso # (Auto) Abs Immat Gran (auto) Absolute Neuts (auto) Absolute Nucleated RBC Nucleated RBC % (auto) Anion Gap Estim Creat Clear Calc Estimated GFR POC Glucose 388 H* Random Glucose Lactic Acid Calcium Total Bilirubin AST ALT Alkaline Phosphatase B-Natriuretic Peptide Total Protein Albumin Urine Color Urine Appearance Urine pH Ur Specific [place] Urine Protein Urine Glucose (UA) Urine Ketones Urine Blood Urine Nitrite Ur Leukocyte Esterase Urine RBC Urine WBC Ur Squamous Epith Cells Urine Bacteria Hyaline Casts Influenza Type A (PCR) Influenza Type B (PCR) RSV RNA Qual (PCR) SARS-CoV-2 RNA (RT-PCR) Assessment and Plan (1) CHF (congestive heart failure): Status: Acute Plan 69-year-old female with pertinent history of congestive heart failure with reduced ejection fraction, status post biventricular ICD and CardioMEMS in place, CAD status post CABG, history of PE on Xarelto, tobacco use disorder, COPD not on home oxygen, TAQUERIA on CPAP, insulin-dependent type 2 diabetes mellitus, mood disorder who presents to the emergency department for evaluation of dyspnea. Acute hypoxemic respiratory failure due to acute decompensation of congestive heart failure with reduced ejection fraction iv diuretics i/o, monitor electrolytes, continue aldactone, jardiance, coreg unclear if still on entresto. Acute exacerbation of COPD in the setting of above iv steroid, bronchodilatros by neb, smoking cessation advised but won't follow CAD, continue statin, ASA, BB Insulin-dependent diabetes mellitus with hyperglycemia continue lantus, sliding scale insulin, jardiance History of PE: On Xarelto Mood disorder: Continue home citalopram TAQUERIA: CPAP at bedtime Tobacco use disorder: Refused nicotine patch in the hospital and vows not to quit smoking DVT prophylaxis: Pipparelto Full code Admit as inpatient and will require two night minimum hospital stay for supplemental oxygen, IV diuresis (as above), which is not possible in a lesser acute setting. Quality Stroke Does the patient have a stroke diagnosis?: No VTE Prior VTE?: No VTE Risk Level:: Medical - moderate - high VTE Device Contraindication: Treatment Not Indicated VTE Drug Contraindication: N/A - Med Ordered
[2024-08-29 16:34] LABS: Glucose, Whole Blood 313 mg/dL (60-115)
--- NOTE | 2024-08-29 16:35 | MHC.CM.PN ---
PT REPORTS SHE LIVES WITH HER SON, DAUGHTER IN LAW, DAUGHTER AND GRAND DAUGHTER SHE USES A CPAP FOR DME AND IS INDEPENDENT WITH CARE HCP ON FILE PCP: KIESHA PERRY IMM DELIVERED DCP: HOME NO SERVICES [facility]
[2024-08-29 19:40] LABS: Glucose, Whole Blood 309 mg/dL (60-115)
[2024-08-29] MEDS: Rivaroxaban 20 MG TABLET PO (19:59)
[2024-08-29] MEDS: Atorvastatin Calcium 80 MG TABLET PO (19:59)
[2024-08-30 07:23] LABS: Glucose, Whole Blood 226 mg/dL (60-115)
[2024-08-30 07:42] VITALS: BP 159/72; PULSE 65; RESP 17; TEMP 36.2; O2SAT 96
[2024-08-30] MEDS: Insulin Lispro 100 UNIT/ML 3 ML VIAL SUBCUT (07:44)
[2024-08-30] MEDS: Albuterol/Iprat 2.5/0.5MG 3 ML AMPUL.NEB INHALE (08:10)
[2024-08-30 08:13] VITALS: PULSE 72; RESP 18; O2SAT 98
[2024-08-30] MEDS: Spironolactone 25 MG TABLET PO (08:35)
[2024-08-30] MEDS: Empagliflozin 25 MG TABLET PO (08:36)
[2024-08-30] MEDS: carvediloL 25 MG TABLET PO (08:36)
[2024-08-30] MEDS: Furosemide 40 MG/4 ML VIAL IVPUSH (08:36)
[2024-08-30] MEDS: Escitalopram Oxalate 10 MG TABLET PO (08:36)
[2024-08-30] MEDS: predniSONE 20 MG TABLET 40 MG PO (08:36)
[2024-08-30] MEDS: 0.9 % Sodium Chloride Flush 3 ML SYRINGE IVFLUSH (08:36)
--- NOTE | 2024-08-30 09:26 | PM.DS ---
DS: Providers Provider Date of Service: 08/30/24 Date of admission: 08/28/24 23:31 Date of discharge: 08/30/24 Primary care physician: Carmina Martins MD DS: Diagnosis Discharge Diagnosis (1) CHF (congestive heart failure): Status: Acute DS: Summary Hospital Course Hospital Course: Chief Complaint: Dyspnea This is a 69-year-old female with pertinent history of congestive heart failure with reduced ejection fraction, status post biventricular ICD and CardioMEMS in place, CAD status post CABG, history of PE on Xarelto, tobacco use disorder, COPD not on home oxygen, TAQUERIA on CPAP, insulin-dependent type 2 diabetes mellitus, mood disorder who presents to the emergency department for evaluation of dyspnea. Patient states her symptoms started 3 days prior to presentation. She has been having dyspnea which is worse with exertion and worse when lying down. She tried her home inhaler but no relief. Continues to smoke cigarettes. Also noticed lower extremity leg swelling. Patient states she has been having right-sided rib pain that is making it difficult to breathe. Minimal nonproductive cough. Has associated wheezing. No fever, chills, chest pain, palpitations, abdominal pain, changes in urinary or bowel habits. Hospital course 69-year-old female with pertinent history of congestive heart failure with reduced ejection fraction, status post biventricular ICD and CardioMEMS in place, CAD status post CABG, history of PE on Xarelto, tobacco use disorder, COPD not on home oxygen, TAQUERIA on CPAP, insulin-dependent type 2 diabetes mellitus, mood disorder who presents to the emergency department for evaluation of dyspnea and admitted for chf and copd exacerbation. Acute hypoxemic respiratory failure due to acute decompensation of congestive heart failure with reduced ejection fraction. Treated with IV diuretic with sinficant improvement and will transition to usual oral Lasix. COPD exacerbation was treated with IV steroid, and now changed to oral prednisone for 5 days. She feels well now no shorntess of breath, off oxygen and would like to go home. We discussed the need for smoking cessation and is not ready at this time but will work on cutting back. CT of chest showed a 6 mm pul nodule and is recommended for repeat CT in 3 to 6 months CAD, continue statin, ASA, BB Insulin-dependent diabetes mellitus with hyperglycemia continue lantus, sliding scale insulin, jardiance History of PE: On Xarelto Mood disorder: Continue home citalopram TAQUERIA: CPAP at bedtime Tobacco use disorder: Refused nicotine patch in the hospital and vows not to quit smoking Final diagnoses: copd exacerbation acute on chronic systolic heart failure with exacerbation chronic tobacco use Time Attestation Discharge Coordination Time (in mins): 35 Quality: Safe Use of Opioids Does Pt have an Active Cancer Diagnosis on the Problem List?: No Quality: Stroke Does the patient have a stroke diagnosis?: No Physical Exam Vital Signs: Vital Signs: Last Vital Signs Temp 97.2 F 08/30/24 07:42 Pulse 72 08/30/24 08:13 Resp 18 08/30/24 08:13 BP 159/72 H 08/30/24 07:42 Pulse Ox 96 08/30/24 07:42 O2 Del Method Room Air 08/30/24 07:42 O2 Flow Rate 1 08/29/24 23:29 BMI result Body Mass Index 40.3 DS: Data Data Completed and Pending Completed studies during hospitalization [Text1]: Procedures Assistance with Respiratory Ventilation, Less than 24 Consecutive Hours, Continuous Positive Airway Pressure (03/29/24) Dilation of Right Ureter with Intraluminal Device, Via Natural or Artificial Opening Endoscopic (02/09/24) Fluoroscopy of Right Kidney, Ureter and Bladder (02/09/24) Insertion of Infusion Device into Superior Vena Cava, Percutaneous Approach (02/09/24) Introduction of Vasopressor into Peripheral Vein, Percutaneous Approach (02/09/24) Ultrasonography of Superior Vena Cava, Guidance (02/09/24) Labs on day of discharge: Laboratory Results - last 24 hr 08/29/24 08/29/24 08/29/24 11:25 11:46 16:26 POC Glucose 388 H* 313 H Urine Color Yellow Urine Appearance Clear Urine pH 5.5 Ur Specific [place] <= 1.005 Urine Protein Trace Urine Glucose (UA) Negative Urine Ketones Negative Urine Blood Trace H Urine Nitrite Negative Ur Leukocyte Esterase Small (1+) H Urine RBC 0-2 Urine WBC 0-5 Ur Squamous Epith Cells 0-2 Urine Bacteria 3+ Hyaline Casts 0-2 08/29/24 08/30/24 19:34 07:17 POC Glucose 309 H 226 H Urine Color Urine Appearance Urine pH Ur Specific [place] Urine Protein Urine Glucose (UA) Urine Ketones Urine Blood Urine Nitrite Ur Leukocyte Esterase Urine RBC Urine WBC Ur Squamous Epith Cells Urine Bacteria Hyaline Casts Preliminary micro results at discharge 08/29/24 Unknown Urine Culture - Preliminary Urine clean catch - Clean Catch Midstream Culture in progress. 08/28/24 22:13 Blood Culture - Preliminary Blood - Venous No growth after 24 hours. 08/28/24 22:12 Blood Culture - Preliminary Blood - Venous No growth after 24 hours. Discharge Plan Discharge Anticipated Discharge Date/Time: 08/30/24 09:21 Patient Disposition: Home, Self-Care Discharge Diagnosis: Pneumonia, copd exacerbation Referrals: Carmina Varela MD [Primary Care Provider] - 1 Week Discharge Medications: Continued carvedilol 25 mg tablet 25 mg PO BID Qty: 180 1RF citalopram 20 mg tablet 20 mg PO DAILY ZzzQuil 50 mg/30 mL Liquid 50 mg PO BEDTIME PRN (Reason: Sleep) insulin glargine [Lantus Solostar U-100 Insulin] 100 unit/mL (3 mL) insulin pen 28 unit subcut BEDTIME Jardiance 25 mg Tablet 25 mg PO DAILY Entresto 97-103 mg Tablet 1 tab PO BEDTIME Combivent Respimat 20-100 mcg/actuation mist 1 puff INHALATION QID PRN (Reason: wheezing) spironolactone [Aldactone] 25 mg tablet 25 mg PO DAILY 90 Days Qty: 90 0RF furosemide 40 mg tablet 40 mg PO BEDTIME furosemide 40 mg tablet 40 mg PO BEDTIME PRN (Reason: WHEN DIRECTED BY THE REAL ESTATE PARALEGAL) Xarelto 20 mg tablet 20 mg PO BEDTIME furosemide 40 mg tablet 80 mg PO DAILY Rx Instructions: 40 mg orally 2 tabs in am (80mg) and 1 tab in pm (40mg); Additional dose in the PM when directed by cardiology insulin aspart U-100 100 unit/mL (3 mL) insulin pen 1 sliding scale dose subcut TIDAC atorvastatin 80 mg tablet 80 mg PO BEDTIME Discharge Orders: Discharge Order (Routine); Ordered 08/30/24 Ordered By: Poncho Pelletier Diet: Advance to usual diet Activity on Discharge: As tolerated Stand Alone Forms: Patient Portal Discharge page Print Language: Ukrainian Other Ambulatory Orders: CT chest wo IV con (Routine) Timeframe: 3 Months Facility: [facility] - Location: CT Scan Ordered By: Poncho Pelletier Care Plan Goals: recovery from copd exacerbation Health Concerns: copd with acute exacerbation Plan of Treatment: take prednisone as recommended, stop Assessment: see above
--- NOTE | 2024-08-30 10:25 | MHC.CM.PN ---
pt medically cleared for dc home self care, [facility] shuttle for transport
== END 2024-08-30 09:56 | disposition home or self-care (01) | DRG 291 ==
LOC: HO.ED 23:17 → HO.EDOVER 23:34 → HO.S3 08-29 12:18
PROVIDERS: Nurse Practitioner Family; Admitting Provider Student in an Organized Health Care Education/Training Program; Emergency Provider Emergency Medicine; PCP Internal Medicine; Visit Provider Internal Medicine
DX: I50.23 Acute on chronic systolic (congestive) heart failure (principal); J96.01 Acute respiratory failure with hypoxia; J44.1 Chronic obstructive pulmonary disease with (acute) exacerbation; Z95.811 Presence of heart assist device; I25.10 Atherosclerotic heart disease of native coronary artery without angina pectoris; F17.210 Nicotine dependence, cigarettes, uncomplicated; E11.65 Type 2 diabetes mellitus with hyperglycemia; G47.33 Obstructive sleep apnea (adult) (pediatric); Z20.822 Contact with and (suspected) exposure to COVID-19; Z95.810 Presence of automatic (implantable) cardiac defibrillator; Z86.711 Personal history of pulmonary embolism; Z95.5 Presence of coronary angioplasty implant and graft; Z71.6 Tobacco abuse counseling; Z79.4 Long term (current) use of insulin; Z79.01 Long term (current) use of anticoagulants; Z79.899 Other long term (current) drug therapy
CPT/HCPCS: 0241U; 36415; 71046; 71250; 80048; 80053; 81001; 82947; 83605; 83880; 84484; 85025; 87040; 87086; 87088; 87186; 93005; 94640; 94660; 99285; J0456; J0696; J1938; J2270; J2919

== ENCOUNTER → 2024-08-28 18:20 | Outpatient (BNV) | payer OTHER, SELFPAY ==
[2021-10-15 11:10] VITALS: BP 110/70; BMI 46.0
== END ==
PROVIDERS: PCP Internal Medicine; Visit Provider Radiology Neuroradiology
DX: J90 Pleural effusion, not elsewhere classified (principal); R91.8 Other nonspecific abnormal finding of lung field
CPT/HCPCS: 71046; 71250

== ENCOUNTER → 2024-08-28 19:03 | Outpatient (BNV) | payer OTHER, SELFPAY ==
[2021-10-15 11:10] VITALS: BP 110/70; BMI 46.0
== END ==
PROVIDERS: Admitting Provider Student in an Organized Health Care Education/Training Program; Emergency Provider Emergency Medicine; PCP Internal Medicine; Visit Provider Internal Medicine
DX: I49.3 Ventricular premature depolarization (principal); Z95.0 Presence of cardiac pacemaker
CPT/HCPCS: 93010

== ENCOUNTER → 2024-08-28 23:31 | Outpatient (BNV) | payer OTHER, SELFPAY ==
[2021-10-15 11:10] VITALS: BP 110/70; BMI 46.0
== END ==
PROVIDERS: Admitting Provider Student in an Organized Health Care Education/Training Program; Emergency Provider Emergency Medicine; PCP Internal Medicine; Visit Provider Student in an Organized Health Care Education/Training Program
DX: R09.02 Hypoxemia (principal); I50.9 Heart failure, unspecified
CPT/HCPCS: 99223; 99232; 99239

== ENCOUNTER 2024-09-07 03:52 | Inpatient (IN) | payer OTHER, SELFPAY ==
[2021-10-15 11:10] VITALS: BP 110/70; BMI 46.0
[2024-09-07] VITALS (16 sets, daily range): BP systolic 87–133; BP diastolic 53–83; PULSE 61–110; RESP 15–22; TEMP 35.6–36.4; O2SAT 92–99; BMI 40.4
--- NOTE | ~2024-09-07 | XR_ITS ---
CLINICAL HISTORY: congestion, SOB, cough 1 view chest x-ray Comparison: CR - XR CHEST 2V - 08/28/24 18:25 EDT Findings: There has been interval resolution of bibasilar opacities. Mild peripheral right midlung opacity is present. The heart is enlarged in size. Median sternotomy wires and left AICD device are again noted. No new osseous abnormality is identified. IMPRESSION: 1. Interval resolution of bibasilar opacities. 2. Mild peripheral right midlung opacity, which may represent small amount of pleural fluid along the right minor fissure. 3. Cardiomegaly. This document has been electronically signed by: Sherif Bermeo on 09/07/2024 05:28:58
--- NOTE | 2024-09-07 04:07 | ECG_ITS ---
Test Reason : SOB Blood Pressure : */* mmHG Vent. Rate : 97 BPM Atrial Rate : 122 BPM P-R Int : * ms QRS Dur : 136 ms QT Int : 428 ms P-R-T Axes : 52 227 46 degrees QTcB Int : 543 ms Ventricular-paced rhythm Possible Atrial tachycardia with A-V dissociation Biventricular pacemaker detected Abnormal ECG When compared with ECG of 28-Aug-2024 19:15, Premature ventricular complexes are no longer Present Vent. rate has increased by 6 bpm Referred By: Generic ED Physician Electronically Signed By: AVTAR POLLACK MD
[2024-09-07] MEDS: Albuterol/Iprat 2.5/0.5MG 3 ML AMPUL.NEB INHALE ×3 (04:19→11:08)
--- NOTE | 2024-09-07 04:31 | ED.ASTHMA ---
HPI - Asthma General Chief Complaint: Asthma Stated Complaint: SOB, hx COPD & asthma, recently had pneumonia Time Seen by Provider: 09/07/24 04:22 Source: patient Mode of arrival: ambulatory Limitations: no limitations History of Present Illness ED Provider: DR. Alcantara HPI Narrative: 69-year-old female with pertinent history of CHF with reduced ejection fracture, s/p biventricular ICD, CAD s/p CABG, history of PE on Xarelto, tobacco use disorder, COPD not using supplemental oxygen, TAQUERIA on CPAP at night, T2 DM, presented with 1 day of shortness of breath more with exertion, increased lower extremity edema patient takes Lasix at home, patient also report difficulty breathing when she in supine position at nighttime. Related Data Home Medications ?Medication ?Instructions ?Recorded ?Confirmed atorvastatin 80 mg tablet 80 mg PO BEDTIME 02/27/20 08/29/24 insulin aspart U-100 100 unit/mL 1 sliding scale dose subcut TIDAC 06/26/20 06/09/24 (3 mL) subcutaneous pen citalopram 20 mg tablet 20 mg PO DAILY 07/21/20 08/29/24 diphenhydramine HCl 50 mg/30 mL 50 mg PO BEDTIME PRN Sleep 08/15/23 08/29/24 oral liquid (ZzzQuil) insulin glargine 100 unit/mL (3 28 unit subcut BEDTIME 02/04/24 08/29/24 mL) subcutaneous pen (Lantus Solostar U-100 Insulin) empagliflozin 25 mg tablet 25 mg PO DAILY 02/09/24 08/29/24 (Jardiance) sacubitril 97 mg-valsartan 103 mg 1 tab PO BEDTIME 02/09/24 06/09/24 tablet (Entresto) ipratropium 20 mcg-albuterol 100 1 puff inhalation QID PRN wheezing 03/29/24 08/29/24 mcg/actuation mist for inhalation (Combivent Respimat) furosemide 40 mg tablet 40 mg PO BEDTIME 08/29/24 08/29/24 furosemide 40 mg tablet 40 mg PO BEDTIME PRN WHEN DIRECTED 08/29/24 08/29/24 BY THE SENIOR GENETIC COUNSELOR furosemide 40 mg tablet 80 mg PO DAILY 08/29/24 08/29/24 rivaroxaban 20 mg tablet (Xarelto) 20 mg PO BEDTIME 08/29/24 08/29/24 Previous Rx's ?Medication ?Instructions ?Recorded spironolactone 25 mg tablet 25 mg PO DAILY 90 days #90 tabs 05/06/24 (Aldactone) carvedilol 25 mg tablet 25 mg PO BID #180 tabs 06/14/24 prednisone 20 mg tablet 40 mg (2 x 20 mg) PO DAILY #6 tabs 08/30/24 Allergies Allergy/AdvReac Type Severity Reaction Status Date / Time No Known Allergies Allergy Verified 09/07/24 04:04 Review of Systems Review of Systems: All other systems are reviewed and are negative Constitutional: Reports as per HPI and Reports no additional constitutional complaints Eyes: Reports as per HPI and Reports no additional eye complaints Reports system reviewed and no additional complaints, except as documented Cardiovascular: Reports as per HPI and Reports no additional cardiovascular complaints Respiratory: Reports as per HPI and Reports no additional respiratory complaints Gastrointestinal: Reports as per HPI and Reports no additional gastrointestinal complaints Genitourinary: Reports no additional female genitourinary complaints Musculoskeletal: Reports no additional musculoskeletal complaints Skin/Breast: Reports system reviewed and no additional complaints, except as docu Psychiatric: Reports no additional psychiatric complaints Endocrine: Reports no additional endocrine complaints Hematologic/Lymphatic: Reports no additional hematologic/lymphatic complaints Allergic/Immunologic: Reports no additional allergic/immunologic complaints Reports system reviewed and no additional complaints, except as documented and Reports Abnormal speech present [facility] Past Medical History Medical History Chronic lung disease CHF (congestive heart failure) Biventricular ICD (implantable cardioverter-defibrillator) in place CHF (congestive heart failure) Sleep apnea Presence of CardioMEMS HF system Hx of myocardial infarction Anxiety and depression Osteoarthritis Fatty liver Restrictive lung disease TAQUERIA treated with BiPAP Morbid obesity CAD (coronary artery disease) Non-rheumatic aortic stenosis Atherosclerotic cardiovascular disease Acute on chronic systolic and diastolic heart failure, NYHA class 3 Leukocytosis Dyspnea Transaminitis Hypoxia Congestive heart failure TAQUERIA (obstructive sleep apnea) NSVT (nonsustained ventricular tachycardia) Cardiomyopathy Chronic systolic heart failure Diabetes mellitus HLD (hyperlipidemia) HTN (hypertension) Surgical History History of incision and drainage Status post coronary artery bypass graft Stented coronary artery Hx of CABG History of cardiac cath Hx of cardiac cath Hx of cardiac cath Hx of appendectomy History of cholecystectomy Family History Family History Father No problems noted. Mother No problems noted. Social History Social History Household Members: Family Household Members Other:: son and daughter in law Housing: Apartment Are you a primary care management specialist to a significant other at home: No Do you presently have visiting nurse or other home services: No Alcohol intake: never Comment: chronic back pain Patient Tobacco Use Status: Current everyday Tobacco user Tobacco use type: Cigarette Cigarette Packs Per Day: 0.25 Cigarettes Per Day: 5 Years Smoked: 30 Smoked in Last 30 Days: Yes e-Cigarette/Vaping Use: Never Used Second Hand Smoke Exposure: Yes Use of substances other than those prescribed or required for medical reasons: No Advance Directives: Yes Advance Directives on File: Yes Advance Directives Date on File: 11/07/22 Do you have a plan to hurt others: No Plan service: No Current occupational status: unemployed and disabled Current occupation: rt hand Physical Exam Vital Signs: Vital Signs: Last Vital Signs Temp 96.1 F L 09/07/24 04:06 Pulse 109 H 09/07/24 05:18 Resp 20 09/07/24 05:18 BP 110/65 09/07/24 05:28 Pulse Ox 96 09/07/24 05:18 O2 Del Method Room Air 09/07/24 05:18 BMI result Body Mass Index 40.4 Vital signs have been reviewed and appear to be correct. Blood pressure elevated. Heart rate normal. Respiratory rate normal. Temperature normal. Oxygen saturation normal. Appearance: Alert. Oriented X3. No acute distress. Head: Normal external exam. Normocephalic. Atraumatic. No Aaron signs noted. No raccoon eyes noted Eyes: PERRLA. EOMI. Conjunctiva and sclera normal. Eyelids normal. ENT: TM's Normal. Pharynx normal. Uvula midline. Moist mucous membranes. No trismus noted. No drooling noted. No muffled voice noted. Neck: Normal inspection. Neck supple. FROM. No adenopathy. Thyroid Normal. No meningeal signs. No neck mass noted. CVS: Normal heart rate and rhythm. Heart sound normal. No murmurs noted. Pulses normal throughout. Respiratory: No respiratory distress. Painless inspiration. Breath sounds normal. Bilateral diffuse expiratory wheezing with prolonged expiration, bilateral basilar rales, Chest nontender. No accessory muscle usage noted or decreased air movement noted. Abdomen: Soft and nontender. Bowel sounds normal in all 4 quadrants. No distention noted. No organomegaly noted. No visible injury noted. Back: No CVA tenderness. Full range of motion noted. Skin: Skin warm and dry. Normal skin color. Normal skin turgor. No rashes/lesions/lacerations noted. Extremities: No lower extremity edema. Extremities exhibit normal range of motion. Extremities nontender. Neuro: Oriented X 3. Cranial nerve exam: II-XII are grossly intact No motor deficit. No sensory deficit. Reflexes normal. Course Reevaluation(s) Reevaluation #1: Presented with severe dyspnea with exertion. Initial exam is consistent with congestive heart failure +2 lower extremity edema, rales bilaterally, negative JVD. Patient improved with 20 of Lasix blood pressure is running on the softer side. There is a chronic elevation of troponin patient has no chest pain with no EKG changes. Leukocytosis secondary to steroids usage. Time: 05:50 Medications Administered Discontinued Medications Generic Name Dose Route Start Last Admin Trade Name Freq PRN Reason Stop Dose Admin Albuterol/Ipratropium 3 ml 09/07/24 04:11 09/07/24 04:19 Albuterol/Iprat 2.5/0.5mg 3 Ml Ampul.Neb INHALE 09/07/24 04:12 3 ml ONCE ONE Administration Furosemide 60 mg 09/07/24 04:33 09/07/24 05:28 Furosemide 100 Mg/10 Ml Vial IVPUSH 09/07/24 04:34 20 mg ONCE ONE Administration Protocol Insulin Human Lispro 10 unit 09/07/24 05:35 09/07/24 05:45 Insulin Lispro 100 Unit/Ml 3 Ml Vial SUBCUT 09/07/24 05:36 10 unit ONCE ONE Administration Nitroglycerin 0.5 inch 09/07/24 04:33 09/07/24 05:24 Nitroglycerin 2 % Oint 1 Gm Packet TRANSDERMA 09/07/24 04:34 Not Given ONCE ONE Medical Decision Making Differential Diagnosis Differential Diagnoses: The differential diagnosis associated with the presentation includes (COPD, CHF, ACS, electrolyte derangement, severe anemia.) Admission/Observation Consideration of admission/observation: Escalation of care including admission/observation considered Consult Healthcare Provider Management of the patient was discussed with: Hospitalist (Dr. Romero) Lab Data MDM Lab Attestation statement: I reviewed the patient's lab results. 09/07/24 04:32 09/07/24 04:32 Labs: Lab Results 09/07/24 09/07/24 09/07/24 Range/Units 04:32 04:33 04:36 WBC 18.2 H (4.8-10.8) X10*3/uL RBC 5.70 H (4.20-5.50) X10*6/uL Hgb 17.2 H (12.0-16.0) g/dl Hct 51.2 H (37.0-47.0) % MCV 89.8 (80.0-98.0) fL MCH 30.2 (27.0-33.0) pg MCHC 33.6 (31.0-35.0) g/dl RDW 15.2 (11.0-16.0) % Plt Count 112 L (160-400) X10*3/uL MPV 12.0 (9.4-12.3) fL Immature Gran % (Auto) 0.8 H (0.0-0.4) % Neut % (Auto) 52.6 (45-73) % Lymph % (Auto) 40.3 H (20-40) % Turner % (Auto) 4.1 (2-11) % Eos % (Auto) 1.7 (0-4) % Baso % (Auto) 0.5 (0-2) % Lymph # (Auto) 7.3 H (1.2-4.9) X10*3/uL Turner # (Auto) 0.8 (0.1-1.2) X10*3/uL Eos # (Auto) 0.3 (0.0-0.4) X10*3/uL Baso # (Auto) 0.1 (0.0-0.2) X10*3/uL Abs Immat Gran (auto) 0.15 H (0.00-0.03) X10*3/uL Absolute Neuts (auto) 9.6 H (2.0-8.3) x10*3/uL Absolute Nucleated RBC 0.000 (0.0-0.012) X10*3/uL Nucleated RBC % (auto) 0.0 (0.0-0.2) /100WBC Smear Tech's Comments VERIFIED VBG pH 7.36 (7.32-7.43) VBG pCO2 33 mmHg VBG pO2 47 mmHg VBG HCO3 19 L (22-26) mmol/L VBG O2 Saturation 79.0 % VBG Base Excess -4.7 mmol/L Sodium 135 (135-145) mmol/L Potassium 5.2 H (3.3-5.1) mmol/L Chloride 105 (96-108) mmol/L Carbon Dioxide 18 L (22-29) mmol/L Anion Gap 17 (12-20) BUN 23 H (9-16) mg/dL Creatinine 1.49 H (0.5-1.4) mg/dL Estim Creat Clear Calc 34.5 Estimated GFR 35 Random Glucose 430 H* (60-115) mg/dL Calcium 8.9 (8.4-10.2) mg/dL Total Bilirubin 0.6 (0.0-1.0) mg/dL AST 72 H (5-31) U/L ALT 39 H (0-31) U/L Alkaline Phosphatase 179 H (39-117) U/L Troponin I High Sens 612.6 H* (<3.5-17.0) ng/L B-Natriuretic Peptide 495 H (<100) pg/mL Total Protein 7.5 (6.5-8.0) g/dL Albumin 3.8 (3.5-5.0) g/dL Independent Interpretation I performed an independent interpretation of an: Plain X-Ray (Chest:1. Interval resolution of bibasilar opacities. 2. Mild peripheral right midlung opacity, which may represent small amount of pleural fluid along the right minor fissure. 3. Cardiomegaly.) Radiology Impression Discussion of test interpretation with radiology: I have reviewed the radiologist's reading. Discharge Plan Discharge Clinical Impression: Acute exacerbation of CHF (congestive heart failure) Patient Disposition: Admitted As Inpatient Prescriptions: No Action carvedilol 25 mg tablet 25 mg PO BID Qty: 180 1RF citalopram 20 mg tablet 20 mg PO DAILY ZzzQuil 50 mg/30 mL Liquid 50 mg PO BEDTIME PRN (Reason: Sleep) insulin glargine [Lantus Solostar U-100 Insulin] 100 unit/mL (3 mL) insulin pen 28 unit subcut BEDTIME Jardiance 25 mg Tablet 25 mg PO DAILY Entresto 97-103 mg Tablet 1 tab PO BEDTIME Combivent Respimat 20-100 mcg/actuation mist 1 puff INHALATION QID PRN (Reason: wheezing) spironolactone [Aldactone] 25 mg tablet 25 mg PO DAILY 90 Days Qty: 90 0RF furosemide 40 mg tablet 40 mg PO BEDTIME furosemide 40 mg tablet 40 mg PO BEDTIME PRN (Reason: WHEN DIRECTED BY THE SENIOR GENETIC COUNSELOR) Xarelto 20 mg tablet 20 mg PO BEDTIME furosemide 40 mg tablet 80 mg PO DAILY Rx Instructions: 40 mg orally 2 tabs in am (80mg) and 1 tab in pm (40mg); Additional dose in the PM when directed by cardiology prednisone 20 mg tablet 40 mg PO DAILY Qty: 6 0RF insulin aspart U-100 100 unit/mL (3 mL) insulin pen 1 sliding scale dose subcut TIDAC atorvastatin 80 mg tablet 80 mg PO BEDTIME Print Language: Spanish
[2024-09-07 04:38] LABS: Basophils Absolute Auto 0.1 X10*3/uL (0.0-0.2); Basophils Percent Auto 0.5 % (0-2); Eosinophils Absolute Auto 0.3 X10*3/uL (0.0-0.4); Eosinophils Percent Auto 1.7 % (0-4); Hematocrit 51.2 % (37.0-47.0); Hemoglobin 17.2 g/dl (12.0-16.0); Imm Gran Abs Auto 0.15 X10*3/uL (0.00-0.03); Imm Gran Pct Auto 0.8 % (0.0-0.4); Lymphocytes Percent Auto 40.3 % (20-40); MANUAL DIFF FLAG SCAN; Mean Corpuscular HGB Conc 33.6 g/dl (31.0-35.0); Mean Corpuscular Hemoglobin 30.2 pg (27.0-33.0); Mean Corpuscular Volume 89.8 fL (80.0-98.0); Monocytes Absolute Auto 0.8 X10*3/uL (0.1-1.2); Monocytes Percent Auto 4.1 % (2-11); Neutrophils Absolute Auto 9.6 x10*3/uL (2.0-8.3); Neutrophils Percent Auto 52.6 % (45-73); Platelet Count 112 X10*3/uL (160-400); Red Cell Distribution Width 15.2 % (11.0-16.0); SCAN SMEAR FLAG 1; White Blood Count 18.2 X10*3/uL (4.8-10.8)
[2024-09-07 04:39] LABS: Venous Blood Gas Refer to POC result
[2024-09-07 04:40] LABS: VBG Base Excess -4.7 mmol/L; VBG HCO3 19 mmol/L (22-26); VBG pCO2 33 mmHg; VBG pH 7.36 (7.32-7.43); VBG pO2 47 mmHg
[2024-09-07 04:53] LABS: Lymphocytes Absolute Auto 7.3 X10*3/uL (1.2-4.9)
[2024-09-07 04:56] LABS: SLIDE REVIEW VERIFIED
[2024-09-07 04:57] LABS: B Type Natriuretic Peptide 495 pg/mL (<100)
[2024-09-07 05:05] LABS: Troponin-I High Sensitivity 612.6 ng/L (<3.5-17.0)
[2024-09-07 05:06] LABS: Alanine Aminotransferase 39 U/L (0-31); Albumin Level 3.8 g/dL (3.5-5.0); Alkaline Phosphatase 179 U/L (39-117); Anion Gap 17 (12-20); Aspartate Amino Transferase 72 U/L (5-31); Bilirubin Total 0.6 mg/dL (0.0-1.0); Blood Urea Nitrogen 23 mg/dL (9-16); Calcium 8.9 mg/dL (8.4-10.2); Carbon Dioxide 18 mmol/L (22-29); Chloride 105 mmol/L (96-108); Creatinine Clr Calc Pharmacy 34.5; Estimated Glomerular Filt Rate 35; Glucose Random 430 mg/dL (60-115); Potassium 5.2 mmol/L (3.3-5.1); Sodium 135 mmol/L (135-145); Total Protein 7.5 g/dL (6.5-8.0)
--- OUTSIDE RECORDS SUMMARY | 2024-09-07 05:07 | XMS_ITS | Encounter Summary ---
Author Organization [facility] Address [address] [place] [address] Care Team Providers Care Skills Instructor Name Role Phone Nancy Elliott DO Unavailable Unavailable Shawanda Oliver MD Primary Care Provider Noah Gramajo Primary Care Provider [phone] Carmina Varela MD Primary Care Prov ider Db Martino MD Unavailable Unavailable Dario Ling Unavailable Unavailable Encounter Details Date Type Department Care Team Description 12/19/2020 Welding Machine Operator Helper Gas Report Medical Records [address] [place] [address] Abstract, Provider Social History Tobacco Use Types [...] on filedocumented in this encounter Care Teams Skills Instructor Relationship Specialty Start Date End Date Shawanda Oliver MD PCP - General Internal Medicine 08/24/20 10/31/21 Noah Parks [address] [place] [address] PCP - General Internal Medicine 11/01/21 11/25/21 Carmina Varela MD [address] [place] [address] PCP - General Internal Medicine 11/26/21 Nancy Elliott, DO Internal Medicine 01/28/14 08/31/22 Db Martino MD [address] [place] [address] Specialist Cardiology 09/01/22 Dario Ling [address] [place] [address] Specialist Pulmonology 09/01/22 documented as of this encounter
--- OUTSIDE RECORDS SUMMARY | 2024-09-07 05:07 | XMS_ITS | Encounter Summary ---
Author Organization [facility] Address [address] [place] [address] Care Team Providers Care Dinkey Engineer Name Role Phone [place] Colasacco, Nancy DO Primary Care Pro vider Unavailable Radha Mccray Primary Care Provider Unavailabl e [place] Colasacco, Nancy DO Unavailable Unavailable [place] Colasacco, Nancy DO Primary Care Pro vider Unavailable Shawanda Oliver MD Primary Care Provider Noah Gramajo Primary Care Provider [phone] Carmina Varela MD Primary Care Prov ider Db Martino MD Unavailable Unavailable Dario Ling Unavailable Unavailable Encounter Details Date Type Department Care Team Description 11/18/2013 Hospital Medical Records [address] [place] [address] Chinedu Lynn Social History Tobacco Use Types Packs/Day Years [...] on filedocumented in this encounter Care Teams Dinkey Engineer Relationship Specialty Start Date End Date Nancy Elliott DO PCP - General Internal Medicine 11/07/13 01/27/14 Radha Mccray PCP - General 01/28/14 06/25/20 Nancy Elliott DO PCP - General Internal Medicine 06/26/20 08/23/20 Shawanda Oliver MD PCP - General Internal Medicine 08/24/20 10/31/21 Noah Parks [address] [place] [address] PCP - General Internal Medicine 11/01/21 11/25/21 Carmina Varela MD [address] [place] [address] PCP - General Internal Medicine 11/26/21 Nancy Elliott, DO Internal Medicine 01/28/14 08/31/22 bD Martino MD [address] [place] [address] Specialist Cardiology 09/01/22 Dario Ling [address] [place] [address] Specialist Pulmonology 09/01/22 documented as of this encounter
--- OUTSIDE RECORDS SUMMARY | 2024-09-07 05:07 | XMS_ITS | Encounter Summary ---
Author Organization [facility] Address [address] [place] [address] Care Team Providers Care Back Tacker Name Role Phone Carmina Varela MD Primary Care Prov ider Db Martino MD Unavailable Unavailable Dario Ling Unavailable Unavailable Reason for Visit * Reason Comments E-prescribe Rx Request Encounter Details Date Type Department Care Team Description 09/21/2023 Refill Adult Medicine [address] [address] Rosa M Mcghee PA-C [address] [place] [address] E-prescribe Rx Request Social History Tobacco Use [...] uncontrolled documented in this encounter Care Teams Back Tacker Relationship Specialty Start Date End Date Carmina Varela MD [address] [place] [address] PCP - General Internal Medicine 11/26/21 Db Martino MD [address] [place] [address] Specialist Cardiology 09/01/22 Dario Ling [address] [place] [address] Specialist Pulmonology 09/01/22 documented as of this encounter
--- OUTSIDE RECORDS SUMMARY | 2024-09-07 05:07 | XMS_ITS | Encounter Summary ---
Author Organization [facility] Address [address] [place] [address] Care Team Providers Care Cotton Weigher Operator Name Role Phone Carmina Varela MD Primary Care Prov ider Db Martino MD Unavailable Unavailable Dario Ling Unavailable Unavailable Reason for Visit * Reason Onset Date Comments Error 03/30/2023 Encounter Details Date Type Department Care Team Description 03/30/2023 Telephone Adult Medicine [facility] [address] [place] [address] Carmina Varela MD [address] [place] [address] Error Social History Tobacco Use Types Packs/Day Years [...] encounter Miscellaneous Notes * Telephone Encounter - Mary Cornejo - 03/30/2023 1:00 PM EST documented in this encounter Plan of Treatment Not on file documented as of this encounter Visit Diagnoses Not on filedocumented in this encounter Care Teams Cotton Weigher Operator Relationship Specialty Start Date End Date Carmina Varela MD [address] [place] [address] PCP - General Internal Medicine 11/26/21 Db Martino MD [address] [place], [place] [phone] Specialist Cardiology 09/01/22 Dario Ling [address] [place] [address] Specialist Pulmonology 09/01/22 documented as of this encounter
--- OUTSIDE RECORDS SUMMARY | 2024-09-07 05:07 | XMS_ITS | Encounter Summary ---
Author Organization [facility] Address [address] [place] [address] Care Team Providers Care Window Repairer Name Role Phone Carmina Varela MD Primary Care Prov ider Db Martino MD Unavailable Unavailable Dario Ling Unavailable Unavailable Encounter Details Date Type Department Care Team Description 08/04/2023 Control Panel Tester Report Medical Records [address] [place] [address] Db Martino MD Social History Tobacco Use [...] on filedocumented in this encounter Care Teams Window Repairer Relationship Specialty Start Date End Date Carmina Varela MD [address] [phone] PCP - General Internal Medicine 11/26/21 Db Martino MD [address] [place], [place] [phone] Specialist Cardiology 09/01/22 Dario Ling [address] [place] [address] Specialist Pulmonology 09/01/22 documented as of this encounter
--- OUTSIDE RECORDS SUMMARY | 2024-09-07 05:07 | XMS_ITS | Encounter Summary ---
Author Organization [facility] Address [address] [place] [address] Care Team Providers Care Form Maker Plaster Name Role Phone Carmina Varela MD Primary Care Prov ider Db Martino MD Unavailable Unavailable Dario Ling Unavailable Unavailable Encounter Details Date Type Department Care Team Description 06/05/2023 Railroad Car Repair Supervisor Report Medical Records [address] [place] [address] Mariel Arellano FNP Social History Tobacco Use [...] on filedocumented in this encounter Care Teams Form Maker Plaster Relationship Specialty Start Date End Date Carmina Varela MD [address] [place] [address] PCP - General Internal Medicine 11/26/21 Db Martino MD [address] [place], [place] [phone] Specialist Cardiology 09/01/22 Dario Ling [address] [place] [address] Specialist Pulmonology 09/01/22 documented as of this encounter
--- OUTSIDE RECORDS SUMMARY | 2024-09-07 05:07 | XMS_ITS | Encounter Summary ---
Author Organization [facility] Address [address] [place] [address] Care Team Providers Care Body And Frame Technician Name Role Phone Nancy Elliott DO Unavailable Unavailable Shawanda Oliver MD Primary Care Provider Noah Gramajo Primary Care Provider [phone] Carmina Varela MD Primary Care Prov ider Db Martino MD Unavailable Unavailable Dario Ling Unavailable Unavailable Encounter Details Date Type Department Care Team Description 12/28/2020 Outdoor Power Equipment Mechanic Report Medical Records [address] [place] [address] Abstract, Provider Social History Tobacco Use Types [...] on filedocumented in this encounter Care Teams Body And Frame Technician Relationship Specialty Start Date End Date Shawanda Oliver MD PCP - General Internal Medicine 08/24/20 10/31/21 Noah Parks [address] [place] [address] PCP - General Internal Medicine 11/01/21 11/25/21 Carmina Varela MD [address] [place] [address] PCP - General Internal Medicine 11/26/21 Nancy Elliott, DO Internal Medicine 01/28/14 08/31/22 Db Martino MD [address] [place] [address] Specialist Cardiology 09/01/22 Dario Ling [address] [place] [address] Specialist Pulmonology 09/01/22 documented as of this encounter
--- OUTSIDE RECORDS SUMMARY | 2024-09-07 05:07 | XMS_ITS | Encounter Summary ---
Author Organization [facility] Address [address] [place] [address] Care Team Providers Care Public Speaking Instructor Name Role Phone Carmina Varela MD Primary Care Prov ider Db Martino MD Unavailable Unavailable Dario Ling Unavailable Unavailable Encounter Details Date Type Department Care Team Description 12/03/2023 Telephone Gastroenterology - [place] [address] [facility] [address] [place] [phone] Jericho Vargas DO [address] [facility] [address] [facility] [place] [place] [address] Social History Tobacco Use Types Packs/Day Years [...] on filedocumented in this encounter Care Teams Public Speaking Instructor Relationship Specialty Start Date End Date Carmina Varela MD [address] [place] [address] PCP - General Internal Medicine 11/26/21 Db Martino MD [address] [place] [address] Specialist Cardiology 09/01/22 Dario Ling [address] [place] [address] Specialist Pulmonology 09/01/22 documented as of this encounter
--- OUTSIDE RECORDS SUMMARY | 2024-09-07 05:07 | XMS_ITS | Encounter Summary ---
Author Organization [facility] Address [address] [place] [address] Care Team Providers Care Recreation Officer Name Role Phone Nancy Elliott DO Unavailable Unavailable Shawanda Oliver MD Primary Care Provider Noah Gramajo Primary Care Provider [phone] Carmina Varela MD Primary Care Prov ider Db Martino MD Unavailable Unavailable Dario Ling Unavailable Unavailable Encounter Details Date Type Department Care Team Description 12/18/2020 Grazing Examiner Report Medical Records [address] [place] [address] Db Martino MD Social History Tobacco Use [...] on filedocumented in this encounter Care Teams Recreation Officer Relationship Specialty Start Date End Date Shawanda Oliver MD PCP - General Internal Medicine 08/24/20 10/31/21 Noah Parks [address] [place] [address] PCP - General Internal Medicine 11/01/21 11/25/21 Carmina Varela MD [address] [place] [address] PCP - General Internal Medicine 11/26/21 Nancy Elliott, DO Internal Medicine 01/28/14 08/31/22 Db Martino MD [address] [place] [address] Specialist Cardiology 09/01/22 Dario Ling [address] [place] [address] Specialist Pulmonology 09/01/22 documented as of this encounter
--- OUTSIDE RECORDS SUMMARY | 2024-09-07 05:07 | XMS_ITS | Encounter Summary ---
Author Organization [facility] Address [address] [place] [address] Care Team Providers Care Butter Maker Name Role Phone Carmina Varela MD Primary Care Prov ider Db Martino MD Unavailable Unavailable Dario Ling Unavailable Unavailable Encounter Details Date Type Department Care Team Description 05/05/2023 Carbon Paper Machine Operator Report Medical Records [address] [place] [address] Db Martino MD Social History Tobacco Use [...] on filedocumented in this encounter Care Teams Butter Maker Relationship Specialty Start Date End Date Carmina Varlea MD [address] [phone] PCP - General Internal Medicine 11/26/21 Db Martino MD [address] [place], [place] [phone] Specialist Cardiology 09/01/22 Dario Ling [address] [place] [address] Specialist Pulmonology 09/01/22 documented as of this encounter
--- OUTSIDE RECORDS SUMMARY | 2024-09-07 05:07 | XMS_ITS | Encounter Summary ---
Author Organization [facility] Address [address] [place] [address] Care Team Providers Care Fruit Farmer Name Role Phone Carmina Varela MD Primary Care Prov ider Db Martino MD Unavailable Unavailable Dario Ling Unavailable Unavailable Encounter Details Date Type Department Care Team Description 03/30/2023 Orders Only Medical Records [address] [place] [address] [facility] Social History Tobacco Use Types [...] encounter Results * OUTSIDE PLAIN FILM (03/19/2023) [facility] RADIOLOGY documented in this encounter Visit Diagnoses Not on filedocumented in this encounter Care Teams Fruit Farmer Relationship Specialty Start Date End Date Carmina Varela MD [address] [place], [place] [phone] PCP - General Internal Medicine 11/26/21 Db Martino MD [address] [place] [address] Specialist Cardiology 09/01/22 Dario Ling [address] [place] [address] Specialist Pulmonology 09/01/22 documented as of this encounter
--- OUTSIDE RECORDS SUMMARY | 2024-09-07 05:08 | XMS_ITS | Encounter Summary ---
Author Organization [facility] Address [address] [place] [address] Care Team Providers Care Shingle Sawyer Name Role Phone Radha Mccray Primary Care Provider Unavailabl e Ariadne Bartono Nancy DO Unavailable Unavailable Mariamakowiak asacco, Nancy DO Primary Care Pro vider Unavailable Shawanda Oliver MD Primary Care Provider Noah Gramajo Primary Care Provider [phone] Carmina Varela MD Primary Care Prov ider Db Martino MD Unavailable Unavailable Dario Ling Unavailable Unavailable Encounter Details Date Type Department Care Team Description 07/24/2014 Release of Information Medical Records [address] [place] [address] Abstract, Provider Social History Tobacco Use Types [...] on filedocumented in this encounter Care Teams Shingle Sawyer Relationship Specialty Start Date End Date Radha Mccray PCP - General 01/28/14 06/25/20 Nancy Elliott DO PCP - General Internal Medicine 06/26/20 08/23/20 Shawanda Oliver MD PCP - General Internal Medicine 08/24/20 10/31/21 Noah Parks [address] [place] [address] PCP - General Internal Medicine 11/01/21 11/25/21 Carmina Varela MD [address] [place] [address] PCP - General Internal Medicine 11/26/21 Nancy Elliott, Internal Medicine 01/28/14 08/31/22 Db Martino MD [address] [place] [address] Specialist Cardiology 09/01/22 Dario Ling [address] [place] [address]28 Specialist Pulmonology 09/01/22 documented as of this encounter
--- OUTSIDE RECORDS SUMMARY | 2024-09-07 05:08 | XMS_ITS | Encounter Summary ---
Author Organization [facility] Address [address] [place] [address] Care Team Providers Care Outboard Motor Inspector Name Role Phone Radha Mccray Primary Care Provider Unavailabl e Krakowiak Colasacco, Nancy DO Unavailable Unavailable Krakowiak Colasacco, Nancy DO Primary Care Pro vider Unavailable Shawanda Oliver MD Primary Care Provider Noah Gramajo Primary Care Provider Carmina Varela MD Primary Care Prov ider Db Martino MD Unavailable Unavailable Dario Ling Unavailable Unavailable Encounter Details Date Type Department Care Team Description 02/15/2014 Transit Driver Report Medical Records [address] [place] [address] Db Martino MD Social History Tobacco Use [...] on filedocumented in this encounter Care Teams Outboard Motor Inspector Relationship Specialty Start Date End Date Radha Mccray PCP - General 01/28/14 06/25/20 Nancy Elliott DO PCP - General Internal Medicine 06/26/20 08/23/20 Shawanda Oliver MD PCP - General Internal Medicine 08/24/20 10/31/21 Noah Parks [address] [place] [address] PCP - General Internal Medicine 11/01/21 11/25/21 Carmina Varela MD [address] [place] [address] PCP - General Internal Medicine 11/26/21 Nancy Elliott DO Internal Medicine 01/28/14 08/31/22 Db Martino MD [address] [place] [address] Specialist Cardiology 09/01/22 Dario Ling [address] [place] [address] Specialist Pulmonology 09/01/22 documented as of this encounter
--- OUTSIDE RECORDS SUMMARY | 2024-09-07 05:08 | XMS_ITS | Encounter Summary ---
Author Organization [facility] Address [address] [place] [address] Care Team Providers Care Mechanical Design Technician Name Role Phone Ariadne Colbarrettcco, Nancy DO Primary Care Pro vider Unavailable Radha Mccray Primary Care Provider Unavailabl e Krakowiak Colasacco, Nancy DO Unavailable Unavailable Krakowiak Colasacco, Nancy DO Primary Care Pro vider Unavailable Shawanda Oliver MD Primary Care Provider Noah Gramajo Primary Care Provider [phone] Carmina Varela MD Primary Care Prov ider Db Martino MD Unavailable Unavailable Dario Ling Unavailable Unavailable Encounter Details Date Type Department Care Team Description 12/05/2013 Orders Only Adult Medicine [address] [address] Krakowifranklin ColNancy uribe DO Social History Tobacco Use Types Packs/Day [...] filedocumented in this encounter Care Teams Mechanical Design Technician Relationship Specialty Start Date End Date Nancy Elliott DO PCP - General Internal Medicine 11/07/13 01/27/14 Radha Mccray PCP - General 01/28/14 06/25/20 Nancy Elliott DO PCP - General Internal Medicine 06/26/20 08/23/20 Shawanda Oliver MD PCP - General Internal Medicine 08/24/20 10/31/21 Noah Parks [address] [place] [address] PCP - General Internal Medicine 11/01/21 11/25/21 Carmina Varela MD [address] [place] [address] PCP - General Internal Medicine 11/26/21 Nancy Elliott, DO Internal Medicine 01/28/14 08/31/22 Db Martino MD [address] [place] [address] 26969 Specialist Cardiology 09/01/22 Dario Ling [address] [place] [address] Specialist Pulmonology 09/01/22 documented as of this encounter
--- OUTSIDE RECORDS SUMMARY | 2024-09-07 05:08 | XMS_ITS | Encounter Summary ---
Author Organization [facility] Address [address] [place] [address] Care Team Providers Care Barn Hand Name Role Phone Krakowiak Colasacco, Nancy DO Primary Care Pro vider Unavailable Radha Mccray Primary Care Provider Unavailabl e Krakowiak Colasacco, Nancy DO Unavailable Unavailable Krakowiak Colasacco, Nancy DO Primary Care Pro vider Unavailable Shawanda Oliver MD Primary Care Provider Noah Gramajo Primary Care Provider [phone] Carmina Varela MD Primary Care Prov ider Db Martino MD Unavailable Unavailable Dario Ling Unavailable Unavailable Encounter Details Date Type Department Care Team Description 12/09/2013 Transfer Records Medical Records [address] [place] [address] Abstract, Provider Social History Tobacco Use Types [...] on filedocumented in this encounter Care Teams Barn Hand Relationship Specialty Start Date End Date KraNancy Oliveira DO PCP - General Internal Medicine 11/07/13 01/27/14 Radha Mccray PCP - General 01/28/14 06/25/20 Nancy Elliott DO PCP - General Internal Medicine 06/26/20 08/23/20 Shawanda Oliver MD PCP - General Internal Medicine 08/24/20 10/31/21 Noah Parks [address] [place] [address] PCP - General Internal Medicine 11/01/21 11/25/21 Carmina Varela MD [address] [place] [address] PCP - General Internal Medicine 11/26/21 Nancy Elliott, DO Internal Medicine 01/28/14 08/31/22 Db Martino MD [address] [place] [address] Specialist Cardiology 09/01/22 Dario Ling [address] [place] [address] Specialist Pulmonology 09/01/22 documented as of this encounter
--- OUTSIDE RECORDS SUMMARY | 2024-09-07 05:08 | XMS_ITS | Encounter Summary ---
Author Organization [facility] Address [address] [place] [address] Care Team Providers Care Data Solutions Architect Name Role Phone Radha Mccray Primary Care [...] TO GENERAL SURGERY Nancy Elliott DO [address] [place] [address] Gen Surg/[place] [address] [place] [address] Referral ID Status Reason Start Date Expiration Date V isits Requested Visits Authorized [id number] Authorized/B ooked 01/14/2016 04/26/2016 1 1 Encounter Details Date Type Department Care Team Description 01/14/2016 Orders Only Adult Medicine [address] [address] Nancy Elliott DO Social History Tobacco Use [...] on filedocumented in this encounter Care Teams Data Solutions Architect Relationship Specialty Start Date End Date Radha Mccray PCP - General 01/28/14 06/25/20 Nancy Elliott DO PCP - General Internal Medicine 06/26/20 08/23/20 Shawanda Oliver MD PCP - General Internal Medicine 08/24/20 10/31/21 Noah Parks [address] [place] [address] PCP - General Internal Medicine 11/01/21 11/25/21 Carmina Varela MD [address] [place] [address] PCP - General Internal Medicine 11/26/21 Nancy Elliott DO Internal Medicine 01/28/14 08/31/22 Db Martino MD [address] [place] [address]82 Specialist Cardiology 09/01/22 Dario Ling [address] [place] [address]20 Specialist Pulmonology 09/01/22 documented as of this encounter
--- OUTSIDE RECORDS SUMMARY | 2024-09-07 05:08 | XMS_ITS | Encounter Summary ---
Author Organization [facility] Address [address] [place] [address] Care Team Providers Care Tire Recapping Machine Operator Name Role Phone Nancy Elliott DO Unavailable Unavailable Shawanda Oliver MD Primary Care Provider Noah Gramajo Primary Care Provider [phone] Carmina Varela MD Primary Care Prov ider Db Martino MD Unavailable Unavailable Dario Ling Unavailable Unavailable Reason for Visit * Reason Comments E-prescribe Rx Request Encounter Details Date Type Department Care Team Description 08/25/2020 Refill Adult Medicine [address] [address] Nancy Elliott DO E-prescribe Rx Request Social [...] have Coronavirus / COVID-19? No / Unsure 08/15/2020 10:08 AM EDT documented as of this encounter Miscellaneous Notes * Telephone Encounter - Joellen Cervantes M.A. - 08/27/2020 12:39 PM EDT Last office visit 04/03/20 Next office visit 09/04/20 with new pcp celeste rojas filled on 06/28/20 with 2 refills, more refills at visit Lab Results Component Value Date CHOL 133 04/11/2020 LDL 58 04/11/2020 HDL 56 04/11/2020 TRIG 99 04/11/2020 SGOT 16 06/29/2019 SGPT 24 06/29/2019 * Telephone Encounter - Kimberlee Trujillo - 08/27/2020 10:32 AM EDT Patient would like script to be: E-PRESCRIBED/FAXED TO PHARMACY WHEN WAS THE PATIENT'S LAST APPOINTMENT IN ADULT MEDICINE? 08/15/20 WHEN WAS THE LAST TIME THE PATIENT SAW THEIR PCP? Has not seen Does patient have an upcoming appointment? Yes 09/04/20 (THE MEDICATION REQUESTED IS ON THE MED [...] Patients current insurance carrier is: Payor: [facility] / Plan: O $0 [facility] [id number] / Product Type: HMO [id number] documented in this encounter Plan of Treatment [...] leg documented in this encounter Care Teams Tire Recapping Machine Operator Relationship Specialty Start Date End Date Shawanda Oliver MD PCP - General Internal Medicine 08/24/20 10/31/21 Noah Parks [address] [place] [address] PCP - General Internal Medicine 11/01/21 11/25/21 Carmina Varela MD [address] [place] [address] PCP - General Internal Medicine 11/26/21 Nancy Elliott, DO Internal Medicine 01/28/14 08/31/22 Db Martino MD [address] [place] [address]229 Specialist Cardiology 09/01/22 Dario Ling [address] [place] [address]382 Specialist Pulmonology 09/01/22 documented as of this encounter
--- OUTSIDE RECORDS SUMMARY | 2024-09-07 05:08 | XMS_ITS | Encounter Summary ---
Author Organization [facility] Address [address] [place] [address] Care Team Providers Care Making Machine Operator Name Role Phone Krakowifranklin Colasacco, Nancy DO Primary Care Pro vider Unavailable Radha Mccray Primary Care Provider Unavailabl e Krakowiak Colasacco, Nancy DO Unavailable Unavailable Krakowiak Colasacco, Nancy DO Primary Care Pro vider Unavailable Shawanda Oliver MD Primary Care Provider Noah Gramajo Primary Care Provider [phone] Carmina Vareal MD Primary Care Prov ider Db Martino MD Unavailable Unavailable Dario Ling Unavailable Unavailable Encounter Details Date Type Department Care Team Description 11/28/2013 Release of Information Medical Records [address] [place] [address] Abstract, Provider Social History Tobacco Use Types [...] on filedocumented in this encounter Care Teams Making Machine Operator Relationship Specialty Start Date End Date Nancy Elliott DO PCP - General Internal Medicine 11/07/13 01/27/14 Radha Mccray PCP - General 01/28/14 06/25/20 Nancy Elliott DO PCP - General Internal Medicine 06/26/20 08/23/20 Shawanda Oliver MD PCP - General Internal Medicine 08/24/20 10/31/21 Noah Parks [address] [place] [address] PCP - General Internal Medicine 11/01/21 11/25/21 Carmina Varela MD [address] [place] [address] PCP - General Internal Medicine 11/26/21 Nancy Elliott, DO Internal Medicine 01/28/14 08/31/22 Db Martino MD [address] [place] [address] 18336 Specialist Cardiology 09/01/22 Dario Ling [address] [place], [place] [phone] Specialist Pulmonology 09/01/22 documented as of this encounter
--- OUTSIDE RECORDS SUMMARY | 2024-09-07 05:08 | XMS_ITS | Encounter Summary ---
Author Organization [facility] Address [address] [place] [address] Care Team Providers Care Anesthesiology Physician Assistant Name Role Phone Radha Mccray Primary Care Provider Unavailabl e Ariadne Colbarbarao Nancy DO Unavailable Unavailable Mariamakowiak Colasacco Nancy DO Primary Care Pro vider Unavailable Shawanda Oliver MD Primary Care Provider Noah Gramajo Primary Care Provider [phone] Carmina Varela MD Primary Care Prov ider Db Martino MD Unavailable Unavailable Dario Ling Unavailable Unavailable Encounter Details Date Type Department Care Team Description 04/17/2016 Transfer Records Medical Records [address] [place], [place] [address] [place] [address] Social History Tobacco Use Types Packs/Day Years [...] on filedocumented in this encounter Care Teams Anesthesiology Physician Assistant Relationship Specialty Start Date End Date Radha Mccray PCP - General 01/28/14 06/25/20 Nancy Elliott DO PCP - General Internal Medicine 06/26/20 08/23/20 Shawanda Oliver MD PCP - General Internal Medicine 08/24/20 10/31/21 Noah Parks [address] [place] [address] PCP - General Internal Medicine 11/01/21 11/25/21 Carmina Varela MD [address] [place] [address] PCP - General Internal Medicine 11/26/21 Nancy Elliott, DO Internal Medicine 01/28/14 08/31/22 Db Martino MD [address] [place] [address] 57665 Specialist Cardiology 09/01/22 Dario Ling [address] [place] [address] Specialist Pulmonology 09/01/22 documented as of this encounter
--- OUTSIDE RECORDS SUMMARY | 2024-09-07 05:08 | XMS_ITS | Encounter Summary ---
Author Organization [facility] Address [address] [place] [address] Care Team Providers Care Memory Care Program Resident Name Role Phone Krakowiak Colasacco, Nancy DO Primary Care Pro vider Unavailable Radha Mccray Primary Care Provider Unavailabl e Krakowiak Colasacco, Nancy DO Unavailable Unavailable Krakowiak Colasacco, Nancy DO Primary Care Pro vider Unavailable Shawanda Oliver MD Primary Care Provider Noah Gramajo Primary Care Provider [phone] Carmina Varela MD Primary Care Prov ider Db Martino MD Unavailable Unavailable Dario Ling Unavailable Unavailable Encounter Details Date Type Department Care Team Description 01/01/2014 Hospital Medical Records [address] [place] [address] Smita Russell Np Social History Tobacco Use [...] on filedocumented in this encounter Care Teams Memory Care Program Resident Relationship Specialty Start Date End Date Nancy Elliott DO PCP - General Internal Medicine 11/07/13 01/27/14 Radha Mccray PCP - General 01/28/14 06/25/20 Nancy Elliott DO PCP - General Internal Medicine 06/26/20 08/23/20 Shawanda Oliver MD PCP - General Internal Medicine 08/24/20 10/31/21 Noah Parks [address] [place] [address] PCP - General Internal Medicine 11/01/21 11/25/21 Carmina Varela MD [address] [place] [address] PCP - General Internal Medicine 11/26/21 Nancy Elliott, DO Internal Medicine 01/28/14 08/31/22 Db Martino MD [address] [place] [address]344 Specialist Cardiology 09/01/22 Dario Ling [address] [place] [address] 85696 Specialist Pulmonology 09/01/22 documented as of this encounter
--- OUTSIDE RECORDS SUMMARY | 2024-09-07 05:08 | XMS_ITS | Encounter Summary ---
Author Organization [facility] Address [address] [place] [address] Care Team Providers Care Ground Products Director Name Role Phone Radha Mccray Primary Care Provider Unavailabl e Mariamakoruslan Colasacco Nancy DO Unavailable Unavailable Krakowiak Colasacco, Nancy DO Primary Care Pro vider Unavailable Shawanda Oliver MD Primary Care Provider Noah Gramajo Primary Care Provider [phone] Carmina Varela MD Primary Care Prov ider Db Martino MD Unavailable Unavailable Dario Ling Unavailable Unavailable Encounter Details Date Type Department Care Team Description 05/24/2015 Grape Cutter Report Medical Records [address] [place] [address] Db Martino MD Social History Tobacco Use [...] on filedocumented in this encounter Care Teams Ground Products Director Relationship Specialty Start Date End Date Radha Mccray PCP - General 01/28/14 06/25/20 Nancy Elliott DO PCP - General Internal Medicine 06/26/20 08/23/20 Shawanda Oliver MD PCP - General Internal Medicine 08/24/20 10/31/21 Noah Parks [address] [place] [address] PCP - General Internal Medicine 11/01/21 11/25/21 Carmina Varela MD [address] [place] [address]255 PCP - General Internal Medicine 11/26/21 Nancy Elliott, Internal Medicine 01/28/14 08/31/22 Db Martino MD [address] [place] [address] 38614 Specialist Cardiology 09/01/22 Dario Ling [address] [place] [address]36 Specialist Pulmonology 09/01/22 documented as of this encounter
--- OUTSIDE RECORDS SUMMARY | 2024-09-07 05:08 | XMS_ITS | Encounter Summary ---
Author Organization [facility] Address [address] [place] [address] Care Team Providers Care Chimney Sweeper Name Role Phone Radha Mccray Primary Care Provider Unavailabl e Mariamakoruslan Colbarbarao Nancy DO Unavailable Unavailable Krakowiak Colasacco Nancy DO Primary Care Pro vider Unavailable Shawanda Oliver MD Primary Care Provider Noah Gramajo Primary Care Provider [phone] Carmina Varela MD Primary Care Prov ider Db Martino MD Unavailable Unavailable Dario Ling Unavailable Unavailable Encounter Details Date Type Department Care Team Description 03/25/2015 Hospital Medical Records [address] [place] [address] Heath Verma Social History Tobacco Use Types [...] on filedocumented in this encounter Care Teams Chimney Sweeper Relationship Specialty Start Date End Date Radha Mccray PCP - General 01/28/14 06/25/20 Nancy Elliott DO PCP - General Internal Medicine 06/26/20 08/23/20 Shawanda Oliver MD PCP - General Internal Medicine 08/24/20 10/31/21 Noah Parks [address] [place] [address] PCP - General Internal Medicine 11/01/21 11/25/21 Carmina Varela MD [address] [place] [address] PCP - General Internal Medicine 11/26/21 Nancy Elliott, DO Internal Medicine 01/28/14 08/31/22 Db Martino MD [address] [place] [address]65 Specialist Cardiology 09/01/22 Dario Ling [address] [place] [address] Specialist Pulmonology 09/01/22 documented as of this encounter
--- OUTSIDE RECORDS SUMMARY | 2024-09-07 05:08 | XMS_ITS | Encounter Summary ---
Author Organization [facility] Address [address] [place] [address] Care Team Providers Care Gas Welder Name Role Phone Radha Mccray Primary Care Provider Unavailabl e Ariadne Colbarrettcco, Nancy DO Unavailable Unavailable Mariamakoruslan Kirkpatrickasacco Nancy DO Primary Care Pro vider Unavailable Shawanda Oliver MD Primary Care Provider Noah Gramajo Primary Care Provider [phone] Carmina Varela MD Primary Care Prov ider Db Martino MD Unavailable Unavailable Dario Ling Unavailable Unavailable Reason for Visit * Reason Onset Date Comments medication problems 04/28/2014 Encounter Details Date Type Department Care Team Description 04/28/2014 Telephone Adult Medicine [address] [address] Nancy Elliott DO medication problems Social History [...] because it was not meant to remy snf med, * Telephone Encounter - Nancy Valdivia DO - 04/29/2014 11:49 AM EST Not refilled, not a intermediate designer med, given until celexa started working * Telephone Encounter - Mari Jara - 04/28/2014 4:04 PM EST Who is calling? The patient Name of the medication lorazepam (ATIVAN) 0.5 MG tablet What is the specific problem or interaction? Patient states that pharmacy never got the fax. Pleaserefax to [facility]. If the patient is having a problem with taking the med - how long has the problem been going on? N/A documented in this encounter Plan of Treatment Not on file documented as of this encounter Visit Diagnoses Not on filedocumented in this encounter Care Teams Gas Welder Relationship Specialty Start Date End Date Radha Mccray PCP - General 01/28/14 06/25/20 Nancy Elliott DO PCP - General Internal Medicine 06/26/20 08/23/20 Shawanda Oliver MD PCP - General Internal Medicine 08/24/20 10/31/21 Noah Parks [address] [place] [address] PCP - General Internal Medicine 11/01/21 11/25/21 Carmina Varela MD [address] [place] [address] PCP - General Internal Medicine 11/26/21 Nancy Elliott, DO Internal Medicine 01/28/14 08/31/22 Db Martino MD [address] [place] [address] Specialist Cardiology 09/01/22 Dario Ling [address] [place] [address] Specialist Pulmonology 09/01/22 documented as of this encounter
--- OUTSIDE RECORDS SUMMARY | 2024-09-07 05:08 | XMS_ITS | Encounter Summary ---
Author Organization [facility] Address [address] [place] [address] Care Team Providers Care Decorative Engraver Apprentice Name Role Phone Radha Mccray Primary Care Provider Unavailabl e Ariadne Colbarbarao Nancy DO Unavailable Unavailable Krakowiak Colasacco Nancy DO Primary Care Pro vider Unavailable Shawanda Oliver MD Primary Care Provider Noah Gramajo Primary Care Provider [phone] Carmina Varela MD Primary Care Prov ider Db Martino MD Unavailable Unavailable Dario Ling Unavailable Unavailable Encounter Details Date Type Department Care Team Description 03/23/2016 Hospital Medical Records [address] [place] [address] [facility] Social History Tobacco Use Types Packs/Day [...] on filedocumented in this encounter Care Teams Decorative Engraver Apprentice Relationship Specialty Start Date End Date Radha Mccray PCP - General 01/28/14 06/25/20 Nancy Elliott DO PCP - General Internal Medicine 06/26/20 08/23/20 Shawanda Oliver MD PCP - General Internal Medicine 08/24/20 10/31/21 Noah Parks [address] [place] [address] PCP - General Internal Medicine 11/01/21 11/25/21 Carmina Varela MD [address] [place] [address]62 PCP - General Internal Medicine 11/26/21 Nancy Elliott, Internal Medicine 01/28/14 08/31/22 Db Martino MD [address] [place] [address] 42065 Specialist Cardiology 09/01/22 Dario Ling [address] [place] [address] Specialist Pulmonology 09/01/22 documented as of this encounter
--- OUTSIDE RECORDS SUMMARY | 2024-09-07 05:08 | XMS_ITS | Encounter Summary ---
Author Organization [facility] Address [address] [place] [address] Care Team Providers Care Junior Estimator Name Role Phone Nancy Elliott DO Unavailable Unavailable Shawanda Oliver MD Primary Care Provider Noah Gramajo Primary Care Provider [phone] Carmina Varela MD Primary Care Prov ider Db Martino MD Unavailable Unavailable Dario Ling Unavailable Unavailable Encounter Details Date Type Department Care Team Description 01/03/2021 Tile Machine Operator Report Medical Records [address] [place] [address] Abstract, Provider Social History Tobacco Use Types [...] on filedocumented in this encounter Care Teams Junior Estimator Relationship Specialty Start Date End Date Shawanda Oliver MD PCP - General Internal Medicine 08/24/20 10/31/21 Noah Parks [address] [place] [address] PCP - General Internal Medicine 11/01/21 11/25/21 Carmina Varela MD [address] [place] [address] 25567 PCP - General Internal Medicine 11/26/21 Nancy Elliott, DO Internal Medicine 01/28/14 08/31/22 Db Martino MD [address] [place] [address] 45384 Specialist Cardiology 09/01/22 Dario Ling [address] [place] [address] Specialist Pulmonology 09/01/22 documented as of this encounter
--- OUTSIDE RECORDS SUMMARY | 2024-09-07 05:08 | XMS_ITS | Encounter Summary ---
Author Organization [facility] Address [address] [place] [address] Care Team Providers Care Press Set Up Person Name Role Phone Radha Mccray Primary Care Provider Unavailabl e Ariadne Bartono Nancy DO Unavailable Unavailable Mariamakoraviak Chuckcco Nancy DO Primary Care Pro vider Unavailable Shawanda Oliver MD Primary Care Provider Noah Gramajo Primary Care Provider [phone] Carmina Varela MD Primary Care Prov ider Db Martino MD Unavailable Unavailable Dario Ling Unavailable Unavailable Encounter Details Date Type Department Care Team Description 03/02/2015 Transfer Records Medical Records [address] [place], [place] [id number] [place] [address] Social History Tobacco Use Types Packs/Day Years [...] filedocumented in this encounter Care Teams Press Set Up Person Relationship Specialty Start Date End Date Radha Mccray PCP - General 01/28/14 06/25/20 Nancy Elliott DO PCP - General Internal Medicine 06/26/20 08/23/20 Shawanda Oliver MD PCP - General Internal Medicine 08/24/20 10/31/21 Noah Parks [address] [place] [address] 7[address] PCP - General Internal Medicine 11/01/21 11/25/21 Carmina Varela MD [address] [place] [address] PCP - General Internal Medicine 11/26/21 Nancy Elliott, DO Internal Medicine 01/28/14 08/31/22 Db Martino MD [address] [place] [address] 15695 Specialist Cardiology 09/01/22 Dario Ling [address] [place] [address] 16881 Specialist Pulmonology 09/01/22 documented as of this encounter
--- OUTSIDE RECORDS SUMMARY | 2024-09-07 05:08 | XMS_ITS | Encounter Summary ---
Author Organization [facility] Address [address] [place] [address] Care Team Providers Care Cement Finisher Apprentice Name Role Phone Radha Mccray Primary Care Provider Unavailabl e Nancy Elliott DO Unavailable Unavailable Stephon Elliottabela DO Primary Care Pro vider Unavailable Shawanda Oliver MD Primary Care Provider Noah Gramajo Primary Care Provider [phone] Carmina Varela MD Primary Care Prov ider Db Martino MD Unavailable Unavailable Dario Ling Unavailable Unavailable Reason for Visit * Reason Onset Date Comments Provider Call Back 09/25/2015 Encounter Details Date Type Department Care Team Description 09/25/2015 Telephone Adult Medicine [address] [address] Nancy Elliott DO Provider Call Back Social [...] on filedocumented in this encounter Care Teams Cement Finisher Apprentice Relationship Specialty Start Date End Date Radha Mccray PCP - General 01/28/14 06/25/20 Nancy Elliott DO PCP - General Internal Medicine 06/26/20 08/23/20 Shawanda Oliver MD PCP - General Internal Medicine 08/24/20 10/31/21 Noah Parks [address] [place] [address] PCP - General Internal Medicine 11/01/21 11/25/21 Carmina Varela MD [address] [place] [address] PCP - General Internal Medicine 11/26/21 Nancy Elliott, DO Internal Medicine 01/28/14 08/31/22 Db Martino MD [address] [place] [address] Specialist Cardiology 09/01/22 Dario Ling [address] [place] [address] 13129 Specialist Pulmonology 09/01/22 documented as of this encounter
--- OUTSIDE RECORDS SUMMARY | 2024-09-07 05:08 | XMS_ITS | Encounter Summary ---
Author Organization [facility] Address [address] [place] [address] Care Team Providers Care Pediatric Physical Therapist Name Role Phone Radha Mccray Primary Care Provider Unavailabl e Mariamakoruslan Colasacco Nancy DO Unavailable Unavailable Krakowiak Colasacco, Nancy DO Primary Care Pro vider Unavailable Shawanda Oliver MD Primary Care Provider Noah Gramajo Primary Care Provider Carmina Varela MD Primary Care Prov ider Db Martino MD Unavailable Unavailable Dario Ling Unavailable Unavailable Encounter Details Date Type Department Care Team Description 05/25/2018 Qlikview Developer Report Medical Records [address] [place] [address] Abstract, Provider Social History Tobacco Use Types [...] on filedocumented in this encounter Care Teams Pediatric Physical Therapist Relationship Specialty Start Date End Date Radha Mccray PCP - General 01/28/14 06/25/20 Nancy Elliott DO PCP - General Internal Medicine 06/26/20 08/23/20 Shawanda Oliver MD PCP - General Internal Medicine 08/24/20 10/31/21 Noah Parks [address] [place] [address] PCP - General Internal Medicine 11/01/21 11/25/21 Carmina Varela MD [address] [place] [address] PCP - General Internal Medicine 11/26/21 Nancy Elliott, Internal Medicine 01/28/14 08/31/22 Db Martino MD [address] [place] [address]8795 Specialist Cardiology 09/01/22 Dario Ling [address] [place] [address]134 Specialist Pulmonology 09/01/22 documented as of this encounter
--- OUTSIDE RECORDS SUMMARY | 2024-09-07 05:08 | XMS_ITS | Encounter Summary ---
Author Organization [facility] Address [address] [place] [address] Care Team Providers Care Deadener Name Role Phone Krakowiak Colasacco, Nancy DO Primary Care Pro vider Unavailable Radha Mccray Primary Care Provider Unavailabl e Krak[place]iak Colasacco, Nancy DO Unavailable Unavailable [place] Colasacco, Nancy DO Primary Care Pro vider Unavailable Shawanda Oliver MD Primary Care Provider Noah Gramajo Primary Care Provider [phone] Carmina Varela MD Primary Care Prov ider Db Martino MD Unavailable Unavailable Dario Ling Unavailable Unavailable Encounter Details Date Type Department Care Team Description 01/03/2014 Home Health Certification Medical Records [address] [place] [address] [place] Social History Tobacco Use Types Packs/Day [...] on filedocumented in this encounter Care Teams Deadener Relationship Specialty Start Date End Date Krakowifranklin Colasacco, Nancy, DO PCP - General Internal Medicine 11/07/13 01/27/14 Radha Mccray PCP - General 01/28/14 06/25/20 Nancy Elliott, PCP - General Internal Medicine 06/26/20 08/23/20 Shawanda Oliver MD PCP - General Internal Medicine 08/24/20 10/31/21 Noah Parks [address] [place] [address] PCP - General Internal Medicine 11/01/21 11/25/21 Carmina Varela MD [address] [place] [address] 527[address] PCP - General Internal Medicine 11/26/21 Nancy Elliott, DO Internal Medicine 01/28/14 08/31/22 Db Martino MD [address] [place] [address] 55216 Specialist Cardiology 09/01/22 Dario Ling [address] [place] [address] 17901 Specialist Pulmonology 09/01/22 documented as of this encounter
--- OUTSIDE RECORDS SUMMARY | 2024-09-07 05:08 | XMS_ITS | Encounter Summary ---
Author Organization [facility] Address [address] [place] [address] Care Team Providers Care Heater Mechanic Name Role Phone Nancy Elliott DO Unavailable Unavailable Shawanda Oliver MD Primary Care Provider Noah Gramajo Primary Care Provider [phone] Carmina Varela MD Primary Care Prov ider Db Martino MD Unavailable Unavailable Dario Ling Unavailable Unavailable Encounter Details Date Type Department Care Team Description 11/14/2020 Hospital Medical Records [address] [place] [address] Moo Zepeda MD Social History Tobacco Use [...] on filedocumented in this encounter Care Teams Heater Mechanic Relationship Specialty Start Date End Date Shawanda Oliver MD PCP - General Internal Medicine 08/24/20 10/31/21 Noah Parks [address] [place] [address] PCP - General Internal Medicine 11/01/21 11/25/21 Carmina Varela MD [address] [place] [address] PCP - General Internal Medicine 11/26/21 Nancy Elliott, DO Internal Medicine 01/28/14 08/31/22 Db Martino MD [address] [place] [address] Specialist Cardiology 09/01/22 Dario Ling [address] [place] [address] Specialist Pulmonology 09/01/22 documented as of this encounter
--- OUTSIDE RECORDS SUMMARY | 2024-09-07 05:08 | XMS_ITS | Encounter Summary ---
Author Organization [facility] Address [address] [place] [address] Care Team Providers Care Donor Relations Associate Name Role Phone Nancy Elliott DO Unavailable Unavailable Shawanda Oliver MD Primary Care Provider Noah Gramajo Primary Care Provider [phone] Carmina Varela MD Primary Care Prov ider Db Martino MD Unavailable Unavailable Dario Ling Unavailable Unavailable Encounter Details Date Type Department Care Team Description 11/09/2020 Presiding Judge Report Medical Records [address] [place] [address] Abstract, Provider Social History Tobacco Use Types [...] on filedocumented in this encounter Care Teams Donor Relations Associate Relationship Specialty Start Date End Date Shawanda Oliver MD PCP - General Internal Medicine 08/24/20 10/31/21 Noah Parks [address] [place] [address] 96[address] PCP - General Internal Medicine 11/01/21 11/25/21 Carmina Varela MD [address] [place] [address] PCP - General Internal Medicine 11/26/21 Nancy Elliott, DO Internal Medicine 01/28/14 08/31/22 Db Martino MD [address] [place] [address] 75990 Specialist Cardiology 09/01/22 Dario Ling [address] [place] [address] Specialist Pulmonology 09/01/22 documented as of this encounter
--- OUTSIDE RECORDS SUMMARY | 2024-09-07 05:08 | XMS_ITS | Encounter Summary ---
Author Organization [facility] Address [address] [place] [address] Care Team Providers Care Tobacco Primer Machine Operator Name Role Phone Radha Mccray Primary Care Provider Unavailabl e Mariamakoruslan Colasacco Nancy DO Unavailable Unavailable [place]rakowi[place] Colasacco, Nancy DO Primary Care Pro vider Unavailable Shawanda Oliver MD Primary Care Provider Noah Gramajo Primary Care Provider [phone] Carmina Varela MD Primary Care Prov ider Db Martino MD Unavailable Unavailable Dario Ling Unavailable Unavailable Encounter Details Date Type Department Care Team Description 12/01/2016 Hospital Medical Records [address] [place] [address] Kobe Duggan Social History Tobacco Use Types [...] filedocumented in this encounter Care Teams Tobacco Primer Machine Operator Relationship Specialty Start Date End Date Radha Mccray PCP - General 01/28/14 06/25/20 Nancy Elliott DO PCP - General Internal Medicine 06/26/20 08/23/20 Shawanda Oliver MD PCP - General Internal Medicine 08/24/20 10/31/21 Noah Parks [address] [place] [address] PCP - General Internal Medicine 11/01/21 11/25/21 Carmina Varela MD [address] [place] [address] 13270 PCP - General Internal Medicine 11/26/21 Nancy Elliott, DO Internal Medicine 01/28/14 08/31/22 Db Martino MD [address] [place] [address] 61734 Specialist Cardiology 09/01/22 Dario Ling [address] [place] [address] Specialist Pulmonology 09/01/22 documented as of this encounter
--- OUTSIDE RECORDS SUMMARY | 2024-09-07 05:08 | XMS_ITS | Encounter Summary ---
Author Organization [facility] Address [address] [place] [address] Care Team Providers Care Pediatric Neurologist Name Role Phone JarenbeatricedeanConnordavedexter Primary Care Provider Unavailabl e Nancy Elliott DO Unavailable Unavailable Stephon Elliottabela DO Primary Care Pro vider Unavailable Shawanda Oliver MD Primary Care Provider Noah Gramajo Primary Care Provider [phone] Carmina Varela MD Primary Care Prov ider Db Martino MD Unavailable Unavailable Dario Ling Unavailable Unavailable Reason for Visit * Reason Comments E-prescribe Rx Request Encounter Details Date Type Department Care Team Description 05/30/2018 Refill Adult Medicine [address] [address] Nancy Elliott DO E-prescribe Rx Request Social [...] THE PATIENT'S LAST APPOINTMENT IN ADULT MEDICINE? [id number] WHEN WAS THE LAST TIME THE PATIENT SAW THEIR PCP? Same as above Does patient have an upcoming appointment? No-unable to reach left [facility] to call for appointment due to [...] N/A Patients current insurance carrier is: Payor: [employer] / Plan: [facility] [employer] / Product Type: MEDICAID RISK documented [...] chronicity documented in this encounter Care Teams Pediatric Neurologist Relationship Specialty Start Date End Date Radha Mccray PCP - General 01/28/14 06/25/20 Nancy Elliott DO PCP - General Internal Medicine 06/26/20 08/23/20 Shawanda Oliver MD PCP - General Internal Medicine 08/24/20 10/31/21 Noah Parks [address] [place] [address] PCP - General Internal Medicine 11/01/21 11/25/21 Carmina Varela MD [address] [place] [address] PCP - General Internal Medicine 11/26/21 Nancy Elliott DO Internal Medicine 01/28/14 08/31/22 Db Martino MD [address] [place] [address]18 Specialist Cardiology 09/01/22 Dario Ling [address] [place] [address]907 Specialist Pulmonology 09/01/22 documented as of this encounter
--- OUTSIDE RECORDS SUMMARY | 2024-09-07 05:08 | XMS_ITS | Encounter Summary ---
Author Organization [facility] Address [address] [place] [address] Care Team Providers Care Net Manager Name Role Phone Radha Mccray Primary Care Provider Unavailabl e Stephon Elliottabela DO Unavailable Unavailable Mariamakoraviak Micko Nancy DO Primary Care Pro vider Unavailable Shawanda Oliver MD Primary Care Provider Noah Gramajo Primary Care Provider [phone] Carmina Varela MD Primary Care Prov ider Db Martino MD Unavailable Unavailable Dario Ling Unavailable Unavailable Encounter Details Date Type Department Care Team Description 04/02/2015 Hospital Medical Records [address] [place] [address] Social History Tobacco Use Types Packs/Day Years [...] on filedocumented in this encounter Care Teams Net Manager Relationship Specialty Start Date End Date Radha Mccray PCP - General 01/28/14 06/25/20 Nancy Elliott DO PCP - General Internal Medicine 06/26/20 08/23/20 Shawanda Oliver MD PCP - General Internal Medicine 08/24/20 10/31/21 Noah Parks [address] [place] [address] PCP - General Internal Medicine 11/01/21 11/25/21 Carmina Varela MD [address] [place] [address] PCP - General Internal Medicine 11/26/21 Nancy Elliott, Internal Medicine 01/28/14 08/31/22 Db Martino MD [address] [place] [address] 90892 Specialist Cardiology 09/01/22 Dario Ling [address] [place] [address]79 Specialist Pulmonology 09/01/22 documented as of this encounter
--- OUTSIDE RECORDS SUMMARY | 2024-09-07 05:08 | XMS_ITS | Encounter Summary ---
Author Organization [facility] Address [address] [place] [address] Care Team Providers Care Pharmaceutical Laboratory Technician Name Role Phone Radha Mccray Primary Care Provider Unavailabl e Krakoruslan Colasacco, Nancy DO Unavailable Unavailable Krakowiak Colasacco, Nancy DO Primary Care Pro vider Unavailable Shawanda Oliver MD Primary Care Provider Noah Gramajo Primary Care Provider [phone] Carmina Varela MD Primary Care Prov ider Db Martino MD Unavailable Unavailable Dario Ling Unavailable Unavailable Encounter Details Date Type Department Care Team Description 12/14/2014 Preprint Analyst Report Medical Records [address] [place] [address] Db Martino MD Social History Tobacco Use [...] on filedocumented in this encounter Care Teams Pharmaceutical Laboratory Technician Relationship Specialty Start Date End Date Radha Mccray PCP - General 01/28/14 06/25/20 Nancy Elliott DO PCP - General Internal Medicine 06/26/20 08/23/20 Shawanda Oliver MD PCP - General Internal Medicine 08/24/20 10/31/21 Noah Parks [address] [place] [address] PCP - General Internal Medicine 11/01/21 11/25/21 Carmina Varela MD [address] [place] [address]329 PCP - General Internal Medicine 11/26/21 Nancy Elliott, Internal Medicine 01/28/14 08/31/22 Db Martino MD [address] [place] [address] 15275 Specialist Cardiology 09/01/22 Dario Ling [address] [place] [address]11 Specialist Pulmonology 09/01/22 documented as of this encounter
--- OUTSIDE RECORDS SUMMARY | 2024-09-07 05:08 | XMS_ITS | Encounter Summary ---
Author Organization [facility] Address [address] [place] [address] Care Team Providers Care Financial Planning Advisor Name Role Phone Radha Mccray Primary Care Provider Unavailabl e Krakoruslan Colasacco Nancy DO Unavailable Unavailable Krakowiak Colasacco, Nancy DO Primary Care Pro vider Unavailable Shawanda Oliver MD Primary Care Provider Noah Gramajo Primary Care Provider [phone] Carmina Varela MD Primary Care Prov ider Db Martino MD Unavailable Unavailable Dario Ling Unavailable Unavailable Encounter Details Date Type Department Care Team Description 03/28/2016 Taxation Accountant Report Medical Records [address] [place] [address] Db Martino MD Social History Tobacco Use [...] filedocumented in this encounter Care Teams Financial Planning Advisor Relationship Specialty Start Date End Date Radha Mccray PCP - General 01/28/14 06/25/20 Nancy Ellitot DO PCP - General Internal Medicine 06/26/20 08/23/20 Shawanda Oliver MD PCP - General Internal Medicine 08/24/20 10/31/21 Noah Parks [address] [place] [address]16 PCP - General Internal Medicine 11/01/21 11/25/21 Carmina Varela MD [address] [place] [address]666 PCP - General Internal Medicine 11/26/21 Nancy Elliott, Internal Medicine 01/28/14 08/31/22 Db Martino MD [address] [place] [address] 83080 Specialist Cardiology 09/01/22 Dario Ling [address] [place] [address] 68365 Specialist Pulmonology 09/01/22 documented as of this encounter
--- OUTSIDE RECORDS SUMMARY | 2024-09-07 05:08 | XMS_ITS | Encounter Summary ---
Author Organization [facility] Address [address] [place] [address] Care Team Providers Care Nail Specialist Name Role Phone Radha Mccray Primary Care Provider Unavailabl e Ariadne Colbarbarao Nancy DO Unavailable Unavailable Krakowiak Colasacco Nancy DO Primary Care Pro vider Unavailable Shawanda Oliver MD Primary Care Provider Noah Gramajo Primary Care Provider [phone] Carmina Varela MD Primary Care Prov ider Db Martino MD Unavailable Unavailable Dario Ling Unavailable Unavailable Encounter Details Date Type Department Care Team Description 02/03/2014 Hospital Medical Records [address] [place] [address] [facility] Social History Tobacco Use Types Packs/Day [...] on filedocumented in this encounter Care Teams Nail Specialist Relationship Specialty Start Date End Date Radha Mccray PCP - General 01/28/14 06/25/20 Nancy Elliott DO PCP - General Internal Medicine 06/26/20 08/23/20 Shawanda Oliver MD PCP - General Internal Medicine 08/24/20 10/31/21 Noah Parks [address] [place] [address] PCP - General Internal Medicine 11/01/21 11/25/21 Carmina Varela MD [address] [place] [address] 69892 PCP - General Internal Medicine 11/26/21 Nancy Elliott, Internal Medicine 01/28/14 08/31/22 Db Martino MD [address] [place] [address] 10854 Specialist Cardiology 09/01/22 Dario Ling [address] [place] [address]39 Specialist Pulmonology 09/01/22 documented as of this encounter
--- OUTSIDE RECORDS SUMMARY | 2024-09-07 05:08 | XMS_ITS | Encounter Summary ---
Author Organization [facility] Address [address] [place] [address] Care Team Providers Care Court Worker Name Role Phone Radha Mccray Primary Care Provider Unavailabl e Mariamakoruslan Colbarrettcco Nancy DO Unavailable Unavailable Krakowiak Colasacco, Nancy DO Primary Care Pro vider Unavailable Shawanda Oliver MD Primary Care Provider Noah Gramajo Primary Care Provider [phone] Carmina Varela MD Primary Care Prov ider Db Martino MD Unavailable Unavailable Dario Ling Unavailable Unavailable Encounter Details Date Type Department Care Team Description 05/12/2018 Production Floater Report Medical Records [address] [place] [address] Mariel Arellano, RENÉ Social History Tobacco Use [...] on filedocumented in this encounter Care Teams Court Worker Relationship Specialty Start Date End Date Radha Mccray PCP - General 01/28/14 06/25/20 Nancy Elliott DO PCP - General Internal Medicine 06/26/20 08/23/20 Shawanda Oliver MD PCP - General Internal Medicine 08/24/20 10/31/21 Noah Parks [address] [place] [address] 32480 PCP - General Internal Medicine 11/01/21 11/25/21 Carmina Varela MD [address] [place] [address]20 PCP - General Internal Medicine 11/26/21 Nancy Elliott, Internal Medicine 01/28/14 08/31/22 Db Martino MD [address] [place] [address]3757 Specialist Cardiology 09/01/22 Dario Ling [address] [place] [address] 73375 Specialist Pulmonology 09/01/22 documented as of this encounter
--- OUTSIDE RECORDS SUMMARY | 2024-09-07 05:08 | XMS_ITS | Encounter Summary ---
Author Organization [facility] Address [address] [place] [address] Care Team Providers Care Grease Refining Supervisor Name Role Phone Radha Mccray Primary Care Provider Unavailabl e Krakoruslan Colasacco Nancy DO Unavailable Unavailable Krakowiak Colasacco, Nancy DO Primary Care Pro vider Unavailable Shawanda Oliver MD Primary Care Provider Noah Gramajo Primary Care Provider [phone] Carmina Varela MD Primary Care Prov ider Db Martino MD Unavailable Unavailable Dario Ling Unavailable Unavailable Encounter Details Date Type Department Care Team Description 12/18/2014 Hospital Medical Records [address] [place] [address] Jn Phillips Social History Tobacco Use Types Packs/Day Years [...] on filedocumented in this encounter Care Teams Grease Refining Supervisor Relationship Specialty Start Date End Date Radha Mccray PCP - General 01/28/14 06/25/20 Nancy Elliott DO PCP - General Internal Medicine 06/26/20 08/23/20 Shawanda Oliver MD PCP - General Internal Medicine 08/24/20 10/31/21 Noah Parks [address] [place] [address]95 PCP - General Internal Medicine 11/01/21 11/25/21 Carmina Varela MD [address] [place] [address]20 PCP - General Internal Medicine 11/26/21 Nancy Elliott, DO Internal Medicine 01/28/14 08/31/22 Db Martino MD [address] [place] [address] 63560 Specialist Cardiology 09/01/22 Dario Ling [address] [place] [address] 97253 Specialist Pulmonology 09/01/22 documented as of this encounter
--- OUTSIDE RECORDS SUMMARY | 2024-09-07 05:08 | XMS_ITS | Encounter Summary ---
Author Organization [facility] Address [address] [place] [address] Care Team Providers Care Ship Self Defense System Mk1 Operator Name Role Phone Radha Mccray Primary Care Provider Unavailabl e Mariam[place]lan Colasacco Nancy DO Unavailable Unavailable [place] Colasacco, Nancy DO Primary Care Pro vider Unavailable Shawanda Oliver MD Primary Care Provider Noah Gramajo Primary Care Provider [phone] Carmina Varela MD Primary Care Prov ider Db Martino MD Unavailable Unavailable Dario Ling Unavailable Unavailable Encounter Details Date Type Department Care Team Description 12/27/2015 Salon Shampoo Assistant Report Medical Records [address] [place] [address] Db Martino MD Social History Tobacco Use [...] filedocumented in this encounter Care Teams Ship Self Defense System Mk1 Operator Relationship Specialty Start Date End Date Radha Mccray PCP - General 01/28/14 06/25/20 Nancy Elliott DO PCP - General Internal Medicine 06/26/20 08/23/20 Shawanda Oliver MD PCP - General Internal Medicine 08/24/20 10/31/21 Noah Parks [address] [place] [id number] PCP - General Internal Medicine 11/01/21 11/25/21 Carmina Varela MD [address] [place] [address] PCP - General Internal Medicine 11/26/21 Nancy Elliott, Internal Medicine 01/28/14 08/31/22 Db Martino MD [address] [place] [address] Specialist Cardiology 09/01/22 Dario Ling [address] [place] [phone] Specialist Pulmonology 09/01/22 documented as of this encounter
--- OUTSIDE RECORDS SUMMARY | 2024-09-07 05:08 | XMS_ITS | Encounter Summary ---
Author Organization [facility] Address [address] [place] [address] Care Team Providers Care Hogshead Dumper Name Role Phone Radha Mccray Primary Care Provider Unavailabl e Ariadne Colbarbarao Nancy DO Unavailable Unavailable [place] Colasacco Nancy DO Primary Care Pro vider Unavailable Shawanda Oliver MD Primary Care Provider Noah Gramajo Primary Care Provider [phone] Carmina Varela MD Primary Care Prov ider Db Martino MD Unavailable Unavailable Dario Ling Unavailable Unavailable Encounter Details Date Type Department Care Team Description 02/03/2014 Hospital Medical Records [address] [place] [address] [facility] Social History Tobacco Use Types Packs/Day Years [...] on filedocumented in this encounter Care Teams Hogshead Dumper Relationship Specialty Start Date End Date Radha Mccray PCP - General 01/28/14 06/25/20 Nancy Elliott DO PCP - General Internal Medicine 06/26/20 08/23/20 Shawanda Oliver MD PCP - General Internal Medicine 08/24/20 10/31/21 Noah Parks [address] [place] [id number] PCP - General Internal Medicine 11/01/21 11/25/21 Carmina Varela MD [address] [place] [address] PCP - General Internal Medicine 11/26/21 Nancy Elliott, Internal Medicine 01/28/14 08/31/22 Db Martino MD [address] [place] [address] Specialist Cardiology 09/01/22 Dario Ling [address] [place] [phone] Specialist Pulmonology 09/01/22 documented as of this encounter
--- OUTSIDE RECORDS SUMMARY | 2024-09-07 05:08 | XMS_ITS | Encounter Summary ---
Author Organization [facility] Address [address] [place] [address] Care Team Providers Care Diamond Wheel Molder Name Role Phone Radha Mccray Primary Care Provider Unavailabl e [place] Colasacco Nancy DO Unavailable Unavailable [place] Colasacco, Nancy DO Primary Care Pro vider Unavailable Shawanda Oliver MD Primary Care Provider Noah Gramajo Primary Care Provider [phone] Carmina Varela MD Primary Care Prov ider Db Martino MD Unavailable Unavailable Dario Ling Unavailable Unavailable Encounter Details Date Type Department Care Team Description 06/26/2014 Hospital Medical Records [address] [place] [address] Man Corado MD Social History Tobacco Use [...] filedocumented in this encounter Care Teams Diamond Wheel Molder Relationship Specialty Start Date End Date Radha Mccray PCP - General 01/28/14 06/25/20 Nancy Elliott DO PCP - General Internal Medicine 06/26/20 08/23/20 Shawanda Oliver MD PCP - General Internal Medicine 08/24/20 10/31/21 Noah Parks [address] [place] [id number] PCP - General Internal Medicine 11/01/21 11/25/21 Carmina Varela MD [address] [place] [address] PCP - General Internal Medicine 11/26/21 Nancy Elliott, Internal Medicine 01/28/14 08/31/22 Db Martino MD [address] [place] [id number] Specialist Cardiology 09/01/22 Dario Ling [address] [place] [phone] Specialist Pulmonology 09/01/22 documented as of this encounter
--- OUTSIDE RECORDS SUMMARY | 2024-09-07 05:08 | XMS_ITS | Encounter Summary ---
Author Organization [facility] Address [address] [place] [address] Care Team Providers Care Sem Manager Name Role Phone Nancy Elliott DO Primary Care Pro vider Unavailable Radha Mccray Primary Care Provider Unavailabl e Nancy Elliott DO Unavailable Unavailable Nancy Elliott DO Primary Care Pro vider Unavailable Shawanda Oliver MD Primary Care Provider Noah Gramajo Primary Care Provider [phone] Carmina Varela MD Primary Care Prov ider Db Martino MD Unavailable Unavailable Dario Ling Unavailable Unavailable Reason for Referral * Specialist (Routine) - Authorized/Booked Specialty Diagnoses / Procedures Referred By Contact Referred To Contact INTERVENTIONAL RADIOLOGY Procedures REFERRAL TO INTERVENTIONAL RADIOLOGY Nancy Elliott DO [address] [place] [address] Ext Interventional Rad Referral ID Status Reason Start Date Expiration Date V isits Requested Visits Authorized SEE RVIEW 01/13/14 Authorized/ Booked 01/12/2014 04/13/2014 1 1 Encounter Details Date Type Department Care Team Description 01/12/2014 Orders Only Adult Medicine [address] [address] Nancy Elliott DO Thyroid nodule (Primary Dx) [...] goiter documented in this encounter Care Teams Sem Manager Relationship Specialty Start Date End Date Nancy Elliott DO PCP - General Internal Medicine 11/07/13 01/27/14 Radha Mccray PCP - General 01/28/14 06/25/20 Nancy Elliott DO PCP - General Internal Medicine 06/26/20 08/23/20 Shawanda Oliver MD PCP - General Internal Medicine 08/24/20 10/31/21 Noah Parks [address] [place] [id number] PCP - General Internal Medicine 11/01/21 11/25/21 Carmina Varela MD [address] [place] [address] PCP - General Internal Medicine 11/26/21 Nancy Elliott DO Internal Medicine 01/28/14 08/31/22 Db Martino MD [address] [place], [place] [id number] Specialist Cardiology 09/01/22 Dario Ling [address] [place] [address] Specialist Pulmonology 09/01/22 documented as of this encounter
--- OUTSIDE RECORDS SUMMARY | 2024-09-07 05:08 | XMS_ITS | Clinical Summary ---
Author Organization [address] Address [address] [place] [phone] Phone Care Team Providers Care Department Coordinator Name Role Phone Carmina Ayala MD Primary [...] at bedtime. 30 mL 2 5 Active OneTouch Ultra2 Meter monitoring kit 1 each 3 (three) times a day. 1 each 5 08/30/19 26 Active OneTouch Ultra Test test strip Use as instructed to check fsbs three times daily 300 each 3 5 08/28/19 26 Active sulfamethoxazol e-trimethoprim (BACTRIM DS,SEPTRA DS) 800-160 mg per tablet Take 1 tablet by mouth 2 (two) times a day for 7 days. 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, with long-term current use of insulin ([facility] V24, [facility] V28) 02/15/2024 Morbid obesity with BMI of 4 5.0-49.9, adult ([facility] V24, [facility] V28) 02/15/2024 Pure hypercholesterolemia 11/17/2023 Aortic stenosis [...] Pulmonary nodule 01/02/2016 Overview (02/15/2024): 12/21/11 in [facility] a 4 mm nodule in the right middle lobe anteriorly along the minor fissure Asthma 01/02/2014 CKD (chronic kidney disease) , stage III ([facility] V24, [facility] V28) 01/02/2014 Diabetes mellitus type 2 wit h neurological manifestations ([facility] V24, [facility] V28) 01/02/2014 Hypertension 01/02/2014 Assessment & Plan (05/12/2024 8:29 PM EST): Blood pressure is well-controlled, today 110/68. Will continue same regimen. Orders: Blood pressure monitor Vitamin D deficiency 01/02/2014 CHF NYHA class II ([facility] V24, [facility] V28) Encounters Date Type Department Care Team Description 08/26/2024 Telephone Adult Medicine [address] [phone] Carmina Miller MD Fitting for DME 08/25/2024 Telephone Adult Medicine [address] [phone] Carmina Miller MD body pain (Right side) 07/29/2024 1:37 PM EDT - 07/29/2024 11:59 PM EDT Hospital Encounter Radiology Department - [address] [phone] Encounter for screening mammogram for breast cancer Discharge Disposition: Home or Self Care 07/28/2024 11:30 AM EDT Office Visit Adult [address] [phone] Khadra Mckeon PA Acute cystitis without hematuria (Primary Dx); Dysuria; Stage 3 chronic kidney disease, unspecified whether stage 3a or 3b CKD ([facility] V24, [facility] V28); Diabetes mellitus type 2 with neurological manifestations ([facility] V24, [facility] V28) 07/27/2024 Telephone Adult Medicine [address] [phone] Carmina Miller MD UTI from Last 3 [...] HISTORICAL APPENDECTOMY CARPAL TUNNEL RELEASE Bilateral PROCEDURE: AK NEUROPLASTY &/TRANSPOS MEDIAN NRV CARPAL TUNNE OTHER SURGICAL HISTORY 10/01/14 PROCEDURE: [place] BRNCHSC INCL FLUOR GDNCE DX W/CELL WASHG SPX; COMMENT: ?aspiration OTHER SURGICAL HISTORY 12/05/2016 PROCEDURE: [place] OPEN TX NASAL SEPTAL FRACTURE W/WO STABILIZATION CORONARY ARTERY BYPASS GRAFT 12/10/2017 PROCEDURE: HISTORICAL CABG Medical History Medical History Date Comments Diabetes ([facility] V24, [facility] V28) DX:Diabetes ([facility]) Anxiety DX:Anxiety Dyslipidemia DX:Dyslipidemia TAQUERIA on CPAP DX:TAQUERIA on CPAP; COMMENT: dr bowling COPD (chronic obstructive pu lmonary disease) ([facility] V24, [facility] V28) DX:COPD (chronic o bstructive pulmonary disease) ([facility]) Smoking DX:Smoking; COMM ENT: 25 pack yr CAD (coronary artery disease) DX :CAD (coronary artery disease); COMMENT: Dr. Martino OA (osteoarthritis) of knee DX:O A (osteoarthritis) of knee Hypertension 01/02/2014 DX:Hypertension Diabetes type 2, uncontrolled DX :Diabetes type 2, uncontrolled Old DC (myocardial infarction) D X:Old DC (myocardial infarction); COMMENT: Dr. Martino Diabetes mellitus with renal manifestation ([facility] V24, [facility] V28) 01/02/2014 DX:Diabetes mellitus with re nal manifestation ([facility]) Vitamin D deficiency 01/02/2014 DX:Vitamin D deficiency Hyperlipidemia DX:Hyperlipidemi a Asthma 01/02/2014 DX:Asthma CKD (chronic kidney disease) , stage III ([facility] V24, [facility] V28) 01/02/2014 DX:CKD (chronic kidney disease), stage III (HCC) Diabetes mellitus type 2 wit h neurological manifestations ([facility] V24, [facility] V28) 01/02/2014 DX:Diabetes mellitus type 2 with neurological manifestations (HCC) ICD (implantable cardioverter-defibrillator) in place DX:ICD (implantab le cardioverter-defibrillator) in place 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 For example, early childhood services coordinator or elderly care for an older adult? [...] Info) Description 10/17/2024 10:00 AM EDT Appointment [facility] Endoscopy [address] [place] [id number] Jericho Vargas, [address] [facility] [address] [place] [address] 08/04/2025 2:00 PM EDT Appointment Radiology Department - [address] [phone] Health Maintenance Due Date Last Done Comments [...] Diabetes mellitus type 2 with neurological manifestations ([facility]/HCC V24, CMS/HCC V28) URINALYSIS WITH REFLEX MICROSCOPIC AND CULTURE Routine 07/29/2024 2:20 PM EDT Acute cystitis without hematuria Dysuria Stage 3 chronic kidney disease, unspecified whether stage 3a or 3b CKD (CMS/HCC V24, CMS/HCC V28) Diabetes mellitus type 2 with neurological manifestations ([facility]/HCC V24, [facility] V28) URINALYSIS WITH REFLEX MICROSCOPIC Routine 07/29/2024 2:20 PM EDT Urinary tract infection symptoms URINALYSIS WITH REFLEX MICROSCOPIC AND CULTURE Routine 07/29/2024 2:20 PM EDT Acute cystitis without hematuria Dysuria Stage 3 chronic kidney disease, unspecified whether stage 3a or 3b CKD (CMS/HCC V24, CMS/HCC V28) Diabetes mellitus type 2 with neurological manifestations (CMS/HCC V24, CMS/HCC V28) CULTURE URINE Routine 07/29/2024 2:20 PM [...] Diabetes mellitus type 2 with neurological manifestations (CMS/HCC V24, CMS/HCC V28) HEMOGLOBIN A1C Routine 04/21/2024 2:05 PM [...] with reflex microscopic (07/29/2024 2:20 PM EDT) Specific [place] Urine 1.012 1.003 - 1.030 LAB URINALYSIS - AUTOMATED METHOD 07/29/2024 4:51 PM [facility] pH, Urine 6.5 5.0 - 8.0 pH LAB URINALYSIS - AUTOMATED METHOD 07/29/2024 4:51 PM [facility] Leukocytes, Urine Large(A) Negative LAB URINALYSIS - AUTOMATED METHOD 07/29/2024 4:51 PM [facility] Nitrite, Urine Positive(A) Negative LAB URINALYSIS - AUTOMATED METHOD 07/29/2024 4:51 PM [facility] Protein, Urine Negative <=Trace mg/dL LAB URINALYSIS - AUTOMATED METHOD 07/29/2024 4:51 PM [facility] Glucose, Urine >=1000(A) Negative mg/dL LAB URINALYSIS - AUTOMATED METHOD 07/29/2024 4:51 PM [facility] Ketones, Urine Negative Negative mg/dL LAB URINALYSIS - AUTOMATED METHOD 07/29/2024 4:51 PM [facility] Urobilinogen , Urine 0.2 0.2 - 1.0 mg/dL LAB URINALYSIS - AUTOMATED METHOD 07/29/2024 4:51 PM [facility] Bilirubin, Urine Negative Negative LAB URINALYSIS - AUTOMATED METHOD 07/29/2024 4:51 PM [facility] Blood, Urine Moderate(A) Negative LAB URINALYSIS - AUTOMATED METHOD 07/29/2024 4:51 PM [facility] RBC, Urine 20.1(H) 0 - 4 /HPF LAB URINALYSIS - AUTOMATED METHOD 07/29/2024 4:51 PM EDT [facility] WBC, Urine 90.8(H) 0 - 4 /HPF LAB URINALYSIS - AUTOMATED METHOD 07/29/2024 4:51 PM EDT [facility] Squamous Epithelial, Urine 34 0 - 60 /LPF LAB URINALYSIS - AUTOMATED METHOD 07/29/2024 4:51 PM EDT [facility] Bacteria, Urine Many(A) Negative /HPF LAB URINALYSIS - AUTOMATED METHOD 07/29/2024 4:51 PM EDT [facility] Hyaline Casts, Urine 0.8 0 - 3 /LPF LAB URINALYSIS - AUTOMATED METHOD 07/29/2024 4:51 PM EDT [facility] Urine Urine specimen obtained by clean catch procedure / Unknown Non-blood Collection / Unknown 07/29/2024 2:20 PM EDT 07/29/2024 2:20 PM EDT us Malu MENJIVAR LAB URINE ORDERABLES Final Resul t [facility] [address] [place] [address], * (ABNORMAL) Urinalysis with reflex microscopic and culture (07/29/2024 2:20 PM EDT) Specific [place] Urine 1.012 1.003 - 1.030 LAB URINALYSIS - AUTOMATED METHOD 07/29/2024 4:51 PM EDT [facility] pH, Urine 6.5 5.0 - 8.0 pH LAB URINALYSIS - AUTOMATED METHOD 07/29/2024 4:51 PM EDT [facility] Leukocytes, Urine Large(A) Negative LAB URINALYSIS - AUTOMATED METHOD 07/29/2024 4:51 PM EDT [facility] Nitrite, Urine Positive(A) Negative LAB URINALYSIS - AUTOMATED METHOD 07/29/2024 4:51 PM [facility] Protein, Urine Negative <=Trace mg/dL LAB URINALYSIS - AUTOMATED METHOD 07/29/2024 4:51 PM [facility] Glucose, Urine >=1000(A) Negative mg/dL LAB URINALYSIS - AUTOMATED METHOD 07/29/2024 4:51 PM [facility] Ketones, Urine Negative Negative mg/dL LAB URINALYSIS - AUTOMATED METHOD 07/29/2024 4:51 PM [facility] Urobilinogen , Urine 0.2 0.2 - 1.0 mg/dL LAB URINALYSIS - AUTOMATED METHOD 07/29/2024 4:51 PM [facility] Bilirubin, Urine Negative Negative LAB URINALYSIS - AUTOMATED METHOD 07/29/2024 4:51 PM [facility] Blood, Urine Moderate(A) Negative LAB URINALYSIS - AUTOMATED METHOD 07/29/2024 4:51 PM [facility] RBC, Urine 20.1(H) 0 - 4 /HPF LAB URINALYSIS - AUTOMATED METHOD 07/29/2024 4:51 PM [facility] WBC, Urine 90.8(H) 0 - 4 /HPF LAB URINALYSIS - AUTOMATED METHOD 07/29/2024 4:51 PM [facility] Squamous Epithelial, Urine 34 0 - 60 /LPF LAB URINALYSIS - AUTOMATED METHOD 07/29/2024 4:51 PM [facility] Bacteria, Urine Many(A) Negative /HPF LAB URINALYSIS - AUTOMATED METHOD 07/29/2024 4:51 PM [facility] Hyaline Casts, Urine 0.8 0 - 3 /LPF LAB URINALYSIS - AUTOMATED METHOD 07/29/2024 4:51 PM [facility] Urine Urine specimen obtained by clean catch procedure / Unknown Non-blood Collection / Unknown 07/29/2024 2:20 PM EDT 07/29/2024 2:20 PM EDT Khadra Albalouise Mckeon [place] LAB URINE ORDERABLES Fin al Result Performing Organization Address [facility]/ZIP Co de Phone Number [facility] [address] [place] [address], [place] [phone] * Mcbride urine culture tube (07/29/2024 2:20 PM EDT) Extra Tube Hold for add-ons. 07/29/2024 4:02 PM EDT [facility] Comment:Auto resulted. Urine Urine specimen obtained by clean catch procedure / Unknown Non-blood Collection / Unknown 07/29/2024 2:20 PM EDT 07/29/2024 2:20 PM EDT [facility] Alba Harjeet Mckeon [place] LAB URINE ORDERABLES Fin al Result Performing Organization Address [facility] de Phone Number [facility] [address] [place] [address], [place] [phone] * (ABNORMAL) Culture urine (07/29/2024 2:20 PM EDT) Culture, Urine >100,000 CFU/mL Enterobacter cloacae complex(A) TINA 08/01/2024 10:24 AM EDT [facility] Comment: The organism value for [...] MICROBIOLOGY - GENERAL ORDER JT Final Result [facility] [address] [place] [address], [place] [phone] * MG Mammo Digital Screening w Jimmy bilat (07/29/2024 2:03 PM EDT) Anatomical Region Laterality Modality Breast Bilateral Mammography 08/01/2024 8:07 AM EDT Impressions 08/01/2024 8:08 AM EDT No mammographic evidence of malignancy. BREAST DENSITY: B - There are scattered areas of fibroglandular density. BI-RADS CATEGORY: 1 - NEGATIVE RECOMMENDATION: Screening bilateral mammogram is recommended in 1 year. MAMMO LOCATION: [facility], [address] [place] [address], [phone], . -------- FINAL REPORT -------- Dictated By: Paula Gonzalez Dictated Date: 08/01/2024 08:07 ET Assigned Physician: Paula Gonzalez Reviewed and Electronically Signed By: Paula Gonzalez Signed Date: 08/01/2024 08:08 ET Workstation ID: [id number] Transcribed By: Self Edit Transcribed Date: 08/01/2024 [...] is recommended in 1 year. MAMMO LOCATION: [facility], [address] [place] [address], [phone], . -------- FINAL REPORT -------- Dictated By: Paula Gonzalez Dictated Date: 08/01/2024 08:07 ET Assigned Physician: Paula Gonzalez Reviewed and Electronically Signed By: Paula Gonzalez Signed Date: 08/01/2024 08:08 ET Workstation ID: [id number] Transcribed By: Self Edit Transcribed Date: 08/01/2024 08:07 ET us Carmina Ayala MD IMG BI PROCEDURES Final Result * (ABNORMAL) POC Urine Non-Auto W/O Micro (07/28/2024 11:11 AM EDT) Glucose UA POC 2000+(A) Negative, Trace mg/dL Leukocytes UA POC Positive(A) Negative Nitrite UA POC Negative Negative Urobilinogen UA POC 0.2 E.U./dL mg/dL Protein UA POC Negative Negative, >=300 mg/dL PH UA POC 5.0 Blood UA POC Large Negative, Large Specific [place] UA POC 1.015 Ketones UA POC Negative [...] (World Health Organization Fracture Risk Assessment) The [facility] Department of Internal Medicine recommends [...] alternative screening schedule based on [address] [facility] May 15, 2011 for patients with [...] years. (World HealthOrganization Fracture Risk Assessment) The [facility] Department of Internal Medicine recommendsusing National [...] screening schedule based on bessy St al., [facility] for patients with osteopenia (based on hip BMD T-score) is as follows: * advanced osteopenia (T scores -2.00 to -2.49), BMD testing every year * moderate osteopenia (T scores -1.50 to -1.99), BMD testing every 5years mild osteopenia or normal BMD (T scores -1.50 and higher), BMD testingevery 15 years Result [facility] Carmina Ayala MD IMG DXA PROCEDURES Final Result * Falls Risk Assessment (02/04/2024) [facility] Falls Risk Assessment abstracted Result [facility] HEALTH MAINTENANCE Final Result * Annual BMP Blood Test (12/09/2023) [facility] Annual BMP Blood Test abstracted Result [facility] HEALTH MAINTENANCE Final Result * Diabetes Eye Exam (08/11/2023) [facility] Diabetes: Annual Retina Eye Exam abstracted Result [facility] HEALTH MAINTENANCE Final Result * Depression Screening (07/02/2023) [facility] Depression Screening abstracted Result [facility] HEALTH MAINTENANCE Final Result * Urine Albumin Creatinine Ratio (12/26/2022) [facility] Urine Albumin Creatinine Ratio abstracted Result [facility] HEALTH MAINTENANCE Final Result * Lipid panel (12/26/2022) [facility] LDL/HDL Ratio 3 0 - 4 Triglycerides 135 0 - 150 mg/dL Cholesterol 153 0 - 200 mg/dL HDL 62 >=40 mg/dL LDL Cholesterol 64 0 - 100 mg/dL Blood Venous blood specimen / Unknown Result [facility] Provider LAB BLOOD ORDERABLES Jennifer l Result * Hepatitis C Screening (04/17/2016) [facility] Hepatitis C Screening abstracted Result [facility] Provider HEALTH MAINTENANCE Final Result * Colonoscopy (07/28/2011) [facility] Colonoscopy abstracted, no interpretation Anatomical Region Laterality Modality Other Result [facility] Provider HEALTH MAINTENANCE Final Result * Diabetes Foot Exam (11/17/2003) [facility] Diabetes: Annual Foot Exam abstracted Result [facility] Provider HEALTH MAINTENANCE Final Result from Last 3 Months or Most Recently Relevant to Health Maintenance Insurance [employer] MEDICARE Member Subscriber Plan / Payer (Ef fective 2019-Present) Name:Ling Castrokassy Trent Relation to Subscriber:Self Name:Suhas Castroia Miley Payer ID:[id number] Group ID:[id number] Type:Not on file Address: [place] [facility] [place] [address] Care Teams Department Coordinator Relationship Specialty Start Date End Date Carmina Ayala MD [address] [place] [phone] PCP - General Internal Medicine 03/09/24
--- OUTSIDE RECORDS SUMMARY | 2024-09-07 05:08 | XMS_ITS | Encounter Summary ---
Author Organization [facility] Address [address] [place] [address] Care Team Providers Care Glue Cook Name Role Phone Radha Mccray Primary Care Provider Unavailabl e Krakoruslan Colbarrettcco, Nancy DO Unavailable Unavailable Mariamakowiak Colasacco, Nancy DO Primary Care Pro vider Unavailable Shawanda Oliver MD Primary Care Provider Noah Gramajo Primary Care Provider [phone] Carmina Varela MD Primary Care Prov ider Db Martino MD Unavailable Unavailable Dario Ling Unavailable Unavailable Reason for Visit * Reason Onset Date Comments medication problems 10/24/2014 Encounter Details Date Type Department Care Team Description 10/24/2014 Telephone Adult Medicine [address] [id number] Nancy Elliott DO medication problems Social History [...] Who is patients PCP?: dr calero Payor: [facility] FFS / Plan: FFS HMO $0 [place] [id number] / Product Type: MEDICAID RISK documented in this encounter Plan of Treatment Not on file documented as of this encounter Visit Diagnoses Not on filedocumented in this encounter Care Teams Glue Cook Relationship Specialty Start Date End Date Radha Mccray PCP - General 01/28/14 06/25/20 Nancy Elliott DO PCP - General Internal Medicine 06/26/20 08/23/20 Shawanda Oliver MD PCP - General Internal Medicine 08/24/20 10/31/21 Noah Parks [address] [place] [id number] PCP - General Internal Medicine 11/01/21 11/25/21 Carmina Varela MD [address] [place] [address] PCP - General Internal Medicine 11/26/21 Nancy Elliott, DO Internal Medicine 01/28/14 08/31/22 Db Martino MD [address] [place] [address] Specialist Cardiology 09/01/22 Dario Ling [address] [place] [address] Specialist Pulmonology 09/01/22 documented as of this encounter
--- OUTSIDE RECORDS SUMMARY | 2024-09-07 05:08 | XMS_ITS | Encounter Summary ---
Author Organization [facility] Address [address] [place] [address] Care Team Providers Care Architect Internship Name Role Phone Radha Mccray Primary Care Provider Unavailabl e Krakoruslan Colasacco Nancy DO Unavailable Unavailable Krak[place]iak Colasacco, Nancy DO Primary Care Pro vider Unavailable Shawanda Oliver MD Primary Care Provider Noah Gramajo Primary Care Provider [phone] Carmina Varela MD Primary Care Prov ider Db Martino MD Unavailable Unavailable Dario Ling Unavailable Unavailable Encounter Details Date Type Department Care Team Description 08/16/2015 Head Of Operation And Logistics Report Medical Records [address] [place] [id number] Db Martino MD Social History Tobacco Use [...] on filedocumented in this encounter Care Teams Architect Internship Relationship Specialty Start Date End Date Radha Mccray PCP - General 01/28/14 06/25/20 Nancy Elliott DO PCP - General Internal Medicine 06/26/20 08/23/20 Shawanda Oliver MD PCP - General Internal Medicine 08/24/20 10/31/21 Noah Parks [address] [place] [id number] PCP - General Internal Medicine 11/01/21 11/25/21 Carmina Varela MD [address] [place] [address] PCP - General Internal Medicine 11/26/21 Nancy Elliott, Internal Medicine 01/28/14 08/31/22 Db Martino MD [address] [place] [address] Specialist Cardiology 09/01/22 Dario Ling [address] [place] [address] Specialist Pulmonology 09/01/22 documented as of this encounter
--- OUTSIDE RECORDS SUMMARY | 2024-09-07 05:08 | XMS_ITS | Encounter Summary ---
Author Organization [facility] Address [address] [place] [address] Care Team Providers Care Scrap Preparer Name Role Phone Radha Mccray Primary Care Provider Unavailabl e Ariadne BartonoStephonNancy DO Unavailable Unavailable Mariamakoraviak Micko Nancy DO Primary Care Pro vider Unavailable Shawanda Oliver MD Primary Care Provider Noah Gramajo Primary Care Provider [phone] Carmina Varela MD Primary Care Prov ider Db Martino MD Unavailable Unavailable Dario Ling Unavailable Unavailable Encounter Details Date Type Department Care Team Description 10/04/2014 Hospital Medical Records [address] [place] [address] Social History Tobacco Use Types Packs/Day Years [...] on filedocumented in this encounter Care Teams Scrap Preparer Relationship Specialty Start Date End Date Radha Mccray PCP - General 01/28/14 06/25/20 Nancy Elliott DO PCP - General Internal Medicine 06/26/20 08/23/20 Shawanda Oliver MD PCP - General Internal Medicine 08/24/20 10/31/21 Noah Parks [address] [place] [id number] PCP - General Internal Medicine 11/01/21 11/25/21 Carmina Varela MD [address] [place] [address] PCP - General Internal Medicine 11/26/21 Nancy Elliott, Internal Medicine 01/28/14 08/31/22 Db Martino MD [address] [place] [phone] Specialist Cardiology 09/01/22 Dario Ling [address] [place] [phone] Specialist Pulmonology 09/01/22 documented as of this encounter
--- OUTSIDE RECORDS SUMMARY | 2024-09-07 05:08 | XMS_ITS | Encounter Summary ---
Author Organization [facility] Address [address] [place] [address] Care Team Providers Care Transmission System Operator Name Role Phone Carmina Varela MD Primary Care Prov ider Db Martino MD Unavailable Unavailable Dario Ling Unavailable Unavailable Encounter Details Date Type Department Care Team Description 12/30/2023 Orders Only Medical Records [address] [place] [address] [facility] Social History Tobacco Use Types Packs/Day [...] * OUTSIDE PLAIN FILM (12/14/2023) [facility] RADIOLOGY documented in this encounter Visit Diagnoses Not on filedocumented in this encounter Care Teams Transmission System Operator Relationship Specialty Start Date End Date Carmina Varela MD [address] [place], [place] [phone] PCP - General Internal Medicine 11/26/21 Db Martino MD [address] [place] [address] Specialist Cardiology 09/01/22 Dario Ling [address] [place] [address] Specialist Pulmonology 09/01/22 documented as of this encounter
--- OUTSIDE RECORDS SUMMARY | 2024-09-07 05:08 | XMS_ITS | Encounter Summary ---
Author Organization [facility] Address [address] [place] [address] Care Team Providers Care Lead Assembler Name Role Phone Carmina Varela MD Primary Care Prov ider Db Martino MD Unavailable Unavailable Dario Ling Unavailable Unavailable Reason for Visit * Reason Onset Date Comments Medication 12/15/2023 Encounter Details Date Type Department Care Team Description 12/15/2023 Refill Gastroenterology - [place] [address] [place] [id number] Jericho Vargas DO [address] [facility] [place] [address] Medication Social History Tobacco Use Types Packs/Day [...] on filedocumented in this encounter Care Teams Lead Assembler Relationship Specialty Start Date End Date Carmina Varela MD [address] [place] [address] [phone] PCP - General Internal Medicine 11/26/21 Db Martino MD [address] [place] [address]607 Specialist Cardiology 09/01/22 Dario Ling [address] [place] [address] Specialist Pulmonology 09/01/22 documented as of this encounter
--- OUTSIDE RECORDS SUMMARY | 2024-09-07 05:08 | XMS_ITS | Clinical Summary ---
Author Organization [facility], Address [address] [place] [address] Phone Care Team Providers Care Neighborhood Planner Name Role Phone Carmina Varela MD Primary [...] Visit [facility], [address] [place] [address] Marino Hopson MD Stage 3b [...] Visit [facility] [address] [place] [address] Marino Hopson MD [address] [place] [address] Health Maintenance Due Date Last [...] 09/30/2021, 01/07/2017, 12/22/2011, Additional history exists Insurance [id number] One [employer] Dual SNP ([id number]) [place] [id number] Care Teams Neighborhood Planner Relationship Specialty Start Date End Date Carmina Varela MD PCP - General 12/03/22
--- OUTSIDE RECORDS SUMMARY | 2024-09-07 05:08 | XMS_ITS | Encounter Summary ---
Author Organization [facility] Address [address] [place] [address] Care Team Providers Care Capacitor Inspector Name Role Phone Radha Mccray Primary Care Provider Unavailabl e Stephon Elliottabela DO Unavailable Unavailable Mariamakoraviak Micko Nancy DO Primary Care Pro vider Unavailable Shawanda Oliver MD Primary Care Provider Noah Gramajo Primary Care Provider [phone] Carmina Varela MD Primary Care Prov ider Db Martino MD Unavailable Unavailable Dario Ling Unavailable Unavailable Encounter Details Date Type Department Care Team Description 03/25/2015 Hospital Medical Records [address] [place] [address] Social History Tobacco Use Types Packs/Day Years [...] on filedocumented in this encounter Care Teams Capacitor Inspector Relationship Specialty Start Date End Date Radha Mccray PCP - General 01/28/14 06/25/20 Nancy Elliott DO PCP - General Internal Medicine 06/26/20 08/23/20 Shawanda Oliver MD PCP - General Internal Medicine 08/24/20 10/31/21 Noah Parks [address] [place] [address] PCP - General Internal Medicine 11/01/21 11/25/21 Carmina Varela MD [address] [place] [address] PCP - General Internal Medicine 11/26/21 Nancy Elliott, Internal Medicine 01/28/14 08/31/22 Db Martino MD [address] [place] [address] 46438 Specialist Cardiology 09/01/22 Dario Ling [address] [place] [address] Specialist Pulmonology 09/01/22 documented as of this encounter
--- OUTSIDE RECORDS SUMMARY | 2024-09-07 05:08 | XMS_ITS | Encounter Summary ---
Author Organization [facility] Address [address] [place] [address] Care Team Providers Care Blueprint Clerk Name Role Phone Radha Mccray Primary Care Provider Unavailabl e Krakoruslan Colasacco, Nancy DO Unavailable Unavailable Krakowiak Colasacco, Nancy DO Primary Care Pro vider Unavailable Shawanda Oliver MD Primary Care Provider Noah Gramajo Primary Care Provider [phone] Carmina Varela MD Primary Care Prov ider Db Martino MD Unavailable Unavailable Dario Ling Unavailable Unavailable Encounter Details Date Type Department Care Team Description 05/19/2014 Business Solutions Director Report Medical Records [address] [place] [address] Db Martino MD Social History Tobacco Use [...] on filedocumented in this encounter Care Teams Blueprint Clerk Relationship Specialty Start Date End Date Radha Mccray PCP - General 01/28/14 06/25/20 Nancy Elliott DO PCP - General Internal Medicine 06/26/20 08/23/20 Shawanda Oliver MD PCP - General Internal Medicine 08/24/20 10/31/21 Noah Parks [address] [place] [address] PCP - General Internal Medicine 11/01/21 11/25/21 Carmina Varela MD [address] [place] [address] PCP - General Internal Medicine 11/26/21 Nancy Elliott, Internal Medicine 01/28/14 08/31/22 Db Martino MD [address] [place] [address]126 Specialist Cardiology 09/01/22 Dario Ling [address] [place] [address] Specialist Pulmonology 09/01/22 documented as of this encounter
--- OUTSIDE RECORDS SUMMARY | 2024-09-07 05:08 | XMS_ITS | Encounter Summary ---
Author Organization [facility] [place] [facility] Address [address] [place] [address] Care Team Providers Care Senior Benefits Analyst Name Role Phone Nancy Elliott DO Unavailable Unavailable Shawanda Oliver MD Primary Care Provider Noah Gramajo Primary Care Provider [phone] Carmina Varela MD Primary Care Prov ider Db Martino MD Unavailable Unavailable Dario Ling Unavailable Unavailable Encounter Details Date Type Department Care Team Description 11/15/2020 Flexo Folder Gluer Operator Report Medical Records [address] [place] [address] Abstract, Provider Social History Tobacco Use Types [...] filedocumented in this encounter Care Teams Senior Benefits Analyst Relationship Specialty Start Date End Date Shawanda Oliver MD PCP - General Internal Medicine 08/24/20 10/31/21 Noah Parks [address] [place] [address] PCP - General Internal Medicine 11/01/21 11/25/21 Carmina Varela MD [address] [place] [address] PCP - General Internal Medicine 11/26/21 Nancy Elliott, DO Internal Medicine 01/28/14 08/31/22 Db Martino MD [address] [place] [address] 00566 Specialist Cardiology 09/01/22 Dario Ling [address] [place] [address] Specialist Pulmonology 09/01/22 documented as of this encounter
--- OUTSIDE RECORDS SUMMARY | 2024-09-07 05:08 | XMS_ITS | Encounter Summary ---
Author Organization [facility] Address [address] [place] [address] Care Team Providers Care Mobile Sales Expert Name Role Phone Radha Mccray Primary Care Provider Unavailabl e Ariadne Bartono Nancy DO Unavailable Unavailable Mariamakoruslan Bartono Nancy DO Primary Care Pro vider Unavailable Shawanda Oliver MD Primary Care Provider Noah Gramajo Primary Care Provider [phone] Carmina Varela MD Primary Care Prov ider Db Martino MD Unavailable Unavailable Dario Ling Unavailable Unavailable Encounter Details Date Type Department Care Team Description 02/05/2014 Hospital Medical Records [address] [place] [address] Sudanese, Cari, DO Social History Tobacco Use Types Packs/Day [...] on filedocumented in this encounter Care Teams Mobile Sales Expert Relationship Specialty Start Date End Date Radha Mccray PCP - General 01/28/14 06/25/20 Nancy Elliott DO PCP - General Internal Medicine 06/26/20 08/23/20 Shawanda Oliver MD PCP - General Internal Medicine 08/24/20 10/31/21 Noah Parks [address] [place] [address] PCP - General Internal Medicine 11/01/21 11/25/21 Carmina Varela MD [address] [place] [address] PCP - General Internal Medicine 11/26/21 Nancy Elliott, DO Internal Medicine 01/28/14 08/31/22 Db Martino MD [address] [place] [address]34 Specialist Cardiology 09/01/22 Dario Ling [address] [place] [address]32 Specialist Pulmonology 09/01/22 documented as of this encounter
--- OUTSIDE RECORDS SUMMARY | 2024-09-07 05:08 | XMS_ITS | Encounter Summary ---
Author Organization [facility] Address [address] [place] [address] Care Team Providers Care Forestry Tree Pruner Name Role Phone Nancy Elliott DO Primary Care Pro vider Unavailable Radha Mccray Primary Care Provider Unavailabl e Mariamakowifranklin Colasacco Nancy DO Unavailable Unavailable [place] Colasacco Nancy DO Primary Care Pro vider Unavailable Shawanda Oliver MD Primary Care Provider Noah Gramajo Primary Care Provider [phone] Carmina Varela MD Primary Care Prov ider Db Martino MD Unavailable Unavailable Dario Ling Unavailable Unavailable Reason for Visit * Reason Onset Date Comments Faxed Order 12/21/2013 [facility] Encounter Details Date Type Department Care Team Description 12/21/2013 Telephone Adult Medicine [address] [address] Nancy Elliott DO Faxed Order ([facility]) Social History Tobacco Use Types Packs/Day Years [...] encounter Miscellaneous Notes * Telephone Encounter - Jonelle Govea - 12/30/2013 1:33 PM EDT Please view orders, sign[phone] Attn: Romana. * Telephone Encounter - Vanda Martines - 12/21/2013 11:21 AM EDT Please review and sign and fax back fax [phone] documented in this encounter Plan of Treatment Not on file documented as of this encounter Visit Diagnoses Not on filedocumented in this encounter Care Teams Forestry Tree Pruner Relationship Specialty Start Date End Date Nancy Elliott DO PCP - General Internal Medicine 11/07/13 01/27/14 Radha Mccray PCP - General 01/28/14 06/25/20 Nancy Elliott DO PCP - General Internal Medicine 06/26/20 08/23/20 Shawanda Oliver MD PCP - General Internal Medicine 08/24/20 10/31/21 Noah Parks [address] [place] [address]648 PCP - General Internal Medicine 11/01/21 11/25/21 Carmina Varela MD [address] [place] [address]871 PCP - General Internal Medicine 11/26/21 Nancy Elliott DO Internal Medicine 01/28/14 08/31/22 Db Martino MD [address] [place] [address]60 Specialist Cardiology 09/01/22 Dario Ling [address] [place] [address]28 Specialist Pulmonology 09/01/22 documented as of this encounter
--- OUTSIDE RECORDS SUMMARY | 2024-09-07 05:08 | XMS_ITS | Encounter Summary ---
Author Organization [facility] Address [address] [place] [address] Care Team Providers Care Conversion Developer Name Role Phone Radha Mccray Primary [...] Team Description 04/11/2014 [facility] Medical Records [address] [place] [address] Abstract, Provider Social History Tobacco Use Types [...] on filedocumented in this encounter Care Teams Conversion Developer Relationship Specialty Start Date End Date Radha Mccray PCP - General 01/28/14 06/25/20 Nancy Elliott DO PCP - General Internal Medicine 06/26/20 08/23/20 Shawanda Oliver MD PCP - General Internal Medicine 08/24/20 10/31/21 Noah Parks [address] [place] [address]017 PCP - General Internal Medicine 11/01/21 11/25/21 Carmina Varela MD [address] [place] [address] PCP - General Internal Medicine 11/26/21 Nancy Elliott DO Internal Medicine 01/28/14 08/31/22 Db Martino MD [address] [place] [address]22 Specialist Cardiology 09/01/22 Dario Ling [address] [place] [address] 97[address] Specialist Pulmonology 09/01/22 documented as of this encounter
--- OUTSIDE RECORDS SUMMARY | 2024-09-07 05:08 | XMS_ITS | Encounter Summary ---
Author Organization [facility] Address [address] [place] [address] Care Team Providers Care Staff Developer Name Role Phone Radha Mccray Primary Care Provider Unavailabl e Mariamakoruslan Colbarbarao Nancy DO Unavailable Unavailable [place]owiak Colasacco, Nancy DO Primary Care Pro vider Unavailable Shawanda Oliver MD Primary Care Provider Noah Gramajo Primary Care Provider [phone] Carmina Varela MD Primary Care Prov ider Db Martino MD Unavailable Unavailable Dario Ling Unavailable Unavailable Encounter Details Date Type Department Care Team Description 03/24/2016 Hospital Medical Records [address] [place] [address] Mariel Arellano, RENÉ Social History Tobacco Use [...] on filedocumented in this encounter Care Teams Staff Developer Relationship Specialty Start Date End Date Radha Mccray PCP - General 01/28/14 06/25/20 Nancy Elliott DO PCP - General Internal Medicine 06/26/20 08/23/20 Shawanda Oliver MD PCP - General Internal Medicine 08/24/20 10/31/21 Noah Parks [address] [place] [address]951 PCP - General Internal Medicine 11/01/21 11/25/21 Carmina Varela MD [address] [place] [address] PCP - General Internal Medicine 11/26/21 Nancy Elliott, Internal Medicine 01/28/14 08/31/22 Db Martino MD [address] [place] [address] 80896 Specialist Cardiology 09/01/22 Dario Ling [address] [place] [address] Specialist Pulmonology 09/01/22 documented as of this encounter
--- OUTSIDE RECORDS SUMMARY | 2024-09-07 05:09 | XMS_ITS | Encounter Summary ---
Author Organization [facility] [place] [facility] Address [address] [place] [address] Care Team Providers Care Welt Slasher Name Role Phone Radha Mccray Primary Care Provider Unavailabl e Krakoruslan Colasacco Nancy DO Unavailable Unavailable K[place]owiak Colasacco, Nancy DO Primary Care Pro vider Unavailable Shawanda Oliver MD Primary Care Provider Noah Gramajo Primary Care Provider [phone] Carmina Varela MD Primary Care Prov ider Db Martino MD Unavailable Unavailable Dario Ling Unavailable Unavailable Encounter Details Date Type Department Care Team Description 12/01/2017 Hospital Medical Records [address] [place] [address] Brandon Mack Social History Tobacco Use Types [...] on filedocumented in this encounter Care Teams Welt Slasher Relationship Specialty Start Date End Date Radha Mccray PCP - General 01/28/14 06/25/20 Nancy Elliott DO PCP - General Internal Medicine 06/26/20 08/23/20 Shawanda Oliver MD PCP - General Internal Medicine 08/24/20 10/31/21 Noah Parks [address] [place] [address] PCP - General Internal Medicine 11/01/21 11/25/21 Carmina Varela MD [address] [place] [address]97 PCP - General Internal Medicine 11/26/21 Nancy Elliott, Internal Medicine 01/28/14 08/31/22 Db Martino MD [address] [place] [address] 40687 Specialist Cardiology 09/01/22 Dario Ling [address] [place] [address]190 Specialist Pulmonology 09/01/22 documented as of this encounter
--- OUTSIDE RECORDS SUMMARY | 2024-09-07 05:09 | XMS_ITS | Encounter Summary ---
Author Organization [facility] Address [address] [place] [address] Care Team Providers Care Inspector Tester Sorter Name Role Phone Nancy Elliott DO Unavailable Unavailable Shawanda Oliver MD Primary Care Provider Noah Gramajo Primary Care Provider [phone] Carmina Varela MD Primary Care Prov ider Db Martino MD Unavailable Unavailable Dario Ling Unavailable Unavailable Reason for Visit * Reason Comments E-prescribe Rx Request Encounter Details Date Type Department Care Team Description 11/27/2020 Refill Adult Medicine [address] [address] Nancy Elliott DO E-prescribe Rx Request Social [...] N/A Patients current insurance carrier is: Payor: [facility] / Plan: [facility] $0 [facility] [id number] / Product Type: HMO [id number] documented in this encounter Plan of Treatment Not on file documented as of this encounter Visit Diagnoses Not on filedocumented in this encounter Care Teams Inspector Tester Sorter Relationship Specialty Start Date End Date Shawanda Oliver MD PCP - General Internal Medicine 08/24/20 10/31/21 Noah Parks [address] [place] [address] PCP - General Internal Medicine 11/01/21 11/25/21 Carmina Varela MD [address] [place] [address]011 PCP - General Internal Medicine 11/26/21 Nancy Elliott, DO Internal Medicine 01/28/14 08/31/22 Db Martino MD [address] [place] [address] Specialist Cardiology 09/01/22 Dario Ling [address] [place] [address] Specialist Pulmonology 09/01/22 documented as of this encounter
--- OUTSIDE RECORDS SUMMARY | 2024-09-07 05:09 | XMS_ITS | Encounter Summary ---
Author Organization [facility] Address [address] [place] [address] Care Team Providers Care Truck Trailer Mechanic Name Role Phone Nancy Elliott DO Unavailable Unavailable Nancy Elliott DO Primary Care Pro vider Unavailable Shawanda Oliver MD Primary Care Provider Noah Gramajo Primary Care Provider [phone] Carmina Varela MD Primary Care Prov ider Db Martino MD Unavailable Unavailable Dario Ling Unavailable Unavailable Encounter Details Date Type Department Care Team Description 07/23/2020 [facility] Medical Records [address] [place] [address] Poncho Pelletier MD Social History Tobacco Use [...] on filedocumented in this encounter Care Teams Truck Trailer Mechanic Relationship Specialty Start Date End Date Nancy Elliott DO PCP - General Internal Medicine 06/26/20 08/23/20 Shawanda Oliver MD PCP - General Internal Medicine 08/24/20 10/31/21 Noah Parks [address] [place] [address]178 PCP - General Internal Medicine 11/01/21 11/25/21 Carmina Varela MD [address] [place] [address] 52901 PCP - General Internal Medicine 11/26/21 Nancy Elliott, DO Internal Medicine 01/28/14 08/31/22 Db Martino MD [address] [place] [address] 80823 Specialist Cardiology 09/01/22 Dario Ling [address] [place] [address] 16466 Specialist Pulmonology 09/01/22 documented as of this encounter
--- OUTSIDE RECORDS SUMMARY | 2024-09-07 05:09 | XMS_ITS | Encounter Summary ---
Author Organization [facility] Address [address] [place] [address] Care Team Providers Care Brick And Tile Making Machine Operator Name Role Phone Carmina Varela MD Primary Care Prov ider Db Martino MD Unavailable Unavailable Dario Ling Unavailable Unavailable Encounter Details Date Type Department Care Team Description 03/23/2023 Hospital Medical Records [address] [place] [address] Patsy Rivera NP Social History Tobacco Use [...] filedocumented in this encounter Care Teams Brick And Tile Making Machine Operator Relationship Specialty Start Date End Date Carmina Varela MD [address] [place] [address]177 PCP - General Internal Medicine 11/26/21 Db Martino MD [address] [place] [address] 51833 Specialist Cardiology 09/01/22 Dario Ling [address] [place] [address] Specialist Pulmonology 09/01/22 documented as of this encounter
--- OUTSIDE RECORDS SUMMARY | 2024-09-07 05:09 | XMS_ITS | Encounter Summary ---
Author Organization [facility] [facility] Address [address] [place] [address] Care Team Providers Care Clay Thrower Name Role Phone Carmina Varela MD Primary Care Prov ider Db Martino MD Unavailable Unavailable Dario Ling Unavailable Unavailable Encounter Details Date Type Department Care Team Description 10/14/2022 Business Doc Medical Records [address] [place] [address] Abstract, Provider Social History Tobacco Use Types [...] on filedocumented in this encounter Care Teams Clay Thrower Relationship Specialty Start Date End Date Carmina Varela MD [address] [place], [place] [phone] PCP - General Internal Medicine 11/26/21 Db Martino MD [address] [place] [address] Specialist Cardiology 09/01/22 Dario Ling [address] [place] [address] Specialist Pulmonology 09/01/22 documented as of this encounter
--- OUTSIDE RECORDS SUMMARY | 2024-09-07 05:09 | XMS_ITS | Encounter Summary ---
Author Organization [facility] Address [address] [place] [address] Care Team Providers Care Oil Spreader Operator Name Role Phone Radha Mccray Primary Care Provider Unavailabl e Nancy Elliott DO Unavailable Unavailable Stephon Elliottabela DO Primary Care Pro vider Unavailable Shawanda Oliver MD Primary Care Provider Noah Gramajo Primary Care Provider [phone] Carmina Varela MD Primary Care Prov ider Db Martino MD Unavailable Unavailable Dario Ling Unavailable Unavailable Reason for Visit * Reason Onset Date Comments [facility] Call 10/04/2018 Encounter Details Date Type Department Care Team Description 10/04/2018 Telephone Adult Medicine [address] [address] Nancy Elliott DO [facility]NA Call Social History [...] on filedocumented in this encounter Care Teams Oil Spreader Operator Relationship Specialty Start Date End Date Radha Mccray PCP - General 01/28/14 06/25/20 Nancy Elliott DO PCP - General Internal Medicine 06/26/20 08/23/20 Shawanda Oliver MD PCP - General Internal Medicine 08/24/20 10/31/21 Noah Parks [address] [place] [address] PCP - General Internal Medicine 11/01/21 11/25/21 Carmina Varela MD [address] [place] [address] PCP - General Internal Medicine 11/26/21 Nancy Elliott DO Internal Medicine 01/28/14 08/31/22 Db Martino MD [address] [place] [address]87 Specialist Cardiology 09/01/22 Dario Ling [address] [place], [place] [address] Specialist Pulmonology 09/01/22 documented as of this encounter
--- OUTSIDE RECORDS SUMMARY | 2024-09-07 05:09 | XMS_ITS | Encounter Summary ---
Author Organization [facility] Address [address] [place] [address] Care Team Providers Care Hotel And Dining Room Cashier Name Role Phone Radha Mccray Primary Care Provider Unavailabl e Mariamakoruslan Colasacco Nancy DO Unavailable Unavailable [place] Colasacco, Nancy DO Primary Care Pro vider Unavailable Shawanda Oliver MD Primary Care Provider Noah Gramajo Primary Care Provider [phone] Carmina Varela MD Primary Care Prov ider Db Martino MD Unavailable Unavailable Dario Ling Unavailable Unavailable Encounter Details Date Type Department Care Team Description 01/07/2017 Scanner Operator Report Medical Records [address] [place] [address] Abstract, Provider Social History Tobacco Use Types [...] on filedocumented in this encounter Care Teams Hotel And Dining Room Cashier Relationship Specialty Start Date End Date Radha Mccray PCP - General 01/28/14 06/25/20 Nancy Elliott DO PCP - General Internal Medicine 06/26/20 08/23/20 Shawanda Oliver MD PCP - General Internal Medicine 08/24/20 10/31/21 Noah Parks [address] [place] [address] PCP - General Internal Medicine 11/01/21 11/25/21 Carmina Varela MD [address] [place] [address] PCP - General Internal Medicine 11/26/21 Nancy Elliott, Internal Medicine 01/28/14 08/31/22 Db Martino MD [address] [place] [address] 17456 Specialist Cardiology 09/01/22 Dario Ling [address] [place] [address]118 Specialist Pulmonology 09/01/22 documented as of this encounter
--- OUTSIDE RECORDS SUMMARY | 2024-09-07 05:09 | XMS_ITS | Encounter Summary ---
Author Organization [facility] Address [address] [place] [address] Care Team Providers Care Panel Instrument Repairer Name Role Phone Nancy Elliott DO Unavailable Unavailable Nancy Elliott DO Primary Care Pro vider Unavailable Shawanda Oliver MD Primary Care Provider Noah Gramajo Primary Care Provider [phone] Carmina Varela MD Primary Care Prov ider Db Martino MD Unavailable Unavailable Dario Ling Unavailable Unavailable Reason for Visit * Reason Onset Date Comments hospital follow up 07/26/2020 Encounter Details Date Type Department Care Team Description 07/26/2020 Telephone Adult Medicine [facility] [address] [place] [address] Nancy Elliott DO hospital follow up Social [...] appointment needed Hospital patient was treated at: [facility] Was this only an ER visit or [...] on filedocumented in this encounter Care Teams Panel Instrument Repairer Relationship Specialty Start Date End Date Nancy Elliott DO PCP - General Internal Medicine 06/26/20 08/23/20 Shawanda Oliver MD PCP - General Internal Medicine 08/24/20 10/31/21 Noah Parks [address] [place] [address] PCP - General Internal Medicine 11/01/21 11/25/21 Carmina Varela MD [address] [place] [address] PCP - General Internal Medicine 11/26/21 Nancy Elliott DO Internal Medicine 01/28/14 08/31/22 Db Martino MD [address] [place] [address] Specialist Cardiology 09/01/22 Dario Ling [address] [place] [address] Specialist Pulmonology 09/01/22 documented as of this encounter
--- OUTSIDE RECORDS SUMMARY | 2024-09-07 05:09 | XMS_ITS | Encounter Summary ---
Author Organization [facility] Address [address] [place] [address] Care Team Providers Care Asset Protection Greeter Name Role Phone Carmina Varela MD Primary Care Prov ider Db Martino MD Unavailable Unavailable Dario Ling Unavailable Unavailable Encounter Details Date Type Department Care Team Description 12/25/2022 Certified Health Education Specialist Report Medical Records [address] [place] [address] Mariel Arellano FNP Social History Tobacco Use [...] on filedocumented in this encounter Care Teams Asset Protection Greeter Relationship Specialty Start Date End Date Carmina Varela MD [address] [place], [place] [phone] PCP - General Internal Medicine 11/26/21 Db Martino MD [address] [place] [address] Specialist Cardiology 09/01/22 Dario Ling [address] [place] [address] Specialist Pulmonology 09/01/22 documented as of this encounter
--- OUTSIDE RECORDS SUMMARY | 2024-09-07 05:09 | XMS_ITS | Encounter Summary ---
Author Organization [facility] Address [address] [place] [address] Care Team Providers Care Pattern Worker Name Role Phone Radha Mccray Primary Care Provider Unavailabl e Mariamakoruslan Colbarrettcco Nancy DO Unavailable Unavailable [place] Colasacco Nancy DO Primary Care Pro vider Unavailable Shawanda Oliver MD Primary Care Provider Noah Gramajo Primary Care Provider [phone] Carmina Varela MD Primary Care Prov ider Db Martino MD Unavailable Unavailable Dario Ling Unavailable Unavailable Encounter Details Date Type Department Care Team Description 04/16/2018 Hospital Medical Records [address] [place] [address] Abstract, Provider Social History Tobacco Use Types [...] on filedocumented in this encounter Care Teams Pattern Worker Relationship Specialty Start Date End Date Radha Mccray PCP - General 01/28/14 06/25/20 Nancy Elliott DO PCP - General Internal Medicine 06/26/20 08/23/20 Shawanda Oliver MD PCP - General Internal Medicine 08/24/20 10/31/21 Noah Parks [address] [place] [address] PCP - General Internal Medicine 11/01/21 11/25/21 Carmina Varela MD [address] [place] [address] PCP - General Internal Medicine 11/26/21 Nancy Elliott, Internal Medicine 01/28/14 08/31/22 Db Martino MD [address] [place] [address] Specialist Cardiology 09/01/22 Dario Ling [address] [place] [address] Specialist Pulmonology 09/01/22 documented as of this encounter
--- OUTSIDE RECORDS SUMMARY | 2024-09-07 05:09 | XMS_ITS | Encounter Summary ---
Author Organization [facility] Address [address] [place] [address] Care Team Providers Care Logistics Center Manager Name Role Phone Shazia Gerrydexter Primary Care Provider Unavailabl e Ariadne Bartono Nancy Unavailable Unavailable Ariadne Bartono Nancy DO Primary Care Pro vider Unavailable Shawanda Oliver MD Primary Care Provider Noah Gramajo Primary Care Provider [phone] Carmina Varela MD Primary Care Prov ider Db Martino MD Unavailable Unavailable Dario Ling Unavailable Unavailable Reason for Visit * Reason Onset Date Comments Testing 10/04/2016 Encounter Details Date Type Department Care Team Description 10/04/2016 Telephone Adult Medicine [address] [address] Nancy Elliott DO Testing Social History Tobacco [...] on filedocumented in this encounter Care Teams Logistics Center Manager Relationship Specialty Start Date End Date Radha Mccray PCP - General 01/28/14 06/25/20 Nancy Elliott DO PCP - General Internal Medicine 06/26/20 08/23/20 Shawanda Oliver MD PCP - General Internal Medicine 08/24/20 10/31/21 Noah Parks [address] [place] [address] PCP - General Internal Medicine 11/01/21 11/25/21 Carmina Varela MD [address] [place] [address] PCP - General Internal Medicine 11/26/21 Nancy Elliott DO Internal Medicine 01/28/14 08/31/22 Db Martino MD [address] [place] [address] Specialist Cardiology 09/01/22 Dario Ling [address] [place] [address] Specialist Pulmonology 09/01/22 documented as of this encounter
--- OUTSIDE RECORDS SUMMARY | 2024-09-07 05:09 | XMS_ITS | Encounter Summary ---
Author Organization [facility] Address [address] [place] [address] Care Team Providers Care Pie Filling Mixer Name Role Phone Nancy Elliott DO Unavailable Unavailable Carmina Varela MD Primary Care Prov ider Db Martino MD Unavailable Unavailable Dario Ling Unavailable Unavailable Encounter Details Date Type Department Care Team Description 08/21/2022 Orders Only Adult Medicine [facility] [address] [place] [address] Carmina Varela MD [address] [place] [address] Preoperative examination; Screening for deficiency anemia Social [...] 10.8 x10-3/uL 08/29/2022 12:51 PM EDT [facility] RED BLOOD COUNT 5.0(H) 3.8 - 4.8 x10-6/uL 08/29/2022 12:51 PM EDT [facility] Hemoglobin 15.0 11.5 - 16.0 g/dL 08/29/2022 12:51 PM EDT [facility] Hematocrit 47.1(H) 35 - 47 % 08/29/2022 12:51 PM EDT [facility] MEAN CORPUSCULAR VOLUME 95.2 79 - 98 fL 08/29/2022 12:51 PM EDT [facility] MEAN CORPUSCULAR HEMOGLOBIN 30.3 27 - 32 pg 08/29/2022 12:51 PM EDT [facility] MEAN CORPUSCULAR HGB CONC 31.8(L) 32 - 37 g/dL 08/29/2022 12:51 PM EDT [facility] RED CELL DISTRIBUTION WIDTH 15.8(H) 11 - 15 % 08/29/2022 12:51 PM EDT [facility] [facility] PLT COUNT 156 130 - 400 x10-3/uL 08/29/2022 12:51 PM EDT [facility] MEAN PLATELET VOLUME 12.7(H) 7 - 11 fL 08/29/2022 12:51 PM EDT [facility] NRBC % AUTO 0.0 <1 % 08/29/2022 12:51 PM EDT [facility] NEUTROPHILS % 46.9 % 08/29/2022 12:51 PM EDT [facility] LYMPH % 42.1 % 08/29/2022 12:51 PM EDT [facility] MONO % 6.2 % 08/29/2022 12:51 PM EDT [facility] EOS % 3.4 % 08/29/2022 12:51 PM EDT [facility] BASO % 1.2 % 08/29/2022 12:51 PM EDT [facility] IMMATURE GRANULOCYTES % 0.2 % 08/29/2022 12:51 [...] Release to patient->Immediate Carmina Martins MD LAB [facility] documented in this encounter Visit Diagnoses [...] disorders documented in this encounter Care Teams Pie Filling Mixer Relationship Specialty Start Date End Date Carmina Varela MD [address] [place] [address] PCP - General Internal Medicine 11/26/21 Nancy Elliott, DO Internal Medicine 01/28/14 08/31/22 Db Martino MD [address] [place] [address] Specialist Cardiology 09/01/22 Dario Ling [address] [place], [place] [phone] Specialist Pulmonology 09/01/22 documented as of this encounter
--- OUTSIDE RECORDS SUMMARY | 2024-09-07 05:09 | XMS_ITS | Encounter Summary ---
Author Organization [facility] Address [address] [place] [address] Care Team Providers Care Weeder Name Role Phone Radha Mccray Primary Care Provider Unavailabl e Ariadne Colbarbarao Nancy DO Unavailable Unavailable [place]am[place]iak Colasacco Nancy DO Primary Care Pro vider Unavailable Shawanda Oliver MD Primary Care Provider Noah Gramajo Primary Care Provider [phone] Carmina Varela MD Primary Care Prov ider Db Martino MD Unavailable Unavailable Dario Ling Unavailable Unavailable Encounter Details Date Type Department Care Team Description 03/10/2018 Trolley Car Operator Report Medical Records [address] [place], [place] [address] [place] [address] Social History Tobacco Use Types Packs/Day Years [...] on filedocumented in this encounter Care Teams Weeder Relationship Specialty Start Date End Date Radha Mccray PCP - General 01/28/14 06/25/20 Nancy Elliott DO PCP - General Internal Medicine 06/26/20 08/23/20 Shawanda Oliver MD PCP - General Internal Medicine 08/24/20 10/31/21 Noah Parks [address] [place] [address] PCP - General Internal Medicine 11/01/21 11/25/21 Carmina Varela MD [address] [place] [address] PCP - General Internal Medicine 11/26/21 Nancy Elliott, DO Internal Medicine 01/28/14 08/31/22 Db Martino MD [address] [place] [address] Specialist Cardiology 09/01/22 Dario Ling [address] [place] [address] Specialist Pulmonology 09/01/22 documented as of this encounter
--- OUTSIDE RECORDS SUMMARY | 2024-09-07 05:09 | XMS_ITS | Encounter Summary ---
Author Organization [facility] Address [address] [place] [address] Care Team Providers Care Medical Services Assistant Name Role Phone Radha Mccray Primary Care Provider Unavailabl e Mariamakoruslan Colasacco Nancy DO Unavailable Unavailable [place] Colasacco, Nancy DO Primary Care Pro vider Unavailable Shawanda Oliver MD Primary Care Provider Noah Gramajo Primary Care Provider [phone] Carmina Varela MD Primary Care Prov ider Db Martino MD Unavailable Unavailable Dario Ling Unavailable Unavailable Encounter Details Date Type Department Care Team Description 04/08/2018 Hospital Medical Records [address] [place] [address] Db Martino MD Social History Tobacco Use [...] filedocumented in this encounter Care Teams Medical Services Assistant Relationship Specialty Start Date End Date Radha Mccray PCP - General 01/28/14 06/25/20 Nancy Elliott DO PCP - General Internal Medicine 06/26/20 08/23/20 Shawanda Oliver MD PCP - General Internal Medicine 08/24/20 10/31/21 Noah Parks [address] [place] [address] PCP - General Internal Medicine 11/01/21 11/25/21 Carmina Varela MD [address] [place] [address] PCP - General Internal Medicine 11/26/21 Nancy Elliott, DO Internal Medicine 01/28/14 08/31/22 Db Martino MD [address] [place] [address]60 Specialist Cardiology 09/01/22 Dario Ling [address] [place] [address] Specialist Pulmonology 09/01/22 documented as of this encounter
--- OUTSIDE RECORDS SUMMARY | 2024-09-07 05:09 | XMS_ITS | Encounter Summary ---
Author Organization [facility] Address [address] [place] [address] Care Team Providers Care Wet Process Miller Name Role Phone Nancy Elliott DO Unavailable Unavailable Shawanda Oliver MD Primary Care Provider Noah Gramajo Primary Care Provider Carmina Varela MD Primary Care Prov ider Db Martino MD Unavailable Unavailable Dario Ling Unavailable Unavailable Reason for Visit * Reason Onset Date Comments Faxed Refill 02/06/2021 Encounter Details Date Type Department Care Team Description 02/06/2021 Refill Adult Medicine [address] [address] Shawanda Oliver MD Faxed Refill Social History [...] N/A Patients current insurance carrier is: Payor: [employer] / Plan: Booster PackO $0 [facility] [id number] / Product Type: HMO [id number] documented in this encounter Plan of Treatment Not on file documented as of this encounter Visit Diagnoses Diagnosis 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, unspecified whether long-term insulin use (HCC) documented in this encounter Care Teams Wet Process Miller Relationship Specialty Start Date End Date Shawanda Oliver MD PCP - General Internal Medicine 08/24/20 10/31/21 Noah Parks [address] [place] [address] PCP - General Internal Medicine 11/01/21 11/25/21 Carmina Varela MD [address] [place] [address] PCP - General Internal Medicine 11/26/21 Nancy Elliott, DO Internal Medicine 01/28/14 08/31/22 Db Martino MD [address] [place] [address]008 Specialist Cardiology 09/01/22 Dario Ling [address] [place] [address] Specialist Pulmonology 09/01/22 documented as of this encounter
--- OUTSIDE RECORDS SUMMARY | 2024-09-07 05:09 | XMS_ITS | Encounter Summary ---
Author Organization [facility] Address [address] [place] [address] Care Team Providers Care Academic Advising Director Name Role Phone Carmina Varela MD Primary Care Prov ider Db Martino MD Unavailable Unavailable Dario Ling Unavailable Unavailable Encounter Details Date Type Department Care Team Description 02/02/2024 Operator Ground Based Air Defence Report Medical Records [address] [place] [address] Db Martino MD Social History Tobacco Use [...] on filedocumented in this encounter Care Teams Academic Advising Director Relationship Specialty Start Date End Date Carmina Varela MD [address] [place], [place] [phone] PCP - General Internal Medicine 11/26/21 Db Martino MD [address] [place], [place] [phone] Specialist Cardiology 09/01/22 Dario Ling [address] [place] [address] Specialist Pulmonology 09/01/22 documented as of this encounter
--- OUTSIDE RECORDS SUMMARY | 2024-09-07 05:09 | XMS_ITS | Encounter Summary ---
Author Organization [facility] Address [address] [place] [address] Care Team Providers Care Local Delivery Truck Driver Name Role Phone Radha Mccray Primary Care Provider Unavailabl e Ariadne Colbarbarao Nancy DO Unavailable Unavailable [place] Colasacco Nancy DO Primary Care Pro vider Unavailable Shawanda Oliver MD Primary Care Provider Noah Gramajo Primary Care Provider Carmina Varela MD Primary Care Prov ider Db Martino MD Unavailable Unavailable Dario Ling Unavailable Unavailable Encounter Details Date Type Department Care Team Description 06/02/2016 Solicitor Patent Report Medical Records [address] [place], [place] [phone] [place] [address] Social History Tobacco Use Types Packs/Day Years [...] on filedocumented in this encounter Care Teams Local Delivery Truck Driver Relationship Specialty Start Date End Date Radha Mccray PCP - General 01/28/14 06/25/20 Nancy Elliott DO PCP - General Internal Medicine 06/26/20 08/23/20 Shawanda Oliver MD PCP - General Internal Medicine 08/24/20 10/31/21 Noah Parks [address] [place] [address] PCP - General Internal Medicine 11/01/21 11/25/21 Carmina Varela MD [address] [place] [address] PCP - General Internal Medicine 11/26/21 Nancy Elliott, DO Internal Medicine 01/28/14 08/31/22 Db Martino MD [address] [place] [address] Specialist Cardiology 09/01/22 Dario Ling [address] [place] [address] Specialist Pulmonology 09/01/22 documented as of this encounter
--- OUTSIDE RECORDS SUMMARY | 2024-09-07 05:09 | XMS_ITS | Encounter Summary ---
Author Organization [facility] Address [address] [place] [address] Care Team Providers Care Relationship Assoc Name Role Phone Radha Mccray Primary Care Provider Unavailabl e Krakoruslan Colasacco, Nancy DO Unavailable Unavailable [place] Colasacco, Nancy DO Primary Care Pro vider Unavailable Shawanda Oliver MD Primary Care Provider Noah Gramajo Primary Care Provider [phone] Carmina Varela MD Primary Care Prov ider Db Martino MD Unavailable Unavailable Dario Ling Unavailable Unavailable Encounter Details Date Type Department Care Team Description 08/10/2018 Loss Prevention Leader Report Medical Records [address] [place] [address] Db Martino MD Social History Tobacco Use [...] filedocumented in this encounter Care Teams Relationship Assoc Relationship Specialty Start Date End Date Radha Mccray PCP - General 01/28/14 06/25/20 Nancy Elliott DO PCP - General Internal Medicine 06/26/20 08/23/20 Shawanda Oliver MD PCP - General Internal Medicine 08/24/20 10/31/21 Noah Parks [address] [place] [address] PCP - General Internal Medicine 11/01/21 11/25/21 Carmina Varela MD [address] [place] [address] PCP - General Internal Medicine 11/26/21 Nancy Elliott, Internal Medicine 01/28/14 08/31/22 Db Martino MD [address] [place] [address] Specialist Cardiology 09/01/22 Dario Ling [address] [place] [address] Specialist Pulmonology 09/01/22 documented as of this encounter
--- OUTSIDE RECORDS SUMMARY | 2024-09-07 05:09 | XMS_ITS | Encounter Summary ---
Author Organization [facility] Address [address] [place] [address] Care Team Providers Care Evp General Counsel Name Role Phone JarenbeatricedeanConnordavedexter Primary Care Provider Unavailabl e Nancy Elliott DO Unavailable Unavailable Stephon Elliottabela DO Primary Care Pro vider Unavailable Shawanda Oliver MD Primary Care Provider Noah Gramajo Primary Care Provider [phone] Carmina Varela MD Primary Care Prov ider Db Martino MD Unavailable Unavailable Dario Ling Unavailable Unavailable Reason for Visit * Reason Comments E-prescribe Rx Request Encounter Details Date Type Department Care Team Description 03/29/2020 Refill Adult Medicine [address] [address] Nancy Elliott DO E-prescribe Rx Request Social [...] N/A Patients current insurance carrier is: Payor: [employer] M[employer] / Plan: [facility] / Product Type: HMO [id number] documented in this encounter Plan of Treatment [...] leg documented in this encounter Care Teams Evp General Counsel Relationship Specialty Start Date End Date Radha Mccray PCP - General 01/28/14 06/25/20 Nancy Elliott DO PCP - General Internal Medicine 06/26/20 08/23/20 Shawanda Oliver MD PCP - General Internal Medicine 08/24/20 10/31/21 Noah Parks [address] [place] [address] PCP - General Internal Medicine 11/01/21 11/25/21 Carmina Varela MD [address] [place] [address] PCP - General Internal Medicine 11/26/21 Nancy Elliott DO Internal Medicine 01/28/14 08/31/22 Db Martino MD [address] [place] [address] Specialist Cardiology 09/01/22 Dario Ling [address] [place] [address] Specialist Pulmonology 09/01/22 documented as of this encounter
--- OUTSIDE RECORDS SUMMARY | 2024-09-07 05:09 | XMS_ITS | Encounter Summary ---
Author Organization [facility] Address [address] [place] [address] Care Team Providers Care Customer Account Administrator Name Role Phone Nancy Elliott DO Unavailable Unavailable Shawanda Oliver MD Primary Care Provider Noah Gramajo Primary Care Provider [phone] Carmina Varela MD Primary Care Prov ider Db Martino MD Unavailable Unavailable Dario Ling Unavailable Unavailable Encounter Details Date Type Department Care Team Description 12/04/2020 Pet Care Assistant Report Medical Records [address] [place] [address] Abstract, Provider Social History Tobacco Use Types [...] filedocumented in this encounter Care Teams Customer Account Administrator Relationship Specialty Start Date End Date Shawanda Oliver MD PCP - General Internal Medicine 08/24/20 10/31/21 Noah Parks [address] [place] [address] PCP - General Internal Medicine 11/01/21 11/25/21 Carmina Varela MD [address] [place] [address] PCP - General Internal Medicine 11/26/21 Nancy Elliott, DO Internal Medicine 01/28/14 08/31/22 Db Martino MD [address] [place] [address] Specialist Cardiology 09/01/22 Dario Ling [address] [place] [address] Specialist Pulmonology 09/01/22 documented as of this encounter
--- OUTSIDE RECORDS SUMMARY | 2024-09-07 05:09 | XMS_ITS | Encounter Summary ---
Author Organization [facility] Address [address] [place] [address] Care Team Providers Care Hoop Maker Name Role Phone Carmina Varela MD Primary Care Prov ider Db Martino MD Unavailable Unavailable Dario Lign Unavailable Unavailable Encounter Details Date Type Department Care Team Description 02/03/2023 Stationary Plant Operators Report Medical Records [address] [place] [address] Db Martino MD Social History Tobacco Use [...] on filedocumented in this encounter Care Teams Hoop Maker Relationship Specialty Start Date End Date Carmina Varela MD [address] [place] [phone] PCP - General Internal Medicine 11/26/21 Db Martino MD [address] [place], [place] [phone] Specialist Cardiology 09/01/22 Dario Ling [address] [place] [address] Specialist Pulmonology 09/01/22 documented as of this encounter
--- OUTSIDE RECORDS SUMMARY | 2024-09-07 05:09 | XMS_ITS | Encounter Summary ---
Author Organization [facility] Address [address] [place] [address] Care Team Providers Care Molding Process Technician Name Role Phone Nancy Elliott DO Unavailable Unavailable Shawanda Oliver MD Primary Care Provider Noah Gramajo Primary Care Provider [phone] Carmina Varela MD Primary Care Prov ider Db Martino MD Unavailable Unavailable Dario Ling Unavailable Unavailable Encounter Details Date Type Department Care Team Description 08/15/2021 Customer Care Representative Report Medical Records [address] [place] [address] Db Martino MD Social History Tobacco Use [...] on filedocumented in this encounter Care Teams Molding Process Technician Relationship Specialty Start Date End Date Shawanda Oliver MD PCP - General Internal Medicine 08/24/20 10/31/21 Noah Parks [address] [place] [address] PCP - General Internal Medicine 11/01/21 11/25/21 Carmina Varela MD [address] [place] [address] PCP - General Internal Medicine 11/26/21 Nancy Elliott, DO Internal Medicine 01/28/14 08/31/22 Db Martino MD [address] [place] [address]61 Specialist Cardiology 09/01/22 Dario Ling [address] [place] [address] Specialist Pulmonology 09/01/22 documented as of this encounter
--- OUTSIDE RECORDS SUMMARY | 2024-09-07 05:09 | XMS_ITS | Encounter Summary ---
Author Organization [facility] Address [address] [place] [address] Care Team Providers Care Branding Machine Operator Name Role Phone Radha Mccray Primary Care Provider Unavailabl e Nancy Elliott DO Unavailable Unavailable Nancy Elliott DO Primary Care Pro vider Unavailable Shawanda Oliver MD Primary Care Provider Noah Gramajo Primary Care Provider [phone] Carmina Varela MD Primary Care Prov ider Db Martino MD Unavailable Unavailable Dario Ling Unavailable Unavailable Encounter Details Date Type Department Care Team Description 01/07/2017 Hospital Medical Records [address] [place] [address] Nancy Elliott DO Social History Tobacco Use [...] on filedocumented in this encounter Care Teams Branding Machine Operator Relationship Specialty Start Date End Date Radha Mccray PCP - General 01/28/14 06/25/20 Nancy Elliott DO PCP - General Internal Medicine 06/26/20 08/23/20 Shawanda Oliver MD PCP - General Internal Medicine 08/24/20 10/31/21 Noah Parks [address] [place] [address]20 PCP - General Internal Medicine 11/01/21 11/25/21 Carmina Varela MD [address] [place] [address] 00067 PCP - General Internal Medicine 11/26/21 Nancy Elliott DO Internal Medicine 01/28/14 08/31/22 Db Martino MD [address] [place] [address] 27112 Specialist Cardiology 09/01/22 Dario Ling [address] [place] [address] 41938 Specialist Pulmonology 09/01/22 documented as of this encounter
--- OUTSIDE RECORDS SUMMARY | 2024-09-07 05:09 | XMS_ITS | Encounter Summary ---
Author Organization [facility] Address [address] [place] [address] Care Team Providers Care Qa Architect Name Role Phone Nancy Elliott DO Unavailable Unavailable Shawanda Oliver MD Primary Care Provider Noah Gramajo Primary Care Provider [phone] Carmina Varela MD Primary Care Prov ider Db Martino MD Unavailable Unavailable Dario Ling Unavailable Unavailable Encounter Details Date Type Department Care Team Description 01/09/2021 Infusion Nurse Report Medical Records [address] [place] [address] Abstract, Provider Social History Tobacco Use Types [...] on filedocumented in this encounter Care Teams Qa Architect Relationship Specialty Start Date End Date Shawanda Oliver MD PCP - General Internal Medicine 08/24/20 10/31/21 Noah Parks [address] [place] [address] 03907 PCP - General Internal Medicine 11/01/21 11/25/21 Carmina Varela MD [address] [place] [address] 49145 PCP - General Internal Medicine 11/26/21 Nancy Elliott, DO Internal Medicine 01/28/14 08/31/22 Db Martino MD [address] [place] [address] 81540 Specialist Cardiology 09/01/22 Dario Ling [address] [place] [address] 65868 Specialist Pulmonology 09/01/22 documented as of this encounter
--- OUTSIDE RECORDS SUMMARY | 2024-09-07 05:09 | XMS_ITS | Encounter Summary ---
Author Organization [facility] Address [address] [place] [address] Care Team Providers Care Farm Or Ranch Animal Caretaker Name Role Phone Radha Mccray Primary Care Provider Unavailabl e Stephon Elliottabela DO Unavailable Unavailable Mariamakoraviak Micko Nancy DO Primary Care Pro vider Unavailable Shawanda Oliver MD Primary Care Provider Noah Gramajo Primary Care Provider [phone] Carmina Varela MD Primary Care Prov ider Db Martino MD Unavailable Unavailable Dario Ling Unavailable Unavailable Encounter Details Date Type Department Care Team Description 03/28/2018 Hospital Medical Records [address] [place] [address] Social History Tobacco Use Types Packs/Day Years [...] on filedocumented in this encounter Care Teams Farm Or Ranch Animal Caretaker Relationship Specialty Start Date End Date Radha Mccray PCP - General 01/28/14 06/25/20 Nancy Elliott DO PCP - General Internal Medicine 06/26/20 08/23/20 Shawanda Oliver MD PCP - General Internal Medicine 08/24/20 10/31/21 Noah Parks [address] [place] [address] 11114 PCP - General Internal Medicine 11/01/21 11/25/21 Carmina Varela MD [address] [place] [address] 70736 PCP - General Internal Medicine 11/26/21 Nancy Elliott, Internal Medicine 01/28/14 08/31/22 Db Martino MD [address] [place] [address] 10106 Specialist Cardiology 09/01/22 Dario Ling [address] [place] [address] 89720 Specialist Pulmonology 09/01/22 documented as of this encounter
--- OUTSIDE RECORDS SUMMARY | 2024-09-07 05:09 | XMS_ITS | Encounter Summary ---
Author Organization [facility] Address [address] [place] [address] Care Team Providers Care Farm Machinery Set Up Mechanic Name Role Phone Radha Mccray Primary Care Provider Unavailabl e Krakoruslan Colasacco Nancy DO Unavailable Unavailable [place]owi[place] Colasacco, Nancy DO Primary Care Pro vider Unavailable Shawanda Oliver MD Primary Care Provider Noah Gramajo Primary Care Provider [phone] Carmina Varela MD Primary Care Prov ider Db Martino MD Unavailable Unavailable Dario Ling Unavailable Unavailable Encounter Details Date Type Department Care Team Description 09/01/2016 Hospital Medical Records [address] [place] [address] Kobe Duggan Social History Tobacco Use Types [...] filedocumented in this encounter Care Teams Farm Machinery Set Up Mechanic Relationship Specialty Start Date End Date Radha Mccray PCP - General 01/28/14 06/25/20 Nancy Elliott DO PCP - General Internal Medicine 06/26/20 08/23/20 Shawanda Oliver MD PCP - General Internal Medicine 08/24/20 10/31/21 Noah Parks [address] [place] [address] 38658 PCP - General Internal Medicine 11/01/21 11/25/21 Carmina Varela MD [address] [place] [address] PCP - General Internal Medicine 11/26/21 Nancy Elliott, DO Internal Medicine 01/28/14 08/31/22 Db Martino MD [address] [place] [address] 55343 Specialist Cardiology 09/01/22 Dario Ling [address] [place] [address] 95524 Specialist Pulmonology 09/01/22 documented as of this encounter
--- OUTSIDE RECORDS SUMMARY | 2024-09-07 05:09 | XMS_ITS | Encounter Summary ---
Author Organization [facility] Address [address] [place] [address] Care Team Providers Care Blueprint Trimmer Name Role Phone Radha Mccray Primary Care Provider Unavailabl e Nancy Elliott DO Unavailable Unavailable Stephon Elliottabela DO Primary Care Pro vider Unavailable Shawanda Oliver MD Primary Care Provider Noah Gramajo Primary Care Provider [phone] Carmina Varela MD Primary Care Prov ider Db Martino MD Unavailable Unavailable Dario Ling Unavailable Unavailable Reason for Visit * Reason Onset Date Comments PT-1 04/30/2018 Encounter Details Date Type Department Care Team Description 04/30/2018 Telephone Adult Medicine [address] [address] Nancy Elliott DO PT-1 Social History Tobacco [...] M.A. - 05/11/2018 2:44 PM EST Tracking #[id number] * Telephone Encounter - Kassy Pimentel - 05/05/2018 12:54 PM EST Patient is calling about the status of this, id#: [id number] * Telephone Encounter - Melinda Garcia - 04/30/2018 4:14 PM EST 09/01/17 [facility] [place] will now be included in this workflow: Verify and document patients [place] Health insurance ID # (NOT [facility] ID): [id number] Payor: [employer] FFS / Plan: [employer] / Product Type: MEDICAID RISK Patient mailing address: [address] [place] [address] Pt. demographics verified? YES If not accurate, update registration. Is this a NEW request or a RENEWAL? New Name of treating facility: [facility] Name (first & last) of treating provider? required : Nancy Mckeon What is the medical reason why the patient is seeing the above provider? Hospital follow up Address/Zip code for treating provider: [address] [place] [address] Phone # for treating provider: [phone] Is the provider in the [facility] network (do they accept [place] Health [...] filedocumented in this encounter Care Teams Blueprint Trimmer Relationship Specialty Start Date End Date Radha Mccray PCP - General 01/28/14 06/25/20 Nancy Elliott DO PCP - General Internal Medicine 06/26/20 08/23/20 Shawanda Oliver MD PCP - General Internal Medicine 08/24/20 10/31/21 Noah Parks [address] [place] [address] PCP - General Internal Medicine 11/01/21 11/25/21 Carmina Varela MD [address] [place] [address] 20586 PCP - General Internal Medicine 11/26/21 Nancy Elliott DO Internal Medicine 01/28/14 08/31/22 Db Martino MD [address] [place] [address] 49272 Specialist Cardiology 09/01/22 Dario Ling [address] [place] [address] 46346 Specialist Pulmonology 09/01/22 documented as of this encounter
--- OUTSIDE RECORDS SUMMARY | 2024-09-07 05:09 | XMS_ITS | Encounter Summary ---
Author Organization [facility] Address [address] [place] [address] Care Team Providers Care Care Consultant Name Role Phone Radha Mccray Primary Care Provider Unavailabl e Krakowifranklin Colasacco, Nancy DO Unavailable Unavailable [place]rakowiak Colasacco, Nancy DO Primary Care Pro vider Unavailable Shawanda Oliver MD Primary Care Provider Noah Gramajo Primary Care Provider [phone] Carmina Varela MD Primary Care Prov ider Db Martino MD Unavailable Unavailable Dario Ling Unavailable Unavailable Encounter Details Date Type Department Care Team Description 09/15/2016 SCAN Medical Records [address] [place] [address] Abstract, Provider Social History Tobacco Use Types [...] on filedocumented in this encounter Care Teams Care Consultant Relationship Specialty Start Date End Date Shazia Gerrydexter PCP - General 01/28/14 06/25/20 Nancy Elliott DO PCP - General Internal Medicine 06/26/20 08/23/20 Shawanda Oliver MD PCP - General Internal Medicine 08/24/20 10/31/21 Noah Parks [address] [place] [address]77 PCP - General Internal Medicine 11/01/21 11/25/21 Carmina Varela MD [address] [place] [address] PCP - General Internal Medicine 11/26/21 Nancy Elliott DO Internal Medicine 01/28/14 08/31/22 Db Martino MD [address] [place] [address] 82085 Specialist Cardiology 09/01/22 Dario Ling [address] [place] [address] 34267 Specialist Pulmonology 09/01/22 documented as of this encounter
--- OUTSIDE RECORDS SUMMARY | 2024-09-07 05:09 | XMS_ITS | Encounter Summary ---
Author Organization [facility] Address [address] [place] [address] Care Team Providers Care Senior Physical Therapist Name Role Phone Carmina Varela MD Primary Care Prov ider Db Martino MD Unavailable Unavailable Dario Ling Unavailable Unavailable Encounter Details Date Type Department Care Team Description 01/30/2023 Metal Buggy Operator Report Medical Records [address] [place] [address] Mariel Arellano FNP Social History Tobacco Use [...] filedocumented in this encounter Care Teams Senior Physical Therapist Relationship Specialty Start Date End Date Carmina Varela MD [address] [place] [address] 06083 PCP - General Internal Medicine 11/26/21 Db Martino MD [address] [place], [place] [phone] Specialist Cardiology 09/01/22 Dario Ling [address] [place] [address] Specialist Pulmonology 09/01/22 documented as of this encounter
--- OUTSIDE RECORDS SUMMARY | 2024-09-07 05:09 | XMS_ITS | Encounter Summary ---
Author Organization [facility] Address [address] [place] [address] Care Team Providers Care Data Processor Name Role Phone Radha Mccray Primary Care Provider Unavailabl e Krakoruslan Colasacco Nancy DO Unavailable Unavailable [place]owiak Colasacco, Nancy DO Primary Care Pro vider Unavailable Shawanda Oliver MD Primary Care Provider Noah Gramajo Primary Care Provider [phone] Carmina Varela MD Primary Care Prov ider Db Martino MD Unavailable Unavailable Dario Ling Unavailable Unavailable Encounter Details Date Type Department Care Team Description 02/17/2017 Protein Specialist Report Medical Records [address] [place] [address] Sandra Benavides MD Social History Tobacco Use [...] filedocumented in this encounter Care Teams Data Processor Relationship Specialty Start Date End Date Radha Mccray PCP - General 01/28/14 06/25/20 Nancy Elliott DO PCP - General Internal Medicine 06/26/20 08/23/20 Shawanda Oliver MD PCP - General Internal Medicine 08/24/20 10/31/21 Noah Parks [address] [place] [address] 82503 PCP - General Internal Medicine 11/01/21 11/25/21 Carmina Varela MD [address] [place] [address] 94038 PCP - General Internal Medicine 11/26/21 Nancy Elliott, Internal Medicine 01/28/14 08/31/22 Db Martino MD [address] [place] [address] 61616 Specialist Cardiology 09/01/22 Dario Ling [address] [place] [address] 77124 Specialist Pulmonology 09/01/22 documented as of this encounter
--- OUTSIDE RECORDS SUMMARY | 2024-09-07 05:09 | XMS_ITS | Encounter Summary ---
Author Organization [facility] Address [address] [place] [address] Care Team Providers Care Breakfast Server Name Role Phone Carmina Varela MD Primary Care Prov ider Db Martino MD Unavailable Unavailable Dario Ling Unavailable Unavailable Encounter Details Date Type Department Care Team Description 11/24/2022 Chief Safety Officer Report Medical Records [address] [place] [address] Db Martino MD Social History Tobacco Use [...] on filedocumented in this encounter Care Teams Breakfast Server Relationship Specialty Start Date End Date Carmina Varela MD [address] [place], [place] [phone] PCP - General Internal Medicine 11/26/21 Db Martino MD [address] [place], [place] [phone] Specialist Cardiology 09/01/22 Dario Ling [address] [place] [address] Specialist Pulmonology 09/01/22 documented as of this encounter
--- OUTSIDE RECORDS SUMMARY | 2024-09-07 05:09 | XMS_ITS | Encounter Summary ---
Author Organization [facility] Address [address] [place] [address] Care Team Providers Care Camera Machinist Name Role Phone Radha Mccray Primary Care Provider Unavailabl e Krakoruslan Colasacco, Nancy DO Unavailable Unavailable Krakowiak Colasacco, Nancy DO Primary Care Pro vider Unavailable Shawanda Oliver MD Primary Care Provider Noah Gramajo Primary Care Provider [phone] Carmina Varela MD Primary Care Prov ider Db Martino MD Unavailable Unavailable Dario Ling Unavailable Unavailable Encounter Details Date Type Department Care Team Description 10/24/2019 Director Sterile Processing Report Medical Records [address] [place] [address] Dario Ling Social History Tobacco Use Types [...] on filedocumented in this encounter Care Teams Camera Machinist Relationship Specialty Start Date End Date Radha Mccray PCP - General 01/28/14 06/25/20 Nancy Elliott DO PCP - General Internal Medicine 06/26/20 08/23/20 Shawanda Oliver MD PCP - General Internal Medicine 08/24/20 10/31/21 Noah Parks [address] [place] [address] 12982 PCP - General Internal Medicine 11/01/21 11/25/21 Carmina Varela MD [address] [place] [address] 71931 PCP - General Internal Medicine 11/26/21 Nancy Elliott DO Internal Medicine 01/28/14 08/31/22 Db Martino MD [address] [place] [address] 93613 Specialist Cardiology 09/01/22 Dario Ling [address] [place] [address] 99437 Specialist Pulmonology 09/01/22 documented as of this encounter
--- OUTSIDE RECORDS SUMMARY | 2024-09-07 05:09 | XMS_ITS | Encounter Summary ---
Author Organization [facility] Address [address] [place] [address] Care Team Providers Care Rotary Drier Name Role Phone Radha Mccray Primary Care Provider Unavailabl e Krakoruslan Colasacco Nancy DO Unavailable Unavailable [place]rakowiak Colasacco, Nancy DO Primary Care Pro vider Unavailable Shawanda Oliver MD Primary Care Provider Noah Gramajo Primary Care Provider [phone] Carmina Varela MD Primary Care Prov ider Db Martino MD Unavailable Unavailable Dario Ling Unavailable Unavailable Encounter Details Date Type Department Care Team Description 12/02/2017 Hospital Medical Records [address] [place] [address] Daria Cardona Social History Tobacco Use Types [...] on filedocumented in this encounter Care Teams Rotary Drier Relationship Specialty Start Date End Date Radha Mccray PCP - General 01/28/14 06/25/20 Nancy Elliott DO PCP - General Internal Medicine 06/26/20 08/23/20 Shawanda Oliver MD PCP - General Internal Medicine 08/24/20 10/31/21 Noah Parks [address] [place] [address] 31038 PCP - General Internal Medicine 11/01/21 11/25/21 Carmina Varela MD [address] [place] [address] 75678 PCP - General Internal Medicine 11/26/21 Nancy Elliott, Internal Medicine 01/28/14 08/31/22 Db Martino MD [address] [place] [address] 75565 Specialist Cardiology 09/01/22 Dario Ling [address] [place] [address] 02354 Specialist Pulmonology 09/01/22 documented as of this encounter
--- OUTSIDE RECORDS SUMMARY | 2024-09-07 05:09 | XMS_ITS | Encounter Summary ---
Author Organization [facility] Address [address] [place] [address] Care Team Providers Care Traveling Representative Name Role Phone Radha Mccray Primary Care Provider Unavailabl e Mariamakoruslan Colbarrettcco Nancy DO Unavailable Unavailable Krakowiak Colasacco Nancy DO Primary Care Pro vider Unavailable Shawanda Oliver MD Primary Care Provider Noah Gramajo Primary Care Provider [phone] Carmina Varela MD Primary Care Prov ider Db Martino MD Unavailable Unavailable Dario Ling Unavailable Unavailable Encounter Details Date Type Department Care Team Description 08/31/2016 Hospital Medical Records [address] [place] [address] Leoncio Olvera MD Social History Tobacco Use [...] on filedocumented in this encounter Care Teams Traveling Representative Relationship Specialty Start Date End Date Radha Mccray PCP - General 01/28/14 06/25/20 Nancy Elliott DO PCP - General Internal Medicine 06/26/20 08/23/20 Shawanda Oliver MD PCP - General Internal Medicine 08/24/20 10/31/21 Noah Parks [address] [place] [address] 63957 PCP - General Internal Medicine 11/01/21 11/25/21 Carmina Varela MD [address] [place] [address] 32784 PCP - General Internal Medicine 11/26/21 Nancy Elliott, Internal Medicine 01/28/14 08/31/22 Db Martino MD [address] [place] [address] 47152 Specialist Cardiology 09/01/22 Dario Ling [address] [place] [address] 01227 Specialist Pulmonology 09/01/22 documented as of this encounter
--- OUTSIDE RECORDS SUMMARY | 2024-09-07 05:09 | XMS_ITS | Encounter Summary ---
Author Organization [facility] Address [address] [place] [address] Care Team Providers Care Decorating Kiln Operator Name Role Phone Nancy lEliott DO Unavailable Unavailable Shawanda Oliver MD Primary Care Provider Noah Gramajo Primary Care Provider [phone] Carmina Varela MD Primary Care Prov ider Db Martino MD Unavailable Unavailable Dario Ling Unavailable Unavailable Encounter Details Date Type Department Care Team Description 10/01/2021 Business Doc Medical Records [address] [place] [address] Abstract, Provider Social History Tobacco Use Types [...] on filedocumented in this encounter Care Teams Decorating Kiln Operator Relationship Specialty Start Date End Date Shawanda Oliver MD PCP - General Internal Medicine 08/24/20 10/31/21 Noah Parks [address] [place] [address] 08933 PCP - General Internal Medicine 11/01/21 11/25/21 Carmina Varela MD [address] [place] [address] 92642 PCP - General Internal Medicine 11/26/21 Nancy Elliott, DO Internal Medicine 01/28/14 08/31/22 Db Martino MD [address] [place] [address] 59578 Specialist Cardiology 09/01/22 Dario Ling [address] [place] [address] 22762 Specialist Pulmonology 09/01/22 documented as of this encounter
--- OUTSIDE RECORDS SUMMARY | 2024-09-07 05:09 | XMS_ITS | Encounter Summary ---
Author Organization [facility] Address [address] [place] [address] Care Team Providers Care Motion Picture Commentator Name Role Phone Shazia Gerrydexter Primary Care Provider Unavailabl e Stephon Elliottabela DO Unavailable Unavailable Ariadne Bartono Nancy DO Primary Care Pro vider Unavailable Shawanda Oliver MD Primary Care Provider Noah Gramajo Primary Care Provider [phone] Carmina Varela MD Primary Care Prov ider Db Martino MD Unavailable Unavailable Dario Ling Unavailable Unavailable Encounter Details Date Type Department Care Team Description 08/18/2018 Orders Only Adult Medicine [address] [address] Nancy Elliott, DO Social History Tobacco Use [...] on filedocumented in this encounter Care Teams Motion Picture Commentator Relationship Specialty Start Date End Date Radha Mccray PCP - General 01/28/14 06/25/20 Nancy Elliott DO PCP - General Internal Medicine 06/26/20 08/23/20 Shawanda Oliver MD PCP - General Internal Medicine 08/24/20 10/31/21 Noah Parks [address] [place] [address] 60111 PCP - General Internal Medicine 11/01/21 11/25/21 Carmina Varela MD [address] [place] [address] 85849 PCP - General Internal Medicine 11/26/21 Nancy Elliott DO Internal Medicine 01/28/14 08/31/22 Db Martino MD [address] [place] [address] 86793 Specialist Cardiology 09/01/22 Dario Ling [address] [place] [address] 46994 Specialist Pulmonology 09/01/22 documented as of this encounter
--- OUTSIDE RECORDS SUMMARY | 2024-09-07 05:09 | XMS_ITS | Encounter Summary ---
Author Organization [facility] Address [address] [place] [address] Care Team Providers Care Military Professional Name Role Phone Nancy Elliott DO Unavailable Unavailable Shawanda Oliver MD Primary Care Provider Noah Gramajo Primary Care Provider [phone] Carmina Varela MD Primary Care Prov ider Db Martino MD Unavailable Unavailable Dario Ling Unavailable Unavailable Encounter Details Date Type Department Care Team Description 09/11/2021 [employer] Launch Commander Report Medical Records [address] [place] [address] Lacey Valle MD Social History Tobacco Use [...] filedocumented in this encounter Care Teams Military Professional Relationship Specialty Start Date End Date Shawanda Oliver MD PCP - General Internal Medicine 08/24/20 10/31/21 Noah Parks [address] [place], [place] [phone] PCP - General Internal Medicine 11/01/21 11/25/21 Carmina Varela MD [address] [place] [address] 24200 PCP - General Internal Medicine 11/26/21 Nancy Elliott, DO Internal Medicine 01/28/14 08/31/22 Db Martino MD [address] [place] [address] 30462 Specialist Cardiology 09/01/22 Dario Ling [address] [place] [address] Specialist Pulmonology 09/01/22 documented as of this encounter
--- OUTSIDE RECORDS SUMMARY | 2024-09-07 05:09 | XMS_ITS | Encounter Summary ---
Author Organization [facility] Address [address] [place] [address] Care Team Providers Care Hand Laster Name Role Phone Radha Mccray Primary Care Provider Unavailabl e Stephon Elliottabela DO Unavailable Unavailable Mariamakoraviak Micko Nancy DO Primary Care Pro vider Unavailable Shawanda Oliver MD Primary Care Provider Noah Gramajo Primary Care Provider [phone] Carmina Varela MD Primary Care Prov ider Db Martino MD Unavailable Unavailable Dario Ling Unavailable Unavailable Encounter Details Date Type Department Care Team Description 03/28/2018 Hospital Medical Records [address] [place] [address] Social History Tobacco Use Types Packs/Day Years [...] filedocumented in this encounter Care Teams Hand Laster Relationship Specialty Start Date End Date Radha Mccray PCP - General 01/28/14 06/25/20 Nancy Elliott DO PCP - General Internal Medicine 06/26/20 08/23/20 Shawanda Oliver MD PCP - General Internal Medicine 08/24/20 10/31/21 Noah Parks [address] [place] [address] 78079 PCP - General Internal Medicine 11/01/21 11/25/21 Carmina Varela MD [address] [place] [address] 33651 PCP - General Internal Medicine 11/26/21 Nancy Elliott, Internal Medicine 01/28/14 08/31/22 Db Martino MD [address] [place] [address] 39841 Specialist Cardiology 09/01/22 Dario Ling [address] [place] [address] 76060 Specialist Pulmonology 09/01/22 documented as of this encounter
--- OUTSIDE RECORDS SUMMARY | 2024-09-07 05:09 | XMS_ITS | Encounter Summary ---
Author Organization [facility] Address [address] [place] [address] Care Team Providers Care Farm Operator Name Role Phone Radha Mccray Primary Care Provider Unavailabl e Krakoruslan Colasacco Nancy DO Unavailable Unavailable [place] Colasacco, Nancy DO Primary Care Pro vider Unavailable Shawanda Oliver MD Primary Care Provider Noah Gramajo Primary Care Provider [phone] Carmina Varela MD Primary Care Prov ider Db Martino MD Unavailable Unavailable Dario Ling Unavailable Unavailable Encounter Details Date Type Department Care Team Description 02/12/2018 Dust Collector Attendant Report Medical Records [address] [place] [address] Db Martino MD Social History Tobacco Use [...] filedocumented in this encounter Care Teams Farm Operator Relationship Specialty Start Date End Date Radha Mccray PCP - General 01/28/14 06/25/20 Nancy Elliott DO PCP - General Internal Medicine 06/26/20 08/23/20 Shawanda Oliver MD PCP - General Internal Medicine 08/24/20 10/31/21 Noah Parks [address] [place] [address] 96604 PCP - General Internal Medicine 11/01/21 11/25/21 Carmina Varela MD [address] [place] [address] 63294 PCP - General Internal Medicine 11/26/21 Nancy Elliott, Internal Medicine 01/28/14 08/31/22 Db Martino MD [address] [place] [address] 67114 Specialist Cardiology 09/01/22 Dario Ling [address] [place] [address] 69290 Specialist Pulmonology 09/01/22 documented as of this encounter
--- OUTSIDE RECORDS SUMMARY | 2024-09-07 05:09 | XMS_ITS | Encounter Summary ---
Author Organization [facility] Address [address] [place] [address] Care Team Providers Care Gas And Oil Servicer Name Role Phone Radha Mccray Primary Care Provider Unavailabl e Mariamakoruslan Colasacco Nancy DO Unavailable Unavailable [place] Colasacco, Nancy DO Primary Care Pro vider Unavailable Shawanda Oliver MD Primary Care Provider Noah Gramajo Primary Care Provider [phone] Carmina Varela MD Primary Care Prov ider Db Martino MD Unavailable Unavailable Dario Ling Unavailable Unavailable Encounter Details Date Type Department Care Team Description 09/17/2016 Night Triage Doc Medical Records [address] [place] [address] Abstract, Provider Social History Tobacco Use Types [...] this encounter Care Teams Gas And Oil Servicer Relationship Specialty Start Date End Date Radha Mccray PCP - General 01/28/14 06/25/20 Nancy Elliott DO PCP - General Internal Medicine 06/26/20 08/23/20 Shawanda Oliver MD PCP - General Internal Medicine 08/24/20 10/31/21 Noah Parks [address] [place] [address] 20697 PCP - General Internal Medicine 11/01/21 11/25/21 Carmina Varela MD [address] [place] [address]2020 PCP - General Internal Medicine 11/26/21 Nancy Elliott, Internal Medicine 01/28/14 08/31/22 Db Martino MD [address] [place] [address] 14005 Specialist Cardiology 09/01/22 Dario Ling [address] [place] [address] 94847 Specialist Pulmonology 09/01/22 documented as of this encounter
--- OUTSIDE RECORDS SUMMARY | 2024-09-07 05:09 | XMS_ITS | Encounter Summary ---
Author Organization [facility] Address [address] [place] [address] Care Team Providers Care Sugar Refinery Supervisor Name Role Phone Radha Mccray Primary Care Provider Unavailabl e Mariamakoruslan Colasacco Nancy DO Unavailable Unavailable [place] Colasacco, Nancy DO Primary Care Pro vider Unavailable Shawanda Oliver MD Primary Care Provider Noah Gramajo Primary Care Provider [phone] Carmina Varela MD Primary Care Prov ider Db Martino MD Unavailable Unavailable Dario Ling Unavailable Unavailable Encounter Details Date Type Department Care Team Description 04/15/2018 Commissioned Security Officer Report Medical Records [address] [place] [address] Abstract, Provider Social History Tobacco Use Types [...] on filedocumented in this encounter Care Teams Sugar Refinery Supervisor Relationship Specialty Start Date End Date Radha Mccray PCP - General 01/28/14 06/25/20 Nancy Elliott DO PCP - General Internal Medicine 06/26/20 08/23/20 Shawanda Oliver MD PCP - General Internal Medicine 08/24/20 10/31/21 Noah Parks [address] [place] [address] 70497 PCP - General Internal Medicine 11/01/21 11/25/21 Carmina Varela MD [address] [place] [address] 18411 PCP - General Internal Medicine 11/26/21 Nancy Elliott, Internal Medicine 01/28/14 08/31/22 Db Martino MD [address] [place] [address] 83592 Specialist Cardiology 09/01/22 Dario Ling [address] [place] [address] 12995 Specialist Pulmonology 09/01/22 documented as of this encounter
--- OUTSIDE RECORDS SUMMARY | 2024-09-07 05:09 | XMS_ITS | Encounter Summary ---
Author Organization [facility] Address [address] [place] [address] Care Team Providers Care Director Of Vendor Management Name Role Phone Radha Mccray Primary Care Provider Unavailabl e Krakoruslan Colasacco, Nancy DO Unavailable Unavailable [place]rakowiak Colasacco, Nancy DO Primary Care Pro vider Unavailable Shawanda Oliver MD Primary Care Provider Noah Gramajo Primary Care Provider [phone] Carmina Varela MD Primary Care Prov ider Db Martino MD Unavailable Unavailable Dario Ling Unavailable Unavailable Encounter Details Date Type Department Care Team Description 01/05/2018 Hospital Medical Records [address] [place] [address] Sherri Burrell Social History Tobacco Use Types [...] filedocumented in this encounter Care Teams Director Of Vendor Management Relationship Specialty Start Date End Date Radha Mccray PCP - General 01/28/14 06/25/20 Nancy Elliott DO PCP - General Internal Medicine 06/26/20 08/23/20 Shawanda Oliver MD PCP - General Internal Medicine 08/24/20 10/31/21 Noah Parks [address] [place] [address] 05499 PCP - General Internal Medicine 11/01/21 11/25/21 Carmina Varela MD [address] [place] [address] 96662 PCP - General Internal Medicine 11/26/21 Nancy Elliott, DO Internal Medicine 01/28/14 08/31/22 Db Martino MD [address] [place] [address] 50551 Specialist Cardiology 09/01/22 Dario Ling [address] [place] [address] 32869 Specialist Pulmonology 09/01/22 documented as of this encounter
--- OUTSIDE RECORDS SUMMARY | 2024-09-07 05:09 | XMS_ITS | Encounter Summary ---
Author Organization [facility] Address [address] [place] [address] Care Team Providers Care Steel Rule Inspector Name Role Phone Shazia Radha Primary Care Provider Unavailabl e Nancy Elliott DO Unavailable Unavailable Stephon Elliottabela DO Primary Care Pro vider Unavailable Shawanda Oliver MD Primary Care Provider Noah Gramajo Primary Care Provider [phone] Carmina Varela MD Primary Care Prov ider Db Martino MD Unavailable Unavailable Dario Ling Unavailable Unavailable Reason for Visit * Reason Onset Date Comments Faxed Order 01/18/2018 Encounter Details Date Type Department Care Team Description 01/18/2018 Telephone Adult Medicine [address] [address] Nancy Elliott DO Faxed Order Social History [...] Please sign and fax back orders to [facility] Fax [phone] documented in this encounter Plan of Treatment Not on file documented as of this encounter Visit Diagnoses Not on filedocumented in this encounter Care Teams Steel Rule Inspector Relationship Specialty Start Date End Date Radha Mccray PCP - General 01/28/14 06/25/20 Nancy Elliott DO PCP - General Internal Medicine 06/26/20 08/23/20 Shawanda Oliver MD PCP - General Internal Medicine 08/24/20 10/31/21 Noah Parks [address] [place] [address] 26492 PCP - General Internal Medicine 11/01/21 11/25/21 Carmina Varela MD [address] [place] [address] 85369 PCP - General Internal Medicine 11/26/21 Nancy Elliott DO Internal Medicine 01/28/14 08/31/22 Db Martino MD [address] [place] [address] 63900 Specialist Cardiology 09/01/22 Dario Ling [address] [place], [place] [phone] Specialist Pulmonology 09/01/22 documented as of this encounter
--- OUTSIDE RECORDS SUMMARY | 2024-09-07 05:09 | XMS_ITS | Encounter Summary ---
Author Organization [facility] Address [address] [place] [address] Care Team Providers Care Drum Saw Operator Name Role Phone Radha Mccray Primary Care Provider Unavailabl e Krakoruslan Colasacco Nancy DO Unavailable Unavailable [place] Colasacco, Nancy DO Primary Care Pro vider Unavailable Shawanda Oliver MD Primary Care Provider Noah Gramajo Primary Care Provider [phone] Carmina Varela MD Primary Care Prov ider Db Martino MD Unavailable Unavailable Dario Ling Unavailable Unavailable Encounter Details Date Type Department Care Team Description 12/30/2017 Hospital Medical Records [address] [place] [address] Man Corado MD Social History Tobacco Use [...] on filedocumented in this encounter Care Teams Drum Saw Operator Relationship Specialty Start Date End Date Radha Mccray PCP - General 01/28/14 06/25/20 Nancy Elliott DO PCP - General Internal Medicine 06/26/20 08/23/20 Shawanda Oliver MD PCP - General Internal Medicine 08/24/20 10/31/21 Noah Parks [address] [place] [address] 72042 PCP - General Internal Medicine 11/01/21 11/25/21 Carmina Varela MD [address] [place] [address] 50309 PCP - General Internal Medicine 11/26/21 Nancy Elliott, Internal Medicine 01/28/14 08/31/22 Db Martino MD [address] [place] [address] 61625 Specialist Cardiology 09/01/22 Dario Ling [address] [place] [address] 07811 Specialist Pulmonology 09/01/22 documented as of this encounter
--- OUTSIDE RECORDS SUMMARY | 2024-09-07 05:09 | XMS_ITS | Encounter Summary ---
Author Organization [facility] Address [address] [place] [address] Care Team Providers Care Floral Decorator Name Role Phone Radha Mccray Primary Care Provider Unavailabl e Krakoruslan Colasacco, Nancy DO Unavailable Unavailable K[place]owiak Colasacco, Nancy DO Primary Care Pro vider Unavailable Shawanda Oliver MD Primary Care Provider Noah Gramajo Primary Care Provider [phone] Carmina Varela MD Primary Care Prov ider Db Martino MD Unavailable Unavailable Dario Ling Unavailable Unavailable Encounter Details Date Type Department Care Team Description 08/05/2016 Hospital Medical Records [address] [place] [address] Tay Booth Social History Tobacco Use Types [...] on filedocumented in this encounter Care Teams Floral Decorator Relationship Specialty Start Date End Date Radha Mccray PCP - General 01/28/14 06/25/20 Nancy Elliott DO PCP - General Internal Medicine 06/26/20 08/23/20 Shawanda Oliver MD PCP - General Internal Medicine 08/24/20 10/31/21 Noah Parks [address] [place] [address] 90508 PCP - General Internal Medicine 11/01/21 11/25/21 Carmina Varela MD [address] [place] [address] 67704 PCP - General Internal Medicine 11/26/21 Nancy Elliott, DO Internal Medicine 01/28/14 08/31/22 Db Martino MD [address] [place] [address] 99822 Specialist Cardiology 09/01/22 Dario Ling [address] [place] [address] 23448 Specialist Pulmonology 09/01/22 documented as of this encounter
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
--- OUTSIDE RECORDS SUMMARY | 2024-09-07 05:09 | XMS_ITS | Encounter Summary ---
Author Organization [facility] Address [address] [place] [address] Care Team Providers Care Life Advisor Name Role Phone Radha Mccray Primary Care Provider Unavailabl e Nancy Elliott DO Unavailable Unavailable Nancy Elliott DO Primary Care Pro vider Unavailable Shawanda Oliver MD Primary Care Provider Noah Gramajo Primary Care Provider [phone] Carmina Varela MD Primary Care Prov ider Db Martino MD Unavailable Unavailable Dario Ling Unavailable Unavailable Reason for Referral * Non JEFFERY (Routine) - Authorized/Booked Specialty Diagnoses / Procedures Referred By Mitra pelaez Referred To Contact Internal Medicine / Adult Med Procedures REFERRAL TO [facility] Nancy Elliott DO [address] [place] [address] [facility] [address] [place] [address] Referral ID Status Reason Start Date Expiration Date V isits Requested Visits Authorized [id number] Authorized/B ooked 11/23/2018 11/23/2019 1 1 Encounter Details Date Type Department Care Team Description 11/23/2018 Orders Only Adult Medicine [address] [address] Nancy Elliott DO Social History Tobacco Use [...] filedocumented in this encounter Care Teams Life Advisor Relationship Specialty Start Date End Date Radha Mccray PCP - General 01/28/14 06/25/20 Nancy Elliott DO PCP - General Internal Medicine 06/26/20 08/23/20 Shawanda Oliver MD PCP - General Internal Medicine 08/24/20 10/31/21 Noah Parks [address] [place] [address] 68486 PCP - General Internal Medicine 11/01/21 11/25/21 Carmian Varela MD [address] [place] [address] 43801 PCP - General Internal Medicine 11/26/21 Nancy Elliott DO Internal Medicine 01/28/14 08/31/22 Db Martino MD [address] [place] [address] 66720 Specialist Cardiology 09/01/22 Dario Ling [address] [place] [address] 34962 Specialist Pulmonology 09/01/22 documented as of this encounter
--- OUTSIDE RECORDS SUMMARY | 2024-09-07 05:09 | XMS_ITS | Encounter Summary ---
Author Organization [facility] Address [address] [place] [address] Care Team Providers Care Edi Architect Name Role Phone Radha Mccray Primary Care Provider Unavailabl e Mariamakoruslan Colbarrettcco Nancy DO Unavailable Unavailable [place] Colasacco, Nancy DO Primary Care Pro vider Unavailable Shawanda Oliver MD Primary Care Provider Noah Gramajo Primary Care Provider [phone] Carmina Varela MD Primary Care Prov ider Db Martino MD Unavailable Unavailable Dario Ling Unavailable Unavailable Encounter Details Date Type Department Care Team Description 09/01/2018 Transfer Records Medical Records [address] [place] [address] Abstract, Provider Social History Tobacco Use Types [...] on filedocumented in this encounter Care Teams Edi Architect Relationship Specialty Start Date End Date Radha Mccray PCP - General 01/28/14 06/25/20 Nancy Elliott DO PCP - General Internal Medicine 06/26/20 08/23/20 Shawanda Oliver MD PCP - General Internal Medicine 08/24/20 10/31/21 Noah Parks [address] [place] [address] PCP - General Internal Medicine 11/01/21 11/25/21 Carmina Varela MD [address] [place] [address] 40628 PCP - General Internal Medicine 11/26/21 Nancy Elliott, Internal Medicine 01/28/14 08/31/22 Db Martino MD [address] [place] [address] 80947 Specialist Cardiology 09/01/22 Dario Ling [address] [place] [address] 64196 Specialist Pulmonology 09/01/22 documented as of this encounter
--- OUTSIDE RECORDS SUMMARY | 2024-09-07 05:09 | XMS_ITS | Encounter Summary ---
Author Organization [facility] Address [address] [place] [address] Care Team Providers Care After School Coordinator Name Role Phone Shazia Gerrydexter Primary Care Provider Unavailabl e Krakoruslan Colbarrettcco, Nancy DO Unavailable Unavailable Krakowiak Colasacco, Nancy DO Primary Care Pro vider Unavailable Shawanda Oliver MD Primary Care Provider Noah Gramajo Primary Care Provider [phone] Carmina Varela MD Primary Care Prov ider Db Martino MD Unavailable Unavailable Dario Ling Unavailable Unavailable Reason for Visit * Reason Onset Date Comments Cough 11/24/2018 Wheezing 11/24/2018 Encounter Details Date Type Department Care Team Description 11/24/2018 Telephone Adult Medicine [address] [address] Lor Palencia PA-C Cough; Wheezing Social History [...] Mckeon Payor: [employer] [employer] FFS / Plan: [employer] [facility] / Product Type: MEDICAID RISK documented in this encounter Plan of Treatment Not on file documented as of this encounter Visit Diagnoses Not on filedocumented in this encounter Care Teams After School Coordinator Relationship Specialty Start Date End Date Radha Mccray PCP - General 01/28/14 06/25/20 Nancy Elliott DO PCP - General Internal Medicine 06/26/20 08/23/20 Shawanda Oliver MD PCP - General Internal Medicine 08/24/20 10/31/21 Noah Parks [address] [place] [address] 10140 PCP - General Internal Medicine 11/01/21 11/25/21 Carmina Varela MD [address] [place] [address] 05399 PCP - General Internal Medicine 11/26/21 Nancy Elliott, DO Internal Medicine 01/28/14 08/31/22 Db Martino MD [address] [place] [address] 66384 Specialist Cardiology 09/01/22 Dario Ling [address] [place] [address] 84095 Specialist Pulmonology 09/01/22 documented as of this encounter
--- OUTSIDE RECORDS SUMMARY | 2024-09-07 05:09 | XMS_ITS | Encounter Summary ---
Author Organization [facility] Address [address] [place] [address] Care Team Providers Care Senior Java J2Ee Developer Name Role Phone Nancy Elliott DO Unavailable Unavailable Shawanda Oliver MD Primary Care Provider Noah Gramajo Primary Care Provider [phone] Carmina Varela MD Primary Care Prov ider Db Martino MD Unavailable Unavailable Dario Ling Unavailable Unavailable Encounter Details Date Type Department Care Team Description 04/04/2021 Refractory Bricklayer Report Medical Records [address] [place] [address] Db Martino MD Social History Tobacco Use [...] have Coronavirus / COVID-19? No / Unsure 03/13/2021 8:12 AM EST documented as of this encounter Plan of Treatment Not on file documented as of this encounter Visit Diagnoses Not on filedocumented in this encounter Care Teams Senior Java J2Ee Developer Relationship Specialty Start Date End Date Shawanda Oliver MD PCP - General Internal Medicine 08/24/20 10/31/21 Noah Parks [address] [place] [address] 56270 PCP - General Internal Medicine 11/01/21 11/25/21 Carmina Varela MD [address] [place] [address] 77976 PCP - General Internal Medicine 11/26/21 Nancy Elliott, DO Internal Medicine 01/28/14 08/31/22 Db Martino MD [address] [place] [address] 51672 Specialist Cardiology 09/01/22 Dario Ling [address] [place] [address] 78434 Specialist Pulmonology 09/01/22 documented as of this encounter
--- OUTSIDE RECORDS SUMMARY | 2024-09-07 05:09 | XMS_ITS | Encounter Summary ---
Author Organization [facility] Address [address] [place] [address] Care Team Providers Care Grubber Name Role Phone Shazia Gerrydexter Primary Care Provider Unavailabl e Krakowifranklin Colasacco, Nancy DO Unavailable Unavailable Krakowiak Colasacco, Nancy DO Primary Care Pro vider Unavailable Shawanda Oliver MD Primary Care Provider Noah Gramajo Primary Care Provider [phone] Carmina Varela MD Primary Care Prov ider Db Martino MD Unavailable Unavailable Dario Ling Unavailable Unavailable Encounter Details Date Type Department Care Team Description 10/23/2016 Pt. Non Urgent Medic al Question Adult Medicine [address] [address] Lor Palencia PA-C Social History Tobacco Use Types Packs/Day Years [...] as of this encounter Progress Notes * Harika Tena M.A. - 10/23/2016 1:37 PM EDTFrom: [place] Nena Castro To: Lor Palencia PA-C Sent: 10/23/2016 9:26 AM EDT Subject: seen yesterday trying to find out about the xray of my foot documented in this encounter Plan of Treatment Not on file documented as of this encounter Visit Diagnoses Not on filedocumented in this encounter Care Teams Grubber Relationship Specialty Start Date End Date Radha Mccray PCP - General 01/28/14 06/25/20 Nancy Elliott DO PCP - General Internal Medicine 06/26/20 08/23/20 Shawanda Oliver MD PCP - General Internal Medicine 08/24/20 10/31/21 Noah Parks [address] [place] [address] PCP - General Internal Medicine 11/01/21 11/25/21 Carmina Varela MD [address] [place] [address] 26012 PCP - General Internal Medicine 11/26/21 Nancy Elliott DO Internal Medicine 01/28/14 08/31/22 Db Martino MD [address] [place] [address] 50981 Specialist Cardiology 09/01/22 Dario Ling [address] [place] [address]56 Specialist Pulmonology 09/01/22 documented as of this encounter
--- OUTSIDE RECORDS SUMMARY | 2024-09-07 05:09 | XMS_ITS | Encounter Summary ---
Author Organization [facility] Address [address] [place] [address] Care Team Providers Care Certified Tumor Registrar Name Role Phone Radha Mccray Primary Care Provider Unavailabl e Krakoruslan Colasacco, Nancy DO Unavailable Unavailable Krakowiak Colasacco, Nancy DO Primary Care Pro vider Unavailable Shawanda Oliver MD Primary Care Provider Noah Gramajo Primary Care Provider [phone] Carmina Varela MD Primary Care Prov ider Db Martino MD Unavailable Unavailable Dario Ling Unavailable Unavailable Encounter Details Date Type Department Care Team Description 01/19/2017 Industrial Boilermaker Report Medical Records [address] [place] [address] Db Martino MD Social History Tobacco Use [...] filedocumented in this encounter Care Teams Certified Tumor Registrar Relationship Specialty Start Date End Date Radha Mccray PCP - General 01/28/14 06/25/20 Nancy Elliott DO PCP - General Internal Medicine 06/26/20 08/23/20 Shawanda Oliver MD PCP - General Internal Medicine 08/24/20 10/31/21 Noah Parks [address] [place] [address]70 PCP - General Internal Medicine 11/01/21 11/25/21 Carmina Varela MD [address] [place] [address] PCP - General Internal Medicine 11/26/21 Nancy Elliott, Internal Medicine 01/28/14 08/31/22 Db Martino MD [address] [place] [address] 81655 Specialist Cardiology 09/01/22 Dario Ling [address] [place] [address] 86822 Specialist Pulmonology 09/01/22 documented as of this encounter
--- OUTSIDE RECORDS SUMMARY | 2024-09-07 05:09 | XMS_ITS | Encounter Summary ---
Author Organization [facility] Address [address] [place] [address] Care Team Providers Care Warehouse Attendant Name Role Phone Nancy Elliott DO Unavailable Unavailable Shawanda Oliver MD Primary Care Provider Noah Gramajo Primary Care Provider [phone] Carmina Varela MD Primary Care Prov ider Db Martino MD Unavailable Unavailable Dario Ling Unavailable Unavailable Reason for Visit * Reason Comments E-prescribe Rx Request Encounter Details Date Type Department Care Team Description 09/13/2021 Refill Adult Medicine [address] [address] Citlalli Zhong PA-C E-prescribe Rx Request Social [...] on filedocumented in this encounter Care Teams Warehouse Attendant Relationship Specialty Start Date End Date Shawanda Oliver MD PCP - General Internal Medicine 08/24/20 10/31/21 Noah Parks [address] [place] [address] PCP - General Internal Medicine 11/01/21 11/25/21 Carmina Varela MD [address] [place] [address] PCP - General Internal Medicine 11/26/21 Nancy Elliott, DO Internal Medicine 01/28/14 08/31/22 Db Martino MD [address] [place] [address] Specialist Cardiology 09/01/22 Dario Ling [address] [place] [address] Specialist Pulmonology 09/01/22 documented as of this encounter
--- OUTSIDE RECORDS SUMMARY | 2024-09-07 05:09 | XMS_ITS | Encounter Summary ---
Author Organization [facility] Address [address] [place] [address] Care Team Providers Care Parts Salesman Name Role Phone Carmina Varela MD Primary Care Prov ider Db Martino MD Unavailable Unavailable Dario Ling Unavailable Unavailable Encounter Details Date Type Department Care Team Description 03/24/2023 Hospital Medical Records [address] [place] [address] Brandon Mack Social History Tobacco Use Types [...] on filedocumented in this encounter Care Teams Parts Salesman Relationship Specialty Start Date End Date Carmina Varela MD [address] [place] [address] [id number] PCP - General Internal Medicine 11/26/21 Db Martino MD [address] [place] [address] Specialist Cardiology 09/01/22 Dario Ling [address] [place] [address] Specialist Pulmonology 09/01/22 documented as of this encounter
--- OUTSIDE RECORDS SUMMARY | 2024-09-07 05:10 | XMS_ITS | Encounter Summary ---
Author Organization [facility] Address [address] [place] [address] Care Team Providers Care Time Clock Repairer Name Role Phone Radha Mccray Primary Care Provider Unavailabl e Nancy Elliott DO Unavailable Unavailable Nancy Elliott DO Primary Care Pro vider Unavailable Shawanda Oliver MD Primary Care Provider Noah Gramajo Primary Care Provider [phone] Carmina Varela MD Primary Care Prov ider Db Martino MD Unavailable Unavailable Dario Ling Unavailable Unavailable Reason for Visit * Reason Onset Date Comments hospital follow up 12/17/2017 [facility] notes request discharged on 12-17-17 Encounter Details Date Type Department Care Team Description 12/17/2017 Telephone Adult Medicine [address] [address] Nancy Elliott DO hospital follow up ([facility] notes request discharged on 12-17-17) Social [...] TBA Hospital/ center patient was treated at: [facility] Date of visit: 12-02-17 Was this [...] on filedocumented in this encounter Care Teams Time Clock Repairer Relationship Specialty Start Date End Date Radha Mccray PCP - General 01/28/14 06/25/20 Nancy Elliott DO PCP - General Internal Medicine 06/26/20 08/23/20 Shawanda Oliver MD PCP - General Internal Medicine 08/24/20 10/31/21 Noah Parks [address] [place] [address] PCP - General Internal Medicine 11/01/21 11/25/21 Carmina Varela MD [address] [place] [address] PCP - General Internal Medicine 11/26/21 aNncy Elliott, DO Internal Medicine 01/28/14 08/31/22 Db Martino MD [address] [place], [place] [phone] Specialist Cardiology 09/01/22 Dario Ling [address] [place] [address] Specialist Pulmonology 09/01/22 documented as of this encounter
--- OUTSIDE RECORDS SUMMARY | 2024-09-07 05:10 | XMS_ITS | Encounter Summary ---
Author Organization [facility] Address [address] [place] [address] Care Team Providers Care Computer Systems Consultant Name Role Phone Nancy Elliott DO Unavailable Unavailable Carmina Varela MD Primary Care Prov ider Db Martino MD Unavailable Unavailable Dario Ling Unavailable Unavailable Encounter Details Date Type Department Care Team Description 05/21/2022 Insurance Healthcare Consultant Report Medical Records [address] [place] [address] Dario Ling Social History Tobacco Use Types [...] on filedocumented in this encounter Care Teams Computer Systems Consultant Relationship Specialty Start Date End Date Carmina Varela MD [address] [place] [address] PCP - General Internal Medicine 11/26/21 Nancy Elliott, DO Internal Medicine 01/28/14 08/31/22 Db Martino MD [address] [place] [address] Specialist Cardiology 09/01/22 Dario Ling [address] [place], [place] [phone] Specialist Pulmonology 09/01/22 documented as of this encounter
--- OUTSIDE RECORDS SUMMARY | 2024-09-07 05:10 | XMS_ITS | Encounter Summary ---
Author Organization [facility] Address [address] [place] [address] Care Team Providers Care Combatant Swimmer Name Role Phone Shazia Gerrydexter Primary Care Provider Unavailabl e Krakow[place]ranklin Colasacco, Nancy DO Unavailable Unavailable [place] Colasacco, Nancy DO Primary Care Pro vider Unavailable Shawanda Oliver MD Primary Care Provider Noah Gramajo Primary Care Provider [phone] Carmina Varela MD Primary Care Prov ider Db Martino MD Unavailable Unavailable Dario Ling Unavailable Unavailable Reason for Visit * Reason Onset Date Comments Walk In 03/12/2019 flu symptoms 03/12/2019 Encounter Details Date Type Department Care Team Description 03/12/2019 Telephone Adult Medicine [address] [address] Nino Cui MD Walk In; flu symptoms [...] on filedocumented in this encounter Care Teams Combatant Swimmer Relationship Specialty Start Date End Date Radha Mccray PCP - General 01/28/14 06/25/20 Nancy Elliott DO PCP - General Internal Medicine 06/26/20 08/23/20 Shawanda Oliver MD PCP - General Internal Medicine 08/24/20 10/31/21 Noah Parks [address] [place] [address] PCP - General Internal Medicine 11/01/21 11/25/21 Carmina Varela MD [address] [place] [address] PCP - General Internal Medicine 11/26/21 Nancy Elliott, DO Internal Medicine 01/28/14 08/31/22 Db Martino MD [address] [place], [place] [phone] Specialist Cardiology 09/01/22 Dario Ling [address] [place] [address] Specialist Pulmonology 09/01/22 documented as of this encounter
--- OUTSIDE RECORDS SUMMARY | 2024-09-07 05:10 | XMS_ITS | Encounter Summary ---
Author Organization [facility] Address [address] [place] [address] Care Team Providers Care Loss Prevention/Safety District Manager Name Role Phone Radha Mccray Primary Care Provider Unavailabl e [place] Colasacco, Nancy DO Unavailable Unavailable [place] Colasacco, Nancy DO Primary Care Pro vider Unavailable Shawanda Oliver MD Primary Care Provider Noah Gramajo Primary Care Provider [phone] Carmina Varela MD Primary Care Prov ider Db Martino MD Unavailable Unavailable Dario Ling Unavailable Unavailable Encounter Details Date Type Department Care Team Description 04/19/2019 Die Tripper Report Medical Records [address] [place] [address] Dario Ling Social History Tobacco Use Types [...] on filedocumented in this encounter Care Teams Loss Prevention/Safety District Manager Relationship Specialty Start Date End Date Radha Mccray PCP - General 01/28/14 06/25/20 Nancy Elliott DO PCP - General Internal Medicine 06/26/20 08/23/20 Shawanda Oliver MD PCP - General Internal Medicine 08/24/20 10/31/21 Noah Parks [address] [place] [address] PCP - General Internal Medicine 11/01/21 11/25/21 Carmina Varela MD [address] [place] [address] PCP - General Internal Medicine 11/26/21 Nancy Elliott DO Internal Medicine 01/28/14 08/31/22 Db Martino MD [address] [place] [address] Specialist Cardiology 09/01/22 Dario Ling [address] [place] [address] Specialist Pulmonology 09/01/22 documented as of this encounter
--- OUTSIDE RECORDS SUMMARY | 2024-09-07 05:10 | XMS_ITS | Encounter Summary ---
Author Organization [facility] Address [address] [place] [address] Care Team Providers Care Asbestos Brake Lining Finisher Name Role Phone Radha Mccray Primary Care Provider Unavailabl e [place] Colasacco Nancy DO Unavailable Unavailable [place] Colasacco, Nancy DO Primary Care Pro vider Unavailable Shawanda Oliver MD Primary Care Provider Noah Gramajo Primary Care Provider [phone] Carmina Varela MD Primary Care Prov ider Db Martino MD Unavailable Unavailable Dario Ling Unavailable Unavailable Encounter Details Date Type Department Care Team Description 12/21/2017 Rolled Seat Trimmer Report Medical Records [address] [place] [address] Db Martino MD Social History Tobacco Use [...] on filedocumented in this encounter Care Teams Asbestos Brake Lining Finisher Relationship Specialty Start Date End Date Radha Mccray PCP - General 01/28/14 06/25/20 Nancy Elliott DO PCP - General Internal Medicine 06/26/20 08/23/20 Shawanda Oliver MD PCP - General Internal Medicine 08/24/20 10/31/21 Noah Parks [address] [place] [address] PCP - General Internal Medicine 11/01/21 11/25/21 Carmina Varela MD [address] [place] [address] PCP - General Internal Medicine 11/26/21 Nancy Elloitt, Internal Medicine 01/28/14 08/31/22 Db Martino MD [address] [place] [address] Specialist Cardiology 09/01/22 Dario Ling [address] [place] [address] Specialist Pulmonology 09/01/22 documented as of this encounter
--- OUTSIDE RECORDS SUMMARY | 2024-09-07 05:10 | XMS_ITS | Encounter Summary ---
Author Organization [facility] Address [address] [place] [address] Care Team Providers Care Assistant General Manager Name Role Phone Radha Mccray Primary Care Provider Unavailabl e Ariadne Colbarbarao Nancy DO Unavailable Unavailable [place] Colasacco Nancy DO Primary Care Pro vider Unavailable Shawanda Oliver MD Primary Care Provider Noah Gramajo Primary Care Provider [phone] Carmina Varela MD Primary Care Prov ider Db Martino MD Unavailable Unavailable Dario Ling Unavailable Unavailable Encounter Details Date Type Department Care Team Description 12/10/2017 Hospital Medical Records [address] [place] [address] Smita Russell Np Social History Tobacco Use [...] on filedocumented in this encounter Care Teams Assistant General Manager Relationship Specialty Start Date End Date Radha Mccray PCP - General 01/28/14 06/25/20 Nancy Elliott DO PCP - General Internal Medicine 06/26/20 08/23/20 Shawanda Oliver MD PCP - General Internal Medicine 08/24/20 10/31/21 Noah Parks [address] [place] [address] PCP - General Internal Medicine 11/01/21 11/25/21 Carmina Varela MD [address] [place] [address] PCP - General Internal Medicine 11/26/21 Nancy Elliott, DO Internal Medicine 01/28/14 08/31/22 Db Martino MD [address] [place] [address] Specialist Cardiology 09/01/22 Dario Ling [address] [place] [address] Specialist Pulmonology 09/01/22 documented as of this encounter
--- OUTSIDE RECORDS SUMMARY | 2024-09-07 05:10 | XMS_ITS | Encounter Summary ---
Author Organization [facility] Address [address] [place] [address] Care Team Providers Care Ethylene Plant Operator Name Role Phone Radha Mccray Primary Care Provider Unavailabl e [place]lan Colasacco Nancy DO Unavailable Unavailable [place] Colasacco, Nancy DO Primary Care Pro vider Unavailable Shawanda Oliver MD Primary Care Provider Noah Gramajo Primary Care Provider [phone] Carmina Varela MD Primary Care Prov ider Db Martino MD Unavailable Unavailable aDrio Ling Unavailable Unavailable Encounter Details Date Type Department Care Team Description 03/15/2019 Scrap Cutter Report Medical Records [address] [place] [address] Sandoval Patton MD Social History Tobacco Use [...] on filedocumented in this encounter Care Teams Ethylene Plant Operator Relationship Specialty Start Date End Date Radha Mccray PCP - General 01/28/14 06/25/20 Nancy Elliott DO PCP - General Internal Medicine 06/26/20 08/23/20 Shawanda Oliver MD PCP - General Internal Medicine 08/24/20 10/31/21 Noah Parks [address] [place] [address] PCP - General Internal Medicine 11/01/21 11/25/21 Carmina Varela MD [address] [place] [address] PCP - General Internal Medicine 11/26/21 Nancy Elliott DO Internal Medicine 01/28/14 08/31/22 Db Martino MD [address] [place] [address] Specialist Cardiology 09/01/22 Dario Ling [address] [place] [address] Specialist Pulmonology 09/01/22 documented as of this encounter
[2024-09-07] MEDS: Furosemide 100 MG/10 ML VIAL 60 MG IVPUSH (05:28)
--- NOTE | 2024-09-07 05:38 | PC.NURSE ---
Dr. Alcantara is aware of WBC 18.2, per MD no blood draw of lactate and blood cultures needed at this time.
[2024-09-07] MEDS: Insulin Lispro 100 UNIT/ML 3 ML VIAL 10 UNIT SUBCUT (05:45)
[2024-09-07 05:49] LABS: Glucose, Whole Blood 464 mg/dL (60-115)
--- NOTE | 2024-09-07 05:52 | P.HPHOSP_ITS ---
History of Present Illness Date of Service: 09/07/24 Chief Complaint: Dyspnea This is a 69-year-old female with pertinent history of congestive heart failure with reduced ejection fraction, status post biventricular ICD and CardioMEMS in place, CAD status post CABG, history of PE on Xarelto, tobacco use disorder, COPD not on home oxygen, TAQUERIA on CPAP, insulin-dependent type 2 diabetes mellitus, mood disorder who presents to the emergency department for evaluation of dyspnea. Patient was recently admitted with acute hypoxemic respiratory failure due to acute decompensation of congestive heart failure and discharged on 08/30. Patient was weaned to room air upon discharge and IV Lasix was transitioned to p.o. Lasix on discharge. Patient states she started having dyspnea which was sudden in onset on the night of presentation. Patient was walking to her bathroom at night when she felt short of breath. Admits orthopnea and PND. Also admits lower extremity leg swelling. She tried her home inhaler but no relief. Continues to smoke cigarettes. Also noticed lower extremity leg swelling. Denies fever. Minimal nonproductive cough. Has associated wheezing. No chills, chest pain, palpitations, abdominal pain, changes in urinary or bowel habits. In the emergency department, imaging with cardiomegaly and pleural fluid. BNP elevated. Patient was given IV Lasix in the ER. Review of Systems 2 Cardiovascular: Cardiovascular: Reports dyspnea on exertion, Reports orthopnea and Reports paroxysmal nocturnal dyspnea Respiratory: Respiratory: Reports cough and Reports dyspnea on exertion Gastrointestinal: Gastrointestinal: Reports no additional gastrointestinal complaints Genitourinary: Genitourinary: Reports no additional female genitourinary complaints [facility] Medical History Chronic lung disease CHF (congestive heart failure) Biventricular ICD (implantable cardioverter-defibrillator) in place CHF (congestive heart failure) Sleep apnea Presence of CardioMEMS HF system Hx of myocardial infarction Anxiety and depression Osteoarthritis Fatty liver Restrictive lung disease TAQUERIA treated with BiPAP Morbid obesity CAD (coronary artery disease) Non-rheumatic aortic stenosis Atherosclerotic cardiovascular disease Acute on chronic systolic and diastolic heart failure, NYHA class 3 Leukocytosis Dyspnea Transaminitis Hypoxia Congestive heart failure TAQUERIA (obstructive sleep apnea) NSVT (nonsustained ventricular tachycardia) Cardiomyopathy Chronic systolic heart failure Diabetes mellitus HLD (hyperlipidemia) HTN (hypertension) Family History Father No problems noted. Mother No problems noted. Surgical History History of incision and drainage Status post coronary artery bypass graft Stented coronary artery Hx of CABG History of cardiac cath Hx of cardiac cath Hx of cardiac cath Hx of appendectomy History of cholecystectomy Social History Household Members: Family Household Members Other:: son and daughter in law Housing: Apartment Are you a primary regular senior care provider to a significant other at home: No Do you presently have visiting nurse or other home services: No Alcohol intake: never Comment: chronic back pain Patient Tobacco Use Status: Current everyday Tobacco user Tobacco use type: Cigarette Cigarette Packs Per Day: 0.25 Cigarettes Per Day: 5 Years Smoked: 30 Smoked in Last 30 Days: Yes e-Cigarette/Vaping Use: Never Used Second Hand Smoke Exposure: Yes Use of substances other than those prescribed or required for medical reasons: No Advance Directives: Yes Advance Directives on File: Yes Advance Directives Date on File: 11/07/22 Do you have a plan to hurt others: No Plan service: No Current occupational status: unemployed and disabled Current occupation: rt hand Meds Allergies Allergy/AdvReac Type Severity Reaction Status Date / Time No Known Allergies Allergy Verified 09/07/24 04:04 Active Medications: Current Medications Insulin Human Regular (Insulin Regular, Human 100 Unit/Ml 10 Ml Vial) 5 unit IVPUSH ONCE ONE Stop: 09/07/24 05:51 Sodium Zirconium Cyclosilicate (Sodium Zirconium Cyclosilicate 10 Gm Powd.Pack) 10 gm PO ONCE ONE Stop: 09/07/24 05:51 Home Medications ?Medication ?Instructions ?Recorded ?Confirmed ?Last Taken ?Type atorvastatin 80 mg tablet 80 mg PO BEDTIME 02/27/20 08/29/24 08/27/24 History insulin aspart U-100 100 unit/mL 1 sliding scale dose subcut TIDAC 06/26/20 06/09/24 08/26/24 History (3 mL) subcutaneous pen citalopram 20 mg tablet 20 mg PO DAILY 07/21/20 08/29/24 08/27/24 History diphenhydramine HCl 50 mg/30 mL 50 mg PO BEDTIME PRN Sleep 08/15/23 08/29/24 Unknown History oral liquid (ZzzQuil) insulin glargine 100 unit/mL (3 28 unit subcut BEDTIME 02/04/24 08/29/24 08/27/24 History mL) subcutaneous pen (Lantus Solostar U-100 Insulin) empagliflozin 25 mg tablet 25 mg PO DAILY 02/09/24 08/29/24 08/27/24 History (Jardiance) sacubitril 97 mg-valsartan 103 mg 1 tab PO BEDTIME 02/09/24 06/09/24 08/26/24 History tablet (Entresto) ipratropium 20 mcg-albuterol 100 1 puff inhalation QID PRN wheezing 03/29/24 08/29/24 Unknown History mcg/actuation mist for inhalation (Combivent Respimat) furosemide 40 mg tablet 40 mg PO BEDTIME 08/29/24 08/29/24 08/27/24 History furosemide 40 mg tablet 40 mg PO BEDTIME PRN WHEN DIRECTED 08/29/24 08/29/24 08/27/24 History BY THE [facility] furosemide 40 mg tablet 80 mg PO DAILY 08/29/24 08/29/24 08/27/24 History rivaroxaban 20 mg tablet (Xarelto) 20 mg PO BEDTIME 08/29/24 08/29/24 08/27/24 History Physical Exam 2 Vital Signs and Narrative: Vital Signs: Last Vital Signs Temp 96.1 F L 09/07/24 04:06 Pulse 109 H 09/07/24 05:18 Resp 20 09/07/24 05:18 BP 110/65 09/07/24 05:28 Pulse Ox 96 09/07/24 05:18 O2 Del Method Room Air 09/07/24 05:18 BMI result Body Mass Index 40.4 Middle-aged female lying in bed in mild distress Neck supple Regular rate and regular rhythm, S1-S2 heard Bilateral crackles and wheezing present with tachypnea Abdomen soft nontender, no guarding, no rigidity Patient is awake, alert and oriented to self, place, time and person ; no focal motor deficit Psych: Normal mood Bilateral pedal edema present Results Labs 09/07/24 04:32 09/07/24 04:32 Labs: Laboratory Results - last 24 hr 09/07/24 09/07/24 09/07/24 04:32 04:36 05:45 MCV 89.8 MCH 30.2 MCHC 33.6 RDW 15.2 Plt Count 112 L MPV 12.0 Immature Gran % (Auto) 0.8 H Neut % (Auto) 52.6 Lymph % (Auto) 40.3 H Sibley % (Auto) 4.1 Eos % (Auto) 1.7 Baso % (Auto) 0.5 Lymph # (Auto) 7.3 H Sibley # (Auto) 0.8 Eos # (Auto) 0.3 Baso # (Auto) 0.1 Abs Immat Gran (auto) 0.15 H Absolute Neuts (auto) 9.6 H Absolute Nucleated RBC 0.000 Nucleated RBC % (auto) 0.0 Smear Tech's Comments VERIFIED VBG pH 7.36 VBG pCO2 33 VBG pO2 47 VBG HCO3 19 L VBG O2 Saturation 79.0 VBG Base Excess -4.7 Anion Gap 17 Estim Creat Clear Calc 34.5 Estimated GFR 35 POC Glucose 464 H* Random Glucose 430 H* Calcium 8.9 Total Bilirubin 0.6 AST 72 H ALT 39 H Alkaline Phosphatase 179 H B-Natriuretic Peptide 495 H Total Protein 7.5 Albumin 3.8 Assessment and Plan (1) Acute exacerbation of CHF (congestive heart failure): Status: Acute Plan This is a 69-year-old female with pertinent history of congestive heart failure with reduced ejection fraction, status post biventricular ICD and CardioMEMS in place, CAD status post CABG, history of PE on Xarelto, tobacco use disorder, COPD not on home oxygen, TAQUERIA on CPAP, insulin-dependent type 2 diabetes mellitus, mood disorder who presents to the emergency department for evaluation of dyspnea. #. Acute decompensation of congestive heart failure with reduced ejection fraction: Will admit patient with IV diuresis. Strict I's and O's. Low-salt diet. On Entresto, spironolactone, Jardiance and beta-aly #. Acute kidney injury stage I, cardiorenal type 1 in the setting of above: Monitor with diuresis. Hold Entresto until kidney function improves. Avoid nephrotoxins #. COPD not on home oxygen: Scheduled and p.r.n. DuoNebs. Continue home inhaler. #. Leukocytosis: In the setting of recent steroid use. Obtaining procalcitonin. Patient without productive cough or fever. Defer antibiotics for now. #. Coronary artery disease: Continue high-intensity statin. Patient not on antiplatelet agent #. Insulin-dependent diabetes mellitus with hyperglycemia: Initiating basal plus insulin regimen #. History of PE: On Xarelto #. Mood disorder: Continue home citalopram #. TAQUERIA: CPAP at bedtime #. Tobacco use disorder: Refused nicotine patch in the hospital Med rec pending DVT prophylaxis: Xarelto Full code Admit as inpatient and will require two night minimum hospital stay for monitoring of kidney function, IV diuresis (as above), which is not possible in a lesser acute setting. Quality Stroke Does the patient have a stroke diagnosis?: No VTE Prior VTE?: No VTE Risk Level:: Medical - moderate - high VTE Device Contraindication: Treatment Not Indicated VTE Drug Contraindication: N/A - Med Ordered
[2024-09-07 06:21] LABS: Glucose, Whole Blood 501 mg/dL (60-115)
[2024-09-07] MEDS: Sodium Zirconium Cyclosilicate 10 GM POWD.PACK PO (06:26)
[2024-09-07] MEDS: Insulin Regular, Human 100 UNIT/ML 10 ML VIAL IVPUSH (06:26)
[2024-09-07 07:41] LABS: Glucose, Whole Blood 477 mg/dL (60-115)
--- NOTE | 2024-09-07 07:47 | PHA.MEDREC ---
Pharmacy Consult ? Medication Reconciliation Pharmacy has completed the medication reconciliation. Spoke to patient at bedside, she was able to confirm her meds.
[2024-09-07] MEDS: Insulin Lispro 100 UNIT/ML 3 ML VIAL SUBCUT ×4 (08:00→20:43)
[2024-09-07] MEDS: 0.9 % Sodium Chloride Flush 3 ML SYRINGE IVFLUSH (08:02)
[2024-09-07 08:38] LABS: Procalcitonin 0.05 ng/mL
[2024-09-07] MEDS: Spironolactone 25 MG TABLET PO (09:27)
[2024-09-07] MEDS: carvediloL 25 MG TABLET PO ×2 (09:27→20:40)
[2024-09-07] MEDS: Escitalopram Oxalate 10 MG TABLET PO (09:28)
[2024-09-07] MEDS: Empagliflozin 25 MG TABLET PO (09:28)
[2024-09-07] MEDS: Furosemide 40 MG/4 ML VIAL 80 MG IVPUSH (09:36)
[2024-09-07 09:38] LABS: Glucose, Whole Blood 459 mg/dL (60-115)
--- NOTE | 2024-09-07 11:03 | MHC.CM.PN ---
pt lives w/son and fgamily ,has own ride home is independent dc plan home no services
--- NOTE | 2024-09-07 11:19 | PC.NURSE ---
Pt arrived from Ed 8:30AM, alert and oriented. POC in ED 477, repeat POC here 453. notified.
[2024-09-07 11:38] LABS: Glucose, Whole Blood 502 mg/dL (60-115)
[2024-09-07] MEDS: Lactated Ringers 1,000 ML 150 ML IVCONT ×2 (12:13→18:24)
--- NOTE | 2024-09-07 12:24 | MHC.CLN ---
NUTRITION ROUTINE CONSULT. PATIENT WITH NO TEETH AND DENTURES AT HOME. STATED THAT SHE DOESN'T USE HER DENTURES FOR EATING AND NO CONCERNS EATING WITHOUT THEM. NO MODIFICATION TO DIET AT THIS TIME BASED ON CONVERSATION WITH PATIENT.
[2024-09-07] MEDS: Insulin Glargine,Hum.rec.anlog 100 UNIT/ML 10 ML VIAL 10 UNIT SUBCUT (12:43)
[2024-09-07] MEDS: Insulin Regular, Human 100 UNIT/ML 10 ML VIAL 10 UNIT IVPUSH (12:45)
[2024-09-07 12:53] LABS: Estimated Average Glucose 203 mg/dL; Hemoglobin A1C 311.3414 umol/L; Hemoglobin A1c % 8.7 % (<6.0); Total Hemoglobin (HGBA1C) 4345.0325 umol/L
--- NOTE | 2024-09-07 12:58 | PC.NURSE ---
POC 502 - MD ordered 10U sub q Glargine 1X now, and 10U Regular IV 1X now and hold Lispro sliding scale. Will recheck POC 15 min and Q2hrs after
[2024-09-07 13:08] LABS: Glucose, Whole Blood 480 mg/dL (60-115)
[2024-09-07 14:02] LABS: Glucose, Whole Blood 443 mg/dL (60-115)
[2024-09-07] MEDS: Insulin Regular, Human 100 UNIT/ML 10 ML VIAL 12 UNIT IVPUSH (14:23)
[2024-09-07 14:46] LABS: Glucose, Whole Blood 380 mg/dL (60-115)
--- NOTE | 2024-09-07 14:53 | P.PNIM_ITS ---
Subjective Subjective Date of Service: 09/07/24 Interval History: Follow up for pt admitted for CHF exacerbation earlier this morning Denies SOB at rest Reports still having CLEMENT especially with walking Denies significant LLE Currently smoking half a pack daily Reports compliance with home medications Review of Systems Review of Systems: Yes all other systems are reviewed and are negative Physical Exam 2 Vital Signs: Vital Signs: Last Vital Signs Temp 97.1 F 09/07/24 08:16 Pulse 102 H 09/07/24 11:08 Resp 18 09/07/24 11:08 BP 121/83 09/07/24 08:03 Pulse Ox 96 09/07/24 08:03 O2 Del Method Room Air 09/07/24 08:03 BMI result Body Mass Index 40.4 General: AOx3, no acute distress Resp: CTA bilaterally CVS: S1, S2, RRR GI: +BS, NT, no distention Skin: Warm, dry Neuro: Cranial nerves II-XII grossly intact bilaterally. Motor grossly intact bilaterally Extremities: Non pitting bilateral edema Psych: Appropriate affect Objective Data Active Medications Acetaminophen (Acetaminophen 325 Mg Tablet) 650 mg PO Q6H PRN PRN Reason: Pain, Mild 1-3,fever,headache Albuterol/Ipratropium (Albuterol/Iprat 2.5/0.5mg 3 Ml Ampul.Neb) 3 ml INHALE RQ4H PRN PRN Reason: Shortness of Breath/Wheezing Albuterol/Ipratropium (Albuterol/Iprat 2.5/0.5mg 3 Ml Ampul.Neb) 3 ml INHALE RQ4H WHILE AWAKE [facility] Last Admin: 09/07/24 14:52 Dose: Not Given Documented By: MARGARETH Non-Admin Reason: Patient Asleep Albuterol/Ipratropium (Albuterol/Iprat 2.5/0.5mg 3 Ml Ampul.Neb) 3 ml INHALE RQID PRN PRN Reason: wheezing Atorvastatin Calcium (Atorvastatin Calcium 80 Mg Tablet) 80 mg PO BEDTIME [facility] Benzonatate (Benzonatate 100 Mg Capsule) 100 mg PO TID PRN PRN Reason: Cough Calcium Carbonate (Calcium Carbonate 750 Mg Tab.Chew) 750 mg PO Q4H PRN PRN Reason: Heartburn Carvedilol (Carvedilol 25 Mg Tablet) 25 mg PO BID [facility]; Protocol Last Admin: 09/07/24 09:27 Dose: 25 mg Documented By: CHARLES Dextrose (Dextrose 50 % 25 Gm/50 Ml Syringe) 25 gm IVPUSH Q15M PRN; Protocol PRN Reason: per Hypoglycemia Standing Ord. Diphenhydramine HCl (Diphenhydramine Hcl 12.5 Mg/5 Ml Liquid) 50 mg PO BEDTIME PRN PRN Reason: Sleep Empagliflozin (Empagliflozin 25 Mg Tablet) 25 mg PO DAILY [facility] Last Admin: 09/07/24 09:28 Dose: 25 mg Documented By: CHARLES Escitalopram Oxalate (Escitalopram Oxalate 10 Mg Tablet) 10 mg PO DAILY [facility] Last Admin: 09/07/24 09:28 Dose: 10 mg Documented By: CHARLES Furosemide (Furosemide 40 Mg/4 Ml Vial) 40 mg IVPUSH BEDTIME [facility]; Protocol Furosemide (Furosemide 40 Mg/4 Ml Vial) 80 mg IVPUSH DAILY [facility]; Protocol Last Admin: 09/07/24 09:36 Dose: 80 mg Documented By: CHARLES Glucose (Glucose Gel 15 Gm Gel..Gram.) 15 gm PO Q15M PRN; Protocol PRN Reason: per Hypoglycemia Standing Ord. Lactated Ringer's (Lr) 1,000 mls @ 150 mls/hr IVCONT .Q6H40M [facility] Last Admin: 09/07/24 12:13 Dose: 150 mls/hr Documented By: CHARLES Insulin Glargine (Insulin Glargine,Hum.Rec.Anlog 100 Unit/Ml 10 Ml Vial) 23 unit SUBCUT BEDTIME [facility] Insulin Human Lispro (Insulin Lispro 100 Unit/Ml 3 Ml Vial) 0 unit SUBCUT QIDACHS [facility]; Protocol Last Admin: 09/07/24 12:14 Dose: Not Given Documented By: CHARLES Non-Admin Reason: Physician Held Med Magnesium Hydroxide (Milk Of Magnesia 30 Ml Oral.Susp) 30 ml PO DAILY PRN PRN Reason: Constipation Melatonin (Melatonin 3 Mg Tablet) 6 mg PO BEDTIME PRN PRN Reason: Insomnia Ondansetron HCl (Ondansetron Hcl 4 Mg/2 Ml Vial) 4 mg IVPUSH Q8H PRN PRN Reason: Nausea and Vomiting Rivaroxaban (Rivaroxaban 20 Mg Tablet) 20 mg PO DAILY@1730 [facility] Sodium Chloride (0.9 % Sodium Chloride Flush 3 Ml Syringe) 3 ml IVFLUSH QSHIFT [facility] Last Admin: 09/07/24 08:02 Dose: 3 ml Documented By: JORDIN Spironolactone (Spironolactone 25 Mg Tablet) 25 mg PO DAILY [facility]; Protocol Last Admin: 09/07/24 09:27 Dose: 25 mg Documented By: CHARLES Labs 09/07/24 04:32 09/07/24 04:32 Labs: Laboratory Results - last 24 hr 09/07/24 09/07/24 09/07/24 04:32 04:36 05:45 MCV 89.8 MCH 30.2 MCHC 33.6 RDW 15.2 Plt Count 112 L MPV 12.0 Immature Gran % (Auto) 0.8 H Neut % (Auto) 52.6 Lymph % (Auto) 40.3 H [place] % (Auto) 4.1 Eos % (Auto) 1.7 Baso % (Auto) 0.5 Lymph # (Auto) 7.3 H [place] # (Auto) 0.8 Eos # (Auto) 0.3 Baso # (Auto) 0.1 Abs Immat Gran (auto) 0.15 H Absolute Neuts (auto) 9.6 H Absolute Nucleated RBC 0.000 Nucleated RBC % (auto) 0.0 Smear Tech's Comments VERIFIED VBG pH 7.36 VBG pCO2 33 VBG pO2 47 VBG HCO3 19 L VBG O2 Saturation 79.0 VBG Base Excess -4.7 Anion Gap 17 Estim Creat Clear Calc 34.5 Estimated GFR 35 POC Glucose 464 H* Random Glucose 430 H* Estimat Average Glucose 203 Hemoglobin A1c % 8.7 H Calcium 8.9 Total Bilirubin 0.6 AST 72 H ALT 39 H Alkaline Phosphatase 179 H B-Natriuretic Peptide 495 H Total Protein 7.5 Albumin 3.8 Procalcitonin 09/07/24 09/07/24 09/07/24 06:17 07:37 07:51 MCV MCH MCHC RDW Plt Count MPV Immature Gran % (Auto) Neut % (Auto) Lymph % (Auto) [place] % (Auto) Eos % (Auto) Baso % (Auto) Lymph # (Auto) [place] # (Auto) Eos # (Auto) Baso # (Auto) Abs Immat Gran (auto) Absolute Neuts (auto) Absolute Nucleated RBC Nucleated RBC % (auto) Smear Tech's Comments VBG pH VBG pCO2 VBG pO2 VBG HCO3 VBG O2 Saturation VBG Base Excess Anion Gap Estim Creat Clear Calc Estimated GFR POC Glucose 501 H* 477 H* Random Glucose Estimat Average Glucose Hemoglobin A1c % Calcium Total Bilirubin AST ALT Alkaline Phosphatase B-Natriuretic Peptide Total Protein Albumin Procalcitonin 0.05 09/07/24 09/07/24 09/07/24 09:35 11:34 13:04 MCV MCH MCHC RDW Plt Count MPV Immature Gran % (Auto) Neut % (Auto) Lymph % (Auto) [place] % (Auto) Eos % (Auto) Baso % (Auto) Lymph # (Auto) [place] # (Auto) Eos # (Auto) Baso # (Auto) Abs Immat Gran (auto) Absolute Neuts (auto) Absolute Nucleated RBC Nucleated RBC % (auto) Smear Tech's Comments VBG pH VBG pCO2 VBG pO2 VBG HCO3 VBG O2 Saturation VBG Base Excess Anion Gap Estim Creat Clear Calc Estimated GFR POC Glucose 459 H* 502 H* 480 H* Random Glucose Estimat Average Glucose Hemoglobin A1c % Calcium Total Bilirubin AST ALT Alkaline Phosphatase B-Natriuretic Peptide Total Protein Albumin Procalcitonin 09/07/24 09/07/24 13:57 14:41 MCV MCH MCHC RDW Plt Count MPV Immature Gran % (Auto) Neut % (Auto) Lymph % (Auto) [place] % (Auto) Eos % (Auto) Baso % (Auto) Lymph # (Auto) [place] # (Auto) Eos # (Auto) Baso # (Auto) Abs Immat Gran (auto) Absolute Neuts (auto) Absolute Nucleated RBC Nucleated RBC % (auto) Smear Tech's Comments VBG pH VBG pCO2 VBG pO2 VBG HCO3 VBG O2 Saturation VBG Base Excess Anion Gap Estim Creat Clear Calc Estimated GFR POC Glucose 443 H* 380 H* Random Glucose Estimat Average Glucose Hemoglobin A1c % Calcium Total Bilirubin AST ALT Alkaline Phosphatase B-Natriuretic Peptide Total Protein Albumin Procalcitonin Assessment and Plan (1) Hyperglycemia: Status: Acute (2) GABINO (acute kidney injury): Status: Acute Plan This is a 69-year-old female with pertinent history of congestive heart failure with reduced ejection fraction, status post biventricular ICD and CardioMEMS in place, CAD status post CABG, history of PE on Xarelto, tobacco use disorder, COPD not on home oxygen, TAQUERIA on CPAP, insulin-dependent type 2 diabetes mellitus, mood disorder who presents to the emergency department for evaluation of dyspnea. Acute decompensation of congestive heart failure with reduced EF Received IV Lasix in the ED BNP elevated but half of previous, around baseline; CXR improved over prior, no clear pulmonary edema Clinically appears euvolemic, no hypoxia Will hold on additional IV diuretics at this time Hold on home diuretics Monitor volume status Insulin-dependent type 2 diabetes with hyperglycemia Pt with intractable hypoglycemia in the 400-500s since admission Pt treated with multiple doses of regular insulin IV, additional Lantus Possibly secondary to hypovolemia, recent steroid use Will start on IVF: Lactated Ringer's @150 mls/hr Monitor POC q2h x8h Continue sliding scale insulin, Lantus Check A1c Diabetic diet GABINO Patient's creatinine 1.49, elevated from 1.09 on 08/29 Likely secondary to hypovolemia from over diuresing, less likely cardiorenal Pt receiving IVF as above Follow creatinine Transaminitis AST 72, ALT 39, alk-phos 179 Unclear etiology, mildly elevated in the past Pt asymptomatic Trend LFTs Elevated troponin Troponin 612.6, at baseline Leukocytosis Likely elevated secondary to recent steroid use Procalcitonin WNL at 0 point 0 5 CAD Continue statin Hx of PE Continue Xarelto Mood disorder Continue citalopram TAQUERIA CPAP at bedtime Tobacco use disorder Has been refusing NRT Pt will require continued hospital stay for treatment and further evaluation of GABINO and intractable hyperglycemia requiring IVF and close monitoring of POCs. Quality Stroke Does the patient have a stroke diagnosis?: No VTE Prior VTE?: No VTE Risk Level:: Medical - moderate - high VTE Device Contraindication: Treatment Not Indicated VTE Drug Contraindication: N/A - Med Ordered
[2024-09-07 16:10] LABS: Glucose, Whole Blood 283 mg/dL (60-115)
[2024-09-07] MEDS: Rivaroxaban 20 MG TABLET PO (16:43)
[2024-09-07 18:13] LABS: Glucose, Whole Blood 324 mg/dL (60-115)
[2024-09-07 19:58] LABS: Glucose, Whole Blood 308 mg/dL (60-115)
[2024-09-07] MEDS: Atorvastatin Calcium 80 MG TABLET PO (20:40)
[2024-09-07] MEDS: Insulin Glargine,Hum.rec.anlog 100 UNIT/ML 10 ML VIAL 30 UNIT SUBCUT (20:43)
[2024-09-08] VITALS (8 sets, daily range): BP systolic 118–136; BP diastolic 64–70; PULSE 60–89; RESP 16–18; TEMP 36.1–36.4; O2SAT 93–98
[2024-09-08 05:39] LABS: MANUAL DIFF FLAG NO
[2024-09-08 05:42] LABS: Basophils Percent Auto 0.1 % (0-2); Hematocrit 45.9 % (37.0-47.0); Hemoglobin 15.7 g/dl (12.0-16.0); Imm Gran Abs Auto 0.22 X10*3/uL (0.00-0.03); Imm Gran Pct Auto 1.1 % (0.0-0.4); Lymphocytes Absolute Auto 2.4 X10*3/uL (1.2-4.9); Lymphocytes Percent Auto 11.7 % (20-40); Mean Corpuscular HGB Conc 34.2 g/dl (31.0-35.0); Mean Corpuscular Hemoglobin 30.3 pg (27.0-33.0); Mean Corpuscular Volume 88.4 fL (80.0-98.0); Mean Platelet Volume 11.9 fL (9.4-12.3); Monocytes Absolute Auto 0.6 X10*3/uL (0.1-1.2); Neutrophils Absolute Auto 17.5 x10*3/uL (2.0-8.3); Neutrophils Percent Auto 84.1 % (45-73); Platelet Count 113 X10*3/uL (160-400); Red Blood Count 5.19 X10*6/uL (4.20-5.50); Red Cell Distribution Width 15.4 % (11.0-16.0); White Blood Count 20.8 X10*3/uL (4.8-10.8)
[2024-09-08 06:00] LABS: Alanine Aminotransferase 74 U/L (0-31); Albumin Level 3.7 g/dL (3.5-5.0); Alkaline Phosphatase 155 U/L (39-117); Anion Gap 16 (12-20); Aspartate Amino Transferase 77 U/L (5-31); Bilirubin Total 0.6 mg/dL (0.0-1.0); Blood Urea Nitrogen 38 mg/dL (9-16); Calcium 9.8 mg/dL (8.4-10.2); Carbon Dioxide 22 mmol/L (22-29); Chloride 105 mmol/L (96-108); Creatinine Clr Calc Pharmacy 34.9; Estimated Glomerular Filt Rate 35; Glucose Random 253 mg/dL (60-115); Potassium 4.9 mmol/L (3.3-5.1); Sodium 138 mmol/L (135-145); Total Protein 6.9 g/dL (6.5-8.0)
[2024-09-08 07:21] LABS: Glucose, Whole Blood 265 mg/dL (60-115)
[2024-09-08] MEDS: Insulin Lispro 100 UNIT/ML 3 ML VIAL SUBCUT ×4 (07:34→20:33)
[2024-09-08] MEDS: Albuterol/Iprat 2.5/0.5MG 3 ML AMPUL.NEB INHALE (08:14)
[2024-09-08] MEDS: Escitalopram Oxalate 10 MG TABLET PO (09:00)
[2024-09-08] MEDS: carvediloL 25 MG TABLET PO ×2 (09:00→20:32)
[2024-09-08] MEDS: Empagliflozin 25 MG TABLET PO (09:00)
[2024-09-08] MEDS: 0.9 % Sodium Chloride Flush 3 ML SYRINGE IVFLUSH ×3 (09:01→22:46)
[2024-09-08 11:20] LABS: Glucose, Whole Blood 262 mg/dL (60-115)
--- NOTE | 2024-09-08 15:59 | P.PNIM_ITS ---
Subjective Subjective Date of Service: 09/08/24 Interval History: Seen and examined this morning Follow-up for GABINO, hyperglycemia Feels well, tolerating diet, vomiting, no diarrhea. feels well Review of Systems Review of Systems: Yes all other systems are reviewed and are negative Constitutional Constitutional: Denies chills and Denies fever(s) Physical Exam 2 Vital Signs: Vital Signs: Last Vital Signs Temp 97.6 F 09/08/24 15:53 Pulse 68 09/08/24 15:53 Resp 16 09/08/24 15:53 BP 118/70 09/08/24 15:53 Pulse Ox 98 09/08/24 15:53 O2 Del Method Room Air 09/08/24 15:53 BMI result Body Mass Index 40.4 Const: General: cooperative, comfortable, no acute distress and alert N utritional Appearance: average body habitus Orientation/consciousness: p atient oriented x3 Resp: Effort & Inspection: normal respiratory effort, able to speak in complete sentences, no respiratory distress and no use of accessory muscles Cardio: Rate: regular rate GI: Inspection: No distended Palpation (GI): Soft to palpation Neuro: General: patient oriented x3 and moves all extremities Extrem: General: Yes no pedal edema Objective Data Active Medications Acetaminophen (Acetaminophen 325 Mg Tablet) 650 mg PO Q6H PRN PRN Reason: Pain, Mild 1-3,fever,headache Albuterol/Ipratropium (Albuterol/Iprat 2.5/0.5mg 3 Ml Ampul.Neb) 3 ml INHALE RQ4H PRN PRN Reason: Shortness of Breath/Wheezing Albuterol/Ipratropium (Albuterol/Iprat 2.5/0.5mg 3 Ml Ampul.Neb) 3 ml INHALE RQ4H WHILE AWAKE [facility] Last Admin: 09/08/24 14:59 Dose: Not Given Documented By: CAL Non-Admin Reason: Patient Refused Albuterol/Ipratropium (Albuterol/Iprat 2.5/0.5mg 3 Ml Ampul.Neb) 3 ml INHALE RQID PRN PRN Reason: wheezing Atorvastatin Calcium (Atorvastatin Calcium 80 Mg Tablet) 80 mg PO BEDTIME [facility] Last Admin: 09/07/24 20:40 Dose: 80 mg Documented By: ROSI Benzonatate (Benzonatate 100 Mg Capsule) 100 mg PO TID PRN PRN Reason: Cough Calcium Carbonate (Calcium Carbonate 750 Mg Tab.Chew) 750 mg PO Q4H PRN PRN Reason: Heartburn Carvedilol (Carvedilol 25 Mg Tablet) 25 mg PO BID [facility]; Protocol Last Admin: 09/08/24 09:00 Dose: 25 mg Documented By: JOSÉ MIGUEL Dextrose (Dextrose 50 % 25 Gm/50 Ml Syringe) 25 gm IVPUSH Q15M PRN; Protocol PRN Reason: per Hypoglycemia Standing Ord. Diphenhydramine HCl (Diphenhydramine Hcl 12.5 Mg/5 Ml Liquid) 50 mg PO BEDTIME PRN PRN Reason: Sleep Empagliflozin (Empagliflozin 25 Mg Tablet) 25 mg PO DAILY [facility] Last Admin: 09/08/24 09:00 Dose: 25 mg Documented By: JOÉS MIGUEL Escitalopram Oxalate (Escitalopram Oxalate 10 Mg Tablet) 10 mg PO DAILY [facility] Last Admin: 09/08/24 09:00 Dose: 10 mg Documented By: JOSÉ MIGUEL Glucose (Glucose Gel 15 Gm Gel..Gram.) 15 gm PO Q15M PRN; Protocol PRN Reason: per Hypoglycemia Standing Ord. Lactated Ringer's (Lr) 500 mls @ 80 mls/hr IVCONT .Q6H15M [facility] Stop: 09/08/24 21:59 Insulin Glargine (Insulin Glargine,Hum.Rec.Anlog 100 Unit/Ml 10 Ml Vial) 30 unit SUBCUT BEDTIME [facility] Last Admin: 09/07/24 20:43 Dose: 30 unit Documented By: ROSI Insulin Human Lispro (Insulin Lispro 100 Unit/Ml 3 Ml Vial) 0 unit SUBCUT QIDACHS [facility]; Protocol Last Admin: 09/08/24 11:29 Dose: 6 unit Documented By: JOSÉ MIGUEL Magnesium Hydroxide (Milk Of Magnesia 30 Ml Oral.Susp) 30 ml PO DAILY PRN PRN Reason: Constipation Melatonin (Melatonin 3 Mg Tablet) 6 mg PO BEDTIME PRN PRN Reason: Insomnia Ondansetron HCl (Ondansetron Hcl 4 Mg/2 Ml Vial) 4 mg IVPUSH Q8H PRN PRN Reason: Nausea and Vomiting Rivaroxaban (Rivaroxaban 20 Mg Tablet) 20 mg PO DAILY@1730 [facility] Last Admin: 09/07/24 16:43 Dose: 20 mg Documented By: CHARLES Sodium Chloride (0.9 % Sodium Chloride Flush 3 Ml Syringe) 3 ml IVFLUSH QSHIFT [facility] Last Admin: 09/08/24 09:01 Dose: 3 ml Documented By: JOSÉ MIGUEL Spironolactone (Spironolactone 25 Mg Tablet) 25 mg PO DAILY [facility]; Protocol Last Admin: 09/07/24 09:27 Dose: 25 mg Documented By: CHARLES Labs 09/08/24 05:29 09/08/24 05:29 Labs: Laboratory Results - last 24 hr 09/07/24 09/07/24 09/07/24 16:04 18:09 19:50 MCV MCH MCHC RDW Plt Count MPV Immature Gran % (Auto) Neut % (Auto) Lymph % (Auto) [place] % (Auto) Eos % (Auto) Baso % (Auto) Lymph # (Auto) [place] # (Auto) Eos # (Auto) Baso # (Auto) Abs Immat Gran (auto) Absolute Neuts (auto) Absolute Nucleated RBC Nucleated RBC % (auto) Anion Gap Estim Creat Clear Calc Estimated GFR POC Glucose 283 H 324 H 308 H Random Glucose Calcium Total Bilirubin AST ALT Alkaline Phosphatase Total Protein Albumin 09/08/24 09/08/24 09/08/24 05:29 07:06 11:13 MCV 88.4 MCH 30.3 MCHC 34.2 RDW 15.4 Plt Count 113 L MPV 11.9 Immature Gran % (Auto) 1.1 H Neut % (Auto) 84.1 H Lymph % (Auto) 11.7 L [place] % (Auto) 3.0 Eos % (Auto) 0.0 Baso % (Auto) 0.1 Lymph # (Auto) 2.4 [place] # (Auto) 0.6 Eos # (Auto) 0.0 Baso # (Auto) 0.0 Abs Immat Gran (auto) 0.22 H Absolute Neuts (auto) 17.5 H Absolute Nucleated RBC 0.000 Nucleated RBC % (auto) 0.0 Anion Gap 16 Estim Creat Clear Calc 34.9 Estimated GFR 35 POC Glucose 265 H 262 H Random Glucose 253 H Calcium 9.8 D Total Bilirubin 0.6 AST 77 H ALT 74 H Alkaline Phosphatase 155 H Total Protein 6.9 Albumin 3.7 Assessment and Plan (1) Hyperglycemia: Status: Acute Plan This is a 69-year-old female with pertinent history of congestive heart failure with reduced ejection fraction, status post biventricular ICD and CardioMEMS in place, CAD status post CABG, history of PE on Xarelto, tobacco use disorder, COPD not on home oxygen, TAQUERIA on CPAP, insulin-dependent type 2 diabetes mellitus, mood disorder who presents to the emergency department for evaluation of dyspnea. Acute decompensation of congestive heart failure with reduced EF Received IV Lasix in the ED BNP elevated but half of previous, around baseline; CXR improved over prior, no clear pulmonary edema Clinically appears euvolemic, no hypoxia Will hold on additional IV diuretics at this time Hold on home diuretics spironolactone and furosemide Continue Coreg, Jardiance Monitor volume status gentle IVF Insulin-dependent type 2 diabetes with hyperglycemia Pt with intractable hypoglycemia in the 400-500s since admission Pt treated with multiple doses of regular insulin IV, additional Lantus Possibly secondary to recent steroid use Continue sliding scale insulin, Lantus Check A1c 8.6 Diabetic diet GABINO Patient's creatinine 1.49, elevated from 1.09 on 08/29 Likely secondary to hypovolemia from over diuresing, less likely cardiorenal Pt receiving IVF as above Follow creatinine Transaminitis AST 72, ALT 39, alk-phos 179 Unclear etiology, mildly elevated in the past Pt asymptomatic Trend LFTs hold statin Elevated troponin Chronically elevated Troponin 612.6, at baseline Leukocytosis Likely elevated secondary to recent steroid use Procalcitonin WNL at 0.05 CAD Continue statin Hx of PE Continue Xarelto Mood disorder Continue citalopram TAQUERIA CPAP at bedtime Tobacco use disorder Has been refusing NRT Pt will require continued hospital stay for treatment and further evaluation of GABINO and intractable hyperglycemia requiring IVF and close monitoring of POCs. Quality Stroke Does the patient have a stroke diagnosis?: No VTE Prior VTE?: No VTE Risk Level:: Medical - moderate - high VTE Device Contraindication: Treatment Not Indicated VTE Drug Contraindication: N/A - Med Ordered
[2024-09-08] MEDS: Lactated Ringers 500 ML 80 ML IVCONT (16:01)
[2024-09-08 16:17] LABS: Glucose, Whole Blood 160 mg/dL (60-115)
[2024-09-08] MEDS: Rivaroxaban 20 MG TABLET PO (16:38)
[2024-09-08 20:13] LABS: Glucose, Whole Blood 199 mg/dL (60-115)
[2024-09-08] MEDS: Atorvastatin Calcium 80 MG TABLET PO (20:32)
[2024-09-08] MEDS: Insulin Glargine,Hum.rec.anlog 100 UNIT/ML 10 ML VIAL 30 UNIT SUBCUT (20:33)
[2024-09-09 03:17] VITALS: BP 133/63; PULSE 60; RESP 18; TEMP 36.8; O2SAT 96
[2024-09-09 06:41] LABS: Alanine Aminotransferase 53 U/L (0-31); Albumin Level 3.2 g/dL (3.5-5.0); Alkaline Phosphatase 109 U/L (39-117); Anion Gap 13 (12-20); Aspartate Amino Transferase 48 U/L (5-31); Bilirubin Direct 0.2 mg/dL (0.0-0.5); Bilirubin Total 0.6 mg/dL (0.0-1.0); Blood Urea Nitrogen 42 mg/dL (9-16); Calcium 8.6 mg/dL (8.4-10.2); Carbon Dioxide 24 mmol/L (22-29); Chloride 109 mmol/L (96-108); Creatinine Clr Calc Pharmacy 42.8; Estimated Glomerular Filt Rate 44; Glucose Random 94 mg/dL (60-115); Sodium 142 mmol/L (135-145); Total Protein 5.7 g/dL (6.5-8.0)
[2024-09-09 07:12] LABS: Glucose, Whole Blood 87 mg/dL (60-115)
[2024-09-09] MEDS: carvediloL 25 MG TABLET PO (07:38)
[2024-09-09] MEDS: Empagliflozin 25 MG TABLET PO (07:38)
[2024-09-09] MEDS: 0.9 % Sodium Chloride Flush 3 ML SYRINGE IVFLUSH (07:39)
[2024-09-09] MEDS: Escitalopram Oxalate 10 MG TABLET PO (07:39)
[2024-09-09 07:47] VITALS: BP 117/55; PULSE 59; RESP 16; TEMP 36.6; O2SAT 97
[2024-09-09 09:36] LABS: MANUAL DIFF FLAG NO
[2024-09-09 09:56] LABS: Basophils Percent Auto 0.1 % (0-2); Eosinophils Absolute Auto 0.1 X10*3/uL (0.0-0.4); Eosinophils Percent Auto 0.6 % (0-4); Hematocrit 41.8 % (37.0-47.0); Hemoglobin 14.2 g/dl (12.0-16.0); Imm Gran Abs Auto 0.08 X10*3/uL (0.00-0.03); Imm Gran Pct Auto 0.6 % (0.0-0.4); Lymphocytes Absolute Auto 4.7 X10*3/uL (1.2-4.9); Lymphocytes Percent Auto 32.7 % (20-40); Mean Corpuscular Hemoglobin 30.4 pg (27.0-33.0); Mean Corpuscular Volume 89.5 fL (80.0-98.0); Mean Platelet Volume 12.7 fL (9.4-12.3); Monocytes Absolute Auto 0.7 X10*3/uL (0.1-1.2); Neutrophils Absolute Auto 8.7 x10*3/uL (2.0-8.3); Platelet Count 106 X10*3/uL (160-400); Red Blood Count 4.67 X10*6/uL (4.20-5.50); Red Cell Distribution Width 15.9 % (11.0-16.0); White Blood Count 14.3 X10*3/uL (4.8-10.8)
--- NOTE | 2024-09-09 10:20 | PM.DS ---
DS: Providers Provider Date of Service: 09/09/24 Date of admission: 09/07/24 05:41 Date of discharge: 09/09/24 Primary care physician: Carmina Martins MD Attending physician on discharge: [facility] Discharging clinician: Dariana Summers DS: Diagnosis Discharge Diagnosis (1) Hyperglycemia: Status: Acute DS: Summary Hospital Course Hospital Course: From H&P on the day of admission This is a 69-year-old female with pertinent history of congestive heart failure with reduced ejection fraction, status post biventricular ICD and CardioMEMS in place, CAD status post CABG, history of PE on Xarelto, tobacco use disorder, COPD not on home oxygen, [place]QUERIA on CPAP, insulin-dependent type 2 diabetes mellitus, mood disorder who presents to the emergency department for evaluation of dyspnea. Patient was recently admitted with acute hypoxemic respiratory failure due to acute decompensation of congestive heart failure and discharged on 08/30. Patient was weaned to room air upon discharge and IV Lasix was transitioned to p.o. Lasix on discharge. Patient states she started having dyspnea which was sudden in onset on the night of presentation. Patient was walking to her bathroom at night when she felt short of breath. Admits orthopnea and PND. Also admits lower extremity leg swelling. She tried her home inhaler but no relief. Continues to smoke cigarettes. Also noticed lower extremity leg swelling. Denies fever. Minimal nonproductive cough. Has associated wheezing. No chills, chest pain, palpitations, abdominal pain, changes in urinary or bowel habits. In the emergency department, imaging with cardiomegaly and pleural fluid. BNP elevated. Patient was given IV Lasix in the ER. Acute decompensation of congestive heart failure with reduced EF Received IV Lasix in the ED. BNP elevated but half of previous, around baseline; CXR improved over prior, no clear pulmonary edema. Clinically appears euvolemic, no hypoxia. No further diuretics were given. Insulin-dependent type 2 diabetes with hyperglycemia Pt with intractable hypoglycemia in the 400-500s since admission. Pt treated with multiple doses of regular insulin IV, additional Lantus. Possibly secondary to recent steroid use. A1c 8.6. Blood sugars improved, on the morning of discharge blood sugar 87. GABINO Patient's creatinine 1.49, elevated from 1.09 on 08/29. Likely secondary to hypovolemia from over diuresing, less likely cardiorenal. Diuretics were placed on hold, she received gentle IV fluids and renal function is improving currently within baseline. will resume baseline medications. will repeat labs in 1 week Transaminitis AST 72, ALT 39, alk-phos 179. Pt asymptomatic, LFTs trending down. Hold statin. Repeat labs as outpatient in 1 week Time Attestation Discharge Coordination Time (in mins): 36 Quality: Safe Use of Opioids Does Pt have an Active Cancer Diagnosis on the Problem List?: No Quality: Stroke Does the patient have a stroke diagnosis?: No Physical Exam Vital Signs: Vital Signs: Last Vital Signs Temp 97.8 F 09/09/24 07:47 Pulse 59 09/09/24 07:47 Resp 16 09/09/24 07:47 BP 117/55 L 09/09/24 07:47 Pulse Ox 97 09/09/24 07:47 O2 Del Method Room Air 09/09/24 07:47 BMI result Body Mass Index 40.4 Const: General: cooperative, comfortable, no acute distress and alert Nutritional Appearance: average body habitus Orientation/consciousness: patient oriented x3 Resp: Effort & Inspection: normal respiratory effort, able to speak in complete sentences, no respiratory distress and no use of accessory muscles Cardio: Rate: regular rate GI: Inspection: No distended Palpation (GI): Soft to palpation Neuro: General: patient oriented x3 and moves all extremities Extrem: General: Yes no pedal edema DS: Data Data Completed and Pending Completed studies during hospitalization [Text1]: Procedures Assistance with Respiratory Ventilation, Less than 24 Consecutive Hours, Continuous Positive Airway Pressure (03/29/24) Dilation of Right Ureter with Intraluminal Device, Via Natural or Artificial Opening Endoscopic (02/09/24) Fluoroscopy of Right Kidney, Ureter and Bladder (02/09/24) Insertion of Infusion Device into Superior Vena Cava, Percutaneous Approach (02/09/24) Introduction of Vasopressor into Peripheral Vein, Percutaneous Approach (02/09/24) Ultrasonography of Superior Vena Cava, Guidance (02/09/24) Labs on day of discharge: Laboratory Results - last 24 hr 09/08/24 09/08/24 09/08/24 11:13 16:09 20:05 WBC RBC Hgb Hct MCV MCH MCHC RDW Plt Count MPV Immature Gran % (Auto) Neut % (Auto) Lymph % (Auto) [place] % (Auto) Eos % (Auto) Baso % (Auto) Lymph # (Auto) [place] # (Auto) Eos # (Auto) Baso # (Auto) Abs Immat Gran (auto) Absolute Neuts (auto) Absolute Nucleated RBC Nucleated RBC % (auto) Hold Purple Top Sodium Potassium Chloride Carbon Dioxide Anion Gap BUN Creatinine Estim Creat Clear Calc Estimated GFR POC Glucose 262 H 160 H 199 H Random Glucose Calcium Total Bilirubin Direct Bilirubin AST ALT Alkaline Phosphatase Total Protein Albumin 09/09/24 09/09/24 05:52 07:07 WBC 14.3 H RBC 4.67 Hgb 14.2 Hct 41.8 MCV 89.5 MCH 30.4 MCHC 34.0 RDW 15.9 Plt Count 106 L MPV 12.7 H Immature Gran % (Auto) 0.6 H Neut % (Auto) 61.0 Lymph % (Auto) 32.7 [place] % (Auto) 5.0 Eos % (Auto) 0.6 Baso % (Auto) 0.1 Lymph # (Auto) 4.7 [place] # (Auto) 0.7 Eos # (Auto) 0.1 Baso # (Auto) 0.0 Abs Immat Gran (auto) 0.08 H Absolute Neuts (auto) 8.7 H Absolute Nucleated RBC 0.000 Nucleated RBC % (auto) 0.0 Hold Purple Top SEE NOTE Sodium 142 Potassium 4.0 Chloride 109 H Carbon Dioxide 24 Anion Gap 13 BUN 42 H Creatinine 1.20 Estim Creat Clear Calc 42.8 Estimated GFR 44 POC Glucose 87 Random Glucose 94 Calcium 8.6 D Total Bilirubin 0.6 Direct Bilirubin 0.2 AST 48 H ALT 53 H Alkaline Phosphatase 109 Total Protein 5.7 L Albumin 3.2 L Discharge Plan Discharge Anticipated Discharge Date/Time: 09/09/24 10:24 Patient Disposition: Home, Self-Care Discharge Diagnosis: GABINO CHF hyperglycemia Referrals: Carmina Varela MD [Primary Care Provider] - 1 Week Discharge Medications: Continued carvedilol 25 mg tablet 25 mg PO BID Qty: 180 1RF citalopram 20 mg tablet 20 mg PO DAILY ZzzQuil 50 mg/30 mL Liquid 50 mg PO BEDTIME PRN (Reason: Sleep) insulin glargine [Lantus Solostar U-100 Insulin] 100 unit/mL (3 mL) insulin pen 28 unit subcut BEDTIME Jardiance 25 mg Tablet 25 mg PO DAILY Entresto 97-103 mg Tablet 1 tab PO BEDTIME Combivent Respimat 20-100 mcg/actuation mist 1 puff INHALATION QID PRN (Reason: wheezing) spironolactone [Aldactone] 25 mg tablet 25 mg PO DAILY 90 Days Qty: 90 0RF furosemide 40 mg tablet 40 mg PO BEDTIME furosemide 40 mg tablet 40 mg PO BEDTIME PRN (Reason: WHEN DIRECTED BY THE CLINICAL SYSTEMS EDUCATOR) Xarelto 20 mg tablet 20 mg PO BEDTIME furosemide 40 mg tablet 80 mg PO DAILY Rx Instructions: 40 mg orally 2 tabs in am (80mg) and 1 tab in pm (40mg); Additional dose in the PM when directed by cardiology insulin aspart U-100 100 unit/mL (3 mL) insulin pen 1 sliding scale dose subcut TIDAC Held atorvastatin 80 mg tablet 80 mg PO BEDTIME Hold Instructions: hold until repeat LFTs done Discharge Orders: Discharge Order (Routine); Ordered 09/09/24 Ordered By: Dariana Summers Activity on Discharge: As tolerated Stand Alone Forms: Patient Portal Discharge page Print Language: [place] Islander Other Ambulatory Orders: Basic Metabolic Panel (Routine) Timeframe: 1 Week Facility: [facility] - Location: Laboratory Ordered By: Dariana Summers Liver Panel (Routine) Timeframe: 1 Week Facility: [facility] - Location: Laboratory Ordered By: Dariana Summers Care Plan Goals: See below Health Concerns: GABINO Mild CHF exacerbation Elevated liver function tests Plan of Treatment: Repeat kidney labs and liver function tests in 1 week Hold statin until repeat liver function tests return Continue all other medications as prescribed Call to schedule follow-up appointment with Cardiology and/or PCP follow low salt, diabetic diet Assessment: See discharge summary
--- NOTE | 2024-09-09 10:28 | MHC.CM.PN ---
PT DCD HOME SELF CARE
[2024-09-09 11:15] LABS: Glucose, Whole Blood 125 mg/dL (60-115)
== END 2024-09-09 13:35 | disposition home or self-care (01) | DRG 291 ==
LOC: HO.ED 05:07 → HO.EDOVER 05:51 → HO.S3 07:36
PROVIDERS: Psychiatry & Neurology Neurology; Student in an Organized Health Care Education/Training Program; Admitting Provider Student in an Organized Health Care Education/Training Program; Emergency Provider Emergency Medicine; PCP Internal Medicine; Visit Provider Physician Assistant Medical
DX: I13.0 Hypertensive heart and chronic kidney disease with heart failure and stage 1 through stage 4 chronic kidney disease, or unspecified chronic kidney disease (principal); I50.23 Acute on chronic systolic (congestive) heart failure; N17.9 Acute kidney failure, unspecified; N18.9 Chronic kidney disease, unspecified; E11.22 Type 2 diabetes mellitus with diabetic chronic kidney disease; E11.65 Type 2 diabetes mellitus with hyperglycemia; G47.33 Obstructive sleep apnea (adult) (pediatric); E86.1 Hypovolemia; J44.9 Chronic obstructive pulmonary disease, unspecified; I25.10 Atherosclerotic heart disease of native coronary artery without angina pectoris; F39 Unspecified mood [affective] disorder; Z95.5 Presence of coronary angioplasty implant and graft; F17.210 Nicotine dependence, cigarettes, uncomplicated; Z71.6 Tobacco abuse counseling; Z86.711 Personal history of pulmonary embolism; Z95.810 Presence of automatic (implantable) cardiac defibrillator; Z79.01 Long term (current) use of anticoagulants; Z79.4 Long term (current) use of insulin; Z79.899 Other long term (current) drug therapy
CPT/HCPCS: 36415; 71045; 80048; 80053; 80076; 82803; 82947; 83036; 83880; 84145; 84484; 85025; 93005; 94640; 94660; 99285; J1938; J7120

== ENCOUNTER → 2024-09-07 04:07 | Outpatient (BNV) | payer OTHER, SELFPAY ==
[2021-10-15 11:10] VITALS: BP 110/70; BMI 46.0
== END ==
PROVIDERS: Admitting Provider Student in an Organized Health Care Education/Training Program; Emergency Provider Emergency Medicine; Visit Provider Internal Medicine Cardiovascular Disease
DX: R94.31 Abnormal electrocardiogram [ECG] [EKG] (principal); Z95.0 Presence of cardiac pacemaker
CPT/HCPCS: 93010

== ENCOUNTER → 2024-09-07 04:08 | Outpatient (BNV) | payer OTHER, SELFPAY ==
[2021-10-15 11:10] VITALS: BP 110/70; BMI 46.0
== END ==
PROVIDERS: Admitting Provider Student in an Organized Health Care Education/Training Program; Emergency Provider Emergency Medicine; Visit Provider Radiology Vascular & Interventional Radiology
DX: I51.7 Cardiomegaly (principal)
CPT/HCPCS: 71045

== ENCOUNTER → 2024-09-07 05:41 | Outpatient (BNV) | payer OTHER, SELFPAY ==
[2021-10-15 11:10] VITALS: BP 110/70; BMI 46.0
== END ==
PROVIDERS: Admitting Provider Student in an Organized Health Care Education/Training Program; Emergency Provider Emergency Medicine; Visit Provider Student in an Organized Health Care Education/Training Program
DX: R73.9 Hyperglycemia, unspecified (principal); N17.9 Acute kidney failure, unspecified; I50.9 Heart failure, unspecified
CPT/HCPCS: 99223; 99499

== ENCOUNTER 2024-09-20 09:10 | Outpatient (REF) | payer OTHER, SELFPAY ==
[2021-10-15 11:10] VITALS: BP 110/70; BMI 46.0
--- OUTSIDE RECORDS SUMMARY | 2024-09-20 09:41 | XMS_ITS | Clinical Summary ---
Author Organization [address] Address [address] [place] [phone] Phone Care Team Providers Care Cotton Classer Aide Name Role Phone Carmina Ayala MD Primary [...] 10 units, >300: 12 units 4 Active blood-glucose meter kit To check sugars [...] 300 each 3 5 08/28/19 26 Active glucose blood test strip To check blood sugars 3 times a day 4 09/12/19 25 Active Problems Problem Noted Date Diagnosed Date Anxiety 02/15/2024 Carpal tunnel syndrome 02/15/2024 Overview (02/15/2024): Bilateral release COPD (chronic obstructive pu lmonary disease) ([facility] V24, [facility] V28) 02/15/2024 Hyperlipidemia 02/15/2024 [place] (myocardial infarction) 02/15/2024 Overview (02/15/2024): Stent 06/2011 NSTEMI ZOEY LAD 01/2013 /history paroxysmal wenkebach/ followed by Dr Martino TAQUERIA on CPAP 02/15/2024 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, with long-term current use of insulin ([facility] V24, [facility] V28) 02/15/2024 Morbid obesity with BMI of 4 5.0-49.9, adult ([facility] V24, [facility] V28) 02/15/2024 Pure hypercholesterolemia 11/17/2023 Aortic stenosis [...] Pulmonary nodule 01/02/2016 Overview (02/15/2024): 12/21/11 in [facility] a 4 mm nodule in the right middle lobe anteriorly along the minor fissure Asthma 01/02/2014 CKD (chronic kidney disease) , stage III ([facility] V24, [facility] V28) 01/02/2014 Diabetes mellitus type 2 wit h neurological manifestations ([facility] V24, [facility] V28) 01/02/2014 Hypertension 01/02/2014 Assessment & Plan (05/12/2024 8:29 PM EST): Blood pressure is well-controlled, today 110/68. Will continue same regimen. Orders: Blood pressure monitor Vitamin D deficiency 01/02/2014 CHF NYHA class II ([facility] V24, [facility] V28) Encounters Date Type Department Care Team Description 08/26/2024 Telephone Adult [address] [phone] Carmina Miller MD Fitting for DME 08/25/2024 Telephone Adult [address] [phone] Carmina Miller MD body pain (Right side) 07/29/2024 1:37 PM EDT - 07/29/2024 11:59 PM EDT Hospital Encounter Radiology Department - [address] [phone] Encounter for screening mammogram for breast cancer Discharge Disposition: Home or Self Care 07/28/2024 11:30 AM EDT Office Visit Adult [address] [phone] Khadra Mckeon PA Acute cystitis without hematuria (Primary Dx); Dysuria; Stage 3 chronic kidney disease, unspecified whether stage 3a or 3b CKD ([facility] V24, [facility] V28); Diabetes mellitus type 2 with neurological manifestations ([facility] V24, [facility] V28) 07/27/2024 Telephone Adult Medicine [address] [phone] Carmina Miller MD UTI from Last 3 [...] Medical History Medical History Date Comments Diabetes ([facility] V24, [facility] V28) DX:Diabetes ([facility]) Anxiety DX:Anxiety Dyslipidemia DX:Dyslipidemia TAQUERIA on CPAP DX:TAQUERIA on CPAP; COMMENT: dr bowling COPD (chronic obstructive pu lmonary disease) ([facility] V24, [facility] V28) DX:COPD (chronic o bstructive pulmonary disease) ([facility]) Smoking DX:Smoking; COMM ENT: 25 pack yr CAD (coronary artery disease) DX :CAD (coronary artery disease); COMMENT: Dr. Martino OA (osteoarthritis) of knee DX:O A (osteoarthritis) of knee Hypertension 01/02/2014 DX:Hypertension Diabetes type 2, uncontrolled DX :Diabetes type 2, uncontrolled [facility] (my[facility] infarction) D X:Old [place] (myocardial infarction); COMMENT: Dr. Martino Diabetes mellitus with renal manifestation ([facility] V24, [facility] V28) 01/02/2014 DX:Diabetes mellitus with re nal manifestation ([facility]) Vitamin D deficiency 01/02/2014 DX:Vitamin D deficiency Hyperlipidemia DX:Hyperlipidemi a Asthma 01/02/2014 DX:Asthma CKD (chronic kidney disease) , stage III ([facility] V24, [facility] V28) 01/02/2014 DX:CKD (chronic kidney disease), stage III ([facility]) Diabetes mellitus type 2 wit h neurological manifestations ([facility] V24, [facility] V28) 01/02/2014 DX:Diabetes mellitus type 2 with neurological manifestations ([facility]) ICD (implantable cardioverter-defibrillator) in place DX:ICD (implantab le cardioverter-defibrillator) in place 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 For example, child care team lead or elderly care for an older adult? [...] Info) Description 10/17/2024 10:00 AM EDT Appointment [facility] [address] [place] [id number] Jericho Vargas DO [address] [address] 08/04/2025 2:00 PM EDT Appointment Radiology Department - [address] [phone] Health Maintenance Due Date Last Done Comments [...] unspecified whether stage 3a or 3b CKD ([facility] V24, [facility] V28) Diabetes mellitus type 2 with neurological manifestations ([facility] V24, [facility] V28) URINALYSIS WITH REFLEX MICROSCOPIC AND CULTURE Routine 07/29/2024 2:20 PM EDT Acute cystitis without hematuria Dysuria Stage 3 chronic kidney disease, unspecified whether stage 3a or 3b CKD ([facility]/H[facility] V24, [facility] V28) Diabetes mellitus type 2 with neurological manifestations ([facility] V24, [facility] V28) URINALYSIS WITH REFLEX MICROSCOPIC Routine 07/29/2024 2:20 PM EDT Urinary tract infection symptoms URINALYSIS WITH REFLEX MICROSCOPIC AND CULTURE Routine 07/29/2024 2:20 PM EDT Acute cystitis without hematuria Dysuria Stage 3 chronic kidney disease, unspecified whether stage 3a or 3b CKD ([facility] V24, [facility] V28) Diabetes mellitus type 2 with neurological manifestations ([facility] V24, [facility] V28) CULTURE URINE Routine 07/29/2024 2:20 PM EDT Urinary tract infection symptoms MG MAMMO DIGITAL SCREENING W JIMMY BILAT Routine 07/29/2024 2:03 PM EDT Encounter for screening mammogram for breast cancer POC URINE NON-AUTO W/O MICRO Routine 07/28/2024 11:11 AM EDT Dysuria Stage 3 chronic kidney disease, unspecified whether stage 3a or 3b CKD ([facility] V24, [facility] V28) Diabetes mellitus type 2 with neurological manifestations ([facility] V24, [facility] V28) HEMOGLOBIN A1C Routine 04/21/2024 2:05 PM [...] reflex microscopic (07/29/2024 2:20 PM EDT) Specific [place] Urine 1.012 1.003 - 1.030 LAB URINALYSIS - AUTOMATED METHOD 07/29/2024 4:51 PM [facility] pH, Urine 6.5 5.0 - 8.0 pH LAB URINALYSIS - AUTOMATED METHOD 07/29/2024 4:51 PM [facility] Leukocytes, Urine Large(A) Negative LAB URINALYSIS - AUTOMATED METHOD 07/29/2024 4:51 PM [facility] Nitrite, Urine Positive(A) Negative LAB URINALYSIS - AUTOMATED METHOD 07/29/2024 4:51 PM [facility] Protein, Urine Negative <=Trace mg/dL LAB URINALYSIS - AUTOMATED METHOD 07/29/2024 4:51 PM [facility] Glucose, Urine >=1000(A) Negative mg/dL LAB URINALYSIS - AUTOMATED METHOD 07/29/2024 4:51 PM [facility] Ketones, Urine Negative Negative mg/dL LAB URINALYSIS - AUTOMATED METHOD 07/29/2024 4:51 PM [facility] Urobilinogen , Urine 0.2 0.2 - 1.0 mg/dL LAB URINALYSIS - AUTOMATED METHOD 07/29/2024 4:51 PM [facility] Bilirubin, Urine Negative Negative LAB URINALYSIS - AUTOMATED METHOD 07/29/2024 4:51 PM [facility] Blood, Urine Moderate(A) Negative LAB URINALYSIS - AUTOMATED METHOD 07/29/2024 4:51 PM [facility] RBC, Urine 20.1(H) 0 - 4 /HPF LAB URINALYSIS - AUTOMATED METHOD 07/29/2024 4:51 PM [facility] WBC, Urine 90.8(H) 0 - 4 /HPF LAB URINALYSIS - AUTOMATED METHOD 07/29/2024 4:51 PM EDT [facility] Squamous Epithelial, Urine 34 0 - 60 /LPF LAB URINALYSIS - AUTOMATED METHOD 07/29/2024 4:51 PM EDT [facility] Bacteria, Urine Many(A) Negative /HPF LAB URINALYSIS - AUTOMATED METHOD 07/29/2024 4:51 PM EDT [facility] Hyaline Casts, Urine 0.8 0 - 3 /LPF LAB URINALYSIS - AUTOMATED METHOD 07/29/2024 4:51 PM EDT [facility] Urine Urine specimen obtained by clean catch procedure / Unknown Non-blood Collection / Unknown 07/29/2024 2:20 PM EDT 07/29/2024 2:20 PM EDT us Malu MENJIVAR LAB URINE ORDERABLES Final Resul t [facility] [address] [place] [address], [place] [phone] * (ABNORMAL) Urinalysis with reflex microscopic and culture (07/29/2024 2:20 PM EDT) Specific [place] Urine 1.012 1.003 - 1.030 LAB URINALYSIS - AUTOMATED METHOD 07/29/2024 4:51 PM T [facility] pH, Urine 6.5 5.0 - 8.0 pH LAB URINALYSIS - AUTOMATED METHOD 07/29/2024 4:51 PM EDT [facility] Leukocytes, Urine Large(A) Negative LAB URINALYSIS - AUTOMATED METHOD 07/29/2024 4:51 PM EDT [facility] Nitrite, Urine Positive(A) Negative LAB URINALYSIS - AUTOMATED METHOD 07/29/2024 4:51 PM EDT [facility] Protein, Urine Negative <=Trace mg/dL LAB URINALYSIS - AUTOMATED METHOD 07/29/2024 4:51 PM EDT [facility] Glucose, Urine >=1000(A) Negative mg/dL LAB URINALYSIS - AUTOMATED METHOD 07/29/2024 4:51 PM [facility] Ketones, Urine Negative Negative mg/dL LAB URINALYSIS - AUTOMATED METHOD 07/29/2024 4:51 PM [facility] Urobilinogen , Urine 0.2 0.2 - 1.0 mg/dL LAB URINALYSIS - AUTOMATED METHOD 07/29/2024 4:51 PM [facility] Bilirubin, Urine Negative Negative LAB URINALYSIS - AUTOMATED METHOD 07/29/2024 4:51 PM [facility] Blood, Urine Moderate(A) Negative LAB URINALYSIS - AUTOMATED METHOD 07/29/2024 4:51 PM [facility] RBC, Urine 20.1(H) 0 - 4 /HPF LAB URINALYSIS - AUTOMATED METHOD 07/29/2024 4:51 PM [facility] WBC, Urine 90.8(H) 0 - 4 /HPF LAB URINALYSIS - AUTOMATED METHOD 07/29/2024 4:51 PM [facility] Squamous Epithelial, Urine 34 0 - 60 /LPF LAB URINALYSIS - AUTOMATED METHOD 07/29/2024 4:51 PM [facility] Bacteria, Urine Many(A) Negative /HPF LAB URINALYSIS - AUTOMATED METHOD 07/29/2024 4:51 PM [facility] Hyaline Casts, Urine 0.8 0 - 3 /LPF LAB URINALYSIS - AUTOMATED METHOD 07/29/2024 4:51 PM [facility] Urine Urine specimen obtained by clean catch procedure / Unknown Non-blood Collection / Unknown 07/29/2024 2:20 PM EDT 07/29/2024 2:20 PM EDT Khadra MENJIVAR LAB URINE ORDERABLES Fin al Result Performing Organization Address City/[facility]/ZIP Co de Phone Number [facility] [address] [place] [address], * Mcbride urine culture tube (07/29/2024 2:20 PM EDT) Extra Tube Hold for add-ons. 07/29/2024 4:02 PM EDT [facility] Comment:Auto resulted. Urine Urine specimen obtained by clean catch procedure / Unknown Non-blood Collection / Unknown 07/29/2024 2:20 PM EDT 07/29/2024 2:20 PM EDT [facility] [place]ba Mckeon [place] LAB URINE ORDERABLES Fin al Result Performing Organization Address [facility] Co de Phone Number [facility] [address] [place] [address], * (ABNORMAL) Culture urine (07/29/2024 2:20 PM EDT) Culture, Urine >100,000 CFU/mL Enterobacter cloacae complex(A) TINA 08/01/2024 10:24 AM EDT [facility] Comment: The organism value for [...] MICROBIOLOGY - GENERAL ORDER JT Final Result [facility] ([facility]) [facility] [address] [place] [address], [place] [phone] * MG Mammo Digital Screening w Jimmy bilat (07/29/2024 2:03 PM EDT) Anatomical Region Laterality Modality Breast Bilateral Mammography 08/01/2024 8:07 AM EDT Impressions 08/01/2024 8:08 AM EDT No mammographic evidence of malignancy. BREAST DENSITY: B - There are scattered areas of fibroglandular density. BI-RADS CATEGORY: 1 - NEGATIVE RECOMMENDATION: Screening bilateral mammogram is recommended in 1 year. MAMMO LOCATION: [facility], [address] [place] [address], [phone], . -------- FINAL REPORT -------- Dictated By: Paula Gonzalez Dictated Date: 08/01/2024 08:07 ET Assigned Physician: Paula Gonzalez Reviewed and Electronically Signed By: Paula Gonzalez Signed Date: 08/01/2024 08:08 ET Workstation ID: [id number] Transcribed By: Self Edit Transcribed Date: 08/01/2024 [...] is recommended in 1 year. MAMMO LOCATION: [facility], [address] [place] [address], [phone], . -------- FINAL REPORT -------- Dictated By: Paula Gnozalez Dictated Date: 08/01/2024 08:07 ET Assigned Physician: Paula Gonzalez Reviewed and Electronically Signed By: Paula Gonzalez Signed Date: 08/01/2024 08:08 ET Workstation ID: [id number] Transcribed By: Self Edit Transcribed Date: 08/01/2024 [...] Blood UA POC Large Negative, Large Specific [place] UA POC 1.015 Ketones UA POC Negative [...] (World Health Organization Fracture Risk Assessment) [facility] Department of Internal Medicine recommends using [...] alternative screening schedule based on [address] [facility] May 15, 2011 for patients with osteopenia [...] years. (World HealthOrganization Fracture Risk Assessment) [facility] Department of Internal Medicine recommendsusing National [...] Final Result * Falls Risk Assessment (02/04/2024) [facility] Falls Risk Assessment abstracted Result [facility] HEALTH MAINTENANCE Final Result * Annual BMP Blood Test (12/09/2023) [facility] Annual BMP Blood Test abstracted Result [facility] HEALTH MAINTENANCE Final Result * Diabetes Eye Exam (08/11/2023) [facility] Diabetes: Annual Retina Eye Exam abstracted Result [facility] HEALTH MAINTENANCE Final Result * Depression Screening (07/02/2023) [facility] Depression Screening abstracted Result [facility] HEALTH MAINTENANCE Final Result * Urine Albumin Creatinine Ratio (12/26/2022) [facility] Urine Albumin Creatinine Ratio abstracted Result [facility] HEALTH MAINTENANCE Final Result * Lipid panel (12/26/2022) [facility] LDL/HDL Ratio 3 0 - 4 Triglycerides 135 0 - 150 mg/dL Cholesterol 153 0 - 200 mg/dL HDL 62 >=40 mg/dL LDL Cholesterol 64 0 - 100 mg/dL Blood Venous blood specimen / Unknown [facility] Provider LAB BLOOD ORDERABLES Jennifer l Result * Hepatitis C Screening (04/17/2016) [facility] Hepatitis C Screening abstracted [facility] Provider HEALTH MAINTENANCE Final Result * Colonoscopy (07/28/2011) [facility] Colonoscopy abstracted, no interpretation Anatomical Region Laterality Modality Other Historical Provider HEALTH MAINTENANCE Final Result * Diabetes Foot Exam (11/17/2003) [facility] Diabetes: Annual Foot Exam abstracted [facility] Provider HEALTH MAINTENANCE Final Result from Last 3 Months or Most Recently Relevant to Health Maintenance [place] [address] [address] [place] [address] MEDICARE Member Subscriber Plan / Payer (Ef fective 2019-Present) Name:Gloria La Nena M Relation to Subscriber:Self Name:Gloria La Nena Miley Payer ID:[id number] Group ID:[id number] Type:Not on file Address: [place] [address] [address] [id number] Care Teams Cotton Classer Aide Relationship Specialty Start Date End Date Carmina Ayala MD [address] [place] [address] [phone] PCP - General Internal Medicine 03/09/24
[2024-09-20 10:54] LABS: B Type Natriuretic Peptide 323 pg/mL (<100)
[2024-09-20 11:28] LABS: Alanine Aminotransferase 18 U/L (0-31); Albumin Level 4.2 g/dL (3.5-5.0); Alkaline Phosphatase 114 U/L (39-117); Anion Gap 15 (12-20); Aspartate Amino Transferase 29 U/L (5-31); Bilirubin Direct 0.2 mg/dL (0.0-0.5); Bilirubin Total 0.5 mg/dL (0.0-1.0); Blood Urea Nitrogen 35 mg/dL (9-16); Calcium 9.5 mg/dL (8.4-10.2); Carbon Dioxide 24 mmol/L (22-29); Chloride 103 mmol/L (96-108); Estimated Glomerular Filt Rate 31; Glucose Random 157 mg/dL (60-115); Potassium 4.3 mmol/L (3.3-5.1); Sodium 138 mmol/L (135-145); Total Protein 7.6 g/dL (6.5-8.0)
== END 2024-09-20 09:11 | disposition home or self-care (01) ==
LOC: HO.LAB 09:10
PROVIDERS: Nurse Practitioner Family; PCP Internal Medicine; Visit Provider Physician Assistant Medical
DX: I50.9 Heart failure, unspecified (principal); R74.01 Elevation of levels of liver transaminase levels; N17.9 Acute kidney failure, unspecified
CPT/HCPCS: 36415; 80048; 80076; 83880

== ENCOUNTER → 2024-11-01 23:59 | Outpatient (BNV) | payer OTHER, SELFPAY ==
[2021-10-15 11:10] VITALS: BP 110/70; BMI 46.0
--- NOTE | 2024-11-02 15:03 | A.OFFVIS_ITS ---
Intake Visit Reasons: Remote ICD check- [facility] Allergies No Known Allergies Allergy (Verified 09/07/24 04:04) [facility] Medical History Chronic lung disease CHF (congestive heart failure) Biventricular ICD (implantable cardioverter-defibrillator) in place CHF (congestive heart failure) Sleep apnea Presence of CardioMEMS HF system Hx of myocardial infarction Anxiety and depression Osteoarthritis Fatty liver Restrictive lung disease TAQUERIA treated with BiPAP Morbid obesity CAD (coronary artery disease) Non-rheumatic aortic stenosis Atherosclerotic cardiovascular disease Acute on chronic systolic and diastolic heart failure, NYHA class 3 Leukocytosis Dyspnea Transaminitis Hypoxia Congestive heart failure TAQUERIA (obstructive sleep apnea) NSVT (nonsustained ventricular tachycardia) Cardiomyopathy Chronic systolic heart failure Diabetes mellitus HLD (hyperlipidemia) HTN (hypertension) Surgical History History of incision and drainage Status post coronary artery bypass graft Stented coronary artery Hx of CABG History of cardiac cath Hx of cardiac cath Hx of cardiac cath Hx of appendectomy History of cholecystectomy Family History Father No problems noted. Mother No problems noted. Social History Household Members: Family Household Members Other:: son and daughter in law Housing: Apartment Are you a primary transitional care manager to a significant other at home: No Do you presently have visiting nurse or other home services: No Alcohol intake: never Comment: chronic back pain Patient Tobacco Use Status: Current everyday Tobacco user Tobacco use type: Cigarette Cigarette Packs Per Day: 0.5 Cigarettes Per Day: 10.0 Years Smoked: 50 years e-Cigarette/Vaping Use: Never Used Second Hand Smoke Exposure: Yes Advance Directives Date on File: 11/07/22 service: No Current occupational status: unemployed and disabled Current occupation: rt hand Office Procedures Cardiac Device Check Cardiac Device Check Details: Remote ICD report generated 11/01/2024. ICD function is adequate [id number] Cardiac Interrogation, implant defibrillator w/interim Procedure code (CPT) selection complete Assessment & Plan Assessment & Plan (1) Biventricular ICD (implantable cardioverter-defibrillator) in place: Comment: Michael Guerra Code(s): Z95.810 - Presence of automatic (implantable) cardiac defibrillator Category: Medical Plan: See above Coding Level of Care Code Procedure Only Diagnoses Biventricular ICD (implantable cardioverter-defibrillator) in place Z95.810 CPT Codes Cardiac Device Check - Cardiac Device 13: [id number] Cardiac Interrogation, implant defibrillator w/interim ([id number])
== END ==
PROVIDERS: PCP Internal Medicine; Visit Provider Internal Medicine Cardiovascular Disease
DX: Z45.02 Encounter for adjustment and management of automatic implantable cardiac defibrillator (principal)
CPT/HCPCS: 93295

== ENCOUNTER 2024-12-11 18:45 | Inpatient (IN) | payer OTHER, SELFPAY ==
[2021-10-15 11:10] VITALS: BP 110/70; BMI 46.0
--- NOTE | 2024-12-11 | ECG_ITS ---
Test Reason : REPEAT Blood Pressure : */* mmHG Vent. Rate : 71 BPM Atrial Rate : 71 BPM P-R Int : 98 ms QRS Dur : 156 ms QT Int : 510 ms P-R-T Axes : 96 237 107 degrees QTcB Int : 554 ms Atrial-sensed ventricular-paced rhythm Biventricular pacemaker detected Abnormal ECG When compared with ECG of 11-Dec-2024 19:02, No significant change was found Referred By: Santiago Shields Electronically Signed By: AVTAR POLLACK MD
--- NOTE | ~2024-12-11 | XR_ITS ---
CLINICAL HISTORY: SOB 2 view chest x-ray Comparison: 09/07/2024 Findings: Lungs are clear without acute infiltrates. No pneumothorax. Heart size enlarged. No acute bony abnormalities. Sternotomy. Left pacemaker is unchanged. Impression: No acute processes This document has been electronically signed by: Prieto Reyes MD on 12/11/2024 20:02:50
[2024-12-11 18:54] VITALS: BP 151/134; BP 219/82; PULSE 81; PULSE 87; RESP 18; TEMP 36.7; O2SAT 89; O2SAT 93; BMI 40.3
--- NOTE | 2024-12-11 19:00 | ECG_ITS ---
Test Reason : SOB Blood Pressure : */* mmHG Vent. Rate : 71 BPM Atrial Rate : 71 BPM P-R Int : * ms QRS Dur : 144 ms QT Int : 504 ms P-R-T Axes : 53 239 79 degrees QTcB Int : 547 ms atrial-sensed ventricular-paced complexes Abnormal ECG When compared with ECG of 07-Sep-2024 04:11, Vent. rate has decreased by 26 bpm Referred By: Santiago Shields Electronically Signed By: AVTAR POLLACK MD
[2024-12-11 19:16] VITALS: PULSE 68; RESP 21; O2SAT 93
[2024-12-11 19:17] LABS: MANUAL DIFF FLAG NO
[2024-12-11] MEDS: Albuterol Sulfate 2.5 MG, Albuterol Sulfate (0.083%) 2.5 MG 5 MG INHALE (19:17)
[2024-12-11 19:19] LABS: Hematocrit 42.1 % (37.0-47.0); Hemoglobin 14.3 g/dl (12.0-16.0); Imm Gran Abs Auto 0.04 X10*3/uL (0.00-0.03); Imm Gran Pct Auto 0.4 % (0.0-0.4); Lymphocytes Absolute Auto 3.6 X10*3/uL (1.2-4.9); Mean Corpuscular HGB Conc 34.0 g/dl (31.0-35.0); Mean Corpuscular Hemoglobin 31.4 pg (27.0-33.0); Mean Corpuscular Volume 92.5 fL (80.0-98.0); NRBC Abs Auto 0.000 X10*3/uL (0.0-0.012); NRBC Pct Auto 0.0 /100WBC (0.0-0.2); Platelet Count 109 X10*3/uL (160-400); Red Blood Count 4.55 X10*6/uL (4.20-5.50); White Blood Count 9.4 X10*3/uL (4.8-10.8)
[2024-12-11 19:33] LABS: Alanine Aminotransferase 16 U/L (0-31); Albumin Level 3.9 g/dL (3.5-5.0); Alkaline Phosphatase 104 U/L (39-117); Anion Gap 15 (12-20); Aspartate Amino Transferase 26 U/L (5-31); Blood Urea Nitrogen 20 mg/dL (9-16); Calcium 8.6 mg/dL (8.4-10.2); Carbon Dioxide 21 mmol/L (22-29); Chloride 113 mmol/L (96-108); Creatinine Clr Calc Pharmacy 37.1; Estimated Glomerular Filt Rate 38; Magnesium 2.4 mg/dL (1.6-2.6); Potassium 4.0 mmol/L (3.3-5.1); Sodium 145 mmol/L (135-145); Total Protein 6.6 g/dL (6.5-8.0)
--- NOTE | 2024-12-11 19:33 | ED.SOB ---
HPI - SOB/Dyspnea General Chief Complaint: Dyspnea Stated Complaint: copd exacerbation, bp 200/65 Time Seen by Provider: 12/11/24 18:58 Source: patient and EMS Mode of arrival: EMS Limitations: no limitations History of Present Illness ED Provider: Santiago EMNJIVAR HPI Narrative: The patient is a 69-year-old female with history of COPD, CHF, hypertension, hyperlipidemia, diabetes, morbid obesity, and pacemaker, presenting to the ED via EMS for evaluation of worsening shortness of breath over the past 2 days. Patient reports she does not use FiO2 at home but does use CPAP at night. The patient reports over the past 2 days she has experienced worsening shortness of breath, increasing cough productive of white sputum, and increased work of breathing. The patient reports no recent change in medications, no recent change in pedal edema, patient does report associated orthopnea and PND. The patient denies associated pleurisy, chest pain, fever/chills, nausea, vomiting, recent fall, recent sick contacts, or recent trauma. The patient does report she was recently treated for a UTI with Bactrim, finished antibiotics 2 days ago, reports she still has some residual suprapubic abdominal pain. The patient reports she has been compliant with all medications including her furosemide. EMS reports patient was hypoxic at 89% on room air, placed on FiO2 via nasal cannula with improvement. Patient also received methylprednisolone from EMS. Related Data Home Medications ?Medication ?Instructions ?Recorded ?Confirmed atorvastatin 80 mg tablet 80 mg PO BEDTIME 02/27/20 09/07/24 Held on 09/09/24. Instructions: hold until repeat LFTs done insulin aspart U-100 100 unit/mL 1 sliding scale dose subcut TIDAC 06/26/20 09/07/24 (3 mL) subcutaneous pen citalopram 20 mg tablet 20 mg PO DAILY 07/21/20 09/07/24 diphenhydramine HCl 50 mg/30 mL 50 mg PO BEDTIME PRN Sleep 08/15/23 09/07/24 oral liquid (ZzzQuil) insulin glargine 100 unit/mL (3 28 unit subcut BEDTIME 02/04/24 09/07/24 mL) subcutaneous pen (Lantus Solostar U-100 Insulin) sacubitril 97 mg-valsartan 103 mg 1 tab PO BEDTIME 10/15/24 05/14/25 tablet (Entresto) ipratropium 20 mcg-albuterol 100 1 puff inhalation QID PRN wheezing 03/29/24 09/07/24 mcg/actuation mist for inhalation (Combivent Respimat) rivaroxaban 20 mg tablet (Xarelto) 20 mg PO BEDTIME 08/29/24 09/07/24 Previous Rx's ?Medication ?Instructions ?Recorded spironolactone 25 mg tablet 25 mg PO DAILY 90 days #90 tabs 05/06/24 (Aldactone) furosemide 40 mg tablet 40 mg PO .COMPLEX #300 tabs 12/02/24 carvedilol 25 mg tablet 25 mg PO BID #180 tabs 12/09/24 Allergies Allergy/AdvReac Type Severity Reaction Status Date / Time No Known Allergies Allergy Verified 12/11/24 18:56 Review of Systems Review of Systems: Yes all other systems are reviewed and are negative [facility] Past Medical History Medical History Chronic lung disease CHF (congestive heart failure) Biventricular ICD (implantable cardioverter-defibrillator) in place CHF (congestive heart failure) Sleep apnea Presence of CardioMEMS HF system Hx of myocardial infarction Anxiety and depression Osteoarthritis Fatty liver Restrictive lung disease [place] treated with BiPAP Morbid obesity CAD (coronary artery disease) Non-rheumatic aortic stenosis Atherosclerotic cardiovascular disease Acute on chronic systolic and diastolic heart failure, NYHA class 3 Leukocytosis Dyspnea Transaminitis Hypoxia Congestive heart failure [place] (obstructive sleep apnea) NSVT (nonsustained ventricular tachycardia) Cardiomyopathy Chronic systolic heart failure Diabetes mellitus HLD (hyperlipidemia) HTN (hypertension) Surgical History History of incision and drainage Status post coronary artery bypass graft Stented coronary artery Hx of CABG History of cardiac cath Hx of cardiac cath Hx of cardiac cath Hx of appendectomy History of cholecystectomy Family History Family History Father No problems noted. Mother No problems noted. Social History Social History Household Members: Family Household Members Other:: son and daughter in law Housing: Apartment Are you a primary pediatric care coordinator to a significant other at home: No Do you presently have visiting nurse or other home services: No Alcohol intake: never Comment: chronic back pain Patient Tobacco Use Status: Current everyday Tobacco user Tobacco use type: Cigarette Cigarette Packs Per Day: 0.5 Cigarettes Per Day: 10.0 Years Smoked: 50 years Smoked in Last 30 Days: Yes e-Cigarette/Vaping Use: Never Used Second Hand Smoke Exposure: Yes Use of substances other than those prescribed or required for medical reasons: No Advance Directives: Yes Advance Directives on File: Yes Advance Directives Date on File: 11/07/22 service: No Current occupational status: unemployed and disabled Current occupation: rt hand Physical Exam Vital Signs: Vital Signs: Last Vital Signs Temp 98.1 F 12/11/24 18:54 Pulse 68 12/11/24 20:05 Resp 20 12/11/24 20:05 BP 135/54 L 12/11/24 20:05 Pulse Ox 93 12/11/24 18:54 O2 Del Method Room Air 12/11/24 20:05 BMI result Body Mass Index 40.3 CONSTITUTIONAL: The patient appears chronically ill, otherwise non-toxic, well nourished and in no acute distress. Vital signs as documented. HEAD: Atraumatic, normocephalic. EYES: EOMs grossly intact, pupils equal, conjunctiva clear, no exudate. ENT: Nares patent, no discharge. Airway patent, no audible stridor, visible mucosa is pink and moist without noted lesions. NECK: Trachea is midline, no obvious masses or gross abnormalities. CHEST: Symmetric movement, normal appearance. LUNGS: LS present, diminished throughout, minimal wheezing, no rales appreciated bilaterally, Non-labored work of breathing sitting up at rest with FiO2. CARDIAC: Regular Rhythm, S1/S2 appreciated, no murmurs, rubs or gallops. ABDOMEN: Abdomen soft x4 quadrants, positive tenderness of the suprapubic region and left lower quadrant, negative rebound, no palpable masses or organomegaly. : Deferred. EXTREMITIES: Normal tone, moves all extremities spontaneously without reported pain. No obvious acute injury or deformity noted. 2+ pitting edema noted bilaterally. NEURO: Alert and oriented x3, CN II-XII appear grossly intact. Cerebellar Functioning grossly intact. No obvious sensory or motor deficits. Speech clear and appropriate. PSYCH: normal affect, appropriate eye contact, fluid speech, with appropriate response to questioning. No reported suicidality or homicidality. SKIN: Warm, dry, color appropriate, normal turgor. No rashes noted. Medications Administered Discontinued Medications Generic Name Dose Route Start Last Admin Trade Name Marian PRN Reason Stop Dose Admin Albuterol Sulfate 2.5 mg/ 5 mg 12/11/24 19:15 12/11/24 19:17 Albuterol Sulfate 2.5 mg INHALE 12/11/24 19:16 5 mg ONCE ONE Administration Atorvastatin Calcium 80 mg 12/11/24 23:10 12/11/24 23:33 Atorvastatin Calcium 80 Mg Tablet PO 12/11/24 23:11 80 mg ONCE STA Administration Ceftriaxone Sodium 1 gm 12/11/24 22:28 12/11/24 22:54 Ceftriaxone Sodium 1 Gm Vial IVPUSH 12/11/24 22:29 1 gm ONCE ONE Administration Rivaroxaban 20 mg 12/11/24 23:10 12/11/24 23:33 Rivaroxaban 20 Mg Tablet PO 12/11/24 23:11 20 mg ONCE STA Administration Medical Decision Making Medical Decision Making MDM Narrative: 7:41 PM 12/11/2024 (Bridget MENJIVAR): The patient is a 69-year-old female presenting to the ED for evaluation of worsening shortness of breath over the past 2 days, patient has a history of CHF, COPD, hypertension, hyperlipidemia, diabetes, and pacemaker. The patient in the ED appears in no acute distress while at rest with FiO2 in the exam stretcher after receiving methylprednisolone from EMS. Patient however was noted to be hypoxic by EMS 89% on room air. The patient does not use FiO2 at home. The patient in the ED denies associated chest pain, pleurisy, nausea, vomiting, fever/chills. Patient does report some mild lower abdominal pain and was recently treated with Bactrim for a UTI, completed antibiotics 2 days ago. The patient's exam reveals moderately diminished breath sounds throughout with mild wheezing, no appreciated rales. The patient's bilateral lower extremity edema is equal and unchanged per patient report. The patient's presentation appears consistent with COPD, however a CHF component is also possible as the patient is currently hypertensive in the ED. we will obtain cardiac, metabolic, infectious, and urinary workup. We will obtain chest x-ray and treat with DuoNeb. 7:56 PM 12/11/2024 (Bridget MENJIVAR): This provider's received a phone call from the lab advising patient's troponin is 831. Patient continues denying any active chest pain, heart rate has actually improved since arrival in the ED, elevated troponin likely type 2 demand ischemia, we will reassess blood pressure, if persistently hypertensive we will consider nitro paste while awaiting BNP, if BNP elevated we will provide Lasix. We will trend troponin. 8:51 PM 12/11/2024 (Bridget MENJIVAR): Patient's repeat blood pressure is improved, currently 135/54, we will forego nitro paste at this time. BNP is still pending, we will repeat troponin at 2114. 10:22 PM 12/11/2024 (Bridget MENJIVAR): The patient's BNP is still pending, laboratory will be called to clarify the delay. The patient's repeat troponin is 868, on chart review of the patient's troponin has been elevated above 200 since 2020, since April of this year all troponins have been above 550. Urinalysis shows findings concerning for persistent UTI, we will treat with Rocephin. Patient's elevated troponin is likely secondary to demand, patient continues to deny any chest pain, however given the patient's increased troponin now in the 800s, persistent UTI despite completion of antibiotic regimen, and COPD/CHF exacerbation with new O2 requirement, the patient will be admitted. Patient does not meet sepsis criteria, however given the patient's UTI with failure of outpatient therapy, we will obtain lactic acid and blood cultures. If patient's lactic acid is elevated we will continue IV hydration based on ideal body weight versus actual body weight due to the patient's history of CHF and risk for fluid overload. 10:27 PM 12/11/2024 (Bridget MENJIVAR): Laboratory was contacted and advises the BNP analyzer is not functioning properly, they are attempting to troubleshoot but do not know when it will be back online. 11:57 PM 12/11/2024 (Bridget MENJIVAR): Patient's lactic acid is normal, no indication for sepsis fluid hydration. Admission/Observation Consideration of admission/observation: Escalation of care including admission/observation considered Consult Healthcare Provider Management of the patient was discussed with: Hospitalist Lab Data MDM Lab Attestation statement: I reviewed the patient's lab results. 12/11/24 19:12 12/11/24 19:12 Labs: Lab Results 12/11/24 12/11/24 12/11/24 Range/Units 19:12 21:16 21:54 WBC 9.4 (4.8-10.8) X10*3/uL RBC 4.55 (4.20-5.50) X10*6/uL Hgb 14.3 (12.0-16.0) g/dl Hct 42.1 (37.0-47.0) % MCV 92.5 (80.0-98.0) fL MCH 31.4 (27.0-33.0) pg MCHC 34.0 (31.0-35.0) g/dl RDW 16.1 H (11.0-16.0) % Plt Count 109 L (160-400) X10*3/uL MPV 12.4 H (9.4-12.3) fL Immature Gran % (Auto) 0.4 (0.0-0.4) % Neut % (Auto) 54.7 (45-73) % Lymph % (Auto) 38.1 (20-40) % [place] % (Auto) 4.4 (2-11) % Eos % (Auto) 1.7 (0-4) % Baso % (Auto) 0.7 (0-2) % Lymph # (Auto) 3.6 (1.2-4.9) X10*3/uL [place] # (Auto) 0.4 (0.1-1.2) X10*3/uL Eos # (Auto) 0.2 (0.0-0.4) X10*3/uL Baso # (Auto) 0.1 (0.0-0.2) X10*3/uL Abs Immat Gran (auto) 0.04 H (0.00-0.03) X10*3/uL Absolute Neuts (auto) 5.1 (2.0-8.3) x10*3/uL Absolute Nucleated RBC 0.000 (0.0-0.012) X10*3/uL Nucleated RBC % (auto) 0.0 (0.0-0.2) /100WBC Sodium 145 (135-145) mmol/L Potassium 4.0 (3.3-5.1) mmol/L Chloride 113 H (96-108) mmol/L Carbon Dioxide 21 L (22-29) mmol/L Anion Gap 15 (12-20) BUN 20 H (9-16) mg/dL Creatinine 1.38 (0.5-1.4) mg/dL Estim Creat Clear Calc 37.1 Estimated GFR 38 Random Glucose 200 H (60-115) mg/dL Lactic Acid (0.5-2.0) mmol/L Calcium 8.6 D (8.4-10.2) mg/dL Magnesium 2.4 (1.6-2.6) mg/dL Total Bilirubin 0.6 (0.0-1.0) mg/dL AST 26 (5-31) U/L ALT 16 (0-31) U/L Alkaline Phosphatase 104 (39-117) U/L Troponin I High Sens 831.6 H* 868.3 H* (<3.5-17.0) ng/L Total Protein 6.6 (6.5-8.0) g/dL Albumin 3.9 (3.5-5.0) g/dL Urine Color [place] A Urine Appearance Cloudy Urine pH 7.0 (5.0-9.0) Ur Specific [place] 1.025 (1.005-1.025) Urine Protein 100 (2+) H (Neg-Trace) mg/dL Urine Glucose (UA) >=1000 H (Negative) mg/dL Urine Ketones Negative (Negative) mg/dL Urine Blood Large (3+) H (Negative) Urine Nitrite Negative (Negative) Ur Leukocyte Esterase Moderate (2+) H (Negative) Urine RBC >20 H (0-2) /HPF Urine WBC >50 H (0-5) /HPF Ur Squamous Epith Cells 0-2 (0-2) /HPF Urine Bacteria Trace (None Seen) Hyaline Casts 0-2 (0-2) /LPF 12/11/24 Range/Units 22:50 WBC (4.8-10.8) X10*3/uL RBC (4.20-5.50) X10*6/uL Hgb (12.0-16.0) g/dl Hct (37.0-47.0) % MCV (80.0-98.0) fL MCH (27.0-33.0) pg MCHC (31.0-35.0) g/dl RDW (11.0-16.0) % Plt Count (160-400) X10*3/uL MPV (9.4-12.3) fL Immature Gran % (Auto) (0.0-0.4) % Neut % (Auto) (45-73) % Lymph % (Auto) (20-40) % [place] % (Auto) (2-11) % Eos % (Auto) (0-4) % Baso % (Auto) (0-2) % Lymph # (Auto) (1.2-4.9) X10*3/uL [place] # (Auto) (0.1-1.2) X10*3/uL Eos # (Auto) (0.0-0.4) X10*3/uL Baso # (Auto) (0.0-0.2) X10*3/uL Abs Immat Gran (auto) (0.00-0.03) X10*3/uL Absolute Neuts (auto) (2.0-8.3) x10*3/uL Absolute Nucleated RBC (0.0-0.012) X10*3/uL Nucleated RBC % (auto) (0.0-0.2) /100WBC Sodium (135-145) mmol/L Potassium (3.3-5.1) mmol/L Chloride (96-108) mmol/L Carbon Dioxide (22-29) mmol/L Anion Gap (12-20) BUN (9-16) mg/dL Creatinine (0.5-1.4) mg/dL Estim Creat Clear Calc Estimated GFR Random Glucose (60-115) mg/dL Lactic Acid 1.3 (0.5-2.0) mmol/L Calcium (8.4-10.2) mg/dL Magnesium (1.6-2.6) mg/dL Total Bilirubin (0.0-1.0) mg/dL AST (5-31) U/L ALT (0-31) U/L Alkaline Phosphatase (39-117) U/L Troponin I High Sens (<3.5-17.0) ng/L Total Protein (6.5-8.0) g/dL Albumin (3.5-5.0) g/dL Urine Color Urine Appearance Urine pH (5.0-9.0) Ur Specific [place] (1.005-1.025) Urine Protein (Neg-Trace) mg/dL Urine Glucose (UA) (Negative) mg/dL Urine Ketones (Negative) mg/dL Urine Blood (Negative) Urine Nitrite (Negative) Ur Leukocyte Esterase (Negative) Urine RBC (0-2) /HPF Urine WBC (0-5) /HPF Ur Squamous Epith Cells (0-2) /HPF Urine Bacteria (None Seen) Hyaline Casts (0-2) /LPF Independent Interpretation I performed an independent interpretation of an: EKG (EKG shows paced rhythm with a rate of 71, compared to previous on 09/07/2024 rate is decreased, otherwise unchanged.) Radiology Impression Discussion of test interpretation with radiology: I have reviewed the radiologist's reading. Radiologist Impression: CLINICAL HISTORY: SOB 2 view chest x-ray Comparison: 09/07/2024 Findings: Lungs are clear without acute infiltrates. No pneumothorax. Heart size enlarged. No acute bony abnormalities. Sternotomy. Left pacemaker is unchanged. Impression: No acute processes This document has been electronically signed by: Prieto Reyes MD on 12/11/2024 20:02:50 External Record Review External record reviewed: Outpatient record and Prior outpatient labs Prescription Management I considered prescription management with: Antibiotic Discharge Plan Discharge Clinical Impression: Acute exacerbation of chronic obstructive airways disease, Elevated troponin, Acute UTI (urinary tract infection), Failure of outpatient treatment Patient Disposition: Admitted As Inpatient Interventions: Admission Worksheet (ED) Last Done: 12/11/24 23:15
[2024-12-11 19:56] LABS: Troponin-I High Sensitivity 831.6 ng/L (<3.5-17.0)
[2024-12-11 20:05] VITALS: BP 135/54; PULSE 68; RESP 20
[2024-12-11 21:49] LABS: Troponin-I High Sensitivity 868.3 ng/L (<3.5-17.0)
[2024-12-11 22:06] LABS: Appearance Urine Cloudy; Glucose Urine UA >=1000 mg/dL (Negative); PH 7.0 (5.0-9.0); Specific Gravity - Urine 1.025 (1.005-1.025); UMIC TRIGGER UACC YES
[2024-12-11 22:07] LABS: UACC Culture Trigger YES
--- NOTE | 2024-12-11 23:16 | PM.IMHP ---
History of Present Illness Date of Service: 12/11/24 Attending physician on admission: Beckie Winston Chief Complaint: Shortness on breath, urinary symptoms La Nena Castro is a 69 years old woman with a past medical history significant for TAQUERIA on CPAP, COPD -no home O2, essential hypertension, hyperlipidemia, HFrEF s/p AICD, type 2 diabetes mellitus on insulin, PE on Xarelto was brought to the emergency department via EMS due to increasing shortness on breath. Denied chest pain, cough or palpitations. Over the last 2 days she also has been experiencing pelvic pain and noted that her urine is dark and some pain with urination. She denied fever. She reported chills. She was recently diagnosed with UTI and completed a course of Bactrim 3 days ago. She has a history of multiple UTIs due to Pseudomonas, E coli, Corynebacterium species, Proteus mirabilis, Enterococcus faecalis (no VRE) and Pseudomonas aeruginosa as. She denied nausea, vomiting or diarrhea. According to ED patient was found to have an oxygen saturation of 89% on room air that improved with supplemental oxygen. In the ED, she was found to have stable vital signs. Her oxygen saturation is normal on room air. Blood workup showed no leukocytosis or lactic acidosis. Hemoglobin is 14.3 and platelets 106. There are no significant electrolyte imbalances. CO2 is 21, anion gap 15, BUN 20 and creatinine 1.39. Glucose is 200. Lactic acid is 1.3. LFTs are normal. Troponin is 831.6 then 861.3. Urinalysis consistent with UTI and hematuria. CXR negative. ECG showed atrial sensed ventricular paced rhythm. ED tx: DuoNeb x1, ceftriaxone 1 g IV Review of Systems Review of Systems: All 12 systems were reviewed and normal except as noted in HPI. [facility] Medical History Chronic lung disease CHF (congestive heart failure) Biventricular ICD (implantable cardioverter-defibrillator) in place CHF (congestive heart failure) Sleep apnea Presence of CardioMEMS HF system Hx of myocardial infarction Anxiety and depression Osteoarthritis Fatty liver Restrictive lung disease TAQUERIA treated with BiPAP Morbid obesity CAD (coronary artery disease) Non-rheumatic aortic stenosis Atherosclerotic cardiovascular disease Acute on chronic systolic and diastolic heart failure, NYHA class 3 Leukocytosis Dyspnea Transaminitis Hypoxia Congestive heart failure TAQUERIA (obstructive sleep apnea) NSVT (nonsustained ventricular tachycardia) Cardiomyopathy Chronic systolic heart failure Diabetes mellitus HLD (hyperlipidemia) HTN (hypertension) Family History Father No problems noted. Mother No problems noted. Surgical History History of incision and drainage Status post coronary artery bypass graft Stented coronary artery Hx of CABG History of cardiac cath Hx of cardiac cath Hx of cardiac cath Hx of appendectomy History of cholecystectomy Social History Household Members: Family Household Members Other:: son and daughter in law Housing: Apartment Are you a primary career representative to a significant other at home: No Do you presently have visiting nurse or other home services: No Alcohol intake: never Comment: chronic back pain Patient Tobacco Use Status: Current everyday Tobacco user Tobacco use type: Cigarette Cigarette Packs Per Day: 0.5 Cigarettes Per Day: 10.0 Years Smoked: 50 years Smoked in Last 30 Days: Yes e-Cigarette/Vaping Use: Never Used Second Hand Smoke Exposure: Yes Use of substances other than those prescribed or required for medical reasons: No Advance Directives: Yes Advance Directives on File: Yes Advance Directives Date on File: 11/07/22 service: No Current occupational status: unemployed and disabled Current occupation: rt hand Meds Allergies Allergy/AdvReac Type Severity Reaction Status Date / Time No Known Allergies Allergy Verified 12/11/24 18:56 Active Medications: Current Medications Acetaminophen (Acetaminophen 325 Mg Tablet) 975 mg PO Q6H PRN PRN Reason: Pain, Mild 1-3,fever,headache Atorvastatin Calcium (Atorvastatin Calcium 80 Mg Tablet) 80 mg PO ONCE STA Stop: 12/11/24 23:11 Calcium Carbonate (Calcium Carbonate 750 Mg Tab.Chew) 750 mg PO Q4H PRN PRN Reason: Heartburn Dextrose (Dextrose 50 % 25 Gm/50 Ml Syringe) 25 gm IVPUSH Q15M PRN; Protocol PRN Reason: per Hypoglycemia Standing Ord. Glucose (Glucose Gel 15 Gm Gel..Gram.) 15 gm PO Q15M PRN; Protocol PRN Reason: per Hypoglycemia Standing Ord. Insulin Human Lispro (Insulin Lispro 100 Unit/Ml 3 Ml Vial) 0 unit SUBCUT QIDACHS [facility]; Protocol Magnesium Hydroxide (Milk Of Magnesia 30 Ml Oral.Susp) 30 ml PO DAILY PRN PRN Reason: Constipation Melatonin (Melatonin 3 Mg Tablet) 6 mg PO BEDTIME PRN PRN Reason: Insomnia Rivaroxaban (Rivaroxaban 20 Mg Tablet) 20 mg PO ONCE STA Stop: 12/11/24 23:11 Sodium Chloride (0.9 % Sodium Chloride Flush 3 Ml Syringe) 3 ml IVFLUSH [facility] Home Medications ?Medication ?Instructions ?Recorded ?Confirmed ?Last Taken ?Type atorvastatin 80 mg tablet 80 mg PO BEDTIME 02/27/20 09/07/24 09/06/24 History Held on 09/09/24. Instructions: hold until repeat LFTs done insulin aspart U-100 100 unit/mL 1 sliding scale dose subcut TIDAC 06/26/20 09/07/24 09/06/24 History (3 mL) subcutaneous pen citalopram 20 mg tablet 20 mg PO DAILY 07/21/20 09/07/24 09/06/24 History diphenhydramine HCl 50 mg/30 mL 50 mg PO BEDTIME PRN Sleep 08/15/23 09/07/24 09/06/24 History oral liquid (ZzzQuil) insulin glargine 100 unit/mL (3 28 unit subcut BEDTIME 02/04/24 09/07/24 09/06/24 History mL) subcutaneous pen (Lantus Solostar U-100 Insulin) sacubitril 97 mg-valsartan 103 mg 1 tab PO BEDTIME 02/09/24 09/07/24 09/06/24 History tablet (Entresto) ipratropium 20 mcg-albuterol 100 1 puff inhalation QID PRN wheezing 03/29/24 09/07/24 09/06/24 History mcg/actuation mist for inhalation (Combivent Respimat) rivaroxaban 20 mg tablet (Xarelto) 20 mg PO BEDTIME 08/29/24 09/07/24 09/06/24 History Physical Exam Vital Signs and Narrative: Vital Signs: Last Vital Signs Temp 98.1 F 12/11/24 18:54 Pulse 68 12/11/24 20:05 Resp 20 12/11/24 20:05 BP 135/54 L 12/11/24 20:05 Pulse Ox 93 12/11/24 18:54 O2 Del Method Room Air 12/11/24 20:05 BMI result Body Mass Index 40.3 Constitutional - Awake and Alert, No apparent distress. Pleasant. Cooperative. HEENT - PERRLA, EOMI Heart - S1S2, RRR, No edema Lungs - Normal lung expansion, Normal respiratory effort, No respiratory distress, CTA bilaterally Abdomen - NT / ND; +BS; No rebound or guarding Extremities - no calf tenderness bilaterally, no swelling Musculoskeletal - Normal inspection, normal ROM Skin - Warm/Dry Neurological - Alert & oriented x3. Moving all extremities spontaneously. Psychological - Appropriate affect Results Labs 12/11/24 19:12 12/11/24 19:12 Labs: Laboratory Results - last 24 hr 12/11/24 12/11/24 12/11/24 19:12 21:54 22:50 MCV 92.5 MCH 31.4 MCHC 34.0 RDW 16.1 H Plt Count 109 L MPV 12.4 H Immature Gran % (Auto) 0.4 Neut % (Auto) 54.7 Lymph % (Auto) 38.1 [place] % (Auto) 4.4 Eos % (Auto) 1.7 Baso % (Auto) 0.7 Lymph # (Auto) 3.6 [place] # (Auto) 0.4 Eos # (Auto) 0.2 Baso # (Auto) 0.1 Abs Immat Gran (auto) 0.04 H Absolute Neuts (auto) 5.1 Absolute Nucleated RBC 0.000 Nucleated RBC % (auto) 0.0 Anion Gap 15 Estim Creat Clear Calc 37.1 Estimated GFR 38 Random Glucose 200 H Lactic Acid 1.3 Calcium 8.6 D Magnesium 2.4 Total Bilirubin 0.6 AST 26 ALT 16 Alkaline Phosphatase 104 Total Protein 6.6 Albumin 3.9 Urine Color [place] A Urine Appearance Cloudy Urine pH 7.0 Ur Specific [place] 1.025 Urine Protein 100 (2+) H Urine Glucose (UA) >=1000 H Urine Ketones Negative Urine Blood Large (3+) H Urine Nitrite Negative Ur Leukocyte Esterase Moderate (2+) H Urine RBC >20 H Urine WBC >50 H Ur Squamous Epith Cells 0-2 Urine Bacteria Trace Hyaline Casts 0-2 Assessment and Plan (1) Urinary tract infection: Qualifiers: Urinary tract infection type: acute cystitis Hematuria presence: with hematuria Qualified Code(s): N30.01 - Acute cystitis with hematuria Status: Inactive (2) Acute exacerbation of chronic obstructive pulmonary disease (COPD): Status: Acute (3) COPD with acute exacerbation: Status: Resolved Plan La Nena Castro is a 69 y/o woman presents with: Acute cystitis + hematuria. Recently took a course of Bactrim. Hgb stable so will not hold Xarelto for now. Start treatment with cefepime 1 g IV q.12 hours. Blood and urine cultures obtained -will follow results. Monitor hemoglobin. Acute COPD exacerbation, improving; no hypoxia. Clear lungs now. CXR negative. Continue bronchodilator therapy as needed. Continue home inhalers. TAQUERIA. Nocturnal CPAP. HFrEF. s/p AICD. Continue Entresto, Coreg and diuretic. If BP allows. Tonight her BP is soft, so we will hold. Essential hypertension. Continue Coreg if BP allows. Elevated troponin, chronic. Denied chest pain. Hyperlipidemia. Continue statin. Type 2 diabetes mellitus. BG checks before meals at bedtime. Insulin sliding scale and Lantus. Diabetic diet. Hx of PE. Continue Xarelto. Mood disorder. Continue citalopram. Code status: Full DVT prophylaxis: Xarelto Med rec pending Patient will need hospitalization for at least 2 midnights for acute exacerbation of COPD and UTI associated with hematuria treatment with bronchodilator therapy and IV antibiotics, respectively; she also need continuous monitoring of vital signs and hemoglobin. Quality Stroke Does the patient have a stroke diagnosis?: No VTE Prior VTE?: No VTE Risk Level:: Medical - moderate - high VTE Device Contraindication: Treatment Not Indicated VTE Drug Contraindication: N/A - Med Ordered
[2024-12-12] VITALS (9 sets, daily range): BP systolic 148–158; BP diastolic 54–74; PULSE 67–89; RESP 14–18; TEMP 36.3–36.6; O2SAT 93–100; BMI 40.3
--- NOTE | 2024-12-12 01:23 | PC.NURSE ---
Pt provided with [place] bed and cold cloths for comfort per request. RT to bedside to assist with setting up the pt's bedside CPAP machine
[2024-12-12 04:38] LABS: MANUAL DIFF FLAG NO
[2024-12-12 04:40] LABS: Hematocrit 43.4 % (37.0-47.0); Hemoglobin 14.5 g/dl (12.0-16.0); Imm Gran Abs Auto 0.04 X10*3/uL (0.00-0.03); Imm Gran Pct Auto 0.6 % (0.0-0.4); Lymphocytes Absolute Auto 1.4 X10*3/uL (1.2-4.9); Mean Corpuscular HGB Conc 33.4 g/dl (31.0-35.0); Mean Corpuscular Hemoglobin 30.9 pg (27.0-33.0); Mean Corpuscular Volume 92.5 fL (80.0-98.0); NRBC Abs Auto 0.000 X10*3/uL (0.0-0.012); NRBC Pct Auto 0.0 /100WBC (0.0-0.2); Platelet Count 119 X10*3/uL (160-400); Red Blood Count 4.69 X10*6/uL (4.20-5.50); White Blood Count 7.0 X10*3/uL (4.8-10.8)
[2024-12-12 04:55] LABS: Anion Gap 16 (12-20); Blood Urea Nitrogen 21 mg/dL (9-16); Calcium 9.0 mg/dL (8.4-10.2); Carbon Dioxide 18 mmol/L (22-29); Chloride 111 mmol/L (96-108); Creatinine Clr Calc Pharmacy 43.9; Estimated Glomerular Filt Rate 46; Potassium 4.2 mmol/L (3.3-5.1); Sodium 141 mmol/L (135-145)
[2024-12-12 07:06] LABS: Glucose, Whole Blood 259 mg/dL (60-115)
[2024-12-12] MEDS: Albuterol/Iprat 2.5/0.5MG 3 ML AMPUL.NEB INHALE ×2 (07:32→16:15)
--- NOTE | 2024-12-12 08:46 | PHA.MEDREC ---
Pharmacy Consult ? Medication Reconciliation Pharmacy has completed the medication reconciliation. Spoke to patient to confirm med list. Patient states she is no longer taking Citalopram 20 mg, Combivent Respimat, Entrsto, and Spironalactone 20 mg. Patient states she last had her medications last night.
--- NOTE | 2024-12-12 08:49 | PHA.MEDREC ---
Addendum entered by Steve Smith RPh 12/12/24 08:53: Reviewed by [facility] Original Note: Pharmacy Consult ? Medication Reconciliation Pharmacy has completed the medication reconciliation. Spoke to patient to confirm med list. Patient states she is no longer taking Citalopram 20 mg, Combivent Respimat, Entrsto, and Spironalactone 20 mg. Patient confirmed Furosemide 80 mg (2x 40mg) QAM and 40 mg QPM and may take and additional 40 mg in the evening when instructed by provider. Patient states she last had her medications last night.
--- NOTE | 2024-12-12 11:42 | MHC.CM.PN ---
PT LIVES WITH [facility] WILL NEED A RIDE HOME WHEN DCD PT HAD NO PREVIOUS SERVICES DC PL;[facility]
--- NOTE | 2024-12-12 12:06 | PC.NURSE ---
Moving to overflow ED.
[2024-12-12 12:31] LABS: Glucose, Whole Blood 315 mg/dL (60-115)
[2024-12-12 16:33] LABS: Glucose, Whole Blood 157 mg/dL (60-115)
--- NOTE | 2024-12-12 17:50 | P.PNIM_ITS ---
Subjective Subjective Date of Service: 12/12/24 Interval History: No new complaints today. Lying in bed comfortably. The patient presented to hospital due to sudden onset hematuria. She has an appointment in the outpatient setting with Urology; wished to present to hospital for further evaluation. No respiratory complaints Review of Systems Review of Systems: Yes all other systems are reviewed and are negative Physical Exam 2 Exam: Exam: General: A&O x3, oriented to time place person and situation, comfortable, no pain Cardiac: S1, S2 auscultated with no S3/4, no MRG. Well perfused. Respiratory: Normal breath sounds auscultated throughout all lung zones, without wheezing, rales. Normal rate. GI/ : No abdominal pain on palpation, no masses or distentions. MSK: Normal ambulation without pain at bony prominences or musculature Neurological: Normal neurological examination on overview, without obvious CN II-XII abnormalities. Vital Signs: Vital Signs: Last Vital Signs Temp 97.7 F 12/12/24 14:00 Pulse 74 12/12/24 16:18 Resp 16 12/12/24 16:18 BP 158/74 H 12/12/24 14:00 Pulse Ox 99 12/12/24 14:00 O2 Del Method Room Air 12/12/24 14:00 BMI result Body Mass Index 40.3 Objective Data Active Medications Acetaminophen (Acetaminophen 325 Mg Tablet) 975 mg PO Q6H PRN PRN Reason: Pain, Mild 1-3,fever,headache Albuterol/Ipratropium (Albuterol/Iprat 2.5/0.5mg 3 Ml Ampul.Neb) 3 ml INHALE RQ4H WHILE AWAKE [facility] Last Admin: 12/12/24 16:15 Dose: 3 ml Documented By: CAL Calcium Carbonate (Calcium Carbonate 750 Mg Tab.Chew) 750 mg PO Q4H PRN PRN Reason: Heartburn Dextrose (Dextrose 50 % 25 Gm/50 Ml Syringe) 25 gm IVPUSH Q15M PRN; Protocol PRN Reason: per Hypoglycemia Standing Ord. Glucose (Glucose Gel 15 Gm Gel..Gram.) 15 gm PO Q15M PRN; Protocol PRN Reason: per Hypoglycemia Standing Ord. Cefepime HCl 1 gm/ Sodium (Chloride) 50 mls @ 100 mls/hr IV Q12H [facility] Last Infusion: 12/12/24 12:25 Dose: Infused Documented By: CLEMENT Insulin Human Lispro (Insulin Lispro 100 Unit/Ml 3 Ml Vial) 0 unit SUBCUT FAYDAMADDIE [facility]; Protocol Last Admin: 12/12/24 16:39 Dose: 2 unit Documented By: MORRIS Magnesium Hydroxide (Milk Of Magnesia 30 Ml Oral.Susp) 30 ml PO DAILY PRN PRN Reason: Constipation Melatonin (Melatonin 3 Mg Tablet) 6 mg PO BEDTIME PRN PRN Reason: Insomnia Sodium Chloride (0.9 % Sodium Chloride Flush 3 Ml Syringe) 3 ml IVFLUSH [facility] Last Admin: 12/12/24 15:23 Dose: Not Given Documented By: MORRIS Non-Admin Reason: See Note Labs 12/12/24 03:54 12/12/24 03:54 Labs: Laboratory Results - last 24 hr 12/11/24 12/11/24 12/11/24 19:12 21:54 22:50 MCV 92.5 MCH 31.4 MCHC 34.0 RDW 16.1 H Plt Count 109 L MPV 12.4 H Immature Gran % (Auto) 0.4 Neut % (Auto) 54.7 Lymph % (Auto) 38.1 [place] % (Auto) 4.4 Eos % (Auto) 1.7 Baso % (Auto) 0.7 Lymph # (Auto) 3.6 [place] # (Auto) 0.4 Eos # (Auto) 0.2 Baso # (Auto) 0.1 Abs Immat Gran (auto) 0.04 H Absolute Neuts (auto) 5.1 Absolute Nucleated RBC 0.000 Nucleated RBC % (auto) 0.0 Anion Gap 15 Estim Creat Clear Calc 37.1 Estimated GFR 38 POC Glucose Random Glucose 200 H Lactic Acid 1.3 Calcium 8.6 D Magnesium 2.4 Total Bilirubin 0.6 AST 26 ALT 16 Alkaline Phosphatase 104 Total Protein 6.6 Albumin 3.9 Urine Color [place] A Urine Appearance Cloudy Urine pH 7.0 Ur Specific [place] 1.025 Urine Protein 100 (2+) H Urine Glucose (UA) >=1000 H Urine Ketones Negative Urine Blood Large (3+) H Urine Nitrite Negative Ur Leukocyte Esterase Moderate (2+) H Urine RBC >20 H Urine WBC >50 H Ur Squamous Epith Cells 0-2 Urine Bacteria Trace Hyaline Casts 0-2 08/12/12/24 12/12/24 03:54 06:59 12:27 MCV 92.5 MCH 30.9 MCHC 33.4 RDW 16.0 Plt Count 119 L MPV 12.3 Immature Gran % (Auto) 0.6 H Neut % (Auto) 77.9 H Lymph % (Auto) 20.5 [place] % (Auto) 0.9 L Eos % (Auto) 0.0 Baso % (Auto) 0.1 Lymph # (Auto) 1.4 [place] # (Auto) 0.1 Eos # (Auto) 0.0 Baso # (Auto) 0.0 Abs Immat Gran (auto) 0.04 H Absolute Neuts (auto) 5.5 Absolute Nucleated RBC 0.000 Nucleated RBC % (auto) 0.0 Anion Gap 16 Estim Creat Clear Calc 43.9 Estimated GFR 46 POC Glucose 259 H 315 H Random Glucose 285 H Lactic Acid Calcium 9.0 Magnesium Total Bilirubin AST ALT Alkaline Phosphatase Total Protein Albumin Urine Color Urine Appearance Urine pH Ur Specific [place] Urine Protein Urine Glucose (UA) Urine Ketones Urine Blood Urine Nitrite Ur Leukocyte Esterase Urine RBC Urine WBC Ur Squamous Epith Cells Urine Bacteria Hyaline Casts 12/12/24 16:28 MCV MCH MCHC RDW Plt Count MPV Immature Gran % (Auto) Neut % (Auto) Lymph % (Auto) [place] % (Auto) Eos % (Auto) Baso % (Auto) Lymph # (Auto) [place] # (Auto) Eos # (Auto) Baso # (Auto) Abs Immat Gran (auto) Absolute Neuts (auto) Absolute Nucleated RBC Nucleated RBC % (auto) Anion Gap Estim Creat Clear Calc Estimated GFR POC Glucose 157 H Random Glucose Lactic Acid Calcium Magnesium Total Bilirubin AST ALT Alkaline Phosphatase Total Protein Albumin Urine Color Urine Appearance Urine pH Ur Specific [place] Urine Protein Urine Glucose (UA) Urine Ketones Urine Blood Urine Nitrite Ur Leukocyte Esterase Urine RBC Urine WBC Ur Squamous Epith Cells Urine Bacteria Hyaline Casts Assessment and Plan (1) HTN (hypertension): Status: Acute (2) Restrictive lung disease: Status: Acute (3) Acute exacerbation of chronic obstructive airways disease: Status: Acute Plan La Nena Castro is a 69 y/o woman presents with: Acute cystitis + hematuria. Recently took a course of Bactrim. Hgb stable so will not hold Xarelto for now. Start treatment with cefepime 1 g IV q.12 hours. Blood and urine cultures obtained -will follow results. Monitor hemoglobin. Acute COPD exacerbation, improving; no hypoxia. Clear lungs now. CXR negative. Continue bronchodilator therapy as needed. Continue home inhalers. TAQUERIA. Nocturnal CPAP. HFrEF. s/p AICD. Continue Entresto, Coreg and diuretic. If BP allows. Tonight her BP is soft, so we will hold. Essential hypertension. Continue Coreg if BP allows. Elevated troponin, chronic. Denied chest pain. Hyperlipidemia. Continue statin. Type 2 diabetes mellitus. BG checks before meals at bedtime. Insulin sliding scale and Lantus. Diabetic diet. Hx of PE. Continue Xarelto. Mood disorder. Continue citalopram. Code status: Full DVT prophylaxis: Xarelto Total time managing care of this patient today: 35 minutes. Quality Stroke Does the patient have a stroke diagnosis?: No VTE Prior VTE?: No VTE Risk Level:: Medical - moderate - high VTE Device Contraindication: Treatment Not Indicated VTE Drug Contraindication: N/A - Med Ordered
[2024-12-12 21:56] LABS: Glucose, Whole Blood 238 mg/dL (60-115)
[2024-12-12] MEDS: 0.9 % Sodium Chloride Flush 3 ML SYRINGE IVFLUSH (23:33)
[2024-12-13 03:38] VITALS: BP 173/75; PULSE 67; RESP 18; TEMP 36.2; O2SAT 95
[2024-12-13 06:28] VITALS: BP 174/75
[2024-12-13] MEDS: 0.9 % Sodium Chloride Flush 3 ML SYRINGE IVFLUSH (07:00)
[2024-12-13 07:23] LABS: Glucose, Whole Blood 155 mg/dL (60-115)
[2024-12-13 07:24] VITALS: BP 123/74; PULSE 64; RESP 18; TEMP 36.3; O2SAT 100
[2024-12-13] MEDS: Albuterol/Iprat 2.5/0.5MG 3 ML AMPUL.NEB INHALE (07:36)
[2024-12-13 07:41] VITALS: PULSE 62; RESP 16; O2SAT 99
--- NOTE | 2024-12-13 09:45 | MHC.CM.PN ---
Patient medically cleared for dc home self care via shuttle transport at 10:30am. RN aware.
--- NOTE | 2024-12-13 11:39 | P.DS_ITS ---
DS: Providers Provider Date of Service: 12/11/24 Date of admission: 12/11/24 23:06 Date of discharge: 12/13/24 Primary care physician: Carmina Martins MD Consults: 12/12/24 12:37 Consult to Urology Routine Consulting Provider: [facility] [place] [facility] Reason for consultation: haematuria and clot yesterday (13 hours ago). Has provider been notified: No Attending physician on discharge: Jenny Bruce DS: Diagnosis Discharge Diagnosis (1) HTN (hypertension): Status: Acute (2) Restrictive lung disease: Status: Acute (3) Acute exacerbation of chronic obstructive airways disease: Status: Acute DS: Summary Hospital Course Hospital Course: 69-year-old female, with a background history of COPD, hypertension, hyperlipidemia, smoker, presents to the hospital with sudden onset hematuria, admitted for acute uncomplicated urinary tract infection with superimposed hematuria and acute on chronic COPD exacerbation with hypoxia. As per admission note: Over the last 2 days she also has been experiencing pelvic pain and noted that her urine is dark and some pain with urination. She denied fever. She reported chills. She was recently diagnosed with UTI and completed a course of Bactrim 3 days ago. She has a history of multiple UTIs due to Pseudomonas, E coli, Corynebacterium species, Proteus mirabilis, Enterococcus faecalis (no VRE) and Pseudomonas aeruginosa as. She denied nausea, vomiting or diarrhea. According to ED patient was found to have an oxygen saturation of 89% on room air that improved with supplemental oxygen. In the ED, she was found to have stable vital signs. Her oxygen saturation is normal on room air. Blood workup showed no leukocytosis or lactic acidosis. Hemoglobin is 14.3 and platelets 106. There are no significant electrolyte imbalances. CO2 is 21, anion gap 15, BUN 20 and creatinine 1.39. Glucose is 200. Lactic acid is 1.3. LFTs are normal. Troponin is 831.6 then 861.3. Urinalysis consistent with UTI and hematuria. CXR negative. ECG showed atrial sensed ventricular paced rhythm. ED tx: DuoNeb x1, ceftriaxone 1 g IV Patient was admitted for acute cystitis with superimposed hematuria. She was treated with cefepime 1 g IV q.12 hours, and blood culture and urine cultures were obtained. Her COPD exacerbation rapidly resolved; without evidence of hypoxia or acute symptomology. Patient was eager to be discharged home, and plans to set up outpatient urological evaluation was determined. Of note, 1/2 blood cultures returned positive for GPCs. Suspected to be contaminant. Status at Discharge Cognitive/behavioral status at discharge: Stable, alert and oriented x3 Functional status at discharge: independent ambulation Overall status at discharge: patient is back to baseline Time Attestation Total time managing care of this patient today: 35 mintues. Discharge Coordination Time (in mins): 15 Quality: Safe Use of Opioids Does Pt have an Active Cancer Diagnosis on the Problem List?: No Quality: Stroke Does the patient have a stroke diagnosis?: No Physical Exam Exam: Exam: General: A&O x3, oriented to time place person and situation, comfortable, no pain Cardiac: S1, S2 auscultated with no S3/4, no MRG. Well perfused. Respiratory: Normal breath sounds auscultated throughout all lung zones, without wheezing, rales. Normal rate. GI/ : No abdominal pain on palpation, no masses or distentions. MSK: Normal ambulation without pain at bony prominences or musculature Neurological: Normal neurological examination on overview, without obvious CN II-XII abnormalities. Vital Signs: Vital Signs: Last Vital Signs Temp 97.4 F 12/13/24 07:24 Pulse 62 12/13/24 07:41 Resp 16 12/13/24 07:41 BP 123/74 12/13/24 07:24 Pulse Ox 100 12/13/24 07:24 O2 Del Method Room Air 12/13/24 07:24 BMI result Body Mass Index 40.3 DS: Data Data Completed and Pending Completed studies during hospitalization [Text1]: Procedures Assistance with Respiratory Ventilation, Less than 24 Consecutive Hours, Continuous Positive Airway Pressure (03/29/24) Dilation of Right Ureter with Intraluminal Device, Via Natural or Artificial Opening Endoscopic (02/09/24) Fluoroscopy of Right Kidney, Ureter and Bladder (02/09/24) Insertion of Infusion Device into Superior Vena Cava, Percutaneous Approach (02/09/24) Introduction of Vasopressor into Peripheral Vein, Percutaneous Approach (02/09/24) Ultrasonography of Superior Vena Cava, Guidance (02/09/24) Labs on day of discharge: Laboratory Results - last 24 hr 12/12/24 12/12/24 12/12/24 12:27 16:28 21:48 POC Glucose 315 H 157 H 238 H 12/13/24 07:05 POC Glucose 155 H Preliminary micro results at discharge 12/11/24 22:50 Blood Culture - Preliminary Blood - Venous Prelim: GPR Gram Stain only 12/11/24 22:50 Blood Culture - Preliminary Blood - Venous No growth after 24 hours. Discharge Plan Discharge Anticipated Discharge Date/Time: 12/13/24 09:15 Patient Disposition: Home, Self-Care Discharge Diagnosis: Acute hematuria with superimposed uncomplicated urinary tract infection, in the setting of acute on chronic exacerbation of COPD without hypoxia Referrals: Carmina Varela MD [Primary Care Provider, Internal Medicine] - 1 Week Discharge Medications: New cephalexin 500 mg capsule 500 mg PO BID Qty: 7 0RF Continued carvedilol 25 mg tablet 25 mg PO BID Qty: 180 2RF furosemide 40 mg tablet 80 mg PO DAILY furosemide 40 mg tablet 40 mg PO BEDTIME PRN (Reason: Edema) insulin glargine [Lantus Solostar U-100 Insulin] 100 unit/mL (3 mL) insulin pen 28 unit subcut BEDTIME Jardiance 25 mg tablet 25 mg PO DAILY furosemide 40 mg tablet 40 mg PO BEDTIME Rx Instructions: 40 mg orally furosemide 40 mg orally 2 tabs in am (80mg) and 1 tab in pm (40mg); Additional dose in the PM when directed by cardiology 90 days; furosemide 40 mg orally 2 tabs in am (80mg) and 1 tab in pm (40mg); Additional dose in the PM when directed by cardiology 90 days Xarelto 20 mg tablet 20 mg PO DAILY@1700 insulin aspart U-100 100 unit/mL (3 mL) insulin pen 1 sliding scale dose subcut TIDAC atorvastatin 80 mg tablet 80 mg PO BEDTIME Discharge Orders: Discharge Order (Routine); Ordered 12/13/24 Ordered By: Jenny Bruce Diet: Advance to usual diet Activity on Discharge: As tolerated Stand Alone Forms: Patient Portal Discharge page Print Language: Chinese Care Plan Goals: Follow-up with outpatient Urology for hematuria Continue antibiotics Follow-up with PCP Health Concerns: As above Plan of Treatment: As above Assessment: Overall, patient is stable and back to clinical baseline Discharge Date/Time: 12/13/24 11:06
[2024-12-13 12:42] LABS: B Type Natriuretic Peptide 899 pg/mL (<100)
== END 2024-12-13 11:06 | disposition home or self-care (01) | DRG 191 ==
LOC: HO.ED 22:59 → HO.EDOVER 23:14 → HO.S3 12-12 19:41
PROVIDERS: Physician Assistant; Admitting Provider Internal Medicine; Emergency Provider Emergency Medicine; PCP Internal Medicine; Visit Provider Hospitalist
DX: J44.1 Chronic obstructive pulmonary disease with (acute) exacerbation (principal); I50.22 Chronic systolic (congestive) heart failure; N30.01 Acute cystitis with hematuria; I25.10 Atherosclerotic heart disease of native coronary artery without angina pectoris; G47.33 Obstructive sleep apnea (adult) (pediatric); I11.0 Hypertensive heart disease with heart failure; F39 Unspecified mood [affective] disorder; E11.9 Type 2 diabetes mellitus without complications; Z86.711 Personal history of pulmonary embolism; Z95.810 Presence of automatic (implantable) cardiac defibrillator; Z79.4 Long term (current) use of insulin; Z79.01 Long term (current) use of anticoagulants; Z79.899 Other long term (current) drug therapy
CPT/HCPCS: 36415; 71046; 80048; 80053; 81001; 81003; 82947; 83605; 83735; 83880; 84484; 85025; 87040; 87086; 87205; 93005; 94640; 94660; 99285; J0692; J0696

== ENCOUNTER → 2024-12-11 19:00 | Outpatient (BNV) | payer OTHER, SELFPAY ==
[2021-10-15 11:10] VITALS: BP 110/70; BMI 46.0
== END ==
PROVIDERS: Admitting Provider Internal Medicine; Emergency Provider Emergency Medicine; PCP Internal Medicine; Visit Provider Internal Medicine Cardiovascular Disease
DX: I49.8 Other specified cardiac arrhythmias (principal)
CPT/HCPCS: 93010

== ENCOUNTER → 2024-12-11 19:00 | Outpatient (BNV) | payer OTHER, SELFPAY ==
[2021-10-15 11:10] VITALS: BP 110/70; BMI 46.0
== END ==
PROVIDERS: Emergency Provider Emergency Medicine; PCP Internal Medicine; Visit Provider Radiology Diagnostic Radiology
DX: R06.02 Shortness of breath (principal)
CPT/HCPCS: 71046

== ENCOUNTER → 2024-12-11 23:06 | Outpatient (BNV) | payer OTHER, SELFPAY ==
[2021-10-15 11:10] VITALS: BP 110/70; BMI 46.0
== END ==
PROVIDERS: Admitting Provider Internal Medicine; Emergency Provider Emergency Medicine; PCP Internal Medicine; Visit Provider Internal Medicine
DX: J44.1 Chronic obstructive pulmonary disease with (acute) exacerbation (principal); N30.01 Acute cystitis with hematuria; I10 Essential (primary) hypertension; J98.4 Other disorders of lung
CPT/HCPCS: 99223; 99232; 99239

== ENCOUNTER → 2025-01-31 23:59 | Outpatient (BNV) | payer OTHER, SELFPAY ==
[2021-10-15 11:10] VITALS: BP 110/70; BMI 46.0
--- NOTE | 2025-02-01 12:22 | MHC.OFFVIS ---
Intake Visit Reasons: Remote ICD check- [facility] Allergies No Known Allergies Allergy (Verified 12/11/24 18:56) [facility] Medical History (Updated 01/27/25 @ 19:08 by CARINA Faust) NSVT (nonsustained ventricular tachycardia) Chronic lung disease CHF (congestive heart failure) Biventricular ICD (implantable cardioverter-defibrillator) in place CHF (congestive heart failure) Sleep apnea Presence of CardioMEMS HF system Hx of myocardial infarction Anxiety and depression Osteoarthritis Fatty liver Restrictive lung disease TAQUERIA treated with BiPAP Morbid obesity CAD (coronary artery disease) Non-rheumatic aortic stenosis Atherosclerotic cardiovascular disease Acute on chronic systolic and diastolic heart failure, NYHA class 3 Leukocytosis Dyspnea Transaminitis Hypoxia Congestive heart failure TAQUERIA (obstructive sleep apnea) Cardiomyopathy Chronic systolic heart failure Diabetes mellitus HLD (hyperlipidemia) HTN (hypertension) Surgical History (Updated 12/21/24 @ 00:01 by Brooke Jenkins) History of incision and drainage Status post coronary artery bypass graft Stented coronary artery Hx of CABG History of cardiac cath Hx of cardiac cath Hx of cardiac cath Hx of appendectomy History of cholecystectomy Family History Father No problems noted. Mother No problems noted. Social History Household Members: Family Household Members Other:: son and daughter in law Housing: Apartment Are you a primary career guidance technician to a significant other at home: No Do you presently have visiting nurse or other home services: No Alcohol intake: never Comment: chronic back pain Patient Tobacco Use Status: Current everyday Tobacco user Tobacco use type: Cigarette Cigarette Packs Per Day: 0.5 Cigarettes Per Day: 10.0 Years Smoked: 50 years e-Cigarette/Vaping Use: Never Used Second Hand Smoke Exposure: No Advance Directives Date on File: 11/07/22 service: No Current occupational status: unemployed and disabled Current occupation: rt hand Office Procedures Cardiac Device Check Cardiac Device Check Details: Remote ICD report generated 01/31/2025. ICD function is adequate. Bi V pacing 97% of the time. Battery life is at 7 months [id number] Cardiac Interrogation, implant defibrillator w/interim Procedure code (CPT) selection complete Assessment & Plan Assessment & Plan (1) Biventricular ICD (implantable cardioverter-defibrillator) in place: Comment: Michael Guerra Code(s): Z95.810 - Presence of automatic (implantable) cardiac defibrillator Category: Medical Plan: See above Coding Level of Care Code Procedure Only Diagnoses Biventricular ICD (implantable cardioverter-defibrillator) in place Z95.810 CPT Codes Cardiac Device Check - Cardiac Device 13: [id number] Cardiac Interrogation, implant defibrillator w/interim ([id number])
== END ==
PROVIDERS: PCP Internal Medicine; Visit Provider Internal Medicine Cardiovascular Disease
DX: Z45.02 Encounter for adjustment and management of automatic implantable cardiac defibrillator (principal)
CPT/HCPCS: 93295

== ENCOUNTER 2025-02-21 11:06 | Outpatient (AMB) | payer OTHER, SELFPAY ==
[2021-10-15 11:10] VITALS: BP 110/70; BMI 46.0
--- NOTE | 2025-02-21 11:15 | A.OFFVIS_ITS ---
Vital Signs 02/21/25 11:17 Height 4 ft 11 in Weight 185 lb 3.013 oz BMI 37.4 BP 120/70 Blood Pressure Location Lt brachial Position Sitting Pulse 60 Intake Visit Reasons: f/u with [facility] check Intake Note: Follow-up with [facility] check munira good Armature Coil Winder Required: No Allergies No Known Allergies Allergy (Verified 12/11/24 18:56) Medication List - Last Reconciled 02/21/25 by Db Martino MD atorvastatin 80 mg PO BEDTIME carvedilol 25 mg PO BID empagliflozin (Jardiance) 25 mg PO DAILY furosemide 80 mg PO DAILY furosemide 40 mg PO BEDTIME furosemide 40 mg PO BEDTIME PRN insulin aspart U-100 1 sliding scale dose subcut TIDAC insulin glargine (Lantus Solostar U-100 Insulin) 28 units subcut BEDTIME rivaroxaban (Xarelto) 20 mg PO DAILY@1700 HPI Comments Details: [place] comes for follow-up. Last admitted for heart failure in August this year. At that time on discharge she was on Entresto therapy. Although currently she does not have Entresto on her regimen. She does not recall taking recently and says that there was never refilled. Patient denies any worsening heart failure symptoms. She was recently admitted with UTI. She denies any prolonged palpitation irregular heartbeat. No lightheadedness, syncope. Denies any bleeding issues or neurologic events. Denies any exertional chest pain. Taking her medications but takes Lasix more towards suppertime. [facility] Medical History (Updated 02/21/25 @ 12:21 by Db Martino MD) CAD (coronary artery disease) NSVT (nonsustained ventricular tachycardia) Chronic lung disease CHF (congestive heart failure) Biventricular ICD (implantable cardioverter-defibrillator) in place CHF (congestive heart failure) Sleep apnea Presence of CardioMEMS HF system Hx of myocardial infarction Anxiety and depression Osteoarthritis Fatty liver Restrictive lung disease [place]IA treated with BiPAP Morbid obesity Non-rheumatic aortic stenosis Atherosclerotic cardiovascular disease Acute on chronic systolic and diastolic heart failure, NYHA class 3 Leukocytosis Dyspnea Transaminitis Hypoxia Congestive heart failure TAQUERIA (obstructive sleep apnea) Cardiomyopathy Chronic systolic heart failure Diabetes mellitus HLD (hyperlipidemia) HTN (hypertension) Surgical History History of incision and drainage Status post coronary artery bypass graft Stented coronary artery Hx of CABG History of cardiac cath Hx of cardiac cath Hx of cardiac cath Hx of appendectomy History of cholecystectomy Family History Father No problems noted. Mother No problems noted. Social History Household Members: Family Household Members Other:: son and daughter in law Housing: Apartment Are you a primary career coordinator to a significant other at home: No Do you presently have visiting nurse or other home services: No Alcohol intake: never Comment: chronic back pain Patient Tobacco Use Status: Current everyday Tobacco user Tobacco use type: Cigarette Cigarette Packs Per Day: 0.5 Cigarettes Per Day: 10.0 Years Smoked: 50 years e-Cigarette/Vaping Use: Never Used Second Hand Smoke Exposure: No Advance Directives Date on File: 11/07/22 service: No Current occupational status: unemployed and disabled Current occupation: rt hand Review of Systems Const Denies chills, Denies fatigue, Denies fever(s), Denies frequent falls, Denies weakness, Denies weight gain and Denies weight loss ENT Denies dizziness Card Denies chest pain, Denies leg edema, Denies lightheadedness, Denies palpitations, Denies dyspnea, Denies dyspnea on exertion, Denies orthopnea and Denies other (loss of consciousness) Resp Denies cough, Denies dyspnea and Denies dyspnea on exertion GI Denies hematochezia and Denies change in stool character Musc Denies abnormal gait, Denies muscle weakness, Denies numbness, Denies radiating pain into limb and Denies tingling Neuro Denies abnormal gait, Denies dizziness, Denies frequent falls, Denies numbness, Denies tingling and Denies weakness Endo Denies fatigue and Denies palpitations Physical Exam Vital Signs: Last Vital Signs Pulse 60 02/21/25 11:17 BP 120/70 02/21/25 11:17 BMI result Body Mass Index 37.4 Const Other: morbidly obese General: cooperative, healthy appearing, comfortable, no acute distress and poor hygiene Nutritional Appearance: obese Orientation/consciousness: patient oriented x3 Neck Neck: Yes normal visual inspection Resp Effort & Inspection: normal respiratory effort Auscultation: clear to auscultation bilaterally, no crackles, no rales, no rhonchi and no wheezes Cardio Rate: regular rate Rhythm: regular rhythm Heart sounds: S1 normal heart sound present, S2 normal heart sound present, no murmurs and no rubs Neuro General: patient oriented x3 Extrem General: Yes normal to inspection, No no pedal edema and No calf tenderness Psych Appearance: grossly normal Mental Status: mental status grossly normal Speech and movement: Normal speech and movement present Office Procedures Cardiac Device Check Cardiac Device Check Details: Biventricular [facility] ICD in place. Programmed in DDDR at 60 beats per minute. Atrial and biventricular pacing thresholds are adequate and in auto capture mode. Atrial ventricular sensing is excellent. Pacing and shock lead impedance is stable. Battery life is at 6.6 months. No significant arrhythmias noted. Biventricular pacing 99% of the time [id number] Cardiac Device Check, multi lead implantable defibrillator Procedure code (CPT) selection complete Assessment & Plan Assessment & Plan (1) Chronic systolic heart failure: Code(s): I50.22 - Chronic systolic (congestive) heart failure Category: Medical Plan: Patient with heart failure with reduced ejection fraction with moderate to severe LV systolic dysfunction with no recent hospitalization for heart failure. However she is not currently on guideline based medical therapy and some of Entresto got dropped off. She does not know why and thought that this was just discontinued by some provider. At this point time will reinstate Entresto 24-26 mg b.i.d.. Follow up in the office in 7-10 days and check blood pressure as well as BMP. Possible side effects were discussed. Continue otherwise neurohormonal modulation with Jardiance, carvedilol therapy. Clinically appears to be euvolemic and well compensated. Clinically NYHA class 2 symptoms. A dvised to take her 2nd dose of Lasix at noon time to avoid nocturia. She understands. Smoking cessation was advised. Advised to increase activity level and participate in weight loss program. (2) Biventricular ICD (implantable cardioverter-defibrillator) in place: Comment: [place], 2015 Code(s): Z95.810 - Presence of automatic (implantable) cardiac defibrillator Category: Medical Plan: Biventricular ICD in place, working well. Reprogrammed for adequate functioning. Will follow remotely for heart failure follow up in the clinic in 3 months time. (3) CAD (coronary artery disease): Code(s): I25.10 - Atherosclerotic heart disease of [place] coronary artery without angina pectoris Category: Medical Qualifiers: Coronary Disease-Associated Artery/Lesion type: unspecified vessel or lesion type [place] vs. transplanted heart: unspecified whether [place] or transplanted heart Associated angina: without angina Qualified Code(s): I25.10 - Atherosclerotic heart disease of [place] coronary artery without angina pectoris Plan: CAD with prior coronary artery bypass grafting with no current symptoms of angina. Continue aggressive vascular risk factor modification. Blood pressure is currently well optimized. Continue aggressive diabetes management goal hemoglobin A1c less than 7%. Goal LDL less than 70 mg/dL. Advised to call me with any new symptoms. Will follow up in the clinic in 3 months time after echocardiogram. Thank you for allowing me to partake in her care Coding Level of Care Code Est Pt Level 4 (12607) Complex EM visit Add On G2211 Diagnoses Chronic systolic heart failure I50.22 Biventricular ICD (implantable cardioverter-defibrillator) in place Z95.810 Coronary artery disease without angina pectoris, unspecified vessel or lesion type, unspecified whether [place] or transplanted heart I25.10 Coronary Disease-Associated Artery/Lesion type: unspecified vessel or lesion type [place] vs. transplanted heart: unspecified whether [place] or transplanted heart Associated angina: without angina CPT Codes Cardiac Device Check - Cardiac Device 6: 56984-KH Cardiac Device Check, multi lead implantable defibrillator ([id number])
[2025-02-21 11:17] VITALS: BP 120/70; PULSE 60; BMI 37.4
--- OUTSIDE RECORDS SUMMARY | 2025-02-21 14:21 | XMS_ITS | Patient Health Record ---
Author Organization [facility] Address [address] [place] [address] Care Team Providers Care Low Voltage Electrician Name Role Phone Alfred Vergara Mae [phone] Reason For Referral No Information Plan Of Treatment No Information
--- OUTSIDE RECORDS SUMMARY | 2025-02-21 14:21 | XMS_ITS | Continuity of Care Document ---
Author Name Emre Roper Address [address] [place] [address] Organization Unknown Address [address] [place] [address] Medications No known medications Problems No known problems
--- OUTSIDE RECORDS SUMMARY | 2025-02-21 14:21 | XMS_ITS | Encounter Summary ---
Author Organization [facility] Address [address] [place] [address] Encounters * CPT with Emre Roper at [facility] on 2024-10-08 mbr with complaints of pink tinge urine, frequency, denies any back pain, fever, abdominal pain. requesting [facility] visit for evaluation. { reasonForRequest : Urinary symptoms , patientReports : , denies :[], chiefComplaints : Urinary Symptoms , pmh :"Congestive Heart Failure, COPD/Asthma , allergies : No Known Drug Allergies&quo t;, otherAllergies : , painAssessment : , visitOutcom e : , additionalComments : Reviewed HPI- \n\n } Encountered patient, conscious alert and ambulatory. Patient reports approximately 48 hours of an increase in urinary urgency and frequency, accompanied by pain while urinating. Patient denies any fevers, chills, or back pain. Patient additionally reports a history of UTI, her most recent being 07/27 025. Urinalysis retrieved, values uploaded via [employer]. Skin warm, dry and of appropriate color for ethnicity. Head and neck, free of trauma and edema. -JVD. Breath sounds present, clear and equal bilaterally. Abdomen is soft, non-tender and non-distended. Extremities free of trauma edema. [facility] [place]: [facility] [place] they will order a urine culture and will treat for a suspected UTI based off patient???s urinalysis results. [facility] [place] prescription for treatment to a pharmacy of patient???s choice. Patient was encouraged to follow up with primary care or consider 911 if she were to develop fevers, chest pain, shortness of breath or back pain. Patient verbalizes understanding and states she is comfortable remaining home today. ORAL_MEDICATION, EKG, POC_BLOODWORK, GLUCOSE Written by Emre Roper on 2024-10-08
--- OUTSIDE RECORDS SUMMARY | 2025-02-21 14:21 | XMS_ITS | Encounter Summary ---
Author Organization [facility] Address [address] [place] [address] Phone Care Team Providers Care Associate Professor Of Forestry Name Role Phone Carmina Varela MD Primary Care Provider + Encounter Details Date Type Department Care Team (Late st Contact Info) Description 11/30/2024 Documentation Only [facility] [address] [place] [address] [place] [address] [place] [phone] Social History Tobacco Use Types Packs/Day Years Used Date Smoking Tobacco: Never Assessed Comments Unknown Sex and Gender Information Value Date Recorded Sex Assigned at Not on file Legal Sex Female 10:46 AM EDT Gender Identity Not on file Sexual Orientation Not on file documented as of this encounter Plan of Treatment Upcoming Encounters Date Type Department Care Team (Late st Contact Info) Description 03/14/2025 3:30 PM EST Office Visit [facility] [address] [place] [address] Marino Hopson MD [address] [place] [address] [place] [phone] documented as of this encounter Visit Diagnoses Not on filedocumented in this encounter Care Teams Associate Professor Of Forestry Relationship Specialty Start Date End Date Carmina Varela MD [address] [place] [phone] PCP - General 12/03/22 documented as of this encounter
--- OUTSIDE RECORDS SUMMARY | 2025-02-21 14:22 | XMS_ITS | Clinical Summary ---
Author Organization [facility], Address [address] [place] [address] [place] [address] Phone Care Team Providers Care Freezer Operator Name Role Phone Carmina Varela MD Primary Care Provider + Allergies No known active allergies Medications atorvastatin (LIPITOR) 80 MG tablet Take 80 mg by mouth 1 (one) time each day 09/03/19 23 Active carvedilol (COREG) 25 MG tablet Take 25 mg by mouth in the morning and 25 mg in the evening. 10/12/19 23 Active Jardiance 10 MG tablet Take by mouth 1 (one) time each day 11/13/19 23 Active Entresto 97-103 MG per tablet Take 1 tablet by mouth in the morning and 1 tablet in the evening. 09/20/19 23 Active Xarelto 20 MG tablet TAKE 1 TABLET BY MOUTH ONCE DAILY . MUST ADMINISTER WITH EVENING MEAL 10/10/19 23 Active furosemide (LASIX) 40 MG tablet See Instructions, 2 tab in AM and 1 tab in PM, Refills 0, Maintenance, 11/13/20 19:22:00 EDT, Instructions Replace Required Details, Partial fill upon patient request if the prescription is for a schedule II opioid drug. 11/14/19 21 Active citalopram (CeleXA) 40 MG tablet Take 0.5 tablets (20 mg total) by mouth 1 (one) time each day 90 tablet 3 02/01/20 25 Active citalopram (CeleXA) 20 MG tablet Take 20 mg by mouth 1 (one) time each day 02/07/20 23 025 Discontinued(R eorder (does not appear on AVS)) DULoxetine (Cymbalta) [address] capsule Take 1 capsule (30 mg total) by mouth 1 (one) time each day Do not crush or chew. 30 capsule 02/01/20 25 025 Discontinued Active Problems Problem Noted Date Diagnosed Date Stage 3b chronic kidney disease 12/05/2022 Encounters Date Type Department Care Team Description 01/31/2025 10:10 AM EDT Office Visit [facility] [address] [place] [address] Marino Hopson MD Stage 3b chronic kidney disease (HCC) (Primary Dx) 11/30/2024 Documentation Only [facility] [address] [place] [address] Susan Rivera MA from Last 3 Months Social History Tobacco [...] Visit [facility] [address] [place] [address] Marino Hopson MD [address] [place] [address] [place] [address] Health Maintenance Due Date Last Done Comments Breast Cancer Screening 1955 Colorectal Cancer Screening: Annual FOBT 2003 Colorectal Cancer Screening: Colonoscopy 2003 Colorectal Cancer Screening: Sigmoidoscopy 2003 Diabetes: Ophthalmology Exam 04/21/2023 Diabetes: Pedal Pulse Checked 04/21/2023 Diabetes: Sensory Foot Exam 04/21/2023 Diabetes: Visual Foot Exam 04/21/2023 Influenza Vaccine (#1) 2024 3, 03/15/2022, 01/03/2021, Additional history exists Diabetes: Hemoglobin A1C 03/02/2025 025, 11/30/2024, 04/21/2024, Additional history exists Pneumococcal Vaccine: 50+ Years (4 of 4 - PCV20 or PCV21) 09/30/2026 09/30/2021, 01/07/2017, 12/22/2011, Additional history exists Hepatitis B Vaccine Aged Out No longe r eligible based on patient's age to complete this topic Insurance [facility] [employer] SNP ([id number]) [place] [id number] Care Teams Freezer Operator Relationship Specialty Start Date End Date Carmina Varela MD [address] [place] [address] PCP - General 12/03/22
== END 2025-02-21 11:38 | disposition home or self-care (01) ==
LOC: HO.HCS 11:07
PROVIDERS: PCP Internal Medicine; Visit Provider Internal Medicine Cardiovascular Disease
DX: I50.22 Chronic systolic (congestive) heart failure (principal); Z95.810 Presence of automatic (implantable) cardiac defibrillator; I25.10 Atherosclerotic heart disease of native coronary artery without angina pectoris
CPT/HCPCS: 93284; 99214; G2211

== ENCOUNTER → 2025-02-21 11:06 | Outpatient (BNVA) | payer OTHER, SELFPAY ==
[2021-10-15 11:10] VITALS: BP 110/70; BMI 46.0
== END ==
PROVIDERS: PCP Internal Medicine; Visit Provider Internal Medicine Cardiovascular Disease
DX: Z45.02 Encounter for adjustment and management of automatic implantable cardiac defibrillator (principal); I50.22 Chronic systolic (congestive) heart failure; I25.10 Atherosclerotic heart disease of native coronary artery without angina pectoris; F17.210 Nicotine dependence, cigarettes, uncomplicated; Z79.899 Other long term (current) drug therapy
CPT/HCPCS: 93284; 99212

== ENCOUNTER → 2025-04-24 08:44 | Outpatient (REF) | payer OTHER, SELFPAY ==
[2021-10-15 11:10] VITALS: BP 110/70; BMI 46.0
--- OUTSIDE RECORDS SUMMARY | 2025-04-24 08:51 | XMS_ITS | Data Portability ---
Author Organization [facility] [employer] [facility], [facility] Address [address] [place] [address] Care Team Providers Care Service Center Assistant Name Role Phone HIM CCA OTHER Assessment Encounter Date Assessment Date Assessment LastModified by Organization Details LastModified Time 10/08/2024 10/08/2024 I have reviewed and agree with the assessment and plan as documented by the laborer landscape. I provided real time medical direction for this encounter and was immediately available to provide additional phone based assistance as needed. History as noted by laborer landscape. Pt with history of DM2, CAD s/p CABG, iCMP s/p ICD placement, PE, and CKD (most recent Cr 1.1, per recent nephrology note visit). Pt reports 2 days of UTI symptoms with urinary frequency, urgency and mild discomfort with urination. She has also noted mild pink tinge urine as well. She denies any abdominal or flank pain or any recent fevers, chills, nausea or vomiting. Of note, pt was diagnosed with UTI at her PCP's office on 07/28 and treated with 7 days of cefdinir with resolution of her symptoms. No UCx results from 07/28 noted in pt's EHR. On exam, pt afebrile with normal vitals except for elevated BP. No abdominal or CVA tenderness noted. Urine dip: 3+ leukocytes, 3+ blood, Nitrite positive. Impression: Pt with acute UTI, most recent UTI diagnosed and treated on 07/28. UCx obtained and will be sent to [facility]. I prescribe cefpodoxime 200mg q12h x7 days which the pt is told to start today. Pt instructed to f/u with [facility] or her PCP to have her UCx results checked if her symptoms are not resolving after 2-3 days of the antibiotics and to seek medical attention right away in the ED with any worsening or new symptoms, which are reviewed with her. [email or web address] Not available 10/08/2024 13:02:15 03/08/2025 03/08/2025 Ms. Castro is a 70 yo F with Congestive Heart Failure, COPD/Asthma and prior UTIs who is calling today with urinary sx. Per patient and medic, patient is endorsing dysuria and hematuria for about 2 weeks. Called today b ecause I was tired of having pain. Denies fever or chills. Last time she had this, she required antibiotics. Denies abdominal pain or flank pain. Has never had renal stones before. Is on xarelto and does have some form of CKD, doesn t recall the stage. No recent falls or injuries. Given the patient's presenting sx, patient is presenting with likely cystitis. Sounds less like pyelonephritis. Exam not consistent. No fevers c/f urosepsis or sepsis. Exam soft and nontender, unlikely renal stone. Based on urine POC findings, c/w UTI. Nitrite and LE positive. Plan to tx. Plan for keflex 500mg with medic PO and then rx for QID x 5 days. Ucx sent. Allergies reviewed and in accordance, will prescribe abx. Return precautions advised. Most recent renal notes reveal eGFR of 42, Cr: 1.37 and BUN: 23. Last UCx in 09/2024 notable for Proteus: Antibiotic RSLT#1 RSLT#2 RSLT#3 RSLT#4 Amoxicillin/Clav ulanic Acid S Ampicillin S Cefazolin S Cefepime S Cefoxitin S Cefpodoxime S Ceftriaxone S Ciprofloxacin S Ertapenem S Gentamicin S Levofloxacin S Meropenem S Nitrofurantoin R Piperacillin/Jose obactam S Tetracycline R Tobramycin S Trimethoprim/Sul fa S I provided real -time medical direction via phone for this encounter, and was available for additional phone based assistance as needed. I have reviewed and agree with the Assessment and Plan as documented by the Software Developer Manager. We discussed the diagnostic uncertainty of home visits and the risk associated with this. In this case the patient and I felt this to be an acceptable and reasonable amount of risk given the benefit of avoiding an ED visit. The patient given the opportunity to ask questions. Follow up with primary care was recommended, as needed. Advised if develops CP/severe SOB/turning blue/uncontrolle d n/v/d or black/bloody emesis or stool/ AMS/ syncope/ high fever unresponsive to APAP to call 911- verbalized understanding of instruction. [email or web address] Not available 03/08/2025 17:48:16 Plan of Treatment Reminders Order Date Submit Date Provider Last Modified By Organization Details Last Modified Time Details Appointments None recorded. Lab urinalysis , dipstick 2024 [facility], [address] [place] [address], [id number] 17:48:54 culture, urine 2024 [facility] (Centralized Electronic Ordering - All Locations), Patient Can Go To The Location Of Their Choice, [id number] 18:05:46 urinalysis , dipstick 2024 [facility], [address] [place] [address], [id number] 16:59:45 culture, urine 2024 [facility] (Centralized Electronic Ordering - All Locations), Patient Can Go To The Location Of Their Choice, [id number] 20:05:36 Referral None recorded. Procedures None recorded. Surgeries None recorded. Imaging None recorded. Medication Orders cephalexin 500 mg capsule 2024 [email or web address] [facility] [address] [place] [address], [id number], 16:41:17 cephalexin 500 mg tablet 2024 025 [facility] [address] [place] [address], [id number], 05:01:50 cefpodoxim e 200 mg tablet 2024 [facility] [address] [place] [address], [id number], 12:51:04 Patient TargetsNo targets recorded. Patient InstructionsNo instructions recorded. Reason for Referral None Reported. Results Created Date Observation Date Name Description Value Unit Range Abnormal Flag Note LastModifiedBy Organization Detail LastModifiedTime 10/09/19 25 10/10/2024 URINE CULTU RE, ROUTI NE urine culture, routine Final report abnormal Not Available [facility] ([facility]) [address] [place], [address], 10/10/2024 12:05:35 10/09/19 25 10/10/2024 URINE CULTU RE, ROUTI NE result 1 Proteu s mirabi lis abnormal Cefaz corey with an TINA <=16 predi cts susce ptibi lity to the oral agent s cefac margret, cefdi adriana, cefpo doxim e, cefpr ozil, cefur oxime , cepha lexin , and lorac arbef when used for thera py of uncom plica kota urina ry tract infec tions due to E. coli, Klebs iella pneum oniae , and Prote us mirab ilis. Great er than 100,0 00 colon y formi ng units per mL Not Available [facility] ([facility]) [address] [facility], [place], [address], 10/10/2024 12:05:35 10/09/19 25 10/10/2024 URINE CULTU RE, ROUTI NE antimicrobia l susceptibili ty Commen t S = Susce ptibl e; I = Inter media te; R = Resis tant P = Posit shelly; N = Negat shelly MICS are expre ssed in micro grams per mL Antib iotic RSLT# 1 RSLT# 2 RSLT# 3 RSLT# 4 Amoxi cilli n/Cla vulan ic Acid S Ampic illin S Cefaz corey S Cefep radha S Cefox itin S Cefpo doxim e S Ceftr iaxon e S Cipro floxa nicolas S Ertap enem S Genta micin S Levof loxac in S Merop enem S Nitro furan toin R Piper acill in/Ta zobac cano S Tetra cycli ne R Tobra mycin S Trime thopr im/Nava lfa S Not Available [facility] ([facility]) [address] [place], [address], 10/10/2024 12:05:35 03/08/2003/10/2025 URINE CULTU RE, LASHELL NE urine culture, routine Final report Not Available [facility] ([facility]) [address] [facility], [place], [address], 03/10/2025 18:05:53 03/08/2003/10/2025 URINE CULTU RE, LASHELL NE result 1 COMMEN T Mixed uroge nital donnie Great er than 100,0 00 colon y formi ng units per mL PREVI OUSLY REPOR KOTA ENTER OBACT ER CLOAC AE COMPL EX AND PROTE US - 100K CFU/M L ARE BOTH PART OF A MIXED UROGE NITAL DONNIE . Not Available [facility] ([facility]) [address] [facility], [place], [address], 03/10/2025 18:05:53 03/08/2003/10/2025 URINE CULTU RELASHELL NE result 2 Not applic able Not Available [facility] ([facility]) [address] [place], [address], 03/10/2025 18:05:53 Result Notes None recorded. Medical Equipment None Reported. Allergies No known drug allergies Medications Name Sig Start Date Stop Date Status Note LastModified by Organization Details LastModified Time furosemide 40 mg tablet TAKE 2 TABLETS BY MOUTH IN THE MORNING AND 1 IN THE EVENING AN ADDITIONA L DOSE MAY BE INSTRUCTE D IN THE EVENING WHEN DIRECTED BY THE CARDIOLOG IST active Not Available Not Available No t Available metolazone 2.5 mg tablet TAKE 1 TABLET BY MOUTH ONCE DAILY NEEDED FOR SWELLING WHEN DIRECTED BY PROVIDER TO DO SO. active Not Available Not Available No t Available atorvastati n 80 mg tablet TAKE 1 TABLET BY MOUTH ONCE DAILY active Not Available Not Available No t Available carvedilol 25 mg tablet TAKE 1 TABLET BY MOUTH TWICE DAILY active Not Available Not Available No t Available prednisone 10 mg tablet TAKE 1 TABLET BY MOUTH ONCE DAILY active Not Available Not Available No t Available cefuroxime axetil 250 mg tablet TAKE 1 TABLET BY MOUTH EVERY 12 HOURS FOR 7 DAYS active Not Available Not Available No t Available nicotine 14 mg/24 hr daily transdermal patch APPLY 1 PATCH TOPICALLY ONCE DAILY FOR NICOTINE CRAVINGS active Not Available Not Available No t Available cefpodoxime 200 mg tablet TAKE 1 TABLET BY MOUTH EVERY 12 HOURS FOR 7 DAYS FOR URINARY TRACT INFECTION . active Not Available Not Available No t Available prednisone 20 mg tablet active Not Available Not Available Not Available sulfamethox azole 800 mg-trimetho prim 160 mg tablet TAKE 1 TABLET BY MOUTH TWICE DAILY FOR 7 DAYS active Not Available Not Available No t Available spironolact one 25 mg tablet TAKE 1 TABLET BY MOUTH ONCE DAILY FOR 90 DAYS active Not Available Not Available No t Available ketorolac 0.5 % eye drops INSTILL 1 DROP INTO EACH EYE TWICE DAILY NEEDED active Not Available Not Available No t Available citalopram 20 mg tablet TAKE 1 TABLET BY MOUTH ONCE DAILY active Not Available Not Available No t Available Gentle Laxative (bisacodyl) 5 mg tablet,brunilda yed release TAKE 2 TABLETS BY MOUTH RIGHT BEFORE BEGINNING BOWEL PREP. SEE INSTRUCTI ONS PROVIDED BY OFFICE. active Not Available Not Available No t Available nicotine 21 mg/24 hr daily transdermal patch APPLY 1 PATCH TOPICALLY EVERY 24 HOURS active Not Available Not Available No t Available cephalexin 500 mg tablet Take 1 tablet every 6 hours by oral route for 5 days. 03/20 completed Not Available Not Available Not Available cefuroxime axetil 500 mg tablet active Not Available Not Available No t Available cefdinir 300 mg capsule TAKE 1 CAPSULE BY MOUTH TWICE DAILY FOR 7 DAYS active Not Available Not Available No t Available amoxicillin 875 mg-potassiu m clavulanate 125 mg tablet TAKE 1 TABLET BY MOUTH TWICE DAILY FOR 7 DAYS active Not Available Not Available No t Available neomycin 3.5 mg/g-polymy jocelynn B 10,000 unit/g-dexa meth 0.1 % eye oint APPLY OINTMENT INTO EACH EYE AT BEDTIME active Not Available Not Available No t Available BD Ultra-Fine Mini Pen Needle 31 gauge x 16 USE 1 PEN NEEDLE DIRECTED 4 TIMES DAILY DIRECTED active Not Available Not Available No t Available peg 3350-electr olytes 236 gram-22.74 gram-6.74 gram-5.86 gram solution MIX DIRECTED AND STARTING AT 6 PM THE NIGHT BEFORE YOUR PROCEDURE DRINK 8 OUNCE GLASSES BY MOUTH AT YOUR OWN PACE UNTIL YOU COMPLETE HALF OF THE GALLON. FINISH THE 2ND HALF OF THE GALLON 5 HOURS BEFORE YOUR PROCEDURE . active Not Available Not Available No t Available FreeStyle Lite Strips USE 1 STRIP TO CHECK GLUCOSE 4 TIMES DAILY active Not Available Not Available No t Available Lantus Solostar U-100 Insulin 100 unit/mL (3 mL) subcutaneou s pen INJECT 28 UNITS SUBCUTANE OUSLY AT BEDTIME active Not Available Not Available No t Available Xarelto 20 mg tablet TAKE 1 TABLET BY MOUTH IN THE EVENING active Not Available Not Available No t Available Combivent Respimat 20 mcg-100 mcg/actuati on solution for inhalation INHALE 1 PUFF BY MOUTH 4 TIMES DAILY NEEDED FOR WHEEZING OR SHORTNESS OF BREATH (SPACE EVENLY DURING WAKING HOURS) active Not Available Not Available No t Available Jardiance 10 mg tablet TAKE 1 TABLET BY MOUTH ONCE DAILY active Not Available Not Available No t Available Jardiance 25 mg tablet TAKE 1 TABLET BY MOUTH ONCE DAILY active Not Available Not Available No t Available Entresto 97 mg-103 mg tablet TAKE 1 TABLET BY MOUTH TWICE DAILY active Not Available Not Available No t Available Vitals Date Recorded Oxygen saturation Respiratory rate Heart rate Body temperature Systolic And Diastolic Provider Name and Address Organization Details Last Updated DateTime 5 97 % 18 /min 81 /min 97.6 [degF] 158/96 mm[Hg] Not Available [employer] [facility] [employer] 5 12:38:21 Date Recorded Oxygen saturation Respiratory rate Heart rate Body temperature Body weight Body height Systolic And Diastolic Provider Name and Address Organization Details Last Updated DateTime 5 97 % 18 /min 64 /min 98 [degF] 94484.5 6 g 149.86 cm 136/83 mm[Hg] Not Available [employer] 5 16:34:24 Social History None recorded. Functional Status None recorded. Mental Status None recorded. Family History Nothing Reported. Medical History No medical history recorded. Gynecological HistoryNo gynecological history recorded. Obstetrics History GPAL:G 0 P 0 0 0 0 Past Encounters Encounter ID Performer Location Encounter Start Date Encounter Closed Date Diagnosis/Indication Diagnosis SNOMED-CT Code Diagnosis ICD10 Code Diagnosis IMO Codes Diagnosis Note [id number] Thomas Alcala MD [facility] ED Medical [address] [address] 10/08/2024 12:38:16 10/10/2024 19:30:30 Acute urinary tract infection 077608403 N39.0 [id number] TAD LUCERO MD [facility] ED Medical [facility] [address] [place] [address] 03/08/2025 16:34:20 03/08/2025 21:01:16 Urinary symptoms 262279538 R39.9 39293 Health Concerns Section Related Observation LastModified by Organization Detai ls LastModified Time None Recorded Concern Status LastModified by Organization Details LastModified Time None Recorded Advance Directives Directive None Recorded Payers Insurance Date Sequence Insurance Name Policy Number Policy Negron Covered Member ID Negron Member ID Guarantor Name 03/08/2025 1 [facility] - DOS ON OR AFTER 2022 - DUAL ELIGIBLE - [employer] OPT[employer] AND ONE [employer] (MEDICARE REPLACEMENT/ADV ANTAGE - HMO) La Nena Castro [id number] La Nena Castro Notes Date Note Type Note Provider Name and Address Organization Details Recorded Time 10/08/2024 text/html ROS as noted in the HPI This was a supervised home visit with laborer landscape Ricky Quezada. HPI: mbr with complaints of pink tinge urine, frequency, denies any back pain, fever, abdominal pain. requesting [facility] visit for evaluation. ...................... ...................... ...................... ...................... ...................... ...................... ......... CRC Nurse Triage Notes (Jazz Borden): Reason For Request: Urinary symptoms Chief Complaints: Urinary Symptoms PMH: Congestive Heart Failure, COPD/Asthma PMH Reviewed at 10/08/2024 11:43 Allergies Reviewed at 10/08/2024 11:43 Comments: Reviewed HPI- Software Developer Manager Organization Information for Ricky Quezada Legal Name: [employer]. Address: [address] [place] [address], Automotive Product Specialist: Caleb ENGLISH No.: [id number] Software Developer Manager POC Test Results from Ricky Quezada Urine Dipstick (12:35:29) Urine leukocytes: 500+++ DAYAN Urine nitrites: + NIT Urine urobilinogen: 0.2 3.5 URO Urine protein: 100 ++ 1.0 PRO Urine pH: 7.5 pH Urine blood: +++ BLO Urine specific gravity: 1.010 SG Urine ketones: - KET Urine bilirubin: - MARLON Urine glucose: > 2000 ++++ GLU Attachments uploaded as part of this test result can be found under Documents section. ...................... ...................... ...................... ...................... ...................... ...................... ......... Software Developer Manager Note From Ricky Quezada: Encountered patient, conscious alert and ambulatory. Patient reports approximately 48 hours of an increase in urinary urgency and frequency, accompanied by pain while urinating. Patient denies any fevers, chills, or back pain. Patient additionally reports a history of UTI, her most recent being 07/2024. Urinalysis retrieved, values uploaded via [employer]. Skin warm, dry and of appropriate color for ethnicity. Head and neck, free of trauma and edema. -JVD. Breath sounds present, clear and equal bilaterally. Abdomen is soft, non-tender and non-distended. Extremities free of trauma edema. [facility] contacted: [facility] states they will order a urine culture and will treat for a suspected UTI based off patient s urinalysis results. [facility] to send prescription for treatment to a pharmacy of patient s choice. Patient was encouraged to follow up with primary care or consider 911 if she were to develop fevers, chest pain, shortness of breath or back pain. Patient verbalizes understanding and states she is comfortable remaining home today. [facility] Lab Orders: urinalysis, dipstick: Performed culture, urine: Performed ...................... ...................... ...................... ...................... ...................... ...................... ......... [facility] Consulted: Thomas Alcala ...................... ...................... ...................... ...................... ...................... ...................... ......... Disposition: Fulfilled Thomas Alcala MD [address] [place] [address],[address], [place], [address], [email or web address] 10/08/2024 13:21:35 03/08/2025 text/html ROS as noted in the [facility] CRC Nurse Triage Notes (Hilda Morales): Reason For Request: Possible uti, and blood in Urine. Patient Reports: Frequent and increased urination with flank pain; Painful urination with or without feverDenies: Unable to void greater than 5 hours Erection that will not go away after 2 hours Fall or trauma that results in urinary incontinence in the setting of pain Fall or injury that results in incontinence in the absence of pain Lower back pain either unilateral or bilateral, unable to void, painful urination -hematuria Painful urination Inability to fully empty bladder Chief Complaints: Urinary SymptomsPMH: Congestive Heart Failure, COPD/AsthmaPMH Reviewed at 03/08/2025:24Allergies Reviewed at 03/08/2025:24Comments: 70 y.o female complains of Urinary SymptomsPatients daughter making referralPatient symptoms have been for about a week.Patient has blood in her urine, and has pain when urinating endorses frequency and urgency but also on furosemide.denies any fever, endorses chills and flank pain. denies any nausea, vomiting, or loose stool.patient has frequent UTIs.Has kidney issues and is on Xarelto.requesting insted assessment. I provided information on the mobile health provider response time and advised the patient and/or caregiver to monitor reported signs and symptoms. I discussed the warning signs of when to seek emergency care. Software Developer Manager Organization Information for Ruth Gonzalez Legal Name: [employer]. A ddress: [address] [place] [id number], Medical Director: Caleb Dugan [facility] No.: [id number] Software Developer Manager POC Test Results from Ruth Gonzalez Urine Dipstick (16:30:55)Urine leukocytes: 70LEUUrine nitrites: +NITUrine urobilinogen: 0.2UROUrine protein: 30PROUrine pH: 7.0pHUrine blood: +++BLOUrine specific gravity: 1.010SGUrine ketones: -KETUrine bilirubin: -BILUrine glucose: 250GLU ...................... ...................... ...................... ...................... ...................... ...................... ......... Software Developer Manager Note From Ruth Gonzalez: Sent to a call for a pt complaining of UTI symptoms. SC8 arrives on scene, pt is alert and oriented, airway is patent. Pt allergies verified: NKDA; Pt states she has history of frequent UTI's (last treated approx 1 month ago), CKD (unsure what stage, possibly 4), and is on Xarelto. Pt's last renal appt was approx 1 month ago. Pt denies history of Kidney stones or kidney infections. Pt complains of dysuria and hematuria x 2 weeks. Pt states she called for visit today because she couldn't take pain any more. Pt denies da silva, dizziness, cp, sob, n/v/d, fever, or loc. BP:136/83, P:64, RR:18, SpO2:97% RA, T:98.0; Head: unremarkable; Lung sounds: clear bilaterally; Abdomen: soft, non-tender, no distention; Back: no CVA tenderness; Extremities: unremarkable; Skin: pink, warm, dry; Urine sample obtained; Urine dip results: uploaded to [employer]. [facility] consulted and orders Cephalexin 500mg PO and urine culture to be sent to [facility]. [facility] sends script to pt's pharmacy. 5 med rights verified; Cephalexin 500mg PO administered. Red flags discussed. Pt has no further questions. [facility] Lab Orders: urinalysis, dipstick: Performed culture, urine: Performed [facility] Medication Orders: cephalexin 500 mg capsule: Performed ...................... ...................... ...................... ...................... ...................... ...................... ......... [facility] Consulted: Tad Lucero ...................... ...................... ...................... ...................... ...................... ...................... ......... Disposition: Fulfilled TAD LUCERO MD [address] [place] [address],[address] [facility], [place], [address], [email or web address] 03/08/2025 17:48:20 OBGyn Episode No OBEpisode recorded.
--- OUTSIDE RECORDS SUMMARY | 2025-04-24 08:51 | XMS_ITS | Encounter Summary ---
Author Organization [facility] Address [address] [place] [address] Encounters * CPT with Medical [facility] at [employer] on 2025-03-08 { reasonForRequest : Possible uti, and blood in Urine. , patientReports&qu ot;: Frequent and increased urination with flank pain; Painful urination with or without fever", denies :[ Unable to void greater than 5 hours , Erection that will not go away after 2 hours , Fall or trauma that results in urinary incontinence in the setting of pain , Fall or injury that results in incontinence in the absence of pain ,"Lower back pain either unilateral or bilateral, unable to void, painful urination -hematuria", Painful urination , Inability to fully empty bladder ], chiefComplaints": Urinary Symptoms , pmh : Congestive Heart Failure, COPD/Asthma , allergies : No Known Drug Allergies , otherAllergies : ,& quot;painAssessment : , visitOutcome : , additionalComments : 70 y.o female complains of Urinary Symptoms\nPatients daughter making referral\nPatient symptoms have been for about a week. \nPatient has blood in her urine, and has pain when urinating endorses frequency and urgency but also on furosemide. \ndenies any fever, endorses chills and flank pain. denies any nausea, vomiting, or loose stool. \npatient has frequent UTIs.\nHas kidney issues and is on Xarelto.\nrequesting insted assessment. \n\nI provided information on the mobile health provider response time and advised the patient and/or caregiver to monitor reported signs and symptoms. I discussed the warning signs of when to seek emergency care. } Sent to a call for a pt [...] sample obtained; Urine dip results: uploaded to [employer]. [facility] consulted and orders Cephalexin 500mg PO and urine culture to be sent to [facility]. [facility] sends script to pt's pharmacy. 5 med rights verified; [id number] PO administered. Red flags discussed. Pt has no further questions. ORAL_MEDICATION, EKG, POC_BLOODWORK, GLUCOSE Written by [facility] on 2025-03-08
--- OUTSIDE RECORDS SUMMARY | 2025-04-24 08:51 | XMS_ITS | Patient Health Record ---
Author Organization [facility] Address [address] [place] [address] Care Team Providers Care Certified Health Education Specialist Name Role Phone Alfred Vergara Unavailable [phone] Reason For Referral No Information Plan Of Treatment No Information
--- OUTSIDE RECORDS SUMMARY | 2025-04-24 08:51 | XMS_ITS | Encounter Summary ---
Author Organization [facility] Address [address] [place] [address] Phone Care Team Providers Care Batch Operator Name Role Phone Carmina Varela MD Primary Care Provider + Encounter Details Date Type Department Care Team (Late st Contact Info) Description 11/30/2024 Documentation Only [facility], [address] [place] [address] Susan RiveraLEE, [place] [address] [place] [address] Social History Tobacco Use Types Packs/Day [...] filedocumented in this encounter Care Teams Batch Operator Relationship Specialty Start Date End Date Carmina Varela MD [address] [place] [address] PCP - General 12/03/22 documented as of this encounter
--- OUTSIDE RECORDS SUMMARY | 2025-04-24 08:51 | XMS_ITS | Clinical Summary ---
Author Organization [address] Address [address] [place] [phone] Phone Care Team Providers Care Biology Tutor Name Role Phone Carmina Ayala MD Primary Care Prov ider Allergies No known active allergies Medications citalopram (CeleXA) 20 mg tablet Take 1 tablet (20 mg total) by mouth 1 (one) time each day. 01/12/20 24 Active insulin aspart (NovoLOG Flexpen U-100 Insulin) 100 unit/mL (3 mL) injection pen Use three times a day before meals: <100:0 units, 101-150: 4 units, 151-200: 6 untis, 201-250: 8 units, 251-300: 10 units, >300: 12 units 01/01/20 24 Active blood-glucose meter kit To check sugars 3 times a day 03/13/20 23 Active UNABLE TO FIND Blood Glucose Calibration (FreeStyle Control Solution) Liquid, USE DIRECTED WITH GLUCOMETER 02/11/20 22 Active ipratropium-al buteroL (Combivent Respimat) 20-100 mcg/actuation inhaler INHALE 1 PUFF BY MOUTH 4 TIMES DAILY 07/09/19 22 Active furosemide (LASIX) 20 mg tablet Take 2 tablets (40 mg total) by mouth 2 (two) times a day. Active carvediloL (COREG) 25 mg tablet Take 25 mg by mouth 2 times daily (with meals). Active rivaroxaban (Xarelto) 20 mg tablet Take 1 tablet (20 mg total) by mouth 1 (one) time each day. 06/28/19 20 Active albuterol sulfate (ProAir RespiClick) 90 mcg/actuation aerosol powdr breath activated Inhale 2 Puffs into the lungs 2 times daily as needed. Active nystatin (MYCOSTATIN) ointment Apply twice daily to affected area 07/07/19 19 Active nystatin, bulk, 10 billion unit powder Apply to skin folds twice daily, dispense one large bottle 07/07/19 19 Active bacitracin (bacitracin zinc) 500 unit/gram ointment Apply to both feet daily for dry skin 09/18/19 17 Active UNABLE TO FIND CPAP Historical (HISTORICAL CPAP), Inhale into the lungs at bedtime. Active empagliflozin (Jardiance) 25 mg tablet Take 1 tablet (25 mg total) by mouth 1 (one) time each day. 90 tablet 3 05/12/19 25 026 Active Lantus Solostar U-100 Insulin 100 unit/mL (3 mL) injection pen Inject 28 Units under the skin at bedtime. 30 mL 2 06/23/19 25 Active OneTouch Ultra2 Meter monitoring kit 1 each 3 (three) times a day. 1 each 08/30/19 25 026 Active OneTouch Ultra Test test strip Use as instructed to check fsbs three times daily 300 each 3 08/30/19 25 026 Active bisacodyL (DULCOLAX) 5 mg EC tablet Take 2 tablets by mouth right before beginning bowel prep. See instructions provided by the office 2 tablet 10/04/19 25 Active atorvastatin (LIPITOR) 80 mg tablet Take 1 tablet by mouth once daily 90 tablet 11/15/19 25 Active lancets lancets Use as instructed 100 each 1 12/01/19 25 Active fluticasone propionate (FLONASE) 50 mcg/actuation nasal spray Administer 2 sprays into each nostril 1 (one) time each day. Shake gently. Before first use, prime pump. After use, clean tip and replace cap. 16 g 5 01/06/20 25 026 Active cefpodoxime (VANTIN) 200 mg tablet Take 1 tablet (200 mg total) by mouth 2 (two) times a day. 025 Discontinued cefpodoxime (VANTIN) 200 mg tablet Take 1 tablet (200 mg total) by mouth 2 (two) times a day for 5 days. 10 each 04/12/20 25 025 Active Problems Problem Noted Date Diagnosed Date Acute on chronic systolic an d diastolic heart failure, NYHA class 3 04/12/2025 Anxiety 02/15/2024 Carpal tunnel syndrome 02/15/2024 Overview (02/15/2024): Bilateral release COPD (chronic obstructive pulmonary disease) Hyperlipidemia 02/15/2024 Old VT (myocardial infarction) 02/15/2024 Overview (02/15/2024): Stent 06/2011 [...] Pulmonary nodule 01/02/2016 Overview (02/15/2024): 12/21/11 in [facility] a 4 mm nodule in the right middle lobe anteriorly along the minor fissure Asthma 01/02/2014 Chronic kidney disease, stage 3b 01/02/2014 Diabetes mellitus type 2 with neurological manif estations 01/02/2014 Assessment & Plan (11/30/2024 10:10 AM EDT): Patient on Nancy Jordan for correction. Last A1c was 7.5 in March last year she follows with an outside provider for diabetes. Will check a new A1c today as diabetes being a risk factor for complications. Hypertension 01/02/2014 Assessment & Plan (05/12/2024 8:29 PM EST): Blood pressure is well-controlled, today 110/68. Will continue same regimen. Orders: Blood pressure monitor Vitamin D deficiency 01/02/2014 CHF NYHA class II 11/22/2013 Encounters Date Type Department Care Team Description 04/17/2025 Results Follow-Up Adult [address] [phone] Kadi Pichardo MD 04/12/2025 10:00 AM EST Office Visit Adult Medicine [address] [phone] Manjit Burgos PA Hematuria, unspecified type (Primary Dx); Gross hematuria; Epistaxis; Acute on chronic systolic and diastolic heart failure, NYHA class 3 (CMS/HCC V24, CMS/HCC V28); Body mass index (BMI) 40.0-44.9, adult (CMS/HCC V24, CMS/HCC V28); Chronic kidney disease, stage 3b (CMS/HCC V24, CMS/HCC V28) 04/11/2025 Telephone Adult Medicine [address] [phone] Carmina Miller MD 02/16/2025 Telephone Adult Medicine [address] [phone] Carmina Miller MD 02/02/2025 Telephone Adult Medicine [address] [phone] Carmina Miller MD 01/25/2025 Telephone Adult Medicine [address] [phone] Carmina Miller MD from Last 3 Months Immunizations Immunization Administration Dates Next Due Influenza Quadravalent, MDCK [...] HISTORICAL APPENDECTOMY CARPAL TUNNEL RELEASE Bilateral PROCEDURE: NM NEUROPLASTY &/TRANSPOS MEDIAN NRV CARPAL TUNNE OTHER SURGICAL HISTORY 10/01/14 PROCEDURE: NM BRNCHSC INCL FLUOR GDNCE DX W/CELL WASHG SPX; COMMENT: ?aspiration OTHER SURGICAL HISTORY 12/05/2016 PROCEDURE: NM OPEN TX NASAL SEPTAL FRACTURE W/WO STABILIZATION CORONARY ARTERY BYPASS GRAFT 12/10/2017 PROCEDURE: HISTORICAL CABG Medical History Medical History Date Comments Diabetes ([facility] V24, [facility] V28) DX:Diabetes ([facility]) Anxiety DX:Anxiety Dyslipidemia DX:Dyslipidemia TAQUERIA on CPAP DX:TAQUERIA on CPAP; COMMENT: dr bowling COPD (chronic obstructive pu lmonary disease) ([facility] V24, [facility] V28) DX:COPD (chronic o bstructive pulmonary disease) ([facility]) Smoking DX:Smoking; COMM ENT: 25 pack yr CAD (coronary artery disease) DX :CAD (coronary artery disease); COMMENT: Dr. Martino OA (osteoarthritis) of knee DX:O A (osteoarthritis) of knee Hypertension 01/02/2014 DX:Hypertension Diabetes type 2, uncontrolled DX :Diabetes type 2, uncontrolled Old VT (myocardial infarction) D X:Old VT (myocardial infarction); COMMENT: Dr. Martino Diabetes mellitus with renal manifestation ([facility] V24, [facility] V28) 01/02/2014 DX:Diabetes mellitus with re nal manifestation (HCC) Vitamin D deficiency 01/02/2014 DX:Vitamin D deficiency Hyperlipidemia DX:Hyperlipidemi a Asthma 01/02/2014 DX:Asthma CKD (chronic kidney disease) , stage III ([facility] V24, [facility] V28) 01/02/2014 DX:CKD (chronic kidney disease), stage III ([facility]) Diabetes mellitus type 2 wit h neurological manifestations ([facility] V24, [facility] V28) 01/02/2014 DX:Diabetes mellitus type 2 with [...] Comments Diabetes Brother Other: Fibromyalgia Daughter 1 lymphede ma, a fib No Known Problems Daughter [...] you may not have stable housing? No 04/12/2025 Food Access & Nutrition Answer Date Rec orded Do you have access to a vari ety of food including fruits and vegetables? Yes 04/12/2025 Access to Healthcare Answer Date Record ed Within the last 3 months, ho w many times did you visit the emergency department for your medical care? 1 03/09/2024 Health Literacy Answer Date Recorded How often do you need to hav e someone help you when you read instructions, pamphlets, or other written material from your doctor or pharmacy? Never 04/12/2025 Caregiver: How often do you need to have someone help you when you read instructions, pamphlets, or other written material from your doctor or pharmacy? Not on file 04/12/2025 Financial Risk Answer Date Recorded How hard is it for you to pa y for the very basics like food, housing, medical care, and air conditioning / heating? Not very hard 04/12/2025 Transportation Answer Date Recorded Has the lack of transportati on kept you from meetings, work, or from getting things needed for daily living? No Has the lack of transportati on kept you from medical appointments or from getting medications? No 04/12/2025 Social Isolation Answer Date Recorded How often do you feel lonely or isolated from th ose around you? Never 04/12/2025 Food Risk Answer Date Recorded Within the past 12 months we worried whether our food would run out before we got money to buy more. Never true 04/12/2025 Within the past 12 months th e food we bought just didn't last and we didn't have money to get more. Never true 04/12/2025 Dependent Care Answer Date Recorded Do you need help finding or paying for care for your loved ones. For example, child care center administrator or elderly care for an older adult? No 04/12/2025 Education Answer Date Recorded Do you think completing more education or training, like finishing a GED, going to college, or learning a trade, would be helpful for you? N/A 04/12/2025 Employment and Income Answer Date Recor ded During the last four weeks, have you been actively looking for work? No 04/12/2025 Living Situation Answer Date Recorded What is your living situation? Unrecognized valu e 04/12/2025 Comments No Sex and Gender Information Value [...] Sign Reading Time Taken Comments Blood Pressure 91/50 04/12/2025 9:21 AM EST Pulse 66 04/12/2025 9:21 AM EST Temperature 36.6 C (97.9 F) 04/12/2025 9:21 AM EST Respiratory Rate 15 04/12/2025 9:21 AM EST Oxygen Saturation 97% 04/12/2025 9:21 AM EST Inhaled Oxygen Concentration - - Weight 88.9 kg (196 lb) 04/12/2025 9:21 AM EST Height 149.9 cm (4' 11 ) 04/12/2025 9:21 AM EST Body Mass Index 39.59 04/12/2025 9:21 AM EST Plan of Treatment Upcoming Encounters Date Type Department Care Team (Late st Contact Info) Description 08/04/2025 2:00 PM EDT Appointment Radiology Department - [address] [phone] Health Maintenance Due Date Last Done Comments Hepatitis A Vaccines (1 of 2 - Risk 2-dose series) 1973 RSV Immunization Adult Patients (1 - Risk 50-74 years 1-dose series) 01/21/2004 Hepatitis B Vaccines (1 of 3 - Risk 3-dose series) 2014 Colorectal Cancer Screening: Colonoscopy 07/27/2021 07/28/2011 Medicare Annual Wellness Visit 04/05/2022 Diabetes: Annual Retina Eye Exam 08/10/2024 08/11/2023 Diabetes: Annual Foot Exam 11/16/2024 11/17/2023, COVID-19 Vaccine ( season) 2024 02/27/2023, 03/15/2022, 03/15/2022, Additional history exists Influenza Vaccine (#1) 2024 , 01/02/2023, 03/15/2022, Additional history exists DTaP,Tdap,and Td Vaccines (5 - Td or Tdap) 12/27/2024 12/27/2014, 10/20/2010, 02/18/2007, Additional history exists Diabetes: Blood Sugar Control Test (HGBA1C) 06/02/2025 11/30/2024, 04/21/2024, 12/09/2023, Additional history exists Diabetes: Annual Urine Albumin-Creatinine Ratio (uACR) 11/30/2025 11/30/2024, 12/26/2022 Diabetes: Annual GFR (Glomerular Filtration Rate) 11/30/2025 11/30/2024, 12/09/2023, 12/09/2023, Additional history exists Hypertension/CHF/CAD Annual BMP Blood Test 11/30/2025 11/30/2024, 12/09/2023, 12/09/2023, Additional history exists Falls Risk Assessment 04/12/2026 04/12/2025, 024 Social Influencers of Health Screening 04/12/2026 04/12/2025, 03/09/2024 Breast Cancer Screening 07/29/2026 07/30/19, 04/10/2022, 11/23/2017, Additional history exists Cholesterol Screening (Lipid Panel) 12/27/2027 12/26/2022 Osteoporosis Screening (Bone Density Screening) 02/18/2034 02/19/2024, 02/19/2024 Hepatitis C Screening Completed 04/17/2016 Pneumococcal Vaccine: 50+ Years Completed 10/13/2022, 09/30/2021, 01/07/2017, Additional history exists Zoster Vaccines Completed 01/02/2023, 09/26, 09/26/2015, Additional history exists Depression Screening Completed 11/30/2024, 07/02/19 24 HIB Vaccines Aged Out No longer eligi [...] Diagnosis Comments URINALYSIS WITH REFLEX MICROSCOPIC Routine 04/12/2025 10:06 AM EST Hematuria, unspecified type Gross hematuria URINALYSIS WITH REFLEX MICROSCOPIC Routine 04/12/2025 10:06 AM EST Hematuria, unspecified type Gross hematuria CULTURE URINE Routine 04/12/2025 10:06 AM EST Hematuria, unspecified type Gross hematuria POC URINE NON-AUTO W/O MICRO Routine 04/12/2025 9:48 AM EST Hematuria, unspecified type Gross hematuria MICROALBUMIN CREATININE URINE RATIO Routine 11/30/2024 10:21 AM EDT Chronic kidney disease (CKD) stage G3b/A1, moderately decreased glomerular filtration rate (GFR) between 30-44 mL/min/1.73 square meter and albuminuria creatinine ratio les* (CMS/HCC V24, CMS/HCC V28) BASIC METABOLIC PANEL Routine 11/30/2024 10:21 AM EDT Chronic kidney disease (CKD) stage G3b/A1, moderately decreased glomerular filtration rate (GFR) between 30-44 mL/min/1.73 square meter and albuminuria creatinine ratio les* (CMS/HCC V24, CMS/HCC V28) HEMOGLOBIN A1C Routine 11/30/2024 10:21 AM EDT Urinary tract infection with hematuria, site unspecified MG MAMMO DIGITAL SCREENING W JIMMY BILAT Routine 07/29/2024 2:03 PM EDT Encounter for screening mammogram for breast cancer DXA BONE DENSITY STUDY 1+ SITS AXIAL SKEL Routine 02/19/2024 10:04 AM EDT Encounter for screening for osteoporosis FALLS RISK ASSESSMENT Routine 02/04/2024 DIABETES EYE EXAM Routine 08/11/2023 DEPRESSION SCREENING Routine 07/02/2023 LIPID PANEL Routine 12/26/2022 HEPATITIS C SCREENING Routine 04/17/2016 COLONOSCOPY Routine 07/28/2011 DIABETES FOOT EXAM Routine 11/17/2003 from Last 3 Months or Most Recently Relevant to Health Maintenance Results * (ABNORMAL) Urinalysis with reflex microscopic (04/12/2025 10:06 AM EST) Specific [place] Urine 1.007 1.003 - 1.030 LAB URINALYSIS - AUTOMATED METHOD 04/12/2025 1:41 PM [facility] pH, Urine 7.0 5.0 - 8.0 pH LAB URINALYSIS - AUTOMATED METHOD 04/12/2025 1:41 PM [facility] Leukocytes, Urine Large(A) Negative LAB URINALYSIS - AUTOMATED METHOD 04/12/2025 1:41 PM [facility] Nitrite, Urine Positive(A) Negative LAB URINALYSIS - AUTOMATED METHOD 04/12/2025 1:41 PM [facility] Protein, Urine Trace <=Trace mg/dL LAB URINALYSIS - AUTOMATED METHOD 04/12/2025 1:41 PM [facility] Glucose, Urine 500(A) Negative mg/dL LAB URINALYSIS - AUTOMATED METHOD 04/12/2025 1:41 PM [facility] Ketones, Urine Negative Negative mg/dL LAB URINALYSIS - AUTOMATED METHOD 04/12/2025 1:41 PM [facility] Urobilinogen , Urine 0.2 0.2 - 1.0 mg/dL LAB URINALYSIS - AUTOMATED METHOD 04/12/2025 1:41 PM [facility] Bilirubin, Urine Negative Negative LAB URINALYSIS - AUTOMATED METHOD 04/12/2025 1:41 PM [facility] Blood, Urine Large(A) Negative LAB URINALYSIS - AUTOMATED METHOD 04/12/2025 1:41 PM [facility] RBC, Urine 10(H) 0 - 4 /HPF 04/12/2025 1:41 PM [facility] WBC, Urine 40(H) 0 - 4 /HPF 04/12/2025 1:41 PM [facility] Squamous Epithelial, Urine >100(H) 0 - 60 /LPF 04/12/2025 1:41 PM [facility] Crystals, Urine Moderate Amorphous Urate crystals. /LPF 04/12/2025 1:41 PM [facility] Bacteria, Urine Few(A) Negative /HPF 04/12/2025 1:41 PM EST [facility] Urine Urine specimen obtained by clean catch procedure / Unknown Non-blood Collection / Unknown 04/12/2025 10:06 AM EST 04/12/2025 10:06 AM EST us Manjit MENJIVAR LAB URINE ORDERABLES Fin al Result [facility] [address] [place] [address], * (ABNORMAL) Culture urine (04/12/2025 10:06 AM EST) Culture, Urine >=100,000 CFU/mL Enterobacter cloacae complex(A) TINA 04/15/2025 9:01 AM EST [facility] Comment: The organism value for this result has been updated. These results have been appended to the previously preliminary verified report. Urine Urine specimen from urethra / Unknown Non-blood Collection / Unknown 04/12/2025 10:06 AM EST 04/12/2025 10:06 AM EST Narrative [facility] - 04/15/2025 9:01 AM EST Additional colony types present in insignificant amounts. Organism Antibiotic Method Susceptibility Enterobacter cloacae complex Amoxicillin/Clavulanate TINA >=32 ug/ml: Resistant Enterobacter cloacae complex Cefoxitin TINA >=64 ug/ml: Resistant Enterobacter cloacae complex Ceftazidime TINA 16 ug/ml: Resistant Enterobacter cloacae complex Cefepime TINA [...] complex Trimethoprim/Sulfamethoxazo le TINA <=20 ug/ml: Susceptible Manjit MENJIVAR LAB MICROBIOLOGY - GENER AL ORDERABLES Final Result [facility] [address] [place] [address], [place] [phone] * (ABNORMAL) POC Urine Non-Auto W/O Micro (04/12/2025 9:48 AM EST) Leukocytes UA POC Positive(A) Negative Comment:moderate Nitrite UA POC Negative Negative Urobilinogen UA POC Negative Negative Comment:.2 Protein UA POC Negative Negative PH UA POC 7.0 5.0 - 9.0 Blood UA POC Positive(A) Negative, Trace Comment:large Specific [place] UA POC 1.001 1.001 - 1.035 Ketones UA POC Negative Negative Bilirubin UA POC Negative Negative Glucose UA POC Positive(A) Normal, Trace Comment:500 Urine Urine specimen obtained by clean catch procedure / Unknown 04/12/2025 9:48 AM EST Manjit MENJIVAR POINT OF CARE TE ST ENTER/EDIT ORDERABLES Edited Result - Final * (ABNORMAL) Microalbumin creatinine urine ratio (11/30/2024 10:21 AM EDT) Creatinine, Urine 21.0 mg/dL LAB CHEMISTRY METHOD 11/30/2024 1:14 PM EDT [facility] Microalb, Ur 706.0(H) 0.0 - 29.0 mg/L LAB CHEMISTRY METHOD 11/30/2024 1:14 PM EDT [facility] Microalb/Crea t Ratio 3,362(H) <30 mg/g creat LAB CHEMISTRY METHOD 11/30/2024 1:14 PM EDT [facility] Urine Urine specimen obtained by clean catch procedure / Unknown Non-blood Collection / Unknown 11/30/2024 10:21 AM EDT 11/30/2024 10:21 AM EDT us Marino Hopson MD LAB URINE ORDERABLES Final Result Performing Organization Address City/[facility]/ZIP Co de Phone Number [facility] [address] [place] [address], [place] [phone] * (ABNORMAL) Hemoglobin A1c (11/30/2024 10:21 AM EDT) Hemoglobin A1C 8.7(H) <6.5 % LAB CHEMISTRY METHOD 11/30/2024 2:19 PM EDT [facility] Mean Bld Glu Estim. 203 mg/dL LAB CHEMISTRY METHOD 11/30/2024 2:19 PM EDT [facility] Blood Venous blood specimen / Unknown Venipuncture / Unknown 11/30/2024 10:21 AM EDT 11/30/2024 10:21 AM EDT Carmina Ayala MD LAB BLOOD ORDERABL ES Final Result Performing Organization Address City/[facility]/ZIP Co de Phone Number [facility] [address] [place] [address], [place] [phone] * (ABNORMAL) Basic metabolic panel (11/30/2024 10:21 AM EDT) Sodium 140 133 - 145 mmol/L LAB CHEMISTRY METHOD 11/30/2024 12:52 PM EDT [facility] Potassium 3.7 3.5 - 5.5 mmol/L LAB CHEMISTRY METHOD 11/30/2024 12:52 PM EDT [facility] Comment:Hemolysis present Chloride 105 96 - 110 mmol/L LAB CHEMISTRY METHOD 11/30/2024 12:52 PM EDT [facility] CO2 29 21 - 32 mmol/L LAB CHEMISTRY METHOD 11/30/2024 12:52 PM EDT [facility] Anion Gap 6 3 - 11 LAB CHEMISTRY METHOD 11/30/2024 12:52 PM EDT [facility] Glucose 106(H) 70 - 100 mg/dL LAB CHEMISTRY METHOD 11/30/2024 12:52 PM EDT [facility] BUN 23 5 - 25 mg/dL LAB CHEMISTRY METHOD 11/30/2024 12:52 PM EDT [facility] Creatinine 1.37(H) 0.50 - 1.10 mg/dL LAB CHEMISTRY METHOD 11/30/2024 12:52 PM EDT [facility] eGFR 42(L) >=60 mL/min/1. 73m2 LAB CHEMISTRY METHOD 11/30/2024 12:52 PM EDT [facility] Comment:Calculation based on the Chronic Kidney Disease Epidemiology Collaboration (CKD-EPI) equation refit without adjustment for race. BUN/Creatinine Ratio 16.8 LAB CHEMISTRY METHOD 11/30/2024 12:52 PM EDT [facility] Calcium 9.0 8.5 - 10.5 mg/dL LAB CHEMISTRY METHOD 11/30/2024 12:52 PM EDT [facility] Blood Venous blood specimen / Unknown Venipuncture / Unknown 11/30/2024 10:21 AM EDT 11/30/2024 10:21 AM EDT Marino Hopson MD LAB BLOOD ORDERABLES Final Result [facility] [address] [place] [address], * MG Mammo Digital Screening w Jimmy bilat (07/29/2024 2:03 PM EDT) Anatomical Region Laterality Modality Breast Bilateral Mammography 08/01/2024 8:07 AM EDT Impressions 08/01/2024 8:08 AM EDT No mammographic evidence of malignancy. BREAST DENSITY: B - There are scattered areas of fibroglandular density. BI-RADS CATEGORY: 1 - NEGATIVE RECOMMENDATION: Screening bilateral mammogram is recommended in 1 year. MAMMO LOCATION: [facility], [address] [place] [address], [id number], . -------- FINAL REPORT -------- Dictated By: Paula Gonzalez Dictated Date: 08/01/2024 08:07 ET Assigned Physician: Paula Gonzalez Reviewed and Electronically Signed By: Paula Gonzalez Signed Date: 08/01/2024 08:08 ET Workstation ID: [id number] Transcribed By: Self Edit Transcribed Date: 08/01/2024 08:07 ET Narrative 08/01/2024 8:08 AM EDT EXAM: Screening Mammogram CLINICAL: 69 years old, Female, routine annual exam. COMPARISON: 04/10/22 TECHNIQUE: Bilateral MLO and CC views were obtained digitally with 3-D mammogram (digital breast tomosynthesis). Computer-aided detection was utilized in evaluation of this exam (CAD). Battery pack superimposes the left axillary region limiting [...] is recommended in 1 year. MAMMO LOCATION: [facility], [address] [place] [address], [id number], . -------- FINAL REPORT -------- Dictated By: Paula Gonzalez Dictated Date: 08/01/2024 08:07 ET Assigned Physician: Paula Gonzalez Reviewed and Electronically Signed By: Paula Gonzalez Signed Date: 08/01/2024 08:08 ET Workstation ID: [id number] Transcribed By: Self Edit Transcribed Date: 08/01/2024 08:07 ET us Carmina Ayala MD IMG BI PROCEDURES Final Result * DXA BONE DENSITY STUDY 1+ [...] (World Health Organization Fracture Risk Assessment) [facility] Department of Internal Medicine recommends using [...] alternative screening schedule based on [address] [facility] May 15, 2011 for patients with [...] years. (World HealthOrganization Fracture Risk Assessment) [facility] Department of Internal Medicine recommendsusing [...] and higher), BMD testingevery 15 years Result [facility] Carmina Ayala MD IMG DXA PROCEDURES Final Result * Falls Risk Assessment (02/04/2024) [facility] Falls Risk Assessment abstracted Result [facility] HEALTH MAINTENANCE Final Result * Diabetes Eye Exam (08/11/2023) [facility] Diabetes: Annual Retina Eye Exam abstracted Result [facility] HEALTH MAINTENANCE Final Result * Depression Screening (07/02/2023) [facility] Depression Screening abstracted Result [facility] HEALTH MAINTENANCE Final Result * Lipid panel (12/26/2022) [facility] LDL/HDL Ratio 3 0 - 4 Triglycerides 135 0 - 150 mg/dL Cholesterol 153 0 - 200 mg/dL HDL 62 >=40 mg/dL LDL Cholesterol 64 0 - 100 mg/dL Blood Venous blood specimen / Unknown Result [facility] BLOOD ORDERABLES Jennifer l Result * Hepatitis C Screening (04/17/2016) [facility] Hepatitis C Screening abstracted Result [facility] HEALTH MAINTENANCE Final Result * Colonoscopy (07/28/2011) [facility] Colonoscopy abstracted, no interpretation Anatomical Region Laterality Modality Other Result [facility] HEALTH MAINTENANCE Final Result * Diabetes Foot Exam (11/17/2003) Diabetes: Annual Foot Exam abstracted us Historical Provider HEALTH MAINTENANCE Final Result from Last 3 Months or Most Recently Relevant to Health Maintenance Insurance [facility] MEDICARE Member Subscriber Plan / Payer (Ef fective 2019-Present) Name:Gloria La Nena Relation to Subscriber:Self Name:La Nena Castro Payer ID:[id number] Group ID:[id number] Type:Not on file Address: [place] [address] [place] [phone] Care Teams Biology Tutor Relationship Specialty Start Date End Date Carmina Ayala MD [address] [place] [phone] PCP - General Internal Medicine 03/09/24
--- OUTSIDE RECORDS SUMMARY | 2025-04-24 08:51 | XMS_ITS | Encounter Summary ---
Author Organization [facility] [place] [address] Care Team Providers Care Newspaper Carrier Name Role Phone Carmina Ayala MD Primary Care Prov ider Encounter Details Date Type Department Care Team (Late st Contact Info) Description 04/17/2025 Results Follow-Up Adult Medicine [facility] [address] [place] [address] Kadi Pichardo MD [address], [place] Social History Tobacco Use Types Packs/Day Years [...] care for your loved ones. For example, childhood development teacher or elderly care for an older adult? [...] Upcoming Encounters Date Type Department Care Team ([facility] Contact Info) Description 08/04/2025 2:00 PM EDT Appointment Radiology Department [address] [phone] documented as of this encounter Visit Diagnoses Not on filedocumented in this encounter Additional Health Concerns Assessment Noted Time PHQ-9 Depression Total Score: 0 12/01/19 9:31 AM EDT A fall risk assessment has been complete d for the patient 04/12/2025 9:27 AM EST documented as of this encounter Care Teams Newspaper Carrier Relationship Specialty Start Date End Date Carmina Ayala MD [address] [place] [address] PCP - General Internal Medicine 03/09/24 documented as of this encounter
--- OUTSIDE RECORDS SUMMARY | 2025-04-24 08:51 | XMS_ITS | Continuity of Care Document ---
Author Organization [facility], [facility] Address [address] [place] [address] Care Team Providers Care Addiction Treatment Counselor Name Role Phone HIM CCA OTHER Assessment Encounter Date Assessment Date Assessment LastModified by Organization Details LastModified Time 03/08/2025 03/08/2025 Ms. Castro is a 70 [...] Assessment and Plan as documented by the Ship Engineer. We discussed the diagnostic uncertainty of home [...] Modified Time Details Appointments None recorded. Lab urinalysis, dipstick 2024 [facility], [address] [place] [address], [id number] 17:48:54 culture, urine 2024 [place] [facility] (Centralized Electronic Ordering - All Locations), Patient Can Go To The Location Of Their Choice, [id number] 18:05:46 Referral None recorded. Procedures None recorded. Surgeries None recorded. Imaging None recorded. Medication Orders cephalexin 500 mg capsule 2024 nick i7 [facility] [address] [place] [address], [id number], 16:41:17 cephalexin 500 mg tablet 2024 025 [facility] [address] [place] [address], [id number], 05:01:50 Patient TargetsNo targets recorded. Patient InstructionsNo instructions recorded. Reason for Referral None Reported. Results Created Date Observation Date Name Description Value Unit Range Abnormal Flag Note LastModifiedBy Organization Detail LastModifiedTime 03/08/20 25 03/10/2025 URINE CULTU RE, ROUTI NE urine culture, routine Final report Not Available [facility] ([facility]) [address] [facility], [place], [address], 03/10/2025 18:05:53 03/08/2003/10/2025 URINE CULTU RE, ROUTI NE result 1 COMMEN T Mixed uroge nital bev Great er than 100,0 00 colon y formi ng units per mL PREVI OUSLY REPOR KOTA ENTER OBACT ER CLOAC AE COMPL EX AND PROTE US - 100K CFU/M L ARE BOTH PART OF A MIXED UROGE NITAL BEV . Not Available [facility] ([facility]) [address] [facility], [place], [address], 03/10/2025 18:05:53 03/08/2003/10/2025 URINE CULTU RE, LASHELL NE result 2 Not applic able Not Available [facility] ([facility]) [address] [facility], [place], [address], 03/10/2025 18:05:53 Result Notes None recorded. Medical [...] Ultra-Fine Mini Pen Needle 31 gauge x 3/16 USE 1 PEN NEEDLE DIRECTED 4 TIMES [...] % 18 /min 64 /min 98 [degF] 47711.5 6 g 149.86 cm 136/83 mm[Hg] Not Available [facility] - production 5 16:34:24 Social History None recorded. Functional Status None recorded. Mental Status None recorded. Family History Nothing Reported. Medical History No medical history recorded. Gynecological HistoryNo gynecological history recorded. Obstetrics History GPAL:G 0 P 0 0 0 0 Past Encounters Encounter ID Performer Location Encounter Start Date Encounter Closed Date Diagnosis/Indication Diagnosis SNOMED-CT Code Diagnosis ICD10 Code Diagnosis IMO Codes Diagnosis Note [id number] TIKA LUCERO MD [facility] [address] [place] [phone] 03/08/2025 16:34:20 03/08/2025 21:01:16 Urinary symptoms 070789988 R39.9 [id number] Health Concerns Section Related Observation LastModified by Organization Detai ls LastModified Time None Recorded Concern Status LastModified by Organization Details LastModified Time None Recorded Payers Encounter Date Sequence Insurance Name Policy Number Policy Negron Covered Member ID Negron Member ID Guarantor Name 03/08/2025 1 [facility] - DOS ON OR AFTER 2022 - DUAL ELIGIBLE - LONG TERM OPTIONS AND ONE CARE (MEDICARE REPLACEMENT/ADV ANTAGE - HMO) La Nena Castro [id number] La Nena Castro Notes Date Note Type Note Provider Name and Address Organization Details Recorded Time 03/08/2025 text/html ROS as noted in the [facility] Nurse Triage Notes (Hilda Morales): [...] SymptomsPMH: Congestive Heart Failure, COPD/AsthmaPMH Reviewed at 03/08/2025 - :24Allergies Reviewed at 03/08/2025:24Comments: 70 y.o female complains [...] signs of when to seek emergency care. Ship Engineer Organization Information for Ruth Gonzalez Legal Name: [employer]. A ddress: [address] [place] [address], USMedical Director: Caleb Dugan [facility] No.: [id number] Ship Engineer POC Test Results from Ruth Gonzalez Urine Dipstick (16:30:55)Urine leukocytes: 70LEUUrine nitrites: +NITUrine urobilinogen: 0.2UROUrine protein: 30PROUrine pH: 7.0pHUrine blood: +++BLOUrine specific gravity: 1.010SGUrine ketones: -KETUrine bilirubin: -BILUrine glucose: 250GLU ...................... ...................... ...................... ...................... ...................... ...................... ......... Ship Engineer Note From Ruth Gonzalez: Sent to a [...] sample obtained; Urine dip results: uploaded to [employer]. [facility] consulted and orders Cephalexin 500mg PO and urine culture to be sent to [facility]. [facility] sends script to pt's pharmacy. 5 med rights verified; Cephalexin 500mg PO administered. Red flags discussed. Pt has no further questions. [facility] Lab Orders: urinalysis, dipstick: Performed culture, urine: Performed [facility] Medication Orders: cephalexin 500 mg capsule: Performed ...................... ...................... ...................... ...................... ...................... ...................... ......... [facility] Consulted: Tika Lucero ...................... ...................... ...................... ...................... ...................... ...................... ......... Disposition: Fulfilled TIKA LUCERO MD [address] [facility],[address], [place], [address], [employer] 03/08/2025 17:48:20 OBGyn Episode No OBEpisode recorded.
--- OUTSIDE RECORDS SUMMARY | 2025-04-24 08:51 | XMS_ITS | Continuity of Care Document ---
Author Name [facility] Address [address] [place] [id number] Organization Unknown Address [address] [place] [address] Medications No known medications Problems No known problems
--- OUTSIDE RECORDS SUMMARY | 2025-04-24 08:51 | XMS_ITS | Clinical Summary ---
Author Organization [facility], Address [address] [address] Phone Care Team Providers Care Operations Lieutenant Name Role Phone Carmina Varela MD Primary [...] MUST ADMINISTER WITH EVENING MEAL 3 Active furosemide (LASIX) 40 MG tablet See Instructions, 2 tab in AM and 1 tab in PM, Refills 0, Maintenance, 11/13/20 19:22:00 EDT, Instructions Replace Required Details, Partial fill upon patient request if the prescription is for a schedule II opioid drug. 1 Active citalopram (CeleXA) 40 MG tablet Take 0.5 tablets (20 mg total) by mouth 1 (one) time each day 90 tablet 3 5 Active Active Problems Problem Noted Date Diagnosed Date Stage 3b chronic kidney disease 12/05/2022 Encounters Date Type Department Care Team Description 01/31/2025 10:10 AM EDT Office Visit [facility], [address] [place] [address] Marino Hopson MD Stage 3b [...] Orientation Not on file Plan of Treatment Health Maintenance Due Date Last Done Comments Breast Cancer Screening 1955 Colorectal Cancer Screening: Annual FOBT 2003 Colorectal Cancer Screening: Colonoscopy 2003 Colorectal Cancer Screening: Sigmoidoscopy 2003 Diabetes: Ophthalmology Exam 04/21/2023 Diabetes: Pedal Pulse Checked 04/21/2023 Diabetes: Sensory Foot Exam 04/21/2023 Diabetes: Visual Foot Exam 04/21/2023 Influenza Vaccine (#1) 2024 , 03/15/2022, 01/03/2021, Additional history exists Diabetes: Hemoglobin A1C 03/02/2025 025, 11/30/2024, 04/21/2024, Additional history exists Pneumococcal Vaccine: 50+ Years (4 of 4 - PCV20 or PCV21) 09/30/2026 09/30/2021, 01/07/2017, 12/22/2011, Additional history exists Hepatitis B Vaccine Aged Out No longe r eligible based on patient's age to complete this topic Insurance [employer] Dual SNP ([id number]) [place] [phone] Care Teams Operations Lieutenant Relationship Specialty Start Date End Date Carmina Varela MD [address] [place] [phone] PCP - General 12/03/22
== END ==
LOC: HO.CARD 08:44
PROVIDERS: Visit Provider Internal Medicine Cardiovascular Disease
DX: I50.22 Chronic systolic (congestive) heart failure (principal)
CPT/HCPCS: 93306

== ENCOUNTER → 2025-04-24 08:51 | Outpatient (BNV) | payer OTHER, SELFPAY ==
[2021-10-15 11:10] VITALS: BP 110/70; BMI 46.0
== END ==
PROVIDERS: Visit Provider Internal Medicine
DX: I35.0 Nonrheumatic aortic (valve) stenosis (principal)
CPT/HCPCS: 93306